=== PATIENT | female | born 1985 | race Caucasian/White ===

== ENCOUNTER 2017-11-10 15:40 | Emergency (ER) | payer OTHER ==
--- OUTSIDE RECORDS SUMMARY | 2017-11-10 15:42 | XMS REPORT | Clinical Summary ---
:1985 Author Organization [facility] Address [address] [place] [address] Care Team Providers Name Role Phone Kit Hayes PA-C Primary Care Provider Allergies Active Allergy Reactions Severity Noted Date Comments Levofloxacin 04/09/2017 Bupropion Hcl 04/09/2017 Current Medications Prescription Sig. Disp. Refills Start Date End Date Status traMADol (ULTRAM) 50 Take 1 tablet 15 tablet 0 04/09/2017 04/24/2017 mg tablet (50 mg total) by mouth every 6 (six) hours as needed for moderate pain for up to 15 days. ibuprofen Take 1 tablet 15 tablet 0 04/09/2017 04/14/2017 (ADVIL,MOTRIN) 800 MG (800 mg total) tablet by mouth every 8 (eight) hours as needed for mild pain for up to 5 days. Active Problems Not on file Encounters Date Type Specialty Care Team Description 04/09/2017 Emergency Emergency Medicine Kishor Mckeon Abdominal pain, unspecified location (Primary Dx); MD Clay Vaginal bleeding after 11/09/2016 Social History Tobacco Use Types Packs/Day Years Used Date Never Smoker Alcohol Use Drinks/Week oz/Week Comments No Sex Assigned at Date Recorded Not on file Last Filed Vital Signs Vital Sign Reading Time Taken Blood Pressure 117/72 04/09/2017 6:15 AM CDT Pulse 76 04/09/2017 6:15 AM CDT Temperature 36.8 C (98.2 F) 04/09/2017 6:07 AM CDT Respiratory Rate 16 04/09/2017 1:41 AM CDT Oxygen Saturation 98% 04/09/2017 6:15 AM CDT Inhaled Oxygen Concentration - - Weight - - Height 172.7 cm (5' 8") 04/09/2017 1:42 AM CDT Body Mass Index - - Plan of Treatment Health Maintenance Due Date Last Done Comments PAP SMEAR 2006 INFLUENZA VACCINE 03/21/2017 Results US Pelvic Transabdominal (04/09/2017 5:28 AM) Specimen Performing Laboratory [facility] [address] [place] [address] Narrative Examination:US PELVIC TRANSABDOMINAL, US PELVIC TRANSVAGINAL Clinical History: Non-OB evaluation of vaginal Bleeding, Torsion of Ovary, left ovarian cystworsening pain Comparison: None. Findings: Transabdominal and transvaginal pelvic ultrasound was performed. The uterus measured 5.2 x 5.6 x 3.7 cm. It is heterogeneous but no discrete measurable fibroid is seen. Endometrial side measures 0.4 cm. Right ovary measured 2.1 x 1.9 x 1.5 cm. The left ovary measures 2.5 x 2.0 x 1.6 cm. No adnexal mass or free fluid is seen. There is normal vascular flow seen in both ovaries. IMPRESSION: 1. No evidence of torsion. 2. Heterogeneous uterus but no discrete measurable fibroid is seen. [facility]-[id number] Procedure Note Interface, Radiology Results [facility] - 04/09/2017 5:38 AM CDT Examination: US PELVIC TRANSABDOMINAL, US PELVIC TRANSVAGINAL Clinical History: Non-OB evaluation of vaginal Bleeding, Torsion of Ovary, left ovarian cyst worsening pain Comparison: None. Findings: Transabdominal and transvaginal pelvic ultrasound was performed. The uterus measured 5.2 x 5.6 x 3.7 cm. It is heterogeneous but no discrete measurable fibroid is seen. Endometrial side measures 0.4 cm. Right ovary measured 2.1 x 1.9 x 1.5 cm. The left ovary measures 2.5 x 2.0 x 1.6 cm. No adnexal mass or free fluid is seen. There is normal vascular flow seen in both ovaries. IMPRESSION: 1. No evidence of torsion. 2. Heterogeneous uterus but no discrete measurable fibroid is seen. [facility]-[id number] US Pelvic Transvaginal (04/09/2017 5:28 AM) Specimen [facility]forming [facility] [address] [place] [address] Narrative Examination:US PELVIC TRANSABDOMINAL, US PELVIC TRANSVAGINAL Clinical History: Non-OB evaluation of vaginal Bleeding, Torsion of Ovary, left ovarian cystworsening pain Comparison: None. Findings: Transabdominal and transvaginal pelvic ultrasound was performed. The uterus measured 5.2 x 5.6 x 3.7 cm. It is heterogeneous but no discrete measurable fibroid is seen. Endometrial side measures 0.4 cm. Right ovary measured 2.1 x 1.9 x 1.5 cm. The left ovary measures 2.5 x 2.0 x 1.6 cm. No adnexal mass or free fluid is seen. There is normal vascular flow seen in both ovaries. IMPRESSION: 1. No evidence of torsion. 2. Heterogeneous uterus but no discrete measurable fibroid is seen. [facility]-[id number] Procedure Note Interface, Radiology Results Incoming - 04/09/2017 5:38 AM CDT Examination: US PELVIC TRANSABDOMINAL, US PELVIC TRANSVAGINAL Clinical History: Non-OB evaluation of vaginal Bleeding, Torsion of Ovary, left ovarian cyst worsening pain Comparison: None. Findings: Transabdominal and transvaginal pelvic ultrasound was performed. The uterus measured 5.2 x 5.6 x 3.7 cm. It is heterogeneous but no discrete measurable fibroid is seen. Endometrial side measures 0.4 cm. Right ovary measured 2.1 x 1.9 x 1.5 cm. The left ovary measures 2.5 x 2.0 x 1.6 cm. No adnexal mass or free fluid is seen. There is normal vascular flow seen in both ovaries. IMPRESSION: 1. No evidence of torsion. 2. Heterogeneous uterus but no discrete measurable fibroid is seen. [facility]-[id number] Urinalysis screen and microscopy, with reflex to culture (04/09/2017 2:01 AM) Component Value Ref Range Specimen site Clean catch Color, UA Red Appearance, UA Cloudy Specific gravity, UA 1.017 1.001 - 1.035 pH, UA 6.0 5.0 - 8.5 Protein, UA 2+ (A) Negative Glucose, UA Negative Negative Ketones, UA Negative Negative Bilirubin, UA Negative Negative Blood, UA Large (A) Negative Nitrite, UA Negative Negative Urobilinogen, UA <2.0 <2.0 Leukocyte esterase, UA Negative Negative Epithelial cells, UA 16 /HPF WBC, UA 5 (H) 0 - 4 /HPF RBC, UA >180 (H) 0 - 2 /HPF Bacteria, UA Few None seen Yeast, UA None seen Yeast with pseudohyphae, UA None seen Specimen Performing Laboratory Urine [facility] DEPARTMENT OF PATHOLOGY AND [facility] [address] [place] [address] Estimated GFR (04/09/2017 2:01 AM) Component Value Ref Range GFR Non Af Amer 83 mL/min/1.73 m2 GFR Af Amer >90 mL/min/1.73 m2 Comment: Chronic kidney disease: <60 mL/min/1.73m2 Kidney failure: <15 mL/min/1.73m2 The estimated GFR is calculated from the IDMS-traceable Modification of Diet in Renal Disease Equation. The accuracy of the calculation is poor when the creatinine is normal. Calculated values >90 mL/min/1.73m2 are not reported. This equation has not been validated in children (<18 years), women, the elderly (>70 years), or ethnic groups other than Caucasians and Americans. Specimen Performing Laboratory Plasma specimen [facility] DEPARTMENT OF PATHOLOGY AND GENOMIC MEDICINE [address] [place] [address] hCG qualitative, urine screen (04/09/2017 2:01 AM) Component Value Ref Range hCG qualitative, urine NegativeComment: Sensitivity of HCG test: 25 mIU/mL Specimen Performing Laboratory Urine [facility] DEPARTMENT OF PATHOLOGY AND [facility] [address] [place] [address] CBC with platelet and differential (04/09/2017 2:01 AM) Component Value Ref Range WBC 9.22 4.50 - 11.00 k/uL RBC 3.82 (L) 4.20 - 5.50 m/uL HGB 11.6 (L) 12.0 - 16.0 g/dL HCT 35.3 (L) 37.0 - 47.0 % MCV 92.4 82.0 - 100.0 fL MCH 30.4 27.0 - 34.0 pg MCHC 32.9 31.0 - 37.0 g/dL RDW - SD 42.5 37.0 - 55.0 fL MPV 9.3 8.8 - 13.2 fL Platelet count 305 150 - 400 k/uL Nucleated RBC 0.00 /100 WBC Neutrophils 48.2 39.0 - 69.0 % Lymphocytes 43.4 25.0 - 45.0 % Monocytes 5.5 0.0 - 10.0 % Eosinophils 2.2 0.0 - 5.0 % Basophils 0.5 0.0 - 1.0 % Immature granulocytes 0.2Comment: "Immature granulocytes" 0.0 - 1.0 % (promyelocytes, myelocytes, metamyelocytes) Specimen Performing Laboratory Blood [facility] DEPARTMENT OF PATHOLOGY AND [facility] [address] [place] [address] Comprehensive metabolic panel (04/09/2017 2:01 AM) Component Value Ref Range Sodium 139 135 - 148 mEq/L Potassium 3.8 3.5 - 5.0 mEq/L Chloride 104 98 - 112 mEq/L CO2 21 (L) 24 - 31 mEq/L Anion gap 14 7 - 15 mEq/L Comment: Starting from November , anion gap calculation no longer incorporates potassium. Please note the change. BUN 13 6 - 20 mg/dL Creatinine 0.8 0.5 - 0.9 mg/dL Glucose 93 65 - 99 mg/dL Calcium 9.7 8.3 - 10.2 mg/dL Protein 7.5 6.3 - 8.3 g/dL Comment: [place] 4.6-7.0 g/dL 1 week 4.4-7.6 g/dL 7 months-1year5.1-7.3 g/dL 1-2 years5.6-7.5 g/dL >3 years6.0-8.0 g/dL 18-150 6.3-8.3 g/dL Albumin 4.0 3.5 - 5.0 g/dL A/G ratio 1.1 0.7 - 3.8 Alkaline phosphatase 71 35 - 104 U/L AST 18 10 - 35 U/L ALT 14 5 - 50 U/L Total bilirubin <0.2 0.0 - 1.2 mg/dL Specimen Performing Laboratory Plasma specimen [facility] DEPARTMENT OF PATHOLOGY AND [facility] [address] [place] [address] Gram stain (04/09/2017 2:00 AM) Component Value Ref Range Gram stain result No WBC's Many Gram positive rods Comment: Specimen Information Specimen Source: Urine Specimen Site: See UA Specimen Performing Laboratory Urine [facility] DEPARTMENT OF PATHOLOGY AND [facility] [address] [place] [address] Urine culture (04/09/2017 2:00 AM) Component Value Ref Range Urine culture isolate Mixed Gram positive cristina 10-1 cfu/ml (A) Comment: Specimen Information Specimen Source: Urine Specimen Site: See UA Urine culture isolate Mixed Gram negative rods <10-1 cfu/ml (A) Specimen Performing Laboratory Urine [facility] DEPARTMENT OF PATHOLOGY AND GENOMIC MEDICINE [address] [place] [address] after 11/09/2016 Insurance Payer Benefit Plan / Group Subscriber ID Type Phone Address FOR LIFE xxxxxxxxx Home: [address] [facility] [phone] [address]
--- OUTSIDE RECORDS SUMMARY | 2017-11-10 15:43 | XMS REPORT ---
:1985 [facility] Address [address] [place] [address] [place] [address] Care Team Providers Name Role Phone BINTA FOLEY Unavailable Unavailable Problems This patient has no known problems. Allergies, Adverse Reactions, Alerts This patient has no known allergies or adverse reactions. Medications This patient has no known medications. Encounters Start End Encounter Admission Attending Care Care Encounter Date/Time Date/Time Type Type Clinicians Facility Department ID 2017-04-09 2017-04-09 Emergency [facility] [id number] 00:00:00 00:00:00 2017-04-09 2017-04-09 Emergency [facility] [id number] 00:00:00 00:00:00 2017-04-08 2017-04-08 [facility] [id number] 22:35:00 22:35:00 2017-04-08 2017-04-08 [facility] [id number] 00:00:00 00:00:00 Results Test Description Test Time Test Comments Text Results Atomic Results Result Comments HEMOGLOBIN A1C 2017-07-16 13:26:00 Test Item Value Reference Range Comments HEMOGLOBIN A1C (BEAKER) (test njuq=445) 5.2 % 4.3-6.1 CBC W/PLT COUNT & AUTO [id number] 09:42:00 Test Item Value Reference Range Comments WHITE BLOOD CELL COUNT (BEAKER) (test guvk=377) 8.3 K/ L 3.5-10.5 RED BLOOD CELL COUNT (BEAKER) (test kzsq=749) 3.47 M/ L 3.93-5.22 HEMOGLOBIN (BEAKER) (test jcfz=693) 10.3 GM/DL 11.2-15.7 HEMATOCRIT (BEAKER) (test ggfj=369) 32.8 % 34.1-44.9 MEAN CORPUSCULAR VOLUME (BEAKER) (test qqyp=176) 94.5 fL 79.4-94.8 MEAN CORPUSCULAR HEMOGLOBIN (BEAKER) (test 29.7 pg 25.6-32.2 rsqm=678) MEAN CORPUSCULAR HEMOGLOBIN CONC (BEAKER) (test 31.4 GM/DL 32.2-35.5 ibnp=614) RED CELL DISTRIBUTION WIDTH (BEAKER) (test 13.1 % 11.7-14.4 xule=807) PLATELET COUNT (BEAKER) (test wbsw=329) 284 K/CU MM 150-450 MEAN PLATELET VOLUME (BEAKER) (test qgsn=351) 9.7 fL 9.4-12.3 NUCLEATED RED BLOOD CELLS (BEAKER) (test 0 /100 WBC 0-0 kwzy=881) IMMATURE GRANULOCYTES-RELATIVE PERCENT (BEAKER) 0 % 0-1 (test cvkl=9439) (MANUAL DIFFERENTIAL)2017-07-16 09:42:00 Test Item Value Reference Range Comments NEUTROPHILS - REL (DIFF) (BEAKER) (test rsuk=6548) 36 % LYMPHOCYTES - REL (DIFF) (BEAKER) (test skow=6501) 53 % MONOCYTES - REL (DIFF) (BEAKER) (test cfwo=6022) 4 % EOSINOPHILS - REL (DIFF) (BEAKER) (test htcm=1113) 2 % BASOPHILS - REL (DIFF) (BEAKER) (test prcw=6869) 2 % ATYPICAL LYMPHOCYTE - REL (DIFF) (BEAKER) (test 3 % 0-0 xnfa=189) NEUTROPHILS - ABS (DIFF) (BEAKER) (test cmqe=3003) 2.99 K/ L 1.80-8.00 LYMPHOCYTES - ABS (DIFF) (BEAKER) (test lnwi=0002) 4.40 K/ L 1.48-4.50 MONOCYTES - ABS (DIFF) (BEAKER) (test owvk=7188) 0.33 K/ L 0.00-1.30 EOSINOPHILS - ABS (DIFF) (BEAKER) (test fqtm=3151) 0.17 K/ L 0.00-0.50 BASOPHILS - ABS (DIFF) (BEAKER) (test azhu=1499) 0.17 K/ L 0.00-0.20 ATYPICAL LYMPHOCYTES - ABS (DIFF) (BEAKER) (test 0.25 K/ L 0.00-0.00 rvoc=094) TOTAL COUNTED (BEAKER) (test kxgt=2173) 100 WBC MORPHOLOGY (BEAKER) (test kksw=887) Normal PLT MORPHOLOGY (BEAKER) (test tvyd=023) Normal RBC MORPHOLOGY (BEAKER) (test lget=078) Normal [id number] 07:11:00 Test Item Value Reference Range Comments MAGNESIUM (BEAKER) (test kdhi=496) 1.5 mg/dL 1.6-2.6 BASIC METABOLIC [id number] 07:11:00 Test Item Value Reference Range Comments SODIUM (BEAKER) (test 140 meq/L 136-145 xcqc=466) POTASSIUM (BEAKER) (test 3.6 meq/L 3.5-5.1 sfic=557) CHLORIDE (BEAKER) (test 119 meq/L 98-107 djws=247) CO2 (BEAKER) (test 16 meq/L 22-29 clea=494) BLOOD UREA NITROGEN 7 mg/dL 7-21 (BEAKER) (test tkpp=726) CREATININE (BEAKER) (test 0.59 mg/dL 0.57-1.25 otpy=102) GLUCOSE RANDOM (BEAKER) 89 mg/dL 70-105 (test vkwb=388) CALCIUM (BEAKER) (test 8.3 mg/dL 8.4-10.2 nwpt=467) EGFR (BEAKER) (test 118 mL/min/1.73 sq m ESTIMATED GFR IS NOT kmvd=9949) ACCURATE CREATININE CLEARANCE IN PREDICTING GLOMERULAR FILTRATION RATE. ESTIMATED GFR IS NOT APPLICABLE FOR DIALYSIS PATIENTS. LIPID [id number] 07:11:00 Test Item Value Reference Range Comments TRIGLYCERIDES (BEAKER) (test mkmz=119) 75 mg/dL CHOLESTEROL (BEAKER) (test mpwu=353) 173 mg/dL HDL CHOLESTEROL (BEAKER) (test rluw=603) 33 mg/dL LDL CHOLESTEROL CALCULATED (BEAKER) (test 125 mg/dL dxfm=866) Triglyceride Reference Range: Low Risk <150 Borderline 150- 199 High Risk 200-499 Very High Risk >=500Cholesterol Reference Range: Low Risk <200 Borderline 200-239 High Risk > 240HDL Cholesterol Reference Range: Low Risk >=60 High Risk <40LDL Cholesterol Reference Range: Optimal <100 Near Optimal 100-129 Borderline 130-159 High 160-189 Very High >=190TROPONIN [id number] 06:34:00 Test Item Value Reference Range Comments TROPONIN I (KRISTI) (test zzsx=672) < ng/mL 0.00-0.03 Troponin I (TnI) levels must be interpreted in the context of the presenting symptoms and the clinical findings. Elevated TnI levels indicate myocardial damage, but are not specific for ischemic heart disease. Elevated TnI levels are seen in patients with other cardiac conditions (including myocarditis and congestive heart failure), and slight TnI elevations occur in patients with other conditions, including sepsis, renal failure, acidosis, acute neurological disease, and persistent tachyarrhythmia.TROPONIN [id number] 23:58:00 Test Item Value Reference Range Comments TROPONIN I (KRISTI) (test pwuc=219) < ng/mL 0.00-0.03 Troponin I (TnI) levels must be interpreted in the context of the presenting symptoms and the clinical findings. Elevated TnI levels indicate myocardial damage, but are not specific for ischemic heart disease. Elevated TnI levels are seen in patients with other cardiac conditions (including myocarditis and congestive heart failure), and slight TnI elevations occur in patients with other conditions, including sepsis, renal failure, acidosis, acute neurological disease, and persistent tachyarrhythmia.
--- NOTE | 2017-11-10 16:23 | EDPHYS ---
Physician Documentation [facility] Name: Natasha Spann Age: 32 yrs Sex: Female : 1985 Arrival Date: 11/10/2017 Time: 15:47 Bed 16 Private MD: ED Physician Gregor Santo HPI: 11/10 16:06 This 32 yrs old Female presents to ER via Ambulatory with complaints of Flu kb Symptoms. 16:06 The patient presents with sore throat. The patient describes throat pain as constant. kb Onset: The symptoms/episode began/occurred last week. Severity of symptoms: At their worst the symptoms were moderate, in the emergency department the symptoms are unchanged. Modifying factors: The symptoms are alleviated by nothing, the symptoms are aggravated by swallowing, Patient's oral intake status: good Denies contact with similarly ill indivduals. Associated signs and symptoms: Pertinent positives: cough, flu-like symptoms, myalgias, Sore throat. The patient has not experienced similar symptoms in the past. The patient has not recently seen a physician. Historical: - Allergies: 15:52 Wellbutrin; ss 15:52 Levofloxacin; ss 15:52 bupropion HCl; ss - PMHx: 15:52 Anxiety; Depression; Endometrosis; Gastric Reflux; MRSA; osteomylitis; Ovarian cyst; ss Bipolar disorder; - PSHx: 15:52 Left BKA; muscle flap from back; ss - Immunization history:: Adult Immunizations unknown. - Social history:: Smoking status: Patient uses tobacco products, smokes one-half pack cigarettes per day. ROS: 16:06 Neck: Negative for injury, pain, and swelling, Cardiovascular: Negative for chest pain, kb palpitations, and edema, Abdomen/GI: Negative for abdominal pain, nausea, vomiting, diarrhea, and constipation, Back: Negative for injury and pain, MS/Extremity: Negative for injury and deformity, Skin: Negative for injury, rash, and discoloration, Neuro: Negative for headache, weakness, numbness, tingling, and seizure. 16:06 Constitutional: Positive for body aches, chills, fatigue, malaise, Negative for fever, poor PO intake, weight loss. 16:06 ENT: Positive for rhinorrhea, sore throat. 16:06 Respiratory: Positive for cough, Negative for dyspnea on exertion, hemoptysis, orthopnea, pleurisy, shortness of breath, sputum production, wheezing. Exam: 16:07 Constitutional: This is a well developed, well nourished patient who is awake, alert, kb and in no acute distress. Head/Face: Normocephalic, atraumatic. ENT: Nares patent. No nasal discharge, no septal abnormalities noted. Tympanic membranes are normal and external auditory canals are clear. Oropharynx with no redness, swelling, or masses, exudates, or evidence of obstruction, uvula midline. Mucous membranes moist. Neck: Trachea midline, no thyromegaly or masses palpated, and no cervical lymphadenopathy. Supple, full range of motion without nuchal rigidity, or vertebral point tenderness. No Meningismus. Chest/axilla: Normal chest wall appearance and motion. Nontender with no deformity. No lesions are appreciated. Cardiovascular: Regular rate and rhythm with a normal S1 and S2. No gallops, murmurs, or rubs. Normal PMI, no JVD. No pulse deficits. Respiratory: Lungs have equal breath sounds bilaterally, clear to auscultation and percussion. No rales, rhonchi or wheezes noted. No increased work of breathing, no retractions or nasal flaring. Abdomen/GI: Soft, non-tender, with normal bowel sounds. No distension or tympany. No guarding or rebound. No evidence of tenderness throughout. Skin: Warm, dry with normal turgor. Normal color with no rashes, no lesions, and no evidence of cellulitis. MS/ Extremity: Pulses equal, no cyanosis. Neurovascular intact. Full, normal range of motion. Neuro: Awake and alert, GCS 15, oriented to person, place, time, and situation. Cranial nerves II-XII grossly intact. Motor strength 5/5 in all extremities. Sensory grossly intact. Cerebellar exam normal. Normal gait. Vital Signs: 15:52 BP 126 / 87; Pulse 94; Resp 16; Temp 98.2(TE); Pulse Ox 100% on R/A; Weight 81.65 kg; ss Height 5 ft. 8 in. (172.72 cm); Pain 8/10; 16:40 BP 118 / 78; Pulse 91; Resp 18; Temp 97.9; Pulse Ox 99% on R/A; ph 15:52 Body Mass Index 27.37 (81.65 kg, 172.72 cm) MDM: 15:53 Patient medically screened. kb 16:07 Data reviewed: vital signs, nurses notes. Data interpreted: Pulse oximetry: on room air kb is 100 %. Interpretation: normal. 16:21 Counseling: I had a detailed discussion with the patient and/or guardian regarding: the kb historical points, exam findings, and any diagnostic results supporting the discharge/admit diagnosis, lab results, the need for outpatient follow up, a family practitioner, to return to the emergency department if symptoms worsen or persist or if there are any questions or concerns that arise at home. 11/10 15:54 Order name: Flu kb 11/10 15:54 Order name: Strep kb 11/10 16:19 Order name: Influenza Screen (A ; Complete Time: 16:20 EDMS 11/10 16:19 Order name: Group A Streptococcus Rapid Sc; Complete Time: 16:20 EDMS Administered Medications: No medications were administered Disposition: 17:54 Co-signature as Attending Physician, Gregor Santo MD. rn Disposition: 11/10/17 16:22 Discharged to Home. Impression: Acute pharyngitis. - Condition is Stable. - Discharge Instructions: Pharyngitis, Eaxy-nf-Rwje, Viral Infections, Cotr-Uj-Guqy. - Medication Reconciliation Form, Thank You Letter, Antibiotic Education, Prescription Opioid Use form. - Follow up: Emergency Department; When: As needed; Reason: Worsening of condition. Follow up: Private Physician; When: 2 - 3 days; Reason: Recheck today's complaints, Continuance of care, Re-evaluation by your physician. Signatures: Dispatcher [employer] EDReva Cuenca, HAND STRIPPER-C HAND STRIPPER-Gregor Goode MD MD rn Smirch, Shelby, RN RN ss Hall, Patricia, RN RN ph
--- NOTE | 2017-11-10 16:23 | ER ---
Nurse's Notes [facility] Name: Natasha Spann Age: 32 yrs Sex: Female : 1985 Arrival Date: 11/10/2017 Time: 15:47 Bed 16 Private MD: Diagnosis: Acute pharyngitis Presentation: 11/10 15:50 Presenting complaint: Patient states: sore throat and body aches that began 3 days ago. ss Unknown fever. Transition of care: patient was not received from another setting of care. Onset of symptoms was November 07, 2017. Care prior to arrival: None. 15:50 Method Of Arrival: Ambulatory ss 15:50 Acuity: EMILY 4 ss Historical: - Allergies: 15:52 Wellbutrin; ss 15:52 Levofloxacin; ss 15:52 bupropion HCl; ss - PMHx: 15:52 Anxiety; Depression; Endometrosis; Gastric Reflux; MRSA; osteomylitis; Ovarian cyst; ss Bipolar disorder; - PSHx: 15:52 Left BKA; muscle flap from back; ss - Immunization history:: Adult Immunizations unknown. - Social history:: Smoking status: Patient uses tobacco products, smokes one-half pack cigarettes per day. Screenin:14 Abuse screen: Denies threats or abuse. Denies injuries from another. Nutritional ph screening: No deficits noted. Tuberculosis screening: No symptoms or risk factors identified. Fall Risk None identified. Assessment: 16:00 General: Appears in no apparent distress. comfortable, well groomed, Behavior is calm, ph cooperative, appropriate for age, Reports fever for 2-3 days. Pain: Complains of pain in throat. Neuro: Level of Consciousness is awake, alert, obeys commands, Oriented to person, place, time, situation. Cardiovascular: Capillary refill < 3 seconds Patient's skin is warm and dry. Respiratory: Airway is patent Respiratory effort is even, unlabored, Respiratory pattern is regular, symmetrical, Breath sounds are clear bilaterally. Denies cough, shortness of breath. GI: No signs and/or symptoms were reported involving the gastrointestinal system. Derm: Skin is intact, is healthy with good turgor, Skin is pink, warm \T\ dry. Musculoskeletal: Circulation, motion, and sensation intact. Range of motion: intact in all extremities. Vital Signs: 15:52 BP 126 / 87; Pulse 94; Resp 16; Temp 98.2(TE); Pulse Ox 100% on R/A; Weight 81.65 kg; Height 5 ft. 8 in. (172.72 cm); Pain 8/10; 16:40 BP 118 / 78; Pulse 91; Resp 18; Temp 97.9; Pulse Ox 99% on R/A; ph 15:52 Body Mass Index 27.37 (81.65 kg, 172.72 cm) ED Course: 15:47 Patient arrived in ED. sb2 15:51 Triage completed. ss 15:52 Arm band placed on right wrist. ss 15:53 [facility]ales FNP-C [facility]. kb 15:53 Gregor Santo MD is Attending Physician. kb 16:10 Sylvia Wall, RN is Primary Nurse. ph 16:40 Patient has correct armband on for positive identification. Bed in low position. Call ph light in reach. Side rails up X 1. 16:43 No provider procedures requiring assistance completed. Patient did not have IV access ph during this emergency room visit. Administered Medications: No medications were administered Outcome: 16:22 Discharge ordered by MD. kb 16:43 Patient left the ED. ph 16:43 Discharged to home ambulatory. ph 16:43 Condition: good 16:43 Discharge instructions given to patient, Instructed on discharge instructions, follow up and referral plans. Demonstrated understanding of instructions, follow-up care. Signatures: Reva Morales FNP-C FNP-Ckb Smirch, Shelby, RN RN Sylvia Wall RN RN Mone Sr sb2
[2017-11-10 17:03] VITALS: BP 126/87; TEMP 98.2; O2SAT 100
== END 2017-11-10 16:43 | disposition home or self-care (01) ==
LOC: ER 15:40
DX: J02.9 Acute pharyngitis, unspecified (principal); F17.210 Nicotine dependence, cigarettes, uncomplicated; Z88.3 Allergy status to other anti-infective agents; Z88.8 Allergy status to other drugs, medicaments and biological substances; Z91.048 Other nonmedicinal substance allergy status
CPT/HCPCS: 87070; 87081; 87804; 99281

== ENCOUNTER 2017-11-13 | Emergency (ER) | payer OTHER ==
--- OUTSIDE RECORDS SUMMARY | 2017-11-13 14:59 | XMS REPORT | Clinical Summary ---
:1985 Author Organization [facility] Address [address] [place] [address] Care Team Providers Name Role Phone Kit [...] (Primary Dx); MD Clay Vaginal bleeding after 11/12/2016 Social History Tobacco Use Types Packs/Day Years [...] Transabdominal (04/09/2017 5:28 AM) Specimen Performing Laboratory [facility] [address] [place] [address] Narrative Examination:US PELVIC TRANSABDOMINAL, US PELVIC TRANSVAGINAL [...] but no discrete measurable fibroid is seen. [facility]-[id number] Procedure Note Interface, Radiology Results [facility] - 04/09/2017 5:38 AM CDT Examination: US [...] but no discrete measurable fibroid is seen. [facility]-[id number] US Pelvic Transvaginal (04/09/2017 5:28 AM) Specimen Performing Laboratory [facility] [address] [place] [address] Narrative Examination:US PELVIC TRANSABDOMINAL, US PELVIC TRANSVAGINAL [...] but no discrete measurable fibroid is seen. [facility]-[id number] Procedure Note Interface, Radiology Results Incoming - [...] but no discrete measurable fibroid is seen. [facility]-[id number] Urinalysis screen and microscopy, with reflex to [...] UA None seen Specimen Performing Laboratory Urine [facility] DEPARTMENT OF PATHOLOGY AND [facility] [address] [place] [phone] Estimated GFR (04/09/2017 2:01 AM) Component Value [...] and Americans. Specimen Performing Laboratory Plasma specimen [facility] DEPARTMENT OF PATHOLOGY AND GENOMIC MEDICINE [address] [place] [address] hCG qualitative, urine screen (04/09/2017 2:01 AM) Component Value Ref Range hCG qualitative, urine NegativeComment: Sensitivity of HCG test: 25 mIU/mL Specimen Performing Laboratory Urine [facility] DEPARTMENT OF PATHOLOGY AND [facility] [address] [place] [address] CBC with platelet and differential (04/09/2017 2:01 [...] (promyelocytes, myelocytes, metamyelocytes) Specimen Performing Laboratory Blood [facility] DEPARTMENT OF PATHOLOGY AND [facility] [address] [place] [address] Comprehensive metabolic panel (04/09/2017 2:01 AM) Component [...] Protein 7.5 6.3 - 8.3 g/dL Comment: [place] 4.6-7.0 g/dL 1 week 4.4-7.6 g/dL 7 months-1year5.1-7.3 g/dL 1-2 years5.6-7.5 g/dL >3 years6.0-8.0 g/dL 18-150 6.3-8.3 g/dL Albumin 4.0 3.5 - 5.0 g/dL A/G ratio 1.1 0.7 - 3.8 Alkaline phosphatase 71 35 - 104 U/L AST 18 10 - 35 U/L ALT 14 5 - 50 U/L Total bilirubin <0.2 0.0 - 1.2 mg/dL Specimen Performing Laboratory Plasma specimen [facility] DEPARTMENT OF PATHOLOGY AND [facility] [address] [place] [address] Gram stain (04/09/2017 2:00 AM) Component Value Ref Range Gram stain result No WBC's Many Gram positive rods Comment: Specimen Information Specimen Source: Urine Specimen Site: See UA Specimen Performing Laboratory Urine [facility] DEPARTMENT OF PATHOLOGY AND [facility] [address] [place] [address] Urine culture (04/09/2017 2:00 AM) Component Value Ref Range Urine culture isolate Mixed Gram positive cristina 10-1 cfu/ml (A) Comment: Specimen Information Specimen Source: Urine Specimen Site: See UA Urine culture isolate Mixed Gram negative rods <10-1 cfu/ml (A) Specimen Performing Laboratory Urine [facility] DEPARTMENT OF PATHOLOGY AND GENOMIC MEDICINE [address] [place] [address] after 11/12/2016 Insurance Payer Benefit Plan / Group Subscriber ID Type Phone Address FOR LIFE xxxxxxxxx Home: [address] [facility] [phone] [address]
--- OUTSIDE RECORDS SUMMARY | 2017-11-13 15:00 | XMS REPORT ---
:1985 Author Organization [facility] Address [address] [place] [address] [place] [address] Care Team Providers Name Role Phone BINTA FOLEY Unavailable Unavailable Problems This patient has no known problems. Allergies, Adverse Reactions, Alerts This patient has no known allergies or adverse reactions. Medications This patient has no known medications. Encounters Start End Encounter Admission Attending Care Care Encounter Date/Time Date/Time Type Type Clinicians Facility Department ID 2017-04-09 2017-04-09 Emergency [facility] [id number] 00:00:00 00:00:00 2017-04-09 2017-04-09 Emergency [facility] [id number] 00:00:00 00:00:00 2017-04-08 2017-04-08 [facility] [id number] 22:35:00 22:35:00 2017-04-08 2017-04-08 [facility] [id number] 00:00:00 00:00:00 Results Test Description Test Time Test Comments Text Results Atomic Results Result Comments HEMOGLOBIN A1C 2017-07-16 13:26:00 Test Item Value Reference Range Comments HEMOGLOBIN A1C (BEAKER) (test atoy=229) 5.2 % 4.3-6.1 CBC W/PLT COUNT & AUTO [id number] 09:42:00 Test Item Value Reference Range Comments WHITE BLOOD CELL COUNT (BEAKER) (test kzvz=282) 8.3 K/ L 3.5-10.5 RED BLOOD CELL COUNT (BEAKER) (test rxjh=437) 3.47 M/ L 3.93-5.22 HEMOGLOBIN (BEAKER) (test hfoc=927) 10.3 GM/DL 11.2-15.7 HEMATOCRIT (BEAKER) (test jfzi=872) 32.8 % 34.1-44.9 MEAN CORPUSCULAR VOLUME (BEAKER) (test tcxi=613) 94.5 fL 79.4-94.8 MEAN CORPUSCULAR HEMOGLOBIN (BEAKER) (test 29.7 pg 25.6-32.2 nghm=620) MEAN CORPUSCULAR HEMOGLOBIN CONC (BEAKER) (test 31.4 GM/DL 32.2-35.5 eulr=854) RED CELL DISTRIBUTION WIDTH (BEAKER) (test 13.1 % 11.7-14.4 jiwq=980) PLATELET COUNT (BEAKER) (test wjqu=963) 284 K/CU MM 150-450 MEAN PLATELET VOLUME (BEAKER) (test oxvs=865) 9.7 fL 9.4-12.3 NUCLEATED RED BLOOD CELLS (BEAKER) (test 0 /100 WBC 0-0 lqgt=649) IMMATURE GRANULOCYTES-RELATIVE PERCENT (BEAKER) 0 % 0-1 (test kkwj=3446) (MANUAL DIFFERENTIAL)2017-07-16 09:42:00 Test Item Value Reference Range Comments NEUTROPHILS - REL (DIFF) (BEAKER) (test eojp=7171) 36 % LYMPHOCYTES - REL (DIFF) (BEAKER) (test tgro=9868) 53 % MONOCYTES - REL (DIFF) (BEAKER) (test pgrs=2394) 4 % EOSINOPHILS - REL (DIFF) (BEAKER) (test dqfk=5019) 2 % BASOPHILS - REL (DIFF) (BEAKER) (test qbio=4781) 2 % ATYPICAL LYMPHOCYTE - REL (DIFF) (BEAKER) (test 3 % 0-0 ejiv=816) NEUTROPHILS - ABS (DIFF) (BEAKER) (test ltxm=3803) 2.99 K/ L 1.80-8.00 LYMPHOCYTES - ABS (DIFF) (BEAKER) (test zmyz=8467) 4.40 K/ L 1.48-4.50 MONOCYTES - ABS (DIFF) (BEAKER) (test wnhn=9273) 0.33 K/ L 0.00-1.30 EOSINOPHILS - ABS (DIFF) (BEAKER) (test zzqk=2746) 0.17 K/ L 0.00-0.50 BASOPHILS - ABS (DIFF) (BEAKER) (test gpfg=3068) 0.17 K/ L 0.00-0.20 ATYPICAL LYMPHOCYTES - ABS (DIFF) (BEAKER) (test 0.25 K/ L 0.00-0.00 ilbx=453) TOTAL COUNTED (BEAKER) (test mrql=8386) 100 WBC MORPHOLOGY (BEAKER) (test biko=488) Normal PLT MORPHOLOGY (BEAKER) (test zcwy=849) Normal RBC MORPHOLOGY (BEAKER) (test jryc=678) Normal [id number] 07:11:00 Test Item Value Reference Range Comments MAGNESIUM (BEAKER) (test uwhq=318) 1.5 mg/dL 1.6-2.6 BASIC METABOLIC [id number] 07:11:00 Test Item Value Reference Range Comments SODIUM (BEAKER) (test 140 meq/L 136-145 bnkf=571) POTASSIUM (BEAKER) (test 3.6 meq/L 3.5-5.1 vqqu=487) CHLORIDE (BEAKER) (test 119 meq/L 98-107 pdyh=672) CO2 (BEAKER) (test 16 meq/L 22-29 dzsz=011) BLOOD UREA NITROGEN 7 mg/dL 7-21 (BEAKER) (test kcby=638) CREATININE (BEAKER) (test 0.59 mg/dL 0.57-1.25 bmlf=629) GLUCOSE RANDOM (BEAKER) 89 mg/dL 70-105 (test mtan=858) CALCIUM (BEAKER) (test 8.3 mg/dL 8.4-10.2 uttc=370) EGFR (BEAKER) (test 118 mL/min/1.73 sq m ESTIMATED GFR IS NOT fosy=6271) ACCURATE CREATININE CLEARANCE IN PREDICTING GLOMERULAR FILTRATION RATE. ESTIMATED GFR IS NOT APPLICABLE FOR DIALYSIS PATIENTS. LIPID [id number] 07:11:00 Test Item Value Reference Range Comments TRIGLYCERIDES (BEAKER) (test bluj=063) 75 mg/dL CHOLESTEROL (BEAKER) (test kozi=888) 173 mg/dL HDL CHOLESTEROL (BEAKER) (test voys=684) 33 mg/dL LDL CHOLESTEROL CALCULATED (BEAKER) (test 125 mg/dL mfgu=676) Triglyceride Reference Range: Low Risk <150 Borderline 150- 199 High Risk 200-499 Very High Risk >=500Cholesterol Reference Range: Low Risk <200 Borderline 200-239 High Risk > 240HDL Cholesterol Reference Range: Low Risk >=60 High Risk <40LDL Cholesterol Reference Range: Optimal <100 Near Optimal 100-129 Borderline 130-159 High 160-189 Very High >=190TROPONIN [id number] 06:34:00 Test Item Value Reference Range Comments TROPONIN I (KRISTI) (test hyem=915) < ng/mL 0.00-0.03 Troponin I (TnI) levels [...] acidosis, acute neurological disease, and persistent tachyarrhythmia.TROPONIN [id number] 23:58:00 Test Item Value Reference Range Comments TROPONIN I (KRISTI) (test tqlk=526) < ng/mL 0.00-0.03 Troponin I (TnI) levels [...]
--- NOTE | 2017-11-13 16:05 | ER ---
Nurse's Notes [facility] Name: Natasha Spann Age: 32 yrs Sex: Female : 1985 Arrival Date: 11/13/2017 Time: 15:00 Bed 11 Private MD: Diagnosis: Abrasion of lower leg Presentation: 11/13 15:11 Presenting complaint: Patient states: i noticed this morning, i have a wound on my L hj leg, it is bleeding and draining; denies fever and chills;. Transition of care: patient was not received from another setting of care. Onset of symptoms was November 13, 2017. Care prior to arrival: None. 15:11 Method Of Arrival: Ambulatory hj 15:11 Acuity: EMILY 4 hj Triage Assessment: 15:13 General: Appears in no apparent distress. uncomfortable, Behavior is calm, cooperative, hj appropriate for age. Pain: Complains of pain in left leg Pain currently is 8 out of 10 on a pain scale. CUT OFF [place] [employer]: 15:13 LMP 10/28/2017 Historical: - Allergies: 15:12 bupropion HCl; hj 15:12 Levofloxacin; hj 15:12 Wellbutrin; hj - Home Meds: 15:12 aripiprazole 15 mg Oral tab 1 tab nightly [Active]; duloxetine 30 mg Oral cpDR 1 cap hj once daily [Active]; hydroxyzine HCl 25 mg Oral tab 4 times per day [Active]; omeprazole 40 mg Oral cpDR 1 cap once daily [Active]; propranolol 20 mg Oral tab 1 tab 2 times per day [Active]; topiramate 100 mg Oral tab 1 tab 2 times per day [Active]; trazodone 150 mg Oral tab 1 tab night prn [Active]; - PMHx: 15:12 Anxiety; Bipolar disorder; Depression; Endometrosis; Gastric Reflux; MRSA; hj osteomylitis; Ovarian cyst; - PSHx: 15:12 Left BKA; muscle flap from back; hj - Immunization history:: Pneumococcal vaccine is not up to date, Flu vaccine is not up to date. - Social history:: Smoking status: Patient uses tobacco products, smokes one-half pack cigarettes per day. Screenin:01 Abuse screen: Denies threats or abuse. Nutritional screening: No deficits noted. kb1 Tuberculosis screening: No symptoms or risk factors identified. Fall Risk None identified. Assessment: 16:01 General: Appears in no apparent distress. Behavior is calm, cooperative. Pain: kb1 Complains of pain in left stump. Neuro: Level of Consciousness is awake, alert, obeys commands, Oriented to person, place, time, situation. Cardiovascular: Patient's skin is warm and dry. Respiratory: Airway is patent. GI: No signs and/or symptoms were reported involving the gastrointestinal system. : No signs and/or symptoms were reported regarding the genitourinary system. Derm: No S/S of infection noted. Reports "drainage" from left stump. Vital Signs: 15:13 BP 115 / 67; Pulse 83; Resp 18; Temp 98.8(TE); Pulse Ox 98% on R/A; Weight 81.65 kg; hj Height 5 ft. 8 in. (172.72 cm); Pain 8/10; 15:13 Body Mass Index 27.37 (81.65 kg, 172.72 cm) ED Course: 15:00 Patient arrived in ED. rg4 15:11 Triage completed. 15:13 Arm band placed on left wrist. 15:39 Jamal Rodas NP is PHCP. pm1 15:39 Ole Epstein MD is Attending Physician. pm1 16:00 Ursula Lawson RN is Primary Nurse. kb1 16:01 Patient has correct armband on for positive identification. Call light in reach. kb1 sitting in chair, wheels locked. 16:01 No provider procedures requiring assistance completed. Patient did not have IV access kb1 during this emergency room visit. 17:13 Crutch training done. kb1 Administered Medications: No medications were administered Outcome: 16:04 Discharge ordered by . pm1 17:13 Discharged to home ambulatory, with crutches. kb1 17:13 Condition: stable 17:13 Discharge instructions given to patient, Instructed on discharge instructions, follow up and referral plans. medication usage, crutch walking, Demonstrated understanding of instructions, follow-up care, crutch walking, Prescriptions given X 1. 17:14 Patient left the ED. kb1 Signatures: Shawn Beltran RN RN Jamal Rodas NP CLERK SPECIALIST pm1 Giuliana Wilcox rg4 Ursula Lawson RN RN kb1 Corrections: (The following items were deleted from the chart) 15:14 15:13 Pulse 83bpm; Resp 18bpm; Pulse Ox 98% RA; Temp 98.8F Temporal; 81.65 kg; Height 5 hj ft. 8 in.; BMI: 27.3; Pain 8/10; hj 17:14 17:13 Discharged to home ambulatory, with crutches, kb1 kb1
--- NOTE | 2017-11-13 16:05 | EDPHYS ---
Physician Documentation [facility] Name: Natasha Spann Age: 32 yrs Sex: Female : 1985 Arrival Date: 11/13/2017 Time: 15:00 Bed 11 Private MD: ED Physician Ole Epstein HPI: 11/13 17:00 This 32 yrs old Female presents to ER via Ambulatory with complaints of pm1 Abscess. 17:00 The patient presents with an abscess of the left BKA. Description: draining, bleeding. pm1 Onset: The symptoms/episode began/occurred this morning. Possible cause(s): unknown. Associated signs and symptoms: Pertinent positives: discharge, Pertinent negatives: erythema, fever, swelling. Modifying factors: the symptoms are alleviated by nothing, the symptoms are aggravated by touching. Severity of symptoms: in the emergency department the symptoms are unchanged. The patient has not experienced similar symptoms in the past. The patient has not recently seen a physician. Patient reports bleeding and discharge from below knee amputation stump. Patient denies any injury. 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 Historical: - Allergies: 15:12 bupropion HCl; hj 15:12 Levofloxacin; hj 15:12 Wellbutrin; hj - Home Meds: 15:12 aripiprazole 15 mg Oral tab 1 tab nightly [Active]; duloxetine 30 mg Oral cpDR 1 cap hj once daily [Active]; hydroxyzine HCl 25 mg Oral tab 4 times per day [Active]; omeprazole 40 mg Oral cpDR 1 cap once daily [Active]; propranolol 20 mg Oral tab 1 tab 2 times per day [Active]; topiramate 100 mg Oral tab 1 tab 2 times per day [Active]; trazodone 150 mg Oral tab 1 tab night prn [Active]; - PMHx: 15:12 Anxiety; Bipolar disorder; Depression; Endometrosis; Gastric Reflux; MRSA; hj osteomylitis; Ovarian cyst; - PSHx: 15:12 Left BKA; muscle flap from back; hj - Immunization history:: Pneumococcal vaccine is not up to date, Flu vaccine is not up to date. - Social history:: Smoking status: Patient uses tobacco products, smokes one-half pack cigarettes per day. ROS: 17:00 Constitutional: Negative for fever, chills, and weight loss, Eyes: Negative for injury, pm1 pain, redness, and discharge, ENT: Negative for injury, pain, and discharge, Neck: Negative for injury, pain, and swelling, Cardiovascular: Negative for chest pain, palpitations, and edema, Respiratory: Negative for shortness of breath, cough, wheezing, and pleuritic chest pain, Abdomen/GI: Negative for abdominal pain, nausea, vomiting, diarrhea, and constipation, Back: Negative for injury and pain, : Negative for injury, bleeding, discharge, and swelling, MS/Extremity: Negative for injury and deformity. 17:00 Neuro: Negative for headache, weakness, numbness, tingling, and seizure. 17:00 Skin: Positive for abscess, of the left BKA stump. Exam: 17:00 Constitutional: This is a well developed, well nourished patient who is awake, alert, pm1 and in no acute distress. Head/Face: Normocephalic, atraumatic. Neck: Trachea midline, no thyromegaly or masses palpated, and no cervical lymphadenopathy. Supple, full range of motion without nuchal rigidity, or vertebral point tenderness. No Meningismus. Chest/axilla: Normal chest wall appearance and motion. Nontender with no deformity. No lesions are appreciated. Cardiovascular: Regular rate and rhythm with a normal S1 and S2. No gallops, murmurs, or rubs. Normal PMI, no JVD. No pulse deficits. Respiratory: Lungs have equal breath sounds bilaterally, clear to auscultation and percussion. No rales, rhonchi or wheezes noted. No increased work of breathing, no retractions or nasal flaring. Abdomen/GI: Soft, non-tender, with normal bowel sounds. No distension or tympany. No guarding or rebound. No evidence of tenderness throughout. Back: No spinal tenderness. No costovertebral tenderness. Full range of motion. 17:00 Skin: abscess, not appreciated, cellulitis, is not appreciated, injury, abrasion(s), very small abrasion noted, of the left below knee amputation stump, no redness or warmth. 17:00 Neuro: Orientation: is normal, Motor: is normal, Sensation: is normal, no obvious gross deficits. Vital Signs: 15:13 BP 115 / 67; Pulse 83; Resp 18; Temp 98.8(TE); Pulse Ox 98% on R/A; Weight 81.65 kg; hj Height 5 ft. 8 in. (172.72 cm); Pain 8/10; 15:13 Body Mass Index 27.37 (81.65 kg, 172.72 cm) MDM: 15:40 Patient medically screened. pm1 16:03 Data reviewed: vital signs. Data interpreted: Pulse oximetry: on room air is 98 %. pm1 Interpretation: normal. Counseling: I had a detailed discussion with the patient and/or guardian regarding: the historical points, exam findings, and any diagnostic results supporting the discharge/admit diagnosis, the need for outpatient follow up, a general surgeon, PCP, to return to the emergency department if symptoms worsen or persist or if there are any questions or concerns that arise at home. 16:10 ED course: Will discharge patient home on crutches to promote healing of abrasion from pm1 knee prosthesis. 11/13 16:06 Order name: Crutches; Complete Time: 17:13 pm1 Administered Medications: No medications were administered Disposition: 11/14 06:51 Co-signature as Attending Physician, Ole Epstein MD I agree with the assessment and imelda plan of care. Disposition: 11/13/17 16:04 Discharged to Home. Impression: Abrasion of lower leg. - Condition is Stable. - Discharge Instructions: Abrasion. - Prescriptions for Bactrim DS 800- 160 mg Oral Tablet - take 1 tablet by ORAL route every 12 hours for 10 days; 20 tablet. - Work release form, Medication Reconciliation Form, Thank You Letter, Antibiotic Education form. - Follow up: Emergency Department; When: As needed; Reason: Worsening of condition. Follow up: Private Physician; When: 2 - 3 days; Reason: Recheck today's complaints, Continuance of care, Re-evaluation by your physician. - Problem is new. - Symptoms have improved. Signatures: Ole Epstein MD MD cha Joaquin, Henry, RN RN Jamal Rodas, REMIGIO DRY CLIPPER TENDER pm1 Ursula Lawson RN RN kb1
== END 2017-11-13 17:14 | disposition home or self-care (01) ==
CPT/HCPCS: 99283

== ENCOUNTER 2017-12-06 08:24 | Emergency (ER) | payer SELFPAY ==
--- OUTSIDE RECORDS SUMMARY | 2017-12-06 08:26 | XMS REPORT ---
:1985 Author Organization [facility] Address [address] [place] [address] Care Team Providers Name Role Phone BINTA FOLEY Unavailable Unavailable Problems This patient has no known problems. Allergies, Adverse Reactions, Alerts This patient has no known allergies or adverse reactions. Medications This patient has no known medications. Encounters Start End Encounter Admission Attending Care Care Encounter Date/Time Date/Time Type Type Clinicians Facility Department ID 2017-04-09 2017-04-09 Emergency [facility] [id number] 00:00:00 00:00:00 2017-04-09 2017-04-09 [facility] [id number] 00:00:00 00:00:00 2017-04-08 2017-04-08 [facility] [id number] 22:35:00 22:35:00 2017-04-08 2017-04-08 [facility] [id number] 00:00:00 00:00:00 Results Test Description Test Time Test Comments Text Results Atomic Results Result Comments HEMOGLOBIN A1C 2017-07-16 13:26:00 Test Item Value Reference Range Comments HEMOGLOBIN A1C (BEAKER) (test aopm=943) 5.2 % 4.3-6.1 CBC W/PLT COUNT & AUTO [id number] 09:42:00 Test Item Value Reference Range Comments WHITE BLOOD CELL COUNT (BEAKER) (test irbd=798) 8.3 K/ L 3.5-10.5 RED BLOOD CELL COUNT (BEAKER) (test pidv=492) 3.47 M/ L 3.93-5.22 HEMOGLOBIN (BEAKER) (test yrmj=606) 10.3 GM/DL 11.2-15.7 HEMATOCRIT (BEAKER) (test icpu=068) 32.8 % 34.1-44.9 MEAN CORPUSCULAR VOLUME (BEAKER) (test jwsb=881) 94.5 fL 79.4-94.8 MEAN CORPUSCULAR HEMOGLOBIN (BEAKER) (test 29.7 pg 25.6-32.2 lxxc=383) MEAN CORPUSCULAR HEMOGLOBIN CONC (BEAKER) (test 31.4 GM/DL 32.2-35.5 bcbq=471) RED CELL DISTRIBUTION WIDTH (BEAKER) (test 13.1 % 11.7-14.4 xacf=296) PLATELET COUNT (BEAKER) (test gjxp=541) 284 K/CU MM 150-450 MEAN PLATELET VOLUME (BEAKER) (test eolg=829) 9.7 fL 9.4-12.3 NUCLEATED RED BLOOD CELLS (BEAKER) (test 0 /100 WBC 0-0 essb=999) IMMATURE GRANULOCYTES-RELATIVE PERCENT (BEAKER) 0 % 0-1 (test cyfr=9411) (MANUAL DIFFERENTIAL)2017-07-16 09:42:00 Test Item Value Reference Range Comments NEUTROPHILS - REL (DIFF) (BEAKER) (test zcod=7912) 36 % LYMPHOCYTES - REL (DIFF) (BEAKER) (test lnmx=5699) 53 % MONOCYTES - REL (DIFF) (BEAKER) (test wjfk=7580) 4 % EOSINOPHILS - REL (DIFF) (BEAKER) (test bbej=1175) 2 % BASOPHILS - REL (DIFF) (BEAKER) (test ooxn=3598) 2 % ATYPICAL LYMPHOCYTE - REL (DIFF) (BEAKER) (test 3 % 0-0 fkwt=274) NEUTROPHILS - ABS (DIFF) (BEAKER) (test rgis=4657) 2.99 K/ L 1.80-8.00 LYMPHOCYTES - ABS (DIFF) (BEAKER) (test iqoo=2593) 4.40 K/ L 1.48-4.50 MONOCYTES - ABS (DIFF) (BEAKER) (test yewm=5605) 0.33 K/ L 0.00-1.30 EOSINOPHILS - ABS (DIFF) (BEAKER) (test oyfu=7338) 0.17 K/ L 0.00-0.50 BASOPHILS - ABS (DIFF) (BEAKER) (test jyxc=9447) 0.17 K/ L 0.00-0.20 ATYPICAL LYMPHOCYTES - ABS (DIFF) (BEAKER) (test 0.25 K/ L 0.00-0.00 wycm=042) TOTAL COUNTED (BEAKER) (test newr=3078) 100 WBC MORPHOLOGY (BEAKER) (test ytsu=803) Normal PLT MORPHOLOGY (BEAKER) (test jlvx=722) Normal RBC MORPHOLOGY (BEAKER) (test tozq=663) Normal [id number] 07:11:00 Test Item Value Reference Range Comments MAGNESIUM (BEAKER) (test rsuq=696) 1.5 mg/dL 1.6-2.6 BASIC METABOLIC [id number] 07:11:00 Test Item Value Reference Range Comments SODIUM (BEAKER) (test 140 meq/L 136-145 lpbu=264) POTASSIUM (BEAKER) (test 3.6 meq/L 3.5-5.1 vanq=168) CHLORIDE (BEAKER) (test 119 meq/L 98-107 pkeg=665) CO2 (BEAKER) (test 16 meq/L 22-29 butf=941) BLOOD UREA NITROGEN 7 mg/dL 7-21 (BEAKER) (test uenc=541) CREATININE (BEAKER) (test 0.59 mg/dL 0.57-1.25 utml=922) GLUCOSE RANDOM (BEAKER) 89 mg/dL 70-105 (test cqnd=585) CALCIUM (BEAKER) (test 8.3 mg/dL 8.4-10.2 zhbw=082) EGFR (BEAKER) (test 118 mL/min/1.73 sq m ESTIMATED GFR IS NOT oysj=1603) ACCURATE CREATININE CLEARANCE IN PREDICTING GLOMERULAR FILTRATION RATE. ESTIMATED GFR IS NOT APPLICABLE FOR DIALYSIS PATIENTS. LIPID [id number] 07:11:00 Test Item Value Reference Range Comments TRIGLYCERIDES (BEAKER) (test asrs=942) 75 mg/dL CHOLESTEROL (BEAKER) (test fbyh=507) 173 mg/dL HDL CHOLESTEROL (BEAKER) (test pdkr=772) 33 mg/dL LDL CHOLESTEROL CALCULATED (BEAKER) (test 125 mg/dL pcqw=476) Triglyceride Reference Range: Low Risk <150 Borderline 150- 199 High Risk 200-499 Very High Risk >=500Cholesterol Reference Range: Low Risk <200 Borderline 200-239 High Risk > 240HDL Cholesterol Reference Range: Low Risk >=60 High Risk <40LDL Cholesterol Reference Range: Optimal <100 Near Optimal 100-129 Borderline 130-159 High 160-189 Very High >=190TROPONIN [id number] 06:34:00 Test Item Value Reference Range Comments TROPONIN I (KRISTI) (test kyes=351) < ng/mL 0.00-0.03 Troponin I (TnI) levels [...] acidosis, acute neurological disease, and persistent tachyarrhythmia.TROPONIN [id number] 23:58:00 Test Item Value Reference Range Comments TROPONIN I (BEPETER) (test ivve=534) < ng/mL 0.00-0.03 Troponin I (TnI) levels [...]
--- OUTSIDE RECORDS SUMMARY | 2017-12-06 08:26 | XMS REPORT | Clinical Summary ---
:1985 Author Organization [facility] Address [address] [place] [address] Care Team Providers Name Role Phone Kit [...] (Primary Dx); MD Clay Vaginal bleeding after 12/05/2016 Social History Tobacco Use Types Packs/Day Years [...] Done Comments PAP SMEAR 2006 INFLUENZA VACCINE 03/21/2018 Results US Pelvic Transabdominal (04/09/2017 5:28 AM) Specimen Performing Laboratory [facility] [address] [place] [address] Narrative Examination:US PELVIC TRANSABDOMINAL, US PELVIC TRANSVAGINAL [...] but no discrete measurable fibroid is seen. [id number] Procedure Note Interface, Radiology Results [facility] - 04/09/2017 5:38 AM CDT Examination: [...] but no discrete measurable fibroid is seen. [id number] US Pelvic Transvaginal (04/09/2017 5:28 AM) Specimen Performing [facility] [address] [place] [address] Narrative Examination:US PELVIC TRANSABDOMINAL, US PELVIC TRANSVAGINAL [...] but no discrete measurable fibroid is seen. [id number] Procedure Note Interface, Radiology Results Incoming - [...] but no discrete measurable fibroid is seen. [id number] Urinalysis screen and microscopy, with reflex to [...] UA None seen Specimen Performing Laboratory Urine [facility] DEPARTMENT OF PATHOLOGY AND [facility] [address] [place] [address] Estimated GFR (04/09/2017 2:01 AM) Component Value [...] and Americans. Specimen Performing Laboratory Plasma specimen [facility] DEPARTMENT OF PATHOLOGY AND GENOMIC MEDICINE [address] [place] [address] hCG qualitative, urine screen (04/09/2017 2:01 AM) Component Value Ref Range hCG qualitative, urine NegativeComment: Sensitivity of HCG test: 25 mIU/mL Specimen Performing Laboratory Urine [facility] DEPARTMENT OF PATHOLOGY AND [facility] [address] [place] [address] CBC with platelet and differential (04/09/2017 2:01 [...] (promyelocytes, myelocytes, metamyelocytes) Specimen Performing Laboratory Blood [facility] DEPARTMENT OF PATHOLOGY AND [facility] [address] [place] [address] Comprehensive metabolic panel (04/09/2017 2:01 AM) Component [...] Protein 7.5 6.3 - 8.3 g/dL Comment: [place] 4.6-7.0 g/dL 1 week 4.4-7.6 g/dL 7 months-1year5.1-7.3 g/dL 1-2 years5.6-7.5 g/dL >3 years6.0-8.0 g/dL 18-150 6.3-8.3 g/dL Albumin 4.0 3.5 - 5.0 g/dL A/G ratio 1.1 0.7 - 3.8 Alkaline phosphatase 71 35 - 104 U/L AST 18 10 - 35 U/L ALT 14 5 - 50 U/L Total bilirubin <0.2 0.0 - 1.2 mg/dL Specimen Performing Laboratory Plasma specimen [facility] DEPARTMENT OF PATHOLOGY AND [facility] [address] [place] [address] Gram stain (04/09/2017 2:00 AM) Component Value Ref Range Gram stain result No WBC's Many Gram positive rods Comment: Specimen Information Specimen Source: Urine Specimen Site: See UA Specimen Performing Laboratory Urine [facility] DEPARTMENT OF PATHOLOGY AND [facility] [address] [place] [address] Urine culture (04/09/2017 2:00 AM) Component Value Ref Range Urine culture isolate Mixed Gram positive cristina 10-1 cfu/ml (A) Comment: Specimen Information Specimen Source: Urine Specimen Site: See UA Urine culture isolate Mixed Gram negative rods <10-1 cfu/ml (A) Specimen Performing Laboratory Urine [facility] DEPARTMENT OF PATHOLOGY AND GENOMIC MEDICINE [address] [place] [address] after 12/05/2016 Insurance Payer Benefit Plan / Group Subscriber ID Type Phone Address FOR LIFE xxxxxxxxx Home: [address] [facility] [phone] [address]
--- OUTSIDE RECORDS SUMMARY | 2017-12-06 08:26 | XMS REPORT | Clinical Summary ---
:1985 Author Organization [facility] Address [address] [place] [address] Phone Care Team Providers Name Role Phone Unavailable Primary Care Provider Unavailable Allergies Active Allergy Reactions Severity Noted Date Comments Levofloxacin In D5w Other (See Comments) High 07/15/2017 Severe joint pain Bupropion Hcl Other (See Comments) High 07/15/2017 hallucinations Current Medications Prescription Sig. Disp. Refills Start Date End Date Status DULoxetine (CYMBALTA) 30 MG Take 30 mg by Active capsuleIndications: Anxiety mouth daily. with Depression topiramate (TOPAMAX) 100 MG Take 100 mg by Active tablet mouth 2 (two) times daily. omeprazole (PRILOSEC) 40 MG Take 40 mg by Active capsuleIndications: mouth daily. gastroesophageal reflux disease hydrOXYzine (ATARAX) 25 MG Take 25 mg by Active tabletIndications: anxiety mouth 4 (four) times daily. propranolol (INDERAL) 20 MG Take 20 mg by Active tabletIndications: RESTLESS mouth 2 (two) LEG SYNDROME times daily. traZODone (DESYREL) 150 MG Take 150 mg by Active tablet mouth nightly. ARIPiprazole (ABILIFY) 15 MG Take 15 mg by Active tablet mouth nightly. Active Problems Problem Noted Date Chest pain 07/15/2017 Encounters Date Type Specialty Care Team Description 07/16/2017 Orders Only General Internal Medicine 07/15/2017 - Hospital Encounter Cardiology Vania Moncada Chest pain, 07/16/2017 MD Dayanara unspecified Leonel Vivar type;Anxiety;MD jennifer Lazo, unspecified depression type;Abnormal EKG after 12/05/2016 Family History Medical History Relation Name Comments Coronary artery disease Maternal Aunt Coronary artery disease Maternal Grandmother Coronary artery disease Mother Relation Name Status Comments Maternal Aunt Alive Maternal Grandmother Mother Alive Social History Tobacco Use Types Packs/Day Years Used Date Current Every Day Smoker 1 Smokeless Tobacco: Never Used Tobacco Cessation: Ready to Quit: No; Counseling Given: No Alcohol Use Drinks/Week oz/Week Comments No Sex Assigned at Date Recorded Not on file Last Filed Vital Signs Vital Sign Reading Time Taken Blood Pressure 113/57 07/16/2017 11:41 AM CERTIFIED DRIVER EXAMINER Pulse 60 07/16/2017 11:41 AM CERTIFIED DRIVER EXAMINER Temperature 36.7 C (98 F) 07/16/2017 11:41 AM CERTIFIED DRIVER EXAMINER Respiratory Rate 18 07/16/2017 11:41 AM CERTIFIED DRIVER EXAMINER Oxygen Saturation 97% 07/16/2017 11:41 AM CERTIFIED DRIVER EXAMINER Inhaled Oxygen Concentration - - Weight 72.3 kg (159 lb 8 oz) 07/16/2017 4:00 AM CERTIFIED DRIVER EXAMINER Height - - Body Mass Index - - Plan of Treatment Not on file Results RHYTHM STRIP - SCAN (07/24/2017 11:30 AM)Only the most recent of2 resultswithin the time period is included.EKG-SCANNED (07/18/2017 12:01 PM)Manual Differential (07/16/2017 4:31 AM) Component Value Ref Range % Neutros (manual) 36 % % Lymphs (manual) 53 % % Monos (manual) 4 % % Eos (manual) 2 % % Baso (manual) 2 % % Atypical Lymphs 3 (H) 0 - 0 % # Neutros (manual) 2.99 1.80 - 8.00 K/L # Lymphs (manual) 4.40 1.48 - 4.50 K/L # Monos (manual) 0.33 0.00 - 1.30 K/L # Eos (manual) 0.17 0.00 - 0.50 K/L # Baso (manual) 0.17 0.00 - 0.20 K/L # Atypical Lymphs 0.25 (H) 0.00 - 0.00 K/L Total Counted 100 WBC Morphology Normal Platelet Morphology Normal RBC Morphology Normal Specimen Performing Laboratory Blood - Arm, Left [address] [place] [address] CBC with platelet count + automated diff (07/16/2017 4:31 AM) Component Value Ref Range WBC 8.3 3.5 - 10.5 K/L RBC 3.47 (L) 3.93 - 5.22 M/L Hemoglobin 10.3 (L) 11.2 - 15.7 GM/DL Hematocrit 32.8 (L) 34.1 - 44.9 % MCV 94.5 79.4 - 94.8 fL MCH 29.7 25.6 - 32.2 pg MCHC 31.4 (L) 32.2 - 35.5 GM/DL RDW 13.1 11.7 - 14.4 % Platelets 284 150 - 450 K/CU MM MPV 9.7 9.4 - 12.3 fL nRBC 0 0 - 0 /100 WBC Immature Granulocytes-Relative 0 0 - 1 % Specimen Performing Laboratory Blood - Arm, [address] [address] Troponin I (07/16/2017 4:31 AM)Only the most recent of2 resultswithin the time period is included. Component Value Ref Range Troponin I <0.01 0.00 - 0.03 ng/mL Specimen Performing Laboratory Blood - Arm, [address] [address] Narrative Troponin I (TnI) levels must be interpreted [...] acidosis, acute neurological disease, and persistent tachyarrhythmia. CBC with platelet count + automated diff (07/16/2017 4:31 AM) Specimen Performing Laboratory Blood Narrative The following orders were created for panel order CBC with platelet count + automated diff. Procedure Abnormality Status --------- ------ CBC with platelet count ...[[id number]]AbnormalFinal result Manual Differential[[id number]]Abnormal Final result Please view results for these tests on the individual orders. Magnesium (07/16/2017 4:31 AM) Component Value Ref Range Magnesium 1.5 (L) 1.6 - 2.6 mg/dL Specimen Performing Laboratory Blood - Arm, [address] [address] Hemoglobin A1c (07/16/2017 4:31 AM) Component Value Ref Range Hemoglobin A1C 5.2 4.3 - 6.1 % Specimen Performing Laboratory Blood - Arm, [address] [address] Lipid panel (07/16/2017 4:31 AM) Component Value Ref Range Triglycerides 75 mg/dL Cholesterol 173 mg/dL HDL 33 mg/dL LDL Calculated 125 mg/dL Specimen Performing Laboratory Blood - Arm, [address] [address] Narrative Triglyceride Reference Range: Low Risk <150 [id number] High Risk 200-499 Very High Risk>=500 Cholesterol Reference Range: Low Risk <200 Zdnadftvcr915-124 High Risk>240 HDL Cholesterol Reference Range: Low Risk >=60 High Risk <40 LDL Cholesterol Reference Range: Optimal<100 Near Rilcsvk229-730 Rzxcjigeis604-575 Ujhc854-122 Very High >=190 Basic metabolic panel (07/16/2017 4:31 AM) Component Value Ref Range Sodium 140 136 - 145 meq/L Potassium 3.6 3.5 - 5.1 meq/L Chloride 119 (H) 98 - 107 meq/L CO2 16 (L) 22 - 29 meq/L BUN 7 7 - 21 mg/dL Creatinine 0.59 0.57 - 1.25 mg/dL Glucose 89 70 - 105 mg/dL Calcium 8.3 (L) 8.4 - 10.2 mg/dL EGFR 118Comment: ESTIMATED GFR IS NOT ACCURATE mL/min/1.73 sq m CREATININE CLEARANCE IN PREDICTING GLOMERULAR FILTRATION RATE. ESTIMATED GFR IS NOT APPLICABLE FOR DIALYSIS PATIENTS. Specimen Performing Laboratory Blood - Arm, [address] [address] ECG 12 lead (07/16/2017 4:17 AM) Specimen Performing Laboratory [facility] Narrative Ventricular Rate 62 BPM Atrial Rate 62 BPM P-R Interval 168 ms QRS Duration 88 ms Q-T Interval 410 ms QTC Calculation(Bazett) 416 ms P [place] 41 degrees R [place] 59 degrees T [place] 42 degrees Normal sinus rhythm with sinus arrhythmia Low voltage QRS Most probably limb lead misplacement ST depressin and T wave inversion anterior leads, cannot exclude acute inferolateral STEMI equivalent Abnormal ECG No previous ECGs available Please repeat with correct lead placement Confirmed by MD JUDY, RICARDA ([id number]) on 07/17/2017 7:26:39 AM Procedure Note Interface, External Ris In - 07/17/2017 7:26 AM CERTIFIED DRIVER EXAMINER Ventricular Rate 62 BPM Atrial Rate 62 BPM P-R Interval 168 ms QRS Duration 88 ms Q-T Interval 410 ms QTC Calculation(Bazett) 416 ms P [place] 41 degrees R [place] 59 degrees T [place] 42 degrees Normal sinus rhythm with sinus arrhythmia Low voltage QRS Most probably limb lead misplacement ST depressin and T wave inversion anterior leads, cannot exclude acute inferolateral STEMI equivalent Abnormal ECG No previous ECGs available Please repeat with correct lead placement Confirmed by MD JUDY, RICARDA ([id number]) on 07/17/2017 7:26:39 AM after 12/05/2016
--- NOTE | 2017-12-06 09:51 | ER ---
Nurse's Notes [facility] Name: Natasha Spann Age: 32 yrs Sex: Female : 1985 Arrival Date: 12/06/2017 Time: 08:26 Bed 11 Private MD: None, None Diagnosis: Presentation: 12/06 08:57 Presenting complaint: Patient states: think she threw her back out at work on Monday, iw has left back pain, spasms. Transition of care: patient was not received from another setting of care. Onset of symptoms was November 2017. Initial Sepsis Screen: Does the patient meet any 2 criteria? No. Patient's initial sepsis screen is negative. Does the patient have a suspected source of infection? No. Patient's initial sepsis screen is negative. Care prior to arrival: None. 08:57 Method Of Arrival: Ambulatory iw 08:57 Acuity: EMILY 5 iw INFUSION NURSE: 08:59 LMP 11/23/2017 iw Historical: - Allergies: 08:59 bupropion HCl; iw 08:59 Levofloxacin; iw 08:59 Wellbutrin; iw - PMHx: 08:59 Anxiety; Bipolar disorder; Endometrosis; Gastric Reflux; MRSA; osteomylitis; Ovarian iw cyst; Depression; - PSHx: 08:59 Left BKA; muscle flap from back; iw - Immunization history:: Adult Immunizations not up to date. - Social history:: Smoking status: Patient uses tobacco products, smokes one pack cigarettes per day. Vital Signs: 08:59 BP 110 / 70; Pulse 71; Resp 16; Temp 97.4; Pulse Ox 100% on R/A; Weight 78.47 kg; iw Height 5 ft. 8 in. (172.72 cm); Pain 8/10; 08:59 Body Mass Index 26.30 (78.47 kg, 172.72 cm) iw ED Course: 08:26 Patient arrived in ED. mr 08:26 None, None is Private Physician. mr 08:58 Triage completed. iw 08:59 Arm band placed on. iw 09:22 Anastasia Patle, RN is Primary Nurse. iw 09:25 Kian Escobedo PA is PHCP. jr8 09:25 Basil Dove MD is Attending Physician. jr8 Administered Medications: No medications were administered Outcome: 09:50 Eloped from patient exam room, before seeing physician Time discovered patient gone: iw December 06, 2017 at 09:50 09:51 Patient left the ED. iw Signatures: Guillermina Justice Irene, RN RN iw Kian Escobedo PA PA jr8
--- NOTE | 2017-12-06 09:51 | EDPHYS ---
Physician Documentation [facility] Name: Natasha Spann Age: 32 yrs Sex: Female : 1985 Arrival Date: 12/06/2017 Time: 08:26 Bed 11 Private MD: None, None ED Physician Basil Dove CONSTRUCTION OPERATIONS MANAGER: 12/06 08:59 LMP 11/23/2017 iw Historical: - Allergies: 08:59 bupropion HCl; iw 08:59 Levofloxacin; iw 08:59 Wellbutrin; iw - PMHx: 08:59 Anxiety; Bipolar disorder; Endometrosis; Gastric Reflux; MRSA; osteomylitis; Ovarian iw cyst; Depression; - PSHx: 08:59 Left BKA; muscle flap from back; iw - Immunization history:: Adult Immunizations not up to date. - Social history:: Smoking status: Patient uses tobacco products, smokes one pack cigarettes per day. Vital Signs: 08:59 BP 110 / 70; Pulse 71; Resp 16; Temp 97.4; Pulse Ox 100% on R/A; Weight 78.47 kg; iw Height 5 ft. 8 in. (172.72 cm); Pain 8/10; 08:59 Body Mass Index 26.30 (78.47 kg, 172.72 cm) iw MDM: 09:25 Patient medically screened. jr8 09:35 ED course: Patient not in the room to be examined. jr8 Administered Medications: No medications were administered Disposition: 12/06/17 09:50 Patient left the facility before being seen by provider. - Patient left due to unknown. Addendum: 12/09/2017 06:08 Co-signature as Attending Physician, Basil Dove MD Available for consultation at p s1 all times. . Signatures: Anastasia Patel, RN RN iw Kian Escobedo PA PA jr8 Basil Dove MD MD ps1
[2017-12-06 09:58] VITALS: BP 110/70; TEMP 97.4; O2SAT 100
== END 2017-12-06 09:51 | disposition left against medical advice (07) ==
LOC: ER 08:24
DX: Z53.21 Procedure and treatment not carried out due to patient leaving prior to being seen by health care provider (principal)
CPT/HCPCS: 99281

== ENCOUNTER 2018-01-09 18:51 | Emergency (ER) | payer OTHER ==
--- OUTSIDE RECORDS SUMMARY | 2018-01-09 18:53 | XMS REPORT | Clinical Summary ---
:1985 Author Organization [facility] Address [address] [place] [address] Phone Care Team Providers Name Role Phone [...] Cardiology Vania Moncada Chest pain, 07/16/2017 MD Daaynara unspecified Leonel Vivar type;Anxiety;MD jennifer Lazo, unspecified depression type;Abnormal EKG after 01/08/2017 Family History Medical History Relation Name Comments [...] Taken Blood Pressure 113/57 07/16/2017 11:41 AM SOFTWARE QUALITY TEST ENGINEER Pulse 60 07/16/2017 11:41 AM SOFTWARE QUALITY TEST ENGINEER Temperature 36.7 C (98 F) 07/16/2017 11:41 AM SOFTWARE QUALITY TEST ENGINEER Respiratory Rate 18 07/16/2017 11:41 AM SOFTWARE QUALITY TEST ENGINEER Oxygen Saturation 97% 07/16/2017 11:41 AM SOFTWARE QUALITY TEST ENGINEER Inhaled Oxygen Concentration - - Weight 72.3 kg (159 lb 8 oz) 07/16/2017 4:00 AM SOFTWARE QUALITY TEST ENGINEER Height - - Body Mass Index - [...] Specimen Performing Laboratory Blood - Arm, Left [address] [place] [address] CBC with platelet count + automated diff [...] % Specimen Performing Laboratory Blood - Arm, [address] [address] Troponin I (07/16/2017 4:31 AM)Only the most recent of2 resultswithin the time period is included. Component Value Ref Range Troponin I <0.01 0.00 - 0.03 ng/mL Specimen Performing Laboratory Blood - Arm, [address] [address] Narrative Troponin I (TnI) levels must be [...] Status --------- ------ CBC with platelet count ...[[id number]]AbnormalFinal result Manual Differential[[id number]]Abnormal Final result Please view results for these tests on the individual orders. Magnesium (07/16/2017 4:31 AM) Component Value Ref Range Magnesium 1.5 (L) 1.6 - 2.6 mg/dL Specimen Performing Laboratory Blood - Arm, [address] [address] Hemoglobin A1c (07/16/2017 4:31 AM) Component Value Ref Range Hemoglobin A1C 5.2 4.3 - 6.1 % Specimen Performing Laboratory Blood - Arm, [address] [address] Lipid panel (07/16/2017 4:31 AM) Component Value Ref Range Triglycerides 75 mg/dL Cholesterol 173 mg/dL HDL 33 mg/dL LDL Calculated 125 mg/dL Specimen Performing Laboratory Blood - Arm, [address] [address] Narrative Triglyceride Reference Range: Low Risk <150 [id number] High Risk 200-499 Very High Risk>=500 Cholesterol Reference Range: Low Risk <200 Pmuzylsbpi248-357 High Risk>240 HDL Cholesterol Reference Range: Low Risk >=60 High Risk <40 LDL Cholesterol Reference Range: Optimal<100 Near Ygygjhl436-654 Qgfdwwvtzd966-398 Asut286-639 Very High >=190 Basic metabolic panel (07/16/2017 [...] PATIENTS. Specimen Performing Laboratory Blood - Arm, [address] [address] ECG 12 lead (07/16/2017 4:17 AM) Specimen Performing Laboratory [facility] Narrative Ventricular Rate 62 BPM Atrial Rate 62 BPM P-R Interval 168 ms QRS Duration 88 ms Q-T Interval 410 ms QTC Calculation(Bazett) 416 ms P [place] 41 degrees R [place] 59 degrees T [place] 42 degrees Normal sinus rhythm with sinus arrhythmia Low voltage QRS Most probably limb lead misplacement ST depressin and T wave inversion anterior leads, cannot exclude acute inferolateral STEMI equivalent Abnormal ECG No previous ECGs available Please repeat with correct lead placement Confirmed by MD JUDY, RICARDA ([id number]) on 07/17/2017 7:26:39 AM Procedure Note Interface, External Ris In - 07/17/2017 7:26 AM SOFTWARE QUALITY TEST ENGINEER Ventricular Rate 62 BPM Atrial Rate 62 BPM P-R Interval 168 ms QRS Duration 88 ms Q-T Interval 410 ms QTC Calculation(Bazett) 416 ms P [place] 41 degrees R [place] 59 degrees T [place] 42 degrees Normal sinus rhythm with sinus arrhythmia Low voltage QRS Most probably limb lead misplacement ST depressin and T wave inversion anterior leads, cannot exclude acute inferolateral STEMI equivalent Abnormal ECG No previous ECGs available Please repeat with correct lead placement Confirmed by MD JUDY, RICARDA ([id number]) on 07/17/2017 7:26:39 AM after 01/08/2017
--- OUTSIDE RECORDS SUMMARY | 2018-01-09 18:53 | XMS REPORT | Clinical Summary ---
:1985 Author Organization [facility] Address [address] [place] [address] Care Team Providers Name Role Phone Kit [...] (Primary Dx); MD Clay Vaginal bleeding after 01/08/2017 Social History Tobacco Use Types Packs/Day Years [...] Health Maintenance Due Date Last Done Comments CERVICAL CANCER SCREENING 2006 INFLUENZA VACCINE 03/21/2018 Results US Pelvic Transabdominal (04/09/2017 5:28 AM) Specimen Performing Laboratory [facility] [address] [place] [address] Narrative Examination:US PELVIC TRANSABDOMINAL, US PELVIC TRANSVAGINAL [...] but no discrete measurable fibroid is seen. [facility]-[id number] Procedure Note Interface, Radiology Results [facility] - 04/09/2017 5:38 AM CDT Examination: [...] but no discrete measurable fibroid is seen. [facility]-[id number] US Pelvic Transvaginal (04/09/2017 5:28 AM) Specimen Performing Laboratory [facility] [address] [place] [address] Narrative Examination:US PELVIC TRANSABDOMINAL, US PELVIC TRANSVAGINAL [...] but no discrete measurable fibroid is seen. [facility]-[id number] Procedure Note Interface, Radiology Results Incoming - [...] but no discrete measurable fibroid is seen. [facility]-[id number] Urinalysis screen and microscopy, with reflex to [...] UA None seen Specimen Performing Laboratory Urine [facility] [address] [place] [address] Estimated GFR (04/09/2017 2:01 AM) Component Value [...] and Americans. Specimen Performing Laboratory Plasma specimen [facility] [address] [place] [address] hCG qualitative, urine screen (04/09/2017 2:01 AM) Component Value Ref Range hCG qualitative, urine NegativeComment: Sensitivity of HCG test: 25 mIU/mL Specimen Performing Laboratory Urine [facility] [address] [place] [address] CBC with platelet and differential (04/09/2017 2:01 [...] (promyelocytes, myelocytes, metamyelocytes) Specimen Performing Laboratory Blood [facility] [address] [place] [address] Comprehensive metabolic panel (04/09/2017 2:01 AM) Component [...] Protein 7.5 6.3 - 8.3 g/dL Comment: [place] 4.6-7.0 g/dL 1 week 4.4-7.6 g/dL 7 months-1year5.1-7.3 g/dL 1-2 years5.6-7.5 g/dL >3 years6.0-8.0 g/dL 18-150 6.3-8.3 g/dL Albumin 4.0 3.5 - 5.0 g/dL A/G ratio 1.1 0.7 - 3.8 Alkaline phosphatase 71 35 - 104 U/L AST 18 10 - 35 U/L ALT 14 5 - 50 U/L Total bilirubin <0.2 0.0 - 1.2 mg/dL Specimen Performing Laboratory Plasma specimen [facility] [address] [place] [address] Gram stain (04/09/2017 2:00 AM) Component Value Ref Range Gram stain result No WBC's Many Gram positive rods Comment: Specimen Information Specimen Source: Urine Specimen Site: See UA Specimen Performing Laboratory Urine [facility] [address] [place] [address] Urine culture (04/09/2017 2:00 AM) Component Value Ref Range Urine culture isolate Mixed Gram positive cristina 10-1 cfu/ml (A) Comment: Specimen Information Specimen Source: Urine Specimen Site: See UA Urine culture isolate Mixed Gram negative rods <10-1 cfu/ml (A) Specimen Performing Laboratory Urine [facility] [address] [place] [phone] after 01/08/2017 Insurance Payer Benefit Plan / Group Subscriber ID Type Phone Address CECILY QUINTANA xxxxxxxxx [phone] [phone] [id number]
--- OUTSIDE RECORDS SUMMARY | 2018-01-09 18:54 | XMS REPORT ---
:1985 Author Organization [facility] Address [address] [place] [address] Care Team Providers Name Role Phone JOYCE FOLEY Unavailable Unavailable Problems This patient has no known problems. Allergies, Adverse Reactions, Alerts This patient has no known allergies or adverse reactions. Medications This patient has no known medications. Encounters Start End Encounter Admission Attending Care Care Encounter Date/Time Date/Time Type Type Clinicians Facility Department ID 2017-04-09 2017-04-09 Emergency [facility] [id number] 00:00:00 00:00:00 2017-04-09 2017-04-09 [facility] [id number] 00:00:00 00:00:00 2017-04-08 2017-04-08 [facility] [id number] 22:35:00 22:35:00 2017-04-08 2017-04-08 [facility] [id number] 00:00:00 00:00:00 Results Test Description Test Time Test Comments Text Results Atomic Results Result Comments HEMOGLOBIN A1C 2017-07-16 13:26:00 Test Item Value Reference Range Comments HEMOGLOBIN A1C (BEAKER) (test ktsb=844) 5.2 % 4.3-6.1 CBC W/PLT COUNT & AUTO [id number] 09:42:00 Test Item Value Reference Range Comments WHITE BLOOD CELL COUNT (BEAKER) (test lers=133) 8.3 K/ L 3.5-10.5 RED BLOOD CELL COUNT (BEAKER) (test zpqf=326) 3.47 M/ L 3.93-5.22 HEMOGLOBIN (BEAKER) (test jgde=797) 10.3 GM/DL 11.2-15.7 HEMATOCRIT (BEAKER) (test xdfj=871) 32.8 % 34.1-44.9 MEAN CORPUSCULAR VOLUME (BEAKER) (test jlge=788) 94.5 fL 79.4-94.8 MEAN CORPUSCULAR HEMOGLOBIN (BEAKER) (test 29.7 pg 25.6-32.2 pzsl=788) MEAN CORPUSCULAR HEMOGLOBIN CONC (BEAKER) (test 31.4 GM/DL 32.2-35.5 tgjs=674) RED CELL DISTRIBUTION WIDTH (BEAKER) (test 13.1 % 11.7-14.4 kjzf=455) PLATELET COUNT (BEAKER) (test auqn=591) 284 K/CU MM 150-450 MEAN PLATELET VOLUME (BEAKER) (test gncq=152) 9.7 fL 9.4-12.3 NUCLEATED RED BLOOD CELLS (BEAKER) (test 0 /100 WBC 0-0 dzox=993) IMMATURE GRANULOCYTES-RELATIVE PERCENT (BEAKER) 0 % 0-1 (test ycue=0282) (MANUAL DIFFERENTIAL)2017-07-16 09:42:00 Test Item Value Reference Range Comments NEUTROPHILS - REL (DIFF) (BEAKER) (test ugfa=5431) 36 % LYMPHOCYTES - REL (DIFF) (BEAKER) (test qpdd=7154) 53 % MONOCYTES - REL (DIFF) (BEAKER) (test uvgy=8204) 4 % EOSINOPHILS - REL (DIFF) (BEAKER) (test hgzl=6184) 2 % BASOPHILS - REL (DIFF) (BEAKER) (test xzxu=2663) 2 % ATYPICAL LYMPHOCYTE - REL (DIFF) (BEAKER) (test 3 % 0-0 mdja=667) NEUTROPHILS - ABS (DIFF) (BEAKER) (test whir=7190) 2.99 K/ L 1.80-8.00 LYMPHOCYTES - ABS (DIFF) (BEAKER) (test srgq=9222) 4.40 K/ L 1.48-4.50 MONOCYTES - ABS (DIFF) (BEAKER) (test mjwq=4237) 0.33 K/ L 0.00-1.30 EOSINOPHILS - ABS (DIFF) (BEAKER) (test pnng=5092) 0.17 K/ L 0.00-0.50 BASOPHILS - ABS (DIFF) (BEAKER) (test nokh=1445) 0.17 K/ L 0.00-0.20 ATYPICAL LYMPHOCYTES - ABS (DIFF) (BEAKER) (test 0.25 K/ L 0.00-0.00 wmfi=189) TOTAL COUNTED (BEAKER) (test cdvq=5170) 100 WBC MORPHOLOGY (BEAKER) (test xalt=599) Normal PLT MORPHOLOGY (BEAKER) (test apln=775) Normal RBC MORPHOLOGY (BEAKER) (test txop=679) Normal [id number] 07:11:00 Test Item Value Reference Range Comments MAGNESIUM (BEAKER) (test sojp=603) 1.5 mg/dL 1.6-2.6 BASIC METABOLIC [id number] 07:11:00 Test Item Value Reference Range Comments SODIUM (BEAKER) (test 140 meq/L 136-145 sctt=815) POTASSIUM (BEAKER) (test 3.6 meq/L 3.5-5.1 qami=999) CHLORIDE (BEAKER) (test 119 meq/L 98-107 pwkf=375) CO2 (BEAKER) (test 16 meq/L 22-29 okwq=908) BLOOD UREA NITROGEN 7 mg/dL 7-21 (BEAKER) (test nusf=294) CREATININE (BEAKER) (test 0.59 mg/dL 0.57-1.25 gsmu=947) GLUCOSE RANDOM (BEAKER) 89 mg/dL 70-105 (test ektl=715) CALCIUM (BEAKER) (test 8.3 mg/dL 8.4-10.2 obbl=133) EGFR (BEAKER) (test 118 mL/min/1.73 sq m ESTIMATED GFR IS NOT ssse=0526) ACCURATE CREATININE CLEARANCE IN PREDICTING GLOMERULAR FILTRATION RATE. ESTIMATED GFR IS NOT APPLICABLE FOR DIALYSIS PATIENTS. LIPID [id number] 07:11:00 Test Item Value Reference Range Comments TRIGLYCERIDES (BEAKER) (test ojca=213) 75 mg/dL CHOLESTEROL (BEAKER) (test vqqs=191) 173 mg/dL HDL CHOLESTEROL (BEAKER) (test rqsi=462) 33 mg/dL LDL CHOLESTEROL CALCULATED (BEAKER) (test 125 mg/dL jsfi=595) Triglyceride Reference Range: Low Risk <150 Borderline 150- 199 High Risk 200-499 Very High Risk >=500Cholesterol Reference Range: Low Risk <200 Borderline 200-239 High Risk > 240HDL Cholesterol Reference Range: Low Risk >=60 High Risk <40LDL Cholesterol Reference Range: Optimal <100 Near Optimal 100-129 Borderline 130-159 High 160-189 Very High >=190TROPONIN [id number] 06:34:00 Test Item Value Reference Range Comments TROPONIN I (KRISTI) (test smwu=969) < ng/mL 0.00-0.03 Troponin I (TnI) levels [...] acidosis, acute neurological disease, and persistent tachyarrhythmia.TROPONIN [id number] 23:58:00 Test Item Value Reference Range Comments TROPONIN I (BEPETER) (test uzrc=710) < ng/mL 0.00-0.03 Troponin I (TnI) levels [...]
--- NOTE | 2018-01-09 19:57 | ER ---
Nurse's Notes [facility] Name: Natasha Spann Age: 32 yrs Sex: Female : 1985 Arrival Date: 01/09/2018 Time: 18:54 Bed 24 Private MD: Diagnosis: Phantom limb syndrome with pain Presentation: 01/09 18:57 Presenting complaint: Patient states: i am having bone pain in my amputated leg tw2 radiating up (LEFT), it has been going on for 3 days now. Transition of care: patient was not received from another setting of care. Onset of symptoms was January 09, 2018. Risk Assessment: Do you want to hurt yourself or someone else? Patient reports no desire to harm self or others. Initial Sepsis Screen: Does the patient meet any 2 criteria? No. Patient's initial sepsis screen is negative. Does the patient have a suspected source of infection? No. Patient's initial sepsis screen is negative. Care prior to arrival: None. 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 tw2 Historical: - Allergies: 18:58 bupropion HCl; tw2 18:58 Levofloxacin; tw2 18:58 Wellbutrin; tw2 - Home Meds: 19:23 aripiprazole 15 mg Oral tab 1 tab nightly [Active]; duloxetine 30 mg Oral cpDR 1 cap tl3 once daily [Active]; hydroxyzine HCl 25 mg Oral tab 4 times per day [Active]; omeprazole 40 mg Oral cpDR 1 cap once daily [Active]; propranolol 20 mg Oral tab 1 tab 2 times per day [Active]; topiramate 100 mg Oral tab 1 tab 2 times per day [Active]; 19:23 trazodone 150 mg Oral tab 1 tab night prn [Active]; tl3 - PMHx: 18:58 Anxiety; Bipolar disorder; Depression; Endometrosis; Gastric Reflux; MRSA; tw2 osteomylitis; Ovarian cyst; - PSHx: 19:23 Left BKA; tl3 19:25 muscle flap from back; tl3 - Immunization history:: Adult Immunizations up to date. - Social history:: Smoking status: Patient uses tobacco products, smokes one pack cigarettes per day. - Ebola Screening: : Patient denies travel to an Ebola-affected area in the 21 days before illness onset. Screenin:17 Abuse screen: Denies threats or abuse. Nutritional screening: No deficits noted. tl3 Tuberculosis screening: No symptoms or risk factors identified. Fall Risk None identified. Assessment: 19:14 General: Appears uncomfortable, slender, well groomed, well developed, well nourished, tl3 Behavior is calm, cooperative, appropriate for age. Pain: Complains of pain in left leg. Neuro: No deficits noted. Level of Consciousness is awake, alert, obeys commands, Oriented to person, place, time, situation, Appropriate for age. 19:17 Cardiovascular: No deficits noted. Patient's skin is warm and dry. Respiratory: No tl3 deficits noted. Airway is patent Trachea midline Respiratory effort is even, unlabored, Respiratory pattern is regular, symmetrical, Breath sounds are clear bilaterally. GI: No signs and/or symptoms were reported involving the gastrointestinal system. : No signs and/or symptoms were reported regarding the genitourinary system. EENT: No signs and/or symptoms were reported regarding the EENT system. Derm: No signs and/or symptoms reported regarding the dermatologic system. Musculoskeletal: Reports pain in left leg feels like pain is in the bone, radiates up the leg, pt has had this issue in the past no definitive diagnosis. 20:17 Reassessment: Patient is alert, oriented x 3, equal unlabored respirations, skin bb warm/dry/pink. pt verbalized understanding of and agrees to plan of care discharge instructions given. Vital Signs: 18:57 BP 140 / 82; Pulse 80; Resp 17; Temp 97.7(O); Pulse Ox 98% on R/A; Weight 81.65 kg (R); tw2 Height 5 ft. 8 in. (172.72 cm); Pain 7/10; 19:17 BP 122 / 76; Pulse 105; Resp 18; Pulse Ox 97% on R/A; tl3 20:18 BP 115 / 80; Pulse 69; Resp 16 S; Temp 98.4(O); Pulse Ox 99% on R/A; bb 18:57 Body Mass Index 27.37 (81.65 kg, 172.72 cm) tw2 ED Course: 18:54 Patient arrived in ED. mr 18:57 Triage completed. tw2 18:57 Arm band placed on. tw2 18:59 Maria Elena Márquez, JONY is Primary Nurse. tl3 19:05 Jean Paul Solo MD is Attending Physician. 19:17 No apparent distress. No apparent distress. Resting quietly. Awaiting ED provider tl3 evaluation. 19:17 Patient has correct armband on for positive identification. Bed in low position. Call tl3 light in reach. Side rails up X 1. 19:17 No provider procedures requiring assistance completed. tl3 19:55 Nathaniel Strickland MD is Referral Physician. gs 20:19 Patient did not have IV access during this emergency room visit. bb Administered Medications: No medications were administered Outcome: 19:56 Discharge ordered by . 20:19 Discharged to home ambulatory. bb 20:19 Condition: stable 20:19 Discharge instructions given to patient, Instructed on discharge instructions, follow up and referral plans. Demonstrated understanding of instructions, follow-up care. 20:19 Patient left the ED. bb Signatures: Guillermina Justice Brenda RN RN bb Maggi Collier RN RN tw2 Jean Paul Solo MD MD Maria Elena Márquez, RN RN tl3 Corrections: (The following items were deleted from the chart) 19:19 19:00 General: Appears tl3 tl3
--- NOTE | 2018-01-09 19:57 | EDPHYS ---
Physician Documentation [facility] Name: Natasha Spann Age: 32 yrs Sex: Female : 1985 Arrival Date: 01/09/2018 Time: 18:54 Bed 24 Private MD: ED Physician Jean Paul Solo HPI: 01/09 19:45 This 32 yrs old Female presents to ER via Ambulatory with complaints of Leg gs Pain. 19:45 The patient presents with pain, that is chronic. The complaints affect the left BK gs STUMP. Onset: The symptoms/episode began/occurred 1 week(s) ago. Modifying factors: The symptoms are alleviated by nothing. the symptoms are aggravated by movement. Associated signs and symptoms: Pertinent negatives fever, nausea, numbness, rash, swelling, tingling, warmth, weakness. Severity of symptoms: At their worst the symptoms were moderate, in the emergency department the symptoms have improved, moderately. The patient has experienced similar episodes in the past, a few times. 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 tw2 Historical: - Allergies: 18:58 bupropion HCl; tw2 18:58 Levofloxacin; tw2 18:58 Wellbutrin; tw2 - Home Meds: 19:23 aripiprazole 15 mg Oral tab 1 tab nightly [Active]; duloxetine 30 mg Oral cpDR 1 cap tl3 once daily [Active]; hydroxyzine HCl 25 mg Oral tab 4 times per day [Active]; omeprazole 40 mg Oral cpDR 1 cap once daily [Active]; propranolol 20 mg Oral tab 1 tab 2 times per day [Active]; topiramate 100 mg Oral tab 1 tab 2 times per day [Active]; 19:23 trazodone 150 mg Oral tab 1 tab night prn [Active]; tl3 - PMHx: 18:58 Anxiety; Bipolar disorder; Depression; Endometrosis; Gastric Reflux; MRSA; tw2 osteomylitis; Ovarian cyst; - PSHx: 19:23 Left BKA; tl3 19:25 muscle flap from back; tl3 - Immunization history:: Adult Immunizations up to date. - Social history:: Smoking status: Patient uses tobacco products, smokes one pack cigarettes per day. - Ebola Screening: : Patient denies travel to an Ebola-affected area in the 21 days before illness onset. ROS: 19:45 All other systems are negative. gs Exam: 19:45 ENT: Nares patent. No nasal discharge, no septal abnormalities noted. Tympanic gs membranes are normal and external auditory canals are clear. Oropharynx with no redness, swelling, or masses, exudates, or evidence of obstruction, uvula midline. Mucous membranes moist. Neck: Trachea midline, no thyromegaly or masses palpated, and no cervical lymphadenopathy. Supple, full range of motion without nuchal rigidity, or vertebral point tenderness. No Meningismus. 19:45 Constitutional: The patient appears alert, awake. 19:52 Cardiovascular: Regular rate and rhythm with a normal S1 and S2. No gallops, murmurs, gs or rubs. Normal PMI, no JVD. No pulse deficits. Respiratory: Lungs have equal breath sounds bilaterally, clear to auscultation and percussion. No rales, rhonchi or wheezes noted. No increased work of breathing, no retractions or nasal flaring. Abdomen/GI: Soft, non-tender, with normal bowel sounds. No distension or tympany. No guarding or rebound. No evidence of tenderness throughout. Back: No spinal tenderness. No costovertebral tenderness. Full range of motion. 19:52 Musculoskeletal/extremity: Circulation is intact in all extremities. Pulses: are normal with no appreciated deficits, STUMP SKIN NORMAL NO BREAKDOWN NONTENDER. Vital Signs: 18:57 BP 140 / 82; Pulse 80; Resp 17; Temp 97.7(O); Pulse Ox 98% on R/A; Weight 81.65 kg (R); tw2 Height 5 ft. 8 in. (172.72 cm); Pain 7/10; 19:17 BP 122 / 76; Pulse 105; Resp 18; Pulse Ox 97% on R/A; tl3 20:18 BP 115 / 80; Pulse 69; Resp 16 S; Temp 98.4(O); Pulse Ox 99% on R/A; bb 18:57 Body Mass Index 27.37 (81.65 kg, 172.72 cm) tw2 MDM: 19:41 Patient medically screened. gs 19:52 Data reviewed: vital signs, nurses notes. gs Administered Medications: No medications were administered Disposition: 01/09/18 19:56 Discharged to Home. Impression: Phantom limb syndrome with pain. - Condition is Stable. - Discharge Instructions: Neuropathic Pain. - Medication Reconciliation Form, Thank You Letter, Antibiotic Education, Prescription Opioid Use form. - Follow up: Nathaniel Strickland MD; When: 2 - 3 days; Reason: Re-evaluation by your physician. Signatures: Humera Siddiqui RN RN bb Maggi Collier RN RN tw2 Jean Paul Solo MD MD Maria Elena Márquez RN RN tl3 Corrections: (The following items were deleted from the chart) 20:19 19:56 01/09/2018 19:56 Discharged to Home. Impression: Phantom limb syndrome with pain. bb Condition is Stable. Forms are Medication Reconciliation Form, Thank You Letter, Antibiotic Education, Prescription Opioid Use. Follow up: Dr. Nathaniel Strickland; When: 2 - 3 days; Reason: Re-evaluation by your physician. gs
[2018-01-09 20:32] VITALS: BP 115/80; TEMP 98.4; O2SAT 99
== END 2018-01-09 20:19 | disposition home or self-care (01) ==
LOC: ER 18:51
DX: G54.6 Phantom limb syndrome with pain (principal); F31.9 Bipolar disorder, unspecified; F17.210 Nicotine dependence, cigarettes, uncomplicated; Z89.512 Acquired absence of left leg below knee; Z88.3 Allergy status to other anti-infective agents; Z88.8 Allergy status to other drugs, medicaments and biological substances
CPT/HCPCS: 99281

== ENCOUNTER 2018-01-16 20:12 | Emergency (ER) | payer SELFPAY ==
--- OUTSIDE RECORDS SUMMARY | 2018-01-16 20:14 | XMS REPORT | Clinical Summary ---
:1985 Author Organization [facility] Address [address] [place] [address] Phone Care Team Providers Name Role Phone [...] jennifer Lazo, unspecified depression type;Abnormal EKG after 01/15/2017 Family History Medical History Relation Name Comments [...] Taken Blood Pressure 113/57 07/16/2017 11:41 AM SUPERINTENDENT SYSTEM OPERATION Pulse 60 07/16/2017 11:41 AM SUPERINTENDENT SYSTEM OPERATION Temperature 36.7 C (98 F) 07/16/2017 11:41 AM SUPERINTENDENT SYSTEM OPERATION Respiratory Rate 18 07/16/2017 11:41 AM SUPERINTENDENT SYSTEM OPERATION Oxygen Saturation 97% 07/16/2017 11:41 AM SUPERINTENDENT SYSTEM OPERATION Inhaled Oxygen Concentration - - Weight 72.3 kg (159 lb 8 oz) 07/16/2017 4:00 AM SUPERINTENDENT SYSTEM OPERATION Height - - Body Mass Index - [...] Specimen Performing Laboratory Blood - Arm, Left [address] [place] [address] CBC with platelet count + automated diff [...] % Specimen Performing Laboratory Blood - Arm, [address] [address] Troponin I (07/16/2017 4:31 AM)Only the most recent of2 resultswithin the time period is included. Component Value Ref Range Troponin I <0.01 0.00 - 0.03 ng/mL Specimen Performing Laboratory Blood - Arm, [address] [address] Narrative Troponin I (TnI) levels must be [...] Status --------- ------ CBC with platelet count ...[[id number]]AbnormalFinal result Manual Differential[[id number]]Abnormal Final result Please view results for these tests on the individual orders. Magnesium (07/16/2017 4:31 AM) Component Value Ref Range Magnesium 1.5 (L) 1.6 - 2.6 mg/dL Specimen Performing Laboratory Blood - Arm, [address] [address] Hemoglobin A1c (07/16/2017 4:31 AM) Component Value Ref Range Hemoglobin A1C 5.2 4.3 - 6.1 % Specimen Performing Laboratory Blood - Arm, [address] [address] Lipid panel (07/16/2017 4:31 AM) Component Value Ref Range Triglycerides 75 mg/dL Cholesterol 173 mg/dL HDL 33 mg/dL LDL Calculated 125 mg/dL Specimen Performing Laboratory Blood - Arm, [address] [address] Narrative Triglyceride Reference Range: Low Risk <150 [id number] High Risk 200-499 Very High Risk>=500 Cholesterol Reference Range: Low Risk <200 [id number] High Risk>240 HDL Cholesterol Reference Range: Low Risk >=60 High Risk <40 LDL Cholesterol Reference Range: Optimal<100 Near [id number] Isdgtvcudg011-131 Oums705-459 Very High >=190 Basic metabolic panel (07/16/2017 [...] PATIENTS. Specimen Performing Laboratory Blood - Arm, [address] [address] ECG 12 lead (07/16/2017 4:17 AM) Specimen Performing Laboratory GE MUSE Narrative Ventricular Rate 62 BPM Atrial Rate 62 BPM P-R Interval 168 ms QRS Duration 88 ms Q-T Interval 410 ms QTC Calculation(Bazett) 416 ms P [place] 41 degrees R [place] 59 degrees T [place] 42 degrees Normal sinus rhythm with sinus arrhythmia Low voltage QRS Most probably limb lead misplacement ST depressin and T wave inversion anterior leads, cannot exclude acute inferolateral STEMI equivalent Abnormal ECG No previous ECGs available Please repeat with correct lead placement Confirmed by MD JUDY, RICARDA ([id number]) on 07/17/2017 7:26:39 AM Procedure Note Interface, External Ris In - 07/17/2017 7:26 AM SUPERINTENDENT SYSTEM OPERATION Ventricular Rate 62 BPM Atrial Rate 62 BPM P-R Interval 168 ms QRS Duration 88 ms Q-T Interval 410 ms QTC Calculation(Bazett) 416 ms P [place] 41 degrees R [place] 59 degrees T [place] 42 degrees Normal sinus rhythm with sinus arrhythmia Low voltage QRS Most probably limb lead misplacement ST depressin and T wave inversion anterior leads, cannot exclude acute inferolateral STEMI equivalent Abnormal ECG No previous ECGs available Please repeat with correct lead placement Confirmed by MD JUDY, RICARDA ([id number]) on 07/17/2017 7:26:39 AM after 01/15/2017
--- OUTSIDE RECORDS SUMMARY | 2018-01-16 20:14 | XMS REPORT ---
:1985 [facility] Address [address] [place] [address] Care Team Providers Name Role Phone JOYCE FOLEY Unavailable Unavailable Problems This patient has no known problems. Allergies, Adverse Reactions, Alerts This patient has no known allergies or adverse reactions. Medications This patient has no known medications. Encounters Start End Encounter Admission Attending Care Care Encounter Date/Time Date/Time Type Type Clinicians Facility Department ID 2017-04-09 2017-04-09 [facility] [id number] 00:00:00 00:00:00 2017-04-09 2017-04-09 [facility] [id number] 00:00:00 00:00:00 2017-04-08 2017-04-08 [facility] [id number] 22:35:00 22:35:00 2017-04-08 2017-04-08 [facility] [id number] 00:00:00 00:00:00 Results Test Description Test Time Test Comments Text Results Atomic Results Result Comments HEMOGLOBIN A1C 2017-07-16 13:26:00 Test Item Value Reference Range Comments HEMOGLOBIN A1C (BEAKER) (test rarf=632) 5.2 % 4.3-6.1 CBC W/PLT COUNT & AUTO [id number] 09:42:00 Test Item Value Reference Range Comments WHITE BLOOD CELL COUNT (BEAKER) (test qnde=803) 8.3 K/ L 3.5-10.5 RED BLOOD CELL COUNT (BEAKER) (test juja=663) 3.47 M/ L 3.93-5.22 HEMOGLOBIN (BEAKER) (test seby=598) 10.3 GM/DL 11.2-15.7 HEMATOCRIT (BEAKER) (test yqge=589) 32.8 % 34.1-44.9 MEAN CORPUSCULAR VOLUME (BEAKER) (test zgdg=062) 94.5 fL 79.4-94.8 MEAN CORPUSCULAR HEMOGLOBIN (BEAKER) (test 29.7 pg 25.6-32.2 sbym=279) MEAN CORPUSCULAR HEMOGLOBIN CONC (BEAKER) (test 31.4 GM/DL 32.2-35.5 bacr=544) RED CELL DISTRIBUTION WIDTH (BEAKER) (test 13.1 % 11.7-14.4 rfnq=413) PLATELET COUNT (BEAKER) (test aeiz=109) 284 K/CU MM 150-450 MEAN PLATELET VOLUME (BEAKER) (test grme=005) 9.7 fL 9.4-12.3 NUCLEATED RED BLOOD CELLS (BEAKER) (test 0 /100 WBC 0-0 zlaa=885) IMMATURE GRANULOCYTES-RELATIVE PERCENT (BEAKER) 0 % 0-1 (test sipq=6248) (MANUAL DIFFERENTIAL)2017-07-16 09:42:00 Test Item Value Reference Range Comments NEUTROPHILS - REL (DIFF) (BEAKER) (test ycfu=0127) 36 % LYMPHOCYTES - REL (DIFF) (BEAKER) (test hrjn=8401) 53 % MONOCYTES - REL (DIFF) (BEAKER) (test azzw=5786) 4 % EOSINOPHILS - REL (DIFF) (BEAKER) (test tyrd=2076) 2 % BASOPHILS - REL (DIFF) (BEAKER) (test wbgk=3713) 2 % ATYPICAL LYMPHOCYTE - REL (DIFF) (BEAKER) (test 3 % 0-0 ahoa=819) NEUTROPHILS - ABS (DIFF) (BEAKER) (test lzzt=8590) 2.99 K/ L 1.80-8.00 LYMPHOCYTES - ABS (DIFF) (BEAKER) (test ndrt=2057) 4.40 K/ L 1.48-4.50 MONOCYTES - ABS (DIFF) (BEAKER) (test uchk=4315) 0.33 K/ L 0.00-1.30 EOSINOPHILS - ABS (DIFF) (BEAKER) (test zigk=3861) 0.17 K/ L 0.00-0.50 BASOPHILS - ABS (DIFF) (BEAKER) (test vzos=7344) 0.17 K/ L 0.00-0.20 ATYPICAL LYMPHOCYTES - ABS (DIFF) (BEAKER) (test 0.25 K/ L 0.00-0.00 afud=008) TOTAL COUNTED (BEAKER) (test tyma=9433) 100 WBC MORPHOLOGY (BEAKER) (test nbxi=212) Normal PLT MORPHOLOGY (BEAKER) (test kbqr=876) Normal RBC MORPHOLOGY (BEAKER) (test kkcq=734) Normal [id number] 07:11:00 Test Item Value Reference Range Comments MAGNESIUM (BEAKER) (test qxmq=449) 1.5 mg/dL 1.6-2.6 BASIC METABOLIC [id number] 07:11:00 Test Item Value Reference Range Comments SODIUM (BEAKER) (test 140 meq/L 136-145 xyjq=687) POTASSIUM (BEAKER) (test 3.6 meq/L 3.5-5.1 ziug=736) CHLORIDE (BEAKER) (test 119 meq/L 98-107 szla=712) CO2 (BEAKER) (test 16 meq/L 22-29 zkzp=417) BLOOD UREA NITROGEN 7 mg/dL 7-21 (BEAKER) (test pkwc=525) CREATININE (BEAKER) (test 0.59 mg/dL 0.57-1.25 wdlm=838) GLUCOSE RANDOM (BEAKER) 89 mg/dL 70-105 (test opfq=283) CALCIUM (BEAKER) (test 8.3 mg/dL 8.4-10.2 sevp=939) EGFR (BEAKER) (test 118 mL/min/1.73 sq m ESTIMATED GFR IS NOT qeao=6291) ACCURATE CREATININE CLEARANCE IN PREDICTING GLOMERULAR FILTRATION RATE. ESTIMATED GFR IS NOT APPLICABLE FOR DIALYSIS PATIENTS. LIPID [id number] 07:11:00 Test Item Value Reference Range Comments TRIGLYCERIDES (BEAKER) (test sada=149) 75 mg/dL CHOLESTEROL (BEAKER) (test hsxw=251) 173 mg/dL HDL CHOLESTEROL (BEAKER) (test qnbd=049) 33 mg/dL LDL CHOLESTEROL CALCULATED (BEAKER) (test 125 mg/dL whfm=578) Triglyceride Reference Range: Low Risk <150 Borderline 150- 199 High Risk 200-499 Very High Risk >=500Cholesterol Reference Range: Low Risk <200 Borderline 200-239 High Risk > 240HDL Cholesterol Reference Range: Low Risk >=60 High Risk <40LDL Cholesterol Reference Range: Optimal <100 Near Optimal 100-129 Borderline 130-159 High 160-189 Very High >=190TROPONIN [id number] 06:34:00 Test Item Value Reference Range Comments TROPONIN I (BEAKER) (test luxa=148) < ng/mL 0.00-0.03 Troponin I (TnI) levels [...] acidosis, acute neurological disease, and persistent tachyarrhythmia.TROPONIN [id number] 23:58:00 Test Item Value Reference Range Comments TROPONIN I (BEPETER) (test auit=088) < ng/mL 0.00-0.03 Troponin I (TnI) levels [...]
--- OUTSIDE RECORDS SUMMARY | 2018-01-16 20:14 | XMS REPORT | Clinical Summary ---
:1985 Author Organization [facility] Address [address] [place] [address] Care Team Providers Name Role Phone Kit [...] (Primary Dx); MD Clay Vaginal bleeding after 01/15/2017 Social History Tobacco Use Types Packs/Day Years [...] Transabdominal (04/09/2017 5:28 AM) Specimen Performing Laboratory [facility] [address] [place] [address] Narrative Examination:US PELVIC TRANSABDOMINAL, US PELVIC TRANSVAGINAL [...] but no discrete measurable fibroid is seen. [facility]-[id number] Procedure Note Interface, Radiology Results [facility] - 04/09/2017 5:38 AM CDT Examination: [...] but no discrete measurable fibroid is seen. [facility]-[id number] US Pelvic Transvaginal (04/09/2017 5:28 AM) Specimen Performing Laboratory [facility] [address] [place] [address] Narrative Examination:US PELVIC TRANSABDOMINAL, US PELVIC TRANSVAGINAL [...] but no discrete measurable fibroid is seen. [facility]-[id number] Procedure Note Interface, Radiology Results Incoming - [...] but no discrete measurable fibroid is seen. [facility]-[id number] Urinalysis screen and microscopy, with reflex to [...] UA None seen Specimen Performing Laboratory Urine [facility] DEPARTMENT OF PATHOLOGY AND GENOMIC MEDICINE [address] [place] [phone] Estimated GFR (04/09/2017 2:01 AM) Component Value [...] and Americans. Specimen Performing Laboratory Plasma specimen [facility] DEPARTMENT OF PATHOLOGY AND GENOMIC MEDICINE [address] [place] [address] hCG qualitative, urine screen (04/09/2017 2:01 AM) Component Value Ref Range hCG qualitative, urine NegativeComment: Sensitivity of HCG test: 25 mIU/mL Specimen Performing Laboratory Urine [facility] DEPARTMENT OF PATHOLOGY AND GENOMIC MEDICINE [address] [place] [address] CBC with platelet and differential (04/09/2017 2:01 [...] (promyelocytes, myelocytes, metamyelocytes) Specimen Performing Laboratory Blood [facility] DEPARTMENT OF PATHOLOGY AND [facility] [address] [place] [address] Comprehensive metabolic panel (04/09/2017 2:01 AM) Component [...] Protein 7.5 6.3 - 8.3 g/dL Comment: [place] 4.6-7.0 g/dL 1 week 4.4-7.6 g/dL 7 months-1year5.1-7.3 g/dL 1-2 years5.6-7.5 g/dL >3 years6.0-8.0 g/dL 18-150 6.3-8.3 g/dL Albumin 4.0 3.5 - 5.0 g/dL A/G ratio 1.1 0.7 - 3.8 Alkaline phosphatase 71 35 - 104 U/L AST 18 10 - 35 U/L ALT 14 5 - 50 U/L Total bilirubin <0.2 0.0 - 1.2 mg/dL Specimen Performing Laboratory Plasma specimen [facility] DEPARTMENT OF PATHOLOGY AND [facility] [address] [place] [id number] Gram stain (04/09/2017 2:00 AM) Component Value Ref Range Gram stain result No WBC's Many Gram positive rods Comment: Specimen Information Specimen Source: Urine Specimen Site: See UA Specimen Performing Laboratory Urine [facility] DEPARTMENT OF PATHOLOGY AND [facility] [address] [place] [address] Urine culture (04/09/2017 2:00 AM) Component Value Ref Range Urine culture isolate Mixed Gram positive cristina 10-1 cfu/ml (A) Comment: Specimen Information Specimen Source: Urine Specimen Site: See UA Urine culture isolate Mixed Gram negative rods <10-1 cfu/ml (A) Specimen Performing Laboratory Urine [facility] DEPARTMENT OF PATHOLOGY AND GENOMIC MEDICINE [address] [place] [address] after 01/15/2017 Insurance Payer Benefit Plan / Group Subscriber ID Type Phone Address CECILY QUINTANA xxxxxxxxx Home: [address] [phone] [address]
[2018-01-16 21:01] LABS: Absolute Lymphocytes (CBC) 5.6 K/uL (0.7-4.9); Absolute Monocytes 0.9 K/uL (0.1-1.3); Absolute Neutrophil 4.7 K/uL (1.8-8.0); Basophils % 0.8 % (0-1.3); Eosinophils % 3.1 % (0-4.4); Hematocrit 36.5 % (36.0-45.0); Lymphocytes % 48.1 % (15.3-44.8); MCH 30.9 pg (27.0-35.0); MCV 90.8 fL (80-100); MPV 7.3 fL (7.6-11.3); Monocytes % 7.7 % (3.3-12.3); RBC Red Blood Cell Count 4.02 M/uL (3.86-4.86)
[2018-01-16 21:11] LABS: Protime INR 0.94
[2018-01-16 21:14] LABS: Bicarbonate 22 mEq/L (21-31); Glucose Level 109 mg/dL (65-120); Potassium 3.6 mEq/L (3.6-5.0); Sodium Level 134 mEq/L (135-145)
[2018-01-16 21:20] LABS: ALT/SGPT 17 IU/L (10-60); AST/SGOT 17 IU/L (10-42); Albumin 4.2 g/dL (3.2-5.5); Alkaline Phosphatase 67 IU/L (42-121); BUN Blood Urea Nitrogen 7 mg/dL (6-20); Bilirubin Direct < 0.1 mg/dL (0-0.2); Bilirubin Total < 0.2 mg/dL (0.3-1.2); Protein, Total 7.3 g/dL (6.0-8.3)
[2018-01-16 21:22] LABS: Alcohol Serum/Plasma < 10 mg/dl
[2018-01-16] MEDS ORDERED: NA CHLORIDE 0.9% 1,000 ML ONE (21:29)
--- NOTE | 2018-01-16 21:38 | ER ---
Nurse's Notes [facility] Name: Natasha Spann Age: 32 yrs Sex: Female : 1985 Arrival Date: 01/16/2018 Time: 20:12 Bed 15 Private MD: out of town, doctor Diagnosis: Bipolar disorder;Suicidal ideations;Abuse of other non-psychoactive substances Presentation: 01/16 20:20 Presenting complaint: Patient states: "I smoked a lot of pot before I came in"; doesn't lp1 want to live anymore, states wants to ; Denies any hallucinations, delusions. Transition of care: patient was not received from another setting of care. Onset of symptoms was January 16, 2018. Risk Assessment: Do you want to hurt yourself or someone else? Patient reports desire/thoughts of hurting themselves or someone else. Provider notified. Initial Sepsis Screen: Does the patient meet any 2 criteria? No. Patient's initial sepsis screen is negative. Does the patient have a suspected source of infection? No. Patient's initial sepsis screen is negative. Care prior to arrival: None. 20:20 Method Of Arrival: Ambulatory lp1 20:20 Acuity: EMILY 2 lp1 Triage Assessment: 20:23 General: Appears in no apparent distress. Behavior is crying. Pain: Denies pain. Neuro: lp1 Level of Consciousness is awake, alert, obeys commands, Gait is steady. 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 lp1 Historical: - Allergies: 01/17 01:59 bupropion HCl; bb 01:59 Levofloxacin; bb 01:59 Wellbutrin; bb - Home Meds: 01:59 aripiprazole 15 mg Oral tab 1 tab nightly [Active]; duloxetine 30 mg Oral cpDR 1 cap bb once daily [Active]; hydroxyzine HCl 25 mg Oral tab 4 times per day [Active]; omeprazole 40 mg Oral cpDR 1 cap once daily [Active]; propranolol 20 mg Oral tab 1 tab 2 times per day [Active]; topiramate 100 mg Oral tab 1 tab 2 times per day [Active]; trazodone 150 mg Oral tab 1 tab night prn [Active]; - PMHx: 01:59 Anxiety; Bipolar disorder; Depression; Endometrosis; Gastric Reflux; MRSA; bb osteomylitis; Ovarian cyst; - PSHx: 01:59 BKA; bb - Immunization history:: Adult Immunizations up to date. - Social history:: Smoking status: Patient uses tobacco products, smokes one pack cigarettes per day. - Ebola Screening: : No symptoms or risks identified at this time. - Family history:: not pertinent. Screenin/29 20:23 Abuse screen: Denies threats or abuse. Denies injuries from another. Nutritional lp1 screening: No deficits noted. Tuberculosis screening: No symptoms or risk factors identified. Fall Risk None identified. Assessment: 20:40 General: Appears in no apparent distress. Behavior is crying, listless, Reports "I am bb high from smoking marijuana". Pain: Denies pain. Neuro: Level of Consciousness is awake, obeys commands, listless, Oriented to person, place, situation, Facial symmetry appears normal. Cardiovascular: Heart tones S1 S2 present Capillary refill < 3 seconds Patient's skin is warm and dry. Respiratory: Airway is patent Respiratory effort is even, unlabored, Respiratory pattern is regular. GI: No signs and/or symptoms were reported involving the gastrointestinal system. Derm: Skin is dry, Skin is pale, Skin temperature is warm. Musculoskeletal: Amputation of right leg. 20:40 Reassessment: pt states she does not want to live because she "can't get my life bb together" does not have a plan. 21:00 Reassessment: pt states she will kill herself if she is discharged home she need help bb she states she will take an overdose. 22:30 Reassessment: Patient and/or family updated on plan of care and expected duration. Pain bb level reassessed. Patient is alert, oriented x 3, equal unlabored respirations, skin warm/dry/pink. pt awaiting transfer to psychiatric facility for further evaluation and treatment. 01/17 00:08 Reassessment: pt resting quietly, additional warm blankets given. bb 00:34 Reassessment: nurse to nurse given to Ester BORGES at [facility] awaiting doc to bb doc report. 02:00 Reassessment: Patient is alert, oriented x 3, equal unlabored respirations, skin bb warm/dry/pink. [facility] at bedside for transfer of pt to [facility] for further evaluation and treatment. Pt belongings sent with pt and EMS. Psych: 05/29 20:45 Subjective: Patient's mood is sad, Delusions are denied, Hallucinations are denied bb Having thoughts of suicide. Denies suicidal plan. Objective: Patient is cooperative, Speech is soft, Affect is appropriate. Interventions: Removed personal items and placed in bag. Patient placed in hospital gown. Searched person for dangerous items. Suicide Risk Assessment: Sad Person Scale: Sex of patient: Female: Score 0 points. Age of patient: Score 1 point if patient 15-34. Depression: Score 1 point if signs of depression are present. Previous Attempt: Score 1 point if patient has previously attempted suicide. Substance Abuse: Score 1 point if patient abuses alcohol or drugs. Rational Thinking: Score 0 point if patient has rational thinking. Social Support: Score 1 point if social support is lacking and/or unavailable. Organized Plan: Score 0 if patient did not have an organized plan in place. Relationship: Score 1 point if patient is , , , or for a single male Chronic Sickness: Score 1 point if patient has illness, chronic, debilitating, or severe. TOTAL POINTS: If total points are 5-6, proposed clinical action is to strongly consider hospitalization, depending upon confidence in the follow-up arrangement. Implement suicide precautions. Safety Checks: Personal items have been removed. Door is open. No visitors are present at this time. Patient uses marijuana Last use was today. 21:00 Commitment: Patient will be a voluntary commitment. bb Overdose: 20:23 Patient took Patient states smoking a lot of pot today. lp1 Vital Signs: 20:22 BP 144 / 94; Pulse 102; Resp 18; Temp 98.1(TE); Pulse Ox 98% on R/A; Weight 81.65 kg; lp1 Height 5 ft. 8 in. (172.72 cm); Pain 0/10; 21:14 BP 121 / 57; Pulse 68; Resp 16 S; Pulse Ox 100% on R/A; bb 01/17 00:08 BP 114 / 62; Pulse 61; Resp 16 S; Pulse Ox 98% on R/A; bb 01:56 BP 115 / 79; Pulse 68; Resp 18; Pulse Ox 100% on R/A; bb 01/16 20:22 Body Mass Index 27.37 (81.65 kg, 172.72 cm) lp1 ED Course: 01/16 20:12 Patient arrived in ED. as 20:13 out of town, doctor is Private Physician. as 20:21 Triage completed. lp1 20:21 Arm band placed on right wrist. lp1 20:36 Ole Epstein MD is Attending Physician. [facility] 20:45 Safety Checks: Personal items have been removed. The door is open or patient has been bb placed in a hallway bed/chair. There are no family/friend visitors at this time. 20:45 Initial lab(s) drawn, by me, sent to lab. Inserted saline lock: 22 gauge in right bb wrist, using aseptic technique. Blood collected. Missed attempt(s): 20 gauge in right hand. Bleeding controlled, band aid applied, catheter tip intact. 21:00 Safety Checks: Personal items have been removed. The door is open or patient has been bb placed in a hallway bed/chair. There are no family/friend visitors at this time. 21:10 Humera Siddiqui, RN is Primary Nurse. bb 21:14 Patient has correct armband on for positive identification. Placed in gown. Side rails bb up X2. Pulse ox on. NIBP on. 21:15 Safety Checks: Personal items have been removed. The door is open or patient has been bb placed in a hallway bed/chair. There are no family/friend visitors at this time. 21:30 Safety Checks: Personal items have been removed. The door is open or patient has been bb placed in a hallway bed/chair. There are no family/friend visitors at this time. 21:45 Safety Checks: Personal items have been removed. The door is open or patient has been bb placed in a hallway bed/chair. There are no family/friend visitors at this time. 22:00 Safety Checks: Personal items have been removed. The door is open or patient has been bb placed in a hallway bed/chair. There are no family/friend visitors at this time. 22:15 Safety Checks: Personal items have been removed. The door is open or patient has been bb placed in a hallway bed/chair. There are no family/friend visitors at this time. 22:30 Safety Checks: Personal items have been removed. The door is open or patient has been bb placed in a hallway bed/chair. There are no family/friend visitors at this time. 22:45 Safety Checks: Personal items have been removed. The door is open or patient has been bb placed in a hallway bed/chair. There are no family/friend visitors at this time. 23:00 Safety Checks: Personal items have been removed. The door is open or patient has been bb placed in a hallway bed/chair. There are no family/friend visitors at this time. 23:15 Safety Checks: Personal items have been removed. The door is open or patient has been bb placed in a hallway bed/chair. There are no family/friend visitors at this time. 23:25 called [facility] crisis line at [phone] spoke with Merry, she will eb page the outside energy sales representatives on mary ann and they will call me back. 23:30 Safety Checks: Personal items have been removed. The door is open or patient has been bb placed in a hallway bed/chair. There are no family/friend visitors at this time. 23:33 faxed all demographics and patient record to the following facilities to attempt eb transfer placement : [facility], [facility]. [facility], [facility], [facility], [facility], [facility], [facility], [facility], [facility], [facility] [place] And [facility]. 23:45 Safety Checks: Personal items have been removed. The door is open or patient has been bb placed in a hallway bed/chair. There are no family/friend visitors at this time. 01/17 00:00 Safety Checks: Personal items have been removed. The door is open or patient has been bb placed in a hallway bed/chair. There are no family/friend visitors at this time. 00:15 [facility] rep Bush is on her way and will be here in 30 minutes. eb 00:25 Ester from [facility] called to speak to the nurse caring for the patient. eb 01:04 Dr. Montoya from [facility] called to speak to ED doctor for pt consultation and eb has accepted the patient to go to their facility. 01:56 No provider procedures requiring assistance completed. IV discontinued, intact, bb bleeding controlled, No redness/swelling at site. Pressure dressing applied. Administered Medications: 01/16 21:26 Drug: NS 0.9% 1000 ml Route: IV; Rate: 1 bolus; Site: right hand; 01/17 01:00 Follow up: IV Status: Completed infusion; IV Intake: 1000ml bb Intake: 01:00 IV: 1000ml; Total: 1000ml. bb Outcome: 01/16 21:37 ER care complete, transfer ordered by . imelda 01/17 02:02 Transferred by ground EMS Transfer form completed. bb Condition: stable Instructed on the need for transfer. 02:03 Patient left the ED. bb Signatures: Ole Epstein MD MD cha Martinez, Amelia as Ballard, Brenda RN RN Fiona Alexander, JONY RN [facility] Lina Waller Corrections: (The following items were deleted from the chart) 01/16 23:47 23:38 faxed all demographics and patient record to the following facilities to attempt eb transfer placement : [facility], [facility]. [facility], [facility], [facility], [facility], [facility], [facility], [facility], [facility], [facility], [place]), And [facility]. 01/17 00:20 00:18 Reassessment: pt ambulated with steady gait to the bathroom [facility] 01/16 20:23 Allergies: bupropion HCl; [facility] 01/17 20:23 Allergies: Levofloxacin; [facility] 01/17 20:23 Allergies: Wellbutrin; [facility] 01/17 20:23 PMHx: Anxiety; [facility] 01/17 20:23 PMHx: Bipolar disorder; [facility] 01/17 20:23 PMHx: Depression; [facility] 01/17 20:23 PMHx: Endometrosis; [facility] 01/17 20:23 PMHx: Gastric Reflux; [facility] 01/17 20:23 PMHx: MRSA; [facility] 01/17 20:23 PMHx: osteomylitis; [facility] 01/17 20:23 PMHx: Ovarian cyst; lp1 gabriella 01/17 01:01/16 20:23 PSHx: BKA; lp1 01/17 02:01 00:34 Reassessment: nurse to nurse given to Ester BORGES at [facility] awaiting doc to doc bb report. bb
--- NOTE | 2018-01-16 21:39 | EDPHYS ---
Physician Documentation [facility] Name: Natasha Spann Age: 32 yrs Sex: Female : 1985 Arrival Date: 01/16/2018 Time: 20:12 Bed 15 Private MD: out of town, doctor ED Physician Ole Epstein HPI: 01/16 21:19 This 32 yrs old Female presents to ER via Ambulatory with complaints of Drug imelda Abuse, Suicidal Ideation. 21:19 The patient presents to the emergency department with depression, a history of imelda substance abuse, Type: marijuana, the amount of abuse is unknown, for years. Onset: The symptoms/episode began/occurred yesterday. Past psychiatric history: Prior diagnosis: bipolar disorder, Psychiatric medications include: Abilify, Topamax, duloxetine . Associated signs and symptoms: The patient has no apparent associated signs or symptoms. The patient has experienced similar episodes in the past, multiple times. 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 Historical: - Allergies: 01/17 01:59 bupropion HCl; bb 01:59 Levofloxacin; bb 01:59 Wellbutrin; bb - Home Meds: 01:59 aripiprazole 15 mg Oral tab 1 tab nightly [Active]; duloxetine 30 mg Oral cpDR 1 cap bb once daily [Active]; hydroxyzine HCl 25 mg Oral tab 4 times per day [Active]; omeprazole 40 mg Oral cpDR 1 cap once daily [Active]; propranolol 20 mg Oral tab 1 tab 2 times per day [Active]; topiramate 100 mg Oral tab 1 tab 2 times per day [Active]; trazodone 150 mg Oral tab 1 tab night prn [Active]; - PMHx: 01:59 Anxiety; Bipolar disorder; Depression; Endometrosis; Gastric Reflux; MRSA; bb osteomylitis; Ovarian cyst; - PSHx: 01:59 BKA; bb - Immunization history:: Adult Immunizations up to date. - Social history:: Smoking status: Patient uses tobacco products, smokes one pack cigarettes per day. - Ebola Screening: : No symptoms or risks identified at this time. - Family history:: not pertinent. ROS: 01/16 21:19 Constitutional: Negative for fever, chills, and weight loss, Eyes: Negative for injury, imelda pain, redness, and discharge, ENT: Negative for injury, pain, and discharge, Neck: Negative for injury, pain, and swelling, Cardiovascular: Negative for chest pain, palpitations, and edema, Respiratory: Negative for shortness of breath, cough, wheezing, and pleuritic chest pain, Abdomen/GI: Negative for abdominal pain, nausea, vomiting, diarrhea, and constipation, Back: Negative for injury and pain, : Negative for injury, bleeding, discharge, and swelling, MS/Extremity: Negative for injury and deformity, Skin: Negative for injury, rash, and discoloration, Neuro: Negative for headache, weakness, numbness, tingling, and seizure, Allergy/Immunology: Negative for hives, rash, and allergies, Endocrine: Negative for neck swelling, polydipsia, polyuria, polyphagia, and marked weight changes, Hematologic/Lymphatic: Negative for swollen nodes, abnormal bleeding, and unusual bruising. Psych: Positive for anxiety, upset, not suicidal now, wants to stop using drugs. Exam: 21:19 Constitutional: This is a well developed, well nourished patient who is awake, alert, imelda and in no acute distress. Head/Face: Normocephalic, atraumatic. Eyes: Pupils equal round and reactive to light, extra-ocular motions intact. Lids and lashes normal. Conjunctiva and sclera are non-icteric and not injected. Cornea within normal limits. Periorbital areas with no swelling, redness, or edema. ENT: Nares patent. No nasal discharge, no septal abnormalities noted. Tympanic membranes are normal and external auditory canals are clear. Oropharynx with no redness, swelling, or masses, exudates, or evidence of obstruction, uvula midline. Mucous membranes moist. Neck: Trachea midline, no thyromegaly or masses palpated, and no cervical lymphadenopathy. Supple, full range of motion without nuchal rigidity, or vertebral point tenderness. No Meningismus. Chest/axilla: Normal chest wall appearance and motion. Nontender with no deformity. No lesions are appreciated. Cardiovascular: Regular rate and rhythm with a normal S1 and S2. No gallops, murmurs, or rubs. Normal PMI, no JVD. No pulse deficits. Respiratory: Lungs have equal breath sounds bilaterally, clear to auscultation and percussion. No rales, rhonchi or wheezes noted. No increased work of breathing, no retractions or nasal flaring. Abdomen/GI: Soft, non-tender, with normal bowel sounds. No distension or tympany. No guarding or rebound. No evidence of tenderness throughout. Back: No spinal tenderness. No costovertebral tenderness. Full range of motion. Skin: Warm, dry with normal turgor. Normal color with no rashes, no lesions, and no evidence of cellulitis. MS/ Extremity: Pulses equal, no cyanosis. Neurovascular intact. Full, normal range of motion. Neuro: Awake and alert, GCS 15, oriented to person, place, time, and situation. Cranial nerves II-XII grossly intact. Motor strength 5/5 in all extremities. Sensory grossly intact. Cerebellar exam normal. Normal gait. 21:19 Psych: Behavior/mood is pleasant, cooperative, Affect is flat, Oriented to person, place, time, Patient has no thoughts/intents to harm self or others. Judgement / Insight is normal. Memory is normal. Vital Signs: 20:22 BP 144 / 94; Pulse 102; Resp 18; Temp 98.1(TE); Pulse Ox 98% on R/A; Weight 81.65 kg; lp1 Height 5 ft. 8 in. (172.72 cm); Pain 0/10; 21:14 BP 121 / 57; Pulse 68; Resp 16 S; Pulse Ox 100% on R/A; bb 01/17 00:08 BP 114 / 62; Pulse 61; Resp 16 S; Pulse Ox 98% on R/A; bb 01:56 BP 115 / 79; Pulse 68; Resp 18; Pulse Ox 100% on R/A; bb 01/16 20:22 Body Mass Index 27.37 (81.65 kg, 172.72 cm) lp1 MDM: 01/16 20:36 Patient medically screened. [facility] 01/16 20:37 Order name: Acetaminophen; Complete Time: 00:59 [facility] 01/16 20:37 Order name: Basic Metabolic Panel; Complete Time: 00:59 [facility] 01/16 20:37 Order name: CBC with Diff; Complete Time: 21:29 [facility] 01/16 20:37 Order name: ETOH Level; Complete Time: 00:59 [facility] 01/16 20:37 Order name: Hepatic Function; Complete Time: 00:59 [facility] 01/16 20:37 Order name: PT-INR; Complete Time: : [facility] 01/16 20:37 Order name: Ptt, Activated; Complete Time: : [facility] 01/16 20:37 Order name: Salicylate; Complete Time: 00:59 [facility] 01/16 20:37 Order name: Urine Drug Screen; Complete Time: 00:59 [facility] 01/16 20:37 Order name: EKG; Complete Time: 20:38 [facility] 01/16 20:37 Order name: TSH; Complete Time: 00: [facility] 01/16 22:37 Order name: Urine Dipstick--Ancillary (enter results); Complete Time: 00:59 01/16 22:37 Order name: Urine --Ancillary (enter results); Complete Time: 00: 01/16 20:37 Order name: Urine Test (obtain specimen); Complete Time: 22:45 [facility] 01/16 20:37 Order name: EKG - Nurse/Tech; Complete Time: 21: [facility] 01/16 20:37 Order name: IV Saline Lock; Complete Time: : [facility] 01/16 20:37 Order name: Labs collected and sent; Complete Time: 21: [facility] 01/16 20:37 Order name: Urine Dipstick-Ancillary (obtain specimen); Complete Time: 22:45 [facility] Administered Medications: 21:26 Drug: NS 0.9% 1000 ml Route: IV; Rate: 1 bolus; Site: right hand; 01/17 01:00 Follow up: IV Status: Completed infusion; IV Intake: 1000ml bb Disposition: 01/16/18 21:37 Transfer ordered to Psych Facility. Diagnosis are Bipolar disorder, Suicidal ideations, Abuse of other non-psychoactive substances. - Reason for transfer: Higher level of care. - Accepting physician is to psych. - Condition is Stable. - Problem is new. - Symptoms have improved. Signatures: Dispatcher [employer] EDOle Lei MD MD cha Ballard, Brenda RN RN Gregor Rick MD MD rn Pena, Laura, RN RN lp1 Corrections: (The following items were deleted from the chart) 01/16 20:23 Allergies: bupropion HCl; lp1 01/17 01:01/16 20:23 Allergies: Levofloxacin; lp1 01/17 01:01/16 20:23 Allergies: Wellbutrin; lp1 bb 01/17 01:01/16 20:23 PMHx: Anxiety; [facility] 01/17 01:01/16 20:23 PMHx: Bipolar disorder; [facility] 01/17 01:01/16 20:23 PMHx: Depression; [facility] 01/17 01:01/16 20:23 PMHx: Endometrosis; [facility] 01/17 01:01/16 20:23 PMHx: Gastric Reflux; [facility] 01/17 01:01/16 20:23 PMHx: MRSA; [facility] 01/17 01:01/16 20:23 PMHx: osteomylitis; [facility] 01/17 01:01/16 20:23 PMHx: Ovarian cyst; [facility] 01/17 01:01/16 20:23 PSHx: BKA; [facility] 01/17 02:03 01/16 21:37 01/16/2018 21:37 Transfer ordered to Psych Facility. Diagnosis is Bipolar bb disorder; Suicidal ideations; Abuse of other non-psychoactive substances. Reason for transfer: Higher level of care. Accepting physician is to psych. Condition is Stable. Problem is new. Symptoms have improved. imelda
[2018-01-16 21:52] LABS: Thyroid Stimulating Hormone 0.41 uIU/mL (0.34-5.60)
[2018-01-16 22:43] LABS: Urine Blood 2+ (NEG); Urine Glucose NEGATIVE (NEG); Urine Protein NEGATIVE (NEG); Urine Specific Gravity 1.015 (1.005-1.030)
[2018-01-16 22:57] LABS: Barbiturates NEGATIVE; Benzodiazepines NEGATIVE; Cocaine NEGATIVE; METHAMPHETAM NEGATIVE (NEGATIVE); Opiates NEGATIVE; Phencyclidine NEGATIVE; THC Cannibis POSITIVE
[2018-01-17 02:12] VITALS: TEMP 98.1
[2018-01-17 02:16] VITALS: BP 115/79; O2SAT 100
--- NOTE | 2018-01-17 07:43 | EKG ---
Test Date: 2018-01-16 Test Time: 21:12:26 Plc Technician: MEASUREMENT RESULTS: Intervals: Rate: 65 AL: 160 QRSD: 86 QT: 404 QTc: 420 Otto: P: 38 AL: 160 QRS: 80 T: 42 INTERPRETIVE STATEMENTS: Normal sinus rhythm Nonspecific T wave abnormality Abnormal ECG Compared to ECG 11/02/2017 10:14:35 T-wave abnormality now present Sinus bradycardia no longer present Electronically Signed On 01-17-18 07:42:42 CDT by Ha Krishnamurthy
== END 2018-01-17 02:03 ==
LOC: ER 20:12
DX: F31.9 Bipolar disorder, unspecified (principal); R45.851 Suicidal ideations; F12.10 Cannabis abuse, uncomplicated; F41.9 Anxiety disorder, unspecified; K21.9 Gastro-esophageal reflux disease without esophagitis; F17.210 Nicotine dependence, cigarettes, uncomplicated; Z88.1 Allergy status to other antibiotic agents; Z88.3 Allergy status to other anti-infective agents
CPT/HCPCS: 36415; 80048; 80076; 80307; 80320; 80329; 81003; 81025; 84443; 85025; 85610; 85730; 93005; 96360; 96361; 99285; J7030

== ENCOUNTER 2018-08-12 16:58 | Emergency (ER) | payer OTHER ==
--- OUTSIDE RECORDS SUMMARY | 2018-08-12 17:00 | XMS REPORT | Clinical Summary ---
:1985 Author Organization [facility] Address [address] [place] [address] Care Team Providers Name Role Phone Kit Hayes PA-C Primary Care Provider Allergies Active Allergy Reactions Severity Noted Date Comments Levofloxacin 04/09/2017 Bupropion Hcl 04/09/2017 Medications Not on file Active Problems Not on file Social History Tobacco Use Types Packs/Day Years Used Date Never Smoker Alcohol Use Drinks/Week oz/Week Comments No Sex Assigned at Date Recorded Not on file Job Start Date Occupation Industry Not on file Not on file Not on file Travel History Travel Start Travel End No recent travel history available. Last Filed Vital Signs Not on file Plan of Treatment Health Maintenance Due Date Last Done Comments CERVICAL CANCER SCREENING 2006 INFLUENZA VACCINE 03/21/2018 Results Not on fileafter 08/11/2017 Insurance Payer Benefit Plan / Group Subscriber ID Type Phone Address FOR LIFE xxxxxxxxx Advance Directives Patient has advance care planning documents on file. For more information, please contact:[facility] [place] [address]
--- OUTSIDE RECORDS SUMMARY | 2018-08-12 17:01 | XMS REPORT ---
:1985 [facility] Address [address] [place] [id number] Care Team Providers Name Role Phone JOYCE FOLEY Unavailable Unavailable Problems This patient has no known problems. Allergies, Adverse Reactions, Alerts This patient has no known allergies or adverse reactions. Medications This patient has no known medications. Encounters Start End Encounter Admission Attending Care Care Encounter Date/Time Date/Time Type Type Clinicians Facility Department ID 2017-04-09 2017-04-09 [facility] [id number] 00:00:00 00:00:00 2017-04-09 2017-04-09 [facility] [id number] 00:00:00 00:00:00 2017-04-08 2017-04-08 [facility] [id number] 22:35:00 22:35:00 2017-04-08 2017-04-08 [facility] [id number] 00:00:00 00:00:00 Results Test Description Test Time Test Comments Text Results Atomic Results Result Comments HEMOGLOBIN A1C 2017-07-16 13:26:00 Test Item Value Reference Range Comments HEMOGLOBIN A1C (BEAKER) (test kmxt=456) 5.2 % 4.3-6.1 CBC W/PLT COUNT & AUTO [id number] 09:42:00 Test Item Value Reference Range Comments WHITE BLOOD CELL COUNT (BEAKER) (test mzsm=952) 8.3 K/ L 3.5-10.5 RED BLOOD CELL COUNT (BEAKER) (test cvok=285) 3.47 M/ L 3.93-5.22 HEMOGLOBIN (BEAKER) (test umsx=260) 10.3 GM/DL 11.2-15.7 HEMATOCRIT (BEAKER) (test earq=173) 32.8 % 34.1-44.9 MEAN CORPUSCULAR VOLUME (BEAKER) (test ahbn=985) 94.5 fL 79.4-94.8 MEAN CORPUSCULAR HEMOGLOBIN (BEAKER) (test 29.7 pg 25.6-32.2 pvwp=256) MEAN CORPUSCULAR HEMOGLOBIN CONC (BEAKER) (test 31.4 GM/DL 32.2-35.5 hetu=937) RED CELL DISTRIBUTION WIDTH (BEAKER) (test 13.1 % 11.7-14.4 cddy=543) PLATELET COUNT (BEAKER) (test kfqs=162) 284 K/CU MM 150-450 MEAN PLATELET VOLUME (BEAKER) (test ysmo=911) 9.7 fL 9.4-12.3 NUCLEATED RED BLOOD CELLS (BEAKER) (test 0 /100 WBC 0-0 fcbl=169) IMMATURE GRANULOCYTES-RELATIVE PERCENT (BEAKER) 0 % 0-1 (test neiq=6718) (MANUAL DIFFERENTIAL)2017-07-16 09:42:00 Test Item Value Reference Range Comments NEUTROPHILS - REL (DIFF) (BEAKER) (test cucm=2257) 36 % LYMPHOCYTES - REL (DIFF) (BEAKER) (test pgdw=5100) 53 % MONOCYTES - REL (DIFF) (BEAKER) (test sytl=4690) 4 % EOSINOPHILS - REL (DIFF) (BEAKER) (test rzrg=9422) 2 % BASOPHILS - REL (DIFF) (BEAKER) (test ouzj=1544) 2 % ATYPICAL LYMPHOCYTE - REL (DIFF) (BEAKER) (test 3 % 0-0 jtlm=456) NEUTROPHILS - ABS (DIFF) (BEAKER) (test yrje=1330) 2.99 K/ L 1.80-8.00 LYMPHOCYTES - ABS (DIFF) (BEAKER) (test vlqz=8786) 4.40 K/ L 1.48-4.50 MONOCYTES - ABS (DIFF) (BEAKER) (test umyx=0656) 0.33 K/ L 0.00-1.30 EOSINOPHILS - ABS (DIFF) (BEAKER) (test nvpa=4730) 0.17 K/ L 0.00-0.50 BASOPHILS - ABS (DIFF) (BEAKER) (test ujav=2297) 0.17 K/ L 0.00-0.20 ATYPICAL LYMPHOCYTES - ABS (DIFF) (BEAKER) (test 0.25 K/ L 0.00-0.00 rvum=946) TOTAL COUNTED (BEAKER) (test zlqw=5599) 100 WBC MORPHOLOGY (BEAKER) (test wsln=621) Normal PLT MORPHOLOGY (BEAKER) (test fljd=484) Normal RBC MORPHOLOGY (BEAKER) (test ngrz=854) Normal [id number] 07:11:00 Test Item Value Reference Range Comments MAGNESIUM (BEAKER) (test nnst=420) 1.5 mg/dL 1.6-2.6 BASIC METABOLIC [id number] 07:11:00 Test Item Value Reference Range Comments SODIUM (BEAKER) (test 140 meq/L 136-145 rvyh=691) POTASSIUM (BEAKER) (test 3.6 meq/L 3.5-5.1 gxhw=227) CHLORIDE (BEAKER) (test 119 meq/L 98-107 xbmb=627) CO2 (BEAKER) (test 16 meq/L 22-29 bhks=172) BLOOD UREA NITROGEN 7 mg/dL 7-21 (BEAKER) (test aghv=674) CREATININE (BEAKER) (test 0.59 mg/dL 0.57-1.25 lenx=594) GLUCOSE RANDOM (BEAKER) 89 mg/dL 70-105 (test gjib=397) CALCIUM (BEAKER) (test 8.3 mg/dL 8.4-10.2 lxgz=439) EGFR (BEAKER) (test 118 mL/min/1.73 sq m ESTIMATED GFR IS NOT wfzh=8327) ACCURATE CREATININE CLEARANCE IN PREDICTING GLOMERULAR FILTRATION RATE. ESTIMATED GFR IS NOT APPLICABLE FOR DIALYSIS PATIENTS. LIPID [id number] 07:11:00 Test Item Value Reference Range Comments TRIGLYCERIDES (BEAKER) (test mbra=220) 75 mg/dL CHOLESTEROL (BEAKER) (test iduo=652) 173 mg/dL HDL CHOLESTEROL (BEAKER) (test lrhj=326) 33 mg/dL LDL CHOLESTEROL CALCULATED (BEAKER) (test 125 mg/dL qxfe=947) Triglyceride Reference Range: Low Risk <150 Borderline 150- 199 High Risk 200-499 Very High Risk >=500Cholesterol Reference Range: Low Risk <200 Borderline 200-239 High Risk > 240HDL Cholesterol Reference Range: Low Risk >=60 High Risk <40LDL Cholesterol Reference Range: Optimal <100 Near Optimal 100-129 Borderline 130-159 High 160-189 Very High >=190TROPONIN [id number] 06:34:00 Test Item Value Reference Range Comments TROPONIN I (BEAKER) (test ptfv=530) < ng/mL 0.00-0.03 Troponin I (TnI) levels [...] acidosis, acute neurological disease, and persistent tachyarrhythmia.TROPONIN [id number] 23:58:00 Test Item Value Reference Range Comments TROPONIN I (BEPETER) (test zelq=094) < ng/mL 0.00-0.03 Troponin I (TnI) levels [...]
--- OUTSIDE RECORDS SUMMARY | 2018-08-12 17:01 | XMS REPORT | Clinical Summary ---
:1985 Author Organization [facility] Address [address] [place] [address] Care Team Providers Name Role Phone Cathy Primary Care Provider Allergies Active Allergy Reactions Severity Noted Date Comments Levofloxacin In D5w Other (See Comments) High 07/15/2017 Severe joint pain Bupropion Hcl Other (See Comments) High 07/15/2017 hallucinations Medications Medication Sig Dispensed Refills Start Date End Date Status DULoxetine (CYMBALTA) 30 Take 30 mg by 0 Active MG capsuleIndications: mouth daily. Anxiety with Depression topiramate (TOPAMAX) 100 Take 100 mg by 0 Active MG tablet mouth 2 (two) times daily. omeprazole (PRILOSEC) 40 Take 40 mg by 0 Active MG capsuleIndications: mouth daily. gastroesophageal reflux disease hydrOXYzine (ATARAX) 25 MG Take 25 mg by 0 Active tabletIndications: anxiety mouth 4 (four) times daily. propranolol (INDERAL) 20 Take 20 mg by 0 Active MG tabletIndications: mouth 2 (two) RESTLESS LEG SYNDROME times daily. traZODone (DESYREL) 150 MG Take 150 mg by 0 Active tablet mouth nightly. ARIPiprazole (ABILIFY) 15 Take 15 mg by 0 Active MG tablet mouth nightly. Active Problems Problem Noted Date Chest pain 07/15/2017 Family History Medical History Relation Name Comments [...] Signs Not on file Plan of Treatment Not on file Results Not on fileafter 08/11/2017 Insurance Payer Benefit Plan / Group Subscriber ID Type Phone Address xxxxxxxxx Other Govt (, [place], [facility], etc.) Advance Directives For more information, please contact:[address] [phone] Code Status Date Activated Date Inactivated Comments Full Code 07/15/2017 10:38 PM 07/16/2017 5:00 PM This code status was determined by: Patient
[2018-08-12] MEDS ORDERED: NA CHLORIDE 0.9% 1,000 ML ONE (18:14)
[2018-08-12] MEDS ORDERED: KETOROLAC 30 MG/ML INJ ONE (18:14)
--- NOTE | 2018-08-12 18:19 | RAD REPORT ---
EXAM DESCRIPTION: CTAbdomen Pelvis W Contrast - 08/12/2018 6:09 pm CLINICAL HISTORY: Abdominal pain. ABD PAIN COMPARISON: Abdomen Pelvis W Contrast dated 09/16/2017; Abdomen Pelvis W Contrast dated 6; Abdomen Pelvis W Contrast dated 02/12/2016 TECHNIQUE: Biphasic CT imaging of the abdomen and pelvis was performed with 100 ml non-ionic IV cont rast. All CT scans are performed using dose optimization technique as appropriate and may include automated exposure control or mA/KV adjustment according to patient size. FINDINGS: The lung bases are clear. The spleen, pancreas, adrenal glands and kidneys are within normal limits. A few tiny low-density he patic lesions are likely benign. No worrisome hepatic finding. . No bowel obstruction, free air, free fluid or abscess. The appendix is normal. No evidence of signi ficant lymphadenopathy. No suspicious bony findings. IMPRESSION: No acute intra-abdominal or pelvic finding.
[2018-08-12 18:23] LABS: BUN Blood Urea Nitrogen 11 mg/dL (7-18); Bicarbonate 25 mmol/L (21-32); Glucose Level 92 mg/dL (74-106); Potassium 3.6 mmol/L (3.5-5.1); Sodium Level 139 mmol/L (136-145)
[2018-08-12 18:24] LABS: ALT/SGPT 24 U/L (12-78); AST/SGOT 13 U/L (15-37); Albumin 3.8 g/dL (3.4-5.0); Alkaline Phosphatase 105 U/L (45-117); Bilirubin Direct < 0.1 mg/dL (0-0.2); Bilirubin Total 0.2 mg/dL (0.2-1.0); Lipase 160 U/L (73-393); Protein, Total 7.4 g/dL (6.4-8.2)
[2018-08-12] MEDS ORDERED: ONDANSETRON 4 MG/2 ML VIAL ONE (18:26)
[2018-08-12 18:37] LABS: Absolute Monocytes 0.8 K/uL (0.1-1.3); Absolute Neutrophil 8.5 K/uL (1.8-8.0); Basophils % 0.6 % (0-1.3); Eosinophils % 1.6 % (0-4.4); Lymphocytes % 23.8 % (15.3-44.8); MCH 29.8 pg (27.0-35.0); MCV 88.4 fL (80-100); MPV 8.3 fL (7.6-11.3); Monocytes % 6.3 % (3.3-12.3); RBC Red Blood Cell Count 4.42 M/uL (3.86-4.86)
--- NOTE | 2018-08-12 19:54 | EDPHYS ---
Physician Documentation [facility] Name: Natasha Spann Age: 33 yrs Sex: Female : 1985 Arrival Date: 08/12/2018 Time: 17:02 Bed 18 Private MD: ED Physician Basil Dove HPI: 08/12 18:00 This 33 yrs old Female presents to ER via Ambulatory with complaints of pm1 Abdominal pain. 18:00 The patient presents with abdominal pain suprapubic area. Onset: The symptoms/episode pm1 began/occurred 3 day(s) ago. The symptoms do not radiate. Associated signs and symptoms: Pertinent positives: nausea and vomiting, diarrhea, Pertinent negatives: chest pain, dysuria, fever, shortness of breath, vaginal discharge. The symptoms are described as crampy. Modifying factors: The symptoms are alleviated by nothing, the symptoms are aggravated by nothing. Severity of pain: in the emergency department the pain is unchanged. The patient has experienced similar episodes in the past, a few times, today's symptoms are similar, to previous endometriosis. The patient has not recently seen a physician. DIRECTOR ECONOMIC: 17:28 LMP 08/01/2018 aa5 Historical: - Allergies: 17:02 bupropion HCl; la1 17:02 Levofloxacin; la1 17:02 Wellbutrin; la1 - PMHx: 17:02 Anxiety; Bipolar disorder; Depression; Endometrosis; Gastric Reflux; MRSA; la1 osteomylitis; Ovarian cyst; - Immunization history:: Adult Immunizations up to date. - Social history:: Smoking status: Patient/guardian denies using tobacco. - Ebola Screening: : No symptoms or risks identified at this time. ROS: 18:00 Constitutional: Negative for fever, chills, and weight loss, Eyes: Negative for injury, pm1 pain, redness, and discharge, ENT: Negative for injury, pain, and discharge, Neck: Negative for injury, pain, and swelling, Cardiovascular: Negative for chest pain, palpitations, and edema, Respiratory: Negative for shortness of breath, cough, wheezing, and pleuritic chest pain. 18:00 Back: Negative for injury and pain, : Negative for injury, bleeding, discharge, and swelling, MS/Extremity: Negative for injury and deformity, Skin: Negative for injury, rash, and discoloration, Neuro: Negative for headache, weakness, numbness, tingling, and seizure. 18:00 Abdomen/GI: Positive for abdominal pain, nausea, vomiting, and diarrhea. Exam: 18:00 Constitutional: This is a well developed, well nourished patient who is awake, alert, pm1 and in no acute distress. Head/Face: Normocephalic, atraumatic. Eyes: Pupils equal round and reactive to light, extra-ocular motions intact. Lids and lashes normal. Conjunctiva and sclera are non-icteric and not injected. Cornea within normal limits. Periorbital areas with no swelling, redness, or edema. ENT: Nares patent. No nasal discharge, no septal abnormalities noted. Tympanic membranes are normal and external auditory canals are clear. Oropharynx with no redness, swelling, or masses, exudates, or evidence of obstruction, uvula midline. Mucous membranes moist. Neck: Trachea midline, no thyromegaly or masses palpated, and no cervical lymphadenopathy. Supple, full range of motion without nuchal rigidity, or vertebral point tenderness. No Meningismus. Chest/axilla: Normal chest wall appearance and motion. Nontender with no deformity. No lesions are appreciated. Cardiovascular: Regular rate and rhythm with a normal S1 and S2. No gallops, murmurs, or rubs. Normal PMI, no JVD. No pulse deficits. Respiratory: Lungs have equal breath sounds bilaterally, clear to auscultation and percussion. No rales, rhonchi or wheezes noted. No increased work of breathing, no retractions or nasal flaring. Abdomen/GI: Soft, non-tender, with normal bowel sounds. No distension or tympany. No guarding or rebound. No evidence of tenderness throughout. Back: No spinal tenderness. No costovertebral tenderness. Full range of motion. Skin: Warm, dry with normal turgor. Normal color with no rashes, no lesions, and no evidence of cellulitis. MS/ Extremity: Pulses equal, no cyanosis. Neurovascular intact. Full, normal range of motion. 18:00 Neuro: Orientation: is normal, Motor: is normal, moves all fours. Vital Signs: 17:04 Pulse 89; Resp 16; Temp 97.2(TE); Pulse Ox 98% on R/A; Weight 86.18 kg; Height 5 ft. 8 la1 in. (172.72 cm); 17:05 BP 129 / 93; la1 18:21 BP 136 / 72; Pulse 84; Resp 16 S; Pulse Ox 99% on R/A; Pain 8/10; aa5 19:10 BP 110 / 64; Pulse 61; Resp 17; Temp 98.4; Pulse Ox 98% ; Pain 0/10; rr5 20:00 BP 113 / 60; Pulse 62; Resp 16; Pulse Ox 99% ; rr5 17:04 Body Mass Index 28.89 (86.18 kg, 172.72 cm) la1 MDM: 17:36 Patient medically screened. pm1 19:52 Data reviewed: vital signs. Data interpreted: Pulse oximetry: on room air is 98 %. pm1 Interpretation: normal. Counseling: I had a detailed discussion with the patient and/or guardian regarding: the historical points, exam findings, and any diagnostic results supporting the discharge/admit diagnosis, lab results, radiology results, the need for outpatient follow up, to return to the emergency department if symptoms worsen or persist or if there are any questions or concerns that arise at home. 08/12 17:22 Order name: Urine Dipstick--Ancillary (enter results) 08/12 17:22 Order name: Urine --Ancillary (enter results) 08/12 17:39 Order name: Basic Metabolic Panel; Complete Time: 18:33 pm1 08/12 17:39 Order name: CBC with Diff; Complete Time: 18:53 pm1 08/12 17:39 Order name: Creatinine for Radiology; Complete Time: 18:33 pm1 08/12 17:39 Order name: Hepatic Function; Complete Time: 18:33 pm1 08/12 17:39 Order name: Lipase; Complete Time: 18:33 pm1 08/12 17:39 Order name: IV Saline Lock; Complete Time: 18:20 pm1 08/12 17:39 Order name: Labs collected and sent; Complete Time: 18:20 pm1 08/12 17:40 Order name: CT Abd/Pelvis - W/Contrast; Complete Time: 18:33 pm1 Administered Medications: 18:10 Drug: NS 0.9% 1000 ml Route: IV; Rate: 1000 ml; Site: right antecubital; aa5 19:55 Follow up: Response: No adverse reaction; IV Status: Order to discontinue infusion; IV rr5 Intake: 500ml 18:10 Drug: TORadol 30 mg Route: IVP; Site: right antecubital; aa5 18:25 Follow up: Response: No adverse reaction aa5 18:21 Drug: Zofran 4 mg Route: IVP; Site: right antecubital; aa5 18:26 Follow up: Response: No adverse reaction aa5 Disposition: 08/12/18 19:53 Discharged to Home. Impression: Unspecified abdominal pain. - Condition is Stable. - Discharge Instructions: Abdominal Pain, Adult, Nausea and Vomiting, Adult. - Prescriptions for Zofran 4 mg Oral Tablet - take 1 tablet by ORAL route every 12 hours As needed; 20 tablet. Bentyl 20 mg Oral Tablet - take 1 tablet by ORAL route every 6 hours As needed; 20 tablet. - Medication Reconciliation Form, Thank You Letter, Antibiotic Education, Prescription Opioid Use form. - Follow up: Emergency Department; When: As needed; Reason: Worsening of condition. Follow up: Private Physician; When: 2 - 3 days; Reason: Recheck today's complaints, Continuance of care, Re-evaluation by your physician. - Problem is new. - Symptoms have improved. Signatures: Dispatcher [employer] EDMS Meghan Quinteros RN RN aa5 Salvador Ramirez RN RN la1 Jamal Rodas NP BEHAVIORAL HEALTH WORKER pm1 Adan Ferreira RN RN rr5 Corrections: (The following items were deleted from the chart) 20:35 19:53 08/12/2018 19:53 Discharged to Home. Impression: Unspecified abdominal pain. rr5 Condition is Stable. Forms are Medication Reconciliation Form, Thank You Letter, Antibiotic Education, Prescription Opioid Use. Follow up: Emergency Department; When: As needed; Reason: Worsening of condition. Follow up: Private Physician; When: 2 - 3 days; Reason: Recheck today's complaints, Continuance of care, Re-evaluation by your physician. Problem is new. Symptoms have improved. pm1
--- NOTE | 2018-08-12 19:54 | ER ---
Nurse's Notes [facility] Name: Natasha Spann Age: 33 yrs Sex: Female : 1985 Arrival Date: 08/12/2018 Time: 17:02 Bed 18 Private MD: Diagnosis: Unspecified abdominal pain Presentation: 08/12 17:02 Presenting complaint: Patient states: I have had really bad pelvic pain, cramping and la1 clear discharge for the last few days. LMP one week ago. Transition of care: patient was not received from another setting of care. Onset of symptoms was August 12, 2018. Risk Assessment: Do you want to hurt yourself or someone else? Patient reports no desire to harm self or others. Initial Sepsis Screen: Does the patient meet any 2 criteria? No. Patient's initial sepsis screen is negative. Does the patient have a suspected source of infection? No. Patient's initial sepsis screen is negative. Care prior to arrival: None. 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 - Social history:: Smoking status: Patient/guardian denies using tobacco. - Ebola Screening: : No symptoms or risks identified at this time. Screenin:27 Abuse screen: Denies threats or abuse. Nutritional screening: No deficits noted. aa5 Tuberculosis screening: No symptoms or risk factors identified. Fall Risk None identified. Assessment: 17:20 General: Appears comfortable, Behavior is calm, cooperative. Pain: Complains of pain in aa5 pelvis Pain does not radiate. Pain currently is 8 out of 10 on a pain scale. Quality of pain is described as crampy, Pain began 2-3 days ago. Is continuous. Neuro: Level of Consciousness is awake, alert, obeys commands, Oriented to person, place, time, situation. Cardiovascular: Heart tones S1 S2 present Rhythm is regular. Respiratory: Airway is patent Respiratory effort is even, unlabored, Respiratory pattern is regular, symmetrical, Breath sounds are clear bilaterally. GI: Abdomen is round non-distended, Bowel sounds present X 4 quads. Abd is soft and non tender X 4 quads. in suprapubic area Reports diarrhea, nausea, vomiting, since 2 days ago. : Reports discharge, that is clear Denies burning with urination, inability to void. EENT: Reports nasal congestion. Derm: Skin is pink, warm \T\ dry. Musculoskeletal: Range of motion: intact in all extremities. 17:57 Reassessment: Pt to CT. aa5 18:20 Reassessment: Patient and/or family updated on plan of care and expected duration. Pain aa5 level reassessed. Patient is alert, oriented x 3, equal unlabored respirations, skin warm/dry/pink. 19:10 General: Appears in no apparent distress. comfortable, Behavior is calm, cooperative, rr5 appropriate for age. Pain: Denies pain. Neuro: Level of Consciousness is awake, alert, obeys commands, Oriented to person, place, time, situation. Cardiovascular: Capillary refill < 3 seconds Patient's skin is warm and dry. Respiratory: Airway is patent Respiratory effort is even, unlabored, Respiratory pattern is regular, symmetrical. GI: Abdomen is flat, non-distended. : Reports discharge, clear. EENT: Reports nasal congestion. Derm: Skin is pink, warm \T\ dry. Musculoskeletal: Capillary refill < 3 seconds, Range of motion: intact in all extremities. 20:00 Reassessment: Patient appears in no apparent distress at this time. Patient and/or rr5 family updated on plan of care and expected duration. Pain level reassessed. review done. reassess by anuel FLOOD. patient is discharge instruction explained. Patient states feeling better. Patient states symptoms have improved. 20:10 Reassessment: Patient appears in no apparent distress at this time. patient left rr5 refused to sign discharge instruction. ED provider and charge nurse informed. Vital Signs: 17:04 Pulse 89; Resp 16; Temp 97.2(TE); Pulse Ox 98% on R/A; Weight 86.18 kg; Height 5 ft. 8 la1 in. (172.72 cm); 17:05 BP 129 / 93; la1 18:21 BP 136 / 72; Pulse 84; Resp 16 S; Pulse Ox 99% on R/A; Pain 8/10; aa5 19:10 BP 110 / 64; Pulse 61; Resp 17; Temp 98.4; Pulse Ox 98% ; Pain 0/10; rr5 20:00 BP 113 / 60; Pulse 62; Resp 16; Pulse Ox 99% ; rr5 17:04 Body Mass Index 28.89 (86.18 kg, 172.72 cm) la1 ED Course: 17:02 Patient arrived in ED. mr 17:03 Triage completed. la1 17:03 Arm band placed on left wrist. la1 17:06 Meghan Quinteros, JONY is Primary Nurse. aa5 17:20 Patient has correct armband on for positive identification. Bed in low position. Call aa5 light in reach. Side rails up X2. 17:22 Anuel Rodas NP is PHCP. pm1 17:22 Basil Dove MD is Attending Physician. pm1 17:28 No provider procedures requiring assistance completed. aa5 17:55 Initial lab(s) drawn, by pr, sent to lab. Inserted saline lock: 20 gauge in right aa5 antecubital area, using aseptic technique. Blood collected. 18:10 CT Abd/Pelvis - W/Contrast In Process Unspecified. EDMS 18:59 Report given to JONY Arellano. aa5 19:55 IV discontinued, intact, bleeding controlled, No redness/swelling at site. Pressure gm dressing applied. 19:55 IV discontinued, intact, bleeding controlled, No redness/swelling at site. Pressure rr5 dressing applied, removed by sophie brownfield redevelopment site manager. Administered Medications: 18:10 Drug: NS 0.9% 1000 ml Route: IV; Rate: 1000 ml; Site: right antecubital; aa5 19:55 Follow up: Response: No adverse reaction; IV Status: Order to discontinue infusion; IV rr5 Intake: 500ml 18:10 Drug: TORadol 30 mg Route: IVP; Site: right antecubital; aa5 18:25 Follow up: Response: No adverse reaction aa5 18:21 Drug: Zofran 4 mg Route: IVP; Site: right antecubital; aa5 18:26 Follow up: Response: No adverse reaction aa5 Intake: 19:55 IV: 500ml; Total: 500ml. rr5 Outcome: 19:53 Discharge ordered by . pm1 20:15 Discharged to home ambulatory. rr5 20:15 Condition: stable 20:15 Discharge instructions given to patient, Instructed on discharge instructions, follow up and referral plans. Demonstrated understanding of instructions, follow-up care, medications, refused to sign and left 20:35 Patient left the ED. rr5 Signatures: Dispatcher [employer] EDCT JusticeBelinda AldairMeghan RN RN aa5 Salvador Ramirez RN RN la1 Anuel Rodas, OCEAN EXPORT COORDINATOR OCEAN EXPORT COORDINATOR pm1 Adan Ferreira RN RN rr5 Lorena Jeffery gm
[2018-08-12 20:38] LABS: Urine Blood NEGATIVE (NEG); Urine Glucose NEGATIVE (NEG); Urine Protein NEGATIVE (NEG)
[2018-08-12 20:56] VITALS: TEMP 98.4
[2018-08-12 20:58] VITALS: BP 113/60; O2SAT 99
== END 2018-08-12 20:35 | disposition home or self-care (01) ==
LOC: ER 16:58
DX: R10.9 Unspecified abdominal pain (principal); R11.2 Nausea with vomiting, unspecified; Z88.1 Allergy status to other antibiotic agents; Z88.5 Allergy status to narcotic agent; Z88.8 Allergy status to other drugs, medicaments and biological substances
CPT/HCPCS: 36415; 74177; 80048; 80076; 81003; 81025; 83690; 85025; 96361; 96374; 96375; 99284; J2405; J7030; Q9967

== ENCOUNTER 2018-09-24 20:16 | Emergency (ER) | payer OTHER ==
--- OUTSIDE RECORDS SUMMARY | 2018-09-24 20:18 | XMS REPORT | Clinical Summary ---
:1985 Author Organization [facility] Address [address] [place] [address] Care Team Providers Name Role Phone Kit Haeys PA-C Primary Care Provider Allergies Active Allergy [...] INFLUENZA VACCINE 03/21/2018 Results Not on fileafter 09/23/2017 Insurance Payer Benefit Plan / Group Subscriber ID Type Phone Address FOR LIFE xxxxxxxxx Advance Directives Patient has advance care planning documents on file. For more information, please contact:[facility] [place] [address]
--- OUTSIDE RECORDS SUMMARY | 2018-09-24 20:19 | XMS REPORT ---
:1985 [facility] [address] [place] [id number] Care Team Providers Name Role Phone JOYCE FOLEY Unavailable Unavailable Problems This patient has no known problems. Allergies, Adverse Reactions, Alerts This patient has no known allergies or adverse reactions. Medications This patient has no known medications. Encounters Start End Encounter Admission Attending Care Care Encounter Date/Time Date/Time Type Type Clinicians Facility Department ID 2017-04-09 2017-04-09 [facility] [id number] 00:00:00 00:00:00 2017-04-09 2017-04-09 [facility] [id number] 00:00:00 00:00:00 2017-04-08 2017-04-08 [facility] [id number] 22:35:00 22:35:00 2017-04-08 2017-04-08 [facility] [id number] 00:00:00 00:00:00 Results Test Description Test Time Test Comments Text Results Atomic Results Result Comments HEMOGLOBIN A1C 2017-07-16 13:26:00 Test Item Value Reference Range Comments HEMOGLOBIN A1C (BEAKER) (test mfnn=900) 5.2 % 4.3-6.1 CBC W/PLT COUNT & AUTO [id number] 09:42:00 Test Item Value Reference Range Comments WHITE BLOOD CELL COUNT (BEAKER) (test kmma=040) 8.3 K/ L 3.5-10.5 RED BLOOD CELL COUNT (BEAKER) (test kvtp=261) 3.47 M/ L 3.93-5.22 HEMOGLOBIN (BEAKER) (test cuhp=973) 10.3 GM/DL 11.2-15.7 HEMATOCRIT (BEAKER) (test vyhu=965) 32.8 % 34.1-44.9 MEAN CORPUSCULAR VOLUME (BEAKER) (test chte=850) 94.5 fL 79.4-94.8 MEAN CORPUSCULAR HEMOGLOBIN (BEAKER) (test 29.7 pg 25.6-32.2 hpwo=646) MEAN CORPUSCULAR HEMOGLOBIN CONC (BEAKER) (test 31.4 GM/DL 32.2-35.5 vepf=300) RED CELL DISTRIBUTION WIDTH (BEAKER) (test 13.1 % 11.7-14.4 ktyp=069) PLATELET COUNT (BEAKER) (test whwu=742) 284 K/CU MM 150-450 MEAN PLATELET VOLUME (BEAKER) (test rkcg=742) 9.7 fL 9.4-12.3 NUCLEATED RED BLOOD CELLS (BEAKER) (test 0 /100 WBC 0-0 nrka=168) IMMATURE GRANULOCYTES-RELATIVE PERCENT (BEAKER) 0 % 0-1 (test jvnr=3973) (MANUAL DIFFERENTIAL)2017-07-16 09:42:00 Test Item Value Reference Range Comments NEUTROPHILS - REL (DIFF) (BEAKER) (test rmai=6538) 36 % LYMPHOCYTES - REL (DIFF) (BEAKER) (test lkkn=9417) 53 % MONOCYTES - REL (DIFF) (BEAKER) (test aszt=6477) 4 % EOSINOPHILS - REL (DIFF) (BEAKER) (test jjxm=6451) 2 % BASOPHILS - REL (DIFF) (BEAKER) (test empn=3055) 2 % ATYPICAL LYMPHOCYTE - REL (DIFF) (BEAKER) (test 3 % 0-0 qhxk=704) NEUTROPHILS - ABS (DIFF) (BEAKER) (test gvpa=2903) 2.99 K/ L 1.80-8.00 LYMPHOCYTES - ABS (DIFF) (BEAKER) (test anlw=7694) 4.40 K/ L 1.48-4.50 MONOCYTES - ABS (DIFF) (BEAKER) (test whcp=2098) 0.33 K/ L 0.00-1.30 EOSINOPHILS - ABS (DIFF) (BEAKER) (test ishh=4149) 0.17 K/ L 0.00-0.50 BASOPHILS - ABS (DIFF) (BEAKER) (test habw=9263) 0.17 K/ L 0.00-0.20 ATYPICAL LYMPHOCYTES - ABS (DIFF) (BEAKER) (test 0.25 K/ L 0.00-0.00 dcfz=012) TOTAL COUNTED (BEAKER) (test wspw=1387) 100 WBC MORPHOLOGY (BEAKER) (test ndbm=602) Normal PLT MORPHOLOGY (BEAKER) (test nhhe=828) Normal RBC MORPHOLOGY (BEAKER) (test xksp=727) Normal [id number] 07:11:00 Test Item Value Reference Range Comments MAGNESIUM (BEAKER) (test etto=057) 1.5 mg/dL 1.6-2.6 BASIC METABOLIC [id number] 07:11:00 Test Item Value Reference Range Comments SODIUM (BEAKER) (test 140 meq/L 136-145 imjk=669) POTASSIUM (BEAKER) (test 3.6 meq/L 3.5-5.1 kjba=044) CHLORIDE (BEAKER) (test 119 meq/L 98-107 jyzf=823) CO2 (BEAKER) (test 16 meq/L 22-29 qdql=359) BLOOD UREA NITROGEN 7 mg/dL 7-21 (BEAKER) (test czlf=376) CREATININE (BEAKER) (test 0.59 mg/dL 0.57-1.25 wnhw=170) GLUCOSE RANDOM (BEAKER) 89 mg/dL 70-105 (test ceoi=110) CALCIUM (BEAKER) (test 8.3 mg/dL 8.4-10.2 cmom=644) EGFR (BEAKER) (test 118 mL/min/1.73 sq m ESTIMATED GFR IS NOT meab=3507) ACCURATE CREATININE CLEARANCE IN PREDICTING GLOMERULAR FILTRATION RATE. ESTIMATED GFR IS NOT APPLICABLE FOR DIALYSIS PATIENTS. LIPID [id number] 07:11:00 Test Item Value Reference Range Comments TRIGLYCERIDES (BEAKER) (test wkgf=502) 75 mg/dL CHOLESTEROL (BEAKER) (test fcnr=872) 173 mg/dL HDL CHOLESTEROL (BEAKER) (test eqqd=116) 33 mg/dL LDL CHOLESTEROL CALCULATED (BEAKER) (test 125 mg/dL swyg=406) Triglyceride Reference Range: Low Risk <150 Borderline 150- 199 High Risk 200-499 Very High Risk >=500Cholesterol Reference Range: Low Risk <200 Borderline 200-239 High Risk > 240HDL Cholesterol Reference Range: Low Risk >=60 High Risk <40LDL Cholesterol Reference Range: Optimal <100 Near Optimal 100-129 Borderline 130-159 High 160-189 Very High >=190TROPONIN [id number] 06:34:00 Test Item Value Reference Range Comments TROPONIN I (BEAKER) (test kzig=735) < ng/mL 0.00-0.03 Troponin I (TnI) levels [...] acidosis, acute neurological disease, and persistent tachyarrhythmia.TROPONIN [id number] 23:58:00 Test Item Value Reference Range Comments TROPONIN I (BEPETER) (test uypb=793) < ng/mL 0.00-0.03 Troponin I (TnI) levels [...]
--- OUTSIDE RECORDS SUMMARY | 2018-09-24 20:19 | XMS REPORT | Clinical Summary ---
:1985 Author Organization [facility] Address [address] [place] [address] Care Team Providers Name Role Phone Cathy [...] Not on file Results Not on fileafter 09/23/2017 Insurance Payer Benefit Plan / Group Subscriber ID Type Phone Address xxxxxxxxx Other Govt (, [place], [facility], etc.) Advance Directives For more information, please contact:[address] [phone] Code Status Date Activated Date Inactivated Comments Full Code 07/15/2017 10:38 PM 07/16/2017 5:00 PM This code status was determined by: Patient
[2018-09-25] MEDS ORDERED: HYDROCODONE/APAP 5/325 MG TAB ONE (00:28)
--- NOTE | 2018-09-25 01:26 | ER ---
Nurse's Notes [facility] Name: Natahsa Spann Age: 33 yrs Sex: Female : 1985 Arrival Date: 09/24/2018 Time: 20:18 Bed 20 Private MD: Diagnosis: Acquired absence of left leg below knee;Pain in left lower leg Presentation: 09/24 20:48 Presenting complaint: Patient states: that she is having pain, discoloration and there fc is now a knot on her left (BKA) stump. Started approx a few months ago. Transition of care: patient was not received from another setting of care. Onset of symptoms was June 2018. Risk Assessment: Do you want to hurt yourself or someone else? Patient reports no desire to harm self or others. Initial Sepsis Screen: Does the patient meet any 2 criteria? No. Patient's initial sepsis screen is negative. Does the patient have a suspected source of infection? No. Patient's initial sepsis screen is negative. Care prior to arrival: None. 20:48 Method Of Arrival: Ambulatory fc 20:48 Acuity: EMILY 4 fc Triage Assessment: 20:53 General: Appears uncomfortable, Behavior is calm, cooperative, appropriate for age. fc Pain: Complains of pain in left stump Pain currently is 6 out of 10 on a pain scale. Quality of pain is described as aching, throbbing, Pain began gradually, Is continuous, Aggravated by repositioning, weight bearing. EENT: No deficits noted. Neuro: Level of Consciousness is awake, alert, obeys commands, Oriented to person, place, time, situation, Appropriate for age. Cardiovascular: No deficits noted. Respiratory: No deficits noted. GI: No deficits noted. : No deficits noted. Derm: Skin is pink, warm \T\ dry. Reports knot to left leg stump. Musculoskeletal:. Musculoskeletal: Reports pain in left leg stump. 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 fc Historical: - Allergies: 20:51 Wellbutrin; fc 20:51 Levofloxacin; fc 20:51 bupropion HCl; fc - Home Meds: 20:51 aripiprazole 15 mg Oral tab 1 tab nightly [Active]; duloxetine 30 mg Oral cpDR 1 cap fc once daily [Active]; propranolol 20 mg Oral tab 1 tab 2 times per day [Active]; trazodone 150 mg Oral tab 1 tab night prn [Active]; hydroxyzine HCl 25 mg Oral tab 4 times per day [Active]; omeprazole 40 mg Oral cpDR 1 cap once daily [Active]; - PMHx: 20:51 Anxiety; Depression; Endometrosis; MRSA; Gastric Reflux; Ovarian cyst; osteomylitis; fc Bipolar disorder; - PSHx: 20:51 left BKA; fc - Immunization history:: Last tetanus immunization: up to date Flu vaccine is not up to date. - Social history:: Smoking status: Patient uses tobacco products, smokes one pack cigarettes per day. Patient uses street drugs, marijuana, Patient/guardian denies using alcohol. - Ebola Screening: : Patient negative for fever greater than or equal to 101.5 degrees Fahrenheit, and additional compatible Ebola Virus Disease symptoms Patient denies exposure to infectious person Patient denies travel to an Ebola-affected area in the 21 days before illness onset. Screenin:00 Abuse screen: Denies threats or abuse. Nutritional screening: No deficits noted. jb4 Tuberculosis screening: No symptoms or risk factors identified. Fall Risk None identified. Assessment: 23:00 General: Appears in no apparent distress. comfortable, Behavior is calm, cooperative, jb4 appropriate for age. Pain: Complains of pain in left knee Pain does not radiate. Pain currently is 8 out of 10 on a pain scale. Quality of pain is described as Pins and needles. Neuro: Level of Consciousness is awake, alert, obeys commands, Oriented to person, place, time, situation. Cardiovascular: Patient's skin is warm and dry. Respiratory: Airway is patent Respiratory effort is even, unlabored, Respiratory pattern is regular, symmetrical. GI: No signs and/or symptoms were reported involving the gastrointestinal system. : No signs and/or symptoms were reported regarding the genitourinary system. EENT: No signs and/or symptoms were reported regarding the EENT system. Derm: Skin is intact, Skin is pink, warm \T\ dry. Musculoskeletal: Amputation of left leg. Circulation, motion, and sensation intact. 09/25 00:00 Reassessment: Patient appears in no apparent distress at this time. Patient and/or jb4 family updated on plan of care and expected duration. Pain level reassessed. Patient is alert, oriented x 3, equal unlabored respirations, skin warm/dry/pink. 01:18 Reassessment: Patient appears in no apparent distress at this time. Patient and/or jb4 family updated on plan of care and expected duration. Pain level reassessed. Patient is alert, oriented x 3, equal unlabored respirations, skin warm/dry/pink. Pt reports wanting to leave and that she would follow up with her provider. Instructed to follow up with her provider as soon as possible if she decided to leave. Pt Left ED before ultrasound arrived to perform test. Vital Signs: 09/24 20:51 BP 150 / 80; Pulse 70; Resp 18; Temp 98.1(O); Pulse Ox 98% on R/A; Weight 90.72 kg (R); fc Height 5 ft. 8 in. (172.72 cm) (R); Pain 6/10; 23:00 BP 116 / 71; Pulse 66; Resp 16; Pulse Ox 96% on R/A; jb4 09/25 00:00 BP 106 / 61; Pulse 63; Resp 16; Pulse Ox 97% on R/A; jb4 01:00 BP 108 / 72; Pulse 64; Resp 16; Pulse Ox 97% on R/A; jb4 09/24 20:51 Body Mass Index 30.41 (90.72 kg, 172.72 cm) fc ED Course: 09/24 20:18 Patient arrived in ED. es 20:50 Triage completed. fc 20:51 Arm band placed on Patient placed in waiting room. fc 22:51 Jean Paul Solo MD is Attending Physician. gs 23:00 Patient has correct armband on for positive identification. Bed in low position. Call jb4 light in reach. Side rails up X 1. Pulse ox on. NIBP on. 23:06 Foster Rojas, RN is Primary Nurse. jb4 09/25 01:00 No provider procedures requiring assistance completed. Patient did not have IV access jb4 during this emergency room visit. 01:24 Nathaniel Strickland MD is Referral Physician. gs Administered Medications: 00:20 Drug: [place] 5 mg-325 mg 1 tabs Route: PO; jb4 :29 Follow up: Response: No adverse reaction jb4 Outcome: :25 Discharge ordered by . 01:28 Discharged to home ambulatory. jb4 :28 Condition: stable 01:28 Discharge instructions given to patient, Instructed on discharge instructions, follow up and referral plans. Demonstrated understanding of instructions, follow-up care. 01:29 Patient left the ED. jb4 Signatures: Kimberlyn Ervin Felicia RN RN Foster Rojas RN RN jb4 Jean Paul Solo MD MD
--- NOTE | 2018-09-25 01:26 | EDPHYS ---
Physician Documentation [facility] Name: Natasha Spann Age: 33 yrs Sex: Female : 1985 Arrival Date: 09/24/2018 Time: 20:18 Bed 20 Private MD: ED Physician Jean Paul Solo HPI: 09/25 01:21 This 33 yrs old Female presents to ER via Ambulatory with complaints of LEG gs PROBLEM. 01:21 The patient presents with pain, that is acute. The complaints affect the left knee. gs Context: pt has bka for 3-4 months stump has felt cool with some pain, has not seen medical personnel. comes tonite for eval. Associated signs and symptoms: Pertinent negatives numbness. Severity of symptoms: At their worst the symptoms were moderate, in the emergency department the symptoms are unchanged. 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/17/2018 fc Historical: - Allergies: 20:51 Wellbutrin; fc 20:51 Levofloxacin; fc 20:51 bupropion HCl; fc - Home Meds: 20:51 aripiprazole 15 mg Oral tab 1 tab nightly [Active]; duloxetine 30 mg Oral cpDR 1 cap fc once daily [Active]; propranolol 20 mg Oral tab 1 tab 2 times per day [Active]; trazodone 150 mg Oral tab 1 tab night prn [Active]; hydroxyzine HCl 25 mg Oral tab 4 times per day [Active]; omeprazole 40 mg Oral cpDR 1 cap once daily [Active]; - PMHx: 20:51 Anxiety; Depression; Endometrosis; MRSA; Gastric Reflux; Ovarian cyst; osteomylitis; fc Bipolar disorder; - PSHx: 20:51 left BKA; fc - Immunization history:: Last tetanus immunization: up to date Flu vaccine is not up to date. - Social history:: Smoking status: Patient uses tobacco products, smokes one pack cigarettes per day. Patient uses street drugs, marijuana, Patient/guardian denies using alcohol. - Ebola Screening: : Patient negative for fever greater than or equal to 101.5 degrees Fahrenheit, and additional compatible Ebola Virus Disease symptoms Patient denies exposure to infectious person Patient denies travel to an Ebola-affected area in the 21 days before illness onset. ROS: 09/25 01:21 All other systems are negative. gs Exam: 01:21 Head/Face: Normocephalic, atraumatic. ENT: Nares patent. No nasal discharge, no gs septal abnormalities noted. Tympanic membranes are normal and external auditory canals are clear. Oropharynx with no redness, swelling, or masses, exudates, or evidence of obstruction, uvula midline. Mucous membranes moist. Cardiovascular: Regular rate and rhythm with a normal S1 and S2. No gallops, murmurs, or rubs. Normal PMI, no JVD. No pulse deficits. Respiratory: Lungs have equal breath sounds bilaterally, clear to auscultation and percussion. No rales, rhonchi or wheezes noted. No increased work of breathing, no retractions or nasal flaring. Abdomen/GI: Soft, non-tender, with normal bowel sounds. No distension or tympany. No guarding or rebound. No evidence of tenderness throughout. Back: No spinal tenderness. No costovertebral tenderness. Full range of motion. Skin: Warm, dry with normal turgor. Normal color with no rashes, no lesions, and no evidence of cellulitis. Neuro: Awake and alert, GCS 15, oriented to person, place, time, and situation. Cranial nerves II-XII grossly intact. Motor strength 5/5 in all extremities. Sensory grossly intact. Cerebellar exam normal. Normal gait. 01:21 Constitutional: The patient appears alert, awake. 01:21 Musculoskeletal/extremity: ROM: intact in all extremities, Pulses: are normal with no appreciated deficits, Sensation intact. cap refill of stump around 2 seconds feels cool, not cold not threatened limb. Vital Signs: 09/24 20:51 BP 150 / 80; Pulse 70; Resp 18; Temp 98.1(O); Pulse Ox 98% on R/A; Weight 90.72 kg (R); fc Height 5 ft. 8 in. (172.72 cm) (R); Pain 6/10; 23:00 BP 116 / 71; Pulse 66; Resp 16; Pulse Ox 96% on R/A; jb4 09/25 00:00 BP 106 / 61; Pulse 63; Resp 16; Pulse Ox 97% on R/A; jb4 01:00 BP 108 / 72; Pulse 64; Resp 16; Pulse Ox 97% on R/A; jb4 09/24 20:51 Body Mass Index 30.41 (90.72 kg, 172.72 cm) MDM: 09/24 23:20 Patient medically screened. 09/25 01:21 Data reviewed: vital signs, nurses notes. ED course: want to get art doppler, pt gs decided she just wanted pain meds and will follow up. Administered Medications: 00:20 Drug: [place] 5 mg-325 mg 1 tabs Route: PO; jb4 01:29 Follow up: Response: No adverse reaction jb4 Disposition: 09/25/18 01:25 Discharged to Home. Impression: Acquired absence of left leg below knee, Pain in left lower leg. - Condition is Stable. - Discharge Instructions: Musculoskeletal Pain, Pain Without a Known Cause, Living With an Amputation, Adult. - Medication Reconciliation Form, Thank You Letter, Antibiotic Education, Prescription Opioid Use form. - Follow up: Nathaniel Strickland MD; When: 2 - 3 days; Reason: Re-evaluation by your physician. Signatures: Dispatcher [employer] EDMS Nneka Kauffman RN RN Foster Rojas RN RN jb4 Jean Paul Solo MD MD Corrections: (The following items were deleted from the chart) 01:25 01:25 09/25/2018 01:25 Discharged to Home. Impression: Acquired absence of left leg gs below knee. Condition is Stable. Forms are Medication Reconciliation Form, Thank You Letter, Antibiotic Education, Prescription Opioid Use. Follow up: Dr. Nathaniel Strickland; When: 2 - 3 days; Reason: Re-evaluation by your physician. 01:29 01:25 09/25/2018 01:25 Discharged to Home. Impression: Acquired absence of left leg jb4 below knee; Pain in left lower leg. Condition is Stable. Forms are Medication Reconciliation Form, Thank You Letter, Antibiotic Education, Prescription Opioid Use. Follow up: Dr. Nathaniel Strickland; When: 2 - 3 days; Reason: Re-evaluation by your physician.
[2018-09-25 02:30] VITALS: TEMP 98.1
[2018-09-25 02:33] VITALS: O2SAT 97
[2018-09-25 02:34] VITALS: BP 108/72
== END 2018-09-25 01:29 | disposition home or self-care (01) ==
LOC: ER 20:16
DX: M25.562 Pain in left knee (principal); Z89.512 Acquired absence of left leg below knee; F17.210 Nicotine dependence, cigarettes, uncomplicated; F41.9 Anxiety disorder, unspecified; F31.9 Bipolar disorder, unspecified; K21.9 Gastro-esophageal reflux disease without esophagitis; Z86.14 Personal history of Methicillin resistant Staphylococcus aureus infection; Z79.899 Other long term (current) drug therapy
CPT/HCPCS: 99283

== ENCOUNTER 2018-11-20 04:26 | Emergency (ER) | payer OTHER ==
--- OUTSIDE RECORDS SUMMARY | 2018-11-20 04:29 | XMS REPORT | Clinical Summary ---
:1985 Author Organization [facility] Address [address] [place] [address] Care Team Providers Name Role Phone Kit [...] INFLUENZA VACCINE 03/21/2018 Results Not on fileafter 11/19/2017 Insurance Payer Benefit Plan / Group Subscriber ID Type Phone Address FOR LIFE xxxxxxxxx Advance Directives Patient has advance care planning documents on file. For more information, please contact:[facility] [place] [address]
--- OUTSIDE RECORDS SUMMARY | 2018-11-20 04:29 | XMS REPORT ---
:1985 [facility] Address [address] [place] [address] Care Team Providers Name Role Phone JOYCE FOLEY Unavailable Unavailable Problems This patient has no known problems. Allergies, Adverse Reactions, Alerts This patient has no known allergies or adverse reactions. Medications This patient has no known medications. Encounters Start End Encounter Admission Attending Care Care Encounter Date/Time Date/Time Type Type Clinicians Facility Department ID 2017-04-09 2017-04-09 [facility] [id number] 00:00:00 00:00:00 2017-04-09 2017-04-09 [facility] [id number] 00:00:00 00:00:00 2017-04-08 2017-04-08 [facility] [id number] 22:35:00 22:35:00 2017-04-08 2017-04-08 [facility] [id number] 00:00:00 00:00:00 Results Test Description Test Time Test Comments Text Results Atomic Results Result Comments HEMOGLOBIN A1C 2017-07-16 13:26:00 Test Item Value Reference Range Comments HEMOGLOBIN A1C (BEAKER) (test lxoq=749) 5.2 % 4.3-6.1 CBC W/PLT COUNT & AUTO [id number] 09:42:00 Test Item Value Reference Range Comments WHITE BLOOD CELL COUNT (BEAKER) (test bkpf=279) 8.3 K/ L 3.5-10.5 RED BLOOD CELL COUNT (BEAKER) (test sbmo=230) 3.47 M/ L 3.93-5.22 HEMOGLOBIN (BEAKER) (test pcwy=676) 10.3 GM/DL 11.2-15.7 HEMATOCRIT (BEAKER) (test uglj=995) 32.8 % 34.1-44.9 MEAN CORPUSCULAR VOLUME (BEAKER) (test siio=156) 94.5 fL 79.4-94.8 MEAN CORPUSCULAR HEMOGLOBIN (BEAKER) (test 29.7 pg 25.6-32.2 apar=019) MEAN CORPUSCULAR HEMOGLOBIN CONC (BEAKER) (test 31.4 GM/DL 32.2-35.5 nojb=370) RED CELL DISTRIBUTION WIDTH (BEAKER) (test 13.1 % 11.7-14.4 hkkq=330) PLATELET COUNT (BEAKER) (test hjvc=676) 284 K/CU MM 150-450 MEAN PLATELET VOLUME (BEAKER) (test qlat=999) 9.7 fL 9.4-12.3 NUCLEATED RED BLOOD CELLS (BEAKER) (test 0 /100 WBC 0-0 kuin=447) IMMATURE GRANULOCYTES-RELATIVE PERCENT (BEAKER) 0 % 0-1 (test hvpe=5714) (MANUAL DIFFERENTIAL)2017-07-16 09:42:00 Test Item Value Reference Range Comments NEUTROPHILS - REL (DIFF) (BEAKER) (test plwr=7713) 36 % LYMPHOCYTES - REL (DIFF) (BEAKER) (test qqne=2815) 53 % MONOCYTES - REL (DIFF) (BEAKER) (test umyg=6625) 4 % EOSINOPHILS - REL (DIFF) (BEAKER) (test bsrc=9708) 2 % BASOPHILS - REL (DIFF) (BEAKER) (test wccn=3110) 2 % ATYPICAL LYMPHOCYTE - REL (DIFF) (BEAKER) (test 3 % 0-0 fsjs=635) NEUTROPHILS - ABS (DIFF) (BEAKER) (test qmvg=7076) 2.99 K/ L 1.80-8.00 LYMPHOCYTES - ABS (DIFF) (BEAKER) (test nxbx=4681) 4.40 K/ L 1.48-4.50 MONOCYTES - ABS (DIFF) (BEAKER) (test necu=0122) 0.33 K/ L 0.00-1.30 EOSINOPHILS - ABS (DIFF) (BEAKER) (test unex=2472) 0.17 K/ L 0.00-0.50 BASOPHILS - ABS (DIFF) (BEAKER) (test nves=2474) 0.17 K/ L 0.00-0.20 ATYPICAL LYMPHOCYTES - ABS (DIFF) (BEAKER) (test 0.25 K/ L 0.00-0.00 kpuv=566) TOTAL COUNTED (BEAKER) (test ulnz=6939) 100 WBC MORPHOLOGY (BEAKER) (test zoor=311) Normal PLT MORPHOLOGY (BEAKER) (test mcby=251) Normal RBC MORPHOLOGY (BEAKER) (test jabi=031) Normal [id number] 07:11:00 Test Item Value Reference Range Comments MAGNESIUM (BEAKER) (test bhkc=509) 1.5 mg/dL 1.6-2.6 BASIC METABOLIC [id number] 07:11:00 Test Item Value Reference Range Comments SODIUM (BEAKER) (test 140 meq/L 136-145 hwvj=137) POTASSIUM (BEAKER) (test 3.6 meq/L 3.5-5.1 emhv=984) CHLORIDE (BEAKER) (test 119 meq/L 98-107 xyfz=615) CO2 (BEAKER) (test 16 meq/L 22-29 anjk=238) BLOOD UREA NITROGEN 7 mg/dL 7-21 (BEAKER) (test vxnn=974) CREATININE (BEAKER) (test 0.59 mg/dL 0.57-1.25 xtsf=727) GLUCOSE RANDOM (BEAKER) 89 mg/dL 70-105 (test ansx=127) CALCIUM (BEAKER) (test 8.3 mg/dL 8.4-10.2 plqi=535) EGFR (BEAKER) (test 118 mL/min/1.73 sq m ESTIMATED GFR IS NOT dkyv=1088) ACCURATE CREATININE CLEARANCE IN PREDICTING GLOMERULAR FILTRATION RATE. ESTIMATED GFR IS NOT APPLICABLE FOR DIALYSIS PATIENTS. LIPID [id number] 07:11:00 Test Item Value Reference Range Comments TRIGLYCERIDES (BEAKER) (test irzn=771) 75 mg/dL CHOLESTEROL (BEAKER) (test ggss=892) 173 mg/dL HDL CHOLESTEROL (BEAKER) (test dwzt=288) 33 mg/dL LDL CHOLESTEROL CALCULATED (BEAKER) (test 125 mg/dL hean=034) Triglyceride Reference Range: Low Risk <150 Borderline 150- 199 High Risk 200-499 Very High Risk >=500Cholesterol Reference Range: Low Risk <200 Borderline 200-239 High Risk > 240HDL Cholesterol Reference Range: Low Risk >=60 High Risk <40LDL Cholesterol Reference Range: Optimal <100 Near Optimal 100-129 Borderline 130-159 High 160-189 Very High >=190TROPONIN [id number] 06:34:00 Test Item Value Reference Range Comments TROPONIN I (BEAKER) (test esyj=309) < ng/mL 0.00-0.03 Troponin I (TnI) levels [...] acidosis, acute neurological disease, and persistent tachyarrhythmia.TROPONIN [id number] 23:58:00 Test Item Value Reference Range Comments TROPONIN I (BEPETER) (test risy=111) < ng/mL 0.00-0.03 Troponin I (TnI) levels [...]
--- OUTSIDE RECORDS SUMMARY | 2018-11-20 04:29 | XMS REPORT | Clinical Summary ---
:1985 Author Organization [facility] Address [address] [place] [address] Care Team Providers Name Role Phone Cathy [...] Not on file Results Not on fileafter 11/19/2017 Insurance Payer Benefit Plan / Group Subscriber ID Type Phone Address xxxxxxxxx Other Govt (, [place], [facility], [place], etc.) Advance Directives For more information, please contact:[address] [phone] Code Status Date Activated Date Inactivated Comments Full Code 07/15/2017 10:38 PM 07/16/2017 5:00 PM This code status was determined by: Patient
--- NOTE | 2018-11-20 04:59 | ER ---
Nurse's Notes [facility] Name: Natasha Spann Age: 33 yrs Sex: Female : 1985 Arrival Date: 11/20/2018 Time: 04:29 Bed 20 Private MD: Diagnosis: Dental caries Presentation: 11/20 04:30 Presenting complaint: Patient states: My left upper back teeth have been hurting for jb4 the past 2 days. 04:30 Transition of care: patient was not received from another setting of care. Onset of jb4 symptoms was November 18, 2018. Risk Assessment: Do you want to hurt yourself or someone else? Patient reports no desire to harm self or others. Initial Sepsis Screen: Does the patient meet any 2 criteria? No. Patient's initial sepsis screen is negative. Does the patient have a suspected source of infection? No. Patient's initial sepsis screen is negative. Care prior to arrival: None. 04:30 Method Of Arrival: Ambulatory jb4 04:30 Acuity: EMILY 4 jb4 Triage Assessment: 04:30 General: Appears in no apparent distress. uncomfortable, Behavior is calm, cooperative, jb4 appropriate for age. Pain: Complains of pain in left upper jaw Pain radiates to left side of head Pain currently is 9 out of 10 on a pain scale. Quality of pain is described as shooting, throbbing, Pain began 2-3 days ago. EENT: Oral mucosa is moist. Poor dentition noted. Absence of teeth and dental caries noted.. Reports pain in mouth. Neuro: Level of Consciousness is awake, alert, obeys commands, Oriented to person, place, time, situation. Cardiovascular: Patient's skin is warm and dry. Respiratory: Airway is patent Respiratory effort is even, unlabored, Respiratory pattern is regular, symmetrical. GI: No signs and/or symptoms were reported involving the gastrointestinal system. : No signs and/or symptoms were reported regarding the genitourinary system. Derm: Skin is intact, Skin is pink, warm \T\ dry. 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 Circulation, motion, and sensation intact. 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/2018 jb4 Historical: - Allergies: 04:30 bupropion HCl; jb4 04:30 Levofloxacin; jb4 04:30 Wellbutrin; jb4 - Home Meds: 04:30 propranolol 20 mg Oral tab 1 tab 2 times per day [Active]; duloxetine 30 mg Oral cpDR 1 jb4 cap once daily [Active]; trazodone 150 mg Oral tab 1 tab night prn [Active]; aripiprazole 15 mg Oral tab 1 tab nightly [Active]; hydroxyzine HCl 25 mg Oral tab 4 times per day [Active]; - PMHx: 04:30 Anxiety; Bipolar disorder; Depression; Endometrosis; Gastric Reflux; MRSA; jb4 osteomylitis; Ovarian cyst; ADD/ADHD; - PSHx: 04:30 left leg BKA; jb4 - Immunization history:: Adult Immunizations up to date, Flu vaccine is not up to date. - Social history:: Smoking status: Patient uses tobacco products, smokes one pack cigarettes per day. Patient uses alcohol, but reports only rare drinking. - Ebola Screening: : No symptoms or risks identified at this time. Screenin:30 Abuse screen: Denies threats or abuse. Nutritional screening: No deficits noted. jb4 Tuberculosis screening: No symptoms or risk factors identified. Fall Risk None identified. Assessment: 04:30 General: see triage assessment. jb4 05:11 Reassessment: Patient appears in no apparent distress at this time. Patient and/or jb4 family updated on plan of care and expected duration. Pain level reassessed. Patient is alert, oriented x 3, equal unlabored respirations, skin warm/dry/pink. Vital Signs: 04:30 BP 134 / 90; Pulse 80; Resp 16; Temp 98.1(O); Pulse Ox 96% on R/A; Weight 90.72 kg (R); jb4 Height 5 ft. 8 in. (172.72 cm) (R); Pain 9/10; 04:30 Body Mass Index 30.41 (90.72 kg, 172.72 cm) jb4 ED Course: 04:29 Patient arrived in ED. es 04:30 Foster Rojas, RN is Primary Nurse. jb4 04:30 Arm band placed on right wrist. jb4 04:30 Patient has correct armband on for positive identification. Bed in low position. Call jb4 light in reach. Side rails up X 1. Pulse ox on. NIBP on. 04:42 Triage completed. jb4 04:47 Augustus, Wili, MD is Attending Physician. tw4 05:11 No provider procedures requiring assistance completed. Patient did not have IV access jb4 during this emergency room visit. Administered Medications: 05:04 Drug: TORadol 60 mg Route: IM; Site: right gluteus; jb4 05:10 Follow up: Response: No adverse reaction; Medication administered at discharge. jb4 Outcome: 04:59 Discharge ordered by . tw4 05:11 Discharged to home ambulatory. jb4 05:11 Condition: stable 05:11 Discharge instructions given to patient, Instructed on discharge instructions, follow up and referral plans. medication usage, Demonstrated understanding of instructions, follow-up care, medications, Prescriptions given X 2. 05:12 Patient left the ED. jb4 Signatures: Kimberlyn Ervin James RN RN jb4 Wili Coffman MD MD tw4 Corrections: (The following items were deleted from the chart) 05:11 04:30 Reassessment: Patient appears in no apparent distress at this time. Patient jb4 and/or family updated on plan of care and expected duration. Pain level reassessed. Patient is alert, oriented x 3, equal unlabored respirations, skin warm/dry/pink. jb4
--- NOTE | 2018-11-20 05:00 | EDPHYS ---
Physician Documentation [facility] Name: Natasha Spann Age: 33 yrs Sex: Female : 1985 Arrival Date: 11/20/2018 Time: 04:29 Bed 20 Private MD: ED Physician Wili Coffman HPI: 11/20 04:57 This 33 yrs old Female presents to ER via Ambulatory with complaints of tw4 Toothache. 04:57 The patient presents with broken tooth/teeth, lost tooth/teeth. The problem is located tw4 in the upper left second bicuspid and upper left first molar. Onset: The symptoms/episode began/occurred 2 day(s) ago. Duration: The symptoms are continuous, and are unchanged since they started. Modifying factors: The symptoms are alleviated by nothing. Associated signs and symptoms: The patient has no apparent associated signs or symptoms. Severity of symptoms: At their worst the symptoms were moderate, in the emergency department the symptoms are unchanged. The patient has not experienced similar symptoms in the past. 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/2018 jb4 Historical: - Allergies: 04:30 bupropion HCl; jb4 04:30 Levofloxacin; jb4 04:30 Wellbutrin; jb4 - Home Meds: 04:30 propranolol 20 mg Oral tab 1 tab 2 times per day [Active]; duloxetine 30 mg Oral cpDR 1 jb4 cap once daily [Active]; trazodone 150 mg Oral tab 1 tab night prn [Active]; aripiprazole 15 mg Oral tab 1 tab nightly [Active]; hydroxyzine HCl 25 mg Oral tab 4 times per day [Active]; - PMHx: 04:30 Anxiety; Bipolar disorder; Depression; Endometrosis; Gastric Reflux; MRSA; jb4 osteomylitis; Ovarian cyst; ADD/ADHD; - PSHx: 04:30 left leg BKA; jb4 - Immunization history:: Adult Immunizations up to date, Flu vaccine is not up to date. - Social history:: Smoking status: Patient uses tobacco products, smokes one pack cigarettes per day. Patient uses alcohol, but reports only rare drinking. - Ebola Screening: : No symptoms or risks identified at this time. ROS: 04:57 Constitutional: Negative for fever, chills, and weight loss, Eyes: Negative for injury, tw4 pain, redness, and discharge, Cardiovascular: Negative for chest pain, palpitations, and edema, Respiratory: Negative for shortness of breath, cough, wheezing, and pleuritic chest pain, Abdomen/GI: Negative for abdominal pain, nausea, vomiting, diarrhea, and constipation, Back: Negative for injury and pain, MS/Extremity: Negative for injury and deformity. Exam: 04:57 Constitutional: This is a well developed, well nourished patient who is awake, alert, tw4 and in no acute distress. Head/Face: Normocephalic, atraumatic. Chest/axilla: Normal chest wall appearance and motion. Nontender with no deformity. No lesions are appreciated. Cardiovascular: Regular rate and rhythm with a normal S1 and S2. No gallops, murmurs, or rubs. Normal PMI, no JVD. No pulse deficits. Respiratory: Lungs have equal breath sounds bilaterally, clear to auscultation and percussion. No rales, rhonchi or wheezes noted. No increased work of breathing, no retractions or nasal flaring. Abdomen/GI: Soft, non-tender, with normal bowel sounds. No distension or tympany. No guarding or rebound. No evidence of tenderness throughout. Back: No spinal tenderness. No costovertebral tenderness. Full range of motion. MS/ Extremity: Pulses equal, no cyanosis. Neurovascular intact. Full, normal range of motion. Neuro: Awake and alert, GCS 15, oriented to person, place, time, and situation. Cranial nerves II-XII grossly intact. Motor strength 5/5 in all extremities. Sensory grossly intact. Cerebellar exam normal. Normal gait. Vital Signs: 04:30 BP 134 / 90; Pulse 80; Resp 16; Temp 98.1(O); Pulse Ox 96% on R/A; Weight 90.72 kg (R); jb4 Height 5 ft. 8 in. (172.72 cm) (R); Pain 9/10; 04:30 Body Mass Index 30.41 (90.72 kg, 172.72 cm) jb4 MDM: 04:47 Patient medically screened. tw4 04:57 Data reviewed: vital signs, nurses notes. Counseling: I had a detailed discussion with [facility] the patient and/or guardian regarding: the historical points, exam findings, and any diagnostic results supporting the discharge/admit diagnosis. Medical screen evaluation completed. EMTALA emergency medical condition absent. Medication response: Toradol relieved patient's pain. The symptoms have resolved. Response to treatment: and as a result, I will discharge patient. Special discussion: I discussed with the patient/guardian in detail that at this point there is no indication for admission to the hospital. It is understood, however, that if the symptoms persist or worsen the patient needs to return immediately for re-evaluation. Administered Medications: 05:04 Drug: TORadol 60 mg Route: IM; Site: right gluteus; jb4 05:10 Follow up: Response: No adverse reaction; Medication administered at discharge. jb4 Disposition: 11/20/18 04:59 Discharged to Home. Impression: Dental caries. - Condition is Stable. - Prescriptions for Ibuprofen 800 mg Oral Tablet - take 1 tablet by ORAL route every 8 hours As needed take with food; 30 tablet. Tylenol- Codeine #3 300-30 mg Oral Tablet - take 2 tablet by ORAL route every 6 hours As needed; 6 tablet. - Medication Reconciliation Form, Thank You Letter, Antibiotic Education, Prescription Opioid Use form. - Follow up: Private Physician; When: Upon discharge from the Emergency Department; Reason: If symptoms return, Recheck today's complaints, Continuance of care. - Problem is new. - Symptoms have improved. Signatures: Foster Rojas RN RN jb4 Wili Coffman MD MD tw4 Corrections: (The following items were deleted from the chart) 05:12 04:59 11/20/2018 04:59 Discharged to Home. Impression: Dental caries. Condition is jb4 Stable. Forms are Medication Reconciliation Form, Thank You Letter, Antibiotic Education, Prescription Opioid Use. Follow up: Private Physician; When: Upon discharge from the Emergency Department; Reason: If symptoms return, Recheck today's complaints, Continuance of care. Problem is new. Symptoms have improved. tw4
[2018-11-20] MEDS ORDERED: KETOROLAC 30 MG/ML INJ ONE (05:08)
[2018-11-20 06:57] VITALS: BP 134/90; TEMP 98.1; O2SAT 96
== END 2018-11-20 05:12 | disposition home or self-care (01) ==
LOC: ER 04:26
DX: K02.9 Dental caries, unspecified (principal); F41.9 Anxiety disorder, unspecified; F31.9 Bipolar disorder, unspecified; F32.9 Major depressive disorder, single episode, unspecified; F90.9 Attention-deficit hyperactivity disorder, unspecified type; F17.210 Nicotine dependence, cigarettes, uncomplicated; Z88.3 Allergy status to other anti-infective agents; Z88.8 Allergy status to other drugs, medicaments and biological substances
CPT/HCPCS: 96372; 99283

== ENCOUNTER 2018-11-22 02:00 | Emergency (ER) | payer OTHER ==
--- OUTSIDE RECORDS SUMMARY | 2018-11-22 02:02 | XMS REPORT | Clinical Summary ---
:1985 Author Organization [facility] Address [address] [place] [address] Care Team Providers Name Role Phone Kit [...] Comments CERVICAL CANCER SCREENING 2006 INFLUENZA VACCINE 03/21/2019 Results Not on fileafter 11/21/2017 Insurance Payer Benefit Plan / Group Subscriber ID Type Phone Address FOR LIFE xxxxxxxxx Advance Directives Patient has advance care planning documents on file. For more information, please contact:[facility] [place] [address]
--- OUTSIDE RECORDS SUMMARY | 2018-11-22 02:03 | XMS REPORT ---
:1985 [facility] Address [address] [place] [id number] Care Team Providers Name Role Phone JOYCE FOLEY Unavailable Unavailable Problems This patient has no known problems. Allergies, Adverse Reactions, Alerts This patient has no known allergies or adverse reactions. Medications This patient has no known medications. Encounters Start End Encounter Admission Attending Care Care Encounter Date/Time Date/Time Type Type Clinicians Facility Department ID 2017-04-09 2017-04-09 [facility] [id number] 00:00:00 00:00:00 2017-04-09 2017-04-09 [facility] [id number] 00:00:00 00:00:00 2017-04-08 2017-04-08 [facility] [id number] 22:35:00 22:35:00 2017-04-08 2017-04-08 [facility] [id number] 00:00:00 00:00:00 Results Test Description Test Time Test Comments Text Results Atomic Results Result Comments HEMOGLOBIN A1C 2017-07-16 13:26:00 Test Item Value Reference Range Comments HEMOGLOBIN A1C (BEAKER) (test wxbt=437) 5.2 % 4.3-6.1 CBC W/PLT COUNT & AUTO [id number] 09:42:00 Test Item Value Reference Range Comments WHITE BLOOD CELL COUNT (BEAKER) (test nilu=433) 8.3 K/ L 3.5-10.5 RED BLOOD CELL COUNT (BEAKER) (test hpfs=480) 3.47 M/ L 3.93-5.22 HEMOGLOBIN (BEAKER) (test dpqy=266) 10.3 GM/DL 11.2-15.7 HEMATOCRIT (BEAKER) (test crgi=810) 32.8 % 34.1-44.9 MEAN CORPUSCULAR VOLUME (BEAKER) (test xeld=756) 94.5 fL 79.4-94.8 MEAN CORPUSCULAR HEMOGLOBIN (BEAKER) (test 29.7 pg 25.6-32.2 ewdq=720) MEAN CORPUSCULAR HEMOGLOBIN CONC (BEAKER) (test 31.4 GM/DL 32.2-35.5 hlzv=726) RED CELL DISTRIBUTION WIDTH (BEAKER) (test 13.1 % 11.7-14.4 qoyi=456) PLATELET COUNT (BEAKER) (test wpec=101) 284 K/CU MM 150-450 MEAN PLATELET VOLUME (BEAKER) (test ramo=584) 9.7 fL 9.4-12.3 NUCLEATED RED BLOOD CELLS (BEAKER) (test 0 /100 WBC 0-0 vngk=255) IMMATURE GRANULOCYTES-RELATIVE PERCENT (BEAKER) 0 % 0-1 (test zjdd=6813) (MANUAL DIFFERENTIAL)2017-07-16 09:42:00 Test Item Value Reference Range Comments NEUTROPHILS - REL (DIFF) (BEAKER) (test lpfv=9170) 36 % LYMPHOCYTES - REL (DIFF) (BEAKER) (test xbxj=8414) 53 % MONOCYTES - REL (DIFF) (BEAKER) (test tkjc=6226) 4 % EOSINOPHILS - REL (DIFF) (BEAKER) (test uvjw=4275) 2 % BASOPHILS - REL (DIFF) (BEAKER) (test mvun=7889) 2 % ATYPICAL LYMPHOCYTE - REL (DIFF) (BEAKER) (test 3 % 0-0 rjms=197) NEUTROPHILS - ABS (DIFF) (BEAKER) (test vxbb=2165) 2.99 K/ L 1.80-8.00 LYMPHOCYTES - ABS (DIFF) (BEAKER) (test jmwd=3122) 4.40 K/ L 1.48-4.50 MONOCYTES - ABS (DIFF) (BEAKER) (test bihi=9780) 0.33 K/ L 0.00-1.30 EOSINOPHILS - ABS (DIFF) (BEAKER) (test rdih=1662) 0.17 K/ L 0.00-0.50 BASOPHILS - ABS (DIFF) (BEAKER) (test xypn=7946) 0.17 K/ L 0.00-0.20 ATYPICAL LYMPHOCYTES - ABS (DIFF) (BEAKER) (test 0.25 K/ L 0.00-0.00 xzpd=391) TOTAL COUNTED (BEAKER) (test porq=3201) 100 WBC MORPHOLOGY (BEAKER) (test cqoh=126) Normal PLT MORPHOLOGY (BEAKER) (test tslk=599) Normal RBC MORPHOLOGY (BEAKER) (test sxqu=913) Normal [id number] 07:11:00 Test Item Value Reference Range Comments MAGNESIUM (BEAKER) (test otdo=765) 1.5 mg/dL 1.6-2.6 BASIC METABOLIC [id number] 07:11:00 Test Item Value Reference Range Comments SODIUM (BEAKER) (test 140 meq/L 136-145 jqac=142) POTASSIUM (BEAKER) (test 3.6 meq/L 3.5-5.1 qopb=408) CHLORIDE (BEAKER) (test 119 meq/L 98-107 mxbn=956) CO2 (BEAKER) (test 16 meq/L 22-29 hzxm=992) BLOOD UREA NITROGEN 7 mg/dL 7-21 (BEAKER) (test dntj=632) CREATININE (BEAKER) (test 0.59 mg/dL 0.57-1.25 nayq=847) GLUCOSE RANDOM (BEAKER) 89 mg/dL 70-105 (test laak=737) CALCIUM (BEAKER) (test 8.3 mg/dL 8.4-10.2 utuy=812) EGFR (BEAKER) (test 118 mL/min/1.73 sq m ESTIMATED GFR IS NOT gtwg=0031) ACCURATE CREATININE CLEARANCE IN PREDICTING GLOMERULAR FILTRATION RATE. ESTIMATED GFR IS NOT APPLICABLE FOR DIALYSIS PATIENTS. LIPID [id number] 07:11:00 Test Item Value Reference Range Comments TRIGLYCERIDES (BEAKER) (test dpap=242) 75 mg/dL CHOLESTEROL (BEAKER) (test zdor=158) 173 mg/dL HDL CHOLESTEROL (BEAKER) (test jlae=748) 33 mg/dL LDL CHOLESTEROL CALCULATED (BEAKER) (test 125 mg/dL dlsz=774) Triglyceride Reference Range: Low Risk <150 Borderline 150- 199 High Risk 200-499 Very High Risk >=500Cholesterol Reference Range: Low Risk <200 Borderline 200-239 High Risk > 240HDL Cholesterol Reference Range: Low Risk >=60 High Risk <40LDL Cholesterol Reference Range: Optimal <100 Near Optimal 100-129 Borderline 130-159 High 160-189 Very High >=190TROPONIN [id number] 06:34:00 Test Item Value Reference Range Comments TROPONIN I (BEAKER) (test rkqm=520) < ng/mL 0.00-0.03 Troponin I (TnI) levels [...] acidosis, acute neurological disease, and persistent tachyarrhythmia.TROPONIN [id number] 23:58:00 Test Item Value Reference Range Comments TROPONIN I (BEPETER) (test hzyr=293) < ng/mL 0.00-0.03 Troponin I (TnI) levels [...]
--- OUTSIDE RECORDS SUMMARY | 2018-11-22 02:03 | XMS REPORT | Clinical Summary ---
:1985 Author Organization [facility] Address [address] [place] [address] Care Team Providers Name Role Phone Cathy [...] Not on file Results Not on fileafter 11/21/2017 Insurance Payer Benefit Plan / Group Subscriber ID Type Phone Address xxxxxxxxx Other Govt (, [place], [facility], etc.) Advance Directives For more information, please contact:[address] [phone] Code Status Date Activated Date Inactivated Comments Full Code 07/15/2017 10:38 PM 07/16/2017 5:00 PM This code status was determined by: Patient
[2018-11-22 03:34] LABS: Absolute Lymphocytes (CBC) 3.3 K/uL (0.7-4.9); Absolute Monocytes 0.8 K/uL (0.1-1.3); Absolute Neutrophil 6.9 K/uL (1.8-8.0); Basophils % 0.6 % (0-1.3); Eosinophils % 1.7 % (0-4.4); Hematocrit 38.6 % (36.0-45.0); Lymphocytes % 29.1 % (15.3-44.8); MPV 7.7 fL (7.6-11.3); Monocytes % 7.2 % (3.3-12.3); RBC Red Blood Cell Count 4.32 M/uL (3.86-4.86)
[2018-11-22 03:37] LABS: Protime INR 0.92
[2018-11-22 03:53] LABS: ALT/SGPT 16 U/L (12-78); AST/SGOT 9 U/L (15-37); Albumin 3.4 g/dL (3.4-5.0); Alkaline Phosphatase 82 U/L (45-117); BUN Blood Urea Nitrogen 9 mg/dL (7-18); Bicarbonate 25 mmol/L (21-32); Bilirubin Direct < 0.1 mg/dL (0-0.2); Bilirubin Total 0.2 mg/dL (0.2-1.0); Glucose Level 95 mg/dL (74-106); Lipase 144 U/L (73-393); Magnesium 1.9 mg/dL (1.8-2.4); Protein, Total 7.4 g/dL (6.4-8.2); Sodium Level 138 mmol/L (136-145); Troponin (Emerg Dept Use Only) < 0.02 ng/mL (0.0-0.045)
[2018-11-22] MEDS ORDERED: NA CHLORIDE 0.9% 1,000 ML ONE (04:07)
--- NOTE | 2018-11-22 06:40 | ER ---
Nurse's Notes [facility] Name: Natasha Spann Age: 33 yrs Sex: Female : 1985 Arrival Date: 11/22/2018 Time: 02:01 Bed 5 Private MD: Diagnosis: Chest Pain Presentation: 11/22 02:04 Presenting complaint: Patient states: "I am having chest pain off and on for 2 hours.". jd3 Transition of care: patient was not received from another setting of care. Onset of symptoms was November 22, 2018. Risk Assessment: Do you want to hurt yourself or someone else? Patient reports no desire to harm self or others. Initial Sepsis Screen: Does the patient meet any 2 criteria? No. Patient's initial sepsis screen is negative. Does the patient have a suspected source of infection? No. Patient's initial sepsis screen is negative. Care prior to arrival: None. 02:04 Method Of Arrival: Ambulatory jd3 02:04 Acuity: EMILY 3 jd3 Triage Assessment: 03:20 General: Appears in no apparent distress. uncomfortable, Behavior is calm, cooperative, tl2 appropriate for age. Pain: Complains of pain in chest. Neuro: Level of Consciousness is. Cardiovascular: Rhythm is sinus rhythm Chest pain. Respiratory: Airway is patent Respiratory effort is even, unlabored, Respiratory pattern is regular, symmetrical. GI: No signs and/or symptoms were reported involving the gastrointestinal system. : No signs and/or symptoms were reported regarding the genitourinary system. Derm: Skin is pink, warm \\T\\ dry. 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 jd3 Historical: - Allergies: 02:06 bupropion HCl; jd3 02:06 Levofloxacin; jd3 02:06 Wellbutrin; jd3 - Home Meds: 02:06 trazodone 150 mg Oral tab 1 tab night prn [Active]; propranolol 20 mg Oral tab 1 tab 2 jd3 times per day [Active]; omeprazole 40 mg Oral cpDR 1 cap once daily [Active]; hydroxyzine HCl 25 mg Oral tab 4 times per day [Active]; duloxetine 30 mg Oral cpDR 1 cap once daily [Active]; aripiprazole 15 mg Oral tab 1 tab nightly [Active]; - PMHx: 02:06 Anxiety; Bipolar disorder; Depression; Endometrosis; Gastric Reflux; MRSA; jd3 osteomylitis; Ovarian cyst; - PSHx: 02:06 left leg BKA; jd3 - Immunization history:: Adult Immunizations up to date. - Social history:: Smoking status: Patient uses tobacco products, smokes one pack cigarettes per day. - Ebola Screening: : Patient negative for fever greater than or equal to 101.5 degrees Fahrenheit, and additional compatible Ebola Virus Disease symptoms. - Family history:: not pertinent. - Hospitalizations: : No recent hospitalization is reported. Screenin:52 Abuse screen: Denies threats or abuse. Nutritional screening: No deficits noted. tl2 Tuberculosis screening: No symptoms or risk factors identified. Fall Risk Secondary diagnosis (15 points) impaired mobility. Assessment: 03:20 General: see triage assessment. tl2 05:00 Reassessment: Patient appears in no apparent distress at this time. Patient and/or tl2 family updated on plan of care and expected duration. Pain level reassessed. Patient is alert, oriented x 3, equal unlabored respirations, skin warm/dry/pink. 06:20 Reassessment: Patient appears in no apparent distress at this time. Patient and/or tl2 family updated on plan of care and expected duration. Pain level reassessed. Patient is alert, oriented x 3, equal unlabored respirations, skin warm/dry/pink. Patient states feeling better. 06:54 Reassessment: Patient appears in no apparent distress at this time. Patient and/or tl2 family updated on plan of care and expected duration. Pain level reassessed. Patient is alert, oriented x 3, equal unlabored respirations, skin warm/dry/pink. pt verbalized understanding of discharge instructions, need for follow up and prescription usage. Vital Signs: 02:06 BP 128 / 89; Pulse 79; Resp 18 S; Temp 98.1(TE); Pulse Ox 98% on R/A; Weight 90.72 kg jd3 (R); Height 5 ft. 8 in. (172.72 cm) (R); Pain 6/10; 02:37 BP 123 / 76; Pulse 73; Resp 16; Pulse Ox 97% on R/A; mt 04:49 BP 120 / 71; Pulse 90; Resp 16; Pulse Ox 99% on R/A; mt 06:20 BP 121 / 87; Pulse 88; Resp 18; Pulse Ox 98% on R/A; tl2 02:06 Body Mass Index 30.41 (90.72 kg, 172.72 cm) jd3 ED Course: 02:01 Patient arrived in ED. am2 02:04 Triage completed. jd3 02:07 Arm band placed on. jd3 02:59 Reed Valentino MD is Attending Physician. wa 03:11 X-ray completed. Portable x-ray completed in exam room. Patient tolerated procedure kw well. 03:12 Chest Single View XRAY In Process Unspecified. EDMS 03:20 Leilani Roman, RN is Primary Nurse. tl2 03:28 Initial lab(s) drawn, by me, sent to lab. Missed attempt(s): 22 gauge in right mt antecubital area. 03:52 Patient has correct armband on for positive identification. Placed in gown. Bed in low tl2 position. Call light in reach. Side rails up X 1. Pulse ox on. NIBP on. 03:52 Inserted saline lock: 22 gauge in right upper arm, using aseptic technique. Blood tl2 collected. Patient maintains SpO2 saturation greater than 95% on room air. 04:58 CT completed. Patient tolerated procedure well. Patient moved to CT via wheelchair. Patient moved back from CT. 05:01 CT Chest For PE Angio In Process Unspecified. EDMS 06:39 Ha Krishnamurthy MD is Referral Physician. wa 06:54 No provider procedures requiring assistance completed. IV discontinued, intact, tl2 bleeding controlled, No redness/swelling at site. Pressure dressing applied. Administered Medications: 03:59 Drug: NS 0.9% 1000 ml Route: IV; Rate: 1 bolus; Site: right upper arm; tl2 06:58 Follow up: IV Status: Completed infusion; IV Intake: 600ml tl2 06:47 Drug: TORadol 30 mg Route: IVP; Site: right upper arm; tl2 06:58 Follow up: Response: No adverse reaction; Pain is decreased tl2 06:49 Drug: Tylenol 1000 mg Route: PO; tl2 06:59 Follow up: Response: No adverse reaction tl2 Intake: 06:58 IV: 600ml; Total: 600ml. tl2 Outcome: 06:40 Discharge ordered by . wa 06:54 Discharged to home ambulatory. tl2 06:54 Condition: stable 06:54 Discharge instructions given to patient, Instructed on discharge instructions, follow up and referral plans. medication usage, Demonstrated understanding of instructions, follow-up care, medications, Prescriptions given X 1. 06:59 Patient left the ED. tl2 Signatures: Dispatcher [employer] EDMS Elan Clark Kimberlee kw Knox, Taylor, JONY RN tl2 Angle Gonzáles Moriah mt Appiah, William, MD MD wa Davies, Jonathon, RN RN jd3
[2018-11-22] MEDS ORDERED: ACETAMINOPHEN 500 MG TAB ONE (06:41)
[2018-11-22] MEDS ORDERED: KETOROLAC 30 MG/ML INJ ONE (06:41)
--- NOTE | 2018-11-22 06:41 | EDPHYS ---
Physician Documentation [facility] Name: Natasha Spann Age: 33 yrs Sex: Female : 1985 Arrival Date: 11/22/2018 Time: 02:01 Bed 5 Private MD: ED Physician Reed Valentino HPI: 11/22 06:11 This 33 yrs old Female presents to ER via Ambulatory with complaints of Chest wa Pain. 06:11 The patient or guardian reports chest pain that is located primarily in the mid-sternal wa area. The pain does not radiate. 06:11 Associated signs and symptoms: Pertinent negatives: None. The chest pain is described wa as squeezing. Duration: The patient or guardian reports a single episode, that is still ongoing. Modifying factors: The symptoms are alleviated by nothing. the symptoms are aggravated by nothing. Severity of pain: At its worst the pain was moderate in the emergency department the pain is unchanged. The patient has not experienced similar symptoms in the past. The patient has not recently seen a physician. 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 jd3 Historical: - Allergies: 02:06 bupropion HCl; jd3 02:06 Levofloxacin; jd3 02:06 Wellbutrin; jd3 - Home Meds: 02:06 trazodone 150 mg Oral tab 1 tab night prn [Active]; propranolol 20 mg Oral tab 1 tab 2 jd3 times per day [Active]; omeprazole 40 mg Oral cpDR 1 cap once daily [Active]; hydroxyzine HCl 25 mg Oral tab 4 times per day [Active]; duloxetine 30 mg Oral cpDR 1 cap once daily [Active]; aripiprazole 15 mg Oral tab 1 tab nightly [Active]; - PMHx: 02:06 Anxiety; Bipolar disorder; Depression; Endometrosis; Gastric Reflux; MRSA; jd3 osteomylitis; Ovarian cyst; - PSHx: 02:06 left leg BKA; jd3 - Immunization history:: Adult Immunizations up to date. - Social history:: Smoking status: Patient uses tobacco products, smokes one pack cigarettes per day. - Ebola Screening: : Patient negative for fever greater than or equal to 101.5 degrees Fahrenheit, and additional compatible Ebola Virus Disease symptoms. - Family history:: not pertinent. - Hospitalizations: : No recent hospitalization is reported. ROS: 06:12 Constitutional: Negative for fever, chills, and weight loss, Eyes: Negative for injury, wa pain, redness, and discharge, ENT: Negative for injury, pain, and discharge, Neck: Negative for injury, pain, and swelling, Respiratory: Negative for shortness of breath, cough, wheezing, and pleuritic chest pain, Abdomen/GI: Negative for abdominal pain, nausea, vomiting, diarrhea, and constipation, Back: Negative for injury and pain, : Negative for injury, bleeding, discharge, and swelling, MS/Extremity: Negative for injury and deformity, Skin: Negative for injury, rash, and discoloration, Neuro: Negative for headache, weakness, numbness, tingling, and seizure, Psych: Negative for depression, anxiety, suicide ideation, homicidal ideation, and hallucinations. 06:12 Cardiovascular: Positive for chest pain, Negative for edema, orthopnea, palpitations, paroxysmal nocturnal dyspnea. 06:12 All other systems are negative. Exam: 06:13 Constitutional: This is a well developed, well nourished patient who is awake, alert, wa and in no acute distress. Head/Face: Normocephalic, atraumatic. Eyes: Pupils equal round and reactive to light, extra-ocular motions intact. Lids and lashes normal. Conjunctiva and sclera are non-icteric and not injected. Cornea within normal limits. Periorbital areas with no swelling, redness, or edema. ENT: Nares patent. No nasal discharge, no septal abnormalities noted. Tympanic membranes are normal and external auditory canals are clear. Oropharynx with no redness, swelling, or masses, exudates, or evidence of obstruction, uvula midline. Mucous membranes moist. Neck: Trachea midline, no thyromegaly or masses palpated, and no cervical lymphadenopathy. Supple, full range of motion without nuchal rigidity, or vertebral point tenderness. No Meningismus. Cardiovascular: Regular rate and rhythm with a normal S1 and S2. No gallops, murmurs, or rubs. Normal PMI, no JVD. No pulse deficits. Respiratory: Lungs have equal breath sounds bilaterally, clear to auscultation and percussion. No rales, rhonchi or wheezes noted. No increased work of breathing, no retractions or nasal flaring. Abdomen/GI: Soft, non-tender, with normal bowel sounds. No distension or tympany. No guarding or rebound. No evidence of tenderness throughout. Back: No spinal tenderness. No costovertebral tenderness. Full range of motion. Skin: Warm, dry with normal turgor. Normal color with no rashes, no lesions, and no evidence of cellulitis. MS/ Extremity: Pulses equal, no cyanosis. Neurovascular intact. Full, normal range of motion. Neuro: Awake and alert, GCS 15, oriented to person, place, time, and situation. Cranial nerves II-XII grossly intact. Motor strength 5/5 in all extremities. Sensory grossly intact. Cerebellar exam normal. Normal gait. Psych: Awake, alert, with orientation to person, place and time. Behavior, mood, and affect are within normal limits. 06:13 Chest/axilla: Inspection: normal, Palpation: tenderness, that is mild, of the mid-sternal area. Vital Signs: 02:06 BP 128 / 89; Pulse 79; Resp 18 S; Temp 98.1(TE); Pulse Ox 98% on R/A; Weight 90.72 kg jd3 (R); Height 5 ft. 8 in. (172.72 cm) (R); Pain 6/10; 02:37 BP 123 / 76; Pulse 73; Resp 16; Pulse Ox 97% on R/A; mt 04:49 BP 120 / 71; Pulse 90; Resp 16; Pulse Ox 99% on R/A; mt 06:20 BP 121 / 87; Pulse 88; Resp 18; Pulse Ox 98% on R/A; tl2 02:06 Body Mass Index 30.41 (90.72 kg, 172.72 cm) jd3 MDM: 02:59 Patient medically screened. de 06:13 Differential diagnosis: acute myocardial infarction, acute pericarditis, anxiety, wa coronary artery disease chest wall pain, pericarditis, pleurisy, pneumonia, pneumothorax, pulmonary embolus, unstable angina. 06:14 Data reviewed: vital signs, nurses notes, lab test result(s), EKG, radiologic studies. de Test interpretation: by ED physician or midlevel provider: EKG: interp by me: HR 67. nml axis. sinus. nml QRS. no obvious ischemic changes. 11/22 03:16 Order name: Basic Metabolic Panel; Complete Time: 04:36 de 11/22 03:16 Order name: CBC with Diff; Complete Time: 04:36 de 11/22 03:16 Order name: LFT's; Complete Time: 04:36 de 11/22 03:16 Order name: Magnesium; Complete Time: 04:36 de 11/22 03:16 Order name: PT-INR; Complete Time: 04:36 de 11/22 03:16 Order name: Troponin (emerg Dept Use Only); Complete Time: 04:36 de 11/22 03:08 Order name: Chest Single View XRAY 11/22 03:18 Order name: Lipase; Complete Time: 04:36 de 11/22 03:18 Order name: CT Chest For PE Angio de 11/22 06:35 Order name: Urine Dipstick--Ancillary (enter results) 11/22 06:35 Order name: Urine --Ancillary (enter results) 11/22 03:08 Order name: EKG; Complete Time: 03:08 11/22 03:08 Order name: EKG - Nurse/Tech; Complete Time: 03:08 11/22 03:16 Order name: Cardiac monitoring; Complete Time: 03:29 de 11/22 03:16 Order name: IV Saline Lock; Complete Time: 03:29 de 11/22 03:16 Order name: Labs collected and sent; Complete Time: 03:29 de 11/22 03:16 Order name: O2 Per Protocol; Complete Time: 03:20 de 11/22 03:16 Order name: O2 Sat Monitoring; Complete Time: 03:20 de 11/22 03:33 Order name: Urine Dipstick-Ancillary (obtain specimen); Complete Time: 06:47 de Administered Medications: 03:59 Drug: NS 0.9% 1000 ml Route: IV; Rate: 1 bolus; Site: right upper arm; tl2 06:58 Follow up: IV Status: Completed infusion; IV Intake: 600ml tl2 06:47 Drug: TORadol 30 mg Route: IVP; Site: right upper arm; tl2 06:58 Follow up: Response: No adverse reaction; Pain is decreased tl2 06:49 Drug: Tylenol 1000 mg Route: PO; tl2 06:59 Follow up: Response: No adverse reaction tl2 Disposition: 11/22/18 06:40 Discharged to Home. Impression: Chest Pain. - Condition is Stable. - Discharge Instructions: Nonspecific Chest Pain. - Prescriptions for Tramadol 50 mg Oral Tablet - take 1 tablet by ORAL route every 8 hours as needed; 12 tablet. - Medication Reconciliation Form, Thank You Letter, Antibiotic Education, Prescription Opioid Use form. - Follow up: Ha Krishnamurthy MD; When: 1 - 2 days; Reason: Recheck today's complaints, Re-evaluation by your physician. - Problem is new. - Symptoms have improved. - Notes: follow up with your doctor and or the heart doctor for further evaluation but return here immediately if symptoms worsen. Signatures: Dispatcher [employer] [facility] Nneka Kauffman, RN RN fc Leilani Roman RN RN tl2 Reed Valentino MD MD wa Davies, Jonathon RN RN jd3 Corrections: (The following items were deleted from the chart) 03:38 03:17 Chest Pa And Lat (2 Views)+RAD.RAD.BRZ ordered. [facility] 06:59 06:40 11/22/2018 06:40 Discharged to Home. Impression: Chest Pain. Condition is Stable. tl2 Forms are Medication Reconciliation Form, Thank You Letter, Antibiotic Education, Prescription Opioid Use. Follow up: Ha Krishnamurthy; When: 1 - 2 days; Reason: Recheck today's complaints, Re-evaluation by your physician. Problem is new. Symptoms have improved. clement
[2018-11-22 07:08] VITALS: TEMP 98.1
[2018-11-22 07:12] VITALS: BP 121/87; O2SAT 98
[2018-11-22 08:09] LABS: Urine Glucose NEGATIVE (NEG)
[2018-11-22 08:10] LABS: Urine Blood NEGATIVE (NEG); Urine Protein NEGATIVE (NEG); Urine pH 6.5 (5.0-7.0)
--- NOTE | 2018-11-22 08:33 | RAD REPORT ---
EXAM DESCRIPTION: RAD - Chest Single View - 11/22/2018 3:14 am CLINICAL HISTORY: Intermittent chest pain COMPARISON: October 2017 TECHNIQUE: AP portable chest image was obtained 0310 hours . FINDINGS: Lungs are clear. Heart and vasculature are normal. No measurable pleural effusion and no p neumothorax. No acute bony abnormality seen. No acute aortic findings suspected. IMPRESSION: No acute cardiopulmonary process. No suspicious interval change.
--- NOTE | 2018-11-22 11:12 | RAD REPORT ---
EXAM DESCRIPTION: CT - Chest For Pe Angio - 11/22/2018 5:35 am CLINICAL HISTORY: Chest pain COMPARISON: None TECHNIQUE: Axial 3mm CT imaging of the thorax utilizing intravenous contrast. Reformatted coronal an d sagittal and right and left oblique images obtained. This exam was performed according to our departmental dose-optimization program which includes automa marcello exposure control, adjustment of the mA and/or kV according to patient size and/or use of iterativ e reconstruction technique FINDINGS: PULMONARY ARTERIES: Normal caliber main pulmonary artery. No filling defect in the right atrium and right ventricle, central, or peripheral pulmonary vasculature. HEART/GREAT VESSELS: Heart is normal in size. No pericardial fluid. Normal caliber thoracic aorta wi th a normal branch pattern of the arch vessels. MEDIASTINUM/YASIR: No adenopathy. Normal appearance of the central airways. Normal esophagus. LUNGS/PLEURA: Lungs are clear. Pleural spaces are clear. Normal pulmonary vascularity. CHEST WALL/SOFT TISSUES: Unremarkable thyroid. No axillary adenopathy. Unremarkable bony structures. UPPER ABDOMEN: Normal included liver, spleen, pancreas, gallbladder, adrenal glands, kidneys, and behzad wel loops. IMPRESSION: 1. No pulmonary embolism. 2. No acute cardiopulmonary finding. Electronically signed by: Denise Velez DO 11/22/2018 5:10 AM CDT Due to temporary technical issues with the PACS/Fluency reporting system, reports are being signed by the in house radiologist as a courtesy to ensure prompt reporting. The interpreting radiologist is f ully responsible for the content of the report.
== END 2018-11-22 06:59 | disposition home or self-care (01) ==
LOC: ER 02:00
DX: R07.9 Chest pain, unspecified (principal); F32.9 Major depressive disorder, single episode, unspecified; F31.9 Bipolar disorder, unspecified; F41.9 Anxiety disorder, unspecified; F17.210 Nicotine dependence, cigarettes, uncomplicated; Z88.5 Allergy status to narcotic agent; Z88.8 Allergy status to other drugs, medicaments and biological substances
CPT/HCPCS: 36415; 71045; 71275; 80048; 80076; 81003; 81025; 83690; 83735; 84484; 85025; 85610; 93005; 96361; 96374; 99285; J7030; Q9967

== ENCOUNTER 2018-12-28 13:28 | Emergency (ER) | payer OTHER ==
--- OUTSIDE RECORDS SUMMARY | 2018-12-28 13:55 | XMS REPORT ---
:1985 [facility] Address [address] [place] [id number] Care Team Providers Name Role Phone JOYCE FOLEY BINTA Unavailable Unavailable Problems This patient has no known problems. Allergies, Adverse Reactions, Alerts This patient has no known allergies or adverse reactions. Medications This patient has no known medications. Encounters Start End Encounter Admission Attending Care Care Encounter Date/Time Date/Time Type Type Clinicians Facility Department ID 2017-04-09 2017-04-09 [facility] [id number] 00:00:00 00:00:00 2017-04-09 2017-04-09 [facility] [id number] 00:00:00 00:00:00 2017-04-08 2017-04-08 [facility] [id number] 22:35:00 22:35:00 2017-04-08 2017-04-08 [facility] [id number] 00:00:00 00:00:00 Results Test Description Test Time Test Comments Text Results Atomic Results Result Comments HEMOGLOBIN A1C 2017-07-16 13:26:00 Test Item Value Reference Range Comments HEMOGLOBIN A1C (BEAKER) (test ansj=353) 5.2 % 4.3-6.1 CBC W/PLT COUNT & AUTO [id number] 09:42:00 Test Item Value Reference Range Comments WHITE BLOOD CELL COUNT (BEAKER) (test kwtz=938) 8.3 K/ L 3.5-10.5 RED BLOOD CELL COUNT (BEAKER) (test rtqr=883) 3.47 M/ L 3.93-5.22 HEMOGLOBIN (BEAKER) (test mynt=177) 10.3 GM/DL 11.2-15.7 HEMATOCRIT (BEAKER) (test oned=632) 32.8 % 34.1-44.9 MEAN CORPUSCULAR VOLUME (BEAKER) (test qsrn=106) 94.5 fL 79.4-94.8 MEAN CORPUSCULAR HEMOGLOBIN (BEAKER) (test 29.7 pg 25.6-32.2 gmra=011) MEAN CORPUSCULAR HEMOGLOBIN CONC (BEAKER) (test 31.4 GM/DL 32.2-35.5 pfit=658) RED CELL DISTRIBUTION WIDTH (BEAKER) (test 13.1 % 11.7-14.4 aene=674) PLATELET COUNT (BEAKER) (test wnuh=875) 284 K/CU MM 150-450 MEAN PLATELET VOLUME (BEAKER) (test laof=368) 9.7 fL 9.4-12.3 NUCLEATED RED BLOOD CELLS (BEAKER) (test 0 /100 WBC 0-0 hbrl=446) IMMATURE GRANULOCYTES-RELATIVE PERCENT (BEAKER) 0 % 0-1 (test shkg=6558) (MANUAL DIFFERENTIAL)2017-07-16 09:42:00 Test Item Value Reference Range Comments NEUTROPHILS - REL (DIFF) (BEAKER) (test iuic=8675) 36 % LYMPHOCYTES - REL (DIFF) (BEAKER) (test ibnf=6355) 53 % MONOCYTES - REL (DIFF) (BEAKER) (test fwzn=7064) 4 % EOSINOPHILS - REL (DIFF) (BEAKER) (test cayy=9555) 2 % BASOPHILS - REL (DIFF) (BEAKER) (test ktro=5256) 2 % ATYPICAL LYMPHOCYTE - REL (DIFF) (BEAKER) (test 3 % 0-0 yfcn=394) NEUTROPHILS - ABS (DIFF) (BEAKER) (test konj=5868) 2.99 K/ L 1.80-8.00 LYMPHOCYTES - ABS (DIFF) (BEAKER) (test czno=5276) 4.40 K/ L 1.48-4.50 MONOCYTES - ABS (DIFF) (BEAKER) (test cwcb=4412) 0.33 K/ L 0.00-1.30 EOSINOPHILS - ABS (DIFF) (BEAKER) (test gyfj=9723) 0.17 K/ L 0.00-0.50 BASOPHILS - ABS (DIFF) (BEAKER) (test aapa=2268) 0.17 K/ L 0.00-0.20 ATYPICAL LYMPHOCYTES - ABS (DIFF) (BEAKER) (test 0.25 K/ L 0.00-0.00 fnqv=510) TOTAL COUNTED (BEAKER) (test qsjc=0909) 100 WBC MORPHOLOGY (BEAKER) (test gltv=749) Normal PLT MORPHOLOGY (BEAKER) (test eoya=631) Normal RBC MORPHOLOGY (BEAKER) (test svea=754) Normal [id number] 07:11:00 Test Item Value Reference Range Comments MAGNESIUM (BEAKER) (test aeiz=415) 1.5 mg/dL 1.6-2.6 BASIC METABOLIC [id number] 07:11:00 Test Item Value Reference Range Comments SODIUM (BEAKER) (test 140 meq/L 136-145 lhwp=291) POTASSIUM (BEAKER) (test 3.6 meq/L 3.5-5.1 wzjr=943) CHLORIDE (BEAKER) (test 119 meq/L 98-107 gwny=237) CO2 (BEAKER) (test 16 meq/L 22-29 puwf=213) BLOOD UREA NITROGEN 7 mg/dL 7-21 (BEAKER) (test bycx=904) CREATININE (BEAKER) (test 0.59 mg/dL 0.57-1.25 unky=954) GLUCOSE RANDOM (BEAKER) 89 mg/dL 70-105 (test qdyc=648) CALCIUM (BEAKER) (test 8.3 mg/dL 8.4-10.2 lcnr=651) EGFR (BEAKER) (test 118 mL/min/1.73 sq m ESTIMATED GFR IS NOT nizv=5634) ACCURATE CREATININE CLEARANCE IN PREDICTING GLOMERULAR FILTRATION RATE. ESTIMATED GFR IS NOT APPLICABLE FOR DIALYSIS PATIENTS. LIPID [id number] 07:11:00 Test Item Value Reference Range Comments TRIGLYCERIDES (BEAKER) (test atkr=390) 75 mg/dL CHOLESTEROL (BEAKER) (test gvib=244) 173 mg/dL HDL CHOLESTEROL (BEAKER) (test prhd=251) 33 mg/dL LDL CHOLESTEROL CALCULATED (BEAKER) (test 125 mg/dL hlyr=827) Triglyceride Reference Range: Low Risk <150 Borderline 150- 199 High Risk 200-499 Very High Risk >=500Cholesterol Reference Range: Low Risk <200 Borderline 200-239 High Risk > 240HDL Cholesterol Reference Range: Low Risk >=60 High Risk <40LDL Cholesterol Reference Range: Optimal <100 Near Optimal 100-129 Borderline 130-159 High 160-189 Very High >=190TROPONIN [id number] 06:34:00 Test Item Value Reference Range Comments TROPONIN I (BEAKER) (test erab=579) < ng/mL 0.00-0.03 Troponin I (TnI) levels [...] acidosis, acute neurological disease, and persistent tachyarrhythmia.TROPONIN [id number] 23:58:00 Test Item Value Reference Range Comments TROPONIN I (BEAKER) (test unna=055) < ng/mL 0.00-0.03 Troponin I (TnI) levels [...]
--- OUTSIDE RECORDS SUMMARY | 2018-12-28 13:55 | XMS REPORT | Clinical Summary ---
:1985 Author Organization [facility] Address [address] [place] [address] Care Team Providers Name Role Phone Cathy [...] Not on file Results Not on fileafter 12/27/2017 Insurance Payer Benefit Plan / Group Subscriber ID Type Phone Address xxxxxxxxx Other Govt (, [place], [facility], etc.) Advance Directives For more information, please contact:[address] [phone] Code Status Date Activated Date Inactivated Comments Full Code 07/15/2017 10:38 PM 07/16/2017 5:00 PM This code status was determined by: Patient
--- OUTSIDE RECORDS SUMMARY | 2018-12-28 13:55 | XMS REPORT | Clinical Summary ---
:1985 Author Organization [facility] Address [address] [place] [address] Care Team Providers Name Role Phone Kit [...] INFLUENZA VACCINE 03/21/2019 Results Not on fileafter 12/27/2017 Insurance Payer Benefit Plan / Group Subscriber ID Type Phone Address FOR LIFE xxxxxxxxx Advance Directives Patient has advance care planning documents on file. For more information, please contact:[facility] [place] [address]
--- NOTE | 2018-12-28 14:41 | EKG ---
Test Date: 2018-12-28 Test Time: 14:12:32 Pretzel Packer: NICA MEASUREMENT RESULTS: Intervals: Rate: 54 AL: 158 QRSD: 84 QT: 416 QTc: 394 [place]: P: 32 AL: 158 QRS: 77 T: 47 INTERPRETIVE STATEMENTS: Sinus bradycardia Otherwise normal ECG Compared to ECG 11/22/2018 02:16:46 Sinus rhythm no longer present T-wave abnormality no longer present Electronically Signed On 12-28-18 14:40:38 CDT by Rocky Sutton
[2018-12-28 14:58] LABS: Absolute Lymphocytes (CBC) 3.8 K/uL (0.7-4.9); Absolute Neutrophil 11.1 K/uL (1.8-8.0); Basophils % 0.6 % (0-1.3); Eosinophils % 1.2 % (0-4.4); Hematocrit 41.1 % (36.0-45.0); Lymphocytes % 23.6 % (15.3-44.8); MPV 8.1 fL (7.6-11.3); Monocytes % 6.2 % (3.3-12.3); RBC Red Blood Cell Count 4.53 M/uL (3.86-4.86)
[2018-12-28 15:00] LABS: Protime INR 1.06
[2018-12-28 15:12] LABS: Barbiturates NEGATIVE (NEGATIVE); Benzodiazepines NEGATIVE (NEGATIVE); Cocaine NEGATIVE (NEGATIVE); METHAMPHETAM POSITIVE (NEGATIVE); Methadone NEGATIVE (NEGATIVE); Opiates NEGATIVE (NEGATIVE); Phencyclidine NEGATIVE (NEGATIVE); THC Cannibis POSITIVE (NEGATIVE)
[2018-12-28 15:15] LABS: ALT/SGPT 19 U/L (12-78); AST/SGOT 13 U/L (15-37); Albumin 3.9 g/dL (3.4-5.0); Alkaline Phosphatase 95 U/L (45-117); BUN Blood Urea Nitrogen 9 mg/dL (7-18); Bicarbonate 24 mmol/L (21-32); Bilirubin Direct < 0.1 mg/dL (0-0.2); Bilirubin Total 0.3 mg/dL (0.2-1.0); Glucose Level 84 mg/dL (74-106); Potassium 4.1 mmol/L (3.5-5.1); Protein, Total 7.8 g/dL (6.4-8.2); Sodium Level 139 mmol/L (136-145)
[2018-12-28] MEDS ORDERED: NA CHLORIDE 0.9% 1,000 ML ONE ×2 (15:20→17:29)
[2018-12-28 15:24] LABS: Urine Blood NEGATIVE (NEG); Urine Glucose NEGATIVE (NEG); Urine Protein NEGATIVE (NEG); Urine Specific Gravity 1.015 (1.005-1.030)
[2018-12-28 19:04] LABS: Absolute Lymphocytes (CBC) 4.3 K/uL (0.7-4.9); Absolute Monocytes 0.8 K/uL (0.1-1.3); Basophils % 0.6 % (0-1.3); Eosinophils % 1.4 % (0-4.4); Hematocrit 38.8 % (36.0-45.0); Lymphocytes % 34.8 % (15.3-44.8); MPV 8.3 fL (7.6-11.3); Monocytes % 6.2 % (3.3-12.3); RBC Red Blood Cell Count 4.23 M/uL (3.86-4.86)
[2018-12-28] MEDS ORDERED: LORAZEPAM 1 MG TABLET ONE (22:40)
--- NOTE | 2018-12-29 01:31 | ER ---
Nurse's Notes [facility] Name: Natasha Spann Age: 33 yrs Sex: Female : 1985 Arrival Date: 12/28/2018 Time: 13:41 Bed 17 Private MD: Diagnosis: Suicidal ideations Presentation: 12/28 13:41 Presenting complaint: EMS states: called out for SI, pt reports wanting to take all her em medication or jump off bridge, reports she is homeless and family dropped her off under a bridge last night. Transition of care: patient was not received from another setting of care. Onset of symptoms was December 28, 2018. Risk Assessment: Do you want to hurt yourself or someone else? Patient reports desire/thoughts of hurting themselves or someone else. Provider notified. Initial Sepsis Screen: Does the patient meet any 2 criteria? No. Patient's initial sepsis screen is negative. Does the patient have a suspected source of infection? No. Patient's initial sepsis screen is negative. Care prior to arrival: None. 13:41 Method Of Arrival: EMS: [facility] em 13:42 Acuity: EMILY 2 iw Triage Assessment: 13:46 General: Appears in no apparent distress. comfortable, Behavior is calm, cooperative. em Pain: Denies pain. AUDITOR APPRAISER: 13:46 LMP 11/23/2018 em Historical: - Allergies: 13:46 bupropion HCl; em 13:46 Levofloxacin; em 13:46 Wellbutrin; em - Home Meds: 13:46 aripiprazole 15 mg Oral tab 1 tab nightly [Active]; duloxetine 30 mg Oral cpDR 1 cap em once daily [Active]; hydroxyzine HCl 25 mg Oral tab 4 times per day [Active]; omeprazole 40 mg Oral cpDR 1 cap once daily [Active]; propranolol 20 mg Oral tab 1 tab 2 times per day [Active]; trazodone 150 mg Oral tab 1 tab night prn [Active]; - PMHx: 13:46 ADD/ADHD; Anxiety; Bipolar disorder; Depression; Endometrosis; Gastric Reflux; MRSA; em osteomylitis; Ovarian cyst; - Immunization history:: Flu vaccine is not up to date. - Social history:: Smoking status: Patient uses tobacco products, smokes one pack cigarettes per day. - Ebola Screening: : Patient negative for fever greater than or equal to 101.5 degrees Fahrenheit, and additional compatible Ebola Virus Disease symptoms Patient denies exposure to infectious person Patient denies travel to an Ebola-affected area in the 21 days before illness onset No symptoms or risks identified at this time. Screenin:45 Abuse screen: Denies threats or abuse. Nutritional screening: No deficits noted. em Tuberculosis screening: No symptoms or risk factors identified. Fall Risk None identified. Assessment: 13:48 General: Appears in no apparent distress. comfortable, Behavior is calm, cooperative. em Pain: Denies pain. Neuro: Level of Consciousness is awake, alert, obeys commands, Oriented to person, place, time, situation. Cardiovascular: Capillary refill < 3 seconds Patient's skin is warm and dry. Respiratory: Airway is patent Respiratory effort is even, unlabored, Respiratory pattern is regular, symmetrical. Derm: Skin is intact, is healthy with good turgor, Skin is pink, warm \T\ dry. Musculoskeletal: Amputation of left leg. Capillary refill < 3 seconds, Range of motion: intact in all extremities. 18:10 Reassessment: Patient appears in no apparent distress at this time. Patient and/or em family updated on plan of care and expected duration. Pain level reassessed. Patient is alert, oriented x 3, equal unlabored respirations, skin warm/dry/pink. 19:15 Reassessment: Patient and/or family updated on plan of care and expected duration. Pain cr4 level reassessed. General: Appears in no apparent distress. comfortable, Behavior is calm, cooperative. Neuro: Level of Consciousness is awake, alert, obeys commands, Oriented to person, place, time, situation. Cardiovascular: Denies chest pain, lightheadedness, palpitations, shortness of breath, Capillary refill < 3 seconds Patient's skin is warm and dry. Respiratory: Airway is patent Respiratory effort is even, unlabored, Respiratory pattern is regular, Breath sounds are clear bilaterally. Denies cough, shortness of breath. GI: Bowel sounds present X 4 quads. Patient currently denies abdominal pain, nausea, pain. : Denies burning with urination, incontinence. EENT: No deficits noted. Derm: Skin is intact, is healthy with good turgor, Skin is pink, warm \T\ dry. Musculoskeletal: Amputation of left leg. Capillary refill < 3 seconds, Range of motion: intact in all extremities. 20:15 Reassessment: patient spoke on phone with parents and became upset and started crying. cr4 She stated that they would not pick her up after being asked what happened. Coreg Page in to see patient and asked if she wanted to go home, explained to patient that if her mother came for her she could be discharged.. 22:00 Reassessment: Page in to speak with patient about her options. He was notified the cr4 patient stated she was better off and she had no one. She stated that she did not one to be alive.. 22:13 Reassessment: Patient unable to have someone pick her up .She then stated that she cr4 doesn't have anyone and no one cares about her .She would be better off .. 22:49 Reassessment: Patient and/or family updated on plan of care and expected duration. Pain cr4 level reassessed. 23:27 Reassessment: Spoke to Herb with [facility] and gave our fax number. He is to send cr4 an exclusionary form and we are to send lab results. 23:40 Reassessment: Spoke To Rojelio with [facility]. Page to call Dr. yelitza Elizabeth at for a one to one. . 12/29 00:10 Reassessment: Patient and/or family updated on plan of care and expected duration. Pain cr4 level reassessed. Patient is alert, oriented x 3, equal unlabored respirations, skin warm/dry/pink. attempting to sleep and get rest.. 00:56 Reassessment: patient laying left lateral side,breathing regular and no signs of cr4 distress.. 02:00 Reassessment: Patient with eyes closed, breathing regular with no signs of distress. cr4 had patient sign MOT. Psych: 12/28 13:54 Safety Checks: Personal items have been removed. Door is open. No visitors are present em at this time. 14:00 Safety Checks: Personal items have been removed. Door is open. No visitors are present em at this time. 14:15 Safety Checks: Personal items have been removed. Door is open. No visitors are present em at this time. 14:30 Safety Checks: Personal items have been removed. em 14:30 Safety Checks: Door is open. No visitors are present at this time. em 14:45 Safety Checks: Personal items have been removed. Door is open. No visitors are present em at this time. 15:00 Safety Checks: Personal items have been removed. Door is open. No visitors are present mc3 at this time. 15:15 Safety Checks: Personal items have been removed. Door is open. No visitors are present mc3 at this time. 15:30 Safety Checks: Personal items have been removed. Door is open. No visitors are present mc3 at this time. 15:45 Safety Checks: Personal items have been removed. Door is open. No visitors are present mc3 at this time. pt resting comfortably in bed. 16:00 Safety Checks: Personal items have been removed. Door is open. No visitors are present mc3 at this time. 16:15 Safety Checks: Personal items have been removed. Door is open. No visitors are present mc3 at this time. pt resting in bed at this time. 16:30 Safety Checks: Personal items have been removed. Door is open. No visitors are present mc3 at this time. 16:45 Safety Checks: Personal items have been removed. Door is open. No visitors are present mc3 at this time. 17:00 Safety Checks: Personal items have been removed. Door is open. No visitors are present mc3 at this time. 17:15 Safety Checks: Personal items have been removed. Door is open. No visitors are present mc3 at this time. 17:30 Safety Checks: Personal items have been removed. Door is open. No visitors are present mc3 at this time. 17:45 Safety Checks: Personal items have been removed. Door is open. No visitors are present mc3 at this time. 18:00 Safety Checks: Personal items have been removed. Door is open. No visitors are present mc3 at this time. 18:15 Safety Checks: Personal items have been removed. Door is open. No visitors are present mc3 at this time. 18:30 Safety Checks: Personal items have been removed. Door is open. No visitors are present mc3 at this time. 18:45 Safety Checks: Personal items have been removed. Door is open. No visitors are present mc3 at this time. redrawn cbc. pt. resting in bed comfortabley. will continue to monitor. 20:00 Patient uses marijuana Patient uses methamphetamines. cr4 20:00 Interventions: Removed personal items and placed in bag. Patient placed in hospital cr4 gown. 21:15 Subjective: Patient's mood is hopeless, Delusions are denied, Hallucinations are denied cr4 Having thoughts of suicide. Denies suicidal plan. 23:00 Objective: Patient is cooperative, patient started crying after speaking to Fatherand cr4 Mother. Speech is normal, Affect is appropriate. Suicide Risk Assessment: Sad Person Scale: Sex of patient: Female: Score 0 points. Age of patient: Score 1 point if patient 15-34. Depression: Score 1 point if signs of depression are present. Previous Attempt: Score 1 point if patient has previously attempted suicide. Substance Abuse: Score 1 point if patient abuses alcohol or drugs. Rational Thinking: Score 0 point if patient has rational thinking. Social Support: Score 1 point if social support is lacking and/or unavailable. Organized Plan: Score 0 if patient did not have an organized plan in place. Relationship: Score 1 point if patient is , , , or for a single male Chronic Sickness: Score 1 point if patient has illness, chronic, debilitating, or severe. TOTAL POINTS: If total points are 7-10, the proposed clinical action is to hospitalize or commit. Implement suicide precautions. 12/29 01:50 Commitment: Patient will be a voluntary commitment. [facility] Vital Signs: 12/28 13:46 BP 130 / 89; Pulse 62; Resp 18; Temp 98.7(O); Pulse Ox 99% on R/A; Weight 90.72 kg; em Height 5 ft. 8 in. (172.72 cm); Pain 0/10; 15:07 BP 113 / 70; Pulse 61; Resp 16; Temp 97.; Pulse Ox 98% ; mc3 16:11 BP 112 / 70; Pulse 58; Resp 16; Temp 97.5; Pulse Ox 99% on R/A; mc3 16:48 BP 110 / 71; Pulse 59; Resp 16; Temp 97.5; Pulse Ox 99% on R/A; mc3 17:28 BP 119 / 70; Pulse 59; Resp 16; Temp 97.3; Pulse Ox 99% on R/A; mc3 19:22 BP 135 / 81; Pulse 64; Resp 16; Temp 98.4; Pulse Ox 99% ; Pain 2/10; cr4 23:48 BP 101 / 53; Pulse 55; Resp 16; Temp 98; Pulse Ox 97% ; Pain 0/10; cr4 12/29 00:00 BP 114 / 65; cr4 12/28 13:46 Body Mass Index 30.41 (90.72 kg, 172.72 cm) em ED Course: 12/28 13:41 Patient arrived in ED. em 13:50 Arm band placed on. em 13:51 Guanakito Jimenez LVN is Primary Nurse. em 14:06 Jamal Rodas NP is PHCP. pm1 14:06 Ad Alston MD is Attending Physician. pm1 14:16 EKG done, by cardiopulmonary technologist chief. reviewed by Jamal Rodas NP. at1 14:42 Triage completed. iw 14:43 Acetaminophen Sent. em 14:43 Basic Metabolic Panel Sent. em 14:43 CBC with Diff Sent. em 14:43 ETOH Level Sent. em 14:44 Hepatic Function Sent. em 14:44 PT-INR Sent. em 14:44 Urine Drug Screen Sent. em 14:44 Salicylate Sent. em 14:44 Ptt, Activated Sent. em 14:44 Basic Metabolic Panel Sent. em 14:44 Acetaminophen Level Sent. em 16:15 Diet: Patient given a regular meal tray. mc3 18:51 called the [facility] Crisis line to page out a screener to come evaluate the patient/ eb Rae says she will notify the screener of our request. 18:53 CBC with Diff Sent. mc3 18:57 PHCP role handed off by Jamal Rodas NP cp 18:57 Ole Lassiter PA is PHCP. cp 19:00 Safety checks: Items removed: yes. Door open/sign placed on door: yes. Family/friend ag4 present: no. Sitter present: Yes. 19:15 Safety Checks: Personal items have been removed. The door is open or patient has been cr4 placed in a hallway bed/chair. There are no family/friend visitors at this time Sitter present at this time. 19:15 Safety checks: Items removed: yes. Door open/sign placed on door: yes. Family/friend cr4 present: no. Sitter present: Yes. 19:20 Assisted to bathroom. cr4 19:30 Safety Checks: Personal items have been removed. The door is open or patient has been cr4 placed in a hallway bed/chair. There are no family/friend visitors at this time Sitter present at this time. 19:45 Safety Checks: Personal items have been removed. The door is open or patient has been cr4 placed in a hallway bed/chair. There are no family/friend visitors at this time Sitter present at this time. 20:00 Safety Checks: Personal items have been removed. The door is open or patient has been cr4 placed in a hallway bed/chair. There are no family/friend visitors at this time Sitter present at this time. 20:00 Patient has correct armband on for positive identification. Pulse ox on. NIBP on. cr4 Sitter at bedside. Lights dimmed. Pillow given. 20:15 Safety Checks: Personal items have been removed. The door is open or patient has been cr4 placed in a hallway bed/chair. There are no family/friend visitors at this time Sitter present at this time. 20:30 Safety Checks: Personal items have been removed. The door is open or patient has been cr4 placed in a hallway bed/chair. Other: [facility] in room speaking with the patient. 20:45 Safety Checks: Personal items have been removed. The door is open or patient has been cr4 placed in a hallway bed/chair. Other: [facility] in to visiting with the pt. 21:00 Safety Checks: Personal items have been removed. The door is open or patient has been cr4 placed in a hallway bed/chair. There are no family/friend visitors at this time Sitter present at this time. 21:15 Safety Checks: Personal items have been removed. The door is open or patient has been cr4 placed in a hallway bed/chair. There are no family/friend visitors at this time Sitter present at this time. 21:15 Appears agitated. Appears tearful. Appears upset. The patient spoke to her mother and cr4 father on phone at the nursing station,she became upset started yelling and slammed the phone. 21:25 Notified Nurse Practitioner and/or Physician Pulmonology Physician of [facility] to updated Johan torre on phone call with parents. 21:30 Safety Checks: Personal items have been removed. The door is open or patient has been cr4 placed in a hallway bed/chair. There are no family/friend visitors at this time Sitter present at this time. 21:45 Safety Checks: Personal items have been removed. The door is open or patient has been cr4 placed in a hallway bed/chair. There are no family/friend visitors at this time Sitter present at this time. 22:00 Safety Checks: Personal items have been removed. The door is open or patient has been cr4 placed in a hallway bed/chair. There are no family/friend visitors at this time Sitter present at this time. 22:15 Safety Checks: Personal items have been removed. The door is open or patient has been cr4 placed in a hallway bed/chair. There are no family/friend visitors at this time Sitter present at this time. 22:26 Notified Nurse Practitioner and/or Physician Pulmonology Physician of patient requested her cr4 medications or something for anxiety. 22:30 Safety Checks: Personal items have been removed. The door is open or patient has been cr4 placed in a hallway bed/chair. There are no family/friend visitors at this time Sitter present at this time. 22:44 Gave a one to one with Basilia with [facility]. cr4 22:45 Safety Checks: Personal items have been removed. The door is open or patient has been cr4 placed in a hallway bed/chair. There are no family/friend visitors at this time Sitter present at this time. Other: [facility] in with patient. 23:00 Safety Checks: Personal items have been removed. The door is open or patient has been cr4 placed in a hallway bed/chair. There are no family/friend visitors at this time Sitter present at this time. 23:15 Safety Checks: Personal items have been removed. The door is open or patient has been cr4 placed in a hallway bed/chair. There are no family/friend visitors at this time Sitter present at this time. 23:30 Safety Checks: Personal items have been removed. The door is open or patient has been cr4 placed in a hallway bed/chair. There are no family/friend visitors at this time Sitter present at this time. 23:45 Safety Checks: Personal items have been removed. The door is open or patient has been cr4 placed in a hallway bed/chair. There are no family/friend visitors at this time Sitter present at this time. 12/29 00:00 Safety Checks: Personal items have been removed. The door is open or patient has been cr4 placed in a hallway bed/chair. There are no family/friend visitors at this time Sitter present at this time. 00:15 Safety Checks: Personal items have been removed. The door is open or patient has been cr4 placed in a hallway bed/chair. There are no family/friend visitors at this time Sitter present at this time. 00:30 Safety Checks: Personal items have been removed. The door is open or patient has been cr4 placed in a hallway bed/chair. There are no family/friend visitors at this time Sitter present at this time. 00:45 Safety Checks: Personal items have been removed. The door is open or patient has been cr4 placed in a hallway bed/chair. There are no family/friend visitors at this time Sitter present at this time. 01:00 Safety Checks: Personal items have been removed. The door is open or patient has been cr4 placed in a hallway bed/chair. There are no family/friend visitors at this time Sitter present at this time. 01:15 Safety Checks: Personal items have been removed. The door is open or patient has been cr4 placed in a hallway bed/chair. There are no family/friend visitors at this time Sitter present at this time. 01:30 Safety Checks: Personal items have been removed. The door is open or patient has been cr4 placed in a hallway bed/chair. There are no family/friend visitors at this time Sitter present at this time. 01:45 Safety Checks: Personal items have been removed. The door is open or patient has been cr4 placed in a hallway bed/chair. There are no family/friend visitors at this time Sitter present at this time. 02:00 Safety Checks: Personal items have been removed. The door is open or patient has been cr4 placed in a hallway bed/chair. There are no family/friend visitors at this time Sitter present at this time. 02:15 Safety Checks: Personal items have been removed. The door is open or patient has been cr4 placed in a hallway bed/chair. There are no family/friend visitors at this time Sitter present at this time. 02:30 Safety Checks: Other: [facility] here to take pt to psychiatric facility. cr4 02:34 No provider procedures requiring assistance completed. IV discontinued, intact, cr4 bleeding controlled, No redness/swelling at site. 02:46 [facility] transferring pt.belonings sent with the patient. cr4 Administered Medications: 12/28 15:14 Drug: NS 0.9% 1000 ml Route: IV; Rate: 1000 ml; Site: right antecubital; mc3 16:15 Follow up: Response: No adverse reaction; IV Status: Completed infusion; IV Intake: mc3 1000ml 17:20 Drug: NS 0.9% 1000 ml Route: IV; Rate: 1000 ml; Site: right antecubital; mc3 18:46 Follow up: Rate change ml; IV Status: Completed infusion; IV Intake: 1000ml mc3 22:36 Drug: Ativan 1 mg Route: PO; cr4 23:20 Follow up: Response: No adverse reaction; Anxiety decreased cr4 Intake: 16:15 IV: 1000ml; Total: 1000ml. mc3 18:46 IV: 1000ml; Total: 2000ml. mc3 Outcome: 12/29 01:29 ER care complete, transfer ordered by . cp 02:30 Patient left the ED. cr4 02:34 [facility] 02:34 Condition: stable 02:34 Discharge instructions given to patient, Instructed on the need for transfer, Demonstrated understanding of Signatures: Guanakito Jimenez, SAW SUPERINTENDENT SAW SUPERINTENDENT em Anastasia Patel RN RN iw Ruiz, Claudia, RN RN cr4 Angle Griffith, supervisor aircraft maintenance EKG Tat1 Ole Lassiter PA PA cp Jamal Rodas, REMIGIO ANDROID SOFTWARE ENGINEER pm1 Lina Waller Charlene cc3 Dwight Coppola ag4 Linn Griffin, JONY RN mc3 Corrections: (The following items were deleted from the chart) 12/28 15:36 15:15 Safety Checks: Personal items have been removed. Door is open. Visitors are mc3 present. mc3 16:06 15:15 Safety Checks: Personal items have been removed. Door is open. Visitors are mc3 present. No visitors are present at this time. mc3 18:18 13:41 Presenting complaint: EMS states: called for for SI, pt reports wanting to take em all her medication or jump off bridge, reports she is homeless and family dropped her off under a bridge last night em 19:27 19:15 Safety checks: Items removed: yes. Door open/sign placed on door: yes. cr4 Family/friend present: no. Sitter present: Yes. ag4 12/29 00:08 0510 23:15 Safety Checks: Personal items have been removed. The door is open or cc3 patient has been placed in a hallway bed/chair. There are no family/friend visitors at this time Sitter present at this time. cc3 12/29 00:09 00:06 Reassessment: Patient and/or family updated on plan of care and expected cc3 duration. Pain level reassessed. Patient is alert, oriented x 3, equal unlabored respirations, skin warm/dry/pink. cc3
--- NOTE | 2018-12-29 01:31 | EDPHYS ---
Physician Documentation [facility] Name: Natasha Spann Age: 33 yrs Sex: Female : 1985 Arrival Date: 12/28/2018 Time: 13:41 Bed 17 Private MD: ED Physician Ad Alston HPI: 12/28 14:43 This 33 yrs old Female presents to ER via EMS with complaints of Suicidal pm1 Ideation. 14:43 The patient presents to the emergency department with suicide ideation, and the patient pm1 has a plan, to jump from a height to overdose with medications. Onset: The symptoms/episode began/occurred 2 day(s) ago. Past psychiatric history: Prior diagnosis: bipolar disorder, anxiety, Psychiatric medications include: Abilify, Cymbalta, hydroxyzine, propranolol, trazadone, the patient has a previous inpatient psychiatric history, suicidal ideation . Associated signs and symptoms: Pertinent positives; anxiety, depression, suicide ideation, Pertinent negatives: abdominal pain, chest pain, fever, hallucinations, homicidal ideation, shortness of breath, substance abuse. Severity of symptoms: in the emergency department the symptoms are unchanged. The patient has experienced similar episodes in the past, a few times. The patient has not recently seen a physician. Patient was kicked out her living situation 2 days ago. She was living with her uncle and aunt. Dropped her off under a bridge. Patient is thinking about overdosing on her medications or jumping off a bridge. She has lost her insurance recently so she has decided to start stretching out her medications from a fear of inability to afford her medications. She is taking them every other three days. 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 em Historical: - Allergies: 13:46 bupropion HCl; em 13:46 Levofloxacin; em 13:46 Wellbutrin; em - Home Meds: 13:46 aripiprazole 15 mg Oral tab 1 tab nightly [Active]; duloxetine 30 mg Oral cpDR 1 cap em once daily [Active]; hydroxyzine HCl 25 mg Oral tab 4 times per day [Active]; omeprazole 40 mg Oral cpDR 1 cap once daily [Active]; propranolol 20 mg Oral tab 1 tab 2 times per day [Active]; trazodone 150 mg Oral tab 1 tab night prn [Active]; - PMHx: 13:46 ADD/ADHD; Anxiety; Bipolar disorder; Depression; Endometrosis; Gastric Reflux; MRSA; em osteomylitis; Ovarian cyst; - Immunization history:: Flu vaccine is not up to date. - Social history:: Smoking status: Patient uses tobacco products, smokes one pack cigarettes per day. - Ebola Screening: : Patient negative for fever greater than or equal to 101.5 degrees Fahrenheit, and additional compatible Ebola Virus Disease symptoms Patient denies exposure to infectious person Patient denies travel to an Ebola-affected area in the 21 days before illness onset No symptoms or risks identified at this time. ROS: 14:43 Constitutional: Negative for fever, chills, and weight loss, Eyes: Negative for injury, pm1 pain, redness, and discharge, ENT: Negative for injury, pain, and discharge, Neck: Negative for injury, pain, and swelling, Cardiovascular: Negative for chest pain, palpitations, and edema, Respiratory: Negative for shortness of breath, cough, wheezing, and pleuritic chest pain, Abdomen/GI: Negative for abdominal pain, nausea, vomiting, diarrhea, and constipation, Back: Negative for injury and pain, : Negative for injury, bleeding, discharge, and swelling, MS/Extremity: Negative for injury and deformity, Skin: Negative for injury, rash, and discoloration, Neuro: Negative for headache, weakness, numbness, tingling, and seizure. 14:43 Psych: Positive for anxiety, depression, suicidal ideation, Negative for auditory hallucinations, visual hallucinations. Exam: 14:15 ECGSinus bradycardia 54 BPM pm1 14:43 Constitutional: This is a well developed, well nourished patient who is awake, alert, pm1 and in no acute distress. Head/Face: Normocephalic, atraumatic. Eyes: Pupils equal round and reactive to light, extra-ocular motions intact. Lids and lashes normal. Conjunctiva and sclera are non-icteric and not injected. Cornea within normal limits. Periorbital areas with no swelling, redness, or edema. ENT: Nares patent. No nasal discharge, no septal abnormalities noted. Tympanic membranes are normal and external auditory canals are clear. Oropharynx with no redness, swelling, or masses, exudates, or evidence of obstruction, uvula midline. Mucous membranes moist. Neck: Trachea midline, no thyromegaly or masses palpated, and no cervical lymphadenopathy. Supple, full range of motion without nuchal rigidity, or vertebral point tenderness. No Meningismus. Chest/axilla: Normal chest wall appearance and motion. Nontender with no deformity. No lesions are appreciated. Cardiovascular: Regular rate and rhythm with a normal S1 and S2. No gallops, murmurs, or rubs. Normal PMI, no JVD. No pulse deficits. Respiratory: Lungs have equal breath sounds bilaterally, clear to auscultation and percussion. No rales, rhonchi or wheezes noted. No increased work of breathing, no retractions or nasal flaring. Abdomen/GI: Soft, non-tender, with normal bowel sounds. No distension or tympany. No guarding or rebound. No evidence of tenderness throughout. Back: No spinal tenderness. No costovertebral tenderness. Full range of motion. Skin: Warm, dry with normal turgor. Normal color with no rashes, no lesions, and no evidence of cellulitis. 14:43 Musculoskeletal/extremity: Extremities: grossly normal except: noted in the left leg: left BKA. 14:43 Neuro: Orientation: is normal, Motor: is normal, moves all fours. Vital Signs: 13:46 BP 130 / 89; Pulse 62; Resp 18; Temp 98.7(O); Pulse Ox 99% on R/A; Weight 90.72 kg; em Height 5 ft. 8 in. (172.72 cm); Pain 0/10; 15:07 BP 113 / 70; Pulse 61; Resp 16; Temp 97.; Pulse Ox 98% ; mc3 16:11 BP 112 / 70; Pulse 58; Resp 16; Temp 97.5; Pulse Ox 99% on R/A; mc3 16:48 BP 110 / 71; Pulse 59; Resp 16; Temp 97.5; Pulse Ox 99% on R/A; mc3 17:28 BP 119 / 70; Pulse 59; Resp 16; Temp 97.3; Pulse Ox 99% on R/A; mc3 19:22 BP 135 / 81; Pulse 64; Resp 16; Temp 98.4; Pulse Ox 99% ; Pain 2/10; cr4 23:48 BP 101 / 53; Pulse 55; Resp 16; Temp 98; Pulse Ox 97% ; Pain 0/10; cr4 12/29 00:00 BP 114 / 65; cr4 12/28 13:46 Body Mass Index 30.41 (90.72 kg, 172.72 cm) em MDM: 12/28 14:06 Patient medically screened. pm1 14:56 Data reviewed: vital signs. Data interpreted: Pulse oximetry: on room air is 99 %. pm1 Interpretation: normal. 12/28 14:06 Order name: Acetaminophen pm1 12/28 14:06 Order name: Basic Metabolic Panel pm1 12/28 14:06 Order name: CBC with Diff; Complete Time: 15:04 pm1 12/28 14:06 Order name: ETOH Level; Complete Time: 16:56 pm1 12/28 14:06 Order name: Hepatic Function; Complete Time: 16:56 pm1 12/28 14:06 Order name: PT-INR; Complete Time: 15:06 pm1 12/28 14:06 Order name: Ptt, Activated; Complete Time: 15:06 pm1 12/28 14:06 Order name: Salicylate; Complete Time: 16:56 pm1 12/28 14:06 Order name: Urine Drug Screen; Complete Time: 16:56 pm1 12/28 14:07 Order name: Acetaminophen Level; Complete Time: 16:56 EDMS 12/28 14:07 Order name: Basic Metabolic Panel; Complete Time: 16:56 EDMS 12/28 14:47 Order name: Urine Dipstick--Ancillary (enter results); Complete Time: 16:56 eb 12/28 14:47 Order name: Urine --Ancillary (enter results); Complete Time: 16:56 eb 12/28 18:45 Order name: CBC with Diff; Complete Time: 23:45 em 12/28 14:06 Order name: Urine Test (obtain specimen); Complete Time: 14:44 pm1 12/28 14:06 Order name: EKG; Complete Time: 14:07 pm1 12/28 14:06 Order name: EKG - Nurse/Tech; Complete Time: 15:05 pm1 12/28 14:06 Order name: IV Saline Lock; Complete Time: 14:30 pm1 12/28 14:06 Order name: Labs collected and sent; Complete Time: 14:43 pm1 12/28 14:06 Order name: Urine Dipstick-Ancillary (obtain specimen); Complete Time: 14:43 pm1 12/28 14:42 Order name: Diet Regular; Complete Time: 14:43 em Administered Medications: 15:14 Drug: NS 0.9% 1000 ml Route: IV; Rate: 1000 ml; Site: right antecubital; mc3 16:15 Follow up: Response: No adverse reaction; IV Status: Completed infusion; IV Intake: mc3 1000ml 17:20 Drug: NS 0.9% 1000 ml Route: IV; Rate: 1000 ml; Site: right antecubital; mc3 18:46 Follow up: Rate change ml; IV Status: Completed infusion; IV Intake: 1000ml mc3 22:36 Drug: Ativan 1 mg Route: PO; cr4 23:20 Follow up: Response: No adverse reaction; Anxiety decreased cr4 Disposition: 12/29 19:15 Co-signature as Attending Physician, Ad Alston MD I agree with the assessment and kdr plan of care. Disposition: 12/29/18 01:29 Transfer ordered to Psych Facility. Diagnosis is Suicidal ideations. - Reason for transfer: Higher level of care. - Accepting physician is DR Byrne. - Condition is Stable. - Problem is an ongoing problem. - Symptoms have improved. Signatures: Dispatcher [employer] EDAd Vo MD MD kdr Guanakito Jimenez, DIRECTOR ORGANIZATIONAL DIRECTOR ORGANIZATIONAL em Gillian Pedraza, RN RN cr4 Ole Lassiter PA PA cp Jamal Rodas, TUBING SUPERVISOR TUBING SUPERVISOR pm1 Linn Griffin RN RN mc3 Corrections: (The following items were deleted from the chart) 02:30 01:29 12/29/2018 01:29 Transfer ordered to Psych Facility. Diagnosis is Suicidal cr4 ideations. Reason for transfer: Higher level of care. Accepting physician is DR Byrne. Condition is Stable. Problem is an ongoing problem. Symptoms have improved. cp
[2018-12-29 02:50] VITALS: TEMP 98; O2SAT 97
[2018-12-29 02:51] VITALS: BP 114/65
== END 2018-12-29 02:30 ==
LOC: ER 13:28
DX: R45.851 Suicidal ideations (principal); F41.9 Anxiety disorder, unspecified; F32.9 Major depressive disorder, single episode, unspecified; F31.9 Bipolar disorder, unspecified; F17.210 Nicotine dependence, cigarettes, uncomplicated; Z88.5 Allergy status to narcotic agent; Z88.6 Allergy status to analgesic agent; Z88.8 Allergy status to other drugs, medicaments and biological substances
CPT/HCPCS: 36415; 80048; 80076; 80307; 80320; 80329; 81003; 81025; 85025; 85610; 85730; 93005; 96360; 96361; 99285; J7030

== ENCOUNTER 2019-02-04 08:55 | Emergency (ER) | payer OTHER, SELFPAY ==
--- OUTSIDE RECORDS SUMMARY | 2019-02-04 08:57 | XMS REPORT | Clinical Summary ---
:1985 Author Organization [facility] Address [address] [place] [address] Care Team Providers Name Role Phone Cathy [...] Not on file Results Not on fileafter 02/03/2018 Insurance Payer Benefit Plan / Group Subscriber ID Type Phone Address xxxxxxxxx Other Govt (, [place], [facility], etc.) Advance Directives For more information, please contact:[address] [phone] Code Status Date Activated Date Inactivated Comments Full Code 07/15/2017 10:38 PM 07/16/2017 5:00 PM This code status was determined by: Patient
--- OUTSIDE RECORDS SUMMARY | 2019-02-04 08:58 | XMS REPORT ---
:1985 Author Organization [facility] Address [address] [place] [id number] Care Team Providers Name Role Phone JOYCE FOLEY Unavailable Unavailable Problems This patient has no known problems. Allergies, Adverse Reactions, Alerts This patient has no known allergies or adverse reactions. Medications This patient has no known medications. Encounters Start End Encounter Admission Attending Care Care Encounter Date/Time Date/Time Type Type Clinicians Facility Department ID 2017-04-09 2017-04-09 [facility] [id number] 00:00:00 00:00:00 2017-04-09 2017-04-09 [facility] [id number] 00:00:00 00:00:00 2017-04-08 2017-04-08 [facility] [id number] 22:35:00 22:35:00 2017-04-08 2017-04-08 [facility] [id number] 00:00:00 00:00:00 Results Test Description Test Time Test Comments Text Results Atomic Results Result Comments HEMOGLOBIN A1C 2017-07-16 13:26:00 Test Item Value Reference Range Comments HEMOGLOBIN A1C (BEAKER) (test ajko=646) 5.2 % 4.3-6.1 CBC W/PLT COUNT & AUTO [id number] 09:42:00 Test Item Value Reference Range Comments WHITE BLOOD CELL COUNT (BEAKER) (test hhuz=118) 8.3 K/ L 3.5-10.5 RED BLOOD CELL COUNT (BEAKER) (test gbvx=799) 3.47 M/ L 3.93-5.22 HEMOGLOBIN (BEAKER) (test elth=306) 10.3 GM/DL 11.2-15.7 HEMATOCRIT (BEAKER) (test stpq=827) 32.8 % 34.1-44.9 MEAN CORPUSCULAR VOLUME (BEAKER) (test kwrr=880) 94.5 fL 79.4-94.8 MEAN CORPUSCULAR HEMOGLOBIN (BEAKER) (test 29.7 pg 25.6-32.2 zjjk=765) MEAN CORPUSCULAR HEMOGLOBIN CONC (BEAKER) (test 31.4 GM/DL 32.2-35.5 hbor=885) RED CELL DISTRIBUTION WIDTH (BEAKER) (test 13.1 % 11.7-14.4 imhe=355) PLATELET COUNT (BEAKER) (test cuci=024) 284 K/CU MM 150-450 MEAN PLATELET VOLUME (BEAKER) (test hrpx=077) 9.7 fL 9.4-12.3 NUCLEATED RED BLOOD CELLS (BEAKER) (test 0 /100 WBC 0-0 yshb=755) IMMATURE GRANULOCYTES-RELATIVE PERCENT (BEAKER) 0 % 0-1 (test fvar=9427) (MANUAL DIFFERENTIAL)2017-07-16 09:42:00 Test Item Value Reference Range Comments NEUTROPHILS - REL (DIFF) (BEAKER) (test kuom=4189) 36 % LYMPHOCYTES - REL (DIFF) (BEAKER) (test xoae=1280) 53 % MONOCYTES - REL (DIFF) (BEAKER) (test oucq=3732) 4 % EOSINOPHILS - REL (DIFF) (BEAKER) (test avaz=9215) 2 % BASOPHILS - REL (DIFF) (BEAKER) (test qmxm=9299) 2 % ATYPICAL LYMPHOCYTE - REL (DIFF) (BEAKER) (test 3 % 0-0 jfjc=238) NEUTROPHILS - ABS (DIFF) (BEAKER) (test dpdh=4040) 2.99 K/ L 1.80-8.00 LYMPHOCYTES - ABS (DIFF) (BEAKER) (test opew=3673) 4.40 K/ L 1.48-4.50 MONOCYTES - ABS (DIFF) (BEAKER) (test mfok=6096) 0.33 K/ L 0.00-1.30 EOSINOPHILS - ABS (DIFF) (BEAKER) (test ejcf=0241) 0.17 K/ L 0.00-0.50 BASOPHILS - ABS (DIFF) (BEAKER) (test worr=4260) 0.17 K/ L 0.00-0.20 ATYPICAL LYMPHOCYTES - ABS (DIFF) (BEAKER) (test 0.25 K/ L 0.00-0.00 yanb=586) TOTAL COUNTED (BEAKER) (test amtk=0654) 100 WBC MORPHOLOGY (BEAKER) (test jubh=200) Normal PLT MORPHOLOGY (BEAKER) (test emxo=675) Normal RBC MORPHOLOGY (BEAKER) (test omce=453) Normal [id number] 07:11:00 Test Item Value Reference Range Comments MAGNESIUM (BEAKER) (test toue=690) 1.5 mg/dL 1.6-2.6 BASIC METABOLIC [id number] 07:11:00 Test Item Value Reference Range Comments SODIUM (BEAKER) (test 140 meq/L 136-145 fjqf=438) POTASSIUM (BEAKER) (test 3.6 meq/L 3.5-5.1 ctfp=207) CHLORIDE (BEAKER) (test 119 meq/L 98-107 afkt=734) CO2 (BEAKER) (test 16 meq/L 22-29 tnmn=705) BLOOD UREA NITROGEN 7 mg/dL 7-21 (BEAKER) (test lebf=935) CREATININE (BEAKER) (test 0.59 mg/dL 0.57-1.25 lvxg=326) GLUCOSE RANDOM (BEAKER) 89 mg/dL 70-105 (test ufrk=383) CALCIUM (BEAKER) (test 8.3 mg/dL 8.4-10.2 ivcj=917) EGFR (BEAKER) (test 118 mL/min/1.73 sq m ESTIMATED GFR IS NOT ipys=6373) ACCURATE CREATININE CLEARANCE IN PREDICTING GLOMERULAR FILTRATION RATE. ESTIMATED GFR IS NOT APPLICABLE FOR DIALYSIS PATIENTS. LIPID [id number] 07:11:00 Test Item Value Reference Range Comments TRIGLYCERIDES (BEAKER) (test imlk=049) 75 mg/dL CHOLESTEROL (BEAKER) (test bxck=492) 173 mg/dL HDL CHOLESTEROL (BEAKER) (test yiml=082) 33 mg/dL LDL CHOLESTEROL CALCULATED (BEAKER) (test 125 mg/dL fnea=447) Triglyceride Reference Range: Low Risk <150 Borderline 150- 199 High Risk 200-499 Very High Risk >=500Cholesterol Reference Range: Low Risk <200 Borderline 200-239 High Risk > 240HDL Cholesterol Reference Range: Low Risk >=60 High Risk <40LDL Cholesterol Reference Range: Optimal <100 Near Optimal 100-129 Borderline 130-159 High 160-189 Very High >=190TROPONIN [id number] 06:34:00 Test Item Value Reference Range Comments TROPONIN I (BEAKER) (test xsuu=236) < ng/mL 0.00-0.03 Troponin I (TnI) levels [...] acidosis, acute neurological disease, and persistent tachyarrhythmia.TROPONIN [id number] 23:58:00 Test Item Value Reference Range Comments TROPONIN I (BEPETER) (test oyls=931) < ng/mL 0.00-0.03 Troponin I (TnI) levels [...]
[2019-02-04] MEDS ORDERED: MEPERIDINE HCL 25 MG/0.5 ML ONE (10:04)
[2019-02-04 10:13] LABS: Absolute Lymphocytes (CBC) 3.6 K/uL (0.7-4.9); Basophils % 0.8 % (0-1.3); Eosinophils % 1.9 % (0-4.4); Hematocrit 41.1 % (36.0-45.0); Lymphocytes % 37.3 % (15.3-44.8); MPV 8.2 fL (7.6-11.3); Monocytes % 6.6 % (3.3-12.3); RBC Red Blood Cell Count 4.53 M/uL (3.86-4.86)
[2019-02-04 10:30] LABS: ALT/SGPT 21 U/L (12-78); AST/SGOT 12 U/L (15-37); Albumin 3.9 g/dL (3.4-5.0); Alkaline Phosphatase 75 U/L (45-117); BUN Blood Urea Nitrogen 9 mg/dL (7-18); Bicarbonate 27 mmol/L (21-32); Bilirubin Direct < 0.1 mg/dL (0-0.2); Bilirubin Total 0.2 mg/dL (0.2-1.0); Glucose Level 80 mg/dL (74-106); Lipase 164 U/L (73-393); Potassium 4.3 mmol/L (3.5-5.1); Protein, Total 7.4 g/dL (6.4-8.2); Sodium Level 141 mmol/L (136-145)
[2019-02-04 10:32] LABS: Urine Blood NEGATIVE (NEG); Urine Glucose NEGATIVE (NEG); Urine Protein NEGATIVE (NEG); Urine pH 6.5 (5.0-7.0)
--- NOTE | 2019-02-04 10:32 | RAD REPORT ---
EXAM DESCRIPTION: CT - Stone Protocol - 02/04/2019 9:52 am CLINICAL HISTORY: Flank pain. ABD PAIN COMPARISON: Abdomen Pelvis W Contrast dated 08/12/2018 TECHNIQUE: Axial images were obtained without oral or IV contrast. Lack of contrast limits solid org an and vascular assessment. The mjmqf-fe-yohb spans the entirety of the system partially obscuring uppermost abdomen and lung bases. Coronal reformatted images were obtained and reviewed. All CT scans are performed using dose optimization technique as appropriate and may include automated exposure control or mA/KV adjustment according to patient size. FINDINGS: The lower lung hogan are clear. Imaged portions of the liver and spleen show no suspicious findings on non-contrast imaging. The panc reas and adrenal glands are normal. No pathologic lymphadenopathy in the abdomen or pelvis. No urinary tract stones or obstructive uropathy. No bowel obstruction, free air, free fluid or abscess. Normal appendix noted. No significant bony abnormality. IMPRESSION: No urinary tract stones or obstructive uropathy.
--- NOTE | 2019-02-04 11:24 | EDPHYS ---
Physician Documentation [facility] Name: Natasha Spann Age: 33 yrs Sex: Female : 1985 Arrival Date: 02/04/2019 Time: 08:57 Bed 4 Private MD: ED Physician Gregor Santo HPI: 02/04 11:17 This 33 yrs old Female presents to ER via Ambulatory with complaints of rn Pelvic Pain, Leg Pain. 11:17 The patient presents with abdominal pain in the lower abdomen. Onset: The rn symptoms/episode began/occurred 1 week(s) ago. The symptoms radiate to back. The symptoms are described as crampy, intermittent. Modifying factors: The symptoms are alleviated by nothing, the symptoms are aggravated by nothing. Severity of pain: At its worst the pain was moderate in the emergency department the pain is unchanged. The patient has not experienced similar symptoms in the past. 11:17 Reports lower abd cramping and pressure, no urinary symptoms, no fever, no trauma, also rn has nerve pain shoot down right leg. . 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/2019 bp Historical: - Allergies: 09:21 bupropion HCl; ch 09:21 Levofloxacin; ch 09:21 Wellbutrin; ch - Home Meds: 09:21 aripiprazole 15 mg Oral tab 1 tab nightly [Active]; propranolol 20 mg Oral tab 1 tab 2 ch times per day [Active]; trazodone 150 mg Oral tab 1 tab night prn [Active]; hydroxyzine HCl 25 mg Oral tab 4 times per day [Active]; duloxetine 30 mg Oral cpDR 1 cap once daily [Active]; - PMHx: 09:21 ADD/ADHD; Anxiety; Bipolar disorder; Depression; Endometrosis; Gastric Reflux; MRSA; ch osteomylitis; Ovarian cyst; 09:23 UTI; ch - PSHx: 09:21 below the knee amputation L side; Tonsillectomy; ch - Immunization history:: Adult Immunizations up to date. - Social history:: Smoking status: Patient uses tobacco products, smokes one pack cigarettes per day. - Ebola Screening: : No symptoms or risks identified at this time. - Family history:: not pertinent. - Hospitalizations: : No recent hospitalization is reported. ROS: 11:17 Constitutional: Negative for fever, chills, and weight loss, Cardiovascular: Negative rn for chest pain, palpitations, and edema, Respiratory: Negative for shortness of breath, cough, wheezing, and pleuritic chest pain, Abdomen/GI: Negative for nausea, vomiting, diarrhea, and constipation, Back: Negative for injury MS/Extremity: Negative for injury and deformity, Skin: Negative for injury, rash, and discoloration, Neuro: Negative for headache, weakness, numbness, tingling, and seizure. Exam: 11:17 Constitutional: This is a well developed, well nourished patient who is awake, alert, rn walking to bathroom without difficulty Head/Face: Normocephalic, atraumatic. Respiratory: No increased work of breathing, no retractions or nasal flaring. Abdomen/GI: soft, + mild suprapubic tenderness, no rebound, no peritoneal signs Back: No spinal tenderness. No costovertebral tenderness. Full range of motion. Skin: Warm, dry with normal turgor. Normal color with no rashes, no lesions, and no evidence of cellulitis. MS/ Extremity: Pulses equal, no cyanosis. Neurovascular intact. Full, normal range of motion. Equal circumference. Neuro: Awake and alert, GCS 15, oriented to person, place, time, and situation. Cranial nerves II-XII grossly intact. Motor strength 5/5 in all extremities. Sensory grossly intact. Cerebellar exam normal. Normal gait. Vital Signs: 09:04 BP 128 / 81; Pulse 80; Resp 18; Temp 97.6; Pulse Ox 99% ; Weight 90.72 kg; Height 5 ft. bp 8 in. (172.72 cm); 10:09 BP 114 / 68; Pulse 71; Resp 19; Temp 98.3; Pulse Ox 99% on R/A; Pain 7/10; ch 11:14 BP 107 / 73; Pulse 62; Resp 17; Pulse Ox 98% on R/A; tw2 09:04 Body Mass Index 30.41 (90.72 kg, 172.72 cm) bp MDM: 09:28 Patient medically screened. rn 11:17 Differential diagnosis: appendicitis, diverticulitis, Ectopic , rn gastroesophageal reflux disease, non-specific abd pain, pancreatitis, Ureterolithiasis, urinary tract infection, endometriosis, gas pain, non-specific abd pain. Data reviewed: vital signs, nurses notes, lab test result(s), radiologic studies, CT scan, and as a result, I will discharge patient. Counseling: I had a detailed discussion with the patient and/or guardian regarding: the historical points, exam findings, and any diagnostic results supporting the discharge/admit diagnosis, lab results, radiology results, the need for outpatient follow up, to return to the emergency department if symptoms worsen or persist or if there are any questions or concerns that arise at home. Response to treatment: the patient's symptoms have mildly improved after treatment, and as a result, I will discharge patient. ED course: No acute findings on ct abdomen, labs unremarkable. . 02/04 09:31 Order name: Urine Dipstick--Ancillary (enter results); Complete Time: 10:37 bd 02/04 09:31 Order name: Urine --Ancillary (enter results); Complete Time: 10:37 bd 02/04 09:32 Order name: Basic Metabolic Panel; Complete Time: 10:37 rn 02/04 09:32 Order name: CBC with Diff; Complete Time: 10:37 rn 02/04 09:32 Order name: Hepatic Function; Complete Time: 10:37 rn 02/04 09:32 Order name: Lipase; Complete Time: 10:37 rn 02/04 09:32 Order name: IV Saline Lock; Complete Time: 10:12 rn 02/04 09:32 Order name: Labs collected and sent; Complete Time: 10:12 rn 02/04 09:32 Order name: CT Stone Protocol; Complete Time: 10:37 rn Administered Medications: 10:10 Drug: Demerol 25 mg Route: IVP; Site: right upper arm; 11:30 Follow up: Response: No adverse reaction; Pain is decreased tw2 11:25 Drug: TORadol - Ketorolac 15 mg Route: IVP; Site: right upper arm; ch 11:30 Follow up: Response: No adverse reaction; Pain is decreased tw2 Disposition: 02/04/19 11:22 Discharged to Home. Impression: Lower abdominal pain, unspecified. - Condition is Stable. - Discharge Instructions: Abdominal Pain, Adult, Pain Without a Known Cause. - Prescriptions for Tylenol- Codeine #3 300-30 mg Oral Tablet - take 1 tablet by ORAL route every 6 hours As needed; 15 tablet. Diclofenac Sodium 75 mg Oral Tablet, Delayed Release (E.C.) - take 1 tablet by ORAL route 2 times per day; 15 tablet. - Medication Reconciliation Form, Thank You Letter, Antibiotic Education, Prescription Opioid Use form. - Follow up: Private Physician; When: As needed; Reason: Recheck today's complaints, Re-evaluation by your physician. - Problem is new. - Symptoms have improved. Signatures: Dispatcher [employer] EDMS Lyly Contreras RN RN Gregor Santo MD MD rn Wise, Tara, RN RN tw2 Sabas Michael RN RN bp Corrections: (The following items were deleted from the chart) 11:31 11:22 02/04/2019 11:22 Discharged to Home. Impression: Lower abdominal pain, tw2 unspecified. Condition is Stable. Forms are Medication Reconciliation Form, Thank You Letter, Antibiotic Education, Prescription Opioid Use. Follow up: Private Physician; When: As needed; Reason: Recheck today's complaints, Re-evaluation by your physician. Problem is new. Symptoms have improved. rn
--- NOTE | 2019-02-04 11:24 | ER ---
Nurse's Notes [facility] Name: Natasha Spann Age: 33 yrs Sex: Female : 1985 Arrival Date: 02/04/2019 Time: 08:57 Bed 4 Private MD: Diagnosis: Lower abdominal pain, unspecified Presentation: 02/04 09:04 Presenting complaint: Patient states: R HIP PAIN x1.5 WK, SCIATICA PATTERN. Transition bp of care: patient was not received from another setting of care. Onset of symptoms is unknown. Risk Assessment: Do you want to hurt yourself or someone else? Patient reports no desire to harm self or others. Initial Sepsis Screen: Does the patient meet any 2 criteria? No. Patient's initial sepsis screen is negative. Does the patient have a suspected source of infection? No. Patient's initial sepsis screen is negative. Care prior to arrival: None. 09:04 Method Of Arrival: Ambulatory bp 09:04 Acuity: EMILY 3 bp Triage Assessment: 09:04 General: Appears in no apparent distress. uncomfortable, Behavior is cooperative, bp appropriate for age, anxious. Pain: Complains of pain in pelvis. 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 bp Historical: - Allergies: 09:21 bupropion HCl; ch 09:21 Levofloxacin; ch 09:21 Wellbutrin; ch - Home Meds: 09:21 aripiprazole 15 mg Oral tab 1 tab nightly [Active]; propranolol 20 mg Oral tab 1 tab 2 ch times per day [Active]; trazodone 150 mg Oral tab 1 tab night prn [Active]; hydroxyzine HCl 25 mg Oral tab 4 times per day [Active]; duloxetine 30 mg Oral cpDR 1 cap once daily [Active]; - PMHx: 09:21 ADD/ADHD; Anxiety; Bipolar disorder; Depression; Endometrosis; Gastric Reflux; MRSA; ch osteomylitis; Ovarian cyst; 09:23 UTI; ch - PSHx: 09:21 below the knee amputation L side; Tonsillectomy; ch - Immunization history:: Adult Immunizations up to date. - Social history:: Smoking status: Patient uses tobacco products, smokes one pack cigarettes per day. - Ebola Screening: : No symptoms or risks identified at this time. - Family history:: not pertinent. - Hospitalizations: : No recent hospitalization is reported. Screenin:21 Abuse screen: Denies threats or abuse. Denies injuries from another. Nutritional ch screening: No deficits noted. Tuberculosis screening: No symptoms or risk factors identified. Fall Risk None identified. Assessment: 09:18 General: Appears in no apparent distress. uncomfortable, Behavior is calm, cooperative, ch appropriate for age. Pain: Complains of pain in pelvis and right leg Pain currently is 7 out of 10 on a pain scale. Pain began gradually, one week ago, last night worses. Neuro: No deficits noted. Respiratory: Airway is patent Respiratory effort is even, unlabored, Breath sounds are clear bilaterally. GI: Abdomen is round non-distended, Bowel sounds present X 4 quads. Abd is soft X 4 quads Abdomen is tender to palpation in suprapubic area. Derm: Skin is pink, warm \T\ dry. 10:09 Reassessment: Patient appears in no apparent distress at this time. Patient and/or family updated on plan of care and expected duration. Pain level reassessed. Patient is alert, oriented x 3, equal unlabored respirations, skin warm/dry/pink. 11:14 Reassessment: Patient appears in no apparent distress at this time. Patient and/or tw2 family updated on plan of care and expected duration. Pain level reassessed. Patient is alert, oriented x 3, equal unlabored respirations, skin warm/dry/pink. 11:24 Reassessment: Patient appears in no apparent distress at this time. No changes from previously documented assessment. Patient and/or family updated on plan of care and expected duration. Pain level reassessed. Patient is alert, oriented x 3, equal unlabored respirations, skin warm/dry/pink. pt states she still hurts, pt medicated per orders. Vital Signs: 09:04 BP 128 / 81; Pulse 80; Resp 18; Temp 97.6; Pulse Ox 99% ; Weight 90.72 kg; Height 5 ft. bp 8 in. (172.72 cm); 10:09 BP 114 / 68; Pulse 71; Resp 19; Temp 98.3; Pulse Ox 99% on R/A; Pain 7/10; ch 11:14 BP 107 / 73; Pulse 62; Resp 17; Pulse Ox 98% on R/A; tw2 09:04 Body Mass Index 30.41 (90.72 kg, 172.72 cm) bp ED Course: 08:57 Patient arrived in ED. rg4 09:04 Triage completed. bp 09:04 Arm band placed on. bp 09:17 Lyly Contreras, RN is Primary Nurse. ch 09:21 No apparent distress. Resting quietly. ch 09:21 Patient has correct armband on for positive identification. Placed in gown. Bed in low ch position. Call light in reach. Side rails up X 1. Adult w/ patient. Pulse ox on. Warm blanket given. 09:21 No provider procedures requiring assistance completed. ch 09:28 Gregor Santo MD is Attending Physician. rn 09:48 CT completed. Patient tolerated procedure well. Patient moved to [place] via wheelchair. jg6 Patient moved back from [place]. 09:50 Initial lab(s) drawn, by id, sent to lab. Urine collected: clean catch specimen, clear. Inserted saline lock: 20 gauge in right upper arm, using aseptic technique. Blood collected. 09:52 CT Stone Protocol In Process Unspecified. EDMS 10:10 No apparent distress. Resting quietly. ch 11:31 IV discontinued, intact, bleeding controlled, No redness/swelling at site. Pressure tw2 dressing applied. Administered Medications: 10:10 Drug: Demerol 25 mg Route: IVP; Site: right upper arm; 11:30 Follow up: Response: No adverse reaction; Pain is decreased tw2 11:25 Drug: TORadol - Ketorolac 15 mg Route: IVP; Site: right upper arm; 11:30 Follow up: Response: No adverse reaction; Pain is decreased tw2 Outcome: 11:22 Discharge ordered by . rn 11:30 Discharged to home ambulatory. tw2 11:30 Condition: stable 11:30 Discharge instructions given to patient, Instructed on discharge instructions, follow up and referral plans. the need for transfer, no drinking with medication, no driving heavy equipment, Demonstrated understanding of instructions, follow-up care, medications, Prescriptions given X 2. 11:31 Patient left the ED. tw2 Signatures: Dispatcher [employer] EDMS Lyly Contreras, JONY BORGES Gregor Santo MD MD rn Wise, Tara, RN RN tw2 Giuliana Wilcox rg4 Fernanda, Sabas, RN RN bp Brenden, Cathy jg6
[2019-02-04] MEDS ORDERED: KETOROLAC 30 MG/ML INJ ONE (11:36)
[2019-02-04 11:46] VITALS: TEMP 98.3
[2019-02-04 11:47] VITALS: BP 107/73; O2SAT 98
== END 2019-02-04 11:31 | disposition home or self-care (01) ==
LOC: ER 08:55
DX: R10.30 Lower abdominal pain, unspecified (principal); F17.210 Nicotine dependence, cigarettes, uncomplicated; F41.9 Anxiety disorder, unspecified; F31.9 Bipolar disorder, unspecified; F32.9 Major depressive disorder, single episode, unspecified; F90.9 Attention-deficit hyperactivity disorder, unspecified type; Z88.5 Allergy status to narcotic agent; Z88.8 Allergy status to other drugs, medicaments and biological substances
CPT/HCPCS: 36415; 74176; 76377; 80048; 80076; 81003; 81025; 83690; 85025; 96374; 96375; 99284; J2175

== ENCOUNTER 2019-03-30 10:19 | Emergency (ER) | payer SELFPAY ==
--- OUTSIDE RECORDS SUMMARY | 2019-03-30 10:21 | XMS REPORT | Clinical Summary ---
:1985 Author Organization [facility] Address [address] [place] [address] Care Team Providers Name Role Phone Kit [...] Health Maintenance Due Date Last Done Comments INFLUENZA VACCINE 03/21/2019 Results Not on fileafter 03/29/2018 Advance Directives Patient has advance care planning documents on file. For more information, please contact:[facility] [place] [address]
--- OUTSIDE RECORDS SUMMARY | 2019-03-30 10:21 | XMS REPORT | Clinical Summary ---
:1985 Author Organization [facility] Address [address] [place] [address] Care Team Providers Name Role Phone Cathy [...] Not on file Results Not on fileafter 03/29/2018 Insurance Payer Benefit Plan / Group Subscriber ID Type Phone Address xxxxxxxxx Other Govt (, [place], [facility], etc.) Advance Directives For more information, please contact:[address] [phone] Code Status Date Activated Date Inactivated Comments Full Code 07/15/2017 10:38 PM 07/16/2017 5:00 PM This code status was determined by: Patient
--- OUTSIDE RECORDS SUMMARY | 2019-03-30 10:22 | XMS REPORT ---
:1985 Author Organization [facility] Address [address] [place] [address] Care Team Providers Name Role Phone JOYCE FOLEY Unavailable Unavailable Problems This patient has no known problems. Allergies, Adverse Reactions, Alerts This patient has no known allergies or adverse reactions. Medications This patient has no known medications. Encounters Start End Encounter Admission Attending Care Care Encounter Date/Time Date/Time Type Type Clinicians Facility Department ID 2017-04-09 2017-04-09 [facility] [id number] 00:00:00 00:00:00 2017-04-09 2017-04-09 [facility] [id number] 00:00:00 00:00:00 2017-04-08 2017-04-08 [facility] [id number] 22:35:00 22:35:00 2017-04-08 2017-04-08 [facility] [id number] 00:00:00 00:00:00 Results Test Description Test Time Test Comments Text Results Atomic Results Result Comments HEMOGLOBIN A1C 2017-07-16 13:26:00 Test Item Value Reference Range Comments HEMOGLOBIN A1C (BEAKER) (test ovbv=465) 5.2 % 4.3-6.1 CBC W/PLT COUNT & AUTO [id number] 09:42:00 Test Item Value Reference Range Comments WHITE BLOOD CELL COUNT (BEAKER) (test hgbd=958) 8.3 K/ L 3.5-10.5 RED BLOOD CELL COUNT (BEAKER) (test bhud=567) 3.47 M/ L 3.93-5.22 HEMOGLOBIN (BEAKER) (test zott=717) 10.3 GM/DL 11.2-15.7 HEMATOCRIT (BEAKER) (test nxsm=229) 32.8 % 34.1-44.9 MEAN CORPUSCULAR VOLUME (BEAKER) (test tjyp=163) 94.5 fL 79.4-94.8 MEAN CORPUSCULAR HEMOGLOBIN (BEAKER) (test 29.7 pg 25.6-32.2 tmyi=752) MEAN CORPUSCULAR HEMOGLOBIN CONC (BEAKER) (test 31.4 GM/DL 32.2-35.5 ylwq=979) RED CELL DISTRIBUTION WIDTH (BEAKER) (test 13.1 % 11.7-14.4 ygzg=542) PLATELET COUNT (BEAKER) (test gjpu=243) 284 K/CU MM 150-450 MEAN PLATELET VOLUME (BEAKER) (test hgnx=489) 9.7 fL 9.4-12.3 NUCLEATED RED BLOOD CELLS (BEAKER) (test 0 /100 WBC 0-0 pwie=174) IMMATURE GRANULOCYTES-RELATIVE PERCENT (BEAKER) 0 % 0-1 (test uoyq=2960) (MANUAL DIFFERENTIAL)2017-07-16 09:42:00 Test Item Value Reference Range Comments NEUTROPHILS - REL (DIFF) (BEAKER) (test aros=5942) 36 % LYMPHOCYTES - REL (DIFF) (BEAKER) (test ihha=1897) 53 % MONOCYTES - REL (DIFF) (BEAKER) (test tdwh=5413) 4 % EOSINOPHILS - REL (DIFF) (BEAKER) (test dvmw=8047) 2 % BASOPHILS - REL (DIFF) (BEAKER) (test ucps=4696) 2 % ATYPICAL LYMPHOCYTE - REL (DIFF) (BEAKER) (test 3 % 0-0 flkv=550) NEUTROPHILS - ABS (DIFF) (BEAKER) (test btmt=2022) 2.99 K/ L 1.80-8.00 LYMPHOCYTES - ABS (DIFF) (BEAKER) (test spia=0304) 4.40 K/ L 1.48-4.50 MONOCYTES - ABS (DIFF) (BEAKER) (test tdkx=4924) 0.33 K/ L 0.00-1.30 EOSINOPHILS - ABS (DIFF) (BEAKER) (test lemq=2704) 0.17 K/ L 0.00-0.50 BASOPHILS - ABS (DIFF) (BEAKER) (test zrvm=0347) 0.17 K/ L 0.00-0.20 ATYPICAL LYMPHOCYTES - ABS (DIFF) (BEAKER) (test 0.25 K/ L 0.00-0.00 xpws=885) TOTAL COUNTED (BEAKER) (test mrro=3410) 100 WBC MORPHOLOGY (BEAKER) (test ceti=560) Normal PLT MORPHOLOGY (BEAKER) (test xkei=813) Normal RBC MORPHOLOGY (BEAKER) (test ftcf=353) Normal [id number] 07:11:00 Test Item Value Reference Range Comments MAGNESIUM (BEAKER) (test nbqp=260) 1.5 mg/dL 1.6-2.6 BASIC METABOLIC [id number] 07:11:00 Test Item Value Reference Range Comments SODIUM (BEAKER) (test 140 meq/L 136-145 odyg=448) POTASSIUM (BEAKER) (test 3.6 meq/L 3.5-5.1 kaxn=341) CHLORIDE (BEAKER) (test 119 meq/L 98-107 wvgm=827) CO2 (BEAKER) (test 16 meq/L 22-29 ylux=631) BLOOD UREA NITROGEN 7 mg/dL 7-21 (BEAKER) (test thjv=868) CREATININE (BEAKER) (test 0.59 mg/dL 0.57-1.25 ftzg=535) GLUCOSE RANDOM (BEAKER) 89 mg/dL 70-105 (test byji=158) CALCIUM (BEAKER) (test 8.3 mg/dL 8.4-10.2 aeah=725) EGFR (BEAKER) (test 118 mL/min/1.73 sq m ESTIMATED GFR IS NOT zqlf=6573) ACCURATE CREATININE CLEARANCE IN PREDICTING GLOMERULAR FILTRATION RATE. ESTIMATED GFR IS NOT APPLICABLE FOR DIALYSIS PATIENTS. LIPID [id number] 07:11:00 Test Item Value Reference Range Comments TRIGLYCERIDES (BEAKER) (test feka=280) 75 mg/dL CHOLESTEROL (BEAKER) (test agka=160) 173 mg/dL HDL CHOLESTEROL (BEAKER) (test uysp=932) 33 mg/dL LDL CHOLESTEROL CALCULATED (BEAKER) (test 125 mg/dL byfv=812) Triglyceride Reference Range: Low Risk <150 Borderline 150- 199 High Risk 200-499 Very High Risk >=500Cholesterol Reference Range: Low Risk <200 Borderline 200-239 High Risk > 240HDL Cholesterol Reference Range: Low Risk >=60 High Risk <40LDL Cholesterol Reference Range: Optimal <100 Near Optimal 100-129 Borderline 130-159 High 160-189 Very High >=190TROPONIN [id number] 06:34:00 Test Item Value Reference Range Comments TROPONIN I (BEAKER) (test tifn=713) < ng/mL 0.00-0.03 Troponin I (TnI) levels [...] acidosis, acute neurological disease, and persistent tachyarrhythmia.TROPONIN [id number] 23:58:00 Test Item Value Reference Range Comments TROPONIN I (BEPETER) (test wqts=267) < ng/mL 0.00-0.03 Troponin I (TnI) levels [...]
--- OUTSIDE RECORDS SUMMARY | 2019-03-30 10:22 | XMS REPORT | Summary of Care ---
:1985 Author Organization [facility] Address [address] [place] [address] Care Team Providers Name Role Phone Lina Martínez MD Primary Care Provider Reason for Visit Reason Comments Hip Pain right Auth/Cert Status Reason Specialty Diagnoses / Referred By Referred To Procedures Contact Contact [facility] [address] [place] [address] Encounter Details Date Type Department Care Team Description 03/18/2019 Emergency [facility] Vonda Aguila, Sciatica of right side (Primary Dx); Department PAC Pain of right hip joint [address] [place] [address] [address] [place] [address] [facility] [address] [place] [address] Allergies Active Allergy Reactions Severity Noted Date Comments Levofloxacin Other - See comments 05/29/2016 Gets severe joint pains. Bupropion Other - See comments 05/29/2016 Makes patient feel "crazy" documented as of this encounter (statuses as of 03/18/2019) Medications Medication Sig Dispensed Refills Start End Date Status Date TRAZODONE HCL Take by mouth. 0 Active (TRAZODONE ORAL) TOPIRAMATE (TOPAMAX Take by mouth. 0 Active ORAL) PROPRANOLOL HCL Take by mouth. 0 Active (PROPRANOLOL ORAL) HYDROXYZINE HCL ORAL Take by mouth. 0 Active DULOXETINE HCL Take by mouth. 0 Active (CYMBALTA ORAL) ARIPIPRAZOLE Take by mouth. 0 Active (ABILIFY ORAL) Butalbital-Acetamino Take 1 capsule 20 capsule 0 Active phen-Caff (FIORICET) by mouth every 6 7 50-300-40 mg per (six) hours as capsule needed for Pain (scale 4-6). FLUOXETINE HCL Take by mouth. 0 Active (PROZAC ORAL) metroNIDAZOLE 500 mg Take 1 tablet by 14 tablet 0 Active tablet mouth 2 (two) 7 times daily. ondansetron (ZOFRAN Take 1 tablet by 10 tablet 0 Active ODT) 4 mg mouth every 8 8 disintegrating (eight) hours as tablet needed for Nausea and Vomiting (N/V). promethazine-codeine Take 5 mL by 120 mL 0 Active 6.25-10 mg/5 mL mouth 4 (four) 8 syrup times daily as needed for Cough. sod Use 1 Bottle in 1 Each 0 Active fxtey-xmjnnw-iuyafw each nostril 2 8 bottle (NEILMED (two) times SINUS RINSE daily. Use in COMPLETE) pkdv hot shower 1 hour before bedtime meclizine 25 mg Take 1 tablet by 90 tablet 1 Active tabletIndications: mouth 3 (three) 8 Vertigo times daily as needed for Dizziness. acetaminophen-codein Take 1-2 tablets 30 tablet 0 Active e 300-30 mg by mouth every 6 8 tabletIndications: (six) hours as Menorrhagia with needed for Pain irregular cycle, (scale 4-6) or Lower abdominal Pain (scale pain, Unprotected 7-10) (for sexual intercourse breakthrough pain). phenazopyridine 200 Take 1 tablet by 9 tablet 0 Active mg tablet mouth 3 (three) 8 times daily. ondansetron (ZOFRAN Take 1 tablet by 20 tablet 0 Active ODT) 4 mg mouth every 8 8 disintegrating (eight) hours as tablet needed for Nausea and Vomiting (N/V). metoclopramide HCl 1 tab every 4hr 60 tablet 1 Active 10 mg as needed for 8 tabletIndications: nausea Migraine without status migrainosus, not intractable, unspecified migraine type naproxen sodium Take 1 tablet by 30 tablet 0 Active (ANAPROX DS) 550 mg mouth 2 (two) 8 tablet times daily with meals. pantoprazole Take 1 tablet by 180 tablet 3 Active (PROTONIX) 40 mg EC mouth 2 (two) 8 tabletIndications: times daily. Chronic abdominal pain, Abdominal bloating fluticasone 50 Use 2 Sprays in 16 g 2 Active mcg/actuation nasal each nostril 8 sprayIndications: daily. Ear fullness, left sulfamethoxazole-tri Take 1 tablet by 14 tablet 0 Active methoprim 800-160 mg mouth every 12 9 per (twelve) hours. tabletIndications: Hidradenitis suppurativa of left axilla acetaminophen-codein Take 1 tablet by 20 tablet 0 Active e (TYLENOL-CODEINE mouth every 4 9 #3) 300-30 mg (four) hours as tabletIndications: needed for Pain Stump pain (scale 7-10). cephALEXin (KEFLEX) Take 1 capsule 28 capsule 0 Active 250 mg by mouth every 6 9 capsuleIndications: (six) hours. Stump pain Miscellaneous LOWR EXTREMITY 1 Each 3 Active [employer] PROSTHES NOS, 9 MiscIndications: Hx Left bka, needs of BKA, left new prosthesis and supplies ibuprofen 600 mg Take 1 tablet by 30 tablet 0 Active tabletIndications: mouth every 6 9 Sciatica of right (six) hours as side needed for Pain (scale 4-6). ibuprofen 600 mg Take 1 tablet by 30 tablet 0 03/18/20 Discontinued tabletIndications: mouth every 6 9 19 Strain of right (six) hours as knee, initial needed for Pain encounter (scale 4-6). documented as of this encounter (statuses as of 03/18/2019) Active Problems Problem Noted Date Migraine without status migrainosus, not intractable, unspecified migraine type Gastroesophageal reflux disease, esophagitis presence not specified 01/12/2018 documented as of this encounter (statuses as of 03/18/2019) Social History Tobacco Use Types Packs/Day Years Used Date Current Every Day Smoker Cigarettes 1.5 Started: 02/15/1992 Smokeless Tobacco: Never Used Alcohol Use Drinks/Week oz/Week Comments No 0 Standard drinks or equivalent 0.0 Sex Assigned at Date Recorded Not on file Job Start Date Occupation Industry Not on file Not on file Not on file Travel History Travel Start Travel End No recent travel history available. documented as of this encounter Last Filed Vital Signs Vital Sign Reading Time Taken Comments Blood Pressure 122/78 03/18/2019 11:00 PM CDT Pulse 68 03/18/2019 11:00 PM CDT Temperature 36.7 C (98 F) 03/18/2019 10:28 PM CDT Respiratory Rate 18 03/18/2019 11:00 PM CDT Oxygen Saturation 97% 03/18/2019 11:00 PM CDT Inhaled Oxygen Concentration - - Weight 90.7 kg (200 lb) 03/18/2019 10:28 PM CDT Height - - Body Mass Index 30.41 12/14/2018 1:28 PM CDT documented in this encounter Discharge Instructions AttachmentsThe following attachments cannot be sent through Care Everywhere.Sciatica (Tajik)documented in this encounter Plan of Treatment Health Maintenance Due Date Last Done Comments PNEUMOCOCCAL 0-64 YEARS COMBINED SERIES (1 of 1 - 1991 PPSV23) VARICELLA VACCINES (1 of 2 - 13+ 2-dose series) 1998 DTaP,Tdap,and Td Vaccines (1 - Tdap) 2004 PAP SMEAR 2006 INFLUENZA VACCINE 04/21/2019 documented as of this encounter Procedures Procedure Name Priority Date/Time Associated Diagnosis Comments POCT TEST PUSHPA 03/18/2019 11:24 PM Pain of right hip Results for this CDT joint procedure are in the results section. NOTICE OF PRIVACY Routine 03/18/2019 10:19 PM PRACTICES CDT CONSENT/REFUSAL FOR Routine 03/18/2019 10:19 PM DIAGNOSIS AND CDT TREATMENT documented in this encounter Results POCT TEST (03/18/2019 11:24 PM CDT) POCT PREG negative On board controls acceptable yes with C Line POCT PREG LOT # [id number] POCT PREG TEST DATE 08/20/2020 Specimen Urine - URINE, CLEAN CATCH documented in this encounter Visit Diagnoses Diagnosis Sciatica of right side - Primary Sciatica Pain of right hip joint documented in this encounter Administered Medications Medication Order MAR Action Action Date Dose Rate Site ketorolac (TORADOL) Given 03/18/2019 11:35 PM 60 mg Right injection 60 mg CDT Dorsogluteal-IM 60 mg, Intramuscular, ONCE, 1 dose, Tu03/19/19 at 0045, PUSHPA, air crew member approving Restricted medication: Vonda AGUILA documented in this encounter Advance Directives Name Relationship Healthcare Agent Communication Relationship Katharina Abraham Mother Primary healthcare agent
[2019-03-30 11:32] LABS: Urine Blood 2+ (NEG); Urine Glucose NEGATIVE (NEG); Urine Protein NEGATIVE (NEG); Urine Specific Gravity 1.015 (1.005-1.030)
--- NOTE | 2019-03-30 12:06 | RAD REPORT ---
EXAM DESCRIPTION: CT - Head Brain Wo Cont - 03/30/2019 12:00 pm CLINICAL HISTORY: DIZZINESS Headache, drowsiness COMPARISON: Head Brain Wo Cont dated 11/02/2017 TECHNIQUE: All CT scans are performed using dose optimization technique as appropriate and may inclu de automated exposure control or mA/KV adjustment according to patient size. FINDINGS: No intracranial hemorrhage, hydrocephalus or extra-axial fluid collection.No areas of brai n edema or evidence of midline shift. The paranasal sinuses and mastoids are clear. The calvarium is intact. IMPRESSION: No acute intracranial abnormality.
[2019-03-30] MEDS ORDERED: MECLIZINE HCL 12.5 MG TAB ONE (12:39)
[2019-03-30 13:10] LABS: Absolute Lymphocytes (CBC) 3.5 K/uL (0.7-4.9); Basophils % 0.7 % (0-1.3); Lymphocytes % 34.7 % (15.3-44.8); MPV 7.9 fL (7.6-11.3); RBC Red Blood Cell Count 4.15 M/uL (3.86-4.86)
[2019-03-30 13:27] LABS: ALT/SGPT 22 U/L (12-78); AST/SGOT 17 U/L (15-37); Albumin 3.6 g/dL (3.4-5.0); Alkaline Phosphatase 83 U/L (45-117); BUN Blood Urea Nitrogen 6 mg/dL (7-18); Bicarbonate 25 mmol/L (21-32); Bilirubin Direct < 0.1 mg/dL (0-0.2); Bilirubin Total 0.3 mg/dL (0.2-1.0); Glucose Level 81 mg/dL (74-106); Lipase 99 U/L (73-393); Protein, Total 7.1 g/dL (6.4-8.2); Sodium Level 139 mmol/L (136-145)
[2019-03-30 13:34] LABS: Barbiturates NEGATIVE (NEGATIVE); Benzodiazepines NEGATIVE (NEGATIVE); Cocaine NEGATIVE (NEGATIVE); METHAMPHETAM POSITIVE (NEGATIVE); Methadone NEGATIVE (NEGATIVE); Opiates NEGATIVE (NEGATIVE); Phencyclidine NEGATIVE (NEGATIVE); THC Cannibis POSITIVE (NEGATIVE)
--- NOTE | 2019-03-30 14:33 | ER ---
Nurse's Notes [facility] Name: Natasha Spann Age: 33 yrs Sex: Female : 1985 Arrival Date: 03/30/2019 Time: 10:21 Bed 15 Private MD: Diagnosis: Benign paroxysmal vertigo;Urinary tract infection, site not specified Presentation: 03/30 10:41 Presenting complaint: Patient states: got dizzy, light headed, felt her heart racing iw while she was at work, denies n/v, also thinks she may be . Transition of care: patient was not received from another setting of care. Onset of symptoms was March 30, 2019. Risk Assessment: Do you want to hurt yourself or someone else? Patient reports no desire to harm self or others. Initial Sepsis Screen: Does the patient meet any 2 criteria? No. Patient's initial sepsis screen is negative. Does the patient have a suspected source of infection? No. Patient's initial sepsis screen is negative. Care prior to arrival: None. 10:41 Method Of Arrival: Ambulatory iw 10:41 Acuity: EMILY 3 iw LIBRARIAN SPECIAL LIBRARY: 10:43 LMP 03/19/2019 iw Historical: - Allergies: 10:44 bupropion HCl; iw 10:44 Levofloxacin; iw 10:44 Wellbutrin; iw - Home Meds: 10:44 aripiprazole 15 mg Oral tab 1 tab nightly [Active]; duloxetine 30 mg Oral cpDR 1 cap iw once daily [Active]; hydroxyzine HCl 25 mg Oral tab 4 times per day [Active]; propranolol 20 mg Oral tab 1 tab 2 times per day [Active]; trazodone 150 mg Oral tab 1 tab night prn [Active]; - PMHx: 10:44 ADD/ADHD; Anxiety; Bipolar disorder; Depression; Endometrosis; Gastric Reflux; MRSA; iw osteomylitis; Ovarian cyst; UTI; - PSHx: 10:44 below the knee amputation L side; Tonsillectomy; iw - Immunization history:: Adult Immunizations not up to date. - Ebola Screening: : Patient negative for fever greater than or equal to 101.5 degrees Fahrenheit, and additional compatible Ebola Virus Disease symptoms Patient denies exposure to infectious person Patient denies travel to an Ebola-affected area in the 21 days before illness onset No symptoms or risks identified at this time. - Social history:: Smoking status: Patient uses tobacco products, smokes one pack cigarettes per day. Screenin:40 Abuse screen: Denies threats or abuse. Nutritional screening: No deficits noted. rb1 Tuberculosis screening: No symptoms or risk factors identified. Fall Risk None identified. Assessment: 10:40 General: Appears in no apparent distress. comfortable, Behavior is calm, cooperative. rb1 Pain: Denies pain. Neuro: Reports dizziness. Neuro: Level of Consciousness is awake, alert, obeys commands, Oriented to person, place, time, situation. Cardiovascular: Capillary refill < 3 seconds is brisk in bilateral fingers. Respiratory: Airway is patent Respiratory effort is even, unlabored, Respiratory pattern is regular, symmetrical. GI: No signs and/or symptoms were reported involving the gastrointestinal system. : No signs and/or symptoms were reported regarding the genitourinary system. Derm: Skin is pink, warm \T\ dry. Musculoskeletal: Range of motion: intact in all extremities. 11:05 Reassessment: Called the inside lab to see if they could draw labs, but there was no rb1 answer and it went to the outside lab. 11:11 Reassessment: Called lab to have them come to collect the labs but was unable to reach rb1 them. 11:15 Reassessment: Asked Cyril automobile contract clerk to page lab so they could come and draw the labs. rb1 11:25 Reassessment: Called lab but there was no answer. rb1 11:40 Reassessment: Patient appears in no apparent distress at this time. No changes from rb1 previously documented assessment. 12:33 Reassessment: Informed the provider that we were unable to collect the labs at this rb1 time. Provider requested that the US machine be brought to the bedside. 12:40 Reassessment: Patient appears in no apparent distress at this time. Patient and/or rb1 family updated on plan of care and expected duration. Pain level reassessed. Patient is alert, oriented x 3, equal unlabored respirations, skin warm/dry/pink. 12:50 Reassessment: Cyril Data Designer reports that the lab is coming to draw the labs. rb1 12:59 Reassessment: Lab at bedside. rb1 13:40 Reassessment: Patient appears in no apparent distress at this time. Patient and/or rb1 family updated on plan of care and expected duration. Pain level reassessed. Patient is alert, oriented x 3, equal unlabored respirations, skin warm/dry/pink. Pt. was resting with eyes closed when I walked into the room. Patient denies pain at this time. 14:40 Reassessment: Patient appears in no apparent distress at this time. Patient and/or rb1 family updated on plan of care and expected duration. Pain level reassessed. Patient is alert, oriented x 3, equal unlabored respirations, skin warm/dry/pink. pt. sitting in the chair at bedside. Patient denies pain at this time. Vital Signs: 10:43 BP 131 / 79; Pulse 72; Resp 16; Temp 97.8; Pulse Ox 99% on R/A; Weight 90.72 kg; Height iw 5 ft. 8 in. (172.72 cm); Pain 0/10; 12:40 BP 113 / 63; Pulse 51; Resp 17; Pulse Ox 100% ; Pain 0/10; rb1 13:40 BP 100 / 61; Pulse 52; Resp 17; Temp 98.0(TE); Pulse Ox 100% on R/A; Pain 0/10; rb1 14:40 BP 103 / 60; Pulse 52; Resp 16; Temp 98.3(O); Pulse Ox 100% on R/A; Pain 0/10; rb1 10:43 Body Mass Index 30.41 (90.72 kg, 172.72 cm) iw ED Course: 10:21 Patient arrived in ED. as 10:34 Jorge iCsse PA is PHCP. jmm 10:34 Ole Epstein MD is Attending Physician. jmm 10:40 Patient has correct armband on for positive identification. Bed in low position. Call rb1 light in reach. Side rails up X 1. Pulse ox on. NIBP on. Warm blanket given. 10:43 Triage completed. iw 10:43 Arm band placed on. iw 10:50 Missed attempt(s): 22 gauge in right antecubital area. rb1 10:57 Alba Tucker, RN is Primary Nurse. rb1 11:00 Missed attempt(s): 22 gauge in right upper arm. rb1 11:59 CT completed. Patient tolerated procedure well. Patient moved back from CT. mw3 12:00 CT Head Brain wo Cont In Process Unspecified. EDMS 12:26 Inserted saline lock: 22 gauge in left forearm, using aseptic technique. aj1 14:32 Austin Pinzon MD is Referral Physician. [facility] 15:00 No provider procedures requiring assistance completed. IV discontinued, intact, rb1 bleeding controlled, No redness/swelling at site. Pressure dressing applied. Administered Medications: 12:39 Drug: Meclizine 50 mg Route: PO; rb1 13:40 Follow up: Response: No adverse reaction; Marked relief of symptoms rb1 Outcome: 14:33 Discharge ordered by . [facility] 15:00 Discharged to home ambulatory. rb1 15:00 Condition: stable 15:00 Discharge instructions given to patient, Instructed on discharge instructions, follow up and referral plans. medication usage, Demonstrated understanding of instructions, follow-up care, medications, Prescriptions given X 2. 15:00 Patient left the ED. rb1 Signatures: Dispatcher [employer] EDMS Kimberly Ni RN RN aj1 Jorge Cisse PA PA jmm Martinez, Amelia as Williams, Irene, RN RN Alba Tucker RN RN rb1 Edna Rankin mw3 Corrections: (The following items were deleted from the chart) 15:10 15:08 Patient left the ED. rb1 rb1
--- NOTE | 2019-03-30 14:34 | EDPHYS ---
Physician Documentation [facility] Name: Natasha Spann Age: 33 yrs Sex: Female : 1985 Arrival Date: 03/30/2019 Time: 10:21 Bed 15 Private MD: ED Physician Ole Epstein HPI: 03/30 10:38 This 33 yrs old Female presents to ER via Ambulatory with complaints of jmm Dizziness. 10:38 The patient presents with dizziness. Onset: The symptoms/episode began/occurred jmm acutely, this morning, at 08:00. Modifying factors: The symptoms are alleviated by holding head still, lying down. Associated signs and symptoms: Pertinent negatives: vomiting. This is a 33 year old female with a history of anxiety, bipolar, depression that presents to the ED with complaints of dizziness beginning this morning. Patient states symptoms are similar to previous episodes of vertigo. Symptoms are worsened with movement. Denies vomiting. Denies fever. Is concerned she may be . . IMPLEMENTATION LEAD: 10:43 LMP 03/19/2019 iw Historical: - Allergies: 10:44 bupropion HCl; iw 10:44 Levofloxacin; iw 10:44 Wellbutrin; iw - Home Meds: 10:44 aripiprazole 15 mg Oral tab 1 tab nightly [Active]; duloxetine 30 mg Oral cpDR 1 cap iw once daily [Active]; hydroxyzine HCl 25 mg Oral tab 4 times per day [Active]; propranolol 20 mg Oral tab 1 tab 2 times per day [Active]; trazodone 150 mg Oral tab 1 tab night prn [Active]; - PMHx: 10:44 ADD/ADHD; Anxiety; Bipolar disorder; Depression; Endometrosis; Gastric Reflux; MRSA; iw osteomylitis; Ovarian cyst; UTI; - PSHx: 10:44 below the knee amputation L side; Tonsillectomy; iw - Immunization history:: Adult Immunizations not up to date. - Ebola Screening: : Patient negative for fever greater than or equal to 101.5 degrees Fahrenheit, and additional compatible Ebola Virus Disease symptoms Patient denies exposure to infectious person Patient denies travel to an Ebola-affected area in the 21 days before illness onset No symptoms or risks identified at this time. - Social history:: Smoking status: Patient uses tobacco products, smokes one pack cigarettes per day. ROS: 10:38 Constitutional: Negative for fever, chills, and weight loss, Cardiovascular: Negative [facility] for chest pain, palpitations, and edema, Respiratory: Negative for shortness of breath, cough, wheezing, and pleuritic chest pain. 10:38 Neuro: Positive for dizziness. 10:38 All other systems are negative. Exam: 10:38 Head/Face: atraumatic. Chest/axilla: Normal chest wall appearance and motion. [facility] Cardiovascular: Regular rate and rhythm. No edema appreciated 10:38 Abdomen/GI: Non distended, soft Back: Normal ROM Skin: General appearance color normal MS/ Extremity: Moves all extremities, no obvious deformities appreciated, no edema noted to the lower extremities Neuro: Awake and alert, normal gait 10:38 Constitutional: The patient appears alert, awake, anxious, uncomfortable. 10:38 Eyes: fatiguable nystagmus noted. 10:38 Neuro: Orientation: is normal, Mentation: is normal, Memory: is normal, Cerebellar function: normal finger to nose testing, heel to martinez testing is normal. 10:38 Psych: Behavior/mood is pleasant, cooperative. 14:48 ECG was reviewed by the Attending Physician. [facility] Vital Signs: 10:43 BP 131 / 79; Pulse 72; Resp 16; Temp 97.8; Pulse Ox 99% on R/A; Weight 90.72 kg; Height iw 5 ft. 8 in. (172.72 cm); Pain 0/10; 12:40 BP 113 / 63; Pulse 51; Resp 17; Pulse Ox 100% ; Pain 0/10; rb1 13:40 BP 100 / 61; Pulse 52; Resp 17; Temp 98.0(TE); Pulse Ox 100% on R/A; Pain 0/10; rb1 14:40 BP 103 / 60; Pulse 52; Resp 16; Temp 98.3(O); Pulse Ox 100% on R/A; Pain 0/10; rb1 10:43 Body Mass Index 30.41 (90.72 kg, 172.72 cm) iw MDM: 10:38 Patient medically screened. [facility] 13:49 Data reviewed: vital signs, nurses notes. Counseling: I had a detailed discussion with [facility] the patient and/or guardian regarding: the historical points, exam findings, and any diagnostic results supporting the discharge/admit diagnosis, the need for outpatient follow up, to return to the emergency department if symptoms worsen or persist or if there are any questions or concerns that arise at home. 14:31 ED course: Patient is able to ambulate without difficulty. Symptoms resolved in the ED. jmm PE appear consistent with peripheral vertigo. Patient is advised to follow up with neuro and advised to follow up with pcp and otherwise given strict return precautions. Patient understood and agrees with the plan of care. . 03/30 10:52 Order name: Basic Metabolic Panel [facility] 03/30 10:52 Order name: CBC with Diff [facility] 03/30 10:52 Order name: Creatinine for Radiology [facility] 03/30 10:52 Order name: Hepatic Function; Complete Time: 13:53 [facility] 03/30 10:52 Order name: Lipase; Complete Time: 13:53 [facility] 03/30 10:55 Order name: Basic Metabolic Panel; Complete Time: 13:53 [facility] 03/30 10:52 Order name: IV Saline Lock; Complete Time: 12:39 [facility] 03/30 10:55 Order name: CBC with Automated Diff; Complete Time: 13:53 [facility] 03/30 10:55 Order name: Creatinine (Radiology Only); Complete Time: 13:53 [facility] 03/30 11:18 Order name: Urine Dipstick--Ancillary (enter results); Complete Time: 11:39 [facility] 03/30 11:18 Order name: Urine --Ancillary (enter results); Complete Time: 11:39 [facility] 03/30 11:32 Order name: Urine Drug Screen; Complete Time: 13:53 [facility] 03/30 11:32 Order name: CT Head Brain wo Cont; Complete Time: 12:10 [facility] 03/30 10:52 Order name: Labs collected and sent; Complete Time: 13:44 [facility] 03/30 10:54 Order name: Urine Dipstick-Ancillary (obtain specimen); Complete Time: 11:15 [facility] 03/30 10:54 Order name: Urine Test (obtain specimen); Complete Time: 11:15 [facility] 03/30 11:32 Order name: EKG - Nurse/Tech; Complete Time: 13:41 jmm EC:48 Rate is 53 beats/min. Rhythm is regular. QRS [place] is Normal. PA interval is normal. QRS jmm interval is normal. QT interval is normal. No Q waves. T waves are Normal. No ST changes noted. Reviewed by me. Administered Medications: 12:39 Drug: Meclizine 50 mg Route: PO; rb1 13:40 Follow up: Response: No adverse reaction; Marked relief of symptoms rb1 Disposition: 03/30/19 14:33 Discharged to Home. Impression: Benign paroxysmal vertigo, Urinary tract infection, site not specified. - Condition is Stable. - Discharge Instructions: Benign Positional Vertigo, Urinary Tract Infection, Adult. - Prescriptions for Cephalexin 500 mg Oral Capsule - take 1 capsule by ORAL route every 12 hours for 10 days; 20 capsule. Meclizine 25 mg Oral Tablet - take 1 tablet by ORAL route every 8 hours As needed; 30 tablet. - Medication Reconciliation Form, Thank You Letter, Antibiotic Education, Prescription Opioid Use form. - Follow up: Austin Pinzon MD; When: 2 - 3 days; Reason: Recheck today's complaints, Continuance of care, Re-evaluation by your physician. Addendum: 04/01/2019 09:32 Co-signature as Attending Physician, Ole Epstein MD I agree with the assessment and c borjas plan of care. Signatures: Dispatcher [employer] EDMS Ole Epstein MD MD cha Mickail, Joel, PA PA Anastasia Santizo, RN RN iw Alba Tucker RN RN rb1 Corrections: (The following items were deleted from the chart) 03/30 15:08 14:33 03/30/2019 14:33 Discharged to Home. Impression: Benign paroxysmal vertigo; rb1 Urinary tract infection, site not specified. Condition is Stable. Forms are Medication Reconciliation Form, Thank You Letter, Antibiotic Education, Prescription Opioid Use. Follow up: Austin Pinzon; When: 2 - 3 days; Reason: Recheck today's complaints, Continuance of care, Re-evaluation by your physician. fausto
[2019-03-30 15:21] VITALS: O2SAT 100
[2019-03-30 15:24] VITALS: BP 103/60; TEMP 98.3
--- NOTE | 2019-03-31 10:24 | EKG ---
Test Date: 2019-03-30 Test Time: 13:02:10 Cfo Controller: MELANY MEASUREMENT RESULTS: Intervals: Rate: 53 MT: 156 QRSD: 78 QT: 436 QTc: 409 Mcconnell: P: 42 MT: 156 QRS: 82 T: 51 INTERPRETIVE STATEMENTS: Sinus bradycardia with sinus arrhythmia Otherwise normal ECG Compared to ECG 12/28/2018 14:12:32 No significant changes Electronically Signed On 03-31-19 10:23:20 CDT by Ha Krishnamurthy
== END 2019-03-30 15:08 | disposition home or self-care (01) ==
LOC: ER 10:19
DX: H81.10 Benign paroxysmal vertigo, unspecified ear (principal); N39.0 Urinary tract infection, site not specified; F41.9 Anxiety disorder, unspecified; F31.9 Bipolar disorder, unspecified; F32.9 Major depressive disorder, single episode, unspecified; F90.9 Attention-deficit hyperactivity disorder, unspecified type; Z88.1 Allergy status to other antibiotic agents; Z88.8 Allergy status to other drugs, medicaments and biological substances
CPT/HCPCS: 36415; 70450; 80048; 80076; 80307; 81003; 81025; 83690; 85025; 93005; 99284

== ENCOUNTER 2019-05-02 14:08 | Emergency (ER) | payer SELFPAY ==
--- OUTSIDE RECORDS SUMMARY | 2019-05-02 14:10 | XMS REPORT | Summary of Care ---
:1985 Author Organization [facility] Address [address] [place] [id number] Care Team Providers Name Role Phone Lina Martínez MD Primary Care Provider Reason for Visit Reason Comments Wound left leg Auth/Cert Status Reason Specialty Diagnoses / Referred By Referred To Procedures Contact Contact [facility] [address] [place] [address] [place] [address] Encounter Details Date Type Department Care Team Description 04/14/2019 Emergency [facility]-Emergency Ad Javier FNP Abrasion of left lower Department 301 [facility] extremity, initial [address] [place] [address] [place] encounter (Primary Dx) [place] [id number] Allergies Active Allergy Reactions Severity Noted Date Comments Levofloxacin Other - See comments 05/29/2016 Gets severe joint pains. Bupropion Other - See comments 05/29/2016 Makes patient feel "crazy" documented as of this encounter (statuses as of 04/14/2019) Medications Medication Sig Dispensed Refills Start Date End Date Status TRAZODONE HCL Take by mouth. 0 Active (TRAZODONE ORAL) TOPIRAMATE (TOPAMAX Take by mouth. 0 Active ORAL) PROPRANOLOL HCL Take by mouth. 0 Active (PROPRANOLOL ORAL) HYDROXYZINE HCL ORAL Take by mouth. 0 Active DULOXETINE HCL Take by mouth. 0 Active (CYMBALTA ORAL) ARIPIPRAZOLE (ABILIFY Take by mouth. 0 Active ORAL) Butalbital-Acetaminop Take 1 capsule by 20 capsule 0 05/20/2017 Active hen-Caff (FIORICET) mouth every 6 50-300-40 mg per (six) hours as capsule needed for Pain (scale 4-6). FLUOXETINE HCL Take by mouth. 0 Active (PROZAC ORAL) metroNIDAZOLE 500 mg Take 1 tablet by 14 tablet 0 06/05/2017 Active tablet mouth 2 (two) times daily. ondansetron (ZOFRAN Take 1 tablet by 10 tablet 0 09/13/2017 Active ODT) 4 mg mouth every 8 disintegrating tablet (eight) hours as needed for Nausea and Vomiting (N/V). promethazine-codeine Take 5 mL by mouth 120 mL 0 09/30/2017 Active 6.25-10 mg/5 mL syrup 4 (four) times daily as needed for Cough. sod Use 1 Bottle in 1 Each 0 09/30/2017 Active [id number] each nostril 2 bottle (NEILMED SINUS (two) times daily. RINSE COMPLETE) pkdv Use in hot shower 1 hour before bedtime meclizine 25 mg Take 1 tablet by 90 tablet 1 11/17/2017 Active tabletIndications: mouth 3 (three) Vertigo times daily as needed for Dizziness. acetaminophen-codeine Take 1-2 tablets 30 tablet 0 12/19/2017 Active 300-30 mg by mouth every 6 tabletIndications: (six) hours as Menorrhagia with needed for Pain irregular cycle, (scale 4-6) or Lower abdominal pain, Pain (scale 7-10) Unprotected sexual (for breakthrough intercourse pain). phenazopyridine 200 Take 1 tablet by 9 tablet 0 12/28/2017 Active mg tablet mouth 3 (three) times daily. ondansetron (ZOFRAN Take 1 tablet by 20 tablet 0 12/28/2017 Active ODT) 4 mg mouth every 8 disintegrating tablet (eight) hours as needed for Nausea and Vomiting (N/V). metoclopramide HCl 10 1 tab every 4hr as 60 tablet 1 01/12/2018 Active mg tabletIndications: needed for nausea Migraine without status migrainosus, not intractable, unspecified migraine type naproxen sodium Take 1 tablet by 30 tablet 0 01/28/2018 Active (ANAPROX DS) 550 mg mouth 2 (two) tablet times daily with meals. pantoprazole Take 1 tablet by 180 tablet 3 02/14/2018 Active (PROTONIX) 40 mg EC mouth 2 (two) tabletIndications: times daily. Chronic abdominal pain, Abdominal bloating fluticasone 50 Use 2 Sprays in 16 g 2 02/14/2018 Active mcg/actuation nasal each nostril sprayIndications: Ear daily. fullness, left sulfamethoxazole-trim Take 1 tablet by 14 tablet 0 10/02/2018 Active ethoprim 800-160 mg mouth every 12 per (twelve) hours. tabletIndications: Hidradenitis suppurativa of left axilla acetaminophen-codeine Take 1 tablet by 20 tablet 0 12/06/2018 Active (TYLENOL-CODEINE #3) mouth every 4 300-30 mg (four) hours as tabletIndications: needed for Pain Stump pain (scale 7-10). cephALEXin (KEFLEX) Take 1 capsule by 28 capsule 0 12/06/2018 Active 250 mg mouth every 6 capsuleIndications: (six) hours. Stump pain Miscellaneous Medical LOWR EXTREMITY 1 Each 3 12/14/2018 Active Supply PROSTHES NOS, Left MiscIndications: Hx bka, needs new of BKA, left prosthesis and supplies ibuprofen 600 mg Take 1 tablet by 30 tablet 0 03/18/2019 Active tabletIndications: mouth every 6 Sciatica of right (six) hours as side needed for Pain (scale 4-6). documented as of this encounter (statuses as of 04/14/2019) Active Problems Problem Noted Date Migraine without status migrainosus, not intractable, unspecified migraine type Gastroesophageal reflux disease, esophagitis presence not specified 01/12/2018 documented as of this encounter (statuses as of 04/14/2019) Social History Tobacco Use Types Packs/Day Years [...] Sign Reading Time Taken Comments Blood Pressure 146/82 04/14/2019 5:23 PM CDT Pulse 82 04/14/2019 5:23 PM CDT Temperature 36.7 C (98.1 F) 04/14/2019 5:23 PM CDT Respiratory Rate 18 04/14/2019 5:23 PM CDT Oxygen Saturation 98% 04/14/2019 5:23 PM CDT Inhaled Oxygen Concentration - - Weight 90.7 kg (200 lb) 04/14/2019 5:23 PM CDT Height - - Body Mass Index 30.41 12/14/2018 1:28 PM CDT documented in this encounter Discharge Instructions Ad Engle FNP - 04/14/2019DIAGNOSIS 1. Abrasion or wound to left leg NO LIFE-THREATENING FINDINGS ON TODAY'S EXAM. SPECIAL CARE INSTRUCTIONS: Stay well hydrated keep leg out of prosthetic as much as possible. Use extra padding to area of wound when using prosthetic Return to ER for signs of infection Follow up with PCP- plan to have prosthetic evaluated for fit. FOLLOW-UP RECOMMENDATIONS: RECOMMEND FOLLOW-UP WITH A PRIMARY CARE PROVIDER OR SPECIALIST IN 2-5 DAYS, ESPECIALLY IF NO IMPROVEMENT IN SYMPTOMS. TO FOLLOW-UP WITHIN THE [facility], TRY THESE OPTIONS (CLINIC APPOINTMENTS AVAILABLE ON [id number] BASIS): 1. SCHEDULE AN APPOINTMENT ONLINE AT [email or web address] 2. OR CALL THE [facility] AT OR 3. OR CALL YOUR [facility] PHYSICIAN'S OFFICE DIRECTLY IF YOU ARE ALREADY AN ESTABLISHED [facility] PATIENT. OR, YOU MAY FOLLOW-UP WITH A PROVIDER OF YOUR CHOICE, SUCH : 1. A PHYSICIAN OF YOUR CHOICE 2. [facility], . LOCATIONS IN [facility] 3. [facility], [address] [place] [address]; RETURN TO ER FOR WORSENING OF SYMPTOMS. AttachmentsThe following attachments cannot be sent through Care Everywhere.Abrasions (Serbian)documented in this encounter Plan of Treatment Health Maintenance Due Date Last Done Comments PNEUMOCOCCAL 0-64 YEARS COMBINED SERIES (1 of 1 - 1991 PPSV23) VARICELLA VACCINES (1 of 2 - 13+ 2-dose series) 1998 DTaP,Tdap,and Td Vaccines (1 - Tdap) 2004 PAP SMEAR 2006 INFLUENZA VACCINE (Retired version) 04/21/2019 documented as of this encounter Results Not on filedocumented in this encounter Visit Diagnoses Diagnosis Abrasion of left lower extremity, initial encounter - Primary documented in this encounter Advance Directives Name Relationship Healthcare Agent Communication Relationship Katharina Abraham Mother Primary healthcare agent
--- OUTSIDE RECORDS SUMMARY | 2019-05-02 14:10 | XMS REPORT | Clinical Summary ---
:1985 Author Organization [facility] Address [address] [place] [address] Care Team Providers Name Role Phone Cathy [...] Not on file Results Not on fileafter 05/01/2018 Insurance Payer Benefit Plan / Group Subscriber ID Type Phone Address xxxxxxxxx Other Govt (, [place], [facility], etc.) Advance Directives For more information, please contact:[address] [phone] Code Status Date Activated Date Inactivated Comments Full Code 07/15/2017 10:38 PM 07/16/2017 5:00 PM This code status was determined by: Patient
--- OUTSIDE RECORDS SUMMARY | 2019-05-02 14:10 | XMS REPORT ---
:1985 [facility] Address [address] [place] [address] Care Team Providers Name Role Phone JOYCE FOLEY Unavailable Unavailable Problems This patient has no known problems. Allergies, Adverse Reactions, Alerts This patient has no known allergies or adverse reactions. Medications This patient has no known medications. Encounters Start End Encounter Admission Attending Care Care Encounter Date/Time Date/Time Type Type Clinicians Facility Department ID 2017-04-09 2017-04-09 Emergency [facility] [id number] 00:00:00 00:00:00 2017-04-09 2017-04-09 Emergency [facility] [id number] 00:00:00 00:00:00 2017-04-08 2017-04-08 [facility] [id number] 22:35:00 22:35:00 2017-04-08 2017-04-08 [facility] [id number] 00:00:00 00:00:00 Results Test Description Test Time Test Comments Text Results Atomic Results Result Comments HEMOGLOBIN A1C 2017-07-16 13:26:00 Test Item Value Reference Range Comments HEMOGLOBIN A1C (BEAKER) (test uleb=135) 5.2 % 4.3-6.1 CBC W/PLT COUNT & AUTO [id number] 09:42:00 Test Item Value Reference Range Comments WHITE BLOOD CELL COUNT (BEAKER) (test bysu=671) 8.3 K/ L 3.5-10.5 RED BLOOD CELL COUNT (BEAKER) (test qtzz=955) 3.47 M/ L 3.93-5.22 HEMOGLOBIN (BEAKER) (test joil=523) 10.3 GM/DL 11.2-15.7 HEMATOCRIT (BEAKER) (test hyzd=958) 32.8 % 34.1-44.9 MEAN CORPUSCULAR VOLUME (BEAKER) (test ajcm=165) 94.5 fL 79.4-94.8 MEAN CORPUSCULAR HEMOGLOBIN (BEAKER) (test 29.7 pg 25.6-32.2 sipo=774) MEAN CORPUSCULAR HEMOGLOBIN CONC (BEAKER) (test 31.4 GM/DL 32.2-35.5 bunm=572) RED CELL DISTRIBUTION WIDTH (BEAKER) (test 13.1 % 11.7-14.4 okpx=686) PLATELET COUNT (BEAKER) (test tcmg=281) 284 K/CU MM 150-450 MEAN PLATELET VOLUME (BEAKER) (test gnyz=771) 9.7 fL 9.4-12.3 NUCLEATED RED BLOOD CELLS (BEAKER) (test 0 /100 WBC 0-0 ojkh=453) IMMATURE GRANULOCYTES-RELATIVE PERCENT (BEAKER) 0 % 0-1 (test xzzh=7477) (MANUAL DIFFERENTIAL)2017-07-16 09:42:00 Test Item Value Reference Range Comments NEUTROPHILS - REL (DIFF) (BEAKER) (test yyto=9534) 36 % LYMPHOCYTES - REL (DIFF) (BEAKER) (test bzma=0608) 53 % MONOCYTES - REL (DIFF) (BEAKER) (test mate=9239) 4 % EOSINOPHILS - REL (DIFF) (BEAKER) (test xfmi=5571) 2 % BASOPHILS - REL (DIFF) (BEAKER) (test gvxs=7506) 2 % ATYPICAL LYMPHOCYTE - REL (DIFF) (BEAKER) (test 3 % 0-0 jels=978) NEUTROPHILS - ABS (DIFF) (BEAKER) (test yqzu=6112) 2.99 K/ L 1.80-8.00 LYMPHOCYTES - ABS (DIFF) (BEAKER) (test tuuq=3107) 4.40 K/ L 1.48-4.50 MONOCYTES - ABS (DIFF) (BEAKER) (test tfva=7055) 0.33 K/ L 0.00-1.30 EOSINOPHILS - ABS (DIFF) (BEAKER) (test lvos=2273) 0.17 K/ L 0.00-0.50 BASOPHILS - ABS (DIFF) (BEAKER) (test ntem=2147) 0.17 K/ L 0.00-0.20 ATYPICAL LYMPHOCYTES - ABS (DIFF) (BEAKER) (test 0.25 K/ L 0.00-0.00 jizp=625) TOTAL COUNTED (BEAKER) (test nsqr=2657) 100 WBC MORPHOLOGY (BEAKER) (test rlzv=485) Normal PLT MORPHOLOGY (BEAKER) (test qxda=753) Normal RBC MORPHOLOGY (BEAKER) (test knso=673) Normal [id number] 07:11:00 Test Item Value Reference Range Comments MAGNESIUM (BEAKER) (test aqml=752) 1.5 mg/dL 1.6-2.6 BASIC METABOLIC [id number] 07:11:00 Test Item Value Reference Range Comments SODIUM (BEAKER) (test 140 meq/L 136-145 mbck=426) POTASSIUM (BEAKER) (test 3.6 meq/L 3.5-5.1 qcut=878) CHLORIDE (BEAKER) (test 119 meq/L 98-107 gmaw=777) CO2 (BEAKER) (test 16 meq/L 22-29 fenx=127) BLOOD UREA NITROGEN 7 mg/dL 7-21 (BEAKER) (test erat=663) CREATININE (BEAKER) (test 0.59 mg/dL 0.57-1.25 fmnx=591) GLUCOSE RANDOM (BEAKER) 89 mg/dL 70-105 (test dzen=405) CALCIUM (BEAKER) (test 8.3 mg/dL 8.4-10.2 ynhv=527) EGFR (BEAKER) (test 118 mL/min/1.73 sq m ESTIMATED GFR IS NOT btkg=1725) ACCURATE CREATININE CLEARANCE IN PREDICTING GLOMERULAR FILTRATION RATE. ESTIMATED GFR IS NOT APPLICABLE FOR DIALYSIS PATIENTS. LIPID [id number] 07:11:00 Test Item Value Reference Range Comments TRIGLYCERIDES (BEAKER) (test gubk=639) 75 mg/dL CHOLESTEROL (BEAKER) (test ecno=302) 173 mg/dL HDL CHOLESTEROL (BEAKER) (test itph=872) 33 mg/dL LDL CHOLESTEROL CALCULATED (BEAKER) (test 125 mg/dL ykoy=377) Triglyceride Reference Range: Low Risk <150 Borderline 150- 199 High Risk 200-499 Very High Risk >=500Cholesterol Reference Range: Low Risk <200 Borderline 200-239 High Risk > 240HDL Cholesterol Reference Range: Low Risk >=60 High Risk <40LDL Cholesterol Reference Range: Optimal <100 Near Optimal 100-129 Borderline 130-159 High 160-189 Very High >=190TROPONIN [id number] 06:34:00 Test Item Value Reference Range Comments TROPONIN I (KRISTI) (test srwk=290) < ng/mL 0.00-0.03 Troponin I (TnI) levels [...] acidosis, acute neurological disease, and persistent tachyarrhythmia.TROPONIN [id number] 23:58:00 Test Item Value Reference Range Comments TROPONIN I (BEPETER) (test qahb=656) < ng/mL 0.00-0.03 Troponin I (TnI) levels [...]
--- OUTSIDE RECORDS SUMMARY | 2019-05-02 14:10 | XMS REPORT | Clinical Summary ---
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
[2019-05-02 15:34] LABS: Absolute Lymphocytes (CBC) 3.1 K/uL (0.7-4.9); Basophils % 0.4 % (0-1.3); Hematocrit 38.2 % (36.0-45.0); Lymphocytes % 25.8 % (15.3-44.8); RBC Red Blood Cell Count 4.22 M/uL (3.86-4.86)
[2019-05-02 15:53] LABS: ALT/SGPT 20 U/L (12-78); AST/SGOT 12 U/L (15-37); Alkaline Phosphatase 85 U/L (45-117); BUN Blood Urea Nitrogen 7 mg/dL (7-18); Bicarbonate 25 mmol/L (21-32); Bilirubin Direct < 0.1 mg/dL (0-0.2); Bilirubin Total 0.3 mg/dL (0.2-1.0); Glucose Level 87 mg/dL (74-106); Potassium 3.9 mmol/L (3.5-5.1); Protein, Total 7.3 g/dL (6.4-8.2); Sodium Level 139 mmol/L (136-145)
[2019-05-02 16:29] LABS: Urine Blood NEGATIVE (NEG); Urine Glucose NEGATIVE (NEG); Urine Protein NEGATIVE (NEG)
[2019-05-02 16:37] LABS: Barbiturates NEGATIVE (NEGATIVE); Benzodiazepines NEGATIVE (NEGATIVE); Cocaine NEGATIVE (NEGATIVE); METHAMPHETAM NEGATIVE (NEGATIVE); Methadone NEGATIVE (NEGATIVE); Opiates NEGATIVE (NEGATIVE); Phencyclidine NEGATIVE (NEGATIVE); THC Cannibis NEGATIVE (NEGATIVE)
--- NOTE | 2019-05-02 16:51 | ER ---
Nurse's Notes [facility] Name: Natasha Spann Age: 34 yrs Sex: Female : 1985 Arrival Date: 05/02/2019 Time: 14:09 Bed 15 Private MD: Diagnosis: Anxiety disorder due to known physiological condition;Major depressive disorder, recurrent Presentation: 05/02 14:22 Presenting complaint: Patient states: "my anxiety is really bad today and it's making iw me suicidal, I have no place to stay and I was dropped off at someone's house that does drugs, I tried to get in rehab but they have no beds, I have no other place to go, I'm gonna be on the streets" is currently out of depression meds, has no ride to get to [facility], pt does not have a plan at this time states she hasn't thought that far ahead, pt states she is anxious and suicidal due to her living situation, was living with her sister but can no longer stay with her. Transition of care: patient was not received from another setting of care. Onset of symptoms was May 02, 2019. Risk Assessment: Do you want to hurt yourself or someone else? Patient reports no desire to harm self or others. Initial Sepsis Screen: Does the patient meet any 2 criteria? No. Patient's initial sepsis screen is negative. Does the patient have a suspected source of infection? No. Patient's initial sepsis screen is negative. Care prior to arrival: None. 14:22 Method Of Arrival: Ambulatory 14:22 Acuity: EMILY 2 iw [employer]: 14:28 LMP 04/09/2019 iw Historical: - Allergies: 14:28 bupropion HCl; iw 14:28 Levofloxacin; iw 14:28 Wellbutrin; iw - PMHx: 14:28 ADD/ADHD; Anxiety; Bipolar disorder; Depression; Endometrosis; Gastric Reflux; MRSA; iw osteomylitis; UTI; Ovarian cyst; - PSHx: 14:28 below the knee amputation L side; Tonsillectomy; iw - Immunization history:: Adult Immunizations not up to date. - Social history:: Smoking status: Patient uses tobacco products, smokes one pack cigarettes per day. - Ebola Screening: : Patient negative for fever greater than or equal to 101.5 degrees Fahrenheit, and additional compatible Ebola Virus Disease symptoms Patient denies exposure to infectious person Patient denies travel to an Ebola-affected area in the 21 days before illness onset No symptoms or risks identified at this time. Screenin:45 Abuse screen: Denies threats or abuse. Nutritional screening: No deficits noted. rb1 Tuberculosis screening: No symptoms or risk factors identified. Fall Risk No fall in past 12 months (0 pts). Secondary diagnosis (15 points) impaired mobility, No IV (0 pts). Ambulatory Aid- None/Bed Rest/Nurse Assist (0 pts). Gait- Impaired (20 pts.). Mental Status- Oriented to own ability (0 pts). Total Steve Fall Scale indicates Low Risk Score (25-44 pts). Fall prevention measures have been instituted. Side Rails Up X 2 Placed close to Nursing Station 1:1 attendant Assigned to Pt. Frequent Obs/Assesments occuring As available Patient and Family Educated on Fall Prevention Program and strategies. Assessment: 14:45 General: Appears in no apparent distress. comfortable, Behavior is calm, cooperative, rb1 Denies fever, feeling ill. General: Pt. reports feeling overwhelmed and depressed, denies having a plan.. Pain: Denies pain. Neuro: Level of Consciousness is awake, alert, obeys commands, Oriented to person, place, time, situation. Cardiovascular: Capillary refill < 3 seconds is brisk in bilateral fingers. Respiratory: Airway is patent Respiratory effort is even, unlabored, Respiratory pattern is regular, symmetrical. GI: Reports nausea. : No signs and/or symptoms were reported regarding the genitourinary system. Derm: Skin is pink, warm \\T\\ dry. Musculoskeletal: Amputation of left leg. 14:55 Reassessment: Provider stated, "Don't remove personal items or removed items out of the rb1 room, the pt. will be discharged. 15:40 Reassessment: Patient appears in no apparent distress at this time. No changes from rb1 previously documented assessment. 16:40 Reassessment: Patient appears in no apparent distress at this time. Patient and/or rb1 family updated on plan of care and expected duration. Pain level reassessed. Patient is alert/active/playful, equal unlabored respirations, skin warm/dry/pink. Patient denies pain at this time. 17:35 Reassessment: Patient appears in no apparent distress at this time. No changes from rb1 previously documented assessment. Psych: 14:45 Subjective: Patient's mood is sad. Objective: Patient is cooperative, Speech is normal, rb1 Affect is flat. Interventions:. Suicide Risk Assessment: Sad Person Scale: Sex of patient: Female: Score 0 points. Age of patient: Score 1 point if patient 15-34. Depression: Score 1 point if signs of depression are present. Substance Abuse: Score 0 point if patient does not abuse alcohol or drugs. Rational Thinking: Score 0 point if patient has rational thinking. Social Support: Score 1 point if social support is lacking and/or unavailable. Organized Plan: Score 0 if patient did not have an organized plan in place. Relationship: Chronic Sickness: Score 1 point if patient has illness, chronic, debilitating, or severe. TOTAL POINTS: If total points are 3-4, proposed clinical action is close follow-up/consider hospitalization. Pt denies substance abuse. Commitment: Patient will be a voluntary commitment. Vital Signs: 14:28 BP 114 / 57; Pulse 70; Resp 16; Temp 97.8; Pulse Ox 97% on R/A; Weight 92.53 kg; Height iw 5 ft. 8 in. (172.72 cm); Pain 0/10; 15:28 BP 119 / 64; Pulse 68; Resp 17; Temp 98.3(O); Pulse Ox 99% on R/A; Pain 0/10; rb1 16:22 BP 122 / 78; Pulse 65; Resp 16; Temp 98.0(O); Pulse Ox 100% ; Pain 0/10; rb1 17:35 BP 126 / 87; Pulse 62; Resp 17; Temp 98.5(O); Pulse Ox 99% on R/A; Pain 0/10; rb1 14:28 Body Mass Index 31.02 (92.53 kg, 172.72 cm) iw ED Course: 14:09 Patient arrived in ED. rg4 14:27 Triage completed. iw 14:29 Arm band placed on. iw 14:44 Kian Escobedo PA is PHCP. jr8 14:44 Guera Mccarty MD is Attending Physician. jr8 14:45 Patient has correct armband on for positive identification. Bed in low position. Call rb1 light in reach. Side rails up X 1. Pulse ox on. NIBP on. 15:23 Missed attempt(s): 22 gauge in right antecubital area. Labs were drawn and sent to lab..rb1 15:34 Alba Tucker, RN is Primary Nurse. rb1 17:36 No provider procedures requiring assistance completed. Patient did not have IV access rb1 during this emergency room visit. Administered Medications: No medications were administered Outcome: 16:50 Discharge ordered by . andie 17:36 Discharged to home ambulatory, with friend. rb1 17:36 Condition: stable 17:36 Discharge instructions given to patient, Instructed on discharge instructions, follow up and referral plans. Demonstrated understanding of instructions, follow-up care, Prescriptions given X none 17:37 Patient left the ED. rb1 Signatures: Anastasia Patel RN RN iw Kian Escobedo PA PA jr8 Alba Tucker, RN RN rb1 Giuliana Wilcox rg4
--- NOTE | 2019-05-02 16:52 | EDPHYS ---
Physician Documentation [facility] Name: Natasha Spann Age: 34 yrs Sex: Female : 1985 Arrival Date: 05/02/2019 Time: 14:09 Bed 15 Private MD: ED Physician Guera Mccarty HPI: 05/02 16:02 This 34 yrs old Female presents to ER via Ambulatory with complaints of jr8 Suicidal Ideation. 16:02 The patient presents to the emergency department with anxiety, depression. Onset: The jr8 symptoms/episode began/occurred acutely, today. Past psychiatric history: Prior diagnosis: bipolar disorder, depression. Associated signs and symptoms: The patient has no apparent associated signs or symptoms. Severity of symptoms: At their worst the symptoms were mild in the emergency department the symptoms are unchanged. The patient has experienced similar episodes in the past, a few times. The patient has been recently seen by a physician:. Patient stated that she recently saw her psychiatrist and are trying to get her into a drug addiction rehabilitation facility. Stated that she has been off of her depressive medications for a couple of days but have them refilled and just waiting for them to process. Stated that she currently had been living at some friends house but does not think she can take living there any longer. Stated that it is making her anxiety and depression worse. Does not feel like she wants to kill herself but feels that it could get that way if something does not change . FINISH GRINDER: 14:28 LMP 04/09/2019 iw Historical: - Allergies: 14:28 bupropion HCl; iw 14:28 Levofloxacin; iw 14:28 Wellbutrin; iw - PMHx: 14:28 ADD/ADHD; Anxiety; Bipolar disorder; Depression; Endometrosis; Gastric Reflux; MRSA; iw osteomylitis; UTI; Ovarian cyst; - PSHx: 14:28 below the knee amputation L side; Tonsillectomy; iw - Immunization history:: Adult Immunizations not up to date. - Social history:: Smoking status: Patient uses tobacco products, smokes one pack cigarettes per day. - Ebola Screening: : Patient negative for fever greater than or equal to 101.5 degrees Fahrenheit, and additional compatible Ebola Virus Disease symptoms Patient denies exposure to infectious person Patient denies travel to an Ebola-affected area in the 21 days before illness onset No symptoms or risks identified at this time. ROS: 16:02 Eyes: Negative for injury, pain, redness, and discharge, ENT: Negative for injury, jr8 pain, and discharge, Neck: Negative for injury, pain, and swelling, Cardiovascular: Negative for chest pain, palpitations, and edema, Respiratory: Negative for shortness of breath, cough, wheezing, and pleuritic chest pain, Abdomen/GI: Negative for abdominal pain, nausea, vomiting, diarrhea, and constipation, Back: Negative for injury and pain, MS/Extremity: Negative for injury and deformity, Skin: Negative for injury, rash, and discoloration, Neuro: Negative for headache, weakness, numbness, tingling, and seizure. 16:02 Psych: Positive for anxiety, depression. Exam: 16:02 Eyes: Pupils equal round and reactive to light, extra-ocular motions intact. Lids and jr8 lashes normal. Conjunctiva and sclera are non-icteric and not injected. Cornea within normal limits. Periorbital areas with no swelling, redness, or edema. ENT: Nares patent. No nasal discharge, no septal abnormalities noted. Tympanic membranes are normal and external auditory canals are clear. Oropharynx with no redness, swelling, or masses, exudates, or evidence of obstruction, uvula midline. Mucous membranes moist. Neck: Trachea midline, no thyromegaly or masses palpated, and no cervical lymphadenopathy. Supple, full range of motion without nuchal rigidity, or vertebral point tenderness. No Meningismus. Cardiovascular: Regular rate and rhythm with a normal S1 and S2. No gallops, murmurs, or rubs. Normal PMI, no JVD. No pulse deficits. Respiratory: Lungs have equal breath sounds bilaterally, clear to auscultation and percussion. No rales, rhonchi or wheezes noted. No increased work of breathing, no retractions or nasal flaring. Abdomen/GI: Soft, non-tender, with normal bowel sounds. No distension or tympany. No guarding or rebound. No evidence of tenderness throughout. Back: No spinal tenderness. No costovertebral tenderness. Full range of motion. Skin: Warm, dry with normal turgor. Normal color with no rashes, no lesions, and no evidence of cellulitis. MS/ Extremity: Pulses equal, no cyanosis. Neurovascular intact. Full, normal range of motion. Neuro: Awake and alert, GCS 15, oriented to person, place, time, and situation. Cranial nerves II-XII grossly intact. Motor strength 5/5 in all extremities. Sensory grossly intact. Cerebellar exam normal. Normal gait. 16:02 Psych: Behavior/mood is pleasant, cooperative, anxious, Affect is calm, Oriented to person, place, time, Patient has no thoughts/intents to harm self or others. Judgement / Insight is normal. Memory is normal. Delusions/hallucinations are not present. Vital Signs: 14:28 BP 114 / 57; Pulse 70; Resp 16; Temp 97.8; Pulse Ox 97% on R/A; Weight 92.53 kg; Height iw 5 ft. 8 in. (172.72 cm); Pain 0/10; 15:28 BP 119 / 64; Pulse 68; Resp 17; Temp 98.3(O); Pulse Ox 99% on R/A; Pain 0/10; rb1 16:22 BP 122 / 78; Pulse 65; Resp 16; Temp 98.0(O); Pulse Ox 100% ; Pain 0/10; rb1 17:35 BP 126 / 87; Pulse 62; Resp 17; Temp 98.5(O); Pulse Ox 99% on R/A; Pain 0/10; rb1 14:28 Body Mass Index 31.02 (92.53 kg, 172.72 cm) iw MDM: 14:55 Patient medically screened. [facility] 16:02 Data reviewed: vital signs, nurses notes, lab test result(s), EKG. Data interpreted: [facility] Pulse oximetry: on room air is 97 %. Interpretation: normal. Counseling: I had a detailed discussion with the patient and/or guardian regarding: the historical points, exam findings, and any diagnostic results supporting the discharge/admit diagnosis, lab results, the need for outpatient follow up, a psychiatrist, to return to the emergency department if symptoms worsen or persist or if there are any questions or concerns that arise at home. ED course: After long discussion with patient. Patient does not want to hurt herself. Just felt very overwhelmed today. Will go back to where she is currently staying and will continue to try and get into rehab facility. Knows to come back if worse. Offered to try and get her into intermediate as well but stated that she would rather go back to other place for now. 05/02 14:56 Order name: Basic Metabolic Panel; Complete Time: 16:15 05/02 14:56 Order name: CBC with Diff; Complete Time: 16:15 05/02 14:56 Order name: ETOH Level; Complete Time: 16:15 05/02 14:56 Order name: Hepatic Function; Complete Time: 16:15 05/02 14:56 Order name: Urine Drug Screen; Complete Time: 16:49 05/02 16:18 Order name: Urine Dipstick--Ancillary (enter results); Complete Time: 16:49 bd 05/02 14:56 Order name: Urine Test (obtain specimen); Complete Time: 16:53 05/02 14:56 Order name: EKG; Complete Time: 14:57 05/02 14:56 Order name: EKG - Nurse/Tech; Complete Time: 16:54 05/02 14:56 Order name: Labs collected and sent; Complete Time: 15:35 05/02 14:56 Order name: Urine Dipstick-Ancillary (obtain specimen); Complete Time: 16:53 05/02 16:18 Order name: Urine --Ancillary (enter results); Complete Time: 16:49 bd Administered Medications: No medications were administered Disposition: 18:45 Co-signature as Attending Physician, Guera Mccarty MD. ma2 Disposition: 05/02/19 16:50 Discharged to Home. Impression: Anxiety disorder due to known physiological condition, Major depressive disorder, recurrent. - Condition is Stable. - Discharge Instructions: Panic Attacks, Helping Someone Who is Suicidal, Major Depressive Disorder. - Medication Reconciliation Form, Thank You Letter, Antibiotic Education, Prescription Opioid Use form. - Follow up: Private Physician; When: As needed; Reason: Recheck today's complaints, Continuance of care, Re-evaluation by your physician. - Problem is new. - Symptoms have improved. Signatures: Dispatcher [employer] Anastasia Pablo RN RN iw Roszak, Josh, PA PA jr8 Alba Tucker RN RN [facility] Guera Mccarty MD MD ma2 Corrections: (The following items were deleted from the chart) 17:37 16:50 05/02/2019 16:50 Discharged to Home. Impression: Anxiety disorder due to known rb1 physiological condition; Major depressive disorder, recurrent. Condition is Stable. Forms are Medication Reconciliation Form, Thank You Letter, Antibiotic Education, Prescription Opioid Use. Follow up: Private Physician; When: As needed; Reason: Recheck today's complaints, Continuance of care, Re-evaluation by your physician. Problem is new. Symptoms have improved. jr8
[2019-05-02 17:58] VITALS: BP 126/87; TEMP 98.5; O2SAT 99
--- NOTE | 2019-05-03 07:40 | EKG ---
Test Date: 2019-05-02 Test Time: 15:07:42 Agile Project Manager: SAGE MEASUREMENT RESULTS: Intervals: Rate: 58 CO: 150 QRSD: 82 QT: 402 QTc: 394 [place]: P: 32 CO: 150 QRS: 65 T: 43 INTERPRETIVE STATEMENTS: Sinus bradycardia Otherwise normal ECG Compared to ECG 03/30/2019 13:02:10 Sinus arrhythmia no longer present Electronically Signed On 05-03-19 07:38:09 CDT by Rocky Sutton
== END 2019-05-02 17:37 | disposition home or self-care (01) ==
LOC: ER 14:08
DX: F06.4 Anxiety disorder due to known physiological condition (principal); F33.9 Major depressive disorder, recurrent, unspecified; F17.210 Nicotine dependence, cigarettes, uncomplicated
CPT/HCPCS: 36415; 80048; 80076; 80307; 80320; 81003; 81025; 85025; 93005; 99284

== ENCOUNTER 2019-05-22 19:53 | Emergency (ER) | payer SELFPAY ==
[2019-05-22] MEDS ORDERED: PEN G BENZ LA 2.4 MU/4 ML SYRINGE IM ONE (21:24)
[2019-05-22] MEDS ORDERED: KETOROLAC 30 MG/ML INJ ONE (21:24)
--- NOTE | 2019-05-22 21:47 | EDPHYS ---
Physician Documentation [facility] Name: Natasha Spann Age: 34 yrs Sex: Female : 1985 Arrival Date: 05/22/2019 Time: 19:57 Bed 30 Private MD: ED Physician Basil Dove HPI: 05/23 01:41 This 34 yrs old Female presents to ER via Ambulatory with complaints of snw Toothache. 01:41 The patient presents with pain. The problem is located in the lower left cuspid. Onset: snw The symptoms/episode began/occurred suddenly, yesterday. Duration: The symptoms are continuous. Associated signs and symptoms: The patient has no apparent associated signs or symptoms. Severity of symptoms: At their worst the symptoms were moderate. The patient has experienced similar episodes in the past. goes to the [facility] "when i have the money". 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:36 LMP 05/10/2019 hb Historical: - Allergies: 20:36 Levofloxacin; hb 20:36 Wellbutrin; hb 20:36 bupropion HCl; hb - Home Meds: 20:36 trazodone 150 mg Oral tab 1 tab night prn [Active]; aripiprazole 15 mg Oral tab 1 tab hb nightly [Active]; duloxetine 30 mg Oral cpDR 1 cap once daily [Active]; hydroxyzine HCl 25 mg Oral tab 4 times per day [Active]; propranolol 20 mg Oral tab 1 tab 2 times per day [Active]; - PMHx: 20:36 ADD/ADHD; Anxiety; Bipolar disorder; Endometrosis; Depression; Gastric Reflux; MRSA; hb Ovarian cyst; osteomylitis; UTI; - PSHx: 20:36 BKA; hb - Immunization history:: Adult Immunizations up to date. - Social history:: Smoking status: Patient uses tobacco products, smokes one-half pack cigarettes per day, Patient/guardian denies using alcohol, street drugs. - Ebola Screening: : Patient negative for fever greater than or equal to 101.5 degrees Fahrenheit, and additional compatible Ebola Virus Disease symptoms Patient denies exposure to infectious person Patient denies travel to an Ebola-affected area in the 21 days before illness onset. ROS: 05/23 01:41 Constitutional: Negative for fever, chills, and weight loss, Eyes: Negative for injury, snw pain, redness, and discharge, Neck: Negative for injury, pain, and swelling, Cardiovascular: Negative for chest pain, palpitations, and edema, Respiratory: Negative for shortness of breath, cough, wheezing, and pleuritic chest pain, Abdomen/GI: Negative for abdominal pain, nausea, vomiting, diarrhea, and constipation, Back: Negative for injury and pain, : Negative for injury, bleeding, discharge, and swelling, MS/Extremity: Negative for injury and deformity, Skin: Negative for injury, rash, and discoloration, Neuro: Negative for headache, weakness, numbness, tingling, and seizure. ENT: Positive for dental pain. Exam: 01:39 Constitutional: This is a well developed, well nourished patient who is awake, alert, snw and in no acute distress. Head/Face: Normocephalic, atraumatic. Eyes: Pupils equal round and reactive to light, extra-ocular motions intact. Lids and lashes normal. Conjunctiva and sclera are non-icteric and not injected. Cornea within normal limits. Periorbital areas with no swelling, redness, or edema. Neck: Trachea midline, no thyromegaly or masses palpated, and no cervical lymphadenopathy. Supple, full range of motion without nuchal rigidity, or vertebral point tenderness. No Meningismus. Chest/axilla: Normal chest wall appearance and motion. Nontender with no deformity. No lesions are appreciated. Cardiovascular: Regular rate and rhythm with a normal S1 and S2. No gallops, murmurs, or rubs. Normal PMI, no JVD. No pulse deficits. Respiratory: Lungs have equal breath sounds bilaterally, clear to auscultation and percussion. No rales, rhonchi or wheezes noted. No increased work of breathing, no retractions or nasal flaring. Abdomen/GI: Soft, non-tender, with normal bowel sounds. No distension or tympany. No guarding or rebound. No evidence of tenderness throughout. Back: No spinal tenderness. No costovertebral tenderness. Full range of motion. Skin: Warm, dry with normal turgor. Normal color with no rashes, no lesions, and no evidence of cellulitis. Neuro: Awake and alert, GCS 15, oriented to person, place, time, and situation. Cranial nerves II-XII grossly intact. Motor strength 5/5 in all extremities. Sensory grossly intact. Cerebellar exam normal. Normal gait. Psych: Awake, alert, with orientation to person, place and time. Behavior, mood, and affect are within normal limits. 01:39 Musculoskeletal/extremity: hx of amputation. 01:41 ENT: Mouth: is normal, Dental exam: widespread dental decay. snw Vital Signs: 05/22 20:36 BP 134 / 80; Pulse 64; Resp 18; Temp 98.3; Pulse Ox 97% ; Weight 90.72 kg; Height 5 ft. hb 8 in. (172.72 cm); Pain 9/10; 20:36 Body Mass Index 30.41 (90.72 kg, 172.72 cm) hb MDM: 21:02 Patient medically screened. snw 05/23 01:40 Data reviewed: vital signs, nurses notes. Data interpreted: Pulse oximetry: on room air snw is 97 %. Interpretation: normal. Counseling: I had a detailed discussion with the patient and/or guardian regarding: the historical points, exam findings, and any diagnostic results supporting the discharge/admit diagnosis, the presence of at least one elevated blood pressure reading (>120/80) during this emergency department visit, the need for outpatient follow up, to return to the emergency department if symptoms worsen or persist or if there are any questions or concerns that arise at home. Response to treatment: There is no appreciated change of the patient's symptoms at this time. Special discussion: Based on the history and exam findings, there is no indication for further emergent testing or inpatient evaluation. I discussed with the patient/guardian the need to see a dentist for further evaluation of the symptoms. Administered Medications: 05/22 21:29 Drug: Bicillin L-A 2.4 million units Route: IM; Site: right ventrogluteal; tr5 21:29 Drug: TORadol 30 mg Route: IM; Site: right ventrogluteal; tr5 Disposition: 05/23 05:12 Co-signature as Attending Physician, Basil Dove MD Available for consultation at ps1 all times . Disposition: 05/22/19 21:16 Discharged to Home. Impression: Dental caries, Dental pain. - Condition is Stable. - Discharge Instructions: Dental Caries, Adult, Dental Pain, Diet and Dental Disease, Preventive Dental Care, Adult. - Prescriptions for Mobic 7.5 mg Oral Tablet - take 1 tablet by ORAL route once daily take with food; 20 tablet. - Medication Reconciliation Form, Thank You Letter, Antibiotic Education, Prescription Opioid Use form. - Follow up: Emergency Department; When: As needed; Reason: Worsening of condition. Follow up: Private Physician; When: 1 - 2 days; Reason: Recheck today's complaints, Continuance of care. Signatures: Marley Lei, OPERATIONS AGENT-C OPERATIONS AGENT-Csnw Vania Kilgore, RN RN Basil Dove MD MD ps1 Balaji Roberts RN RN tr5 Corrections: (The following items were deleted from the chart) 05/22 21:40 21:16 05/22/2019 21:16 Discharged to Home. Impression: Dental caries; Dental pain. tr5 Condition is Stable. Forms are Medication Reconciliation Form, Thank You Letter, Antibiotic Education, Prescription Opioid Use. Follow up: Emergency Department; When: As needed; Reason: Worsening of condition. Follow up: Private Physician; When: 1 - 2 days; Reason: Recheck today's complaints, Continuance of care. snw
--- NOTE | 2019-05-22 21:47 | ER ---
Nurse's Notes [facility] Name: Natasha Spann Age: 34 yrs Sex: Female : 1985 Arrival Date: 05/22/2019 Time: 19:57 Bed 30 Private MD: Diagnosis: Dental caries;Dental pain Presentation: 05/22 20:32 Presenting complaint: Patient states: Tooth pain started few days ago, but got worst hb yesterday. Pt has unable to follow up with a dentist. Patient describes pain in the left side. Transition of care: patient was not received from another setting of care. Onset of symptoms is unknown. Risk Assessment: Do you want to hurt yourself or someone else? Patient reports no desire to harm self or others. Initial Sepsis Screen: Does the patient meet any 2 criteria? No. Patient's initial sepsis screen is negative. Does the patient have a suspected source of infection? No. Patient's initial sepsis screen is negative. Care prior to arrival: None. 20:32 Method Of Arrival: Ambulatory hb 20:32 Acuity: EMILY 4 hb Triage Assessment: 21:00 General: Appears uncomfortable. tr5 21:40 EENT: Reports. 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 hb Historical: - Allergies: 20:36 Levofloxacin; hb 20:36 Wellbutrin; hb 20:36 bupropion HCl; hb - Home Meds: 20:36 trazodone 150 mg Oral tab 1 tab night prn [Active]; aripiprazole 15 mg Oral tab 1 tab hb nightly [Active]; duloxetine 30 mg Oral cpDR 1 cap once daily [Active]; hydroxyzine HCl 25 mg Oral tab 4 times per day [Active]; propranolol 20 mg Oral tab 1 tab 2 times per day [Active]; - PMHx: 20:36 ADD/ADHD; Anxiety; Bipolar disorder; Endometrosis; Depression; Gastric Reflux; MRSA; hb Ovarian cyst; osteomylitis; UTI; - PSHx: 20:36 BKA; hb - Immunization history:: Adult Immunizations up to date. - Social history:: Smoking status: Patient uses tobacco products, smokes one-half pack cigarettes per day, Patient/guardian denies using alcohol, street drugs. - Ebola Screening: : Patient negative for fever greater than or equal to 101.5 degrees Fahrenheit, and additional compatible Ebola Virus Disease symptoms Patient denies exposure to infectious person Patient denies travel to an Ebola-affected area in the 21 days before illness onset. Screenin:00 Abuse screen: Denies threats or abuse. Nutritional screening: No deficits noted. tr5 Tuberculosis screening: No symptoms or risk factors identified. Fall Risk None identified. Assessment: 21:00 General: Appears uncomfortable, Behavior is calm, cooperative, appropriate for age. tr5 Pain: Complains of pain in left jaw Pain does not radiate. Pain currently is 10 out of 10 on a pain scale. Quality of pain is described as aching. Neuro: Level of Consciousness is awake, alert, obeys commands, Oriented to person, place, time. Cardiovascular: Heart tones present Capillary refill < 3 seconds Pulses are all present. Edema is absent. Respiratory: Airway is patent Respiratory effort is even, unlabored, Respiratory pattern is regular, symmetrical. GI: No signs and/or symptoms were reported involving the gastrointestinal system. : No signs and/or symptoms were reported regarding the genitourinary system. EENT: Poor dentition noted. Derm: No signs and/or symptoms reported regarding the dermatologic system. Musculoskeletal: No signs and/or symptoms reported regarding the musculoskeletal system. Vital Signs: 20:36 BP 134 / 80; Pulse 64; Resp 18; Temp 98.3; Pulse Ox 97% ; Weight 90.72 kg; Height 5 ft. hb 8 in. (172.72 cm); Pain 9/10; 20:36 Body Mass Index 30.41 (90.72 kg, 172.72 cm) hb ED Course: 19:57 Patient arrived in ED. cf2 20:34 Triage completed. hb 20:38 Arm band placed on right wrist. Patient placed in waiting room, on pulse oximetry, hb Patient notified of wait time. 20:49 Marley Lei FNP-C is [facility]. snw 20:49 Basil Dove MD is Attending Physician. snw 20:52 Balaji Roberts RN is Primary Nurse. tr5 21:00 Bed in low position. Call light in reach. tr5 21:39 No provider procedures requiring assistance completed. Patient did not have IV access tr5 during this emergency room visit. Administered Medications: 21:29 Drug: Bicillin L-A 2.4 million units Route: IM; Site: right ventrogluteal; tr5 21:29 Drug: TORadol 30 mg Route: IM; Site: right ventrogluteal; tr5 Outcome: 21:16 Discharge ordered by . edward 21:39 Discharged to home ambulatory. tr5 21:39 Condition: stable 21:39 Discharge instructions given to patient, Instructed on discharge instructions, follow up and referral plans. medication usage, Demonstrated understanding of instructions, follow-up care, medications, Prescriptions given X 1. 21:40 Patient left the ED. tr5 Signatures: Marley Lei, U.S. SENATOR-C U.S. SENATOR-Csnw Vania Kilgore RN RN Balaji Roberts RN RN tr5 Yamilka Macario2
[2019-05-22 22:12] VITALS: BP 134/80; TEMP 98.3; O2SAT 97
== END 2019-05-22 21:40 | disposition home or self-care (01) ==
LOC: ER 19:53
DX: K02.9 Dental caries, unspecified (principal); F90.9 Attention-deficit hyperactivity disorder, unspecified type; F32.9 Major depressive disorder, single episode, unspecified; Z88.3 Allergy status to other anti-infective agents; Z88.8 Allergy status to other drugs, medicaments and biological substances
CPT/HCPCS: 96372; 99283; J0561

== ENCOUNTER 2019-06-11 16:38 | Emergency (ER) | payer SELFPAY ==
--- NOTE | 2019-06-11 17:37 | ER ---
Nurse's Notes [facility] Name: Natasha Spann Age: 34 yrs Sex: Female : 1985 Arrival Date: 06/11/2019 Time: 16:39 Bed 17 Private MD: Diagnosis: Radiculopathy, lumbosacral region Presentation: 06/11 16:55 Presenting complaint: Patient states: Pain in right buttocks radiating down leg, la1 tingling in toes for the last few months but worse the last few days, pt states she is helping her aunt move and lifting heavy objects. Transition of care: patient was not received from another setting of care. Onset of symptoms was June 11, 2019. Risk Assessment: Do you want to hurt yourself or someone else? Patient reports no desire to harm self or others. Initial Sepsis Screen: Does the patient meet any 2 criteria? No. Patient's initial sepsis screen is negative. Does the patient have a suspected source of infection? No. Patient's initial sepsis screen is negative. Care prior to arrival: None. 16:55 Method Of Arrival: Ambulatory la1 16:55 Acuity: EMILY 4 la1 Triage Assessment: 17:00 General: Appears in no apparent distress. comfortable, obese, Behavior is cooperative, bp appropriate for age, anxious. Pain: Complains of pain in RIGHT leg. 17:00 EENT: No deficits noted. Neuro: No deficits noted. Cardiovascular: No deficits noted. bp Respiratory: No deficits noted. GI: No signs and/or symptoms were reported involving the gastrointestinal system. : No signs and/or symptoms were reported regarding the genitourinary system. Derm: No deficits noted. Musculoskeletal: No deficits noted. Historical: - Allergies: 16:57 Levofloxacin; la1 16:57 bupropion HCl; la1 16:57 Wellbutrin; la1 - PMHx: 16:57 ADD/ADHD; Anxiety; Bipolar disorder; Depression; Endometrosis; Gastric Reflux; MRSA; la1 osteomylitis; Ovarian cyst; UTI; - Immunization history:: Adult Immunizations up to date. - Social history:: Smoking status: Patient uses tobacco products, smokes one pack cigarettes per day. - Ebola Screening: : No symptoms or risks identified at this time. - Family history:: not pertinent. - Hospitalizations: : No recent hospitalization is reported. Screenin:06 Abuse screen: Denies threats or abuse. Denies injuries from another. Nutritional bp screening: No deficits noted. Tuberculosis screening: No symptoms or risk factors identified. Fall Risk None identified. Assessment: 17:00 General: SEE TRIAGE NOTE. bp 17:52 Reassessment: PT D/C HOME AMBULATORY WITH FAMILY, DX WITH RADICULOPATHY. bp Vital Signs: 16:57 BP 135 / 89; Pulse 82; Resp 16; Temp 97.2; Pulse Ox 100% on R/A; Weight 90.72 kg; la1 Height 5 ft. 8 in. (172.72 cm); 17:52 BP 133 / 78; Pulse 81; Resp 16; Temp 97.5; Pulse Ox 99% ; bp 16:57 Body Mass Index 30.41 (90.72 kg, 172.72 cm) la1 ED Course: 16:39 Patient arrived in ED. as 16:56 Triage completed. la1 16:57 Arm band placed on right wrist. la1 17:05 Sabas Michael, RN is Primary Nurse. bp 17:06 Patient has correct armband on for positive identification. Bed in low position. Call bp light in reach. Side rails up X2. Adult w/ patient. 17:21 Gregor Santo MD is Attending Physician. rn 17:52 No provider procedures requiring assistance completed. Patient did not have IV access bp during this emergency room visit. Administered Medications: No medications were administered Outcome: 17:36 Discharge ordered by . rn 17:53 Discharged to home ambulatory, with family. bp 17:53 Condition: stable 17:53 Discharge instructions given to patient, Instructed on discharge instructions, follow up and referral plans. medication usage, Demonstrated understanding of instructions, follow-up care, medications, Prescriptions given X 2. 17:53 Patient left the ED. bp Signatures: Hailey Yadav Roman, MD MD rn Attema, Lee, RN RN la Sabas Michael, JONY RN bp Corrections: (The following items were deleted from the chart) 17:06 17:00 Pain: Complains of pain in left leg bp bp
--- NOTE | 2019-06-11 17:37 | EDPHYS ---
Physician Documentation [facility] Name: Natasha Spann Age: 34 yrs Sex: Female : 1985 Arrival Date: 06/11/2019 Time: 16:39 Bed 17 Private MD: ED Physician Gregor Santo HPI: 06/11 17:30 This 34 yrs old Female presents to ER via Ambulatory with complaints of Hip rn Pain, Leg Pain. 17:30 The patient or guardian reports pain. 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 The patient is able to bear their full body weight. The patient's discomfort radiates to the right leg. The complaints affect the right leg. Onset: The symptoms/episode began/occurred 2 month(s) ago. Modifying factors: The symptoms are alleviated by nothing, the symptoms are aggravated by movement, lifting. Severity of symptoms: At their worst the symptoms were moderate, in the emergency department the symptoms are unchanged. The patient has experienced similar episodes in the past. REports 2 months of right lower back and buttocks pain, radiates down right leg, electrical and tingling, worse lately because lifting of in middle of a move. No new trauma. + chronic back issues. NO bowel/bladder changes or weakness. . Historical: - Allergies: 16:57 Levofloxacin; la1 16:57 bupropion HCl; la1 16:57 Wellbutrin; la1 - PMHx: 16:57 ADD/ADHD; Anxiety; Bipolar disorder; Depression; Endometrosis; Gastric Reflux; MRSA; la1 osteomylitis; Ovarian cyst; UTI; - Immunization history:: Adult Immunizations up to date. - Social history:: Smoking status: Patient uses tobacco products, smokes one pack cigarettes per day. - Ebola Screening: : No symptoms or risks identified at this time. - Family history:: not pertinent. - Hospitalizations: : No recent hospitalization is reported. ROS: 17:30 Constitutional: Negative for fever, chills, and weight loss, Neck: Negative for injury, rn pain, and swelling, Cardiovascular: Negative for chest pain, palpitations, and edema, Respiratory: Negative for shortness of breath, cough, wheezing, and pleuritic chest pain, Abdomen/GI: Negative for abdominal pain, nausea, vomiting, diarrhea, and constipation, Back: + low back pain MS/Extremity: Negative for injury and deformity, Neuro: Negative for headache, weakness, and seizure. Exam: 17:30 Constitutional: This is a well developed, well nourished patient who is awake, alert, rn sitting upright in bed Back: No spinal tenderness. No costovertebral tenderness. Full range of motion. Skin: Warm, dry with normal turgor. Normal color with no rashes, no lesions, and no evidence of cellulitis. MS/ Extremity: No cyanosis. Strong right distal pulses. + left prosthetic lower leg. Neurovascular intact. Full, normal range of motion. + straight leg raise of right leg. Vital Signs: 16:57 BP 135 / 89; Pulse 82; Resp 16; Temp 97.2; Pulse Ox 100% on R/A; Weight 90.72 kg; la1 Height 5 ft. 8 in. (172.72 cm); 17:52 BP 133 / 78; Pulse 81; Resp 16; Temp 97.5; Pulse Ox 99% ; bp 16:57 Body Mass Index 30.41 (90.72 kg, 172.72 cm) la1 MDM: 17:21 Patient medically screened. rn 17:30 Differential diagnosis: strain, sciatica, radiculopathy. Data reviewed: vital signs, rn nurses notes, and as a result, I will discharge patient. Counseling: I had a detailed discussion with the patient and/or guardian regarding: the historical points, exam findings, and any diagnostic results supporting the discharge/admit diagnosis, the need for outpatient follow up, to return to the emergency department if symptoms worsen or persist or if there are any questions or concerns that arise at home. Special discussion: I discussed with the patient/guardian in detail that at this point there is no indication for admission to the hospital. It is understood, however, that if the symptoms persist or worsen the patient needs to return immediately for re-evaluation. Based on the history and exam findings, there is no indication for further emergent testing or inpatient evaluation. I discussed with the patient/guardian the need to see the back specialist for further evaluation of the symptoms. 17:30 ED course: No signs of cord compression, chronic back pain with 2 months of symptoms, rn will treat as radiculopathy and dc with muscle relaxer and steroids. . Administered Medications: No medications were administered Disposition: 06/11/19 17:36 Discharged to Home. Impression: Radiculopathy, lumbosacral region. - Condition is Stable. - Discharge Instructions: Lumbosacral Radiculopathy, Back Exercises, [id number]. - Prescriptions for Cyclobenzaprine 10 mg Oral Tablet - take 1 tablet by ORAL route every 8 hours As needed; 20 tablet. Medrol (Mc) 4 mg Oral Tablets, Dose Pack - take 1 tablet by ORAL route as directed - follow package instructions; 1 packet. - Medication Reconciliation Form, Thank You Letter, Antibiotic Education, Prescription Opioid Use form. - Follow up: Private Physician; When: As needed; Reason: Recheck today's complaints, Re-evaluation by your physician. - Problem is an ongoing problem. - Symptoms have improved. Signatures: Gregor Santo MD MD rn Salvador Ramirez RN RN la1 Sabas Michael RN RN bp Corrections: (The following items were deleted from the chart) 17:53 17:36 06/11/2019 17:36 Discharged to Home. Impression: Radiculopathy, lumbosacral bp region. Condition is Stable. Forms are Medication Reconciliation Form, Thank You Letter, Antibiotic Education, Prescription Opioid Use. Follow up: Private Physician; When: As needed; Reason: Recheck today's complaints, Re-evaluation by your physician. Problem is an ongoing problem. Symptoms have improved. rn
[2019-06-11 18:20] VITALS: BP 133/78; TEMP 97.5; O2SAT 99
== END 2019-06-11 17:53 | disposition home or self-care (01) ==
LOC: ER 16:38
DX: M54.17 Radiculopathy, lumbosacral region (principal); F17.210 Nicotine dependence, cigarettes, uncomplicated; Z88.1 Allergy status to other antibiotic agents; Z88.8 Allergy status to other drugs, medicaments and biological substances
CPT/HCPCS: 99282

== ENCOUNTER 2019-06-26 23:05 | Emergency (ER) | payer SELFPAY ==
[2019-06-26 23:53] LABS: Urine Specific Gravity 1.015 (1.005-1.030)
[2019-06-26 23:53] LABS: Urine Blood NEGATIVE (NEG); Urine Glucose NEGATIVE (NEG); Urine Protein NEGATIVE (NEG); Urine Specific Gravity 1.015 (1.005-1.030)
[2019-06-27 00:12] LABS: Urine Bacteria <20 /HPF (<20); Urine Culture Reflex Order NOT NEEDED; Urine RBC NONE SEEN /HPF (NONE SEEN)
[2019-06-27 00:56] LABS: Absolute Lymphocytes (CBC) 4.1 K/uL (0.7-4.9); Basophils % 0.8 % (0-1.3); Hematocrit 39.8 % (36.0-45.0); Lymphocytes % 34.4 % (15.3-44.8); MPV 8.3 fL (7.6-11.3); RBC Red Blood Cell Count 4.38 M/uL (3.86-4.86)
[2019-06-27 01:04] LABS: BUN Blood Urea Nitrogen 6 mg/dL (7-18); Bicarbonate 26 mmol/L (21-32); Glucose Level 98 mg/dL (74-106); Potassium 3.9 mmol/L (3.5-5.1); Sodium Level 139 mmol/L (136-145)
--- NOTE | 2019-06-27 02:46 | EDPHYS ---
Physician Documentation [facility] Name: Natasha Spann Age: 34 yrs Sex: Female : 1985 Arrival Date: 06/26/2019 Time: 23:08 Bed 17 Private MD: ED Physician Gregor Santo HPI: 06/26 23:52 This 34 yrs old Female presents to ER via Ambulatory with complaints of rn Abdominal Pain. 23:52 The patient presents with abdominal pain in the lower abdomen. Onset: The rn symptoms/episode began/occurred today. The symptoms do not radiate. Associated signs and symptoms: Pertinent positives: dysuria, Pertinent negatives: blood in stools, chest pain, constipation, diarrhea, fever, hematuria, shortness of breath, vaginal discharge. The symptoms are described as crampy, dull. Modifying factors: The symptoms are alleviated by nothing, the symptoms are aggravated by touching the area. Severity of pain: At its worst the pain was moderate in the emergency department the pain has improved. The patient has not experienced similar symptoms in the past. Reports lower abd pain, began today, no fever/diarrhea, reports increased urinary frequency, also not sure if she is . Reports pressure in pelvis similar to when had miscarriage. . 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:32 LMP 05/22/2019 mg2 Historical: - Allergies: 23:31 bupropion HCl; mg2 23:31 Levofloxacin; mg2 23:31 Wellbutrin; mg2 - Home Meds: 23:31 aripiprazole 15 mg Oral tab 1 tab nightly [Active]; duloxetine 30 mg Oral cpDR 1 cap mg2 once daily [Active]; hydroxyzine HCl 25 mg Oral tab 4 times per day [Active]; propranolol 20 mg Oral tab 1 tab 2 times per day [Active]; trazodone 150 mg Oral tab 1 tab night prn [Active]; - PMHx: 23:31 ADD/ADHD; Anxiety; Depression; Bipolar disorder; Endometrosis; Gastric Reflux; MRSA; mg2 osteomylitis; Ovarian cyst; UTI; - Immunization history:: Flu vaccine is not up to date. - Social history:: Smoking status: Patient uses tobacco products, smokes one pack cigarettes per day. Patient uses alcohol, only on a social basis. street drugs, marijuana. - Ebola Screening: : No symptoms or risks identified at this time. - Family history:: not pertinent. - Hospitalizations: : No recent hospitalization is reported. ROS: 23:52 Constitutional: Negative for fever, chills, and weight loss, Eyes: Negative for injury, rn pain, redness, and discharge, Neck: Negative for injury, pain, and swelling, Cardiovascular: Negative for chest pain, palpitations, and edema, Respiratory: Negative for shortness of breath, cough, wheezing, and pleuritic chest pain, Abdomen/GI: Negative for abdominal pain, diarrhea, and constipation, Back: Negative for injury and pain, : Negative for injury, bleeding, discharge, and swelling, MS/Extremity: Negative for injury and deformity, Neuro: Negative for headache, weakness, numbness, tingling, and seizure. Exam: 23:52 Constitutional: This is a well developed, well nourished patient who is awake, alert, rn and in no acute distress. Sitting upright in bed. Head/Face: Normocephalic, atraumatic. Eyes: Pupils equal round and reactive to light, extra-ocular motions intact. Lids and lashes normal. Conjunctiva and sclera are non-icteric and not injected. Cornea within normal limits. Periorbital areas with no swelling, redness, or edema. ENT: MMM Cardiovascular: Regular rate and rhythm. No pulse deficits. Respiratory: No increased work of breathing, no retractions or nasal flaring. Speaking full sentences Abdomen/GI: soft, mild suprapubic tenderness Skin: Warm, dry with normal turgor. Normal color with no rashes, no lesions, and no evidence of cellulitis. Vital Signs: 23:30 Pulse 78; Resp 18; Temp 97.5; Pulse Ox 100% on R/A; Weight 94.35 kg; Height 5 ft. 8 in. mg2 (172.72 cm); Pain 3/10; 23:32 BP 127 / 89; mg2 06/27 00:30 BP 114 / 68; Pulse 74; Resp 18; Pulse Ox 99% on R/A; wh 01:55 BP 103 / 56; Pulse 73; Resp 18; Pulse Ox 98% on R/A; wh 02:53 BP 103 / 47; Pulse 60; Resp 18; Pulse Ox 96% on R/A; wh 06/26 23:30 Body Mass Index 31.63 (94.35 kg, 172.72 cm) mg2 MDM: 06/26 23:35 Patient medically screened. rn 06/27 02:44 Differential diagnosis: diverticulitis, Ectopic , non-specific abd pain, rn Pyelonephritis, Ureterolithiasis, urinary tract infection. Data reviewed: vital signs, nurses notes, lab test result(s), radiologic studies, CT scan, and as a result, I will discharge patient. Counseling: I had a detailed discussion with the patient and/or guardian regarding: the historical points, exam findings, and any diagnostic results supporting the discharge/admit diagnosis, lab results, radiology results, the need for outpatient follow up, to return to the emergency department if symptoms worsen or persist or if there are any questions or concerns that arise at home. Response to treatment: the patient's symptoms have markedly improved after treatment, and as a result, I will discharge patient. Special discussion: Based on the patient's Hx, exam, and Dx evaluation, there is no indication for emergent surgery or inpatient Tx. It is understood by the patient/guardian that if the Sx's persist or worsen they need to return immediately for re-evaluation. I discussed with the patient/guardian in detail that at this point there is no indication for admission to the hospital. It is understood, however, that if the symptoms persist or worsen the patient needs to return immediately for re-evaluation. 06/26 23:40 Order name: Basic Metabolic Panel; Complete Time: 01:43 rn 06/26 23:40 Order name: CBC with Diff; Complete Time: 01:02 rn 06/26 23:40 Order name: Creatinine for Radiology; Complete Time: 01:43 rn 06/26 23:40 Order name: Urine Microscopic Only; Complete Time: 00:19 rn 06/26 23:47 Order name: Urine Dipstick--Ancillary (enter results); Complete Time: 00:19 ds4 06/26 23:49 Order name: Urine --Ancillary (enter results); Complete Time: 00:19 ds4 06/26 23:40 Order name: Labs collected and sent; Complete Time: 00:29 rn 06/26 23:40 Order name: Urine Test (obtain specimen); Complete Time: 23:43 rn 06/26 23:40 Order name: Urine Dipstick-Ancillary (obtain specimen); Complete Time: 23:43 rn 06/27 01:02 Order name: CT Stone Protocol rn Administered Medications: No medications were administered Disposition: 06/27/19 02:45 Discharged to Home. Impression: Lower abdominal pain, unspecified. - Condition is Stable. - Discharge Instructions: Abdominal Pain, Adult. - Medication Reconciliation Form, Thank You Letter, Antibiotic Education, Prescription Opioid Use form. - Follow up: Private Physician; When: As needed; Reason: Recheck today's complaints, Re-evaluation by your physician. - Problem is new. - Symptoms have improved. Signatures: Dispatcher [employer] EDMS Gregor Santo MD MD rn Mireya Gonzales Ayaz Cast RN RN mg2 Corrections: (The following items were deleted from the chart) 02:54 02:45 06/27/2019 02:45 Discharged to Home. Impression: Lower abdominal pain, wh unspecified. Condition is Stable. Forms are Medication Reconciliation Form, Thank You Letter, Antibiotic Education, Prescription Opioid Use. Follow up: Private Physician; When: As needed; Reason: Recheck today's complaints, Re-evaluation by your physician. Problem is new. Symptoms have improved. rn
--- NOTE | 2019-06-27 02:46 | ER ---
Nurse's Notes [facility] Name: Natasha Spann Age: 34 yrs Sex: Female : 1985 Arrival Date: 06/26/2019 Time: 23:08 Bed 17 Private MD: Diagnosis: Lower abdominal pain, unspecified Presentation: 06/26 23:28 Presenting complaint: Patient states: i am late on my period for a week now and my mg2 stomach hurts today. i am concern that i could be /ectopic like what happened to me last year. Transition of care: patient was not received from another setting of care. Onset of symptoms was June 2019. Risk Assessment: Do you want to hurt yourself or someone else? Patient reports no desire to harm self or others. Initial Sepsis Screen: Does the patient meet any 2 criteria? No. Patient's initial sepsis screen is negative. Does the patient have a suspected source of infection? No. Patient's initial sepsis screen is negative. Care prior to arrival: None. 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 LMP 05/22/2019 mg2 Historical: - Allergies: 23:31 bupropion HCl; mg2 23:31 Levofloxacin; mg2 23:31 Wellbutrin; mg2 - Home Meds: 23:31 aripiprazole 15 mg Oral tab 1 tab nightly [Active]; duloxetine 30 mg Oral cpDR 1 cap mg2 once daily [Active]; hydroxyzine HCl 25 mg Oral tab 4 times per day [Active]; propranolol 20 mg Oral tab 1 tab 2 times per day [Active]; trazodone 150 mg Oral tab 1 tab night prn [Active]; - PMHx: 23:31 ADD/ADHD; Anxiety; Depression; Bipolar disorder; Endometrosis; Gastric Reflux; MRSA; mg2 osteomylitis; Ovarian cyst; UTI; - Immunization history:: Flu vaccine is not up to date. - Social history:: Smoking status: Patient uses tobacco products, smokes one pack cigarettes per day. Patient uses alcohol, only on a social basis. street drugs, marijuana. - Ebola Screening: : No symptoms or risks identified at this time. - Family history:: not pertinent. - Hospitalizations: : No recent hospitalization is reported. Screenin/07 00:05 Abuse screen: Denies threats or abuse. Denies injuries from another. Nutritional wh screening: No deficits noted. Tuberculosis screening: No symptoms or risk factors identified. Fall Risk None identified. Assessment: 00:01 General: Appears in no apparent distress. Behavior is calm, cooperative, appropriate wh for age. Pain: Complains of pain in abdomen Pain does not radiate. Pain currently is 4 out of 10 on a pain scale. Quality of pain is described as aching, Pain began 1 day ago. Neuro: Level of Consciousness is awake, alert, obeys commands, Oriented to person, place, time, situation, Appropriate for age. Cardiovascular: Heart tones S1 S2. Respiratory: Airway is patent Respiratory effort is even, unlabored, Respiratory pattern is regular, symmetrical. GI: Abdomen is flat, non-distended, Bowel sounds present X 4 quads. Abd is soft and non tender X 4 quads. Reports abd pain. : No signs and/or symptoms were reported regarding the genitourinary system. EENT: No signs and/or symptoms were reported regarding the EENT system. Derm: Skin is intact, is healthy with good turgor, Skin is pink, warm \T\ dry. normal. Musculoskeletal: Amputation of left leg. 01:52 Reassessment: Patient appears in no apparent distress at this time. No changes from previously documented assessment. Patient and/or family updated on plan of care and expected duration. Pain level reassessed. Patient is alert, oriented x 3, equal unlabored respirations, skin warm/dry/pink. 02:52 Reassessment: Patient appears in no apparent distress at this time. No changes from previously documented assessment. Patient and/or family updated on plan of care and expected duration. Pain level reassessed. Patient is alert, oriented x 3, equal unlabored respirations, skin warm/dry/pink. Patient denies pain at this time. Vital Signs: 06/26 23:30 Pulse 78; Resp 18; Temp 97.5; Pulse Ox 100% on R/A; Weight 94.35 kg; Height 5 ft. 8 in. mg2 (172.72 cm); Pain 3/10; 23:32 BP 127 / 89; mg2 06/27 00:30 BP 114 / 68; Pulse 74; Resp 18; Pulse Ox 99% on R/A; wh 01:55 BP 103 / 56; Pulse 73; Resp 18; Pulse Ox 98% on R/A; 02:53 BP 103 / 47; Pulse 60; Resp 18; Pulse Ox 96% on R/A; 06/26 23:30 Body Mass Index 31.63 (94.35 kg, 172.72 cm) mg2 ED Course: 06/26 23:08 Patient arrived in ED. cl3 23:30 Triage completed. mg2 23:32 Arm band placed on. mg2 23:35 Gregor Santo MD is Attending Physician. rn 23:42 Mireya Gonzales is Primary Nurse. 06/27 00:05 Patient has correct armband on for positive identification. Bed in low position. Call light in reach. Side rails up X 1. Pulse ox on. NIBP on. 00:30 Missed attempt(s): 22 gauge in right antecubital area. Bleeding controlled, band aid wh applied, catheter tip intact. 01:56 CT Stone Protocol In Process Unspecified. EDMS 02:28 CT completed. Patient tolerated procedure well. Patient moved to CT via wheelchair. Patient moved back from CT. 02:53 No provider procedures requiring assistance completed. Patient did not have IV access during this emergency room visit. Administered Medications: No medications were administered Outcome: 02:45 Discharge ordered by . rn 02:53 Discharged to home ambulatory. 02:53 Condition: stable 02:53 Discharge instructions given to patient, Instructed on discharge instructions, follow up and referral plans. POC Abd Pain Demonstrated understanding of instructions, follow-up care, POC 02:54 Patient left the ED. Signatures: Dispatcher [employer] EDMS Elan Clark Gregor Santo MD MD rn Habalo, Winsy Ayaz Cast RN RN mg2 Lewis, Charde cl3
[2019-06-27 03:15] VITALS: TEMP 97.5
[2019-06-27 03:19] VITALS: BP 103/47; O2SAT 96
--- NOTE | 2019-06-27 11:58 | RAD REPORT ---
EXAM DESCRIPTION: CT Abdomen and Pelvis Without Intravenous Contrast CLINICAL HISTORY: The patient is 34 years old and is Female; ABD PAIN TECHNIQUE: Axial computed tomography images of the abdomen and pelvis without intravenous contrast. Sagittal and coronal reformatted images were created and reviewed. This CT exam was performed usi ng one or more of the following dose reduction techniques: automated exposure control, adjustment o f the mA and/or kV according to patient size, and/or use of iterative reconstruction technique. COMPARISON: CT of the abdomen and pelvis February 04, 2019. FINDINGS: LUNG BASES: Unremarkable. No mass. No consolidation. ABDOMEN: LIVER: Homogeneous without focal mass. GALLBLADDER AND BILE DUCTS: The gallbladder is not well distended. PANCREAS: Unremarkable. No ductal dilation. SPLEEN: Unremarkable. ADRENALS: Unremarkable. No mass. KIDNEYS AND URETERS: No obstructing stones. No hydronephrosis. No perinephric fluid. STOMACH AND BOWEL: The stomach is minimally distended. The small bowel is relatively normal in c aliber. A moderate amount stool is present throughout the colon. There is no mucosal thickening or ev idence of bowel obstruction. PELVIS: APPENDIX: The appendix is normal in caliber without surrounding inflammation. BLADDER: The bladder is well distended. No stones. REPRODUCTIVE: Unremarkable as visualized. ABDOMEN and PELVIS: INTRAPERITONEAL SPACE: Unremarkable. No free air. No significant fluid collection. BONES/JOINTS: No acute fracture. SOFT TISSUES: The soft tissues are normal. VASCULATURE: Unremarkable. No abdominal aortic aneurysm. LYMPH NODES: Unremarkable. No enlarged lymph nodes. IMPRESSION: No acute findings on this noncontrasted CT of the abdomen and pelvis to explain the juan antonio ent's symptoms. Electronically signed by: Dayanara Philip MD 06/27/2019 2:01 AM [employer]GE[employer] Due to temporary technical issues with the PACS/Fluency reporting system, reports are being signed by the in house radiologist as a courtesy to ensure prompt reporting. The interpreting radiologist is f ully responsible for the content of the report.
--- OUTSIDE RECORDS SUMMARY | 2019-07-01 02:27 | XMS REPORT ---
:1985 Author Organization [facility] Address [address] [place] [address] Care Team Providers Name Role Phone JOYCE FOLEY Unavailable Unavailable Problems This patient has no known problems. Allergies, Adverse Reactions, Alerts This patient has no known allergies or adverse reactions. Medications This patient has no known medications. Encounters Start End Encounter Admission Attending Care Care Encounter Date/Time Date/Time Type Type Clinicians Facility Department ID 2017-04-09 2017-04-09 Emergency [facility] [id number] 00:00:00 00:00:00 2017-04-09 2017-04-09 Emergency [facility] [id number] 00:00:00 00:00:00 2017-04-08 2017-04-08 Emergency [facility] [id number] 22:35:00 22:35:00 2017-04-08 2017-04-08 [facility] [id number] 00:00:00 00:00:00 Results Test Description Test Time Test Comments Text Results Atomic Results Result Comments HEMOGLOBIN A1C 2017-07-16 13:26:00 Test Item Value Reference Range Comments HEMOGLOBIN A1C (BEAKER) (test aaez=439) 5.2 % 4.3-6.1 CBC W/PLT COUNT & AUTO [id number] 09:42:00 Test Item Value Reference Range Comments WHITE BLOOD CELL COUNT (BEAKER) (test aftx=163) 8.3 K/ L 3.5-10.5 RED BLOOD CELL COUNT (BEAKER) (test tfwm=511) 3.47 M/ L 3.93-5.22 HEMOGLOBIN (BEAKER) (test ozwz=207) 10.3 GM/DL 11.2-15.7 HEMATOCRIT (BEAKER) (test xrwk=371) 32.8 % 34.1-44.9 MEAN CORPUSCULAR VOLUME (BEAKER) (test qapt=667) 94.5 fL 79.4-94.8 MEAN CORPUSCULAR HEMOGLOBIN (BEAKER) (test 29.7 pg 25.6-32.2 dqza=986) MEAN CORPUSCULAR HEMOGLOBIN CONC (BEAKER) (test 31.4 GM/DL 32.2-35.5 yzko=994) RED CELL DISTRIBUTION WIDTH (BEAKER) (test 13.1 % 11.7-14.4 musv=978) PLATELET COUNT (BEAKER) (test qmcc=012) 284 K/CU MM 150-450 MEAN PLATELET VOLUME (BEAKER) (test geks=189) 9.7 fL 9.4-12.3 NUCLEATED RED BLOOD CELLS (BEAKER) (test 0 /100 WBC 0-0 agyt=264) IMMATURE GRANULOCYTES-RELATIVE PERCENT (BEAKER) 0 % 0-1 (test vait=4609) (MANUAL DIFFERENTIAL)2017-07-16 09:42:00 Test Item Value Reference Range Comments NEUTROPHILS - REL (DIFF) (BEAKER) (test omfo=3377) 36 % LYMPHOCYTES - REL (DIFF) (BEAKER) (test jnwh=8079) 53 % MONOCYTES - REL (DIFF) (BEAKER) (test bkjx=6669) 4 % EOSINOPHILS - REL (DIFF) (BEAKER) (test ying=2021) 2 % BASOPHILS - REL (DIFF) (BEAKER) (test rkzf=4256) 2 % ATYPICAL LYMPHOCYTE - REL (DIFF) (BEAKER) (test 3 % 0-0 yqbm=255) NEUTROPHILS - ABS (DIFF) (BEAKER) (test vhwa=9954) 2.99 K/ L 1.80-8.00 LYMPHOCYTES - ABS (DIFF) (BEAKER) (test nxoe=5174) 4.40 K/ L 1.48-4.50 MONOCYTES - ABS (DIFF) (BEAKER) (test epmo=9687) 0.33 K/ L 0.00-1.30 EOSINOPHILS - ABS (DIFF) (BEAKER) (test akyn=7920) 0.17 K/ L 0.00-0.50 BASOPHILS - ABS (DIFF) (BEAKER) (test ajhh=8980) 0.17 K/ L 0.00-0.20 ATYPICAL LYMPHOCYTES - ABS (DIFF) (BEAKER) (test 0.25 K/ L 0.00-0.00 vhas=821) TOTAL COUNTED (BEAKER) (test dzcc=6936) 100 WBC MORPHOLOGY (BEAKER) (test uodx=107) Normal PLT MORPHOLOGY (BEAKER) (test aryx=034) Normal RBC MORPHOLOGY (BEAKER) (test mnnq=336) Normal [id number] 07:11:00 Test Item Value Reference Range Comments MAGNESIUM (BEAKER) (test rmar=052) 1.5 mg/dL 1.6-2.6 BASIC METABOLIC [id number] 07:11:00 Test Item Value Reference Range Comments SODIUM (BEAKER) (test 140 meq/L 136-145 szgi=929) POTASSIUM (BEAKER) (test 3.6 meq/L 3.5-5.1 yveg=895) CHLORIDE (BEAKER) (test 119 meq/L 98-107 stpu=601) CO2 (BEAKER) (test 16 meq/L 22-29 qbcu=556) BLOOD UREA NITROGEN 7 mg/dL 7-21 (BEAKER) (test rcbn=623) CREATININE (BEAKER) (test 0.59 mg/dL 0.57-1.25 woem=573) GLUCOSE RANDOM (BEAKER) 89 mg/dL 70-105 (test abal=715) CALCIUM (BEAKER) (test 8.3 mg/dL 8.4-10.2 avan=515) EGFR (BEAKER) (test 118 mL/min/1.73 sq m ESTIMATED GFR IS NOT bfvu=1124) ACCURATE CREATININE CLEARANCE IN PREDICTING GLOMERULAR FILTRATION RATE. ESTIMATED GFR IS NOT APPLICABLE FOR DIALYSIS PATIENTS. LIPID [id number] 07:11:00 Test Item Value Reference Range Comments TRIGLYCERIDES (BEAKER) (test rbpf=969) 75 mg/dL CHOLESTEROL (BEAKER) (test ynut=401) 173 mg/dL HDL CHOLESTEROL (BEAKER) (test wpiw=052) 33 mg/dL LDL CHOLESTEROL CALCULATED (BEAKER) (test 125 mg/dL gkzy=932) Triglyceride Reference Range: Low Risk <150 Borderline 150- 199 High Risk 200-499 Very High Risk >=500Cholesterol Reference Range: Low Risk <200 Borderline 200-239 High Risk > 240HDL Cholesterol Reference Range: Low Risk >=60 High Risk <40LDL Cholesterol Reference Range: Optimal <100 Near Optimal 100-129 Borderline 130-159 High 160-189 Very High >=190TROPONIN [id number] 06:34:00 Test Item Value Reference Range Comments TROPONIN I (KRISTI) (test ovyy=848) < ng/mL 0.00-0.03 Troponin I (TnI) levels [...] acidosis, acute neurological disease, and persistent tachyarrhythmia.TROPONIN [id number] 23:58:00 Test Item Value Reference Range Comments TROPONIN I (BEPETER) (test bwhf=543) < ng/mL 0.00-0.03 Troponin I (TnI) levels [...]
== END 2019-06-27 02:54 | disposition home or self-care (01) ==
LOC: ER 23:05
DX: R10.30 Lower abdominal pain, unspecified (principal); F41.9 Anxiety disorder, unspecified; F32.9 Major depressive disorder, single episode, unspecified; F90.9 Attention-deficit hyperactivity disorder, unspecified type; F17.210 Nicotine dependence, cigarettes, uncomplicated; Z88.1 Allergy status to other antibiotic agents; Z88.6 Allergy status to analgesic agent; Z88.8 Allergy status to other drugs, medicaments and biological substances
CPT/HCPCS: 36415; 74176; 76377; 80048; 81003; 81015; 81025; 85025; 99284

== ENCOUNTER 2019-08-04 10:53 | Emergency (ER) | payer SELFPAY ==
--- OUTSIDE RECORDS SUMMARY | 2019-08-04 10:55 | XMS REPORT ---
:1985 [facility] Address [address] [place] [address] Care Team Providers Name Role Phone JOYCE FOLEY Unavailable Unavailable Problems This patient has no known problems. Allergies, Adverse Reactions, Alerts This patient has no known allergies or adverse reactions. Medications This patient has no known medications. Encounters Start End Encounter Admission Attending Care Care Encounter Date/Time Date/Time Type Type Clinicians Facility Department ID 2017-04-09 2017-04-[address] [facility] [id number] 00:00:00 00:00:00 2017-04-09 2017-04-[address] [facility] [id number] 00:00:00 00:00:00 2017-04-08 2017-04-08 [facility] [id number] 22:35:00 22:35:00 2017-04-08 2017-04-08 [facility] [id number] 00:00:00 00:00:00 Results Test Description Test Time Test Comments Text Results Atomic Results Result Comments HEMOGLOBIN A1C 2017-07-16 13:26:00 Test Item Value Reference Range Comments HEMOGLOBIN A1C (BEAKER) (test yglp=883) 5.2 % 4.3-6.1 CBC W/PLT COUNT & AUTO [id number] 09:42:00 Test Item Value Reference Range Comments WHITE BLOOD CELL COUNT (BEAKER) (test ykqd=160) 8.3 K/ L 3.5-10.5 RED BLOOD CELL COUNT (BEAKER) (test ndqq=009) 3.47 M/ L 3.93-5.22 HEMOGLOBIN (BEAKER) (test nxrz=636) 10.3 GM/DL 11.2-15.7 HEMATOCRIT (BEAKER) (test wulo=183) 32.8 % 34.1-44.9 MEAN CORPUSCULAR VOLUME (BEAKER) (test rsnu=008) 94.5 fL 79.4-94.8 MEAN CORPUSCULAR HEMOGLOBIN (BEAKER) (test 29.7 pg 25.6-32.2 lcun=619) MEAN CORPUSCULAR HEMOGLOBIN CONC (BEAKER) (test 31.4 GM/DL 32.2-35.5 lkes=365) RED CELL DISTRIBUTION WIDTH (BEAKER) (test 13.1 % 11.7-14.4 mrlv=446) PLATELET COUNT (BEAKER) (test utqq=876) 284 K/CU MM 150-450 MEAN PLATELET VOLUME (BEAKER) (test kaxl=169) 9.7 fL 9.4-12.3 NUCLEATED RED BLOOD CELLS (BEAKER) (test 0 /100 WBC 0-0 qszt=737) IMMATURE GRANULOCYTES-RELATIVE PERCENT (BEAKER) 0 % 0-1 (test qxze=0972) (MANUAL DIFFERENTIAL)2017-07-16 09:42:00 Test Item Value Reference Range Comments NEUTROPHILS - REL (DIFF) (BEAKER) (test mppw=4699) 36 % LYMPHOCYTES - REL (DIFF) (BEAKER) (test akov=3331) 53 % MONOCYTES - REL (DIFF) (BEAKER) (test gqsj=5828) 4 % EOSINOPHILS - REL (DIFF) (BEAKER) (test isko=0531) 2 % BASOPHILS - REL (DIFF) (BEAKER) (test jqws=9931) 2 % ATYPICAL LYMPHOCYTE - REL (DIFF) (BEAKER) (test 3 % 0-0 aodu=582) NEUTROPHILS - ABS (DIFF) (BEAKER) (test whco=5750) 2.99 K/ L 1.80-8.00 LYMPHOCYTES - ABS (DIFF) (BEAKER) (test hntv=2698) 4.40 K/ L 1.48-4.50 MONOCYTES - ABS (DIFF) (BEAKER) (test cdhs=4426) 0.33 K/ L 0.00-1.30 EOSINOPHILS - ABS (DIFF) (BEAKER) (test nylr=5179) 0.17 K/ L 0.00-0.50 BASOPHILS - ABS (DIFF) (BEAKER) (test yigt=5735) 0.17 K/ L 0.00-0.20 ATYPICAL LYMPHOCYTES - ABS (DIFF) (BEAKER) (test 0.25 K/ L 0.00-0.00 buvt=517) TOTAL COUNTED (BEAKER) (test auka=8715) 100 WBC MORPHOLOGY (BEAKER) (test sjzo=616) Normal PLT MORPHOLOGY (BEAKER) (test qelg=984) Normal RBC MORPHOLOGY (BEAKER) (test pdji=868) Normal [id number] 07:11:00 Test Item Value Reference Range Comments MAGNESIUM (BEAKER) (test aocj=028) 1.5 mg/dL 1.6-2.6 BASIC METABOLIC [id number] 07:11:00 Test Item Value Reference Range Comments SODIUM (BEAKER) (test 140 meq/L 136-145 cpwq=629) POTASSIUM (BEAKER) (test 3.6 meq/L 3.5-5.1 ugrk=440) CHLORIDE (BEAKER) (test 119 meq/L 98-107 yjlz=606) CO2 (BEAKER) (test 16 meq/L 22-29 gjqv=028) BLOOD UREA NITROGEN 7 mg/dL 7-21 (BEAKER) (test vspd=424) CREATININE (BEAKER) (test 0.59 mg/dL 0.57-1.25 epvy=697) GLUCOSE RANDOM (BEAKER) 89 mg/dL 70-105 (test tzzt=328) CALCIUM (BEAKER) (test 8.3 mg/dL 8.4-10.2 kokh=117) EGFR (BEAKER) (test 118 mL/min/1.73 sq m ESTIMATED GFR IS NOT lzcg=8007) ACCURATE CREATININE CLEARANCE IN PREDICTING GLOMERULAR FILTRATION RATE. ESTIMATED GFR IS NOT APPLICABLE FOR DIALYSIS PATIENTS. LIPID [id number] 07:11:00 Test Item Value Reference Range Comments TRIGLYCERIDES (BEAKER) (test lzpm=447) 75 mg/dL CHOLESTEROL (BEAKER) (test kwgm=985) 173 mg/dL HDL CHOLESTEROL (BEAKER) (test yisz=235) 33 mg/dL LDL CHOLESTEROL CALCULATED (BEAKER) (test 125 mg/dL anyb=783) Triglyceride Reference Range: Low Risk <150 Borderline 150- 199 High Risk 200-499 Very High Risk >=500Cholesterol Reference Range: Low Risk <200 Borderline 200-239 High Risk > 240HDL Cholesterol Reference Range: Low Risk >=60 High Risk <40LDL Cholesterol Reference Range: Optimal <100 Near Optimal 100-129 Borderline 130-159 High 160-189 Very High >=190TROPONIN [id number] 06:34:00 Test Item Value Reference Range Comments TROPONIN I (KRISTI) (test obcf=284) < ng/mL 0.00-0.03 Troponin I (TnI) levels [...] acidosis, acute neurological disease, and persistent tachyarrhythmia.TROPONIN [id number] 23:58:00 Test Item Value Reference Range Comments TROPONIN I (BEPETER) (test wgng=096) < ng/mL 0.00-0.03 Troponin I (TnI) levels [...]
--- NOTE | 2019-08-04 12:35 | RAD REPORT ---
EXAM DESCRIPTION: RAD - Chest Pa And Lat (2 Views) - 08/04/2019 12:03 pm CLINICAL HISTORY: positive mantoux skin test COMPARISON: Portable chest November 2018 TECHNIQUE: PA and lateral views of the chest were obtained. FINDINGS: The lungs are clear of infiltrate, mass or focal scarring change. No mediastinal or hilar lymphadenopathy identifiable. Heart size is normal and central vasculature is within normal limits. No pleural effusion or pneumothorax seen. No acute bony finding noted. No aortic abnormality. IMPRESSION: No acute cardiopulmonary process. No change from prior imaging. No evidence for current or prior TB infection.
--- NOTE | 2019-08-04 12:42 | ER ---
Nurse's Notes [facility] Name: Natasha Spann Age: 34 yrs Sex: Female : 1985 Arrival Date: 08/04/2019 Time: 10:54 Bed 20 Private MD: Diagnosis: Encounter for screening for respiratory tuberculosis Presentation: 08/04 11:04 Presenting complaint: Patient states: "I had a TB test done on Monday and then went to [facility] today and the said it's positive.". Transition of care: patient was not received from another setting of care. Onset of symptoms was August 04, 2019. Risk Assessment: Do you want to hurt yourself or someone else? Patient reports no desire to harm self or others. Initial Sepsis Screen: Does the patient meet any 2 criteria? No. Patient's initial sepsis screen is negative. Does the patient have a suspected source of infection? No. Patient's initial sepsis screen is negative. Care prior to arrival: None. 11:04 Method Of Arrival: Ambulatory [facility] 11:04 Acuity: EMILY 4 jl7 Triage Assessment: 11:09 General: Appears in no apparent distress. uncomfortable, Behavior is calm, cooperative, jl7 appropriate for age. Pain: Denies pain. 11:23 General: Appears in no apparent distress. comfortable, Behavior is calm, cooperative, bp appropriate for age. Pain: Denies pain. EENT: No deficits noted. Neuro: No deficits noted. Cardiovascular: No deficits noted. Respiratory: No deficits noted. GI: No signs and/or symptoms were reported involving the gastrointestinal system. : No signs and/or symptoms were reported regarding the genitourinary system. Derm: No deficits noted. Musculoskeletal: No deficits noted. 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 Historical: - Allergies: 11:09 Wellbutrin; jl7 11:09 Levofloxacin; jl7 11:09 bupropion HCl; jl7 - Home Meds: 11:09 aripiprazole 15 mg Oral tab 1 tab nightly [Active]; duloxetine 30 mg Oral cpDR 1 cap jl7 once daily [Active]; hydroxyzine HCl 25 mg Oral tab 4 times per day [Active]; propranolol 20 mg Oral tab 1 tab 2 times per day [Active]; trazodone 150 mg Oral tab 1 tab night prn [Active]; Cogentin Oral [Active]; - PMHx: 11:09 ADD/ADHD; Bipolar disorder; Depression; Endometrosis; Gastric Reflux; MRSA; jl7 osteomylitis; Ovarian cyst; UTI; Anxiety; - PSHx: 11:09 Left BKA; jl7 - Immunization history:: Adult Immunizations not up to date. - Social history:: Smoking status: Patient uses tobacco products, smokes one pack cigarettes per day. - Ebola Screening: : No symptoms or risks identified at this time. Screenin:24 Abuse screen: Denies threats or abuse. Denies injuries from another. Nutritional bp screening: No deficits noted. Tuberculosis screening: No symptoms or risk factors identified. Fall Risk None identified. Assessment: 11:24 General: SEE TRIAGE NOTE. bp 12:07 Reassessment: PT RETURNED FROM RADIOLOGY. bp 13:08 Reassessment: PT D/C HOME AMBULATORY, DX WITH RESPIRATORY TB SCREENING. bp Vital Signs: 11:09 BP 137 / 81; Pulse 62; Resp 17 S; Temp 98.3(O); Pulse Ox 97% on R/A; Weight 92.99 kg jl7 (R); Height 5 ft. 8 in. (172.72 cm) (R); Pain 0/10; 12:08 BP 123 / 83; Pulse 64; Resp 14; Temp 97.8(TE); Pulse Ox 99% on R/A; mh5 13:08 BP 127 / 85; Pulse 67; Resp 16; Temp 98; Pulse Ox 99% ; bp 11:09 Body Mass Index 31.17 (92.99 kg, 172.72 cm) jl7 ED Course: 10:54 Patient arrived in ED. as 11:07 Triage completed. jl7 11:09 Arm band placed on right wrist. jl7 11:13 Sabas Michael, JNOY is Primary Nurse. bp 11:13 Jamal Rodas NP is PHCP. pm1 11:13 Ole Epstein MD is Attending Physician. pm1 11:24 Patient has correct armband on for positive identification. Bed in low position. Call bp light in reach. Side rails up X2. Adult w/ patient. 12:02 Chest Pa And Lat (2 Views) XRAY In Process Unspecified. EDMS 12:10 Pulse ox on. NIBP on. mh5 13:08 No provider procedures requiring assistance completed. Patient did not have IV access bp during this emergency room visit. Administered Medications: No medications were administered Outcome: 12:41 Discharge ordered by . pm1 13:08 Discharged to home ambulatory. bp 13:08 Condition: stable 13:08 Discharge instructions given to patient, Instructed on discharge instructions, follow up and referral plans. Demonstrated understanding of instructions, follow-up care. 13:09 Patient left the ED. bp Signatures: Dispatcher [employer] EDHailey Mahoney Patrick, NP TOP SPOTTER pm1 Guilelrmina Yadav [facility] Steffany Colvin, RN RN jl7 Sabas Michael RN RN bp
--- NOTE | 2019-08-04 12:42 | EDPHYS ---
Physician Documentation [facility] Name: Natasha Spann Age: 34 yrs Sex: Female : 1985 Arrival Date: 08/04/2019 Time: 10:54 Bed 20 Private MD: ED Physician Ole Epstein HPI: 08/04 11:28 This 34 yrs old Female presents to ER via Ambulatory with complaints of pm1 Positive mantoux test. 11:28 Patient went to [facility] and told that she has a positive Mantoux test. pm1 [facility] wanted to perform a chest X-ray but patient was not able to pay for it. Patient without fever, fatigue, weight loss, cough, night sweats, decreased appetite. The patient has been recently seen at an urgent care, today, for similar complaints. 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 jl7 Historical: - Allergies: 11:09 Wellbutrin; jl7 11:09 Levofloxacin; jl7 11:09 bupropion HCl; jl7 - Home Meds: 11:09 aripiprazole 15 mg Oral tab 1 tab nightly [Active]; duloxetine 30 mg Oral cpDR 1 cap jl7 once daily [Active]; hydroxyzine HCl 25 mg Oral tab 4 times per day [Active]; propranolol 20 mg Oral tab 1 tab 2 times per day [Active]; trazodone 150 mg Oral tab 1 tab night prn [Active]; Cogentin Oral [Active]; - PMHx: 11:09 ADD/ADHD; Bipolar disorder; Depression; Endometrosis; Gastric Reflux; MRSA; jl7 osteomylitis; Ovarian cyst; UTI; Anxiety; - PSHx: 11:09 Left BKA; jl7 - Immunization history:: Adult Immunizations not up to date. - Social history:: Smoking status: Patient uses tobacco products, smokes one pack cigarettes per day. - Ebola Screening: : No symptoms or risks identified at this time. ROS: 11:28 Constitutional: Negative for fever, chills, and weight loss, Eyes: Negative for injury, pm1 pain, redness, and discharge, ENT: Negative for injury, pain, and discharge, Neck: Negative for injury, pain, and swelling, Cardiovascular: Negative for chest pain, palpitations, and edema, Respiratory: Negative for shortness of breath, cough, wheezing, and pleuritic chest pain, Abdomen/GI: Negative for abdominal pain, nausea, vomiting, diarrhea, and constipation, Back: Negative for injury and pain, MS/Extremity: Negative for injury and deformity, Skin: Negative for injury, rash, and discoloration, Neuro: Negative for headache, weakness, numbness, tingling, and seizure. Exam: 11:28 Constitutional: This is a well developed, well nourished patient who is awake, alert, pm1 and in no acute distress. Head/Face: Normocephalic, atraumatic. Eyes: Pupils equal round and reactive to light, extra-ocular motions intact. Lids and lashes normal. Conjunctiva and sclera are non-icteric and not injected. Cornea within normal limits. Periorbital areas with no swelling, redness, or edema. ENT: Nares patent. No nasal discharge, no septal abnormalities noted. Tympanic membranes are normal and external auditory canals are clear. Oropharynx with no redness, swelling, or masses, exudates, or evidence of obstruction, uvula midline. Mucous membranes moist. Neck: Trachea midline, no thyromegaly or masses palpated, and no cervical lymphadenopathy. Supple, full range of motion without nuchal rigidity, or vertebral point tenderness. No Meningismus. Chest/axilla: Normal chest wall appearance and motion. Nontender with no deformity. No lesions are appreciated. Cardiovascular: Regular rate and rhythm with a normal S1 and S2. No gallops, murmurs, or rubs. Normal PMI, no JVD. No pulse deficits. Respiratory: Lungs have equal breath sounds bilaterally, clear to auscultation and percussion. No rales, rhonchi or wheezes noted. No increased work of breathing, no retractions or nasal flaring. Abdomen/GI: Soft, non-tender, with normal bowel sounds. No distension or tympany. No guarding or rebound. No evidence of tenderness throughout. Back: No spinal tenderness. No costovertebral tenderness. Full range of motion. Skin: Warm, dry with normal turgor. Normal color with no rashes, no lesions, and no evidence of cellulitis. 11:28 Musculoskeletal/extremity: Extremities: grossly normal except: left below knee amputation. 11:28 Neuro: Orientation: is normal, Motor: is normal, moves all fours, Sensation: is normal, no obvious gross deficits. Vital Signs: 11:09 BP 137 / 81; Pulse 62; Resp 17 S; Temp 98.3(O); Pulse Ox 97% on R/A; Weight 92.99 kg jl7 (R); Height 5 ft. 8 in. (172.72 cm) (R); Pain 0/10; 12:08 BP 123 / 83; Pulse 64; Resp 14; Temp 97.8(TE); Pulse Ox 99% on R/A; mh5 13:08 BP 127 / 85; Pulse 67; Resp 16; Temp 98; Pulse Ox 99% ; bp 11:09 Body Mass Index 31.17 (92.99 kg, 172.72 cm) jl7 MDM: 11:15 Patient medically screened. [facility] 12:38 Data reviewed: vital signs. Data interpreted: Pulse oximetry: on room air is 99 %. pm1 Interpretation: normal. Counseling: I had a detailed discussion with the patient and/or guardian regarding: the historical points, exam findings, and any diagnostic results supporting the discharge/admit diagnosis, radiology results, the need for outpatient follow up, to return to the emergency department if symptoms worsen or persist or if there are any questions or concerns that arise at home. 08/04 11:20 Order name: Chest Pa And Lat (2 Views) XRAY; Complete Time: 12:42 pm1 Administered Medications: No medications were administered Disposition: 08/05 10:27 Co-signature as Attending Physician, Ole Epstein MD I agree with the assessment and [facility] plan of care. Disposition: 08/04/19 12:41 Discharged to Home. Impression: Encounter for screening for respiratory tuberculosis. - Condition is Stable. - Medication Reconciliation Form, Thank You Letter, Antibiotic Education, Prescription Opioid Use form. - Follow up: Emergency Department; When: As needed; Reason: Worsening of condition. Follow up: Private Physician; When: 2 - 3 days; Reason: Recheck today's complaints, Continuance of care, Re-evaluation by your physician. - Problem is new. - Symptoms have improved. Signatures: Dispatcher [employer] Ole Alejandre MD MD cha Marinas, Patrick, ARBORIST REPRESENTATIVE ARBORIST REPRESENTATIVE pm1 Steffany Colvin RN RN jl7 Sabas Michael RN RN bp Corrections: (The following items were deleted from the chart) 08/04 13:09 12:41 08/04/2019 12:41 Discharged to Home. Impression: Encounter for screening for bp respiratory tuberculosis. Condition is Stable. Forms are Medication Reconciliation Form, Thank You Letter, Antibiotic Education, Prescription Opioid Use. Follow up: Emergency Department; When: As needed; Reason: Worsening of condition. Follow up: Private Physician; When: 2 - 3 days; Reason: Recheck today's complaints, Continuance of care, Re-evaluation by your physician. Problem is new. Symptoms have improved. pm1
[2019-08-04 13:45] VITALS: O2SAT 99
[2019-08-04 13:47] VITALS: BP 127/85; TEMP 98
== END 2019-08-04 13:09 | disposition home or self-care (01) ==
LOC: ER 10:53
DX: Z11.1 Encounter for screening for respiratory tuberculosis (principal); F31.9 Bipolar disorder, unspecified; F17.210 Nicotine dependence, cigarettes, uncomplicated; Z88.3 Allergy status to other anti-infective agents; Z88.8 Allergy status to other drugs, medicaments and biological substances
CPT/HCPCS: 71046; 99283

== ENCOUNTER 2019-09-02 17:25 | Emergency (ER) | payer SELFPAY ==
--- OUTSIDE RECORDS SUMMARY | 2019-09-02 17:28 | XMS REPORT ---
:1985 [facility] Address [address] [place] [address] Care Team Providers Name Role Phone JOYCE FOLEY Unavailable Unavailable Problems This patient has no known problems. Allergies, Adverse Reactions, Alerts This patient has no known allergies or adverse reactions. Medications This patient has no known medications. Encounters Start End Encounter Admission Attending Care Care Encounter Date/Time Date/Time Type Type Clinicians Facility Department ID 2017-04-09 2017-04-09 Emergency [facility] [id number] 00:00:00 00:00:00 2017-04-09 2017-04-09 Emergency [facility] [id number] 00:00:00 00:00:00 2017-04-08 2017-04-08 Emergency [facility] [id number] 22:35:00 22:35:00 2017-04-08 2017-04-08 [facility] [id number] 00:00:00 00:00:00 Results Test Description Test Time Test Comments Text Results Atomic Results Result Comments HEMOGLOBIN A1C 2017-07-16 13:26:00 Test Item Value Reference Range Comments HEMOGLOBIN A1C (BEAKER) (test vjjw=158) 5.2 % 4.3-6.1 CBC W/PLT COUNT & AUTO [id number] 09:42:00 Test Item Value Reference Range Comments WHITE BLOOD CELL COUNT (BEAKER) (test mtce=062) 8.3 K/ L 3.5-10.5 RED BLOOD CELL COUNT (BEAKER) (test skoe=243) 3.47 M/ L 3.93-5.22 HEMOGLOBIN (BEAKER) (test bkxd=187) 10.3 GM/DL 11.2-15.7 HEMATOCRIT (BEAKER) (test ijxk=970) 32.8 % 34.1-44.9 MEAN CORPUSCULAR VOLUME (BEAKER) (test rvmb=737) 94.5 fL 79.4-94.8 MEAN CORPUSCULAR HEMOGLOBIN (BEAKER) (test 29.7 pg 25.6-32.2 phpl=466) MEAN CORPUSCULAR HEMOGLOBIN CONC (BEAKER) (test 31.4 GM/DL 32.2-35.5 yhpk=570) RED CELL DISTRIBUTION WIDTH (BEAKER) (test 13.1 % 11.7-14.4 xrzi=414) PLATELET COUNT (BEAKER) (test dqrm=359) 284 K/CU MM 150-450 MEAN PLATELET VOLUME (BEAKER) (test unjc=241) 9.7 fL 9.4-12.3 NUCLEATED RED BLOOD CELLS (BEAKER) (test 0 /100 WBC 0-0 wxjc=108) IMMATURE GRANULOCYTES-RELATIVE PERCENT (BEAKER) 0 % 0-1 (test jsms=3025) (MANUAL DIFFERENTIAL)2017-07-16 09:42:00 Test Item Value Reference Range Comments NEUTROPHILS - REL (DIFF) (BEAKER) (test regn=2541) 36 % LYMPHOCYTES - REL (DIFF) (BEAKER) (test xkjb=5212) 53 % MONOCYTES - REL (DIFF) (BEAKER) (test iefw=7898) 4 % EOSINOPHILS - REL (DIFF) (BEAKER) (test uohk=7237) 2 % BASOPHILS - REL (DIFF) (BEAKER) (test qwpq=8257) 2 % ATYPICAL LYMPHOCYTE - REL (DIFF) (BEAKER) (test 3 % 0-0 thsn=940) NEUTROPHILS - ABS (DIFF) (BEAKER) (test rqhh=8703) 2.99 K/ L 1.80-8.00 LYMPHOCYTES - ABS (DIFF) (BEAKER) (test nxup=9603) 4.40 K/ L 1.48-4.50 MONOCYTES - ABS (DIFF) (BEAKER) (test cdzo=6267) 0.33 K/ L 0.00-1.30 EOSINOPHILS - ABS (DIFF) (BEAKER) (test ghpp=8322) 0.17 K/ L 0.00-0.50 BASOPHILS - ABS (DIFF) (BEAKER) (test jmzp=1610) 0.17 K/ L 0.00-0.20 ATYPICAL LYMPHOCYTES - ABS (DIFF) (BEAKER) (test 0.25 K/ L 0.00-0.00 fshb=192) TOTAL COUNTED (BEAKER) (test uric=4620) 100 WBC MORPHOLOGY (BEAKER) (test outf=356) Normal PLT MORPHOLOGY (BEAKER) (test yrca=137) Normal RBC MORPHOLOGY (BEAKER) (test ztfj=137) Normal [id number] 07:11:00 Test Item Value Reference Range Comments MAGNESIUM (BEAKER) (test sfnz=922) 1.5 mg/dL 1.6-2.6 BASIC METABOLIC [id number] 07:11:00 Test Item Value Reference Range Comments SODIUM (BEAKER) (test 140 meq/L 136-145 dckl=982) POTASSIUM (BEAKER) (test 3.6 meq/L 3.5-5.1 dguv=284) CHLORIDE (BEAKER) (test 119 meq/L 98-107 gcco=072) CO2 (BEAKER) (test 16 meq/L 22-29 iqle=403) BLOOD UREA NITROGEN 7 mg/dL 7-21 (BEAKER) (test elyn=792) CREATININE (BEAKER) (test 0.59 mg/dL 0.57-1.25 uzrd=991) GLUCOSE RANDOM (BEAKER) 89 mg/dL 70-105 (test maah=468) CALCIUM (BEAKER) (test 8.3 mg/dL 8.4-10.2 vkrb=715) EGFR (BEAKER) (test 118 mL/min/1.73 sq m ESTIMATED GFR IS NOT yhll=0753) ACCURATE CREATININE CLEARANCE IN PREDICTING GLOMERULAR FILTRATION RATE. ESTIMATED GFR IS NOT APPLICABLE FOR DIALYSIS PATIENTS. LIPID [id number] 07:11:00 Test Item Value Reference Range Comments TRIGLYCERIDES (BEAKER) (test nepz=677) 75 mg/dL CHOLESTEROL (BEAKER) (test wkpq=008) 173 mg/dL HDL CHOLESTEROL (BEAKER) (test qstk=962) 33 mg/dL LDL CHOLESTEROL CALCULATED (BEAKER) (test 125 mg/dL xgcq=396) Triglyceride Reference Range: Low Risk <150 Borderline 150- 199 High Risk 200-499 Very High Risk >=500Cholesterol Reference Range: Low Risk <200 Borderline 200-239 High Risk > 240HDL Cholesterol Reference Range: Low Risk >=60 High Risk <40LDL Cholesterol Reference Range: Optimal <100 Near Optimal 100-129 Borderline 130-159 High 160-189 Very High >=190TROPONIN [id number] 06:34:00 Test Item Value Reference Range Comments TROPONIN I (KRISTI) (test jndr=613) < ng/mL 0.00-0.03 Troponin I (TnI) levels [...] acidosis, acute neurological disease, and persistent tachyarrhythmia.TROPONIN [id number] 23:58:00 Test Item Value Reference Range Comments TROPONIN I (BEPETER) (test cktk=726) < ng/mL 0.00-0.03 Troponin I (TnI) levels [...]
[2019-09-02] MEDS ORDERED: ASPIRIN 81 MG CHEWABLE TABLET ONE (18:23)
[2019-09-02 18:35] LABS: Absolute Lymphocytes (CBC) 4.6 K/uL (0.7-4.9); Basophils % 0.8 % (0-1.3); Hematocrit 39.2 % (36.0-45.0); Lymphocytes % 42.6 % (15.3-44.8); Protime INR 0.95; RBC Red Blood Cell Count 4.24 M/uL (3.86-4.86)
[2019-09-02 19:08] LABS: ALT/SGPT 24 U/L (12-78); AST/SGOT 12 U/L (15-37); Albumin 3.6 g/dL (3.4-5.0); Alkaline Phosphatase 67 U/L (45-117); BUN Blood Urea Nitrogen 8 mg/dL (7-18); Bicarbonate 25 mmol/L (21-32); Bilirubin Direct < 0.1 mg/dL (0-0.2); Bilirubin Total 0.1 mg/dL (0.2-1.0); Glucose Level 96 mg/dL (74-106); Magnesium 1.9 mg/dL (1.8-2.4); NT PRO-BNP 57 pg/mL (<125); Potassium 3.9 mmol/L (3.5-5.1); Protein, Total 6.9 g/dL (6.4-8.2); Sodium Level 140 mmol/L (136-145); Troponin (Emerg Dept Use Only) < 0.02 ng/mL (0.0-0.045)
--- NOTE | 2019-09-02 19:18 | RAD REPORT ---
EXAM DESCRIPTION: RAD - Chest Single View - 09/02/2019 6:33 pm CLINICAL HISTORY: Back pain, chest pain COMPARISON: July 2019 TECHNIQUE: AP portable chest image was obtained 1829 hours . FINDINGS: Lungs are clear. Heart and vasculature are normal. No measurable pleural effusion and no p neumothorax. No acute bony abnormality seen. No acute aortic findings suspected. IMPRESSION: No acute cardiopulmonary process. No identifiable changes from July 2019.
--- NOTE | 2019-09-02 19:23 | EDPHYS ---
Physician Documentation [facility] Name: Natasha Spann Age: 34 yrs Sex: Female : 1985 Arrival Date: 09/02/2019 Time: 17:29 Bed 8 Private MD: Reed Hung E ED Physician Fran Gee HPI: 09/02 18:27 This 34 yrs old Female presents to ER via Ambulatory with complaints of Back jr8 Pain, Chest Pain. 18:27 The patient or guardian reports chest pain that is located primarily in the substernal jr8 area. The pain radiates to back. Associated signs and symptoms: The patient has no apparent associated signs or symptoms. The chest pain is described as a pressure, sharp. Duration: The patient or guardian reports multiple episodes, that are intermittent. Modifying factors: The symptoms are alleviated by nothing. the symptoms are aggravated by nothing. Severity of pain: At its worst the pain was moderate in the emergency department the pain is unchanged. The patient has not experienced similar symptoms in the past. The patient has not recently seen a physician. Stated that it started about 1 weeks ago. 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 Historical: - Allergies: 17:35 bupropion HCl; mg2 17:35 Levofloxacin; mg2 17:35 Wellbutrin; mg2 - Home Meds: 19:17 aripiprazole 15 mg Oral tab 1 tab nightly [Active]; Cogentin Oral [Active]; duloxetine lp1 30 mg Oral cpDR 1 cap once daily [Active]; hydroxyzine HCl 25 mg Oral tab 4 times per day [Active]; propranolol 20 mg Oral tab 1 tab 2 times per day [Active]; trazodone 150 mg Oral tab 1 tab night prn [Active]; - PMHx: 17:35 ADD/ADHD; Anxiety; Bipolar disorder; Depression; Endometrosis; Gastric Reflux; MRSA; mg2 osteomylitis; Ovarian cyst; UTI; - PSHx: 17:35 left leg amputation; mg2 - Immunization history:: Flu vaccine is not up to date. - Social history:: Smoking status: Patient uses tobacco products, smokes one pack cigarettes per day. Patient uses alcohol, occasionally. Patient/guardian denies using street drugs, IV drugs. - Ebola Screening: : No symptoms or risks identified at this time. ROS: 18:27 Eyes: Negative for injury, pain, redness, and discharge, ENT: Negative for injury, jr8 pain, and discharge, Neck: Negative for injury, pain, and swelling, Respiratory: Negative for shortness of breath, cough, wheezing, and pleuritic chest pain, Abdomen/GI: Negative for abdominal pain, nausea, vomiting, diarrhea, and constipation, Back: Negative for injury and pain, MS/Extremity: Negative for injury and deformity, Skin: Negative for injury, rash, and discoloration, Neuro: Negative for headache, weakness, numbness, tingling, and seizure. 18:27 Cardiovascular: Positive for chest pain, Negative for edema, orthopnea, palpitations. Exam: 18:27 Eyes: Pupils equal round and reactive to light, extra-ocular motions intact. Lids and jr8 lashes normal. Conjunctiva and sclera are non-icteric and not injected. Cornea within normal limits. Periorbital areas with no swelling, redness, or edema. ENT: Nares patent. No nasal discharge, no septal abnormalities noted. Tympanic membranes are normal and external auditory canals are clear. Oropharynx with no redness, swelling, or masses, exudates, or evidence of obstruction, uvula midline. Mucous membranes moist. Neck: Trachea midline, no thyromegaly or masses palpated, and no cervical lymphadenopathy. Supple, full range of motion without nuchal rigidity, or vertebral point tenderness. No Meningismus. Cardiovascular: Regular rate and rhythm with a normal S1 and S2. No gallops, murmurs, or rubs. Normal PMI, no JVD. No pulse deficits. Respiratory: Lungs have equal breath sounds bilaterally, clear to auscultation and percussion. No rales, rhonchi or wheezes noted. No increased work of breathing, no retractions or nasal flaring. Abdomen/GI: Soft, non-tender, with normal bowel sounds. No distension or tympany. No guarding or rebound. No evidence of tenderness throughout. Back: No spinal tenderness. No costovertebral tenderness. Full range of motion. Skin: Warm, dry with normal turgor. Normal color with no rashes, no lesions, and no evidence of cellulitis. MS/ Extremity: Pulses equal, no cyanosis. Neurovascular intact. Full, normal range of motion. Neuro: Awake and alert, GCS 15, oriented to person, place, time, and situation. Cranial nerves II-XII grossly intact. Motor strength 5/5 in all extremities. Sensory grossly intact. Cerebellar exam normal. Normal gait. Vital Signs: 17:34 BP 118 / 87; Pulse 66; Resp 18; Temp 97.4; Pulse Ox 100% on R/A; Weight 90.72 kg; mg2 Height 5 ft. 8 in. (172.72 cm); Pain 8/10; 18:28 BP 128 / 88; Pulse 68; Resp 15; Pulse Ox 99% on R/A; Pain 6/10; hb 19:16 BP 115 / 78; Pulse 54; Resp 16; Pulse Ox 99% on R/A; lp1 17:34 Body Mass Index 30.41 (90.72 kg, 172.72 cm) mg2 MDM: 18:14 Patient medically screened. jr8 19:21 Differential diagnosis: abnormal EKG, acute myocardial infarction, acute pericarditis, jr8 anxiety, chest wall pain, cholecystitis, Cholelithiasis costochondritis, esophagitis, gastritis, gastroesophageal reflux disease (GERD), pneumonia, pneumothorax, pulmonary embolus, stable angina, thoracic aortic disection, unstable angina. Data reviewed: vital signs, nurses notes, lab test result(s), EKG, radiologic studies, plain films. Data interpreted: Pulse oximetry: on room air is 99 %. Interpretation: normal. Counseling: I had a detailed discussion with the patient and/or guardian regarding: the historical points, exam findings, and any diagnostic results supporting the discharge/admit diagnosis, lab results, radiology results, the need for outpatient follow up, a family practitioner, to return to the emergency department if symptoms worsen or persist or if there are any questions or concerns that arise at home. 09/02 18:14 Order name: Basic Metabolic Panel; Complete Time: 19:21 09/02 18:14 Order name: CBC with Diff; Complete Time: 18:51 09/02 18:14 Order name: LFT's; Complete Time: 19:21 09/02 18:14 Order name: Magnesium; Complete Time: 19:21 09/02 18:14 Order name: NT PRO-BNP; Complete Time: 19:21 09/02 18:14 Order name: PT-INR; Complete Time: 18:51 jr8 01/13 18:14 Order name: Troponin (emerg Dept Use Only); Complete Time: 19:21 09/02 18:14 Order name: XRAY Chest (1 view); Complete Time: 19:23 09/02 18:14 Order name: EKG; Complete Time: 18:15 09/02 18:14 Order name: Cardiac monitoring; Complete Time: 18:20 09/02 18:14 Order name: EKG - Nurse/Tech; Complete Time: 18:28 09/02 18:14 Order name: IV Saline Lock; Complete Time: 18:28 09/02 18:14 Order name: Labs collected and sent; Complete Time: 18:28 09/02 18:14 Order name: O2 Per Protocol; Complete Time: 18:20 09/02 18:14 Order name: O2 Sat Monitoring; Complete Time: 18:19 Administered Medications: 18:28 Drug: Aspirin Chewable Tablet 324 mg Route: PO; hb 19:07 Follow up: Response: No adverse reaction sv Disposition: 19:40 Co-signature as Attending Physician, Fran Gee MD. [email or web address] Disposition: 09/02/19 19:22 Discharged to Home. Impression: Chest pain, unspecified. - Condition is Stable. - Discharge Instructions: Nonspecific Chest Pain, Chest Wall Pain. - Medication Reconciliation Form, Thank You Letter, Antibiotic Education, Prescription Opioid Use form. - Follow up: Reed Hung MD; When: 2 - 3 days; Reason: Recheck today's complaints, Continuance of care, Re-evaluation by your physician. - Problem is new. - Symptoms have improved. Signatures: Dispatcher [employer] EDMS Fran Gee MD MD pkl Fiona Alexander RN RN lp1 Kian Escobedo PA PA jr8 Vania Kilgore RN RN Shey Fuentes RN RN ea Gardose, Michele, Merry Franco RN, RN sv Corrections: (The following items were deleted from the chart) 19:38 19:22 09/02/2019 19:22 Discharged to Home. Impression: Chest pain, unspecified. ea Condition is Stable. Forms are Medication Reconciliation Form, Thank You Letter, Antibiotic Education, Prescription Opioid Use. Follow up: Reed Hung; When: 2 - 3 days; Reason: Recheck today's complaints, Continuance of care, Re-evaluation by your physician. Problem is new. Symptoms have improved. jr8
--- NOTE | 2019-09-02 19:23 | ER ---
Nurse's Notes [facility] Name: Natasha Spann Age: 34 yrs Sex: Female : 1985 Arrival Date: 09/02/2019 Time: 17:29 Bed 8 Private MD: Reed Hung E Diagnosis: Chest pain, unspecified Presentation: 09/02 17:32 Presenting complaint: Patient states: i have back pain radiating to my chest and neck. mg2 i also have dizziness for a week now. Transition of care: patient was not received from another setting of care. Onset of symptoms was August 2019. Risk Assessment: Do you want to hurt yourself or someone else? Patient reports no desire to harm self or others. Initial Sepsis Screen: Does the patient meet any 2 criteria? No. Patient's initial sepsis screen is negative. Does the patient have a suspected source of infection? No. Patient's initial sepsis screen is negative. Care prior to arrival: None. 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 Historical: - Allergies: 17:35 bupropion HCl; mg2 17:35 Levofloxacin; mg2 17:35 Wellbutrin; mg2 - Home Meds: 19:17 aripiprazole 15 mg Oral tab 1 tab nightly [Active]; Cogentin Oral [Active]; duloxetine lp1 30 mg Oral cpDR 1 cap once daily [Active]; hydroxyzine HCl 25 mg Oral tab 4 times per day [Active]; propranolol 20 mg Oral tab 1 tab 2 times per day [Active]; trazodone 150 mg Oral tab 1 tab night prn [Active]; - PMHx: 17:35 ADD/ADHD; Anxiety; Bipolar disorder; Depression; Endometrosis; Gastric Reflux; MRSA; mg2 osteomylitis; Ovarian cyst; UTI; - PSHx: 17:35 left leg amputation; mg2 - Immunization history:: Flu vaccine is not up to date. - Social history:: Smoking status: Patient uses tobacco products, smokes one pack cigarettes per day. Patient uses alcohol, occasionally. Patient/guardian denies using street drugs, IV drugs. - Ebola Screening: : No symptoms or risks identified at this time. Screenin:28 Abuse screen: Denies threats or abuse. Denies injuries from another. Nutritional hb screening: No deficits noted. Tuberculosis screening: No symptoms or risk factors identified. Fall Risk None identified. Assessment: 18:28 General: Appears in no apparent distress. Behavior is calm, cooperative. Pain: Pain hb currently is 8 out of 10 on a pain scale. Neuro: Level of Consciousness is awake, alert, obeys commands, Oriented to person, place, time, situation. Cardiovascular: Heart tones S1 S2 present Capillary refill < 3 seconds Patient's skin is warm and dry. Respiratory: Airway is patent Respiratory effort is even, unlabored, Respiratory pattern is regular, symmetrical, Breath sounds are clear bilaterally. GI: No signs and/or symptoms were reported involving the gastrointestinal system. : No signs and/or symptoms were reported regarding the genitourinary system. EENT: No signs and/or symptoms were reported regarding the EENT system. Derm: Skin is pink, warm \T\ dry. Musculoskeletal: No signs and/or symptoms reported regarding the musculoskeletal system. 19:15 General: Appears in no apparent distress. Behavior is appropriate for age. Pain: lp1 Complains of pain in thoracic area. Neuro: Level of Consciousness is awake, alert, obeys commands. Cardiovascular: Patient's skin is warm and dry. 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 Derm: Skin is pink, warm \T\ dry. Musculoskeletal: Amputation of left leg. 19:37 Reassessment: Patient and/or family updated on plan of care and expected duration. Pain ea level reassessed. Patient is alert, oriented x 3, equal unlabored respirations, skin warm/dry/pink. Discharge instruction given to patient, verbalized the understanding of instruction. Pt left ED ambulatory tolerating well. Vital Signs: 17:34 BP 118 / 87; Pulse 66; Resp 18; Temp 97.4; Pulse Ox 100% on R/A; Weight 90.72 kg; mg2 Height 5 ft. 8 in. (172.72 cm); Pain 8/10; 18:28 BP 128 / 88; Pulse 68; Resp 15; Pulse Ox 99% on R/A; Pain 6/10; hb 19:16 BP 115 / 78; Pulse 54; Resp 16; Pulse Ox 99% on R/A; lp1 17:34 Body Mass Index 30.41 (90.72 kg, 172.72 cm) mg2 ED Course: 17:29 Patient arrived in ED. mr 17:29 Reed Hung MD is Private Physician. mr 17:33 Triage completed. mg2 17:34 Arm band placed on. mg2 18:14 Kian Escobedo PA is PHCP. jr8 18:14 Fran Gee MD is Attending Physician. jr8 18:28 Vania Kilgore, RN is Primary Nurse. hb 18:28 Patient has correct armband on for positive identification. Placed in gown. Bed in low hb position. Call light in reach. Side rails up X 1. quality assurance monitor final on. Pulse ox on. NIBP on. 18:28 Inserted saline lock: 22 gauge in right upper arm, using aseptic technique. Blood hb collected. 18:29 EKG done, by ED staff, reviewed by Kian HADDAD. sv 18:29 X-ray(s) taken. sv 18:33 XRAY Chest (1 view) In Process Unspecified. EDMS 19:16 No provider procedures requiring assistance completed. lp1 19:22 Reed Hung MD is Referral Physician. jr8 19:30 IV discontinued, intact, bleeding controlled, No redness/swelling at site. Pressure ea dressing applied. Administered Medications: 18:28 Drug: Aspirin Chewable Tablet 324 mg Route: PO; hb 19:07 Follow up: Response: No adverse reaction sv Outcome: 19:22 Discharge ordered by . jr8 19:38 Discharged to home ambulatory. ea 19:38 Condition: stable 19:38 Discharge instructions given to patient, Instructed on discharge instructions, follow up and referral plans. Demonstrated understanding of instructions, follow-up care. 19:38 Patient left the ED. ea Signatures: Dispatcher [employer] EDLA Merry Licea RN JONY JusticeBelinda mr AlexanderFiona RN RN lp1 Kian Escobedo PA PA jr8 Vania Kilgore, Shey Vizcaino RN, RN RN ea Gardose, Michele, RN RN mg2 Corrections: (The following items were deleted from the chart) 17:34 17:32 Presenting complaint: Patient states: i have back pain radiating to my chest and mg2 neck. i also have dizziness. mg2
--- NOTE | 2019-09-03 20:57 | EKG ---
Test Date: 2019-09-02 Test Time: 18:24:03 Affirmative Action Officer: FREDDY MEASUREMENT RESULTS: Intervals: Rate: 60 CT: 160 QRSD: 86 QT: 406 QTc: 406 [place]: P: 26 CT: 160 QRS: 65 T: 35 INTERPRETIVE STATEMENTS: Normal sinus rhythm Nonspecific T wave abnormality Abnormal ECG Compared to ECG 05/02/2019 15:07:42 T-wave abnormality now present Sinus bradycardia no longer present Electronically Signed On 09-03-19 20:55:13 POST HOLE DIGGER by Rocky Sutton
== END 2019-09-02 19:38 | disposition home or self-care (01) ==
LOC: ER 17:25
DX: R07.9 Chest pain, unspecified (principal); F41.8 Other specified anxiety disorders; F31.9 Bipolar disorder, unspecified
CPT/HCPCS: 36415; 71045; 80048; 80076; 83735; 83880; 84484; 85025; 85610; 93005; 99284

== ENCOUNTER 2019-11-02 13:34 | Emergency (ER) | payer SELFPAY ==
--- OUTSIDE RECORDS SUMMARY | 2019-11-02 13:36 | XMS REPORT ---
:1985 Author Organization [facility] Address [address] [place] [address] Care Team Providers Name Role Phone JOYCE FOLEY Unavailable Unavailable Problems This patient has no known problems. Allergies, Adverse Reactions, Alerts This patient has no known allergies or adverse reactions. Medications This patient has no known medications. Encounters Start End Encounter Admission Attending Care Care Encounter Date/Time Date/Time Type Type Clinicians Facility Department ID 2017-04-09 2017-04-09 Emergency [facility] [id number] 00:00:00 00:00:00 2017-04-09 2017-04-09 Emergency [facility] [id number] 00:00:00 00:00:00 2017-04-08 2017-04-08 [facility] [id number] 22:35:00 22:35:00 2017-04-08 2017-04-08 [facility] [id number] 00:00:00 00:00:00 Results Test Description Test Time Test Comments Text Results Atomic Results Result Comments HEMOGLOBIN A1C 2017-07-16 13:26:00 Test Item Value Reference Range Comments HEMOGLOBIN A1C (BEAKER) (test yeev=160) 5.2 % 4.3-6.1 CBC W/PLT COUNT & AUTO [id number] 09:42:00 Test Item Value Reference Range Comments WHITE BLOOD CELL COUNT (BEAKER) (test vogp=080) 8.3 K/ L 3.5-10.5 RED BLOOD CELL COUNT (BEAKER) (test dadk=956) 3.47 M/ L 3.93-5.22 HEMOGLOBIN (BEAKER) (test rylw=648) 10.3 GM/DL 11.2-15.7 HEMATOCRIT (BEAKER) (test jxaj=208) 32.8 % 34.1-44.9 MEAN CORPUSCULAR VOLUME (BEAKER) (test zfyw=946) 94.5 fL 79.4-94.8 MEAN CORPUSCULAR HEMOGLOBIN (BEAKER) (test 29.7 pg 25.6-32.2 jiyg=813) MEAN CORPUSCULAR HEMOGLOBIN CONC (BEAKER) (test 31.4 GM/DL 32.2-35.5 glzb=562) RED CELL DISTRIBUTION WIDTH (BEAKER) (test 13.1 % 11.7-14.4 lrgm=850) PLATELET COUNT (BEAKER) (test jjjh=271) 284 K/CU MM 150-450 MEAN PLATELET VOLUME (BEAKER) (test wazn=203) 9.7 fL 9.4-12.3 NUCLEATED RED BLOOD CELLS (BEAKER) (test 0 /100 WBC 0-0 dgel=269) IMMATURE GRANULOCYTES-RELATIVE PERCENT (BEAKER) 0 % 0-1 (test fnmm=0744) (MANUAL DIFFERENTIAL)2017-07-16 09:42:00 Test Item Value Reference Range Comments NEUTROPHILS - REL (DIFF) (BEAKER) (test clbg=8293) 36 % LYMPHOCYTES - REL (DIFF) (BEAKER) (test znnd=0589) 53 % MONOCYTES - REL (DIFF) (BEAKER) (test ucna=8737) 4 % EOSINOPHILS - REL (DIFF) (BEAKER) (test txad=7942) 2 % BASOPHILS - REL (DIFF) (BEAKER) (test nzyz=9717) 2 % ATYPICAL LYMPHOCYTE - REL (DIFF) (BEAKER) (test 3 % 0-0 iawi=716) NEUTROPHILS - ABS (DIFF) (BEAKER) (test qupn=9663) 2.99 K/ L 1.80-8.00 LYMPHOCYTES - ABS (DIFF) (BEAKER) (test mwnt=2964) 4.40 K/ L 1.48-4.50 MONOCYTES - ABS (DIFF) (BEAKER) (test hhjv=7582) 0.33 K/ L 0.00-1.30 EOSINOPHILS - ABS (DIFF) (BEAKER) (test xwvl=4359) 0.17 K/ L 0.00-0.50 BASOPHILS - ABS (DIFF) (BEAKER) (test cnfl=2879) 0.17 K/ L 0.00-0.20 ATYPICAL LYMPHOCYTES - ABS (DIFF) (BEAKER) (test 0.25 K/ L 0.00-0.00 hftg=842) TOTAL COUNTED (BEAKER) (test rlgf=5508) 100 WBC MORPHOLOGY (BEAKER) (test cxij=031) Normal PLT MORPHOLOGY (BEAKER) (test vhfz=983) Normal RBC MORPHOLOGY (BEAKER) (test ytkj=862) Normal [id number] 07:11:00 Test Item Value Reference Range Comments MAGNESIUM (BEAKER) (test ykbr=494) 1.5 mg/dL 1.6-2.6 BASIC METABOLIC [id number] 07:11:00 Test Item Value Reference Range Comments SODIUM (BEAKER) (test 140 meq/L 136-145 esiz=340) POTASSIUM (BEAKER) (test 3.6 meq/L 3.5-5.1 zddo=629) CHLORIDE (BEAKER) (test 119 meq/L 98-107 zafu=069) CO2 (BEAKER) (test 16 meq/L 22-29 ddkd=198) BLOOD UREA NITROGEN 7 mg/dL 7-21 (BEAKER) (test kyzv=269) CREATININE (BEAKER) (test 0.59 mg/dL 0.57-1.25 jvvw=535) GLUCOSE RANDOM (BEAKER) 89 mg/dL 70-105 (test mupe=607) CALCIUM (BEAKER) (test 8.3 mg/dL 8.4-10.2 oflo=571) EGFR (BEAKER) (test 118 mL/min/1.73 sq m ESTIMATED GFR IS NOT hqze=8272) ACCURATE CREATININE CLEARANCE IN PREDICTING GLOMERULAR FILTRATION RATE. ESTIMATED GFR IS NOT APPLICABLE FOR DIALYSIS PATIENTS. LIPID [id number] 07:11:00 Test Item Value Reference Range Comments TRIGLYCERIDES (BEAKER) (test caus=183) 75 mg/dL CHOLESTEROL (BEAKER) (test hurx=362) 173 mg/dL HDL CHOLESTEROL (BEAKER) (test wmzx=924) 33 mg/dL LDL CHOLESTEROL CALCULATED (BEAKER) (test 125 mg/dL xnaa=620) Triglyceride Reference Range: Low Risk <150 Borderline 150- 199 High Risk 200-499 Very High Risk >=500Cholesterol Reference Range: Low Risk <200 Borderline 200-239 High Risk > 240HDL Cholesterol Reference Range: Low Risk >=60 High Risk <40LDL Cholesterol Reference Range: Optimal <100 Near Optimal 100-129 Borderline 130-159 High 160-189 Very High >=190TROPONIN [id number] 06:34:00 Test Item Value Reference Range Comments TROPONIN I (KRISTI) (test imhd=355) < ng/mL 0.00-0.03 Troponin I (TnI) levels [...] acidosis, acute neurological disease, and persistent tachyarrhythmia.TROPONIN [id number] 23:58:00 Test Item Value Reference Range Comments TROPONIN I (BEPETER) (test wocl=908) < ng/mL 0.00-0.03 Troponin I (TnI) levels [...]
--- NOTE | 2019-11-02 15:00 | ER ---
Nurse's Notes [facility] Name: Natasha Spann Age: 34 yrs Sex: Female : 1985 Arrival Date: 11/02/2019 Time: 13:39 Bed 9 Private MD: Diagnosis: Pain in left leg-contusion Presentation: 11/01 14:03 Chief complaint: Patient states: I am having bone pain when I walk that is getting dm5 worse for the last 3 days in left leg. I am not sure how to explain it. denies any new trauma or injuries. pt has below the knee amputation. Coronavirus screen: The patient has NOT traveled to a country currently being monitored by the [facility] within the last 14 days. Proceed with normal triage procedures. The patient has NOT had contact with any known and/or suspected case of coronavirus. Proceed with normal triage procedures. Ebola Screen: Patient negative for fever greater than or equal to 101.5 degrees Fahrenheit, and additional compatible Ebola Virus Disease symptoms Patient denies exposure to infectious person. Patient denies travel to an Ebola-affected area in the 21 days before illness onset. No symptoms or risks identified at this time. Initial Sepsis Screen: Does the patient meet any 2 criteria? No. Patient's initial sepsis screen is negative. Does the patient have a suspected source of infection? No. Patient's initial sepsis screen is negative. Risk Assessment: Do you want to hurt yourself or someone else? Patient reports no desire to harm self or others. 14:03 Method Of Arrival: Ambulatory dm5 14:03 Acuity: EMILY 4 dm5 Historical: - Allergies: 14:07 Levofloxacin; dm5 14:07 Wellbutrin; dm5 14:07 bupropion HCl; dm5 - Immunization history:: Adult Immunizations up to date. - Family history:: not pertinent. - Social history:: Smoking status: unknown. Screenin:11 Abuse screen: Denies threats or abuse. Denies injuries from another. Nutritional ss screening: No deficits noted. Tuberculosis screening: Never had TB. Fall Risk None identified. Assessment: 14:30 General: Appears in no apparent distress. comfortable. Pain: Complains of pain in left ss martinez Pain currently is 6 out of 10 on a pain scale. Quality of pain is described as aching, tender. Neuro: Level of Consciousness is awake, alert, obeys commands, Oriented to person, place, time, situation. Cardiovascular: Capillary refill < 3 seconds is brisk in bilateral fingers. Respiratory: Airway is patent Respiratory effort is even, unlabored, Respiratory pattern is regular, symmetrical. Derm: Skin is intact, is healthy with good turgor, Skin is pink, warm \T\ dry. normal. Musculoskeletal: Amputation of left martinez. Circulation, motion, and sensation intact. Range of motion: intact in all extremities, Swelling absent. 15:11 Reassessment: Patient appears in no apparent distress at this time. Patient and/or ss family updated on plan of care and expected duration. Pain level reassessed. Pt up for discharge. Awaiting for XRAY to be obtained. Vital Signs: 14:03 BP 117 / 73; Pulse 71; Resp 16; Temp 98; Pulse Ox 98% ; Weight 90.72 kg; Height 5 ft. 8 dm5 in. (172.72 cm); Pain 6/10; 14:03 Body Mass Index 30.41 (90.72 kg, 172.72 cm) dm5 ED Course: 13:39 Patient arrived in ED. mr 14:06 Triage completed. dm5 14:25 Ole Epstein MD is Attending Physician. imelda 14:47 Fabiola Maxwell, JONY is Primary Nurse. 14:58 Herb Durant MD is Referral Physician. imelda 15:11 Patient has correct armband on for positive identification. Bed in low position. Call ss light in reach. 15:23 Tib Fib Left XRAY In Process Unspecified. EDMS 15:56 Patient did not have IV access during this emergency room visit. dm5 15:56 No provider procedures requiring assistance completed. ss Administered Medications: 15:10 Drug: Motrin 600 mg Route: PO; ss 15:56 Follow up: Response: No adverse reaction; Pain is decreased ss 15:10 Drug: [place] (7.5 mg-325 mg) 1 tabs Route: PO; ss 15:50 Follow up: Response: No adverse reaction; Pain is decreased ss Outcome: 14:59 Discharge ordered by MD. imelda 15:56 Discharged to home ambulatory. dm5 15:56 Condition: good 15:56 Discharge instructions given to patient, Instructed on discharge instructions, follow up and referral plans. medication usage, Demonstrated understanding of instructions, follow-up care, medications, Prescriptions given X 2. 15:57 Patient left the ED. dm5 Signatures: Dispatcher [employer] Marcelle Voss RN RN dm5 Ole Epstein MD MD [facility] Fabiola Díaz, JONY RN ss
--- NOTE | 2019-11-02 15:00 | EDPHYS ---
Physician Documentation [facility] Name: Natasha Spann Age: 34 yrs Sex: Female : 1985 Arrival Date: 11/02/2019 Time: 13:39 Bed 9 Private MD: ALLY Physician Ole Epstein HPI: 11/01 14:55 This 34 yrs old Female presents to ER via Ambulatory with complaints of Leg imelda Pain. 14:55 The patient presents with pain. The complaints affect the left knee and left martinez. imelda Context: The problem was sustained at an unknown site, resulted from an unknown cause. Onset: The symptoms/episode began/occurred 1 week(s) ago. Modifying factors: The symptoms are alleviated by elevating leg, remaining still, the symptoms are aggravated by movement, weight bearing, bending knee. Associated signs and symptoms: The patient has no apparent associated signs or symptoms. Severity of symptoms: At their worst the symptoms were mild, in the emergency department the symptoms are unchanged. Historical: - Allergies: 14:07 Levofloxacin; dm5 14:07 Wellbutrin; dm5 14:07 bupropion HCl; dm5 - Immunization history:: Adult Immunizations up to date. - Family history:: not pertinent. - Social history:: Smoking status: unknown. ROS: 14:55 Constitutional: Negative for fever, chills, and weight loss, Eyes: Negative for injury, imelda pain, redness, and discharge, ENT: Negative for injury, pain, and discharge, Neck: Negative for injury, pain, and swelling, Cardiovascular: Negative for chest pain, palpitations, and edema, Respiratory: Negative for shortness of breath, cough, wheezing, and pleuritic chest pain, Abdomen/GI: Negative for abdominal pain, nausea, vomiting, diarrhea, and constipation, Back: Negative for injury and pain, : Negative for injury, bleeding, discharge, and swelling, Skin: Negative for injury, rash, and discoloration, Neuro: Negative for headache, weakness, numbness, tingling, and seizure, Psych: Negative for depression, anxiety, suicide ideation, homicidal ideation, and hallucinations, Allergy/Immunology: Negative for hives, rash, and allergies, Endocrine: Negative for neck swelling, polydipsia, polyuria, polyphagia, and marked weight changes, Hematologic/Lymphatic: Negative for swollen nodes, abnormal bleeding, and unusual bruising. 14:55 MS/extremity: Positive for pain, of the left knee and left martinez. Exam: 14:55 Constitutional: This is a well developed, well nourished patient who is awake, alert, imelda and in no acute distress. Head/Face: Normocephalic, atraumatic. Eyes: Pupils equal round and reactive to light, extra-ocular motions intact. Lids and lashes normal. Conjunctiva and sclera are non-icteric and not injected. Cornea within normal limits. Periorbital areas with no swelling, redness, or edema. ENT: Nares patent. No nasal discharge, no septal abnormalities noted. Tympanic membranes are normal and external auditory canals are clear. Oropharynx with no redness, swelling, or masses, exudates, or evidence of obstruction, uvula midline. Mucous membranes moist. Neck: Trachea midline, no thyromegaly or masses palpated, and no cervical lymphadenopathy. Supple, full range of motion without nuchal rigidity, or vertebral point tenderness. No Meningismus. Chest/axilla: Normal chest wall appearance and motion. Nontender with no deformity. No lesions are appreciated. Cardiovascular: Regular rate and rhythm with a normal S1 and S2. No gallops, murmurs, or rubs. Normal PMI, no JVD. No pulse deficits. Respiratory: Lungs have equal breath sounds bilaterally, clear to auscultation and percussion. No rales, rhonchi or wheezes noted. No increased work of breathing, no retractions or nasal flaring. Abdomen/GI: Soft, non-tender, with normal bowel sounds. No distension or tympany. No guarding or rebound. No evidence of tenderness throughout. Back: No spinal tenderness. No costovertebral tenderness. Full range of motion. Skin: Warm, dry with normal turgor. Normal color with no rashes, no lesions, and no evidence of cellulitis. Neuro: Awake and alert, GCS 15, oriented to person, place, time, and situation. Cranial nerves II-XII grossly intact. Motor strength 5/5 in all extremities. Sensory grossly intact. Cerebellar exam normal. Normal gait. Psych: Awake, alert, with orientation to person, place and time. Behavior, mood, and affect are within normal limits. 14:55 Musculoskeletal/extremity: ROM: full active range of motion, full passive range of motion, Circulation is intact in all extremities. Sensation intact. Tendon exam: specific tendon testing normal through active and passive range of motion DVT Exam: no pain, no swelling, negative Homans' sign noted on exam, no appreciated bluish discoloration, no erythema, no increased warmth, tenderness. Vital Signs: 14:03 BP 117 / 73; Pulse 71; Resp 16; Temp 98; Pulse Ox 98% ; Weight 90.72 kg; Height 5 ft. 8 dm5 in. (172.72 cm); Pain 6/10; 14:03 Body Mass Index 30.41 (90.72 kg, 172.72 cm) dm5 MDM: 14:25 Patient medically screened. [facility] 14:57 Data reviewed: vital signs, nurses notes, radiologic studies. [facility] 11/01 14:55 Order name: Tib Fib Left XRAY [facility] Administered Medications: 15:10 Drug: Motrin 600 mg Route: PO; ss 15:56 Follow up: Response: No adverse reaction; Pain is decreased ss 15:10 Drug: [place] (7.5 mg-325 mg) 1 tabs Route: PO; ss 15:50 Follow up: Response: No adverse reaction; Pain is decreased ss Disposition: 11/02/19 14:59 Discharged to Home. Impression: Pain in left leg - contusion. - Condition is Stable. - Discharge Instructions: Musculoskeletal Pain, Cryotherapy, [id number], Cryotherapy. - Prescriptions for Ibuprofen 600 mg Oral Tablet - take 1 tablet by ORAL route every 8 hours As needed take with food; 21 tablet. Tylenol- Codeine #3 300-30 mg Oral Tablet - take 2 tablets by ORAL route every 6 hours As needed; 26 tablet. - Medication Reconciliation Form, Thank You Letter, Antibiotic Education, Prescription Opioid Use form. - Follow up: Private Physician; When: 2 - 3 days; Reason: Recheck today's complaints, Continuance of care, Re-evaluation by your physician. Follow up: Herb Durant MD; When: 2 - 3 days; Reason: Recheck today's complaints, Re-evaluation by your physician. - Problem is new. - Symptoms are unchanged. Signatures: Dispatcher MedHo Marcelle Voss RN RN dmOle Thapa MD MD cha Smirch, Shelby, RN RN ss Corrections: (The following items were deleted from the chart) 15:57 14:59 11/02/2019 14:59 Discharged to Home. Impression: Pain in left leg - contusion. dm5 Condition is Stable. Forms are Medication Reconciliation Form, Thank You Letter, Antibiotic Education, Prescription Opioid Use. Follow up: Private Physician; When: 2 - 3 days; Reason: Recheck today's complaints, Continuance of care, Re-evaluation by your physician. Follow up: Herb Durant; When: 2 - 3 days; Reason: Recheck today's complaints, Re-evaluation by your physician. Problem is new. Symptoms are unchanged. imelda
[2019-11-02] MEDS ORDERED: HYDROCODONE/APAP 7.5/325 MG TAB ONE (15:12)
[2019-11-02] MEDS ORDERED: IBUPROFEN 200 MG TAB PO ONE (15:12)
[2019-11-02 16:03] VITALS: BP 117/73; TEMP 98; O2SAT 98
--- NOTE | 2019-11-02 16:10 | RAD REPORT ---
EXAM DESCRIPTION: RAD - Tib Fib Left - 11/02/2019 3:22 pm CLINICAL HISTORY: Trauma, left leg pain, below knee amputee COMPARISON: July 2016 FINDINGS: No fracture is identified. There is no dislocation or periosteal reaction noted. No acute or suspicious bony finding. No erosive or destructive changes at the distal aspects of the tibia and fibula. Clips are seen in the soft tissues. Sclerotic focus in the lateral left tibial metaphysis has not changed. No foreign body or other soft tissue abnormality. IMPRESSION: Negative left tibia & fibula examination. Patient is below knee amputee. Bones and soft tissues are similar in appearance to 2016.
== END 2019-11-02 15:57 | disposition home or self-care (01) ==
LOC: ER 13:34
DX: S80.12XA Contusion of left lower leg, initial encounter (principal); X58.XXXA Exposure to other specified factors, initial encounter; Y93.9 Activity, unspecified; Y92.9 Unspecified place or not applicable; Z88.1 Allergy status to other antibiotic agents
CPT/HCPCS: 99283

== ENCOUNTER 2019-12-23 13:46 | Emergency (ER) | payer SELFPAY ==
--- OUTSIDE RECORDS SUMMARY | 2019-12-23 13:50 | XMS REPORT ---
:1985 Author Organization [facility] t Address [address] [place] [address] Care Team Providers Name Role Phone BINTA FOLEY Unavailable Unavailable Problems This patient has no known problems. Allergies, Adverse Reactions, Alerts This patient has no known allergies or adverse reactions. Medications This patient has no known medications. Encounters Start End Encounter Admission Attending Care Care Encounter Date/Time Date/Time Type Type Clinicians Facility Department ID 2017-04-09 2017-04-09 Emergency [facility] [id number] 00:00:00 00:00:00 2017-04-09 2017-04-09 [facility] [id number] 00:00:00 00:00:00 2017-04-08 2017-04-08 [facility] [id number] 22:35:00 22:35:00 2017-04-08 2017-04-08 [facility] [id number] 00:00:00 00:00:00 Results Test Description Test Time Test Comments Text Results Atomic Results Result Comments HEMOGLOBIN A1C 2017-07-16 13:26:00 Test Item Value Reference Range Comments HEMOGLOBIN A1C (BEAKER) (test code = 368) 5.2 % 4.3-6. 1 CBC W/PLT COUNT & AUTO [id number] 09:42:00 Test Item Value Reference Range Comments WHITE BLOOD CELL COUNT (BEAKER) (test code = 8.3 K/ L 3.5 -10.5 775) RED BLOOD CELL COUNT (BEAKER) (test code = 761) 3.47 M/ L 3.93-5.22 HEMOGLOBIN (BEAKER) (test code = 410) 10.3 GM/DL 11.2-15.7 HEMATOCRIT (BEAKER) (test code = 411) 32.8 % 34.1-44.9 MEAN CORPUSCULAR VOLUME (BEAKER) (test code = 94.5 fL 79 .4-94.8 753) MEAN CORPUSCULAR HEMOGLOBIN (BEAKER) (test code 29.7 pg 25.6-32.2 = 751) MEAN CORPUSCULAR HEMOGLOBIN CONC (BEAKER) (test 31.4 GM/DL 32.2-35.5 code = 752) RED CELL DISTRIBUTION WIDTH (BEAKER) (test code 13.1 % 11.7-14.4 = 412) PLATELET COUNT (BEAKER) (test code = 756) 284 K/CU MM 150-45 0 MEAN PLATELET VOLUME (BEAKER) (test code = 754) 9.7 fL 9.4-12.3 NUCLEATED RED BLOOD CELLS (BEAKER) (test code = 0 /100 WBC 0-0 413) IMMATURE GRANULOCYTES-RELATIVE PERCENT (BEAKER) 0 % 0-1 (test code = 2801) (MANUAL DIFFERENTIAL)2017-07-16 09:42:00 Test Item Value Reference Range Comments NEUTROPHILS - REL (DIFF) (BEAKER) (test code = 36 % 1359) LYMPHOCYTES - REL (DIFF) (BEAKER) (test code = 53 % 1360) MONOCYTES - REL (DIFF) (BEAKER) (test code = 1361) 4 % EOSINOPHILS - REL (DIFF) (BEAKER) (test code = 2 % 1362) BASOPHILS - REL (DIFF) (BEAKER) (test code = 1363) 2 % ATYPICAL LYMPHOCYTE - REL (DIFF) (BEAKER) (test 3 % 0-0 code = 260) NEUTROPHILS - ABS (DIFF) (BEAKER) (test code = 2.99 K/ L 1 .80-8.00 1365) LYMPHOCYTES - ABS (DIFF) (BEAKER) (test code = 4.40 K/ L 1 .48-4.50 1366) MONOCYTES - ABS (DIFF) (BEAKER) (test code = 1367) 0.33 K/ L 0.00-1.30 EOSINOPHILS - ABS (DIFF) (BEAKER) (test code = 0.17 K/ L 0 .00-0.50 1368) BASOPHILS - ABS (DIFF) (BEAKER) (test code = 1369) 0.17 K/ L 0.00-0.20 ATYPICAL LYMPHOCYTES - ABS (DIFF) (BEAKER) (test 0.25 K/ L 0.00-0.00 code = 263) TOTAL COUNTED (BEAKER) (test code = 1351) 100 WBC MORPHOLOGY (BEAKER) (test code = 487) Normal PLT MORPHOLOGY (BEAKER) (test code = 486) Normal RBC MORPHOLOGY (BEAKER) (test code = 762) Normal [id number] 07:11:00 Test Item Value Reference Range Comments MAGNESIUM (BEAKER) (test code = 627) 1.5 mg/dL 1.6-2.6 BASIC METABOLIC [id number] 07:11:00 Test Item Value Reference Range Comments SODIUM (BEAKER) (test 140 meq/L 136-145 code = 381) POTASSIUM (BEAKER) (test 3.6 meq/L 3.5-5.1 code = 379) CHLORIDE (BEAKER) (test 119 meq/L 98-107 code = 382) CO2 (BEAKER) (test code = 16 meq/L 22-29 355) BLOOD UREA NITROGEN 7 mg/dL 7-21 (BEAKER) (test code = 354) CREATININE (BEAKER) (test 0.59 mg/dL 0.57-1.25 code = 358) GLUCOSE RANDOM (BEAKER) 89 mg/dL 70-105 (test code = 652) CALCIUM (BEAKER) (test 8.3 mg/dL 8.4-10.2 code = 697) EGFR (BEAKER) (test code 118 mL/min/1.73 sq m ES TIMATED GFR IS NOT = 1092) ACCURATE CREA TININE CLEARANCE IN PRE DICTING GLOMERULAR FILTR ATION RATE. ESTIMATED GFR IS NOT APPLICABLE F OR DIALYSIS PATIENT S. LIPID [id number] 07:11:00 Test Item Value Reference Range Comments TRIGLYCERIDES (BEAKER) (test code = 540) 75 mg/dL CHOLESTEROL (BEAKER) (test code = 631) 173 mg/dL HDL CHOLESTEROL (BEAKER) (test code = 976) 33 mg/dL LDL CHOLESTEROL CALCULATED (BEAKER) (test code = 125 mg/dL 633) Triglyceride Reference Range: Low Risk <150 Borderline 150-199 High Risk 200-499 Very High Risk >=500Cholesterol Reference Range: Low Risk <200 Borderline 200-239 High Risk >240HDL Cholesterol Reference Range: Low Risk >=60 High Risk <40LDL Cholesterol Reference Range: Optimal <100 Near Optimal 100-129 Borderline 130-159 High 160-189 Very High >=190TROPONIN [id number] 06:34:00 Test Item Value Reference Range Comments TROPONIN I (BEAKER) (test code = 397) < ng/mL 0.00-0.03 Troponin I (TnI) levels [...] acidosis, acute neurological disease, and persistent tachyarrhythmia.TROPONIN [id number] 23:58:00 Test Item Value Reference Range Comments TROPONIN I (BEPETER) (test code = 397) < ng/mL 0.00-0.03 Troponin I (TnI) levels [...]
--- NOTE | 2019-12-23 14:15 | EDPHYS ---
Physician Documentation [facility] Name: Natasha Spann Age: 34 yrs Sex: Female : 1985 Arrival Date: 12/23/2019 Time: 13:49 Bed 24 Private MD: ED Physician Gregor Santo HPI: 12/22 14:11 This 34 yrs old Female presents to ER via Ambulatory with complaints of Back rn Pain. 14:11 The patient presents with pain that is acute. The symptoms are located in the low back. rn 14:11 Onset: The symptoms/episode began/occurred 4 day(s) ago. The pain radiates to the right rn leg. Associated signs and symptoms: Pertinent negatives: abdominal pain, fever, incontinence, urinary retention, weakness. Modifying factors: The patient symptoms are alleviated by OTC meds, remaining still, the patient symptoms are aggravated by any movement, bending. Severity of symptoms: At their worst the symptoms were moderate, in the emergency department the symptoms are unchanged. The patient has experienced similar episodes in the past. Reports similar symptoms in past, lifted something heavy recently at work, + right lower back pain that radiates down right leg. No fever. No direct trauma. No bowel/bladder issues. NO weakness/paralysis. . 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 - Social history:: Smoking status: Patient reports the use of cigarette tobacco products, smokes one-half pack cigarettes per day, Patient/guardian denies using alcohol, street drugs. - Family history:: not pertinent. - Hospitalizations: : No recent hospitalization is reported. ROS: 14:11 Constitutional: Negative for fever, chills, and weight loss, Eyes: Negative for injury, rn pain, redness, and discharge, Cardiovascular: Negative for chest pain, palpitations, and edema, Respiratory: Negative for shortness of breath, cough, wheezing, and pleuritic chest pain, Abdomen/GI: Negative for abdominal pain, nausea, vomiting, diarrhea, and constipation, Back: + right lower back pain MS/Extremity: Negative for injury and deformity, Skin: Negative for injury, rash, and discoloration, Neuro: Negative for headache, weakness, numbness, tingling, and seizure. Exam: 14:11 Constitutional: This is a well developed, well nourished patient who is awake, alert, rn and in no acute distress. Ambulatory to bed. Back: No spinal tenderness, + right lower back tenderness, no masses Skin: Warm, dry MS/ Extremity: Pulses equal, no cyanosis. Neurovascular intact. Full, normal range of motion. Equal circumference. Neuro: Awake and alert, GCS 15. Motor strength 5/5 in all extremities. Sensory grossly intact. Vital Signs: 13:55 BP 131 / 78; Pulse 74; Resp 17; Temp 98.5; Pulse Ox 97% ; ll1 MDM: 14:02 Patient medically screened. rn 14:11 Differential diagnosis: arthritis, chronic back pain, sprain, radiculopathy, muscle rn spasm, muscle strain. Data reviewed: vital signs, nurses notes, and as a result, I will discharge patient. Counseling: I had a detailed discussion with the patient and/or guardian regarding: the historical points, exam findings, and any diagnostic results supporting the discharge/admit diagnosis, the need for outpatient follow up, to return to the emergency department if symptoms worsen or persist or if there are any questions or concerns that arise at home. Special discussion: I discussed with the patient/guardian in detail that at this point there is no indication for admission to the hospital. It is understood, however, that if the symptoms persist or worsen the patient needs to return immediately for re-evaluation. Further emergent ED testing is not indicated at this point in time. I discussed with the patient/guardian in detail the need to arrange with the PCP or specialist further outpatient testing, MRI. 14:18 ED course: PMPaware scores 200/130/000/540. . rn Administered Medications: 14:21 Drug: Decadron 10 mg Route: IM; Site: right gluteus; ll1 14:21 Drug: TORadol 30 mg Route: IM; Site: right gluteus; ll1 Disposition: 12/23/19 14:15 Discharged to Home. Impression: Radiculopathy, lumbosacral region, Strain of muscle, fascia and tendon of lower back. - Condition is Stable. - Discharge Instructions: Back Pain, Adult, Lumbosacral Radiculopathy. - Prescriptions for Cyclobenzaprine 10 mg Oral Tablet - take 1 tablet by ORAL route every 8 hours As needed; 20 tablet. Diclofenac Sodium 75 mg Oral Tablet, Delayed Release (E.C.) - take 1 tablet by ORAL route 2 times per day; 20 tablet. Medrol (Mc) 4 mg Oral Tablets, Dose Pack - take 1 tablet by ORAL route as directed - follow package instructions; 1 packet. - Medication Reconciliation Form, Thank You Letter, Antibiotic Education, Prescription Opioid Use, Work release form form. - Follow up: Private Physician; When: As needed; Reason: Recheck today's complaints, Re-evaluation by your physician. - Problem is an acute exacerbation. - Symptoms have improved. Signatures: Gregor Santo MD MD rn Calcote, Vanessa, RN RN vc Lewis, Lynsay, RN RN ll1 Corrections: (The following items were deleted from the chart) 14:40 14:15 12/23/2019 14:15 Discharged to Home. Impression: Radiculopathy, lumbosacral vc region; Strain of muscle, fascia and tendon of lower back. Condition is Stable. Forms are Medication Reconciliation Form, Thank You Letter, Antibiotic Education, Prescription Opioid Use. Follow up: Private Physician; When: As needed; Reason: Recheck today's complaints, Re-evaluation by your physician. Problem is an acute exacerbation. Symptoms have improved. rn
--- NOTE | 2019-12-23 14:15 | ER ---
Nurse's Notes [facility] Name: Natasha Spann Age: 34 yrs Sex: Female : 1985 Arrival Date: 12/23/2019 Time: 13:49 Bed 24 Private MD: Diagnosis: Radiculopathy, lumbosacral region;Strain of muscle, fascia and tendon of lower back Presentation: 12/22 13:55 Chief complaint: Patient states: Right lower back pain for 4 days that radiates down ll1 right leg. Was doing heavy lifting at work. + diarrhea. No fever. Coronavirus screen: Proceed with normal triage. Patient denies a cough. Patient denies shortness of breath or difficulty breathing. Patient denies measured and/or subjective temperature greater than 100.4F prior to today's visit. Patient denies travel on a cruise ship or to a country the [facility] currently lists as an affected area. Patient denies contact with known and/or suspected case of COVID-19. Ebola Screen: Patient denies travel to an Ebola-affected area in the 21 days before illness onset. Initial Sepsis Screen: Does the patient meet any 2 criteria? No. Patient's initial sepsis screen is negative. Does the patient have a suspected source of infection? No. Patient's initial sepsis screen is negative. Risk Assessment: Do you want to hurt yourself or someone else? Patient reports no desire to harm self or others. Onset of symptoms was December 20, 2019. 13:55 Method Of Arrival: Ambulatory ll1 13:55 Acuity: EMILY 3 ll1 Triage Assessment: 14:25 General: Appears in no apparent distress. Behavior is calm. Pain: Complains of pain in vc middle and right side of lower back Pain radiates to right leg Pain at worst was 8 out of 10 on a pain scale. level that patient reports is acceptable is 5 out of 10 on a pain scale. Also complains of inability to work. Musculoskeletal: Circulation, motion, and sensation intact. Range of motion: intact in all extremities. 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 - Social history:: Smoking status: Patient reports the use of cigarette tobacco products, smokes one-half pack cigarettes per day, Patient/guardian denies using alcohol, street drugs. - Family history:: not pertinent. - Hospitalizations: : No recent hospitalization is reported. Screenin:24 Abuse screen: Denies threats or abuse. Nutritional screening: No deficits noted. vc Tuberculosis screening: No symptoms or risk factors identified. Fall Risk None identified. Assessment: 14:25 Reassessment:. vc 14:25 General: Appears in no apparent distress. uncomfortable, Behavior is calm, cooperative, vc appropriate for age. Pain: Complains of pain in middle and right back Pain radiates to right leg Pain currently is 8 out of 10 on a pain scale. at worst was 8 out of 10 on a pain scale. level that patient reports is acceptable is 5 out of 10 on a pain scale. Neuro: Level of Consciousness is awake, alert, obeys commands, Oriented to person, place, time, situation, Appropriate for age. Cardiovascular: Patient's skin is warm and dry. Respiratory: Airway is patent Respiratory effort is even, unlabored, Respiratory pattern is regular, symmetrical. GI: No signs and/or symptoms were reported involving the gastrointestinal system. : No signs and/or symptoms were reported regarding the genitourinary system. Derm: Skin is intact, is healthy with good turgor, Skin temperature is warm. Musculoskeletal: Amputation of left leg. Range of motion: intact in right leg. Vital Signs: 13:55 BP 131 / 78; Pulse 74; Resp 17; Temp 98.5; Pulse Ox 97% ; ll1 ED Course: 13:49 Patient arrived in ED. mr 13:56 Triage completed. ll1 13:57 Arm band placed on Patient placed in an exam room, on a stretcher. ll1 14:02 Gregor Santo MD is Attending Physician. rn 14:21 Marta Worthington RN is Primary Nurse. vc 14:26 No provider procedures requiring assistance completed. Patient did not have IV access vc during this emergency room visit. 14:27 Bed in low position. Call light in reach. vc Administered Medications: 14:21 Drug: Decadron 10 mg Route: IM; Site: right gluteus; ll1 14:21 Drug: TORadol 30 mg Route: IM; Site: right gluteus; ll1 Outcome: 14:15 Discharge ordered by . rn 14:40 Patient left the ED. vc 14:40 Discharged to home ambulatory. vc 14:40 Condition: good 14:40 Discharge instructions given to patient, Instructed on discharge instructions, follow up and referral plans. no drinking with medication, no driving heavy equipment, medication usage, Demonstrated understanding of instructions, follow-up care, medications, Prescriptions given X 3. Signatures: Belinda Justice mr Gregor Santo MD MD rn Calcote, Vanessa, RN RN vc Lewis, Lynsay, RN RN ll1 Corrections: (The following items were deleted from the chart) 13:58 13:55 Chief complaint: Patient states: Right lower back pain for 4 days that radiates ll1 down right leg. Was doing heavy lifting at work. ll1 :58 13:55 Acuity: EMILY 4 ll1 ll1
[2019-12-23] MEDS ORDERED: dexAMETHasone 10 MG/ML VIAL ONE (14:22)
[2019-12-23] MEDS ORDERED: KETOROLAC 30 MG/ML INJ ONE (14:23)
[2019-12-23 14:55] VITALS: BP 131/78; TEMP 98.5; O2SAT 97
== END 2019-12-23 14:40 | disposition home or self-care (01) ==
LOC: ER 13:46
DX: S39.012A Strain of muscle, fascia and tendon of lower back, initial encounter (principal); M54.17 Radiculopathy, lumbosacral region; F17.210 Nicotine dependence, cigarettes, uncomplicated; Z88.1 Allergy status to other antibiotic agents; Z88.8 Allergy status to other drugs, medicaments and biological substances
CPT/HCPCS: 96372; 99283; J1100

== ENCOUNTER 2020-01-18 11:33 | Emergency (ER) | payer SELFPAY ==
--- OUTSIDE RECORDS SUMMARY | 2020-01-18 11:35 | XMS REPORT | Clinical Summary ---
:1985 Author Organization [facility] Address [address] [place] [address] Care Team Providers Name Role Phone Cathy Primary Care Provider Allergies Active Allergy Reactions Severity Noted Date Comments Levofloxacin In D5w Other (See Comments) High 07/15/2017 Severe joint pain Bupropion Hcl Other (See Comments) High 07/15/2017 halluc inations Medications Medication Sig Dispensed Refills Start Date End Date Status DULoxetine (CYMBALTA) 30 Take 30 mg by 0 Active MG capsuleIndications: mouth daily. anxiety with depression topiramate (TOPAMAX) 100 Take 100 mg by [...] Used Tobacco Cessation: Ready to Quit: No; Co unseling Given: No Alcohol Use Drinks/Week oz/Week Comments No Sex Assigned at Date Recorded Not on file Job Start Date Occupation Industry Not on file Not on file Not on file Travel History Travel Start Travel End No recent travel history available. Last Filed Vital Signs Not on file Plan of Treatment Not on file Results Not on fileafter 01/17/2019 Insurance Payer Benefit Plan / Group Subscriber ID Type Phone A ddress xxxxxxxxx Other Govt (, [place], [facility], etc.) Advance Directives For more information, please contact:[place] [id number] [place], [place] [phone] Code Status Date Activated Date Inactivated Comments Full Code 07/15/2017 10:38 PM 07/16/2017 5:00 PM This code status was determined by: Patient
--- OUTSIDE RECORDS SUMMARY | 2020-01-18 11:35 | XMS REPORT | Clinical Summary ---
:1985 Author Organization [facility] Address [facility] [place] [address] Care Team Providers Name Role Phone Unavailable Primary Care Provider Unavailable Allergies Active Allergy Reactions Severity Noted Date Comments Benztropine Swelling 04/16/2015 Levofloxacin Other 04/16/2015 Joint Pain Bupropion Hcl Other 04/16/2015 Gets homicidal Medications Medication Sig Dispensed Refills Start Date End Date Status ARIPIPRAZOLE (ABILIFY Take by mouth. 0 Active OR) DULOXETINE HCL Take by mouth. 0 Active (CYMBALTA OR) TOPIRAMATE (TOPAMAX OR) Take by mouth. 0 Active TRAZODONE HCL Take by mouth. 0 A ctive (TRAZODONE OR) PROPRANOLOL HCL Take by mouth. 0 Active (PROPRANOLOL OR) HYDROXYZINE HCL OR Take by mouth. 0 Active budesonide-formoterol Inhale 2 Puffs by 6.9 g 0 04/16/2015 Active (SYMBICORT) 80-4.5 mouth 2 times mcg/actuation daily Rinse mouth inhalerIndications: after each use.. Unspecified chronic bronchitis ibuprofen (MOTRIN) 200 Take 4 tablets by 30 tablet 0 5 Active mg tabletIndications: mouth every 6 Tooth infection hours as needed for Pain. Active Problems Problem Noted Date Pelvic pain in female 04/08/2017 Homeless 04/16/2015 Unspecified chronic bronchitis 04/16/2015 Chronic low back pain 04/16/2015 Tobacco abuse counseling 04/16/2015 Overview: Discuss health risks associated with tob acco smoking; strongly advise smoking cessation. Tobacco use disorder 04/16/2015 Anxiety and depression 04/16/2015 Family History Medical History Relation Name Comments Diabetes Brother Relation Name Status Comments Brother Alive Mother Alive Sister Alive Social History Tobacco Use Types Packs/Day Years Used Date Current Every Day Smoker Cigarettes 1 16 Smokeless Tobacco: Never Used Tobacco Cessation: Ready to Quit: No Alcohol Use Drinks/Week oz/Week Comments Yes last drink 5 Sex Assigned at Date Recorded Not on file Job Start Date Occupation Industry Not on file Not on file Not on file Travel History Travel Start Travel End No recent travel history available. Last Filed Vital Signs Not on file Plan of Treatment Health Maintenance Due Date Last Done Comments Cervical Cancer Scrn (3 Yrs) 2006 IMM Influenza Seasonal May to October (>/= 19 yrs) 05/21/2020 Results Not on fileafter 01/17/2019 Insurance Payer Benefit Plan / Subscriber ID Effective Phone Address T ype Group Dates HOMELESS TERESA HOMELESS TERESA 2015-Pres [phone] [place] [address] [facility] SELF-PAY SELF-PAY xxxxxxxxx 2017-Pres [phone] [place] [address]
--- OUTSIDE RECORDS SUMMARY | 2020-01-18 11:35 | XMS REPORT | Clinical Summary ---
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
--- NOTE | 2020-01-18 12:46 | RAD REPORT ---
EXAM DESCRIPTION: RAD - Tib Fib Left - 01/18/2020 12:38 pm CLINICAL HISTORY: r/o osteo;Pain Pain and swelling COMPARISON: Tib Fib Left dated 11/02/2019 FINDINGS: Slcil-myi-ymhd amputation is noted without significant change since comparative study. Sof t tissue wound is present laterally along the stump. No underlying radiographic evidence of osteomyel itis seen.
[2020-01-18 13:07] LABS: Absolute Lymphocytes (CBC) 4.5 K/uL (0.7-4.9); Basophils % 0.6 % (0-1.3); Hematocrit 39.4 % (36.0-45.0); Lymphocytes % 36.8 % (15.3-44.8); MPV 7.8 fL (7.6-11.3); RBC Red Blood Cell Count 4.32 M/uL (3.86-4.86)
[2020-01-18 13:25] LABS: BUN Blood Urea Nitrogen 8 mg/dL (7-18); Bicarbonate 24 mmol/L (21-32); C-Reactive Protein 5.56 mg/L (<3.00); Glucose Level 94 mg/dL (74-106); Sodium Level 136 mmol/L (136-145)
[2020-01-18 15:08] VITALS: TEMP 98.6
[2020-01-18 15:09] VITALS: O2SAT 98
[2020-01-18 15:13] VITALS: BP 120/71
--- NOTE | 2020-01-20 17:58 | ER ---
Nurse's Notes [facility] Name: Natasha Spann Age: 34 yrs Sex: Female : 1985 Arrival Date: 01/18/2020 Time: 11:34 Bed 19 Private MD: Diagnosis: Open wound of lower leg Presentation: 01/17 12:03 Chief complaint: Patient states: abscess on stump x 2 months. BKA done on 2009. ca1 Prescribed amox yesterday by PCP. Reports pain and foul smelling drainage from abscess. Denies fever. Coronavirus screen: Proceed with normal triage. Patient denies a cough. Patient denies shortness of breath or difficulty breathing. Patient denies measured and/or subjective temperature greater than 100.4F prior to today's visit. Patient denies travel on a cruise ship or to a country the [facility] currently lists as an affected area. Patient denies contact with known and/or suspected case of COVID-19. Ebola Screen: Patient negative for fever greater than or equal to 101.5 degrees Fahrenheit, and additional compatible Ebola Virus Disease symptoms Patient denies exposure to infectious person. Patient denies travel to an Ebola-affected area in the 21 days before illness onset. No symptoms or risks identified at this time. Initial Sepsis Screen: Does the patient meet any 2 criteria? No. Patient's initial sepsis screen is negative. Does the patient have a suspected source of infection? No. Patient's initial sepsis screen is negative. Risk Assessment: Do you want to hurt yourself or someone else? Patient reports no desire to harm self or others. Onset of symptoms was January 18, 2020. 12:03 Method Of Arrival: Ambulatory ca1 12:03 Acuity: EMILY 3 ca1 Triage Assessment: 12:12 General: Appears in no apparent distress. comfortable, Behavior is calm, cooperative, ca1 appropriate for age. Pain: Complains of pain in lateral aspect of left knee Pain does not radiate. Pain currently is 6 out of 10 on a pain scale. EENT: No signs and/or symptoms were reported regarding the EENT system. Neuro: Level of Consciousness is awake, alert, obeys commands, Oriented to person, place, time, situation, Appropriate for age. Cardiovascular: Heart tones S1 S2 present Capillary refill < 3 seconds Patient's skin is warm and dry. Respiratory: Airway is patent Respiratory effort is even, unlabored, Respiratory pattern is regular, symmetrical, Breath sounds are clear bilaterally. GI: Abdomen is round non-distended, Bowel sounds present X 4 quads. Abd is soft and non tender X 4 quads. : No signs and/or symptoms were reported regarding the genitourinary system. Derm: Skin is healthy with good turgor, Skin is pink, warm \T\ dry. Abscess located on lateral aspect of left knee is dime sized, has purulent drainage, has foul odor. Musculoskeletal: Amputation of Circulation, motion, and sensation intact. Capillary refill < 3 seconds. 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 - Social history:: Smoking status: Patient reports the use of cigarette tobacco products, smokes one pack cigarettes per day. Screenin:14 Abuse screen: Denies threats or abuse. Denies injuries from another. Nutritional ca1 screening: No deficits noted. Tuberculosis screening: No symptoms or risk factors identified. Fall Risk Secondary diagnosis (15 points) impaired mobility, IV access (20 points). Gait- Impaired (20 pts.). Total Steve Fall Scale indicates High Risk Score (45 or more points). Fall prevention measures have been instituted. Side Rails Up X 2 As available patient and family educated on Fall Prevention Program and Strategies. Assessment: 12:14 Reassessment: SEE TRIAGE NOTES. ca1 13:22 Reassessment: Patient appears in no apparent distress at this time. Patient and/or ca1 family updated on plan of care and expected duration. Pain level reassessed. Patient is alert, oriented x 3, equal unlabored respirations, skin warm/dry/pink. 14:40 Reassessment: Patient appears in no apparent distress at this time. Patient is alert, ca1 oriented x 3, equal unlabored respirations, skin warm/dry/pink. Vital Signs: 12:03 BP 133 / 92; Pulse 86; Resp 17 S; Temp 98.6(O); Pulse Ox 99% on R/A; Weight 87.09 kg ca1 (R); Height 5 ft. 8 in. (172.72 cm) (R); Pain 6/10; 13:22 BP 96 / 59; Pulse 76; Resp 15 S; Pulse Ox 98% ; ca1 14:00 BP 97 / 56; Pulse 81; Resp 16 S; Pulse Ox 98% on R/A; ca1 14:04 BP 113 / 75; ca1 14:40 BP 120 / 71; Pulse 81; Resp 16 S; Pulse Ox 98% on R/A; ca1 12:03 Body Mass Index 29.19 (87.09 kg, 172.72 cm) ca1 ED Course: 11:34 Patient arrived in ED. ag5 12:03 Herminia Marie, JONY is Primary Nurse. ca1 12:07 Triage completed. ca1 12:11 Kian Escobedo PA is PHCP. jr8 12:11 Ad Alston MD is Attending Physician. jr8 12:12 Arm band placed on right wrist. ca1 12:14 Patient has correct armband on for positive identification. Bed in low position. Call ca1 light in reach. Side rails up X 1. Pulse ox on. NIBP on. 12:14 No provider procedures requiring assistance completed. ca1 12:38 XRAY Tib Fib LEFT In Process Unspecified. EDMS 12:44 Inserted saline lock: 22 gauge in right hand, using aseptic technique. Blood collected. ss 14:57 IV discontinued, intact, bleeding controlled, No redness/swelling at site. Pressure ss dressing applied. Administered Medications: No medications were administered Outcome: 14:50 Discharge ordered by . jr8 14:57 Discharged to home ambulatory. ss 14:57 Condition: good 14:57 Discharge instructions given to patient, Instructed on discharge instructions, follow up and referral plans. medication usage, Demonstrated understanding of instructions, follow-up care, medications, Prescriptions given X 1. 14:58 Patient left the ED. ss Signatures: Dispatcher [employer] EDMS Fabiola Maxwell RN RN Kian Escobedo PA PA jr8 Herminia Marie RN RN [facility] Yancy Lomax ag5
--- NOTE | 2020-01-20 17:58 | EDPHYS ---
Physician Documentation [facility] Name: Natasha Spann Age: 34 yrs Sex: Female : 1985 Arrival Date: 01/18/2020 Time: 11:34 Bed 19 Private MD: ED Physician Ad Alston HPI: 01/17 12:28 This 34 yrs old Female presents to ER via Ambulatory with complaints of Wound jr8 Check, Leg Pain. 12:28 The affected area is on the left leg. The patient has experienced a previous episode. jr8 The patient has been recently seen by a physician:. 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 Stated that she noticed small spot to lower lateral stump region where it has become increasingly painful and now draining. Stated that this started about 2 months ago. Saw PCP the other day and was started on Amoxil and was given orders to have imaging completed but has not had her imaging appointment yet. Came to ED today for worsening of pain and foul smelling discharge . 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 - Social history:: Smoking status: Patient reports the use of cigarette tobacco products, smokes one pack cigarettes per day. ROS: 12:28 Eyes: Negative for injury, pain, redness, and discharge, ENT: Negative for injury, jr8 pain, and discharge, Neck: Negative for injury, pain, and swelling, Cardiovascular: Negative for chest pain, palpitations, and edema, Respiratory: Negative for shortness of breath, cough, wheezing, and pleuritic chest pain, Abdomen/GI: Negative for abdominal pain, nausea, vomiting, diarrhea, and constipation, Back: Negative for injury and pain, MS/Extremity: Negative for injury and deformity, Neuro: Negative for headache, weakness, numbness, tingling, and seizure. 12:28 Skin: Positive for erythema, swelling, of the lateral aspect of left proximal tibia. Exam: 12:28 Constitutional: This is a well developed, well nourished patient who is awake, alert, jr8 and in no acute distress. Cardiovascular: Regular rate and rhythm with a normal S1 and S2. No gallops, murmurs, or rubs. Normal PMI, no JVD. No pulse deficits. Respiratory: Lungs have equal breath sounds bilaterally, clear to auscultation and percussion. No rales, rhonchi or wheezes noted. No increased work of breathing, no retractions or nasal flaring. Abdomen/GI: Soft, non-tender, with normal bowel sounds. No distension or tympany. No guarding or rebound. No evidence of tenderness throughout. Back: No spinal tenderness. No costovertebral tenderness. Full range of motion. MS/ Extremity: Pulses equal, no cyanosis. Neurovascular intact. Full, normal range of motion. Neuro: Awake and alert, GCS 15, oriented to person, place, time, and situation. Cranial nerves II-XII grossly intact. Motor strength 5/5 in all extremities. Sensory grossly intact. Cerebellar exam normal. Normal gait. 12:28 Skin: small approximately 2.5 cm mildly red lesion that is swollen and very tender to touch. No active draining at this time. No surrounding cellulitis noted. No lymphangitis noted. Vital Signs: 12:03 BP 133 / 92; Pulse 86; Resp 17 S; Temp 98.6(O); Pulse Ox 99% on R/A; Weight 87.09 kg ca1 (R); Height 5 ft. 8 in. (172.72 cm) (R); Pain 6/10; 13:22 BP 96 / 59; Pulse 76; Resp 15 S; Pulse Ox 98% ; ca1 14:00 BP 97 / 56; Pulse 81; Resp 16 S; Pulse Ox 98% on R/A; ca1 14:04 BP 113 / 75; ca1 14:40 BP 120 / 71; Pulse 81; Resp 16 S; Pulse Ox 98% on R/A; ca1 12:03 Body Mass Index 29.19 (87.09 kg, 172.72 cm) ca1 MDM: 12:11 Patient medically screened. jr8 13:57 Data reviewed: vital signs, nurses notes, lab test result(s), radiologic studies, plain jr8 films. Data interpreted: Pulse oximetry: on room air is 98 %. Interpretation: normal. Counseling: I had a detailed discussion with the patient and/or guardian regarding: the historical points, exam findings, and any diagnostic results supporting the discharge/admit diagnosis, lab results, radiology results, the need for outpatient follow up, a family practitioner, a general surgeon, to return to the emergency department if symptoms worsen or persist or if there are any questions or concerns that arise at home. ED course: At this time no identifiable systemic blood stream infection or osteomyelitis identified. Recommend that we start her on bactrim as well. To f/u with GS for wound management. If worse to come back. Patient good with this plan . 01/17 12:26 Order name: CBC with Diff; Complete Time: 13:36 jr8 01/17 12:26 Order name: Basic Metabolic Panel; Complete Time: 13:36 jr8 01/17 12:22 Order name: XRAY Tib Fib LEFT; Complete Time: 12:48 jr8 01/17 12:26 Order name: Westergren Sedrate; Complete Time: 13:36 jr8 01/17 12:26 Order name: C-Reactive Protein; Complete Time: 13:36 jr8 01/17 12:26 Order name: Procalcitonin; Complete Time: 13:56 jr8 01/17 12:26 Order name: IV; Complete Time: 12:43 jr8 Administered Medications: No medications were administered Disposition: 15:36 Co-signature as Attending Physician, Ad Alston MD I agree with the assessment and kdr plan of care. Disposition: 01/18/20 14:50 Discharged to Home. Impression: Open wound of lower leg. - Condition is Stable. - Discharge Instructions: Wound Care. - Prescriptions for Bactrim DS 800- 160 mg Oral Tablet - take 1 tablet by ORAL route every 12 hours for 10 days; 20 tablet. - Medication Reconciliation Form, Thank You Letter, Antibiotic Education, Prescription Opioid Use form. - Follow up: Private Physician; When: 2 - 3 days; Reason: Recheck today's complaints, Continuance of care, Re-evaluation by your physician. - Problem is new. - Symptoms have improved. Signatures: Dispatcher [employer] EDMS Ad Alston MD MD [facility] Fabiola Maxwell RN RN Kian Escobedo PA PA 8 Herminia Marie RN RN ca1 Corrections: (The following items were deleted from the chart) 14:58 14:50 01/18/2020 14:50 Discharged to Home. Impression: Open wound of lower leg. ss Condition is Stable. Forms are Medication Reconciliation Form, Thank You Letter, Antibiotic Education, Prescription Opioid Use. Follow up: Private Physician; When: 2 - 3 days; Reason: Recheck today's complaints, Continuance of care, Re-evaluation by your physician. Problem is new. Symptoms have improved. jr8
== END 2020-01-18 14:58 | disposition home or self-care (01) ==
LOC: ER 11:33
DX: S81.802A Unspecified open wound, left lower leg, initial encounter (principal); Z89.512 Acquired absence of left leg below knee; F17.210 Nicotine dependence, cigarettes, uncomplicated; Z88.1 Allergy status to other antibiotic agents; Z88.8 Allergy status to other drugs, medicaments and biological substances
CPT/HCPCS: 36415; 80048; 84145; 85025; 85652; 86140; 99284

== ENCOUNTER 2020-02-19 13:30 | Emergency (ER) | payer SELFPAY ==
[2020-02-19] MEDS ORDERED: VANCOMYCIN/NS 1 gm 1 GM/250 ML BAG IV ONE (14:30)
--- NOTE | 2020-02-19 15:06 | RAD REPORT ---
EXAM DESCRIPTION: RAD - Tib Fib Left - 02/19/2020 2:59 pm CLINICAL HISTORY: Lateral left leg wound, below-knee amputation COMPARISON: Left tib-fib January 18, 2020, November 02, 2019 FINDINGS: Sclerotic focus in the lateral aspect of the tibia has not change from prior imaging. Ther e are no bone destructive changes identifiable. No acute bone or joint finding seen. Soft tissue edema changes are present. No air or foreign body in the soft tissues. IMPRESSION: No acute bone or joint finding. No bone or joint changes back to October 2019. No air or foreign body in the soft tissues.
--- NOTE | 2020-02-19 15:13 | RAD REPORT ---
EXAM DESCRIPTION: US - Extremity Nonvascular Limited - 02/19/2020 2:49 pm CLINICAL HISTORY: swelling and drainage from the site;Pain COMPARISON: Extremity Nonvascular Limited dated 07/02/2016 FINDINGS: In the soft tissues of the left lower leg, immediately inferior to the lateral left leg wo und there are 2 hypoechoic foci identifiable 7 mm and 13 mm in size. Skin thickening and edema are pr esent in this region. The 2 small hypoechoic foci nonspecific. These do not have clearly lymph node characteristics. Small infected or noninfected fluid collections are possible.
[2020-02-19] MEDS ORDERED: HYDROCODONE/APAP 10/325 TAB ONE (15:18)
[2020-02-19 15:30] LABS: Absolute Lymphocytes (CBC) 4.4 K/uL (0.7-4.9); Basophils % 0.5 % (0-1.3); Hematocrit 39.5 % (36.0-45.0); Lymphocytes % 39.9 % (15.3-44.8)
[2020-02-19 15:33] LABS: BUN Blood Urea Nitrogen 8 mg/dL (7-18); Bicarbonate 24 mmol/L (21-32); Glucose Level 89 mg/dL (74-106); Potassium 3.9 mmol/L (3.5-5.1); Sodium Level 138 mmol/L (136-145)
--- NOTE | 2020-02-19 16:24 | ER ---
Nurse's Notes [facility] Name: Natasha Spann Age: 34 yrs Sex: Female : 1985 Arrival Date: 02/19/2020 Time: 13:32 Bed 15 Private MD: Diagnosis: Cellulitis of left lower limb Presentation: 02/18 13:48 Chief complaint: Patient states: wound on amputated left, has finished taking em antibiotics, has not been able to get into wound healing, denies fever. Coronavirus screen: Proceed with normal triage. Patient denies a cough. Patient denies shortness of breath or difficulty breathing. Patient denies measured and/or subjective temperature greater than 100.4F prior to today's visit. Patient denies travel on a cruise ship or to a country the [facility] currently lists as an affected area. Patient denies contact with known and/or suspected case of COVID-19. Ebola Screen: Patient negative for fever greater than or equal to 101.5 degrees Fahrenheit, and additional compatible Ebola Virus Disease symptoms Patient denies exposure to infectious person. Patient denies travel to an Ebola-affected area in the 21 days before illness onset. No symptoms or risks identified at this time. Initial Sepsis Screen: Does the patient meet any 2 criteria? No. Patient's initial sepsis screen is negative. Does the patient have a suspected source of infection? Yes: Skin breakdown/wound. Risk Assessment: Do you want to hurt yourself or someone else? Patient reports no desire to harm self or others. Onset of symptoms was February 19, 2020. 13:48 Method Of Arrival: Ambulatory em 13:48 Acuity: EMILY 3 em Triage Assessment: 15:44 General: Appears. ph Historical: - Allergies: 13:51 bupropion HCl; em 13:51 Levofloxacin; em 13:51 Wellbutrin; em - PMHx: 13:51 ADD/ADHD; Anxiety; Bipolar disorder; Depression; Endometrosis; Gastric Reflux; MRSA; em osteomylitis; Ovarian cyst; UTI; - PSHx: 13:51 L BKA; em - Immunization history:: Adult Immunizations up to date. - Social history:: Smoking status: Patient reports the use of cigarette tobacco products, smokes one pack cigarettes per day. Screenin:52 Abuse screen: Denies threats or abuse. Denies injuries from another. Nutritional ph screening: No deficits noted. Tuberculosis screening: No symptoms or risk factors identified. Fall Risk No fall in past 12 months (0 pts). Secondary diagnosis (15 points) impaired mobility, IV access (20 points). Ambulatory Aid- None/Bed Rest/Nurse Assist (0 pts). Gait- Impaired (20 pts.). Mental Status- Oriented to own ability (0 pts). Total Steve Fall Scale indicates No Risk (0-24 pts). Assessment: 16:25 Reassessment: Patient appears in no apparent distress at this time. Patient and/or ph family updated on plan of care and expected duration. Pain level reassessed. Patient is alert, oriented x 3, equal unlabored respirations, skin warm/dry/pink. Pt sitting up in bed eating sandwich and chips, tolerating well, d/c pending completion of IV Vancomycin. Vital Signs: 13:48 BP 133 / 88; Pulse 74; Resp 18; Temp 98.5(O); Pulse Ox 98% on R/A; Weight 86.18 kg; em Height 5 ft. 8 in. (172.72 cm); Pain 6/10; 15:44 BP 109 / 66; Pulse 59; Resp 16; Pulse Ox 95% on R/A; ph 17:00 BP 112 / 76; Pulse 62; Resp 18; Temp 97.9; Pulse Ox 99% on R/A; ph 13:48 Body Mass Index 28.89 (86.18 kg, 172.72 cm) em ED Course: 13:32 Patient arrived in ED. ag5 13:51 Triage completed. em 13:51 Ad Alston MD is Attending Physician. kdr 13:51 Arm band placed on. em 13:52 Sylvia Wall, JONY is Primary Nurse. ph 13:53 Patient has correct armband on for positive identification. Placed in gown. Bed in low ph position. Call light in reach. Side rails up X 1. Pulse ox on. NIBP on. Door closed. Noise minimized. Warm blanket given. 14:45 US Extrmty Nonvasular Limited In Process Unspecified. EDMS 15:00 Tib Fib Left XRAY In Process Unspecified. EDMS 15:15 Missed attempt(s): 22 gauge in right antecubital area. Bleeding controlled, band aid ph applied, catheter tip intact. 15:40 Inserted saline lock: 22 gauge in right antecubital area, using aseptic technique. ph 17:15 No provider procedures requiring assistance completed. ph 18:15 IV discontinued, intact, bleeding controlled, No redness/swelling at site. Pressure ph dressing applied. Administered Medications: 15:35 Drug: Cefepime 1 grams Route: IVPB; Rate: 200 ml/hr; Infused Over: 30 mins; Site: right ph antecubital; 16:05 Follow up: Response: No adverse reaction; IV Status: Completed infusion ph 15:35 Drug: [facility] 10 mg-325 mg 1 tabs Route: PO; ph 16:00 Follow up: Response: No adverse reaction ph 16:15 Drug: vancoMYCIN 1 grams Route: IVPB; Infused Over: 2 hrs; Site: right antecubital; ph 17:56 Follow up: Response: No adverse reaction; IV Status: Completed infusion ph Outcome: 16:24 Discharge ordered by . kdr 18:18 Patient left the ED. ph 18:18 Discharged to home ambulatory. ph 18:18 Condition: good 18:18 Discharge instructions given to patient, Instructed on discharge instructions, follow up and referral plans. medication usage, Demonstrated understanding of instructions, follow-up care, medications, Prescriptions given X 2. Signatures: Dispatcher [employer] Ad Davis MD MD kdr Guanakito Jimenez RN RN Sylvia Wall RN RN Yancy Lomax ag5 Corrections: (The following items were deleted from the chart) 16:48 06:15 vancoMYCIN 1 grams IVPB in right antecubital over 2 hrs ph ph 19:22 17:15 IV discontinued, intact, bleeding controlled, No redness/swelling at site. ph Pressure dressing applied, ph
--- NOTE | 2020-02-19 16:24 | EDPHYS ---
Physician Documentation [facility] Name: Natasha Spann Age: 34 yrs Sex: Female : 1985 Arrival Date: 02/19/2020 Time: 13:32 Bed 15 Private MD: ED Physician Ad Alston HPI: 02/19 08:07 This 34 yrs old Female presents to ER via Ambulatory with complaints of Wound kdr Check. 08:07 Patient presents to ED for recheck of: abscess, cellulitis, Draining wound to left BKA kdr site. The affected area is on the left martinez. Previous treatment: The patient was on Amoxicillin and Bactrim for about 10 days. She has been off abx for about a month. The patient has experienced similar episodes in the past, chronically. The patient has not recently seen a physician. Historical: - Allergies: 02/18 13:51 bupropion HCl; em 13:51 Levofloxacin; em 13:51 Wellbutrin; em - PMHx: 13:51 ADD/ADHD; Anxiety; Bipolar disorder; Depression; Endometrosis; Gastric Reflux; MRSA; em osteomylitis; Ovarian cyst; UTI; - PSHx: 13:51 L BKA; em - Immunization history:: Adult Immunizations up to date. - Social history:: Smoking status: Patient reports the use of cigarette tobacco products, smokes one pack cigarettes per day. ROS: 02/19 08:07 Constitutional: Negative for fever, chills, and weight loss, Eyes: Negative for injury, kdr pain, redness, and discharge, ENT: Negative for injury, pain, and discharge, Neck: Negative for injury, pain, and swelling, Cardiovascular: Negative for chest pain, palpitations, and edema, Respiratory: Negative for shortness of breath, cough, wheezing, and pleuritic chest pain, Abdomen/GI: Negative for abdominal pain, nausea, vomiting, diarrhea, and constipation, Back: Negative for injury and pain, : Negative for injury, bleeding, discharge, and swelling, Neuro: Negative for headache, weakness, numbness, tingling, and seizure activity. Psych: Negative for depression, anxiety, suicide ideation, homicidal ideation, and hallucinations, Allergy/Immunology: Negative for hives, rash, and allergies, Endocrine: Negative for neck swelling, polydipsia, polyuria, polyphagia, and marked weight changes, Hematologic/Lymphatic: Negative for swollen nodes, abnormal bleeding, and unusual bruising. MS/extremity: Positive for Left BKA, Negative for Skin: Positive for abscess, Draining on lateral aspect of BKA stump. Exam: 08:07 Constitutional: This is a well developed, well nourished patient who is awake, alert, kdr and in no acute distress. Head/Face: Normocephalic, atraumatic. 08:07 Skin: abscess, that is small, with induration, Draining and with mild induration , cellulitis, that is minimal, induration, that is mild is noted. Vital Signs: 02/18 13:48 BP 133 / 88; Pulse 74; Resp 18; Temp 98.5(O); Pulse Ox 98% on R/A; Weight 86.18 kg; em Height 5 ft. 8 in. (172.72 cm); Pain 6/10; 15:44 BP 109 / 66; Pulse 59; Resp 16; Pulse Ox 95% on R/A; ph 17:00 BP 112 / 76; Pulse 62; Resp 18; Temp 97.9; Pulse Ox 99% on R/A; ph 13:48 Body Mass Index 28.89 (86.18 kg, 172.72 cm) em MDM: 16:24 Patient medically screened. kdr 02/19 08:07 Data reviewed: vital signs, nurses notes, lab test result(s), radiologic studies. kdr Counseling: I had a detailed discussion with the patient and/or guardian regarding: the historical points, exam findings, and any diagnostic results supporting the discharge/admit diagnosis, lab results, radiology results, the need for outpatient follow up. 02/18 14:09 Order name: CBC with Diff; Complete Time: 15:58 kdr 02/18 14:09 Order name: Chem 7; Complete Time: 15:58 kdr 02/18 14:09 Order name: US Extrmty Nonvasular Limited; Complete Time: 15:16 kdr 02/18 14:09 Order name: Tib Fib Left XRAY; Complete Time: 15:16 kdr 02/18 16:38 Order name: ESR; Complete Time: 18:04 kdr 02/18 16:38 Order name: Procalcitonin; Complete Time: 18:04 kdr Administered Medications: 02/18 15:35 Drug: Cefepime 1 grams Route: IVPB; Rate: 200 ml/hr; Infused Over: 30 mins; Site: right ph antecubital; 16:05 Follow up: Response: No adverse reaction; IV Status: Completed infusion ph 15:35 Drug: [place] 10 mg-325 mg 1 tabs Route: PO; ph 16:00 Follow up: Response: No adverse reaction ph 16:15 Drug: vancoMYCIN 1 grams Route: IVPB; Infused Over: 2 hrs; Site: right antecubital; ph 17:56 Follow up: Response: No adverse reaction; IV Status: Completed infusion ph Disposition: 02/19/20 16:24 Discharged to Home. Impression: Cellulitis of left lower limb. - Condition is Stable. - Discharge Instructions: Cellulitis, Adult, [id number]. - Prescriptions for Tylenol- Codeine #3 300-30 mg Oral Tablet - take 2 tablets by ORAL route every 6 hours As needed; 16 tablet. cefdinir 300 mg Oral capsule - take 1 capsule by ORAL route every 12 hours for 14 days; 28 capsule. - Medication Reconciliation Form, Thank You Letter, Antibiotic Education, Prescription Opioid Use, Work release form form. - Follow up: Private Physician; When: 2 - 3 days; Reason: If symptoms return, Further diagnostic work-up, Recheck today's complaints, Continuance of care, Re-evaluation by your physician. - Problem is an ongoing problem. - Symptoms have improved. Signatures: Dispatcher [employer] EDWI Ad Alston MD MD [facility] Guanakito Jimenez RN RN Sylvia Wall RN RN ph Corrections: (The following items were deleted from the chart) 18:18 16:24 02/19/2020 16:24 Discharged to Home. Impression: Cellulitis of left lower limb. ph Condition is Stable. Forms are Medication Reconciliation Form, Thank You Letter, Antibiotic Education, Prescription Opioid Use. Follow up: Private Physician; When: 2 - 3 days; Reason: If symptoms return, Further diagnostic work-up, Recheck today's complaints, Continuance of care, Re-evaluation by your physician. Problem is an ongoing problem. Symptoms have improved. kdr
[2020-02-19 18:28] VITALS: TEMP 98.5
[2020-02-19 18:30] VITALS: BP 109/66; O2SAT 95
--- OUTSIDE RECORDS SUMMARY | 2020-02-19 18:41 | XMS REPORT | Clinical Summary ---
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
--- OUTSIDE RECORDS SUMMARY | 2020-02-19 18:41 | XMS REPORT | Clinical Summary ---
:1985 Author Organization [facility] Address [facility] [place] [address] Care Team Providers Name Role Phone Unavailable [...] 19 yrs) 05/21/2020 Results Not on fileafter 02/18/2019 Insurance Payer Benefit Plan / Subscriber ID Effective Phone Address T ype Group Dates HOMELESS TERESA HOMELESS TERESA 2015-Pres [phone] [place] [address] [facility] SELF-PAY SELF-PAY xxxxxxxxx 2017-Pres [phone] [place] [address]
--- OUTSIDE RECORDS SUMMARY | 2020-02-19 18:42 | XMS REPORT | Clinical Summary ---
:1985 Author Organization [facility] Address [address] [place] [address] Care Team Providers Name Role Phone Cathy Primary Care Provider Allergies Active Allergy Reactions Severity Noted Date Comments Levofloxacin In D5w Other (See Comments) High 07/15/2017 Severe joint pain Bupropion Hcl Other (See Comments) High 07/15/2017 halluc inations Medications Medication Sig Dispensed Refills Start Date End Date Status DULoxetine (CYMBALTA) 30 Take 30 mg by 0 Active MG capsuleIndications: mouth daily. anxiousness associated with depression topiramate (TOPAMAX) 100 Take 100 mg by 0 Active MG tablet mouth 2 (two) times daily. omeprazole (PRILOSEC) 40 Take 40 mg by 0 Active MG capsuleIndications: mouth daily. gastroesophageal reflux disease hydrOXYzine (ATARAX) 25 MG Take 25 mg by 0 Active tabletIndications: anxious mouth 4 (four) times daily. propranolol (INDERAL) [...] Not on file Results Not on fileafter 02/18/2019 Insurance Payer Benefit Plan / Group Subscriber ID Type Phone A ddress xxxxxxxxx Other Govt (, [place], [employer], etc.) Advance Directives For more information, please contact:[address] [phone] Code Status Date Activated Date Inactivated Comments Full Code 07/15/2017 10:38 PM 07/16/2017 5:00 PM This code status was determined by: Patient
--- OUTSIDE RECORDS SUMMARY | 2020-02-19 18:42 | XMS REPORT | Continuity of Care Document ---
:1985 Author Organization [facility] t Address [address] [place] [address] Care Team Providers Name Role Phone Freddy ARANGO Primary Care Physician Concepcion DE LEON Attending Clinician Maribel Plasencia Attending Clinician BINTA FOLEY Attending Clinician Unavailable BINTA FOLEY Admitting Clinician Unavailable Problems Condition Condition Condition Status Onset Resolution Last Treating Co mments Source Name Details Category Date Date Treatment Clinician Date Chest pain Chest pain Disease Active 2016-[address] [facility]14 [facility] [address] Pelvic Pelvic Disease Active Raghu pain in pain in 04-08 Health female female 00:00: 00 Homeless Homeless Disease Active Harri s 04-16 Health 00:00: 00 Unspecifie Unspecifie Disease Active H arris d chronic d chronic 04-16 Heal th bronchitis bronchitis 00:00: 00 Chronic Chronic Disease Active Raghu low back low back 04-16 Health pain pain 00:00: 00 Tobacco Tobacco Disease Active Overview: Anette is abuse abuse 04-16 Discuss Health counseling counseling 00:00: health 00 risks associate d with tobacco smoking; strongly advise smoking cessation . Tobacco Tobacco Disease Active Raghu use use 04-16 Health disorder disorder 00:00: 00 Anxiety Anxiety Disease Active Krishnamurthy and and 04-16 Health depression depression 00:00: 00 Allergies, Adverse Reactions, Alerts Allergy Allergy Status Severity Reaction(s) Onset Inactive Treating Comm ents Source Name Type Date Date Clinician Levoflox Propensi Active Other (See 2016-[address] [facility] In ty to Comments) 09-14 joint [facility] - D[facility] adverse 00:00: pain Medical reaction 00 Center s Bupropio Propensi Active Other (See 2016-[address] [facility] ty to Comments) 09-14 tions [facility] - adverse 00:00: Medical reaction 00 Center s Levoflox Propensi Active [place] ty [...] Diagnosis Comments Start Date Stop Date Source Maternal aunt Coronary artery [facility] Maternal grandmother Coronary artery [facility] Natural mother Coronary artery [facility] Natural brother Diabetes [facility] maxim Social History Social Habit Start Date Stop Date Quantity Comments Source History of tobacco Cigarette Smoker [facility] use Sex Assigned At [facility] alth Cigarettes smoked 2015-04-20 2015-04-20 [facility] current (pack per 00:00:00 00:00:00 day) - Reported Cigarette 2015-04-20 2015-04-20 [facility] pack-years 00:00:00 00:00:00 Alcohol intake 2015-04-20 2015-04-20 [facility] lt 00:00:00 00:00:00 Alcohol Comment 2015-04-16 2015-04-16 last drink 02/2015 [facility] 00:00:00 00:00:00 Smoking Status Start Date Stop Date Source Never smoker Karlos colon Current every day smoker 2015-04-20 00:00:[address] [facility] Medications Ordered Filled Start Stop Current Ordering Indication Dosage Frequency Signature Comments Components Source Medication Medication Date Date Medication? Clinician (SIG) Name Name DULoxetine 2016-08 Yes anxiousness 30mg QD Take [address] [facility] (CYMBALTA) 1-25 associated by mouth [facility] - 30 MG 22:01: with daily. Medical capsule 26 depression Center topiramate 2016-08 Yes 100mg Q.5D Take [address] (TOPAMAX) 1-25 mg by [facility] - 100 MG 22:01: mouth 2 Medical tablet 26 (two) Center times daily. omeprazole 2016-08 Yes gastroesoph 40mg QD Take [address] [address] (PRILOSEC) 1-25 ageal by mouth Luke [facility] - 40 MG 22:01: reflux daily. Medical capsule 26 disease Center hydrOXYzine 2016-08 Yes anxious 25mg Q.25D Take [address] [address] (ATARAX) 25 1-25 by mouth 4 Rosangela kes - MG tablet 22:01: (four) Medica l 26 times Center daily. propranolol 2016-08 Yes 20mg Q.5D Take [address] [address] (INDERAL) 1-25 by mouth 2 Luke [facility] - 20 MG 22:01: (two) Medical tablet 26 times Center daily. traZODone 2016-08 Yes 150mg QD Take [address] (DESYREL) 1-25 mg by [facility] - 150 MG 22:01: mouth Medical tablet 26 nightly. [place] ARIPiprazol 2016-08 Yes 15mg QD Take [address] e (ABILIFY) 1-25 by mouth Luke s - 15 MG 22:01: nightly. Medical tablet 26 Center ibuprofen Yes Tooth 800mg Take 4 Anette is (MOTRIN) 8-31 infection tablets by [facility] 200 mg 00:00: mouth tablet 00 every 6 hours as needed for Pain. ARIPIPRAZOL Yes Take by Benjamín ris E (ABILIFY 8-27 mouth. Health OR) 13:48: 28 DULOXETINE Yes Take by Anette is HCL 8- mouth. Health (CYMBALTA 13:48: OR) 28 TOPIRAMATE Yes Take by Anette is (TOPAMAX 8- mouth. Health OR) 13:48: 28 TRAZODONE Yes Take by Harri s HCL 8-27 mouth. Health (TRAZODONE 13:48: OR) 28 PROPRANOLOL Yes Take by Benjamín ris HCL 8-27 mouth. Health (PROPRANOLO 13:48: L OR) 28 HYDROXYZINE Yes Take by Benjamín ris HCL OR 8-27 mouth. Health 13:48: 28 budesonide- Yes Unspecified 2{puff} Q.5D Inhale 2 Krishnamurthy formoterol 8-27 chronic Puffs by He alth (SYMBICORT) 00:00: bronchitis mouth 2 80-4.5 00 [...] Future Scheduled 2020-03-21 INFLUENZA VACCINE [place] [facility] 00:00:00 [code = INFLUENZA VACCINE] Future Scheduled 2006 Screening for [facility] thodist Test 00:00:00 malignant neoplasm of cervix (procedure) [code = 457713863] Future Scheduled 2006 Cervical Cancer Scrn [facility] Health Test 00:00:00 (3 Yrs) [code = Cervical Cancer Scrn (3 Yrs)] Encounters Start End Encounter Admission Attending Care Care Encounter Source Date/Time Date/Time Type Type Clinicians Facility Department ID 2019-04-14 2019-04-14 [id number] 17:25:25 17:58:00 Ad Smith [id number] [place] [id number] [place] [id number] 2019-03-18 2019-03-18 Emergency Vonda Allen [facility] [id number] 22:34:35 23:51:00 Maribel Smith [id number] [place] [id number] [place] [id number] 2017-04-09 2017-04-09 Emergency [facility] [id number] Krishnamurthy 00:00:00 00:00:00 Health 2017-04-09 2017-04-09 Emergency [facility] [id number] [place] 00:00:00 00:00:00 Health 2017-04-08 2017-04-08 Emergency [facility] [id number] [place] 22:35:00 22:35:00 Health 2017-04-08 2017-04-08 Emergency [facility] [id number] [place] 00:00:00 00:00:00 Health Results Test Description Test Time Test Comments Results Result Comments Source HEMOGLOBIN A1C 2017-07-16 13:26:00 Test Item Value Reference Range Interpretation Comme nts HEMOGLOBIN A1C (BEAKER) (test code = 368) 5.2 % 4.3-6.1 CBC W/PLT COUNT & AUTO [id number] 09:42:00 Test Item Value Reference Range Interpretation [...] MORPHOLOGY (BEAKER) (test code Normal = 762) [id number] 07:11:00 Test Item Value Reference Range Interpretation Comments MAGNESIUM (BEAKER) (test code = 1.5 mg/dL 1.6-2.6 L 627) BASIC METABOLIC [id number] 07:11:00 Test Item Value Reference Range Interpretation [...] GFR I S NOT APPLICABLE FOR DIALYSIS PATIABDULLAHI TS. LIPID [id number] 07:11:00 Test Item Value Reference Range Interpretation [...] Borderline 130-159 High 160-189 Very High >=190TROPONIN [id number] 06:34:00 Test Item Value Reference Range Interpretation [...] acidosis, acute neurological disease, and persistent tachyarrhythmia.TROPONIN [id number] 23:58:00 Test Item Value Reference Range Interpretation [...]
== END 2020-02-19 18:18 | disposition home or self-care (01) ==
LOC: ER 13:30
DX: L03.116 Cellulitis of left lower limb (principal); F17.210 Nicotine dependence, cigarettes, uncomplicated; Z88.1 Allergy status to other antibiotic agents; Z88.8 Allergy status to other drugs, medicaments and biological substances
CPT/HCPCS: 36415; 76882; 80048; 84145; 85025; 85652; 96365; 96367; 99284; J3370

== ENCOUNTER 2020-03-10 11:13 | Emergency (ER) | payer SELFPAY ==
--- OUTSIDE RECORDS SUMMARY | 2020-03-10 13:01 | XMS REPORT | Clinical Summary ---
:1985 Author Organization [facility] Address [address] [place] [id number] Care Team Providers Name Role Phone Kit [...] INFLUENZA VACCINE 03/21/2020 Results Not on fileafter 03/10/2019 Advance Directives For more information, please contact: [phone] Type Date Recorded Patient Process Controller Explanati on Advance Directives, Living Will and Medical Power of Thermometer Tester
--- OUTSIDE RECORDS SUMMARY | 2020-03-10 13:01 | XMS REPORT | Clinical Summary ---
:1985 Author Organization [facility] Address [facility] [place] [address] Care Team Providers Name Role Phone Unavailable [...] 19 yrs) 05/21/2020 Results Not on fileafter 03/10/2019 Insurance Payer Benefit Plan / Subscriber ID Effective Phone Address T ype Group Dates HOMELESS TERESA HOMELESS TERESA 2015-Pres [phone] [id number] [place] [address] [facility] SELF-PAY SELF-PAY xxxxxxxxx 2017-Pres [phone] [place] [address]
--- OUTSIDE RECORDS SUMMARY | 2020-03-10 13:02 | XMS REPORT | Clinical Summary ---
:1985 Author Organization [facility] Address [address] [place] [address] Care Team Providers Name Role Phone Cathy [...] Not on file Results Not on fileafter 03/10/2019 Insurance Payer Benefit Plan / Group Subscriber ID Type Phone A ddress xxxxxxxxx Other Govt (, [place], [place]P, etc.) Advance Directives For more information, please contact:[address] [phone] Code Status Date Activated Date Inactivated Comments Full Code 07/15/2017 10:38 PM 07/16/2017 5:00 PM This code status was determined by: Patient
--- OUTSIDE RECORDS SUMMARY | 2020-03-10 13:02 | XMS REPORT | Continuity of Care Document ---
:1985 Author Organization [facility] t Address [address] [place] [address] Care Team Providers Name Role Phone Freddy [...] [facility] 09[facility]14 [facility] 00:[facility]: [address] Pelvic Pelvic Disease Active Raghu pain [...] disorder 00:00: 00 Anxiety Anxiety Disease Active [place] and and 04-16 Health depression depression 00:00: [...] Date Source Maternal aunt Coronary artery [facility] Maternal grandmother Coronary artery [facility] Natural mother Coronary artery [facility] Natural brother Diabetes [facility] alth Social History Social Habit Start Date Stop Date Quantity Comments Source History of tobacco Cigarette Smoker [facility] use Sex Assigned At [facility] alth Cigarettes smoked 2015-04-20 2015-04-20 [facility] current (pack per 00:00:00 00:00:00 day) - Reported Cigarette 2015-04-20 2015-04-20 [facility] pack-years 00:00:00 00:00:00 Alcohol intake 2015-04-20 2015-04-20 Current drinker Catherine garcia [facility] 00:00:00 00:00:00 of alcohol (finding) Alcohol Comment 2015-04-16 2015-04-16 last drink 02/2015 [facility] Health 00:00:00 00:00:00 Smoking Status Start Date Stop Date Source Never smoker Karlos colon Current every day smoker 2015-04-20 00:00:00 [facility] Gro Medications Ordered Filled Start Stop Current Ordering [...] MG 22:01: mouth Medical tablet 26 nightly. [place] ARIPiprazol 2016-08 Yes 15mg QD Take [address] [facility] (ABILIFY) 1-25 by mouth Luke s - 15 MG 22:01: nightly. Medical tablet 26 Center ibuprofen Yes Tooth 800mg Take 4 Anette is (MOTRIN) 8-31 infection tablets by [facility] 200 mg 00:00: mouth tablet 00 every 6 hours as needed for Pain. ARIPIPRAZOL Yes Take by Benjamín ris E (ABILIFY 8- mouth. Health OR) 13:48: 28 DULOXETINE Yes Take by Anette is HCL 8- mouth. Health (CYMBALTA 13:48: OR) 28 TOPIRAMATE Yes Take by Anette is (TOPAMAX 8-27 mouth. Health OR) 13:48: 28 TRAZODONE Yes Take by Harri s HCL 8-27 mouth. Health (TRAZODONE 13:48: OR) 28 PROPRANOLOL Yes Take by Benjamín ris HCL 8-27 mouth. Health (PROPRANOLO 13:48: L OR) 28 HYDROXYZINE Yes Take by Benjamín ris HCL OR 8-27 mouth. Health 13:48: 28 budesonide- Yes Unspecified 2{puff} Q.5D Inhale 2 Raghu formoterol 8-27 chronic Puffs by Jay pan (SYMBICORT) 00:00: bronchitis mouth 2 80-4.5 00 times mcg/actuati daily on inhaler Rinse mouth after each use.. Procedures This patient has no known procedures. Plan of Care Planned Activity Planned Date Details Comments Source Future Scheduled 2020-05-21 IMM Influenza [place] [facility] Test 00:00:00 Seasonal May to October (>/= 19 yrs) [code = IMM Influenza Seasonal May to October (>/= 19 yrs)] Future Scheduled 2020-03-21 INFLUENZA VACCINE [place] [facility] 00:00:00 [code = INFLUENZA VACCINE] Future Scheduled 2006 Screening for [facility] thodist Test 00:00:00 malignant neoplasm of cervix (procedure) [code = 635144713] Future Scheduled 2006 Screening for [place] [place] [facility] Test 00:00:00 malignant neoplasm of cervix (procedure) [code = 228451013] Encounters Start End Encounter Admission Attending Care Care Encounter Source Date/Time Date/Time Type Type Clinicians Facility Department ID 2019-04-14 2019-04-14 Emergency Concepcion [facility] [id number] 17:25:25 17:58:00 Ad Smith [id number] [place] [id number] [place] [id number] 2019-03-18 2019-03-18 Emergency Vonda Allen [facility] [id number] 22:34:35 23:51:00 Maribel Smith [id number] [place] [id number] [place] [id number] 2017-04-09 2017-04-09 Emergency [facility] [id number] Krishnamurthy 00:00:00 00:00:00 Health 2017-04-09 2017-04-09 Emergency [facility] [id number] Krishnamurthy 00:00:00 00:00:00 Health 2017-04-08 2017-04-08 Emergency [facility] [id number] [place] 22:35:00 22:35:00 Health 2017-04-08 2017-04-08 Emergency [facility] [id number] [place] 00:00:00 00:00:00 Health Results Test Description Test Time Test Comments Results Result Comments Source HEMOGLOBIN A1C 2017-07-16 13:26:00 Test Item Value Reference Range Interpretation Comme nts HEMOGLOBIN A1C (BEAKER) (test code = 368) 5.2 % 4.3-6.1 CBC W/PLT COUNT & AUTO [id number] 09:42:00 Test Item Value Reference Range Interpretation [...] MORPHOLOGY (BEAKER) (test code Normal = 762) [id number] 07:11:00 Test Item Value Reference Range Interpretation Comments MAGNESIUM (BEAKER) (test code = 1.5 mg/dL 1.6-2.6 L 627) BASIC METABOLIC [id number] 07:11:00 Test Item Value Reference Range Interpretation [...] NOT APPLICABLE FOR DIALYSIS PATIABDULLAHI TS. LIPID [id number] 07:11:00 Test Item Value Reference Range Interpretation [...] Borderline 130-159 High 160-189 Very High >=190TROPONIN [id number] 06:34:00 Test Item Value Reference Range Interpretation [...] acidosis, acute neurological disease, and persistent tachyarrhythmia.TROPONIN [id number] 23:58:00 Test Item Value Reference Range Interpretation [...]
--- NOTE | 2020-03-10 14:05 | ER ---
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 Wound started 6 mos ca1 ago, completed oral abx, had IV abx here 2 weeks ago. Still getting worse, my PCP wants me to get an US. Denies fever. Reports wound drainage and foul smell, swelling. Coronavirus screen: Patient denies a cough. Patient denies shortness of breath or difficulty breathing. Patient denies measured and/or subjective temperature greater than 100.4F prior to today's visit. Patient denies travel on a cruise ship or to a country the [facility] currently lists as an affected area. Patient denies contact with known and/or suspected case of COVID-19. Proceed with normal triage. Ebola Screen: Patient negative for fever greater than or equal to 101.5 degrees Fahrenheit, and additional compatible Ebola Virus Disease symptoms Patient denies exposure to infectious person. Patient denies travel to an Ebola-affected area in the 21 days before illness onset. No symptoms or risks identified at this time. Initial Sepsis Screen: Does the patient meet any 2 criteria? No. Patient's initial sepsis screen is negative. Does the patient have a suspected source of infection? No. Patient's initial sepsis screen is negative. Risk Assessment: Do you want to hurt yourself or someone else? Patient reports no desire to harm self or others. Onset of symptoms was March 10, 2020. 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 - Social history:: Smoking status: Patient reports the use of cigarette tobacco products, smokes one pack cigarettes per day. Screenin:08 Abuse screen: Denies threats or abuse. Nutritional screening: No deficits noted. em Tuberculosis screening: No symptoms or risk factors identified. Fall Risk None identified. Assessment: 13:11 General: Appears in no apparent distress. comfortable, Behavior is calm, cooperative, em appropriate for age, Denies fever. Pain: Pain: Complains of pain in left stump on the lateral side. Neuro: Level of Consciousness is awake, alert, obeys commands, Oriented to person, place, time, situation, Appropriate for age. Cardiovascular: Capillary refill < 3 seconds Patient's skin is warm and dry. Respiratory: Airway is patent Respiratory effort is even, unlabored, Respiratory pattern is regular, symmetrical. GI: Abdomen is flat. Derm: Skin is intact, is healthy with good turgor, Skin is pink, warm \T\ dry. Wound noted left side of stump. 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 Capillary refill < 3 seconds. 13:42 Reassessment: US at bedside. em Vital Signs: 11:41 BP 125 / 75; Pulse 78; Resp 15 S; Temp 97.1(TE); Pulse Ox 100% on R/A; Weight 87.09 kg ca1 (R); Height 5 ft. 8 in. (172.72 cm) (R); 13:15 BP 124 / 76; Pulse 67; Resp 18; Pulse Ox 99% on R/A; em 11:41 Body Mass Index 29.19 (87.09 kg, 172.72 cm) ca1 ED Course: 11:21 Patient arrived in ED. fj1 11:44 Triage completed. ca1 11:45 Arm band placed on right wrist. ca1 13:03 Guanakito Jimenez, JONY is Primary Nurse. em 13:05 Reva Morales FNP-C is PHCP. kb 13:05 Gregor Santo MD is Attending Physician. kb 13:08 Patient has correct armband on for positive identification. Bed in low position. Call em light in reach. Pulse ox on. NIBP on. 14:02 US Extrmty Nonvasular Limited In Process Unspecified. EDMS 14:09 No provider procedures requiring assistance completed. Patient did not have IV access em during this emergency room visit. Administered Medications: No medications were administered Outcome: 14:05 Discharge ordered by MD. jackson 14:09 Discharged to home ambulatory. em 14:09 Condition: good 14:09 Discharge instructions given to patient, Instructed on discharge instructions, follow up and referral plans. Demonstrated understanding of instructions, follow-up care. 14:10 Patient left the ED. em Signatures: Dispatcher [employer] EDReva Cuenca, MOISES-C OMISES-Guanakito Keene, RN RN em Herminia Marie, RN RN [facility] Davey Hutchison [facility]
--- NOTE | 2020-03-10 14:05 | EDPHYS ---
Physician Documentation [facility] Name: Natasha Spann Age: 34 yrs Sex: Female : 1985 Arrival Date: 03/10/2020 Time: 11:21 Bed 24 Private MD: ED Physician Gregor Santo HPI: 03/10 14:03 This 34 yrs old Female presents to ER via Ambulatory with complaints of Wound kb Check. 14:03 Patient presents to ED for recheck of: open wound. The affected area is on the left kb leg. The patient has not experienced similar symptoms in the past. The patient has not recently seen a physician. Pt reports nonhealing wound to left stump. Has been seeing Dr Gupta for wound care. States he sent her here to get an ultrasound on area to compare it to one she had a month ago. States it looks good, but they don't know why it won't heal. 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 - Social history:: Smoking status: Patient reports the use of cigarette tobacco products, smokes one pack cigarettes per day. ROS: 14:01 Constitutional: Negative for fever, chills, and weight loss, Cardiovascular: Negative kb for chest pain, palpitations, and edema, Respiratory: Negative for shortness of breath, cough, wheezing, and pleuritic chest pain, Abdomen/GI: Negative for abdominal pain, nausea, vomiting, diarrhea, and constipation, Back: Negative for injury and pain, Neuro: Negative for headache, weakness, numbness, tingling, and seizure. 14:01 Skin: Positive for of the left leg. Exam: 14:01 Constitutional: This is a well developed, well nourished patient who is awake, alert, kb and in no acute distress. Head/Face: Normocephalic, atraumatic. Chest/axilla: Normal chest wall appearance and motion. Nontender with no deformity. No lesions are appreciated. Cardiovascular: Regular rate and rhythm with a normal S1 and S2. No gallops, murmurs, or rubs. Normal PMI, no JVD. No pulse deficits. Respiratory: Lungs have equal breath sounds bilaterally, clear to auscultation and percussion. No rales, rhonchi or wheezes noted. No increased work of breathing, no retractions or nasal flaring. Abdomen/GI: Soft, non-tender, with normal bowel sounds. No distension or tympany. No guarding or rebound. No evidence of tenderness throughout. Neuro: Awake and alert, GCS 15, oriented to person, place, time, and situation. Cranial nerves II-XII grossly intact. Motor strength 5/5 in all extremities. Sensory grossly intact. Cerebellar exam normal. Normal gait. 14:01 Skin: open wound to left stump. No redness, swelling, warmth or other signs of infection noted. . Vital Signs: 11:41 BP 125 / 75; Pulse 78; Resp 15 S; Temp 97.1(TE); Pulse Ox 100% on R/A; Weight 87.09 kg ca1 (R); Height 5 ft. 8 in. (172.72 cm) (R); 13:15 BP 124 / 76; Pulse 67; Resp 18; Pulse Ox 99% on R/A; em 11:41 Body Mass Index 29.19 (87.09 kg, 172.72 cm) ca1 MDM: 13:05 Patient medically screened. kb 14:01 Data reviewed: vital signs, nurses notes. Data interpreted: Pulse oximetry: on room air kb is 99 %. Interpretation: normal. Counseling: I had a detailed discussion with the patient and/or guardian regarding: the historical points, exam findings, and any diagnostic results supporting the discharge/admit diagnosis, radiology results, the need for outpatient follow up, a family practitioner, to return to the emergency department if symptoms worsen or persist or if there are any questions or concerns that arise at home. 03/10 13:06 Order name: US Raúl Gaytan Nilda jackson Administered Medications: No medications were administered Disposition: 17:50 Co-signature as Attending Physician, Gregor Santo MD. rn Disposition: 03/10/20 14:05 Discharged to Home. Impression: Open wound of lower leg. - Condition is Stable. - Discharge Instructions: Wound Care. - Medication Reconciliation Form, Thank You Letter, Antibiotic Education, Prescription Opioid Use form. - Follow up: Emergency Department; When: As needed; Reason: Worsening of condition. Follow up: Private Physician; When: 2 - 3 days; Reason: Recheck today's complaints, Continuance of care, Re-evaluation by your physician. Signatures: Dispatcher [employer] EDReva Cuenca, MOISES-C TISSUE TECHNOLOGIST-Guanakito Keene, RN RN em Gregor Santo MD MD rn Acob, JONY Hope RN ca1 Corrections: (The following items were deleted from the chart) 14:10 14:05 03/10/2020 14:05 Discharged to Home. Impression: Open wound of lower leg. em Condition is Stable. Forms are Medication Reconciliation Form, Thank You Letter, Antibiotic Education, Prescription Opioid Use. Follow up: Emergency Department; When: As needed; Reason: Worsening of condition. Follow up: Private Physician; When: 2 - 3 days; Reason: Recheck today's complaints, Continuance of care, Re-evaluation by your physician. kb
--- NOTE | 2020-03-10 14:34 | RAD REPORT ---
EXAM DESCRIPTION: US - Extremity Nonvascular Limited - 03/10/2020 2:02 pm CLINICAL HISTORY: evaluate wound;Pain Soft tissue wound COMPARISON: Extremity Nonvascular Limited dated 02/19/2020 TECHNIQUE: Real-time sonographic evaluation of the area of interest was performed. FINDINGS: Again noted in the region of the left stump are localized inflammatory changes. Small hypoechoic 6 mm and 8 mm subcutaneous lesions again seen, essentially stable since comparative study. IMPRESSION: Stable findings since 02/19/2020 study.
[2020-03-11 03:36] VITALS: TEMP 97.1
[2020-03-11 03:37] VITALS: BP 124/76; O2SAT 99
== END 2020-03-10 14:10 | disposition home or self-care (01) ==
LOC: ER 11:13
DX: S81.802A Unspecified open wound, left lower leg, initial encounter (principal); Z89.512 Acquired absence of left leg below knee; Z88.3 Allergy status to other anti-infective agents; Z88.8 Allergy status to other drugs, medicaments and biological substances; F17.210 Nicotine dependence, cigarettes, uncomplicated
CPT/HCPCS: 76882; 99283

== ENCOUNTER 2020-03-19 13:22 | Emergency (ER) | payer SELFPAY ==
--- OUTSIDE RECORDS SUMMARY | 2020-03-19 13:23 | XMS REPORT | Clinical Summary ---
:1985 Author Organization [facility] Address [address] [place] [address] Care Team Providers Name Role Phone Cathy [...] Not on file Results Not on fileafter 03/19/2019 Insurance Payer Benefit Plan / Group Subscriber ID Type Phone A ddress xxxxxxxxx Other Govt (, [place], [place]P, etc.) Advance Directives For more information, please contact:[address] [phone] Code Status Date Activated Date Inactivated Comments Full Code 07/15/2017 10:38 PM 07/16/2017 5:00 PM This code status was determined by: Patient
--- OUTSIDE RECORDS SUMMARY | 2020-03-19 13:23 | XMS REPORT | Clinical Summary ---
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
--- OUTSIDE RECORDS SUMMARY | 2020-03-19 13:23 | XMS REPORT | Clinical Summary ---
:1985 Author Organization [facility] Address [facility] [place] [address] Care Team Providers Name Role Phone Unavailable [...] 19 yrs) 05/21/2020 Results Not on fileafter 03/19/2019 Insurance Payer Benefit Plan / Subscriber ID Effective Phone Address T ype Group Dates HOMELESS TERESA HOMELESS TERESA 2015-Pres [phone] [id number] [place] [address] [facility] SELF-PAY SELF-PAY xxxxxxxxx 2017-Pres [phone] [place] [address]
--- OUTSIDE RECORDS SUMMARY | 2020-03-19 13:24 | XMS REPORT | Continuity of Care Document ---
:1985 Author Organization [facility] t Address [address] [place] [address] Care Team Providers Name Role Phone Freddy ARANGO Primary Care Physician Concepcion DE LEON Attending Clinician Maribel Plasencia Attending Clinician BINTA FOLEY Attending Clinician Unavailable BINTA OFLEY Admitting Clinician Unavailable Problems Condition Condition Condition Status Onset Resolution Last Treating Co mments Source Name Details Category Date Date Treatment Clinician Date Chest pain Chest pain Disease Active 2016-[address] 09[facility]14 [facility] Medical [address] [place] [address] Pelvic Pelvic Disease Active Raghu pain in pain in 8 Health female female 00:00: 00 Homeless Homeless [...] disorder 00:00: 00 Anxiety Anxiety Disease Active Raghu and and 04-16 Health depression depression 00:00: [...] Date Source Maternal aunt Coronary artery [facility] Maternal grandmother Coronary artery [facility] Natural mother Coronary artery [facility] Natural brother Diabetes [facility] Social History Social Habit Start Date Stop Date Quantity Comments Source History of tobacco Cigarette Smoker [facility] use Sex Assigned At [facility] alth Cigarettes smoked 2015-04-20 2015-04-[address] [facility] current (pack per 00:00:00 00:00:00 day) - Reported Cigarette 2015-04-20 2015-04-[address] [facility] pack-years 00:00:00 00:00:00 Alcohol intake 2015-04-20 2015-04-20 [facility] 00:00:00 00:00:00 of alcohol (finding) Alcohol Comment 2015-04-16 2015-04-16 last drink 02/2015 [facility] 00:00:00 00:00:00 Smoking Status Start Date Stop Date Source Never smoker Karlos colon Current every day smoker 2015-04-20 00:00:00 [facility] Medications Ordered Filled Start Stop Current Ordering [...] MG 22:01: mouth Medical tablet 26 nightly. [place] ARIPiprazol 2016-08 Yes 15mg QD Take [address] [facility] (ABILIFY) 1-25 by mouth Luke s - 15 MG 22:01: nightly. Medical tablet 26 Center ibuprofen Yes Tooth 800mg Take 4 Anette is (MOTRIN) 8-31 infection tablets by [facility] 200 mg 00:00: mouth tablet 00 every 6 hours as needed for Pain. ARIPIPRAZOL Yes Take by Benjamín ris E (ABILIFY 8-27 mouth. Health OR) 13:48: 28 DULOXETINE Yes Take by Anette is HCL 8- mouth. Health (CYMBALTA 13:48: OR) 28 TOPIRAMATE Yes Take by Anette is (TOPAMAX 8-27 mouth. Health OR) 13:48: 28 TRAZODONE Yes Take by Anettei s HCL 8-27 mouth. Health (TRAZODONE 13:48: [...] Future Scheduled 2020-03-21 INFLUENZA VACCINE [place] 00:00:00 [code = INFLUENZA VACCINE] Future Scheduled 2006 Screening for [facility] Test 00:00:00 malignant neoplasm of cervix (procedure) [code = 863610546] Future Scheduled 2006 Screening for [facility] [place] [facility] Test 00:00:00 malignant neoplasm of cervix (procedure) [code = 253578186] Encounters Start End Encounter Admission Attending Care Care Encounter Source Date/Time Date/Time Type Type Clinicians Facility Department ID 2019-04-14 2019-04-14 Emergency Concepcion [facility] [id number] 17:25:25 17:58:00 Ad Smith [id number] Britt [id number] [place] [address] [id number] 2019-03-18 2019-03-18 Emergency Vonda Allen [facility] [id number] 22:34:35 23:51:00 Mariebl Smith [id number] Britt [id number] [place] [address] [id number] 082017-04-09 2017-04-09 Emergency [facility] [id number] Krishnamurthy 00:00:00 00:00:00 Health 2017-04-09 2017-04-09 Emergency [facility] [id number] Krishnamurthy 00:00:00 00:00:00 Health 2017-04-08 2017-04-08 Emergency [facility] [id number] Krishnamurthy 22:35:00 22:35:00 Health 2017-04-08 2017-04-08 Emergency [facility] [id number] [place] 00:00:00 00:00:00 Health Results Test Description Test Time Test Comments Results Result Comments Source HEMOGLOBIN A1C 2017-07-16 13:26:00 Test Item Value Reference Range Interpretation Comme nts HEMOGLOBIN A1C (BEAKER) (test code = 368) 5.2 % 4.3-6.1 CBC W/PLT COUNT & AUTO [id number] 09:42:00 Test Item Value Reference Range Interpretation [...] MORPHOLOGY (BEAKER) (test code Normal = 762) [id number] 07:11:00 Test Item Value Reference Range Interpretation Comments MAGNESIUM (BEAKER) (test code = 1.5 mg/dL 1.6-2.6 L 627) BASIC METABOLIC [id number] 07:11:00 Test Item Value Reference Range Interpretation [...] NOT APPLICABLE FOR DIALYSIS PATIEN TS. LIPID [id number] 07:11:00 Test Item Value Reference Range Interpretation [...] Borderline 130-159 High 160-189 Very High >=190TROPONIN [id number] 06:34:00 Test Item Value Reference Range Interpretation [...] acidosis, acute neurological disease, and persistent tachyarrhythmia.TROPONIN [id number] 23:58:00 Test Item Value Reference Range Interpretation [...]
[2020-03-19] MEDS ORDERED: KETOROLAC 30 MG/ML INJ ONE (15:06)
--- NOTE | 2020-03-19 15:14 | RAD REPORT ---
EXAM DESCRIPTION: RAD - Knee Left 3 View - 03/19/2020 2:54 pm CLINICAL HISTORY: PAIN COMPARISON: Knee Left 2 View dated 02/20/2017; Tib Fib Left dated 02/19/2020 FINDINGS: [id number] amputation is noted. Area of sclerosis seen lateral tibial plateau demonstr ates long-term stability. No acute abnormality discerned.
--- NOTE | 2020-03-19 15:37 | ER ---
Nurse's Notes [facility] Name: Natasha Spann Age: 34 yrs Sex: Female : 1985 Arrival Date: 03/19/2020 Time: 13:24 Bed 8 Private MD: Diagnosis: Left BKA wound: chronic Presentation: 03/19 13:43 Chief complaint: Patient states: has been dealing with a wound on her amputated leg and iw is having a lot of pain, has been on abx in the past but is not on any at this time, wound has been open and draining for 7 months, see Dr. Gupta for wound care. Chief complaint: Patient states: also has been having headache, fatigue, diarrhea for past two weeks, no fever but has chills off and on. Coronavirus screen: Coronavirus screen: Patient denies a cough. Patient denies shortness of breath or difficulty breathing. Patient denies measured and/or subjective temperature greater than 100.4F prior to today's visit. Patient denies travel on a cruise ship or to a country the [facility] currently lists as an affected area. Patient denies contact with known and/or suspected case of COVID-19. Ebola Screen: Patient negative for fever greater than or equal to 101.5 degrees Fahrenheit, and additional compatible Ebola Virus Disease symptoms Patient denies exposure to infectious person. Patient denies travel to an Ebola-affected area in the 21 days before illness onset. No symptoms or risks identified at this time. Initial Sepsis Screen: Does the patient meet any 2 criteria? No. Patient's initial sepsis screen is negative. Does the patient have a suspected source of infection? No. Patient's initial sepsis screen is negative. Risk Assessment: Do you want to hurt yourself or someone else? Patient reports no desire to harm self or others. Onset of symptoms was March 17, 2020. 13:43 Method Of Arrival: Ambulatory iw 13:43 Acuity: EMILY 3 iw Triage Assessment: 13:45 General: Appears in no apparent distress. comfortable, Behavior is cooperative, bp appropriate for age, anxious. Pain: Complains of pain in left leg. EENT: No deficits noted. Neuro: No deficits noted. Cardiovascular: No deficits noted. Respiratory: No deficits noted. GI: No signs and/or symptoms were reported involving the gastrointestinal system. : No signs and/or symptoms were reported regarding the genitourinary system. Derm: No deficits noted. Musculoskeletal: No deficits noted. Injury Description: NON-HEALING WOUND LEFT BKA STUMP. Historical: - Allergies: 13:48 Levofloxacin; iw 13:48 Wellbutrin; iw 13:48 bupropion HCl; iw - PMHx: 13:48 ADD/ADHD; Anxiety; Bipolar disorder; Depression; Endometrosis; Gastric Reflux; MRSA; iw osteomylitis; Ovarian cyst; UTI; - PSHx: 13:48 L BKA; iw - Immunization history:: Adult Immunizations unknown. - Social history:: Smoking status: . Screenin:45 Abuse screen: Denies threats or abuse. Denies injuries from another. Nutritional bp screening: No deficits noted. Tuberculosis screening: No symptoms or risk factors identified. Fall Risk None identified. Assessment: 13:45 General: SEE TRIAGE NOTE. bp 15:00 Reassessment: ALL CURRENT ORDERS COMPLETED, VS STABLE. bp 15:08 General: Appears uncomfortable, Behavior is calm, cooperative. Pain: Complains of pain ks7 in left leg. Derm: Skin decub ulcer Decubitus located on left lateral leg below the knee approximately 2.6 cm to 7.5 cm has denuded edges bed has granulation present is draining small amount. 15:57 Reassessment: PT D/C HOME AMBULATORY, DX WITH CHRONIC LEFT BKA WOUND. bp Vital Signs: 13:43 BP 121 / 77; Pulse 76; Resp 16; Temp 98.9; Pulse Ox 97% ; Weight 87.09 kg; Height 5 ft. iw 8 in. (172.72 cm); Pain 8/10; 15:06 BP 117 / 66; Pulse 78; Resp 18; Pulse Ox 100% on R/A; ks7 15:56 BP 105 / 67; Pulse 67; Resp 17; Temp 98; Pulse Ox 98% ; bp 13:43 Body Mass Index 29.19 (87.09 kg, 172.72 cm) iw ED Course: 13:24 Patient arrived in ED. as 13:41 Ad Alston MD is Attending Physician. kdr 13:45 Arm band placed on. bp 13:45 Patient has correct armband on for positive identification. Bed in low position. Call bp light in reach. Side rails up X2. 13:48 Triage completed. iw 14:38 Sabas Michael, RN is Primary Nurse. bp 14:54 Knee Left 3 View XRAY In Process Unspecified. EDMS 15:00 Wound Culture Sent. bp 15:57 No provider procedures requiring assistance completed. Patient did not have IV access bp during this emergency room visit. Administered Medications: 15:00 Drug: TORadol - Ketorolac 15 mg Route: IM; Site: right vastus lateralis; ks7 Outcome: 15:36 Discharge ordered by . kdr 15:57 Discharged to home ambulatory. bp 15:57 Condition: stable 15:57 Discharge instructions given to patient, Instructed on discharge instructions, follow up and referral plans. medication usage, Demonstrated understanding of instructions, follow-up care, medications, Prescriptions given X 2. 15:58 Patient left the ED. bp Signatures: Dispatcher [employer] EDMS Ad Alston MD MD kdr Martinez, Amelia as Williams, Irene, RN RN iw Sabas Michael, RN RN bp Miroslava Oscar, JONY RN ks7
--- NOTE | 2020-03-19 15:37 | EDPHYS ---
Physician Documentation [facility] Name: Natasha Spann Age: 34 yrs Sex: Female : 1985 Arrival Date: 03/19/2020 Time: 13:24 Bed 8 Private MD: ED Physician Ad Alston HPI: 03/19 15:41 This 34 yrs old Female presents to ER via Ambulatory with complaints of Wound kdr Check. 15:41 Patient presents to ED for recheck of: Chronic wound/pain to left lateral BKA stump - kdr no current drainage noted. The affected area is on the lateral aspect of left calf. Previous treatment: The patient has had multiple visits for pain/abscess and cellulitis. Progress: The patient reports The is a chronic wound with failure to fully close. The patient has experienced similar episodes in the past, chronically. The patient has experienced a previous episode, last week, and the symptoms today are exactly the same. The patient has been recently [facility] at [facility], last week. Historical: - Allergies: 13:48 Levofloxacin; iw 13:48 Wellbutrin; iw 13:48 bupropion HCl; iw - PMHx: 13:48 ADD/ADHD; Anxiety; Bipolar disorder; Depression; Endometrosis; Gastric Reflux; MRSA; iw osteomylitis; Ovarian cyst; UTI; - PSHx: 13:48 L BKA; iw - Immunization history:: Adult Immunizations unknown. - Social history:: Smoking status: . ROS: 15:41 Constitutional: Negative for fever, chills, and weight loss, Eyes: Negative for injury, kdr pain, redness, and discharge, Neck: Negative for injury, pain, and swelling, Cardiovascular: Negative for chest pain, palpitations, and edema, Respiratory: Negative for shortness of breath, cough, wheezing, and pleuritic chest pain, Abdomen/GI: Negative for abdominal pain, nausea, vomiting, diarrhea, and constipation, Back: Negative for injury and pain, : Negative for injury, bleeding, discharge, and swelling, Skin: Negative for injury, rash, and discoloration, Neuro: Negative for headache, weakness, numbness, tingling, and seizure activity. Psych: Negative for depression, anxiety, suicide ideation, homicidal ideation, and hallucinations, Allergy/Immunology: Negative for hives, rash, and allergies, Endocrine: Negative for neck swelling, polydipsia, polyuria, polyphagia, and marked weight changes, Hematologic/Lymphatic: Negative for swollen nodes, abnormal bleeding, and unusual bruising. 15:41 MS/extremity: Positive for erythema, pain, Minor erythema surrounding opening in skin that is about 1.5 cm shanta . Exam: 15:41 Constitutional: This is a well developed, well nourished patient who is awake, alert, kdr and in no acute distress. Head/Face: Normocephalic, atraumatic. Eyes: Pupils equal round and reactive to light, extra-ocular motions intact. Lids and lashes normal. Conjunctiva and sclera are non-icteric and not injected. Cornea within normal limits. Periorbital areas with no swelling, redness, or edema. Neck: Trachea midline, no thyromegaly or masses palpated, and no cervical lymphadenopathy. Supple, full range of motion without nuchal rigidity, or vertebral point tenderness. No Meningismus. Chest/axilla: Normal chest wall appearance and motion. Nontender with no deformity. No lesions are appreciated. Cardiovascular: Regular rate and rhythm with a normal S1 and S2. No gallops, murmurs, or rubs. Normal PMI, no JVD. No pulse deficits. Respiratory: Lungs have equal breath sounds bilaterally, clear to auscultation and percussion. No rales, rhonchi or wheezes noted. No increased work of breathing, no retractions or nasal flaring. Abdomen/GI: Soft, non-tender, with normal bowel sounds. No distension or tympany. No guarding or rebound. No evidence of tenderness throughout. Back: No spinal tenderness. No costovertebral tenderness. Full range of motion. Skin: Warm, dry with normal turgor. Normal color with no rashes, no lesions, and no evidence of cellulitis. Neuro: Awake and alert, GCS 15, oriented to person, place, time, and situation. Cranial nerves II-XII grossly intact. Motor strength 5/5 in all extremities. Sensory grossly intact. Cerebellar exam normal. Normal gait. Psych: Awake, alert, with orientation to person, place and time. Behavior, mood, and affect are within normal limits. 15:41 Musculoskeletal/extremity: Extremities: grossly normal except: erythema, pain, tenderness. Vital Signs: 13:43 BP 121 / 77; Pulse 76; Resp 16; Temp 98.9; Pulse Ox 97% ; Weight 87.09 kg; Height 5 ft. iw 8 in. (172.72 cm); Pain 8/10; 15:06 BP 117 / 66; Pulse 78; Resp 18; Pulse Ox 100% on R/A; ks7 15:56 BP 105 / 67; Pulse 67; Resp 17; Temp 98; Pulse Ox 98% ; bp 13:43 Body Mass Index 29.19 (87.09 kg, 172.72 cm) iw MDM: 15:06 ED course: TEST ARCHITECT 200/120/000 - OD Risk 560. kdr 15:36 Patient medically screened. kdr 15:41 Data reviewed: vital signs, nurses notes. Counseling: I had a detailed discussion with kdr the patient and/or guardian regarding: the historical points, exam findings, and any diagnostic results supporting the discharge/admit diagnosis, the need for outpatient follow up. ED course: The wound overall looked stable and without need for IV abx or admission. There was minimal surrounding erythema and the x-ray did not support osteo at this time. 03/19 14:39 Order name: Wound Culture [facility] 03/19 14:37 Order name: Knee Left 3 View XRAY; Complete Time: 15:32 kdr Administered Medications: 15:00 Drug: TORadol - Ketorolac 15 mg Route: IM; Site: right vastus lateralis; ks7 Disposition: 03/19/20 15:36 Discharged to Home. Impression: Left BKA wound: chronic. - Condition is Stable. - Discharge Instructions: Chronic Pain. - Prescriptions for ketorolac 10 mg Oral tablet - take 1 tablet by ORAL route every 4-6 hours As needed not to exceed 40 mg in 24hrs; 16 tablet. Bactrim DS 800- 160 mg Oral Tablet - take 1 tablet by ORAL route every 12 hours for 10 days; 20 tablet. - Medication Reconciliation Form, Thank You Letter, Antibiotic Education form. - Follow up: Private Physician; When: 2 - 3 days; Reason: If symptoms return, Further diagnostic work-up, Recheck today's complaints, Continuance of care, Re-evaluation by your physician. - Problem is an ongoing problem. - Symptoms are unchanged. Signatures: Dispatcher [employer] EDMS Ad Alston MD MD kdr Anastasia Patel RN RN iw Sabas Michael RN RN Miroslava Morin RN RN ks7 Corrections: (The following items were deleted from the chart) 15:58 15:36 03/19/2020 15:36 Discharged to Home. Impression: Left BKA wound: chronic. bp Condition is Stable. Forms are Medication Reconciliation Form, Thank You Letter, Antibiotic Education, Prescription Opioid Use. Follow up: Private Physician; When: 2 - 3 days; Reason: If symptoms return, Further diagnostic work-up, Recheck today's complaints, Continuance of care, Re-evaluation by your physician. Problem is an ongoing problem. Symptoms are unchanged. kdr
[2020-03-19 16:06] VITALS: BP 105/67; TEMP 98; O2SAT 98
== END 2020-03-19 15:58 | disposition home or self-care (01) ==
LOC: ER 13:22
DX: S81.802A Unspecified open wound, left lower leg, initial encounter (principal); Z89.9 Acquired absence of limb, unspecified; Z88.8 Allergy status to other drugs, medicaments and biological substances
CPT/HCPCS: 87070; 87077; 87186; 87205; 96372; 99284

== ENCOUNTER 2020-04-14 20:24 | Emergency (ER) | payer SELFPAY ==
--- OUTSIDE RECORDS SUMMARY | 2020-04-14 20:25 | XMS REPORT | Clinical Summary ---
:1985 Author Organization [facility] Address [facility] [place] [address] Care Team Providers Name Role Phone Unavailable [...] 19 yrs) 05/21/2020 Results Not on fileafter 04/14/2019 Insurance Payer Benefit Plan / Subscriber ID Effective Phone Address T ype Group Dates HOMELESS TERESA HOMELESS TERESA 2015-Pres [phone] [id number] [place] [address] [facility] SELF-PAY SELF-PAY xxxxxxxxx 2017-Pres [phone] [place] [address]
--- OUTSIDE RECORDS SUMMARY | 2020-04-14 20:25 | XMS REPORT | Clinical Summary ---
:1985 Author Organization [facility] Address [address] [place] [address] Care Team Providers Name Role Phone Cathy [...] Not on file Results Not on fileafter 04/14/2019 Insurance Payer Benefit Plan / Group Subscriber ID Type Phone A ddress xxxxxxxxx Other Govt (, [place], [employer]P, etc.) Advance Directives For more information, please contact:[address] [phone] Code Status Date Activated Date Inactivated Comments Full Code 07/15/2017 10:38 PM 07/16/2017 5:00 PM This code status was determined by: Patient
--- OUTSIDE RECORDS SUMMARY | 2020-04-14 20:25 | XMS REPORT | Continuity of Care Document ---
:1985 Author Organization [facility] t Address [address] [place] [address] Care Team Providers Name Role Phone Freddy [...] [facility] 00:[facility]: [address] Pelvic Pelvic Disease Active Raghu pain [...] disorder 00:00: 00 Anxiety Anxiety Disease Active [place] and and 04-16 Health depression depression 00:00: [...] Maternal aunt Coronary artery [facility] Maternal grandmother Coronary artery [facility] Natural mother Coronary artery [facility] Natural brother Diabetes [facility] Social History Social Habit Start Date Stop Date Quantity Comments Source History of tobacco Cigarette Smoker [facility] use Sex Assigned At [facility] Cigarettes smoked 2015-04-20 2015-04-20 [facility] current (pack per 00:00:00 00:00:00 day) - Reported Cigarette 2015-04-20 2015-04-20 [facility] pack-years 00:00:00 00:00:00 Alcohol intake 2015-04-20 2015-04-20 Current drinker Catherine garcia [facility] 00:00:00 00:00:00 of alcohol (finding) Alcohol Comment 2015-04-16 2015-04-16 last drink 02/2015 [facility] Health 00:00:00 00:00:00 Smoking Status Start Date Stop Date Source Never smoker Karlos colon Current every day smoker 2015-04-20 00:00:00 [facility] Scrip Products Medications Ordered Filled Start Stop Current Ordering [...] MG 22:01: mouth Medical tablet 26 nightly. [place] ARIPiprazol 2016-08 Yes 15mg QD Take [address] [facility] (ABILIFY) 1-25 by mouth Luke s - 15 MG 22:01: nightly. Medical tablet 26 Center ibuprofen Yes Tooth 800mg Take 4 Anette is (MOTRIN) 8-31 infection tablets by [facility] 200 mg 00:00: mouth tablet 00 [...] 2 Raghu formoterol 8-27 chronic Puffs by [facility] (SYMBICORT) 00:00: bronchitis mouth 2 80-4.5 00 times mcg/actuati daily on inhaler Rinse mouth after each use.. Procedures This patient has no known procedures. Plan of Care Planned Activity Planned Date Details Comments Source Future Scheduled 2020-05-21 INFLUENZA VACCINE Evangelista sanchez [facility] 00:00:00 [code = INFLUENZA VACCINE] Future Scheduled 2020-05-21 IMM Influenza [place] Test 00:00:00 Seasonal May to October (>/= 19 yrs) [code = IMM Influenza Seasonal May to October (>/= 19 yrs)] Future Scheduled 2006 Screening for [facility]os [facility] 00:00:00 malignant neoplasm of cervix (procedure) [code = 926551591] Future Scheduled 2006 Screening for [place] [place] [facility] Test 00:00:00 malignant neoplasm of cervix (procedure) [code = 029414648] Encounters Start End Encounter Admission Attending Care Care Encounter Source Date/Time Date/Time Type Type Clinicians Facility Department ID 2019-04-14 2019-04-14 Emergency Concepcion [facility] [id number] 17:25:25 17:58:00 Ad Smith [id number] [place] [id number] [place] [id number] 2019-03-18 2019-03-18 Emergency Vonda Allen [facility] [id number] 22:34:35 23:51:00 Maribel Smith [id number] [place] [id number] [place] [id number] 2017-04-09 2017-04-09 Emergency [facility] [id number] [place] 00:00:00 00:00:00 Health 2017-04-09 2017-04-09 Emergency [facility] [id number] Krish[place]thy 00:00:00 00:00:00 Health 2017-04-08 2017-04-08 Emergency [facility] [id number] [place] 22:35:00 22:35:00 Health 2017-04-08 2017-04-08 Emergency [facility] [id number] [place] 00:00:00 00:00:00 Health Results Test Description Test Time Test Comments Results Result Comments Source HEMOGLOBIN A1C 2017-07-16 13:26:00 Test Item Value Reference Range Interpretation Comme nts HEMOGLOBIN A1C (BEAKER) (test code = 368) 5.2 % 4.3-6.1 CBC W/PLT COUNT & AUTO [id number] 09:42:00 Test Item Value Reference Range Interpretation [...] MORPHOLOGY (BEAKER) (test code Normal = 762) [id number] 07:11:00 Test Item Value Reference Range Interpretation Comments MAGNESIUM (BEAKER) (test code = 1.5 mg/dL 1.6-2.6 L 627) BASIC METABOLIC [id number] 07:11:00 Test Item Value Reference Range Interpretation [...] NOT APPLICABLE FOR DIALYSIS PATIABDULLAHI TS. LIPID [id number] 07:11:00 Test Item Value Reference Range Interpretation [...] Borderline 130-159 High 160-189 Very High >=190TROPONIN [id number] 06:34:00 Test Item Value Reference Range Interpretation [...] acidosis, acute neurological disease, and persistent tachyarrhythmia.TROPONIN [id number] 23:58:00 Test Item Value Reference Range Interpretation [...]
--- OUTSIDE RECORDS SUMMARY | 2020-04-14 20:25 | XMS REPORT | Clinical Summary ---
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
[2020-04-14] MEDS ORDERED: ACETAMINOPHEN 500 MG TAB ONE (21:20)
--- NOTE | 2020-04-14 22:58 | ER ---
Nurse's Notes [facility] Name: Natasha Spann Age: 35 yrs Sex: Female : 1985 Arrival Date: 04/14/2020 Time: 20:26 Bed 8 Private MD: Diagnosis: Left Lower Extremity Wound-Chronic Presentation: 04/14 20:33 Chief complaint: Patient states: Left leg amputation site has been infected off/on for ll1 8 months, has been seen here for this. Today she had pain while working to [employer]. When she removed her leg this evening the wound split wide open, she states its draining clear-brown drainage. No known fever. Coronavirus screen: Client denies travel out of the [place] in the last 14 days. cough unrelated to allergies, Client presents with at least one sign or symptom that may indicate coronavirus-19. Standard/surgical mask placed on the client. Ebola Screen: Patient denies travel to an Ebola-affected area in the 21 days before illness onset. Initial Sepsis Screen: Does the patient meet any 2 criteria? No. Patient's initial sepsis screen is negative. Risk Assessment: Do you want to hurt yourself or someone else? Patient reports no desire to harm self or others. Onset of symptoms was April 14, 2020. 20:33 Method Of Arrival: Ambulatory ll1 20:33 Acuity: EMILY 3 ll1 20:47 Initial Sepsis Screen: Does the patient have a suspected source of infection? Yes: Skin rv breakdown/wound. Historical: - Allergies: 20:36 bupropion HCl; ll1 20:36 Wellbutrin; ll1 20:36 Levofloxacin; ll1 - PMHx: 20:36 ADD/ADHD; Anxiety; Bipolar disorder; Depression; Endometrosis; Gastric Reflux; MRSA; ll1 osteomylitis; Ovarian cyst; UTI; - PSHx: 20:36 L BKA; ll1 - Immunization history:: Flu vaccine is not up to date. - Social history:: Smoking status: Patient reports the use of cigarette tobacco products, smokes one-half pack cigarettes per day, Patient/guardian denies using alcohol, street drugs. Screenin:47 Abuse screen: Denies threats or abuse. Denies injuries from another. Nutritional rv screening: No deficits noted. Tuberculosis screening: No symptoms or risk factors identified. Fall Risk None identified. Assessment: 20:45 General: Appears uncomfortable, Behavior is calm, cooperative. Pain: Complains of pain rv in left leg amputation site Pain currently is 9 out of 10 on a pain scale. Neuro: Level of Consciousness is awake, alert, obeys commands, Oriented to person, place, time, situation. Cardiovascular: Patient's skin is warm and dry. Respiratory: Airway is patent Respiratory effort is even, unlabored. Derm: Wound noted left leg, amputation site Reports pain that is 9 out of 10 on a pain scale. Musculoskeletal:. 22:42 Reassessment: PATIENT UPDATED ON THE LENGTH OF WAIT. AWAITING RESULT OF X-RAY. rv 23:05 Reassessment: DR MCCULLOUGH EXPLAINED THE RESULT OF THE X-RAY. PATIENT UNDERSTOOD. Neuro: rv Level of Consciousness is awake, alert, obeys commands, Oriented to person, place, time, situation. Vital Signs: 20:33 BP 145 / 83; Pulse 84; Resp 17; Temp 98.5; Pulse Ox 99% ; Weight 86.18 kg; Height 5 ft. ll1 8 in. (172.72 cm); Pain 8/10; 21:45 BP 128 / 75; Pulse 74; Resp 16; Pulse Ox 99% on R/A; rv 22:41 BP 122 / 79; Pulse 57; Resp 16; Pulse Ox 99% on R/A; rv 23:04 BP 133 / 90; Pulse 73; Resp 17; Pulse Ox 100% on R/A; rv 20:33 Body Mass Index 28.89 (86.18 kg, 172.72 cm) ll1 ED Course: 20:26 Patient arrived in ED. es 20:34 Chris Chilel, JONY is Primary Nurse. rv 20:35 Triage completed. ll1 20:36 Arm band placed on Patient placed in an exam room, on a stretcher. ll1 20:47 Patient has correct armband on for positive identification. Bed in low position. Call rv light in reach. Side rails up X 1. Pulse ox on. NIBP on. 20:49 Tim Mccullough MD is Attending Physician. mh7 21:18 Tib Fib Left XRAY In Process Unspecified. EDMS 21:46 Patient did not have IV access during this emergency room visit. Wound care: to rv infected wound located on left leg was dressed with Neosporin, 4X4s, Patient tolerated well. 23:05 No provider procedures requiring assistance completed. rv Administered Medications: 21:10 Drug: Tylenol 1000 mg Route: PO; rv 21:46 Follow up: Response: No adverse reaction rv 22:13 Follow up: Response: No adverse reaction; Pain is decreased mt2 Outcome: 22:57 Discharge ordered by . gary 23:05 Discharged to home via wheelchair. rv 23:05 Condition: good 23:05 Discharge instructions given to patient, Instructed on discharge instructions, follow up and referral plans. Demonstrated understanding of instructions, follow-up care. 23:06 Patient left the ED. rv Signatures: Dispatcher [employer] Kimberlyn Muller Ronaldo RN Shen Bennett RN RN ll1 Tim Mccullough MD MD 7 Jazmine Suarez RN RN mt2
--- NOTE | 2020-04-14 22:58 | EDPHYS ---
Physician Documentation [facility] Name: Natasha Spann Age: 35 yrs Sex: Female : 1985 Arrival Date: 04/14/2020 Time: 20:26 Bed 8 Private MD: ED Physician Tim Mccullough HPI: 04/14 21:01 This 35 yrs old Female presents to ER via Ambulatory with complaints of open mh7 wound. 21:01 The patient presents with pain, that is chronic, open wound, chronic. The complaints mh7 affect the left lateral aspect of BKA site. Context: The problem was sustained at an unknown site, resulted from an unknown cause, the patient can fully bear weight, with prosthesis. Onset: The symptoms/episode began/occurred today. Modifying factors: The symptoms are alleviated by nothing. the symptoms are aggravated by nothing. Associated signs and symptoms: Pertinent negatives calf tenderness, fever, nausea, numbness, rash, swelling, tingling, vomiting, warmth, weakness. Treatment prior to arrival includes: no previous treatment. Severity of symptoms: At their worst the symptoms were moderate, earlier today, in the emergency department the symptoms have improved, moderately. The patient has experienced similar episodes in the past, chronically. Patient with history of left lower extremity BKA complains of increased pain to area of BKA with chronically open wound. States that she felt pain to area while at work then saw wound appeared to be more open when she removed her prosthesis tonight. Denies any recent trauma, fever, nausea, vomiting, discharge, bleeding, numbness/tingling, or weakness.. Historical: - Allergies: 20:36 bupropion HCl; ll1 20:36 Wellbutrin; ll1 20:36 Levofloxacin; ll1 - PMHx: 20:36 ADD/ADHD; Anxiety; Bipolar disorder; Depression; Endometrosis; Gastric Reflux; MRSA; ll1 osteomylitis; Ovarian cyst; UTI; - PSHx: 20:36 L BKA; ll1 - Immunization history:: Flu vaccine is not up to date. - Social history:: Smoking status: Patient reports the use of cigarette tobacco products, smokes one-half pack cigarettes per day, Patient/guardian denies using alcohol, street drugs. ROS: 21:01 Constitutional: Negative for fever, chills, and weight loss, Eyes: Negative for injury, mh7 pain, redness, and discharge, ENT: Negative for injury, pain, and discharge, Neck: Negative for injury, pain, and swelling, Cardiovascular: Negative for chest pain, palpitations, and edema, Respiratory: Negative for shortness of breath, cough, wheezing, and pleuritic chest pain, Abdomen/GI: Negative for abdominal pain, nausea, vomiting, diarrhea, and constipation, Back: Negative for injury and pain, : Negative for injury, bleeding, discharge, and swelling, Neuro: Negative for headache, weakness, numbness, tingling, and seizure, Psych: Negative for depression, anxiety, suicide ideation, homicidal ideation, and hallucinations, Allergy/Immunology: Negative for hives, rash, and allergies, Endocrine: Negative for neck swelling, polydipsia, polyuria, polyphagia, and marked weight changes, Hematologic/Lymphatic: Negative for swollen nodes, abnormal bleeding, and unusual bruising. Exam: 21:01 Constitutional: This is a well developed, well nourished patient who is awake, alert, mh7 and in no acute distress. Head/Face: Normocephalic, atraumatic. Neck: Trachea midline, no thyromegaly or masses palpated, and no cervical lymphadenopathy. Supple, full range of motion without nuchal rigidity, or vertebral point tenderness. No Meningismus. Chest/axilla: Normal chest wall appearance and motion. Nontender with no deformity. No lesions are appreciated. Cardiovascular: Regular rate and rhythm with a normal S1 and S2. No gallops, murmurs, or rubs. Normal PMI, no JVD. No pulse deficits. Respiratory: Lungs have equal breath sounds bilaterally, clear to auscultation and percussion. No rales, rhonchi or wheezes noted. No increased work of breathing, no retractions or nasal flaring. Abdomen/GI: Soft, non-tender, with normal bowel sounds. No distension or tympany. No guarding or rebound. No evidence of tenderness throughout. Back: No spinal tenderness. No costovertebral tenderness. Full range of motion. 21:01 Neuro: Awake and alert, GCS 15, oriented to person, place, time, and situation. Cranial nerves II-XII grossly intact. Motor strength 5/5 in all extremities. Sensory grossly intact. Cerebellar exam normal. Normal gait. Psych: Awake, alert, with orientation to person, place and time. Behavior, mood, and affect are within normal limits. 21:01 Musculoskeletal/extremity: Extremities: noted in the left lateral aspect of left BKA: small wound approximately 1.5 cm without drainage,discharge, erythema, or induration, ROM: intact in all extremities, Circulation is intact in all extremities. Sensation intact. Compartment Syndrome exam of affected extremity: is normal. no numbness, no tingling, no sensation deficit, no palor, no weak pulses, Joints: All joints appear normal with full range of motion. Weight bearing: able to fully bear weight, with prosthesis, Tendon exam: specific tendon testing normal through active and passive range of motion DVT Exam: 21:01 Skin: small wound at left lateral aspect of left BKA without erythema, discharge, induration. Vital Signs: 20:33 BP 145 / 83; Pulse 84; Resp 17; Temp 98.5; Pulse Ox 99% ; Weight 86.18 kg; Height 5 ft. ll1 8 in. (172.72 cm); Pain 8/10; 21:45 BP 128 / 75; Pulse 74; Resp 16; Pulse Ox 99% on R/A; rv 22:41 BP 122 / 79; Pulse 57; Resp 16; Pulse Ox 99% on R/A; rv 23:04 BP 133 / 90; Pulse 73; Resp 17; Pulse Ox 100% on R/A; rv 20:33 Body Mass Index 28.89 (86.18 kg, 172.72 cm) ll1 MDM: 20:56 Patient medically screened. [facility] 22:54 Differential diagnosis: open fracture, contusion, abrasion, wound dehiscense. Data [facility] reviewed: vital signs, nurses notes, old medical records, radiologic studies, plain films. Data interpreted: Pulse oximetry: on room air is 99 %. Interpretation: normal. Counseling: I had a detailed discussion with the patient and/or guardian regarding: the historical points, exam findings, and any diagnostic results supporting the discharge/admit diagnosis, lab results, radiology results, the need for outpatient follow up, to return to the emergency department if symptoms worsen or persist or if there are any questions or concerns that arise at home. Response to treatment: the patient's symptoms have markedly improved after treatment. 04/14 20:57 Order name: Tib Fib Left XRAY [facility] Administered Medications: 21:10 Drug: Tylenol 1000 mg Route: PO; rv 21:46 Follow up: Response: No adverse reaction rv 22:13 Follow up: Response: No adverse reaction; Pain is decreased mt2 Disposition: 04/15 01:51 Co-signature as Attending Physician, Tim Mccullough MD. 7 Disposition: 04/14/20 22:57 Discharged to Home. Impression: Left Lower Extremity Wound-Chronic. - Condition is Stable. - Discharge Instructions: Wound Dehiscence, [id number], Wound Care. - Medication Reconciliation Form, Thank You Letter, Antibiotic Education, Prescription Opioid Use form. - Follow up: Private Physician; When: 1 - 2 days; Reason: Worsening of condition, Recheck today's complaints, Continuance of care, Re-evaluation by your physician. - Problem is chronic. - Symptoms have improved. Signatures: Dispatcher [employer] EDMS Chris Chilel RN RN Shen Paez RN RN 1 Tim Mccullough MD MD [facility] Jazmine Suarez RN mt2 Corrections: (The following items were deleted from the chart) 04/14 23:06 22:57 04/14/2020 22:57 Discharged to Home. Impression: Left Lower Extremity rv Wound-Chronic. Condition is Stable. Forms are Medication Reconciliation Form, Thank You Letter, Antibiotic Education, Prescription Opioid Use. Follow up: Private Physician; When: 1 - 2 days; Reason: Worsening of condition, Recheck today's complaints, Continuance of care, Re-evaluation by your physician. Problem is chronic. Symptoms have improved. [facility]
--- NOTE | 2020-04-15 10:15 | RAD REPORT ---
EXAM DESCRIPTION: RAD - Tib Fib Left - 04/14/2020 9:18 pm CLINICAL HISTORY: 35 years Female PAIN COMPARISON: None TECHNIQUE: Two images of the left knee were obtained. FINDINGS: Findings consistent with below the knee amputation to level of proximal tibial and fibular shafts. Surgical john adjacent lateral soft tissues distally. Sclerotic changes versus methylmeth acrylate lateral proximal tibia. No cortical disruption. No abnormal periosteal reaction. Defects distal tibia consistent with prior instrumentation. Patchy demineralization tibial remnant. IMPRESSION: No acute fracture or dislocation seen. Findings consistent with prior surgery and instru mentation. Patchy demineralization tibial remnant. Correlation with magnetic resonance study would be suggested to further exclude osteomyelitis. Electronically signed by: Tiffanie Stone MD 04/14/2020 10:42 PM CDT Due to temporary technical issues with the PACS/Fluency reporting system, reports are being signed by the in house radiologist without review as a courtesy to ensure prompt reporting. The interpreting r adiologist is fully responsible for the content of the report.
[2020-04-18 19:37] VITALS: TEMP 98.5
[2020-04-18 19:41] VITALS: BP 133/90; O2SAT 100
== END 2020-04-14 23:06 | disposition home or self-care (01) ==
LOC: ER 20:24
DX: T87.81 Dehiscence of amputation stump (principal); X58.XXXA Exposure to other specified factors, initial encounter; Z89.512 Acquired absence of left leg below knee; Z97.14 Presence of artificial left leg (complete) (partial); Z88.3 Allergy status to other anti-infective agents; F17.210 Nicotine dependence, cigarettes, uncomplicated
CPT/HCPCS: 99284

== ENCOUNTER 2020-04-18 00:18 | Emergency (ER) | payer SELFPAY ==
--- OUTSIDE RECORDS SUMMARY | 2020-04-18 00:20 | XMS REPORT | Clinical Summary ---
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
--- OUTSIDE RECORDS SUMMARY | 2020-04-18 00:20 | XMS REPORT | Clinical Summary ---
:[address] [facility] Address [address] [place] [address] Care Team Providers Name Role Phone Cathy [...] Not on file Results Not on fileafter 04/18/2019 Insurance Payer Benefit Plan / Group Subscriber ID Type Phone A ddress xxxxxxxxx Other Govt (, [place], [employer], etc.) Advance Directives For more information, please contact:[address] [phone] Code Status Date Activated Date Inactivated Comments Full Code 07/15/2017 10:38 PM 07/16/2017 5:00 PM This code status was determined by: Patient
--- OUTSIDE RECORDS SUMMARY | 2020-04-18 00:20 | XMS REPORT | Clinical Summary ---
:1985 Author Organization [facility] Address [facility] [place] [address] Care Team Providers Name Role Phone Unavailable [...] 19 yrs) 05/21/2020 Results Not on fileafter 04/18/2019 Insurance Payer Benefit Plan / Subscriber ID Effective Phone Address T ype Group Dates HOMELESS TERESA HOMELESS TERESA 2015-Pres [phone] [id number] [place] [address] [facility] SELF-PAY SELF-PAY xxxxxxxxx 2017-Pres [phone] [place] [address]
--- OUTSIDE RECORDS SUMMARY | 2020-04-18 00:21 | XMS REPORT | Continuity of Care Document ---
:1985 Author Organization [facility] t Address [address] [place] [address] Care Team Providers Name Role Phone Freddy [...] [place] [facility] 09[facility]14 [facility] - 00:00: Medical [address] [place] [address] Pelvic Pelvic Disease Active Raghu pain in [...] s to drug Benztrop Propensi Active Swelling Naette is ine ty to 04-16 Health adverse [...] Source Maternal aunt Coronary artery [facility] Maternal grandmother Coronary artery [facility] Natural mother Coronary artery [facility] Natural brother Diabetes Located within [facility] Social History Social Habit Start Date Stop Date Quantity Comments Source History of tobacco Cigarette Smoker [facility] use Sex Assigned At [facility] Cigarettes smoked 2015-04-20 2015-04-20 [facility] current (pack per 00:00:00 00:00:00 day) - Reported Cigarette 2015-04-20 2015-04-20 [facility] pack-years 00:00:00 00:00:00 Alcohol intake 2015-04-20 2015-04-20 [facility] 00:00:00 00:00:00 of alcohol (finding) Alcohol Comment 2015-04-16 2015-04-16 last drink 02/2015 [facility] 00:00:00 00:00:00 Smoking Status Start Date Stop Date Source Never smoker Karlos colon Current every day smoker 2015-04-20 00:00:00 [facility] Medications Ordered Filled Start Stop Current Ordering [...] MG 22:01: mouth Medical tablet 26 nightly. [place] ARIPiprazol 2016-08 Yes 15mg QD Take [address] [facility] (ABILIFY) 1-25 by mouth Luke s - 15 MG 22:01: nightly. Medical tablet 26 Center ibuprofen Yes Tooth 800mg Take 4 Anette is (MOTRIN) 8-31 infection tablets by [employer] 200 mg 00:00: mouth tablet 00 every [...] Future Scheduled 2020-05-21 INFLUENZA VACCINE [facility] Test 00:00:00 [code = INFLUENZA VACCINE] Future Scheduled 2020-05-21 IMM Influenza [place] [facility] Test 00:00:00 Seasonal May to October (>/= 19 yrs) [code = IMM Influenza Seasonal May to October (>/= 19 yrs)] Future Scheduled 2006 Screening for [facility]odist Test 00:00:00 malignant neoplasm of cervix (procedure) [code = 822773836] Future Scheduled 2006 Screening for [place] [facility] Test 00:00:00 malignant neoplasm of cervix (procedure) [code = 840259276] Encounters Start End Encounter Admission Attending Care Care Encounter Source Date/Time Date/Time Type Type Clinicians Facility Department ID 2019-04-14 2019-04-14 Emergency Concepcion [facility] [id number] 17:25:25 17:58:00 Ad Smith [id number] [place] [id number] [place] [address] [id number] 2019-03-18 2019-03-18 Emergency Vonda Allen [facility] [id number] 22:34:35 23:51:00 Maribel Smith [id number] [place] [id number] [place] [address] [id number] 082017-04-09 2017-04-09 Emergency [facility] [id number] Krishnamurthy 00:00:00 00:00:00 Health 2017-04-09 2017-04-09 Emergency [facility] [id number] Krishnamurthy 00:00:00 00:00:00 Health 2017-04-08 2017-04-08 Emergency [facility] [id number] Krishnamurthy 22:35:00 22:35:00 Health 2017-04-08 2017-04-08 Emergency [facility] [id number] [place] 00:00:00 00:00:00 Health Results Test Description Test Time Test Comments Results Result Comments Source HEMOGLOBIN A1C 2017-07-16 13:26:00 Test Item Value Reference Range Interpretation Comme nts HEMOGLOBIN A1C (BEAKER) (test code = 368) 5.2 % 4.3-6.1 CBC W/PLT COUNT & AUTO [id number] 09:42:00 Test Item Value Reference Range Interpretation [...] MORPHOLOGY (BEAKER) (test code Normal = 762) [id number] 07:11:00 Test Item Value Reference Range Interpretation Comments MAGNESIUM (BEAKER) (test code = 1.5 mg/dL 1.6-2.6 L 627) BASIC METABOLIC [id number] 07:11:00 Test Item Value Reference Range Interpretation [...] NOT APPLICABLE FOR DIALYSIS PATIEN TS. LIPID [id number] 07:11:00 Test Item Value Reference Range Interpretation [...] Borderline 130-159 High 160-189 Very High >=190TROPONIN [id number] 06:34:00 Test Item Value Reference Range Interpretation [...] acidosis, acute neurological disease, and persistent tachyarrhythmia.TROPONIN [id number] 23:58:00 Test Item Value Reference Range Interpretation [...]
[2020-04-18 01:34] LABS: Absolute Lymphocytes (CBC) 5.9 K/uL (0.7-4.9); Basophils % 0.8 % (0-1.3); Hematocrit 40.7 % (36.0-45.0); Lymphocytes % 43.4 % (15.3-44.8); MPV 7.6 fL (7.6-11.3); RBC Red Blood Cell Count 4.43 M/uL (3.86-4.86)
[2020-04-18] MEDS ORDERED: ONDANSETRON 4 MG/2 ML VIAL ONE ×2 (01:47→03:35)
[2020-04-18] MEDS ORDERED: NA CHLORIDE 0.9% 1,000 ML ONE ×2 (01:47→02:13)
[2020-04-18 01:54] LABS: ALT/SGPT 35 U/L (12-78); AST/SGOT 18 U/L (15-37); Albumin 3.8 g/dL (3.4-5.0); Alkaline Phosphatase 90 U/L (45-117); BUN Blood Urea Nitrogen 7 mg/dL (7-18); Bicarbonate 27 mmol/L (21-32); Bilirubin Direct < 0.1 mg/dL (0-0.2); Bilirubin Total 0.2 mg/dL (0.2-1.0); Glucose Level 85 mg/dL (74-106); Lipase 163 U/L (73-393); Potassium 3.8 mmol/L (3.5-5.1); Protein, Total 7.9 g/dL (6.4-8.2); Sodium Level 139 mmol/L (136-145)
[2020-04-18] MEDS ORDERED: MORPHINE 2 MG/ML SYR ONE ×2 (02:12→03:35)
[2020-04-18] MEDS ORDERED: FAMOTIDINE 20 MG/2 ML VIAL IV ONE (02:13)
[2020-04-18 03:06] LABS: Urine Blood TRACE (NEG); Urine Glucose NEGATIVE (NEG); Urine Protein NEGATIVE (NEG); Urine Specific Gravity 1.015 (1.005-1.030); Urine pH 6.5 (5.0-7.0)
--- NOTE | 2020-04-18 04:45 | ER ---
Nurse's Notes [facility] Name: Natasha Spann Age: 35 yrs Sex: Female : 1985 Arrival Date: 04/18/2020 Time: 00:21 Bed 14 Private MD: Diagnosis: Vomiting;Abdominal tenderness-enteritis;Elevated white blood cell count Presentation: 04/18 00:40 Chief complaint: Patient states: I have been feeling really weird lately, I have been jb4 having cold sweats, I have been getting light headed and nauseous and now I am vomiting and have abdominal pain. 00:40 Coronavirus screen: Client denies travel out of the [place] in the last 14 days. At this jb4 time, the client does not indicate any symptoms associated with coronavirus-19. Ebola Screen: No symptoms or risks identified at this time. Initial Sepsis Screen: Does the patient meet any 2 criteria? No. Patient's initial sepsis screen is negative. Does the patient have a suspected source of infection? Yes: Acute abdominal pain. Risk Assessment: Do you want to hurt yourself or someone else? Patient reports no desire to harm self or others. Onset of symptoms was April 03, 2020. Transition of care: patient was not received from another setting of care. 00:40 Method Of Arrival: Ambulatory jb4 00:40 Acuity: EMILY 3 jb4 Historical: - Allergies: 00:40 bupropion HCl; jb4 00:40 Levofloxacin; jb4 00:40 Wellbutrin; jb4 - Home Meds: 00:40 aripiprazole 15 mg Oral tab 1 tab nightly [Active]; trazodone 150 mg Oral tab 1 tab jb4 night prn [Active]; propranolol 20 mg Oral tab 1 tab 2 times per day [Active]; hydroxyzine HCl 25 mg Oral tab 4 times per day [Active]; duloxetine 30 mg Oral cpDR 1 cap once daily [Active]; Cogentin Oral [Active]; - PMHx: 00:40 ADD/ADHD; Bipolar disorder; Anxiety; Depression; Endometrosis; Gastric Reflux; MRSA; jb4 osteomylitis; Ovarian cyst; UTI; - PSHx: 00:40 Below the knee amputation left leg; jb4 - Immunization history:: Adult Immunizations up to date. - Social history:: Smoking status: Patient reports the use of cigarette tobacco products, smokes one-half pack cigarettes per day, Patient/guardian denies using alcohol, street drugs. Screenin:40 Abuse screen: Denies threats or abuse. Nutritional screening: No deficits noted. jb4 Tuberculosis screening: No symptoms or risk factors identified. Fall Risk None identified. Assessment: 00:40 General: Appears in no apparent distress. uncomfortable, Behavior is calm, cooperative, jb4 appropriate for age. Pain: Complains of pain in abdomen Pain does not radiate. Pain currently is 8 out of 10 on a pain scale. Quality of pain is described as burning, crampy. Neuro: Level of Consciousness is awake, alert, obeys commands, Oriented to person, place, time, situation. Cardiovascular: Patient's skin is warm and dry. Respiratory: Airway is patent Respiratory effort is even, unlabored, Respiratory pattern is regular, symmetrical. GI: Abdomen is flat, non-distended, Reports nausea, vomiting. : Reports urinary frequency. EENT: No signs and/or symptoms were reported regarding the EENT system. Derm: Skin is intact, Skin is pink, warm \T\ dry. Musculoskeletal: Circulation, motion, and sensation intact. Range of motion: intact in all extremities. 02:00 Reassessment: Patient appears in no apparent distress at this time. Patient and/or jb4 family updated on plan of care and expected duration. Pain level reassessed. Patient is alert, oriented x 3, equal unlabored respirations, skin warm/dry/pink. 03:00 Reassessment: Patient appears in no apparent distress at this time. Patient and/or jb4 family updated on plan of care and expected duration. Pain level reassessed. Patient is alert, oriented x 3, equal unlabored respirations, skin warm/dry/pink. Patient states feeling better. 04:00 Reassessment: Patient appears in no apparent distress at this time. Patient and/or jb4 family updated on plan of care and expected duration. Pain level reassessed. Patient is alert, oriented x 3, equal unlabored respirations, skin warm/dry/pink. Patient states feeling better. 04:52 Reassessment: Patient to be discharged pending 15 minute shot time. vc 05:16 Reassessment: Patient and/or family updated on plan of care and expected duration. Pain jb4 level reassessed. Patient is alert, oriented x 3, equal unlabored respirations, skin warm/dry/pink. PT verbalized understanding of d/c and follow up instructions. Denies questions or concerns. Ambulated out of ED with steady gait. Vital Signs: 00:40 BP 122 / 80; Pulse 84; Resp 16; Temp 98.3(O); Pulse Ox 100% on R/A; Weight 86.18 kg jb4 (R); Height 5 ft. 8 in. (172.72 cm) (R); Pain 6/10; 02:15 BP 108 / 70; Pulse 58; Resp 16; Pulse Ox 99% on R/A; jb4 03:15 BP 103 / 67; Pulse 62; Resp 16; Pulse Ox 100% on R/A; jb4 05:00 BP 111 / 74; Pulse 64; Resp 16; Pulse Ox 100% on R/A; jb4 00:40 Body Mass Index 28.89 (86.18 kg, 172.72 cm) jb4 ED Course: 00:21 Patient arrived in ED. cl3 00:38 Foster Rojas, RN is Primary Nurse. jb4 00:40 Arm band placed on right wrist. jb4 00:40 Patient has correct armband on for positive identification. Bed in low position. Call jb4 light in reach. Side rails up X 1. Pulse ox on. NIBP on. 00:56 Triage completed. jb4 01:24 Basic Metabolic Panel Sent. jb4 01:24 CBC with Diff Sent. jb4 01:24 Hepatic Function Sent. jb4 01:24 Lipase Sent. jb4 01:25 Ole Epstein MD is Attending Physician. imelda 02:05 Radiology exam delayed due to test not completed at this time. kw1 02:24 Radiology exam delayed due to test not completed at this time. kw1 02:53 Radiology exam delayed due to. kw1 03:19 CT Abd/Pelvis - IV Contrast Only In Process Unspecified. EDMS 04:42 Michoacano Felipe MD is Referral Physician. imelda 05:18 No provider procedures requiring assistance completed. IV discontinued, intact, jb4 bleeding controlled, No redness/swelling at site. Administered Medications: 01:46 Drug: NS 0.9% 1000 ml Route: IV; Rate: 1 bolus; Site: right antecubital; jb4 04:53 Follow up: IV Status: Completed infusion; IV Intake: 1000ml vc 01:46 Drug: Zofran (Ondansetron) 4 mg Route: IVP; Site: right antecubital; jb4 02:15 Follow up: Response: No adverse reaction; Nausea is decreased jb4 02:10 Drug: morphine 2 mg {Note: Rass score 0.} Route: IVP; Site: right antecubital; jb4 02:40 Follow up: Response: No adverse reaction; Pain is decreased; RASS: Alert and Calm (0) jb4 02:10 Drug: Pepcid 20 mg Route: IVP; Site: right antecubital; jb4 02:40 Follow up: Response: No adverse reaction jb4 03:56 Drug: NS 0.9% 1000 ml Route: IV; Rate: 1 bolus; Site: right upper arm; jb4 04:53 Follow up: IV Status: Completed infusion; IV Intake: 1000ml vc 03:56 Drug: morphine 2 mg Route: IVP; Site: right upper arm; jb4 04:53 Follow up: Response: No adverse reaction vc 03:56 Drug: Zofran (Ondansetron) 4 mg Route: IVP; Site: right upper arm; jb4 04:53 Follow up: Response: No adverse reaction vc 04:51 Drug: Rocephin 1 grams Route: IV; Rate: per protocol; Site: right antecubital; vc 05:15 Follow up: Response: No adverse reaction; IV Status: Completed infusion jb4 Intake: 04:53 IV: 1000ml; Total: 1000ml. vc 04:53 IV: 1000ml; Total: 2000ml. vc Outcome: 04:44 Discharge ordered by MD. segura 05:18 Discharged to home ambulatory. jb4 05:18 Condition: stable 05:18 Discharge instructions given to patient, Instructed on discharge instructions, follow up and referral plans. medication usage, Demonstrated understanding of instructions, follow-up care, medications, Prescriptions given X 4. 05:19 Patient left the ED. jb4 Signatures: Dispatcher [employer] Ole Aleajndre MD MD cha Bryson, James, RN RN jb4 Radha Sims kw1 Ralf Paez cl3 Marta Worthington RN RN vc
--- NOTE | 2020-04-18 04:45 | EDPHYS ---
Physician Documentation [facility] Name: Natasha Spann Age: 35 yrs Sex: Female : 1985 Arrival Date: 04/18/2020 Time: 00:21 Bed 14 Private MD: ALLY Physician Ole Epstein HPI: 04/18 01:52 This 35 yrs old Female presents to ER via Ambulatory with complaints of imelda Nausea/Vomiting. 01:52 The patient presents to the emergency department with nausea, vomiting, abdominal pain, imelda of the right upper quadrant, left upper quadrant, right lower quadrant and left lower quadrant. Onset: The symptoms/episode began/occurred 1 day(s) ago. Possible causes: unknown. The symptoms are aggravated by pressure, food , The symptoms are alleviated by nothing. remaining still. Associated signs and symptoms: Pertinent positives: abdominal pain. Severity of symptoms: At their worst the symptoms were mild moderate in the emergency department the symptoms are unchanged. The patient has experienced similar episodes in the past, a few times. Historical: - Allergies: 00:40 bupropion HCl; jb4 00:40 Levofloxacin; jb4 00:40 Wellbutrin; jb4 - Home Meds: 00:40 aripiprazole 15 mg Oral tab 1 tab nightly [Active]; trazodone 150 mg Oral tab 1 tab jb4 night prn [Active]; propranolol 20 mg Oral tab 1 tab 2 times per day [Active]; hydroxyzine HCl 25 mg Oral tab 4 times per day [Active]; duloxetine 30 mg Oral cpDR 1 cap once daily [Active]; Cogentin Oral [Active]; - PMHx: 00:40 ADD/ADHD; Bipolar disorder; Anxiety; Depression; Endometrosis; Gastric Reflux; MRSA; jb4 osteomylitis; Ovarian cyst; UTI; - PSHx: 00:40 Below the knee amputation left leg; jb4 - Immunization history:: Adult Immunizations up to date. - Social history:: Smoking status: Patient reports the use of cigarette tobacco products, smokes one-half pack cigarettes per day, Patient/guardian denies using alcohol, street drugs. ROS: 01:53 Constitutional: Negative for fever, chills, and weight loss, Eyes: Negative for injury, imelda pain, redness, and discharge, ENT: Negative for injury, pain, and discharge, Neck: Negative for injury, pain, and swelling, Cardiovascular: Negative for chest pain, palpitations, and edema, Respiratory: Negative for shortness of breath, cough, wheezing, and pleuritic chest pain, Back: Negative for injury and pain, : Negative for injury, bleeding, discharge, and swelling, MS/Extremity: Negative for injury and deformity, Skin: Negative for injury, rash, and discoloration, Neuro: Negative for headache, weakness, numbness, tingling, and seizure, Psych: Negative for depression, anxiety, suicide ideation, homicidal ideation, and hallucinations, Allergy/Immunology: Negative for hives, rash, and allergies, Endocrine: Negative for neck swelling, polydipsia, polyuria, polyphagia, and marked weight changes, Hematologic/Lymphatic: Negative for swollen nodes, abnormal bleeding, and unusual bruising. 01:53 Abdomen/GI: Positive for abdominal pain, nausea and vomiting, abdominal cramps, of the right upper quadrant, left upper quadrant, right lower quadrant and left lower quadrant. Exam: 01:53 Constitutional: This is a well developed, well nourished patient who is awake, alert, imelda and in no acute distress. Head/Face: Normocephalic, atraumatic. Eyes: Pupils equal round and reactive to light, extra-ocular motions intact. Lids and lashes normal. Conjunctiva and sclera are non-icteric and not injected. Cornea within normal limits. Periorbital areas with no swelling, redness, or edema. ENT: Nares patent. No nasal discharge, no septal abnormalities noted. Tympanic membranes are normal and external auditory canals are clear. Oropharynx with no redness, swelling, or masses, exudates, or evidence of obstruction, uvula midline. Mucous membranes moist. Neck: Trachea midline, no thyromegaly or masses palpated, and no cervical lymphadenopathy. Supple, full range of motion without nuchal rigidity, or vertebral point tenderness. No Meningismus. Chest/axilla: Normal chest wall appearance and motion. Nontender with no deformity. No lesions are appreciated. Cardiovascular: Regular rate and rhythm with a normal S1 and S2. No gallops, murmurs, or rubs. Normal PMI, no JVD. No pulse deficits. Respiratory: Lungs have equal breath sounds bilaterally, clear to auscultation and percussion. No rales, rhonchi or wheezes noted. No increased work of breathing, no retractions or nasal flaring. Back: No spinal tenderness. No costovertebral tenderness. Full range of motion. Skin: Warm, dry with normal turgor. Normal color with no rashes, no lesions, and no evidence of cellulitis. MS/ Extremity: Pulses equal, no cyanosis. Neurovascular intact. Full, normal range of motion. Neuro: Awake and alert, GCS 15, oriented to person, place, time, and situation. Cranial nerves II-XII grossly intact. Motor strength 5/5 in all extremities. Sensory grossly intact. Cerebellar exam normal. Normal gait. Psych: Awake, alert, with orientation to person, place and time. Behavior, mood, and affect are within normal limits. 01:53 Abdomen/GI: Inspection: distension, Bowel sounds: normal, Liver: no appreciated palpable abnormalities, Hernia: not appreciated. Vital Signs: 00:40 BP 122 / 80; Pulse 84; Resp 16; Temp 98.3(O); Pulse Ox 100% on R/A; Weight 86.18 kg jb4 (R); Height 5 ft. 8 in. (172.72 cm) (R); Pain 6/10; 02:15 BP 108 / 70; Pulse 58; Resp 16; Pulse Ox 99% on R/A; jb4 03:15 BP 103 / 67; Pulse 62; Resp 16; Pulse Ox 100% on R/A; jb4 05:00 BP 111 / 74; Pulse 64; Resp 16; Pulse Ox 100% on R/A; jb4 00:40 Body Mass Index 28.89 (86.18 kg, 172.72 cm) jb4 MDM: 01:26 Patient medically screened. imelda 01:54 Differential diagnosis: Nonspecific abd pain, gastritis, viral gastroenteritis, imelda gastroenteritis, bowel obstruction, cholecystitis, Cholelithiasis, diverticulitis, gastritis, gastroesophageal reflux disease, Hepatitis, non-specific abd pain, pancreatitis, Pyelonephritis, urinary tract infection. Data reviewed: vital signs, nurses notes, lab test result(s), radiologic studies, CT scan. Data interpreted: monitoring analyst: rate is 84 beats/min, rhythm is regular, Pulse oximetry: on room air is 100 %. Test interpretation: by ED physician or midlevel provider:. Counseling: I had a detailed discussion with the patient and/or guardian regarding: the historical points, exam findings, and any diagnostic results supporting the discharge/admit diagnosis, lab results, radiology results, the need for outpatient follow up. 04:46 ED course: improved, follow up , all labs discussed with the patient. [facility] 04/18 01:09 Order name: Basic Metabolic Panel; Complete Time: 02:39 [facility] 04/18 01:09 Order name: CBC with Diff; Complete Time: 02:39 [facility] 04/18 01:09 Order name: Hepatic Function; Complete Time: 02:39 [facility] 04/18 01:09 Order name: Lipase; Complete Time: 02:39 [facility] 04/18 03:00 Order name: Urine --Ancillary (enter results); Complete Time: 03:53 [facility] 04/18 03:00 Order name: Urine Dipstick--Ancillary (enter results); Complete Time: 03:53 [facility] 04/18 01:52 Order name: CT Abd/Pelvis - IV Contrast Only [facility] 04/18 01:09 Order name: IV Saline Lock; Complete Time: 01:24 [facility] 04/18 01:09 Order name: Labs collected and sent; Complete Time: 01:24 [facility] 04/18 01:25 Order name: Urine Dipstick-Ancillary (obtain specimen); Complete Time: 02:57 [facility] 04/18 01:52 Order name: Urine Test (obtain specimen); Complete Time: 02:57 [facility] Administered Medications: 01:46 Drug: NS 0.9% 1000 ml Route: IV; Rate: 1 bolus; Site: right antecubital; jb4 04:53 Follow up: IV Status: Completed infusion; IV Intake: 1000ml vc 01:46 Drug: Zofran (Ondansetron) 4 mg Route: IVP; Site: right antecubital; jb4 02:15 Follow up: Response: No adverse reaction; Nausea is decreased jb4 02:10 Drug: morphine 2 mg {Note: Rass score 0.} Route: IVP; Site: right antecubital; jb4 02:40 Follow up: Response: No adverse reaction; Pain is decreased; RASS: Alert and Calm (0) jb4 02:10 Drug: Pepcid 20 mg Route: IVP; Site: right antecubital; jb4 02:40 Follow up: Response: No adverse reaction 4 03:56 Drug: NS 0.9% 1000 ml Route: IV; Rate: 1 bolus; Site: right upper arm; jb4 04:53 Follow up: IV Status: Completed infusion; IV Intake: 1000ml vc 03:56 Drug: morphine 2 mg Route: IVP; Site: right upper arm; jb4 04:53 Follow up: Response: No adverse reaction vc 03:56 Drug: Zofran (Ondansetron) 4 mg Route: IVP; Site: right upper arm; jb4 04:53 Follow up: Response: No adverse reaction vc 04:51 Drug: Rocephin 1 grams Route: IV; Rate: per protocol; Site: right antecubital; vc 05:15 Follow up: Response: No adverse reaction; IV Status: Completed infusion jb4 Disposition: 04/18/20 04:44 Discharged to Home. Impression: Vomiting, Abdominal tenderness - enteritis, Elevated white blood cell count. - Condition is Stable. - Discharge Instructions: Abdominal Pain, Adult, Nausea and Vomiting, Adult, [id number], Abdominal Pain, Adult, [id number]. - Prescriptions for Bentyl 20 mg Oral Tablet - take 1 tablet by ORAL route every 6 hours As needed; 20 tablet. Pepcid 20 mg Oral Tablet - take 1 tablet by ORAL route every 12 hours for 10 days; 20 tablet. Zofran 4 mg Oral Tablet - take 1 tablet by ORAL route every 12 hours As needed; 20 tablet. Bactrim DS 800- 160 mg Oral Tablet - take 1 tablet by ORAL route every 12 hours for 5 days; 10 tablet. - Medication Reconciliation Form, Thank You Letter, Antibiotic Education, Prescription Opioid Use form. - Follow up: Private Physician; When: 2 - 3 days; Reason: Recheck today's complaints, Continuance of care, Re-evaluation by your physician. Follow up: Michoacano Felipe MD; When: 2 - 3 days; Reason: Recheck today's complaints, Re-evaluation by your physician. - Problem is new. - Symptoms have improved. Signatures: Dispatcher [employer] EDOle Lei MD MD cha Bryson, James, RN RN jb4 Marta Worthington RN RN vc Corrections: (The following items were deleted from the chart) 05:19 04:44 04/18/2020 04:44 Discharged to Home. Impression: Vomiting; Abdominal tenderness - jb4 enteritis; Elevated white blood cell count. Condition is Stable. Forms are Medication Reconciliation Form, Thank You Letter, Antibiotic Education, Prescription Opioid Use. Follow up: Private Physician; When: 2 - 3 days; Reason: Recheck today's complaints, Continuance of care, Re-evaluation by your physician. Follow up: Michoacano Felipe; When: 2 - 3 days; Reason: Recheck today's complaints, Re-evaluation by your physician. Problem is new. Symptoms have improved. imelda
[2020-04-18] MEDS ORDERED: CEFTRIAXONE/SWI 1gm 1 GM/10 ML SYR ONE (04:58)
--- NOTE | 2020-04-18 15:36 | RAD REPORT ---
EXAM DESCRIPTION: CT - Abdomen Pelvis W Contrast - 04/18/2020 5:06 am CLINICAL HISTORY: The patient is 35 years old and is Female; ABD PAIN TECHNIQUE: Axial computed tomography images of the abdomen and pelvis with intravenous contrast. S agittal and coronal reformatted images were created and reviewed. This CT exam was performed using one or more of the following dose reduction techniques: automated exposure control, adjustment of t he mA and/or kV according to patient size, and/or use of iterative reconstruction technique. COMPARISON: No relevant prior studies available. FINDINGS: LUNG BASES: Minimal dependent densities in the lung bases are present. ABDOMEN: LIVER: Unremarkable. No mass. GALLBLADDER AND BILE DUCTS: The gallbladder is not well distended. PANCREAS: No ductal dilation. No mass. SPLEEN: Unremarkable. ADRENALS: Unremarkable. No mass. KIDNEYS AND URETERS: Unremarkable. The kidneys enhance symmetrically. No obstructing renal or ur eteral calculus is seen. No hydronephrosis or hydroureter. No perinephric fluid or stranding. STOMACH AND BOWEL: The stomach is decompressed. A duodenal diverticulum is noted without surroun ding inflammation. Evidence of a focal area of thickening of the loop of small bowel in the left uppe r quadrant best appreciated on axial images 2932. The remainder the small bowel is normal in appearan ce. Stool is present throughout colon. There is no bowel obstruction. PELVIS: APPENDIX: The appendix is normal in caliber without surrounding inflammation. BLADDER: Unremarkable. No mass. REPRODUCTIVE: Unremarkable as visualized. ABDOMEN and PELVIS: INTRAPERITONEAL SPACE: Unremarkable. No free air. No significant fluid collection. BONES/JOINTS: No acute fracture. SOFT TISSUES: The soft tissues are normal. VASCULATURE: Unremarkable. No abdominal aortic aneurysm. LYMPH NODES: Unremarkable. No enlarged lymph nodes. IMPRESSION: 1. Nonspecific focal area of apparent small bowel thickening within the left upper anastasiia drant. Motion is at this level which may exaggerate this appearance. There is no associated obstructi on. If there is continued concern, follow-up examination on nonemergent basis with oral contrast to d istend the area could be performed. 2. Normal appendix. No bowel obstruction. No renal or ureteral calculi. Electronically signed by: Dayanara Philip MD 04/18/2020 3:53 AM CDT Due to temporary technical issues with the PACS/Fluency reporting system, reports are being signed by the in house radiologist without review as a courtesy to ensure prompt reporting. The interpreting r adiologist is fully responsible for the content of the report.
[2020-04-21 20:44] VITALS: TEMP 98.3
[2020-04-21 20:46] VITALS: O2SAT 100
[2020-04-21 20:48] VITALS: BP 111/74
== END 2020-04-18 05:19 | disposition home or self-care (01) ==
LOC: ER 00:18
DX: K52.9 Noninfective gastroenteritis and colitis, unspecified (principal); D72.829 Elevated white blood cell count, unspecified; R10.819 Abdominal tenderness, unspecified site; F31.9 Bipolar disorder, unspecified; F17.210 Nicotine dependence, cigarettes, uncomplicated; Z89.512 Acquired absence of left leg below knee; Z88.1 Allergy status to other antibiotic agents; Z88.8 Allergy status to other drugs, medicaments and biological substances
CPT/HCPCS: 36415; 74177; 80048; 80076; 81003; 81025; 83690; 85025; 99284; J0696; J2270; J2405; J7030; Q9967

== ENCOUNTER 2020-05-08 17:27 | Emergency (ER) | payer OTHER, SELFPAY ==
--- OUTSIDE RECORDS SUMMARY | 2020-05-08 17:28 | XMS REPORT | Clinical Summary ---
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
--- OUTSIDE RECORDS SUMMARY | 2020-05-08 17:28 | XMS REPORT | Clinical Summary ---
:1985 Author Organization [facility] Address [facility] [place] [address] Care Team Providers Name Role Phone Unavailable [...] 19 yrs) 05/21/2020 Results Not on fileafter 05/08/2019 Insurance Payer Benefit Plan / Subscriber ID Effective Phone Address T ype Group Dates HOMELESS TERESA HOMELESS TERESA 2015-Pres [phone] [id number] [place] [address] [facility] SELF-PAY SELF-PAY xxxxxxxxx 2017-Pres [phone] [place] [address]
--- OUTSIDE RECORDS SUMMARY | 2020-05-08 17:28 | XMS REPORT | Clinical Summary ---
:1985 Author Organization [facility] Address [address] [place] [address] Care Team Providers Name Role Phone Cathy [...] Not on file Results Not on fileafter 05/08/2019 Insurance Payer Benefit Plan / Group Subscriber ID Type Phone A ddress xxxxxxxxx Other Govt (, [place], [employer], etc.) Advance Directives For more information, please contact:[address] [phone] Code Status Date Activated Date Inactivated Comments Full Code 07/15/2017 10:38 PM 07/16/2017 5:00 PM This code status was determined by: Patient
--- OUTSIDE RECORDS SUMMARY | 2020-05-08 17:29 | XMS REPORT | Continuity of Care Document ---
:1985 Author Organization [facility] t Address [address] [place] [address] Care Team Providers Name Role Phone Freddy ARANGO Primary Care Physician Juliet Martinez Attending Clinician Doctor Unassigned, Name Attending Clinician Unavailable Concepcion DE LEON Attending Clinician Maribel Plasencia Attending Clinician BINTA FOLEY Attending Clinician Unavailable BINTA FOLEY Admitting Clinician Unavailable Problems Condition Condition Condition Status Onset Resolution Last Treating Co mments Source Name Details Category Date Date Treatment Clinician Date Chest pain Chest pain Disease Active 2016-[address] 09[facility]14 [facility]: [facility] 00 [place] Pelvic Pelvic Disease Active Krishnamurthy pain in pain in 04-08 Health female [...] Natural mother Coronary artery [facility] Natural brother Diabetes [place] [facility] Social History Social Habit Start Date Stop Date Quantity Comments Source History of tobacco Cigarette Smoker [facility] use Sex Assigned At [facility] alth Cigarettes smoked 2015-04-20 2015-04-20 [facility] current (pack per 00:00:00 00:00:00 day) - Reported Cigarette 2015-04-20 2015-04-20 [facility] pack-years 00:00:00 00:00:00 Alcohol intake 2015-04-20 2015-04-20 [facility] 00:00:00 00:00:00 of alcohol (finding) Alcohol Comment 2015-04-16 2015-04-16 last drink 02/2015 [facility] 00:00:00 00:00:00 Smoking Status Start Date Stop Date Source Never smoker Karlos colon Current every day smoker 2015-04-20 00:00:00 [facility] Iterable Medications Ordered Filled Start Stop Current Ordering [...] MG 22:01: mouth Medical tablet 26 nightly. Center ARIPiprazol 2016-08 Yes 15mg QD Take [address] [facility] (ABILIFY) 1-25 by mouth Luke s - 15 MG 22:01: nightly. Medical tablet 26 Center ibuprofen Yes Tooth 800mg Take 4 Anette is (MOTRIN) 8-31 infection tablets by Health 200 mg 00:00: mouth tablet 00 every [...] budesonide- Yes Unspecified 2{puff} Q.5D Inhale 2 Krsihnamurthy formoterol 8-27 chronic Puffs by He maxim (SYMBICORT) 00:00: bronchitis mouth 2 80-4.5 00 times mcg/actuati daily on inhaler Rinse mouth after each use.. Procedures This patient has no known procedures. Plan of Care Planned Activity Planned Date Details Comments Source Future Scheduled 2020-05-21 IMM Influenza [place] [facility] Test 00:00:00 Seasonal May to October (>/= 19 yrs) [code = IMM Influenza Seasonal May to October (>/= 19 yrs)] Future Scheduled 2020-04-21 INFLUENZA VACCINE [place] [facility] Test 00:00:00 [code = INFLUENZA VACCINE] Future Scheduled 2006 Screening for [facility] Test 00:00:00 malignant neoplasm of cervix (procedure) [code = 345484436] Future Scheduled 2006 Screening for [place] [facility] Test 00:00:00 malignant neoplasm of cervix (procedure) [code = 336355946] Encounters Start End Encounter Admission Attending Care Care Encounter Source Date/Time Date/Time Type Type Clinicians Facility Department ID 2020-04-29 2020-04-29 Emergency [facility] [id number] 10:44:00 14:30:00 Linn Smith [id number] [place] [id number] [place] [id number] 2020-04-29 2020-04-29 Orders Doctor CRUZ [id number] 00:00:00 00:00:00 Only Unassigned, LINDA [id number] [place] [id number] 2019-04-14 2019-04-14 Emergency Concepcion [facility] [id number] 17:25:25 17:58:00 Ad [place] [id number] [place] [id number] [place] [id number] 2019-03-18 2019-03-18 Emergency Vonda Allen [facility] [id number] 22:34:35 23:51:00 Maribel [place] [id number] [place] [id number] [place] [id number] 2017-04-09 2017-04-09 [facility] [id number] Krishnamurthy 00:00:00 00:00:00 Health 2017-04-09 2017-04-09 [facility] [id number] Krishnamurthy 00:00:00 00:00:00 [facility] 2017-04-08 2017-04-08 [facility] [id number] [place] 22:35:00 22:35:00 [facility] 2017-04-08 2017-04-08 [facility] [id number] Krishnamurthy 00:00:00 00:00:00 Health Results Test Description Test Time Test Comments Results Result Comments Source HEMOGLOBIN A1C 2017-07-16 13:26:00 Test Item Value Reference Range Interpretation Comme nts HEMOGLOBIN A1C (BEAKER) (test code = 368) 5.2 % 4.3-6.1 CBC W/PLT COUNT & AUTO [id number] 09:42:00 Test Item Value Reference Range Interpretation [...] MORPHOLOGY (BEAKER) (test code Normal = 762) [id number] 07:11:00 Test Item Value Reference Range Interpretation Comments MAGNESIUM (BEAKER) (test code = 1.5 mg/dL 1.6-2.6 L 627) BASIC METABOLIC [id number] 07:11:00 Test Item Value Reference Range Interpretation [...] NOT APPLICABLE FOR DIALYSIS PATIEN TS. LIPID [id number] 07:11:00 Test Item Value Reference Range Interpretation [...] Borderline 130-159 High 160-189 Very High >=190TROPONIN [id number] 06:34:00 Test Item Value Reference Range Interpretation Comments TROPONIN I (KRISTI) (test code = 397) < ng/mL 0.00-0.03 [...] acidosis, acute neurological disease, and persistent tachyarrhythmia.TROPONIN [id number] 23:58:00 Test Item Value Reference Range Interpretation Comments TROPONIN I (KRISTI) (test code = 397) < ng/mL 0.00-0.03 [...]
--- OUTSIDE RECORDS SUMMARY | 2020-05-08 17:29 | XMS REPORT | Summary of Care ---
:1985 Author Organization [facility] Address [address] [place] [address] Care Team Providers Name Role Phone Yo Martínez MD Primary Care Provider Encounter Details Date Type Department Care Team Description 04/29/2020 Orders Only [facility] Doctor Unassigned, No [address] [facility] [place] [address] [address] [place] [address] Allergies Active Allergy Reactions Severity Noted Date Comments Levofloxacin Other - See comments 05/29/2016 Gets se raoul joint pains. Bupropion Other - See comments 05/29/2016 Makes p atient feel "crazy" documented as of this encounter (statuses as of 04/29/2020) Medications Medication Sig Dispensed Refills Start Date [...] Take 1 capsule by 20 capsule 0 7 Active hen-Caff (FIORICET) mouth every 6 50-300-40 [...] 1 Bottle in 1 Each 0 09/30/2017 Act fady [id number]-[id number] each nostril 2 bottle (NEILMED SINUS (two) [...] tab every 4hr as 60 tablet 1 8 Active mg tabletIndications: needed for nausea Migraine [...] as of this encounter (statuses as of 04/29/2020) Active Problems Problem Noted Date Migraine without status migrainosus, not intractable, unspecified migraine 01/12/2018 type Gastroesophageal reflux disease, esophagitis presence not specified 01/12/2018 documented as of this encounter (statuses as of 04/29/2020) Social History Tobacco Use Types Packs/Day Years Used Date Current Every Day Smoker Cigarettes 1.5 Sta rted: 02/15/1992 Smokeless Tobacco: Never Used Alcohol Use Drinks/Week oz/Week Comments No 0 Standard drinks or equivalent 0.0 Sex Assigned at Date Recorded Not on file documented as of this encounter Last Filed Vital Signs Not on filedocumented in this encounter Plan of Treatment Health Maintenance Due Date Last Done Comments VARICELLA VACCINES (1 of 2 - 2-dose childhood series) 1986 PNEUMOCOCCAL 0-64 YEARS COMBINED SERIES (1 of 1 - 1991 PPSV23) Depression Screening 1997 DTaP,Tdap,and Td Vaccines (1 - Tdap) 2004 PAP SMEAR 2006 INFLUENZA VACCINE (#1) 2020 documented as of this encounter Procedures Procedure Name Priority Date/Time Associated Diagnosis Comme nts CONSENT/REFUSAL FOR Routine 04/29/2020 10:31 AM CDT DIAGNOSIS AND TREATMENT documented in this encounter Results Not on filedocumented in this encounter Insurance Payer Benefit Plan Subscriber ID Effective Phone Address Typ e / Group Dates [place] [id number] 2019-Pres [phone] P O DILEEP X Medicaid WOMEN WOMEN [address] [place] [address] documented as of this encounter Advance Directives Name Relationship Healthcare Agent Communication Relationship Katharina Abraham Mother Health Care Agent
--- OUTSIDE RECORDS SUMMARY | 2020-05-08 17:29 | XMS REPORT | Summary of Care ---
:1985 Author Organization [facility] Address [address] [place] [id number] Care Team Providers Name Role Phone Yo Martínez MD Primary Care Provider Reason for Referral Radiology Services (STAT) Status Reason Specialty Diagnoses / Referred By Referred To Procedures Contact Contact New Request Diagnostic Diagnoses Open leg wound, left, initial encounter Linn Stallings Radiology Procedures XR KNEE 3 VW LEFT R, EMNP [address] [id number] Reason for Visit Reason Comments Sore Throat Leg Pain Auth/Cert Status Reason Specialty Diagnoses / Referred By Referred To Procedures Contact Contact Emergency Medicine Diagnoses SORE THROAT;LEG PAIN [facility] [address] [place] [address] Fax: Encounter Details Date Type Department Care Team Description 04/29/2020 Emergency [facility]-Emergency Linn Stallings R, Open leg w ound, left, initial encounter (Primary Dx); Department EMNP Sore throat [address] [facility] [address] shrestha [address] [place] [address] [id number] [place] [address] [phone] Allergies Active Allergy Reactions Severity Noted Date [...] in 1 Each 0 09/30/2017 Act fady [id number] each nostril 2 bottle (NEILMED SINUS (two) [...] as side needed for Pain (scale 4-6). clindamycin 150 mg Take 3 capsules by 90 capsule 0 04/29/2020 Active capsuleIndications: mouth 3 (three) 0 Open leg wound, left, times daily for 10 initial encounter days. traMADoL 50 mg Take 1 tablet by 15 tablet 0 04/29/2020 Active tabletIndications: mouth every 6 acute pain (six) hours as needed for Pain (scale 7-10). Indications: acute pain documented as of this encounter (statuses as [...] Assigned at Date Recorded Not on file COVID-19 Exposure Response Date Recorded In the last month, have you been in contact with No / Unsure 04/29/2020 10:31 AM CDT someone who was confirmed or suspected to have Coronavirus / COVID-19? documented as of this encounter Last Filed Vital Signs Vital Sign Reading Time Taken Comments Blood Pressure 124/86 04/29/2020 2:15 PM CDT Pulse 59 04/29/2020 2:15 PM CDT Temperature 37.1 C (98.8 F) 04/29/2020 10:43 AM CDT Respiratory Rate 17 04/29/2020 2:15 PM CDT Oxygen Saturation 99% 04/29/2020 2:15 PM CDT Inhaled Oxygen Concentration - - Weight 86.2 kg (190 lb) 04/29/2020 10:43 AM CDT Height 172.7 cm (5' 8") 04/29/2020 10:43 AM CDT Body Mass Index 28.89 04/29/2020 10:43 AM CDT documented in this encounter Discharge Instructions Linn Kellogg EMNP - 04/29/2020NO LIFE-THREATENING FINDINGS ON TODAY'S EXAM. SPECIAL INSTRUCTIONS: 1. Keep clean and dry, clean with mild soap and water, no peroxide or betadine 2. Take all antibiotics 3. Follow up at [facility] for wound care FOLLOW-UP RECOMMENDATIONS: RECOMMEND FOLLOW-UP WITH A PRIMARY CARE PROVIDER OR SPECIALIST IN 2-5 DAYS, ESPECIALLY IF NO IMPROVEMENT IN SYMPTOMS. TO FOLLOW-UP WITHIN THE [facility], TRY THESE OPTIONS (CLINIC APPOINTMENTS AVAILABLE ON DXWH-KA-CHUP BASIS): 1. SCHEDULE AN APPOINTMENT ONLINE AT [facility] 2. OR CALL THE [facility] AT OR 3. OR CALL YOUR [facility] PHYSICIAN'S OFFICE DIRECTLY IF YOU ARE ALREADY AN ESTABLISHED [facility] PATIENT. OR, YOU MAY FOLLOW-UP WITH A PROVIDER OF YOUR CHOICE, SUCH : 1. A PHYSICIAN OF YOUR CHOICE 2. [facility], . LOCATIONS IN [facility] 3. [facility], [address], [place]; [phone] RETURN TO ER FOR WORSENING OF SYMPTOMS. AttachmentsThe following attachments cannot be sent through Care Everywhere.Sore Throat, When You Have a (Indian)Sore Throats, Self-Care for (Indian)Wound Infection, Recognizing and Treating (Indian)Wound Care, Discharge Instructions (Indian)Clindamycin capsules (Indian)documented in this encounter ED Notes Juliana Mobley RN - 04/29/2020 10:41 AM CDTSore throat, cough, body aches x2 days. No fever. Patient also wants an "open sore" to her "stump" evaluated. She was here for evaluation of sore a month ago but states it is getting worse. She thinks sore is from artificial leg. documented in this encounter Miscellaneous Notes ED Nurse Note - Juliana Mobley RN - 04/29/2020 2:28 PM CDTPT D/C home. GCS15, VS stable, no ataxia noted. Given two prescriptions and D/C paperwork. S/S decreased at this time. Pt ambulatory at time of discharge. Pt educated on wound care, med usage, follow up care, s/s worsening condition. Pt verbalized understanding. Work/school note was not given. documented in this encounter Plan of Treatment Name Type Priority Associated Diagnoses Date/Ti nd C-REACTIVE PROTEIN LAB STAT Open leg wound, left, 04/29/2020 11:30 AM CDT initial encounter SEDIMENTATION RATE LAB STAT Open leg wound, left, 04/29/2020 2:13 PM CDT initial encounter THROAT CULTURE LAB STAT Sore throat 04/29/2020 11 :11 AM CDT Name Type Priority Associated Diagnoses Order S chedule C-REACTIVE PROTEIN LAB STAT Open leg wound, left, STAT for 1 Occurrences initial encounter starting 0 04/29/2020 until 04/29/2020 SEDIMENTATION RATE LAB STAT Open leg wound, left, STAT for 1 Occurrences initial encounter starting 0 04/29/2020 until 04/29/2020 THROAT CULTURE LAB Routine Sore throat ONCE for 1 Oc currences starting 2019 until 04/29/2020 Health Maintenance Due Date Last Done Comments VARICELLA VACCINES (1 of 2 - 2-dose childhood series) 1986 PNEUMOCOCCAL 0-64 YEARS COMBINED SERIES (1 of 1 - 1991 PPSV23) Depression Screening 1997 DTaP,Tdap,and Td Vaccines (1 - Tdap) 2004 PAP SMEAR 2006 INFLUENZA VACCINE (#1) 2020 documented as of this encounter Procedures Procedure Name Priority Date/Time Associated Diagnosis Comme nts XR KNEE 3 VW LEFT STAT 04/29/2020 11:37 AM Open leg wound, Results for this CDT left, initial procedure are in encounter the results section. CBC WITH DIFF STAT 04/29/2020 11:30 AM Open leg wound, Resu lts for this CDT left, initial procedure are in encounter the results section. COMP. METABOLIC STAT 04/29/2020 11:30 AM Open leg wound, Re sults for this PANEL ([id number]) CDT left, initial procedure are in encounter the results section. POCT TEST PUSHPA 04/29/2020 11:24 AM Open leg wound , Results for this CDT left, initial procedure are in encounter the results section. RAPID STREP SCREEN STAT 04/29/2020 11:11 AM Sore throat Re sults for this FOR GROUP A CDT procedure are i n the results section. NOTICE OF PRIVACY Routine 04/29/2020 10:31 AM PRACTICES CDT documented in this encounter Results XR KNEE 3 VW LEFT (04/29/2020 11:37 AM CDT) Specimen Impressions Performed At PACS/VR/DOSE No radiographic evidence of osteomyeliti s. Preliminary Report Dictated by Resident: Hasan A Vivar I, Rajendrakumar Landa, MD., have reviewed this stud y and agree with the above report. Narrative Performed At XR KNEE 3 VW LEFT PACS/VR/DOSE HISTORY: 35 years-old Female; left BKA, wound on stump, rule out osteomyelitis COMPARISON: None FINDINGS: Radiographs of the left knee below knee amputation. There is an irregularly-shaped radiopacity in the left proximal ti bial metaphysis which also seen in prior CT left leg from 10/17 suggesting for radiopaque antibiotic/cement spacer. There is soft tissue swellin g near fibular neck without any evidence of adjacent bony er osion. Surgical clips at the amputation site visualized. Procedure Note [facility], Radiant Results Inft User - 2019 12:10 PM CDT XR KNEE 3 VW LEFT HISTORY: 35 years-old Female; left BKA, wound on stump, rule out osteomyelitis COMPARISON: None FINDINGS: Radiographs of the left knee below knee amputation. There is an irregularly-shaped radiopacity in the le ft proximal tibial metaphysis which also seen in prior CT left leg from 10/17 suggesting for radiopaque antibiotic/cement spacer. There is soft tissue swelling near fibular neck without any evidence of adjacent bony er osion. Surgical clips at the amputation site visualized. IMPRESSION No radiographic evidence of osteomyeliti s. Preliminary Report Dictated by Resident: Vik Vivar I, Yousuf Landa MD., have revie wed this study and agree with the above report. Performing Organization Address City/State/Zipcode Phone Number PACS/VR/DOSE COMP. METABOLIC PANEL ([id number]) (04/29/2020 11:30 AM CDT) Pathologist Sig nature NA 137 135 - 145 mmol/L [facility] K 4.7 3.5 - 5.0 mmol/L [facility] CL 103 98 - 108 mmol/L [facility] CO2 TOTAL 23 23 - 31 mmol/L [facility] AGAP 11 2 - 16 [facility] BUN 5 (L) 7 - 23 mg/dL [facility] GLUCOSE 93 70 - 110 mg/dL [facility] CREATININE 0.61 0.50 - 1.04 [facility] mg/dL H[facility]PITAL [facility] TOTAL BILI 0.3 0.1 - 1.1 mg/dL [facility] CALCIUM 9.9 8.6 - 10.6 mg/dL [facility] T PROTEIN 7.5 6.3 - 8.2 g/dL [facility] ALBUMIN 4.3 3.5 - 5.0 g/dL [facility] ALK PHOS 82 34 - 122 U/L [facility] ALTv 23 5 - 35 U/L [facility] AST(SGOT) 36 13 - 40 U/L [facility] eGFR Calculation 111.6 mL/min/1.73m2 [facility] (Non-) [facility] eGFR Calculation 135.3 mL/min/1.73m2 [facility] () [facility] Specimen Blood - VENOUS Narrative Performed At Association of Glomerular Filtration Rate (GFR) [facility] and Staging of Kidney Disease* + + +- + | GFR (mL/min/1.73 m2) | With Kidney Damage | Without Kidney Damage + + +- + | >90 | Stage one | Normal + + +- + | 60-89 | Stage two | Decreased GFR + + +- + | 30-59 | Stage three | Stage three + + +- + | 15-29 | Stage four | Stage four + + +- + | <15 (or dialysis) | Stage five | Stage five + + +- + *Each stage assumes the associated GFR level has been in effect for at least three months. Stages 1 to 5, with or without kidney disease, indicate chronic kidney disease. Notes: Determination of stages one and two (with eGFR >59mL/min/1.73 m2) requires estimation of kidney damage for at least three months as defined by structural or functional abnormalities of the kidney, manifested by either: Pathological abnormalities or Markers of kidney damage (including abnormalities in the composition of the blood or urine or abnormalities in imaging tests). Performing Organization Address City/State/Zipcode Phone Number [facility] CLIA: [id number] [place] [address] CBC WITH DIFF (04/29/2020 11:30 AM CDT) [facility] WBC 12.70 (H) 4.30 - 11.10 [facility] 10*3/L [facility] RBC 4.41 3.93 - 5.25 [facility] 10*6/L [facility] HGB 13.5 11.6 - 15.0 [facility] g/dL HOSPITAL [facility] HCT 40.8 35.7 - 45.2 % [facility] MCV 92.5 80.6 - 95.5 fL [facility] MCH 30.6 25.9 - 32.8 pg [facility] MCHC 33.1 31.6 - 35.1 [facility] g/dL [facility] RDW-SD 44.5 39.0 - 49.9 fL [facility] RDW-CV 13.1 12.0 - 15.5 % [facility] PLT 384 (H) 166 - 358 [facility] 10*3/L [facility]PITAL [facility] MPV 9.6 9.5 - 12.9 fL [facility] NRBC/100 WBC 0.0 0.0 - 10.0 /100 [facility] WBCs [facility] NRBC x10^3 <0.01 10*3/L [facility] GRAN MAT (NEUT) % 59.4 % [facility] IMM GRAN % 0.70 % [facility] LYMPH % 31.3 % [facility] MONO % 5.8 % [facility] EOS % 2.0 % [facility] BASO % 0.8 % [facility] GRAN MAT x10^3(ANC) 7.54 (H) 1.88 - 7.09 [facility] 10*3/uL [facility]ITAL [facility] IMM GRAN x10^3 0.09 (H) 0.00 - 0.06 [facility] 10*3/uL [facility] LYMPH x10^3 3.98 (H) 1.32 - 3.29 [facility] 10*3/uL [facility] MONO x10^3 0.74 0.33 - 0.92 [facility] 10*3/uL [facility]ITAL [facility] EOS x10^3 0.25 0.03 - 0.39 [facility] 10*3/uL [facility]ITAL [facility] BASO x10^3 0.10 (H) 0.01 - 0.07 [facility] 10*3/uL [facility]ITAL [facility] Specimen Blood - VENOUS Performing Organization Address City/State/Zipcode Phone Number [facility] CLIA: [id number] [place] [address] POCT TEST (04/29/2020 11:24 AM CDT) Pathologist Sig nature POCT PREG negative POCT PREG LOT # [id number] POCT PREG TEST DATE 03/20/2021 Specimen Urine - URINE, CLEAN CATCH RAPID STREP SCREEN FOR GROUP A (04/29/2020 11:11 AM CDT) Pathologist Sig nature Streptococcus pyogenes Negative Negative [facility] (group A) antigen [facility] Specimen Swab - THROAT Performing Organization Address City/State/Zipcode Phone Number [facility] CLIA: [id number] [place] [address] documented in this encounter Visit Diagnoses Diagnosis Open leg wound, left, initial encounter - Primary Sore throat Acute pharyngitis documented in this encounter Administered Medications Medication Order MAR Action Action Date Dose Rate Site ketorolac (TORADOL) injection 15 Given 04/29/2020 11:31 AM CDT 1 5 mg mg 15 mg, Slow IV Push, ONCE, 1 dose, Mon04/29/20 at 1215, [facility], service member approving Restricted medication: LINN STALLINGS traMADoL (ULTRAM) tablet 50 mg Given 04/29/2020 1:35 PM CDT 50 mg 50 mg, Oral, ONCE NOW, 1 dose, Mon04/29/20 at 1430, Routine documented in this encounter Advance Directives Name Relationship Healthcare Agent Communication Relationship Katharina Abraham Mother Health Care Agent
--- NOTE | 2020-05-08 19:13 | ER ---
Nurse's Notes [facility] Name: Natasha Spann Age: 35 yrs Sex: Female : 1985 Arrival Date: 05/08/2020 Time: 17:30 Bed 27 [facility] MD: Diagnosis: Tinea pedis Presentation: 05/08 17:32 Chief complaint: Patient states: right foot pain with redness underneath x 1 day. sv Coronavirus screen: Client denies travel out of the [place] in the last 14 days. At this time, the client does not indicate any symptoms associated with coronavirus-19. Ebola Screen: No symptoms or risks identified at this time. Risk Assessment: Do you want to hurt yourself or someone else? Patient reports no desire to harm self or others. Onset of symptoms was May 07, 2020. 17:32 Method Of Arrival: Ambulatory sv 17:32 Acuity: EMILY 3 sv 17:33 Initial Sepsis Screen: Does the patient meet any 2 criteria? No. Patient's initial sv sepsis screen is negative. Does the patient have a suspected source of infection? No. Patient's initial sepsis screen is negative. 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 - Social history:: Smoking status: unknown. Screenin:03 Abuse screen: Denies threats or abuse. Nutritional screening: No deficits noted. jd3 Tuberculosis screening: No symptoms or risk factors identified. Fall Risk Ambulatory Aid- None/Bed Rest/Nurse Assist (0 pts). Gait- Normal/Bed Rest/Wheelchair (0 pts) Mental Status- Oriented to own ability (0 pts). Total Steve Fall Scale indicates No Risk (0-24 pts). Assessment: 18:01 General: Appears in no apparent distress. uncomfortable, Behavior is calm, cooperative, jd3 appropriate for age. Pain: Complains of pain in ball of right foot Quality of pain is described as sharp, tender. Neuro: Level of Consciousness is awake, alert, obeys commands, Oriented to person, place, time, situation. Cardiovascular: Denies chest pain, Capillary refill < 3 seconds Patient's skin is warm and dry. Respiratory: Airway is patent Respiratory effort is even, unlabored, Respiratory pattern is regular, symmetrical, Denies cough, shortness of breath. GI: No signs and/or symptoms were reported involving the gastrointestinal system. : No signs and/or symptoms were reported regarding the genitourinary system. EENT: No signs and/or symptoms were reported regarding the EENT system. Derm: Skin is intact, Skin is dry, Skin is normal, Skin temperature is warm Wound noted ball of right foot Wound is whitened discoloration noted to the skin in color at the injury site, tender to the touch. Musculoskeletal: Circulation, motion, and sensation intact. Range of motion: intact in all extremities. 19:39 Reassessment: Patient appears in no apparent distress at this time. Patient and/or jd3 family updated on plan of care and expected duration. Pain level reassessed. Patient is alert, oriented x 3, equal unlabored respirations, skin warm/dry/pink. reported understanding of discharge instructions, even and steady gait upon discharge. Vital Signs: 17:33 BP 131 / 86; Pulse 84; Resp 20; Temp 98.3(TE); Pulse Ox 100% ; Weight 86.18 kg; Height sv 5 ft. 8 in. (172.72 cm); Pain 3/10; 17:33 Body Mass Index 28.89 (86.18 kg, 172.72 cm) sv ED Course: 17:30 Patient arrived in ED. as 17:32 Triage completed. sv 17:32 Arm band placed on. sv 17:35 Marley Mary FNP-C is PHCP. snw 17:35 Ad Alston MD is Attending Physician. snw 17:59 Blair Berkowitz RN is Primary Nurse. jd3 18:03 Patient has correct armband on for positive identification. Bed in low position. Call jd3 light in reach. Side rails up X 1. Pulse ox on. NIBP on. 19:39 No provider procedures requiring assistance completed. Patient did not have IV access jd3 during this emergency room visit. Administered Medications: No medications were administered Outcome: 19:12 Discharge ordered by . edward 19:39 Discharged to home ambulatory. jd3 19:39 Condition: stable 19:39 Discharge instructions given to patient, Instructed on discharge instructions, follow up and referral plans. medication usage, Demonstrated understanding of instructions, follow-up care, medications, Prescriptions given X 1. 19:40 Patient left the ED. jd3 Signatures: Merry Licea RN RN Marley Simmons, LUMBER LOADER-C LUMBER LOADER-Hailey Walters Jonathon, RN RN jd3 Corrections: (The following items were deleted from the chart) 17:35 17:33 Pulse 84bpm; Resp 20bpm; Pulse Ox 100%; Temp 98.3F Temporal; 86.18 kg; Height 5 sv ft. 8 in.; BMI: 28.8; Pain 3/10; sv 18:16 18:01 Derm: Skin is intact, Skin is dry, Skin is normal, Skin temperature is warm Wound jd3 noted ball of right foot Wound is whitened coloration of the skin in color, tender to the touch jd3
--- NOTE | 2020-05-08 19:13 | EDPHYS ---
Physician Documentation [facility] Name: Natasha Spann Age: 35 yrs Sex: Female : 1985 Arrival Date: 05/08/2020 Time: 17:30 Bed 27 Private MD: ED Physician Ad Alston HPI: 05/08 19:19 This 35 yrs old Female presents to ER via Ambulatory with complaints of Foot snw Pain. 19:19 The patient presents with a rash, erythematous. The complaints affect the. Onset: The snw symptoms/episode began/occurred acutely. Associated signs and symptoms: Pertinent positives: burning. Treatment prior to arrival includes: no previous treatment. The patient has not experienced similar symptoms in the past. It is unknown whether or not the patient has recently seen a physician. 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 - Social history:: Smoking status: unknown. ROS: 19:17 Constitutional: Negative for fever, chills, and weight loss, Eyes: Negative for injury, snw pain, redness, and discharge, ENT: Negative for injury, pain, and discharge, Neck: Negative for injury, pain, and swelling, Cardiovascular: Negative for chest pain, palpitations, and edema, Respiratory: Negative for shortness of breath, cough, wheezing, and pleuritic chest pain, Abdomen/GI: Negative for abdominal pain, nausea, vomiting, diarrhea, and constipation, Back: Negative for injury and pain, : Negative for injury, bleeding, discharge, and swelling, MS/Extremity: Negative for injury and deformity, Neuro: Negative for headache, weakness, numbness, tingling, and seizure, Psych: Negative for depression, anxiety, suicide ideation, homicidal ideation, and hallucinations. 19:17 Skin: Positive for rash, of the ball of right foot and in between 1st and 2nd toes. Exam: 19:14 Constitutional: This is a well developed, well nourished patient who is awake, alert, snw and in no acute distress. Head/Face: Normocephalic, atraumatic. Eyes: Pupils equal round and reactive to light, extra-ocular motions intact. Lids and lashes normal. Conjunctiva and sclera are non-icteric and not injected. Cornea within normal limits. Periorbital areas with no swelling, redness, or edema. ENT: Nares patent. No nasal discharge, no septal abnormalities noted. Tympanic membranes are normal and external auditory canals are clear. Oropharynx with no redness, swelling, or masses, exudates, or evidence of obstruction, uvula midline. Mucous membranes moist. Neck: Trachea midline, no thyromegaly or masses palpated, and no cervical lymphadenopathy. Supple, full range of motion without nuchal rigidity, or vertebral point tenderness. No Meningismus. Chest/axilla: Normal chest wall appearance and motion. Nontender with no deformity. No lesions are appreciated. Cardiovascular: Regular rate and rhythm with a normal S1 and S2. No gallops, murmurs, or rubs. Normal PMI, no JVD. No pulse deficits. Respiratory: Lungs have equal breath sounds bilaterally, clear to auscultation and percussion. No rales, rhonchi or wheezes noted. No increased work of breathing, no retractions or nasal flaring. Abdomen/GI: Soft, non-tender, with normal bowel sounds. No distension or tympany. No guarding or rebound. No evidence of tenderness throughout. Back: No spinal tenderness. No costovertebral tenderness. Full range of motion. MS/ Extremity: Pulses equal, no cyanosis. Neurovascular intact. Full, normal range of motion. Neuro: Awake and alert, GCS 15, oriented to person, place, time, and situation. Cranial nerves II-XII grossly intact. Motor strength 5/5 in all extremities. Sensory grossly intact. Cerebellar exam normal. Normal gait. Psych: Awake, alert, with orientation to person, place and time. Behavior, mood, and affect are within normal limits. 19:14 Skin: Appearance: normal except for affected area, Tinea pedis, on the ball of right foot and in between 1st and 2nd toes. Vital Signs: 17:33 BP 131 / 86; Pulse 84; Resp 20; Temp 98.3(TE); Pulse Ox 100% ; Weight 86.18 kg; Height sv 5 ft. 8 in. (172.72 cm); Pain 3/10; 17:33 Body Mass Index 28.89 (86.18 kg, 172.72 cm) sv MDM: 17:36 Patient medically screened. snw 19:17 Data reviewed: vital signs, nurses notes. Data interpreted: Pulse oximetry: on room air snw is 100 %. Interpretation: normal. Counseling: I had a detailed discussion with the patient and/or guardian regarding: the historical points, exam findings, and any diagnostic results supporting the discharge/admit diagnosis, the need for outpatient follow up, to return to the emergency department if symptoms worsen or persist or if there are any questions or concerns that arise at home. Special discussion: Based on the history and exam findings, there is no indication for further emergent testing or inpatient evaluation. I discussed with the patient/guardian the need to see the cottrell operator for further evaluation of the symptoms. I discussed with the patient/guardian the need to see the primary care provider for further evaluation of the symptoms. Administered Medications: No medications were administered Disposition: 05/09 07:06 Co-signature as Attending Physician, Ad Alston MD I agree with the assessment and kdr plan of care. Disposition: 05/08/20 19:12 Discharged to Home. Impression: Tinea pedis. - Condition is Stable. - Discharge Instructions: Athlete's Foot. - Prescriptions for Lotrisone 1- 0.05 % Topical cream - apply 1 application by TOPICAL route once daily; 15 gram. - Medication Reconciliation Form, Thank You Letter, Antibiotic Education, Prescription Opioid Use form. - Follow up: Emergency Department; When: As needed; Reason: Worsening of condition. Follow up: Private Physician; When: 2 - 3 days; Reason: Recheck today's complaints, Continuance of care, Re-evaluation by your physician. Signatures: Merry Licea RN RN sv Rittger, Kevin, MD MD kdr Waters, Shelly, SHEEP RANCHER-C SHEEP RANCHER-Csnw Blair Berkowitz RN RN jd3 Corrections: (The following items were deleted from the chart) 05/08 19:40 19:12 05/08/2020 19:12 Discharged to Home. Impression: Tinea pedis. Condition is jd3 Stable. Forms are Medication Reconciliation Form, Thank You Letter, Antibiotic Education, Prescription Opioid Use. Follow up: Emergency Department; When: As needed; Reason: Worsening of condition. Follow up: Private Physician; When: 2 - 3 days; Reason: Recheck today's complaints, Continuance of care, Re-evaluation by your physician. edward
[2020-05-08 21:31] VITALS: BP 131/86; TEMP 98.3; O2SAT 100
== END 2020-05-08 19:40 | disposition home or self-care (01) ==
LOC: ER 17:27
DX: B35.3 Tinea pedis (principal); Z89.512 Acquired absence of left leg below knee; Z88.8 Allergy status to other drugs, medicaments and biological substances; Z91.018 Allergy to other foods
CPT/HCPCS: 99283

== ENCOUNTER 2020-05-11 23:05 | Emergency (ER) | payer OTHER, SELFPAY ==
--- OUTSIDE RECORDS SUMMARY | 2020-05-11 23:07 | XMS REPORT | Clinical Summary ---
:1985 Author Organization [facility] Address [address] [place] [id number] Care Team Providers Name Role Phone Kit Hayes PA-C Primary Care Provider Allergies Active Allergy Reactions Severity Noted Date Comments Levofloxacin 04/09/2017 Bupropion Hcl 04/09/2017 Medications Not on file Active Problems Not on file Social History Tobacco Use Types Packs/Day Years Used Date Never Smoker Alcohol Use Drinks/Week oz/Week Comments No Sex Assigned at Date Recorded Not on file Last Filed Vital Signs Not on file Plan of Treatment Health Maintenance Due Date Last Done Comments CERVICAL CANCER SCREENING 2006 INFLUENZA VACCINE 04/21/2020 Results Not on fileafter 05/11/2019 Advance Directives For more information, please contact: [phone] Type Date Recorded 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
--- OUTSIDE RECORDS SUMMARY | 2020-05-11 23:07 | XMS REPORT | Clinical Summary ---
:1985 Author Organization [facility] Address [facility] [place] [address] Care Team Providers Name Role Phone Unavailable [...] 19 yrs) 05/21/2020 Results Not on fileafter 05/11/2019 Insurance Payer Benefit Plan / Subscriber ID Effective Phone Address T ype Group Dates HOMELESS TERESA HOMELESS TERESA 2015-Pres [phone] [place] [address] [facility] SELF-PAY SELF-PAY xxxxxxxxx 2017-Pres [phone] [place] [address]
--- OUTSIDE RECORDS SUMMARY | 2020-05-11 23:07 | XMS REPORT | Clinical Summary ---
:1985 Author Organization [facility] Address [address] [place] [address] Care Team Providers Name Role Phone Cathy [...] Not on file Results Not on fileafter 05/11/2019 Insurance Payer Benefit Plan / Group Subscriber ID Type Phone A ddress xxxxxxxxx Other Govt (, [place], [place]P, etc.) Advance Directives For more information, please contact:[address] [phone] Code Status Date Activated Date Inactivated Comments Full Code 07/15/2017 10:38 PM 07/16/2017 5:00 PM This code status was determined by: Patient
--- OUTSIDE RECORDS SUMMARY | 2020-05-11 23:08 | XMS REPORT | Continuity of Care Document ---
:1985 Author Organization [facility] t Address [address] [place] [address] Care Team Providers Name Role Phone Freddy [...] [facility]: Medical 00 [place] Pelvic Pelvic Disease Active Krishnamurthy pain in [...] Date Stop Date Source Natural brother Diabetes Raghu He alth Maternal aunt Coronary artery [facility] Maternal grandmother Coronary artery [facility] Natural mother Coronary artery [facility] Social History Social Habit Start Date Stop Date Quantity Comments Source History of tobacco Cigarette Smoker [facility] use Sex Assigned At [facility] Cigarettes smoked 2017-07-16 2017-07-16 [facility] - current (pack per 00:00:00 00:00:00 Medical Center day) - Reported Cigarette 2015-04-20 2015-04-[address] [facility] pack-years 00:00:00 00:00:00 Alcohol intake 2015-04-20 2015-04-20 Current drinker Catherine garcia Spare to Share 00:00:00 00:00:00 of alcohol (finding) Alcohol Comment 2015-04-16 2015-04-16 last drink 02/2015 [facility] 00:00:00 00:00:00 Smoking Status Start Date Stop Date Source Current every day smoker 2017-07-16 00:00:[address] [facility] Never smoker Karlos colon Medications Ordered Filled Start Stop Current Ordering [...] MG 22:01: mouth Medical tablet 26 nightly. [place] ARIPiprazol 2016-08 Yes 15mg QD Take [address] [facility] (ABILIFY) 1-25 by mouth Luke s - 15 MG 22:01: nightly. Medical tablet 26 Center ibuprofen Yes Tooth 800mg Take 4 Anette is (MOTRIN) - infection tablets by Health 200 mg 00:00: mouth tablet 00 every 6 hours as needed for Pain. ARIPIPRAZOL Yes Take by Benjamín ris E (ABILIFY 04-16 mouth. Health OR) 13:48: 28 DULOXETINE Yes Take by Anette is HCL 8-27 mouth. Health (CYMBALTA 13:48: OR) 28 TOPIRAMATE Yes Take by Anette davis (TOPAMAX 8-27 mouth. Health OR) 13:48: 28 TRAZODONE 2014-0 Yes Take by Catherine garcia HCL 8-27 mouth. Health (TRAZODONE 13:48: OR) 28 PROPRANOLOL Yes Take by Benjamín ris HCL 8-27 mouth. Health (PROPRANOLO 13:48: L OR) 28 HYDROXYZINE Yes Take by Benjamín ris HCL OR 8-27 mouth. Health 13:48: 28 budesonide- Yes Unspecified 2{puff} Q.5D Inhale 2 Krishnamurthy formoterol 8- chronic Puffs by Jay pan (SYMBICORT) 00:00: bronchitis mouth 2 80-4.5 00 times mcg/actuati daily on inhaler Rinse mouth after each use.. Procedures This patient has no known procedures. Plan of Care Planned Activity Planned Date Details Comments Source Future Scheduled 2020-05-21 IMM Influenza [facility] Test 00:00:00 Seasonal May to October (>/= 19 yrs) [code = IMM Influenza Seasonal May to October (>/= 19 yrs)] Future Scheduled 2020-04-21 INFLUENZA VACCINE [place] [facility] 00:00:00 [code = INFLUENZA VACCINE] Future Scheduled 2006 Screening for [facility] Test 00:00:00 malignant neoplasm of cervix (procedure) [code = 790390732] Future Scheduled 2006 Screening for [place] [facility] Test 00:00:00 malignant neoplasm of cervix (procedure) [code = 278483227] Encounters Start End Encounter Admission Attending Care Care Encounter Source Date/Time Date/Time Type Type Clinicians Facility Department ID 2020-04-29 2020-04-29 Emergency [facility] [id number] 10:44:00 14:30:00 Linn Smith [id number] [place] [id number] [place] [id number] 2020-04-29 2020-04-29 Orders Doctor CRUZ [id number] 00:00:00 00:00:00 Only Unassigned, LINDA [id number] [place] [facility] [id number] 2019-04-14 2019-04-14 Emergency Concepcion [facility] [id number] 17:25:25 17:58:00 Ad Smith [id number] [place] [id number] [place] [id number] 2019-03-18 2019-03-18 Emergency Vonda Allen [facility] [id number] 22:34:35 23:51:00 Maribel Smith [id number] [place] [id number] [place] [id number] 2017-04-09 2017-04-09 Emergency [facility] [id number] Krishnamurthy 00:00:00 00:00:00 Health 2017-04-09 2017-04-09 Emergency [facility] [id number] [place] 00:00:00 00:00:00 [facility] 2017-04-08 2017-04-08 Emergency [facility] [id number] [place] 22:35:00 22:35:00 Health 2017-04-08 2017-04-08 Emergency [facility] [id number] [place] 00:00:00 00:00:00 Health Results Test Description Test Time Test Comments Results Result Comments Source HEMOGLOBIN A1C 2017-07-16 13:26:00 Test Item Value Reference Range Interpretation Comme nts HEMOGLOBIN A1C (BEAKER) (test code = 368) 5.2 % 4.3-6.1 CBC W/PLT COUNT & AUTO [id number] 09:42:00 Test Item Value Reference Range Interpretation [...] MORPHOLOGY (BEAKER) (test code Normal = 762) [id number] 07:11:00 Test Item Value Reference Range Interpretation Comments MAGNESIUM (BEAKER) (test code = 1.5 mg/dL 1.6-2.6 L 627) BASIC METABOLIC [id number] 07:11:00 Test Item Value Reference Range Interpretation [...] NOT APPLICABLE FOR DIALYSIS PATIEN TS. LIPID [id number] 07:11:00 Test Item Value Reference Range Interpretation [...] Borderline 130-159 High 160-189 Very High >=190TROPONIN [id number] 06:34:00 Test Item Value Reference Range Interpretation [...] acidosis, acute neurological disease, and persistent tachyarrhythmia.TROPONIN [id number] 23:58:00 Test Item Value Reference Range Interpretation [...]
--- NOTE | 2020-05-11 23:45 | ER ---
Nurse's Notes [facility] Name: Natasha Spann Age: 35 yrs Sex: Female : 1985 Arrival Date: 05/11/2020 Time: 23:06 Bed 6 Private MD: Diagnosis: Cellulitis of left lower limb Presentation: 05/11 23:13 Chief complaint: Patient states: she noticed rash on her left stump tonight which bb bansal. Coronavirus screen: At this time, the client does not indicate any symptoms associated with coronavirus-19. Ebola Screen: No symptoms or risks identified at this time. Initial Sepsis Screen: Does the patient meet any 2 criteria? No. Patient's initial sepsis screen is negative. Does the patient have a suspected source of infection? No. Patient's initial sepsis screen is negative. Risk Assessment: Do you want to hurt yourself or someone else? Patient reports no desire to harm self or others. Onset of symptoms was May 11, 2020. 23:13 Method Of Arrival: Ambulatory bb 23:13 Acuity: EMILY 4 bb Triage Assessment: 23:16 General: Appears in no apparent distress. Behavior is calm, cooperative. Pain: bb Complains of pain in left leg Pain currently is 6 out of 10 on a pain scale. Neuro: Level of Consciousness is awake, alert, obeys commands, Oriented to person, place, time, situation. Cardiovascular: No deficits noted. Respiratory: Respiratory effort is even, unlabored, Respiratory pattern is regular. GI: No signs and/or symptoms were reported involving the gastrointestinal system. Derm: Reports burning, and rash to left leg. Musculoskeletal: Amputation of left leg. 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 - Social history:: Smoking status: Patient reports the use of cigarette tobacco products, smokes one pack cigarettes per day. Patient/guardian denies using alcohol, street drugs. Screenin:45 Abuse screen: Denies threats or abuse. Denies injuries from another. Nutritional mg2 screening: No deficits noted. Tuberculosis screening: No symptoms or risk factors identified. Fall Risk Gait- Impaired (20 pts.). Assessment: 23:44 General: Appears in no apparent distress. comfortable, Behavior is calm, cooperative. mg2 Pain: Denies pain. Neuro: Level of Consciousness is awake, alert, obeys commands, Oriented to person, place, time, situation. Cardiovascular: Capillary refill < 3 seconds Patient's skin is warm and dry. Respiratory: Airway is patent Respiratory effort is even, unlabored, Respiratory pattern is regular, symmetrical. GI: No signs and/or symptoms were reported involving the gastrointestinal system. : No signs and/or symptoms were reported regarding the genitourinary system. EENT: No signs and/or symptoms were reported regarding the EENT system. Derm: Rash noted that is itchy, urticaria, on left leg. Musculoskeletal: Amputation of left leg. Circulation, motion, and sensation intact. Capillary refill < 3 seconds. Vital Signs: 23:13 BP 136 / 98; Pulse 83; Resp 16 S; Temp 98.5(O); Pulse Ox 100% on R/A; Weight 90.72 kg bb (R); Height 5 ft. 8 in. (172.72 cm) (R); Pain 6/10; 23:13 Body Mass Index 30.41 (90.72 kg, 172.72 cm) bb ED Course: 23:06 Patient arrived in ED. cl3 23:15 Triage completed. bb 23:16 Arm band placed on Patient placed in an exam room, on a stretcher, on pulse oximetry. bb 23:37 Wili Coffman MD is Attending Physician. tw4 23:43 Ayaz Cast, JONY is Primary Nurse. mg2 23:45 No provider procedures requiring assistance completed. Patient did not have IV access mg2 during this emergency room visit. 23:54 Patient has correct armband on for positive identification. mg2 Administered Medications: No medications were administered Outcome: 23:44 Discharge ordered by . victorina 23:54 Discharged to home via wheelchair. mg2 23:54 Condition: good 23:54 Discharge instructions given to patient, Instructed on discharge instructions, follow up and referral plans. medication usage, Demonstrated understanding of instructions, follow-up care, medications, Prescriptions given X 2. 23:54 Patient left the ED. mg2 Signatures: Humera Siddiqui RN RN bb Wili Coffman MD MD tw4 Ayaz Cast RN RN mg2 Ralf Paez 3
[2020-05-12 00:04] VITALS: BP 136/98; TEMP 98.5; O2SAT 100
--- NOTE | 2020-05-12 23:56 | EDPHYS ---
Physician Documentation [facility] Name: Natasha Spann Age: 35 yrs Sex: Female : 1985 Arrival Date: 05/11/2020 Time: 23:06 Bed 6 Private MD: ED Physician Wili Coffman HPI: 05/12 06:26 This 35 yrs old Female presents to ER via Ambulatory with complaints of Rash tw4 On Leg. 06:26 The patient's rash thought to be caused by an unknown cause. The rash is located on the tw4 left knee. The rash can be described as papular, raised. Onset: The symptoms/episode began/occurred yesterday. Associated signs and symptoms: Pertinent positives: None. Pertinent negatives: None. The patient has not experienced similar symptoms in the past. 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 - Social history:: Smoking status: Patient reports the use of cigarette tobacco products, smokes one pack cigarettes per day. Patient/guardian denies using alcohol, street drugs. ROS: 05/12 06:26 Constitutional: Negative for fever, chills, and weight loss, Eyes: Negative for injury, tw4 pain, redness, and discharge, Cardiovascular: Negative for chest pain, palpitations, and edema, Respiratory: Negative for shortness of breath, cough, wheezing, and pleuritic chest pain, Abdomen/GI: Negative for abdominal pain, nausea, vomiting, diarrhea, and constipation, Back: Negative for injury and pain. Skin: Positive for erythema, rash. Exam: 06:26 Constitutional: This is a well developed, well nourished patient who is awake, alert, tw4 and in no acute distress. Head/Face: Normocephalic, atraumatic. Chest/axilla: Normal chest wall appearance and motion. Nontender with no deformity. No lesions are appreciated. Cardiovascular: Regular rate and rhythm with a normal S1 and S2. No gallops, murmurs, or rubs. Normal PMI, no JVD. No pulse deficits. Respiratory: Lungs have equal breath sounds bilaterally, clear to auscultation and percussion. No rales, rhonchi or wheezes noted. No increased work of breathing, no retractions or nasal flaring. Abdomen/GI: Soft, non-tender, with normal bowel sounds. No distension or tympany. No guarding or rebound. No evidence of tenderness throughout. Back: No spinal tenderness. No costovertebral tenderness. Full range of motion. 06:26 Skin: cellulitis, that is mild, on the left knee. Vital Signs: 05/11 23:13 BP 136 / 98; Pulse 83; Resp 16 S; Temp 98.5(O); Pulse Ox 100% on R/A; Weight 90.72 kg bb (R); Height 5 ft. 8 in. (172.72 cm) (R); Pain 6/10; 23:13 Body Mass Index 30.41 (90.72 kg, 172.72 cm) bb MDM: 23:37 Patient medically screened. tw4 05/12 06:29 Differential diagnosis: impetigo, varicella. Data reviewed: vital signs, nurses notes. tw4 Data interpreted: Pulse oximetry: Interpretation: normal. Counseling: I had a detailed discussion with the patient and/or guardian regarding: the historical points, exam findings, and any diagnostic results supporting the discharge/admit diagnosis. Special discussion: I discussed with the patient/guardian in detail that at this point there is no indication for admission to the hospital. It is understood, however, that if the symptoms persist or worsen the patient needs to return immediately for re-evaluation. Administered Medications: No medications were administered Disposition: 05/11/20 23:44 Discharged to Home. Impression: Cellulitis of left lower limb. - Condition is Stable. - Discharge Instructions: Cellulitis, Adult. - Prescriptions for Bactroban 2 % Topical Ointment - Apply to affected area 1 application by TOPICAL route every 12 hours; 15 gram. Cleocin 300 mg Oral Capsule - take 1 capsule by ORAL route every 6 hours for 10 days; 40 capsule. - Medication Reconciliation Form, Thank You Letter, Antibiotic Education, Prescription Opioid Use form. - Follow up: Private Physician; When: Upon discharge from the Emergency Department; Reason: Recheck today's complaints, Continuance of care, Re-evaluation by your physician. - Problem is new. - Symptoms have improved. Signatures: Humera Siddiqui RN RN bb Wili Coffman MD MD tw4 Ayaz Cast RN RN mg2 Corrections: (The following items were deleted from the chart) 05/11 23:54 23:44 05/11/2020 23:44 Discharged to Home. Impression: Cellulitis of left lower limb. mg2 Condition is Stable. Forms are Medication Reconciliation Form, Thank You Letter, Antibiotic Education, Prescription Opioid Use. Follow up: Private Physician; When: Upon discharge from the Emergency Department; Reason: Recheck today's complaints, Continuance of care, Re-evaluation by your physician. Problem is new. Symptoms have improved. tw4
== END 2020-05-11 23:54 | disposition home or self-care (01) ==
LOC: ER 23:05
DX: L03.116 Cellulitis of left lower limb (principal); Z88.8 Allergy status to other drugs, medicaments and biological substances; F41.8 Other specified anxiety disorders
CPT/HCPCS: 99283

== ENCOUNTER 2020-10-07 14:16 | Emergency (ER) | payer OTHER, SELFPAY ==
--- NOTE | 2020-10-07 17:56 | RAD REPORT ---
EXAM DESCRIPTION: RAD - Femur Left - 10/07/2020 5:42 pm CLINICAL HISTORY: PAIN, slip and fall, bruising to the soft tissues near the amputation site COMPARISON: Left leg March 2020 FINDINGS: No fracture is identified. Focal lucent areas in the proximal femur lesser trochanter lev el and proximal shaft appear to be areas from prior hardware placement and fracture repair. The lesser trochanter level finding is definitively man made. The one in the proximal shaft is probab ly man made or post trauma remodeling as well. There are some endosteal changes at this proximal shaf t level. No periosteal reaction. More distally the shaft and femoral condyle show no acute finding. N o acute patella finding. No erosive or destructive changes at the below-knee amputation sites. Surgical hardware bony defects are present. The findings are not clearly different from the March 2020 study. Soft tissues overlyin g the amputation show no air or foreign body. Soft tissues do appear slightly edematous compared to t he prior examination. IMPRESSION: Soft tissue swelling at the amputation site is identified with no air or foreign body. No erosive or destructive changes at the amputation site. Proximal femur findings, although lacking comparison, are believed to be the affects of surgical hard campos and remodeling from prior bony injury.
--- NOTE | 2020-10-07 18:19 | RAD REPORT ---
EXAM DESCRIPTION: US - Extremity Venous Uni Ltd - 10/07/2020 6:04 pm CLINICAL HISTORY: Pain;Swelling COMPARISON: None. TECHNIQUE: Real-time sonographic evaluation of the left lower extremity deep venous system was perfo rmed. FINDINGS: Normal compressibility, flow augmentation, phasic flow and spontaneous flow are identified in the left lower extremity common femoral, superficial femoral, and popliteal veins. No intralumina l filling defects seen. IMPRESSION: No DVT in the left lower extremity.
--- NOTE | 2020-10-07 18:57 | EDPHYS ---
Physician Documentation [facility] Name: Natasha Spann Age: 35 yrs Sex: Female : 1985 Arrival Date: 10/07/2020 Time: 14:19 Bed 18 Private MD: ED Physician Guera Mccarty HPI: 10/07 17:20 This 35 yrs old Female presents to ER via Ambulatory with complaints of Leg cp Pain, Leg Swelling. 17:20 The patient presents with pain, that is acute, swelling, tenderness. The complaints cp affect the left lower extremity at amputation site. Context: resulted from the patient falling, onto left knee, the patient is able to ambulate, with mild difficulty, with use of prosthetic, Patient has left lower extremity below the knee amputation. 17:20 Onset: The symptoms/episode began/occurred 2 day(s) ago. cp Historical: - Allergies: 14:25 Wellbutrin; ll1 14:25 Levofloxacin; ll1 14:25 bupropion HCl; ll1 - PMHx: 14:25 ADD/ADHD; Anxiety; Bipolar disorder; Depression; Endometrosis; Gastric Reflux; MRSA; ll1 osteomylitis; Ovarian cyst; UTI; - PSHx: 14:25 Below the knee amputation left leg; ll1 - Immunization history:: Flu vaccine is not up to date. - Social history:: Smoking status: Patient reports the use of cigarette tobacco products, smokes one-half pack cigarettes per day, Patient uses. ROS: 17:30 MS/extremity: Positive for pain, swelling, tenderness, of the left lower extremity, cp left below the knee amputation, Negative for paresthesias. 17:30 Constitutional: Negative for fever, poor PO intake. cp 17:30 Respiratory: Negative for cough, shortness of breath, wheezing. 17:30 Abdomen/GI: Negative for abdominal pain, nausea, vomiting, and diarrhea. 17:30 All other systems are negative. Exam: 17:35 Constitutional: The patient appears in no acute distress, alert, awake, non-toxic, well cp developed, well nourished. 17:35 Head/Face: Normocephalic, atraumatic. cp 17:35 Neck: ROM/movement: is normal, is supple, without pain, no range of motions limitations. 17:35 Chest/axilla: Inspection: normal. 17:35 Cardiovascular: Rate: normal. 17:35 Respiratory: the patient does not display signs of respiratory distress, Respirations: normal, no use of accessory muscles, no retractions. 17:35 Musculoskeletal/extremity: Extremities: grossly normal except: noted in the amputation site of left lower extremity: pain, swelling, tenderness, Perfusion: the extremity is normally perfused throughout. 17:35 Skin: skin appears intact with no open wounds noted at amputation site of left lower extremity. Vital Signs: 14:25 BP 128 / 86; Pulse 80; Resp 17; Temp 97.9; Pulse Ox 98% ; Weight 89.36 kg; Height 5 ft. ll1 8 in. (172.72 cm); Pain 8/10; 18:54 BP 122 / 78; Pulse 75; Resp 18; Temp 97.5; Pulse Ox 99% on R/A; ph 14:25 Body Mass Index 29.95 (89.36 kg, 172.72 cm) ll1 MDM: 17:16 Patient medically screened. cp 18:00 Differential diagnosis: open fracture, closed fracture, contusion, DVT, laceration. cp 18:55 Data reviewed: vital signs, nurses notes, radiologic studies, plain films, ultrasound. cp 18:55 Counseling: I had a detailed discussion with the patient and/or guardian regarding: the cp historical points, exam findings, and any diagnostic results supporting the discharge/admit diagnosis, radiology results, to return to the emergency department if symptoms worsen or persist or if there are any questions or concerns that arise at home. Response to treatment: the patient's symptoms have markedly improved after treatment, and as a result, I will discharge patient. ED course: VSS. Xrays negative for acute fracture and US negative for DVT. Pain improved with meds. Will discharge to home for continued monitoring. 10/07 17:17 Order name: XRAY Femur LEFT cp 10/07 17:17 Order name: US Extremity Venous Unilateral Ltd cp 10/07 17:17 Order name: XRAY Knee LEFT 3 view cp Administered Medications: 18:54 Drug: Elberta (7.5 mg-325 mg) 1 tabs Route: PO; ph 19:23 Follow up: Response: No adverse reaction; Marked relief of symptoms; RASS: Alert and jl7 Calm (0) Disposition: 19:25 Chart complete. cp Disposition: 10/07/20 18:57 Discharged to Home. Impression: Pain in left leg. - Condition is Stable. - Discharge Instructions: Musculoskeletal Pain. - Prescriptions for Tylenol- Codeine #3 300-30 mg Oral Tablet - take 2 tablets by ORAL route every 8 hours As needed; 12 tablet. Diclofenac Sodium 75 mg Oral Tablet Sustained Release - take 1 tablet by ORAL route 2 times per day; 30 tablet. - Medication Reconciliation Form, Thank You Letter, Antibiotic Education, Prescription Opioid Use form. - Follow up: Private Physician; When: 2 - 3 days; Reason: Recheck today's complaints. - Problem is new. - Symptoms have improved. Addendum: 10/30/2020 02:09 Co-signature as Attending Physician, Guera Mccarty MD I agree with the assessment m a2 and plan of care. Signatures: Dispatcher [employer] Sylvia Dewey RN RN ph Sravani, CATIE Handy PA cp Steffany Colvin RN RN jl7 Guera Mccarty MD MD ma2 Shen Paez RN RN ll1 Corrections: (The following items were deleted from the chart) 10/07 19:23 18:57 10/07/2020 18:57 Discharged to Home. Impression: Pain in left leg. Condition is jl7 Stable. Forms are Medication Reconciliation Form, Thank You Letter, Antibiotic Education, Prescription Opioid Use. Follow up: Private Physician; When: 2 - 3 days; Reason: Recheck today's complaints. Problem is new. Symptoms have improved. cp 10/08 18:35 10/07 17:20 Context: resulted from an unknown cause, the patient is able to ambulate, cp with mild difficulty, with use of prosthetic, Patient has left lower extremity below the knee amputation, cp
--- NOTE | 2020-10-07 18:57 | ER ---
Nurse's Notes [facility] Name: Natasha Spann Age: 35 yrs Sex: Female : 1985 Arrival Date: 10/07/2020 Time: 14:19 Bed 18 Private MD: Diagnosis: Pain in left leg Presentation: 10/07 14:25 Chief complaint: Patient states: Pain, bruising to L BKA since Monday. Did have a fall ll1 on the ice onto her L knee Monday. Coronavirus screen: Client denies travel out of the [place] in the last 14 days. At this time, the client does not indicate any symptoms associated with coronavirus-19. Ebola Screen: Patient denies travel to an Ebola-affected area in the 21 days before illness onset. Initial Sepsis Screen: Does the patient meet any 2 criteria? No. Patient's initial sepsis screen is negative. Does the patient have a suspected source of infection? Yes: Skin breakdown/wound. Risk Assessment: Do you want to hurt yourself or someone else? Patient reports no desire to harm self or others. Onset of symptoms was October 05, 2020. 14:25 Method Of Arrival: Ambulatory ll1 14:25 Acuity: EMILY 3 ll1 Historical: - Allergies: 14:25 Wellbutrin; ll1 14:25 Levofloxacin; ll1 14:25 bupropion HCl; ll1 - PMHx: 14:25 ADD/ADHD; Anxiety; Bipolar disorder; Depression; Endometrosis; Gastric Reflux; MRSA; ll1 osteomylitis; Ovarian cyst; UTI; - PSHx: 14:25 Below the knee amputation left leg; ll1 - Immunization history:: Flu vaccine is not up to date. - Social history:: Smoking status: Patient reports the use of cigarette tobacco products, smokes one-half pack cigarettes per day, Patient uses. Screenin:12 Abuse screen: Denies threats or abuse. Denies injuries from another. Nutritional ph screening: No deficits noted. Tuberculosis screening: No symptoms or risk factors identified. Fall Risk None identified. Assessment: 18:13 General: Appears in no apparent distress. comfortable, well groomed, Behavior is calm, ph cooperative, appropriate for age, Denies fever. Pain: Complains of pain in left knee. Neuro: Level of Consciousness is awake, alert, obeys commands, Oriented to person, place, time, situation. Cardiovascular: Capillary refill < 3 seconds in bilateral fingers Patient's skin is warm and dry. Respiratory: Airway is patent Respiratory effort is even, unlabored. GI: No signs and/or symptoms were reported involving the gastrointestinal system. Derm: Skin is healthy with good turgor, Skin is pink, warm \T\ dry. Bruising that is brown, green, on left BKA. Musculoskeletal: Amputation of left BKA. Circulation, motion, and sensation intact. Range of motion: intact in all extremities. Vital Signs: 14:25 BP 128 / 86; Pulse 80; Resp 17; Temp 97.9; Pulse Ox 98% ; Weight 89.36 kg; Height 5 ft. ll1 8 in. (172.72 cm); Pain 8/10; 18:54 BP 122 / 78; Pulse 75; Resp 18; Temp 97.5; Pulse Ox 99% on R/A; ph 14:25 Body Mass Index 29.95 (89.36 kg, 172.72 cm) ll1 ED Course: 14:19 Patient arrived in ED. rg4 14:24 Arm band placed on. ll1 14:27 Triage completed. ll1 17:08 Ole Lassiter PA is PHCP. cp 17:08 Guera Mccarty MD is Attending Physician. cp 17:12 Sylvia Wall, RN is Primary Nurse. ph 17:46 XRAY Femur LEFT In Process Unspecified. EDMS 18:04 US Extremity Venous Unilateral Ltd In Process Unspecified. EDMS 18:16 Patient has correct armband on for positive identification. Bed in low position. Call ph light in reach. Side rails up X 1. Pulse ox on. NIBP on. Door closed. Noise minimized. Warm blanket given. 19:22 No provider procedures requiring assistance completed. Patient did not have IV access jl7 during this emergency room visit. Administered Medications: 18:54 Drug: Hooper (7.5 mg-325 mg) 1 tabs Route: PO; ph 19:23 Follow up: Response: No adverse reaction; Marked relief of symptoms; RASS: Alert and jl7 Calm (0) Outcome: 18:57 Discharge ordered by . cp 19:22 Discharged to home ambulatory. jl7 19:22 Condition: good 19:22 Discharge instructions given to patient, Instructed on discharge instructions, follow up and referral plans. medication usage, Demonstrated understanding of instructions, follow-up care, medications, Prescriptions given X 2. 19:23 Patient left the ED. jl7 Signatures: Dispatcher [employer] EDSylvia Dash, RN RN Ole Johnson PA PA cp Garcia, Rubi rg4 Steffany Colvin RN RN jl7 Shen Paez RN RN ll1
[2020-10-07] MEDS ORDERED: HYDROCODONE/APAP 7.5/325 MG TAB ONE (19:08)
[2020-10-07 19:46] VITALS: BP 122/78; TEMP 97.5; O2SAT 99
== END 2020-10-07 19:23 | disposition home or self-care (01) ==
LOC: ER 14:16
DX: M79.605 Pain in left leg (principal); Z89.512 Acquired absence of left leg below knee; Z88.1 Allergy status to other antibiotic agents; Z88.8 Allergy status to other drugs, medicaments and biological substances; F17.210 Nicotine dependence, cigarettes, uncomplicated
CPT/HCPCS: 93971; 99284

== ENCOUNTER 2020-10-20 14:15 | Emergency (ER) | payer SELFPAY ==
--- OUTSIDE RECORDS SUMMARY | 2020-10-20 14:19 | XMS REPORT | Continuity of Care Document ---
:1985 Author Organization [facility] t Address [address] [place] [address] Care Team Providers Name Role Phone Freddy [...] [facility] Pelvic Pelvic Disease Active Krishnamurthy pain in [...] Active Overview: [facility] counseling 00:00: g of this 00 note might be different from the original. Discuss health risks associate d with tobacco smoking; strongly [...] Stop Date Source Maternal aunt Coronary artery [facility] Maternal grandmother Coronary artery [facility] Natural mother Coronary artery [facility] Natural brother Diabetes Krishnamurthy He alth Social History Social Habit Start Date Stop Date Quantity Comments Source Sex Assigned At [facility] History of tobacco Cigarette Smoker [facility] use Tobacco use and 2017-07-16 2017-07-[address] [facility] - exposure 00:00:00 00:00:00 [facility] Alcohol intake 2017-07-16 2017-07-16 Current [facility] es - 00:00:00 00:00:00 non-drinker of Medical Ce nter alcohol (finding) Cigarettes smoked 2017-07-16 2017-07-[address] [facility] - current (pack per 00:00:00 00:00:00 [facility] Center day) - Reported Cigarette 2015-04-20 2015-04-20 [facility] pack-years 00:00:00 00:00:00 Alcohol Comment 2015-04-16 2015-04-16 last drink 02/2015 [facility] [employer] 00:00:00 00:00:00 Smoking Status Start Date Stop Date Source Current every day smoker 2017-07-16 00:00:[address] [facility] Center Never smoker [place] [facility] Medications Ordered Filled Start Stop Current Ordering Indication Dosage Frequency Signature Comments Components Source Medication Medication Date Date Medication? Clinician (SIG) Name Name DULoxetine 2016-08 Yes anxiety 30mg QD Take [address] (CYMBALTA) - with by mouth [facility] - 30 MG 15:00: depression daily. Medi mary ann capsule 29 Center topiramate 2016-08 Yes 100mg Q.5D Take [address] (TOPAMAX) 1-26 mg by [facility] - 100 MG 15:00: mouth 2 Medical tablet 29 (two) Center times daily. omeprazole 2016-08 Yes gastroesoph 40mg QD Take [address] (PRILOSEC) 1- ageal by mouth [facility] - 40 MG 15:00: reflux daily. Medical capsule 29 disease Center hydrOXYzine 2016-08 Yes anxiety 25mg Q.25D Take [address] (ATARAX) 25 1-26 by mouth 4 Rosangela kes - MG tablet 15:00: (four) Medica l 29 times Center daily. propranolol 2016-08 Yes 20mg Q.5D Take [address] (INDERAL) 1-26 by mouth 2 [facility] - 20 MG 15:00: (two) Medical tablet 29 times Center daily. traZODone 2016-08 Yes 150mg QD Take [address] (DESYREL) 1-26 mg by [facility] - 150 MG 15:00: mouth Medical tablet 29 nightly. Garibaldi ARIPiprazol 2016-08 Yes 15mg QD Take [address] [facility] (ABILIFY) 1-26 by mouth [facility] - 15 MG 15:00: nightly. Medical tablet 29 Center ibuprofen Yes Tooth 800mg Take 4 [...] Unspecified 2{puff} Q.5D Inhale 2 Krishnamurthy formoterol 04-16 chronic Puffs by Jay alth (SYMBICORT) 00:00: bronchitis mouth 2 80-4.5 00 times mcg/actuati daily on inhaler Rinse mouth after each use.. Procedures This patient has no known procedures. Plan of Care Planned Activity Planned Date Details Comments Source Future Scheduled 2020-05-21 IMM Influenza [facility] 00:00:00 Seasonal May to October (>/= 19 yrs) [code = IMM Influenza Seasonal May to October (>/= 19 yrs)] Future Scheduled 2020-04-20 Screening for [facility] Test 00:00:00 malignant neoplasm of cervix (procedure) [code = 385129870] Future Scheduled 2020-03-21 INFLUENZA VACCINE [place] [facility] 00:00:00 [code = INFLUENZA VACCINE] Future Scheduled 2015 Screening for [facility] 00:00:00 malignant neoplasm of cervix (procedure) [code = 875967209] Future Scheduled 2006 Screening for [facility]ist Test 00:00:00 malignant neoplasm of cervix (procedure) [code = 169716111] Future Scheduled 2001 COVID-19 VACCINE (1 [place] [facility] Test 00:00:00 of 2) [code = COVID-19 VACCINE (1 of 2)] Encounters Start End Encounter Admission Attending Care Care Encounter Source Date/Time Date/Time Type Type Clinicians Facility Department ID 2020-04-29 2020-04-29 [id number] 10:44:00 14:30:00 [place] Juliet Sarah [id number] [place] [id number] [place] [id number] 2020-04-29 2020-04-29 Orders Doctor ANTHONY [id number] 00:00:00 00:00:00 Only Unassigned, LINDA [id number] [facility] [id number] 2019-04-14 2019-04-14 [facility] [id number] 17:25:25 17:58:00 Ad Sarah [id number] [place] [id number] [place] [id number] 2019-03-18 2019-03-18 Emergency Vonda Allen [facility] [id number] 22:34:35 23:51:00 Maribel Sarah [id number] [place] [id number] [place] [id number] 2017-04-09 2017-04-09 Emergency [facility] [id number] [place] 00:00:00 00:00:00 Health 2017-04-09 2017-04-09 Emergency [facility] [id number] [place] 00:00:00 00:00:00 Health 2017-04-08 2017-04-08 Emergency [facility] [id number] [place] 22:35:00 22:35:00 Health 2017-04-08 2017-04-08 Emergency [facility] [id number] [place] 00:00:00 00:00:00 Health Results Test Description Test Time Test Comments Results Result Comments Source HEMOGLOBIN A1C 2017-07-16 13:26:00 Test Item Value Reference Range Interpretation Comme nts HEMOGLOBIN A1C (BEAKER) (test code = 368) 5.2 % 4.3-6.1 CBC W/PLT COUNT & AUTO [id number] 09:42:00 Test Item Value Reference Range Interpretation [...] MORPHOLOGY (BEAKER) (test code Normal = 762) BASIC METABOLIC [id number] 07:11:00 Test Item Value Reference Range Interpretation [...] NOT APPLICABLE FOR DIALYSIS PATIEN TS. LIPID [id number] 07:11:00 Test Item Value Reference Range Interpretation [...] 100-129 Borderline 130-159 High 160-189 Very High [id number] 07:11:00 Test Item Value Reference Range Interpretation Comments MAGNESIUM (KRISTI) (test code = 1.5 mg/dL 1.6-2.6 L 627) TROPONIN [id number] 06:34:00 Test Item Value Reference Range Interpretation [...] acidosis, acute neurological disease, and persistent tachyarrhythmia.TROPONIN [id number] 23:58:00 Test Item Value Reference Range Interpretation [...]
--- NOTE | 2020-10-20 15:21 | ER ---
Nurse's Notes [facility] Name: Natasha Spann Age: 35 yrs Sex: Female : 1985 Arrival Date: 10/20/2020 Time: 14:17 Bed 20 Private MD: Diagnosis: Right mid back pain Presentation: 10/20 14:21 Chief complaint: Patient states: "I am having a lot of back pain. I was lifting a lot jd3 recently and I think I hurt it.". Coronavirus screen: At this time, the client does not indicate any symptoms associated with coronavirus-19. Ebola Screen: Patient negative for fever greater than or equal to 101.5 degrees Fahrenheit, and additional compatible Ebola Virus Disease symptoms. Initial Sepsis Screen: Does the patient meet any 2 criteria? No. Patient's initial sepsis screen is negative. Does the patient have a suspected source of infection? No. Patient's initial sepsis screen is negative. Risk Assessment: Do you want to hurt yourself or someone else? Patient reports no desire to harm self or others. Onset of symptoms was October 20, 2020. 14:21 Method Of Arrival: Ambulatory jd3 14:21 Acuity: EMILY 4 jd3 REFLEXOLOGIST: 14:23 LMP 09/25/2020 jd3 Historical: - Allergies: 14:23 bupropion HCl; jd3 14:23 Levofloxacin; jd3 14:23 Wellbutrin; jd3 - Home Meds: 14:23 Abilify Oral [Active]; Cymbalta Oral [Active]; propranolol 20 mg Oral tab 1 tab 2 times jd3 per day [Active]; trazodone 150 mg Oral tab 1 tab night prn [Active]; - PMHx: 14:23 ADD/ADHD; Anxiety; Bipolar disorder; Depression; Endometrosis; Gastric Reflux; MRSA; jd3 osteomylitis; Ovarian cyst; UTI; - PSHx: 14:23 Below the knee amputation left leg; jd3 - Immunization history:: Adult Immunizations up to date. - Social history:: Smoking status: Patient reports the use of cigarette tobacco products, smokes one-half pack cigarettes per day. Screenin:40 Abuse screen: Denies threats or abuse. Denies injuries from another. Nutritional ca1 screening: No deficits noted. 14:40 Tuberculosis screening: No symptoms or risk factors identified. Fall Risk None ca1 identified. Assessment: 14:40 General: Appears in no apparent distress. comfortable, Behavior is calm, cooperative, ca1 appropriate for age. 15:13 Pain: Complains of pain in right scapular area and right subscapular area Pain ca1 currently is 7 out of 10 on a pain scale. Pain began 3 hours ago. Aggravated by repositioning. Neuro: Level of Consciousness is awake, alert, obeys commands, Oriented to person, place, time, situation. Cardiovascular: Heart tones S1 S2 present Capillary refill < 3 seconds Patient's skin is warm and dry. Respiratory: Airway is patent Respiratory effort is even, unlabored, Respiratory pattern is regular, symmetrical, Breath sounds are clear bilaterally. GI: Abdomen is round non-distended, Bowel sounds present X 4 quads. Abd is soft and non tender X 4 quads. : No signs and/or symptoms were reported regarding the genitourinary system. EENT: No signs and/or symptoms were reported regarding the EENT system. Derm: Skin is intact, is healthy with good turgor, Skin is pink, warm \\T\\ dry. Musculoskeletal: Circulation, motion, and sensation intact. Capillary refill < 3 seconds. 15:46 Reassessment: Patient appears in no apparent distress at this time. Patient is alert, ca1 oriented x 3, equal unlabored respirations, skin warm/dry/pink. Vital Signs: 14:23 BP 118 / 79; Pulse 75; Resp 18 S; Temp 97.6(TE); Pulse Ox 99% on R/A; Weight 86.18 kg jd3 (R); Height 5 ft. 8 in. (172.72 cm) (R); Pain 8/10; 15:46 BP 121 / 81; Pulse 82; Resp 16 S; Pulse Ox 100% on R/A; ca1 14:23 Body Mass Index 28.89 (86.18 kg, 172.72 cm) jd3 ED Course: 14:17 Patient arrived in ED. mr 14:22 Triage completed. jd3 14:24 Arm band placed on. jd3 14:31 Reva Morales FNP-C [facility]. kb 14:31 Gregor Santo MD is Attending Physician. kb 14:40 Patient has correct armband on for positive identification. Bed in low position. Call ca1 light in reach. Side rails up X 1. Pulse ox on. NIBP on. Warm blanket given. 14:48 Herminia Marie, RN is Primary Nurse. ca1 15:46 No provider procedures requiring assistance completed. Patient did not have IV access ca1 during this emergency room visit. Administered Medications: 15:11 Drug: TORadol 60 mg Route: IM; Site: right gluteus; ca1 Outcome: 15:20 Discharge ordered by MD. jackson 15:46 Discharged to home ambulatory. ca1 15:46 Condition: stable 15:46 Discharge instructions given to patient, Instructed on discharge instructions, follow up and referral plans. no driving heavy equipment, medication usage, Demonstrated understanding of instructions, follow-up care, medications, Prescriptions given X 2. 15:47 Patient left the ED. ca1 Signatures: Reva Morales, EBD SPECIAL EDUCATION TEACHER-C EBD SPECIAL EDUCATION TEACHER-Belinda Stokes mr BerkowitzBlair, RN RN jd3 Herminia Marie, RN RN ca1 Corrections: (The following items were deleted from the chart) 15:15 14:40 General: Appears in no apparent distress. ca1 ca1
--- NOTE | 2020-10-20 15:21 | EDPHYS ---
Physician Documentation [facility] Name: Natasha Spann Age: 35 yrs Sex: Female : 1985 Arrival Date: 10/20/2020 Time: 14:17 Bed 20 Private MD: ED Physician Gregor Santo HPI: 10/20 15:18 This 35 yrs old Female presents to ER via Ambulatory with complaints of Back kb Pain. 15:18 The patient presents with pain that is acute. The symptoms are located in the right mid kb back. Onset: The symptoms/episode began/occurred today. The pain does not radiate. Associated signs and symptoms: The patient has no apparent associated signs or symptoms. The problem was sustained when lifting patient. Modifying factors: The patient symptoms are alleviated by rest, the patient symptoms are aggravated by any movement, lifting right arm above head. Severity of symptoms: At their worst the symptoms were moderate, in the emergency department the symptoms are unchanged. The patient has not experienced similar symptoms in the past. The patient has not recently seen a physician. Pt states she was pulling on pt a lot yesterday and lifting. Today woke up with pain to right mid back. No vertebral tenderness. Pain on palpation and passive ROM of right arm. BUSINESS DEPARTMENT CHAIR: 14:23 LMP 09/25/2020 jd3 Historical: - Allergies: 14:23 bupropion HCl; jd3 14:23 Levofloxacin; jd3 14:23 Wellbutrin; jd3 - Home Meds: 14:23 Abilify Oral [Active]; Cymbalta Oral [Active]; propranolol 20 mg Oral tab 1 tab 2 times jd3 per day [Active]; trazodone 150 mg Oral tab 1 tab night prn [Active]; - PMHx: 14:23 ADD/ADHD; Anxiety; Bipolar disorder; Depression; Endometrosis; Gastric Reflux; MRSA; jd3 osteomylitis; Ovarian cyst; UTI; - PSHx: 14:23 Below the knee amputation left leg; jd3 - Immunization history:: Adult Immunizations up to date. - Social history:: Smoking status: Patient reports the use of cigarette tobacco products, smokes one-half pack cigarettes per day. ROS: 14:57 Constitutional: Negative for fever, chills, and weight loss, Cardiovascular: Negative kb for chest pain, palpitations, and edema, Respiratory: Negative for shortness of breath, cough, wheezing, and pleuritic chest pain, Abdomen/GI: Negative for abdominal pain, nausea, vomiting, diarrhea, and constipation, : Negative for injury, bleeding, discharge, and swelling, MS/Extremity: Negative for injury and deformity, Skin: Negative for injury, rash, and discoloration, Neuro: Negative for headache, weakness, numbness, tingling, and seizure. 14:57 Back: Positive for pain at rest, pain with movement, of the right mid back. Exam: 14:57 Constitutional: This is a well developed, well nourished patient who is awake, alert, kb and in no acute distress. Head/Face: Normocephalic, atraumatic. Respiratory: Lungs have equal breath sounds bilaterally, clear to auscultation and percussion. No rales, rhonchi or wheezes noted. No increased work of breathing, no retractions or nasal flaring. Skin: Warm, dry with normal turgor. Normal color with no rashes, no lesions, and no evidence of cellulitis. MS/ Extremity: Pulses equal, no cyanosis. Neurovascular intact. Full, normal range of motion. Neuro: Awake and alert, GCS 15, oriented to person, place, time, and situation. Cranial nerves II-XII grossly intact. Motor strength 5/5 in all extremities. Sensory grossly intact. Cerebellar exam normal. Normal gait. 14:57 Back: pain, that is moderate, of the right mid back, ROM is normal, normal spinal alignment noted, CVA tenderness, is absent. Vital Signs: 14:23 BP 118 / 79; Pulse 75; Resp 18 S; Temp 97.6(TE); Pulse Ox 99% on R/A; Weight 86.18 kg jd3 (R); Height 5 ft. 8 in. (172.72 cm) (R); Pain 8/10; 15:46 BP 121 / 81; Pulse 82; Resp 16 S; Pulse Ox 100% on R/A; ca1 14:23 Body Mass Index 28.89 (86.18 kg, 172.72 cm) jd3 MDM: 14:36 Patient medically screened. kb 14:57 Data reviewed: vital signs, nurses notes. Data interpreted: Pulse oximetry: on room air kb is 99 %. Interpretation: normal. Counseling: I had a detailed discussion with the patient and/or guardian regarding: the historical points, exam findings, and any diagnostic results supporting the discharge/admit diagnosis, the need for outpatient follow up, a family practitioner, to return to the emergency department if symptoms worsen or persist or if there are any questions or concerns that arise at home. Administered Medications: 15:11 Drug: TORadol 60 mg Route: IM; Site: right gluteus; ca1 Disposition: 10/20/20 15:20 Discharged to Home. Impression: Right mid back pain. - Condition is Stable. - Discharge Instructions: Back Pain, Adult, [id number], Muscle Cramps and Spasms, [id number]. - Prescriptions for Ibuprofen 800 mg Oral Tablet - take 1 tablet by ORAL route every 8 hours As needed take with food; 30 tablet. Cyclobenzaprine 10 mg Oral Tablet - take 1 tablet by ORAL route every 8 hours As needed; 21 tablet. - Medication Reconciliation Form, Thank You Letter, Antibiotic Education, Prescription Opioid Use, Work release form form. - Follow up: Emergency Department; When: As needed; Reason: Worsening of condition. Follow up: Private Physician; When: 2 - 3 days; Reason: Recheck today's complaints, Continuance of care, Re-evaluation by your physician. Signatures: Reva Morales, TOOL SETTER-C TOOL SETTER-CkBlair Colmenares, RN RN jd3 Herminia Marie RN RN ca1 Corrections: (The following items were deleted from the chart) 15:18 14:57 Back: Positive for pain at rest, pain with movement, of the left mid back and kb right mid back, kb 15:47 15:20 10/20/2020 15:20 Discharged to Home. Impression: Right mid back pain. Condition ca1 is Stable. Forms are Medication Reconciliation Form, Thank You Letter, Antibiotic Education, Prescription Opioid Use. Follow up: Emergency Department; When: As needed; Reason: Worsening of condition. Follow up: Private Physician; When: 2 - 3 days; Reason: Recheck today's complaints, Continuance of care, Re-evaluation by your physician. kb
[2020-10-20] MEDS ORDERED: KETOROLAC 30 MG/ML INJ ONE (15:26)
[2020-10-20 16:07] VITALS: TEMP 97.6
[2020-10-20 16:09] VITALS: BP 121/81; O2SAT 100
== END 2020-10-20 15:47 | disposition home or self-care (01) ==
LOC: ER 14:15
DX: M54.9 Dorsalgia, unspecified (principal); F17.210 Nicotine dependence, cigarettes, uncomplicated; Z88.1 Allergy status to other antibiotic agents; Z88.5 Allergy status to narcotic agent; Z88.8 Allergy status to other drugs, medicaments and biological substances
CPT/HCPCS: 96372; 99283

== ENCOUNTER 2020-11-14 01:16 | Emergency (ER) | payer SELFPAY ==
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
[2020-11-14 02:21] LABS: Urine Blood 2+ (Negative); Urine Glucose NEGATIVE (Negative); Urine Protein 2+ (NEG); Urine Specific Gravity 1.025 (1.005-1.030); Urine Specific Gravity/Preg 1.025 (1.005-1.030); Urine pH 6.5 (5.0-7.0)
[2020-11-14 02:29] LABS: ALT/SGPT 19 U/L (12-78); AST/SGOT 10 U/L (15-37); Absolute Lymphocytes (CBC) 4.9 K/uL (0.7-4.9); Albumin 3.5 g/dL (3.4-5.0); Alkaline Phosphatase 87 U/L (45-117); BUN Blood Urea Nitrogen 9 mg/dL (7-18); Basophils % 0.8 % (0-1.3); Bicarbonate 26 mmol/L (21-32); Bilirubin Direct < 0.1 mg/dL (0-0.2); Bilirubin Total 0.2 mg/dL (0.2-1.0); Glucose Level 107 mg/dL (74-106); Hematocrit 39.8 % (36.0-45.0); Lipase 177 U/L (73-393); Lymphocytes % 31.8 % (15.3-44.8); MPV 8.3 fL (7.6-11.3); Potassium 3.8 mmol/L (3.5-5.1); Protein, Total 7.1 g/dL (6.4-8.2); RBC Red Blood Cell Count 4.27 M/uL (3.86-4.86); Sodium Level 141 mmol/L (136-145)
[2020-11-14] MEDS ORDERED: NA CHLORIDE 0.9% 1,000 ML ONE ×2 (02:34→03:39)
[2020-11-14] MEDS ORDERED: ONDANSETRON 4 MG/2 ML VIAL ONE (02:34)
[2020-11-14] MEDS ORDERED: MORPHINE 4 MG/ML SYR ONE (02:34)
[2020-11-14] MEDS ORDERED: CEFTRIAXONE/SWI 1gm 1 GM/10 ML SYR ONE (02:53)
[2020-11-14] MEDS ORDERED: SMZ./TMP. 800/160 MG TABLET ONE (02:53)
[2020-11-14] MEDS ORDERED: HYDROMORPHONE HCL 1 MG/ML INJ ONE (03:34)
--- NOTE | 2020-11-14 03:50 | EDPHYS ---
Physician Documentation [facility] Name: Natasha Spann Age: 35 yrs Sex: Female : 1985 Arrival Date: 11/14/2020 Time: 01:18 Bed 18 Private MD: ED Physician Guera Mccarty HPI: 11/14 01:57 This 35 yrs old Female presents to ER via Ambulatory with complaints of ma2 abdominal pian lower . 01:57 Onset: The symptoms/episode began/occurred gradually, 1 day(s) ago. Associated signs ma2 and symptoms: Pertinent negatives: anorexia, chest pain, diarrhea, fever. Associated signs and symptoms: Pertinent positives: dysuria. Severity of pain: At its worst the pain was moderate in the emergency department the pain is unchanged. The patient has not experienced similar symptoms in the past, The patient has experienced similar episodes in the past. 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 - Social history:: Smoking status: Patient reports the use of cigarette tobacco products, smokes one pack cigarettes per day. Patient uses alcohol, only on a social basis. Patient/guardian denies using street drugs, IV drugs. - Family history:: not pertinent. ROS: 01:57 Constitutional: Negative for fever, chills, and weight loss. ma2 01:57 All other systems are negative. Exam: 01:57 Constitutional: This is a well developed, well nourished patient who is awake, alert, ma2 and in no acute distress. Eyes: Pupils equal round and reactive to light, extra-ocular motions intact. Lids and lashes normal. Conjunctiva and sclera are non-icteric and not injected. Cornea within normal limits. Periorbital areas with no swelling, redness, or edema. ENT: Nares patent. No nasal discharge, no septal abnormalities noted. Tympanic membranes are normal and external auditory canals are clear. Oropharynx with no redness, swelling, or masses, exudates, or evidence of obstruction, uvula midline. Mucous membranes moist. Neck: Trachea midline, no thyromegaly or masses palpated, and no cervical lymphadenopathy. Supple, full range of motion without nuchal rigidity, or vertebral point tenderness. No Meningismus. Chest/axilla: Normal chest wall appearance and motion. Nontender with no deformity. No lesions are appreciated. Cardiovascular: Regular rate and rhythm with a normal S1 and S2. No gallops, murmurs, or rubs. Normal PMI, no JVD. No pulse deficits. Respiratory: Lungs have equal breath sounds bilaterally, clear to auscultation and percussion. No rales, rhonchi or wheezes noted. No increased work of breathing, no retractions or nasal flaring. Abdomen/GI: Soft, non-tender, with normal bowel sounds. No distension or tympany. No guarding or rebound. No evidence of tenderness throughout. Skin: Warm, dry with normal turgor. Normal color with no rashes, no lesions, and no evidence of cellulitis. MS/ Extremity: Pulses equal, no cyanosis. Neurovascular intact. Full, normal range of motion. Neuro: Awake and alert, GCS 15, oriented to person, place, time, and situation. Cranial nerves II-XII grossly intact. Motor strength 5/5 in all extremities. Sensory grossly intact. Cerebellar exam normal. Normal gait. Vital Signs: 01:21 BP 152 / 87; Pulse 88; Resp 18; Temp 97.9; Pulse Ox 100% on R/A; Weight 81.65 kg; sg Height 5 ft. 8 in. (172.72 cm); Pain 10/10; 02:06 BP 115 / 44; Pulse 67; Resp 18; Pulse Ox 97% ; sf 02:30 BP 108 / 53; Pulse 60; Resp 18; Pulse Ox 97% ; sf 02:40 Pain 8/10; sf 03:10 BP 130 / 65; Pulse 65; Resp 18; Pulse Ox 95% ; sf 03:30 BP 99 / 52; Pulse 70; Resp 16; Pulse Ox 98% ; sf 04:00 BP 119 / 86; Pulse 65; Resp 16; Pulse Ox 96% ; Pain 4/10; sf 01:21 Body Mass Index 27.37 (81.65 kg, 172.72 cm) MDM: 01:44 Patient medically screened. [facility] 01:57 Differential diagnosis: Ectopic , Endometriosis, gastritis, gastroesophageal ma2 reflux disease, Menorrhagia. 03:48 Data reviewed: vital signs, nurses notes. Counseling: I had a detailed discussion with [facility] the patient and/or guardian regarding: the historical points, exam findings, and any diagnostic results supporting the discharge/admit diagnosis, the presence of at least one elevated blood pressure reading (>120/80) during this emergency department visit, the need for outpatient follow up. Response to treatment: the patient's symptoms have markedly improved after treatment. ED course: ct abd is non critical,. Although showing possible enteritis, patient does not have diarrhea or vomiting, she does have suprapubic abd burning and dysuria and frequency and urgency and flank painm ua is consistent with uti and pyelonephritis . 11/14 01:45 Order name: Basic Metabolic Panel [facility] 11/14 01:45 Order name: CBC with Diff; Complete Time: 03:06 [facility] 11/14 01:45 Order name: Hepatic Function [facility] 11/14 01:45 Order name: Lipase; Complete Time: 03:06 [facility] 11/14 01:46 Order name: Basic Metabolic Panel; Complete Time: 03:06 [facility] 11/14 01:46 Order name: Liver (Hepatic) Function; Complete Time: 03:06 [facility] 11/14 01:46 Order name: Test, Serum; Complete Time: 03:06 [facility] 11/14 01:57 Order name: CT Abd/Pelvis - IV Contrast Only [facility] 11/14 02:16 Order name: Urine Dipstick--Ancillary (enter results) 11/14 02:16 Order name: Urine --Ancillary (enter results) 11/14 02:17 Order name: Urine Dipstick-Ancillary; Complete Time: 03:06 [facility] 11/14 02:17 Order name: Urine --Ancillary; Complete Time: 03:06 [facility] 11/14 02:30 Order name: CREATININE WHOLE BLOOD; Complete Time: 03:06 [facility] 11/14 01:45 Order name: IV Saline Lock; Complete Time: 02:06 [facility] 11/14 01:45 Order name: Labs collected and sent; Complete Time: 02:06 [facility] 11/14 01:45 Order name: Urine Dipstick-Ancillary (obtain specimen); Complete Time: 02:07 [facility] Administered Medications: 02:15 Drug: NS 0.9% 1000 ml Route: IV; Rate: 1 bolus; Site: right antecubital; sf 03:24 Follow up: IV Status: Completed infusion; IV Intake: 1000ml sf 03:24 Follow up: Response: No adverse reaction sf 02:16 Drug: Zofran (Ondansetron) 4 mg Route: IVP; Site: right antecubital; sf 02:40 Follow up: Response: No adverse reaction; Nausea is decreased sf 02:17 Drug: morphine 4 mg Route: IVP; Site: right antecubital; sf 02:40 Follow up: Response: No adverse reaction; Pain is decreased sf 02:40 Drug: Bactrim (160 mg-800 mg (DS) 1 tablet Route: PO; sf 03:14 Follow up: Response: No adverse reaction sf 02:40 Drug: Rocephin (cefTRIAXone) 1 grams Route: IV; Rate: calculated rate; Site: right sf antecubital; 02:45 Follow up: IV Status: Completed infusion; IV Intake: 10ml sf 03:14 Follow up: Response: No adverse reaction sf 03:19 Drug: Dilaudid (HYDROmorphone) 1 mg Route: IVP; Site: right antecubital; sf 04:04 Follow up: Response: No adverse reaction; Pain is decreased sf 03:24 Drug: NS 0.9% 1000 ml Route: IV; Rate: 1 bolus; Site: right antecubital; sf 04:04 Follow up: IV Status: IV converted to saline lock; IV Intake: 800ml sf Disposition: 11/14/20 03:50 Discharged to Home. Impression: Acute cystitis without hematuria - with bilateral pyelonephritis . - Condition is Stable. - Discharge Instructions: Urinary Tract Infection, Adult, [id number]-[id number]-[id number]. - Prescriptions for Diclofenac Sodium 75 mg Oral Tablet Sustained Release - take 1 tablet by ORAL route 2 times per day; 30 tablet. Bactrim DS 800- 160 mg Oral Tablet - take 1 tablet by ORAL route every 12 hours for 7 days; 14 tablet. - Medication Reconciliation Form, Thank You Letter, Antibiotic Education, Prescription Opioid Use form. - Follow up: Private Physician; When: Tomorrow; Reason: If symptoms return. Signatures: Dispatcher [employer] Herb Salmon, JONY RN sg Guera Mccarty MD MD ga2 Herb Arshad RN RN sf Corrections: (The following items were deleted from the chart) 01:48 01:20 Social history: Smoking status: Patient denies any tobacco usage or history of. sgsf 02:03 01:46 Abdomen Pelvis Wo Con+CT.RAD.BRZ ordered. [facility] 04:11 03:50 11/14/2020 03:50 Discharged to Home. Impression: Acute cystitis without hematuria sf - with bilateral pyelonephritis . Condition is Stable. Discharge Instructions: Urinary Tract Infection, Adult, Luri-ul-Kxrm. Prescriptions for Diclofenac Sodium 75 mg Oral Tablet Sustained Release - take 1 tablet by ORAL route 2 times per day; 30 tablet, Bactrim DS 800-160 mg Oral Tablet - take 1 tablet by ORAL route every 12 hours for 7 days; 14 tablet. and Forms are Medication Reconciliation Form, Thank You Letter, Antibiotic Education, Prescription Opioid Use. Follow up: Private Physician; When: Tomorrow; Reason: If symptoms return. ma2
--- NOTE | 2020-11-14 03:50 | ER ---
Nurse's Notes [facility] Name: Natasha Spann Age: 35 yrs Sex: Female : 1985 Arrival Date: 11/14/2020 Time: 01:18 Bed 18 Private MD: Diagnosis: Acute cystitis without hematuria-with bilateral pyelonephritis Presentation: 11/14 01:21 Acuity: EMILY 3 sg 01:21 Chief complaint: Patient states: Right flank pain that radiates to the abdomen, states sg feels sharp and stabbing, states pain 10/10. Coronavirus screen: Client denies travel out of the [place] in the last 14 days. At this time, the client does not indicate any symptoms associated with coronavirus-19. Initial Sepsis Screen: Does the patient meet any 2 criteria? No. Patient's initial sepsis screen is negative. Does the patient have a suspected source of infection? Yes: Acute abdominal pain. Risk Assessment: Do you want to hurt yourself or someone else? Patient reports no desire to harm self or others. Onset of symptoms was November 14, 2020. Care prior to arrival: None. Transition of care: patient was not received from another setting of care. 01:21 Method Of Arrival: Ambulatory sg 01:48 Ebola Screen: Patient denies exposure to infectious person. Patient denies travel to an Ebola-affected area in the 21 days before illness onset. Patient positive for the following Ebola Virus Disease associated symptoms: abdominal pain. 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 - Social history:: Smoking status: Patient reports the use of cigarette tobacco products, smokes one pack cigarettes per day. Patient uses alcohol, only on a social basis. Patient/guardian denies using street drugs, IV drugs. - Family history:: not pertinent. Screenin:51 Abuse screen: Denies threats or abuse. Denies injuries from another. Nutritional sf screening: No deficits noted. Tuberculosis screening: No symptoms or risk factors identified. Never had TB. Possible symptoms: None Risk factors: None. Fall Risk None identified. No fall in past 12 months (0 pts). No secondary diagnosis (0 pts). IV access (20 points). Ambulatory Aid- None/Bed Rest/Nurse Assist (0 pts). Gait- Normal/Bed Rest/Wheelchair (0 pts) Mental Status- Oriented to own ability (0 pts). Total Steve Fall Scale indicates No Risk (0-24 pts). Assessment: 01:49 General: Appears uncomfortable, Behavior is calm, cooperative. Pain: Complains of pain sf in right lower quadrant and left lower quadrant Pain radiates to low back area and mid back area Pain currently is 10 out of 10 on a pain scale. Quality of pain is described as shooting. Neuro: No deficits noted. Level of Consciousness is awake, alert, Oriented to person, place, time, situation. Cardiovascular: No deficits noted. Patient's skin is warm and dry. Respiratory: No deficits noted. Airway is patent Respiratory effort is even, unlabored, Respiratory pattern is regular, symmetrical. GI: Abdomen is non-distended, obese, Bowel sounds present X 4 quads. Abd is soft and non tender X 4 quads. Reports lower abdominal pain, Patient currently denies nausea, vomiting. : Reports burning with urination, incontinence, urinary frequency. EENT: No signs and/or symptoms were reported regarding the EENT system. Derm: No signs and/or symptoms reported regarding the dermatologic system. Musculoskeletal: No signs and/or symptoms reported regarding the musculoskeletal system. 04:05 Reassessment: Patient appears in no apparent distress at this time. Patient and/or sf family updated on plan of care and expected duration. Pain level reassessed. Patient is alert, oriented x 3, equal unlabored respirations, skin warm/dry/pink. Ready for discharge, does not want to finish last 200ml of NS infusion Patient states feeling better. Patient states symptoms have improved. Vital Signs: 01:21 BP 152 / 87; Pulse 88; Resp 18; Temp 97.9; Pulse Ox 100% on R/A; Weight 81.65 kg; Height 5 ft. 8 in. (172.72 cm); Pain 10/10; 02:06 BP 115 / 44; Pulse 67; Resp 18; Pulse Ox 97% ; sf 02:30 BP 108 / 53; Pulse 60; Resp 18; Pulse Ox 97% ; sf 02:40 Pain 8/10; sf 03:10 BP 130 / 65; Pulse 65; Resp 18; Pulse Ox 95% ; sf 03:30 BP 99 / 52; Pulse 70; Resp 16; Pulse Ox 98% ; sf 04:00 BP 119 / 86; Pulse 65; Resp 16; Pulse Ox 96% ; Pain 4/10; sf 01:21 Body Mass Index 27.37 (81.65 kg, 172.72 cm) ED Course: 01:18 Patient arrived in ED. cl3 01:20 Arm band placed on. sg 01:21 Triage completed. sg 01:39 Herb Arshad, JONY is Primary Nurse. sf 01:44 Guera Mccarty MD is Attending Physician. ma2 01:52 Patient has correct armband on for positive identification. Bed in low position. Call sf light in reach. Side rails up X 1. Pulse ox on. NIBP on. Door closed. Noise minimized. Visitors limited. Lights dimmed. Verbal reassurance given. 02:00 Initial lab(s) drawn, by me, sent to lab. Inserted saline lock: 20 gauge in right sf antecubital area, using aseptic technique. Blood collected. 02:05 Urine collected: clean catch specimen, clear. sf 02:06 Hepatic Function Sent. sf 02:06 Basic Metabolic Panel Sent. sf 02:20 Warm blanket given. sf 02:23 Urine Dipstick--Ancillary (enter results) Sent. sf 02:23 Urine --Ancillary (enter results) Sent. sf 03:06 CT Abd/Pelvis - IV Contrast Only Sent. sf 03:17 CT Abd/Pelvis - IV Contrast Only In Process Unspecified. EDMS 04:09 No provider procedures requiring assistance completed. IV discontinued, intact, sf bleeding controlled, No redness/swelling at site. Pressure dressing applied. Administered Medications: 02:15 Drug: NS 0.9% 1000 ml Route: IV; Rate: 1 bolus; Site: right antecubital; sf 03:24 Follow up: IV Status: Completed infusion; IV Intake: 1000ml sf 03:24 Follow up: Response: No adverse reaction sf 02:16 Drug: Zofran (Ondansetron) 4 mg Route: IVP; Site: right antecubital; sf 02:40 Follow up: Response: No adverse reaction; Nausea is decreased sf 02:17 Drug: morphine 4 mg Route: IVP; Site: right antecubital; sf 02:40 Follow up: Response: No adverse reaction; Pain is decreased sf 02:40 Drug: Bactrim (160 mg-800 mg (DS) 1 tablet Route: PO; sf 03:14 Follow up: Response: No adverse reaction sf 02:40 Drug: Rocephin (cefTRIAXone) 1 grams Route: IV; Rate: calculated rate; Site: right sf antecubital; 02:45 Follow up: IV Status: Completed infusion; IV Intake: 10ml sf 03:14 Follow up: Response: No adverse reaction sf 03:19 Drug: Dilaudid (HYDROmorphone) 1 mg Route: IVP; Site: right antecubital; sf 04:04 Follow up: Response: No adverse reaction; Pain is decreased sf 03:24 Drug: NS 0.9% 1000 ml Route: IV; Rate: 1 bolus; Site: right antecubital; sf 04:04 Follow up: IV Status: IV converted to saline lock; IV Intake: 800ml sf Intake: 02:45 IV: 10ml; Total: 10ml. sf 03:24 IV: 1000ml; Total: 1010ml. sf 04:04 IV: 800ml; Total: 1810ml. sf Outcome: 03:50 Discharge ordered by MD. mosley 04:09 Discharged to home ambulatory. sf 04:09 Condition: stable 04:09 Discharge instructions given to patient, Instructed on discharge instructions, follow up and referral plans. no drinking with medication, medication usage, Demonstrated understanding of instructions, follow-up care, medications, Prescriptions given X 2. 04:11 Patient left the ED. sf Signatures: Dispatcher [employer] EDMS Herb Latham RN RN sg Guera Mccarty MD MD ma2 Lewis, Charde cl3 Herb Arshad, RN RN sf Corrections: (The following items were deleted from the chart) 01:43 01:21 Pulse 88bpm; Resp 18bpm; Pulse Ox 100% RA; Temp 97.9F; 81.65 kg; Height 5 ft. 8 sg in.; BMI: 27.3; Pain 10/10; sg 01:48 01:20 Social history: Smoking status: Patient denies any tobacco usage or history of. sgs 02:06 01:49 : No signs and/or symptoms were reported regarding the genitourinary system. sf sf
--- NOTE | 2020-11-14 20:28 | RAD REPORT ---
EXAM DESCRIPTION: CT - Abdomen Pelvis W Contrast - 11/14/2020 6:31 am CLINICAL HISTORY: The patient is 35 years old and is Female; ABD PAIN TECHNIQUE: Axial computed tomography images of the abdomen and pelvis with intravenous contrast. S agittal and coronal reformatted images were created and reviewed. This CT exam was performed using one or more of the following dose reduction techniques: automated exposure control, adjustment of t he mA and/or kV according to patient size, and/or use of iterative reconstruction technique. COMPARISON: CT abdomen and pelvis 04/17/2020. FINDINGS: Lung bases: Unremarkable. No mass. No consolidation. ABDOMEN: Liver: Tiny 6 mm low-density lesion in the right posterior liver. Gallbladder and bile ducts: Unremarkable. No calcified stones. No ductal dilation. Pancreas: Unremarkable. No mass. No ductal dilation. Spleen: Unremarkable. No splenomegaly. Adrenals: Unremarkable. No mass. Kidneys and ureters: Unremarkable. No solid mass. No hydronephrosis. Stomach and bowel: Mildly prominent proximal small bowel measuring up to 2.8 cm in diameter with the suggestion of mild bowel wall thickening. No evidence of obstruction. PELVIS: Appendix: No findings to suggest acute appendicitis. Bladder: Unremarkable. No mass. Reproductive: Unremarkable as visualized. ABDOMEN and PELVIS: Intraperitoneal space: Unremarkable. No free air. No significant fluid collection. Bones/joints: No acute fracture. No dislocation. Soft tissues: Unremarkable. Vasculature: Unremarkable. No abdominal aortic aneurysm. Lymph nodes: Unremarkable. No enlarged lymph nodes. Tubes, lines and devices: Thin-walled homogenous 3 x 2.5 cm right ovarian/adnexal cyst. SRU Conse nsus Conference guidelines (Pleitez, et. al. Radiology 2019;293:359-371) suggest no follow-up is neces edwige. IMPRESSION: Mildly prominent proximal small bowel measuring up to 2.8 cm in diameter with the sugges tion of mild bowel wall thickening. No evidence of obstruction. Finding is nonspecific but can be s een with enteritis. Electronically signed by: Antoine Calderon MD 11/14/2020 3:38 AM CDT Due to temporary technical issues with the PACS/Fluency reporting system, reports are being signed by the in house radiologists without review as a courtesy to insure prompt reporting. The interpreting radiologist is fully responsible for the content of the report.
[2020-11-14 21:03] VITALS: TEMP 97.9
[2020-11-14 21:10] VITALS: BP 119/86; O2SAT 96
== END 2020-11-14 04:11 | disposition home or self-care (01) ==
LOC: ER 01:16
DX: N30.00 Acute cystitis without hematuria (principal); N12 Tubulo-interstitial nephritis, not specified as acute or chronic; F17.210 Nicotine dependence, cigarettes, uncomplicated; F31.9 Bipolar disorder, unspecified; Z88.1 Allergy status to other antibiotic agents; Z88.8 Allergy status to other drugs, medicaments and biological substances
CPT/HCPCS: 36415; 74177; 80048; 80076; 81003; 81025; 82565; 83690; 84703; 85025; 96361; 96374; 96375; 99284; J0696; J1170; J2405; J7030; Q9967

== ENCOUNTER 2020-12-21 09:21 | Emergency (ER) | payer SELFPAY ==
--- OUTSIDE RECORDS SUMMARY | 2020-12-21 09:23 | XMS REPORT | Continuity of Care Document ---
:1985 Author Organization Formerly [facility] t Address [address] [place] [address] Care Team Providers Name Role Phone Sharpless [...] Stop Date Source Maternal aunt Coronary artery [facility] Maternal grandmother Coronary artery [facility] Natural mother Coronary artery [facility] S t [facility] Natural brother Diabetes Krishnamurthy He alth Social History Social Habit Start Date Stop Date Quantity Comments Source Sex Assigned At [facility] History of tobacco Cigarette Smoker [facility] use Tobacco use and 2017-07-16 2017-07-16 Never used [facility] - exposure 00:00:00 00:00:00 [facility] Alcohol intake 2017-07-16 2017-07-16 Current [facility] es - 00:00:00 00:00:00 non-drinker of Medical Ce nter alcohol (finding) Cigarettes smoked 2017-07-16 2017-07-[address] [facility] - current (pack per 00:00:00 00:00:00 Medical Center day) - Reported Cigarette 2015-04-20 2015-04-20 [facility] pack-years 00:00:00 00:00:00 Alcohol Comment 2015-04-16 2015-04-16 last drink 02/2015 [facility] 00:00:00 00:00:00 Smoking Status Start Date Stop Date Source Current every day smoker 2017-07-16 00:00:[address] [facility] - [facility] smoker [facility] Medications Ordered Filled Start Stop Current Ordering [...] QD Take [address] (PRILOSEC) - ageal by mouth Luke [facility] - 40 MG 15:00: reflux daily. Medical capsule 29 disease Center hydrOXYzine 2016-08 Yes anxiety 25mg Q.25D Take [address] (ATARAX) 25 1-26 by mouth 4 Rosangela kes - MG tablet 15:00: (four) Medica l 29 times Center daily. propranolol 2016-08 Yes 20mg Q.5D Take [address] (INDERAL) 1- by mouth 2 [facility] - 20 MG 15:00: (two) Medical tablet 29 times Center daily. traZODone 2016-08 Yes 150mg QD Take [address] (DESYREL) 1-26 mg by [facility] - 150 MG 15:00: mouth Medical tablet 29 nightly. [place] ARIPiprazol 2016-08 Yes 15mg QD Take [address] [facility] (ABILIFY) 1-26 by mouth Luke [facility] - 15 MG 15:00: nightly. Medical tablet 29 Center ibuprofen Yes Tooth 800mg Take 4 Anette is (MOTRIN) 8-31 infection tablets by [facility] 200 mg 00:00: mouth tablet 00 [...] Planned Date Details Comments Source Future Scheduled 2021-05-21 IMM Influenza [facility] 00:00:00 Seasonal May to October (>/= 19 yrs) [code = IMM Influenza Seasonal May to October (>/= 19 yrs)] Future Scheduled 2021-03-21 INFLUENZA VACCINE [facility] 00:00:00 [code = INFLUENZA VACCINE] Future Scheduled 2020-04-20 Screening for [facility] Test 00:00:00 malignant neoplasm of cervix (procedure) [code = 068799008] Future Scheduled 2015 Screening for [facility] Test 00:00:00 malignant neoplasm of cervix (procedure) [code = 466925950] Future Scheduled [address] [facility] Test 00:00:00 malignant neoplasm of cervix (procedure) [code = 745283716] Future Scheduled 2001 COVID-19 Vaccine (1) Benjamín [facility] Test 00:00:00 [code = COVID-19 Vaccine (1)] Future Scheduled 2001 COVID-19 VACCINE (1) Carie may [facility] 00:00:00 [code = COVID-19 VACCINE (1)] Encounters Start End Encounter Admission Attending Care Care Encounter Source Date/Time Date/Time Type Type Clinicians Facility Department ID 2020-04-29 2020-04-29 Emergency Lotus [facility] [id number] 10:44:00 14:30:00 Linn Smith [id number] [place] [id number] [place] [id number] 2020-04-29 2020-04-29 Orders Doctor ANTHONY [id number] 00:00:00 00:00:00 Only Unassigned, LINDA [id number] [place] [facility] [id number] 2019-04-14 2019-04-14 Emergency Concepcion [facility] [id number] 17:25:25 17:58:00 Ad Smith [id number] [place] [id number] [place] [id number] 2019-03-18 2019-03-18 Emergency Vonda Allen [facility] [id number] 22:34:35 23:51:00 Maribel Smith [id number] [place] [id number] [place] [id number] 2017-04-09 2017-04-09 Emergency [facility] [id number] [place] 00:00:00 00:00:00 Health 2017-04-09 2017-04-09 Emergency [facility] [id number] [place] 00:00:00 00:00:00 Health 2017-04-08 2017-04-08 Emergency [facility] [id number] [place] 22:35:00 22:35:00 Health 2017-04-08 2017-04-08 Emergency [facility] [id number] [place] 00:00:00 00:00:00 Health Results Test Description Test Time Test Comments Results Result Comments Source HEMOGLOBIN A1C 2017-07-16 13:26:00 Test Item Value Reference Range Interpretation Comme nts HEMOGLOBIN A1C (RIKAKER) (test code = 368) 5.2 % 4.3-6.1 CBC W/PLT COUNT & AUTO [id number] 09:42:00 Test Item Value Reference Range Interpretation [...] (test code Normal = 762) BASIC METABOLIC [id number] 07:11:00 Test Item Value Reference Range Interpretation [...] NOT APPLICABLE FOR DIALYSIS PATIEN TS. LIPID [id number] 07:11:00 Test Item Value Reference Range Interpretation [...] 100-129 Borderline 130-159 High 160-189 Very High [id number] 07:11:00 Test Item Value Reference Range Interpretation Comments MAGNESIUM (KRISTI) (test code = 1.5 mg/dL 1.6-2.6 L 627) TROPONIN [id number] 06:34:00 Test Item Value Reference Range Interpretation [...] acidosis, acute neurological disease, and persistent tachyarrhythmia.TROPONIN [id number] 23:58:00 Test Item Value Reference Range Interpretation [...]
[2020-12-21 09:58] LABS: Absolute Lymphocytes (CBC) 2.8 K/uL (0.7-4.9); Basophils % 0.6 % (0-1.3); Hematocrit 38.2 % (36.0-45.0); Lymphocytes % 24.6 % (15.3-44.8); MPV 8.1 fL (7.6-11.3); RBC Red Blood Cell Count 4.08 M/uL (3.86-4.86)
[2020-12-21] MEDS ORDERED: ACETAMINOPHEN 500 MG TAB ONE (09:59)
[2020-12-21 10:02] LABS: Protime INR 0.97
[2020-12-21 10:15] LABS: ALT/SGPT 22 U/L (12-78); AST/SGOT 11 U/L (15-37); Albumin 3.6 g/dL (3.4-5.0); Alkaline Phosphatase 83 U/L (45-117); BUN Blood Urea Nitrogen 7 mg/dL (7-18); Bicarbonate 27 mmol/L (21-32); Bilirubin Direct < 0.1 mg/dL (0-0.2); Bilirubin Total 0.2 mg/dL (0.2-1.0); Glucose Level 102 mg/dL (74-106); Magnesium 1.9 mg/dL (1.8-2.4); NT PRO-BNP 164 pg/mL (<125); Potassium 3.8 mmol/L (3.5-5.1); Protein, Total 6.9 g/dL (6.4-8.2); Sodium Level 140 mmol/L (136-145); Troponin (Emerg Dept Use Only) < 0.02 ng/mL (0.0-0.045)
--- NOTE | 2020-12-21 10:38 | RAD REPORT ---
EXAM DESCRIPTION: RAD - Chest Single View - 12/21/2020 10:15 am CLINICAL HISTORY: CHEST PAIN Chest pain. COMPARISON: Chest Single View dated 09/02/2019; Chest Pa And Lat (2 Views) dated 08/04/2019; Chest Si ngle View dated 11/22/2018; Chest Single View dated 11/02/2017 FINDINGS: Portable technique limits examination quality. The lungs are grossly clear. The heart is normal in size. No displaced fractures. IMPRESSION: No acute intrathoracic process suspected.
[2020-12-21 10:40] LABS: Urine Blood Negative (Negative); Urine Glucose Negative (Negative); Urine Protein Negative (Negative); Urine Specific Gravity 1.015 (1.005-1.030)
[2020-12-21 10:41] LABS: Urine Specific Gravity/Preg 1.015 (1.005-1.030)
--- NOTE | 2020-12-21 13:00 | EDPHYS ---
Physician Documentation [facility] Name: Natasha Spann Age: 35 yrs Sex: Female : 1985 Arrival Date: 12/21/2020 Time: 09:24 Bed 13 Private MD: ED Physician Guera Mccarty HPI: 12/21 10:21 This 35 yrs old Female presents to ER via Ambulatory with complaints of Chest kb Pain, Headache. 10:21 The patient or guardian reports chest pain that is located primarily in the anterior kb chest wall, right. The pain does not radiate. Associated signs and symptoms: Pertinent positives: diaphoresis, dizziness, headache. The chest pain is described as a heaviness. Duration: The patient or guardian reports a single episode, that is still ongoing, but improving. Modifying factors: The symptoms are alleviated by nothing. the symptoms are aggravated by nothing. Severity of pain: At its worst the pain was mild moderate in the emergency department the pain has improved. The patient has not experienced similar symptoms in the past. The patient has not recently seen a physician. 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 States she feels mild heaviness to chest now and headache. Dizziness has subsided. States they took her BP at work and it was 180 systolic so she came in to get checked out.. 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 - Social history:: Smoking status: Patient reports the use of cigarette tobacco products, smokes one pack cigarettes per day. ROS: 10:20 Constitutional: Negative for fever, chills, and weight loss, Respiratory: Negative for kb shortness of breath, cough, wheezing, and pleuritic chest pain, Abdomen/GI: Negative for abdominal pain, nausea, vomiting, diarrhea, and constipation, MS/Extremity: Negative for injury and deformity, Skin: Negative for injury, rash, and discoloration. 10:20 Cardiovascular: Positive for chest pain, Negative for edema, orthopnea, palpitations, paroxysmal nocturnal dyspnea. 10:20 Neuro: Positive for dizziness, headache. Exam: 10:19 Constitutional: This is a well developed, well nourished patient who is awake, alert, kb and in no acute distress. Head/Face: Normocephalic, atraumatic. Cardiovascular: Regular rate and rhythm with a normal S1 and S2. No gallops, murmurs, or rubs. No pulse deficits. Respiratory: Respirations even and unlabored. No increased work of breathing, no retractions or nasal flaring. Abdomen/GI: Soft, non-tender. No distention Skin: Warm, dry with normal turgor. Normal color. MS/ Extremity: Pulses equal, no cyanosis. Neurovascular intact. Full, normal range of motion. Neuro: Awake and alert, GCS 15, oriented to person, place, time, and situation. Moves all extremities. Normal gait. 10:19 ECG was reviewed by the Attending Physician. Vital Signs: 09:27 BP 135 / 78; Pulse 74; Resp 16; Temp 97.6(TE); Pulse Ox 99% on R/A; Weight 83.91 kg; ss Height 5 ft. 8 in. (172.72 cm); Pain 4/10; 10:31 BP 110 / 60 Supine; Pulse 73; tw2 10:31 BP 118 / 73 Standing; Pulse 72; Resp 17; Pulse Ox 99% on R/A; tw2 10:31 BP 111 / 77 Sitting; Pulse 62; tw2 11:36 BP 107 / 62; Pulse 47; Resp 17; Pulse Ox 99% on R/A; tw2 12:31 BP 131 / 61; Pulse 41; Resp 16; Pulse Ox 97% on R/A; tw2 09:27 Body Mass Index 28.13 (83.91 kg, 172.72 cm) 10:31 pt reports "lightheaded when i stood up" tw2 MDM: 09:32 Patient medically screened. kb 10:20 Data reviewed: vital signs, nurses notes. Data interpreted: Pulse oximetry: on room air kb is 99 %. Interpretation: normal. 12:59 Counseling: I had a detailed discussion with the patient and/or guardian regarding: the kb historical points, exam findings, and any diagnostic results supporting the discharge/admit diagnosis, lab results, radiology results, the need for outpatient follow up, a centrifugal spinner, a family practitioner, to return to the emergency department if symptoms worsen or persist or if there are any questions or concerns that arise at home. 12/21 09:32 Order name: Basic Metabolic Panel; Complete Time: 10:19 kb 12/21 09:32 Order name: CBC with Diff; Complete Time: 10:03 kb 12/21 09:32 Order name: LFT's; Complete Time: 10:19 kb 12/21 09:32 Order name: Magnesium; Complete Time: 10:19 kb 12/21 09:32 Order name: NT PRO-BNP; Complete Time: 10:19 kb 12/21 09:32 Order name: PT-INR; Complete Time: 10:03 kb 12/21 09:32 Order name: Troponin (emerg Dept Use Only); Complete Time: 10:19 kb 12/21 09:32 Order name: XRAY Chest (1 view); Complete Time: 11:03 kb 12/21 09:32 Order name: EKG; Complete Time: 09:34 kb 12/21 10:39 Order name: Urine Dipstick-Ancillary; Complete Time: 11:03 EDMS 12/21 10:39 Order name: Urine --Ancillary (enter results); Complete Time: 11:03 bd 12/21 12:04 Order name: EKG; Complete Time: 12:05 kb 12/21 12:04 Order name: Troponin (emerg Dept Use Only); Complete Time: 12:59 kb 12/21 09:32 Order name: Cardiac monitoring; Complete Time: 09:50 kb 12/21 09:32 Order name: EKG - Nurse/Tech; Complete Time: 09:50 kb 12/21 09:32 Order name: IV Saline Lock; Complete Time: 09:50 kb 12/21 09:32 Order name: Labs collected and sent; Complete Time: 09:50 kb 12/21 09:32 Order name: O2 Per Protocol; Complete Time: 09:38 kb 12/21 09:32 Order name: O2 Sat Monitoring; Complete Time: 09:38 kb 12/21 10:19 Order name: Urine Dipstick-Ancillary (obtain specimen); Complete Time: 10:41 kb 12/21 10:19 Order name: Orthostatics; Complete Time: 10:30 kb 12/21 12:04 Order name: EKG - Nurse/Tech; Complete Time: 12:31 kb EC:19 Rate is 52 beats/min. Rhythm is regular. QRS [place] is Normal. GA interval is normal at kb 150 msec. QRS interval is normal at 84 msec. QT interval is normal at 412 msec. Administered Medications: 09:50 Drug: Tylenol 1000 mg Route: PO; tw2 10:41 Follow up: Response: No adverse reaction tw2 Disposition: 12/21/20 13:00 Discharged to Home. Impression: Chest pain, unspecified. - Condition is Stable. - Discharge Instructions: Nonspecific Chest Pain, [id number]. - Medication Reconciliation Form, Thank You Letter, Antibiotic Education, Prescription Opioid Use, Work release form form. - Follow up: Emergency Department; When: As needed; Reason: Worsening of condition. Follow up: Private Physician; When: 2 - 3 days; Reason: Recheck today's complaints, Continuance of care, Re-evaluation by your physician. Addendum: 12/24/2020 06:14 Co-signature as Attending Physician, Guera Mccarty MD. m a2 Signatures: Dispatcher [employer] Reva Greer, MOISES-C MOISES-Fabiola Kemp RN RN Maggi Collier RN RN tw2 Guera Mccarty MD MD ma2 Corrections: (The following items were deleted from the chart) 12/21 10:21 10:20 Neuro: Positive for headache, kb kb 13:08 13:00 12/21/2020 13:00 Discharged to Home. Impression: Chest pain, unspecified. tw2 Condition is Stable. Forms are Work release form, Medication Reconciliation Form, Thank You Letter, Antibiotic Education, Prescription Opioid Use. Follow up: Emergency Department; When: As needed; Reason: Worsening of condition. Follow up: Private Physician; When: 2 - 3 days; Reason: Recheck today's complaints, Continuance of care, Re-evaluation by your physician. kb
--- NOTE | 2020-12-21 13:00 | ER ---
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 My chest ss started hurting all of a sudden. I got a headache, sweaty and dizzy and they said my blood pressure was high." PT reports she is feeling a little better now, but still has some chest discomfort and a headache. Coronavirus screen: Client denies travel out of the [place] in the last 14 days. Ebola Screen: Patient denies exposure to infectious person. Patient denies travel to an Ebola-affected area in the 21 days before illness onset. Initial Sepsis Screen: Does the patient meet any 2 criteria? No. Patient's initial sepsis screen is negative. Does the patient have a suspected source of infection? No. Patient's initial sepsis screen is negative. Risk Assessment: Do you want to hurt yourself or someone else? Patient reports no desire to harm self or others. Onset of symptoms was December 21, 2020. 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 - Social history:: Smoking status: Patient reports the use of cigarette tobacco products, smokes one pack cigarettes per day. Screenin:52 Abuse screen: Denies threats or abuse. Nutritional screening: No deficits noted. tw2 Tuberculosis screening: No symptoms or risk factors identified. Fall Risk None identified. Assessment: 09:54 General: Appears in no apparent distress. Behavior is calm, cooperative, appropriate tw2 for age. Pain: Complains of pain in chest Pain does not radiate. Pain began suddenly. Neuro: Level of Consciousness is awake, alert, obeys commands, Oriented to person, place, time, situation. Cardiovascular: Capillary refill < 3 seconds Patient's skin is warm and dry. Respiratory: Airway is patent Respiratory effort is even, unlabored, Respiratory pattern is regular, symmetrical. GI: No signs and/or symptoms were reported involving the gastrointestinal system. : No signs and/or symptoms were reported regarding the genitourinary system. Musculoskeletal: Range of motion: intact in all extremities. 10:41 Reassessment: Patient appears in no apparent distress at this time. No changes from tw2 previously documented assessment. Patient and/or family updated on plan of care and expected duration. Pain level reassessed. Patient is alert, oriented x 3, equal unlabored respirations, skin warm/dry/pink. 11:37 Reassessment: Patient appears in no apparent distress at this time. No changes from tw2 previously documented assessment. Patient and/or family updated on plan of care and expected duration. Pain level reassessed. Patient is alert, oriented x 3, equal unlabored respirations, skin warm/dry/pink. 12:32 Reassessment: Patient appears in no apparent distress at this time. No changes from tw2 previously documented assessment. Patient and/or family updated on plan of care and expected duration. Pain level reassessed. Patient is alert, oriented x 3, equal unlabored respirations, skin warm/dry/pink. pt appeared to be sleeping upon entry into room. 13:08 Reassessment: Patient appears in no apparent distress at this time. No changes from tw2 previously documented assessment. Patient and/or family updated on plan of care and expected duration. Pain level reassessed. Patient is alert, oriented x 3, equal unlabored respirations, skin warm/dry/pink. Vital Signs: 09:27 BP 135 / 78; Pulse 74; Resp 16; Temp 97.6(TE); Pulse Ox 99% on R/A; Weight 83.91 kg; ss Height 5 ft. 8 in. (172.72 cm); Pain 4/10; 10:31 BP 110 / 60 Supine; Pulse 73; tw2 10:31 BP 118 / 73 Standing; Pulse 72; Resp 17; Pulse Ox 99% on R/A; tw2 10:31 BP 111 / 77 Sitting; Pulse 62; tw2 11:36 BP 107 / 62; Pulse 47; Resp 17; Pulse Ox 99% on R/A; tw2 12:31 BP 131 / 61; Pulse 41; Resp 16; Pulse Ox 97% on R/A; tw2 09:27 Body Mass Index 28.13 (83.91 kg, 172.72 cm) ss 10:31 pt reports "lightheaded when i stood up" tw2 ED Course: 09:24 Patient arrived in ED. mr 09:29 Triage completed. ss 09:29 Arm band placed on right wrist. ss 09:30 Bed in low position. Call light in reach. credit card associate on. Pulse ox on. NIBP on. tw2 Warm blanket given. 09:32 Reva Morales FNP-C is PHCP. kb 09:32 Guera Mccarty MD is Attending Physician. kb 09:38 Maggi Collier, JONY is Primary Nurse. tw2 09:43 Radiology exam delayed due to RN IN ROOM AT THIS TIME, CHECK BACK IN 10 MINUTES. mh1 09:47 Inserted saline lock: 20 gauge in right antecubital area, using aseptic technique. tw2 Blood collected. 09:52 Patient maintains SpO2 saturation greater than 95% on room air. tw2 10:15 XRAY Chest (1 view) In Process Unspecified. EDMS 12:31 Troponin (emerg Dept Use Only) Sent. tw2 13:07 No provider procedures requiring assistance completed. IV discontinued, intact, tw2 bleeding controlled, No redness/swelling at site. Pressure dressing applied. Administered Medications: 09:50 Drug: Tylenol 1000 mg Route: PO; tw2 10:41 Follow up: Response: No adverse reaction tw2 Outcome: 13:00 Discharge ordered by . kb 13:07 Discharged to home ambulatory. tw2 13:07 Condition: stable 13:07 Discharge instructions given to patient, Instructed on discharge instructions, follow up and referral plans. Demonstrated understanding of instructions, follow-up care. 13:08 Patient left the ED. tw2 Signatures: Dispatcher [employer] EDMS Reva Morales, DIEGOC MOISES-Belinda Stokes mr SandeepCindi 1 Fabiola Maxwell, JONY RN ss Maggi Collier RN RN tw2
[2020-12-21 13:20] VITALS: TEMP 97.6
[2020-12-21 13:41] VITALS: BP 131/61; O2SAT 97
--- NOTE | 2020-12-22 11:20 | EKG ---
Test Date: 2020-12-21 Test Time: 12:24:12 Acid Mixer: ZAIN MEASUREMENT RESULTS: Intervals: Rate: 47 MS: 168 QRSD: 88 QT: 450 QTc: 398 [place]: P: 51 MS: 168 QRS: 72 T: 47 INTERPRETIVE STATEMENTS: Sinus bradycardia Otherwise normal ECG Compared to ECG 12/21/2020 09:42:35 No significant changes Electronically Signed On 12-22-20 11:17:19 CDT by Rocky Sutton
--- NOTE | 2020-12-22 11:21 | EKG ---
Test Date: 2020-12-21 Test Time: 09:42:35 Under Ground Miner: VINEET MEASUREMENT RESULTS: Intervals: Rate: 52 RI: 150 QRSD: 84 QT: 412 QTc: 383 [place]: P: 29 RI: 150 QRS: 78 T: 36 INTERPRETIVE STATEMENTS: Sinus bradycardia Otherwise normal ECG Compared to ECG 09/02/2019 18:24:03 Sinus rhythm no longer present T-wave abnormality no longer present Electronically Signed On 12-22-20 11:17:24 CDT by Rocky Sutton
== END 2020-12-21 13:08 | disposition home or self-care (01) ==
LOC: ER 09:21
DX: R07.9 Chest pain, unspecified (principal); F31.9 Bipolar disorder, unspecified; F90.9 Attention-deficit hyperactivity disorder, unspecified type; F17.210 Nicotine dependence, cigarettes, uncomplicated; Z88.1 Allergy status to other antibiotic agents; Z88.8 Allergy status to other drugs, medicaments and biological substances; Z89.512 Acquired absence of left leg below knee
CPT/HCPCS: 36415; 71045; 80048; 80076; 81003; 81025; 83735; 83880; 84484; 85025; 85610; 93005; 99285

== ENCOUNTER 2021-01-20 17:13 | Emergency (ER) | payer SELFPAY ==
--- OUTSIDE RECORDS SUMMARY | 2021-01-20 17:17 | XMS REPORT | Continuity of Care Document ---
:1985 Author Organization [facility] t Address [address] [place] [address] Care Team Providers Name Role Phone Freddy [...] Date Source Maternal aunt Coronary artery [facility] Maternal grandmother Coronary artery [facility] Natural mother Coronary artery [facility] Natural brother Diabetes [facility] alth Social History Social Habit Start Date Stop Date Quantity Comments Source History of tobacco Cigarette Smoker [facility] use Tobacco use and 2017-07-16 2017-07-[address] [facility] Cigarettes smoked 2017-07-16 2017-07-[address] [facility] - current (pack per 00:00:00 00:00:00 [facility] day) - Reported Alcohol intake 2017-04-09 2017-04-09 Current [place] 00:00:00 00:00:00 non-drinker of [facility] alcohol (finding) Cigarette 2015-04-20 2015-04-20 [facility] pack-years 00:00:00 00:00:00 Alcohol Comment 2015-04-16 2015-04-16 last drink 02/2015 [facility] [facility] 00:00:00 00:00:00 Sex Ass[birth year] [place] 00:00:00 00:00:00 [place] Smoking Status Start Date Stop Date Source Current every day smoker 2017-07-16 00:00:[address] [facility] Never smoker [place] [facility] Medications Ordered Filled Start Stop Current Ordering Indication Dosage Frequency Signature Comments Components Source Medication Medication Date Date Medication? Clinician (SIG) Name Name DULoxetine 2016-08 Yes anxiety 30mg QD Take [address] [facility] (CYMBALTA) 1-26 with by [facility] - 30 MG [...] MG 15:00: mouth Medical tablet 29 nightly. [place] ARIPiprazol 2016-08 Yes 15mg QD Take [address] [facility] (ABILIFY) 1-26 by mouth Luke s - 15 MG 15:00: nightly. Medical tablet 29 Center ibuprofen Yes Tooth 800mg Take 4 Anette is (MOTRIN) 8-31 infection tablets by [employer] 200 mg 00:00: mouth tablet 00 every 6 hours as needed for Pain. ARIPIPRAZOL Yes Take by Benjamín ris E (ABILIFY 04-16 mouth. Health OR) 13:48: 28 DULOXETINE Yes Take by Anette is HCL 04-16 mouth. Health (CYMBALTA 13:48: OR) 28 TOPIRAMATE Yes Take by Anette is (TOPAMAX 8- mouth. Health OR) 13:48: 28 TRAZODONE Yes Take by Anettei s HCL - mouth. Health (TRAZODONE 13:48: OR) 28 PROPRANOLOL Yes Take by Benjamín ris HCL 8- mouth. Health (PROPRANOLO 13:48: L OR) 28 HYDROXYZINE Yes Take by Benjamín ris HCL OR - mouth. Health 13:48: 28 budesonide- Yes Unspecified 2{puff} Q.5D Inhale 2 Krishnamurthy formoterol 04-16 chronic Puffs by maxim (SYMBICORT) 00:00: bronchitis mouth 2 80-4.5 00 times mcg/actuati daily on inhaler Rinse mouth after each use.. Procedures This patient has no known procedures. Plan of Care Planned Activity Planned Date Details Comments Source Future Scheduled 2021-05-21 IMM Influenza Raghu Thompsona lt Test 00:00:00 Seasonal May to October (>/= 19 yrs) [code = IMM Influenza Seasonal May to October (>/= 19 yrs)] Future Scheduled 2021-03-21 INFLUENZA VACCINE Evangelista sanchez [facility] Test 00:00:00 [code = INFLUENZA VACCINE] Future Scheduled 2020-04-20 Screening for Raghu Hea lth Test 00:00:00 malignant neoplasm of cervix (procedure) [code = 100688869] Future Scheduled 2015 Screening for Krishnamurthy [facility] lth Test 00:00:00 malignant neoplasm of cervix (procedure) [code = 855311982] Future Scheduled 2006 Screening for [facility]odist Test 00:00:00 malignant neoplasm of cervix (procedure) [code = 264086136] Future Scheduled 2001 COVID-19 Vaccine (1) [facility] Test 00:00:00 [code = COVID-19 Vaccine (1)] Future Scheduled 1997 COVID-19 VACCINE (1) Carie Willett Test 00:00:00 [code = COVID-19 VACCINE (1)] Encounters Start End Encounter Admission Attending Care Care Encounter Source Date/Time Date/Time Type Type Clinicians Facility Department ID 2020-04-29 2020-04-29 [id number] 10:44:00 14:30:00 Linn Smith [id number] [place] [id number] [place] [id number] 2020-04-29 2020-04-29 Orders Doctor ANTHONY [id number] 00:00:00 00:00:00 Only Unassigned, LINDA [id number] [place] [facility] [id number] 2019-04-14 2019-04-14 [facility] [id number] 17:25:25 17:58:00 Ad Smith [id number] [place] [id number] [place] [id number] 2019-03-18 2019-03-18 Emergency Vonda Allen [facility] [id number] 22:34:35 23:51:00 Maribel Smith [id number] [place] [id number] [place] [id number] 2017-04-09 2017-04-09 Emergency [facility] [id number] Krishnamurthy 00:00:00 00:00:00 Health 2017-04-09 2017-04-09 Emergency [facility] [id number] Krishnamurthy 00:00:00 00:00:00 Health 2017-04-08 2017-04-08 Emergency [facility] [id number] Krishnamurthy 22:35:00 22:35:00 Health 2017-04-08 2017-04-08 Emergency [facility] [id number] Krishnamurthy 00:00:00 00:00:00 Health Results Test Description Test Time Test Comments Results Result Comments Source HEMOGLOBIN A1C 2017-07-16 13:26:00 Test Item Value Reference Range Interpretation Comme nts HEMOGLOBIN A1C (BEAKER) (test code = 368) 5.2 % 4.3-6.1 CBC W/PLT COUNT & AUTO [id number] 09:42:00 Test Item Value Reference Range Interpretation [...] (test code Normal = 762) BASIC METABOLIC [id number] 07:11:00 Test Item Value Reference Range Interpretation [...] NOT APPLICABLE FOR DIALYSIS PATIEN TS. LIPID [id number] 07:11:00 Test Item Value Reference Range Interpretation [...] 100-129 Borderline 130-159 High 160-189 Very High [id number] 07:11:00 Test Item Value Reference Range Interpretation Comments MAGNESIUM (KRISTI) (test code = 1.5 mg/dL 1.6-2.6 L 627) TROPONIN [id number] 06:34:00 Test Item Value Reference Range Interpretation [...] acidosis, acute neurological disease, and persistent tachyarrhythmia.TROPONIN [id number] 23:58:00 Test Item Value Reference Range Interpretation [...]
--- NOTE | 2021-01-20 19:53 | EDPHYS ---
Physician Documentation [facility] Name: Natasha Spann Age: 35 yrs Sex: Female : 1985 Arrival Date: 01/20/2021 Time: 17:16 Bed 13 Private MD: ED Physician Historical: - Allergies: 01/20 17:58 bupropion HCl; ph 17:58 Levofloxacin; ph 17:58 Wellbutrin; ph Vital Signs: 17:56 BP 121 / 86; Pulse 60; Resp 18; Temp 97.9; Pulse Ox 98% on R/A; Weight 90.72 kg; Height ph 5 ft. 8 in. (172.72 cm); 17:56 Body Mass Index 30.41 (90.72 kg, 172.72 cm) ph Administered Medications: No medications were administered Disposition: 01/20/21 19:52 Patient left the facility before being seen by provider. - Patient left due to unknown. Signatures: Anastasia Patel RN RN Gregor Recio MD MD rn Hall, Patricia, RN RN ph Corrections: (The following items were deleted from the chart) 19:52 19:51 Patient medically screened. rn rn 19:52 19:52 01/20/2021 19:52 Patient left the facility before being seen by provider. Reason iw stated they are leaving due to unknown. iw
--- NOTE | 2021-01-20 19:53 | ER ---
Nurse's Notes [facility] Name: Natasha Spann Age: 35 yrs Sex: Female : 1985 Arrival Date: 01/20/2021 Time: 17:16 Bed 13 Private MD: Diagnosis: Presentation: 01/20 17:53 Chief complaint:. ph 17:56 Chief complaint: Patient states: Pt w/ L BKA, reports wound to stump x 1 month that she ph thinks is infected, denies fever, N/V. Coronavirus screen: Client denies travel out of the [place] in the last 14 days. Ebola Screen: No symptoms or risks identified at this time. Initial Sepsis Screen: Does the patient meet any 2 criteria? No. Patient's initial sepsis screen is negative. Does the patient have a suspected source of infection? Yes: Skin breakdown/wound. Risk Assessment: Do you want to hurt yourself or someone else? Patient reports no desire to harm self or others. Onset of symptoms was January 20, 2021. 17:56 Method Of Arrival: Ambulatory ph 17:56 Acuity: EMILY 3 ph Historical: - Allergies: 17:58 bupropion HCl; ph 17:58 Levofloxacin; ph 17:58 Wellbutrin; ph Vital Signs: 17:56 BP 121 / 86; Pulse 60; Resp 18; Temp 97.9; Pulse Ox 98% on R/A; Weight 90.72 kg; Height ph 5 ft. 8 in. (172.72 cm); 17:56 Body Mass Index 30.41 (90.72 kg, 172.72 cm) ph ED Course: 17:16 Patient arrived in ED. as 17:58 Triage completed. ph 17:58 Arm band placed on Patient placed in waiting room, Patient notified of wait time. ph 19:51 Gregor Santo MD is Attending Physician. rn Administered Medications: No medications were administered Outcome: 19:52 Patient left the ED. iw Signatures: Hailey Yadav Irene, RN RN Gregor Santo MD MD rn Hall, Patricia, RN RN ph
[2021-01-20 20:03] VITALS: BP 121/86; TEMP 97.9; O2SAT 98
== END 2021-01-20 19:52 | disposition left against medical advice (07) ==
LOC: ER 17:13
DX: Z02.9 Encounter for administrative examinations, unspecified (principal)
CPT/HCPCS: 99281

== ENCOUNTER 2021-02-06 10:55 | Emergency (ER) | payer SELFPAY ==
--- OUTSIDE RECORDS SUMMARY | 2021-02-06 10:58 | XMS REPORT | Continuity of Care Document ---
:1985 Author Organization [facility] t Address [address] [place] [address] Care Team Providers Name Role Phone Freddy [...] Source Maternal aunt Coronary artery [facility] Maternal grandmother Coronary artery [facility] Natural mother Coronary artery [facility] Natural brother Diabetes Krishnamurthy He [...] 2017-04-09 Current [place] 00:00:00 00:00:00 non-drinker of Gnosticism alcohol (finding) Cigarette 2015-04-20 2015-04-20 [facility] pack-years 00:00:00 00:00:00 Alcohol Comment 2015-04-16 2015-04-16 last drink 02/2015 [facility] 00:00:00 00:00:00 Sex [birth year] [place] 00:00:00 00:00:00 Gnosticism Smoking Status Start Date Stop Date Source Current every day smoker 2017-07-16 00:00:[address] [facility] Never smoker [place] Methodis t Medications Ordered Filled Start Stop [...] MG 15:00: mouth Medical tablet 29 nightly. [place] ARIPiprazol 2016-08 Yes 15mg QD Take [address] [address] [facility] (ABILIFY) 1-26 by mouth Luke s - 15 MG 15:00: nightly. Medical tablet 29 Center ibuprofen Yes Tooth 800mg Take 4 Anette is (MOTRIN) 8-31 infection tablets by [facility] 200 mg 00:00: mouth tablet 00 every 6 hours as needed for Pain. ARIPIPRAZOL Yes Take by Benjamín ris E (ABILIFY 04-16 mouth. Health OR) 13:48: 28 DULOXETINE Yes Take by Anette is HCL 04-16 mouth. Health (CYMBALTA 13:48: OR) 28 TOPIRAMATE Yes Take by Anette is (TOPAMAX 8- mouth. Health OR) 13:48: 28 TRAZODONE Yes Take by Anettei s HCL 8- mouth. Health (TRAZODONE 13:48: OR) 28 PROPRANOLOL [...] Future Scheduled 2021-03-21 INFLUENZA VACCINE Evangelista sanchez Gnosticism Test 00:00:00 [code = INFLUENZA VACCINE] Future Scheduled 2020-04-20 Screening for Raghu [facility] Test 00:00:00 malignant neoplasm of cervix (procedure) [code = 333498216] Future Scheduled 2015 Screening for Raghu Thompsona lth Test 00:00:00 malignant neoplasm of cervix (procedure) [code = 916205118] Future Scheduled 2006 Screening for [place] [facility] Test 00:00:00 malignant neoplasm of cervix (procedure) [code = 798261614] Future Scheduled 1997 COVID-19 VACCINE (1) Carie may [facility] Test 00:00:00 [code = COVID-19 VACCINE (1)] Future Scheduled 1997 COVID-19 Vaccine (1) [facility] Test 00:00:00 [code = COVID-19 Vaccine (1)] Encounters Start End Encounter Admission Attending Care Care Encounter Source Date/Time Date/Time Type Type Clinicians Facility Department ID 2020-04-29 2020-04-29 [facility] [id number] 10:44:00 14:30:00 Linn Smith [id number] [place] [id number] [place] [id number] 2020-04-29 2020-04-29 Orders Doctor ANTHONY [id number] 00:00:00 00:00:00 Only Unassigned, LINDA [id number] [place] [facility] [id number] 2019-04-14 2019-04-14 [facility] [id number] 17:25:25 17:58:00 Ad Smith [id number] [place] [id number] [place] [id number] 2019-03-18 2019-03-18 Emergency Vonda Allen [facility] [id number] 22:34:35 23:51:00 Maribel Smith [id number] [place] [id number] [place] [id number] 2017-04-09 2017-04-09 Emergency [facility] [id number] Krishnamurthy 00:00:00 00:00:00 Health 2017-04-09 2017-04-09 Emergency [facility] [id number] Krishnamurthy 00:00:00 00:00:00 Health 2017-04-08 2017-04-08 Emergency [facility] [id number] Krishnamurthy 22:35:00 22:35:00 Health 2017-04-08 2017-04-08 Emergency [facility] [id number] Krishnamurthy 00:00:00 00:00:00 Health Results Test Description Test Time Test Comments Results Result Comments Source HEMOGLOBIN A1C 2017-07-16 13:26:00 Test Item Value Reference Range Interpretation Comme nts HEMOGLOBIN A1C (BEAKER) (test code = 368) 5.2 % 4.3-6.1 CBC W/PLT COUNT & AUTO [id number] 09:42:00 Test Item Value Reference Range Interpretation [...] (test code Normal = 762) BASIC METABOLIC [id number] 07:11:00 Test Item Value Reference Range Interpretation [...] NOT APPLICABLE FOR DIALYSIS PATIEN TS. LIPID [id number] 07:11:00 Test Item Value Reference Range Interpretation [...] 100-129 Borderline 130-159 High 160-189 Very High [id number] 07:11:00 Test Item Value Reference Range Interpretation Comments MAGNESIUM (KRISTI) (test code = 1.5 mg/dL 1.6-2.6 L 627) TROPONIN [id number] 06:34:00 Test Item Value Reference Range Interpretation [...] acidosis, acute neurological disease, and persistent tachyarrhythmia.TROPONIN [id number] 23:58:00 Test Item Value Reference Range Interpretation [...]
[2021-02-06 11:29] LABS: Urine Blood Negative (Negative); Urine Glucose Negative (Negative); Urine Protein Negative (Negative)
[2021-02-06 11:59] LABS: Absolute Lymphocytes (CBC) 4.3 K/uL (0.7-4.9); Basophils % 0.8 % (0-1.3); Hematocrit 37.5 % (36.0-45.0); Lymphocytes % 32.1 % (15.3-44.8); MPV 7.9 fL (7.6-11.3); RBC Red Blood Cell Count 4.04 M/uL (3.86-4.86)
[2021-02-06] MEDS ORDERED: ONDANSETRON 4 MG/2 ML VIAL ONE (12:05)
[2021-02-06] MEDS ORDERED: MORPHINE 4 MG/ML SYR ONE (12:05)
[2021-02-06] MEDS ORDERED: NA CHLORIDE 0.9% 1,000 ML ONE (12:05)
--- NOTE | 2021-02-06 12:14 | RAD REPORT ---
EXAM DESCRIPTION: CT - Abdomen Pelvis W Contrast - 02/06/2021 11:58 am CLINICAL HISTORY: Abdominal pain COMPARISON: October 2020 TECHNIQUE: Computed axial tomography of the abdomen pelvis was obtained. 100 cc Isovue-300 was admin istered intravenously. Oral contrast was not requested which limits evaluation of bowel. All CT scans are performed using dose optimization technique as appropriate and may include automated exposure control or mA/KV adjustment according to patient size. FINDINGS: The liver, spleen, pancreas, adrenal and kidneys appear unremarkable. Bladder wall appears mildly thickened There is no evidence of diverticulitis. Normal appendix. Small duodenal diverticulum Tampon is present within vagina. Retroverted uterus. Small umbilical hernia IMPRESSION: Mild bladder wall thickening may indicate cystitis
[2021-02-06 12:41] LABS: ALT/SGPT 21 U/L (12-78); AST/SGOT 13 U/L (15-37); Albumin 3.4 g/dL (3.4-5.0); Alkaline Phosphatase 82 U/L (45-117); BUN Blood Urea Nitrogen 5 mg/dL (7-18); Bicarbonate 25 mmol/L (21-32); Bilirubin Direct < 0.1 mg/dL (0-0.2); Bilirubin Total 0.2 mg/dL (0.2-1.0); Glucose Level 83 mg/dL (74-106); Lipase 88 U/L (73-393); Protein, Total 6.6 g/dL (6.4-8.2); Sodium Level 139 mmol/L (136-145)
[2021-02-06] MEDS ORDERED: KETOROLAC 30 MG/ML INJ ONE (13:08)
[2021-02-06 13:58] LABS: Urine Bacteria <20 /HPF (<20); Urine RBC <5 /HPF (NONE SEEN)
[2021-02-06] MEDS ORDERED: CEFTRIAXONE/SWI 1gm 1 GM/10 ML SYR ONE (14:04)
[2021-02-06] MEDS ORDERED: NA CHLORIDE 0.9% 50 ML ONE (14:05)
--- NOTE | 2021-02-06 14:19 | ER ---
Nurse's Notes [facility] Name: Natasha Spann Age: 35 yrs Sex: Female : 1985 Arrival Date: 02/06/2021 Time: 10:57 Bed 5 Private MD: Diagnosis: Cystitis, unspecified Presentation: 02/06 11:10 Chief complaint: Mid back pain that wraps around to abdomen, urinary urgency and hb frequency, and urinary incontinence x 1 month, worse over last week. Coronavirus screen: At this time, the client does not indicate any symptoms associated with coronavirus-19. Ebola Screen: No symptoms or risks identified at this time. Initial Sepsis Screen: Does the patient meet any 2 criteria? No. Patient's initial sepsis screen is negative. Does the patient have a suspected source of infection? No. Patient's initial sepsis screen is negative. Risk Assessment: Do you want to hurt yourself or someone else? Patient reports no desire to harm self or others. Onset of symptoms is unknown. 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 - Social history:: Smoking status: Patient reports the use of cigarette tobacco products, smokes one pack cigarettes per day. Screenin:22 Abuse screen: Denies threats or abuse. Nutritional screening: No deficits noted. jd3 Tuberculosis screening: No symptoms or risk factors identified. Fall Risk Ambulatory Aid- None/Bed Rest/Nurse Assist (0 pts). Gait- Normal/Bed Rest/Wheelchair (0 pts) Mental Status- Oriented to own ability (0 pts). Total Steve Fall Scale indicates No Risk (0-24 pts). Assessment: 11:20 General: Appears in no apparent distress. comfortable, Behavior is calm, cooperative, jd3 appropriate for age. Pain: Complains of pain in abdomen Quality of pain is described as crampy. Neuro: Level of Consciousness is awake, alert, obeys commands, Oriented to person, place, time, situation. Cardiovascular: Denies chest pain, Capillary refill < 3 seconds Patient's skin is warm and dry. Respiratory: Airway is patent Respiratory effort is even, unlabored, Respiratory pattern is regular, symmetrical, Denies cough, shortness of breath. GI: Reports lower abdominal pain. : Reports urinary frequency. EENT: No signs and/or symptoms were reported regarding the EENT system. Derm: Skin is intact, Skin is dry, Skin is normal, Skin temperature is warm. Musculoskeletal: Circulation, motion, and sensation intact. Range of motion: intact in all extremities. 12:16 Reassessment: Patient appears in no apparent distress at this time. No changes from jd3 previously documented assessment. Patient and/or family updated on plan of care and expected duration. Pain level reassessed. Patient is alert, oriented x 3, equal unlabored respirations, skin warm/dry/pink. 13:16 Reassessment: Patient appears in no apparent distress at this time. No changes from jd3 previously documented assessment. Patient and/or family updated on plan of care and expected duration. Pain level reassessed. Patient is alert, oriented x 3, equal unlabored respirations, skin warm/dry/pink. Vital Signs: 11:10 BP 122 / 75; Pulse 87; Resp 16; Temp 98.1; Pulse Ox 100% on R/A; Weight 87.09 kg; hb Height 5 ft. 8 in. (172.72 cm); Pain 7/10; 11:10 Body Mass Index 29.19 (87.09 kg, 172.72 cm) hb ED Course: 10:57 Patient arrived in ED. ds1 11:12 Triage completed. hb 11:13 Arm band placed on. hb 11:14 Jamal Rodas NP is PHCP. pm1 11:14 Guera Mccarty MD is Attending Physician. pm1 11:15 Berkowitz, Blair, RN is Primary Nurse. jd3 11:22 Patient has correct armband on for positive identification. Bed in low position. Call jd3 light in reach. Side rails up X 1. Adult w/ patient. Pulse ox on. NIBP on. 11:50 Inserted saline lock: 22 gauge in right upper arm, using aseptic technique. Blood jd3 collected. 11:58 CT Abd/Pelvis - IV Contrast Only In Process Unspecified. EDMS 14:30 Jean Segovia MD is Referral Physician. pm1 14:50 No provider procedures requiring assistance completed. IV discontinued, intact, jd3 bleeding controlled, No redness/swelling at site. Pressure dressing applied. Administered Medications: 11:49 Drug: NS 0.9% 1000 ml Route: IV; Rate: 1000 ml; Site: right upper arm; jd3 12:40 Follow up: Response: No adverse reaction; IV Status: Completed infusion; IV Intake: jd3 1000ml 11:49 Drug: morphine 4 mg Route: IVP; Site: right upper arm; jd3 12:40 Follow up: Response: No adverse reaction; RASS: Alert and Calm (0) jd3 11:50 Drug: Zofran (Ondansetron) 4 mg Route: IVP; Site: right upper arm; jd3 12:50 Follow up: Response: No adverse reaction jd3 12:52 Drug: TORadol (ketorolac) 30 mg Route: IVP; Site: right upper arm; jd3 13:50 Follow up: Response: No adverse reaction jd3 13:48 Drug: Rocephin (cefTRIAXone) 1 grams Route: IV; Rate: calculated rate; Site: right [facility] upper arm; 14:40 Follow up: Response: No adverse reaction; IV Status: Completed infusion jd3 14:45 Drug: AZITHromycin 1 grams Route: PO; ph 14:50 Follow up: Response: Medication administered at discharge. jd3 Intake: 12:40 IV: 1000ml; Total: 1000ml. jd3 Outcome: 14:19 Discharge ordered by . pm1 14:50 Discharged to home ambulatory, with family. jd3 14:50 Condition: stable 14:50 Discharge instructions given to patient, Instructed on discharge instructions, follow up and referral plans. medication usage, Demonstrated understanding of instructions, follow-up care, medications, Prescriptions given X 1. 14:55 Patient left the ED. ss Signatures: Dispatcher Training Intelligence [facility], Kaci ds1 Fabiola Maxwell RN RN ss Sylvia Wall RN RN ph Jamal Rodas, REMIGIO BROOMMAKER pm1 Vania Kilgore RN RN Blair Yo RN RN jd3 Corrections: (The following items were deleted from the chart) 15:23 14:50 Discharge instructions given to patient, Instructed on discharge instructions, jd3 follow up and referral plans. medication usage, Demonstrated understanding of instructions, follow-up care, medications, Prescriptions given X jd3
--- NOTE | 2021-02-06 14:20 | EDPHYS ---
Physician Documentation [facility] Name: Natasha Spann Age: 35 yrs Sex: Female : 1985 Arrival Date: 02/06/2021 Time: 10:57 Bed 5 Private MD: ED Physician Guera Mccarty HPI: 02/06 12:06 This 35 yrs old Female presents to ER via Ambulatory with complaints of pm1 Urinary Frequency, Back Pain. 12:06 The patient presents with flank pain, bilaterally, urinary symptoms, frequency. Onset: pm1 The symptoms/episode began/occurred 1 month(s) ago. Modifying factors: The symptoms are alleviated by nothing, the symptoms are aggravated by nothing. Associated signs and symptoms: Pertinent positives: vaginal discharge, Has had discharge longer than 1 month, Pertinent negatives: diarrhea, fever, nausea, vomiting. Severity of symptoms: in the emergency department the symptoms are actually worse, past 1 week. The patient is sexually active, reports multiple partners. The patient's method of control includes nothing. The patient has not experienced similar symptoms in the past. The patient has not recently seen a physician. 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 - Social history:: Smoking status: Patient reports the use of cigarette tobacco products, smokes one pack cigarettes per day. ROS: 12:06 Positive for flank pain, urinary frequency, vaginal discharge. pm1 12:06 Constitutional: Negative for fever, chills, and weight loss, Eyes: Negative for injury, pain, redness, and discharge, ENT: Negative for injury, pain, and discharge, Neck: Negative for injury, pain, and swelling, Cardiovascular: Negative for chest pain, palpitations, and edema, Respiratory: Negative for shortness of breath, cough, wheezing, and pleuritic chest pain, Abdomen/GI: Negative for abdominal pain, nausea, vomiting, diarrhea, and constipation, MS/Extremity: Negative for injury and deformity, Skin: Negative for injury, rash, and discoloration. 12:06 Neuro: Negative for headache, weakness, numbness, tingling, and seizure. 12:06 Back: Positive for flank pain, bilaterally. Exam: 12:06 Constitutional: This is a well developed, well nourished patient who is awake, alert, pm1 and in no acute distress. Head/Face: Normocephalic, atraumatic. 12:06 Back: No spinal tenderness. No costovertebral tenderness. Full range of motion. 12:06 Skin: Warm, dry with normal turgor. Normal color with no rashes, no lesions, and no evidence of cellulitis. MS/ Extremity: Pulses equal, no cyanosis. Neurovascular intact. Full, normal range of motion. 12:06 Eyes: Exam is negative for acute changes, Extraocular movements: no acute changes, Conjunctiva: normal. 12:06 ENT: Exam is negative for acute changes, Mouth: Lips: normal, Oral mucosa: normal, pink and intact, moist. 12:06 Cardiovascular: Rate: normal, Rhythm: regular, Pulses: no pulse deficits are appreciated, Edema: is not appreciated. 12:06 Respiratory: Exam negative for acute changes, respiratory distress, shortness of breath, Breath sounds: are clear throughout. 12:06 Abdomen/GI: Exam negative for acute changes, Inspection: abdomen appears normal, Palpation: abdomen is soft and non-tender, in all quadrants. 12:06 Neuro: Exam negative for acute changes, Orientation: is normal, Mentation: is normal, Motor: is normal, Sensation: is normal, no obvious gross deficits. Vital Signs: 11:10 BP 122 / 75; Pulse 87; Resp 16; Temp 98.1; Pulse Ox 100% on R/A; Weight 87.09 kg; hb Height 5 ft. 8 in. (172.72 cm); Pain 7/10; 11:10 Body Mass Index 29.19 (87.09 kg, 172.72 cm) hb MDM: 11:15 Patient medically screened. pm1 14:18 Data reviewed: vital signs. Data interpreted: Pulse oximetry: on room air is 100 %. pm1 Interpretation: normal. Counseling: I had a detailed discussion with the patient and/or guardian regarding: the historical points, exam findings, and any diagnostic results supporting the discharge/admit diagnosis, lab results, radiology results, the need for outpatient follow up, a urologist, to return to the emergency department if symptoms worsen or persist or if there are any questions or concerns that arise at home. 14:18 Differential diagnosis: UTI, interstitial cystitis, pyelonephritis, STI. 02/06 11:24 Order name: Basic Metabolic Panel [facility] 02/06 11:24 Order name: CBC with Diff 02/06 11:24 Order name: Hepatic Function [facility] 02/06 11:24 Order name: Lipase [facility] 02/06 11:24 Order name: Urine Microscopic Only; Complete Time: 14:16 pm02/06 11:25 Order name: Basic Metabolic Panel; Complete Time: 12:46 [facility] 02/06 11:24 Order name: CT Abd/Pelvis - IV Contrast Only; Complete Time: 12:25 pm02/06 11:25 Order name: CBC with Automated Diff; Complete Time: 12:25 [facility] 02/06 11:25 Order name: Liver (Hepatic) Function; Complete Time: 12:46 [facility] 02/06 11:25 Order name: Lipase; Complete Time: 12:46 [facility] 02/06 11:29 Order name: Urine Dipstick-Ancillary; Complete Time: 11:43 [facility] 02/06 11:30 Order name: Urine --Ancillary (enter results) bd 02/06 11:30 Order name: Urine --Ancillary; Complete Time: 11:43 [facility] 02/06 14:01 Order name: Urine Culture [facility] 02/06 11:24 Order name: IV Saline Lock; Complete Time: 11:50 pm02/06 11:24 Order name: Labs collected and sent; Complete Time: 11:50 pm 02/06 11:24 Order name: Urine Dipstick-Ancillary (obtain specimen); Complete Time: 11:31 pm02/06 11:24 Order name: Urine Test (obtain specimen); Complete Time: 11:31 pm1 Administered Medications: 11:49 Drug: NS 0.9% 1000 ml Route: IV; Rate: 1000 ml; Site: right upper arm; jd3 12:40 Follow up: Response: No adverse reaction; IV Status: Completed infusion; IV Intake: jd3 1000ml 11:49 Drug: morphine 4 mg Route: IVP; Site: right upper arm; jd3 12:40 Follow up: Response: No adverse reaction; RASS: Alert and Calm (0) jd3 11:50 Drug: Zofran (Ondansetron) 4 mg Route: IVP; Site: right upper arm; jd3 12:50 Follow up: Response: No adverse reaction jd3 12:52 Drug: TORadol (ketorolac) 30 mg Route: IVP; Site: right upper arm; jd3 13:50 Follow up: Response: No adverse reaction jd3 13:48 Drug: Rocephin (cefTRIAXone) 1 grams Route: IV; Rate: calculated rate; Site: right [facility] upper arm; 14:40 Follow up: Response: No adverse reaction; IV Status: Completed infusion jd3 14:45 Drug: AZITHromycin 1 grams Route: PO; ph 14:50 Follow up: Response: Medication administered at discharge. jd3 Disposition: 02/06/21 14:19 Discharged to Home. Impression: Cystitis, unspecified. - Condition is Stable. - Discharge Instructions: Urinary Tract Infection, Adult, Interstitial Cystitis. - Prescriptions for Keflex 500 mg Oral Capsule - take 1 capsule by ORAL route every 12 hours for 10 days; 20 capsule. - Medication Reconciliation Form, Thank You Letter, Antibiotic Education, Prescription Opioid Use form. - Follow up: Emergency Department; When: As needed; Reason: Worsening of condition. Follow up: Private Physician; When: 2 - 3 days; Reason: Recheck today's complaints, Continuance of care, Re-evaluation by your physician. Follow up: Jean Segovia MD; When: 2 - 3 days; Reason: Recheck today's complaints, Continuance of care, Re-evaluation by your physician. - Problem is new. - Symptoms have improved. Signatures: Dispatcher [employer] EDMS Fabiola Maxwell RN RN ss Sylvia Wall RN RN ph Jamal Rodas, ELECTRICAL CONSTRUCTION PROJECT MANAGER ELECTRICAL CONSTRUCTION PROJECT MANAGER pm1 Vania Kilgore RN RN Blair Berkowitz RN RN jd3 Corrections: (The following items were deleted from the chart) 14:30 14:19 02/06/2021 14:19 Discharged to Home. Impression: Cystitis, unspecified. Condition pm1 is Stable. Forms are Medication Reconciliation Form, Thank You Letter, Antibiotic Education, Prescription Opioid Use. Follow up: Emergency Department; When: As needed; Reason: Worsening of condition. Follow up: Private Physician; When: 2 - 3 days; Reason: Recheck today's complaints, Continuance of care, Re-evaluation by your physician. Problem is new. Symptoms have improved. pm1 14:55 14:30 02/06/2021 14:19 Discharged to Home. Impression: Cystitis, unspecified. Condition ss is Stable. Discharge Instructions: Urinary Tract Infection, Adult, Interstitial Cystitis. Forms are Medication Reconciliation Form, Thank You Letter, Antibiotic Education, Prescription Opioid Use. Follow up: Emergency Department; When: As needed; Reason: Worsening of condition. Follow up: Private Physician; When: 2 - 3 days; Reason: Recheck today's complaints, Continuance of care, Re-evaluation by your physician. Follow up: Jean Segovia; When: 2 - 3 days; Reason: Recheck today's complaints, Continuance of care, Re-evaluation by your physician. Problem is new. Symptoms have improved. pm1
[2021-02-06] MEDS ORDERED: AZITHROMYCIN 1 GM PACKET ONE (14:49)
[2021-02-06 15:03] VITALS: BP 122/75; TEMP 98.1; O2SAT 100
== END 2021-02-06 14:55 | disposition home or self-care (01) ==
LOC: ER 10:55
DX: N30.90 Cystitis, unspecified without hematuria (principal); F17.210 Nicotine dependence, cigarettes, uncomplicated; Z88.1 Allergy status to other antibiotic agents; Z88.5 Allergy status to narcotic agent; Z88.8 Allergy status to other drugs, medicaments and biological substances
CPT/HCPCS: 36415; 74177; 80048; 80076; 81003; 81015; 81025; 82565; 83690; 85025; 87077; 87086; 87088; 87186; 96361; 96365; 96375; 99284; J0696; J2405; J7030; Q9967

== ENCOUNTER 2021-02-24 18:23 | Emergency (ER) | payer SELFPAY ==
--- OUTSIDE RECORDS SUMMARY | 2021-02-24 18:26 | XMS REPORT | Continuity of Care Document ---
:1985 Author Organization [facility] t Address [address] [place] [address] Care Team Providers Name Role Phone Freddy [...] Source Maternal aunt Coronary artery [facility] Maternal grandmother Coronary artery [facility] Natural mother Coronary artery [facility] Natural brother Diabetes Krishnamurthy He alth [...] 2017-04-09 Current [place] 00:00:00 00:00:00 non-drinker of Synagogue alcohol (finding) Cigarette 2015-04-20 2015-04-20 [facility] pack-years 00:00:00 00:00:00 Alcohol Comment 2015-04-16 2015-04-16 last drink 02/[address] [facility] 00:00:00 00:00:00 Sex Ass[birth year] At [birth year] [place] 00:00:00 00:00:00 [facility] Smoking Status Start Date Stop Date Source Current every day smoker 2017-07-16 00:00:[address] [facility] Never smoker [place] [facility] t Medications Ordered Filled Start Stop [...] MG 15:00: mouth Medical tablet 29 nightly. [place] ARIPiprazol 2016-08 Yes 15mg QD Take [address] [facility] (ABILIFY) 1-26 by mouth Luke s - 15 MG 15:00: nightly. Medical tablet 29 Center ibuprofen Yes Tooth 800mg Take 4 Anette is (MOTRIN) 8-31 infection tablets by [facility] 200 mg 00:00: mouth tablet 00 [...] Future Scheduled 2021-03-21 INFLUENZA VACCINE Evangelista sanchez [facility] Test 00:00:00 [code = INFLUENZA VACCINE] Future Scheduled 2020-04-20 Screening for [facility] 00:00:00 malignant neoplasm of cervix (procedure) [code = 760098369] Future Scheduled 2015 Screening for [facility] Test 00:00:00 malignant neoplasm of cervix (procedure) [code = 439122878] Future Scheduled 2006 Screening for [place] [facility] Test 00:00:00 malignant neoplasm of cervix (procedure) [code = 645016306] Future Scheduled 1997 COVID-19 VACCINE (1) Carie may [facility] Test 00:00:00 [code = COVID-19 VACCINE (1)] Future Scheduled 1997 COVID-19 Vaccine (1) [facility]jam[email or web address] Health Test 00:00:00 [code = COVID-19 Vaccine (1)] Encounters Start End Encounter Admission Attending Care Care Encounter Source Date/Time Date/Time Type Type Clinicians Facility Department ID 2020-04-29 2020-04-29 [facility] [id number] 10:44:00 14:30:00 Linn Smith [id number] [place] [id number] [place] [id number] 2020-04-29 2020-04-29 Orders Doctor ANTHONY [id number] 00:00:00 00:00:00 Only Unassigned, LINDA [id number] [place] [facility] [id number] [id number] 2019-04-14 2019-04-14 [facility] [id number] 17:25:25 17:58:00 Ad Smith [id number] [place] [id number] [place] [id number] 2019-03-18 2019-03-18 Emergency Vonda Allen [facility] [id number] 22:34:35 23:51:00 Maribel Smith [id number] [place] [id number] [place] [id number] 2017-04-09 2017-04-09 Emergency [facility] [id number] Krishnamurthy 00:00:00 00:00:00 Health 2017-04-09 2017-04-09 Emergency [facility] [id number] Krishnamurthy 00:00:00 00:00:00 Health 2017-04-08 2017-04-08 Emergency [facility] [id number] Krishnamurthy 22:35:00 22:35:00 Health 2017-04-08 2017-04-08 Emergency [facility] [id number] Krishnamurthy 00:00:00 00:00:00 Health Results Test Description Test Time Test Comments Results Result Comments Source HEMOGLOBIN A1C 2017-07-16 13:26:00 Test Item Value Reference Range Interpretation Comme nts HEMOGLOBIN A1C (BEAKER) (test code = 368) 5.2 % 4.3-6.1 CBC W/PLT COUNT & AUTO [id number] 09:42:00 Test Item Value Reference Range Interpretation [...] (test code Normal = 762) BASIC METABOLIC [id number] 07:11:00 Test Item Value Reference Range Interpretation [...] NOT APPLICABLE FOR DIALYSIS PATIEN TS. LIPID [id number] 07:11:00 Test Item Value Reference Range Interpretation [...] 100-129 Borderline 130-159 High 160-189 Very High [id number] 07:11:00 Test Item Value Reference Range Interpretation Comments MAGNESIUM (KRISTI) (test code = 1.5 mg/dL 1.6-2.6 L 627) TROPONIN [id number] 06:34:00 Test Item Value Reference Range Interpretation [...] acidosis, acute neurological disease, and persistent tachyarrhythmia.TROPONIN [id number] 23:58:00 Test Item Value Reference Range Interpretation [...]
[2021-02-24] MEDS ORDERED: ONDANSETRON 4 MG/2 ML VIAL ONE (20:36)
[2021-02-24] MEDS ORDERED: NA CHLORIDE 0.9% 1,000 ML ONE (20:36)
[2021-02-24 20:39] LABS: Absolute Lymphocytes (CBC) 5.2 K/uL (0.7-4.9); Basophils % 0.8 % (0-1.3); Hematocrit 37.6 % (36.0-45.0); Lymphocytes % 42.9 % (15.3-44.8); MPV 7.7 fL (7.6-11.3); RBC Red Blood Cell Count 4.11 M/uL (3.86-4.86)
[2021-02-24 21:03] LABS: ALT/SGPT 21 U/L (12-78); AST/SGOT 13 U/L (15-37); Albumin 3.6 g/dL (3.4-5.0); Alkaline Phosphatase 70 U/L (45-117); BUN Blood Urea Nitrogen 7 mg/dL (7-18); Bicarbonate 23 mmol/L (21-32); Bilirubin Direct < 0.1 mg/dL (0-0.2); Bilirubin Total 0.2 mg/dL (0.2-1.0); Glucose Level 77 mg/dL (74-106); Lipase 114 U/L (73-393); Protein, Total 6.8 g/dL (6.4-8.2); Sodium Level 136 mmol/L (136-145)
--- NOTE | 2021-02-24 21:38 | EDPHYS ---
Physician Documentation [facility] Name: Natasha Spann Age: 35 yrs Sex: Female : 1985 Arrival Date: 02/24/2021 Time: 18:25 Bed 4 Private MD: ED Physician Wili Coffman HPI: 02/24 20:43 This 35 yrs old Female presents to ER via Ambulatory with complaints of tw4 Abdominal Pain. 20:43 The patient presents with abdominal pain in the epigastric area. Onset: The tw4 symptoms/episode began/occurred today. The symptoms do not radiate. Associated signs and symptoms: none. The symptoms are described as crampy. Modifying factors: The symptoms are alleviated by nothing, the symptoms are aggravated by nothing. The patient has not experienced similar symptoms in the past. Historical: - Allergies: 18:31 Levofloxacin; ll1 18:31 bupropion HCl; ll1 18:31 Wellbutrin; ll1 - PMHx: 18:31 ADD/ADHD; Anxiety; Bipolar disorder; Depression; Endometrosis; Gastric Reflux; MRSA; ll1 osteomylitis; Ovarian cyst; UTI; - PSHx: 18:31 L BKA; ll1 - Immunization history:: Flu vaccine is not up to date. - Social history:: Smoking status: Patient reports the use of cigarette tobacco products, smokes one pack cigarettes per day. ROS: 20:43 Constitutional: Negative for fever, chills, and weight loss, Eyes: Negative for injury, tw4 pain, redness, and discharge, Cardiovascular: Negative for chest pain, palpitations, and edema, Respiratory: Negative for shortness of breath, cough, wheezing, and pleuritic chest pain, Abdomen/GI: Negative for abdominal pain, nausea, vomiting, diarrhea, and constipation, Back: Negative for injury and pain, MS/Extremity: Negative for injury and deformity, Skin: Negative for injury, rash, and discoloration, Neuro: Negative for headache, weakness, numbness, tingling, and seizure. Exam: 20:43 Constitutional: This is a well developed, well nourished patient who is awake, alert, tw4 and in no acute distress. Head/Face: Normocephalic, atraumatic. Chest/axilla: Normal chest wall appearance and motion. Nontender with no deformity. No lesions are appreciated. Cardiovascular: Regular rate and rhythm with a normal S1 and S2. No gallops, murmurs, or rubs. Normal PMI, no JVD. No pulse deficits. Respiratory: Lungs have equal breath sounds bilaterally, clear to auscultation and percussion. No rales, rhonchi or wheezes noted. No increased work of breathing, no retractions or nasal flaring. Abdomen/GI: Soft, non-tender, with normal bowel sounds. No distension or tympany. No guarding or rebound. No evidence of tenderness throughout. Back: No spinal tenderness. No costovertebral tenderness. Full range of motion. Skin: Warm, dry with normal turgor. Normal color with no rashes, no lesions, and no evidence of cellulitis. MS/ Extremity: Pulses equal, no cyanosis. Neurovascular intact. Full, normal range of motion. Neuro: Awake and alert, GCS 15, oriented to person, place, time, and situation. Cranial nerves II-XII grossly intact. Motor strength 5/5 in all extremities. Sensory grossly intact. Cerebellar exam normal. Normal gait. Vital Signs: 18:30 BP 141 / 81; Pulse 100; Resp 17; Temp 97.6; Pulse Ox 99% ; Weight 90.72 kg; Height 5 ll1 ft. 8 in. (172.72 cm); Pain 7/10; 20:35 BP 105 / 67; Pulse 52; Resp 16 S; Pulse Ox 100% on R/A; ad5 21:45 BP 122 / 73; Pulse 58; Resp 18; Pulse Ox 98% ; ea 18:30 Body Mass Index 30.41 (90.72 kg, 172.72 cm) ll1 MDM: 20:01 Patient medically screened. tw4 21:35 Differential diagnosis: acute coronary syndrome, bowel obstruction, cholecystitis, tw4 Cholelithiasis, Herpes Zoster. Data reviewed: vital signs, nurses notes. Data interpreted: Pulse oximetry: Interpretation: normal. Counseling: I had a detailed discussion with the patient and/or guardian regarding: the historical points, exam findings, and any diagnostic results supporting the discharge/admit diagnosis. Special discussion: I discussed with the patient/guardian in detail that at this point there is no indication for admission to the hospital. It is understood, however, that if the symptoms persist or worsen the patient needs to return immediately for re-evaluation. 02/24 20:13 Order name: Basic Metabolic Panel; Complete Time: 21:24 ea 02/24 21:24 Interpretation: Normal except: CL 109. [facility] 02/24 20:13 Order name: CBC with Diff; Complete Time: 21:24 ea 02/24 21:24 Interpretation: Normal except: WBC 12.10. [facility] 02/24 20:13 Order name: Hepatic Function; Complete Time: 21:24 ea 02/24 21:24 Interpretation: Normal except: AST 13. [facility] 02/24 20:13 Order name: Lipase; Complete Time: 21:24 ea 02/24 21:24 Interpretation: Within normal limits: LIP 114. [facility] 02/24 20:13 Order name: IV Saline Lock; Complete Time: 20:31 ea 02/24 20:13 Order name: Labs collected and sent; Complete Time: 20:32 ea Administered Medications: 20:30 Drug: NS 0.9% 1000 ml Route: IV; Rate: 1 bolus; Site: right upper arm; ad5 21:45 Follow up: Response: No adverse reaction; IV Status: Completed infusion; IV Intake: ea 1000ml 20:31 Drug: Zofran (Ondansetron) 4 mg Route: IVP; Site: right upper arm; ad5 21:45 Follow up: Response: No adverse reaction ea Disposition Summary: 02/24/21 21:37 Discharge Ordered Location: Home tw4 Problem: new tw4 Symptoms: have improved tw4 Condition: Stable tw4 Diagnosis - Other viral enteritis tw4 Followup: tw4 - With: Private Physician - When: Upon discharge from the Emergency Department - Reason: Recheck today's complaints, Continuance of care, Re-evaluation by your physician Discharge Instructions: - Discharge Summary Sheet tw4 - Diarrhea, Adult tw4 - Nausea and Vomiting, Adult tw4 Forms: - Medication Reconciliation Form tw4 - Thank You Letter tw4 - Antibiotic Education tw4 - Prescription Opioid Use tw4 Prescriptions: - Zofran 4 mg Oral Tablet - take 1 tablet by ORAL route every 12 hours As needed; 20 tablet; Refills: 0, tw4 Product Selection Permitted - Lomotil 2.5-0.025 mg Oral Tablet - take 2 tablets by ORAL route once daily As needed; 20 tablet; Refills: 0, tw4 Product Selection Permitted Signatures: Dispatcher [employer] Shey Mishra, RN RN Wili Mahoney MD MD tw4 Shen Paez RN RN ll1 Jose Dutton ad5
--- NOTE | 2021-02-24 21:38 | ER ---
Nurse's Notes [facility] Name: Natasha Spann Age: 35 yrs Sex: Female : 1985 Arrival Date: 02/24/2021 Time: 18:25 Bed 4 Private MD: Diagnosis: Other viral enteritis Presentation: 02/24 18:30 Chief complaint: Patient states: RUQ abd pain for 4 days. Nausea, bad diarrhea. + ll1 chills but no fever. Coronavirus screen: Client denies travel out of the [place] in the last 14 days. At this time, the client does not indicate any symptoms associated with coronavirus-19. Ebola Screen: Patient denies travel to an Ebola-affected area in the 21 days before illness onset. Initial Sepsis Screen: Does the patient meet any 2 criteria? HR > 90 bpm. No. Patient's initial sepsis screen is negative. Does the patient have a suspected source of infection? Yes: Acute abdominal pain. Risk Assessment: Do you want to hurt yourself or someone else? Patient reports no desire to harm self or others. Onset of symptoms was February 21, 2021. 18:30 Method Of Arrival: Ambulatory ll1 18:30 Acuity: EMILY 3 ll1 Historical: - Allergies: 18:31 Levofloxacin; ll1 18:31 bupropion HCl; ll1 18:31 Wellbutrin; ll1 - PMHx: 18:31 ADD/ADHD; Anxiety; Bipolar disorder; Depression; Endometrosis; Gastric Reflux; MRSA; ll1 osteomylitis; Ovarian cyst; UTI; - PSHx: 18:31 L BKA; ll1 - Immunization history:: Flu vaccine is not up to date. - Social history:: Smoking status: Patient reports the use of cigarette tobacco products, smokes one pack cigarettes per day. Screenin:34 Abuse screen: Denies threats or abuse. Denies injuries from another. Nutritional ad5 screening: No deficits noted. Tuberculosis screening: No symptoms or risk factors identified. Fall Risk None identified. Assessment: 20:33 General: Appears in no apparent distress. Behavior is calm, cooperative, appropriate ad5 for age. Pain: Complains of pain in abdomen. Neuro: No deficits noted. Level of Consciousness is awake, alert, obeys commands, Oriented to person, place, time, situation, Appropriate for age. Cardiovascular: No deficits noted. Heart tones present Capillary refill < 3 seconds Patient's skin is warm and dry. Respiratory: No deficits noted. Airway is patent Respiratory effort is even, unlabored, Respiratory pattern is regular, symmetrical. GI: Bowel sounds present X 4 quads. Abd is soft and non tender X 4 quads. Reports lower abdominal pain, diarrhea, x 4 days. : No deficits noted. No signs and/or symptoms were reported regarding the genitourinary system. Derm: Skin is pink, warm \T\ dry. 21:48 Reassessment: Patient and/or family updated on plan of care and expected duration. Pain ea level reassessed. Patient is alert, oriented x 3, equal unlabored respirations, skin warm/dry/pink. Discharge instruction given to patient verbal the understanding of instruction. Pt left ED ambulatory tolerating well. Vital Signs: 18:30 BP 141 / 81; Pulse 100; Resp 17; Temp 97.6; Pulse Ox 99% ; Weight 90.72 kg; Height 5 ll1 ft. 8 in. (172.72 cm); Pain 7/10; 20:35 BP 105 / 67; Pulse 52; Resp 16 S; Pulse Ox 100% on R/A; ad5 21:45 BP 122 / 73; Pulse 58; Resp 18; Pulse Ox 98% ; ea 18:30 Body Mass Index 30.41 (90.72 kg, 172.72 cm) ll1 ED Course: 18:25 Patient arrived in ED. ds1 18:31 Triage completed. ll1 18:32 Arm band placed on. ll1 19:19 Wili Coffman MD is Attending Physician. tw4 19:49 Jose Dutton is Primary Nurse. ad5 20:34 Patient has correct armband on for positive identification. Bed in low position. Call ad5 light in reach. Side rails up X 1. Pulse ox on. NIBP on. Door closed. Noise minimized. Warm blanket given. Head of bed lowered. 20:34 No provider procedures requiring assistance completed. Initial lab(s) drawn, by me, ad5 sent to lab. Inserted saline lock: 22 gauge in right upper arm, using aseptic technique. Blood collected. 21:48 IV discontinued, intact, bleeding controlled, No redness/swelling at site. Pressure ea dressing applied. Administered Medications: 20:30 Drug: NS 0.9% 1000 ml Route: IV; Rate: 1 bolus; Site: right upper arm; ad5 21:45 Follow up: Response: No adverse reaction; IV Status: Completed infusion; IV Intake: ea 1000ml 20:31 Drug: Zofran (Ondansetron) 4 mg Route: IVP; Site: right upper arm; ad5 21:45 Follow up: Response: No adverse reaction ea Intake: 21:45 IV: 1000ml; Total: 1000ml. ea Outcome: 21:37 Discharge ordered by MD. prajapati 21:48 Discharged to home ambulatory, with family. ea 21:48 Condition: stable 21:48 Discharge instructions given to patient, Instructed on discharge instructions, follow up and referral plans. medication usage, Demonstrated understanding of instructions, follow-up care, medications. 21:48 Prescriptions given X 2. 21:50 Patient left the ED. ea Signatures: Kaci Ngo ds1 Shey Fuentes RN RN Wili Mahoney MD MD tw4 Shen Paez RN RN 1 Jose Dutton ad5
[2021-02-24 21:59] VITALS: TEMP 97.6
[2021-02-24 22:02] VITALS: BP 105/67; O2SAT 100
== END 2021-02-24 21:50 | disposition home or self-care (01) ==
LOC: ER 18:23
DX: A08.39 Other viral enteritis (principal); F17.210 Nicotine dependence, cigarettes, uncomplicated; Z88.1 Allergy status to other antibiotic agents; Z88.8 Allergy status to other drugs, medicaments and biological substances
CPT/HCPCS: 36415; 80048; 80076; 83690; 85025; 96361; 96374; 99284; J2405; J7030

== ENCOUNTER 2021-04-09 12:52 | Emergency (ER) | payer SELFPAY ==
--- OUTSIDE RECORDS SUMMARY | 2021-04-09 12:56 | XMS REPORT | Continuity of Care Document ---
:1985 Author Organization [facility] t Address [address] [place] [address] Care Team Providers Name Role Phone Freddy [...] smoking cessation . Tobacco Tobacco Disease Active [place] use use 04-16 Health disorder disorder 00:00: 00 Anxiety Anxiety Disease Active [place] [employer] and and 04-16 Health depression depression 00:00: [...] reaction 00 Center s Levoflox Propensi Active Method i acin ty to 8-20 st adverse 00:00: Hospita reaction 00 l s to drug Bupropio Propensi Active Method i n Hcl ty to [address] [facility] adverse 00:00: Hospita reaction 00 l s to drug Benztrop Propensi Active Swelling [...] Date Source Maternal aunt Coronary artery [facility] Maternal grandmother Coronary artery [facility] Natural mother Coronary artery [facility] Natural brother Diabetes [place] He alth Social History Social Habit Start Date Stop Date Quantity Comments Source Sex Assigned At [place] He alth History of tobacco Cigarette Smoker [facility] use Alcohol intake 2015-04-20 2015-04-20 [facility] 00:00:00 00:00:00 of alcohol (finding) Cigarettes smoked 2015-04-20 2015-04-20 [facility] current (pack per 00:00:00 00:00:00 day) - Reported Cigarette 2015-04-20 2015-04-20 [facility] pack-years 00:00:00 00:00:00 Tobacco use and 2015-04-20 2015-04-20 Never used Krishnamurthy He alth exposure 00:00:00 00:00:00 Alcohol Comment 2015-04-16 2015-04-16 last drink 02/2015 [facility] 00:[facility]:00:00 Smoking Status Start Date Stop Date Source Never smoker Brennon Leroy al Current every day smoker 2015-04-20 00:00:00 [facility] Health Medications Ordered Filled Start Stop Current Ordering [...] QD Take [address] (PRILOSEC) 1-26 ageal by mouth Luke s - 40 [...] MG 15:00: mouth Medical tablet 29 nightly. Center ARIPiprazol 2016-08 Yes 15mg QD Take [address] [facility] (ABILIFY) 1-26 by mouth Luke s - 15 MG 15:00: nightly. Medical tablet 29 Center ibuprofen Yes Tooth 800mg Take 4 Anette is (MOTRIN) 8-31 infection tablets by [facility] 200 mg 00:00: mouth tablet 00 every 6 hours as needed for Pain. ARIPIPRAZOL 2015-0 Yes Take by Benjamín ris E (ABILIFY 8-27 mouth. Health OR) 13:48: 28 DULOXETINE Yes Take by Anette is HCL 8-27 mouth. Health (CYMBALTA 13:48: OR) 28 TOPIRAMATE Yes Take by Anette is (TOPAMAX 8-27 mouth. Health OR) 13:48: 28 TRAZODONE 2014- Yes Take by Catherine s HCL 8-27 mouth. Health (TRAZODONE 13:48: OR) 28 PROPRANOLOL Yes Take by Benjamín ris HCL 8-27 mouth. Health (PROPRANOLO 13:48: L OR) 28 HYDROXYZINE Yes Take by Benjamín ris HCL OR 8-27 mouth. Health 13:48: 28 budesonide- Yes Unspecified 2{puff} Q.5D Inhale 2 Krishnamurthy formoterol 04-16 chronic Puffs by Jay pan (SYMBICORT) 00:00: bronchitis mouth 2 80-4.5 00 times mcg/actuati daily on inhaler Rinse mouth after each use.. Procedures This patient has no known procedures. Plan of Care Planned Activity Planned Date Details Comments Source Future Scheduled 2021-05-21 IMM Influenza [facility] lt Test 00:00:00 Seasonal May to October (>/= 19 yrs) [code = IMM Influenza Seasonal May to October (>/= 19 yrs)] Future Scheduled 2020-04-20 [facility] malignant neoplasm of cervix (procedure) [code = 929706083] Future Scheduled 2015 Screening for [facility] lt Test 00:00:00 malignant neoplasm of cervix (procedure) [code = 931665989] Future Scheduled 1997 COVID-19 Vaccine [facility] Test 00:00:00 (1) [code = COVID-19 Vaccine (1)] Future Scheduled [facility] ([facility]) [code = COVID-19 VACCINE (1)] Future Scheduled Screening for [facility] Test malignant neoplasm of cervix (procedure) [code = 210045436] Future Scheduled [facility]UENZA [facility]ACCINE [facility] [code = INFLUENZA VACCINE] Encounters Start End Encounter Admission Attending Care Care Encounter Source Date/Time Date/Time Type Type Clinicians Facility Department ID 2020-04-29 2020-04-29 Emergency [facility] [id number] 10:44:00 14:30:00 Linn Chung Sarah [id number] [place] 4.2.7.2.686 [place] [id number] 2020-04-29 2020-04-29 Orders Doctor ANTHONY [id number] 00:00:00 00:00:00 Only Unassigned, LINDA 350.1.13.10 [place] [facility] 4.2.7.2.686 [id number] 2019-04-14 2019-04-14 [facility] [id number] 17:25:25 17:58:00 Ad Sarah [id number] [place] 4.2.7.2.686 [place] [id number] 2019-03-18 2019-03-18 Emergency Vonda Allen [facility] [id number] 22:34:35 23:51:00 Maribel Smith [id number] [place] 4.2.7.2.686 [place] [id number] 2017-04-09 2017-04-09 Emergency [facility] [id number] [place] 00:00:00 00:00:00 Health 2017-04-09 2017-04-09 [facility] [id number] [place] 00:00:00 00:00:00 [facility] 2017-04-08 2017-04-08 Emergency [facility] [id number] [place] 22:35:00 22:35:00 Health 2017-04-08 2017-04-08 [facility] [id number] [place] 00:00:00 00:00:00 Health Results Test Description Test Time Test Comments Results Result Comments Source HEMOGLOBIN A1C 2017-07-16 13:26:00 Test Item Value Reference Range Interpretation Comme nts HEMOGLOBIN A1C (BEAKER) (test code = 368) 5.2 % 4.3-6.1 CBC W/PLT COUNT & AUTO [id number] 09:42:00 Test Item Value Reference Range Interpretation [...] (test code Normal = 762) BASIC METABOLIC [id number] 07:11:00 Test Item Value Reference Range Interpretation [...] NOT APPLICABLE FOR DIALYSIS PATIEN TS. LIPID [id number] 07:11:00 Test Item Value Reference Range Interpretation [...] 100-129 Borderline 130-159 High 160-189 Very High [id number] 07:11:00 Test Item Value Reference Range Interpretation Comments MAGNESIUM (BEAKER) (test code = 1.5 mg/dL 1.6-2.6 L 627) TROPONIN [id number] 06:34:00 Test Item Value Reference Range Interpretation [...] acidosis, acute neurological disease, and persistent tachyarrhythmia.TROPONIN [id number] 23:58:00 Test Item Value Reference Range Interpretation [...]
--- NOTE | 2021-04-09 16:10 | EDPHYS ---
Physician Documentation [facility] Name: Natasha Spann Age: 36 yrs Sex: Female : 1985 Arrival Date: 04/09/2021 Time: 12:53 Bed Waiting Private MD: ED Physician Ad Alston HPI: 04/09 16:07 This 36 yrs old Female presents to ER via Ambulatory with complaints of Flu kb Symptoms. 16:07 The patient or guardian reports flu symptoms, myalgias. Onset: The symptoms/episode kb began/occurred 2 day(s) ago. Severity of symptoms: At their worst the symptoms were mild, in the emergency department the symptoms are unchanged. Modifying factors: The symptoms are alleviated by nothing, the symptoms are aggravated by nothing. Associated signs and symptoms: The patient has no apparent associated signs or symptoms. The patient has not experienced similar symptoms in the past. The patient has not recently seen a physician. Patient reports headache, chills and body aches that started 2 days ago. States she feels like she has the flu. 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 - Social history:: Smoking status: Patient reports the use of cigarette tobacco products, smokes one pack cigarettes per day. ROS: 16:08 Respiratory: Negative for shortness of breath, cough, wheezing, and pleuritic chest kb pain. 16:08 Constitutional: Positive for body aches, chills, fatigue, malaise. 16:08 Neuro: Positive for headache. 16:08 All other systems are negative. Exam: 16:08 Constitutional: This is a well developed, well nourished patient who is awake, alert, kb and in no acute distress. Head/Face: Normocephalic, atraumatic. ENT: Moist Mucous membranes Cardiovascular: Regular rate and rhythm with a normal S1 and S2. No gallops, murmurs, or rubs. No pulse deficits. Respiratory: Respirations even and unlabored. No increased work of breathing, no retractions or nasal flaring. Skin: Warm, dry with normal turgor. Normal color. MS/ Extremity: Pulses equal, no cyanosis. Neurovascular intact. Full, normal range of motion. Neuro: Awake and alert, GCS 15, oriented to person, place, time, and situation. Moves all extremities. Normal gait. Psych: Awake, alert, with orientation to person, place and time. Behavior, mood, and affect are within normal limits. Vital Signs: 14:21 BP 124 / 85; Pulse 75; Resp 17; Temp 97.9; Pulse Ox 98% ; Weight 90.72 kg; Height 5 ft. jl7 8 in. (172.72 cm); 14:21 Body Mass Index 30.41 (90.72 kg, 172.72 cm) jl7 MDM: 14:18 Patient medically screened. kb 16:07 Data reviewed: vital signs, nurses notes. Data interpreted: Pulse oximetry: on room air kb is 98 %. Interpretation: normal. Counseling: I had a detailed discussion with the patient and/or guardian regarding: the historical points, exam findings, and any diagnostic results supporting the discharge/admit diagnosis, lab results, the need for outpatient follow up, a family practitioner, to return to the emergency department if symptoms worsen or persist or if there are any questions or concerns that arise at home. 04/09 14:23 Order name: Flu; Complete Time: 15:28 kb 04/09 16:06 Order name: SARS-COV-2 RT PCR; Complete Time: 16:06 EDMS Administered Medications: No medications were administered Disposition: 19:23 Co-signature as Attending Physician, Ad Alston MD I agree with the assessment and kdr plan of care. Disposition Summary: 04/09/21 16:09 Discharge Ordered Location: Home kb Condition: Stable kb Diagnosis - Headache kb Followup: kb - With: Emergency Department - When: As needed - Reason: Worsening of condition Followup: kb - With: Private Physician - When: 2 - 3 days - Reason: Recheck today's complaints, Continuance of care, Re-evaluation by your physician Discharge Instructions: - Discharge Summary Sheet kb - Viral Respiratory Infection, [id number] kb - General Headache Without Cause, [id number] kb Forms: - Medication Reconciliation Form kb - Thank You Letter kb - Antibiotic Education kb - Prescription Opioid Use kb Signatures: Dispatcher [employer] EDMS Reva Morales, EDGE STITCHER-C EDGE STITCHER-Kirkb Ad Alston MD MD kdr Leal, Jahala, RN RN jl7 Corrections: (The following items were deleted from the chart) 15:01 14:23 CORONAVIRUS+Z ordered. [facility]
--- NOTE | 2021-04-09 16:10 | ER ---
Nurse's Notes [facility] Name: Natasha Spann Age: 36 yrs Sex: Female : 1985 Arrival Date: 04/09/2021 Time: 12:53 Bed Waiting Private MD: Diagnosis: Headache Presentation: 04/09 14:21 Chief complaint: Patient states: Headache x 2-3 days; body aches and sore throat x 1 jl7 day. Coronavirus screen: Client denies travel out of the [place] in the last 14 days. headache, muscle pain, Client presents with at least one sign or symptom that may indicate coronavirus-19. Standard/surgical mask placed on the client. Provider contacted for isolation considerations. Ebola Screen: No symptoms or risks identified at this time. Initial Sepsis Screen: Does the patient meet any 2 criteria? No. Patient's initial sepsis screen is negative. Does the patient have a suspected source of infection? No. Patient's initial sepsis screen is negative. Risk Assessment: Do you want to hurt yourself or someone else? Patient reports no desire to harm self or others. Onset of symptoms was April 07, 2021. 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 - Social history:: Smoking status: Patient reports the use of cigarette tobacco products, smokes one pack cigarettes per day. Vital Signs: 14:21 BP 124 / 85; Pulse 75; Resp 17; Temp 97.9; Pulse Ox 98% ; Weight 90.72 kg; Height 5 ft. jl7 8 in. (172.72 cm); 14:21 Body Mass Index 30.41 (90.72 kg, 172.72 cm) jl7 ED Course: 12:53 Patient arrived in ED. as 14:18 [facility]C [facility] kb 14:18 Ad Alston MD is Attending Physician. kb 14:22 Triage completed. jl7 14:22 Arm band placed on right wrist. Patient placed in waiting room, Patient notified of jl7 wait time. Administered Medications: No medications were administered Outcome: 16:09 Discharge ordered by . kb 17:27 Patient left the ED. kg Signatures: Reva Morales FNP-C FNP-Ckb Martinez, Amelia as Leal, Jahala RN RN jl7 Richa Edwards RN RN kg
[2021-04-09 18:12] VITALS: BP 124/85; TEMP 97.9; O2SAT 98
== END 2021-04-09 17:27 | disposition home or self-care (01) ==
LOC: ER 12:52
DX: R51.9 Headache, unspecified (principal); F31.9 Bipolar disorder, unspecified; F17.210 Nicotine dependence, cigarettes, uncomplicated; Z88.1 Allergy status to other antibiotic agents; Z88.8 Allergy status to other drugs, medicaments and biological substances; Z20.822 Contact with and (suspected) exposure to COVID-19
CPT/HCPCS: 87804; 99281; U0003

== ENCOUNTER 2021-06-29 07:02 | Emergency (ER) | payer SELFPAY ==
[2021-06-29] MEDS ORDERED: ONDANSETRON 4 MG/2 ML VIAL ONE (07:42)
[2021-06-29] MEDS ORDERED: NA CHLORIDE 0.9% 1,000 ML ONE (07:42)
[2021-06-29] MEDS ORDERED: MORPHINE 4 MG/ML SYR ONE (07:42)
[2021-06-29 07:58] LABS: Absolute Lymphocytes (CBC) 3.2 K/uL (0.7-4.9); Basophils % 0.6 % (0-1.3); Hematocrit 39.2 % (36.0-45.0); Lymphocytes % 34.4 % (15.3-44.8); MPV 7.6 fL (7.6-11.3); RBC Red Blood Cell Count 4.28 M/uL (3.86-4.86)
[2021-06-29 08:18] LABS: BUN Blood Urea Nitrogen 8 mg/dL (7-18); Bicarbonate 25 mmol/L (21-32); Glucose Level 98 mg/dL (74-106); Sodium Level 139 mmol/L (136-145); Troponin (Emerg Dept Use Only) < 0.02 ng/mL (0.0-0.045)
--- NOTE | 2021-06-29 08:58 | RAD REPORT ---
EXAM DESCRIPTION: CT - Thorax W/ Con CLINICAL HISTORY: Chest pain upper back pain COMPARISON: Chest For Pe Angio dated 11/22/2018 FINDINGS: The lungs are clear. No pleural thickening or pleural effusion. No pneumothorax. No axillary, mediastinal or hilar adenopathy. No concerning bony finding. Tiny liver cyst suspected. All CT scans are performed using dose optimization technique as appropriate and may include automated exposure control or mA/KV adjustment according to patient size. IMPRESSION: No acute intrathoracic abnormality.
--- NOTE | 2021-06-29 09:06 | EDPHYS ---
Physician Documentation [facility] Name: Natasha Spann Age: 36 yrs Sex: Female : 1985 Arrival Date: 06/29/2021 Time: 07:02 Bed 20 Private MD: ED Physician Fran Gee HPI: 06/29 08:00 This 36 yrs old Female presents to ER via Ambulatory with complaints of Back pkl Pain - upper. 08:00 The patient presents with pain that is acute. The symptoms are located in the upper pkl back. Onset: The symptoms/episode began/occurred just prior to arrival, 1 hour(s) ago. The pain does not radiate. Associated signs and symptoms: The patient has no apparent associated signs or symptoms. 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 - Social history:: Smoking status: Patient reports the use of cigarette tobacco products, smokes one pack cigarettes per day. ROS: 08:00 Eyes: Negative for injury, pain, redness, and discharge, ENT: Negative for injury, pkl pain, and discharge, Neck: Negative for injury, pain, and swelling, Cardiovascular: Negative for chest pain, palpitations, and edema, Respiratory: Negative for shortness of breath, cough, wheezing, and pleuritic chest pain, Abdomen/GI: Negative for abdominal pain, nausea, vomiting, diarrhea, and constipation. 08:00 Back: Positive for pain with movement, of the upper back. 08:00 : Negative for urinary symptoms. 08:00 MS/extremity: Negative for acute changes. 08:00 Skin: Negative for rash. 08:00 Neuro: Negative for altered mental status, loss of consciousness. Exam: 08:00 Head/Face: Normocephalic, atraumatic. Eyes: Pupils equal round and reactive to light, pkl extra-ocular motions intact. Lids and lashes normal. Conjunctiva and sclera are non-icteric and not injected. Cornea within normal limits. Periorbital areas with no swelling, redness, or edema. ENT: Nares patent. No nasal discharge, no septal abnormalities noted. Tympanic membranes are normal and external auditory canals are clear. Oropharynx with no redness, swelling, or masses, exudates, or evidence of obstruction, uvula midline. Mucous membranes moist. Neck: Trachea midline, no thyromegaly or masses palpated, and no cervical lymphadenopathy. Supple, full range of motion without nuchal rigidity, or vertebral point tenderness. No Meningismus. Chest/axilla: Normal chest wall appearance and motion. Nontender with no deformity. No lesions are appreciated. Cardiovascular: Regular rate and rhythm with a normal S1 and S2. No gallops, murmurs, or rubs. Normal PMI, no JVD. No pulse deficits. Respiratory: Lungs have equal breath sounds bilaterally, clear to auscultation and percussion. No rales, rhonchi or wheezes noted. No increased work of breathing, no retractions or nasal flaring. Abdomen/GI: Soft, non-tender, with normal bowel sounds. No distension or tympany. No guarding or rebound. No evidence of tenderness throughout. 08:00 Back: pain, that is moderate, of the upper back. 08:00 : Exam negative for acute changes. 08:00 Musculoskeletal/extremity: Exam is negative for acute changes. 08:00 Skin: Exam negative for rash. 08:00 Neuro: Orientation: is normal, Mentation: is normal, Cranial nerves: grossly normal, Motor: is normal. Vital Signs: 07:11 BP 148 / 91; Pulse 95; Resp 20; Temp 97.9; Pulse Ox 98% ; Weight 90.72 kg; Height 5 ft. ll3 8 in. (172.72 cm); Pain 7/10; 08:00 BP 125 / 82; Pulse 68; Resp 18; Temp 97.9; Pulse Ox 100% ; sl2 08:30 BP 122 / 83; Pulse 61; Resp 18; Pulse Ox 100% on R/A; sl2 09:00 BP 115 / 77; Pulse 71; Resp 18; Temp 98.1; Pulse Ox 100% ; sl2 07:11 Body Mass Index 30.41 (90.72 kg, 172.72 cm) ll3 MDM: 07:23 Patient medically screened. pkl 09:01 Data reviewed: vital signs, nurses notes, lab test result(s), EKG, radiologic studies, pkl CT scan. ED course: Patient feeling better. Discussed lab, EKG and CT Scan results with patient. Advised to follow up with PCP in 2 to 3 days. Patient understood instructions. 06/29 07:32 Order name: CBC with Diff; Complete Time: 08:19 pkl 06/29 07:32 Order name: Chem 7; Complete Time: 08:19 pkl 06/29 07:32 Order name: D-Dimer; Complete Time: 08:19 pkl 06/29 07:32 Order name: Troponin (emerg Dept Use Only); Complete Time: 08:19 pkl 06/29 08:24 Order name: CT Chest W/ Con; Complete Time: 08:59 pkl 06/29 07:32 Order name: EKG; Complete Time: 07:33 pkl Administered Medications: 07:34 Drug: NS 0.9% 1000 ml Route: IV; Rate: 125 ml/hr; Site: left wrist; sl2 09:18 Follow up: IV Status: Completed infusion; IV Intake: 1000ml sl2 07:36 Drug: Zofran (Ondansetron) 4 mg Route: IVP; Site: left wrist; sl2 09:16 Follow up: Response: No adverse reaction sl2 07:40 Drug: morphine 4 mg Route: IVP; Site: left wrist; sl2 09:16 Follow up: Response: No adverse reaction; Pain is decreased sl2 09:16 Drug: Ketorolac 30 mg Route: IVP; Site: left wrist; sl2 09:25 Follow up: Response: No adverse reaction; Pain is decreased sl2 Disposition Summary: 06/29/21 09:05 Discharge Ordered Location: Home pkl Problem: new pkl Symptoms: have improved pkl Condition: Fair pkl Diagnosis - Upper back pain pkl Followup: pkl - With: Private Physician - When: 2 - 3 days - Reason: Re-evaluation by your physician Discharge Instructions: - Discharge Summary Sheet pkl Forms: - Medication Reconciliation Form pkl - Thank You Letter pkl - Antibiotic Education pkl - Prescription Opioid Use pkl Prescriptions: - Cyclobenzaprine 10 mg Oral Tablet - take 1 tablet by ORAL route 2 times per day As needed; 20 tablet; Refills: 0, pkl Product Selection Permitted - Diclofenac Sodium 75 mg Oral tablet,delayed release (DR/EC) - take 1 tablet by ORAL route 2 times per day; 20 tablet; Refills: 0, Product pkl Selection Permitted Signatures: Dispatcher [employer] EDFran Westfall MD MD pkl Simin Murguia RN RN sl2 Derek Bowen RN RN ll3
--- NOTE | 2021-06-29 09:06 | ER ---
Nurse's Notes [facility] Name: Natasha Spann Age: 36 yrs Sex: Female : 1985 Arrival Date: 06/29/2021 Time: 07:02 Bed 20 Private MD: Diagnosis: Upper back pain Presentation: 06/29 07:11 Chief complaint: Patient states: PT states she woke up at 0530 and all of a sudden her ll3 back started hurting. Ebola Screen: Patient denies exposure to infectious person. No symptoms or risks identified at this time. Initial Sepsis Screen: Does the patient meet any 2 criteria? No. Patient's initial sepsis screen is negative. Does the patient have a suspected source of infection? No. Patient's initial sepsis screen is negative. Risk Assessment: Do you want to hurt yourself or someone else? Patient reports no desire to harm self or others. Onset of symptoms was June 29, 2021. Onset of symptoms was June 29, 2021 at 05:30. 07:11 Method Of Arrival: Ambulatory ll3 07:11 Acuity: EMILY 3 ll3 07:16 Coronavirus screen: At this time, the client does not indicate any symptoms associated ll3 with coronavirus-19. SOCK DRIER: 07:20 LMP 06/25/2021 ll3 Historical: - Allergies: 07:16 Levofloxacin; ll3 07:16 Wellbutrin; ll3 07:16 bupropion HCl; ll3 - Home Meds: 07:16 Vistaril 25 mg oral cap [Active]; Latuda 20 mg oral tab 1 tab once daily [Active]; ll3 melatonin 20 MG Oral tab nightly [Active]; Zoloft 100 mg Oral tab 1 tab once daily [Active]; - PMHx: 07:16 Anxiety; Bipolar disorder; Depression; Endometrosis; Gastric Reflux; MRSA; ll3 osteomylitis; Ovarian cyst; UTI; - PSHx: 07:16 L BKA; ll3 - Immunization history:: Client reports having NOT received the Covid vaccine. - Social history:: Smoking status: Patient reports the use of cigarette tobacco products, smokes one pack cigarettes per day. Screenin:27 Abuse screen: Denies threats or abuse. Nutritional screening: No deficits noted. sl2 Tuberculosis screening: No symptoms or risk factors identified. Never had TB. Possible symptoms: None Risk factors: None. Fall Risk None identified. No fall in past 12 months (0 pts). No secondary diagnosis (0 pts). No IV (0 pts). Ambulatory Aid- None/Bed Rest/Nurse Assist (0 pts). Gait- Normal/Bed Rest/Wheelchair (0 pts) Mental Status- Oriented to own ability (0 pts). Assessment: 07:27 Reassessment: Patient AUSTINO x 3, presents to ED with c/o sudden onset upper back pain. sl2 Patient states h/o chronic lower back pain - this pain is unusual. Denies recent fall or injury. No redness, swelling, bruising or deformity noted to affected area. Pain rated 7 of 10 at rest and 10 of 10 with movement. 07:27 General: Appears uncomfortable, well groomed, well developed, Behavior is calm, sl2 cooperative, Reports sever upper back pain. Pain: Complains of pain in back Pain does not radiate. Pain currently is 7 out of 10 on a pain scale. at worst was 10 out of 10 on a pain scale. level that patient reports is acceptable is 3 out of 10 on a pain scale. Quality of pain is described as aching, sharp, shooting, Pain began suddenly, Is continuous, Alleviated by rest, Aggravated by increased activity, repositioning, weight bearing, Noted to be grimacing, resistant to movement. Neuro: Level of Consciousness is awake, alert, obeys commands, Oriented to person, place, time, situation, Appropriate for age Insulation Foreman are equal bilaterally Moves all extremities. Gait is steady, Speech is normal, Facial symmetry appears normal. Cardiovascular: No deficits noted. Reports. Respiratory: No deficits noted. Breath sounds are clear bilaterally. GI: No deficits noted. No signs and/or symptoms were reported involving the gastrointestinal system. : No deficits noted. No signs and/or symptoms were reported regarding the genitourinary system. EENT: No deficits noted. No signs and/or symptoms were reported regarding the EENT system. Derm: No deficits noted. No signs and/or symptoms reported regarding the dermatologic system. Musculoskeletal: Reports pain in back. Vital Signs: 07:11 BP 148 / 91; Pulse 95; Resp 20; Temp 97.9; Pulse Ox 98% ; Weight 90.72 kg; Height 5 ft. ll3 8 in. (172.72 cm); Pain 7/10; 08:00 BP 125 / 82; Pulse 68; Resp 18; Temp 97.9; Pulse Ox 100% ; sl2 08:30 BP 122 / 83; Pulse 61; Resp 18; Pulse Ox 100% on R/A; sl2 09:00 BP 115 / 77; Pulse 71; Resp 18; Temp 98.1; Pulse Ox 100% ; sl2 07:11 Body Mass Index 30.41 (90.72 kg, 172.72 cm) ll3 ED Course: 07:02 Patient arrived in ED. as 07:16 Triage completed. ll3 07:20 Arm band placed on. ll3 07:23 Fran Gee MD is Attending Physician. pkl 07:27 Patient has correct armband on for positive identification. Bed in low position. Call sl2 light in reach. 07:27 No provider procedures requiring assistance completed. sl2 07:32 Simin Murguia, RN is Primary Nurse. sl2 07:45 Initial lab(s) drawn, by il, sent to lab. Inserted saline lock: 20 gauge in left wrist, kj1 using aseptic technique. Blood collected. 07:56 EKG done, by ED staff, reviewed by Fran Gee MD. gd 08:[address] via stretcher. sl2 08:49 CT Chest W/ Con In Process Unspecified. EDMS 08:[address]. sl2 09:39 IV discontinued, intact, bleeding controlled, No redness/swelling at site. Pressure sl2 dressing applied. Administered Medications: 07:34 Drug: NS 0.9% 1000 ml Route: IV; Rate: 125 ml/hr; Site: left wrist; sl2 09:18 Follow up: IV Status: Completed infusion; IV Intake: 1000ml sl2 07:36 Drug: Zofran (Ondansetron) 4 mg Route: IVP; Site: left wrist; sl2 09:16 Follow up: Response: No adverse reaction sl2 07:40 Drug: morphine 4 mg Route: IVP; Site: left wrist; sl2 09:16 Follow up: Response: No adverse reaction; Pain is decreased sl2 09:16 Drug: Ketorolac 30 mg Route: IVP; Site: left wrist; sl2 09:25 Follow up: Response: No adverse reaction; Pain is decreased sl2 Intake: 09:18 IV: 1000ml; Total: 1000ml. sl2 Outcome: 09:05 Discharge ordered by . pkashley 09:38 Discharged to home ambulatory. sl2 09:38 Condition: stable 09:38 Discharge instructions given to patient, Instructed on discharge instructions, follow up and referral plans. medication usage, Demonstrated understanding of instructions, follow-up care, medications, Prescriptions given X 2. 09:39 Patient left the ED. sl2 Signatures: Dispatcher [employer] EDWI Fran Gee MD MD pkl Hailey Yadav Kandis kj1 Osvaldo Grewal Sophia, RN RN sl2 Derek Bowen RN RN ll3 Corrections: (The following items were deleted from the chart) 07:20 07:11 Coronavirus screen: Vaccine status: Patient reports being unvaccinated. ll3 ll3
[2021-06-29] MEDS ORDERED: KETOROLAC 30 MG/ML INJ ONE (09:11)
[2021-06-29 10:01] VITALS: O2SAT 100
[2021-06-29 10:04] VITALS: BP 115/77; TEMP 98.1
--- NOTE | 2021-06-30 11:23 | EKG ---
Test Date: 2021-06-29 Test Time: 07:52:11 Incident Manager: LUMA MEASUREMENT RESULTS: Intervals: Rate: 60 RI: 162 QRSD: 84 QT: 402 QTc: 402 [place]: P: 47 RI: 162 QRS: 82 T: 56 INTERPRETIVE STATEMENTS: Normal sinus rhythm Normal ECG Compared to ECG 12/21/2020 12:24:12 Sinus bradycardia no longer present Electronically Signed On 06-30-21 11:20:35 WOOL PULLER by Rocky Sutton
--- OUTSIDE RECORDS SUMMARY | 2021-07-03 17:55 | XMS REPORT | Continuity of Care Document ---
:1985 Author Organization [facility] t Address [address] [place] [address] Care Team Providers Name Role Phone Freddy ARANGO Primary Care Physician Yovanny ARRIETA Attending Clinician Doctor Unassigned, Name Attending Clinician Unavailable Singer ANGEL Attending Clinician Steffany Florentino Attending Clinician Juliet Martinez Attending Clinician Concepcion DE LEON Attending Clinician Maribel Plasencia Attending Clinician BINTA FOLEY Attending Clinician Unavailable BINTA FOLEY Admitting Clinician Unavailable Payers Payer Name Policy Type Policy Number Effective Date Expiration Date S mary lou [employer] [place] [id number] 2019 00:00:00 WOMEN Advance Directives Directive Decision Effective Termination Comments Source Date Date Healthcare Agents on N/A [facility] ersity FileNameRelationshipHealthcare [facility] Agent Medical RelationshipCommunicationCanSt. [facility] Malinda AbrahamMetherOhio [facility] [phone] (Mobile) Problems Condition Condition Condition Status Onset Resolution Last Treating Co mments Source Name Details Category Date Date Treatment Clinician Date Migraine Migraine Disease Active Unive rs without without 5- ity of status status 00:00: [place] migrainosu migrainosu 00 Me dical s, not s, not Branch intractabl intractabl e, e, unspecifie unspecifie d migraine d migraine type type Gastroesop Gastroesop Disease Active U nivers hageal hageal 5-25 ity of reflux reflux 00:00: [place] disease, disease, 00 Medica l esophagiti esophagiti Br anch s presence s presence not not specified specified Chest pain Chest pain Disease Active 2016-08 [...] Active Method i n Hcl ty to 8-20 st adverse 00:00: [facility] reaction 00 l s to drug Levoflox Propensi Active Other - See 2015-08 Gets U nivers acin ty to comments 0-09 severe ity of adverse 00:00: joint [place] reaction 00 pains. Medical s Branch Bupropio Propensi Active Other - See 2015-08 Makes U nivers n ty to comments 0-09 patient ity of adverse 00:00: feel [place] reaction 00 "crazy" Medical s Branch LEVOFLOX DRUG Active Other-Cmnt 2015-08 Univ ers ACIN INGREDI 0-09 ity of 00:00: [place] 00 Medical Branch BUPROPIO DRUG Active Other-Cmnt 2015-08 Univ ers N INGREDI 0-09 ity of 00:00: [place] 00 Medical Branch Benztrop Propensi Active Swelling Anette is ine [...] Date Stop Date Source Natural brother Diabetes Krishnamurthy He alth Maternal grandmother Coronary artery [facility] Natural mother Coronary artery [facility] Maternal aunt Coronary artery [facility] Social History Social Habit Start Date Stop Date Quantity Comments Source History of tobacco 1992-02-15 Cigarette Smoker University of use 00:00:00 [facility] Exposure to Yes University of SARS-CoV-2 (event) [facility] Cigarettes smoked 2021-04-11 2021-04-11 Univers ity of current (pack per 00:00:00 00:00:00 ) - Reported Branch Tobacco use and 2021-04-11 2021-04-11 Never used Universit y of exposure 00:00:00 00:00:00 [facility] Alcohol intake 2021-04-11 2021-04-11 Current University of 00:00:00 00:00:00 non-drinker of [facility] alcohol Branch (finding) Cigarette 2015-04-20 2015-04-20 [facility] pack-years 00:00:00 00:00:00 Alcohol Comment 2015-04-16 2015-04-16 last drink Raghu Thompson alth 00:00:00 00:00:00 02/2015 [birth year] Universit y of 00:00:00 00:00:00 [facility] Smoking Status Start Date Stop Date Source Current every day smoker 2021-04-11 00:00:00 Uni versity of [facility] Never smoker [facility] Medications Ordered Filled Start Stop Current Ordering Indication Dosage Frequency Signature Comments Components Source Medication Medication Date Date Medication? Clinician (SIG) Name Name ketorolac 2020- No 30mg 30 mg, Unive rs (TORADOL) 04-26 Slow IV ity of injection 22:00: 20:57 Push, [place] 30 mg 00 :00 ONCE, 1 Medical dose, [facility] 04/26/21 at 1700, Routine
membership correspondent approving Restricted medication : BLAYNE HAIRSTON ketorolac 2020- No 30mg 30 mg, Unive rs (TORADOL) 04-26 Slow IV ity of injection 22:00: 20:57 Push, [place] 30 mg 00 :00 ONCE, 1 Medical dose, [facility] 04/26/21 at 1700, Routine
membership correspondent approving Restricted medication : BLAYNE HAIRSTON morpHINE 2020- No 4mg 4 mg, Slow Un tracee injection 4 04-26 IV Push, ity of mg 20:30: 19:28 ONCE, 1 [place] 00 :00 dose, [facility] 04/26/21 at Branch 1530, STAT morpHINE 2020- No 4mg 4 mg, Slow Un tracee injection 4 04-26 IV Push, ity of mg 20:30: 19:28 ONCE, 1 [place] 00 :00 dose, [facility] 04/26/21 at Branch 1530, STAT ondansetron 2020- No 4mg 4 mg, Slow Univers (ZOFRAN 04-26 IV Push, ity of (PF)) 20:15: 19:08 ONCE, 1 [place] injection 4 00 :00 dose, Mon Med ical mg 04/26/21 at Branch 1515, PUSHPA ondansetron 2020- No 4mg 4 mg, Slow Univers (ZOFRAN 04-26 IV Push, ity of (PF)) 20:15: 19:08 ONCE, 1 [place] injection 4 00 :00 dose, Mon Med ical mg 04/26/21 at Branch 1515, PUSHPA NaCl 0.9% 2020- No 1000mL at 999 Uni vers (NS) bolus 04-26 mL/hr, ity of infusion 18:30: 20:00 1,000 mL, [place] 1,000 mL 00 :00 IV Medical Infusion, Branch ONCE, 1 dose, 04/26/21 at 1330, STAT NaCl 0.9% 2020- No 1000mL at 999 Uni vers (NS) bolus 04-26 mL/hr, ity of infusion 18:30: 20:00 1,000 mL, [place] 1,000 mL 00 :00 IV Medical Infusion, Branch ONCE, 1 dose, 04/26/21 at 1330, STAT clonazePAM 2020- Yes [id number] 1mg Take 1 Univers (KLONOPIN) 04-17 tablet by ity of 1 mg tablet 00:00: 04:59 mouth 3 [place] 00 :00 (three) Medical times [place] daily for 5 days. clonazePAM 2020- Yes [id number] 1mg Take 1 Univers (KLONOPIN) 04-17 tablet by ity of 1 mg tablet 00:00: 04:59 mouth 3 [place] 00 :00 (three) Medical times [place] daily for 5 days. TOPIRAMATE 2020- No Take by Un tracee (TOPAMAX 04-12 mouth. ity of ORAL) 01:13: 00:00 [place] 52 :00 [facility] Branch ARIPIPRAZOL 2020- No Take by U chetan E (ABILIFY 04-12 mouth. ity of ORAL) 01:13: 00:00 [place] 52 :00 Medical Branch FLUOXETINE 2020- No Take by Un tracee HCL (PROZAC 04-12 mouth. ity o f ORAL) 01:13: 00:00 [place] 52 :00 Medical Branch traMADoL 0 2020- No 50mg 50 mg, Univer s (ULTRAM) 04-29 Oral, ONCE ity of tablet 50 19:30: 18:35 NOW, 1 [place] mg 00 :00 dose, [facility] Medical 04/29/20 at Branch 1430, Routine ketorolac 2019- No 15mg 15 mg, Unive rs (TORADOL) 04-29 Slow IV ity of injection 17:15: 16:31 Push, [place] 15 mg 00 :00 ONCE, 1 Medical dose, [facility] Branch 04/29/20 at 1215, PUSHPA
Fa culty member approving Restricted medication : AMARIS STALLINGS traMADoL 50 Yes [id number] 50mg Take 1 Univ ers mg tablet 04-29 tablet by ity o f 00:00: mouth [place] 00 every 6 Medical (six) Branch hours as needed for Pain (scale 7-10). Indication s: acute pain traMADoL 50 2020- No [id number] 50mg Take 1 Uni vers mg tablet 04-29 tablet by ity of 00:00: 00:00 mouth [place] 00 :00 every 6 Medical (six) Branch hours as needed for Pain (scale 7-10). Indication s: acute pain clindamycin 2020- No [id number] 450mg Take 3 Univers 150 mg 04-29 capsules ity of capsule 00:00: 04:59 by mouth 3 [place] 00 :00 (three) Medical times Branch daily for 10 days. ketorolac 2018- No 60mg 60 mg, Unive rs (TORADOL) 03-19 0730 Intramuscu ity of injection 05:45: 04:35 lar, ONCE, [place] 60 mg 00 :00 1 dose, Medical Counts Include [facility] Branch 03/19/19 at 0045, PUSHPA
Fa culty member approving Restricted medication : Vonda AGUILA ibuprofen Yes [id number] 600mg Take 1 U nivers 600 mg 7-29 tablet by ity of tablet 00:00: mouth [place] 00 every 6 Medical (six) Branch hours as needed for Pain (scale 4-6). ibuprofen Yes [id number] 600mg Take 1 U nivers 600 mg 7-29 tablet by ity of tablet 00:00: mouth [place] 00 every 6 Medical (six) Branch hours as needed for Pain (scale 4-6). ibuprofen Yes [id number] 600mg Take 1 U nivers 600 mg 7-29 tablet by ity of tablet 00:00: mouth [place] 00 every 6 Medical (six) Branch hours as needed for Pain (scale 4-6). ibuprofen Yes [id number] 600mg Take 1 U nivers 600 mg 7-29 tablet by ity of tablet 00:00: mouth [place] 00 every 6 Medical (six) Branch hours as needed for Pain (scale 4-6). ibuprofen 2020- No [id number] 600mg Take 1 Univers 600 mg 7-29 08-22 tablet by ity of tablet 00:00: 00:00 mouth [place] 00 :00 every 6 Medical (six) Branch hours as needed for Pain (scale 4-6). TRAZODONE Yes Take by Univ ers HCL 4-26 mouth. ity of (TRAZODONE 18:29: [place] ORAL) Medical Branch PROPRANOLOL Yes Take by Un tracee HCL 4-26 mouth. ity of (PROPRANOLO 18:29: [place] L ORAL) Medical Branch HYDROXYZINE Yes Take by Un tracee HCL ORAL 4-26 mouth. ity of 18:29: [place] [address] Medical Branch DULOXETINE Yes Take by Uni vers HCL 4-26 mouth. ity of (CYMBALTA 18:29: [place] ORAL) Medical Branch ARIPIPRAZOL Yes Take by Un tracee E (ABILIFY 4-26 mouth. ity of ORAL) 18:29: [place] [address] Medical Branch TRAZODONE Yes Take by Univ ers HCL 4-26 mouth. ity of (TRAZODONE 18:29: [place] ORAL) Medical Branch PROPRANOLOL Yes Take by Un tracee HCL 4-26 mouth. ity of (PROPRANOLO 18:29: [place] L ORAL) 35 Medical Branch HYDROXYZINE 0 Yes Take by Un tracee HCL ORAL 4-26 mouth. ity of 18:29: [place] [address] Medical Branch DULOXETINE 0 Yes Take by Uni vers HCL 4-26 mouth. ity of (CYMBALTA 18:29: [place] ORAL) 35 Medical Branch ARIPIPRAZOL Yes Take by Un tracee E (ABILIFY 4-26 mouth. ity of ORAL) 18:29: [place] [address] Medical Branch TRAZODONE 2019-0 Yes Take by Univ ers HCL 4-26 mouth. ity of (TRAZODONE 18:29: [place] ORAL) Medical Branch PROPRANOLOL 2018-0 Yes Take by Un tracee HCL 4-26 mouth. ity of (PROPRANOLO 18:29: [place] L ORAL) Medical Branch HYDROXYZINE 0 Yes Take by Un tracee HCL ORAL 4-26 mouth. ity of 18:29: [place] [address] Medical Branch DULOXETINE 2018-0 Yes Take by Uni vers HCL 4-26 mouth. ity of (CYMBALTA 18:29: [place] ORAL) Medical Branch ARIPIPRAZOL Yes Take by Un tracee E (ABILIFY 4-26 mouth. ity of ORAL) 18:29: [place] [address] Medical Branch TRAZODONE Yes Take by Univ ers HCL 4-26 mouth. ity of (TRAZODONE 18:29: [place] ORAL) Medical Branch PROPRANOLOL 2018- Yes Take by Un tracee HCL 4-26 mouth. ity of (PROPRANOLO 18:29: [place] L ORAL) Medical Branch HYDROXYZINE Yes Take by Un tracee HCL ORAL 4-26 mouth. ity of 18:29: [place] [address] Medical Branch DULOXETINE Yes Take by Uni vers HCL 4-26 mouth. ity of (CYMBALTA 18:29: [place] ORAL) Medical Branch ARIPIPRAZOL Yes Take by Un tracee E (ABILIFY 4-26 mouth. ity of ORAL) 18:29: [place] [address] Medical Branch TRAZODONE 2018-0 Yes Take by Univ ers HCL 4-26 mouth. ity of (TRAZODONE 18:29: [place] ORAL) Medical Branch PROPRANOLOL 2018-0 Yes Take by Un tracee HCL 4-26 mouth. ity of (PROPRANOLO 18:29: [place] L ORAL) Medical Branch HYDROXYZINE 2018-0 Yes Take by Un tracee HCL ORAL 4-26 mouth. ity of 18:29: [place] [address] Medical Branch DULOXETINE 2018-0 Yes Take by Uni vers HCL 4-26 mouth. ity of (CYMBALTA 18:29: [place] ORAL) Medical Branch TRAZODONE 2018-0 Yes Take by Univ ers HCL 4-26 mouth. ity of (TRAZODONE 18:29: [place] ORAL) 35 Medical Branch PROPRANOLOL 0 Yes Take by Un tracee HCL 4-26 mouth. ity of (PROPRANOLO 18:29: [place] L ORAL) 35 Medical Branch HYDROXYZINE 0 Yes Take by Un tracee HCL ORAL 4-26 mouth. ity of 18:29: [place] 35 Medical Branch DULOXETINE 0 Yes Take by Uni vers HCL 4-26 mouth. ity of (CYMBALTA 18:29: [place] ORAL) 35 Medical Branch TRAZODONE Yes Take by Univ ers HCL 4-26 mouth. ity of (TRAZODONE 18:29: [place] ORAL) 35 Medical Branch PROPRANOLOL Yes Take by Un tracee HCL 4-26 mouth. ity of (PROPRANOLO 18:29: [place] L ORAL) 35 Medical Branch HYDROXYZINE Yes Take by Un tracee HCL ORAL 4-26 mouth. ity of 18:29: [place] [address] Medical Branch DULOXETINE Yes Take by Uni vers HCL 4-26 mouth. ity of (CYMBALTA 18:29: [place] ORAL) 35 Medical Branch TRAZODONE Yes Take by Univ ers HCL 4-26 mouth. ity of (TRAZODONE 18:29: [place] ORAL) 35 Medical Branch PROPRANOLOL 0 Yes Take by Un tracee HCL 4-26 mouth. ity of (PROPRANOLO 18:29: [place] L ORAL) 35 Medical Branch HYDROXYZINE Yes Take by Un tracee HCL ORAL 4-26 mouth. ity of 18:29: [place] 35 Medical Branch DULOXETINE Yes Take by Uni vers HCL 4-26 mouth. ity of (CYMBALTA 18:29: [place] ORAL) 35 Medical Branch TRAZODONE Yes Take by Univ ers HCL 4-26 mouth. ity of (TRAZODONE 18:29: [place] ORAL) 35 Medical Branch PROPRANOLOL 0 Yes Take by Un tracee HCL 4-26 mouth. ity of (PROPRANOLO 18:29: [place] L ORAL) 35 Medical Branch HYDROXYZINE Yes Take by Un tracee HCL ORAL 4-26 mouth. ity of 18:29: [place] 35 Medical Branch DULOXETINE 0 Yes Take by Uni vers HCL 4-26 mouth. ity of (CYMBALTA 18:29: [place] ORAL) 35 Medical Branch TRAZODONE Yes Take by Univ ers HCL 4-26 mouth. ity of (TRAZODONE 18:29: [place] ORAL) 35 Medical Branch PROPRANOLOL 0 Yes Take by Un tracee HCL 4-26 mouth. ity of (PROPRANOLO 18:29: [place] L ORAL) 35 Medical Branch HYDROXYZINE Yes Take by Un tracee HCL ORAL 4-26 mouth. ity of 18:29: [place] 35 Medical Branch DULOXETINE Yes Take by Uni vers HCL 4-26 mouth. ity of (CYMBALTA 18:29: [place] ORAL) 35 Medical Branch TRAZODONE Yes Take by Univ ers HCL 4-26 mouth. ity of (TRAZODONE 18:29: [place] ORAL) 35 Medical Branch PROPRANOLOL Yes Take by Un tracee HCL 4-26 mouth. ity of (PROPRANOLO 18:29: [place] L ORAL) 35 Medical Branch HYDROXYZINE Yes Take by Un tracee HCL ORAL 4-26 mouth. ity of 18:29: [place] 35 Medical Branch DULOXETINE Yes Take by Uni vers HCL 4-26 mouth. ity of (CYMBALTA 18:29: [place] ORAL) 35 Medical Branch Miscellaneo 0 Yes [id number] [facility] 12-1404 EXTREMITY ity of Supply Misc 00:00: PROSTHES [place] 00 NOS, Left Medical bka, needs Branch new prosthesis and supplies Miscellaneo 2019-0 Yes [id number] [facility] 12-14 91 EXTREMITY ity of Supply Misc 00:00: PROSTHES [place] 00 NOS, Left Medical bka, needs Branch new prosthesis and supplies Miscellaneo 2019-0 Yes [id number] [facility] 12-14 EXTREMITY ity of Supply Misc 00:00: PROSTHES [place] 00 NOS, Left Medical bka, needs Branch new prosthesis and supplies Miscellaneo 2019-0 Yes [id number] [facility] 12-14 EXTREMITY ity of Supply Misc 00:00: PROSTHES [place] 00 NOS, Left Medical bka, needs Branch new prosthesis and supplies Miscellaneo 2020- No [id number] LOWR [facility] 12-14 9104 EXTREMITY ity of Supply Misc 00:00: 00:00 PROSTHES [place] 00 :00 NOS, Left Medical bka, needs Branch new prosthesis and supplies TOPIRAMATE Yes Take by Uni vers (TOPAMAX 4-19 mouth. ity of ORAL) 01:22: [address] TOPIRAMATE Yes Take by Uni vers (TOPAMAX 4-19 mouth. ity of ORAL) 01:22: [address] TOPIRAMATE Yes Take by Uni vers (TOPAMAX 4-19 mouth. ity of ORAL) 01:22: [address] TOPIRAMATE Yes Take by Uni vers (TOPAMAX 4-19 mouth. ity of ORAL) 01:22: [address] acetaminoph Yes [id number] 1{tbl} Take 1 Univers en-codeine 4-18 tablet by ity of (TYLENOL-CO 00:00: mouth [place] DEINE #3) 00 every 4 Medical 300-30 mg (four) Branch tablet hours as needed for Pain (scale 7-10). cephALEXin Yes [id number] 250mg Take 1 Univers (KEFLEX) 4-18 capsule by ity o f 250 mg 00:00: mouth [place] capsule 00 every 6 Medical (six) Branch hours. acetaminoph Yes [id number] 1{tbl} Take 1 Univers en-codeine 4-18 tablet by ity of (TYLENOL-CO 00:00: mouth [place] DEINE #3) 00 every 4 Medical 300-30 mg (four) Branch tablet hours as needed for Pain (scale 7-10). cephALEXin Yes [id number] 250mg Take 1 Univers (KEFLEX) 4-18 capsule by ity o f 250 mg 00:00: mouth [place] capsule 00 every 6 Medical (six) Branch hours. acetaminoph Yes [id number] 1{tbl} Take 1 Univers en-codeine 4-18 tablet by ity of (TYLENOL-CO 00:00: mouth [place] DEINE #3) 00 every 4 Medical 300-30 mg (four) Branch tablet hours as needed for Pain (scale 7-10). cephALEXin Yes [id number] 250mg Take 1 Univers (KEFLEX) 4-18 capsule by ity o f 250 mg 00:00: mouth [place] capsule 00 every 6 Medical (six) Branch hours. acetaminoph Yes [id number] 1{tbl} Take 1 Univers en-codeine 4-18 tablet by ity of (TYLENOL-CO 00:00: mouth [place] DEINE #3) 00 every 4 Medical 300-30 mg (four) Branch tablet hours as needed for Pain (scale 7-10). cephALEXin Yes [id number] 250mg Take 1 Univers (KEFLEX) 4-18 capsule by ity o f 250 mg 00:00: mouth [place] capsule 00 every 6 Medical (six) Branch hours. acetaminoph 2020- No [id number] 1{tbl} Take 1 Univers en-codeine 4-18 08-22 tablet by ity of (TYLENOL-CO 00:00: 00:00 mouth [place] DEINE #3) 00 :00 every 4 Medical 300-30 mg (four) Branch tablet hours as needed for Pain (scale 7-10). cephALEXin 2020- No [id number] 250mg Take 1 Univers (KEFLEX) 4-18 08-22 capsule by ity of 250 mg 00:00: 00:00 mouth [place] capsule 00 :00 every 6 Medical (six) Branch hours. ibuprofen 2019- No [id number] 600mg Take 1 Univers 600 mg 3-06 27-29 3 tablet by ity of tablet 00:00: 00:00 mouth [place] 00 :00 every 6 Medical (six) Branch hours as needed for Pain (scale 4-6). sulfamethox Yes [id number] 1{tbl} Take 1 Univers azole-trime 2-12 tablet by ity of thoprim 00:00: mouth [place] 800-160 mg 00 every 12 Medic al per tablet (twelve) Branc h hours. sulfamethox Yes [id number] 1{tbl} Take 1 Univers azole-trime 2-12 tablet by ity of thoprim 00:00: mouth [place] 800-160 mg 00 every 12 Medic al per tablet (twelve) Branc h hours. sulfamethox 2018- Yes [id number] 1{tbl} Take 1 Univers azole-trime 2-12 tablet by ity of thoprim 00:00: mouth [place] 800-160 mg 00 every 12 Medic al per tablet (twelve) Branc h hours. sulfamethox 2018-0 Yes [id number] 1{tbl} Take 1 Univers azole-trime 2-12 tablet by ity of thoprim 00:00: mouth [place] 800-160 mg 00 every 12 Medic al per tablet (twelve) Branc h hours. sulfamethox 2018- 2021- No [id number] 1{tbl} Take 1 Univers azole-trime 2-12 08-22 tablet by it y of thoprim 00:00: 00:00 mouth [place] 800-160 mg 00 :00 every 12 Medic al per tablet (twelve) Branc h hours. FLUOXETINE Yes Take by Uni vers HCL (PROZAC 6-27 mouth. ity of ORAL) 17:12: [address] FLUOXETINE 2017- Yes Take by Uni vers HCL (PROZAC 6-27 mouth. ity of ORAL) 17:12: [address] FLUOXETINE Yes Take by Uni vers HCL (PROZAC 6-27 mouth. ity of ORAL) 17:12: [address] FLUOXETINE 2017-0 Yes Take by Uni vers HCL (PROZAC 6-27 mouth. ity of ORAL) 17:12: [address] pantoprazol 2017- Yes [id number] 40mg Take 1 Univers e 6-27 tablet by ity of (PROTONIX) 00:00: mouth 2 [place] 40 mg EC 00 (two) Medical tablet times Branch daily. fluticasone 2017- Yes [id number] 2{spray Use 2 Univers 50 6-27 } Sprays in ity of mcg/actuati 00:00: each [place] on nasal 00 nostril Medical spray daily. Branch pantoprazol 2017-0 Yes [id number] 40mg Take 1 Univers e 6-27 tablet by ity of (PROTONIX) 00:00: mouth 2 [place] 40 mg EC 00 (two) Medical tablet times Branch daily. fluticasone 2018- Yes [id number] 2{spray Use 2 Univers 50 6-27 } Sprays in ity of mcg/actuati 00:00: each [place] on nasal 00 nostril Medical spray daily. Branch pantoprazol 2017- Yes [id number] 40mg Take 1 Univers e 6-27 tablet by ity of (PROTONIX) 00:00: mouth 2 [place] 40 mg EC 00 (two) Medical tablet times Branch daily. fluticasone 2018- Yes [id number] 2{spray Use 2 Univers 50 6-27 } Sprays in ity of mcg/actuati 00:00: each [place] on nasal 00 nostril Medical spray daily. Branch pantoprazol 2017- Yes [id number] 40mg Take 1 Univers e 6-27 tablet by ity of (PROTONIX) 00:00: mouth 2 [place] 40 mg EC 00 (two) Medical tablet times Branch daily. fluticasone 2017- Yes [id number] 2{spray Use 2 Univers 50 6-27 } Sprays in ity of mcg/actuati 00:00: each [place] on nasal 00 nostril Medical spray daily. Branch pantoprazol 2017-2020- No [id number] 40mg Take 1 Univers e 6-27 08-22 tablet by ity of (PROTONIX) 00:00: 00:00 mouth 2 [place] 40 mg EC 00 :00 (two) Medical tablet times Branch daily. fluticasone 2017-2020- No [id number] 2{spray Use 2 Univers 50 6-27 08-22 } Sprays in ity of mcg/actuati 00:00: 00:00 each [place] on nasal 00 :00 nostril Medical spray daily. Branch naproxen 2018-0 Yes 550mg Take 1 Univer s sodium 6-10 tablet by ity of (ANAPROX 00:00: mouth 2 [place] DS) 550 mg 00 (two) Medical tablet times Branch daily with meals. naproxen 2018-0 Yes 550mg Take 1 Univer s sodium 6-10 tablet by ity of (ANAPROX 00:00: mouth 2 [place] DS) 550 mg 00 (two) Medical tablet times Branch daily with meals. naproxen 2018-0 Yes 550mg Take 1 Univer s sodium 6-10 tablet by ity of (ANAPROX 00:00: mouth 2 [place] DS) 550 mg 00 (two) Medical tablet times Branch daily with meals. naproxen 2018-0 Yes 550mg Take 1 Univer s sodium 6-10 tablet by ity of (ANAPROX 00:00: mouth 2 [place] DS) 550 mg 00 (two) Medical tablet times Branch daily with meals. naproxen 2017-2020- No 550mg Take 1 Unive rs sodium 6-10 08-22 tablet by ity of (ANAPROX 00:00: 00:00 mouth 2 [place] DS) 550 mg 00 :00 (two) Medical tablet times Branch daily with meals. metoclopram 2018-0 Yes [id number] 1 tab U nivers arianne HCl 10 5-25 every 4hr ity of mg tablet 00:00: as needed [place] 00 for nausea Medical Branch metoclopram 2017- Yes [id number] 1 tab U nivers arianne HCl 10 5-25 every 4hr ity of mg tablet 00:00: as needed [place] 00 for nausea Medical Branch metoclopram 2017- Yes [id number] 1 tab U nivers arianne HCl 10 5-25 every 4hr ity of mg tablet 00:00: as needed [place] 00 for nausea Medical Branch metoclopram 2017- Yes [id number] 1 tab U nivers arianne HCl 10 5-25 every 4hr ity of mg tablet 00:00: as needed [place] 00 for nausea Medical Branch metoclopram 2017-0 2020- No [id number] 1 tab Univers arianne HCl 10 5-25 08-22 every 4hr ity of mg tablet 00:00: 00:00 [place] 00 :00 for nausea Medical Branch phenazopyri 2018-0 Yes 200mg Take 1 Uni vers dine 200 mg 5-10 tablet by ity of tablet 00:00: mouth 3 (three) Medical times Branch daily. ondansetron 2018-0 Yes 4mg Take 1 Univ ers (ZOFRAN 5-10 tablet by ity of ODT) 4 mg 00:00: mouth [place] disintegrat 00 every 8 Medic al ing tablet (eight) Branch hours as needed for Nausea and Vomiting (N/V). phenazopyri 2018-0 Yes 200mg Take 1 Uni vers dine 200 mg 5-10 tablet by ity of tablet 00:00: mouth 3 [place] 00 (three) Medical times Branch daily. ondansetron 2018-0 Yes 4mg Take 1 Univ ers (ZOFRAN 5-10 tablet by ity of ODT) 4 mg 00:00: mouth [place] disintegrat 00 every 8 Medic al ing tablet (eight) Branch hours as needed for Nausea and Vomiting (N/V). phenazopyri 2018-0 Yes 200mg Take 1 Uni vers dine 200 mg 5-10 tablet by ity of tablet 00:00: mouth 3 [place] 00 (three) Medical times Branch daily. ondansetron 2018-0 Yes 4mg Take 1 Univ ers (ZOFRAN 5-10 tablet by ity of ODT) 4 mg 00:00: mouth [place] disintegrat 00 every 8 Medic al ing tablet (eight) Branch hours as needed for Nausea and Vomiting (N/V). phenazopyri 2018-0 Yes 200mg Take 1 Uni vers dine 200 mg 5-10 tablet by ity of tablet 00:00: mouth 3 [place] 00 (three) Medical times Branch daily. ondansetron 2018-0 Yes 4mg Take 1 Univ ers (ZOFRAN 5-10 tablet by ity of ODT) 4 mg 00:00: mouth [place] disintegrat 00 every 8 Medic al ing tablet (eight) Branch hours as needed for Nausea and Vomiting (N/V). phenazopyri 2018-0 2020- No 200mg Take 1 Un tracee dine 200 mg 5-10 08-22 tablet by it y of tablet 00:00: 00:00 mouth 3 [place] 00 :00 (three) Medical times Branch daily. ondansetron 2018-0 2021- No 4mg Take 1 Uni vers (ZOFRAN 5-10 08-22 tablet by ity of ODT) 4 mg 00:00: 00:00 mouth [place] disintegrat 00 :00 every 8 Medic al ing tablet (eight) Branch hours as needed for Nausea and Vomiting (N/V). acetaminoph 2018-0 Yes [id number] 1{tbl} Take 1-2 Univers en-codeine 5-01 tablets by ity of 300-30 mg 00:00: mouth [place] tablet 00 every 6 Medical (six) Branch hours as needed for Pain (scale 4-6) or Pain (scale 7-10) (for breakthrou gh pain). acetaminoph 2018-0 Yes [id number] 1{tbl} Take 1-2 Univers en-codeine 5-01 tablets by ity of 300-30 mg 00:00: mouth [place] tablet 00 every 6 Medical (six) Branch hours as needed for Pain (scale 4-6) or Pain (scale 7-10) (for breakthrou gh pain). acetaminoph Yes [id number] 1{tbl} Take 1-2 Univers en-codeine 5-01 tablets by ity of 300-30 mg 00:00: mouth [place] tablet 00 every 6 Medical (six) Branch hours as needed for Pain (scale 4-6) or Pain (scale 7-10) (for breakthrou gh pain). acetaminoph Yes [id number] 1{tbl} Take 1-2 Univers en-codeine 5-01 tablets by ity of 300-30 mg 00:00: mouth [place] tablet 00 every 6 Medical (six) Branch hours as needed for Pain (scale 4-6) or Pain (scale 7-10) (for breakthrou gh pain). acetaminoph 2020- No [id number] 1{tbl} Take 1-2 Univers en-codeine 5-01 08-22 tablets by it y of 300-30 mg 00:00: 00:00 mouth [place] tablet 00 :00 every 6 Medical (six) Branch hours as needed for Pain (scale 4-6) or Pain (scale 7-10) (for breakthrou gh pain). meclizine Yes [id number] 25mg Take 1 U nivers 25 mg 3-30 tablet by ity of tablet 00:00: mouth 3 [place] 00 (three) Medical times Branch daily as needed for Dizziness. meclizine Yes [id number] 25mg Take 1 U nivers 25 mg 3-30 tablet by ity of tablet 00:00: mouth 3 [place] 00 (three) Medical times Branch daily as needed for Dizziness. meclizine Yes [id number] 25mg Take 1 U nivers 25 mg 3-30 tablet by ity of tablet 00:00: mouth 3 [place] 00 (three) Medical times Branch daily as needed for Dizziness. meclizine Yes [id number] 25mg Take 1 U nivers 25 mg 3-30 tablet by ity of tablet 00:00: mouth 3 [place] 00 (three) Medical times Branch daily as needed for Dizziness. meclizine 2020- No [id number] 25mg Take 1 Univers 25 mg 3-30 08-22 tablet by ity of tablet 00:00: 00:00 mouth 3 [place] 00 :00 (three) Medical times Branch daily as needed for Dizziness. promethazin Yes 5mL Take 5 mL U nivers e-codeine 2-10 by mouth 4 ity of 6.25-10 00:00: (four) [place] mg/5 mL 00 times Medical syrup daily as Branch needed for Cough. sod Yes 1{bottl Use 1 Univers chlor-bicar 2-10 e} Bottle in ity of b-squeez 00:00: each [place] bottle 00 nostril 2 Medical (NEILMED (two) Branch SINUS RINSE times COMPLETE) daily. Use pkdv in hot shower 1 hour before bedtime promethazin Yes 5mL Take 5 mL U nivers e-codeine 2-10 by mouth 4 ity of 6.25-10 00:00: (four) [place] mg/5 mL 00 times Medical syrup daily as Branch needed for Cough. sod Yes 1{bottl Use 1 Univers chlor-bicar 2-10 e} Bottle in ity of b-squeez 00:00: each [place] bottle 00 nostril 2 Medical (NEILMED (two) Branch SINUS RINSE times COMPLETE) daily. Use pkdv in hot shower 1 hour before bedtime promethazin 2017- Yes 5mL Take 5 mL U nivers e-codeine 2-10 by mouth 4 ity of 6.25-10 00:00: (four) [place] mg/5 mL 00 times Medical syrup daily as Branch needed for Cough. sod Yes 1{bottl Use 1 Univers chlor-bicar 2-10 e} Bottle in ity of b-squeez 00:00: each [place] bottle 00 nostril 2 Medical (NEILMED (two) Branch SINUS RINSE times COMPLETE) daily. Use pkdv in hot shower 1 hour before bedtime promethazin Yes 5mL Take 5 mL U nivers e-codeine 2-10 by mouth 4 ity of 6.25-10 00:00: (four) [place] mg/5 mL 00 times Medical syrup daily as Branch needed for Cough. sod Yes 1{bottl Use 1 Univers chlor-bicar 2-10 e} Bottle in ity of b-squeez 00:00: each [place] bottle 00 nostril 2 Medical (NEILMED (two) Branch SINUS RINSE times COMPLETE) daily. Use pkdv in hot shower 1 hour before bedtime promethazin 2017-2020- No 5mL Take 5 mL Univers e-codeine 09-30 by mouth 4 ity of 6.25-10 00:00: 00:00 (four) [place] mg/5 mL 00 :00 times Medical syrup daily as Branch needed for Cough. sod 2017-2020- No 1{bottl Use 1 Univers chlor-bicar 09-30 e} Bottle in it y of b-squeez 00:00: 00:00 each [place] bottle 00 :00 nostril 2 Medical (NEILMED (two) Branch SINUS RINSE times COMPLETE) daily. Use pkdv in hot shower 1 hour before bedtime ondansetron 2018- Yes 4mg Take 1 Univ ers (ZOFRAN 1-24 tablet by ity of ODT) 4 mg 00:00: mouth [place] disintegrat 00 every 8 Medic al ing tablet (eight) Branch hours as needed for Nausea and Vomiting (N/V). ondansetron 2018-0 Yes 4mg Take 1 Univ ers (ZOFRAN 1-24 tablet by ity of ODT) 4 mg 00:00: mouth [place] disintegrat 00 every 8 Medic al ing tablet (eight) Branch hours as needed for Nausea and Vomiting (N/V). ondansetron 2018-0 Yes 4mg Take 1 Univ ers (ZOFRAN 1-24 tablet by ity of ODT) 4 mg 00:00: mouth [place] disintegrat 00 every 8 Medic al ing tablet (eight) Branch hours as needed for Nausea and Vomiting (N/V). ondansetron 2018-0 Yes 4mg Take 1 Univ ers (ZOFRAN 1-24 tablet by ity of ODT) 4 mg 00:00: mouth [place] disintegrat 00 every 8 Medic al ing tablet (eight) Branch hours as needed for Nausea and Vomiting (N/V). ondansetron 2017-0 2020- No 4mg Take 1 Uni vers (ZOFRAN 1-24 - tablet by ity of ODT) 4 mg 00:00: 00:00 mouth [place] disintegrat 00 :00 every 8 Medic al ing tablet (eight) Branch hours as needed for Nausea and Vomiting (N/V). DULoxetine 2016-08 Yes anxiety 30mg QD Take [...] Take [address] [facility] (ATARAX) 25 09-15 by mouth 4 Rosangela kes - MG tablet 15:00: (four) Medica l 29 times Center daily. propranolol 2016-08 Yes 20mg Q.5D Take [address] [facility] (INDERAL) - by mouth 2 [facility] - 20 MG 15:00: (two) Medical tablet 29 times Center daily. traZODone 2016-08 Yes 150mg QD Take [address] [facility] (DESYREL) 1-26 mg by [facility] - 150 MG 15:00: mouth Medical tablet 29 nightly. Center ARIPiprazol 2016-08 Yes 15mg QD Take [address] [facility] (ABILIFY) 09-15 by mouth [facility] - 15 MG 15:00: nightly. Medical tablet 29 Center metroNIDAZO 2016-08 Yes 500mg Take 1 Uni vers LE 500 mg 0-16 tablet by ity o f tablet 00:00: mouth 2 (two) Medical times Branch daily. metroNIDAZO 2016-08 Yes 500mg Take 1 Uni vers LE 500 mg 0-16 tablet by ity o f tablet 00:00: mouth 2 (two) Medical times Branch daily. metroNIDAZO 2016-08 Yes 500mg Take 1 Uni vers LE 500 mg 0-16 tablet by ity o f tablet 00:00: mouth 2 [place] 00 (two) Medical times Branch daily. metroNIDAZO 2016-08 Yes 500mg Take 1 Uni vers LE 500 mg 0-16 tablet by ity o f tablet 00:00: mouth 2 [place] 00 (two) Medical times Branch daily. metroNIDAZO 2016-08- No 500mg Take 1 Un tracee LE 500 mg 0-16 08-22 tablet by ity of tablet 00:00: 00:00 mouth 2 [place] 00 :00 (two) Medical times Branch daily. Butalbital- Yes 1{capsu Take 1 U nivers Acetaminoph 9-30 le} capsule by it y of en-Caff 00:00: mouth [place] (FIORICET) 00 every 6 Medica l 50-300-40 (six) Branch mg per hours as capsule needed for Pain (scale 4-6). Butalbital- Yes 1{capsu Take 1 U nivers Acetaminoph 9-30 le} capsule by it y of en-Caff 00:00: mouth [place] (FIORICET) 00 every 6 Medica l 50-300-40 (six) Branch mg per hours as capsule needed for Pain (scale 4-6). Butalbital- Yes 1{capsu Take 1 U nivers Acetaminoph 9-30 le} capsule by it y of en-Caff 00:00: mouth [place] (FIORICET) 00 every 6 Medica l 50-300-40 (six) Branch mg per hours as capsule needed for Pain (scale 4-6). Butalbital Yes 1{capsu Take 1 U nivers Acetaminoph 9-30 le} capsule by it y of en-Caff 00:00: mouth [place] (FIORICET) 00 every 6 Medica l 50-300-40 (six) Branch mg per hours as capsule needed for Pain (scale 4-6). Butalbital- 2020- No 1{capsu Take 1 Univers Acetaminoph 9-30 08-22 le} capsule by i ty of en-Caff 00:00: 00:00 mouth [place] (FIORICET) 00 :00 every 6 Medica l 50-300-40 (six) Branch mg per hours as capsule needed for Pain (scale 4-6). ibuprofen Yes Tooth 800mg Take 4 Anette [...] OR) 13:48: 28 TRAZODONE Yes Take by Catherine s HCL 8-27 mouth. Health (TRAZODONE 13:48: OR) 28 PROPRANOLOL Yes Take by Benjamín ris HCL 8-27 mouth. Health (PROPRANOLO 13:48: L OR) 28 HYDROXYZINE Yes Take by Benjamín ris HCL OR 8-27 mouth. Health 13:48: 28 budesonide- Yes Unspecified 2{puff} Q.5D Inhale 2 Krishnamurthy formoterol 8 chronic Puffs by Jay pan (SYMBICORT) 00:00: bronchitis mouth 2 80-4.5 00 times mcg/actuati daily on inhaler Rinse mouth after each use.. Vital Signs Vital Name Observation Time Observation Value Comments Source Systolic blood 2021-04-26 22:15:00 113 mm[Hg] [facility] [place] Diastolic blood 2021-04-26 22:15:00 79 mm[Hg] [facility] Heart rate 2021-04-26 22:15:00 59 /min [facility] Respiratory rate 2021-04-26 22:15:00 13 /min [facility] Oxygen saturation in 2021-04-26 22:15:00 99 /min [facility] Arterial blood by [facility] Pulse oximetry Branch Body temperature 2021-04-26 17:03:00 36.72 [facility] Body weight 2021-04-26 17:03:00 90.719 kg [facility] BMI 2021-04-26 17:03:00 30.41 kg/m2 [facility] Systolic blood 2021-04-17 23:53:00 130 mm[Hg] Un[facility] [place] Diastolic blood 2021-04-17 23:53:00 75 mm[Hg] Unive [facility] Heart rate 2021-04-17 23:53:00 78 /min [facility] [place] [facility] Body temperature 2021-04-17 23:53:00 36.94 [facility] [place] [facility] Respiratory rate 2021-04-17 23:53:00 20 /min [facility] [place] [facility] Body weight 2021-04-17 23:53:00 90.719 kg [facility] [place] [facility] BMI 2021-04-17 23:53:00 30.41 kg/m2 [facility] [place] [facility] Oxygen saturation in 2021-04-17 23:53:00 100 /min University of Arterial blood by [place] [employer] mary ann Pulse oximetry Branch Systolic blood 2021-04-12 00:15:00 167 mm[Hg] Univer sity of [facility] [place] [facility] Diastolic blood 2021-04-12 00:15:00 106 mm[Hg] Unive rsity of [facility] [place] [facility] Heart rate 2021-04-12 00:15:00 89 /min [facility] [place] [facility] Body temperature 2021-04-12 00:15:00 37.22 [facility] [place] [facility] Respiratory rate 2021-04-12 00:15:00 18 /min [facility] [place] [facility] Body weight 2021-04-12 00:15:00 86.183 kg [facility] [place] [facility] BMI 2021-04-12 00:15:00 28.89 kg/m2 [facility] [place] [facility] Oxygen saturation in 2021-04-12 00:15:00 98 /min University of Arterial blood by [place] [employer] mary ann Pulse oximetry Branch Systolic blood 2020-04-29 19:15:00 124 mm[Hg] Univer [facility]ity [facility] [place] [facility] Diastolic blood 2020-04-29 19:15:00 86 mm[Hg] Unive rsity of [facility] [place] [facility] Heart rate 2020-04-29 19:15:00 59 /min [facility] [place] [facility] Respiratory rate 2020-04-29 19:15:00 17 /min [facility] [place] [facility] Oxygen saturation in 2020-04-29 19:15:00 99 /min University of Arterial blood by [place] [employer] mary ann Pulse oximetry Branch Body temperature 2020-04-29 15:43:00 37.11 [facility] [place] [facility] Body height 2020-04-29 15:43:00 172.7 cm [facility] [place] [facility] Body weight 2020-04-29 15:43:00 86.183 kg [facility] [place] [facility] BMI 2020-04-29 15:43:00 28.89 kg/m2 [facility] [place] [facility] Systolic blood 2020-04-29 19:15:00 124 mm[Hg] Univer [facility]ity [facility] [place] [facility] Diastolic blood 2020-04-29 19:15:00 86 mm[Hg] Unive rsity [facility] [place] [facility] Heart rate 2020-04-29 19:15:00 59 /min [facility] [place] [facility] Respiratory rate 2020-04-29 19:15:00 17 /min [facility] [place] [facility] Oxygen saturation in 2020-04-29 19:15:00 99 /min University of Arterial blood by [employer] Pulse oximetry Branch Body temperature 2020-04-29 15:43:00 37.11 [facility] [place] [facility] Body height 2020-04-29 15:43:00 172.7 cm [facility] [place] [facility] Body weight 2020-04-29 15:43:00 86.183 kg [facility] [place] [facility] BMI 2020-04-29 15:43:00 28.89 kg/m2 [facility] [place] [facility] Systolic blood 2019-04-14 22:23:00 146 mm[Hg] Univer [facility]ity [facility] [place] [facility] Diastolic blood 2019-04-14 22:23:00 82 mm[Hg] Unive rsity of [facility] [place] [facility] Heart rate 2019-04-14 22:23:00 82 /min [facility] [place] [facility] Body temperature 2019-04-14 22:23:00 36.72 [facility] [place] [facility] Respiratory rate 2019-04-14 22:23:00 18 /min [facility] [place] [facility] Body weight 2019-04-14 22:23:00 90.719 kg [facility] [place] [facility] BMI 2019-04-14 22:23:00 30.41 kg/m2 [facility] [place] [facility] Oxygen saturation in 2019-04-14 22:23:00 98 /min University of Arterial blood by [employer] mary ann Pulse oximetry Branch Systolic blood 2019-04-14 22:23:00 146 mm[Hg] [facility]iver [facility]ity [facility] [place] [facility] Diastolic blood 2019-04-14 22:23:00 82 mm[Hg] Unive rsity of [facility] [place] [facility] Heart rate 2019-04-14 22:23:00 82 /min [facility] [place] [facility] Body temperature 2019-04-14 22:23:00 36.72 [facility] [place] [facility] Respiratory rate 2019-04-14 22:23:00 18 /min [facility] [place] [facility] Body weight 2019-04-14 22:23:00 90.719 kg [facility] [place] [facility] BMI 2019-04-14 22:23:00 30.41 kg/m2 [facility] [place] [facility] Oxygen saturation in 2019-04-14 22:23:00 98 /min University of Arterial blood by [place] [employer] Pulse oximetry Branch Systolic blood 2019-03-19 04:00:00 122 mm[Hg] [facility]iver [facility] [place] [facility] Diastolic blood 2019-03-19 04:00:00 78 mm[Hg] Unive rsity of [facility] [place] [facility] Heart rate 2019-03-19 04:00:00 68 /min [facility] [place] [facility] Respiratory rate 2019-03-19 04:00:00 18 /min [facility] [place] [facility] Oxygen saturation in 2019-03-19 04:00:00 97 /min University of Arterial blood by [place] [employer] Pulse oximetry Branch Body temperature 2019-03-19 03:28:00 36.67 [facility] [place] [facility] Body weight 2019-03-19 03:28:00 90.719 kg [facility] [place] [facility] BMI 2019-03-19 03:28:00 30.41 kg/m2 [facility] [place] [facility] Systolic blood 2019-03-19 04:00:00 122 mm[Hg] [facility]iver [facility] [place] [facility] Diastolic blood 2019-03-19 04:00:00 78 mm[Hg] Unive rsity of [facility] [place] [facility] Heart rate 2019-03-19 04:00:00 68 /min [facility] [place] [facility] Respiratory rate 2019-03-19 04:00:00 18 /min [facility] [place] [facility] Oxygen saturation in 2019-03-19 04:00:00 97 /min University of Arterial blood by [employer] Pulse oximetry Branch Body temperature 2019-03-19 03:28:00 36.67 [facility] Body weight 2019-03-19 03:28:00 90.719 kg [facility] BMI 2019-03-19 03:28:00 30.41 kg/m2 [facility] Procedures Procedure Date / Time Performing Clinician Source Performed FREE T4 2021-04-26 20:43:00 [facility] CREATINE KINASE 2021-04-26 20:41:00 Blayne [facility] MAGNESIUM 2021-04-26 20:41:00 [facility] TROPONIN I 2021-04-26 20:41:00 [facility] COMP. METABOLIC PANEL 2021-04-26 20:41:00 Blayne Hairston [facility] ([id number]) [facility] SEDIMENTATION RATE 2021-04-26 19:33:00 Blayne Hairston [facility] CT CERVICAL SPINE WO 2021-04-26 19:00:47 Blayne Hairston [facility] CONTRAST [facility] CT HEAD WO CONTRAST 2021-04-26 19:00:47 Blayne Hairston [facility] COVID-19 (ID NOW RAPID 2021-04-26 18:30:00 Blayne Hairston [facility] TESTING) [facility] THYROID STIMULATING 2021-04-26 18:25:00 Blayne Hairston [facility] HORMONE [facility] CBC WITH DIFF 2021-04-26 18:25:00 Blay[facility] N-TERMINAL PRO-BNP 2021-04-26 18:25:00 Blayne Hairston [facility] POCT TEST 2021-04-26 18:24:00 Blayne Hairston [facility] URINALYSIS 2021-04-26 18:23:00 Blayne Hairst[facility] URINE DRUG (IMMUNOASSAY) 2021-04-26 18:23:00 Blayne Hairston [facility] Medical [facility] SCREEN W/O REFLEX CONSENT/REFUSAL FOR 2021-04-26 16:29:45 Doctor Unassigned, No [facility] T[facility]ATMENT Name Medical Branch ASSIGNMENT OF BENEFITS 2021-04-18 01:01:09 Doctor Unassigned, No [facility] Branch CONSENT/REFUSAL FOR 2021-04-17 23:47:56 Doctor Unassigned, No [facility] [place] DIAGNOSIS AND TREATMENT Name Medical Branch POCT TEST 2021-04-12 00:20:00 John Hinkle [facility] URINALYSIS 2021-04-12 00:18:00 John Hinkle [facility] CONSENT/REFUSAL FOR 2021-04-12 00:10:24 Doctor Unassigned, No Un [facility] [place] DIAGNOSIS AND TREATMENT [facility] XR KNEE 3 VW LEFT 2020-04-29 16:37:20 Amaris Stallings [facility] COMP. METABOLIC PANEL 2020-04-29 16:30:00 Amaris Stallings [facility] ([id number]) [facility] CBC WITH DIFF 2020-04-29 16:30:00 Amaris Stallings [facility] POCT TEST 2020-04-29 16:24:00 Amaris Stallings [facility] RAPID STREP SCREEN FOR 2020-04-29 16:11:00 Amaris Stallings [facility] GROUP A [facility] NOTICE OF PRIVACY 2020-04-29 15:31:17 Doctor Unassigned, No [facility] CONSENT/REFUSAL FOR 2020-04-29 15:31:01 Doctor Unassigned, No [facility] [place] DIAGNOSIS AND TREATMENT [facility] POCT TEST 2019-03-19 04:24:00 Vonda Aguila [facility] NOTICE OF PRIVACY 2019-03-19 03:19:57 [facility]igned, No [facility] CONSENT/REFUSAL FOR 2019-03-19 03:19:41 Doctor Unassigned, No [facility] [place] DIAGNOSIS AND TREATMENT Name Medical Branch Plan of Care Planned Activity Planned Date Details Comments Source Future Scheduled 2021-05-21 IMM Influenza [facility] Test 00:00:00 Seasonal May to October (>/= 19 yrs) [code = IMM Influenza Seasonal May to October (>/= 19 yrs)] Future Scheduled 2020-04-20 Screening for [facility] Test 00:00:00 malignant neoplasm of cervix (procedure) [code = 161390576] Future Scheduled 2015 Screening for [facility] Test 00:00:00 malignant neoplasm of cervix (procedure) [code = 446086742] Future Scheduled 1997 COVID-19 Vaccine [facility] Test 00:00:00 (1) [code = COVID-19 Vaccine (1)] Future Scheduled COVID-[address] [facility] (1) [code = COVID-19 VACCINE (1)] Future Scheduled Screening for [facility] Test malignant neoplasm of cervix (procedure) [code = 940761133] Future Scheduled [facility] [code = INFLUENZA VACCINE] Encounters Start End Encounter Admission Attending Care Care Encounter Source Date/Time Date/Time Type Type Clinicians Facility Department ID 2021-06-21 Emergency [facility] [id number] Univers 20:38:37 [facility] 2021-06-21 Emergency [facility] [id number] Univers 18:47:54 [facility] 2021-06-21 [facility] [id number] Univers 17:14:45 [facility] 2021-06-18 [facility] [id number] Univers 16:34:49 [facility] 2021-04-26 2021-04-26 [facility] [id number] Univers 12:05:00 17:42:00 Blayne Smith [id number] i ty of [place] 4.2.7.2.686 [facility] [id number] [place] 084 Branch 2021-04-26 2021-04-26 Orders Doctor ANTHONY [id number] Univers 00:00:00 00:00:00 Only Unassigned, LINDA [id number] [facility]y [facility] [place] [facility] 4.2.7.2.686 [facility] [id number] [place] 009 Branch 2021-04-17 2021-04-17 Emergency Singer [facility] [id number] Univers 18:55:00 20:04:00 Absil Sarah [id number] i ty of [place] 4.2.7.2.686 [facility] [id number] [address] 2021-04-11 2021-04-11 Emergency [facility] [id number] [facility] 19:20:00 20:53:00 Gisselle Jeter Sarah [id number] i ty of [place] 4.2.7.2.686 [facility] [id number] [place] [address] Branch 2020-04-29 2020-04-29 [facility] [id number] Univers 10:44:00 14:30:00 Amaris Smith [id number] i ty of [place] 4.2.7.2.686 [facility] [id number] [address] 2020-04-29 2020-04-29 [facility] [id number] 10:44:00 14:30:00 Amaris Smith [id number] [place] 4.2.7.2.686 [place] [id number] [facility] 2020-04-29 2020-04-29 Orders Doctor CRUZ [id number] Univers 00:00:00 00:00:00 Only Unassigned, LINDA [id number] [facility] [place] [facility] 4.2.7.2.686 Luis [id number] [place] [address] Branch 2020-04-29 2020-04-29 Orders Doctor CRUZ [id number] 00:00:00 00:00:00 Only Unassigned, LINDA [id number] [place] [facility] 4.2.7.2.686 [id number] 2019-04-14 2019-04-14 Emergency [facility] [id number] Univers 17:25:25 17:58:00 Ad Smith [id number] i ty of [place] 4.2.7.2.686 [facility] [id number] [address] 2019-04-14 2019-04-14 Emergency Concepcion [facility] [id number] 17:25:25 17:58:00 Ad Smith [id number] [place] 4.2.7.2.686 [place] [id number] [facility] 2019-03-18 2019-03-18 Emergency Vonda Aguila [facility] [id number] [facility] 22:34:35 23:51:00 Maribel Smith [id number] i ty of [place] 4.2.7.2.686 [facility] [id number] [place] [address] Branch 2019-03-18 2019-03-18 Emergency Vonda Aguila [facility] [id number] 22:34:35 23:51:00 Maribel Smith [id number] [place] 4.2.7.2.686 [place] [id number] [facility] 2017-04-09 2017-04-09 Emergency [facility] [id number] [place] 00:00:00 00:00:00 Health 2017-04-09 2017-04-09 Emergency [facility] [id number] [place] 00:00:00 00:00:00 [facility] 2017-04-08 2017-04-08 Emergency [facility] [id number] 22:35:00 22:35:00 Health 2017-04-08 2017-04-08 Emergency [facility] [id number] [place] 00:00:00 00:00:00 Health Results Test Description Test Time Test Comments Results Result Comments Source FREE T4 2021-04-26 22:21:43 Test Item Value Reference Range Interpretation Comme nts FREE T4 (test code = See_Comment [Autom ated message] The system [id number]) which generated this result transmitted ref erence range: 0.78 - 2.20 ng/dL:. The reference range was not u sed to interpret this result as normal/abnormal. Lab Interpretation (test code = Normal 29434-9) [facility] [id number] 22:21:43 Test Item Value Reference Range Interpretation Comments FREE T4 (test code = See_Comment [Autom ated message] [id number]) The system whic h generated this result transmitted ref erence range: 0.78 - 2 .20 ng/dL:. The ref erence range was not u sed to interpret this result as normal/abnor mal. Lab Interpretation (test Normal code = 15664-1) [facility] [id number] 21:24:56 Test Item Value Reference Interpretation Comments Range TROPONIN I (test <0.012 See_Comment [Automated code = [id number]) message] The system which generated this result transmitted reference range : <=0.034 ng/mL. The reference range was not used to interpret this result as normal/abnormal . DIEGO (test code = Reference (Normal) DIEGO) Range (defined by the 99th percentile reference limit): <= 0.034 ng/mL Note: Cardiac troponin begins to rise 3-4 hours after the onset of ischemia. Repeat in 4-6 hours if the sample was drawn within 3-4 hours of the onset of the symptom and found normal. Diagnosis of myocardial injury is made with acute changes in cTn concentrations with at least one serial sample above the 99th percentile upper reference limit (URL), taken together with the patient's clinical presentation. Biotin has been reported to cause a negative bias, interpret results relative to patient's use of biotin. Lab Interpretation Normal (test code = 94337-0) [facility] [id number] 21:24:56 Test Item Value Reference Interpretation Comments Range TROPONIN I (test <0.012 See_Comment [Automated code = [id number]) message] The system which generated this result transmitted reference range : <=0.034 ng/mL. The reference range was not used to interpret this result as normal/abnormal . DIEGO (test code = Reference (Normal) DIEGO) Range (defined by the 99th percentile reference limit): <= 0.034 ng/mL Note: Cardiac troponin begins to rise 3-4 hours after the onset of ischemia. Repeat in 4-6 hours if the sample was drawn within 3-4 hours of the onset of the symptom and found normal. Diagnosis of myocardial injury is made with acute changes in cTn concentrations with at least one serial sample above the 99th percentile upper reference limit (URL), taken together with the patient's clinical presentation. Biotin has been reported to cause a negative bias, interpret results relative to patient's use of biotin. Lab Interpretation Normal (test code = 55506-3) [facility] Test Item Value Reference Range Interpretation Comments MAGNESIUM (test code = 9955327253) 1.7 mg/dL 1.7-2.4 Lab Interpretation (test code = Normal 40422-6) [facility] Test Item Value Reference Range Interpretation Comments MAGNESIUM (test code = 2331679673) 1.7 mg/dL 1.7-2.4 Lab Interpretation (test code = Normal 79944-7) [facility]OLIC PAN[facility] ([id number])2021-04-26 21:14:18 Test Item Value Reference Range Interpretation Comments NA (test code = 139 mmol/L 135-145 1058351948) K (test code = 4.1 mmol/L 3.5-5.0 7822226777) CL (test code = 110 mmol/L 98-108 H 5118422485) CO2 TOTAL (test code = 25 mmol/L 23-31 4322166518) AGAP (test code = 2-16 0988176800) BUN (test code = 6 mg/dL 7-23 L 7483173062) GLUCOSE (test code = 96 mg/dL 70-110 5281527157) CREATININE (test code = 0.50 mg/dL 0.50-1.04 5482015153) TOTAL BILI (test code = 0.2 mg/dL 0.1-1.8 9754659079) CALCIUM (test code = 8.8 mg/dL 8.6-10.6 6555377474) T PROTEIN (test code = 6.9 g/dL 6.3-8.2 0019701414) ALBUMIN (test code = 4.0 g/dL 3.5-5.0 5019954151) ALK PHOS (test code = 73 U/L 34-122 3900701395) ALTv (test code = 15 U/L 5-35 1742-6) AST(SGOT) (test code = 20 U/L 13-40 1347134236) eGFR (test code = mL/min/1.73m2 3913322515) DIEGO (test code = DIEGO) Association of Glomerular Filtration Rate (GFR) and Staging of Kidney Disease* + --+ --+ ------+| GFR (mL/min/1.73 m2) ?| With Kidney Damage ?| ?Without Kidney Damage+ --------+ --------+ +| ?>90 ?| ?Stage one ?| ? Normal ?+ ---+ ---+ -------+| ?60-89 ?| ?Stage two ?| ? Decreased GFR ? + --+ --+ ------+| ?30-59 ?| ?Stage three ?| ? Stage three ? + --+ --+ ------+| ?15 ?| ?Stage four ? | ? Stage four ?+ ---+ ---+ -------+| ?<15 (or dialysis) ? ?| ?Stage five ? | ? Stage five ?+ ---+ ---+ -------+ *Each stage assumes the associated GFR level has been in effect for at least three months. ?Stages 1 to 5, with or without kidney disease, indicate chronic kidney disease. Notes: Determination of stages one and two (with eGFR >59mL/min/1.73 m2) requires estimation of kidney damage for at least three months as defined by structural or functional abnormalities of the kidney, manifested by either:Pathological abnormalities or Markers of kidney damage (including abnormalities in the composition of the blood or urine or abnormalities in imaging tests). Lab Interpretation Abnormal (test code = 41637-8) [facility]. METABOLIC PANEL ([id number])2021-04-26 21:14:18 Test Item Value Reference Range Interpretation Comments NA (test code = 139 mmol/L 135-145 8788085452) K (test code = 4.1 mmol/L 3.5-5.0 7576615264) CL (test code = 110 mmol/L 98-108 H 5986478262) CO2 TOTAL (test code = 25 mmol/L 23-31 1493114092) AGAP (test code = 2-16 4114298976) BUN (test code = 6 mg/dL 7-23 L 2324718500) GLUCOSE (test code = 96 mg/dL 70-110 7651366422) CREATININE (test code = 0.50 mg/dL 0.50-1.04 0613803549) TOTAL BILI (test code = 0.2 mg/dL 0.1-1.6 4660708633) CALCIUM (test code = 8.8 mg/dL 8.6-10.6 7569806956) T PROTEIN (test code = 6.9 g/dL 6.3-8.2 2871358187) ALBUMIN (test code = 4.0 g/dL 3.5-5.0 4002356080) ALK PHOS (test code = 73 U/L 34-122 4299455798) ALTv (test code = 15 U/L 5-35 1742-6) AST(SGOT) (test code = 20 U/L 13-40 8951855112) eGFR (test code = mL/min/1.73m2 6906398686) DIEGO (test code = DIEGO) Association of Glomerular Filtration Rate (GFR) and Staging of Kidney Disease* + --+ --+ ------+| GFR (mL/min/1.73 m2) ?| With Kidney Damage ?| ?Without Kidney Damage+ --------+ --------+ +| ?>90 ?| ?Stage one ?| ? Normal ?+ ---+ ---+ -------+| ?60-89 ?| ?Stage two ?| ? Decreased GFR ? + --+ --+ ------+| ?30-59 ?| ?Stage three ?| ? Stage three ? + --+ --+ ------+| ?15-29 ?| ?Stage four ? | ? Stage four ?+ ---+ ---+ -------+| ?<15 (or dialysis) ? ?| ?Stage five ? | ? Stage five ?+ ---+ ---+ -------+ *Each stage assumes the associated GFR level has been in effect for at least three months. ?Stages 1 to 5, with or without kidney disease, indicate chronic kidney disease. Notes: Determination of stages one and two (with eGFR >59mL/min/1.73 m2) requires estimation of kidney damage for at least three months as defined by structural or functional abnormalities of the kidney, manifested by either:Pathological abnormalities or Markers of kidney damage (including abnormalities in the composition of the blood or urine or abnormalities in imaging tests). Lab Interpretation Abnormal (test code = 88371-1) [facility] [id number] 21:14:17 Test Item Value Reference Range Interpretation Comments CK (test code = 1777023544) 35 U/L 33-194 Lab Interpretation (test code = Normal 20541-1) [facility] [id number] 21:14:17 Test Item Value Reference Range Interpretation Comments CK (test code = 3872060527) 35 U/L 33-194 Lab Interpretation (test code = Normal 81137-6) [facility] DRUG (IMMUNOASSAY) - COMPREHENSIVE DRUG SCREEN W/O [id number] 20:20:42 Test Item Value Reference Range Interpretation Comments AMPHET (test code = Negative Negative 5899930262) NASEEM U (test code = Negative Negative 3081098747) BENZO U (test code = Negative Negative 8205810028) Cocaine Metabolite (test Negative Negative code = 0866401833) METHADONE (test code = Negative Negative 3876619794) OPIATES (test code = Negative Negative 8710269601) PCP (test code = Negative Negative 8127072232) THC (test code = Presumptive Positive Negative A 1467173554) DIEGO (test code = DIEGO) Urine Drug Cutoff Ranges Cocaine: ? 150 ng/mLBenzodiazepines: ? ? 200 ng/mLMethadone: ? 300 ng/mLAmphetamine: ? 1,000 ng/mLOpiates: ? 300 ng/mLCannabinoids: ?50 ng/mLPhencyclidine: ? ? ? 25 ng/mLBarbiturates: ?200 ng/mL The results are to be used only for medical (i.e., treatment) purposes. Unconfirmed screening results must not be used for non-medical purposes (e.g., employment testing, legal testing). Lab Interpretation (test Abnormal code = 50631-5) [facility] DRUG (IMMUNOASSAY) - COMPREHENSIVE DRUG SCREEN W/O [id number] 20:20:42 Test Item Value Reference Range Interpretation Comments AMPHET (test code = Negative Negative 1275126078) NASEEM U (test code = Negative Negative 9030874654) BENZO U (test code = Negative Negative 2211422452) Cocaine Metabolite (test Negative Negative code = 8441583291) METHADONE (test code = Negative Negative 1056114116) OPIATES (test code = Negative Negative 2875763426) PCP (test code = Negative Negative 1429548347) THC (test code = Presumptive Positive Negative A 9860466693) DIEGO (test code = DIEGO) Urine Drug Cutoff Ranges Cocaine: ? 150 ng/mLBenzodiazepines: ? ? 200 ng/mLMethadone: ? 300 ng/mLAmphetamine: ? 1,000 ng/mLOpiates: ? 300 ng/mLCannabinoids: ?50 ng/mLPhencyclidine: ? ? ? 25 ng/mLBarbiturates: ?200 ng/mL The results are to be used only for medical (i.e., treatment) purposes. Unconfirmed screening results must not be used for non-medical purposes (e.g., employment testing, legal testing). Lab Interpretation (test Abnormal code = 82423-6) [facility] [id number] 20:17:29 Test Item Value Reference Range Interpretation Comments ESR (test code = See_Comment [Automated message] 5973873747) The system [employer] generated this result transmitted ref erence range: 0 - 20 m m/HR. The reference r dinora was not used to interpret this result as normal/abnor mal. Lab Interpretation (test Normal code = 08465-1) [facility] [id number] 20:17:29 Test Item Value Reference Range Interpretation Comments ESR (test code = See_Comment [Automated message] 7839510449) The system [employer] generated this result transmitted ref erence range: 0 - 20 m m/HR. The reference r dinora was not used to interpret this result as normal/abnor mal. Lab Interpretation (test Normal code = 98540-9) [facility] [id number] 20:14:11 Test Item Value Reference Range Interpretation Comments TSH (test code = See_Comment [Automated message] 5926215253) The system [employer] generated this result transmitted ref erence range: 0.45 - 4 .70 mIU/L. The refe rence range was not u sed to interpret this result as normal/abnor mal. Lab Interpretation (test Normal code = 51957-4) [facility] [id number] 20:14:11 Test Item Value Reference Range Interpretation Comments TSH (test code = See_Comment [Automated message] 0550570080) The system [employer] generated this result transmitted ref erence range: 0.45 - 4 .70 mIU/L. The refe rence range was not u sed to interpret this result as normal/abnor mal. Lab Interpretation (test Normal code = 49095-1) [facility] [id number] 20:03:34 Test Item Value Reference Range Interpretation Comments NT-proBNP (test code 42 pg/mL See_Comment [Autom ated = 1084167432) message] The system which generated this result transmitted reference range : <=125. The reference range was not used to interpret this result as normal/abnormal . DIEGO (test code = DIEGO) Biotin has been reported to cause a negative bias, interpret results relative to patient's use of biotin. Lab Interpretation Normal (test code = 87632-1) [facility] [id number] 20:03:34 Test Item Value Reference Range Interpretation Comments NT-proBNP (test code 42 pg/mL See_Comment [Autom ated = 5935604905) message] The system which generated this result transmitted reference range : <=125. The reference range was not used to interpret this result as normal/abnormal . DIEGO (test code = DIEGO) Biotin has been reported to cause a negative bias, interpret results relative to patient's use of biotin. Lab Interpretation Normal (test code = 07226-1) [facility] WITH [id number] 19:45:17 Test Item Value Reference Range Interpretation Comments WBC (test code = See_Comment H [Automated 6590-2) message] The sy stem which generated this result transmitted reference range : 4.30 - 11.10 10*3/?L. The reference range was not used to interpret this result as normal/abnormal . RBC (test code = See_Comment [Automated 379-8) message] The sy stem which generated this result transmitted reference range : 3.93 - 5.25 10*6/?L. The reference range was not used to interpret this result as normal/abnormal . HGB (test code = 13.8 g/dL 11.6-15.0 718-7) HCT (test code = 41.4 % 35.7-45.2 4544-3) MCV (test code = 93.7 fL 80.6-95.5 787-2) MCH (test code = 31.2 pg 25.9-32.8 785-6) MCHC (test code = 33.3 g/dL 31.6-35.1 786-4) RDW-SD (test code = 43.4 fL 39.0-49.9 19316-1) RDW-CV (test code = 12.5 % 12.0-15.5 788-0) PLT (test code = See_Comment H [Automated 777-3) message] The sy stem which generated this result transmitted reference range : 166 - 358 10*3/ ?L. The reference r dinora was not used to interpret this result as normal/abnormal . MPV (test code = 10.1 fL 9.5-12.9 39013-3) NRBC/100 WBC (test See_Comment [Automat ed code = 6023421256) message] The system which generated this result transmitted reference range : 0.0 - 10.0 /100 WBCs. The refer ence range was not u sed to interpret th is result as normal/abnormal . NRBC x10^3 (test code <0.01 See_Comment [Auto mated = 5633565937) message] The s ystem which generated this result transmitted reference range : 10*3/?L. The reference range was not used to interpret this result as normal/abnormal . GRAN MAT (NEUT) % 60.0 % (test code = 770-8) IMM GRAN % (test code 0.80 % = 0882544072) LYMPH % (test code = 31.1 % 736-9) MONO % (test code = 5.5 % 5905-5) EOS % (test code = 2.0 % 713-8) BASO % (test code = 0.6 % 706-2) GRAN MAT x10^3(ANC) 7.94 10*3/uL 1.88-7.09 H (test code = 2508048455) IMM GRAN x10^3 (test 0.11 10*3/uL 0.00-0.06 H code = 2586003715) LYMPH x10^3 (test code 4.13 10*3/uL 1.32-3.29 H = 731-0) MONO x10^3 (test code 0.73 10*3/uL 0.33-0.92 = 742-7) EOS x10^3 (test code = 0.27 10*3/uL 0.03-0.39 711-2) BASO x10^3 (test code 0.08 10*3/uL 0.01-0.07 H = 704-7) Lab Interpretation Abnormal (test code = 94143-7) [facility] WITH [id number] 19:45:17 Test Item Value Reference Range Interpretation Comments WBC (test code = See_Comment H [Automated 5790-2) message] The sy stem which generated this result transmitted reference range : 4.30 - 11.10 10*3/?L. The reference range was not used to interpret this result as normal/abnormal . RBC (test code = See_Comment [Automated 649-8) message] The sy stem which generated this result transmitted reference range : 3.93 - 5.25 10*6/?L. The reference range was not used to interpret this result as normal/abnormal . HGB (test code = 13.8 g/dL 11.6-15.0 718-7) HCT (test code = 41.4 % 35.7-45.2 4544-3) MCV (test code = 93.7 fL 80.6-95.5 787-2) MCH (test code = 31.2 pg 25.9-32.8 785-6) MCHC (test code = 33.3 g/dL 31.6-35.1 786-4) RDW-SD (test code = 43.4 fL 39.0-49.9 40870-2) RDW-CV (test code = 12.5 % 12.0-15.5 788-0) PLT (test code = See_Comment H [Automated 777-3) message] The sy stem which generated this result transmitted reference range : 166 - 358 10*3/ ?L. The reference r dinora was not used to interpret this result as normal/abnormal . MPV (test code = 10.1 fL 9.5-12.9 33172-0) NRBC/100 WBC (test See_Comment [Automat ed code = 3060137772) message] The system which generated this result transmitted reference range : 0.0 - 10.0 /100 WBCs. The refer ence range was not u sed to interpret th is result as normal/abnormal . NRBC x10^3 (test code <0.01 See_Comment [Auto mated = 0545546823) message] The s ystem which generated this result transmitted reference range : 10*3/?L. The reference range was not used to interpret this result as normal/abnormal . GRAN MAT (NEUT) % 60.0 % (test code = 770-8) IMM GRAN % (test code 0.80 % = 2930120492) LYMPH % (test code = 31.1 % 736-9) MONO % (test code = 5.5 % 5905-5) EOS % (test code = 2.0 % 713-8) BASO % (test code = 0.6 % 706-2) GRAN MAT x10^3(ANC) 7.94 10*3/uL 1.88-7.09 H (test code = 7598892209) IMM GRAN x10^3 (test 0.11 10*3/uL 0.00-0.06 H code = 2416004834) LYMPH x10^3 (test code 4.13 10*3/uL 1.32-3.29 H = 731-0) MONO x10^3 (test code 0.73 10*3/uL 0.33-0.92 = 742-7) EOS x10^3 (test code = 0.27 10*3/uL 0.03-0.39 711-2) BASO x10^3 (test code 0.08 10*3/uL 0.01-0.07 H = 704-7) Lab Interpretation Abnormal (test code = 96729-1) [facility] NOW RAPID TESTING[facility]2021-04-26 19:33:11 Test Item Value Reference Range Interpretation Comments SARS-CoV-2 Rapid ID NOW Not Detected Not Detected (test code = 72421-3) DIEGO (test code = DIEGO) ID NOW COVID-19 Assay is an isothermal nucleic acid amplification test intended for the qualitative detection of nucleic acid from SARS-CoV-2 viral RNA in nasopharyngeal (VIDEO SURVEILLANCE TECHNICIAN) specimens. It is used under Emergency Use Authorization (EUA) by FDA. The limit of detection (LOD) of the assay is 125 Genome Equivalents/mL. A positive result is indicative of the presence of SARS-CoV-2 RNA. ?Clinical correlation with patient history and other diagnostic information is necessary to determine patient infection status. A negative (Not Detected) result does not preclude SARS-CoV-2 infection. In patients with clinical symptoms and other tests that are consistent with SARS-CoV-2 infection, negative results should be treated as presumptive negative and a new specimen should be tested with alternative PCR molecular test. Invalid: Please collect a new specimen for repeat patient testing if clinically indicated. Lab Interpretation Normal (test code = 96842-9) [facility]APID [facility])2021-04-26 19:33:11 Test Item Value Reference Range Interpretation Comments SARS-CoV-2 Rapid ID NOW Not Detected Not Detected (test code = 82024-7) DIEGO (test code = DIEGO) ID NOW COVID-19 Assay is an isothermal nucleic acid amplification test intended for the qualitative detection of nucleic acid from SARS-CoV-2 viral RNA in nasopharyngeal (VIDEO SURVEILLANCE TECHNICIAN) specimens. It is used under Emergency Use Authorization (EUA) by FDA. The limit of detection (LOD) of the assay is 125 Genome Equivalents/mL. A positive result is indicative of the presence of SARS-CoV-2 RNA. ?Clinical correlation with patient history and other diagnostic information is necessary to determine patient infection status. A negative (Not Detected) result does not preclude SARS-CoV-2 infection. In patients with clinical symptoms and other tests that are consistent with SARS-CoV-2 infection, negative results should be treated as presumptive negative and a new specimen should be tested with alternative PCR molecular test. Invalid: Please collect a new specimen for repeat patient testing if clinically indicated. Lab Interpretation Normal (test code = 63872-2) [facility] [id number] 19:30:19 1. ?No acute intracranial abnormality. ? 2. ?No acute osseous abnormality of the cervical spine. ? Preliminary Report Dictated by Resident: Jesus Manuel Sheikh I, Makenna Ervin MD., have reviewed this study and agree with the abovereport.EXAM: CT HEAD WO CONTRAST,EXAM: CT CERVICAL SPINE WO CONTRAST HISTORY: 36 years-old Female; Head trauma, mod-severe . ".I got up to makea peanut butter and jelly sandwich and I woke up on the floor. ?I thenthrew up all over the floor and had diarrhea" TECHNIQUE: Axial CT of the head and cervical spine was performed andreconstructed at 5 mm intervals. Coronal and sagittal reformatted imageswere generated. COMPARISON: CT head dated 05/20/2017. FINDINGS: Head: The ventricles and cerebral sulci are normal in caliber and configuration.No hydrocephalus, midline shift or pathological extra-axial fluidcollection is present. The basal cisterns are unremarkable. No acute intracranial hemorrhage or significant mass effect is visualized.No parenchymal attenuation abnormality isseen. The wrihgt- white matterdifferentiation is preserved. The mastoid air cells and paranasal air sinuses are clear. The calvariumand central skull base are unremarkable. An occipital spur is seen. Cervical Spine: No acute fracture or traumatic dislocation is visualized. Straightening ofnormal cervical lordosis is seen. The vertebral bodies are normal in heightand in normal alignment. The intervertebral disc spaces are preserved. [facility], Radiant Results Inft User - 04/26/2021 2:31 PM CDTFormatting ofthis note might be different from the original.EXAM: CT HEAD WO CONTRAST,EXAM: CT CERVICAL SPINE WO CONTRASTHISTORY: 36 years-old Female; Head trauma, mod-severe . ".I got up to makea peanut butter andjelly sandwich and I woke up on the floor. ?I thenthrew up all over the floor and had diarrhea"TECHNI QUE: Axial CT of the head and cervical spine was performed andreconstructed at 5 mm intervals. Coronal and sagittal reformatted imageswere generated.COMPARISON: CT head dated 05/20/2017.FINDINGS:Head:The ventricles and cerebral sulci are normal in caliber and configuration.No hydrocephalus, midline shift or pathological extra-axial fluidcollection is present. The basal cisterns are unremarkable.No acute intracranial hemorrhage or significant mass effect is visualized.No parenchymal attenuation abnormality is seen. The wright-white matterdifferentiation is preserved. The mastoid air cells and paranasalair sinuses are clear. The calvariumand central skull base are unremarkable. An occipital spur is seen.Cervical Spine:No acute fracture or traumatic dislocation is visualized. Straightening ofnormal cervical lordosis is seen. The vertebral bodies are normal in heightand in normal alignment. The intervertebral disc spaces are preserved.IMPRESSION1. No acute intracranial abnormality. 2. No acute osseous abnormality of the cervical spine. Preliminary Report Dictated by Resident: Makenna Chambers MD., have reviewed this study and agree with the abovereport.[facility] [id number] 19:30:19 1. ?No acute intracranial abnormality. ? 2. ?No acute osseous abnormality of the cervical spine. ? Preliminary Report Dictated by Resident: Makenna Moran MD., have reviewed this study and agree with the abovereport.EXAM: CT HEAD WO CONTRAST,EXAM: CT CERVICAL SPINE WO CONTRAST HISTORY: 36 years-old Female; Head trauma, mod-severe . ".I got up to makea peanut butter and jelly sandwich and I woke up on the floor. ?I thenthrew up all over the floor and had diarrhea" TECHNIQUE: Axial CT of the head and cervical spine was performed andreconstructed at 5 mm intervals. Coronal and sagittal reformatted imageswere generated. COMPARISON: CT head dated 05/20/2017. FINDINGS: Head: The ventricles and cerebral sulci are normal in caliber and configuration.No hydrocephalus, midline shift or pathological extra-axial fluidcollection is present. The basal cisterns are unremarkable. No acute intrac ranial hemorrhage or significant mass effect is visualized.No parenchymal attenuation abnormality isseen. The wright-white matterdifferentiation is preserved. The mastoid air cells and paranasal air sinuses are clear. The calvariumand central skull base are unremarkable. An occipital spur is seen. Cervical Spine: No acute fracture or traumatic dislocation is visualized. Straightening ofnormal cervical lordosis is seen. The vertebral bodies are normal in heightand in normal alignment. The intervertebral disc spaces are preserved. [facility], Radiant Results Inft User - 04/26/2021 2:31 PM CDTFormatting ofthis note might be different from the original.EXAM: CT HEAD WO CONTRAST,EXAM: CT CERVICAL SPINE WO CONTRASTHISTORY: 36 years-old Female; Head trauma, mod- severe . ".I got up to makea peanut butter andjelly sandwich and I woke up on the floor. ?I thenthrew up all over the floor and had diarrhea"TECHNIQUE: Axial CT of the head and cervical spine was performed andreconstructed at 5 mm intervals. Coronal and sagittal reformatted imageswere generated.COMPARISON: CT head dated 05/20/2017.FINDINGS:Head:The ventricles and cerebral sulci are normal in caliber and configuration.No hydrocephalus, midline shift or pathological extra-axial fluidcollection is present. The basal cisterns are unremarkable.No acute intracranial hemorrhage or significant mass effect is visualized.No parenchymal attenuation abnormality is seen. The wright-white matterdifferentiation is preserved. The mastoid air cells and paranasalair sinuses are clear. The calvariumand central skull base are unremarkable. An occipital spur is seen.Cervical Spine:No acute fracture or traumatic dislocation is visualized. Straightening ofnormal cervical lordosis is seen. The vertebral bodies are normal in heightand in normal alignment. The intervertebral disc spaces are preserved.IMPRESSION1. No acute intracranial abnormality. 2. No acute osseous abnormality of the cervical spine. Preliminary Report Dictated by Resident: Makenna Chambers MD., have reviewed this study and agree with the abovereport.[facility] 2021-04-26 19:30:19 1. ?No acute intracranial abnormality. ? 2. ?No acute osseous abnormality of the cervical spine. ? Preliminary Report Dictated by Resident: Makenna Moran MD., have reviewed this study and agree with the abovereport.EXAM: CT HEAD WO CONTRAST,EXAM: CT CERVICAL SPINE WO CONTRAST HISTORY: 36 years-old Female; Head trauma, mod-severe . ".I got up to makea peanut butter and jelly sandwich and I woke up on the floor. ?I thenthrew up all over the floor and had diarrhea" TECHNIQUE: Axial CT of the head and cervical spine was performed andreconstructed at 5 mm intervals. Coronal and sagittal reformatted imageswere generated. COMPARISON: CT head dated 05/20/2017. FINDINGS: Head: The ventricles and cerebral sulci are normal in caliber and configuration.No hydrocephalus, midline shift or pathological extra-axial fluidcollection is present. The basal cisterns are unremarkable. No acute intrac ranial hemorrhage or significant mass effect is visualized.No parenchymal attenuation abnormality isseen. The wright-white matterdifferentiation is preserved. The mastoid air cells and paranasal air sinuses are clear. The calvariumand central skull base are unremarkable. An occipital spur is seen. Cervical Spine: No acute fracture or traumatic dislocation is visualized. Straightening ofnormal cervical lordosis is seen. The vertebral bodies are normal in heightand in normal alignment. The intervertebral disc spaces are preserved. [facility], Radiant Results Inft User - 04/26/2021 2:31 PM CDTFormatting ofthis note might be different from the original.EXAM: CT HEAD WO CONTRAST,EXAM: CT CERVICAL SPINE WO CONTRASTHISTORY: 36 years-old Female; Head trauma, mod- severe . ".I got up to makea peanut butter andjelly sandwich and I woke up on the floor. ?I thenthrew up all over the floor and had diarrhea"TECHNIQUE: Axial CT of the head and cervical spine was performed andreconstructed at 5 mm intervals. Coronal and sagittal reformatted imageswere generated.COMPARISON: CT head dated 05/20/2017.FINDINGS:Head:The ventricles and cerebral sulci are normal in caliber and configuration.No hydrocephalus, midline shift or pathological extra-axial fluidcollection is present. The basal cisterns are unremarkable.No acute intracranial hemorrhage or significant mass effect is visualized.No parenchymal attenuation abnormality is seen. The wright-white matterdifferentiation is preserved. The mastoid air cells and paranasalair sinuses are clear. The calvariumand central skull base are unremarkable. An occipital spur is seen.Cervical Spine:No acute fracture or traumatic dislocation is visualized. Straightening ofnormal cervical lordosis is seen. The vertebral bodies are normal in heightand in normal alignment. The intervertebral disc spaces are preserved.IMPRESSION1. No acute intracranial abnormality. 2. No acute osseous abnormality of the cervical spine. Preliminary Report Dictated by Resident: Makenna Chambers MD., have reviewed this study and agree with the abovereport.[facility] [id number] 19:30:19 1. ?No acute intracranial abnormality. ? 2. ?No acute osseous abnormality of the cervical spine. ? Preliminary Report Dictated by Resident: Jesus Manuel Sheikh I, Makenna Ervin MD., have reviewed this study and agree with the abovereport.EXAM: CT HEAD WO CONTRAST,EXAM: CT CERVICAL SPINE WO CONTRAST HISTORY: 36 years-old Female; Head trauma, mod-severe . ".I got up to makea peanut butter and jelly sandwich and I woke up on the floor. ?I thenthrew up all over the floor and had diarrhea" TECHNIQUE: Axial CT of the head and cervical spine was performed andreconstructed at 5 mm intervals. Coronal and sagittal reformatted imageswere generated. COMPARISON: CT head dated 05/20/2017. FINDINGS: Head: The ventricles and cerebral sulci are normal in caliber and configuration.No hydrocephalus, midline shift or pathological extra-axial fluidcollection is present. The basal cisterns are unremarkable. No acute intrac ranial hemorrhage or significant mass effect is visualized.No parenchymal attenuation abnormality isseen. The wright-white matterdifferentiation is preserved. The mastoid air cells and paranasal air sinuses are clear. The calvariumand central skull base are unremarkable. An occipital spur is seen. Cervical Spine: No acute fracture or traumatic dislocation is visualized. Straightening ofnormal cervical lordosis is seen. The vertebral bodies are normal in heightand in normal alignment. The intervertebral disc spaces are preserved. [facility], Radiant Results Inft User - 04/26/2021 2:31 PM CDTFormatting ofthis note might be different from the original.EXAM: CT HEAD WO CONTRAST,EXAM: CT CERVICAL SPINE WO CONTRASTHISTORY: 36 years-old Female; Head trauma, mod- severe . ".I got up to makea peanut butter andjelly sandwich and I woke up on the floor. ?I thenthrew up all over the floor and had diarrhea"TECHNIQUE: Axial CT of the head and cervical spine was performed andreconstructed at 5 mm intervals. Coronal and sagittal reformatted imageswere generated.COMPARISON: CT head dated 05/20/2017.FINDINGS:Head:The ventricles and cerebral sulci are normal in caliber and configuration.No hydrocephalus, midline shift or pathological extra-axial fluidcollection is present. The basal cisterns are unremarkable.No acute intracranial hemorrhage or significant mass effect is visualized.No parenchymal attenuation abnormality is seen. The wright-white matterdifferentiation is preserved. The mastoid air cells and paranasalair sinuses are clear. The calvariumand central skull base are unremarkable. An occipital spur is seen.Cervical Spine:No acute fracture or traumatic dislocation is visualized. Straightening ofnormal cervical lordosis is seen. The vertebral bodies are normal in heightand in normal alignment. The intervertebral disc spaces are preserved.IMPRESSION1. No acute intracranial abnormality. 2. No acute osseous abnormality of the cervical spine. Preliminary Report Dictated by Resident: Makenna Chambers MD., have reviewed this study and agree with the abovereport.[facility]14 Test Item Value Reference Range Interpretation Comments APPEARANCE (test code = Clear Clear 9961718862) COLOR (test code = Yellow Yellow 4746233262) PH (test code = 4.8-8.0 9443402572) SP GRAVITY (test code = 1.003-1.030 6919332838) GLU U QUAL (test code = Normal Normal 5374773548) BLOOD (test code = Negative Negative 7122760475) KETONES (test code = Negative Negative 4469707327) PROTEIN (test code = Negative Negative 2887-8) UROBILIN (test code = Normal Normal 8800450575) BILIRUBIN (test code = Negative Negative 9286064957) NITRITE (test code = Negative Negative 6647108526) LEUK DAKSHA (test code = Negative Negative 9204272914) RBC/HPF (test code = See_Comment [Autom ated message] 0597862711) The system [employer] generated this result transmitted ref erence range: 0 - 3 HP F. The reference range was not used to int erpret this result as normal/abnormal . WBC/HPF (test code = See_Comment [Autom ated message] 7864640201) The system [employer] generated this result transmitted ref erence range: 0 - 5 HP F. The reference range was not used to int erpret this result as normal/abnormal . BACTERIA (test code = Few Negative A 4704844766) SQ EPITH (test code = HPF 8337597255) Lab Interpretation (test Abnormal code = 63900-3) [facility]29:14 Test Item Value Reference Range Interpretation Comments APPEARANCE (test code = Clear Clear 3085466563) COLOR (test code = Yellow Yellow 1862090303) PH (test code = 4.8-8.0 4435091543) SP GRAVITY (test code = 1.003-1.030 0767031990) GLU U QUAL (test code = Normal Normal 9936538401) BLOOD (test code = Negative Negative 7027153741) KETONES (test code = Negative Negative 7834939739) PROTEIN (test code = Negative Negative 2887-8) UROBILIN (test code = Normal Normal 5604043834) BILIRUBIN (test code = Negative Negative 1367156863) NITRITE (test code = Negative Negative 6060846104) LEUK DAKSHA (test code = Negative Negative 7540742868) RBC/HPF (test code = See_Comment [Autom ated message] 3874310069) The system [employer] generated this result transmitted ref erence range: 0 - 3 HP F. The reference range was not used to int erpret this result as normal/abnormal . WBC/HPF (test code = See_Comment [Autom ated message] 4855598153) The system [employer] generated this result transmitted ref erence range: 0 - 5 HP F. The reference range was not used to int erpret this result as normal/abnormal . BACTERIA (test code = Few Negative A 5847597074) SQ EPITH (test code = HPF 8384084128) Lab Interpretation (test Abnormal code = 37471-2) [facility] [id number] 18:24:00 Test Item Value Reference Range Interpretation Comments POCT PREG (test code = 1605) negative On board controls acceptable with present C Line (test code = 3574) POCT PREG LOT # (test code = 3575) [id number] POCT PREG TEST DATE (test 08/20/2022 code = 3576) Lab Interpretation (test code = Normal 20285-3) [facility] [id number] 18:24:00 Test Item Value Reference Range Interpretation Comments POCT PREG (test code = 1605) negative On board controls acceptable with present C Line (test code = 3574) POCT PREG LOT # (test code = 3575) [id number] POCT PREG TEST DATE (test 08/20/2022 code = 3576) Lab Interpretation (test code = Normal 40788-1) [facility] 00:35:10 Test Item Value Reference Range Interpretation Comments APPEARANCE (test code = Clear Clear 5751250403) COLOR (test code = Yellow Yellow 9913147464) PH (test code = 4.8-8.0 7077439011) SP GRAVITY (test code = 1.003-1.030 1547147808) GLU U QUAL (test code = Normal Normal 7440598541) BLOOD (test code = 1+ Negative A 5920275466) KETONES (test code = Negative Negative 7637424104) PROTEIN (test code = Negative Negative 2887-8) UROBILIN (test code = Normal Normal 8992796478) BILIRUBIN (test code = Negative Negative 5095565335) NITRITE (test code = Negative Negative 3063686631) LEUK DAKSHA (test code = 75/uL Negative A 4227074912) RBC/HPF (test code = See_Comment H [Autom ated message] 3694869997) The system [employer] generated this result transmitted ref erence range: 0 - 3 HP F. The reference range was not used to int erpret this result as normal/abnormal . WBC/HPF (test code = See_Comment H [Autom ated message] 8626606850) The system [employer] generated this result transmitted ref erence range: 0 - 5 HP F. The reference range was not used to int erpret this result as normal/abnormal . BACTERIA (test code = Few Negative A 7303863442) SQ EPITH (test code = HPF 5202821741) Lab Interpretation (test Abnormal code = 46214-3) [facility] [id number] 00:20:00 Test Item Value Reference Range Interpretation Comments POCT PREG (test code = 1605) negative On board controls acceptable with present C Line (test code = 3574) POCT PREG LOT # (test code = 3575) [id number] POCT PREG TEST DATE (test code = 3576) Lab Interpretation (test code = Normal 74227-2) [facility] STREP SCREEN FOR GROUP [id number] 17:29:00 Test Item Value Reference Range Interpretation Comments Streptococcus pyogenes (group A) Negative Negative antigen (test code = 45874-6) Lab Interpretation (test code = Normal 84412-1) [facility]. METABOLIC PANEL (14408)2020-04-29 17:27:00 Test Item Value Reference Range Interpretation Comments NA (test code = 137 mmol/L 135-145 3813375994) K (test code = 4.7 mmol/L 3.5-5 4706729733) CL (test code = 103 mmol/L 98-108 9701773534) CO2 TOTAL (test code = 23 mmol/L 23-31 5448297501) AGAP (test code = 2-16 1760656085) BUN (test code = 5 mg/dL 7-23 L 7895439838) GLUCOSE (test code = 93 mg/dL 70-110 2853526469) CREATININE (test code = 0.61 mg/dL 0.5-1.04 4617145358) TOTAL BILI (test code = 0.3 mg/dL 0.1-1.6 9864699491) CALCIUM (test code = 9.9 mg/dL 8.6-10.6 4375007322) T PROTEIN (test code = 7.5 g/dL 6.3-8.2 9120898333) ALBUMIN (test code = 4.3 g/dL 3.5-5 7922404906) ALK PHOS (test code = 82 U/L 34-122 6847686350) ALTv (test code = 23 U/L 5-35 1742-6) AST(SGOT) (test code = 36 U/L 13-40 4114913133) eGFR Calculation mL/min/1.73m2 (Non-) (test code = 2701161000) eGFR Calculation mL/min/1.73m2 () (test code = 3021983885) DIEGO (test code = DIEGO) Association of Glomerular Filtration Rate (GFR) and Staging of Kidney Disease* + --+ --+ ------+| GFR (mL/min/1.73 m2) ?| With Kidney Damage ?| ?Without Kidney Damage+ --------+ --------+ +| ?>90 ?| ?Stage one ?| ? Normal ?+ ---+ ---+ -------+| ?60-89 ?| ?Stage two ?| ? Decreased GFR ? + --+ --+ ------+| ?30-59 ?| ?Stage three ?| ? Stage three ? + --+ --+ ------+| ?15-29 ?| ?Stage four ? | ? Stage four ?+ ---+ ---+ -------+| ?<15 (or dialysis) ? ?| ?Stage five ? | ? Stage five ?+ ---+ ---+ -------+ *Each stage assumes the associated GFR level has been in effect for at least three months. ?Stages 1 to 5, with or without kidney disease, indicate chronic kidney disease. Notes: Determination of stages one and two (with eGFR >59mL/min/1.73 m2) requires estimation of kidney damage for at least three months as defined by structural or functional abnormalities of the kidney, manifested by either:Pathological abnormalities or Markers of kidney damage (including abnormalities in the composition of the blood or urine or abnormalities in imaging tests). Lab Interpretation Abnormal (test code = 04656-1) [facility] VW [id number] 17:09:41 No radiographic evidence of osteomyelitis. 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 There is anirregularly- shaped radiopacity in the left proximal tibial metaphysis whichalso seen in prior CT left leg from 10/17/2018 suggesting for radiopaqueantibiotic/cement spacer. There is soft tissue swelling near fibular neckwithout any evidence of adjacent bony erosion. Surgical clips at theamputation site visualized. [facility], Radiant Results Inft User - 04/29/2020 12:10 PM CDTXR KNEE 3 VW LEFTHISTORY: 35 years-old Female; left BKA, wound on stump, rule outosteomyelitisCOMPARISON: NoneFINDINGS:Radiographs of the left knee below knee amputation. There is anirregularly-shaped radiopacity in the left proximal tibial metaphysis whichalso seen in prior CT left leg from 10/17/2018 suggesting for radiopaqueantibiotic/cement spacer. There is soft tissue swelling near fibular neckwithout any evidence of adjacent bony erosion. Surgical clips at theamputation site visualized.IMPRESSIONNo radiographic evidence of osteomyelitis. Preliminary Report Dictated by Resident: Yousuf Pratt MD., have reviewed this study and agree with theabove report.[facility] WITH [id number] 17:07:00 Test Item Value Reference Range Interpretation Comments WBC (test code = See_Comment H [Automated 7090-2) message] The sy stem which generated this result transmitted reference range : 4.30 - 11.10 10*3/?L. The reference range was not used to interpret this result as normal/abnormal . RBC (test code = See_Comment [Automated 429-8) message] The sy stem which generated this result transmitted reference range : 3.93 - 5.25 10*6/?L. The reference range was not used to interpret this result as normal/abnormal . HGB (test code = 13.5 g/dL 11.6-15 718-7) HCT (test code = 40.8 % 35.7-45.2 4544-3) MCV (test code = 92.5 fL 80.6-95.5 787-2) MCH (test code = 30.6 pg 25.9-32.8 785-6) MCHC (test code = 33.1 g/dL 31.6-35.1 786-4) RDW-SD (test code = 44.5 fL 39-49.9 64445-4) RDW-CV (test code = 13.1 % 12-15.5 788-0) PLT (test code = See_Comment H [Automated 777-3) message] The sy stem which generated this result transmitted reference range : 166 - 358 10*3/ ?L. The reference r dinora was not used to interpret this result as normal/abnormal . MPV (test code = 9.6 fL 9.5-12.9 76248-9) NRBC/100 WBC (test See_Comment [Automat ed code = 4495933878) message] The system which generated this result transmitted reference range : 0.0 - 10.0 /100 WBCs. The refer ence range was not u sed to interpret th is result as normal/abnormal . NRBC x10^3 (test code <0.01 See_Comment [Auto mated = 8007158923) message] The s ystem which generated this result transmitted reference range : 10*3/?L. The reference range was not used to interpret this result as normal/abnormal . GRAN MAT (NEUT) % 59.4 % (test code = 770-8) IMM GRAN % (test code 0.70 % = 8551735120) LYMPH % (test code = 31.3 % 736-9) MONO % (test code = 5.8 % 5905-5) EOS % (test code = 2.0 % 713-8) BASO % (test code = 0.8 % 706-2) GRAN MAT x10^3(ANC) 7.54 10*3/uL 1.88-7.09 H (test code = 0865198395) IMM GRAN x10^3 (test 0.09 10*3/uL 0-0.06 H code = 3207661568) LYMPH x10^3 (test code 3.98 10*3/uL 1.32-3.29 H = 731-0) MONO x10^3 (test code 0.74 10*3/uL 0.33-0.92 = 742-7) EOS x10^3 (test code = 0.25 10*3/uL 0.03-0.39 711-2) BASO x10^3 (test code 0.10 10*3/uL 0.01-0.07 H = 704-7) Lab Interpretation Abnormal (test code = 05913-5) [facility] [id number] 16:24:00 Test Item Value Reference Range Interpretation Comments POCT PREG (test code = 1605) negative POCT PREG LOT # (test code = 3575) [id number] POCT PREG TEST DATE (test 03/20/2021 code = 3576) Lab Interpretation (test code = Normal 71991-4) [facility] [id number] 04:24:00 Test Item Value Reference Range Interpretation Comments POCT PREG (test code = 1605) negative On board controls acceptable with yes C Line (test code = 3574) POCT PREG LOT # (test code = 3575) [id number] POCT PREG TEST DATE (test 08/20/2020 code = 3576) Lab Interpretation (test code = Normal 00421-5) [facility]HEMO[facility] [id number] 13:26:00 Test Item Value Reference Range Interpretation Comments HEMOGLOBIN A1C (BEAKER) (test code = 5.2 % 4.3-6.1 368) CBC W/PLT COUNT & AUTO [id number] 09:42:00 Test Item Value Reference Range Interpretation [...] MORPHOLOGY (BEAKER) (test code Normal = 762) [id number] 07:11:00 Test Item Value Reference Range Interpretation Comments MAGNESIUM (BEAKER) (test code = 1.5 mg/dL 1.6-2.6 L 627) BASIC METABOLIC [id number] 07:11:00 Test Item Value Reference Range Interpretation [...] NOT APPLICABLE FOR DIALYSIS PATIEN TS. LIPID [id number] 07:11:00 Test Item Value Reference Range Interpretation [...] Borderline 130-159 High 160-189 Very High >=190TROPONIN [id number] 06:34:00 Test Item Value Reference Range Interpretation [...] acidosis, acute neurological disease, and persistent tachyarrhythmia.TROPONIN [id number] 23:58:00 Test Item Value Reference Range Interpretation [...]
== END 2021-06-29 09:39 | disposition home or self-care (01) ==
LOC: ER 07:02
DX: M54.6 Pain in thoracic spine (principal); Z88.6 Allergy status to analgesic agent; Z88.8 Allergy status to other drugs, medicaments and biological substances; F32.A Depression, unspecified; F17.210 Nicotine dependence, cigarettes, uncomplicated
CPT/HCPCS: 36415; 71260; 80048; 84484; 85025; 85379; 93005; 96361; 96374; 96375; 99284; J2405; J7030; Q9967

== ENCOUNTER 2021-07-31 16:12 | Emergency (ER) | payer SELFPAY ==
--- OUTSIDE RECORDS SUMMARY | 2021-07-31 16:18 | XMS REPORT | Continuity of Care Document ---
:1985 Author Organization [facility] t Address [address] [place] [address] Care Team Providers Name Role Phone Freddy [...] Date Expiration Date S mary lou [facility] [place] [id number] 2019 00:00:00 WOMEN Advance Directives Directive Decision Effective Termination Comments Source Date Date Healthcare Agents on N/A [facility] ersity FileNameRelationshipHealthcare [facility] Agent Medical RelationshipCommunicationCanCamer[facility] Malinda AbrahamIdther[facility] Care [phone] (Mobile) Problems Condition Condition Condition Status Onset Resolution Last Treating Co mments Source Name Details Category Date Date Treatment Clinician Date Migraine Migraine Disease Active Unive rs without without 5- ity of status status 00:00: [place] migrainosu migrainosu 00 Me dical s, not s, not Branch intractabl intractabl e, e, unspecifie unspecifie d migraine d migraine type type Gastroesop Gastroesop Disease Active U nivers hageal hageal 5-25 ity of reflux reflux 00:00: [place] disease, disease, 00 Medica l esophagiti esophagiti [...] alth Maternal grandmother Coronary artery [facility] Natural mother Coronary artery [facility] Maternal aunt Coronary artery [facility] Social History Social Habit Start Date Stop Date Quantity Comments Source History of tobacco 1992-02-15 Cigarette Smoker University of use 00:00:00 [facility] Exposure to Yes University of SARS-CoV-2 (event) [facility] Cigarettes smoked 2021-04-11 2021-04-11 Univers ity of current (pack per 00:00:00 00:00:00 ) - Reported Branch Tobacco use and 2021-04-11 2021-04-11 Never used Universit y of exposure 00:00:00 00:00:00 [facility] Alcohol intake 2021-04-11 2021-04-11 Current University of 00:00:00 00:00:00 non-drinker of [facility] alcohol Branch (finding) Cigarette 2015-04-20 2015-04-20 [facility] pack-years 00:00:00 00:00:00 Alcohol Comment 2015-04-16 2015-04-16 last drink Raghu Thompson alth 00:00:00 00:00:00 02/2015 [birth year] Universit y of 00:00:00 00:00:00 [facility] Smoking Status Start Date Stop Date Source Current every day smoker 2021-04-11 00:00:00 Uni versity of [facility] sm[facility] Medications Ordered Filled Start Stop Current Ordering Indication Dosage Frequency Signature Comments Components Source Medication Medication Date Date Medication? Clinician (SIG) Name Name ketorolac 2020- No 30mg 30 mg, Unive rs (TORADOL) 04-26 Slow IV ity of injection 22:00: 20:57 Push, [place] 30 mg 00 :00 ONCE, 1 Medical dose, [facility] 04/26/21 at 1700, Routine
membership counselor approving Restricted medication : BLAYNE HAIRSTON ketorolac 2020- No 30mg 30 mg, Unive rs (TORADOL) 04-26 Slow IV ity of injection 22:00: 20:57 Push, [place] 30 mg 00 :00 ONCE, 1 Medical dose, [facility] 04/26/21 at 1700, Routine
membership counselor approving Restricted medication : BLAYNE HAIRSTON morpHINE 2020- No 4mg 4 mg, Slow Un tracee injection 4 04-26 IV Push, ity of mg 20:30: 19:28 ONCE, 1 [place] 00 :00 dose, [facility] 04/26/21 at Branch 1530, STAT morpHINE 2020- No 4mg 4 mg, Slow Un tracee injection 4 04-26 IV Push, ity of mg 20:30: 19:28 ONCE, 1 [place] 00 :00 dose, [facility] 04/26/21 at Branch 1530, STAT [...] dose, 04/26/21 at 1330, STAT clonazePAM 2020- No [id number] 1mg Take 1 Univers (KLONOPIN) 04-17 tablet by ity of 1 mg tablet 00:00: 04:59 mouth 3 [place] :[place] (three) Medical times [place] daily for 5 days. clonazePAM 2020- No [id number] 1mg Take 1 Univers (KLONOPIN) 04-17 tablet by ity of 1 mg tablet 00:00: 04:59 [place] 3 [place] :[place] (three) Medical times [place] daily for 5 days. TOPIRAMATE 2020- No Take by Un tracee (TOPAMAX 04-12 mouth. ity of ORAL) 01:13: 00:00 [place] 52 :00 [facility] Branch ARIPIPRAZOL 2020- No Take by U chetan E (ABILIFY 04-12 mouth. ity of ORAL) 01:13: 00:00 [place] 52 :00 Medical Branch FLUOXETINE 2020- No Take by Un tracee HCL (PROZAC 04-12 mouth. ity o f ORAL) 01:13: 00:00 [place] 52 :00 Medical Branch traMADoL 2020- No 50mg 50 mg, Univer s (ULTRAM) 04-29 Oral, ONCE ity of tablet 50 19:30: 18:35 NOW, 1 [place] mg 00 :00 dose, [facility] Medical 04/29/20 at Branch 1430, Routine ketorolac 2019- No 15mg 15 mg, Unive rs (TORADOL) 04-29 Slow IV ity of injection 17:15: 16:31 Push, [place] 15 mg 00 :00 ONCE, 1 Medical dose, [facility] Branch 04/29/20 at 1215, PUSHPA
Fa [...] Indication s: acute pain clindamycin 2020- No [id number] 450mg Take 3 Univers 150 mg 04-29 capsules ity of capsule 00:00: 04:59 by mouth 3 [place] 00 :00 (three) Medical times Branch daily for 10 days. ketorolac 2018- No 60mg 60 mg, Unive rs (TORADOL) 03-19 0730 Intramuscu ity of injection 05:45: 04:35 lar, ONCE, [place] 60 mg 00 :00 1 dose, Medical [facility] Branch 03/19/19 at 0045, PUSHPA
Fa culty member approving Restricted medication : Vonda AGUILA ibuprofen Yes [id number] 600mg Take 1 U nivers 600 mg 7-29 tablet by ity of tablet 00:00: mouth [place] 00 every 6 Medical (six) Branch hours as needed for Pain (scale 4-6). ibuprofen Yes [id number] 600mg Take 1 U nivers 600 mg 7-29 tablet by ity of tablet 00:00: mouth [place] 00 every 6 Medical (six) Branch hours as needed for Pain (scale 4-6). ibuprofen Yes [id number] 600mg Take 1 U nivers 600 mg 7-29 tablet by ity of tablet 00:00: mouth [place] 00 every 6 Medical (six) Branch hours as needed for Pain (scale 4-6). ibuprofen Yes [id number] 600mg Take 1 U nivers 600 mg 7-29 tablet by ity of tablet 00:00: mouth [place] 00 every 6 Medical (six) Branch hours as needed for Pain (scale 4-6). ibuprofen 2020- No [id number] 600mg Take 1 Univers 600 mg 7-29 [...] HCL ORAL 4-26 mouth. ity of 18:29: [place] [address] Medical Branch DULOXETINE Yes Take by Uni vers HCL 4-26 mouth. ity of (CYMBALTA 18:29: [place] ORAL) Medical Branch ARIPIPRAZOL Yes Take by Un tracee E (ABILIFY 4-26 mouth. ity of ORAL) 18:29: [place] [address] Medical Branch TRAZODONE Yes Take by Univ ers HCL 4-26 mouth. ity of (TRAZODONE 18:29: [place] ORAL) Medical Branch PROPRANOLOL Yes Take by Un tracee HCL 4-26 mouth. ity of (PROPRANOLO 18:29: [place] L ORAL) 35 Medical Branch HYDROXYZINE 0 Yes Take by Un tracee HCL ORAL 4-26 mouth. ity of 18:29: [place] [address] Medical Branch DULOXETINE 0 Yes Take by Uni vers HCL 4-26 mouth. ity of (CYMBALTA 18:29: [place] ORAL) 35 Medical Branch ARIPIPRAZOL Yes Take by Un tracee E (ABILIFY 4-26 mouth. ity of ORAL) 18:29: [place] [address] Medical Branch TRAZODONE 2019-0 Yes Take by Univ ers HCL 4-26 mouth. ity of (TRAZODONE 18:29: [place] ORAL) Medical Branch PROPRANOLOL 2018-0 Yes Take by Un tracee HCL 4-26 mouth. ity of (PROPRANOLO 18:29: [place] L ORAL) Medical Branch HYDROXYZINE 0 Yes Take by Un tracee HCL ORAL 4-26 mouth. ity of 18:29: [place] [address] Medical Branch DULOXETINE 2018-0 Yes Take by Uni vers HCL 4-26 mouth. ity of (CYMBALTA 18:29: [place] ORAL) Medical Branch ARIPIPRAZOL Yes Take by Un tracee E (ABILIFY 4-26 mouth. ity of ORAL) 18:29: [place] [address] Medical Branch TRAZODONE Yes Take by Univ ers HCL 4-26 mouth. ity of (TRAZODONE 18:29: [place] ORAL) Medical Branch PROPRANOLOL 2018- Yes Take by Un tracee HCL 4-26 mouth. ity of (PROPRANOLO 18:29: [place] L ORAL) Medical Branch HYDROXYZINE Yes Take by Un tracee HCL ORAL 4-26 mouth. ity of 18:29: [place] [address] Medical Branch DULOXETINE Yes Take by Uni vers HCL 4-26 mouth. ity of (CYMBALTA 18:29: [place] ORAL) Medical Branch ARIPIPRAZOL Yes Take by Un tracee E (ABILIFY 4-26 mouth. ity of ORAL) 18:29: [place] [address] Medical Branch TRAZODONE 2018-0 Yes Take by Univ ers HCL 4-26 mouth. ity of (TRAZODONE 18:29: [place] ORAL) Medical Branch PROPRANOLOL 2018-0 Yes Take by Un tracee HCL 4-26 mouth. ity of (PROPRANOLO 18:29: [place] L ORAL) Medical Branch HYDROXYZINE 2018-0 Yes Take by Un tracee HCL ORAL 4-26 mouth. ity of 18:29: [place] [address] Medical Branch DULOXETINE 2018-0 Yes Take by [...] HCL ORAL 4-26 mouth. ity of 18:29: [place] 35 Medical Branch DULOXETINE 0 Yes Take [...] HCL ORAL 4-26 mouth. ity of 18:29: [place] [address] Medical Branch DULOXETINE Yes Take by Uni [...] HCL ORAL 4-26 mouth. ity of 18:29: [place] 35 Medical Branch DULOXETINE Yes Take by [...] HCL ORAL 4-26 mouth. ity of 18:29: [place] 35 Medical Branch DULOXETINE 0 Yes Take [...] HCL ORAL 4-26 mouth. ity of 18:29: [place] 35 Medical Branch DULOXETINE Yes Take by Uni vers HCL 4-26 mouth. ity of (CYMBALTA 18:29: [place] ORAL) 35 Medical Branch Miscellaneo 0 Yes [id number] [facility] 12-1404 EXTREMITY ity of Supply Misc 00:00: PROSTHES [place] 00 NOS, Left Medical bka, needs Branch new prosthesis and supplies Miscellaneo 2019-0 Yes [id number] [facility] 12-14 91 EXTREMITY ity of Supply Misc 00:00: PROSTHES [place] NOS, Left Medical bka, needs Branch new prosthesis and supplies Miscellaneo 2019-0 Yes [id number] [facility] 12-14 EXTREMITY ity of Supply Misc 00:00: PROSTHES [place] 00 NOS, Left Medical bka, needs Branch new prosthesis and supplies Miscellaneo 2019-0 Yes [id number] [facility] 12-14 EXTREMITY ity of Supply Misc 00:00: [place]OST[place]ES [place] 00 NOS, Left Medical bka, needs Branch new prosthesis and supplies Miscellaneo 2020- No [id number] [facility] 12-14 9104 EXTREMITY ity of Supply Misc 00:00: 00:00 PROST[place]ES [place] 00 :00 NOS, Left Medical bka, needs Branch new prosthesis and supplies TOPIRAMATE Yes Take by Uni vers (TOPAMAX 4-19 mouth. ity of ORAL) 01:22: [address] TOPIRAMATE Yes Take by Uni vers (TOPAMAX 4-19 mouth. ity of ORAL) 01:22: [address] TOPIRAMATE Yes Take by Uni vers (TOPAMAX 4-19 mouth. ity of ORAL) 01:22: [address] TOPIRAMATE Yes Take by Uni vers (TOPAMAX 4-19 mouth. ity of ORAL) 01:22: [address] acetaminoph Yes [id number] 1{tbl} Take 1 Univers en-codeine 4-18 tablet by ity of (TYLENOL-CO 00:00: mouth [place] DEINE #3) 00 every 4 Medical 300-30 mg (four) Branch tablet hours as needed for Pain (scale 7-10). cephALEXin Yes [id number] 250mg Take 1 Univers (KEFLEX) 4-18 capsule by ity o f 250 mg 00:00: mouth [place] capsule 00 every 6 Medical (six) Branch hours. acetaminoph Yes [id number] 1{tbl} Take 1 Univers en-codeine 4-18 tablet by ity of (TYLENOL-CO 00:00: mouth [place] DEINE #3) 00 every 4 Medical 300-30 mg (four) Branch tablet hours as needed for Pain (scale 7-10). cephALEXin Yes [id number] 250mg Take 1 Univers (KEFLEX) 4-18 capsule by ity o f 250 mg 00:00: mouth [place] capsule 00 every 6 Medical (six) Branch hours. acetaminoph Yes [id number] 1{tbl} Take 1 Univers en-codeine 4-18 tablet by ity of (TYLENOL-CO 00:00: mouth [place] DEINE #3) 00 every 4 Medical 300-30 mg (four) Branch tablet hours as needed for Pain (scale 7-10). cephALEXin Yes [id number] 250mg Take 1 Univers (KEFLEX) 4-18 capsule by ity o f 250 mg 00:00: mouth [place] capsule 00 every 6 Medical (six) Branch hours. acetaminoph Yes [id number] 1{tbl} Take 1 Univers en-codeine 4-18 tablet by ity of (TYLENOL-CO 00:00: mouth [place] DEINE #3) 00 every 4 Medical 300-30 mg (four) Branch tablet hours as needed for Pain (scale 7-10). cephALEXin Yes [id number] 250mg Take 1 Univers (KEFLEX) 4-18 capsule by ity o f 250 mg 00:00: mouth [place] capsule 00 every 6 Medical (six) Branch hours. acetaminoph 2020- No [id number] 1{tbl} Take 1 Univers en-codeine 4-18 08-22 tablet by ity of (TYLENOL-CO 00:00: 00:00 [place] DEINE #3) 00 :00 every 4 Medical 300-30 mg (four) Branch tablet hours as needed for Pain (scale 7-10). cephALEXin 2020- No [id number] 250mg Take 1 Univers (KEFLEX) 4-18 08-22 capsule by ity of 250 mg 00:00: 00:00 mouth [place] capsule 00 :00 every 6 Medical (six) Branch hours. ibuprofen 2019- No [id number] 600mg Take 1 Univers 600 mg 3-06 27-29 3 tablet by ity of tablet 00:00: 00:00 mouth [place] 00 :00 every 6 Medical (six) Branch hours as needed for Pain (scale 4-6). sulfamethox Yes [id number] 1{tbl} Take 1 Univers azole-trime 2-12 tablet by ity of thoprim 00:00: mouth [place] 800-160 mg 00 every 12 Medic al per tablet (twelve) Branc h hours. sulfamethox Yes [id number] 1{tbl} Take 1 Univers azole-trime 2-12 tablet by ity of thoprim 00:00: mouth [place] 800-160 mg 00 every 12 Medic al per tablet (twelve) Branc h hours. sulfamethox 2018- Yes [id number] 1{tbl} Take 1 Univers azole-trime 2-12 tablet by ity of thoprim 00:00: mouth [place] 800-160 mg 00 every 12 Medic al per tablet (twelve) Branc h hours. sulfamethox 2018-0 Yes [id number] 1{tbl} Take 1 Univers azole-trime 2-12 tablet by ity of thoprim 00:00: mouth [place] 800-160 mg 00 every 12 Medic al per tablet (twelve) Branc h hours. sulfamethox 2018- 2021- No [id number] 1{tbl} Take 1 Univers azole-trime 2-12 08-22 tablet by it y of thoprim 00:00: 00:00 mouth [place] 800-160 mg 00 :00 every 12 Medic al per tablet (twelve) Branc h hours. FLUOXETINE Yes Take by Uni vers HCL (PROZAC 6-27 mouth. ity of ORAL) 17:12: [address] FLUOXETINE 2017- Yes Take by Uni vers HCL (PROZAC 6-27 mouth. ity of ORAL) 17:12: [address] FLUOXETINE Yes Take by Uni vers HCL (PROZAC 6-27 mouth. ity of ORAL) 17:12: [address] FLUOXETINE 2017-0 Yes Take by Uni vers HCL (PROZAC 6-27 mouth. ity of ORAL) 17:12: [address] pantoprazol 2017- Yes [id number] 40mg Take 1 Univers e 6-27 tablet by ity of (PROTONIX) 00:00: mouth 2 [place] 40 mg EC 00 (two) Medical tablet times Branch daily. fluticasone 2017- Yes [id number] 2{spray Use 2 Univers 50 6-27 } Sprays in ity of mcg/actuati 00:00: each [place] on nasal 00 nostril Medical spray daily. Branch pantoprazol 2017-0 Yes [id number] 40mg Take 1 Univers e 6-27 tablet by ity of (PROTONIX) 00:00: mouth 2 [place] 40 mg EC 00 (two) Medical tablet times Branch daily. fluticasone 2018- Yes [id number] 2{spray Use 2 Univers 50 6-27 } Sprays in ity of mcg/actuati 00:00: each [place] on nasal 00 nostril Medical spray daily. Branch pantoprazol 2017- Yes [id number] 40mg Take 1 Univers e 6-27 tablet by ity of (PROTONIX) 00:00: mouth 2 [place] 40 mg EC 00 (two) Medical tablet times Branch daily. fluticasone 2018- Yes [id number] 2{spray Use 2 Univers 50 6-27 } Sprays in ity of mcg/actuati 00:00: each [place] on nasal 00 nostril Medical spray daily. Branch pantoprazol 2017- Yes [id number] 40mg Take 1 Univers e 6-27 tablet by ity of (PROTONIX) 00:00: mouth 2 [place] 40 mg EC 00 (two) Medical tablet times Branch daily. fluticasone 2017- Yes [id number] 2{spray Use 2 Univers 50 6-27 } Sprays in ity of mcg/actuati 00:00: each [place] on nasal 00 nostril Medical spray daily. Branch pantoprazol 2017-2020- No [id number] 40mg Take 1 Univers e 6-27 08-22 tablet by ity of (PROTONIX) 00:00: 00:00 mouth 2 [place] 40 mg EC 00 :00 (two) Medical tablet times Branch daily. fluticasone 2017-2020- No [id number] 2{spray Use 2 Univers 50 6-27 08-22 [...] Branch daily with meals. metoclopram 2018-0 Yes [id number] 1 tab U nivers arianne HCl 10 5-25 every 4hr ity of mg tablet 00:00: as needed [place] 00 for nausea Medical Branch metoclopram 2017- Yes [id number] 1 tab U nivers arianne HCl 10 5-25 every 4hr ity of mg tablet 00:00: as needed [place] 00 for nausea Medical Branch metoclopram 2017- Yes [id number] 1 tab U nivers arianne HCl 10 5-25 every 4hr ity of mg tablet 00:00: as needed [place] 00 for nausea Medical Branch metoclopram 2017- Yes [id number] 1 tab U nivers arianne HCl 10 5-25 every 4hr ity of mg tablet 00:00: as needed [place] 00 for nausea Medical Branch metoclopram 2017-0 2020- No [id number] 1 tab Univers arianne HCl 10 5-25 [...] Nausea and Vomiting (N/V). acetaminoph 2018-0 Yes [id number] 1{tbl} Take 1-2 Univers en-codeine 5-01 tablets by ity of 300-30 mg 00:00: mouth [place] tablet 00 every 6 Medical (six) Branch hours as needed for Pain (scale 4-6) or Pain (scale 7-10) (for breakthrou gh pain). acetaminoph 2018-0 Yes [id number] 1{tbl} Take 1-2 Univers en-codeine 5-01 tablets by ity of 300-30 mg 00:00: mouth [place] tablet 00 every 6 Medical (six) Branch hours as needed for Pain (scale 4-6) or Pain (scale 7-10) (for breakthrou gh pain). acetaminoph Yes [id number] 1{tbl} Take 1-2 Univers en-codeine 5-01 tablets by ity of 300-30 mg 00:00: mouth [place] tablet 00 every 6 Medical (six) Branch hours as needed for Pain (scale 4-6) or Pain (scale 7-10) (for breakthrou gh pain). acetaminoph Yes [id number] 1{tbl} Take 1-2 Univers en-codeine 5-01 tablets by ity of 300-30 mg 00:00: mouth [place] tablet 00 every 6 Medical (six) Branch hours as needed for Pain (scale 4-6) or Pain (scale 7-10) (for breakthrou gh pain). acetaminoph 2020- No [id number] 1{tbl} Take 1-2 Univers en-codeine 5-01 08-22 tablets by it y of 300-30 mg 00:00: 00:00 mouth [place] tablet 00 :00 every 6 Medical (six) Branch hours as needed for Pain (scale 4-6) or Pain (scale 7-10) (for breakthrou gh pain). meclizine Yes [id number] 25mg Take 1 U nivers 25 mg 3-30 tablet by ity of tablet 00:00: mouth 3 [place] 00 (three) Medical times Branch daily as needed for Dizziness. meclizine Yes [id number] 25mg Take 1 U nivers 25 mg 3-30 tablet by ity of tablet 00:00: mouth 3 [place] 00 (three) Medical times Branch daily as needed for Dizziness. meclizine Yes [id number] 25mg Take 1 U nivers 25 mg 3-30 tablet by ity of tablet 00:00: mouth 3 [place] 00 (three) Medical times Branch daily as needed for Dizziness. meclizine Yes [id number] 25mg Take 1 U nivers 25 mg 3-30 tablet by ity of tablet 00:00: mouth 3 [place] 00 (three) Medical times Branch daily as needed for Dizziness. meclizine 2020- No [id number] 25mg Take 1 Univers 25 mg 3-30 [...] Source Systolic blood 2021-04-26 22:15:00 113 mm[Hg] [facility] Diastolic blood 2021-04-26 22:15:00 79 mm[Hg] [facility] Heart rate 2021-04-26 22:15:00 59 /min [facility] Respiratory rate 2021-04-26 22:15:00 13 /min [facility] Oxygen saturation in 2021-04-26 22:15:00 99 /min [facility] Arterial blood by [facility] Pulse oximetry Branch Body temperature 2021-04-26 17:03:00 36.72 [place] [facility] Body weight 2021-04-26 17:03:00 90.719 kg [facility] BMI 2021-04-26 17:03:00 30.41 kg/m2 [facility] Systolic blood 2021-04-17 23:53:00 130 mm[Hg] Univer [facility] Diastolic blood 2021-04-17 23:53:00 75 mm[Hg] Unive [facility] Heart rate 2021-04-17 23:53:00 78 /min Universi ty of [place] [facility] Body temperature 2021-04-17 23:53:00 36.94 [place] Univ ersity of [place] [facility] Respiratory rate 2021-04-17 23:53:00 20 /min Univ ersity of [place] [facility] Body weight 2021-04-17 23:53:00 90.719 kg Universi ty of [place] [facility] BMI 2021-04-17 23:53:00 30.41 kg/m2 Universi ty [facility] [place] [facility] Oxygen saturation in 2021-04-17 23:53:00 100 /min University of Arterial blood by [place] [employer] mary ann Pulse oximetry Branch Systolic blood 2021-04-12 00:15:00 167 mm[Hg] Univer sity of pressure [place] [facility] Diastolic blood 2021-04-12 00:15:00 106 mm[Hg] Unive rsity of pressure [place] [facility] Heart rate 2021-04-12 00:15:00 89 /min Universi ty of [place] [facility] Body temperature 2021-04-12 00:15:00 37.22 [place] Univ ers[facility] [place] [facility] Respiratory rate 2021-04-12 00:15:00 18 /min Univ ersity of [place] [facility] Body weight 2021-04-12 00:15:00 86.183 kg Universi ty of [place] [facility] BMI 2021-04-12 00:15:00 28.89 kg/m2 Universi ty [facility] [place] [facility] Oxygen saturation in 2021-04-12 00:15:00 98 /min University of Arterial blood by [place] [employer] mary ann Pulse oximetry Branch Systolic blood 2020-04-29 19:15:00 124 mm[Hg] Univer sity of pressure [place] [facility] Diastolic blood 2020-04-29 19:15:00 86 mm[Hg] Unive rsity of pressure [place] [facility] Heart rate 2020-04-29 19:15:00 59 /min Universi ty of [place] [facility] Respiratory rate 2020-04-29 19:15:00 17 /min Univ ersity of [place] [facility] Oxygen saturation in 2020-04-29 19:15:00 99 /min University of Arterial blood by [place] [employer] mary ann Pulse oximetry Branch Body temperature 2020-04-29 15:43:00 37.11 [place] Univ ers[facility] [place] [facility] Body height 2020-04-29 15:43:00 172.7 cm Universi ty [facility] [place] [facility] Body weight 2020-04-29 15:43:00 86.183 kg [facility]i [facility] [place] [facility] BMI 2020-04-29 15:43:00 28.89 kg/m2 Universi ty [facility] [place] [facility] Systolic blood 2020-04-29 19:15:00 124 mm[Hg] Univer sity of pressure [place] [facility] Diastolic blood 2020-04-29 19:15:00 86 mm[Hg] Unive rsity of pressure [place] [facility] Heart rate 2020-04-29 19:15:00 59 /min Universi ty of [place] [facility] Respiratory rate 2020-04-29 19:15:00 17 /min Univ ersity of [place] [facility] Oxygen saturation in 2020-04-29 19:15:00 99 /min University of Arterial blood by [employer] Pulse oximetry Branch Body temperature 2020-04-29 15:43:00 37.11 [place] Univ ers[facility] [place] [facility] Body height 2020-04-29 15:43:00 172.7 cm [facility] [place] [facility] Body weight 2020-04-29 15:43:00 86.183 kg [facility]i [facility] [place] [facility] BMI 2020-04-29 15:43:00 28.89 kg/m2 [facility]i ty [facility] [place] [facility] Systolic blood 2019-04-14 22:23:00 146 mm[Hg] Univer sity of pressure [place] [facility] Diastolic blood 2019-04-14 22:23:00 82 mm[Hg] Unive rsity of pressure [place] [facility] Heart rate 2019-04-14 22:23:00 82 /min Universi ty [facility] [place] [facility] Body temperature 2019-04-14 22:23:00 36.72 [place] Univ [facility] [place] [facility] Respiratory rate 2019-04-14 22:23:00 18 /min Univ ersity of [place] [facility] Body weight 2019-04-14 22:23:00 90.719 kg Universi ty [facility] [place] [facility] BMI 2019-04-14 22:23:00 30.41 kg/m2 [facility]i [facility] [place] [facility] Oxygen saturation in 2019-04-14 22:23:00 98 /min University of Arterial blood by [employer] mary ann Pulse oximetry Branch Systolic blood 2019-04-14 22:23:00 146 mm[Hg] Univer sity of pressure [place] [facility] Diastolic blood 2019-04-14 22:23:00 82 [...] 2019-04-14 22:23:00 30.41 kg/m2 [facility]i ty [facility] [place] [facility] Oxygen saturation in 2019-04-14 22:23:00 98 /min University of Arterial blood by [place] [employer] Pulse oximetry Branch Systolic blood 2019-03-19 04:00:00 122 mm[Hg] Univer sity of pressure [place] [facility] Diastolic blood 2019-03-19 04:00:00 78 mm[Hg] Unive rsity of pressure [place] [facility] Heart rate 2019-03-19 04:00:00 68 /min [facility]i [facility] [place] [facility] Respiratory rate 2019-03-19 04:00:00 18 /min Univ ers[facility] [place] [facility] Oxygen saturation in 2019-03-19 04:00:00 97 /min University of Arterial blood by [place] [employer] Pulse oximetry Branch Body temperature 2019-03-19 03:28:00 36.67 [place] [facility] [place] [facility] Body weight 2019-03-19 03:28:00 90.719 kg [facility] [place] [facility] BMI 2019-03-19 03:28:00 30.41 kg/m2 [facility] [place] [facility] Systolic blood 2019-03-19 04:00:00 122 mm[Hg] Univer sity of pressure [place] [facility] Diastolic blood 2019-03-19 04:00:00 78 mm[Hg] Unive rsity of pressure [place] [facility] Heart rate 2019-03-19 04:00:00 68 /min [facility] [place] [facility] Respiratory rate 2019-03-19 04:00:00 18 /min Univ ersity [facility] [place] [facility] Oxygen saturation in 2019-03-19 04:00:00 97 /min University of Arterial blood by [employer] Pulse oximetry Branch Body temperature 2019-03-19 03:28:00 36.67 Michell [facility] Body weight 2019-03-19 03:28:00 90.719 kg [facility] BMI 2019-03-19 03:28:00 30.41 kg/m2 [facility] [facility] Procedures Procedure Date / Time Performing Clinician Source Performed FREE T4 2021-04-26 20:43:00 Blayne Hairston [facility] CREATINE KINASE 2021-04-26 20:41:00 Blayne Hairston [facility] MAGNESIUM 2021-04-26 20:41:00 Blayne Hairston [facility] TROPONIN I 2021-04-26 20:41:00 Blayne Hairston [facility] COMP. METABOLIC PANEL 2021-04-26 20:41:00 Blayne Hairston [facility] ([id number]) [facility] SEDIMENTATION RATE 2021-04-26 19:33:00 Blayne Hairston [facility] CT CERVICAL SPINE WO 2021-04-26 19:00:47 Blayne Hairston [facility] CONTRAST [facility] CT HEAD WO CONTRAST 2021-04-26 19:00:47 Blayne Hairston [facility] COVID-19 (ID NOW RAPID 2021-04-26 18:30:00 Blayne Hairston [facility] TESTING) [facility] THYROID STIMULATING 2021-04-26 18:25:00 Blayne Hairston [facility] HORMONE [facility] CBC WITH DIFF 2021-04-26 18:25:00 Blayne Hairston [facility] N-TERMINAL PRO-BNP 2021-04-26 18:25:00 Blayne Hairston [facility] POCT TEST 2021-04-26 18:24:00 Blayne Hairston [facility] URINALYSIS 2021-04-26 18:23:00 Blayne Hairston [facility] URINE DRUG (IMMUNOASSAY) 2021-04-26 18:23:00 Blayne Hairston [facility] SCREEN W/O REFLEX CONSENT/REFUSAL FOR 2021-04-26 16:29:45 Doctor Unassigned, No Un [facility] DIAGNOSIS AND TREATMENT Name Medical Branch ASSIGNMENT OF BENEFITS 2021-04-18 01:01:09 Doctor Unassigned, No [facility] Branch CONSENT/REFUSAL FOR 2021-04-17 23:47:56 Doctor Unassigned, No [facility] [place] [facility] Name Medical Branch POCT TEST 2021-04-12 00:20:00 John Hinkle [facility] URINALYSIS 2021-04-12 00:18:00 John Hinkle [facility] CONSENT/REFUSAL FOR 2021-04-12 00:10:24 Doctor Unassigned, No [facility] [place] DIAGNOSIS AND TREATMENT [facility] XR KNEE 3 VW LEFT 2020-04-29 16:37:20 Amaris Stallings [facility] COMP. METABOLIC PANEL 2020-04-29 16:30:00 Amaris Stallings [facility] ([id number]) [facility] CBC WITH DIFF 2020-04-29 16:30:00 Amaris Stallings [facility] POCT TEST 2020-04-29 16:24:00 Amaris Stallings [facility] RAPID STREP SCREEN FOR 2020-04-29 16:11:00 Amaris Stallings [facility] GROUP A [facility] NOTICE OF PRIVACY 2020-04-29 15:31:17 Doctor Unassigned, No [facility] CONSENT/REFUSAL FOR 2020-04-29 15:31:01 Doctor Unassigned, No [facility] [place] [facility] POCT TEST 2019-03-19 04:24:00 Vonda Aguila [facility] NOTICE OF PRIVACY 2019-03-19 03:19:57 [facility]SENT/REFUSAL FOR 2019-03-19 03:19:41 Doctor Unassigned, No [facility] [place] DIAGNOSIS AND TREATMENT Name Medical Branch Plan of Care Planned Activity Planned Date Details Comments Source Future Scheduled 2021-05-21 IMM Influenza [facility] Test 00:00:00 Seasonal May to October (>/= 19 yrs) [code = IMM Influenza Seasonal May to October (>/= 19 yrs)] Future Scheduled 2020-04-20 Screening for [facility] Test 00:00:00 malignant neoplasm of cervix (procedure) [code = 051650866] Future Scheduled 2015 [facility] Test 00:00:00 malignant neoplasm of cervix (procedure) [code = 365934866] Future Scheduled 1997 COVID-19 Vaccine [facility] Test 00:00:00 (1) [code = COVID-19 Vaccine (1)] Future Scheduled COVID-[address] [facility] (1) [code = COVID-19 VACCINE (1)] Future Scheduled [facility] Test malignant neoplasm of cervix (procedure) [code = 402513240] Future Scheduled [facility] [code = INFLUENZA VACCINE] Encounters Start End Encounter Admission Attending Care Care Encounter Source Date/Time Date/Time Type Type Clinicians Facility Department ID 2021-06-21 Emergency [facility] [id number] Univers 20:38:37 [facility] 2021-06-21 Emergency [facility] [id number] Univers 18:47:54 ity of [facility] 2021-06-21 [facility] [id number] Univers 17:14:45 ity of [facility] 2021-06-18 [facility] [id number] Univers 16:34:49 ity of [facility] 2021-04-26 2021-04-26 [facility] [id number] Univers 12:05:00 17:42:00 Blayne Smith [id number] i [facility] of [place] 4.2.7.2.686 [facility] [phone] [facility] 084 Branch 2021-04-26 2021-04-26 Orders Doctor ANTHONY [id number] Univers 00:00:00 00:00:00 Only Unassigned, LINDA [id number] ity of [place] 4.2.7.2.686 [facility] [id number] [facility] 009 Branch 2021-04-17 2021-04-17 Emergency Singer [facility] [id number] Univers 18:55:00 20:04:00 Basil Sarah [id number] i ty of [place] 4.2.7.2.686 [facility] [id number] [address] 2021-04-11 2021-04-11 Emergency [facility] [id number] [facility] 19:20:00 20:53:00 Gisselle Jeter Sarah [id number] i ty of [place] 4.2.7.2.686 [facility] [id number] [place] [address] Branch 2020-04-29 2020-04-29 [facility] [id number] Univers 10:44:00 14:30:00 Amaris Smith [id number] i ty of [place] 4.2.7.2.686 [facility] [id number] [address] 2020-04-29 2020-04-29 [facility] [id number] 10:44:00 14:30:00 Amaris Smith [id number] [place] 4.2.7.2.686 [place] [id number] [facility] 2020-04-29 2020-04-29 Orders Doctor CRUZ [id number] Univers 00:00:00 00:00:00 Only Unassigned, LINDA [id number] ity of [facility] 4.2.7.2.686 Luis [id number] [place] [address] Branch 2020-04-29 2020-04-29 Orders Doctor CRUZ 1.2.840.114 [id number] 00:00:00 00:00:00 Only Unassigned, LINDA [id number] [facility] 4.2.7.2.686 [id number] 009 2019-04-14 2019-04-14 Emergency [facility] [id number] Univers 17:25:25 17:58:00 Ad Smith 350.1.13.10 i ty of [place] 4.2.7.2.686 [facility] [id number] [address] 2019-04-14 2019-04-14 Emergency Concepcion [facility] [id number] 17:25:25 17:58:00 Ad Smith [id number] [place] 4.2.7.2.686 [place] [id number] [facility] 2019-03-18 2019-03-18 Emergency Vonda Aguila [facility] [id number] [facility] 22:34:35 23:51:00 Maribel Smith 350.1.13.10 i ty of [place] 4.2.7.2.686 [facility] [id number] [place] [address] Branch 2019-03-18 2019-03-18 Emergency oVnda Aguila [facility] [id number] 22:34:35 23:51:00 Maribel Smith 350.1.13.10 [place] 4.2.7.2.686 [place] [id number] [facility] 2017-04-09 2017-04-09 Emergency [facility] [id number] [place] 00:00:00 00:00:00 Health 2017-04-09 2017-04-09 Emergency [facility] [id number] [place] 00:00:00 00:00:00 [facility] 2017-04-08 2017-04-08 Emergency [facility] [id number] [place] 22:35:00 22:35:00 Health 2017-04-08 2017-04-08 Emergency [facility] [id number] [place] 00:00:00 00:00:00 Health Results Test Description Test Time Test Comments Results Result Comments Source FREE T4 2021-04-26 22:21:43 Test Item Value Reference Range Interpretation Comme nts FREE T4 (test code = See_Comment [Autom ated message] The system [id number]) which generated this result transmitted ref erence range: 0.78 - 2.20 ng/dL:. The reference range was not u sed to interpret this result as normal/abnormal. Lab Interpretation (test code = Normal 73261-4) [facility] [id number] 22:21:43 Test Item Value Reference Range Interpretation Comments FREE T4 (test code = See_Comment [Autom ated message] 4733569786) The system whic h generated this result transmitted ref erence range: 0.78 - 2 .20 ng/dL:. The ref erence range was not u sed to interpret this result as normal/abnor mal. Lab Interpretation (test Normal code = 56164-1) [facility] [id number] 21:24:56 Test Item Value Reference Interpretation Comments Range TROPONIN I (test <0.012 See_Comment [Automated code = 9435855602) message] The system which generated this result [...] biotin. Lab Interpretation Normal (test code = 15469-4) [facility] [id number] 21:24:56 Test Item Value Reference Interpretation Comments Range TROPONIN I (test <0.012 See_Comment [Automated code = 0844381925) message] The system which generated this result [...] biotin. Lab Interpretation Normal (test code = 31921-0) [facility]38 Test Item Value Reference Range Interpretation Comments MAGNESIUM (test code = 8679806200) 1.7 mg/dL 1.7-2.4 Lab Interpretation (test code = Normal 36133-9) [facility]:14[facility]38 Test Item Value Reference Range Interpretation Comments MAGNESIUM (test code = 6372623862) 1.7 mg/dL 1.7-2.4 Lab Interpretation (test code = Normal 83468-4) [facility] (42872)2021-04-26 21:14:18 Test Item Value Reference Range Interpretation Comments NA (test code = 139 mmol/L 135-145 8763421942) K (test code = 4.1 mmol/L 3.5-5.0 5952096703) CL (test code = 110 mmol/L 98-108 H 5298590279) CO2 TOTAL (test code = 25 mmol/L 23-31 3657155534) AGAP (test code = 2-16 7968277394) BUN (test code = 6 mg/dL 7-23 L 5740050722) GLUCOSE (test code = 96 mg/dL 70-110 4892822971) CREATININE (test code = 0.50 mg/dL 0.50-1.04 2534519893) TOTAL BILI (test code = 0.2 mg/dL 0.1-1.2 8323455843) CALCIUM (test code = 8.8 mg/dL 8.6-10.6 7258077683) T PROTEIN (test code = 6.9 g/dL 6.3-8.2 4146196198) ALBUMIN (test code = 4.0 g/dL 3.5-5.0 1113583230) ALK PHOS (test code = 73 U/L 34-122 5215221225) ALTv (test code = 15 U/L 5-35 1742-6) AST(SGOT) (test code = 20 U/L 13-40 9127499771) eGFR (test code = mL/min/1.73m2 7877335138) DIEGO (test code = DIEGO) Association of [...] tests). Lab Interpretation Abnormal (test code = 48469-8) [facility]. METABOLIC PANEL (79600)2021-04-26 21:14:18 Test Item Value Reference Range Interpretation Comments NA (test code = 139 mmol/L 135-145 0894855862) K (test code = 4.1 mmol/L 3.5-5.0 5107409010) CL (test code = 110 mmol/L 98-108 H 1253368222) CO2 TOTAL (test code = 25 mmol/L 23-31 6258956925) AGAP (test code = 2-16 5446719835) BUN (test code = 6 mg/dL 7-23 L 8601495345) GLUCOSE (test code = 96 mg/dL 70-110 1297917960) CREATININE (test code = 0.50 mg/dL 0.50-1.04 9750627705) TOTAL BILI (test code = 0.2 mg/dL 0.1-1.7 3225022560) CALCIUM (test code = 8.8 mg/dL 8.6-10.6 7014851155) T PROTEIN (test code = 6.9 g/dL 6.3-8.2 2582204776) ALBUMIN (test code = 4.0 g/dL 3.5-5.0 7150468096) ALK PHOS (test code = 73 U/L 34-122 7927210618) ALTv (test code = 15 U/L 5-35 1742-6) AST(SGOT) (test code = 20 U/L 13-40 0007269352) eGFR (test code = mL/min/1.73m2 7738919266) DIEGO (test code = DIEGO) Association of [...] tests). Lab Interpretation Abnormal (test code = 82312-9) [facility] [id number] 21:14:17 Test Item Value Reference Range Interpretation Comments CK (test code = 5736069048) 35 U/L 33-194 Lab Interpretation (test code = Normal 98193-1) [facility] [id number] 21:14:17 Test Item Value Reference Range Interpretation Comments CK (test code = 4061866617) 35 U/L 33-194 Lab Interpretation (test code = Normal 38632-8) [facility] DRUG (IMMUNOASSAY) - COMPREHENSIVE DRUG SCREEN W/O [id number] 20:20:42 Test Item Value Reference Range Interpretation Comments AMPHET (test code = Negative Negative 6462188594) NASEEM U (test code = Negative Negative 6703206484) BENZO U (test code = Negative Negative 5825077950) Cocaine Metabolite (test Negative Negative code = 6875519267) METHADONE (test code = Negative Negative 9006979696) OPIATES (test code = Negative Negative 3256515827) PCP (test code = Negative Negative 6627865972) THC (test code = Presumptive Positive Negative A 4181240241) DIEGO (test code = DIEGO) Urine Drug [...] testing). Lab Interpretation (test Abnormal code = 55600-9) [facility] DRUG (IMMUNOASSAY) - COMPREHENSIVE DRUG SCREEN W/O [id number] 20:20:42 Test Item Value Reference Range Interpretation Comments AMPHET (test code = Negative Negative 8964055477) NASEEM U (test code = Negative Negative 5701790069) BENZO U (test code = Negative Negative 6491794363) Cocaine Metabolite (test Negative Negative code = 4312077232) METHADONE (test code = Negative Negative 8014921278) OPIATES (test code = Negative Negative 9102776079) PCP (test code = Negative Negative 4493116085) THC (test code = Presumptive Positive Negative A 5543687834) DIEGO (test code = DIEGO) Urine Drug [...] testing). Lab Interpretation (test Abnormal code = 63727-1) [facility] [id number] 20:17:29 Test Item Value Reference Range Interpretation Comments ESR (test code = See_Comment [Automated message] 4264455619) The system [employer] generated this result transmitted ref erence range: 0 - 20 m m/HR. The reference r dinora was not used to interpret this result as normal/abnor mal. Lab Interpretation (test Normal code = 40266-6) [facility] [id number] 20:17:29 Test Item Value Reference Range Interpretation Comments ESR (test code = See_Comment [Automated message] 6221203259) The system [employer] generated this result transmitted ref erence range: 0 - 20 m m/HR. The reference r dinora was not used to interpret this result as normal/abnor mal. Lab Interpretation (test Normal code = 66885-2) [facility] [id number] 20:14:11 Test Item Value Reference Range Interpretation Comments TSH (test code = See_Comment [Automated message] 4780909360) The system [employer] generated this result transmitted ref erence range: 0.45 - 4 .70 mIU/L. The refe rence range was not u sed to interpret this result as normal/abnor mal. Lab Interpretation (test Normal code = 36962-6) [facility] [id number] 20:14:11 Test Item Value Reference Range Interpretation Comments TSH (test code = See_Comment [Automated message] 0986524872) The system [employer] generated this result transmitted ref erence range: 0.45 - 4 .70 mIU/L. The refe rence range was not u sed to interpret this result as normal/abnor mal. Lab Interpretation (test Normal code = 96314-3) [facility] [id number] 20:03:34 Test Item Value Reference Range Interpretation Comments NT-proBNP (test code 42 pg/mL See_Comment [Autom ated = 9044129713) message] The system which generated this result transmitted reference range : <=125. The reference range was not used to interpret this result as normal/abnormal . DIEGO (test code = DIEGO) Biotin has been reported to cause a negative bias, interpret results relative to patient's use of biotin. Lab Interpretation Normal (test code = 26207-5) [facility] [id number] 20:03:34 Test Item Value Reference Range Interpretation Comments NT-proBNP (test code 42 pg/mL See_Comment [Autom ated = 9884337305) message] The system which generated this result transmitted reference range : <=125. The reference range was not used to interpret this result as normal/abnormal . DIEGO (test code = DIEGO) Biotin has been reported to cause a negative bias, interpret results relative to patient's use of biotin. Lab Interpretation Normal (test code = 83086-7) [facility] WITH [id number] 19:45:17 Test Item Value Reference Range Interpretation Comments WBC (test code = See_Comment H [Automated 1290-2) message] The sy stem which generated this [...] RDW-SD (test code = 43.4 fL 39.0-49.9 92634-6) RDW-CV (test code = 12.5 % 12.0-15.5 788-0) PLT (test code = See_Comment H [Automated 777-3) message] The sy stem which generated this result transmitted reference range : 166 - 358 10*3/ ?L. The reference r dinora was not used to interpret this result as normal/abnormal . MPV (test code = 10.1 fL 9.5-12.9 31458-7) NRBC/100 WBC (test See_Comment [Automat ed code = 4144222280) message] The system which generated this result transmitted reference range : 0.0 - 10.0 /100 WBCs. The refer ence range was not u sed to interpret th is result as normal/abnormal . NRBC x10^3 (test code <0.01 See_Comment [Auto mated = 1834842730) message] The s ystem which generated this result transmitted reference range : 10*3/?L. The reference range was not used to interpret this result as normal/abnormal . GRAN MAT (NEUT) % 60.0 % (test code = 770-8) IMM GRAN % (test code 0.80 % = 5335932494) LYMPH % (test code = 31.1 % 736-9) MONO % (test code = 5.5 % 5905-5) EOS % (test code = 2.0 % 713-8) BASO % (test code = 0.6 % 706-2) GRAN MAT x10^3(ANC) 7.94 10*3/uL 1.88-7.09 H (test code = 6087325154) IMM GRAN x10^3 (test 0.11 10*3/uL 0.00-0.06 H code = 1673387958) LYMPH x10^3 (test code 4.13 10*3/uL 1.32-3.29 H = 731-0) MONO x10^3 (test code 0.73 10*3/uL 0.33-0.92 = 742-7) EOS x10^3 (test code = 0.27 10*3/uL 0.03-0.39 711-2) BASO x10^3 (test code 0.08 10*3/uL 0.01-0.07 H = 704-7) Lab Interpretation Abnormal (test code = 20034-9) [facility] WITH [id number] 19:45:17 Test Item Value Reference Range Interpretation Comments WBC (test code = See_Comment H [Automated 4090-2) message] The sy stem which generated this result transmitted reference range : 4.30 - 11.10 10*3/?L. The reference range was not used to interpret this result as normal/abnormal . RBC (test code = See_Comment [Automated 259-8) message] The sy stem which generated this [...] RDW-SD (test code = 43.4 fL 39.0-49.9 63369-8) RDW-CV (test code = 12.5 % 12.0-15.5 788-0) PLT (test code = See_Comment H [Automated 777-3) message] The sy stem which generated this result transmitted reference range : 166 - 358 10*3/ ?L. The reference r dinora was not used to interpret this result as normal/abnormal . MPV (test code = 10.1 fL 9.5-12.9 50940-0) NRBC/100 WBC (test See_Comment [Automat ed code = 4323893219) message] The system which generated this result transmitted reference range : 0.0 - 10.0 /100 WBCs. The refer ence range was not u sed to interpret th is result as normal/abnormal . NRBC x10^3 (test code <0.01 See_Comment [Auto mated = 4605800811) message] The s ystem which generated this result transmitted reference range : 10*3/?L. The reference range was not used to interpret this result as normal/abnormal . GRAN MAT (NEUT) % 60.0 % (test code = 770-8) IMM GRAN % (test code 0.80 % = 8542241132) LYMPH % (test code = 31.1 % 736-9) MONO % (test code = 5.5 % 5905-5) EOS % (test code = 2.0 % 713-8) BASO % (test code = 0.6 % 706-2) GRAN MAT x10^3(ANC) 7.94 10*3/uL 1.88-7.09 H (test code = 4107048882) IMM GRAN x10^3 (test 0.11 10*3/uL 0.00-0.06 H code = 9476780891) LYMPH x10^3 (test code 4.13 10*3/uL 1.32-3.29 H = 731-0) MONO x10^3 (test code 0.73 10*3/uL 0.33-0.92 = 742-7) EOS x10^3 (test code = 0.27 10*3/uL 0.03-0.39 711-2) BASO x10^3 (test code 0.08 10*3/uL 0.01-0.07 H = 704-7) Lab Interpretation Abnormal (test code = 28658-0) [facility] NOW RAPID TESTING)2021-04-26 19:33:11 Test Item Value Reference Range Interpretation Comments SARS-CoV-2 Rapid ID NOW Not Detected Not Detected (test code = 42378-6) IDEGO (test code = DIEGO) ID NOW COVID-19 Assay is an isothermal nucleic acid amplification test intended for the qualitative detection of nucleic acid from SARS-CoV-2 viral RNA in nasopharyngeal (IT COMPLIANCE MANAGER) specimens. It is used under Emergency Use [...] indicated. Lab Interpretation Normal (test code = 94026-8) [facility] (ID NOW RAPID TESTING)2021-04-26 19:33:11 Test Item Value Reference Range Interpretation Comments SARS-CoV-2 Rapid ID NOW Not Detected Not Detected (test code = 01757-1) DIEGO (test code = DIEGO) ID NOW COVID-19 Assay is an isothermal nucleic acid amplification test intended for the qualitative detection of nucleic acid from SARS-CoV-2 viral RNA in nasopharyngeal (IT COMPLIANCE MANAGER) specimens. It is used under Emergency Use [...] indicated. Lab Interpretation Normal (test code = 68150-1) [facility] WO [id number] 19:30:19 1. ?No acute intracranial abnormality. ? [...] is visualized.No parenchymal attenuation abnormality isseen. The wright- white matterdifferentiation is preserved. The mastoid air cells and paranasal air sinuses are clear. The calvariumand central skull base are unremarkable. An occipital spur is seen. Cervical Spine: No acute fracture or traumatic dislocation is visualized. Straightening ofnormal cervical lordosis is seen. The vertebral bodies are normal in heightand in normal alignment. The intervertebral disc spaces are preserved. [facility], Radiant Results Inft User - 04/26/2021 [...] reviewed this study and agree with the abovereport.[facility] CERVICAL SPINE WO [id number] 19:30:19 1. ?No acute intracranial abnormality. ? [...] reviewed this study and agree with the abovereport.[facility] CONTRAST 2021-04-26 19:30:19 1. ?No [...] alignment. The intervertebral disc spaces are preserved. [facility], Radiant Results Inft User - 04/26/2021 [...] reviewed this study and agree with the abovereport.[facility] CERV[facility] SP[facility] WO [id number] 19:30:19 1. ?No acute intracranial abnormality. ? [...] reviewed this study and agree with the abovereport.[facility]IS2021-09-06 19:29:14 Test Item Value Reference Range Interpretation Comments APPEARANCE (test code = Clear Clear 1466861923) COLOR (test code = Yellow Yellow 1607884723) PH (test code = 4.8-8.0 7920084243) SP GRAVITY (test code = 1.003-1.030 2897297759) GLU U QUAL (test code = Normal Normal 1692538432) BLOOD (test code = Negative Negative 6617751687) KETONES (test code = Negative Negative 2940517797) PROTEIN (test code = Negative Negative 2887-8) UROBILIN (test code = Normal Normal 5897441369) BILIRUBIN (test code = Negative Negative 9184316157) NITRITE (test code = Negative Negative 5484105902) LEUK DAKSHA (test code = Negative Negative 8723622713) RBC/HPF (test code = See_Comment [Autom ated message] 1802894101) The system [employer] generated this result transmitted ref erence range: 0 - 3 HP F. The reference range was not used to int erpret this result as normal/abnormal . WBC/HPF (test code = See_Comment [Autom ated message] 7942505463) The system [employer] generated this result transmitted ref erence range: 0 - 5 HP F. The reference range was not used to int erpret this result as normal/abnormal . BACTERIA (test code = Few Negative A 9379359930) SQ EPITH (test code = HPF 0201669343) Lab Interpretation (test Abnormal code = 53132-5) [facility]-06 19:29:14 Test Item Value Reference Range Interpretation Comments APPEARANCE (test code = Clear Clear 8959174777) COLOR (test code = Yellow Yellow [id number]) PH (test code = 4.8-8.0 6247434932) SP GRAVITY (test code = 1.003-1.030 7355482485) GLU U QUAL (test code = Normal Normal 0049467891) BLOOD (test code = Negative Negative 0100324820) KETONES (test code = Negative Negative 2312620609) PROTEIN (test code = Negative Negative 2887-8) UROBILIN (test code = Normal Normal 1339406613) BILIRUBIN (test code = Negative Negative 0932506340) NITRITE (test code = Negative Negative 0895036984) LEUK DAKSHA (test code = Negative Negative 6531998538) RBC/HPF (test code = See_Comment [Autom ated message] 3309883913) The system [employer] generated this result transmitted ref erence range: 0 - 3 HP F. The reference range was not used to int erpret this result as normal/abnormal . WBC/HPF (test code = See_Comment [Autom ated message] 0687312607) The system [employer] generated this result transmitted ref erence range: 0 - 5 HP F. The reference range was not used to int erpret this result as normal/abnormal . BACTERIA (test code = Few Negative A 6988550672) SQ EPITH (test code = HPF 7125088437) Lab Interpretation (test Abnormal code = 56839-7) [facility] [id number] 18:24:00 Test Item Value Reference Range Interpretation Comments POCT PREG (test code = 1605) negative On board controls acceptable with present C Line (test code = 3574) POCT PREG LOT # (test code = 3575) [id number] POCT PREG TEST DATE (test 08/20/2022 code = 3576) Lab Interpretation (test code = Normal 97183-6) [facility] [id number] 18:24:00 Test Item Value Reference Range Interpretation Comments POCT PREG (test code = 1605) negative On board controls acceptable with present C Line (test code = 3574) POCT PREG LOT # (test code = 3575) [id number] POCT PREG TEST DATE (test 08/20/2022 code = 3576) Lab Interpretation (test code = Normal 88198-6) [facility] Test Item Value Reference Range Interpretation Comments APPEARANCE (test code = Clear Clear 4538467084) COLOR (test code = Yellow Yellow 8776148515) PH (test code = 4.8-8.0 0729297638) SP GRAVITY (test code = 1.003-1.030 7153194977) GLU U QUAL (test code = Normal Normal 2197664814) BLOOD (test code = 1+ Negative A 0409515773) KETONES (test code = Negative Negative 5754182405) PROTEIN (test code = Negative Negative 2887-8) UROBILIN (test code = Normal Normal 8566904889) BILIRUBIN (test code = Negative Negative 1991602032) NITRITE (test code = Negative Negative 7134446351) LEUK DAKSHA (test code = 75/uL Negative A 5924417298) RBC/HPF (test code = See_Comment H [Autom ated message] 2638950591) The system [employer] generated this result transmitted ref erence range: 0 - 3 HP F. The reference range was not used to int erpret this result as normal/abnormal . WBC/HPF (test code = See_Comment H [Autom ated message] 3131354854) The system [employer] generated this result transmitted ref erence range: 0 - 5 HP F. The reference range was not used to int erpret this result as normal/abnormal . BACTERIA (test code = Few Negative A 3641033342) SQ EPITH (test code = HPF 4906717853) Lab Interpretation (test Abnormal code = 59792-2) [facility] [id number] 00:20:00 Test Item Value Reference Range Interpretation Comments POCT PREG (test code = 1605) negative On board controls acceptable with present C Line (test code = 3574) POCT PREG LOT # (test code = 3575) [id number] POCT PREG TEST DATE (test code = 3576) Lab Interpretation (test code = Normal 12116-6) [facility] STREP SCREEN FOR GROUP [id number] 17:29:00 Test Item Value Reference Range Interpretation Comments Streptococcus pyogenes (group A) Negative Negative antigen (test code = 02719-8) Lab Interpretation (test code = Normal 09754-1) [facility]. METABOLIC PANEL (71989)2020-04-29 17:27:00 Test Item Value Reference Range Interpretation Comments NA (test code = 137 mmol/L 135-145 5150029118) K (test code = 4.7 mmol/L 3.5-5 2603235519) CL (test code = 103 mmol/L 98-108 5348664265) CO2 TOTAL (test code = 23 mmol/L 23-31 0640975642) AGAP (test code = 2-16 4030952919) BUN (test code = 5 mg/dL 7-23 L 3645031846) GLUCOSE (test code = 93 mg/dL 70-110 0864924289) CREATININE (test code = 0.61 mg/dL 0.5-1.04 3104353273) TOTAL BILI (test code = 0.3 mg/dL 0.1-1.8 3114701817) CALCIUM (test code = 9.9 mg/dL 8.6-10.6 4039552813) T PROTEIN (test code = 7.5 g/dL 6.3-8.2 4604962620) ALBUMIN (test code = 4.3 g/dL 3.5-5 6371468035) ALK PHOS (test code = 82 U/L 34-122 2731046297) ALTv (test code = 23 U/L 5-35 1742-6) AST(SGOT) (test code = 36 U/L 13-40 3873864856) eGFR Calculation mL/min/1.73m2 (Non-) (test code = 6448233079) eGFR Calculation mL/min/1.73m2 () (test code = 4576330617) DIEGO (test code = DIEGO) Association of [...] tests). Lab Interpretation Abnormal (test code = 47780-2) [facility] VW [id number] 17:09:41 No radiographic evidence of osteomyelitis. Preliminary [...] erosion. Surgical clips at theamputation site visualized. [facility], Radiant Results Inft User - 04/29/2020 [...] reviewed this study and agree with theabove report.[facility] WITH [id number] 17:07:00 Test Item Value Reference Range Interpretation Comments WBC (test code = See_Comment H [Automated 4890-2) message] The sy stem which generated this result transmitted reference range : 4.30 - 11.10 10*3/?L. The reference range was not used to interpret this result as normal/abnormal . RBC (test code = See_Comment [Automated 739-8) message] The sy stem which generated this [...] RDW-SD (test code = 44.5 fL 39-49.9 95886-4) RDW-CV (test code = 13.1 % 12-15.5 788-0) PLT (test code = See_Comment H [Automated 777-3) message] The sy stem which generated this result transmitted reference range : 166 - 358 10*3/ ?L. The reference r dinora was not used to interpret this result as normal/abnormal . MPV (test code = 9.6 fL 9.5-12.9 61675-1) NRBC/100 WBC (test See_Comment [Automat ed code = 6068470201) message] The system which generated this result transmitted reference range : 0.0 - 10.0 /100 WBCs. The refer ence range was not u sed to interpret th is result as normal/abnormal . NRBC x10^3 (test code <0.01 See_Comment [Auto mated = 3765119523) message] The s ystem which generated this result transmitted reference range : 10*3/?L. The reference range was not used to interpret this result as normal/abnormal . GRAN MAT (NEUT) % 59.4 % (test code = 770-8) IMM GRAN % (test code 0.70 % = 8308963865) LYMPH % (test code = 31.3 % 736-9) MONO % (test code = 5.8 % 5905-5) EOS % (test code = 2.0 % 713-8) BASO % (test code = 0.8 % 706-2) GRAN MAT x10^3(ANC) 7.54 10*3/uL 1.88-7.09 H (test code = 3656210643) IMM GRAN x10^3 (test 0.09 10*3/uL 0-0.06 H code = 3993717878) LYMPH x10^3 (test code 3.98 10*3/uL 1.32-3.29 H = 731-0) MONO x10^3 (test code 0.74 10*3/uL 0.33-0.92 = 742-7) EOS x10^3 (test code = 0.25 10*3/uL 0.03-0.39 711-2) BASO x10^3 (test code 0.10 10*3/uL 0.01-0.07 H = 704-7) Lab Interpretation Abnormal (test code = 34216-7) [facility] [id number] 16:24:00 Test Item Value Reference Range Interpretation Comments POCT PREG (test code = 1605) negative POCT PREG LOT # (test code = 3575) [id number] POCT PREG TEST DATE (test 03/20/2021 code = 3576) Lab Interpretation (test code = Normal 29362-0) [facility] [id number] 04:24:00 Test Item Value Reference Range Interpretation Comments POCT PREG (test code = 1605) negative On board controls acceptable with yes C Line (test code = 3574) POCT PREG LOT # (test code = 3575) [id number] POCT PREG TEST DATE (test 08/20/2020 code = 3576) Lab Interpretation (test code = Normal 77943-9) [facility] [id number] 13:26:00 Test Item Value Reference Range Interpretation Comments HEMOGLOBIN A1C (BEAKER) (test code = 5.2 % 4.3-6.1 368) CBC W/PLT COUNT & AUTO [id number] 09:42:00 Test Item Value Reference Range Interpretation [...] MORPHOLOGY (BEAKER) (test code Normal = 762) [id number] 07:11:00 Test Item Value Reference Range Interpretation Comments MAGNESIUM (BEAKER) (test code = 1.5 mg/dL 1.6-2.6 L 627) BASIC METABOLIC [id number] 07:11:00 Test Item Value Reference Range Interpretation [...] NOT APPLICABLE FOR DIALYSIS PATIEN TS. LIPID [id number] 07:11:00 Test Item Value Reference Range Interpretation [...] Borderline 130-159 High 160-189 Very High >=190TROPONIN [id number] 06:34:00 Test Item Value Reference Range Interpretation [...] acidosis, acute neurological disease, and persistent tachyarrhythmia.TROPONIN [id number] 23:58:00 Test Item Value Reference Range Interpretation [...]
[2021-07-31] MEDS ORDERED: MORPHINE 2 MG/ML SYR ONE (16:30)
[2021-07-31] MEDS ORDERED: FAMOTIDINE 20 MG/2 ML VIAL IV ONE (16:30)
[2021-07-31 17:13] LABS: Urine Blood Negative (Negative); Urine Glucose Negative (Negative); Urine Protein Negative (Negative); Urine pH 7.5 (5.0-7.0)
--- NOTE | 2021-07-31 17:39 | RAD REPORT ---
EXAM DESCRIPTION: CTAngio Aorta For Dissection - 07/31/2021 5:22 pm CLINICAL HISTORY: CHEST PAIN COMPARISON: No comparisons TECHNIQUE: CT of the chest, abdomen, and pelvis was performed. All CT scans are performed using dose optimization technique as appropriate and may include automated exposure control or mA/KV adjustment according to patient size. FINDINGS: Thorax: Chest Wall: No abnormal mass Lungs: No acute abnormality. Pleura: No effusions or pneumothorax. Batsheva/Mediastinum: No lymphadenopathy. Aorta/Pulmonary Arteries: Unremarkable Heart: Normal size. Abdomen/Pelvis: Liver: Too small to characterize liver lesions which are likely benign. Biliary: No biliary ductal dilatation. Stomach: No significant focal abnormality. Duodenum: No significant focal abnormality. Pancreas: No significant abnormality. Spleen: No significant abnormality. Adrenal: No suspicious lesions. Kidney/ureter: No hydronephrosis. No renal calculi. Retroperitoneum: No retroperitoneal adenopathy. Vascular: No aneurysm. Minimal atherosclerosis involving the iliac vessels. Bowel: No significant focal abnormality. Normal appendix. Peritoneum: No ascites or free air. Bladder: Nonspecific circumferential bladder wall thickening. Reproductive: No adnexal masses. Retroverted uterus. Bones: No acute fracture. Other: n/a IMPRESSION: No acute findings within the chest, abdomen, or pelvis. Specifically, no evidence of aor tic aneurysm, aortic dissection, or pulmonary embolus. Circumferential bladder wall thickening which could represent cystitis. Correlate with urinalysis.
[2021-07-31 17:41] LABS: Barbiturates NEGATIVE (NEGATIVE); Benzodiazepines NEGATIVE (NEGATIVE); Cocaine NEGATIVE (NEGATIVE); METHAMPHETAM NEGATIVE (NEGATIVE); Methadone NEGATIVE (NEGATIVE); Opiates NEGATIVE (NEGATIVE); Phencyclidine NEGATIVE (NEGATIVE); THC Cannibis POSITIVE (NEGATIVE)
[2021-07-31 18:06] LABS: Urine Bacteria 20-50 /HPF (<20); Urine RBC <5 /HPF (NONE SEEN)
[2021-07-31] MEDS ORDERED: CEFTRIAXONE 1000 MG/VIAL ONE (18:24)
[2021-07-31] MEDS ORDERED: NA CHLORIDE 0.9% 50 ML ONE (18:24)
[2021-07-31 18:28] LABS: Absolute Lymphocytes (CBC) 3.8 K/uL (0.7-4.9); Basophils % 0.5 % (0-1.3); Hematocrit 42.4 % (36.0-45.0); Lymphocytes % 26.8 % (15.3-44.8); MPV 7.9 fL (7.6-11.3); RBC Red Blood Cell Count 4.69 M/uL (3.86-4.86)
[2021-07-31 18:34] LABS: ALT/SGPT 24 U/L (12-78); AST/SGOT 16 U/L (15-37); Albumin 3.9 g/dL (3.4-5.0); Alkaline Phosphatase 102 U/L (45-117); BUN Blood Urea Nitrogen 3 mg/dL (7-18); Bicarbonate 24 mmol/L (21-32); Bilirubin Direct < 0.1 mg/dL (0-0.2); Bilirubin Total 0.2 mg/dL (0.2-1.0); Glucose Level 87 mg/dL (74-106); NT PRO-BNP 49 pg/mL (<125); Potassium 3.8 mmol/L (3.5-5.1); Sodium Level 137 mmol/L (136-145); Troponin (Emerg Dept Use Only) < 0.02 ng/mL (0.0-0.045)
[2021-07-31 18:45] LABS: Protime INR 0.97
--- NOTE | 2021-07-31 19:01 | RAD REPORT ---
EXAM DESCRIPTION: RAD - Chest Single View - 07/31/2021 6:45 pm CLINICAL HISTORY: CHEST PAIN COMPARISON: Chest Single View dated 12/21/2020; Chest Single View dated 09/02/2019; Chest Pa And Lat (2 Views) dated 08/04/2019; Chest Single View dated 11/22/2018 FINDINGS: Lines: None. Lungs: No evidence of edema or pneumonia. Pleural: No significant pleural effusions or pneumothorax. Cardiac: The heart size is within normal limits. Bones: No acute fractures. Other: IMPRESSION: No acute cardiopulmonary disease.
--- NOTE | 2021-07-31 19:01 | EDPHYS ---
Physician Documentation [facility] Name: Natasha Spann Age: 36 yrs Sex: Female : 1985 Arrival Date: 07/31/2021 Time: 16:15 Bed 2 Private MD: ED Physician Guera Mccarty HPI: 07/31 16:30 This 36 yrs old Female presents to ER via EMS with complaints of Chest Pain. cp 16:30 The patient or guardian reports chest pain that is located primarily in the substernal cp area. The pain radiates to the left arm, left neck. Associated signs and symptoms: Pertinent positives: numbness of left arm. 16:30 The chest pain is described as aching. cp 16:30 Duration: The patient or guardian reports a single episode, that is still ongoing, but cp improving. Patient reports chest pain started bout 1400 today while sitting down, suddenly, and pain radiates to back. Patient reports she believes pain is due to anxiety. Historical: - Allergies: 16:26 Levofloxacin; jd3 16:26 Wellbutrin; jd3 16:26 bupropion HCl; jd3 - PMHx: 16:26 Ovarian cyst; MRSA; Gastric Reflux; Endometrosis; Bipolar disorder; Anxiety; ADD/ADHD; jd3 Depression; osteomylitis; UTI; - PSHx: 16:26 L BKA; jd3 - Immunization history:: Adult Immunizations up to date, Client reports having NOT received the Covid vaccine. - Social history:: Smoking status: Patient reports the use of cigarette tobacco products, smokes two packs cigarettes per day. ROS: 16:33 Cardiovascular: Positive for chest pain, Negative for edema, palpitations. cp 16:33 Eyes: Negative for injury, pain, redness, and discharge. cp 16:33 Constitutional: Negative for body aches, chills, fever. 16:33 Respiratory: Negative for cough, shortness of breath, wheezing. 16:33 Abdomen/GI: Negative for abdominal pain, vomiting, diarrhea, constipation. cp 16:33 Back: Positive for radiated pain. cp 16:33 Skin: Negative for rash. 16:33 Neuro: Negative for altered mental status, dizziness, headache, syncope, weakness. 16:33 All other systems are negative. Exam: 16:34 ECG was reviewed by the Attending Physician. cp 16:40 Constitutional: The patient appears in no acute distress, alert, awake, cp non-diaphoretic, non-toxic, well developed, well nourished, uncomfortable. 16:40 Head/Face: Normocephalic, atraumatic. cp 16:40 Eyes: Periorbital structures: appear normal, Conjunctiva: normal, no exudate, no injection, Sclera: no appreciated abnormality, Lids and lashes: appear normal, bilaterally. 16:40 ENT: External ear(s): are unremarkable, Nose: is normal, Mouth: Lips: moist, Oral mucosa: moist, Posterior pharynx: Airway: no evidence of obstruction, patent. 16:40 Neck: ROM/movement: is normal, is supple, no meningismus, no nuchal rigidity. 16:40 Chest/axilla: Inspection: normal. 16:40 Cardiovascular: Rate: normal, Rhythm: regular, Edema: is not appreciated, JVD: is not appreciated. 16:40 Respiratory: the patient does not display signs of respiratory distress, Respirations: normal, no use of accessory muscles, no retractions, labored breathing, is not present, Breath sounds: are clear throughout, no decreased breath sounds, no stridor, no wheezing. 16:40 Abdomen/GI: Inspection: abdomen appears normal, Palpation: abdomen is soft and non-tender, in all quadrants. 16:40 Back: CVA tenderness, is absent. 16:40 Neuro: Orientation: to person, place \T\ time. Mentation: is normal, Motor: moves all fours, strength is normal, Sensation: is normal. Vital Signs: 16:26 BP 155 / 98; Pulse 74; Resp 15 S; Temp 98.2(O); Pulse Ox 100% on R/A; Weight 90.72 kg jd3 (R); Height 5 ft. 8 in. (172.72 cm) (R); Pain 6/10; 17:46 BP 157 / 109; Pulse 77; Resp 17 S; Pulse Ox 100% on R/A; jd3 18:31 BP 131 / 87; Pulse 77; Resp 16 S; Pulse Ox 100% on R/A; jd3 16:26 Body Mass Index 30.41 (90.72 kg, 172.72 cm) jd3 MDM: 16:32 Patient medically screened. cp 17:00 Differential diagnosis: abnormal EKG, acute myocardial infarction, acute pericarditis, cp anxiety, chest wall pain, cholecystitis, Cholelithiasis costochondritis, pancreatitis, pericarditis, pneumonia, pneumothorax, pulmonary embolus, thoracic aortic disection. 19:00 Data reviewed: vital signs, nurses notes, lab test result(s), EKG, radiologic studies, cp plain films. 19:00 Data interpreted: secured entrance monitor: rate is 77 beats/min, rhythm is normal sinus rhythm, cp with no ectopy, Interpretation: normal rate, normal rhythm, Pulse oximetry: on room air is 100 %. Interpretation: normal. Test interpretation: by ED physician or midlevel provider: ECG, plain radiologic studies. Counseling: I had a detailed discussion with the patient and/or guardian regarding: the historical points, exam findings, and any diagnostic results supporting the discharge/admit diagnosis, lab results, radiology results, to return to the emergency department if symptoms worsen or persist or if there are any questions or concerns that arise at home. Response to treatment: the patient's symptoms have markedly improved after treatment. ED course: VSS. Pain resolved and patient requesting discharge to home. Labs, EKG negative for STEMI. Low suspicion for cardiac cause of pain. 07/31 16:19 Order name: Basic Metabolic Panel 07/31 16:19 Order name: CBC with Diff; Complete Time: 18:58 07/31 16:19 Order name: LFT's; Complete Time: 18:34 07/31 18:35 Interpretation: Normal except: GLOB 4.1; A/G 1.0. 07/31 16:19 Order name: Magnesium; Complete Time: 18:34 07/31 16:19 Order name: NT PRO-BNP; Complete Time: 18:34 07/31 16:19 Order name: PT-INR; Complete Time: 18:58 07/31 16:19 Order name: Troponin (emerg Dept Use Only); Complete Time: 18:34 07/31 16:19 Order name: XRAY Chest (1 view); Complete Time: 19:08 12 19:08 Interpretation: Report review. 07/31 16:19 Order name: UDS; Complete Time: 18:13 07/31 18:13 Interpretation: Normal except: THC POSITIVE. 07/31 16:20 Order name: Basic Metabolic Panel; Complete Time: 18:34 EDMS 07/31 18:35 Interpretation: Normal except: BUN 3. cp 07/31 17:12 Order name: Urine Dipstick-Ancillary; Complete Time: 17:38 EDMS 07/31 17:38 Interpretation: Normal except: UPH 7.5; U NIT Positive; UESTR 1+. 07/31 17:39 Order name: Urine Microscopic Only; Complete Time: 18:13 cp 07/31 18:15 Interpretation: Normal except: UBACT 20-50. cp 07/31 18:07 Order name: Urine Culture EDMS 07/31 16:19 Order name: EKG; Complete Time: 16:20 07/31 16:19 Order name: Cardiac monitoring; Complete Time: 16:22 07/31 16:19 Order name: EKG - Nurse/Tech; Complete Time: 16:27 07/31 16:19 Order name: IV Saline Lock; Complete Time: 17:14 07/31 16:19 Order name: Labs collected and sent; Complete Time: 16:42 07/31 16:19 Order name: O2 Per Protocol; Complete Time: 16:22 07/31 16:19 Order name: O2 Sat Monitoring; Complete Time: 16:22 07/31 16:19 Order name: Urine Dipstick-Ancillary (obtain specimen); Complete Time: 17:14 07/31 16:19 Order name: Urine Test (obtain specimen); Complete Time: 17:14 07/31 16:19 Order name: CT Aorta for Dissection; Complete Time: 18:13 07/31 17:21 Order name: Labs - recollect needed; Complete Time: 18:32 iw EC:34 Rate is 67 beats/min. Rhythm is regular. IA interval is normal. QRS interval is normal. cp QT interval is normal. T waves are Inverted in leads aVR, V4. Interpreted by me. Reviewed by me. Administered Medications: 17:13 Drug: morphine 2 mg Route: IVP; Site: right forearm; jd3 18:13 Follow up: Response: No adverse reaction; RASS: Alert and Calm (0) jd3 17:13 Drug: Pepcid (famotidine) 20 mg Route: IVP; Site: right forearm; jd3 18:13 Follow up: Response: No adverse reaction jd3 18:28 Drug: Rocephin (cefTRIAXone) 1 grams Route: IV; Rate: calculated rate; Site: left upper jd3 arm; 19:09 Follow up: Response: No adverse reaction; IV Status: Completed infusion jd3 Disposition: 08/01 07:08 I agree with the assessment and plan of care. ma2 07:08 Co-signature as Attending Physician, Guera Mccarty MD. ma2 Disposition Summary: 07/31/21 19:00 Discharge Ordered Location: Home cp Problem: new cp Symptoms: have improved cp Condition: Stable cp Diagnosis - Chest pain, unspecified cp - UTI/ Urinary tract infection, site not specified cp Followup: cp - With: Private Physician - When: 2 - 3 days - Reason: Recheck today's complaints Discharge Instructions: - Discharge Summary Sheet cp - Nonspecific Chest Pain, Adult cp - Urinary Tract Infection, Adult cp Forms: - Medication Reconciliation Form cp - Thank You Letter cp - Antibiotic Education cp - Prescription Opioid Use cp Prescriptions: - Ibuprofen 800 mg Oral Tablet - take 1 tablet by ORAL route every 8 hours As needed take with food; 30 tablet; cp Refills: 0, Product Selection Permitted - Augmentin 875-125 mg Oral Tablet - take 1 tablet by ORAL route every 12 hours for 7 days; 14 tablet; Refills: 0, cp Product Selection Permitted Signatures: Dispatcher [employer] Anastasia Pablo, RN Ole Hernandez PA PA cp Davies, Jonathon, RN RN jd3 Alzahri, Mohammad, MD MD ma2
--- NOTE | 2021-07-31 19:01 | ER ---
Nurse's Notes [facility] Name: Natasha Spann Age: 36 yrs Sex: Female : 1985 Arrival Date: 07/31/2021 Time: 16:15 Bed 2 Private MD: Diagnosis: Chest pain, unspecified;UTI/ Urinary tract infection, site not specified Presentation: 07/31 16:22 Chief complaint: EMS states: "pt reports having chest pain that started at about 1400 jd3 today with nausea. pulses where irregular at first, but became more regular as we got here. we gave 4 baby aspirin and she said it started to get better, but started hurting again as we were walking in.". Coronavirus screen: At this time, the client does not indicate any symptoms associated with coronavirus-19. Ebola Screen: Patient negative for fever greater than or equal to 101.5 degrees Fahrenheit, and additional compatible Ebola Virus Disease symptoms. Initial Sepsis Screen: Does the patient meet any 2 criteria? No. Patient's initial sepsis screen is negative. Does the patient have a suspected source of infection? No. Patient's initial sepsis screen is negative. Risk Assessment: Do you want to hurt yourself or someone else? Patient reports no desire to harm self or others. Onset of symptoms was July 31, 2021. 16:22 Method Of Arrival: EMS: [facility] jd3 16:22 Acuity: EMILY 3 jd3 Historical: - Allergies: 16:26 Levofloxacin; jd3 16:26 Wellbutrin; jd3 16:26 bupropion HCl; jd3 - PMHx: 16:26 Ovarian cyst; MRSA; Gastric Reflux; Endometrosis; Bipolar disorder; Anxiety; ADD/ADHD; jd3 Depression; osteomylitis; UTI; - PSHx: 16:26 L BKA; jd3 - Immunization history:: Adult Immunizations up to date, Client reports having NOT received the Covid vaccine. - Social history:: Smoking status: Patient reports the use of cigarette tobacco products, smokes two packs cigarettes per day. Screenin:31 Abuse screen: Denies threats or abuse. Nutritional screening: No deficits noted. jd3 Tuberculosis screening: No symptoms or risk factors identified. Fall Risk Ambulatory Aid- None/Bed Rest/Nurse Assist (0 pts). Gait- Normal/Bed Rest/Wheelchair (0 pts) Mental Status- Oriented to own ability (0 pts). Total Steve Fall Scale indicates No Risk (0-24 pts). Assessment: 16:30 General: Appears in no apparent distress. comfortable, Behavior is calm, cooperative, jd3 appropriate for age. Pain: Complains of pain in chest Quality of pain is described as aching. Neuro: Level of Consciousness is awake, alert, obeys commands, Oriented to person, place, time, situation. Cardiovascular: Capillary refill < 3 seconds Patient's skin is warm and dry. Rhythm is irregular. Respiratory: Airway is patent Respiratory effort is even, unlabored, Respiratory pattern is regular, symmetrical, Denies cough, shortness of breath. GI: No signs and/or symptoms were reported involving the gastrointestinal system. : No signs and/or symptoms were reported regarding the genitourinary system. EENT: No signs and/or symptoms were reported regarding the EENT system. Derm: Skin is intact, Skin is dry, Skin is normal, Skin temperature is warm. Musculoskeletal: Circulation, motion, and sensation intact. Range of motion: intact in all extremities. 17:46 Reassessment: Patient appears in no apparent distress at this time. No changes from jd3 previously documented assessment. Patient and/or family updated on plan of care and expected duration. Pain level reassessed. Patient is alert, oriented x 3, equal unlabored respirations, skin warm/dry/pink. 18:31 Reassessment: Patient appears in no apparent distress at this time. No changes from jd3 previously documented assessment. Patient and/or family updated on plan of care and expected duration. Pain level reassessed. Patient is alert, oriented x 3, equal unlabored respirations, skin warm/dry/pink. 19:09 Reassessment: Patient appears in no apparent distress at this time. Patient and/or [facility] family updated on plan of care and expected duration. Pain level reassessed. Patient is alert, oriented x 3, equal unlabored respirations, skin warm/dry/pink. Patient states feeling better. Vital Signs: 16:26 BP 155 / 98; Pulse 74; Resp 15 S; Temp 98.2(O); Pulse Ox 100% on R/A; Weight 90.72 kg jd3 (R); Height 5 ft. 8 in. (172.72 cm) (R); Pain 6/10; 17:46 BP 157 / 109; Pulse 77; Resp 17 S; Pulse Ox 100% on R/A; jd3 18:31 BP 131 / 87; Pulse 77; Resp 16 S; Pulse Ox 100% on R/A; jd3 16:26 Body Mass Index 30.41 (90.72 kg, 172.72 cm) jd3 ED Course: 16:15 Patient arrived in ED. eb 16:17 Guera Mccarty MD is Attending Physician. ma2 16:17 Ole Lassiter PA is PHCP. cp 16:21 Blair Berkowitz, JONY is Primary Nurse. jd3 16:25 Triage completed. jd3 16:27 Arm band placed on. jd3 16:27 EKG completed in triage. Results shown to MD. jd3 17:04 Inserted saline lock: 20 gauge in left antecubital area, using aseptic technique. Blood kv1 collected. 17:05 Inserted saline lock: 22 gauge in right forearm, using aseptic technique. Blood kv1 collected. 17:06 Initial lab(s) drawn, by me, sent to lab. kv1 17:22 CT Aorta for Dissection In Process Unspecified. EDMS 18:02 Inserted saline lock: 22 gauge upper arm, using aseptic technique. Blood collected. kv1 18:07 Lab(s) recollected, by me, sent to lab. kv1 18:32 Patient has correct armband on for positive identification. Bed in low position. Call j light in reach. Side rails up X2. Adult w/ patient. cafeteria monitor on. Pulse ox on. NIBP on. 18:45 XRAY Chest (1 view) In Process Unspecified. EDMS 19:08 No provider procedures requiring assistance completed. IV discontinued, intact, jd3 bleeding controlled, No redness/swelling at site. Pressure dressing applied. Administered Medications: 17:13 Drug: morphine 2 mg Route: IVP; Site: right forearm; jd3 18:13 Follow up: Response: No adverse reaction; RASS: Alert and Calm (0) jd3 17:13 Drug: Pepcid (famotidine) 20 mg Route: IVP; Site: right forearm; jd3 18:13 Follow up: Response: No adverse reaction jd3 18:28 Drug: Rocephin (cefTRIAXone) 1 grams Route: IV; Rate: calculated rate; Site: left upper jd3 arm; 19:09 Follow up: Response: No adverse reaction; IV Status: Completed infusion jd3 Outcome: 19:00 Discharge ordered by . cp 19:09 Discharged to home ambulatory, with family. jd3 19:09 Condition: stable 19:09 Discharge instructions given to patient, Instructed on discharge instructions, follow up and referral plans. medication usage, Demonstrated understanding of instructions, follow-up care, medications, Prescriptions given X 2. 19:09 Patient left the ED. jd3 Addendum: 08/04/2021 12:36 Addendum: Culture Results: Positive urine culture. Phone call Attempt #1 Spoke with s s patient to follow up to see if initial antibiotic was working for her (Augmentin). Pt states that she chose not to fill her medication because she does not have insurance. Pt verbalizes understanding importance of following up and states that she is working with [facility] for assistance and follow up. Signatures: Dispatcher [employer] EDFabiola Miller RN RN ss Page, Corey, PA PA cp Davies, Jonathon, RN RN jd3 Alzahri, Mohammad, MD MD ma2 Lina Waller [facility]
[2021-07-31 19:28] VITALS: TEMP 98.2; O2SAT 100
[2021-07-31 19:31] VITALS: BP 131/87
== END 2021-07-31 19:09 | disposition home or self-care (01) ==
LOC: ER 16:12
DX: N39.0 Urinary tract infection, site not specified (principal); F17.210 Nicotine dependence, cigarettes, uncomplicated; Z88.3 Allergy status to other anti-infective agents; Z88.8 Allergy status to other drugs, medicaments and biological substances
CPT/HCPCS: 36415; 71045; 71275; 74175; 80048; 80076; 80307; 81003; 81015; 82565; 83735; 83880; 84484; 85025; 85610; 87077; 87086; 87088; 87186; 93005; 96365; 96375; 99284; J2270; Q9967

== ENCOUNTER 2021-08-21 14:14 | Emergency (ER) | payer SELFPAY ==
--- OUTSIDE RECORDS SUMMARY | 2021-08-21 14:20 | XMS REPORT | Continuity of Care Document ---
:1985 Author Organization [facility] t Address [address] [place] [address] Care Team Providers Name Role Phone Freddy [...] Date Expiration Date S mary lou [facility] [id number] 2019 00:00:00 WOMEN Advance Directives Directive Decision Effective Termination Comments Source Date Date Healthcare Agents on N/A [facility] ersity FileNameRelationshipHealthcare [facility] Agent Medical RelationshipCommunicationCanSt. Louis [facility] Mal[facility] Care [phone] (Mobile) Problems Condition Condition Condition Status Onset Resolution Last Treating Co mments Source Name Details Category Date Date Treatment Clinician Date Migraine Migraine Disease Active Unive rs without without 5-25 ity of status status 00:00: [place] migrainosu migrainosu 00 Me dical s, not s, not Branch intractabl intractabl e, e, unspecifie unspecifie d migraine d migraine type type Gastroesop Gastroesop Disease Active U nivers hageal hageal 525 ity of reflux reflux 00:00: [place] disease, disease, 00 Medica l esophagiti esophagiti [...] He alth Maternal grandmother Coronary artery [facility] Natural mother Coronary artery [facility] Maternal aunt Coronary artery [facility] Social History Social Habit Start Date Stop Date Quantity Comments Source History of tobacco 1992-02-15 Cigarette Smoker University of use 00:00:00 [facility] [place] Exposure to Yes University of SARS-CoV-2 (event) [facility] [place] Cigarettes smoked 2021-04-11 2021-04-11 Univers ity of current (pack per 00:00:00 00:00:00 ) - Reported Branch Tobacco use and 2021-04-11 2021-04-11 Never used Universit y of exposure 00:00:00 00:00:00 [facility] [place] Alcohol intake 2021-04-11 2021-04-11 Current University of 00:00:00 00:00:00 non-drinker of [facility] alcohol Branch (finding) Cigarette 2015-04-20 2015-04-20 [facility] pack-years 00:00:00 00:00:00 Alcohol Comment 2015-04-16 2015-04-16 last drink Raghu Thompson alth 00:00:00 00:00:00 02/2015 [birth year] Universit y of 00:00:00 00:00:00 [facility] [place] Smoking Status Start Date Stop Date Source Current every day smoker 2021-04-11 00:00:00 Uni versity of [facility] [place] Never smoker [facility] Medications Ordered Filled Start Stop Current Ordering Indication Dosage Frequency Signature Comments Components Source Medication Medication Date Date Medication? Clinician (SIG) Name Name ketorolac 2020- No 30mg 30 mg, Unive rs (TORADOL) 04-26 Slow IV ity of injection 22:00: 20:57 Push, [place] 30 mg 00 :00 ONCE, 1 Medical dose, [facility] 04/26/21 at 1700, Routine
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 Restricted medication : BLAYNE HAIRSTON morpHINE 2020- No 4mg 4 mg, Slow Un tracee injection 4 04-26 IV Push, ity of mg 20:30: 19:28 ONCE, 1 [place] 00 :00 dose, [facility] 04/26/21 at Branch 1530, STAT morpHINE 2020- No 4mg 4 mg, Slow Un tracee injection 4 04-26 IV Push, ity of mg 20:30: 19:28 ONCE, 1 [place] 00 :00 dose, [facility] 04/26/21 at Branch 1530, STAT ondansetron 2020- [...] 04/26/21 at 1330, STAT clonazePAM 2020- No [id number] 1mg Take 1 Univers (KLONOPIN) 04-17 tablet by ity of 1 mg tablet 00:00: 04:59 mouth 3 [place] :[place] (three) Medical times [place] daily for 5 days. clonazePAM 2020- No [id number] 1mg Take 1 Univers (KLONOPIN) 04-17 tablet by ity of 1 mg tablet 00:00: 04:59 mouth 3 [place] 00 :00 (three) Medical times [place] daily for 5 days. TOPIRAMATE 2020- No Take by Un tracee (TOPAMAX 04-12 mouth. ity of ORAL) 01:13: 00:00 [place] 52 :00 Medical Branch ARIPIPRAZOL 2020- No Take by U chetan E (ABILIFY 04-12 mouth. ity of ORAL) 01:13: 00:00 [place] 52 :00 Medical Branch FLUOXETINE 2020- No Take by Un tracee HCL (PROZAC 04-12 mouth. ity o f ORAL) 01:13: 00:00 [place] 52 :00 Medical Branch traMADoL 2020- No 50mg 50 mg, Univer s (ULTRAM) 04-29 Oral, ONCE ity of tablet 50 19:30: 18:35 NOW, 1 [place] mg 00 :00 dose, [facility] Medical 04/29/20 at Branch 1430, Routine ketorolac 2019- No 15mg 15 mg, Unive rs (TORADOL) 04-29 Slow IV ity of injection 17:15: 16:31 Push, [place] 15 mg 00 :00 ONCE, 1 Medical dose, [facility] Branch 04/29/20 at 1215, PUSHPA
Fa culty [...] Indication s: acute pain clindamycin 2020- No [id number] 450mg Take 3 Univers 150 mg 04-29 capsules ity of capsule 00:00: 04:59 by mouth 3 [place] 00 :00 (three) Medical times Branch daily for 10 days. ketorolac 2018- No 60mg 60 mg, Unive rs (TORADOL) 03-19 0730 Intramuscu ity of injection 05:45: 04:35 lar, ONCE, [place] 60 mg 00 :00 1 dose, Medical e Branch 03/19/19 at 0045, PUSHPA
Fa culty member approving Restricted medication : Vonda AGUILA ibuprofen Yes [id number] 600mg Take 1 U nivers 600 mg 7-29 tablet by ity of tablet 00:00: mouth [place] 00 every 6 Medical (six) Branch hours as needed for Pain (scale 4-6). ibuprofen Yes [id number] 600mg Take 1 U nivers 600 mg 7-29 tablet by ity of tablet 00:00: mouth [place] 00 every 6 Medical (six) Branch hours as needed for Pain (scale 4-6). ibuprofen Yes [id number] 600mg Take 1 U nivers 600 mg 7-29 tablet by ity of tablet 00:00: mouth [place] 00 every 6 Medical (six) Branch hours as needed for Pain (scale 4-6). ibuprofen 0 Yes [id number] 600mg Take 1 U nivers 600 mg 7-29 tablet by ity of tablet 00:00: mouth [place] 00 every 6 Medical (six) Branch hours as needed for Pain (scale 4-6). ibuprofen 2020- No [id number] 600mg Take 1 Univers 600 mg 7-29 08-22 tablet by ity of tablet 00:00: 00:00 mouth [place] 00 :00 every 6 Medical (six) Branch hours as needed for Pain (scale 4-6). TRAZODONE 0 Yes Take by Univ ers HCL 4-26 mouth. ity of (TRAZODONE 18:29: [place] ORAL) Medical Branch PROPRANOLOL Yes Take by Un tracee HCL 4-26 mouth. ity of (PROPRANOLO 18:29: [place] L ORAL) Medical Branch HYDROXYZINE Yes Take by Un tracee HCL ORAL 4-26 mouth. ity of 18:29: [place] [address] Medical Branch DULOXETINE Yes Take by Uni vers HCL 4-26 mouth. ity of (CYMBALTA 18:29: [place] ORAL) Medical Branch ARIPIPRAZOL Yes Take by Un tracee E (ABILIFY 4-26 mouth. ity of ORAL) 18:29: [place] [address] Medical Branch TRAZODONE 0 Yes Take by Univ ers HCL 4-26 mouth. ity of (TRAZODONE 18:29: [place] ORAL) Medical Branch PROPRANOLOL 0 Yes Take by Un tracee HCL 4-26 mouth. ity of (PROPRANOLO 18:29: [place] L ORAL) 35 Medical Branch HYDROXYZINE 0 Yes Take by Un tracee HCL ORAL 4-26 mouth. ity of 18:29: [place] [address] Medical Branch DULOXETINE 0 Yes Take by Uni vers HCL 4-26 mouth. ity of (CYMBALTA 18:29: [place] ORAL) 35 Medical Branch ARIPIPRAZOL 0 Yes Take by Un tracee E (ABILIFY 4-26 mouth. ity of ORAL) 18:29: [place] [address] Medical Branch TRAZODONE Yes Take by Univ ers HCL 4-26 mouth. ity of (TRAZODONE 18:29: [place] ORAL) 35 Medical Branch PROPRANOLOL 0 Yes Take by Un tracee HCL 4-26 mouth. ity of (PROPRANOLO 18:29: [place] L ORAL) 35 Medical Branch HYDROXYZINE Yes Take by Un tracee HCL ORAL 4-26 mouth. ity of 18:29: [place] [address] Medical Branch DULOXETINE Yes Take by Uni vers HCL 4-26 mouth. ity of (CYMBALTA 18:29: [place] ORAL) 35 Medical Branch ARIPIPRAZOL Yes Take by Un tracee E (ABILIFY 4-26 mouth. ity of ORAL) 18:29: [place] [address] Medical Branch TRAZODONE Yes Take by Univ ers HCL 4-26 mouth. ity of (TRAZODONE 18:29: [place] ORAL) Medical Branch PROPRANOLOL Yes Take by Un tracee HCL 4-26 mouth. ity of (PROPRANOLO 18:29: [place] L ORAL) Medical Branch HYDROXYZINE Yes Take by Un tracee HCL ORAL 4-26 mouth. ity of 18:29: [place] [address] Medical Branch DULOXETINE Yes Take by Uni vers HCL 4-26 mouth. ity of (CYMBALTA 18:29: [place] ORAL) Medical Branch ARIPIPRAZOL Yes Take by Un tracee E (ABILIFY 4-26 mouth. ity of ORAL) 18:29: [place] [address] Medical Branch TRAZODONE Yes Take by Univ ers HCL 4-26 mouth. ity of (TRAZODONE 18:29: [place] ORAL) Medical Branch PROPRANOLOL 0 Yes Take by Un tracee HCL 4-26 mouth. ity of (PROPRANOLO 18:29: [place] L ORAL) 35 Medical Branch HYDROXYZINE 0 Yes Take by Un tracee HCL ORAL 4-26 mouth. ity of 18:29: [place] [address] Medical Branch DULOXETINE Yes Take by Uni vers HCL 4-26 mouth. ity of (CYMBALTA 18:29: [place] ORAL) 35 Medical Branch TRAZODONE 2019-0 Yes Take by [...] HCL ORAL 4-26 mouth. ity of 18:29: [place] 35 Medical Branch DULOXETINE Yes Take by [...] HCL ORAL 4-26 mouth. ity of 18:29: [place] 35 Medical Branch DULOXETINE Yes Take by [...] HCL ORAL 4-26 mouth. ity of 18:29: [place] [address] Medical Branch DULOXETINE Yes Take by Uni vers HCL 4-26 mouth. ity of (CYMBALTA 18:29: [place] ORAL) 35 Medical Branch Miscellaneo 0 Yes [id number] [facility] 12-1404 EXTREMITY ity of Supply Misc 00:00: PROSTHES [place] 00 NOS, Left Medical bka, needs Branch new prosthesis and supplies Miscellaneo Yes [id number] [facility] 12-14 9104 EXTREMITY ity of Supply Misc 00:00: PROSTHES [place] 00 NOS, Left Medical bka, needs Branch new prosthesis and supplies Miscellaneo 2018- Yes [id number] [facility] 12-14 EXTREMITY ity of Supply Misc 00:00: PROSTHES [place] 00 NOS, Left Medical bka, needs Branch new prosthesis and supplies Miscellaneo 2019-0 Yes [id number] [facility] 12-1404 EXTREMITY ity of Supply Misc 00:00: PROSTHES [place] 00 NOS, Left Medical bka, needs Branch new prosthesis and supplies Miscellaneo 2020- No [id number] [facility] 12-14 9104 EXTREMITY ity of Supply Misc 00:00: 00:00 PROSTHES [place] 00 :00 NOS, Left Medical bka, needs Branch new prosthesis and supplies TOPIRAMATE Yes Take by Uni vers (TOPAMAX 4-19 mouth. ity of ORAL) 01:22: [address] Branch TOPIRAMATE 2018-0 Yes Take by Uni vers (TOPAMAX 4-19 mouth. ity of ORAL) 01:22: [address] TOPIRAMATE 2018-0 Yes Take by Uni vers (TOPAMAX 4-19 mouth. ity of ORAL) 01:22: [address] Branch TOPIRAMATE 2018-0 Yes Take by Uni vers (TOPAMAX 4-19 mouth. ity of ORAL) 01:22: [address] acetaminoph Yes [id number] 1{tbl} Take 1 Univers en-codeine 4-18 tablet by ity of (TYLENOL-CO 00:00: mouth [place] DEINE #3) 00 every 4 Medical 300-30 mg (four) Branch tablet hours as needed for Pain (scale 7-10). cephALEXin Yes [id number] 250mg Take 1 Univers (KEFLEX) 4-18 capsule by ity o f 250 mg 00:00: mouth [place] capsule 00 every 6 Medical (six) Branch hours. acetaminoph Yes [id number] 1{tbl} Take 1 Univers en-codeine 4-18 tablet by ity of (TYLENOL-CO 00:00: mouth [place] DEINE #3) 00 every 4 Medical 300-30 mg (four) Branch tablet hours as needed for Pain (scale 7-10). cephALEXin Yes [id number] 250mg Take 1 Univers (KEFLEX) 4-18 capsule by ity o f 250 mg 00:00: mouth [place] capsule 00 every 6 Medical (six) Branch hours. acetaminoph 0 Yes [id number] 1{tbl} Take 1 Univers en-codeine 4-18 tablet by ity of (TYLENOL-CO 00:00: mouth [place] DEINE #3) 00 every 4 Medical 300-30 mg (four) Branch tablet hours as needed for Pain (scale 7-10). cephALEXin Yes [id number] 250mg Take 1 Univers (KEFLEX) 4-18 capsule by ity o f 250 mg 00:00: mouth [place] capsule 00 every 6 Medical (six) Branch hours. acetaminoph Yes [id number] 1{tbl} Take 1 Univers en-codeine 4-18 tablet by ity of (TYLENOL-CO 00:00: mouth [place] DEINE #3) 00 every 4 Medical 300-30 mg (four) Branch tablet hours as needed for Pain (scale 7-10). cephALEXin Yes [id number] 250mg Take 1 Univers (KEFLEX) 4-18 capsule by ity o f 250 mg 00:00: mouth [place] capsule 00 every 6 Medical (six) Branch hours. acetaminoph 2020- No [id number] 1{tbl} Take 1 Univers en-codeine 4-18 08-22 tablet by ity of (TYLENOL-CO 00:00: 00:00 [place] DEINE #3) 00 :00 every 4 Medical 300-30 mg (four) Branch tablet hours as needed for Pain (scale 7-10). cephALEXin 2020- No [id number] 250mg Take 1 Univers (KEFLEX) 4-18 08-22 capsule by ity of 250 mg 00:00: 00:00 mouth [place] capsule 00 :00 every 6 Medical (six) Branch hours. ibuprofen 2019- No [id number] 600mg Take 1 Univers 600 mg 3-06 27- 3 tablet by ity of tablet 00:00: 00:00 mouth [place] 00 :00 every 6 Medical (six) Branch hours as needed for Pain (scale 4-6). sulfamethox Yes [id number] 1{tbl} Take 1 Univers azole-trime 2-12 tablet by ity of thoprim 00:00: mouth [place] 800-160 mg 00 every 12 Medic al per tablet (twelve) Branc h hours. sulfamethox 2018- Yes [id number] 1{tbl} Take 1 Univers azole-trime 2-12 tablet by ity of thoprim 00:00: mouth [place] 800-160 mg 00 every 12 Medic al per tablet (twelve) Branc h hours. sulfamethox 2018- Yes [id number] 1{tbl} Take 1 Univers azole-trime 2-12 tablet by ity of thoprim 00:00: mouth [place] 800-160 mg 00 every 12 Medic al per tablet (twelve) Branc h hours. sulfamethox 2018- Yes [id number] 1{tbl} Take 1 Univers azole-trime 2-12 tablet by ity of thoprim 00:00: mouth [place] 800-160 mg 00 every 12 Medic al per tablet (twelve) Branc h hours. sulfamethox 2018- 2021- No [id number] 1{tbl} Take 1 Univers azole-trime 2-12 08-22 tablet by it y of thoprim 00:00: 00:00 mouth [place] 800-160 mg 00 :00 every 12 Medic al per tablet (twelve) Branc h hours. FLUOXETINE Yes Take by Uni vers HCL (PROZAC 6-27 mouth. ity of ORAL) 17:12: [address] FLUOXETINE Yes Take by Uni vers HCL (PROZAC 6-27 mouth. ity of ORAL) 17:12: [address] FLUOXETINE Yes Take by Uni vers HCL (PROZAC 6-27 mouth. ity of ORAL) 17:12: [address] FLUOXETINE Yes Take by Uni vers HCL (PROZAC 6-27 mouth. ity of ORAL) 17:12: [address] pantoprazol Yes [id number] 40mg Take 1 Univers e 6-27 tablet by ity of (PROTONIX) 00:00: mouth 2 [place] 40 mg EC 00 (two) Medical tablet times Branch daily. fluticasone 2017- Yes [id number] 2{spray Use 2 Univers 50 6-27 } Sprays in ity of mcg/actuati 00:00: each [place] on nasal 00 nostril Medical spray daily. Branch pantoprazol Yes [id number] 40mg Take 1 Univers e 6-27 tablet by ity of (PROTONIX) 00:00: mouth 2 [place] 40 mg EC 00 (two) Medical tablet times Branch daily. fluticasone 2017- Yes [id number] 2{spray Use 2 Univers 50 6-27 } Sprays in ity of mcg/actuati 00:00: each [place] on nasal 00 nostril Medical spray daily. Branch pantoprazol 2017- Yes [id number] 40mg Take 1 Univers e 6-27 tablet by ity of (PROTONIX) 00:00: mouth 2 [place] 40 mg EC 00 (two) Medical tablet times Branch daily. fluticasone 2017- Yes [id number] 2{spray Use 2 Univers 50 6-27 } Sprays in ity of mcg/actuati 00:00: each [place] on nasal 00 nostril Medical spray daily. Branch pantoprazol Yes [id number] 40mg Take 1 Univers e 6-27 tablet by ity of (PROTONIX) 00:00: mouth 2 [place] 40 mg EC 00 (two) Medical tablet times Branch daily. fluticasone 2017- Yes [id number] 2{spray Use 2 Univers 50 6-27 } Sprays in ity of mcg/actuati 00:00: each [place] on nasal 00 nostril Medical spray daily. Branch pantoprazol 2020- No [id number] 40mg Take 1 Univers e 6-27 08-22 tablet by ity of (PROTONIX) 00:00: 00:00 mouth 2 [place] 40 mg EC 00 :00 (two) Medical tablet times Branch daily. fluticasone 2017-2020- No [id number] 2{spray Use 2 Univers 50 6-27 08-22 [...] tablet times Branch daily with meals. metoclopram 2017- Yes [id number] 1 tab U nivers arianne HCl 10 5-25 every 4hr ity of mg tablet 00:00: as needed [place] 00 for nausea Medical Branch metoclopram Yes [id number] 1 tab U nivers arianne HCl 10 5-25 every 4hr ity of mg tablet 00:00: as needed [place] 00 for nausea Medical Branch metoclopram Yes [id number] 1 tab U nivers arianne HCl 10 5-25 every 4hr ity of mg tablet 00:00: as needed [place] 00 for nausea Medical Branch metoclopram Yes [id number] 1 tab U nivers arianne HCl 10 5-25 every 4hr ity of mg tablet 00:00: as needed [place] 00 for nausea Medical Branch metoclopram 2017-0 2020- No [id number] 1 tab Univers arianne HCl 10 5-25 08-22 every 4hr ity of mg tablet 00:00: 00:00 [place] needed [place] 00 :00 for nausea Medical Branch phenazopyri 2018-0 Yes 200mg Take 1 Uni vers dine 200 mg 5-10 tablet by ity of tablet 00:00: mouth 3 00 (three) Medical times Branch daily. ondansetron [...] (three) Medical times Branch daily. ondansetron 2018-0 2020- No 4mg Take 1 Uni vers (ZOFRAN 5-10 08-22 tablet by ity of ODT) 4 mg 00:00: 00:00 mouth [place] disintegrat 00 :00 every 8 Medic al ing tablet (eight) Branch hours as needed for Nausea and Vomiting (N/V). acetaminoph 2018-0 Yes [id number] 1{tbl} Take 1-2 Univers en-codeine 5-01 tablets by ity of 300-30 mg 00:00: mouth [place] tablet 00 every 6 Medical (six) Branch hours as needed for Pain (scale 4-6) or Pain (scale 7-10) (for breakthrou gh pain). acetaminoph 2018-0 Yes [id number] 1{tbl} Take 1-2 Univers en-codeine 5-01 tablets by ity of 300-30 mg 00:00: mouth [place] tablet 00 every 6 Medical (six) Branch hours as needed for Pain (scale 4-6) or Pain (scale 7-10) (for breakthrou gh pain). acetaminoph Yes [id number] 1{tbl} Take 1-2 Univers en-codeine 5-01 tablets by ity of 300-30 mg 00:00: mouth [place] tablet 00 every 6 Medical (six) Branch hours as needed for Pain (scale 4-6) or Pain (scale 7-10) (for breakthrou gh pain). acetaminoph Yes [id number] 1{tbl} Take 1-2 Univers en-codeine 5-01 tablets by ity of 300-30 mg 00:00: mouth [place] tablet 00 every 6 Medical (six) Branch hours as needed for Pain (scale 4-6) or Pain (scale 7-10) (for breakthrou gh pain). acetaminoph 2020- No [id number] 1{tbl} Take 1-2 Univers en-codeine 5-01 08-22 tablets by it y of 300-30 mg 00:00: 00:00 mouth [place] tablet 00 :00 every 6 Medical (six) Branch hours as needed for Pain (scale 4-6) or Pain (scale 7-10) (for breakthrou gh pain). meclizine Yes [id number] 25mg Take 1 U nivers 25 mg 3-30 tablet by ity of tablet 00:00: mouth 3 [place] 00 (three) Medical times Branch daily as needed for Dizziness. meclizine Yes [id number] 25mg Take 1 U nivers 25 mg 3-30 tablet by ity of tablet 00:00: mouth 3 [place] 00 (three) Medical times Branch daily as needed for Dizziness. meclizine Yes [id number] 25mg Take 1 U nivers 25 mg 3-30 tablet by ity of tablet 00:00: mouth 3 [place] 00 (three) Medical times Branch daily as needed for Dizziness. meclizine Yes [id number] 25mg Take 1 U nivers 25 mg 3-30 tablet by ity of tablet 00:00: mouth 3 [place] 00 (three) Medical times Branch daily as needed for Dizziness. meclizine 2020- No [id number] 25mg Take 1 Univers 25 mg 3-30 [...] MG 15:00: mouth Medical tablet 29 nightly. [place] ARIPiprazol 2016-08 Yes 15mg QD Take 15 [...] 2 Krishnamurthy formoterol 8-27 chronic Puffs by Jay pan (SYMBICORT) 00:00: bronchitis mouth 2 80-4.5 00 times mcg/actuati daily on inhaler Rinse mouth after each use.. Vital Signs Vital Name Observation Time Observation Value Comments Source Systolic blood 2021-04-26 22:15:00 113 mm[Hg] [facility] blood 2021-04-26 22:15:00 79 mm[Hg] Unive [facility] Heart rate 2021-04-26 22:15:00 59 /min [facility] Respiratory rate 2021-04-26 22:15:00 13 /min [facility] Oxygen saturation in 2021-04-26 22:15:00 99 /min [facility] Arterial blood by [facility] Pulse oximetry Branch Body temperature 2021-04-26 17:03:00 36.72 [place] [facility] Body weight 2021-04-26 17:03:00 90.719 kg [facility] BMI 2021-04-26 17:03:00 30.41 kg/m2 [facility] Systolic blood 2021-04-17 23:53:00 130 mm[Hg] Univer [facility] Diastolic blood 2021-04-17 23:53:00 75 mm[Hg] Unive rsity of pressure [place] [facility] Heart rate 2021-04-17 23:53:00 78 /min [facility] [place] [facility] Body temperature 2021-04-17 23:53:00 36.94 [place] Univ ersity of [place] [facility] Respiratory rate 2021-04-17 23:53:00 20 /min Univ ersity of [place] [facility] Body weight 2021-04-17 23:53:00 90.719 kg [facility]i ty [facility] [place] [facility] BMI 2021-04-17 23:53:00 30.41 kg/m2 [facility] [place] [facility] Oxygen saturation in 2021-04-17 23:53:00 100 /min University of Arterial blood by [place] [facility] mary ann Pulse oximetry Branch Systolic blood 2021-04-12 00:15:00 167 mm[Hg] Univer sity of pressure [place] [facility] Diastolic blood 2021-04-12 00:15:00 106 mm[Hg] Unive rsity of pressure [place] [facility] Heart rate 2021-04-12 00:15:00 89 /min Universi ty [facility] [place] [facility] Body temperature 2021-04-12 00:15:00 37.22 [place] Univ ersity of [place] [facility] Respiratory rate 2021-04-12 00:15:00 18 /min Univ ersity of [place] [facility] Body weight 2021-04-12 00:15:00 86.183 kg [facility]i [facility] [place] [facility] BMI 2021-04-12 00:15:00 28.89 kg/m2 Univers[facility] [place] [facility] Oxygen saturation in 2021-04-12 00:15:00 98 /min University of Arterial blood by [place] [facility] mary ann Pulse oximetry Branch Systolic blood 2020-04-29 19:15:00 124 mm[Hg] Univer sity of pressure [place] [facility] Diastolic blood 2020-04-29 19:15:00 86 mm[Hg] Unive rsity of pressure [place] [facility] Heart rate 2020-04-29 19:15:00 59 /min Universi ty [facility] [place] [facility] Respiratory rate 2020-04-29 19:15:00 17 /min Univ ersity of [place] [facility] Oxygen saturation in 2020-04-29 19:15:00 99 /min University of Arterial blood by [place] [facility] mary ann Pulse oximetry Branch Body temperature 2020-04-29 15:43:00 37.11 [place] Univ ersity of [place] [facility] Body height 2020-04-29 15:43:00 172.7 cm [facility] [place] [facility] Body weight 2020-04-29 15:43:00 86.183 kg [facility] [place] [facility] BMI 2020-04-29 15:43:00 28.89 kg/m2 [facility] [place] [facility] Systolic blood 2020-04-29 19:15:00 124 mm[Hg] Univer sity of pressure [place] [facility] Diastolic blood 2020-04-29 19:15:00 86 mm[Hg] Unive rsity of pressure [place] [facility] Heart rate 2020-04-29 19:15:00 59 /min [facility]i [facility] [place] [facility] Respiratory rate 2020-04-29 19:15:00 17 /min Univ ersity of [place] [facility] Oxygen saturation in 2020-04-29 19:15:00 99 /min University of Arterial blood by [place] [facility] mary ann Pulse oximetry Branch Body temperature 2020-04-29 15:43:00 37.11 [place] Univ ersity of [place] [facility] Body height 2020-04-29 15:43:00 172.7 cm [facility] [place] [facility] Body weight 2020-04-29 15:43:00 86.183 kg [facility] [place] [facility] BMI 2020-04-29 15:43:00 28.89 kg/m2 [facility] [place] [facility] Systolic blood 2019-04-14 22:23:00 146 mm[Hg] Univer sity of pressure [place] [facility] Diastolic blood 2019-04-14 22:23:00 82 mm[Hg] Unive rsity of pressure [place] [facility] Heart rate 2019-04-14 22:23:00 82 /min [facility]i [facility] [place] [facility] Body temperature 2019-04-14 22:23:00 36.72 [place] Univ ersity [facility] [place] [facility] Respiratory rate 2019-04-14 22:23:00 18 /min Univ ersity of [place] [facility] Body weight 2019-04-14 22:23:00 90.719 kg [facility] [place] [facility] BMI 2019-04-14 22:23:00 30.41 kg/m2 [facility] [place] [facility] Oxygen saturation in 2019-04-14 22:23:00 98 /min University of Arterial blood by [place] [facility] mary ann Pulse oximetry Branch Systolic blood 2019-04-14 22:23:00 146 mm[Hg] Univer sity of pressure [place] [facility] Diastolic blood 2019-04-14 22:23:00 82 [...] 2019-04-14 22:23:00 30.41 kg/m2 [facility] [place] [facility] Oxygen saturation in 2019-04-14 22:23:00 98 /min University of Arterial blood by [facility] Pulse oximetry Branch Systolic blood 2019-03-19 04:00:00 122 mm[Hg] Univer sity of pressure [place] [facility] Diastolic blood 2019-03-19 04:00:00 78 mm[Hg] Unive rsity of pressure [place] [facility] Heart rate 2019-03-19 04:00:00 68 /min [facility] [place] [facility] Respiratory rate 2019-03-19 04:00:00 18 /min Univ ersity of [place] [facility] Branch Oxygen saturation in 2019-03-19 04:00:00 97 /min [facility] blood by [place] [employer] Pulse oximetry Branch Body temperature 2019-03-19 03:28:00 36.67 [facility] [place] [facility] Body weight 2019-03-19 03:28:00 90.719 kg [facility] BMI 2019-03-19 03:28:00 30.41 kg/m2 [facility] Systolic blood 2019-03-19 04:00:00 122 mm[Hg] [facility] [place] [facility] Diastolic blood 2019-03-19 04:00:00 78 mm[Hg] [facility] [place] [facility] Heart rate 2019-03-19 04:00:00 68 /min [facility] Respiratory rate 2019-03-19 04:00:00 18 /min [facility] [place] [facility] Oxygen saturation in 2019-03-19 04:00:00 97 /min [facility] Arterial blood by [facility] Pulse oximetry Branch Body temperature 2019-03-19 03:28:00 36.67 Michell Univ [facility] Body weight 2019-03-19 03:28:00 90.719 kg [facility] BMI 2019-03-19 03:28:00 30.41 kg/m2 [facility] Procedures Procedure Date / Time Performing Clinician Source Performed FREE T4 2021-04-26 20:43:00 Blayne Hairston [facility] CREATINE KINASE 2021-04-26 20:41:00 Blayne Hairston [facility] MAGNESIUM 2021-04-26 20:41:00 Blayne Hairston [facility] TROPONIN I 2021-04-26 20:41:00 Blayne Hairston [facility] COMP. METABOLIC PANEL 2021-04-26 20:41:00 Blayne Hairston [facility] ([id number]) Medical [place] SEDIMENTATION RATE 2021-04-26 19:33:00 Blayne Hairston [facility] CT CERVICAL SPINE WO 2021-04-26 19:00:47 Blayne Hairston [facility] CONTRAST [facility] CT HEAD WO CONTRAST 2021-04-26 19:00:47 Blayne Hairston [facility] COVID-19 (ID NOW RAPID 2021-04-26 18:30:00 Blayne Hairston [facility] TESTING) [facility] THYROID STIMULATING 2021-04-26 18:25:00 Blayne Hairston [facility] HORMONE [facility] CBC WITH DIFF 2021-04-26 18:25:00 Blayne Hairston [facility] N-TERMINAL PRO-BNP 2021-04-26 18:25:00 Blayne Hairston [facility] POCT TEST 2021-04-26 18:24:00 Blayne Hairston [facility] URINALYSIS 2021-04-26 18:23:00 Blayne Hairston [facility] URINE DRUG (IMMUNOASSAY) 2021-04-26 18:23:00 Blayne Hairston [facility] Medical [facility] nch SCREEN W/O REFLEX CONSENT/REFUSAL FOR 2021-04-26 16:29:45 Doctor Unassigned, No Un [facility] DIAGNOSIS AND TREATMENT Name Medical Branch ASSIGNMENT OF BENEFITS 2021-04-18 01:01:09 Doctor Unassigned, No [facility] Branch CONSENT/REFUSAL FOR 2021-04-17 23:47:56 Doctor Unassigned, No [facility] [place] [facility] Name Medical Branch POCT TEST 2021-04-12 00:20:00 John Hinkle [facility] URINALYSIS 2021-04-12 00:18:00 John Hinkle [facility] CONSENT/REFUSAL FOR 2021-04-12 00:10:24 Doctor Unassigned, No [facility] [place] [facility] TREATMENT Name [facility] XR KNEE 3 VW LEFT 2020-04-29 16:37:20 Amaris Stallings [facility] COMP. METABOLIC PANEL 2020-04-29 16:30:00 Amaris Stallings [facility] ([id number]) [facility] CBC WITH DIFF 2020-04-29 16:30:00 Amaris Stallings [facility] POCT TEST 2020-04-29 16:24:00 Amaris Stallings [facility] RAPID STREP SCREEN FOR 2020-04-29 16:11:00 Amaris Stallings [facility] GROUP A Medical Branch NOTICE OF PRIVACY 2020-04-29 15:31:17 Doctor Unassigned, No [facility] CONSENT/REFUSAL FOR 2020-04-29 15:31:01 Doctor Unassigned, No [facility] [place] [facility] POCT TEST 2019-03-19 04:24:00 Vonda Aguila [facility] NOTICE OF PRIVACY 2019-03-19 03:19:57 Doctor Unassigned, No [facility] Medical Branch CONSENT/REFUSAL FOR 2019-03-19 03:19:41 Doctor Unassigned, No [facility] [place] DIAGNOS[facility] AND TREATMENT Name Medical Branch Plan of Care Planned Activity Planned Date Details Comments Source Future Scheduled 2021-05-21 IMM Influenza Krishnamurthy [facility] Test 00:00:00 Seasonal May to October (>/= 19 yrs) [code = IMM Influenza Seasonal May to October (>/= 19 yrs)] Future Scheduled 2020-04-20 Screening for [facility] Test 00:00:00 malignant neoplasm of cervix (procedure) [code = 187713172] Future Scheduled 2015 Screening for [facility] Test 00:00:00 malignant neoplasm of cervix (procedure) [code = 381960340] Future Scheduled 1997 COVID-19 Vaccine [facility] Test 00:00:00 (1) [code = COVID-19 Vaccine (1)] Future Scheduled COVID-[address] [facility] (1) [code = COVID-19 VACCINE (1)] Future Scheduled [facility] Test malignant neoplasm of cervix (procedure) [code = 781009587] Future Scheduled [facility]ENZA [facility]ACCINE [facility] [code = INFLUENZA VACCINE] Encounters Start End Encounter Admission Attending Care Care Encounter Source Date/Time Date/Time Type Type Clinicians Facility Department ID 2021-06-21 Emergency [facility] [id number] Univers 20:38:37 [facility] [place] 2021-06-21 Emergency [facility] [id number] Univers 18:47:54 [facility] [place] 2021-06-21 [facility] [id number] Univers 17:14:45 [facility] [place] 2021-06-18 [facility] [id number] Univers 16:34:49 [facility] [place] 2021-04-26 2021-04-26 [facility] [id number] Univers 12:05:00 17:42:00 Blayne Smith [id number] [facility] ty [facility] [place] 4.2.7.2.686 [facility] [id number] [facility] 084 Branch 2021-04-26 2021-04-26 Orders Doctor ANTHONY 1.2.840.114 [id number] Univers 00:00:00 00:00:00 Only Unassigned, LINDA [id number] ity of [place] [facility] 4.2.7.2.686 [facility] [id number] [facility] 009 Branch 2021-04-17 2021-04-17 Emergency Singer [facility] [id number] Univers 18:55:00 20:04:00 Basil Sarah [id number] [facility] [place] 4.2.7.2.686 [facility] [id number] [address] 2021-04-11 2021-04-11 [facility] [id number] [facility] 19:20:00 20:53:00 Gisselle Jeter Sarah 350.1.13.10 i ty [facility] [place] 4.2.7.2.686 [facility] [id number] [place] [address] Branch 2020-04-29 2020-04-29 [facility] [id number] Univers 10:44:00 14:30:00 Amaris Smith 350.1.13.10 i ty [facility] [place] 4.2.7.2.686 [facility] [id number] [address] 2020-04-29 2020-04-29 [facility] [id number] 10:44:00 14:30:00 Amaris Smith [id number] [place] [address] [place] [address] [id number] [facility] 2020-04-29 2020-04-29 Orders Doctor CRUZ [id number] Univers 00:00:00 00:00:00 Only Unassigned, LINDA [id number] ity of [place] [facility] 4.2.7.2.686 [facility] [id number] [place] [address] Branch 2020-04-29 2020-04-29 Orders Doctor ANTHONY 1.2.840.114 [id number] 00:00:00 00:00:00 Only Unassigned, LINDA 350.1.13.10 [place] [facility] 4.2.7.2.686 [id number] [id number] 2019-04-14 2019-04-14 [facility] [id number] Univers 17:25:25 17:58:00 Ad Smith 350.1.13.10 i ty [facility] [place] 4.2.7.2.686 [facility] [id number] [place] [address] Branch 2019-04-14 2019-04-14 Emergency Concepcion [facility] [id number] 17:25:25 17:58:00 Ad Smith 350.1.13.10 [place] 4.2.7.2.686 [place] [id number] [facility] 2019-03-18 2019-03-18 Emergency Vonda Aguila [facility] [id number] [facility] 22:34:35 23:51:00 Maribel Ellsworth 350.1.13.10 i ty [facility] [place] 4.2.7.2.686 [facility] [id number] [place] [address] Branch 2019-03-18 2019-03-18 Emergency Vonda Aguila [facility] [id number] 22:34:35 23:51:00 Maribel Smith 350.1.13.10 [place] 4.2.7.2.686 [place] [address] [id number] [facility] 2017-04-09 2017-04-09 Emergency [facility] [id number] [place] 00:00:00 00:00:00 Health 2017-04-09 2017-04-09 Emergency [facility] [id number] [place] 00:00:00 00:00:00 [facility] 2017-04-08 2017-04-08 Emergency [facility] [id number] [place] 22:35:00 22:35:00 [facility] 2017-04-08 2017-04-08 Emergency [facility] [id number] [place] 00:00:00 00:00:00 Health Results Test Description Test Time Test Comments Results Result Comments Source FREE T4 2021-04-26 22:21:43 Test Item Value Reference Range Interpretation Comme nts FREE T4 (test code = See_Comment [Autom ated message] The system [id number]) which generated this result transmitted ref erence range: 0.78 - 2.20 ng/dL:. The reference range was not u sed to interpret this result as normal/abnormal. Lab Interpretation (test code = Normal 39826-2) [facility] [id number] 22:21:43 Test Item Value Reference Range Interpretation Comments FREE T4 (test code = See_Comment [Autom ated message] 6058816306) The system whic h generated this result transmitted ref erence range: 0.78 - 2 .20 ng/dL:. The ref erence range was not u sed to interpret this result as normal/abnor mal. Lab Interpretation (test Normal code = 49130-3) [facility] [place], [place] [id number] 21:24:56 Test Item Value Reference Interpretation Comments Range TROPONIN I (test <0.012 See_Comment [Automated code = 7743931124) message] The system which generated this result [...] biotin. Lab Interpretation Normal (test code = 34252-7) [facility] [place] [id number] 21:24:56 Test Item Value Reference Interpretation Comments Range TROPONIN I (test <0.012 See_Comment [Automated code = 0936830638) message] The system which generated this result [...] biotin. Lab Interpretation Normal (test code = 74548-4) [facility]14:38 Test Item Value Reference Range Interpretation Comments MAGNESIUM (test code = 2427330237) 1.7 mg/dL 1.7-2.4 Lab Interpretation (test code = Normal 00346-4) [facility] 21:14:38 Test Item Value Reference Range Interpretation Comments MAGNESIUM (test code = 0840086915) 1.7 mg/dL 1.7-2.4 Lab Interpretation (test code = Normal 39056-0) [facility] ([id number])2021-04-26 21:14:18 Test Item Value Reference Range Interpretation Comments NA (test code = 139 mmol/L 135-145 6865999228) K (test code = 4.1 mmol/L 3.5-5.0 1794159103) CL (test code = 110 mmol/L 98-108 H 3479441955) CO2 TOTAL (test code = 25 mmol/L 23-31 1138241730) AGAP (test code = 2-16 6769585737) BUN (test code = 6 mg/dL 7-23 L 1924043000) GLUCOSE (test code = 96 mg/dL 70-110 1792747300) CREATININE (test code = 0.50 mg/dL 0.50-1.04 9742747942) TOTAL BILI (test code = 0.2 mg/dL 0.1-1.0 6038884056) CALCIUM (test code = 8.8 mg/dL 8.6-10.6 1979069739) T PROTEIN (test code = 6.9 g/dL 6.3-8.2 2388700128) ALBUMIN (test code = 4.0 g/dL 3.5-5.0 0433622598) ALK PHOS (test code = 73 U/L 34-122 4926373491) ALTv (test code = 15 U/L 5-35 1742-6) AST(SGOT) (test code = 20 U/L 13-40 8670090501) eGFR (test code = mL/min/1.73m2 1299561173) DIEGO (test code = DIEGO) Association of [...] tests). Lab Interpretation Abnormal (test code = 17866-9) [facility]. METABOLIC PANEL (91545)2021-04-26 21:14:18 Test Item Value Reference Range Interpretation Comments NA (test code = 139 mmol/L 135-145 9871431280) K (test code = 4.1 mmol/L 3.5-5.0 7118780867) CL (test code = 110 mmol/L 98-108 H 1858801084) CO2 TOTAL (test code = 25 mmol/L 23-31 1564803389) AGAP (test code = 2-16 2564062223) BUN (test code = 6 mg/dL 7-23 L 3093907399) GLUCOSE (test code = 96 mg/dL 70-110 6513641135) CREATININE (test code = 0.50 mg/dL 0.50-1.04 1868738916) TOTAL BILI (test code = 0.2 mg/dL 0.1-1.0 6143547512) CALCIUM (test code = 8.8 mg/dL 8.6-10.6 3069303648) T PROTEIN (test code = 6.9 g/dL 6.3-8.2 0830759389) ALBUMIN (test code = 4.0 g/dL 3.5-5.0 9206173667) ALK PHOS (test code = 73 U/L 34-122 2968908942) ALTv (test code = 15 U/L 5-35 1742-6) AST(SGOT) (test code = 20 U/L 13-40 4656883037) eGFR (test code = mL/min/1.73m2 1087089267) DIEGO (test code = DIEGO) Association of [...] tests). Lab Interpretation Abnormal (test code = 69021-2) [facility] [id number] 21:14:17 Test Item Value Reference Range Interpretation Comments CK (test code = 6004541694) 35 U/L 33-194 Lab Interpretation (test code = Normal 79456-9) [facility] [id number] 21:14:17 Test Item Value Reference Range Interpretation Comments CK (test code = 9750617350) 35 U/L 33-194 Lab Interpretation (test code = Normal 68349-7) [facility] DRUG (IMMUNOASSAY) - COMPREHENSIVE DRUG SCREEN W/O [id number] 20:20:42 Test Item Value Reference Range Interpretation Comments AMPHET (test code = Negative Negative 7327234071) NASEEM U (test code = Negative Negative 8818160142) BENZO U (test code = Negative Negative 7706008582) Cocaine Metabolite (test Negative Negative code = 7212998721) METHADONE (test code = Negative Negative 6740208784) OPIATES (test code = Negative Negative 4290732776) PCP (test code = Negative Negative 3838103844) THC (test code = Presumptive Positive Negative A 2997128850) DIEGO (test code = DIEGO) Urine Drug [...] testing). Lab Interpretation (test Abnormal code = 90396-4) [facility] DRUG (IMMUNOASSAY) - COMPREHENSIVE DRUG SCREEN W/O [id number] 20:20:42 Test Item Value Reference Range Interpretation Comments AMPHET (test code = Negative Negative 8391963044) NASEEM U (test code = Negative Negative 9252375892) BENZO U (test code = Negative Negative 3674391942) Cocaine Metabolite (test Negative Negative code = 2865162280) METHADONE (test code = Negative Negative 5843161856) OPIATES (test code = Negative Negative 9125202764) PCP (test code = Negative Negative 2070856207) THC (test code = Presumptive Positive Negative A 6216568215) DIEGO (test code = DIEGO) Urine Drug [...] testing). Lab Interpretation (test Abnormal code = 48222-7) [facility] [id number] 20:17:29 Test Item Value Reference Range Interpretation Comments ESR (test code = See_Comment [Automated message] 7175743613) The system Sticky generated this result transmitted ref erence range: 0 - 20 m m/HR. The reference r dinora was not used to interpret this result as normal/abnor mal. Lab Interpretation (test Normal code = 52739-7) [facility] [id number] 20:17:29 Test Item Value Reference Range Interpretation Comments ESR (test code = See_Comment [Automated message] 3450906352) The system Sticky generated this result transmitted ref erence range: 0 - 20 m m/HR. The reference r dinora was not used to interpret this result as normal/abnor mal. Lab Interpretation (test Normal code = 56853-0) [facility] [id number] 20:14:11 Test Item Value Reference Range Interpretation Comments TSH (test code = See_Comment [Automated message] 8505970269) The system Sticky generated this result transmitted ref erence range: 0.45 - 4 .70 mIU/L. The refe rence range was not u sed to interpret this result as normal/abnor mal. Lab Interpretation (test Normal code = 36986-8) [facility] [id number] 20:14:11 Test Item Value Reference Range Interpretation Comments TSH (test code = See_Comment [Automated message] 6946048807) The system Sticky generated this result transmitted ref erence range: 0.45 - 4 .70 mIU/L. The refe rence range was not u sed to interpret this result as normal/abnor mal. Lab Interpretation (test Normal code = 65878-5) [facility] [id number] 20:03:34 Test Item Value Reference Range Interpretation Comments NT-proBNP (test code 42 pg/mL See_Comment [Autom ated = 0040861531) message] The system which generated this result transmitted reference range : <=125. The reference range was not used to interpret this result as normal/abnormal . DIEGO (test code = DIEGO) Biotin has been reported to cause a negative bias, interpret results relative to patient's use of biotin. Lab Interpretation Normal (test code = 75875-6) [facility] [id number] 20:03:34 Test Item Value Reference Range Interpretation Comments NT-proBNP (test code 42 pg/mL See_Comment [Autom ated = 5967311436) message] The system which generated this result transmitted reference range : <=125. The reference range was not used to interpret this result as normal/abnormal . DIEGO (test code = IDEGO) Biotin has been reported to cause a negative bias, interpret results relative to patient's use of biotin. Lab Interpretation Normal (test code = 58577-0) [facility] WITH [id number] 19:45:17 Test Item Value Reference Range Interpretation Comments WBC (test code = See_Comment H [Automated 5990-2) message] The sy stem which generated this result transmitted reference range : 4.30 - 11.10 10*3/?L. The reference range was not used to interpret this result as normal/abnormal . RBC (test code = See_Comment [Automated 519-8) message] The sy stem which generated this [...] RDW-SD (test code = 43.4 fL 39.0-49.9 69234-3) RDW-CV (test code = 12.5 % 12.0-15.5 788-0) PLT (test code = See_Comment H [Automated 777-3) message] The sy stem which generated this result transmitted reference range : 166 - 358 10*3/ ?L. The reference r dinora was not used to interpret this result as normal/abnormal . MPV (test code = 10.1 fL 9.5-12.9 62299-4) NRBC/100 WBC (test See_Comment [Automat ed code = 0542069874) message] The system which generated this result transmitted reference range : 0.0 - 10.0 /100 WBCs. The refer ence range was not u sed to interpret th is result as normal/abnormal . NRBC x10^3 (test code <0.01 See_Comment [Auto mated = 8009048458) message] The s ystem which generated this result transmitted reference range : 10*3/?L. The reference range was not used to interpret this result as normal/abnormal . GRAN MAT (NEUT) % 60.0 % (test code = 770-8) IMM GRAN % (test code 0.80 % = 5847229533) LYMPH % (test code = 31.1 % 736-9) MONO % (test code = 5.5 % 5905-5) EOS % (test code = 2.0 % 713-8) BASO % (test code = 0.6 % 706-2) GRAN MAT x10^3(ANC) 7.94 10*3/uL 1.88-7.09 H (test code = 0793039589) IMM GRAN x10^3 (test 0.11 10*3/uL 0.00-0.06 H code = 6733916092) LYMPH x10^3 (test code 4.13 10*3/uL 1.32-3.29 H = 731-0) MONO x10^3 (test code 0.73 10*3/uL 0.33-0.92 = 742-7) EOS x10^3 (test code = 0.27 10*3/uL 0.03-0.39 711-2) BASO x10^3 (test code 0.08 10*3/uL 0.01-0.07 H = 704-7) Lab Interpretation Abnormal (test code = 74114-2) [facility] WITH [id number] 19:45:17 Test Item Value Reference Range Interpretation Comments WBC (test code = See_Comment H [Automated 4290-2) message] The sy stem which generated this result transmitted reference range : 4.30 - 11.10 10*3/?L. The reference range was not used to interpret this result as normal/abnormal . RBC (test code = See_Comment [Automated 539-8) message] The sy stem which generated this [...] RDW-SD (test code = 43.4 fL 39.0-49.9 14286-3) RDW-CV (test code = 12.5 % 12.0-15.5 788-0) PLT (test code = See_Comment H [Automated 777-3) message] The sy stem which generated this result transmitted reference range : 166 - 358 10*3/ ?L. The reference r dinora was not used to interpret this result as normal/abnormal . MPV (test code = 10.1 fL 9.5-12.9 90586-7) NRBC/100 WBC (test See_Comment [Automat ed code = 0353964512) message] The system which generated this result transmitted reference range : 0.0 - 10.0 /100 WBCs. The refer ence range was not u sed to interpret th is result as normal/abnormal . NRBC x10^3 (test code <0.01 See_Comment [Auto mated = 6350993775) message] The s ystem which generated this result transmitted reference range : 10*3/?L. The reference range was not used to interpret this result as normal/abnormal . GRAN MAT (NEUT) % 60.0 % (test code = 770-8) IMM GRAN % (test code 0.80 % = 7081231030) LYMPH % (test code = 31.1 % 736-9) MONO % (test code = 5.5 % 5905-5) EOS % (test code = 2.0 % 713-8) BASO % (test code = 0.6 % 706-2) GRAN MAT x10^3(ANC) 7.94 10*3/uL 1.88-7.09 H (test code = 1686189257) IMM GRAN x10^3 (test 0.11 10*3/uL 0.00-0.06 H code = 9365339745) LYMPH x10^3 (test code 4.13 10*3/uL 1.32-3.29 H = 731-0) MONO x10^3 (test code 0.73 10*3/uL 0.33-0.92 = 742-7) EOS x10^3 (test code = 0.27 10*3/uL 0.03-0.39 711-2) BASO x10^3 (test code 0.08 10*3/uL 0.01-0.07 H = 704-7) Lab Interpretation Abnormal (test code = 79636-5) [facility] NOW RAPID TESTING)2021-04-26 19:33:11 Test Item Value Reference Range Interpretation Comments SARS-CoV-2 Rapid ID NOW Not Detected Not Detected (test code = 57990-7) DIEGO (test code = DIEGO) ID NOW COVID-19 Assay is an isothermal nucleic acid amplification test intended for the qualitative detection of nucleic acid from SARS-CoV-2 viral RNA in nasopharyngeal (DEGREASING SOLUTION RECLAIMER) specimens. It is used under Emergency Use [...] indicated. Lab Interpretation Normal (test code = 85666-5) [facility] NOW RAPID TEST[facility])2021-04-26 19:33:11 Test Item Value Reference Range Interpretation Comments SARS-CoV-2 Rapid ID NOW Not Detected Not Detected (test code = 10108-0) DIEGO (test code = DIEGO) ID NOW COVID-19 Assay is an isothermal nucleic acid amplification test intended for the qualitative detection of nucleic acid from SARS-CoV-2 viral RNA in nasopharyngeal (DEGREASING SOLUTION RECLAIMER) specimens. It is used under Emergency Use [...] indicated. Lab Interpretation Normal (test code = 88229-7) [facility] [id number] 19:30:19 1. ?No acute intracranial abnormality. ? [...] reviewed this study and agree with the abovereport.[facility] WO [id number] 19:30:19 1. ?No acute intracranial abnormality. ? [...] reviewed this study and agree with the abovereport.[facility] CONTRAST 2021-04-26 19:30:19 1. ?No [...] reviewed this study and agree with the abovereport.[facility] WO [id number] 19:30:19 1. ?No acute intracranial abnormality. ? [...] reviewed this study and agree with the abovereport.[facility] 19:29:14 Test Item Value Reference Range Interpretation Comments APPEARANCE (test code = Clear Clear 1334767214) COLOR (test code = Yellow Yellow 1499460117) PH (test code = 4.8-8.0 4216308271) SP GRAVITY (test code = 1.003-1.030 4035558981) GLU U QUAL (test code = Normal Normal 5715638487) BLOOD (test code = Negative Negative 5900752394) KETONES (test code = Negative Negative 3831367568) PROTEIN (test code = Negative Negative 2887-8) UROBILIN (test code = Normal Normal 4927088957) BILIRUBIN (test code = Negative Negative 6321839898) NITRITE (test code = Negative Negative 9609541420) LEUK DAKSHA (test code = Negative Negative 1126406022) RBC/HPF (test code = See_Comment [Autom ated message] 2154853000) The system Sticky generated this result transmitted ref erence range: 0 - 3 HP F. The reference range was not used to int erpret this result as normal/abnormal . WBC/HPF (test code = See_Comment [Autom ated message] 1827936338) The system Sticky generated this result transmitted ref erence range: 0 - 5 HP F. The reference range was not used to int erpret this result as normal/abnormal . BACTERIA (test code = Few Negative A 9312201096) SQ EPITH (test code = HPF 8540117633) Lab Interpretation (test Abnormal code = 15352-4) [facility] Test Item Value Reference Range Interpretation Comments APPEARANCE (test code = Clear Clear 1911759113) COLOR (test code = Yellow Yellow 4896429606) PH (test code = 4.8-8.0 7586367918) SP GRAVITY (test code = 1.003-1.030 1704510456) GLU U QUAL (test code = Normal Normal 6746688981) BLOOD (test code = Negative Negative 3945445102) KETONES (test code = Negative Negative 2582586538) PROTEIN (test code = Negative Negative 2887-8) UROBILIN (test code = Normal Normal 2443798472) BILIRUBIN (test code = Negative Negative 8457944451) NITRITE (test code = Negative Negative 3752968379) LEUK DAKSHA (test code = Negative Negative 3302549796) RBC/HPF (test code = See_Comment [Autom ated message] 3385388896) The system Sticky generated this result transmitted ref erence range: 0 - 3 HP F. The reference range was not used to int erpret this result as normal/abnormal . WBC/HPF (test code = See_Comment [Autom ated message] 4145880394) The system Sticky generated this result transmitted ref erence range: 0 - 5 HP F. The reference range was not used to int erpret this result as normal/abnormal . BACTERIA (test code = Few Negative A 6320475282) SQ EPITH (test code = HPF 0944442852) Lab Interpretation (test Abnormal code = 69861-4) [facility] [id number] 18:24:00 Test Item Value Reference Range Interpretation Comments POCT PREG (test code = 1605) negative On board controls acceptable with present C Line (test code = 3574) POCT PREG LOT # (test code = 3575) [id number] POCT PREG TEST DATE (test 08/20/2022 code = 3576) Lab Interpretation (test code = Normal 51873-2) [facility] [id number] 18:24:00 Test Item Value Reference Range Interpretation Comments POCT PREG (test code = 1605) negative On board controls acceptable with present C Line (test code = 3574) POCT PREG LOT # (test code = 3575) [id number] POCT PREG TEST DATE (test 08/20/2022 code = 3576) Lab Interpretation (test code = Normal 02489-3) [facility]10 Test Item Value Reference Range Interpretation Comments APPEARANCE (test code = Clear Clear 6914108359) COLOR (test code = Yellow Yellow 5396157940) PH (test code = 4.8-8.0 3780271797) SP GRAVITY (test code = 1.003-1.030 3381364082) GLU U QUAL (test code = Normal Normal 7168732298) BLOOD (test code = 1+ Negative A 2867589171) KETONES (test code = Negative Negative 8377672384) PROTEIN (test code = Negative Negative 2887-8) UROBILIN (test code = Normal Normal 5637276369) BILIRUBIN (test code = Negative Negative 5707243081) NITRITE (test code = Negative Negative 8637486842) LEUK DAKSHA (test code = 75/uL Negative A 7119400819) RBC/HPF (test code = See_Comment H [Autom ated message] 5241016147) The system Sticky generated this result transmitted ref erence range: 0 - 3 HP F. The reference range was not used to int erpret this result as normal/abnormal . WBC/HPF (test code = See_Comment H [Autom ated message] 2189017795) The system Sticky generated this result transmitted ref erence range: 0 - 5 HP F. The reference range was not used to int erpret this result as normal/abnormal . BACTERIA (test code = Few Negative A 0849109092) SQ EPITH (test code = HPF 2184086454) Lab Interpretation (test Abnormal code = 55572-2) [id number] 00:20:00 Test Item Value Reference Range Interpretation Comments POCT PREG (test code = 1605) negative On board controls acceptable with present C Line (test code = 3574) POCT PREG LOT # (test code = 3575) [id number] POCT PREG TEST DATE (test code = 3576) Lab Interpretation (test code = Normal 17026-7) [facility] STREP SCREEN FOR GROUP [id number] 17:29:00 Test Item Value Reference Range Interpretation Comments Streptococcus pyogenes (group A) Negative Negative antigen (test code = 77747-9) Lab Interpretation (test code = Normal 66011-1) [facility]. METABOLIC PANEL (59314)2020-04-29 17:27:00 Test Item Value Reference Range Interpretation Comments NA (test code = 137 mmol/L 135-145 4259640407) K (test code = 4.7 mmol/L 3.5-5 9774007268) CL (test code = 103 mmol/L 98-108 2265846926) CO2 TOTAL (test code = 23 mmol/L 23-31 6616998018) AGAP (test code = 2-16 5553020799) BUN (test code = 5 mg/dL 7-23 L 9735866091) GLUCOSE (test code = 93 mg/dL 70-110 9813268939) CREATININE (test code = 0.61 mg/dL 0.5-1.04 9272799763) TOTAL BILI (test code = 0.3 mg/dL 0.1-1.6 2786437728) CALCIUM (test code = 9.9 mg/dL 8.6-10.6 7784050154) T PROTEIN (test code = 7.5 g/dL 6.3-8.2 3704111131) ALBUMIN (test code = 4.3 g/dL 3.5-5 7562675279) ALK PHOS (test code = 82 U/L 34-122 0979494348) ALTv (test code = 23 U/L 5-35 1742-6) AST(SGOT) (test code = 36 U/L 13-40 8351346023) eGFR Calculation mL/min/1.73m2 (Non-) (test code = 8643383039) eGFR Calculation mL/min/1.73m2 () (test code = 3734434932) DIEGO (test code = DIEGO) Association of [...] tests). Lab Interpretation Abnormal (test code = 37380-7) [facility] [id number] 17:09:41 No radiographic evidence of osteomyelitis. Preliminary [...] reviewed this study and agree with theabove report.[facility] WITH [id number] 17:07:00 Test Item Value Reference Range Interpretation Comments WBC (test code = See_Comment H [Automated 5690-2) message] The sy stem which generated this result transmitted reference range : 4.30 - 11.10 10*3/?L. The reference range was not used to interpret this result as normal/abnormal . RBC (test code = See_Comment [Automated 789-8) message] The sy stem which generated this [...] RDW-SD (test code = 44.5 fL 39-49.9 58593-2) RDW-CV (test code = 13.1 % 12-15.5 788-0) PLT (test code = See_Comment H [Automated 777-3) message] The sy stem which generated this result transmitted reference range : 166 - 358 10*3/ ?L. The reference r dinora was not used to interpret this result as normal/abnormal . MPV (test code = 9.6 fL 9.5-12.9 81773-2) NRBC/100 WBC (test See_Comment [Automat ed code = 0468610999) message] The system which generated this result transmitted reference range : 0.0 - 10.0 /100 WBCs. The refer ence range was not u sed to interpret th is result as normal/abnormal . NRBC x10^3 (test code <0.01 See_Comment [Auto mated = 8251893575) message] The s ystem which generated this result transmitted reference range : 10*3/?L. The reference range was not used to interpret this result as normal/abnormal . GRAN MAT (NEUT) % 59.4 % (test code = 770-8) IMM GRAN % (test code 0.70 % = 6758981240) LYMPH % (test code = 31.3 % 736-9) MONO % (test code = 5.8 % 5905-5) EOS % (test code = 2.0 % 713-8) BASO % (test code = 0.8 % 706-2) GRAN MAT x10^3(ANC) 7.54 10*3/uL 1.88-7.09 H (test code = 1966495955) IMM GRAN x10^3 (test 0.09 10*3/uL 0-0.06 H code = 6420226159) LYMPH x10^3 (test code 3.98 10*3/uL 1.32-3.29 H = 731-0) MONO x10^3 (test code 0.74 10*3/uL 0.33-0.92 = 742-7) EOS x10^3 (test code = 0.25 10*3/uL 0.03-0.39 711-2) BASO x10^3 (test code 0.10 10*3/uL 0.01-0.07 H = 704-7) Lab Interpretation Abnormal (test code = 26551-5) [facility] [id number] 16:24:00 Test Item Value Reference Range Interpretation Comments POCT PREG (test code = 1605) negative POCT PREG LOT # (test code = 3575) [id number] POCT PREG TEST DATE (test 03/20/2021 code = 3576) Lab Interpretation (test code = Normal 81959-9) [facility] [id number] 04:24:00 Test Item Value Reference Range Interpretation Comments POCT PREG (test code = 1605) negative On board controls acceptable with yes C Line (test code = 3574) POCT PREG LOT # (test code = 3575) [id number] POCT PREG TEST DATE (test 08/20/2020 code = 3576) Lab Interpretation (test code = Normal 95430-5) [facility] [id number] 13:26:00 Test Item Value Reference Range Interpretation Comments HEMOGLOBIN A1C (BEAKER) (test code = 5.2 % 4.3-6.1 368) CBC W/PLT COUNT & AUTO [id number] 09:42:00 Test Item Value Reference Range Interpretation [...] MORPHOLOGY (BEAKER) (test code Normal = 762) [id number] 07:11:00 Test Item Value Reference Range Interpretation Comments MAGNESIUM (BEAKER) (test code = 1.5 mg/dL 1.6-2.6 L 627) BASIC METABOLIC [id number] 07:11:00 Test Item Value Reference Range Interpretation [...] NOT APPLICABLE FOR DIALYSIS PATIEN TS. LIPID [id number] 07:11:00 Test Item Value Reference Range Interpretation [...] Borderline 130-159 High 160-189 Very High >=190TROPONIN [id number] 06:34:00 Test Item Value Reference Range Interpretation [...] acidosis, acute neurological disease, and persistent tachyarrhythmia.TROPONIN [id number] 23:58:00 Test Item Value Reference Range Interpretation [...]
--- NOTE | 2021-08-21 15:38 | ER ---
Nurse's Notes [facility] Name: Natasha Spann Age: 36 yrs Sex: Female : 1985 Arrival Date: 08/21/2021 Time: 14:15 Bed Waiting Private MD: Diagnosis: Assessment: 08/21 15:36 Reassessment: pt not in lobby. iw ED Course: 14:15 Patient arrived in ED. ds1 Administered Medications: No medications were administered Outcome: 15:38 Patient left the ED. iw Signatures: Kaci Ngo ds1 Anastasia Patel, RN RN iw
== END 2021-08-21 15:38 | disposition left against medical advice (07) ==
LOC: ER 14:14
DX: Z02.89 Encounter for other administrative examinations (principal)

== ENCOUNTER 2021-10-08 07:17 | Emergency (ER) | payer SELFPAY ==
--- OUTSIDE RECORDS SUMMARY | 2021-10-08 07:24 | XMS REPORT | Continuity of Care Document ---
:1985 Author Organization [facility] t Address [address] [place] [address] Care Team Providers Name Role Phone Freddy ARANGO Primary Care Physician Reid BAKER Attending Clinician Unavailable Reid Baker NP Attending Clinician Doctor Unassigned, Name Attending Clinician Unavailable MAURER, S Attending Clinician Unavailable Maurer PAC, S Attending Clinician Geeta ALDANA Attending Clinician Unavailable Geeta Murphy Attending Clinician Yovanny ARRIETA Attending Clinician Singer ANGEL Attending Clinician Lotus MCGUIRE R Attending Clinician Concepcion DE LEON Attending Clinician Maribel Plasencia Attending Clinician BINTA FOLEY Attending Clinician Unavailable MAURER, S Admitting Clinician Unavailable Geeta ALDANA Admitting Clinician Unavailable BINTA FOLEY Admitting Clinician Unavailable Payers Payer Name Policy Type Policy Number Effective Date Expiration Date [id number] WOMEN 00:00:00 MEDICAID SSI PENDING 2021 PENDING 00:00:00 Advance Directives Directive Decision Effective Termination Comments Source Date Date Healthcare Agents on N/A Univ ersity FileNameRelationshipHealthcare [facility] Agent Medical RelationshipCommunicationCandy Branch [facility] Care [phone] (Mobile) Problems Condition Condition Condition Status Onset Resolution Last Treating Co mments Source Name Details Category Date Date Treatment Clinician Date Migraine Migraine Disease Active Unive rs without without 5-25 ity of status status 00:00: [place] migrainosu [...] pain Disease Active 2016-[address] [facility] Pelvic Pelvic Disease Active Raghu pain in pain in 8-19 Health female [...] Active Swelling Anette is ine ty to 827 Health adverse 00:00: reaction 00 s to drug Levoflox Propensi Active Other Joint Krishnamurthy acin ty to 8 Pain Health adverse 00:00: reaction 00 s to drug Bupropio Propensi Active Other Gets Krishnamurthy n Hcl ty to 8 homicidal Health adverse 00:00: reaction 00 s to drug Family History Family Member Diagnosis Comments Start Date Stop Date Source Maternal grandmother Coronary artery [facility] Natural mother Coronary [facility] Maternal aunt Coronary artery [facility] Natural brother Diabetes Raghu He alth Social History Social Habit Start Date Stop Date Quantity Comments Source History of tobacco 1992-02-15 Cigarette Smoker University of use 00:00:00 [facility] Exposure to Not sure University of SARS-CoV-2 (event) [facility] Alcohol intake 2021-09-16 2021-09-16 0 /d University of 00:00:00 00:00:00 [facility] Cigarettes smoked 2018-02-14 2018-02-14 Univers ity of current (pack per 00:00:00 00:00:00 ) - Reported Branch Tobacco use and 2018-02-14 2018-02-14 Never used Universit y of exposure 00:00:00 00:00:00 [facility] Cigarette 2015-04-20 2015-04-20 [facility] pack-years 00:00:00 00:00:00 Alcohol Comment 2015-04-16 2015-04-16 last drink Raghu Thompson alth 00:00:00 00:00:00 02/2015 [birth year] Universit y of 00:00:00 00:00:00 [facility] Smoking Status Start Date Stop Date Source Current every day smoker 2018-02-14 00:00:[address] [facility] Medications Ordered Filled Start Stop Current Ordering Indication Dosage Frequency Signature Comments Components Source Medication Medication Date Date Medication? Clinician (SIG) Name Name HYDROcodone 2021- No 1{tbl} 1 tablet, Univers -acetaminop 1-28 09-17 Oral, ity of hen (NORCO) 05:15: 04:19 [place] 10-325 mg 00 :00 dose, On Medica l tablet 1 Cathy Branch tablet 09/16/21 at 2315, Routine acetaminoph 2021-0 Yes [id number] 1{tbl} Take 1 Un tracee en-codeine 1-28 tablet by ity of 300-30 mg 00:00: mouth [place] tablet 00 every 4 Medical (four) Branch hours as needed for Pain (scale 4-6). Indication s: acute pain acetaminoph 0 Yes [id number] 1{tbl} Take 1 Un tracee en-codeine 1-28 tablet by ity of 300-30 mg 00:00: mouth [place] tablet 00 every 4 Medical (four) Branch hours as needed for Pain (scale 4-6). Indication s: acute pain acetaminoph 2021-0 Yes [id number] 1{tbl} Take 1 Un tracee en-codeine 1-28 tablet by ity of 300-30 mg 00:00: mouth [place] tablet 00 every 4 Medical (four) Branch hours as needed for Pain (scale 4-6). Indication s: acute pain cefTRIAXone 2021- No 500mg 500 mg, U nivers (ROCEPHIN) 09-15 Intramuscu it y of injection 21:30: 20:35 lar, ONCE, [place] 500 mg 00 :00 1 dose, On Medical Wed Branch 09/15/21 at 1530, PUSHPA
Re ason for Anti-Infec tive: Empiric Therapy for Suspected Infection< br>Empiric Therapy Site: Pelvic
Duration of therapy: 72 hours ketorolac 2021- No 15mg 15 mg, Unive rs (TORADOL) 09-15 Slow IV ity of injection 21:15: 20:26 Push, [place] 15 mg 00 :00 ONCE, 1 Medical dose, On Branch 09/15/21 at 1515, PUSHPA iopamidol 2021- No [id number] 100mL 100 mL, Univers (ISOVUE 09-15 Intravenou ity o f 370-500 mL) 21:00: 19:48 s, ONCE, 1 [place] injection 00 :00 dose, On Medica l 100 mL Wed Branch 09/15/21 at 1500, Routine ondansetron 2021- No 4mg 4 mg, Slow Univers (ZOFRAN 09-15 IV Push, ity of (PF)) 20:15: 19:21 ONCE, 1 [place] injection 4 00 :00 dose, On Medi mary ann mg Wed Branch 09/15/21 at 1415, PUSHPA morpHINE 2021- No 4mg 4 mg, Slow Un tracee injection 4 09-15 IV Push, ity of mg 20:15: 19:21 ONCE, 1 [place] 00 :00 dose, On Medical Wed Branch 09/15/21 at 1415, STAT NaCl 0.9% 2021- No 1000mL at 999 Uni vers (NS) bolus 09-15 mL/hr, ity of infusion 19:45: 19:59 1,000 mL, [place] 1,000 mL 00 :00 IV Medical Infusion, Branch ONCE, 1 dose, On 09/15/21 at 1345, PUSHPA doxycycline 2021- Yes [id number] 100mg Take 1 Univers monohydrate 09-1510 capsule by i ty of 100 mg 00:00: 05:59 mouth 2 [place] capsule 00 :00 (two) Medical times Branch daily for 14 days. metroNIDAZO 2021- Yes [id number] 500mg Take 1 Univers LE 500 mg 09-1510 tablet by ity of tablet 00:00: 05:59 mouth 2 [place] 00 :00 (two) Medical times Branch daily for 14 days. doxycycline 2021- Yes [id number] 100mg Take 1 Univers monohydrate 09-1510 capsule by i ty of 100 mg 00:00: 05:59 mouth 2 [place] capsule 00 :00 (two) Medical times Branch daily for 14 days. metroNIDAZO 2021- Yes [id number] 500mg Take 1 Univers LE 500 mg 09-1510 tablet by ity of tablet 00:00: 05:59 mouth 2 [place] 00 :00 (two) Medical times Branch daily for 14 days. ketorolac 2021- No 30mg 30 mg, Unive rs (TORADOL) 08-22 Slow IV ity of injection 00:15: 23:13 Push, [place] 30 mg 00 :00 ONCE, 1 Medical dose, On Branch 08/21/21 at 1815, PUSHPA
Fa culty member approving Restricted medication : KATHERIN MAURER diazePAM 2021- No 2mg 2 mg, Slow Un tracee (VALIUM) 08-21 IV Push, ity of injection 2 23:30: 22:52 ONCE, 1 [place] mg 00 :00 dose, On Medical 08/21/21 Branch at 1730, STAT diphenhydrA 2021- No 25mg 25 mg, Uni vers MINE 08-21 Slow IV ity of (BENADRYL) 23:30: 22:45 Push, [place] injection 00 :00 ONCE, 1 Medical 25 mg dose, On Branch 08/21/21 at 1730, STAT metoclopram 2021- No 10mg 10 mg, Uni vers arianne HCl 08-21 Slow IV ity of (REGLAN) 23:30: 22:49 Push, [place] injection 00 :00 ONCE, 1 Medical 10 mg dose, On Branch 08/21/21 at 1730, PUSHPA NaCl 0.9% 2021-0 2021- No 1000mL at 999 Uni vers (NS) bolus 08-21 01-01 mL/hr, ity of infusion 23:30: 23:45 1,000 mL, [place] 1,000 mL 00 :00 IV Medical Infusion, Branch ONCE, 1 dose, On 08/21/21 at 1730, STAT ondansetron 2021-0 Yes [id number] 4mg Take 1 Univers (ZOFRAN 1-01 tablet by ity of ODT) 4 mg 00:00: mouth [place] disintegrat 00 every 8 Medic al ing tablet (eight) Branch hours as needed for Nausea and Vomiting (N/V). ketorolac 2021-0 Yes [id number] 10mg Take 1 U nivers 10 mg 1-01 tablet by ity of tablet 00:00: mouth [place] 00 every 6 Medical (six) Branch hours as needed for Pain (scale 4-6). methocarbam 2021-0 Yes [id number] 500mg Take 1 Univers oL 500 mg 1-01 tablet by ity o f tablet 00:00: mouth 4 [place] 00 (four) Medical times Branch daily as needed for Pain (scale 4-6). ondansetron 2021-0 Yes [id number] 4mg Take 1 Univers (ZOFRAN 1-01 tablet by ity of ODT) 4 mg 00:00: mouth [place] disintegrat 00 every 8 Medic al ing tablet (eight) Branch hours as needed for Nausea and Vomiting (N/V). ketorolac 2-0 Yes [id number] 10mg Take 1 U nivers 10 mg 1-01 tablet by ity of tablet 00:00: mouth [place] 00 every 6 Medical (six) Branch hours as needed for Pain (scale 4-6). methocarbam 2022-0 Yes [id number] 500mg Take 1 Univers oL 500 mg 1-01 tablet by ity o f tablet 00:00: mouth 4 [place] 00 (four) Medical times Branch daily as needed for Pain (scale 4-6). ondansetron 2-0 Yes [id number] 4mg Take 1 Univers (ZOFRAN 1-01 tablet by ity of ODT) 4 mg 00:00: mouth [place] disintegrat 00 every 8 Medic al ing tablet (eight) Branch hours as needed for Nausea and Vomiting (N/V). ketorolac 2022-0 Yes [id number] 10mg Take 1 U nivers 10 mg 1-01 tablet by ity of tablet 00:00: mouth [place] 00 every 6 Medical (six) Branch hours as needed for Pain (scale 4-6). methocarbam 2022-0 Yes [id number] 500mg Take 1 Univers oL 500 mg 1-01 tablet by ity o f tablet 00:00: mouth 4 [place] 00 (four) Medical times Branch daily as needed for Pain (scale 4-6). ondansetron 2022-0 Yes [id number] 4mg Take 1 Univers (ZOFRAN 1-01 tablet by ity of ODT) 4 mg 00:00: mouth [place] disintegrat 00 every 8 Medic al ing tablet (eight) Branch hours as needed for Nausea and Vomiting (N/V). ketorolac 2022-0 Yes [id number] 10mg Take 1 U nivers 10 mg 1-01 tablet by ity of tablet 00:00: mouth [place] 00 every 6 Medical (six) Branch hours as needed for Pain (scale 4-6). methocarbam 2022-0 Yes [id number] 500mg Take 1 Univers oL 500 mg 1-01 tablet by ity o f tablet 00:00: mouth 4 [place] 00 (four) Medical times Branch daily as needed for Pain (scale 4-6). ondansetron 2022-0 Yes [id number] 4mg Take 1 Univers (ZOFRAN 1-01 tablet by ity of ODT) 4 mg 00:00: mouth [place] disintegrat 00 every 8 Medic al ing tablet (eight) Branch hours as needed for Nausea and Vomiting (N/V). ketorolac 2022-0 Yes [id number] 10mg Take 1 U nivers 10 mg 1-01 tablet by ity of tablet 00:00: mouth [place] 00 every 6 Medical (six) Branch hours as needed for Pain (scale 4-6). methocarbam 2022-0 Yes [id number] 500mg Take 1 Univers oL 500 mg 1-01 tablet by ity o f tablet 00:00: mouth 4 [place] 00 (four) Medical times Branch daily as needed for Pain (scale 4-6). ketorolac 2021-0 2021- No 30mg 30 mg, Unive rs (TORADOL) 04-26 Slow IV ity of injection 22:00: 20:57 Push, [place] 30 mg 00 :00 ONCE, 1 Medical dose, [facility] 04/26/21 at 1700, Routine
outreach team member approving Restricted medication : BLAYNE HAIRSTON ketorolac 2020- No 30mg 30 mg, Unive rs (TORADOL) 04-26 Slow IV ity of injection 22:00: 20:57 Push, [place] 30 mg 00 :00 ONCE, 1 Medical dose, [facility] 04/26/21 at 1700, Routine
outreach team member approving Restricted medication : HAIRSTON BLAYNE morpHINE 2020- No 4mg 4 mg, Slow Un tracee injection 4 04-26 IV Push, ity of mg 20:30: 19:28 ONCE, 1 [place] 00 :00 dose, [facility] 04/26/21 at Branch 1530, STAT morpHINE No 4mg 4 mg, Slow Un tracee injection 4 04-26 IV Push, ity of mg 20:30: 19:28 ONCE, 1 [place] 00 :00 dose, [facility] Medical 04/26/21 at Branch 1530, STAT ondansetron 2020- [...] IV Medical Infusion, Branch ONCE, 1 dose, [facility] 04/26/21 at 1330, STAT NaCl 0.9% No 1000mL at 999 Uni vers (NS) bolus 04-26 mL/hr, ity of infusion 18:30: 20:00 1,000 mL, [place] 1,000 mL 00 :00 IV Medical Infusion, Branch ONCE, 1 dose, [facility] 04/26/21 at 1330, STAT clonazePAM 2020- No [id number] 1mg Take 1 Univers (KLONOPIN) 04-17 tablet by ity of 1 mg tablet 00:00: 04:59 mouth 3 [place] 00 :00 (three) Medical times Branch daily for 5 days. clonazePAM 2020- No [id number] 1mg Take 1 Univers (KLONOPIN) 04-17 tablet by ity of 1 mg tablet 00:00: 04:59 mouth 3 [place] 00 :00 (three) Medical times Aladdin daily for 5 days. TOPIRAMATE 2020- No Take by Un tracee (TOPAMAX 04-12 mouth. ity of ORAL) 01:13: 00:00 [place] 52 :00 Medical Branch ARIPIPRAZOL 2020- No Take by U chetan E (ABILIFY 04-12 mouth. ity of ORAL) 01:13: 00:00 [place] 52 :00 Medical Branch FLUOXETINE 2020- No Take by Un tracee HCL (PROZAC 04-12 mouth. ity o f ORAL) 01:13: 00:00 [place] 52 :00 Medical Branch traMADoL 2019- No 50mg 50 mg, Univer s (ULTRAM) 04-29 Oral, ONCE ity of tablet 50 19:30: 18:35 NOW, 1 [place] mg 00 :00 dose, [facility] 04/29/20 at Branch 1430, Routine ketorolac 2019- No 15mg 15 mg, Unive rs (TORADOL) 04-29 Slow IV ity of injection 17:15: 16:31 Push, [place] 15 mg 00 :00 ONCE, 1 Medical dose, [facility] 04/29/20 at 1215, PUSHPA
Fa culty member [...] (scale 7-10). Indication s: acute pain clindamycin 2019- No [id number] 450mg Take 3 Univers 150 mg 04-29 capsules ity of capsule 00:00: 04:59 by mouth 3 [place] 00 :00 (three) Medical times Branch daily for 10 days. ketorolac 2018- No 60mg 60 mg, Unive rs (TORADOL) 03-19 Intramuscu ity of injection 05:45: 04:35 lar, ONCE, [place] 60 mg 00 :00 1 dose, Medical Tue Branch 03/19/19 at 0045, PUSHPA
Fa culty member approving Restricted medication : Vonda AGUILA ibuprofen Yes [id number] 600mg Take 1 U nivers 600 mg 7-29 tablet by ity of tablet 00:00: mouth [place] 00 every 6 Medical (six) Branch hours as needed for Pain (scale 4-6). ibuprofen Yes [id number] 600mg Take 1 U nivers 600 mg 7-29 tablet by ity of tablet 00:00: mouth [place] 00 every 6 Medical (six) Branch hours as needed for Pain (scale 4-6). ibuprofen Yes [id number] 600mg Take 1 U nivers 600 mg 7-29 tablet by ity of tablet 00:00: mouth [place] 00 every 6 Medical (six) Branch hours as needed for Pain (scale 4-6). ibuprofen Yes [id number] 600mg Take 1 U nivers 600 mg 7-29 tablet by ity of tablet 00:00: mouth [place] 00 every 6 Medical (six) Branch hours as needed for Pain (scale 4-6). ibuprofen 2020- No [id number] 600mg Take 1 Univers 600 mg 7-29 [...] HCL ORAL 4-26 mouth. ity of 18:29: [place] [address] Medical Branch DULOXETINE Yes Take by Uni vers HCL 4-26 mouth. ity of (CYMBALTA 18:29: [place] ORAL) Medical Branch ARIPIPRAZOL Yes Take by Un tracee E (ABILIFY 4-26 mouth. ity of ORAL) 18:29: [place] [address] Medical Branch TRAZODONE Yes Take by Univ ers HCL 4-26 mouth. ity of (TRAZODONE 18:29: [place] ORAL) Medical Branch PROPRANOLOL Yes Take by Un tracee HCL 4-26 mouth. ity of (PROPRANOLO 18:29: [place] L ORAL) Medical Branch HYDROXYZINE Yes Take by Un tracee HCL ORAL 4-26 mouth. ity of 18:29: [place] [address] Medical Branch DULOXETINE Yes Take by Uni vers HCL 4-26 mouth. ity of (CYMBALTA 18:29: [place] ORAL) Medical Branch ARIPIPRAZOL Yes Take by Un tracee E (ABILIFY 4-26 mouth. ity of ORAL) 18:29: [place] [address] Medical Branch TRAZODONE Yes Take by Univ ers HCL 4-26 mouth. ity of (TRAZODONE 18:29: [place] ORAL) Medical Branch PROPRANOLOL Yes Take by Un tracee HCL 4-26 mouth. ity of (PROPRANOLO 18:29: [place] L ORAL) Medical Branch HYDROXYZINE Yes Take by Un tracee HCL ORAL 4-26 mouth. ity of 18:29: [place] [address] Medical Branch DULOXETINE Yes Take by Uni vers HCL 4-26 mouth. ity of (CYMBALTA 18:29: [place] ORAL) 35 Medical Branch ARIPIPRAZOL Yes Take by Un tracee E (ABILIFY 4-26 mouth. ity of ORAL) 18:29: [place] [address] Medical Branch TRAZODONE Yes Take by Univ ers HCL 4-26 mouth. ity of (TRAZODONE 18:29: [place] ORAL) 35 Medical Branch PROPRANOLOL Yes Take by Un tracee HCL 4-26 mouth. ity of (PROPRANOLO 18:29: [place] L ORAL) 35 Medical Branch HYDROXYZINE Yes Take by Un tracee HCL ORAL 4-26 mouth. ity of 18:29: [place] [address] Medical Branch DULOXETINE Yes Take by Uni vers HCL 4-26 mouth. ity of (CYMBALTA 18:29: [place] ORAL) 35 Medical Branch ARIPIPRAZOL Yes Take by Un tracee E (ABILIFY 4-26 mouth. ity of ORAL) 18:29: [place] [address] Medical Branch TRAZODONE Yes Take by Univ ers HCL 4-26 mouth. ity of (TRAZODONE 18:29: [place] ORAL) 35 Medical Branch PROPRANOLOL Yes Take by Un tracee HCL 4-26 mouth. ity of (PROPRANOLO 18:29: [place] L ORAL) 35 Medical Branch HYDROXYZINE Yes Take by Un tracee HCL ORAL 4-26 mouth. ity of 18:29: [place] [address] Medical Branch DULOXETINE Yes Take by Uni [...] HCL ORAL 4-26 mouth. ity of 18:29: [place] [address] Medical Branch DULOXETINE Yes Take by Uni [...] of 18:29: [place] 35 Medical Branch DULOXETINE 0 Yes Take [...] 18:29: [place] ORAL) 35 Medical Branch TRAZODONE 0 Yes Take by [...] HCL ORAL 4-26 mouth. ity of 18:29: [place] [address] Medical Branch DULOXETINE Yes Take by Uni vers HCL 4-26 mouth. ity of (CYMBALTA 18:29: [place] ORAL) 35 Medical Branch TRAZODONE Yes Take by Univ ers HCL 4-26 mouth. ity of (TRAZODONE 13:29: [place] ORAL) 35 Medical Branch PROPRANOLOL Yes Take by Un tracee HCL 4-26 mouth. ity of (PROPRANOLO 13:29: [place] L ORAL) 35 Medical Branch HYDROXYZINE Yes Take by Un tracee HCL ORAL 4-26 mouth. ity of 13:29: [place] [address] Medical Branch DULOXETINE Yes Take by Uni vers HCL 4-26 mouth. ity of (CYMBALTA 13:29: [place] ORAL) 35 Medical Branch TRAZODONE Yes Take by Univ ers HCL 4-26 mouth. ity of (TRAZODONE 13:29: [place] ORAL) 35 Medical Branch PROPRANOLOL Yes Take by Un tracee HCL 4-26 mouth. ity of (PROPRANOLO 13:29: [place] L ORAL) 35 Medical Branch HYDROXYZINE Yes Take by Un tracee HCL ORAL 4-26 mouth. ity of 13:29: [place] [address] Medical Branch DULOXETINE Yes Take by Uni vers HCL 4-26 mouth. ity of (CYMBALTA 13:29: [place] ORAL) 35 Medical Branch TRAZODONE Yes Take by Univ ers HCL 4-26 mouth. ity of (TRAZODONE 13:29: [place] ORAL) 35 Medical Branch PROPRANOLOL Yes Take by Un tracee HCL 4-26 mouth. ity of (PROPRANOLO 13:29: [place] L ORAL) 35 Medical Branch HYDROXYZINE Yes Take by Un tracee HCL ORAL 4-26 mouth. ity of 13:29: [place] [address] Medical Branch DULOXETINE Yes Take by Uni vers HCL 4-26 mouth. ity of (CYMBALTA 13:29: [place] ORAL) 35 Medical Branch TRAZODONE Yes Take by Univ ers HCL 4-26 mouth. ity of (TRAZODONE 13:29: [place] ORAL) 35 Medical Branch PROPRANOLOL Yes Take by Un tracee HCL 4-26 mouth. ity of (PROPRANOLO 13:29: [place] L ORAL) 35 Medical Branch HYDROXYZINE Yes Take by Un tracee HCL ORAL - mouth. ity of 13:29: [place] [address] Medical Branch DULOXETINE Yes Take by Uni vers HCL - mouth. ity of (CYMBALTA 13:29: [place] ORAL) 35 Medical Branch TRAZODONE Yes Take by Univ ers HCL 4-26 mouth. ity of (TRAZODONE 13:29: [place] ORAL) 35 Medical Branch PROPRANOLOL Yes Take by Un tracee HCL 4-26 mouth. ity of (PROPRANOLO 13:29: [place] L ORAL) 35 Medical Branch HYDROXYZINE Yes Take by Un tracee HCL ORAL 4-26 mouth. ity of 13:29: [place] [address] Medical Branch DULOXETINE Yes Take by Uni vers HCL - mouth. ity of (CYMBALTA 13:29: [place] ORAL) 35 Medical Branch TRAZODONE Yes Take by Univ ers HCL 4-26 mouth. ity of (TRAZODONE 13:29: [place] ORAL) 35 Medical Branch PROPRANOLOL Yes Take by Un tracee HCL 4-26 mouth. ity of (PROPRANOLO 13:29: [place] L ORAL) 35 Medical Branch HYDROXYZINE Yes Take by Un tracee HCL ORAL 4-26 mouth. ity of 13:29: [place] [address] Medical Branch DULOXETINE Yes Take by Uni vers HCL 4-26 mouth. ity of (CYMBALTA 13:29: [place] ORAL) 35 Medical Branch Miscellaneo Yes [id number] [facility] 12-14 9104 EXTREMITY ity of Supply Misc 00:00: PROSTHES [place] 00 NOS, Left Medical bka, needs Branch new prosthesis and supplies Miscellaneo 2019-0 Yes [id number] [facility] 12-14 9104 EXTREMITY ity of Supply Misc 00:00: PROST[place]ES [place] 00 NOS, Left Medical bka, needs Branch new prosthesis and supplies Miscellaneo 2019-0 Yes [id number] [facility] 12-14 9104 EXTREMITY ity of Supply Misc 00:00: PROST[place]ES [place] 00 NOS, Left Medical bka, needs Branch new prosthesis and supplies Miscellaneo 2019-0 Yes [id number] [facility] 12-14 9104 EXTREMITY ity of Supply Misc 00:00: PROST[place]ES [place] 00 NOS, Left Medical bka, needs Branch new prosthesis and supplies Miscellaneo 2019-0 2021- No [id number] [facility] 12-14 9104 EXTREMITY ity of Supply Misc 00:00: 00:00 PROST[place]ES [place] 00 :00 NOS, Left Medical bka, needs Branch new prosthesis and supplies TOPIRAMATE 2019 Yes Take by Uni vers (TOPAMAX 4-19 mouth. ity of ORAL) 01:22: [address] TOPIRAMATE 2019- Yes Take by Uni vers (TOPAMAX 4-19 mouth. ity of ORAL) 01:22: [address] TOPIRAMATE Yes Take by Uni vers (TOPAMAX 4-19 mouth. ity of ORAL) 01:22: [address] TOPIRAMATE 2018- Yes Take by Uni vers (TOPAMAX 4-19 mouth. ity of ORAL) 01:22: [address] acetaminoph Yes [id number] 1{tbl} Take 1 Univers en-codeine 4-18 tablet by ity of (TYLENOL-CO 00:00: mouth [place] DEINE #3) 00 every 4 Medical 300-30 mg (four) Branch tablet hours as needed for Pain (scale 7-10). cephALEXin Yes [id number] 250mg Take 1 Univers (KEFLEX) 4-18 capsule by ity o f 250 mg 00:00: mouth [place] capsule 00 every 6 Medical (six) Branch hours. acetaminoph Yes [id number] 1{tbl} Take 1 Univers en-codeine 4-18 tablet by ity of (TYLENOL-CO 00:00: mouth [place] DEINE #3) 00 every 4 Medical 300-30 mg (four) Branch tablet hours as needed for Pain (scale 7-10). cephALEXin Yes [id number] 250mg Take 1 Univers (KEFLEX) 4-18 capsule by ity o f 250 mg 00:00: mouth [place] capsule 00 every 6 Medical (six) Branch hours. acetaminoph Yes [id number] 1{tbl} Take 1 Univers en-codeine 4-18 tablet by ity of (TYLENOL-CO 00:00: mouth [place] DEINE #3) 00 every 4 Medical 300-30 mg (four) Branch tablet hours as needed for Pain (scale 7-10). cephALEXin Yes [id number] 250mg Take 1 Univers (KEFLEX) 4-18 capsule by ity o f 250 mg 00:00: mouth [place] capsule 00 every 6 Medical (six) Branch hours. acetaminoph Yes [id number] 1{tbl} Take 1 Univers en-codeine 4-18 tablet by ity of (TYLENOL-CO 00:00: mouth [place] DEINE #3) 00 every 4 Medical 300-30 mg (four) Branch tablet hours as needed for Pain (scale 7-10). cephALEXin Yes [id number] 250mg Take 1 Univers (KEFLEX) 4-18 capsule by ity o f 250 mg 00:00: mouth [place] capsule 00 every 6 Medical (six) Branch hours. acetaminoph 2020- No [id number] 1{tbl} Take 1 Univers en-codeine 4-18 08-22 tablet by ity of (TYLENOL-CO 00:00: 00:00 [place] DEINE #3) 00 :00 every 4 Medical 300-30 mg (four) Branch tablet hours as needed for Pain (scale 7-10). cephALEXin 2020- No [id number] 250mg Take 1 Univers (KEFLEX) 4-18 08-22 capsule by ity of 250 mg 00:00: 00:00 mouth [place] capsule 00 :00 every 6 Medical (six) Branch hours. ibuprofen 2019- No [id number] 600mg Take 1 Univers 600 mg 3-11 - 3 tablet by ity of tablet 00:00: 00:00 mouth [place] 00 :00 every 6 Medical (six) Branch hours as needed for Pain (scale 4-6). sulfamethox 2019- Yes [id number] 1{tbl} Take 1 Univers azole-trime 2-12 tablet by ity of thoprim 00:00: mouth [place] 800-160 mg 00 every 12 Medic al per tablet (twelve) Branc h hours. sulfamethox 2018- Yes [id number] 1{tbl} Take 1 Univers azole-trime 2-12 tablet by ity of thoprim 00:00: mouth [place] 800-160 mg 00 every 12 Medic al per tablet (twelve) Branc h hours. sulfamethox 2018- Yes [id number] 1{tbl} Take 1 Univers azole-trime 2-12 tablet by ity of thoprim 00:00: mouth [place] 800-160 mg 00 every 12 Medic al per tablet (twelve) Branc h hours. sulfamethox 2018- Yes [id number] 1{tbl} Take 1 Univers azole-trime 2-12 tablet by ity of thoprim 00:00: mouth [place] 800-160 mg 00 every 12 Medic al per tablet (twelve) Branc h hours. sulfamethox 2018-1- No [id number] 1{tbl} Take 1 Univers azole-trime 2-12 - tablet by it y of thoprim 00:00: 00:00 mouth [place] 800-160 mg 00 :00 every 12 Medic al per tablet (twelve) Branc h hours. FLUOXETINE Yes Take by Uni vers HCL (PROZAC 6-27 mouth. ity of ORAL) 17:12: [address] FLUOXETINE 2017- Yes Take by Uni vers HCL (PROZAC 6-27 mouth. ity of ORAL) 17:12: [address] FLUOXETINE 2017- Yes Take by Uni vers HCL (PROZAC 6-27 mouth. ity of ORAL) 17:12: [address] FLUOXETINE 2017- Yes Take by Uni vers HCL (PROZAC 6-27 mouth. ity of ORAL) 17:12: [address] pantoprazol Yes [id number] 40mg Take 1 Univers e 6-27 tablet by ity of (PROTONIX) 00:00[place] mouth 2 [place] 40 [place] EC 00 (two) Medical tablet times Branch daily. fluticasone Yes [id number] 2{spray Use 2 Univers 50 6-27 } Sprays in ity of mcg/actuati 00:00: each [place] on nasal 00 nostril Medical spray daily. Branch pantoprazol Yes [id number] 40mg Take 1 Univers e 6-27 tablet by ity of (PROTONIX) 00:00: mouth 2 [place] 40 mg EC 00 (two) Medical tablet times Branch daily. fluticasone Yes [id number] 2{spray Use 2 Univers 50 6-27 } Sprays in ity of mcg/actuati 00:00: each [place] on nasal 00 nostril Medical spray daily. Branch pantoprazol Yes [id number] 40mg Take 1 Univers e 6-27 tablet by ity of (PROTONIX) 00:00: mouth 2 [place] 40 mg EC 00 (two) Medical tablet times Branch daily. fluticasone Yes [id number] 2{spray Use 2 Univers 50 6-27 } Sprays in ity of mcg/actuati 00:00: each [place] on nasal 00 nostril Medical spray daily. Branch pantoprazol Yes [id number] 40mg Take 1 Univers e 6-27 tablet by ity of (PROTONIX) 00:00: mouth 2 [place] 40 mg EC 00 (two) Medical tablet times Branch daily. fluticasone Yes [id number] 2{spray Use 2 Univers 50 6-27 } Sprays in ity of mcg/actuati 00:00: each [place] on nasal 00 nostril Medical spray daily. Branch pantoprazol 2020- No [id number] 40mg Take 1 Univers e 6-27 08-22 tablet by ity of (PROTONIX) 00:00: 00:00 mouth 2 [place] 40 mg EC 00 :00 (two) Medical tablet times Branch daily. fluticasone 2017-2020- No [id number] 2{spray Use 2 Univers 50 6-27 08-22 } Sprays in ity of mcg/actuati 00:00: 00:00 each [place] on nasal 00 :00 nostril Medical spray daily. Branch naproxen 2017-0 Yes 550mg Take 1 Univer s sodium 6-10 tablet by ity of (ANAPROX 00:00: mouth 2 [place] DS) 550 mg 00 (two) Medical tablet times Branch daily with meals. naproxen 2018-0 Yes 550mg Take 1 Univer s sodium 6-10 tablet by ity of (ANAPROX 00:00: mouth 2 [place] DS) 550 mg 00 (two) Medical tablet times Branch daily with meals. naproxen 2017-0 Yes 550mg Take 1 Univer s sodium 6-10 tablet by ity of (ANAPROX 00:00: mouth 2 [place] DS) 550 mg 00 (two) Medical tablet times Branch daily with meals. naproxen 2018-0 Yes 550mg Take 1 Univer s sodium 6-10 tablet by ity of (ANAPROX 00:00: mouth 2 [place] DS) 550 mg 00 (two) Medical tablet times Branch daily with meals. naproxen 2017-0 2020- No 550mg Take 1 Unive rs sodium 6-10 08-22 tablet by ity of (ANAPROX 00:00: 00:00 mouth 2 [place] DS) 550 mg 00 :00 (two) Medical tablet times Branch daily with meals. metoclopram 2017- Yes [id number] 1 tab U nivers arianne HCl 10 5-25 every 4hr ity of mg tablet 00:00: as needed [place] as 00 for nausea Medical Branch metoclopram 2018-0 Yes [id number] 1 tab U nivers arianne HCl 10 5-25 every 4hr ity of mg tablet 00:00: as needed [place] as 00 for nausea Medical Branch metoclopram 2018-0 Yes [id number] 1 tab U nivers arianne HCl 10 5-25 every 4hr ity of mg tablet 00:00: as needed [place] as 00 for nausea Medical Branch metoclopram 2018-0 Yes [id number] 1 tab U nivers arianne HCl 10 5-25 every 4hr ity of mg tablet 00:00: as needed [place] as 00 for nausea Medical Branch metoclopram 2018-0 202- No [id number] 1 tab Univers arianne HCl 10 5-25 [...] 1 Un tracee dine 200 mg 5-10 - tablet by it y of tablet 00:00: 00:00 mouth 3 [place] 00 :00 (three) Medical times Branch daily. ondansetron 2018-0 2020- No 4mg Take 1 Uni vers (ZOFRAN 5-10 -22 tablet by ity of ODT) 4 mg 00:00: 00:00 mouth [place] disintegrat 00 :00 every 8 Medic al ing tablet (eight) Branch hours as needed for Nausea and Vomiting (N/V). acetaminoph Yes [id number] 1{tbl} Take 1-2 Univers en-codeine 5-01 tablets by ity of 300-30 mg 00:00: mouth [place] tablet 00 every 6 Medical (six) Branch hours as needed for Pain (scale 4-6) or Pain (scale 7-10) (for breakthrou gh pain). acetaminoph Yes [id number] 1{tbl} Take 1-2 Univers en-codeine 5-01 tablets by ity of 300-30 mg 00:00: mouth [place] tablet 00 every 6 Medical (six) Branch hours as needed for Pain (scale 4-6) or Pain (scale 7-10) (for breakthrou gh pain). acetaminoph Yes [id number] 1{tbl} Take 1-2 Univers en-codeine 5-01 tablets by ity of 300-30 mg 00:00: mouth [place] tablet 00 every 6 Medical (six) Branch hours as needed for Pain (scale 4-6) or Pain (scale 7-10) (for breakthrou gh pain). acetaminoph Yes [id number] 1{tbl} Take 1-2 Univers en-codeine 5-01 tablets by ity of 300-30 mg 00:00: mouth [place] tablet 00 every 6 Medical (six) Branch hours as needed for Pain (scale 4-6) or Pain (scale 7-10) (for breakthrou gh pain). acetaminoph 2020- No [id number] 1{tbl} Take 1-2 Univers en-codeine 5-01 08-22 tablets by it y of 300-30 mg 00:00: 00:00 mouth [place] tablet 00 :00 every 6 Medical (six) Branch hours as needed for Pain (scale 4-6) or Pain (scale 7-10) (for breakthrou gh pain). meclizine Yes [id number] 25mg Take 1 U nivers 25 mg 3-30 tablet by ity of tablet 00:00: mouth 3 [place] 00 (three) Medical times Branch daily as needed for Dizziness. meclizine 2017- Yes [id number] 25mg Take 1 U nivers 25 mg 3-30 tablet by ity of tablet 00:00: mouth 3 [place] 00 (three) Medical times Branch daily as needed for Dizziness. meclizine 2017- Yes [id number] 25mg Take 1 U nivers 25 mg 3-30 tablet by ity of tablet 00:00: mouth 3 [place] 00 (three) Medical times Branch daily as needed for Dizziness. meclizine 2017- Yes [id number] 25mg Take 1 U nivers 25 mg 3-30 tablet by ity of tablet 00:00: mouth 3 [place] 00 (three) Medical times Branch daily as needed for Dizziness. meclizine 2020- No [id number] 25mg Take 1 Univers 25 mg 3-30 [...] hot shower 1 hour before bedtime promethazin 2018- Yes 5mL Take 5 mL U nivers [...] hot shower 1 hour before bedtime promethazin 2020- No 5mL Take 5 mL Univers e-codeine 2-10 08-22 by mouth 4 ity of 6.25-10 00:00: 00:00 (four) [place] mg/5 mL 00 :00 times Medical syrup daily as Branch needed for Cough. sod 2020- No 1{bottl Use 1 Univers chlor-bicar 2-10 08-22 e} Bottle in it y of b-squeez 00:00: 00:00 each [place] bottle 00 :00 nostril 2 Medical (NEILMED (two) Branch SINUS RINSE times COMPLETE) daily. Use pkdv in hot shower 1 hour before bedtime ondansetron 2018-0 Yes 4mg Take 1 Univ [...] needed for Nausea and Vomiting (N/V). ondansetron Yes 4mg Take 1 Univ ers (ZOFRAN 1-24 tablet by ity of ODT) 4 mg 00:00: mouth [place] disintegrat 00 every 8 Medic al ing tablet (eight) Branch hours as needed for Nausea and Vomiting (N/V). ondansetron Yes 4mg Take 1 Univ ers (ZOFRAN 1-24 tablet by ity of ODT) 4 mg 00:00: mouth [place] disintegrat 00 every 8 Medic al ing tablet (eight) Branch hours as needed for Nausea and Vomiting (N/V). ondansetron 2020- No 4mg Take 1 Uni vers (ZOFRAN 1-24 08-22 tablet by ity of ODT) 4 [...] Medica l 29 times Center daily. propranolol 2017 Yes 20mg Q.5D Take [address] [facility] (INDERAL) 1-26 by mouth 2 [facility] - 20 MG 15:00: (two) Medical tablet 29 times Center daily. traZODone 2016-08 Yes 150mg QD Take [address] [facility] (DESYREL) 1-26 mg by [facility] - 150 MG 15:00: mouth Medical tablet 29 nightly. [place] ARIPiprazol 2016-08 Yes 15mg QD Take 15 [...] (two) Medical times Branch daily. metroNIDAZO 2016-08 No 500mg Take 1 Un tracee LE [...] Anette is (MOTRIN) 8-31 infection tablets by [facility] 200 mg 00:00: mouth tablet 00 every 6 hours as needed for Pain. ARIPIPRAZOL Yes Take by Benjamín parr E (ABILIFY 8-27 mouth. Health OR) 13:48: [...] Krishnamurthy formoterol 8-27 chronic Puffs by Jay alth (SYMBICORT) 00:00: bronchitis mouth 2 80-4.5 00 times mcg/actuati daily on inhaler Rinse mouth after each use.. Vital Signs Vital Name Observation Time Observation Value Comments Source Systolic blood 2021-10-01 03:09:00 144 mm[Hg] [facility] Diastolic blood 2021-10-01 03:09:00 87 mm[Hg] [facility] Heart rate 2021-10-01 03:09:00 87 /min [facility] [place] [facility] Body temperature 2021-10-01 03:09:00 36.72 Michell [facility] [place] [facility] Respiratory rate 2021-10-01 03:09:00 20 /min [facility] [place] [facility] Body height 2021-10-01 03:09:00 172.7 cm [facility] [place] [facility] Body weight 2021-10-01 03:09:00 81.647 kg [facility] [place] [facility] BMI 2021-10-01 03:09:00 27.37 kg/m2 [facility] [place] [facility] Oxygen saturation in 2021-10-01 03:09:00 98 /min University of Arterial blood by [place] [employer] mary ann Pulse oximetry Branch Systolic blood 2021-09-17 06:40:00 103 mm[Hg] Univer sity of pressure [place] [facility] Diastolic blood 2021-09-17 06:40:00 60 mm[Hg] Unive rsity of pressure [place] [facility] Heart rate 2021-09-17 06:40:00 64 /min [facility] [place] [facility] Oxygen saturation in 2021-09-17 06:40:00 97 /min University of Arterial blood by [place] [employer] mary ann Pulse oximetry Branch Body temperature 2021-09-17 03:46:00 36.94 Michell [facility] [place] [facility] Respiratory rate 2021-09-17 03:46:00 18 /min [facility] [place] [facility] Body height 2021-09-17 03:46:00 172.7 cm [facility] [place] [facility] Body weight 2021-09-17 03:46:00 84.823 kg [facility] [place] [facility] BMI 2021-09-17 03:46:00 28.43 kg/m2 [facility] [place] [facility] Systolic blood 2021-09-15 19:50:00 129 mm[Hg] Univer sity of pressure [place] [facility] Diastolic blood 2021-09-15 19:50:00 75 mm[Hg] Unive rsity of pressure [place] [facility] Heart rate 2021-09-15 19:50:00 80 /min [facility] [place] [facility] Oxygen saturation in 2021-09-15 19:50:00 99 /min University of Arterial blood by [place] [employer] mary ann Pulse oximetry Branch Body temperature 2021-09-15 18:37:00 37.06 Michell [facility] [place] [facility] Respiratory rate 2021-09-15 18:37:00 18 /min [facility] [place] [facility] Body height 2021-09-15 18:37:00 172.7 cm [facility] [place] [facility] Body weight 2021-09-15 18:37:00 84.823 kg [facility] [place] [facility] BMI 2021-09-15 18:37:00 28.43 kg/m2 [facility] [place] [facility] Systolic blood 2021-08-21 22:49:00 142 mm[Hg] Univer sity of pressure [place] [facility] Diastolic blood 2021-08-21 22:49:00 89 mm[Hg] Unive rsity of pressure [place] [facility] Heart rate 2021-08-21 22:49:00 71 /min [facility] [place] [facility] Oxygen saturation in 2021-08-21 22:49:00 99 /min University of Arterial blood by [facility] Pulse oximetry Branch Body temperature 2021-08-21 21:55:00 36.61 Michell [facility] [place] [facility] Respiratory rate 2021-08-21 21:55:00 18 /min [facility] [place] [facility] Body weight 2021-08-21 21:55:00 81.647 kg [facility] [place] [facility] BMI 2021-08-21 21:55:00 27.37 kg/m2 [facility] [place] [facility] Systolic blood 2021-04-26 22:15:00 113 mm[Hg] Univer sity of pressure [place] [facility] Diastolic blood 2021-04-26 22:15:00 79 mm[Hg] Unive rsity of pressure [place] [facility] Heart rate 2021-04-26 22:15:00 59 /min [facility] [place] [facility] Respiratory rate 2021-04-26 22:15:00 13 /min [facility] [place] [facility] Oxygen saturation in 2021-04-26 22:15:00 99 /min University of Arterial blood by [facility] mary ann Pulse oximetry Branch Body temperature 2021-04-26 17:03:00 36.72 Michell [facility] [place] [facility] Body weight 2021-04-26 17:03:00 90.719 kg [facility] [place] [facility] BMI 2021-04-26 17:03:00 30.41 kg/m2 [facility] [place] [facility] Systolic blood 2021-04-17 23:53:00 130 mm[Hg] Univer sity of pressure [place] [facility] Diastolic blood 2021-04-17 23:53:00 75 mm[Hg] Unive [...] 2021-04-17 23:53:00 30.41 kg/m2 [facility] [place] [facility] Oxygen saturation in 2021-04-17 23:53:00 100 /min University of Arterial blood by [place] [employer] mary ann Pulse oximetry Branch Systolic blood [...] /min University of Arterial blood by [place] [employer] mary ann Pulse oximetry Branch Systolic blood 2020-04-29 19:15:00 124 mm[Hg] Univer sity of pressure [place] [facility] Diastolic blood 2020-04-29 19:15:00 86 mm[Hg] Unive rsity of pressure [place] [facility] Heart rate 2020-04-29 19:15:00 59 /min [facility] [place] [facility] Respiratory rate 2020-04-29 19:15:00 17 /min [facility] [place] [facility] Oxygen saturation in 2020-04-29 19:15:00 99 /min University of Arterial blood by [facility] Pulse oximetry Branch Body temperature 2020-04-29 15:43:00 37.11 Michell [facility] [place] [facility] Body height 2020-04-29 15:43:00 172.7 cm [facility] [place] [facility] Body weight 2020-04-29 15:43:00 86.183 kg [facility] [place] [facility] BMI 2020-04-29 15:43:00 28.89 kg/m2 [...] 99 /min University of Arterial blood by [facility] Pulse oximetry Branch Body temperature 2020-04-29 15:43:00 37.11 Michell [facility] [place] [facility] Body height 2020-04-29 15:43:00 172.7 cm [facility] [place] [facility] Body weight 2020-04-29 15:43:00 86.183 kg [facility] [place] [facility] BMI 2020-04-29 15:43:00 28.89 kg/m2 [...] 98 /min University of Arterial blood by [facility] Pulse oximetry Branch Systolic blood 2019-04-14 22:23:00 [...] 98 /min University of Arterial blood by [facility] Pulse oximetry Branch Systolic blood 2019-03-19 04:00:00 122 mm[Hg] Univer sity of [facility] [place] [facility] Diastolic blood 2019-03-19 04:00:00 78 mm[Hg] Unive rsity of [facility] [place] [facility] Heart rate 2019-03-19 04:00:00 68 /min [facility] [place] [facility] Respiratory rate 2019-03-19 04:00:00 18 /min [facility] [place] [facility] Oxygen saturation in 2019-03-19 04:00:00 97 /min University of Arterial blood by [facility] Pulse oximetry Branch Body temperature 2019-03-19 03:28:00 36.67 Michell [facility] [place] [facility] Body weight 2019-03-19 03:28:00 90.719 kg [facility] [place] [facility] BMI 2019-03-19 03:28:00 30.41 kg/m2 [facility] [place] [facility] Systolic blood 2019-03-19 04:00:00 122 mm[Hg] Univer sity of [facility] [place] [facility] Diastolic blood 2019-03-19 04:00:00 78 mm[Hg] Unive rsity of pressure [place] [facility] Heart rate 2019-03-19 04:00:00 68 /min [facility] Respiratory rate 2019-03-19 04:00:00 18 /min [facility] Oxygen saturation in 2019-03-19 04:00:00 97 /min [facility] Arterial blood by [facility] Pulse oximetry [place] Body temperature 2019-03-19 03:28:00 36.67 Michell [facility] Body weight 2019-03-19 03:28:00 90.719 kg [facility] BMI 2019-03-19 03:28:00 30.41 kg/m2 [facility] Procedures Procedure Date / Time Performing Clinician Source Performed POCT TEST 2021-10-01 03:23:00 Katelyn Baker [facility] URINALYSIS 2021-10-01 03:17:00 Katelyn Baker [facility] NOTICE OF PRIVACY 2021-10-01 03:03:14 Doctor Unassigned, No [facility] CONSENT/REFUSAL FOR 2021-10-01 03:00:51 [facility] US OVARY TORSION 2021-09-17 05:52:50 Katherin Maurer [facility] NOTICE OF PRIVACY 2021-09-17 03:47:38 Doctor Unassigned, No [facility] CONSENT/REFUSAL FOR 2021-09-17 03:41:04 [facility]igned, [facility] Name [facility] CT ABDOMEN PELVIS W 2021-09-15 19:51:50 Pino Aldana [facility] CONTRAST [facility] POCT TEST 2021-09-15 19:00:00 Pino Aldana [facility] LIPASE 2021-09-15 18:56:00 Pino Aldana [facility] COMP. METABOLIC PANEL 2021-09-15 18:56:00 Pino Aldana [facility] ([id number]) [facility] CBC WITH DIFF 2021-09-15 18:56:00 Pino Aldana [facility] URINALYSIS 2021-09-15 18:56:00 Pino Aldana [facility] COVID-19 (ID NOW RAPID 2021-09-15 18:56:00 Pino Aldana [facility] TESTING) Medical Branch CONSENT/REFUSAL FOR 2021-09-15 18:28:32 Doctor Unassigned, No Un iversity [facility] DIAGNOSIS AND TREATMENT Name Medical Branch CT HEAD WO CONTRAST 2021-08-21 22:46:54 Katherin Maurer [facility] POCT TEST 2021-08-21 22:39:00 Katherin Maurer [facility] COMP. METABOLIC PANEL 2021-08-21 22:32:00 Katherin Maurer [facility] ([id number]) [facility] CBC WITH DIFF 2021-08-21 22:32:00 Libertad [facility] RAPID INFLUENZA A/B 2021-08-21 22:32:00 Katherin Maurer [facility] COVID-19 (ID NOW RAPID 2021-08-21 22:32:00 Katherin Maurer [facility] TESTING) Medical Branch CONSENT/REFUSAL FOR 2021-08-21 21:45:27 Doctor Unassigned, [facility] Name Medical Branch FREE T4 2021-04-26 20:43:00 Blayne [facility]irston [facility] CREATINE KINASE 2021-04-26 20:41:00 Yovanny Blayne [facility] MAGNESIUM 2021-04-26 20:41:00 Yovanny Blayne [facility] TROPONIN I 2021-04-26 20:41:00 Blayne Hairston [facility] COMP. METABOLIC PANEL 2021-04-26 20:41:00 Blayne Hairston [facility] ([id number]) Medical Branch SEDIMENTATION RATE 2021-04-26 19:33:00 Blayne Hairston [facility] CT CERVICAL SPINE WO 2021-04-26 19:00:47 Blayne Hairston [facility] CONTRAST [facility] Branch CT HEAD WO CONTRAST 2021-04-26 19:00:47 Blayne Hairston [facility] COVID-19 (ID NOW RAPID 2021-04-26 18:30:00 Blayne Hairston [facility] TESTING) Medical Branch THYROID STIMULATING 2021-04-26 18:25:00 Blayne Hairston [facility] HORMONE [facility] CBC WITH DIFF 2021-04-26 18:25:00 Blayne Hairston [facility] N-TERMINAL PRO-BNP 2021-04-26 18:25:00 Blayne Hairston [facility] POCT TEST 2021-04-26 18:24:00 Blayne Hairston [facility] URINALYSIS 2021-04-26 18:23:00 Blayne Hairston [facility] URINE DRUG (IMMUNOASSAY) 2021-04-26 18:23:00 Blayne Hairston [facility] DRUG [facility] n[facility] SCREEN W/O REFLEX CONSENT/REFUSAL FOR 2021-04-26 16:29:45 Doctor [facility]assigned, No [facility] ASSIGNMENT OF BENEFITS 2021-04-18 01:01:09 Doctor Unassigned, No [facility] CONSENT/REFUSAL FOR 2021-04-17 23:47:56 Doctor Unassigned, No [facility] [place] DIAGNOSIS AND TREATMENT [facility] POCT TEST 2021-04-12 00:20:00 John Hinkle [facility] URINALYSIS 2021-04-12 00:18:00 John Hinkle [facility] CONSENT/REFUSAL FOR 2021-04-12 00:10:24 Doctor [facility]igned, [facility] XR KNEE 3 VW LEFT 2020-04-29 16:37:20 Amaris Stallings [facility] COMP. METABOLIC PANEL 2020-04-29 16:30:00 Amaris Stallings [facility] ([id number]) Medical [place] CBC WITH DIFF 2020-04-29 16:30:00 Amaris Stallings [facility] POCT TEST 2020-04-29 16:24:00 Amaris Stallings [facility] RAPID STREP SCREEN FOR 2020-04-29 16:11:00 [facility] Medical Branch NOTICE OF PRIVACY 2020-04-29 15:31:17 Doctor Unassigned, No [facility] Branch CONSENT/REFUSAL FOR 2020-04-29 15:31:01 Doctor Unassigned, No [facility] [place] DIAGNOSIS AND TREATMENT Name Medical Branch POCT TEST 2019-03-19 04:24:00 [facility] NOTICE OF PRIVACY 2019-03-19 03:19:57 Doctor Unassigned, No Univ ersity [facility] Name Medical Branch CONSENT/REFUSAL FOR 2019-03-19 03:19:41 Doctor Unassigned, No [facility] [place] DIAGNOSIS AND TREATMENT Name Medical Branch Plan of Care Planned Activity Planned Date Details Comments Source Future Scheduled 2021-05-21 IMM Influenza [facility] 00:00:00 Seasonal May to October (>/= 19 yrs) [code = IMM Influenza Seasonal May to October (>/= 19 yrs)] Future Scheduled 2020-04-20 Screening for [facility] 00:00:00 malignant neoplasm of cervix (procedure) [code = 461864348] Future Scheduled 2015 [facility] 00:00:00 malignant neoplasm of cervix (procedure) [code = 066226757] Future Scheduled 1997 COVID-19 Vaccine Krishnamurthy [facility] Test 00:00:00 (1) [code = COVID-19 Vaccine (1)] Future Scheduled COVID-[address] [facility] (1) [code = COVID-19 VACCINE (1)] Future Scheduled Scre[facility] Test malignant neoplasm of cervix (procedure) [code = 146120606] Future Scheduled [facility] [code = INFLUENZA VACCINE] Encounters Start End Encounter Admission Attending Care Care Encounter Source Date/Time Date/Time Type Type Clinicians Facility Department ID 2021-06-21 Emergency [facility] [id number] Univers 20:38:37 ity [facility] 2021-06-21 Emergency [facility] [id number] Univers 18:47:54 ity [facility] 2021-06-21 Emergency [facility] [id number] Univers 17:14:45 ity [facility] 2021-06-18 Emergency [facility] [id number] Univers 16:34:[address] [facility] 2021-09-30 2021-09-30 Emergency [facility] [id number] Univers 21:14:00 22:04:00 KATELYN ity [facility] 2021-09-30 2021-09-30 Emergency [facility] [id number] Univers 21:14:00 22:04:00 Katelyn CARRANZA [id number] ity of [place] [id number] [id number] [address] 2021-09-30 2021-09-30 Orders Doctor ANTHONY [id number] Univers 00:00:00 00:00:00 Only Unassigned, LINDA [id number] [facility] [id number] Luis [id number] [address] 2021-09-16 2021-09-17 Emergency [facility] ERT [id number] Univers 21:51:00 00:42:00 KATHERIN ity [facility] 2021-09-16 2021-09-17 Emergency [facility] [id number] Univers 21:51:00 00:42:00 Katherin CARRANZA [id number] i ty of [place] [id number] [facility] [id number] [address] 2021-09-15 2021-09-15 Emergency [facility] ERT [id number] Univers 12:41:00 15:07:00 PINO ity [facility] 2021-09-15 2021-09-15 Emergency [facility] [id number] Univers 12:41:00 15:07:00 Pino CARRANZA [id number] i ty of [place] [id number] [place] [id number] [address] 2021-08-21 2021-08-21 Emergency [facility] ERT [id number] Univers 15:57:00 17:52:[address] [facility] 2021-08-21 2021-08-21 Emergency [place], [facility] [id number] Univers 15:57:00 17:52:00 Katherin CARRANZA [id number] i ty [facility] [id number] [facility] [id number] [address] 2021-08-21 2021-08-21 Orders Doctor ANTHONY [id number] Univers 00:00:00 00:00:00 Only Unassigned, LINDA [id number] ity of [facility] [id number] Luis as [id number] [address] 2021-04-26 2021-04-26 Emergency [facility] [id number] Univers 12:05:00 17:42:00 Blayne Carranza [id number] i ty of Model 4.2.7.2.686 [facility] [phone] [address] 2021-04-26 2021-04-26 Orders Doctor ANTHONY 1.2.840.114 [id number] Univers 00:00:00 00:00:00 Only Unassigned, LINDA 350.1.13.10 ity of [place] [facility] 4.2.7.2.686 Luis as [id number] [address] 2021-04-17 2021-04-17 Emergency [facility] 1.2.524.514 [id number] Univers 18:55:00 20:04:00 Basil Carranza 350.1.13.10 i ty of Model 4.2.7.2.686 [facility] [phone] [address] 2021-04-11 2021-04-11 [facility] 1.2.777.538 [id number] Univers 19:20:00 20:53:00 Katherin S Orchard 350.1.13.10 i ty of Model 4.2.7.2.686 [facility] [id number] [address] 2020-04-29 2020-04-29 Emergency [facility] 1.2.086.505 [id number] [facility] 10:44:00 14:30:00 Amaris Carranza 350.1.13.10 i ty of Model 4.2.7.2.686 [facility] [phone] [address] 2020-04-29 2020-04-29 Emergency [facility] 1.2.564.956 [id number] 5918 10:44:00 14:30:00 Amaris Carranza 350.1.13.[address] Model [address] [place] [address] [phone] [facility] 2020-04-29 2020-04-29 Orders Doctor CRUZ 1.2.840.114 [id number] Univers 00:00:00 00:00:00 Only Unassigned, LINDA 350.1.13.10 ity of [place] [facility] 4.2.7.2.686 [facility] [phone] [address] 2020-04-29 2020-04-29 Orders Doctor CRUZ 1.2.840.114 [id number] 07 00:00:00 00:00:00 Only Unassigned, LINDA 350.1.13.10 [place] [facility] 4.2.7.2.68 [phone] [facility] 2019-04-14 2019-04-14 Emergency [facility] 1.2.840.114 [id number] [facility] 17:25:25 17:58:00 Ad Carranza 350.1.13.10 i ty of Model 4.2.7.2.686 [facility] [phone] [address] 2019-04-14 2019-04-14 Emergency [facility] 1.2.840.114 [id number] 17:25:25 17:58:00 Ad Carranza 350.1.13.[address] [place] [address] [phone] [facility] 2019-03-18 2019-03-18 Emergency Vonda Aguila [facility] 1.2.840.114 [id number] [facility] 22:34:35 23:51:00 Maribel Carranza 350.1.13.10 i ty of Model 4.2.7.2.686 [facility] [phone] [facility] [address] 2019-03-18 2019-03-18 Emergency Vonda Aguila [facility] 1.2.840.114 [id number] 22:34:35 23:51:00 Maribel Carranza 350.1.13.10 Model 4.2.7.2.686 [place] [id number] 084 2017-04-09 2017-04-09 Emergency [facility] [id number] Krishnamurthy 00:00:00 00:00:00 Health 2017-04-09 2017-04-09 Emergency [facility] [id number] Krishnamurthy 00:00:00 00:00:00 Health 2017-04-08 2017-04-08 Emergency [facility] [id number] Krishnamurthy 22:35:00 22:35:00 Health 2017-04-08 2017-04-08 Emergency [facility] [id number] 8 Krishnamurthy 00:00:00 00:00:00 Health Results Test Description Test Time Test Comments Results Result Comments Source POCT TEST 2021-10-01 03:23:00 Test Item Value Reference Range Interpretation Comme nts POCT PREG (test code = 1605) negative On board controls acceptable with C Line (test code = 3574) present POCT PREG LOT # (test code = 3575) [id number] POCT PREG TEST DATE (test code = 3576) 2022-10-18 Lab Interpretation (test code = 07369-6) Normal [facility] WITH [id number] 20:17:20 Test Item Value Reference Range Interpretation Comments WBC (test code = See_Comment H [Automated 6016-2) message] The sy stem which generated this result transmitted reference range : 4.30 - 11.10 10*3/?L. The reference range was not used to interpret this result as normal/abnormal . RBC (test code = See_Comment [Automated 943-8) message] The sy stem which generated this result transmitted reference range : 3.93 - 5.25 10*6/?L. The reference range was not used to interpret this result as normal/abnormal . HGB (test code = 14.1 g/dL 11.6-15.0 718-7) HCT (test code = 41.7 % 35.7-45.2 4544-3) MCV (test code = 91.4 fL 80.6-95.5 787-2) MCH (test code = 30.9 pg 25.9-32.8 785-6) MCHC (test code = 33.8 g/dL 31.6-35.1 786-4) RDW-SD (test code = 43.7 fL 39.0-49.9 99283-6) RDW-CV (test code = 13.0 % 12.0-15.5 788-0) PLT (test code = See_Comment H [Automated 777-3) message] The sy stem which generated this result transmitted reference range : 166 - 358 10*3/ ?L. The reference r dinora was not used to interpret this result as normal/abnormal . MPV (test code = 9.6 fL 9.5-12.9 49821-9) NRBC/100 WBC (test See_Comment [Automat ed code = 9131307949) message] The system which generated this result transmitted reference range : 0.0 - 10.0 /100 WBCs. The refer ence range was not u sed to interpret th is result as normal/abnormal . NRBC x10^3 (test code <0.01 See_Comment [Auto mated = 7392727729) message] The s ystem which generated this result transmitted reference range : 10*3/?L. The reference range was not used to interpret this result as normal/abnormal . GRAN MAT (NEUT) % 53.3 % (test code = 770-8) IMM GRAN % (test code 0.50 % = 2162185062) LYMPH % (test code = 39.2 % 736-9) MONO % (test code = 5.3 % 5905-5) EOS % (test code = 1.1 % 713-8) BASO % (test code = 0.6 % 706-2) GRAN MAT x10^3(ANC) 6.66 10*3/uL 1.88-7.09 (test code = 5580055751) IMM GRAN x10^3 (test 0.06 10*3/uL 0.00-0.06 code = 9383344902) LYMPH x10^3 (test code 4.91 10*3/uL 1.32-3.29 H = 731-0) MONO x10^3 (test code 0.66 10*3/uL 0.33-0.92 = 742-7) EOS x10^3 (test code = 0.14 10*3/uL 0.03-0.39 711-2) BASO x10^3 (test code 0.08 10*3/uL 0.01-0.07 H = 704-7) REACT LYMPHS (test Rare code = 7359789155) Lab Interpretation Abnormal (test code = 65992-0) [facility]. METABOLIC PANEL (41739)2021-09-15 19:38:55 Test Item Value Reference Range Interpretation Comments NA (test code = 137 mmol/L 135-145 2352051036) K (test code = 4.2 mmol/L 3.5-5.0 3489175887) CL (test code = 108 mmol/L 98-108 4163222112) CO2 TOTAL (test code = 22 mmol/L 23-31 L 7920177016) AGAP (test code = 2-16 9354876346) BUN (test code = 8 mg/dL 7-23 9689683357) GLUCOSE (test code = 91 mg/dL 70-110 0444384975) CREATININE (test code = 0.54 mg/dL 0.50-1.04 4467719026) TOTAL BILI (test code = 0.5 mg/dL 0.1-1.6 2963163661) CALCIUM (test code = 9.3 mg/dL 8.6-10.6 7984181185) T PROTEIN (test code = 8.1 g/dL 6.3-8.2 0770751688) ALBUMIN (test code = 4.8 g/dL 3.5-5.0 4834152916) ALK PHOS (test code = 93 U/L 34-122 7538935897) ALTv (test code = 18 U/L 5-35 1742-6) AST(SGOT) (test code = 26 U/L 13-40 9174634981) eGFR (test code = mL/min/1.73m2 6650114050) DIEGO (test code = DIEGO) Association of [...] tests). Lab Interpretation Abnormal (test code = 94767-0) [facility] 19:25:19 Test Item Value Reference Range Interpretation Comments LIPASE (test code = 6398958674) 108 U/L 0-220 Lab Interpretation (test code = Normal 91321-6) [facility] [id number] 19:00:00 Test Item Value Reference Range Interpretation Comments POCT PREG (test code = 1605) negative On board controls acceptable with present C Line (test code = 3574) POCT PREG LOT # (test code = 3572) [id number] POCT PREG TEST DATE (test code = 3576) Lab Interpretation (test code = Normal 40961-9) [facility] MET[facility]OLIC PAN[facility] ([id number])2021-08-21 23:29:45 Test Item Value Reference Range Interpretation Comments NA (test code = 135 mmol/L 135-145 3741837092) K (test code = 4.2 mmol/L 3.5-5.0 9489756406) CL (test code = 103 mmol/L 98-108 5433537346) CO2 TOTAL (test code 24 mmol/L 23-31 = 8817948697) AGAP (test code = 2-16 6090016510) BUN (test code = 7 mg/dL 7-23 5895698981) GLUCOSE (test code = 102 mg/dL 70-110 3781804845) CREATININE (test code 0.52 mg/dL 0.50-1.04 = 7375782346) TOTAL BILI (test code 0.4 mg/dL 0.1-1.1 = 2416300077) CALCIUM (test code = 9.3 mg/dL 8.6-10.6 3090809911) T PROTEIN (test code 7.8 g/dL 6.3-8.2 = 7106420403) ALBUMIN (test code = 4.6 g/dL 3.5-5.0 5477615100) ALK PHOS (test code = 95 U/L 34-122 4987274553) ALTv (test code = 18 U/L 5-35 1742-6) AST(SGOT) (test code 27 U/L 13-40 = 1177294121) eGFR (test code = mL/min/1.73m2 8019614542) DIEGO (test code = DIEGO) Association of Glomerular Filtration Rate (GFR) and Staging of Kidney Disease* + + +- +| GFR (mL/min/1.73 m2) ?| With Kidney Damage ?| ?Without Kidney Damage+ ------+ ----+ ------+| ?>90 ?| ?Stage one ?| ? Normal ?+ -+ + -+| ?60-89 ?| ?Stage two ?| ? Decreased GFR ? + + +- +| ?30-59 ?| ?Stage three ?| ? Stage three ? + + +- +| ?15-29 ?| ?Stage four ? | ? Stage four ?+ -+ + -+| ?<15 (or dialysis) ? ?| ?Stage five ? | ? Stage five ?+ -+ + -+ *Each stage assumes the associated GFR level [...] or urine or abnormalities in imaging tests). [facility] WITH [id number] 23:07:05 Test Item Value Reference Range Interpretation Comments WBC (test code = See_Comment H [Automated 6690-2) message] The sy stem which generated this [...] . HGB (test code = 13.5 g/dL 11.6-15.0 718-7) HCT (test code = 41.4 % 35.7-45.2 4544-3) MCV (test code = 93.2 fL 80.6-95.5 787-2) MCH (test code = 30.4 pg 25.9-32.8 785-6) MCHC (test code = 32.6 g/dL 31.6-35.1 786-4) RDW-SD (test code = 44.0 fL 39.0-49.9 55933-3) RDW-CV (test code = 12.8 % 12.0-15.5 788-0) PLT (test code = See_Comment H [Automated 777-3) message] The sy stem which generated this result transmitted reference range : 166 - 358 10*3/ ?L. The reference r dinora was not used to interpret this result as normal/abnormal . MPV (test code = 9.8 fL 9.5-12.9 17645-8) NRBC/100 WBC (test See_Comment [Automat ed code = 8954610467) message] The system which generated this result transmitted reference range : 0.0 - 10.0 /100 WBCs. The refer ence range was not u sed to interpret th is result as normal/abnormal . NRBC x10^3 (test code <0.01 See_Comment [Auto mated = 8365543268) message] The s ystem which generated this result transmitted reference range : 10*3/?L. The reference range was not used to interpret this result as normal/abnormal . GRAN MAT (NEUT) % 58.5 % (test code = 770-8) IMM GRAN % (test code 0.50 % = 0483896470) LYMPH % (test code = 33.9 % 736-9) MONO % (test code = 5.1 % 5905-5) EOS % (test code = 1.2 % 713-8) BASO % (test code = 0.8 % 706-2) GRAN MAT x10^3(ANC) 6.69 10*3/uL 1.88-7.09 (test code = 6802706476) IMM GRAN x10^3 (test 0.06 10*3/uL 0.00-0.06 code = 3413978502) LYMPH x10^3 (test code 3.88 10*3/uL 1.32-3.29 H = 731-0) MONO x10^3 (test code 0.58 10*3/uL 0.33-0.92 = 742-7) EOS x10^3 (test code = 0.14 10*3/uL 0.03-0.39 711-2) BASO x10^3 (test code 0.09 10*3/uL 0.01-0.07 H = 704-7) Lab Interpretation Abnormal (test code = 94078-4) [facility] [id number] 22:39:00 Test Item Value Reference Range Interpretation Comments POCT PREG (test code = 1605) negative On board controls acceptable with present C Line (test code = 3574) POCT PREG LOT # (test code = 3575) [id number] POCT PREG TEST DATE (test 10/18/2022 code = 3576) Lab Interpretation (test code = Normal 18605-0) [facility] [id number] 22:21:43 Test Item Value Reference Range Interpretation Comments FREE T4 (test code = See_Comment [Autom ated message] 1555779486) The system Kenguru generated this result transmitted ref erence range: 0.78 - 2 .20 ng/dL:. The ref erence range was not u sed to interpret this result as normal/abnor mal. Lab Interpretation (test Normal code = 56757-6) [facility] [id number] 22:21:43 Test Item Value Reference Range Interpretation Comments FREE T4 (test code = See_Comment [Autom ated message] 1593603060) The system Kenguru generated this result transmitted ref erence range: 0.78 - 2 .20 ng/dL:. The ref erence range was not u sed to interpret this result as normal/abnor mal. Lab Interpretation (test Normal code = 48007-0) [facility] [id number] 21:24:56 Test Item Value Reference Interpretation Comments Range TROPONIN I (test <0.012 See_Comment [Automated code = 2113722541) message] The system which generated this result [...] biotin. Lab Interpretation Normal (test code = 88947-8) [facility] [id number] 21:24:56 Test Item Value Reference Interpretation Comments Range TROPONIN I (test <0.012 See_Comment [Automated code = 6210296121) message] The system which generated this result [...] biotin. Lab Interpretation Normal (test code = 05469-5) [facility]2021-09-06 21:14:38 Test Item Value Reference Range Interpretation Comments MAGNESIUM (test code = 9884465752) 1.7 mg/dL 1.7-2.4 Lab Interpretation (test code = Normal 71301-8) [facility]2021-09-06 21:14:38 Test Item Value Reference Range Interpretation Comments MAGNESIUM (test code = 8944125166) 1.7 mg/dL 1.7-2.4 Lab Interpretation (test code = Normal 06434-5) [facility] METABOLIC PANEL (99866)2021-04-26 21:14:18 Test Item Value Reference Range Interpretation Comments NA (test code = 139 mmol/L 135-145 2602203902) K (test code = 4.1 mmol/L 3.5-5.0 2532570079) CL (test code = 110 mmol/L 98-108 H 2364280889) CO2 TOTAL (test code = 25 mmol/L 23-31 7778402848) AGAP (test code = 2-16 4504113026) BUN (test code = 6 mg/dL 7-23 L 4306048056) GLUCOSE (test code = 96 mg/dL 70-110 1411506597) CREATININE (test code = 0.50 mg/dL 0.50-1.04 3330889061) TOTAL BILI (test code = 0.2 mg/dL 0.1-1.7 5568706595) CALCIUM (test code = 8.8 mg/dL 8.6-10.6 0649207939) T PROTEIN (test code = 6.9 g/dL 6.3-8.2 6202828897) ALBUMIN (test code = 4.0 g/dL 3.5-5.0 9908953182) ALK PHOS (test code = 73 U/L 34-122 8768524573) ALTv (test code = 15 U/L 5-35 1742-6) AST(SGOT) (test code = 20 U/L 13-40 4007498664) eGFR (test code = mL/min/1.73m2 5781026021) DIEGO (test code = DIEGO) Association of [...] tests). Lab Interpretation Abnormal (test code = 08965-7) [facility] METABOLIC PANEL (63683)2021-04-26 21:14:18 Test Item Value Reference Range Interpretation Comments NA (test code = 139 mmol/L 135-145 4008618434) K (test code = 4.1 mmol/L 3.5-5.0 4711812298) CL (test code = 110 mmol/L 98-108 H 5366984884) CO2 TOTAL (test code = 25 mmol/L 23-31 4982823613) AGAP (test code = 2-16 9800411450) BUN (test code = 6 mg/dL 7-23 L 3321748954) GLUCOSE (test code = 96 mg/dL 70-110 2424816236) CREATININE (test code = 0.50 mg/dL 0.50-1.04 8288020359) TOTAL BILI (test code = 0.2 mg/dL 0.1-1.4 7713795916) CALCIUM (test code = 8.8 mg/dL 8.6-10.6 5022254343) T PROTEIN (test code = 6.9 g/dL 6.3-8.2 2127310301) ALBUMIN (test code = 4.0 g/dL 3.5-5.0 6132331315) ALK PHOS (test code = 73 U/L 34-122 5280574570) ALTv (test code = 15 U/L 5-35 1742-6) AST(SGOT) (test code = 20 U/L 13-40 5125942444) eGFR (test code = mL/min/1.73m2 2301009803) DIEGO (test code = DIEGO) Association of [...] tests). Lab Interpretation Abnormal (test code = 31550-9) [facility] [id number] 21:14:17 Test Item Value Reference Range Interpretation Comments CK (test code = 4114085457) 35 U/L 33-194 Lab Interpretation (test code = Normal 89736-7) [facility] [id number] 21:14:17 Test Item Value Reference Range Interpretation Comments CK (test code = 1198237404) 35 U/L 33-194 Lab Interpretation (test code = Normal 46592-4) [facility] (IMMUNOASSAY) - COMPREHENSIVE DRUG SCREEN W/O [id number] 20:20:42 Test Item Value Reference Range Interpretation Comments AMPHET (test code = Negative Negative 6330324441) NASEEM U (test code = Negative Negative 5323504307) BENZO U (test code = Negative Negative 8628123828) Cocaine Metabolite (test Negative Negative code = 1716605443) METHADONE (test code = Negative Negative 0030001536) OPIATES (test code = Negative Negative 4792089900) PCP (test code = Negative Negative 2642372662) THC (test code = Presumptive Positive Negative A 3937778172) DIEGO (test code = DIEGO) Urine Drug [...] testing). Lab Interpretation (test Abnormal code = 65601-5) [facility] (IMMUNOASSAY) - COMPREHENSIVE DRUG SCREEN W/O [id number] 20:20:42 Test Item Value Reference Range Interpretation Comments AMPHET (test code = Negative Negative 8157895599) NASEEM U (test code = Negative Negative 1279552991) BENZO U (test code = Negative Negative 3530741287) Cocaine Metabolite (test Negative Negative code = 9975839884) METHADONE (test code = Negative Negative 0648915800) OPIATES (test code = Negative Negative 4256894542) PCP (test code = Negative Negative 0391449853) THC (test code = Presumptive Positive Negative A 8966484497) DIEGO (test code = DIEGO) Urine Drug [...] testing). Lab Interpretation (test Abnormal code = 02106-4) [facility]SEDIM[facility] [id number] 20:17:29 Test Item Value Reference Range Interpretation Comments ESR (test code = See_Comment [Automated message] 3730317963) The system Kenguru generated this result transmitted ref erence range: 0 - 20 m m/HR. The reference r dinora was not used to interpret this result as normal/abnor mal. Lab Interpretation (test Normal code = 50166-4) [facility] DallasSEDIM[facility] [id number] 20:17:29 Test Item Value Reference Range Interpretation Comments ESR (test code = See_Comment [Automated message] 7472738126) The system Kenguru generated this result transmitted ref erence range: 0 - 20 m m/HR. The reference r dinora was not used to interpret this result as normal/abnor mal. Lab Interpretation (test Normal code = 41918-3) [facility] STIMULATING [id number] 20:14:11 Test Item Value Reference Range Interpretation Comments TSH (test code = See_Comment [Automated message] 2146134032) The system Kenguru generated this result transmitted ref erence range: 0.45 - 4 .70 mIU/L. The refe rence range was not u sed to interpret this result as normal/abnor mal. Lab Interpretation (test Normal code = 98653-6) [facility] [id number] 20:14:11 Test Item Value Reference Range Interpretation Comments TSH (test code = See_Comment [Automated message] 1931906330) The system Kenguru generated this result transmitted ref erence range: 0.45 - 4 .70 mIU/L. The refe rence range was not u sed to interpret this result as normal/abnor mal. Lab Interpretation (test Normal code = 29150-4) [facility] DallasN-TERMINAL [id number] 20:03:34 Test Item Value Reference Range Interpretation Comments NT-proBNP (test code 42 pg/mL See_Comment [Autom ated = 9474536275) message] The system which generated this result transmitted reference range : <=125. The reference range was not used to interpret this result as normal/abnormal . DIEGO (test code = DIEGO) Biotin has been reported to cause a negative bias, interpret results relative to patient's use of biotin. Lab Interpretation Normal (test code = 54304-4) [facility]MIN[facility] [id number] 20:03:34 Test Item Value Reference Range Interpretation Comments NT-proBNP (test code 42 pg/mL See_Comment [Autom ated = 7174205382) message] The system which generated this result transmitted reference range : <=125. The reference range was not used to interpret this result as normal/abnormal . DIEGO (test code = DIEGO) Biotin has been reported to cause a negative bias, interpret results relative to patient's use of biotin. Lab Interpretation Normal (test code = 90945-3) [facility] WITH [id number] 19:45:17 Test Item Value Reference Range Interpretation Comments WBC (test code = See_Comment H [Automated 6690-2) message] The sy stem which generated this [...] RDW-SD (test code = 43.4 fL 39.0-49.9 43430-2) RDW-CV (test code = 12.5 % 12.0-15.5 788-0) PLT (test code = See_Comment H [Automated 777-3) message] The sy stem which generated this result transmitted reference range : 166 - 358 10*3/ ?L. The reference r dinora was not used to interpret this result as normal/abnormal . MPV (test code = 10.1 fL 9.5-12.9 03081-5) NRBC/100 WBC (test See_Comment [Automat ed code = 5624542303) message] The system which generated this result transmitted reference range : 0.0 - 10.0 /100 WBCs. The refer ence range was not u sed to interpret th is result as normal/abnormal . NRBC x10^3 (test code <0.01 See_Comment [Auto mated = 3744054231) message] The s ystem which generated this result transmitted reference range : 10*3/?L. The reference range was not used to interpret this result as normal/abnormal . GRAN MAT (NEUT) % 60.0 % (test code = 770-8) IMM GRAN % (test code 0.80 % = 6392015856) LYMPH % (test code = 31.1 % 736-9) MONO % (test code = 5.5 % 5905-5) EOS % (test code = 2.0 % 713-8) BASO % (test code = 0.6 % 706-2) GRAN MAT x10^3(ANC) 7.94 10*3/uL 1.88-7.09 H (test code = 3719534592) IMM GRAN x10^3 (test 0.11 10*3/uL 0.00-0.06 H code = 2588473853) LYMPH x10^3 (test code 4.13 10*3/uL 1.32-3.29 H = 731-0) MONO x10^3 (test code 0.73 10*3/uL 0.33-0.92 = 742-7) EOS x10^3 (test code = 0.27 10*3/uL 0.03-0.39 711-2) BASO x10^3 (test code 0.08 10*3/uL 0.01-0.07 H = 704-7) Lab Interpretation Abnormal (test code = 41040-3) [facility] WITH [id number] 19:45:17 Test Item Value Reference Range Interpretation Comments WBC (test code = See_Comment H [Automated 1290-2) message] The sy stem which generated this result transmitted reference range : 4.30 - 11.10 10*3/?L. The reference range was not used to interpret this result as normal/abnormal . RBC (test code = See_Comment [Automated 569-8) message] The sy stem which generated this [...] RDW-SD (test code = 43.4 fL 39.0-49.9 01125-4) RDW-CV (test code = 12.5 % 12.0-15.5 788-0) PLT (test code = See_Comment H [Automated 777-3) message] The sy stem which generated this result transmitted reference range : 166 - 358 10*3/ ?L. The reference r dinora was not used to interpret this result as normal/abnormal . MPV (test code = 10.1 fL 9.5-12.9 94965-2) NRBC/100 WBC (test See_Comment [Automat ed code = 8846972183) message] The system which generated this result transmitted reference range : 0.0 - 10.0 /100 WBCs. The refer ence range was not u sed to interpret th is result as normal/abnormal . NRBC x10^3 (test code <0.01 See_Comment [Auto mated = 3137620587) message] The s ystem which generated this result transmitted reference range : 10*3/?L. The reference range was not used to interpret this result as normal/abnormal . GRAN MAT (NEUT) % 60.0 % (test code = 770-8) IMM GRAN % (test code 0.80 % = 6471492801) LYMPH % (test code = 31.1 % 736-9) MONO % (test code = 5.5 % 5905-5) EOS % (test code = 2.0 % 713-8) BASO % (test code = 0.6 % 706-2) GRAN MAT x10^3(ANC) 7.94 10*3/uL 1.88-7.09 H (test code = 1338181503) IMM GRAN x10^3 (test 0.11 10*3/uL 0.00-0.06 H code = 0844758413) LYMPH x10^3 (test code 4.13 10*3/uL 1.32-3.29 H = 731-0) MONO x10^3 (test code 0.73 10*3/uL 0.33-0.92 = 742-7) EOS x10^3 (test code = 0.27 10*3/uL 0.03-0.39 711-2) BASO x10^3 (test code 0.08 10*3/uL 0.01-0.07 H = 704-7) Lab Interpretation Abnormal (test code = 21727-8) [facility] RAPID TESTING[facility]2021-04-26 19:33:11 Test Item Value Reference Range Interpretation Comments SARS-CoV-2 Rapid ID NOW Not Detected Not Detected (test code = 72424-0) DIEGO (test code = DIEGO) ID NOW COVID-19 Assay is an isothermal nucleic acid amplification test intended for the qualitative detection of nucleic acid from SARS-CoV-2 viral RNA in nasopharyngeal (DOG CONTROL OFFICER) specimens. It is used under Emergency Use [...] indicated. Lab Interpretation Normal (test code = 91722-8) [facility] [place] RAPID TESTING)2021-04-26 19:33:11 Test Item Value Reference Range Interpretation Comments SARS-CoV-2 Rapid ID NOW Not Detected Not Detected (test code = 24645-0) DIEGO (test code = DIEGO) ID NOW COVID-19 Assay is an isothermal nucleic acid amplification test intended for the qualitative detection of nucleic acid from SARS-CoV-2 viral RNA in nasopharyngeal (DOG CONTROL OFFICER) specimens. It is used under Emergency Use [...] indicated. Lab Interpretation Normal (test code = 99364-1) [facility] [id number] 19:30:19 1. ?No acute intracranial abnormality. ? [...] reviewed this study and agree with the abovereport.[facility] C[facility] SPINE WO [id number] 19:30:19 1. ?No acute intracranial abnormality. ? [...] reviewed this study and agree with the abovereport.[facility] CONTRAST 2021-04-26 19:30:19 1. ?No acute intracranial abnormality. ? 2. ?No acute osseous abnormality of the cervical spine. ? Preliminary Report Dictated by Resident: Peter Young I, Makenna Ervin MD., have reviewed this [...] reviewed this study and agree with the abovereport.[facility] WO [id number] 19:30:19 1. ?No acute intracranial abnormality. ? [...] reviewed this study and agree with the abovereport.[facility]2021-[facility]-06 19:29:14 Test Item Value Reference Range Interpretation Comments APPEARANCE (test code = Clear Clear 3306461038) COLOR (test code = Yellow Yellow 1459723687) PH (test code = 4.8-8.0 8740544555) SP GRAVITY (test code = 1.003-1.030 2202953653) GLU U QUAL (test code = Normal Normal 9700880636) BLOOD (test code = Negative Negative 8656801736) KETONES (test code = Negative Negative 1000892411) PROTEIN (test code = Negative Negative 2887-8) UROBILIN (test code = Normal Normal 3817784039) BILIRUBIN (test code = Negative Negative 2088986412) NITRITE (test code = Negative Negative 1158267217) LEUK DAKSHA (test code = Negative Negative 0987554452) RBC/HPF (test code = See_Comment [Autom ated message] 0400484263) The system [employer] generated this result transmitted ref erence range: 0 - 3 HP F. The reference range was not used to int erpret this result as normal/abnormal . WBC/HPF (test code = See_Comment [Autom ated message] 2708351917) The system [employer] generated this result transmitted ref erence range: 0 - 5 HP F. The reference range was not used to int erpret this result as normal/abnormal . BACTERIA (test code = Few Negative A 5869430952) SQ EPITH (test code = HPF 9264231543) Lab Interpretation (test Abnormal code = 63720-8) [facility]21-[facility]-06 19:29:14 Test Item Value Reference Range Interpretation Comments APPEARANCE (test code = Clear Clear 2137966340) COLOR (test code = Yellow Yellow 5471131288) PH (test code = 4.8-8.0 1621886388) SP GRAVITY (test code = 1.003-1.030 6671427262) GLU U QUAL (test code = Normal Normal 1747748853) BLOOD (test code = Negative Negative 8797373939) KETONES (test code = Negative Negative 1592669142) PROTEIN (test code = Negative Negative 2887-8) UROBILIN (test code = Normal Normal 1985876986) BILIRUBIN (test code = Negative Negative 4689388362) NITRITE (test code = Negative Negative 3424542198) LEUK DAKSHA (test code = Negative Negative 3152925598) RBC/HPF (test code = See_Comment [Autom ated message] 7768100076) The system [employer] generated this result transmitted ref erence range: 0 - 3 HP F. The reference range was not used to int erpret this result as normal/abnormal . WBC/HPF (test code = See_Comment [Autom ated message] 0229692011) The system [employer] generated this result transmitted ref erence range: 0 - 5 HP F. The reference range was not used to int erpret this result as normal/abnormal . BACTERIA (test code = Few Negative A 5359054312) SQ EPITH (test code = HPF 1886532104) Lab Interpretation (test Abnormal code = 94004-6) [facility] [id number] 18:24:00 Test Item Value Reference Range Interpretation Comments POCT PREG (test code = 1605) negative On board controls acceptable with present C Line (test code = 3574) POCT PREG LOT # (test code = 3575) [id number] POCT PREG TEST DATE (test 08/20/2022 code = 3576) Lab Interpretation (test code = Normal 31719-8) [facility] [id number] 18:24:00 Test Item Value Reference Range Interpretation Comments POCT PREG (test code = 1605) negative On board controls acceptable with present C Line (test code = 3574) POCT PREG LOT # (test code = 3575) [id number] POCT PREG TEST DATE (test 08/20/2022 code = 3576) Lab Interpretation (test code = Normal 34652-5) [facility]2021-[facility]-23 00:35:10 Test Item Value Reference Range Interpretation Comments APPEARANCE (test code = Clear Clear 9038261392) COLOR (test code = Yellow Yellow 7236512040) PH (test code = 4.8-8.0 6257387883) SP GRAVITY (test code = 1.003-1.030 2124557583) GLU U QUAL (test code = Normal Normal 9847893600) BLOOD (test code = 1+ Negative A 2182486283) KETONES (test code = Negative Negative 7733352725) PROTEIN (test code = Negative Negative 2887-8) UROBILIN (test code = Normal Normal 5082748441) BILIRUBIN (test code = Negative Negative 1217713196) NITRITE (test code = Negative Negative 9149395021) LEUK DAKSHA (test code = 75/uL Negative A 3882712661) RBC/HPF (test code = See_Comment H [Autom ated message] 4023193288) The system [employer] generated this result transmitted ref erence range: 0 - 3 HP F. The reference range was not used to int erpret this result as normal/abnormal . WBC/HPF (test code = See_Comment H [Autom ated message] 5486067948) The system [employer] generated this result transmitted ref erence range: 0 - 5 HP F. The reference range was not used to int erpret this result as normal/abnormal . BACTERIA (test code = Few Negative A 6649508963) SQ EPITH (test code = HPF 9363057380) Lab Interpretation (test Abnormal code = 34462-1) [facility] [id number] 00:20:00 Test Item Value Reference Range Interpretation Comments POCT PREG (test code = 1605) negative On board controls acceptable with present C Line (test code = 3574) POCT PREG LOT # (test code = 3575) [id number] POCT PREG TEST DATE (test code = 3576) Lab Interpretation (test code = Normal 12156-8) [facility] STREP SCREEN FOR GROUP [id number] 17:29:00 Test Item Value Reference Range Interpretation Comments Streptococcus pyogenes (group A) Negative Negative antigen (test code = 68435-1) Lab Interpretation (test code = Normal 98208-4) [facility]. METABOLIC PANEL (57571)2020-04-29 17:27:00 Test Item Value Reference Range Interpretation Comments NA (test code = 137 mmol/L 135-145 4297547367) K (test code = 4.7 mmol/L 3.5-5 1274326945) CL (test code = 103 mmol/L 98-108 1436435801) CO2 TOTAL (test code = 23 mmol/L 23-31 9689350231) AGAP (test code = 2-16 7351084610) BUN (test code = 5 mg/dL 7-23 L 7449207645) GLUCOSE (test code = 93 mg/dL 70-110 4729105793) CREATININE (test code = 0.61 mg/dL 0.5-1.04 4763363664) TOTAL BILI (test code = 0.3 mg/dL 0.1-1.3 7434732505) CALCIUM (test code = 9.9 mg/dL 8.6-10.6 7273486398) T PROTEIN (test code = 7.5 g/dL 6.3-8.2 1563748889) ALBUMIN (test code = 4.3 g/dL 3.5-5 1777813828) ALK PHOS (test code = 82 U/L 34-122 5158373670) ALTv (test code = 23 U/L 5-35 1742-6) AST(SGOT) (test code = 36 U/L 13-40 7522086703) eGFR Calculation mL/min/1.73m2 (Non-) (test code = 4326984550) eGFR Calculation mL/min/1.73m2 () (test code = 1852689516) DIEGO (test code = DIEGO) Association of [...] tests). Lab Interpretation Abnormal (test code = 40595-8) [facility] KNEE 3 VW [id number] 17:09:41 No radiographic evidence of osteomyelitis. Preliminary [...] erosion. Surgical clips at theamputation site visualized. [facility], Radiant Results Inft User - 04/29/2020 12:10 [...] agree with theabove report.[facility] WITH [id number] 17:07:00 Test Item Value Reference Range Interpretation Comments WBC (test code = See_Comment H [Automated 0646-2) message] The sy stem which generated this result transmitted reference range : 4.30 - 11.10 10*3/?L. The reference range was not used to interpret this result as normal/abnormal . RBC (test code = See_Comment [Automated 966-8) message] The sy stem which generated this [...] RDW-SD (test code = 44.5 fL 39-49.9 41089-8) RDW-CV (test code = 13.1 % 12-15.5 788-0) PLT (test code = See_Comment H [Automated 777-3) message] The sy stem which generated this result transmitted reference range : 166 - 358 10*3/ ?L. The reference r dinora was not used to interpret this result as normal/abnormal . MPV (test code = 9.6 fL 9.5-12.9 20726-1) NRBC/100 WBC (test See_Comment [Automat ed code = 0271669065) message] The system which generated this result transmitted reference range : 0.0 - 10.0 /100 WBCs. The refer ence range was not u sed to interpret th is result as normal/abnormal . NRBC x10^3 (test code <0.01 See_Comment [Auto mated = 7280432145) message] The s ystem which generated this result transmitted reference range : 10*3/?L. The reference range was not used to interpret this result as normal/abnormal . GRAN MAT (NEUT) % 59.4 % (test code = 770-8) IMM GRAN % (test code 0.70 % = 7834896700) LYMPH % (test code = 31.3 % 736-9) MONO % (test code = 5.8 % 5905-5) EOS % (test code = 2.0 % 713-8) BASO % (test code = 0.8 % 706-2) GRAN MAT x10^3(ANC) 7.54 10*3/uL 1.88-7.09 H (test code = 9237869890) IMM GRAN x10^3 (test 0.09 10*3/uL 0-0.06 H code = 7043313129) LYMPH x10^3 (test code 3.98 10*3/uL 1.32-3.29 H = 731-0) MONO x10^3 (test code 0.74 10*3/uL 0.33-0.92 = 742-7) EOS x10^3 (test code = 0.25 10*3/uL 0.03-0.39 711-2) BASO x10^3 (test code 0.10 10*3/uL 0.01-0.07 H = 704-7) Lab Interpretation Abnormal (test code = 26258-6) [facility] [id number] 16:24:00 Test Item Value Reference Range Interpretation Comments POCT PREG (test code = 1605) negative POCT PREG LOT # (test code = 3575) [id number] POCT PREG TEST DATE (test 03/20/2021 code = 3576) Lab Interpretation (test code = Normal 99555-2) [facility] [id number] 04:24:00 Test Item Value Reference Range Interpretation Comments POCT PREG (test code = 1605) negative On board controls acceptable with yes C Line (test code = 3574) POCT PREG LOT # (test code = 3575) [id number] POCT PREG TEST DATE (test 08/20/2020 code = 3576) Lab Interpretation (test code = Normal 05870-2) [facility] [id number] 13:26:00 Test Item Value Reference Range Interpretation Comments HEMOGLOBIN A1C (BEAKER) (test code = 5.2 % 4.3-6.1 368) CBC W/PLT COUNT & AUTO [id number] 09:42:00 Test Item Value Reference Range Interpretation [...] MORPHOLOGY (BEAKER) (test code Normal = 762) [id number] 07:11:00 Test Item Value Reference Range Interpretation Comments MAGNESIUM (BEAKER) (test code = 1.5 mg/dL 1.6-2.6 L 627) BASIC METABOLIC [id number] 07:11:00 Test Item Value Reference Range Interpretation [...] NOT APPLICABLE FOR DIALYSIS PATIEN TS. LIPID [id number] 07:11:00 Test Item Value Reference Range Interpretation [...] Borderline 130-159 High 160-189 Very High >=190TROPONIN [id number] 06:34:00 Test Item Value Reference Range Interpretation [...] acidosis, acute neurological disease, and persistent tachyarrhythmia.TROPONIN [id number] 23:58:00 Test Item Value Reference Range Interpretation [...]
--- NOTE | 2021-10-08 08:03 | RAD REPORT ---
EXAM DESCRIPTION: US - Pelvis Complete - 10/08/2021 7:55 am CLINICAL HISTORY: pelvic pain, eval for TOA COMPARISON: Transvaginal Study Probe dated 04/07/2017 FINDINGS: The uterus is normal in size, shape and echotexture. The uterus measures 7.1 cm The endometrial stripe measures 6 mm, within normal limits Both ovaries are normal in size, shape and echotexture. The right ovary measures 2.4 x 1.7 x 1.8 cm with volume of 4 mL. The left ovary measures 3.1 x 1.8 x 2.1 cm with volume of 6 mL. Simple appearin g left ovarian cyst measuring 1.8 cm Normal Doppler blood flow was demonstrated to both ovaries. No significant pelvic ascites. IMPRESSION: Bilateral ovarian blood flow is present. Exam is within normal limits for age.
[2021-10-08 08:34] LABS: Hematocrit 38.5 % (36.0-45.0); Lymphocytes % 15.8 % (15.3-44.8); MPV 7.8 fL (7.6-11.3)
[2021-10-08 08:35] LABS: Urine Blood 3+ (Negative); Urine Glucose Trace (Negative); Urine Protein 3+ (Negative); Urine Specific Gravity >=1.030 (1.005-1.030); Urine pH 5.5 (5.0-7.0)
[2021-10-08 08:51] LABS: Urine Amorphous Sediment 3+ /HPF (NONE SEEN); Urine Bacteria 20-50 /HPF (<20)
[2021-10-08 08:56] LABS: BUN Blood Urea Nitrogen 5 mg/dL (7-18); Bicarbonate 21 mmol/L (21-32); Glucose Level 93 mg/dL (74-106); Potassium 3.6 mmol/L (3.5-5.1); Sodium Level 140 mmol/L (136-145)
[2021-10-08] MEDS ORDERED: MORPHINE 4 MG/ML SYR ONE (09:03)
--- NOTE | 2021-10-08 09:36 | RAD REPORT ---
EXAM DESCRIPTION: CTAbdomen Pelvis W Contrast - 10/08/2021 9:18 am CLINICAL HISTORY: lower abd/pelvic pain;Nausea / vomiting COMPARISON: Abdomen Pelvis W Contrast dated 02/06/2021; Abdomen Pelvis W Contrast dated 11/14/2020 ; Abdomen Pelvis W Contrast dated 04/18/2020; Abdomen Pelvis W Contrast dated 08/12/2018 TECHNIQUE: CT of the abdomen and pelvis was performed. All CT scans are performed using dose optimization technique as appropriate and may include automated exposure control or mA/KV adjustment according to patient size. FINDINGS: Lower chest: Mild circumferential thickening of the distal esophagus. Liver: Too small to characterize liver lesions which are unchanged and likely benign. Biliary: No biliary ductal dilatation. Stomach: No significant focal abnormality. Duodenum: Duodenum diverticulum. Pancreas: No significant abnormality. Spleen: No significant abnormality. Adrenal: No suspicious lesions. Kidney/ureter: No hydronephrosis. No renal calculi. Retroperitoneum: No retroperitoneal adenopathy. Vascular: No aneurysm. Bowel: Wall thickening of the ascending and transverse colon.. Normal appendix. No bowel obstruction. Peritoneum: No ascites or free air. Bladder: Grossly unremarkable. Reproductive: No adnexal masses. Bones: No acute fracture. Other: n/a IMPRESSION: Wall thickening of the ascending and transverse colon may reflect a colitis.
[2021-10-08] MEDS ORDERED: CEFTRIAXONE 1000 MG/VIAL ONE (09:59)
[2021-10-08] MEDS ORDERED: NA CHLORIDE 0.9% 100 ML IV ONE (10:00)
[2021-10-08] MEDS ORDERED: METRONIDAZOLE 500mg IVPB 500 MG/100 ML BAG IV ONE (10:00)
--- NOTE | 2021-10-08 10:00 | ER ---
Nurse's Notes [facility] Name: Natasha Spann Age: 36 yrs Sex: Female : 1985 Arrival Date: 10/08/2021 Time: 07:19 Bed 19 Private MD: Diagnosis: Infectious gastroenteritis and colitis, unspecified Presentation: 10/08 07:28 Chief complaint: Patient states: she woke up this morning around 0500 with severe ap3 pelvic pain. PT reports recent diagnosis of pelvic inflammatory disease. Patient states that she has been nauseous with the pain. Coronavirus screen: chills, congestion, diarrhea, nausea. Ebola Screen: No symptoms or risks identified at this time. Initial Sepsis Screen: Does the patient meet any 2 criteria? No. Patient's initial sepsis screen is negative. Does the patient have a suspected source of infection? No. Patient's initial sepsis screen is negative. Risk Assessment: Do you want to hurt yourself or someone else? Patient reports no desire to harm self or others. Onset of symptoms was October 08, 2021. 07:28 Method Of Arrival: Ambulatory ap3 07:28 Acuity: EMILY 3 ap3 Triage Assessment: 07:32 General: Appears uncomfortable, Behavior is cooperative, anxious. Pain: Complains of ap3 pain in groin Pain currently is 6 out of 10 on a pain scale. at worst was 10 out of 10 on a pain scale. Is intermittent. Neuro: Level of Consciousness is awake, alert, obeys commands, Oriented to person, place, time, situation, Appropriate for age Gait is steady, Speech is normal. Cardiovascular: Patient's skin is warm and dry. Respiratory: Airway is patent Respiratory effort is even, unlabored, Respiratory pattern is regular, symmetrical. : Reports discharge, clear vaginal discharge reported by pt. 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 - Social history:: Smoking status: Patient reports the use of cigarette tobacco products, smokes one pack cigarettes per day. - Family history:: not pertinent. - Hospitalizations: : No recent hospitalization is reported. Screenin:35 Abuse screen: Denies threats or abuse. Nutritional screening: No deficits noted. ap3 Tuberculosis screening: No symptoms or risk factors identified. Fall Risk Fall in past 12 months (25 points). Secondary diagnosis (15 points) impaired mobility, IV access (20 points). Ambulatory Aid- None/Bed Rest/Nurse Assist (0 pts). Gait- Normal/Bed Rest/Wheelchair (0 pts) Mental Status- Oriented to own ability (0 pts). Total Steve Fall Scale indicates High Risk Score (45 or more points). Fall prevention measures have been instituted. Side Rails Up X 2 Placed Close to Nursing Station Frequent Obs/Assessments Occuring As available patient and family educated on Fall Prevention Program and Strategies. Assessment: 07:36 General: see triage assessment. ap3 07:37 General: pt provided with urine specimen cup and proper education on clean catch urine ap3 collection. Patient verbalized understanding.. 08:37 Reassessment: Patient and/or family updated on plan of care and expected duration. Pain ap3 level reassessed. Patient is alert, oriented x 3, equal unlabored respirations, skin warm/dry/pink. Patient states symptoms have not improved. 09:54 Reassessment: Patient and/or family updated on plan of care and expected duration. Pain ap3 level reassessed. Patient is alert, oriented x 3, equal unlabored respirations, skin warm/dry/pink. 10:40 Reassessment: awaiting completion of fluids prior to discharge. ap3 Vital Signs: 07:28 BP 121 / 72; Pulse 76; Resp 18; Temp 98.0; Pulse Ox 100% ; Weight 86.18 kg; Height 5 ap3 ft. 8 in. (172.72 cm); Pain 6/10; 08:38 BP 104 / 58; Pulse 57; Pulse Ox 100% on R/A; ap3 09:54 BP 119 / 64; Pulse 51; Resp 17; Pulse Ox 100% ; ap3 11:23 Pulse 58; Pulse Ox 100% ; ap3 07:28 Body Mass Index 28.89 (86.18 kg, 172.72 cm) ap3 ED Course: 07:19 Patient arrived in ED. as 07:21 Gregor Santo MD is Attending Physician. rn 07:31 Triage completed. ap3 07:36 Arm band placed on right wrist. ap3 07:36 Patient has correct armband on for positive identification. Placed in gown. Bed in low ap3 position. Call light in reach. Side rails up X 1. Pulse ox on. NIBP on. Door closed. Noise minimized. 07:55 US Pelvis Complete In Process Unspecified. EDMS 08:21 Inserted saline lock: 22 gauge in right wrist, using aseptic technique. Blood collected.ap3 08:46 Angle Beatty, RN is Primary Nurse. ap3 09:18 CT Abd/Pelvis - IV Contrast Only In Process Unspecified. EDMS 11:29 No provider procedures requiring assistance completed. IV discontinued, intact, ap3 bleeding controlled, No redness/swelling at site. Pressure dressing applied. Administered Medications: 09:04 Drug: morphine 4 mg Route: IVP; Site: right wrist; ww 10:37 Follow up: Response: No adverse reaction; Pain is decreased ap3 10:29 Drug: Rocephin (cefTRIAXone) 1 grams Route: IV; Rate: calculated rate; Site: right ap3 wrist; 10:36 Follow up: IV Status: Completed infusion ap3 10:36 Drug: Flagyl (metroNIDAZOLE) 500 mg Volume: 100 ml; Route: IVPB; Rate: 200 ml/hr; ap3 Infused Over: 30 mins; Site: right wrist; 11:30 Follow up: IV Status: Completed infusion ap3 Outcome: 10:00 Discharge ordered by . rn 11:29 Discharged to home ambulatory. ap3 11:29 Condition: good 11:29 Discharge instructions given to patient, Instructed on discharge instructions, follow up and referral plans. medication usage, Demonstrated understanding of instructions, follow-up care, medications, Prescriptions given X 3. 11:29 Patient left the ED. ap3 Signatures: Dispatcher [employer] EDMS Hailey Yadav as Gregor Santo MD MD rn Prokisch, Amanda, RN RN ap3 Maribell Brizuela RN RN ww
--- NOTE | 2021-10-08 10:00 | EDPHYS ---
Physician Documentation [facility] Name: Natasha Spann Age: 36 yrs Sex: Female : 1985 Arrival Date: 10/08/2021 Time: 07:19 Bed 19 Private MD: ED Physician Gregor Santo HPI: 10/08 07:30 This 36 yrs old Female presents to ER via Unassigned with complaints of Abdominal and rn pelvic Pain. 07:30 The patient presents with abdominal pain in the lower abdomen. Onset: The rn symptoms/episode began/occurred 1 month(s) ago. The symptoms radiate to back. Associated signs and symptoms: Pertinent positives: nausea and vomiting, diarrhea, nausea, vaginal discharge, vomiting, Pertinent negatives: fever. The symptoms are described as crampy. Modifying factors: The symptoms are alleviated by nothing, the symptoms are aggravated by movement, pressure, touching the area. Severity of pain: At its worst the pain was moderate in the emergency department the pain is unchanged. The patient has experienced similar episodes in the past. The patient has been recently seen by a physician:. Reports 1 month to 2 months of lower abd pain, diagnosed with PID, put on abx, felt like made her sick so stopped taking them. Reports subjective fever and chills. Reports clear vaginal discharge. . 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 - Social history:: Smoking status: Patient reports the use of cigarette tobacco products, smokes one pack cigarettes per day. - Family history:: not pertinent. - Hospitalizations: : No recent hospitalization is reported. ROS: 07:30 Constitutional: + fever and chills Eyes: Negative for injury, pain, redness, and physician internist, Neck: Negative for injury, pain, and swelling, Cardiovascular: Negative for chest pain, palpitations, and edema, Respiratory: Negative for shortness of breath, cough, wheezing, and pleuritic chest pain, Abdomen/GI: + lower abd pain/nausea/vomiting Back: Negative for injury and pain, : + clear vaginal discharge. MS/Extremity: Negative for injury and deformity, Skin: Negative for injury, rash, and discoloration, Neuro: Negative for headache, weakness, numbness, tingling, and seizure. Exam: 07:30 Constitutional: This is a well developed, well nourished patient who is awake, alert, rn appears uncomfortable Head/Face: Normocephalic, atraumatic. Eyes: Periorbital areas with no swelling, redness, or edema. Cardiovascular: Regular rate and rhythm. No pulse deficits. Respiratory: No increased work of breathing, no retractions or nasal flaring. Abdomen/GI: soft, + suprapubic tenderness without rebound or guarding. Skin: Warm, dry MS/ Extremity: Pulses equal, no cyanosis. Neuro: Awake and alert, GCS 15 Vital Signs: 07:28 BP 121 / 72; Pulse 76; Resp 18; Temp 98.0; Pulse Ox 100% ; Weight 86.18 kg; Height 5 ap3 ft. 8 in. (172.72 cm); Pain 6/10; 08:38 BP 104 / 58; Pulse 57; Pulse Ox 100% on R/A; ap3 09:54 BP 119 / 64; Pulse 51; Resp 17; Pulse Ox 100% ; ap3 11:23 Pulse 58; Pulse Ox 100% ; ap3 07:28 Body Mass Index 28.89 (86.18 kg, 172.72 cm) ap3 MDM: 07:21 Patient medically screened. rn 07:57 ED course: Per U/S tech, no acute findings on ultrasound, no signs of TOA. . rn 09:58 Differential diagnosis: appendicitis, diverticulitis, Endometriosis, non-specific abd rn pain, Ovarian Torsion, Pelvic Inflammatory Disease, Ureterolithiasis, urinary tract infection, colitis. Data reviewed: vital signs, nurses notes, lab test result(s), radiologic studies, CT scan, and as a result, I will discharge patient. Counseling: I had a detailed discussion with the patient and/or guardian regarding: the historical points, exam findings, and any diagnostic results supporting the discharge/admit diagnosis, lab results, radiology results, the need for outpatient follow up, to return to the emergency department if symptoms worsen or persist or if there are any questions or concerns that arise at home. 10/08 07:30 Order name: CBC with Diff; Complete Time: 08:52 rn 10/08 07:30 Order name: Basic Metabolic Panel; Complete Time: 09:50 rn 10/08 07:30 Order name: Urine Microscopic Only; Complete Time: 08:52 rn 10/08 08:35 Order name: Urine Dipstick-Ancillary; Complete Time: 08:52 EDMS 10/08 08:38 Order name: Urine --Ancillary (enter results); Complete Time: 08:52 10/08 08:53 Order name: Urine Culture [facility] 10/08 07:30 Order name: IV Start; Complete Time: 08:29 rn 10/08 07:30 Order name: Urine Dipstick-Ancillary (obtain specimen); Complete Time: 08:37 rn 10/08 07:30 Order name: Urine Test (obtain specimen); Complete Time: 08:37 rn 10/08 07:30 Order name: US Pelvis Complete; Complete Time: 08:23 rn 10/08 07:30 Order name: CT Abd/Pelvis - IV Contrast Only; Complete Time: 09:50 rn Administered Medications: 09:04 Drug: morphine 4 mg Route: IVP; Site: right wrist; ww 10:37 Follow up: Response: No adverse reaction; Pain is decreased ap3 10:29 Drug: Rocephin (cefTRIAXone) 1 grams Route: IV; Rate: calculated rate; Site: right ap3 wrist; 10:36 Follow up: IV Status: Completed infusion ap3 10:36 Drug: Flagyl (metroNIDAZOLE) 500 mg Volume: 100 ml; Route: IVPB; Rate: 200 ml/hr; ap3 Infused Over: 30 mins; Site: right wrist; 11:30 Follow up: IV Status: Completed infusion ap3 Disposition Summary: 10/08/21 10:00 Discharge Ordered Location: Home rn Problem: new rn Symptoms: have improved rn Condition: Stable rn Diagnosis - Infectious gastroenteritis and colitis, unspecified rn Followup: rn - With: Private Physician - When: As needed - Reason: Recheck today's complaints, Re-evaluation by your physician Discharge Instructions: - Discharge Summary Sheet rn - Colitis rn Forms: - Medication Reconciliation Form rn - Thank You Letter rn - Antibiotic rn endocrinology - Prescription Opioid Use rn Prescriptions: - ondansetron 4 mg Oral tablet,disintegrating - take 1 tablet by ORAL route every 8 hours As needed; 15 tablet; Refills: 0, rn Product Selection Permitted - Cephalexin 500 mg Oral Capsule - take 1 capsule by ORAL route every 12 hours for 10 days; 20 capsule; Refills: rn 0, Product Selection Permitted - Flagyl 500 mg Oral Tablet - take 1 tablet by ORAL route every 8 hours for 10 days; 30 tablet; Refills: 0, rn Product Selection Permitted Signatures: Dispatcher [employer] EDGregor Aden MD MD rn Prokisch, Amanda, RN RN ap3 Maribell Brizuela RN RN ww
[2021-10-08 11:37] VITALS: TEMP 98; O2SAT 100
[2021-10-08 11:39] VITALS: BP 119/64
== END 2021-10-08 11:29 | disposition home or self-care (01) ==
LOC: ER 07:17
DX: A09 Infectious gastroenteritis and colitis, unspecified (principal); F31.9 Bipolar disorder, unspecified; Z88.1 Allergy status to other antibiotic agents; Z88.8 Allergy status to other drugs, medicaments and biological substances
CPT/HCPCS: 36415; 74177; 76856; 80048; 81003; 81015; 81025; 85025; 87086; 87088; 96365; 96375; 99284; Q9967

== ENCOUNTER 2022-01-05 10:25 | Emergency (ER) | payer SELFPAY ==
--- OUTSIDE RECORDS SUMMARY | 2022-01-05 10:31 | XMS REPORT | Continuity of Care Document ---
:1985 Author Organization [facility] t Address [address] [place] [address] Care Team Providers Name Role Phone Freddy ARANGO Primary Care Physician Geeta ALDANA Attending Clinician Unavailable Ryder DE LEON B Attending Clinician Reid BAKER Attending Clinician Unavailable Tevin EQUAL OPPORTUNITY REPRESENTATIVE, G Attending Clinician Doctor Unassigned, Name Attending Clinician Unavailable Steffany MAURER Attending Clinician Unavailable Zeina QUIROZ S Attending Clinician Yovanny ARRIETA Attending Clinician Singer ANGEL Attending Clinician Lotus MCGUIRE R Attending Clinician Concepcion DE LEON Attending Clinician Maribel Plasencia Attending Clinician [place] Attending Clinician Unavailable Steffany MAURER Admitting Clinician Unavailable Geeta ALDANA Admitting Clinician Unavailable [place] Admitting Clinician Unavailable Payers Payer Name Policy Type Policy Number Effective Date Expiration Date [facility] [id number] 2019 WOMEN 00:00:00 MEDICAID SSI PENDING 2021 2021 PENDING 00:00:00 00:00:00 Problems Condition Condition Condition Status Onset Resolution Last Treating Co mments Source Name Details Category Date Date Treatment Clinician Date Migraine Migraine Disease Active Unive rs without without 5-25 ity of status status 00:00: [place] migrainosu migrainosu 00 Me dical s, not s, not Branch intractabl intractabl e, e, unspecifie unspecifie d migraine d migraine type type Gastroesop Gastroesop Disease Active U nivers hageal hageal 5-25 ity of reflux reflux 00:00: [place] disease, disease, 00 Medica l esophagiti esophagiti Br anch s presence s presence not not specified specified Chest pain Chest pain Disease Active 2016-[address] [facility] Pelvic Pelvic Disease [...] In ty to Comments) 09-14 joint [facility] adverse 00:00: pain Medical reaction 00 Center s Bupropio Propensi Active Other (See 2016-[address] [facility] ty to Comments) 09-14 tions [facility] adverse 00:00: [facility] reaction 00 Center s Levoflox Propensi Active Method i acin ty to 8 [facility] adverse 00:00: Hosp[facility] reaction 00 l s to drug Bupropio Propensi Active Method i n Hcl ty to 8 [facility] adverse 00:00: Hospita reaction 00 l [...] He alth Maternal grandmother Coronary artery [facility] Natural mother [facility]ary [facility] Maternal aunt Coronary artery [facility] Social History Social Habit Start Date Stop Date Quantity Comments Source History of tobacco 1992-02-15 Cigarette Smoker University of use 00:00:00 [facility] Exposure to Not sure University of SARS-CoV-2 (event) [facility] Alcohol intake 2021-10-10 2021-10-10 0 /d University of 00:00:00 00:00:00 [facility] Cigarettes smoked 2018-02-14 2018-02-14 Univers ity of current (pack per 00:00:00 00:00:00 ) - Reported Branch Tobacco use and 2018-02-14 2018-02-14 Never used Universit y of exposure 00:00:00 00:00:00 [facility] Cigarette 2015-04-20 2015-04-20 [facility] pack-years 00:00:00 00:00:00 Alcohol Comment 2015-04-16 2015-04-16 last drink Raghu Thompson alth 00:00:00 00:00:00 02/2015 [birth year] Universit y of 00:00:00 00:00:00 [facility] Smoking Status Start Date Stop Date Source Current every day smoker 2018-02-14 00:00:00 Uni versity of [facility] Never smoker [facility] Medications Ordered Filled Start Stop Current Ordering Indication Dosage Frequency Signature Comments Components Source Medication Medication Date Date Medication? Clinician (SIG) Name Name ibuprofen 2021- No 600mg 600 mg, Uni vers (IBU) 2-20 02-20 Oral, ity of tablet 600 18:30: 17:31 ONCE, 1 [place] mg 00 :00 dose, On Medical Sun Branch 10/10/21 at 1230, PUSHPA butalbital- 2021- No 1{tbl} 1 tablet, Univers acetaminoph 2-20 -20 Oral, ity of en-caff 18:30: 17:31 ONCE, 1 [place] (ESGIC) 00 :00 dose, On Medical 50-325-40 Sun Branch mg tablet 1 10/10/21 at tablet 1230, Routine diphenhydrA 2021- No 25mg 25 mg, Uni vers MINE 2-20 -20 Oral, ity of (BENADRYL) 18:30: 17:31 ONCE, 1 [place] tablet 25 00 :00 dose, On Medica l mg Sun Branch 10/10/21 at 1230, PUSHPA metoclopram 2021- No 10mg 10 mg, Uni vers arianne HCl -10 10-20 Oral, ity of (REGLAN) 18:30: 17:30 ONCE, 1 [place] tablet 10 00 :00 dose, On Medica l mg Sun Branch 10/10/21 at 1230, Routine butalbital- Yes [id number] 1{tbl} Take 1 Univers acetaminoph 2-20 tablet by ity of en-caff 00:00: mouth [place] 50-325-40 00 every 6 Medical mg tablet (six) Branch hours as needed for Pain (scale 7-10). HYDROcodone 2021- No 1{tbl} 1 tablet, Univers -acetaminop 09-17 Oral, ity of hen (NORCO) 05:15: 04:19 ONCE, 1 [place] 10-325 mg 00 :00 dose, On Medica l tablet u Branch tablet 09/16/21 at 2315, Routine acetaminoph 0 Yes [id number] 1{tbl} Take 1 Un tracee en-codeine 1-28 tablet by ity of 300-30 mg 00:00: mouth [place] tablet 00 every 4 Medical (four) Branch hours as needed for Pain (scale 4-6). Indication s: acute pain acetaminoph Yes [id number] 1{tbl} Take 1 Un tracee en-codeine 1-28 tablet by ity of 300-30 mg 00:00: mouth [place] tablet 00 every 4 Medical (four) Branch hours as needed for Pain (scale 4-6). Indication s: acute pain acetaminoph Yes [id number] 1{tbl} Take 1 Un tracee en-codeine 1-28 tablet by ity of 300-30 mg 00:00: mouth [place] tablet 00 every 4 Medical (four) Branch hours as needed for Pain (scale 4-6). Indication s: acute pain acetaminoph Yes [id number] 1{tbl} Take 1 Un tracee [...] 09/15/21 at 1515, PUSHPA iopamidol 2021- No [id number] 100mL 100 mL, Univers (ISOVUE 09-15 Intravenou [...] 2021- No 4mg 4 mg, Slow Un traece injection 4 09-15 IV Push, ity of mg 20:15: 19:21 ONCE, 1 [place] 00 :00 dose, On Medical Wed Branch 09/15/21 at 1415, STAT NaCl 0.9% No 1000mL at 999 Uni vers (NS) bolus 09-15 mL/hr, ity of infusion 19:45: 19:59 1,000 mL, [place] as 1,000 mL 00 :00 IV Medical Infusion, Branch ONCE, 1 dose, On 09/15/21 at 1345, PUSHPA doxycycline 2021- No [id number] 100mg Take 1 Univers monohydrate 09-15 capsule by i ty of 100 mg 00:00: 05:59 mouth 2 [place] capsule 00 :00 (two) Medical times Branch daily for 14 days. metroNIDAZO 2021- No [id number] 500mg Take 1 Univers LE 500 mg 09-15 tablet by ity of tablet 00:00: 05:59 mouth 2 [place] 00 :00 (two) Medical times Branch daily for 14 days. doxycycline 2021- No [id number] 100mg Take 1 Univers monohydrate 09-15 capsule by i ty of 100 mg 00:00: 05:59 mouth 2 [place] capsule 00 :00 (two) Medical times Branch daily for 14 days. metroNIDAZO No [id number] 500mg Take 1 Univers LE 500 mg 09-15 tablet by ity of tablet 00:00: 05:59 mouth 2 [place] 00 :00 (two) Medical times Branch daily for 14 days. ketorolac No 30mg 30 mg, Unive rs (TORADOL) 08-22 Slow IV ity of injection 00:15: 23:13 Push, [place] 30 mg 00 :00 ONCE, 1 Medical dose, On Branch 08/21/21 at 1815, PUSHPA
Fa culty member approving Restricted medication : KATHERIN MAURER diazePAM No 2mg 2 mg, Slow Un tracee (VALIUM) 08-21 IV Push, ity of injection 2 23:30: 22:52 ONCE, 1 [place] mg 00 :00 dose, On Medical 08/21/21 Branch at 1730, STAT diphenhydrA No 25mg 25 mg, Uni vers MINE 08-21 Slow IV ity of (BENADRYL) 23:30: 22:45 Push, [place] injection 00 :00 ONCE, 1 Medical 25 mg dose, On Branch 08/21/21 at 1730, STAT metoclopram No 10mg 10 mg, Uni vers arianne HCl 08-21 Slow IV ity of (REGLAN) 23:30: 22:49 Push, [place] injection 00 :00 ONCE, 1 Medical 10 mg dose, On Branch 08/21/21 at 1730, PUSHPA NaCl 0.9% No 1000mL at 999 Uni vers (NS) bolus 08-21 mL/hr, ity of infusion 23:30: 23:45 1,000 mL, [place] 1,000 mL 00 :00 IV Medical Infusion, Branch ONCE, 1 dose, On 08/21/21 at 1730, STAT ondansetron Yes [id number] 4mg Take 1 Univers (ZOFRAN 08-21 tablet by ity of ODT) 4 mg 00:00: mouth [place] disintegrat 00 every 8 Medic al ing tablet (eight) Branch hours as needed for Nausea and Vomiting (N/V). ketorolac 2022-0 Yes [id number] 10mg Take 1 U nivers 10 mg 1-01 tablet by ity of tablet 00:00: mouth [place] 00 every 6 Medical (six) Branch hours as needed for Pain (scale 4-6). methocarbam 2022-0 Yes [id number] 500mg Take 1 Univers oL 500 mg 1-01 tablet by ity o f tablet 00:00: mouth 4 [place] 00 (four) Medical times Branch daily as needed for Pain (scale 4-6). ondansetron 2022-0 Yes [id number] 4mg Take 1 Univers (ZOFRAN 1-01 tablet by ity of ODT) 4 mg 00:00: mouth [place] disintegrat 00 every 8 Medic al ing tablet (eight) Branch hours as needed for Nausea and Vomiting (N/V). ketorolac 2022-0 Yes [id number] 10mg Take 1 U nivers 10 mg 1-01 tablet by ity of tablet 00:00: mouth [place] 00 every 6 Medical (six) Branch hours as needed for Pain (scale 4-6). methocarbam 2022-0 Yes [id number] 500mg Take 1 Univers oL 500 mg 1-01 tablet by ity o f tablet 00:00: mouth 4 [place] 00 (four) Medical times Branch daily as needed for Pain (scale 4-6). ondansetron 2022-0 Yes [id number] 4mg Take 1 Univers (ZOFRAN 1-01 tablet by ity of ODT) 4 mg 00:00: mouth [place] disintegrat 00 every 8 Medic al ing tablet (eight) Branch hours as needed for Nausea and Vomiting (N/V). ketorolac 2022-0 Yes [id number] 10mg Take 1 U nivers 10 mg 1-01 tablet by ity of tablet 00:00: mouth [place] 00 every 6 Medical (six) Branch hours as needed for Pain (scale 4-6). methocarbam 2022-0 Yes [id number] 500mg Take 1 Univers oL 500 mg 1-01 tablet by ity o f tablet 00:00: mouth 4 [place] 00 (four) Medical times Branch daily as needed for Pain (scale 4-6). ondansetron 2022-0 Yes [id number] 4mg Take 1 Univers (ZOFRAN 1-01 tablet by ity of ODT) 4 mg 00:00: mouth [place] disintegrat 00 every 8 Medic al ing tablet (eight) Branch hours as needed for Nausea and Vomiting (N/V). ketorolac 2022-0 Yes [id number] 10mg Take 1 U nivers 10 mg 1-01 tablet by ity of tablet 00:00: mouth [place] 00 every 6 Medical (six) Branch hours as needed for Pain (scale 4-6). methocarbam 2022-0 Yes [id number] 500mg Take 1 Univers oL 500 mg 1-01 tablet by ity o f tablet 00:00: mouth 4 [place] 00 (four) Medical times Branch daily as needed for Pain (scale 4-6). ondansetron 2022-0 Yes [id number] 4mg Take 1 Univers (ZOFRAN 1-01 tablet by ity of ODT) 4 mg 00:00: mouth [place] disintegrat 00 every 8 Medic al ing tablet (eight) Branch hours as needed for Nausea and Vomiting (N/V). ketorolac 2022-0 Yes [id number] 10mg Take 1 U nivers 10 mg 1-01 tablet by ity of tablet 00:00: mouth [place] 00 every 6 Medical (six) Branch hours as needed for Pain (scale 4-6). methocarbam 2022-0 Yes [id number] 500mg Take 1 Univers oL 500 mg 1-01 tablet by ity o f tablet 00:00: mouth 4 [place] 00 (four) Medical times Branch daily as needed for Pain (scale 4-6). ondansetron 2022-0 Yes [id number] 4mg Take 1 Univers (ZOFRAN 1-01 tablet by ity of ODT) 4 mg 00:00: mouth [place] disintegrat 00 every 8 Medic al ing tablet (eight) Branch hours as needed for Nausea and Vomiting (N/V). ketorolac 2022-0 Yes [id number] 10mg Take 1 U nivers 10 mg 1-01 tablet by ity of tablet 00:00: mouth [place] 00 every 6 Medical (six) Branch hours as needed for Pain (scale 4-6). methocarbam 2022-0 Yes [id number] 500mg Take 1 Univers oL 500 mg 1-01 tablet by ity o f tablet 00:00: mouth 4 [place] 00 (four) Medical times Branch daily as needed for Pain (scale 4-6). ketorolac 2020- No 30mg 30 mg, Unive rs (TORADOL) 04-26 Slow IV ity of injection 22:00: 20:57 Push, [place] 30 mg 00 :00 ONCE, 1 Medical dose, [facility] 04/26/21 at 1700, Routine
modular set crew member approving Restricted medication : BLAYNE HAIRSTON ketorolac 2020- No 30mg 30 mg, Unive rs (TORADOL) 04-26 Slow IV ity of injection 22:00: 20:57 Push, [place] 30 mg 00 :00 ONCE, 1 Medical dose, [facility] 04/26/21 at 1700, Routine
modular set crew member approving Restricted medication : BLAYNE HAIRSTON morpHINE 2020- No 4mg 4 mg, Slow Un tracee injection 4 04-26 IV Push, ity of mg 20:30: 19:28 ONCE, 1 [place] 00 :00 dose, [facility] 04/26/21 at Branch 1530, STAT morpHINE No 4mg 4 mg, Slow Un tracee injection 4 04-26 IV Push, ity of mg 20:30: 19:28 ONCE, 1 [place] 00 :00 dose, [facility] Medical 04/26/21 at Branch 1530, STAT ondansetron [...] 04/26/21 at 1330, STAT clonazePAM 2020- No [id number] 1mg Take 1 Univers (KLONOPIN) 04-17 tablet by ity of 1 mg tablet 00:00: 04:59 mouth 3 [place] 00 :00 (three) Medical times [place] daily for 5 days. clonazePAM 2020- No [id number] 1mg Take 1 Univers (KLONOPIN) 04-17 tablet by ity of 1 mg tablet 00:00: 04:59 mouth 3 [place] 00 :00 (three) Medical times [place] daily for 5 days. TOPIRAMATE 2020- No Take by Un tracee (TOPAMAX 04-12 mouth. ity of ORAL) 01:13: 00:00 [place] 52 :00 Medical Branch ARIPIPRAZOL 2020- No Take by U nivers E (ABILIFY 04-12 mouth. ity of ORAL) 01:13: 00:00 [place] 52 :00 Medical Branch FLUOXETINE 2020- No Take by Un tracee HCL (PROZAC 04-12 mouth. ity o f ORAL) 01:13: 00:00 [place] 52 :00 Medical Branch traMADoL 2019- No 50mg 50 mg, Univer s (ULTRAM) 04-29 Oral, ONCE ity of tablet 50 19:30: 18:35 NOW, 1 [place] mg 00 :00 dose, Wed Medical 04/29/20 at Branch 1430, Routine ketorolac 2019- No 15mg 15 mg, Unive rs (TORADOL) 04-29 Slow IV ity of injection 17:15: 16:31 Push, [place] 15 mg 00 :00 ONCE, 1 Medical dose, [facility] Branch 04/29/20 at 1215, PUSHPA
Fa culty member approving Restricted medication : AMARIS STALLINGS traMADoL 50 2019- Yes [id number] 50mg Take 1 Univ ers [...] Indication s: acute pain clindamycin 2019- No [id number] 450mg Take 3 Univers 150 mg 04-29 capsules ity of capsule 00:00: 04:59 by mouth 3 [place] 00 :00 (three) Medical times Branch daily for 10 days. ketorolac 2018- No 60mg 60 mg, Unive rs (TORADOL) 03-19 07-30 Intramuscu ity of injection 05:45: 04:35 [place], ONCE, [place] 60 mg 00 :00 1 dose, [facility] Branch 03/19/19 at 0045, PUSHPA
Fa culty member approving Restricted medication : Vonda AGUILA ibuprofen Yes [id number] 600mg Take 1 U nivers 600 mg 7-29 tablet by ity of tablet 00:00: mouth [place] 00 every 6 Medical (six) Branch hours as needed for Pain (scale 4-6). ibuprofen Yes [id number] 600mg Take 1 U nivers 600 mg 7-29 tablet by ity of tablet 00:00: mouth [place] 00 every 6 Medical (six) Branch hours as needed for Pain (scale 4-6). ibuprofen Yes [id number] 600mg Take 1 U nivers 600 mg 7-29 tablet by ity of tablet 00:00: mouth [place] 00 every 6 Medical (six) Branch hours as needed for Pain (scale 4-6). ibuprofen 2018- Yes [id number] 600mg Take 1 U nivers 600 mg 7-29 tablet by ity of tablet 00:00: mouth [place] 00 every 6 Medical (six) Branch hours as needed for Pain (scale 4-6). ibuprofen 2020- No [id number] 600mg Take 1 Univers 600 mg 7-29 [...] HCL ORAL 4-26 mouth. ity of 18:29: [place] [address] Medical Branch DULOXETINE Yes Take by Uni vers HCL 4-26 mouth. ity of (CYMBALTA 18:29: [place] ORAL) Medical Branch ARIPIPRAZOL Yes Take by Un tracee E (ABILIFY 4-26 mouth. ity of ORAL) 18:29: [place] [address] Medical Branch TRAZODONE Yes Take by Univ ers HCL 4-26 mouth. ity of (TRAZODONE 18:29: [place] ORAL) Medical Branch PROPRANOLOL Yes Take by Un tracee HCL 4-26 mouth. ity of (PROPRANOLO 18:29: [place] L ORAL) Medical Branch HYDROXYZINE Yes Take by Un tracee HCL ORAL 4-26 mouth. ity of 18:29: [place] [address] Medical Branch DULOXETINE Yes Take by Uni vers HCL 4-26 mouth. ity of (CYMBALTA 18:29: [place] ORAL) 35 Medical Branch ARIPIPRAZOL Yes Take by Un tracee E (ABILIFY 4-26 mouth. ity of ORAL) 18:29: [place] [address] Medical Branch TRAZODONE 0 Yes Take by Univ ers HCL 4-26 mouth. ity of (TRAZODONE 18:29: [place] ORAL) Medical Branch PROPRANOLOL Yes Take by Un tracee HCL 4-26 mouth. ity of (PROPRANOLO 18:29: [place] L ORAL) 35 Medical Branch HYDROXYZINE Yes Take by Un tracee HCL ORAL 4-26 mouth. ity of 18:29: [place] [address] Medical Branch DULOXETINE Yes Take by Uni vers HCL 4-26 mouth. ity of (CYMBALTA 18:29: [place] ORAL) Medical Branch ARIPIPRAZOL Yes Take by Un tracee E (ABILIFY 4-26 mouth. ity of ORAL) 18:29: [place] [address] Medical Branch TRAZODONE Yes Take by Univ ers HCL 4-26 mouth. ity of (TRAZODONE 18:29: [place] ORAL) Medical Branch PROPRANOLOL Yes Take by Un tracee HCL 4-26 mouth. ity of (PROPRANOLO 18:29: [place] L ORAL) 35 Medical Branch HYDROXYZINE Yes Take by Un tracee HCL ORAL 4-26 mouth. ity of 18:29: [place] [address] Medical Branch DULOXETINE Yes Take by Uni vers HCL 4-26 mouth. ity of (CYMBALTA 18:29: [place] ORAL) Medical Branch ARIPIPRAZOL Yes Take by Un tracee E (ABILIFY 4-26 mouth. ity of ORAL) 18:29: [place] [address] Medical Branch TRAZODONE Yes Take by Univ ers HCL 4-26 mouth. ity of (TRAZODONE 18:29: [place] ORAL) Medical Branch PROPRANOLOL Yes Take by Un tracee HCL 4-26 mouth. ity of (PROPRANOLO 18:29: [place] L ORAL) 35 Medical Branch HYDROXYZINE Yes Take by Un tracee HCL ORAL 4-26 mouth. ity of 18:29: [place] [address] Medical Branch DULOXETINE Yes Take by Uni vers HCL 4-26 mouth. ity of (CYMBALTA 18:29: [place] ORAL) Medical Branch TRAZODONE 0 Yes Take by Univ ers HCL 4-26 mouth. ity of (TRAZODONE 18:29: [place] ORAL) Medical Branch PROPRANOLOL Yes Take by Un tracee HCL 4-26 mouth. ity of (PROPRANOLO 18:29: [place] L ORAL) 35 Medical Branch HYDROXYZINE Yes Take by Un tracee HCL ORAL 4-26 mouth. ity of 18:29: [place] 35 Medical Branch DULOXETINE Yes Take by [...] HCL ORAL 4-26 mouth. ity of 18:29: [place] [address] Medical Branch DULOXETINE Yes Take by Uni [...] HCL ORAL 4-26 mouth. ity of 18:29: [place] [address] Medical Branch DULOXETINE Yes Take by Uni [...] HCL ORAL 4-26 mouth. ity of 18:29: [place] [address] Medical Branch DULOXETINE Yes Take by Uni [...] HCL ORAL 4-26 mouth. ity of 18:29: [place] 35 Medical Branch DULOXETINE Yes Take by [...] HCL ORAL 4-26 mouth. ity of 18:29: [place] [address] Medical Branch DULOXETINE Yes Take by Uni [...] HCL ORAL 4-26 mouth. ity of 13:29: [place] [address] Medical Branch DULOXETINE Yes Take by Uni [...] HCL ORAL 4-26 mouth. ity of 13:29: [place] 35 Medical Branch DULOXETINE Yes Take by Uni vers HCL 4-26 mouth. ity of (CYMBALTA 13:29: [place] ORAL) 35 Medical Branch TRAZODONE Yes Take by Univ ers HCL 4-26 mouth. ity of (TRAZODONE 13:29: [place] ORAL) 35 Medical Branch PROPRANOLOL 0 Yes Take by Un tracee HCL 4-26 mouth. ity of (PROPRANOLO 13:29: [place] L ORAL) 35 Medical Branch HYDROXYZINE 0 Yes Take by Un tracee HCL ORAL 4-26 mouth. ity of 13:29: [place] [address] Medical Branch DULOXETINE Yes Take by Uni [...] HCL ORAL 4-26 mouth. ity of 13:29: [place] [address] Medical Branch DULOXETINE Yes Take by Uni [...] HCL ORAL 4-26 mouth. ity of 13:29: [place] [address] Medical Branch DULOXETINE Yes Take by Uni vers HCL 4-26 mouth. ity of (CYMBALTA 13:29: [place] ORAL) 35 Medical Branch TRAZODONE Yes Take by Univ ers HCL 4-26 mouth. ity of (TRAZODONE 13:29: [place] ORAL) 35 Medical Branch PROPRANOLOL 0 Yes Take by Un tracee HCL 4-26 mouth. ity of (PROPRANOLO 13:29: [place] L ORAL) 35 Medical Branch HYDROXYZINE Yes Take by Un tracee HCL ORAL 4-26 mouth. ity of 13:29: [place] [address] Medical Branch DULOXETINE Yes Take by Uni vers HCL 4-26 mouth. ity of (CYMBALTA 13:29: [place] ORAL) 35 Medical Branch TRAZODONE Yes Take by Univ ers HCL 12-14 mouth. ity of (TRAZODONE 13:29: [place] ORAL) 35 Medical Branch PROPRANOLOL Yes Take by Un tracee HCL 12-14 mouth. ity of (PROPRANOLO 13:29: [place] L ORAL) 35 Medical Branch HYDROXYZINE Yes Take by Un tracee HCL ORAL 12-14 mouth. ity of 13:29: [place] [address] Medical Branch DULOXETINE Yes Take by Uni vers HCL 12-14 mouth. ity of (CYMBALTA 13:29: [place] ORAL) 35 Medical Branch Miscellaneo Yes [id number] [facility] 12-14 9104 EXTREMITY ity of Supply Misc 00:00: PROSTHES [place] 00 NOS, Left Medical bka, needs Branch new prosthesis and supplies Miscellaneo 2019-0 Yes [id number] [facility] 12-14 9104 EXTREMITY ity of Supply Misc 00:00: PROSTHES [place] 00 NOS, Left Medical bka, needs Branch new prosthesis and supplies Miscellaneo 2019-0 Yes [id number] [facility] 12-14 9104 EXTREMITY ity of Supply Misc 00:00: PROSTHES [place] 00 NOS, Left Medical bka, needs Branch new prosthesis and supplies Miscellaneo 2019-0 Yes [id number] [facility] 12-14 9104 EXTREMITY ity of Supply Misc 00:00: PROSTHES [place] 00 NOS, Left Medical bka, needs Branch new prosthesis and supplies Miscellaneo 2019-0 1- No [id number] [address]04[address] 9104 EXTREMITY ity of Supply Misc 00:00: 00:00 PROSTHES [place] 00 :00 NOS, Left Medical bka, needs Branch new prosthesis and supplies TOPIRAMATE 0 Yes Take by Uni vers (TOPAMAX 4-19 mouth. ity of ORAL) 01:22: [place] [address] Medical Branch TOPIRAMATE 2018- Yes Take by Uni vers (TOPAMAX 4-19 mouth. ity of ORAL) 01:22: [place] [address] Medical Branch TOPIRAMATE 2019-0 Yes Take by Uni vers (TOPAMAX 4-19 mouth. ity of ORAL) 01:22: [place] 40 Medical Branch TOPIRAMATE 2019-0 Yes Take by Uni vers (TOPAMAX 4-19 mouth. ity of ORAL) 01:22: [place] 40 Medical Branch acetaminoph 2018-0 Yes [id number] 1{tbl} Take 1 Univers en-codeine 4-18 tablet by ity of (TYLENOL-CO 00:00: mouth [place] DEINE #3) 00 every 4 Medical 300-30 mg (four) Branch tablet hours as needed for Pain (scale 7-10). cephALEXin Yes [id number] 250mg Take 1 Univers (KEFLEX) 4-18 capsule by ity o f 250 mg 00:00: mouth [place] capsule 00 every 6 Medical (six) Branch hours. acetaminoph Yes [id number] 1{tbl} Take 1 Univers en-codeine 4-18 tablet by ity of (TYLENOL-CO 00:00: mouth [place] DEINE #3) 00 every 4 Medical 300-30 mg (four) Branch tablet hours as needed for Pain (scale 7-10). cephALEXin Yes [id number] 250mg Take 1 Univers (KEFLEX) 4-18 capsule by ity o f 250 mg 00:00: mouth [place] capsule 00 every 6 Medical (six) Branch hours. acetaminoph Yes [id number] 1{tbl} Take 1 Univers en-codeine 4-18 tablet by ity of (TYLENOL-CO 00:00: mouth [place] DEINE #3) 00 every 4 Medical 300-30 mg (four) Branch tablet hours as needed for Pain (scale 7-10). cephALEXin Yes [id number] 250mg Take 1 Univers (KEFLEX) 4-18 capsule by ity o f 250 mg 00:00: mouth [place] capsule 00 every 6 Medical (six) Branch hours. acetaminoph 20190 Yes [id number] 1{tbl} Take 1 Univers en-codeine 4-18 tablet by ity of (TYLENOL-CO 00:00: mouth [place] DEINE #3) 00 every 4 Medical 300-30 mg (four) Branch tablet hours as needed for Pain (scale 7-10). cephALEXin 2019-0 Yes [id number] 250mg Take 1 Univers (KEFLEX) 4-18 capsule by ity o f 250 mg 00:00: mouth [place] capsule 00 every 6 Medical (six) Branch hours. acetaminoph 2020- No [id number] 1{tbl} Take 1 Univers en-codeine 4-18 08-22 tablet by ity of (TYLENOL-CO 00:00: 00:00 [place] DEINE #3) 00 :00 every 4 Medical 300-30 mg (four) Branch tablet hours as needed for Pain (scale 7-10). cephALEXin 2020- No [id number] 250mg Take 1 Univers (KEFLEX) 4-18 -22 capsule by ity of 250 mg 00:00: 00:00 mouth [place] capsule 00 :00 every 6 Medical (six) Branch hours. ibuprofen 2018- No [id number] 600mg Take 1 Univers 600 mg 3-06 27-29 3 tablet by ity of tablet 00:00: 00:00 mouth [place] 00 :00 every 6 Medical (six) Branch hours as needed for Pain (scale 4-6). sulfamethox Yes [id number] 1{tbl} Take 1 Univers azole-trime 2-12 tablet by ity of thoprim 00:00: mouth [place] 800-160 mg 00 every 12 Medic al per tablet (twelve) Branc h hours. sulfamethox Yes [id number] 1{tbl} Take 1 Univers azole-trime 2-12 tablet by ity of thoprim 00:00: mouth [place] 800-160 mg 00 every 12 Medic al per tablet (twelve) Branc h hours. sulfamethox Yes [id number] 1{tbl} Take 1 Univers azole-trime 2-12 tablet by ity of thoprim 00:00: mouth [place] 800-160 mg 00 every 12 Medic al per tablet (twelve) Branc h hours. sulfamethox 2019 Yes [id number] 1{tbl} Take 1 Univers azole-trime 2-12 tablet by ity of thoprim 00:00: mouth [place] 800-160 mg 00 every 12 Medic al per tablet (twelve) Branc h hours. sulfamethox 2020- No [id number] 1{tbl} Take 1 Univers azole-trime 2-12 -22 tablet by it y of thoprim 00:00: 00:00 mouth [place] 800-160 mg 00 :00 every 12 Medic al per tablet (twelve) Branc h hours. FLUOXETINE Yes Take by Uni vers HCL (PROZAC 6-27 mouth. ity of ORAL) 17:12: [address] FLUOXETINE Yes Take by Uni vers HCL (PROZAC 6-27 mouth. ity of ORAL) 17:12: [address] FLUOXETINE Yes Take by Uni vers HCL (PROZAC 6-27 mouth. ity of ORAL) 17:12: [address] FLUOXETINE Yes Take by Uni vers HCL (PROZAC 6-27 mouth. ity of ORAL) 17:12: [address] pantoprazol Yes [id number] 40mg Take 1 Univers e 6-27 tablet by ity of (PROTONIX) 00:[place]: mouth 2 [place] 40 [place] 00 (two) Medical tablet times Branch daily. fluticasone Yes [id number] 2{spray Use 2 Univers 50 6-27 } Sprays in ity of mcg/actuati 00:00: each [place] on nasal 00 nostril Medical spray daily. Branch pantoprazol Yes [id number] 40mg Take 1 Univers e 6-27 tablet by ity of (PROTONIX) 00:00: mouth 2 [place] 40 mg EC 00 (two) Medical tablet times Branch daily. fluticasone Yes [id number] 2{spray Use 2 Univers 50 6-27 } Sprays in ity of mcg/actuati 00:00: each [place] on nasal 00 nostril Medical spray daily. Branch pantoprazol Yes [id number] 40mg Take 1 Univers e 6-27 tablet by ity of (PROTONIX) 00:00: mouth 2 [place] 40 mg EC 00 (two) Medical tablet times Branch daily. fluticasone Yes [id number] 2{spray Use 2 Univers 50 6-27 } Sprays in ity of mcg/actuati 00:00: each [place] on nasal 00 nostril Medical spray daily. Branch pantoprazol Yes [id number] 40mg Take 1 Univers e 6-27 tablet by ity of (PROTONIX) 00:00: mouth 2 [place] 40 mg EC 00 (two) Medical tablet times Branch daily. fluticasone Yes [id number] 2{spray Use 2 Univers 50 6-27 } Sprays in ity of mcg/actuati 00:00: each [place] on nasal 00 nostril Medical spray daily. Branch pantoprazol 2020- No [id number] 40mg Take 1 Univers e 6-27 08-22 tablet by ity of (PROTONIX) 00:00: 00:00 mouth 2 [place] 40 mg EC 00 :00 (two) Medical tablet times Branch daily. fluticasone 2020- No [id number] 2{spray Use 2 Univers 50 6-27 08-22 } Sprays in ity of mcg/actuati 00:00: 00:00 each [place] on nasal 00 :00 nostril Medical spray daily. Branch naproxen Yes 550mg Take 1 Univer s sodium 6-10 tablet by ity of (ANAPROX 00:00: mouth 2 [place] DS) 550 mg 00 (two) Medical tablet times Branch daily with meals. naproxen Yes 550mg Take 1 Univer s sodium 6-10 tablet by ity of (ANAPROX 00:00: mouth 2 [place] DS) 550 mg 00 (two) Medical tablet times Branch daily with meals. naproxen Yes 550mg Take 1 Univer s sodium 6-10 tablet by ity of (ANAPROX 00:00: mouth 2 [place] DS) 550 mg 00 (two) Medical tablet times Branch daily with meals. naproxen Yes 550mg Take 1 Univer s sodium 6-10 tablet by ity of (ANAPROX 00:00: mouth 2 [place] DS) 550 mg 00 (two) Medical tablet times Branch daily with meals. naproxen 2020- No 550mg Take 1 Unive rs sodium 6-10 08-22 tablet by ity of (ANAPROX 00:00: 00:00 mouth 2 [place] DS) 550 mg 00 :00 (two) Medical tablet times Branch daily with meals. metoclopram Yes [id number] 1 tab U nivers arianne HCl 10 5-25 every 4hr ity of mg tablet 00:00: as needed [place] as 00 for nausea Medical Branch metoclopram 2018-0 Yes [id number] 1 tab U nivers arianne HCl 10 5-25 every 4hr ity of mg tablet 00:00: as needed [place] 00 for nausea Medical Branch metoclopram 2018-0 Yes [id number] 1 tab U nivers arianne HCl 10 5-25 every 4hr ity of mg tablet 00:00: as needed [place] 00 for nausea Medical Branch metoclopram 2018-0 Yes [id number] 1 tab U nivers arianne HCl 10 5-25 every 4hr ity of mg tablet 00:00: as needed [place] 00 for nausea Medical Branch metoclopram 2018-0 2020- No [id number] 1 tab Univers arianne HCl 10 5-25 [...] needed for Nausea and Vomiting (N/V). phenazopyri 2018- Yes 200mg Take 1 Uni vers dine 200 mg 5-10 tablet by ity of tablet 00:00: mouth 3 [place] 00 (three) Medical times Branch daily. ondansetron Yes 4mg Take 1 Univ ers (ZOFRAN 5-10 tablet by ity of ODT) 4 mg 00:00: mouth [place] disintegrat 00 every 8 Medic al ing tablet (eight) Branch hours as needed for Nausea and Vomiting (N/V). phenazopyri 2017-2020- No 200mg Take 1 Un tracee dine 200 mg 5-10 08-22 tablet by it y of tablet 00:00: 00:00 mouth 3 [place] 00 :00 (three) Medical times Branch daily. ondansetron 2017-2020- No 4mg Take 1 Uni vers (ZOFRAN 5-10 -22 tablet by ity of ODT) 4 mg 00:00: 00:00 mouth [place] disintegrat 00 :00 every 8 Medic al ing tablet (eight) Branch hours as needed for Nausea and Vomiting (N/V). acetaminoph Yes [id number] 1{tbl} Take 1-2 Univers en-codeine 5-01 tablets by ity of 300-30 mg 00:00: mouth [place] tablet 00 every 6 Medical (six) Branch hours as needed for Pain (scale 4-6) or Pain (scale 7-10) (for breakthrou gh pain). acetaminoph 2017- Yes [id number] 1{tbl} Take 1-2 Univers en-codeine 5-01 tablets by ity of 300-30 mg 00:00: mouth [place] tablet 00 every 6 Medical (six) Branch hours as needed for Pain (scale 4-6) or Pain (scale 7-10) (for breakthrou gh pain). acetaminoph 2018-0 Yes [id number] 1{tbl} Take 1-2 Univers en-codeine 5-01 tablets by ity of 300-30 mg 00:00: mouth [place] tablet 00 every 6 Medical (six) Branch hours as needed for Pain (scale 4-6) or Pain (scale 7-10) (for breakthrou gh pain). acetaminoph 2018- Yes [id number] 1{tbl} Take 1-2 Univers en-codeine 5-01 tablets by ity of 300-30 mg 00:00: mouth [place] tablet 00 every 6 Medical (six) Branch hours as needed for Pain (scale 4-6) or Pain (scale 7-10) (for breakthrou gh pain). acetaminoph 2020- No [id number] 1{tbl} Take 1-2 Univers en-codeine 5-01 08-22 tablets by it y of 300-30 mg 00:00: 00:00 mouth [place] tablet 00 :00 every 6 Medical (six) Branch hours as needed for Pain (scale 4-6) or Pain (scale 7-10) (for breakthrou gh pain). meclizine Yes [id number] 25mg Take 1 U nivers 25 mg 3-30 tablet by ity of tablet 00:00: mouth 3 [place] 00 (three) Medical times Branch daily as needed for Dizziness. meclizine Yes [id number] 25mg Take 1 U nivers 25 mg 3-30 tablet by ity of tablet 00:00: mouth 3 [place] 00 (three) Medical times Branch daily as needed for Dizziness. meclizine Yes [id number] 25mg Take 1 U nivers 25 mg 3-30 tablet by ity of tablet 00:00: mouth 3 [place] 00 (three) Medical times Branch daily as needed for Dizziness. meclizine Yes [id number] 25mg Take 1 U nivers 25 mg 3-30 tablet by ity of tablet 00:00: mouth 3 [place] 00 (three) Medical times Branch daily as needed for Dizziness. meclizine 2020- No [id number] 25mg Take 1 Univers 25 mg 3-30 -22 tablet by ity of tablet 00:00: 00:00 [...] needed for Nausea and Vomiting (N/V). ondansetron 2017- Yes 4mg Take 1 Univ ers (ZOFRAN 1-24 tablet by ity of ODT) 4 mg 00:00: mouth [place] disintegrat 00 every 8 Medic al ing tablet (eight) Branch hours as needed for Nausea and Vomiting (N/V). ondansetron 2017- Yes 4mg Take 1 Univ ers (ZOFRAN 1-24 tablet by ity of ODT) 4 mg 00:00: mouth [place] disintegrat 00 every 8 Medic al ing tablet (eight) Branch hours as needed for Nausea and Vomiting (N/V). ondansetron 2017- Yes 4mg Take 1 Univ ers (ZOFRAN 1-24 tablet by ity of ODT) 4 mg 00:00: mouth [place] disintegrat 00 every 8 Medic al ing tablet (eight) Branch hours as needed for Nausea and Vomiting (N/V). ondansetron 2017-2020- No 4mg Take 1 Uni vers (ZOFRAN 1-24 - tablet by ity of ODT) 4 mg 00:00: 00:00 mouth [place] disintegrat 00 :00 every 8 Medic al ing tablet (eight) Branch hours as needed for Nausea and Vomiting (N/V). DULoxetine 2016-08 Yes anxiety 30mg QD Take [address] [facility] (CYMBALTA) 1-26 with by mouth [facility] 30 MG 15:00: depression daily. Medi mary ann capsule 29 Center topiramate 2016-08 Yes 100mg Q.5D Take [address] [facility] [address] [facility] (TOPAMAX) 1-26 mg by [facility] 100 MG 15:00: mouth 2 Medical tablet 29 (two) Center times daily. omeprazole 2016-08 Yes gastroesoph 40mg QD Take [address] [facility] (PRILOSEC) 1-26 ageal by mouth [facility] 40 MG 15:00: reflux daily. Medical capsule 29 disease Center hydrOXYzine 2016-08 Yes anxiety 25mg Q.25D Take [address] [facility] (ATARAX) 25 1-26 by mouth 4 Rosangela kes MG tablet 15:00: (four) Medica l 29 times Center daily. propranolol 2016-08 Yes 20mg Q.5D Take [address] [facility] (INDERAL) 1-26 by mouth 2 [place] [facility] 20 MG 15:00: (two) Medical tablet 29 times Center daily. traZODone 2016-08 Yes 150mg QD Take [address] [facility] (DESYREL) 1-26 mg by [facility] 150 MG 15:00: mouth Medical tablet 29 nightly. [place] ARIPiprazol 2016-08 Yes 15mg QD Take [address] [facility] e (ABILIFY) 1-26 by mouth [facility] 15 MG 15:00: nightly. Medical tablet 29 Center metroNIDAZO 2016-08 Yes 500mg Take 1 Uni vers LE 500 mg 0-16 tablet by ity o f tablet 00:00: mouth 2 [place] 00 (two) Medical times Branch daily. metroNIDAZO 2016-08 Yes 500mg Take 1 Uni vers LE 500 mg 0-16 tablet by ity o f tablet 00:00: mouth 2 [place] 00 (two) Medical times Branch daily. metroNIDAZO 2016-08 Yes 500mg Take 1 Uni vers LE 500 mg 0-16 tablet by ity o f tablet 00:00: mouth 2 [place] 00 (two) Medical times Branch daily. metroNIDAZO [...] Yes Take by Benjamín ris E (ABILIFY 8 mouth. Health OR) 13:48: 28 DULOXETINE Yes [...] OR 8-27 mouth. Health 13:48: 28 budesonide- 0 Yes Unspecified 2{puff} Q.5D Inhale 2 Krishnamurthy formoterol 8-27 chronic Puffs by [facility] (SYMBICORT) 00:00: bronchitis mouth 2 80-4.5 00 times mcg/actuati daily on inhaler Rinse mouth after each use.. Vital Signs Vital Name Observation Time Observation Value Comments Source Systolic blood 2021-10-10 17:08:00 136 mm[Hg] Univer sity of [facility] Diastolic blood 2021-10-10 17:08:00 86 [facility]Hg[facility] 2021-10-10 17:08:00 78 /min [facility] Body temperature 2021-10-10 17:08:00 36.5 Michell [facility] Respiratory rate 2021-10-10 17:08:00 16 /min [facility] Body height 2021-10-10 17:08:00 172.7 cm Universi [facility] Body weight 2021-10-10 17:08:00 83.915 kg [facility] BMI 2021-10-10 17:08:00 28.13 kg/m2 [facility] Oxygen saturation in 2021-10-10 17:08:00 99 /min [facility] Ar[facility]ial [facility] by [facility]xim[facility] Branch Systolic blood 2021-10-01 03:09:00 144 mm[Hg] Univer sity [facility] Diastolic blood 2021-10-01 03:09:00 87 mm[Hg] Unive rsity [facility] Heart rate 2021-10-01 03:09:00 87 /[facility] 2021-10-01 03:09:00 36.72 Michell [facility] Respiratory rate 2021-10-01 03:09:00 20 /min [facility] Body height 2021-10-01 03:09:00 172.7 cm Universi [facility] Body weight 2021-10-01 03:09:00 81.647 kg [facility] [place] [facility] BMI 2021-10-01 03:09:00 27.37 kg/m2 [facility] [place] [facility] Oxygen saturation in 2021-10-01 03:09:00 98 /min [facility] Systolic blood 2021-09-17 06:40:00 103 mm[Hg] Univer sity of [facility] [place] [facility] Diastolic blood 2021-09-17 06:40:00 60 mm[Hg] Unive rsity of [facility] [place] [facility] Heart rate 2021-09-17 06:40:00 64 /min [facility] [place] [facility] Oxygen saturation in 2021-09-17 06:40:00 97 /min [facility] P[facility] Body temperature 2021-09-17 03:46:00 36.94 Michell [facility] [place] [facility] Respiratory rate 2021-09-17 03:46:00 18 /min Univ [facility] [place] [facility] Body height 2021-09-17 03:46:00 172.7 cm [facility] [place] [facility] Body weight 2021-09-17 03:46:00 84.823 kg [facility] [place] [facility] BMI 2021-09-17 03:46:00 28.43 kg/m2 [facility] [place] [facility] Systolic blood 2021-09-15 19:50:00 129 mm[Hg] Univer sity of [facility] [place] [facility] Diastolic blood 2021-09-15 19:50:00 75 mm[Hg] Unive rsity of [facility] [place] [facility] Heart rate 2021-09-15 19:50:00 80 /min [facility] [place] [facility] Oxygen saturation in 2021-09-15 19:50:00 99 /min [facility] P[facility]xim[facility] Body temperature 2021-09-15 18:37:00 37.06 Michell [facility] [place] [facility] Respiratory rate 2021-09-15 18:37:00 18 /min [facility] [place] [facility] Body height 2021-09-15 18:37:00 172.7 cm [facility] [place] [facility] Body weight 2021-09-15 18:37:00 84.823 kg [facility] [place] [facility] BMI 2021-09-15 18:37:00 28.43 kg/m2 [facility] [place] [facility] Systolic blood 2021-08-21 22:49:00 142 mm[Hg] Univer sity of [facility] [place] [facility] Diastolic blood 2021-08-21 22:49:00 89 mm[Hg] Unive rsity of [facility] [place] [facility] Heart rate 2021-08-21 22:49:00 71 /min [facility] [place] [facility] Oxygen saturation in 2021-08-21 22:49:00 99 /min University of Arterial blood by [place] [email or web address] mary ann Pulse oximetry Branch Body temperature 2021-08-21 21:55:00 36.61 Michell [facility] [place] [facility] Respiratory rate 2021-08-21 21:55:00 18 /min [facility] [place] [facility] Body weight 2021-08-21 21:55:00 81.647 kg [facility] [place] [facility] BMI 2021-08-21 21:55:00 27.37 kg/m2 [facility] [place] [facility] Systolic blood 2021-04-26 22:15:00 113 mm[Hg] Univer sity of [facility] [place] [facility] Diastolic blood 2021-04-26 22:15:00 79 mm[Hg] Unive rsity of [facility] [place] [facility] Heart rate 2021-04-26 22:15:00 59 /min [facility] [place] [facility] Respiratory rate 2021-04-26 22:15:00 13 /min Univ ers[facility] [place] [facility] Oxygen saturation in 2021-04-26 22:15:00 99 /min University of Arterial blood by [place] [email or web address] mary ann Pulse oximetry Branch Body temperature 2021-04-26 17:03:00 36.72 Michell [facility] [place] [facility] Body weight 2021-04-26 17:03:00 90.719 kg [facility] [place] [facility] BMI 2021-04-26 17:03:00 30.41 kg/m2 [facility] [place] [facility] Systolic blood 2021-04-17 23:53:00 130 mm[Hg] Univer sity of [facility] [place] [facility] Diastolic blood 2021-04-17 23:53:00 75 mm[Hg] Unive rsity of [facility] [place] [facility] Heart rate 2021-04-17 23:53:00 78 /min [facility] [place] [facility] Body temperature 2021-04-17 23:53:00 36.94 Michell [facility] [place] [facility] Respiratory rate 2021-04-17 23:53:00 20 /min Univ [facility] [place] [facility] Body weight 2021-04-17 23:53:00 90.719 kg [facility] [place] [facility] BMI 2021-04-17 23:53:00 30.41 kg/m2 [facility] [place] [facility] Oxygen saturation in 2021-04-17 23:53:00 100 /min University of Arterial blood by [facility] mary ann Pulse oximetry Branch Systolic blood 2021-04-12 00:15:00 167 mm[Hg] Univer sity of [facility] [place] [facility] Diastolic blood 2021-04-12 00:15:00 106 mm[Hg] Unive rsity of [facility] [place] [facility] Heart rate 2021-04-12 00:15:00 89 /min [facility] [place] [facility] Body temperature 2021-04-12 00:15:00 37.22 Michell [facility] [place] [facility] Respiratory rate 2021-04-12 00:15:00 18 /min [facility] [place] [facility] Body weight 2021-04-12 00:15:00 86.183 kg [facility] [place] [facility] BMI 2021-04-12 00:15:00 28.89 kg/m2 [facility] [place] [facility] Oxygen saturation in 2021-04-12 00:15:00 98 /min [facility] P[facility]xim[facility] Systolic blood 2020-04-29 19:15:00 124 mm[Hg] Univer sity of [facility] [place] [facility] Diastolic blood 2020-04-29 19:15:00 86 mm[Hg] Unive rsity of [facility] [place] [facility] Heart rate 2020-04-29 19:15:00 59 /min [facility] [place] [facility] Respiratory rate 2020-04-29 19:15:00 17 /min Univ [facility] [place] [facility] Oxygen saturation in 2020-04-29 19:15:00 99 /min [facility] by [facility] Pulse oxim[facility] Body temperature 2020-04-29 15:43:00 37.11 Michell [facility] [place] [facility] Body height 2020-04-29 15:43:00 172.7 cm [facility] [place] [facility] Body weight 2020-04-29 15:43:00 86.183 kg [facility] [place] [facility] BMI 2020-04-29 15:43:00 28.89 kg/m2 [facility] [place] [facility] Systolic blood 2020-04-29 19:15:00 124 mm[Hg] Univer sity of [facility] [place] [facility] Diastolic blood 2020-04-29 19:15:00 86 mm[Hg] Unive rsity of [facility] [place] [facility] Heart rate 2020-04-29 19:15:00 59 /min [facility] [place] [facility] Respiratory rate 2020-04-29 19:15:00 17 /min Univ [facility] [place] [facility] Oxygen saturation in 2020-04-29 19:15:00 99 /min University of Arterial blood by [employer] Pulse oximetry Branch Body temperature 2020-04-29 15:43:00 37.11 Michell [facility] [place] [facility] Body height 2020-04-29 15:43:00 172.7 cm [facility] [place] [facility] Body weight 2020-04-29 15:43:00 86.183 kg [facility] [place] [facility] BMI 2020-04-29 15:43:00 28.89 kg/m2 [facility] [place] [facility] Systolic blood 2019-04-14 22:23:00 146 mm[Hg] Univer sity of [facility] [place] [facility] Diastolic blood 2019-04-14 22:23:00 82 mm[Hg] Unive rsity of [facility] [place] [facility] Heart rate 2019-04-14 22:23:00 82 /min [facility] [place] [facility] Body temperature 2019-04-14 22:23:00 36.72 Michell [facility] [place] [facility] Respiratory rate 2019-04-14 22:23:00 18 /min Univ [facility] [place] [facility] Body weight 2019-04-14 22:23:00 90.719 kg [facility] [place] [facility] BMI 2019-04-14 22:23:00 30.41 kg/m2 [facility] [place] [facility] Oxygen saturation in 2019-04-14 22:23:00 98 /min University of Arterial blood by [employer] Pulse oximetry Branch Systolic blood 2019-04-14 22:23:00 146 mm[Hg] Univer sity of [facility] [place] [facility] Diastolic blood 2019-04-14 22:23:00 82 [...] 98 /min University of Arterial blood by [place] [email or web address] mary ann Pulse oximetry Branch Systolic blood 2019-03-19 04:00:00 122 mm[Hg] Univer sity of [facility] [place] [facility] Diastolic blood 2019-03-19 04:00:00 78 mm[Hg] Unive rsity of [facility] [place] [facility] Heart rate 2019-03-19 04:00:00 68 /min [facility] [place] [facility] Respiratory rate 2019-03-19 04:00:00 18 /min Univ [facility] [place] [facility] Oxygen saturation in 2019-03-19 04:00:00 97 /min University of Arterial blood by [place] [email or web address] mary ann Pulse oximetry Branch Body temperature 2019-03-19 03:28:00 36.67 Michell [facility] [place] [facility] Body weight 2019-03-19 03:28:00 90.719 kg [facility] [place] [facility] BMI 2019-03-19 03:28:00 30.41 kg/m2 [facility] [place] [facility] Systolic blood 2019-03-19 04:00:00 122 mm[Hg] Univer sity of [facility] [place] [facility] Diastolic blood 2019-03-19 04:00:00 78 mm[Hg] Unive rsity of [facility] [place] [facility] Heart rate 2019-03-19 04:00:00 68 /min [facility] [place] [facility] Respiratory rate 2019-03-19 04:00:00 18 /min Univ ers[facility] [place] [facility] Oxygen saturation in 2019-03-19 04:00:00 97 /min University of Arterial blood by [employer] mary ann Pulse oximetry Branch Body temperature 2019-03-19 03:28:00 36.67 Michell [facility] [place] [facility] Body weight 2019-03-19 03:28:00 90.719 kg [facility] BMI 2019-03-19 03:28:00 30.41 kg/m2 [facility] Procedures Procedure Date / Time Performing Clinician Source Performed POCT TEST 2021-10-10 17:30:00 Pino Aldana [facility] CONSENT/REFUSAL FOR 2021-10-10 16:56:51 Doctor Unassigned, No Un [facility] [place] [facility] POCT TEST 2021-10-01 03:23:00 Katelyn Baker [facility] URINALYSIS 2021-10-01 03:17:00 Katelyn Baker [facility] NOTICE OF PRIVACY 2021-10-01 03:03:14 Doctor Unassigned, No [facility] CONSENT/REFUSAL FOR 2021-10-01 03:00:51 Doctor Unassigned, No Un [facility] [place] [facility] US OVARY TORSION 2021-09-17 05:52:50 Katherin Maurer [facility] NOTICE OF PRIVACY 2021-09-17 03:47:38 [facility] FOR 2021-09-17 03:41:04 Doctor Unassigned, No Un [facility] [place] [facility] CT ABDOMEN PELVIS W 2021-09-15 19:51:50 Pino Aldana [facility] CONTRAST [facility] POCT TEST 2021-09-15 19:00:00 Pino Aldana [facility] LIPASE 2021-09-15 18:56:00 Pino Aldana [facility] COMP. METABOLIC PANEL 2021-09-15 18:56:00 Pino Aldana [facility] ([id number]) [facility] CBC WITH DIFF 2021-09-15 18:56:00 Pino Aldana [facility] URINALYSIS 2021-09-15 18:56:00 Pino Aldana [facility] COVID-19 (ID NOW RAPID 2021-09-15 18:56:[address] [facility] TESTING) Medical Branch CONSENT/REFUSAL FOR 2021-09-15 18:28:32 Doctor Unassigned, No [facility] [place] [facility] Name Medical Branch CT HEAD WO CONTRAST 2021-08-21 22:46:54 Katherin Maurer [facility] POCT TEST 2021-08-21 22:39:00 Katherin Maurer [facility] COMP. METABOLIC PANEL 2021-08-21 22:32:00 Katherin Maurer [facility] ([id number]) Medical [place] CBC WITH DIFF 2021-08-21 22:32:00 Shaniko [facility] RAPID INFLUENZA A/B 2021-08-21 22:32:00 Katherin Maurer [facility] COVID-19 (ID NOW RAPID 2021-08-21 22:32:00 MaurerKatherin singh [facility] TESTING) Medical Branch CONSENT/REFUSAL FOR 2021-08-21 21:45:27 [facility] Name Medical Branch FREE T4 2021-04-26 20:43:00 Yovanny Blayne [facility] CREATINE KINASE 2021-04-26 20:41:00 Yovanny Blayne [facility] MAGNESIUM 2021-04-26 20:41:00 Yovanny Blayne [facility] TROPONIN I 2021-04-26 20:41:00 Blayne Hairston [facility] COMP. METABOLIC PANEL 2021-04-26 20:41:00 Blayne Hairston [facility] ([id number]) Medical Branch SEDIMENTATION RATE 2021-04-26 19:33:00 Blayne Hairston [facility] CT CERVICAL SPINE WO 2021-04-26 19:00:47 Blayne Hairston [facility] CONTRAST Medical Branch CT HEAD WO CONTRAST 2021-04-26 19:00:47 Blayne Hairston [facility] COVID-19 (ID NOW RAPID 2021-04-26 18:30:00 Blayne Hairston [facility] TESTING) Medical Branch THYROID STIMULATING 2021-04-26 18:25:00 Blayne Hairston [facility] HORMONE [facility] CBC WITH DIFF 2021-04-26 18:25:00 Blayne Hairston [facility] N-TERMINAL PRO-BNP 2021-04-26 18:25:00 Blayne Hairston [facility] POCT TEST 2021-04-26 18:24:00 Blayne Hairston [facility] URINALYSIS 2021-04-26 18:23:00 Blayne Hairston [place] [facility] URINE DRUG (IMMUNOASSAY) 2021-04-26 18:23:00 Blayne Hairston [facility] DRUG Medical [facility] SCREEN W/O REFLEX CONSENT/REFUSAL FOR 2021-04-26 16:29:45 [facility]igned[facility] ASSIGNMENT OF BENEFITS 2021-04-18 01:01:09 Doctor Unassigned, No [facility] CONSENT/REFUSAL FOR 2021-04-17 23:47:56 Doctor Unassigned, No [facility] [place] [facility]REAT[facility] Name [facility] POCT TEST 2021-04-12 00:20:00 John Hinkle [facility] URINALYSIS 2021-04-12 00:18:00 John Hinkle [facility] CONSENT/REFUSAL FOR 2021-04-12 00:10:24 Doctor Unassigned, No Un iversity [facility] DIAGNOSIS AND TREATMENT [facility] XR KNEE 3 VW LEFT 2020-04-29 16:37:20 Amaris Stallings [facility] COMP. METABOLIC PANEL 2020-04-29 16:30:00 Amaris Stallings [facility] ([id number]) Medical [place] CBC WITH DIFF 2020-04-29 16:30:00 Amaris Stallings [facility] POCT TEST 2020-04-29 16:24:00 Amaris Stallings [facility] RAPID STREP SCREEN FOR 2020-04-29 16:11:00 Amaris Stallings [facility] A Medical [place] NOTICE OF PRIVACY 2020-04-29 15:31:17 Doctor Unassigned, No Univ [facility] CONSENT/REFUSAL FOR 2020-04-29 15:31:01 Doctor Unassigned, No [facility] [place] DIAGNOSIS AND TREATMENT Name [facility] POCT TEST 2019-03-19 04:24:00 Vonda Aguila [facility] NOTICE OF PRIVACY 2019-03-19 03:19:57 [facility]USAL FOR 2019-03-19 03:19:41 Doctor Unassigned, No [facility] [place] DIAGNOSIS AND TREATMENT Name [facility] Plan of Care Planned Activity Planned Date Details Comments Source Future Scheduled 2021-05-21 IMM Influenza [facility] 00:00:00 Seasonal May to October (>/= 19 yrs) [code = IMM Influenza Seasonal May to October (>/= 19 yrs)] Future Scheduled 2020-04-20 [facility]ening [facility] 00:00:00 malignant neoplasm of cervix (procedure) [code = 159500338] Future Scheduled 2015 [facility] 00:00:00 malignant neoplasm of cervix (procedure) [code = 955521987] Future Scheduled 1997 COVID-19 Vaccine [facility] 00:00:00 (1) [code = COVID-19 Vaccine (1)] Future Scheduled COVID-[address] [facility] (1) [code = COVID-19 VACCINE (1)] Future Scheduled Scre[facility] Test malignant neoplasm of cervix (procedure) [code = 489469790] Future Scheduled [facility] [code = INFLUENZA VACCINE] Encounters Start End Encounter Admission Attending Care Care Encounter Source Date/Time Date/Time Type Type Clinicians Facility Department ID 2021-06-21 Emergency [facility] [id number] [facility] 20:38:37 [facility] 2021-06-21 Emergency [facility] [id number] Univers 18:47:54 [facility] 2021-06-21 Emergency [facility] [id number] Univers 17:14:45 [facility] 2021-06-18 Emergency [facility] [id number] Univers 16:34:49 ity [facility] 2021-10-10 2021-10-[address] [facility] ERT [id number] Univers 11:13:00 11:56:00 PINO ity [facility] 2021-10-10 2021-10-10 Emergency [facility] 1.2.840.114 [id number] Univers 11:13:00 11:56:00 Pino Geeta DAILYTON 350.1.13.10 i ty of [place] 4.2.7.2.686 [facility] [id number] [address] 2021-09-30 2021-09-30 Emergency X [facility] ERT [id number] Univers 21:14:00 22:04:00 KATELYN ity [facility] 2021-09-30 2021-09-30 Emergency [facility] 1.2.004.614 [id number] Univers 21:14:00 22:04:00 Katelyn Mathews TERE 350.1.13.10 ity of [place] 4.2.7.2.686 [facility] [id number] [address] 2021-09-30 2021-09-30 Orders Doctor ANTHONY 1.2.840.114 [id number] Univers 00:00:00 00:00:00 Only Unassigned, LINDA 350.1.13.10 ity of [facility] 4.2.7.2.686 Luis as [phone] [address] 2021-09-16 2021-09-17 Emergency X [facility] ERT [id number] Univers 21:51:00 00:42:00 KATHERIN ity [facility] 2021-09-16 2021-09-17 Emergency [facility] [id number] Univers 21:51:00 00:42:00 Katherin Jeter [place] 350.1.13.10 i ty of [place] 4.2.7.2.686 [facility] [id number] [address] 2021-09-15 2021-09-[address] [facility] ERT [id number] Univers 12:41:00 15:07:00 PINO ity [facility] 2021-09-15 2021-09-15 Emergency [place] 1.2.840.114 [id number] Univers 12:41:00 15:07:00 Pino CARRANZA 350.1.13.10 i ty of [place] 4.2.7.2.686 [facility] [id number] [address] 2021-08-21 2021-08-21 Emergency X [facility] ERT [id number] Univers 15:57:00 17:52:00 KATHERIN ity of [facility] 2021-08-21 2021-08-21 Emergency [facility] 1.2.723.211 [id number] Univers 15:57:00 17:52:00 Katherin S TERE 350.1.13.10 i ty of [place] 4.[address] [place] [id number] 2021-08-21 2021-08-21 Orders Doctor CRUZ 1.2.840.114 [id number] Univers 00:00:00 00:00:00 Only Unassigned, LINDA 350.1.13.10 ity of [place] [facility] 4.2.7.2.686 Luis as [phone] [place] [address] [address] 2021-04-26 2021-04-26 Emergency [facility] 1.2.873.576 [id number] Univers 12:05:00 17:42:00 Blayne Carranza 350.1.13.10 i ty of [place] 4.2.7.2.686 [facility] [id number] [address] 2021-04-26 2021-04-26 Orders Doctor CRUZ 1.2.840.114 [id number] Univers 00:00:00 00:00:00 Only Unassigned, LINDA 350.1.13.10 ity of [place] [facility] 4.2.7.2.686 Luis as [phone] [address] 2021-04-17 2021-04-17 Emergency [facility] 1.2.110.454 [id number] Univers 18:55:00 20:04:00 Basil Carranza 350.1.13.10 i ty of [place] 4.2.7.2.686 [facility] [id number] [address] 2021-04-11 2021-04-11 Emergency [facility] 1.2.998.775 [id number] [facility] 19:20:00 20:53:00 Katherin Jeter Tere 350.1.13.10 i ty of [place] 4.2.7.2.686 [facility] [id number] [address] 2020-04-29 2020-04-29 Emergency [facility] 1.2.593.995 [id number] Univers 10:44:00 14:30:00 Amaris Carranza 350.1.13.10 i ty of [place] 4.2[address]7.[address] [place] [id number] 2020-04-29 2020-04-29 Emergency [facility] 1.2.873.470 [id number] 10:44:00 14:30:00 Amaris Carranza 350.1.13.[address] [place] [address] [place] [address] [phone] [facility] 2020-04-29 2020-04-29 Orders Doctor ANTHONY 1.2.840.114 [id number] Univers 00:00:00 00:00:00 Only Unassigned, LINDA 350.1.13.10 ity of [place] [facility] 4.2.7.2.686 [facility] [id number] [address] 2020-04-29 2020-04-29 Orders Doctor ANTHONY 1.2.840.114 [id number] 00:00:00 00:00:00 Only Unassigned, LINDA 350.1.13.10 [place] [facility] 4.2.7.2.686 [id number] 009 2019-04-14 2019-04-14 Emergency [facility] 1.2.840.114 [id number] [facility] 17:25:25 17:58:00 Ad Carranza 350.1.13.10 i ty of [place] 4.[address] [place] [id number] 2019-04-14 2019-04-14 Emergency [facility] 1.2.840.114 [id number] 17:25:25 17:58:00 Ad Carranza 350.1.13.10 [place] 4.2.7.2.686 Susan [id number] [facility] 2019-03-18 2019-03-18 Emergency Vonda Aguila [facility] 1.2.840.114 [id number] [facility] 22:34:35 23:51:00 Maribel Carranza 350.1.13.10 i ty of [place] 4.2.7.2.686 [facility] [id number] [address] 2019-03-18 2019-03-18 Emergency Vonda Aguila [place] 1.2.840.114 [id number] 22:34:35 23:51:00 Maribel Carranza 350.1.13.10 [place] 4.2.7.2.686 Susan [id number] 084 2017-04-09 2017-04-09 Emergency [facility] [id number] [place] 00:00:00 00:00:00 Health 2017-04-09 2017-04-09 [facility] [id number] [place] 00:00:00 00:00:00 [facility] 2017-04-08 2017-04-08 [facility] [id number] [place] 22:35:00 22:35:00 Health 2017-04-08 2017-04-08 [facility] [id number] 8 [place] 00:00:00 00:00:00 Health Results Test Description Test Time Test Comments Results Result Comments Source VAGINAL PATHOGENS DNA PANEL 2021-12-22 21:19:07 Test Item Value Reference Range Interpretation Comme nts DEMIAN SPECIES (test code = 97892) NEGATIVE NEGATIVE G. VAGINALIS (test code = 37408) POSITIVE NEGATIVE A T. VAGINALIS (test code = 46805) NEGATIVE NEGATIVE [id number] 04:51:55 Test Item Value Reference Range Interpretation Comments RPR RESULT (test code = NON-REACTIVE NON-REACTIVE 3501) RPR TITER (test code = 3500) NOT INDIC. TITER NOT INDIC. HEPATITIS PANEL, [id number] 04:00:28 Test Item Value Reference Range Interpretation Comments HEPATITIS A IgM (test NON-REACTIVE NON-REACTIVE code = 82124) HEPATITIS B CORE IgM NON-REACTIVE NON-REACTIVE (test code = 4644) HEPATITIS B SURF AG NON-REACTIVE NON-REACTIVE (test code = 2739) HEPATITIS C ANTIBODY NON-REACTIVE NON-REACTIVE (test code = 4675) INTERPRETATION (NOTE) Hepatiti s A HEPATITIS A: (test serology shows no code = 2552) evidence of acu te hepatitis A. INTERPRETATION (NOTE) Hepatiti s B HEPATITIS B: (test serology shows no code = 62357) evidence of ac fabi hepatitis B and no indication of exposure to hepatitis B vir us in the previous si xto eight months. INTERPRETATION (NOTE) Hepatiti s C HEPATITIS C: (test serology shows no code = 80836) evidence of ex posure to hepatitisC v irus at this time. It can take up to 12 months after exposure tothe hepatitis C vir us for antibodies to become detectab le in the blood i n certain patient s. UNLESS OTHE RWISE INDICATED, ALL TESTING PERFORM ED ATCLINICAL PATH [facility]LOGY LABORATORIES, I AR. [address] [place] [address] 4 [employer] TRAINING INSTRUCTOR: MARYLIN LIZ M.D. CLIA NUMBER [id number] CAP ACCREDITATION N O. [id number] HIV 1/2 4TH GEN, RFLX [id number] 04:00:28 Test Item Value Reference Range Interpretation Comments HIV 1/2 4TH GEN, RFLX CONF (test NON-REACTIVE NON-REACTIVE code = 3514) POCT [id number] 17:30:00 Test Item Value Reference Range Interpretation Comments POCT PREG (test code = 1605) NEGATIVE On board controls acceptable with PRESENT C Line (test code = 3574) POCT PREG LOT # (test code = 3575) [id number] POCT PREG TEST DATE (test 10/18/2022 code = 3576) Lab Interpretation (test code = Normal 72628-7) [id number] 03:23:00 Test Item Value Reference Range Interpretation Comments POCT PREG (test code = 1605) negative On board controls acceptable with present C Line (test code = 3574) POCT PREG LOT # (test code = 3575) [id number] POCT PREG TEST DATE (test 2022-10-18 code = 3576) Lab Interpretation (test code = Normal 95917-9) [facility] [id number] 20:17:20 Test Item Value Reference Range Interpretation [...] RDW-SD (test code = 43.7 fL 39.0-49.9 14644-4) RDW-CV (test code = 13.0 % 12.0-15.5 788-0) PLT (test code = See_Comment H [Automated 777-3) message] The sy stem which generated this result transmitted reference range : 166 - 358 10*3/ ?L. The reference r dinora was not used to interpret this result as normal/abnormal . MPV (test code = 9.6 fL 9.5-12.9 62041-7) NRBC/100 WBC (test See_Comment [Automat ed code = 4024422521) message] The system which generated this result transmitted reference range : 0.0 - 10.0 /100 WBCs. The refer ence range was not u sed to interpret th is result as normal/abnormal . NRBC x10^3 (test code <0.01 See_Comment [Auto mated = 6363136347) message] The s ystem which generated this result transmitted reference range : 10*3/?L. The reference range was not used to interpret this result as normal/abnormal . GRAN MAT (NEUT) % 53.3 % (test code = 770-8) IMM GRAN % (test code 0.50 % = 8409463480) LYMPH % (test code = 39.2 % 736-9) MONO % (test code = 5.3 % 5905-5) EOS % (test code = 1.1 % 713-8) BASO % (test code = 0.6 % 706-2) GRAN MAT x10^3(ANC) 6.66 10*3/uL 1.88-7.09 (test code = 0744072637) IMM GRAN x10^3 (test 0.06 10*3/uL 0.00-0.06 code = 2531569649) LYMPH x10^3 (test code 4.91 10*3/uL 1.32-3.29 H = 731-0) MONO x10^3 (test code 0.66 10*3/uL 0.33-0.92 = 742-7) EOS x10^3 (test code = 0.14 10*3/uL 0.03-0.39 711-2) BASO x10^3 (test code 0.08 10*3/uL 0.01-0.07 H = 704-7) REACT LYMPHS (test Rare code = 6652835765) Lab Interpretation Abnormal (test code = 71370-1) [facility]. METABOLIC PANEL ([id number])2021-09-15 19:38:55 Test Item Value Reference Range Interpretation Comments NA (test code = 137 mmol/L 135-145 0627113757) K (test code = 4.2 mmol/L 3.5-5.0 8697720904) CL (test code = 108 mmol/L 98-108 6313736467) CO2 TOTAL (test code = 22 mmol/L 23-31 L 7318949736) AGAP (test code = 2-16 6290270479) BUN (test code = 8 mg/dL 7-23 6122369794) GLUCOSE (test code = 91 mg/dL 70-110 9979852296) CREATININE (test code = 0.54 mg/dL 0.50-1.04 8772911370) TOTAL BILI (test code = 0.5 mg/dL 0.1-1.0 3644285546) CALCIUM (test code = 9.3 mg/dL 8.6-10.6 2411801676) T PROTEIN (test code = 8.1 g/dL 6.3-8.2 6044558294) ALBUMIN (test code = 4.8 g/dL 3.5-5.0 9691712544) ALK PHOS (test code = 93 U/L 34-122 8181910634) ALTv (test code = 18 U/L 5-35 1742-6) AST(SGOT) (test code = 26 U/L 13-40 0678658666) eGFR (test code = mL/min/1.73m2 9069450581) DIEGO (test code = DIEGO) Association of [...] tests). Lab Interpretation Abnormal (test code = 75113-2) [facility] 19:25[facility]19 Test Item Value Reference Range Interpretation Comments LIPASE (test code = 3883924920) 108 U/L 0-220 Lab Interpretation (test code = Normal 24850-5) [facility] [id number] 19:00:00 Test Item Value Reference Range Interpretation Comments POCT PREG (test code = 1605) negative On board controls acceptable with present C Line (test code = 3574) POCT PREG LOT # (test code = 3575) [id number] POCT PREG TEST DATE (test code = 3576) Lab Interpretation (test code = Normal 04532-9) [facility]. METABOLIC PANEL ([id number])2021-08-21 23:29:45 Test Item Value Reference Range Interpretation Comments NA (test code = 135 mmol/L 135-145 9587709138) K (test code = 4.2 mmol/L 3.5-5.0 7630565853) CL (test code = 103 mmol/L 98-108 9643538871) CO2 TOTAL (test code 24 mmol/L 23-31 = 0236745958) AGAP (test code = 2-16 1541659232) BUN (test code = 7 mg/dL 7-23 5171265148) GLUCOSE (test code = 102 mg/dL 70-110 7784652086) CREATININE (test code 0.52 mg/dL 0.50-1.04 = 0597191795) TOTAL BILI (test code 0.4 mg/dL 0.1-1.1 = 1767362415) CALCIUM (test code = 9.3 mg/dL 8.6-10.6 6018155185) T PROTEIN (test code 7.8 g/dL 6.3-8.2 = 2280005675) ALBUMIN (test code = 4.6 g/dL 3.5-5.0 5064535072) ALK PHOS (test code = 95 U/L 34-122 3516535887) ALTv (test code = 18 U/L 5-35 1742-6) AST(SGOT) (test code 27 U/L 13-40 = 3527322785) eGFR (test code = mL/min/1.73m2 1793066191) DIEGO (test code = DIEGO) Association of [...] or urine or abnormalities in imaging tests). [facility] WITH [id number] 23:07:05 Test Item Value Reference Range Interpretation Comments WBC (test code = See_Comment H [Automated 3593-2) message] The sy stem which generated this result transmitted reference range : 4.30 - 11.10 10*3/?L. The reference range was not used to interpret this result as normal/abnormal . RBC (test code = See_Comment [Automated 373-8) message] The sy stem which generated this [...] RDW-SD (test code = 44.0 fL 39.0-49.9 52591-2) RDW-CV (test code = 12.8 % 12.0-15.5 788-0) PLT (test code = See_Comment H [Automated 777-3) message] The sy stem which generated this result transmitted reference range : 166 - 358 10*3/ ?L. The reference r dinora was not used to interpret this result as normal/abnormal . MPV (test code = 9.8 fL 9.5-12.9 84070-7) NRBC/100 WBC (test See_Comment [Automat ed code = 9256945607) message] The system which generated this result transmitted reference range : 0.0 - 10.0 /100 WBCs. The refer ence range was not u sed to interpret th is result as normal/abnormal . NRBC x10^3 (test code <0.01 See_Comment [Auto mated = 7990886812) message] The s ystem which generated this result transmitted reference range : 10*3/?L. The reference range was not used to interpret this result as normal/abnormal . GRAN MAT (NEUT) % 58.5 % (test code = 770-8) IMM GRAN % (test code 0.50 % = 2023983084) LYMPH % (test code = 33.9 % 736-9) MONO % (test code = 5.1 % 5905-5) EOS % (test code = 1.2 % 713-8) BASO % (test code = 0.8 % 706-2) GRAN MAT x10^3(ANC) 6.69 10*3/uL 1.88-7.09 (test code = 0949334686) IMM GRAN x10^3 (test 0.06 10*3/uL 0.00-0.06 code = 6295562652) LYMPH x10^3 (test code 3.88 10*3/uL 1.32-3.29 H = 731-0) MONO x10^3 (test code 0.58 10*3/uL 0.33-0.92 = 742-7) EOS x10^3 (test code = 0.14 10*3/uL 0.03-0.39 711-2) BASO x10^3 (test code 0.09 10*3/uL 0.01-0.07 H = 704-7) Lab Interpretation Abnormal (test code = 04039-6) [facility] [id number] 22:39:00 Test Item Value Reference Range Interpretation Comments POCT PREG (test code = 1605) negative On board controls acceptable with present C Line (test code = 3574) POCT PREG LOT # (test code = 3575) [id number] POCT PREG TEST DATE (test 10/18/2022 code = 3576) Lab Interpretation (test code = Normal 09453-7) [facility] 22:21:43 Test Item Value Reference Range Interpretation Comments FREE T4 (test code = See_Comment [Autom ated message] 9777705118) The system Viajala generated this result transmitted ref erence range: 0.78 - 2 .20 ng/dL:. The ref erence range was not u sed to interpret this result as normal/abnor mal. Lab Interpretation (test Normal code = 53237-3) [facility] [id number] 22:21:43 Test Item Value Reference Range Interpretation Comments FREE T4 (test code = See_Comment [Autom ated message] 1553543270) The system Viajala generated this result transmitted ref erence range: 0.78 - 2 .20 ng/dL:. The ref erence range was not u sed to interpret this result as normal/abnor mal. Lab Interpretation (test Normal code = 29672-9) [id number] 21:24:56 Test Item Value Reference Interpretation Comments Range TROPONIN I (test <0.012 See_Comment [Automated code = 0910387430) message] The system which generated this result [...] biotin. Lab Interpretation Normal (test code = 08299-3) [facility] [id number] 21:24:56 Test Item Value Reference Interpretation Comments Range TROPONIN I (test <0.012 See_Comment [Automated code = 8349918406) message] The system which generated this result [...] biotin. Lab Interpretation Normal (test code = 75628-4) [facility] 21:14:38 Test Item Value Reference Range Interpretation Comments MAGNESIUM (test code = 3812848613) 1.7 mg/dL 1.7-2.4 Lab Interpretation (test code = Normal 13305-4) [facility] 21:14[facility]38 Test Item Value Reference Range Interpretation Comments MAGNESIUM (test code = 5095258977) 1.7 mg/dL 1.7-2.4 Lab Interpretation (test code = Normal 39753-0) [facility]OL[facility] PAN[facility] (63140)2021-04-26 21:14:18 Test Item Value Reference Range Interpretation Comments NA (test code = 139 mmol/L 135-145 1789727911) K (test code = 4.1 mmol/L 3.5-5.0 3353630767) CL (test code = 110 mmol/L 98-108 H 8329792638) CO2 TOTAL (test code = 25 mmol/L 23-31 4633770264) AGAP (test code = 2-16 8632256057) BUN (test code = 6 mg/dL 7-23 L 5932028993) GLUCOSE (test code = 96 mg/dL 70-110 8196290353) CREATININE (test code = 0.50 mg/dL 0.50-1.04 5285967680) TOTAL BILI (test code = 0.2 mg/dL 0.1-1.3 4691817502) CALCIUM (test code = 8.8 mg/dL 8.6-10.6 1965858648) T PROTEIN (test code = 6.9 g/dL 6.3-8.2 0782682912) ALBUMIN (test code = 4.0 g/dL 3.5-5.0 7376970807) ALK PHOS (test code = 73 U/L 34-122 1634143570) ALTv (test code = 15 U/L 5-35 1742-6) AST(SGOT) (test code = 20 U/L 13-40 2073852703) eGFR (test code = mL/min/1.73m2 1834011421) DIEGO (test code = DIEGO) Association of [...] tests). Lab Interpretation Abnormal (test code = 88074-5) [facility]. METABOLIC PANEL (51091)2021-04-26 21:14:18 Test Item Value Reference Range Interpretation Comments NA (test code = 139 mmol/L 135-145 5207187218) K (test code = 4.1 mmol/L 3.5-5.0 0804629008) CL (test code = 110 mmol/L 98-108 H 9258799121) CO2 TOTAL (test code = 25 mmol/L 23-31 8290493561) AGAP (test code = 2-16 1661965813) BUN (test code = 6 mg/dL 7-23 L 8802167698) GLUCOSE (test code = 96 mg/dL 70-110 0509973657) CREATININE (test code = 0.50 mg/dL 0.50-1.04 4509773291) TOTAL BILI (test code = 0.2 mg/dL 0.1-1.9 4892072212) CALCIUM (test code = 8.8 mg/dL 8.6-10.6 7243393867) T PROTEIN (test code = 6.9 g/dL 6.3-8.2 9392844505) ALBUMIN (test code = 4.0 g/dL 3.5-5.0 0641003556) ALK PHOS (test code = 73 U/L 34-122 5619558039) ALTv (test code = 15 U/L 5-35 1742-6) AST(SGOT) (test code = 20 U/L 13-40 7168051237) eGFR (test code = mL/min/1.73m2 3784595227) DIEGO (test code = DIEGO) Association of [...] tests). Lab Interpretation Abnormal (test code = 29560-3) [facility] [id number] 21:14:17 Test Item Value Reference Range Interpretation Comments CK (test code = 5769464023) 35 U/L 33-194 Lab Interpretation (test code = Normal 56800-4) [facility] [id number] 21:14:17 Test Item Value Reference Range Interpretation Comments CK (test code = 0226906010) 35 U/L 33-194 Lab Interpretation (test code = Normal 95067-0) [facility]IM[facility]ASSAY[facility] - COMPREHENSIVE DRUG SCREEN W/O [id number] 20:20:42 Test Item Value Reference Range Interpretation Comments AMPHET (test code = Negative Negative 2191480032) NASEEM U (test code = Negative Negative 2665066289) BENZO U (test code = Negative Negative 1143917836) Cocaine Metabolite (test Negative Negative code = 0664717254) METHADONE (test code = Negative Negative 4916437551) OPIATES (test code = Negative Negative 9055534353) PCP (test code = Negative Negative 0245982810) THC (test code = Presumptive Positive Negative A 5372206556) DIEGO (test code = DIEGO) Urine Drug [...] testing). Lab Interpretation (test Abnormal code = 18875-3) [facility] (IMMUNO[facility]SAY[facility] - COMPREHENSIVE DRUG SCREEN W/O [id number] 20:20:42 Test Item Value Reference Range Interpretation Comments AMPHET (test code = Negative Negative 1751920451) NASEEM U (test code = Negative Negative 4640117962) BENZO U (test code = Negative Negative 1848582820) Cocaine Metabolite (test Negative Negative code = 3733307090) METHADONE (test code = Negative Negative 1442476590) OPIATES (test code = Negative Negative 9670610257) PCP (test code = Negative Negative 6951126013) THC (test code = Presumptive Positive Negative A 7377078835) DIEGO (test code = DIEGO) Urine Drug [...] testing). Lab Interpretation (test Abnormal code = 99803-1) [facility] [id number] 20:17:29 Test Item Value Reference Range Interpretation Comments ESR (test code = See_Comment [Automated message] 1286630030) The system Viajala generated this result transmitted ref erence range: 0 - 20 m m/HR. The reference r dinora was not used to interpret this result as normal/abnor mal. Lab Interpretation (test Normal code = 09903-0) [facility] [id number] 20:17:29 Test Item Value Reference Range Interpretation Comments ESR (test code = See_Comment [Automated message] 0341046054) The system Viajala generated this result transmitted ref erence range: 0 - 20 m m/HR. The reference r dinora was not used to interpret this result as normal/abnor mal. Lab Interpretation (test Normal code = 46407-7) [facility] [id number] 20:14:11 Test Item Value Reference Range Interpretation Comments TSH (test code = See_Comment [Automated message] 3625155255) The system Viajala generated this result transmitted ref erence range: 0.45 - 4 .70 mIU/L. The refe rence range was not u sed to interpret this result as normal/abnor mal. Lab Interpretation (test Normal code = 64234-3) [facility] [id number] 20:14:11 Test Item Value Reference Range Interpretation Comments TSH (test code = See_Comment [Automated message] 2079063624) The system Viajala generated this result transmitted ref erence range: 0.45 - 4 .70 mIU/L. The refe rence range was not u sed to interpret this result as normal/abnor mal. Lab Interpretation (test Normal code = 06025-7) [facility] [id number] 20:03:34 Test Item Value Reference Range Interpretation Comments NT-proBNP (test code 42 pg/mL See_Comment [Autom ated = 5753594737) message] The system which generated this result transmitted reference range : <=125. The reference range was not used to interpret this result as normal/abnormal . DIEGO (test code = DIEGO) Biotin has been reported to cause a negative bias, interpret results relative to patient's use of biotin. Lab Interpretation Normal (test code = 86926-0) [facility] [id number] 20:03:34 Test Item Value Reference Range Interpretation Comments NT-proBNP (test code 42 pg/mL See_Comment [Autom ated = 5992617375) message] The system which generated this result transmitted reference range : <=125. The reference range was not used to interpret this result as normal/abnormal . DIEGO (test code = DIEGO) Biotin has been reported to cause a negative bias, interpret results relative to patient's use of biotin. Lab Interpretation Normal (test code = 03455-7) [facility] WITH [id number] 19:45:17 Test Item Value Reference Range Interpretation Comments WBC (test code = See_Comment H [Automated 7390-2) message] The sy stem which generated this [...] RDW-SD (test code = 43.4 fL 39.0-49.9 64112-3) RDW-CV (test code = 12.5 % 12.0-15.5 788-0) PLT (test code = See_Comment H [Automated 777-3) message] The sy stem which generated this result transmitted reference range : 166 - 358 10*3/ ?L. The reference r dinora was not used to interpret this result as normal/abnormal . MPV (test code = 10.1 fL 9.5-12.9 16596-8) NRBC/100 WBC (test See_Comment [Automat ed code = 9613632593) message] The system which generated this result transmitted reference range : 0.0 - 10.0 /100 WBCs. The refer ence range was not u sed to interpret th is result as normal/abnormal . NRBC x10^3 (test code <0.01 See_Comment [Auto mated = 3710068152) message] The s ystem which generated this result transmitted reference range : 10*3/?L. The reference range was not used to interpret this result as normal/abnormal . GRAN MAT (NEUT) % 60.0 % (test code = 770-8) IMM GRAN % (test code 0.80 % = 4184271893) LYMPH % (test code = 31.1 % 736-9) MONO % (test code = 5.5 % 5905-5) EOS % (test code = 2.0 % 713-8) BASO % (test code = 0.6 % 706-2) GRAN MAT x10^3(ANC) 7.94 10*3/uL 1.88-7.09 H (test code = 6792249176) IMM GRAN x10^3 (test 0.11 10*3/uL 0.00-0.06 H code = 7041222972) LYMPH x10^3 (test code 4.13 10*3/uL 1.32-3.29 H = 731-0) MONO x10^3 (test code 0.73 10*3/uL 0.33-0.92 = 742-7) EOS x10^3 (test code = 0.27 10*3/uL 0.03-0.39 711-2) BASO x10^3 (test code 0.08 10*3/uL 0.01-0.07 H = 704-7) Lab Interpretation Abnormal (test code = 46557-6) [facility] WITH [id number] 19:45:17 Test Item Value Reference Range Interpretation [...] RDW-SD (test code = 43.4 fL 39.0-49.9 14456-4) RDW-CV (test code = 12.5 % 12.0-15.5 788-0) PLT (test code = See_Comment H [Automated 777-3) message] The sy stem which generated this result transmitted reference range : 166 - 358 10*3/ ?L. The reference r dinora was not used to interpret this result as normal/abnormal . MPV (test code = 10.1 fL 9.5-12.9 26725-4) NRBC/100 WBC (test See_Comment [Automat ed code = 9703539238) message] The system which generated this result transmitted reference range : 0.0 - 10.0 /100 WBCs. The refer ence range was not u sed to interpret th is result as normal/abnormal . NRBC x10^3 (test code <0.01 See_Comment [Auto mated = 5482458446) message] The s ystem which generated this result transmitted reference range : 10*3/?L. The reference range was not used to interpret this result as normal/abnormal . GRAN MAT (NEUT) % 60.0 % (test code = 770-8) IMM GRAN % (test code 0.80 % = 4865690549) LYMPH % (test code = 31.1 % 736-9) MONO % (test code = 5.5 % 5905-5) EOS % (test code = 2.0 % 713-8) BASO % (test code = 0.6 % 706-2) GRAN MAT x10^3(ANC) 7.94 10*3/uL 1.88-7.09 H (test code = 4676707588) IMM GRAN x10^3 (test 0.11 10*3/uL 0.00-0.06 H code = 8457735438) LYMPH x10^3 (test code 4.13 10*3/uL 1.32-3.29 H = 731-0) MONO x10^3 (test code 0.73 10*3/uL 0.33-0.92 = 742-7) EOS x10^3 (test code = 0.27 10*3/uL 0.03-0.39 711-2) BASO x10^3 (test code 0.08 10*3/uL 0.01-0.07 H = 704-7) Lab Interpretation Abnormal (test code = 39125-8) [facility]-19 (ID NOW RAPID TESTING)2021-04-26 19:33:11 Test Item Value Reference Range Interpretation Comments SARS-CoV-2 Rapid ID NOW Not Detected Not Detected (test code = 21842-0) DIEGO (test code = DIEGO) ID NOW COVID-19 Assay is an isothermal nucleic acid amplification test intended for the qualitative detection of nucleic acid from SARS-CoV-2 viral RNA in nasopharyngeal (EQUAL OPPORTUNITY REPRESENTATIVE) specimens. It is used under Emergency Use [...] indicated. Lab Interpretation Normal (test code = 96978-3) [facility]-19 (ID NOW RAPID TESTING)2021-04-26 19:33:11 Test Item Value Reference Range Interpretation Comments SARS-CoV-2 Rapid ID NOW Not Detected Not Detected (test code = 48257-9) DIEGO (test code = DIEGO) ID NOW COVID-19 Assay is an isothermal nucleic acid amplification test intended for the qualitative detection of nucleic acid from SARS-CoV-2 viral RNA in nasopharyngeal (EQUAL OPPORTUNITY REPRESENTATIVE) specimens. It is used under Emergency Use [...] indicated. Lab Interpretation Normal (test code = 87103-5) [id number]:30:19 1. ?No acute intracranial abnormality. ? [...] reviewed this study and agree with the abovereport.[facility] [id number] 19:30:19 1. ?No acute intracranial abnormality. ? [...] reviewed this study and agree with the abovereport[facility] 2021-04-26 19:30:19 1. [...] reviewed this study and agree with the abovereport.[facility] [id number] 19:30:19 1. ?No acute intracranial abnormality. ? [...] reviewed this study and agree with the abovereport.[facility]:29[facility]14 Test Item Value Reference Range Interpretation Comments APPEARANCE (test code = Clear Clear 8004987841) COLOR (test code = Yellow Yellow 4176488057) PH (test code = 4.8-8.0 3654361814) SP GRAVITY (test code = 1.003-1.030 6640634229) GLU U QUAL (test code = Normal Normal 5800427375) BLOOD (test code = Negative Negative 5343023948) KETONES (test code = Negative Negative 9167550974) PROTEIN (test code = Negative Negative 2887-8) UROBILIN (test code = Normal Normal 6387616473) BILIRUBIN (test code = Negative Negative 6603487711) NITRITE (test code = Negative Negative 9849217674) LEUK DAKSHA (test code = Negative Negative 6988744735) RBC/HPF (test code = See_Comment [Autom ated message] 0355572448) The system Viaj[employer] generated this result transmitted ref erence range: 0 - 3 HP F. The reference range was not used to int erpret this result as normal/abnormal . WBC/HPF (test code = See_Comment [Autom ated message] 1852764463) The system [employer] generated this result transmitted ref erence range: 0 - 5 HP F. The reference range was not used to int erpret this result as normal/abnormal . BACTERIA (test code = Few Negative A 0897672796) SQ EPITH (test code = HPF 7608172285) Lab Interpretation (test Abnormal code = 51270-0) [facility]14 Test Item Value Reference Range Interpretation Comments APPEARANCE (test code = Clear Clear 7390956283) COLOR (test code = Yellow Yellow 5190533528) PH (test code = 4.8-8.0 6599012269) SP GRAVITY (test code = 1.003-1.030 2621703457) GLU U QUAL (test code = Normal Normal 7612714941) BLOOD (test code = Negative Negative 6483493229) KETONES (test code = Negative Negative 8348860084) PROTEIN (test code = Negative Negative 2887-8) UROBILIN (test code = Normal Normal 8262748395) BILIRUBIN (test code = Negative Negative 6204080867) NITRITE (test code = Negative Negative 2562956806) LEUK DAKSHA (test code = Negative Negative 1344415954) RBC/HPF (test code = See_Comment [Autom ated message] 1498638339) The system [employer] generated this result transmitted ref erence range: 0 - 3 HP F. The reference range was not used to int erpret this result as normal/abnormal . WBC/HPF (test code = See_Comment [Autom ated message] 0423582743) The system [employer] generated this result transmitted ref erence range: 0 - 5 HP F. The reference range was not used to int erpret this result as normal/abnormal . BACTERIA (test code = Few Negative A 7713312642) SQ EPITH (test code = HPF 9532911000) Lab Interpretation (test Abnormal code = 87423-0) [facility] [id number] 18:24:00 Test Item Value Reference Range Interpretation Comments POCT PREG (test code = 1605) negative On board controls acceptable with present C Line (test code = 3574) POCT PREG LOT # (test code = 3575) [id number] POCT PREG TEST DATE (test 08/20/2022 code = 3576) Lab Interpretation (test code = Normal 96359-9) [facility] [id number] 18:24:00 Test Item Value Reference Range Interpretation Comments POCT PREG (test code = 1605) negative On board controls acceptable with present C Line (test code = 3574) POCT PREG LOT # (test code = 3575) [id number] POCT PREG TEST DATE (test 08/20/2022 code = 3576) Lab Interpretation (test code = Normal 68456-0) [facility] 00[facility]35:10 Test Item Value Reference Range Interpretation Comments APPEARANCE (test code = Clear Clear 0891073691) COLOR (test code = Yellow Yellow 6051200150) PH (test code = 4.8-8.0 1612985345) SP GRAVITY (test code = 1.003-1.030 1383389070) GLU U QUAL (test code = Normal Normal 0855104475) BLOOD (test code = 1+ Negative A 2517854279) KETONES (test code = Negative Negative 5700030160) PROTEIN (test code = Negative Negative 2887-8) UROBILIN (test code = Normal Normal 2226028927) BILIRUBIN (test code = Negative Negative 6880973342) NITRITE (test code = Negative Negative 1543234306) LEUK DAKSHA (test code = 75/uL Negative A 2169796629) RBC/HPF (test code = See_Comment H [Autom ated message] 1446658226) The system [employer] generated this result transmitted ref erence range: 0 - 3 HP F. The reference range was not used to int erpret this result as normal/abnormal . WBC/HPF (test code = See_Comment H [Autom ated message] 1674162781) The system [employer] generated this result transmitted ref erence range: 0 - 5 HP F. The reference range was not used to int erpret this result as normal/abnormal . BACTERIA (test code = Few Negative A 1900425406) SQ EPITH (test code = HPF 2870525769) Lab Interpretation (test Abnormal code = 61482-9) [facility] [id number] 00:20:00 Test Item Value Reference Range Interpretation Comments POCT PREG (test code = 1605) negative On board controls acceptable with present C Line (test code = 3574) POCT PREG LOT # (test code = 3575) [id number] POCT PREG TEST DATE (test code = 3576) Lab Interpretation (test code = Normal 63336-0) [facility] STREP SCREEN FOR GROUP [id number] 17:29:00 Test Item Value Reference Range Interpretation Comments Streptococcus pyogenes (group A) Negative Negative antigen (test code = 33374-6) Lab Interpretation (test code = Normal 20067-5) [facility]. METABOLIC PANEL (12472)2020-04-29 17:27:00 Test Item Value Reference Range Interpretation Comments NA (test code = 137 mmol/L 135-145 6718580760) K (test code = 4.7 mmol/L 3.5-5 9717894248) CL (test code = 103 mmol/L 98-108 2130908415) CO2 TOTAL (test code = 23 mmol/L 23-31 4422890361) AGAP (test code = 2-16 3677731578) BUN (test code = 5 mg/dL 7-23 L 1844825490) GLUCOSE (test code = 93 mg/dL 70-110 8816288774) CREATININE (test code = 0.61 mg/dL 0.5-1.04 3754455272) TOTAL BILI (test code = 0.3 mg/dL 0.1-1.4 7020265297) CALCIUM (test code = 9.9 mg/dL 8.6-10.6 8476016843) T PROTEIN (test code = 7.5 g/dL 6.3-8.2 9519875334) ALBUMIN (test code = 4.3 g/dL 3.5-5 8045901149) ALK PHOS (test code = 82 U/L 34-122 8693914862) ALTv (test code = 23 U/L 5-35 1742-6) AST(SGOT) (test code = 36 U/L 13-40 8694949498) eGFR Calculation mL/min/1.73m2 (Non-) (test code = 4617621121) eGFR Calculation mL/min/1.73m2 () (test code = 9233978445) DIEGO (test code = DIEGO) Association of [...] tests). Lab Interpretation Abnormal (test code = 28813-0) [facility] [id number] 17:09:41 No radiographic evidence of osteomyelitis. Preliminary [...] erosion. Surgical clips at theamputation site visualized. [facility], Radiant Results Inft User - 04/29/2020 12:10 [...] reviewed this study and agree with theabove report.[facility] WITH [id number] 17:07:00 Test Item Value Reference Range Interpretation [...] RDW-SD (test code = 44.5 fL 39-49.9 69068-4) RDW-CV (test code = 13.1 % 12-15.5 788-0) PLT (test code = See_Comment H [Automated 777-3) message] The sy stem which generated this result transmitted reference range : 166 - 358 10*3/ ?L. The reference r dinora was not used to interpret this result as normal/abnormal . MPV (test code = 9.6 fL 9.5-12.9 79361-6) NRBC/100 WBC (test See_Comment [Automat ed code = 1381908161) message] The system which generated this result transmitted reference range : 0.0 - 10.0 /100 WBCs. The refer ence range was not u sed to interpret th is result as normal/abnormal . NRBC x10^3 (test code <0.01 See_Comment [Auto mated = 5468056342) message] The s ystem which generated this result transmitted reference range : 10*3/?L. The reference range was not used to interpret this result as normal/abnormal . GRAN MAT (NEUT) % 59.4 % (test code = 770-8) IMM GRAN % (test code 0.70 % = 1516809332) LYMPH % (test code = 31.3 % 736-9) MONO % (test code = 5.8 % 5905-5) EOS % (test code = 2.0 % 713-8) BASO % (test code = 0.8 % 706-2) GRAN MAT x10^3(ANC) 7.54 10*3/uL 1.88-7.09 H (test code = 5055674163) IMM GRAN x10^3 (test 0.09 10*3/uL 0-0.06 H code = 0609023159) LYMPH x10^3 (test code 3.98 10*3/uL 1.32-3.29 H = 731-0) MONO x10^3 (test code 0.74 10*3/uL 0.33-0.92 = 742-7) EOS x10^3 (test code = 0.25 10*3/uL 0.03-0.39 711-2) BASO x10^3 (test code 0.10 10*3/uL 0.01-0.07 H = 704-7) Lab Interpretation Abnormal (test code = 48243-5) [facility] [id number] 16:24:00 Test Item Value Reference Range Interpretation Comments POCT PREG (test code = 1605) negative POCT PREG LOT # (test code = 3575) [id number] POCT PREG TEST DATE (test 03/20/2021 code = 3576) Lab Interpretation (test code = Normal 85853-2) [facility] [id number] 04:24:00 Test Item Value Reference Range Interpretation Comments POCT PREG (test code = 1605) negative On board controls acceptable with yes C Line (test code = 3574) POCT PREG LOT # (test code = 3575) [id number] POCT PREG TEST DATE (test 08/20/2020 code = 3576) Lab Interpretation (test code = Normal 22486-0) [facility] [id number] 13:26:00 Test Item Value Reference Range Interpretation Comments HEMOGLOBIN A1C (BEAKER) (test code = 5.2 % 4.3-6.1 368) CBC W/PLT COUNT & AUTO [id number] 09:42:00 Test Item Value Reference Range Interpretation [...] MORPHOLOGY (BEAKER) (test code Normal = 762) [id number] 07:11:00 Test Item Value Reference Range Interpretation Comments MAGNESIUM (BEAKER) (test code = 1.5 mg/dL 1.6-2.6 L 627) BASIC METABOLIC [id number] 07:11:00 Test Item Value Reference Range Interpretation [...] NOT APPLICABLE FOR DIALYSIS PATIEN TS. LIPID [id number] 07:11:00 Test Item Value Reference Range Interpretation [...] Borderline 130-159 High 160-189 Very High >=190TROPONIN [id number] 06:34:00 Test Item Value Reference Range Interpretation [...] acidosis, acute neurological disease, and persistent tachyarrhythmia.TROPONIN [id number] 23:58:00 Test Item Value Reference Range Interpretation [...]
[2022-01-05] MEDS ORDERED: IBUPROFEN 200 MG TAB PO ONE (13:25)
[2022-01-05] MEDS ORDERED: DIAZEPAM 5 MG TABLET ONE (13:25)
--- NOTE | 2022-01-05 14:00 | EDPHYS ---
Physician Documentation [facility] Name: Natasha Spann Age: 36 yrs Sex: Female : 1985 Arrival Date: 01/05/2022 Time: 10:25 Bed 2 Private MD: ED Physician Girish Hanks HPI: 01/05 10:55 This 36 yrs old Female presents to ER via Ambulatory with complaints of Headache, Neck ms3 and Upper Back Pain. 10:55 The patient complains of pain to the right frontal area, right side of the back of ms3 head, right occipital area and right base of the skull. The patient describes the headache as a pressure. Onset: The symptoms/episode began/occurred this morning. Associated signs and symptoms: Pertinent positives: nausea, Pertinent negatives: fever, Photophobia vomiting. Severity of symptoms: At its worst the pain was a " 8" out of "10", in the emergency department the pain is unchanged. The symptoms are alleviated by nothing. the symptoms are aggravated by movement. 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 Flu vaccine is not up to date. - Social history:: Smoking status: Patient reports the use of cigarette tobacco products, smokes one pack cigarettes per day. Patient uses alcohol, only on a social basis. ROS: 10:55 Constitutional: Negative for fever, and chills. ENT: Negative for injury, pain, and ms3 discharge, Neck: Negative for injury, pain, and swelling, Respiratory: Negative for shortness of breath, cough, wheezing, and pleuritic chest pain, Abdomen/GI: Negative for abdominal pain, nausea, vomiting, diarrhea, and constipation, MS/Extremity: Negative for injury and deformity, Skin: Negative for injury, rash, and discoloration. 10:55 Cardiovascular: 10:55 Neuro: Positive for headache. 10:55 All other systems are negative. Exam: 10:55 Constitutional: This is a well developed, well nourished patient who is awake, alert, ms3 and in no acute distress. Head/Face: Normocephalic, atraumatic. Neck: Trachea midline, no cervical lymphadenopathy. Supple, full range of motion without nuchal rigidity, or vertebral point tenderness. No Meningismus. Chest/axilla: Normal chest wall appearance and motion. Nontender with no deformity. Cardiovascular: Regular rate and rhythm with a normal S1 and S2. No gallops, murmurs, or rubs. Normal PMI, no JVD. No pulse deficits. Respiratory: Lungs have equal breath sounds bilaterally, clear to auscultation and percussion. No rales, rhonchi or wheezes noted. No increased work of breathing, no retractions or nasal flaring. Abdomen/GI: Soft, non-tender, with normal bowel sounds. No distension or tympany. No guarding or rebound. No evidence of tenderness throughout. Skin: Warm, dry with normal turgor. Normal color with no rashes, no lesions, and no evidence of cellulitis. MS/ Extremity: Pulses equal, no cyanosis. Neurovascular intact. Full, normal range of motion. Psych: Awake, alert, with orientation to person, place and time. Behavior, mood, and affect are within normal limits. Vital Signs: 10:29 BP 149 / 96; Pulse 98; Resp 17; Temp 98.1; Pulse Ox 100% ; Weight 77.11 kg; Height 5 ap3 ft. 8 in. (172.72 cm); Pain 10/10; 13:24 BP 121 / 90; Resp 18; ww 10:29 Body Mass Index 25.85 (77.11 kg, 172.72 cm) ap3 MDM: 10:55 Differential diagnosis: Muscle spasm vs Tension DESAI vs SAH. ms3 13:22 Patient medically screened. ms3 13:58 Data reviewed: vital signs, nurses notes. Data interpreted: Pulse oximetry: on room air ms3 is 100 %. Interpretation: normal. Counseling: I had a detailed discussion with the patient and/or guardian regarding: the historical points, exam findings, and any diagnostic results supporting the discharge/admit diagnosis, the need for outpatient follow up, to return to the emergency department if symptoms worsen or persist or if there are any questions or concerns that arise at home. ED course: Discussed exam findings with patient. Patient to follow-up with primary care physician in 2-3 days. Patient understands and agrees with plan. All questions were answered. Return precautions discussed include worsening symptoms, or any other concerns. On reevaluation patient is alert and oriented x4, in no apparent distress, nontoxic-appearing, speaking full sentences, ambulatory in emergency department. . Administered Medications: 13:24 Drug: Valium (diazepam) 5 mg Route: PO; ww 14:07 Follow up: Response: No adverse reaction; Pain is decreased tw2 13:24 Drug: Ibuprofen 600 mg Route: PO; ww 14:07 Follow up: Response: No adverse reaction; Pain is decreased tw2 Disposition Summary: 01/05/22 14:00 Discharge Ordered Location: Home ms3 Condition: Stable ms3 Diagnosis - muscle spasm ms3 - neck pain ms3 - Headache ms3 Followup: ms3 - With: Antoine Harvey MD - When: 2 - 3 days - Reason: Recheck today's complaints Discharge Instructions: - Discharge Summary Sheet ms3 - General Headache Without Cause ms3 - Muscle Cramps and Spasms ms3 Forms: - Medication Reconciliation Form ms3 - Thank You Letter ms3 - Antibiotic Education ms3 - Prescription Opioid Use ms3 Prescriptions: - Cyclobenzaprine 10 mg Oral Tablet - take 1 tablet by ORAL route every 8 hours As needed; 30 tablet; Refills: 0, ms3 Product Selection Permitted Signatures: Angle Beatty RN RN ap3 Girish Hanks DO DO ms3 Maribell Brizuela RN RN ww Mgagi Collier RN tw2 Corrections: (The following items were deleted from the chart) 10:32 10:31 Home Meds: Vistaril 25 mg Oral cap; ap3 ap3 10:32 10:31 Home Meds: Zoloft 100 mg Oral tab 1 tab once daily; ap3 ap3
--- NOTE | 2022-01-05 14:00 | ER ---
Nurse's Notes [facility] Name: Natasha Spann Age: 36 yrs Sex: Female : 1985 Arrival Date: 01/05/2022 Time: 10:25 Bed 2 Private MD: Diagnosis: muscle spasm;neck pain;Headache Presentation: 01/05 10:29 Chief complaint: Patient states: she was moving center blocks yesterday, and isn't sure ap3 if she over did it, because she woke up with morning with tension pain in her neck/upper back and a "terrible headache". Coronavirus screen: At this time, the client does not indicate any symptoms associated with coronavirus-19. Ebola Screen: No symptoms or risks identified at this time. Initial Sepsis Screen: Does the patient meet any 2 criteria? No. Patient's initial sepsis screen is negative. Does the patient have a suspected source of infection? No. Patient's initial sepsis screen is negative. Risk Assessment: Do you want to hurt yourself or someone else? Patient reports no desire to harm self or others. Onset of symptoms was January 05, 2022. 10:29 Method Of Arrival: Ambulatory ap3 10:29 Acuity: EMILY 3 ap3 Triage Assessment: 10:32 Headache History: Other patient states this is different because it's not a sensitivity ap3 to light at this time, but a sensitivity to movement. General: Appears uncomfortable, Behavior is cooperative. Pain: Complains of pain in head, neck and upper back Pain currently is 10 out of 10 on a pain scale. Pain began gradually, this morning Alleviated by rest, Aggravated by increased activity, repositioning, Also complains of no other associated symptoms. Neuro: Level of Consciousness is awake, alert, obeys commands, Oriented to person, place, time, situation, Appropriate for age Gait is steady, Speech is normal, Facial symmetry appears normal. Cardiovascular: Patient's skin is warm and dry. Respiratory: Airway is patent Respiratory effort is even, unlabored, Respiratory pattern is regular, symmetrical. 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 Flu vaccine is not up to date. - Social history:: Smoking status: Patient reports the use of cigarette tobacco products, smokes one pack cigarettes per day. Patient uses alcohol, only on a social basis. Screenin:34 Abuse screen: Denies threats or abuse. Nutritional screening: No deficits noted. ap3 Tuberculosis screening: No symptoms or risk factors identified. 10:34 Fall Risk Fall in past 12 months (25 points). Secondary diagnosis (15 points) impaired ap3 mobility, left BKA. No IV (0 pts). Ambulatory Aid- None/Bed Rest/Nurse Assist (0 pts). Gait- Impaired (20 pts.). Mental Status- Oriented to own ability (0 pts). Total Steve Fall Scale indicates High Risk Score (45 or more points). Assessment: 13:24 General: Appears in no apparent distress. Behavior is cooperative. Pain: Complains of ww pain in base of the skull. Neuro: Level of Consciousness is awake, alert, obeys commands, Oriented to person, place, time, situation, Speech is normal. Cardiovascular: Patient's skin is warm and dry. Respiratory: Airway is patent Respiratory effort is even, unlabored, Respiratory pattern is regular, symmetrical. 14:06 Reassessment: Patient appears in no apparent distress at this time. No changes from tw2 previously documented assessment. Patient and/or family updated on plan of care and expected duration. Pain level reassessed. Patient is alert, oriented x 3, equal unlabored respirations, skin warm/dry/pink. Patient states feeling better. Vital Signs: 10:29 BP 149 / 96; Pulse 98; Resp 17; Temp 98.1; Pulse Ox 100% ; Weight 77.11 kg; Height 5 ap3 ft. 8 in. (172.72 cm); Pain 10/10; 13:24 BP 121 / 90; Resp 18; ww 10:29 Body Mass Index 25.85 (77.11 kg, 172.72 cm) ap3 ED Course: 10:25 Patient arrived in ED. am2 10:31 Triage completed. ap3 10:34 Arm band placed on right wrist. ap3 10:35 Patient has correct armband on for positive identification. ap3 10:38 Girish Hanks DO is Attending Physician. ms3 13:58 Antoine Harvey MD is Referral Physician. ms3 14:05 Maggi Collier, RN is Primary Nurse. tw2 14:07 No provider procedures requiring assistance completed. Patient did not have IV access tw2 during this emergency room visit. Administered Medications: 13:24 Drug: Valium (diazepam) 5 mg Route: PO; ww 14:07 Follow up: Response: No adverse reaction; Pain is decreased tw2 13:24 Drug: Ibuprofen 600 mg Route: PO; ww 14:07 Follow up: Response: No adverse reaction; Pain is decreased tw2 Medication: 10:34 VIS not applicable for this client. ap3 Outcome: 14:00 Discharge ordered by . ms3 14:07 Discharged to home ambulatory. tw2 14:07 Condition: stable 14:07 Discharge instructions given to patient, Instructed on discharge instructions, follow up and referral plans. no drinking with medication, no driving heavy equipment, medication usage, Demonstrated understanding of instructions, follow-up care, medications, Prescriptions given X 1. 14:07 Patient left the ED. tw2 Signatures: Maggi Collier RN RN tw2 Angle Gonzáles am2 Angle Beatty RN RN ap3 Girish Hanks DO DO ms3 Maribell Brizuela, RN RN ww Corrections: (The following items were deleted from the chart) 10:32 10:31 Home Meds: Vistaril 25 mg Oral cap; ap3 ap3 10:32 10:31 Home Meds: Zoloft 100 mg Oral tab 1 tab once daily; ap3 ap3
[2022-01-05 14:57] VITALS: TEMP 98.1; O2SAT 100
[2022-01-05 14:58] VITALS: BP 121/90
== END 2022-01-05 14:07 | disposition home or self-care (01) ==
LOC: ER 10:25
DX: R51.9 Headache, unspecified (principal); M62.838 Other muscle spasm; M54.2 Cervicalgia; F31.9 Bipolar disorder, unspecified; F17.210 Nicotine dependence, cigarettes, uncomplicated; Z88.3 Allergy status to other anti-infective agents; Z88.8 Allergy status to other drugs, medicaments and biological substances
CPT/HCPCS: 99283

== ENCOUNTER 2022-02-23 07:13 | Emergency (ER) | payer SELFPAY ==
[2022-02-23 07:38] LABS: Urine Glucose Negative (Negative); Urine Specific Gravity 1.015 (1.005-1.030)
[2022-02-23 07:39] LABS: Urine Blood 3+ (Negative); Urine Protein Negative (Negative); Urine pH 7.5 (5.0-7.0)
[2022-02-23 07:43] LABS: Absolute Lymphocytes (CBC) 2.8 K/uL (0.7-4.9); Lymphocytes % 23.8 % (15.3-44.8); MCV 90.7 fL (80-100); MPV 7.4 fL (7.6-11.3); RBC Red Blood Cell Count 4.74 M/uL (3.86-4.86)
[2022-02-23] MEDS ORDERED: MORPHINE 4 MG/ML SYR ONE (07:49)
[2022-02-23] MEDS ORDERED: NA CHLORIDE 0.9% 1,000 ML ONE (07:49)
[2022-02-23] MEDS ORDERED: ONDANSETRON 4 MG/2 ML VIAL ONE (07:49)
[2022-02-23 08:09] LABS: BUN Blood Urea Nitrogen 10 mg/dL (7-18); Bicarbonate 23 mmol/L (21-32); Glomerular Filtration Rate 117 ml/min (=/>90); Glucose Level 106 mg/dL (74-106); Potassium 3.9 mmol/L (3.5-5.1); Sodium Level 135 mmol/L (136-145)
[2022-02-23 08:11] LABS: HCG, Quantitative < 1 mIU/mL (1-3)
[2022-02-23 08:29] LABS: Urine Bacteria 20-50 /HPF (<20); Urine Mucus S /HPF (NONE SEEN); Urine RBC <5 /HPF (NONE SEEN)
[2022-02-23 08:30] LABS: Urine Trichomonas PRESENT (NONE SEEN)
--- NOTE | 2022-02-23 09:08 | RAD REPORT ---
EXAM DESCRIPTION: CT - Abdomen Pelvis W Contrast - 02/23/2022 8:59 am CLINICAL HISTORY: Abdominal pain COMPARISON: September 2021 TECHNIQUE: Computed axial tomography of the abdomen pelvis was obtained. 100 cc Isovue-300 was admin istered intravenously. Oral contrast was not requested which limits evaluation of bowel and appendix All CT scans are performed using dose optimization technique as appropriate and may include automated exposure control or mA/KV adjustment according to patient size. FINDINGS: Small hepatic cyst Spleen, pancreas, adrenal and kidneys appear unremarkable. There is no evidence of diverticulitis. A small duodenal diverticulum 3 centimeter left ovarian cyst without significant free fluid. Tampon within the vagina IMPRESSION: 3 centimeter left ovarian cyst without significant free fluid
[2022-02-23] MEDS ORDERED: metroNIDAZOLE 500 MG TABLET ONE (09:27)
--- NOTE | 2022-02-23 11:36 | ER ---
Nurse's Notes [facility] Name: Natasha Spann Age: 36 yrs Sex: Female : 1985 Arrival Date: 02/23/2022 Time: 07:14 Bed 19 Private MD: Diagnosis: Abdominal pain, Generalized;Trichomoniasis, unspecified Presentation: 02/23 07:18 Ebola Screen: Patient denies travel to an Ebola-affected area in the 21 days before ll1 illness onset. Risk Assessment: Do you want to hurt yourself or someone else? Patient reports no desire to harm self or others. 07:18 Method Of Arrival: Ambulatory ll1 07:18 Acuity: EMILY 3 ll1 07:24 Chief complaint: Patient states: Spotting for 1 week with R sided pelvic pain. Feels ll1 dizzy and lightheaded at home. Coronavirus screen: Vaccine status: Patient reports being unvaccinated. Client denies travel out of the [place] in the last 14 days. At this time, the client does not indicate any symptoms associated with coronavirus-19. Initial Sepsis Screen: Does the patient meet any 2 criteria? No. Patient's initial sepsis screen is negative. Does the patient have a suspected source of infection? Yes: Acute abdominal pain. Onset of symptoms was February 17, 2022. Triage Assessment: 07:19 General: Appears in no apparent distress. Behavior is calm, cooperative, appropriate ll1 for age. Pain: Complains of pain in pelvic Quality of pain is described as aching, crampy. Neuro: No deficits noted. Cardiovascular: No deficits noted. Respiratory: No deficits noted. : Reports cramping, vaginal bleeding that is light flow, spotty. RENEWALS SPECIALIST: 11:57 LMP N/A - control method, UPT negative ll1 Historical: - Allergies: 07:18 bupropion HCl; ll1 07:18 Levofloxacin; ll1 07:18 Wellbutrin; ll1 - PMHx: 07:18 ADD/ADHD; Anxiety; Bipolar disorder; Depression; Endometrosis; Gastric Reflux; MRSA; ll1 osteomylitis; Ovarian cyst; UTI; - PSHx: 07:18 L BKA; ll1 - Immunization history:: Adult Immunizations up to date, Client reports having NOT received the Covid vaccine. - Social history:: Smoking status: Patient reports the use of cigarette tobacco products, smokes one pack cigarettes per day. Screenin:19 Abuse screen: Denies threats or abuse. Nutritional screening: No deficits noted. ll1 Tuberculosis screening: No symptoms or risk factors identified. Fall Risk IV access (20 points). Total Steve Fall Scale indicates No Risk (0-24 pts). Assessment: 08:40 Reassessment: No changes from previously documented assessment. Patient and/or family ll1 updated on plan of care and expected duration. Pain level reassessed. Patient is alert, oriented x 3, equal unlabored respirations, skin warm/dry/pink. 09:40 Reassessment: No changes from previously documented assessment. Patient and/or family ss updated on plan of care and expected duration. Pain level reassessed. Patient is alert, oriented x 3, equal unlabored respirations, skin warm/dry/pink. 10:40 Reassessment: No changes from previously documented assessment. gait steady to restroom.ss 11:40 Reassessment: No changes from previously documented assessment. Patient and/or family ll1 updated on plan of care and expected duration. Pain level reassessed. 11:57 : Urine is clear. ll1 Vital Signs: 07:24 BP 147 / 101; Pulse 102; Resp 17; Temp 99.1; Pulse Ox 100% ; Weight 81.65 kg; Height 5 ll1 ft. 8 in. (172.72 cm); 08:00 BP 114 / 79; Pulse 90; Resp 16; Pulse Ox 99% on R/A; ll1 08:40 BP 114 / 73; Pulse 69; Resp 15; Pulse Ox 100% on R/A; Pain 6/10; ll1 11:55 BP 139 / 96; Pulse 80; Resp 16; Pulse Ox 100% on R/A; ll1 07:24 Body Mass Index 27.37 (81.65 kg, 172.72 cm) ll1 ED Course: 07:14 Patient arrived in ED. as 07:16 Shen Paez RN is Primary Nurse. ll1 07:17 Ad Alston MD is Attending Physician. kdr 07:17 Arm band placed on Patient placed in an exam room, on a stretcher. ll1 07:19 Triage completed. ll1 07:20 Patient has correct armband on for positive identification. Bed in low position. Call ll1 light in reach. Side rails up X 1. Cardiac monitoring not applicable on this patient. 07:30 Inserted saline lock: 22 gauge in right antecubital area, using aseptic technique. ll1 Blood collected. 09:01 CT Abd/Pelvis - IV Contrast Only In Process Unspecified. EDMO 11:56 No provider procedures requiring assistance completed. IV discontinued, intact, ll1 bleeding controlled, No redness/swelling at site. Pressure dressing applied. Administered Medications: 07:45 Drug: NS 0.9% 1000 ml Route: IV; Rate: 1 bolus; Site: right antecubital; ll1 08:38 Follow up: Response: No adverse reaction; RASS: Alert and Calm (0); IV Status: ll1 Completed infusion; IV Intake: 1000ml 07:46 Drug: Zofran (Ondansetron) 4 mg Route: IVP; Site: right antecubital; ll1 08:38 Follow up: Response: No adverse reaction; Nausea is decreased ll1 07:48 Drug: morphine 4 mg {Note: rass 0, pain 8/10.} Route: IVP; Infused Over: 4 mins; Site: ll1 right antecubital; 08:39 Follow up: Response: No adverse reaction; Pain is decreased; RASS: Alert and Calm (0) 1 09:22 Drug: Flagyl (metroNIDAZOLE) 500 mg Route: PO; ll1 11:55 Follow up: Response: No adverse reaction ll1 Medication: 07:20 VIS not applicable for this client. ll1 Intake: 08:38 IV: 1000ml; Total: 1000ml. ll1 Outcome: 11:35 Discharge ordered by . kdr 11:57 Discharged to home ambulatory. ll1 11:57 Condition: stable 11:57 Discharge instructions given to patient, Instructed on discharge instructions, follow up and referral plans. medication usage, Demonstrated understanding of instructions, follow-up care, medications, Prescriptions given X 1. 11:57 Patient left the ED. ll1 Signatures: Dispatcher [employer] EDMS Ad Alston MD MD kdr Martinez, Amelia as Smirch, Shelby, RN RN Shen Chan RN RN ll1 Corrections: (The following items were deleted from the chart) 07:26 07:19 : Reports vaginal bleeding that is ll1 ll1
--- NOTE | 2022-02-23 11:36 | EDPHYS ---
Physician Documentation [facility] Name: Natasha Spann Age: 36 yrs Sex: Female : 1985 Arrival Date: 02/23/2022 Time: 07:14 Bed 19 Private MD: ED Physician Ad Alston CONTRACT RECRUITER: 02/23 11:57 LMP N/A - control method, UPT negative ll1 Historical: - Allergies: 07:18 bupropion HCl; ll1 07:18 Levofloxacin; ll1 07:18 Wellbutrin; ll1 - PMHx: 07:18 ADD/ADHD; Anxiety; Bipolar disorder; Depression; Endometrosis; Gastric Reflux; MRSA; ll1 osteomylitis; Ovarian cyst; UTI; - PSHx: 07:18 L BKA; ll1 - Immunization history:: Adult Immunizations up to date, Client reports having NOT received the Covid vaccine. - Social history:: Smoking status: Patient reports the use of cigarette tobacco products, smokes one pack cigarettes per day. Vital Signs: 07:24 BP 147 / 101; Pulse 102; Resp 17; Temp 99.1; Pulse Ox 100% ; Weight 81.65 kg; Height 5 ll1 ft. 8 in. (172.72 cm); 08:00 BP 114 / 79; Pulse 90; Resp 16; Pulse Ox 99% on R/A; ll1 08:40 BP 114 / 73; Pulse 69; Resp 15; Pulse Ox 100% on R/A; Pain 6/10; ll1 11:55 BP 139 / 96; Pulse 80; Resp 16; Pulse Ox 100% on R/A; ll1 07:24 Body Mass Index 27.37 (81.65 kg, 172.72 cm) ll1 MDM: 11:35 Patient medically screened. kdr 02/23 07:17 Order name: Abo/rh Typing; Complete Time: 11:34 kdr 02/23 07:17 Order name: Basic Metabolic Panel; Complete Time: 09:02 kdr 02/23 07:17 Order name: CBC with Diff; Complete Time: 08:10 kdr 02/23 07:17 Order name: Quantitative Hcg; Complete Time: 09:02 kdr 02/23 07:39 Order name: Urine Dipstick-Ancillary; Complete Time: 08:10 EDMS 02/23 07:41 Order name: Urine Microscopic Only; Complete Time: 09:02 em1 02/23 07:17 Order name: IV Saline Lock; Complete Time: 07:26 kdr 02/23 07:43 Order name: CT Abd/Pelvis - IV Contrast Only; Complete Time: 09:39 kdr 02/23 07:46 Order name: Urine --Ancillary (enter results) em1 02/23 08:33 Order name: Urine Culture EDMS 02/23 07:17 Order name: Labs collected and sent; Complete Time: 07:26 kdr 02/23 07:17 Order name: NPO; Complete Time: 07:26 kdr 02/23 07:17 Order name: Urine Dipstick-Ancillary (obtain specimen); Complete Time: 07:38 kdr 02/23 07:32 Order name: Urine Test (obtain specimen); Complete Time: 07:38 kdr Administered Medications: 07:45 Drug: NS 0.9% 1000 ml Route: IV; Rate: 1 bolus; Site: right antecubital; ll1 08:38 Follow up: Response: No adverse reaction; RASS: Alert and Calm (0); IV Status: ll1 Completed infusion; IV Intake: 1000ml 07:46 Drug: Zofran (Ondansetron) 4 mg Route: IVP; Site: right antecubital; ll1 08:38 Follow up: Response: No adverse reaction; Nausea is decreased ll1 07:48 Drug: morphine 4 mg {Note: rass 0, pain 8/10.} Route: IVP; Infused Over: 4 mins; Site: ll1 right antecubital; 08:39 Follow up: Response: No adverse reaction; Pain is decreased; RASS: Alert and Calm (0) 1 09:22 Drug: Flagyl (metroNIDAZOLE) 500 mg Route: PO; ll1 11:55 Follow up: Response: No adverse reaction ll1 Disposition Summary: 02/23/22 11:35 Discharge Ordered Location: Home kdr Problem: new kdr Symptoms: have improved kdr Condition: Stable kdr Diagnosis - Abdominal pain, Generalized kdr - Trichomoniasis, unspecified kdr Followup: kdr - With: Private Physician - When: 2 - 3 days - Reason: If symptoms return, Further diagnostic work-up, Recheck today's complaints, Continuance of care, Re-evaluation by your physician Discharge Instructions: - Trichomoniasis kdr - Abdominal Pain, Adult, [id number] kdr - Discharge Summary Sheet ll1 Forms: - Medication Reconciliation Form kdr - Thank You Letter kdr - Work release form ll1 - Antibiotic Education kdr Prescriptions: - Flagyl 500 mg Oral Tablet - take 1 tablet by ORAL route every 12 hours for 7 days; 14 tablet; Refills: 0, kdr Product Selection Permitted Signatures: Dispatcher [employer] Ad Davis MD MD kdr Lewis, Lynsay, RN RN 1 Mackenzie Marquez FNP FNP 7
[2022-02-23 12:02] VITALS: TEMP 99.1
[2022-02-23 12:05] VITALS: O2SAT 100
[2022-02-23 12:07] VITALS: BP 139/96
[2022-02-23 14:27] LABS: Urine Specific Gravity/Preg 1.015 (1.005-1.030)
== END 2022-02-23 11:57 | disposition home or self-care (01) ==
LOC: ER 07:13
DX: R10.84 Generalized abdominal pain (principal); A59.9 Trichomoniasis, unspecified; F17.210 Nicotine dependence, cigarettes, uncomplicated; Z88.8 Allergy status to other drugs, medicaments and biological substances
CPT/HCPCS: 36415; 74177; 80048; 81003; 81015; 81025; 84702; 85025; 86900; 86901; 87086; 87088; J2405; J7030; Q9967

== ENCOUNTER 2022-02-26 18:43 | Emergency (ER) | payer SELFPAY ==
[2022-02-26 19:03] LABS: Urine Blood 3+ (Negative); Urine Glucose Negative (Negative); Urine Protein Negative (Negative)
[2022-02-26 19:39] LABS: Absolute Lymphocytes (CBC) 2.4 K/uL (0.7-4.9); Hematocrit 38.4 % (36.0-45.0); Lymphocytes % 15.9 % (15.3-44.8); MCV 91.8 fL (80-100); MPV 7.7 fL (7.6-11.3); RBC Red Blood Cell Count 4.18 M/uL (3.86-4.86)
[2022-02-26 19:45] LABS: Potassium 3.4 mmol/L (3.5-5.1)
--- NOTE | 2022-02-26 20:53 | RAD REPORT ---
EXAM DESCRIPTION: US - Transvaginal Study Probe - 02/26/2022 8:18 pm CLINICAL HISTORY: Pelvic pain COMPARISON: 02/23/2022 CT FINDINGS: The uterus is retroverted and measures 8 x 5 x 6 cm. A fibroid is not seen. The endometria l stripe measures 1.1 cm The ovaries are normal in size and echotexture. The right ovary not visualized due to overlying bowel gas. Left ovary normal in size and echotexture.It contains a 1.4 cm follicle Right and left adnexa unremarkable No significant free fluid is seen. On the prior CAT scan there is a typographical error. The 2 centimeter cyst is present within the rig ht ovary not left ovary. IMPRESSION: No significant abnormality is displayed
[2022-02-26] MEDS ORDERED: KETOROLAC 30 MG/ML INJ ONE (21:36)
[2022-02-26] MEDS ORDERED: NA CHLORIDE 0.9% 1,000 ML ONE (21:48)
--- NOTE | 2022-02-26 22:20 | RAD REPORT ---
EXAM DESCRIPTION: CT - Abdomen Pelvis W Contrast - 02/26/2022 10:05 pm CLINICAL HISTORY: Abdominal pain COMPARISON: February 23, [address] TECHNIQUE: Computed axial tomography of the abdomen pelvis was obtained. 100 cc Isovue-300 was admin istered intravenously. Oral contrast was not requested which limits evaluation of bowel and appendix All CT scans are performed using dose optimization technique as appropriate and may include automated exposure control or mA/KV adjustment according to patient size. FINDINGS: 6 millimeter low to intermediate density lesion within the right lobe of liver unchanged f rom 2020 likely benign The Spleen, pancreas, adrenal and kidneys appear unremarkable. There is no evidence of diverticulitis. Normal appendix 2 centimeter right ovarian cyst. No significant free fluid Small umbilical hernia IMPRESSION: A 2 centimeter right ovarian cyst without significant change from prior exam. No signifi cant free fluid
--- NOTE | 2022-02-26 23:20 | ER ---
Nurse's Notes [facility] Name: Natasha Spann Age: 36 yrs Sex: Female : 1985 Arrival Date: 02/26/2022 Time: 18:44 Bed 17 Private MD: Diagnosis: Lower abdominal pain, unspecified Presentation: 02/26 18:47 Chief complaint: Patient states: PATIENT REPORTS PELVIC PAIN IN THE CENTER OF HER LOWER 1 ABD. Coronavirus screen: Vaccine status: Patient reports receiving the 2nd dose of the covid vaccine. At this time, the client does not indicate any symptoms associated with coronavirus-19. Ebola Screen: Patient negative for fever greater than or equal to 101.5 degrees Fahrenheit, and additional compatible Ebola Virus Disease symptoms. Initial Sepsis Screen: Does the patient meet any 2 criteria? No. Patient's initial sepsis screen is negative. Does the patient have a suspected source of infection? No. Patient's initial sepsis screen is negative. Risk Assessment: Do you want to hurt yourself or someone else? Patient reports no desire to harm self or others. 18:47 Method Of Arrival: Ambulatory [facility] 18:47 Acuity: EMILY 3 [facility] Triage Assessment: 18:50 General: Appears in no apparent distress. uncomfortable, Behavior is calm, cooperative, [facility] appropriate for age. Pain: Complains of pain in pelvis Pain does not radiate. Pain currently is 10 out of 10 on a pain scale. Historical: - Allergies: 18:50 bupropion HCl; [facility] 18:50 Levofloxacin; [facility] 18:50 Wellbutrin; [facility] - Home Meds: 18:50 Vistaril 25 mg Oral cap [Active]; Zoloft 100 mg Oral tab 1 tab once daily [Active]; [facility] - PMHx: 18:50 ADD/ADHD; Anxiety; Bipolar disorder; Depression; Endometrosis; Gastric Reflux; MRSA; [facility] osteomylitis; Ovarian cyst; UTI; - PSHx: 18:50 L BKA; [facility] - Immunization history:: Adult Immunizations up to date. - Social history:: Smoking status: Patient reports the use of cigarette tobacco products, smokes one-half pack cigarettes per day. Screenin:53 Abuse screen: Denies threats or abuse. Nutritional screening: No deficits noted. tw2 Tuberculosis screening: No symptoms or risk factors identified. Fall Risk None identified. Assessment: 18:53 Reassessment: pt ambulating to restroom at this time with urine specimen cup. tw2 19:12 General: Appears in no apparent distress. uncomfortable, Behavior is calm, cooperative. lg3 Pain: Complains of pain in pelvis. Neuro: No deficits noted. Level of Consciousness is awake, alert, obeys commands, Oriented to person, place, time, situation. Cardiovascular: No deficits noted. Denies chest pain, shortness of breath, Capillary refill < 3 seconds Clubbing of nail beds is absent JVD is absent Patient's skin is warm and dry. Respiratory: No deficits noted. Airway is patent Trachea midline Respiratory effort is even, unlabored, Respiratory pattern is regular, symmetrical, Breath sounds are clear bilaterally. GI: Abdomen is flat, non-distended, Bowel sounds present X 4 quads. Abd is soft X 4 quads Abdomen is tender to palpation in right lower quadrant and left lower quadrant Reports lower abdominal pain, cramping. : Reports vaginal bleeding that is. EENT: No deficits noted. No signs and/or symptoms were reported regarding the EENT system. Derm: No deficits noted. No signs and/or symptoms reported regarding the dermatologic system. Skin is intact, is healthy with good turgor, Skin is dry, Skin temperature is warm. Musculoskeletal: No deficits noted. No signs and/or symptoms reported regarding the musculoskeletal system. Circulation, motion, and sensation intact. Range of motion: intact in all extremities. 21:32 Reassessment: Patient appears in no apparent distress at this time. No changes from lg3 previously documented assessment. Patient and/or family updated on plan of care and expected duration. Pain level reassessed. Patient is alert, oriented x 3, equal unlabored respirations, skin warm/dry/pink. Vital Signs: 18:47 BP 135 / 99; Pulse 112; Resp 20; Temp 98.1(T); Pulse Ox 100% ; Weight 81.65 kg; Height bh1 5 ft. 8 in. (172.72 cm); Pain 10/10; 21:37 BP 114 / 69; Pulse 81; Resp 18 S; Pulse Ox 100% on R/A; lg3 18:47 Body Mass Index 27.37 (81.65 kg, 172.72 cm) 1 ED Course: 18:44 Patient arrived in ED. am2 18:47 [facility] kb 18:47 Gregor Santo MD is Attending Physician. kb 18:50 Triage completed. 1 18:51 Arm band placed on right wrist. 1 18:51 Bed in low position. Call light in reach. tw2 19:12 Marta Mar, RN is Primary Nurse. lg3 19:23 Urine --Ancillary (enter results) Sent. lg3 19:25 Inserted saline lock: 22 gauge in right forearm, using aseptic technique. Blood ds4 collected. 19:41 Basic Metabolic Panel Sent. lg3 19:41 CBC with Diff Sent. lg3 20:20 US Transvaginal Study (Probe) In Process Unspecified. EDMS 22:07 CT Abd/Pelvis - IV Contrast Only In Process Unspecified. EDMS 23:52 No provider procedures requiring assistance completed. IV discontinued, intact, lg3 bleeding controlled, No redness/swelling at site. Pressure dressing applied. Administered Medications: 21:32 Drug: Ketorolac 15 mg Route: IVP; Site: right forearm; lg3 21:39 Follow up: Response: No adverse reaction lg3 21:43 Drug: NS 0.9% 1000 ml Route: IV; Rate: 1000 ml; Site: right forearm; lg3 23:53 Follow up: IV Status: Completed infusion; IV Intake: 1000ml lg3 Medication: 23:52 VIS not applicable for this client. lg3 Intake: 23:53 IV: 1000ml; Total: 1000ml. lg3 Outcome: 23:20 Discharge ordered by . kb 23:52 Discharged to home ambulatory. lg3 23:52 Condition: stable 23:52 Discharge instructions given to patient, Instructed on discharge instructions, medication usage, Demonstrated understanding of instructions, medications, Prescriptions given X 1. 23:53 Patient left the ED. lg3 Signatures: Dispatcher [employer] EDMS Reva Morales FNP-C [employer] PROGRAMMER-CkAguila Reeder ds4 Maggi Collier, RN RN tw2 Angle Gonzáles am2 Marta Mar, RN RN lg3 Sharon Martínez RN RN [facility]
--- NOTE | 2022-02-26 23:21 | EDPHYS ---
Physician Documentation [facility] Name: Natasha Spann Age: 36 yrs Sex: Female : 1985 Arrival Date: 02/26/2022 Time: 18:44 Bed 17 Private MD: ED Physician Gregor Santo HPI: 02/27 00:17 This 36 yrs old Female presents to ER via Ambulatory with complaints of Pelvic Pain. kb 00:17 The patient presents with pelvic pain, that is located in/on the left lower quadrant kb and suprapubic area, the pain does not radiate, vaginal bleeding that is. Onset: The symptoms/episode began/occurred 10 day(s) ago. Modifying factors: The symptoms are alleviated by nothing, the symptoms are aggravated by nothing. Associated signs and symptoms: Pertinent positives: vaginal bleeding. Severity of symptoms: At their worst the symptoms were moderate, in the emergency department the symptoms are unchanged. The patient has experienced similar episodes in the past. The patient has been recently seen at the [facility] Emergency Department, this week, for similar complaints labs were performed, CT scan was performed. Pt states she has had pelvic pain for about 10 days. Was seen here a few days ago for this pain. Came back because pain has persisted and vaginal bleeding has gotten worse. Historical: - Allergies: 02/26 18:50 bupropion HCl; bh1 18:50 Levofloxacin; bh1 18:50 Wellbutrin; bh1 - Home Meds: 18:50 Vistaril 25 mg Oral cap [Active]; Zoloft 100 mg Oral tab 1 tab once daily [Active]; bh1 - PMHx: 18:50 ADD/ADHD; Anxiety; Bipolar disorder; Depression; Endometrosis; Gastric Reflux; MRSA; bh1 osteomylitis; Ovarian cyst; UTI; - PSHx: 18:50 L BKA; bh1 - Immunization history:: Adult Immunizations up to date. - Social history:: Smoking status: Patient reports the use of cigarette tobacco products, smokes one-half pack cigarettes per day. ROS: 02/27 00:16 Constitutional: Negative for fever, chills, and weight loss. kb Abdomen/GI: Positive for abdominal pain, Negative for nausea, vomiting, and diarrhea. : Positive for pelvic pain, vaginal bleeding. All other systems are negative. Exam: 00:16 Constitutional: This is a well developed, well nourished patient who is awake, alert, kb and in no acute distress. Head/Face: Normocephalic, atraumatic. ENT: Moist Mucous membranes Cardiovascular: Regular rate and rhythm with a normal S1 and S2. No gallops, murmurs, or rubs. No pulse deficits. Respiratory: Respirations even and unlabored. No increased work of breathing. Talking in full sentences Skin: Warm, dry with normal turgor. Normal color. MS/ Extremity: Pulses equal, no cyanosis. Neurovascular intact. Full, normal range of motion. Neuro: Awake and alert, GCS 15, oriented to person, place, time, and situation. Moves all extremities. Normal gait. Psych: Awake, alert, with orientation to person, place and time. Behavior, mood, and affect are within normal limits. 00:16 Abdomen/GI: Inspection: abdomen appears normal, Bowel sounds: normal, Palpation: soft, in all quadrants, mild abdominal tenderness, in the suprapubic area and left lower quadrant. Vital Signs: 02/26 18:47 BP 135 / 99; Pulse 112; Resp 20; Temp 98.1(T); Pulse Ox 100% ; Weight 81.65 kg; Height bh1 5 ft. 8 in. (172.72 cm); Pain 10/10; 21:37 BP 114 / 69; Pulse 81; Resp 18 S; Pulse Ox 100% on R/A; lg3 18:47 Body Mass Index 27.37 (81.65 kg, 172.72 cm) bh1 MDM: 18:47 Patient medically screened. kb 23:19 Data reviewed: vital signs, nurses notes. Data interpreted: Pulse oximetry: on room air kb is 100 %. Interpretation: normal. Counseling: I had a detailed discussion with the patient and/or guardian regarding: the historical points, exam findings, and any diagnostic results supporting the discharge/admit diagnosis, lab results, radiology results, the need for outpatient follow up, an OB/Gyne specialist, to return to the emergency department if symptoms worsen or persist or if there are any questions or concerns that arise at home. 02/26 18:50 Order name: Basic Metabolic Panel; Complete Time: 19:47 kb 02/26 18:50 Order name: CBC with Diff; Complete Time: 19:50 kb 02/26 18:50 Order name: US Transvaginal Study (Probe); Complete Time: 20:56 kb 02/26 19:04 Order name: Urine Dipstick-Ancillary; Complete Time: 19:09 EDMS 02/26 19:14 Order name: Urine --Ancillary (enter results); Complete Time: 21:28 mw2 02/26 18:50 Order name: IV Saline Lock; Complete Time: 19:25 kb 02/26 18:50 Order name: Labs collected and sent; Complete Time: 19:25 kb 02/26 18:50 Order name: NPO; Complete Time: 19:59 kb 02/26 18:50 Order name: Urine Dipstick-Ancillary (obtain specimen); Complete Time: 19:02 kb 02/26 18:50 Order name: Urine Test (obtain specimen); Complete Time: 19:02 kb 02/26 21:32 Order name: CT Abd/Pelvis - IV Contrast Only; Complete Time: 22:22 kb Administered Medications: 21:32 Drug: Ketorolac 15 mg Route: IVP; Site: right forearm; lg3 21:39 Follow up: Response: No adverse reaction lg3 21:43 Drug: NS 0.9% 1000 ml Route: IV; Rate: 1000 ml; Site: right forearm; lg3 23:53 Follow up: IV Status: Completed infusion; IV Intake: 1000ml lg3 Disposition: 02/27 08:26 Co-signature as Attending Physician, Gregor Santo MD. rn Disposition Summary: 02/26/22 23:20 Discharge Ordered Location: Home kb Condition: Stable kb Diagnosis - Lower abdominal pain, unspecified kb Followup: kb - With: Emergency Department - When: As needed - Reason: Worsening of condition Followup: kb - With: Private Physician - When: 2 - 3 days - Reason: Recheck today's complaints, Continuance of care, Re-evaluation by your physician Discharge Instructions: - Discharge Summary Sheet kb - Pelvic Pain, Female, [id number] kb - Abdominal Pain, Adult, [id number] kb Forms: - Medication Reconciliation Form kb - Thank You Letter kb - Antibiotic Education kb - Prescription Opioid Use kb Prescriptions: - Diclofenac Sodium 75 mg Oral tablet,delayed release (DR/EC) - take 1 tablet by ORAL route 2 times per day As needed; 30 tablet; Refills: 0, kb Product Selection Permitted Signatures: Dispatcher [employer] Reva Greer, CONTINUOUS IMPROVEMENT LEAD-C CONTINUOUS IMPROVEMENT LEAD-Ckb Gregor Santo MD MD rn Gibson, Lacie RN RN lg3 Sharon Martínez RN RN bh1
[2022-02-27 00:29] VITALS: TEMP 98.1; O2SAT 100
[2022-02-27 00:31] VITALS: BP 114/69
== END 2022-02-26 23:53 | disposition home or self-care (01) ==
LOC: ER 18:43
DX: R10.30 Lower abdominal pain, unspecified (principal); F31.9 Bipolar disorder, unspecified; F17.210 Nicotine dependence, cigarettes, uncomplicated; Z88.3 Allergy status to other anti-infective agents; Z88.8 Allergy status to other drugs, medicaments and biological substances
CPT/HCPCS: 36415; 74177; 76830; 80048; 81003; 81025; 85025; 96361; 96374; 99284; J7030; Q9967

== ENCOUNTER 2022-03-30 08:23 | Emergency (ER) | payer SELFPAY ==
--- OUTSIDE RECORDS SUMMARY | 2022-03-30 08:34 | XMS REPORT | Continuity of Care Document ---
:1985 Author Organization [facility] t Address [address] [place] [address] Care Team Providers Name Role Phone Kit Hayes PA-C Primary Care Physician PINO ALDANA Attending Clinician Unavailable Pino Murphy Attending Clinician KATELYN BAKER Attending Clinician Unavailable Katelyn Baker NP Attending Clinician Doctor Unassigned, [place] Attending Clinician Unavailable KATHERIN MAURER Attending Clinician Unavailable Katherin Florentino Attending Clinician Blayne Hairston MD Attending Clinician Basil Dove DO Attending Clinician Amaris Martinez Attending Clinician Ad Dodd Attending Clinician Vonda Plasencia Attending Clinician JOYCE FOLEY Attending Clinician Unavailable KATHREIN MAURER Admitting Clinician Unavailable PINO ALDANA Admitting Clinician Unavailable JOYCE FOLEY Admitting Clinician Unavailable Payers Payer Name Policy Type Policy Number Effective Date Expiration Date Steffany [place] [id number] 2019 WOMEN 00:00:00 MEDICAID SSI PENDING 2021 [...] Disease Active Raghu pain in pain in [facility] female female 00:00: 00 Homeless Homeless [...] ents Source Name Type Date Date Clinician Mesna - Propensi Active Intraven ty to 6-13 ous adverse 00:00: reaction 00 to drug Wellbutr Propensi Active in - ty to 5-03 Oral adverse 00:00: reaction 00 to drug Levaquin Propensi Active - Oral ty to 4-14 adverse 00:00: reaction 00 to drug Levaquin Propensi Active ty to 1 adverse 00:00: reaction 00 to drug Levoflox Propensi Active Other (See 2016-[address] [facility] ty to Comments) 09-14 [facility] pain Medical reaction 00 [facility] Bupropio Propensi Active Other (See 2016-[address] [facility] [facility] Comments) 09-14 [facility]: Medical reaction [facility] Center s Levoflox Propensi Active Method i acin ty to [address] [facility] adverse 00:00: Hospita [...] He alth Maternal grandmother Coronary artery [facility] Natural mother Coronary artery [facility] Maternal aunt Coronary artery [facility] Social History Social Habit Start Date Stop Date Quantity Comments Source History of tobacco 1992-02-15 Cigarette Smoker University of use 00:00:00 [facility] Exposure to Not sure University of SARS-CoV-2 (event) [facility] Alcohol intake 2021-10-10 2021-10-10 0 /d University of 00:00:00 00:00:00 [facility] Cigarettes smoked 2018-02-14 2018-02-14 Univers ity of current (pack per 00:00:00 00:00:00 ) - Reported Branch Tobacco use and 2018-02-14 2018-02-14 Never used Universit y of exposure 00:00:00 00:00:00 [facility] Cigarette 2015-04-20 2015-04-20 [facility] pack-years 00:00:00 00:00:00 Alcohol Comment 2015-04-16 2015-04-16 last drink Raghu Thompson alth 00:00:00 00:00:00 02/2015 [birth year] [facility]it [facility] 00:00:00 00:00:00 [facility] Smoking Status Start Date Stop Date Source Current every day smoker 2018-02-14 00:00:00 Uni versity of [facility] Never smoker [facility] Medications Ordered Filled Start Stop Current Ordering Indication Dosage Frequency Signature Comments Components Source Medication Medication Date Date Medication? Clinician (SIG) Name Name TAKE 1 2021-0 No TABLET BY 8- MOUTH EVERY 00:00: 4 HOURS 00 NEEDED FOR PAIN (SCALE 4-6) TAKE ONE 2021-0 No 75 (1) - TABLET(S) 00:00: BY MOUTH 00 TWICE A DAY NEEDED. TAKE 1 2021-0 No 500 CAPSULE BY 8-02 MOUTH EVERY 00:00: 12 HOURS 00 FOR 10 DAYS Dose 2-0 No 1 Unknown - 00:00: 00 TAKE 1 2021-0 No 20 TABLET BY 7- MOUTH THREE 00:00: TIMES DAILY 00 TAKE 1 2021-0 No 500 CAPSULE BY - MOUTH EVERY 00:00: 12 HOURS 00 FOR 10 DAYS FOR INFECTIOUS PROCESS TAKE 1 2021-0 No 1 TABLET BY 02-22 MOUTH 3 00:00: (THREE) 00 TIMES DAILY FOR 5 DAYS. TAKE 1 2021-0 No 10 TABLET BY 7-05 MOUTH TWICE 00:00: A DAY 00 NEEDED FOR MUSCLE SPASMS Dose 2-0 No Unknown 7-05 00:00: 00 methocarbam 2-0 No 1mg ol 750 mg 6-13 tablet 00:00: 00 TAKE 1 2021-0 No TABLET BY 6-13 MOUTH TWICE 00:00: A DAY 00 NEEDED FOR MUSCLE SPASMS TAKE 1 2021-0 No TABLET BY 6-13 MOUTH EVERY 00:00: 4 HOURS 00 NEEDED FOR PAIN (SCALE 4-6) chlorthalid 2021-0 No 1mg one 25 mg 5-10 tablet 00:00: 00 Dose 2-0 No Unknown 5-10 00:00: 00 Dose 2-0 No Unknown 5-10 00:00: 00 Dose 2-0 No Unknown 5-10 00:00: 00 Dose 2-0 No Unknown 5-10 00:00: 00 metronidazo 2-0 No 1mg le 500 mg 5-06 tablet 00:00: 00 Dose 2022-0 No Unknown 5-03 00:00: 00 Dose 2022-0 No Unknown 5-03 00:00: 00 Dose 2022-0 No Unknown 5-03 00:00: 00 Dose 2022-0 No Unknown 5-03 00:00: 00 Dose 2022-0 No Unknown 5-03 00:00: 00 Dose 2022-0 No Unknown 5-03 00:00: 00 Dose 2022-0 No Unknown 5-03 00:00: 00 Dose 2022-0 No Unknown 5-03 00:00: 00 Dose 2022-0 No Unknown 5-03 00:00: 00 Dose 2022-0 No Unknown 5-03 00:00: 00 Dose 2022-0 No Unknown 5-03 00:00: 00 Dose 2022-0 No Unknown 5-03 00:00: 00 Dose 2022-0 No Unknown 5-03 00:00: 00 Dose 2022-0 No Unknown 5-03 00:00: 00 Dose 2022-0 No Unknown 5-03 00:00: 00 Dose 2022-0 No Unknown 5-03 00:00: 00 Dose 2022-0 No Unknown 5-03 00:00: 00 Dose 2022-0 No Unknown 5-03 00:00: 00 Dose 2022-0 No Unknown 5-03 00:00: 00 Dose 2022-0 No Unknown 5-03 00:00: 00 Dose 2022-0 No Unknown 5-03 00:00: 00 Dose 2022-0 No Unknown 5-03 00:00: 00 Dose 2022-0 No Unknown 5-03 00:00: 00 Dose 2022-0 No Unknown 5-03 00:00: 00 Dose 2022-0 No Unknown 5-03 00:00: 00 Dose 2022-0 No Unknown 5-03 00:00: 00 Dose 2022-0 No Unknown 5-03 00:00: 00 Dose 2022-0 No Unknown 5-03 00:00: 00 Dose 2022-0 No Unknown 5-03 00:00: 00 Dose 2022-0 No Unknown 5-03 00:00: 00 Dose 2022-0 No Unknown 5-03 00:00: 00 Dose 2022-0 No Unknown 5-03 00:00: 00 Dose 2022-0 No Unknown 5-03 00:00: 00 Dose 2022-0 No Unknown 5-03 00:00: 00 Dose 2022-0 No Unknown 5-03 00:00: 00 Dose 2022-0 No Unknown 5-03 00:00: 00 Dose 2022-0 No Unknown 5-03 00:00: 00 Dose 2022-0 No Unknown 5-03 00:00: 00 Dose 2022-0 No Unknown 5-03 00:00: 00 Dose 2022-0 No Unknown 5-03 00:00: 00 Dose 2022-0 No Unknown 5-03 00:00: 00 Dose 2022-0 No Unknown 5-03 00:00: 00 Dose 2022-0 No Unknown 5-03 00:00: 00 Dose 2022-0 No Unknown 5-03 00:00: 00 Dose 2022-0 No Unknown 5-03 00:00: 00 Dose 2022-0 No Unknown 5-03 00:00: 00 Dose 2022-0 No Unknown 5-03 00:00: 00 Dose 2022-0 No Unknown 5-03 00:00: 00 Dose 2022-0 No Unknown 5-03 00:00: 00 Dose 2022-0 No Unknown 5-03 00:00: 00 Dose 2022-0 No Unknown 5-03 00:00: 00 Dose 2022-0 No Unknown 5-03 00:00: 00 Dose 2022-0 No Unknown 5-03 00:00: 00 Dose 2022-0 No Unknown 5-03 00:00: 00 Dose 2022-0 No Unknown 5-03 00:00: 00 Dose 2022-0 No Unknown 5-03 00:00: 00 Dose 2022-0 No Unknown 5-03 00:00: 00 Dose 2022-0 No Unknown 5-03 00:00: 00 Dose 2022-0 No Unknown 5-03 00:00: 00 Dose 2022-0 No Unknown 5-03 00:00: 00 Dose 2022-0 No Unknown 5-03 00:00: 00 Dose 2022-0 No Unknown 5-03 00:00: 00 Dose 2022-0 No Unknown 5-03 00:00: 00 Dose 2022-0 No Unknown 5-03 00:00: 00 Dose 2022-0 No Unknown 5-03 00:00: 00 Dose 2022-0 No Unknown 5-03 00:00: 00 Dose 2022-0 No Unknown 5-03 00:00: 00 Dose 2022-0 No Unknown 5-03 00:00: 00 Dose 2022-0 No Unknown 5-03 00:00: 00 Dose 2022-0 No Unknown 5-03 00:00: 00 Dose 2022-0 No Unknown 5-03 00:00: 00 Dose 2022-0 No Unknown 5-03 00:00: 00 Dose 2022-0 No Unknown 5-03 00:00: 00 Dose 2022-0 No Unknown 5-03 00:00: 00 Dose 2022-0 No Unknown 5-03 00:00: 00 Dose 2022-0 No Unknown 5-03 00:00: 00 Dose 2022-0 No Unknown 5-03 00:00: 00 Dose 2022-0 No Unknown 5-03 00:00: 00 Dose 2022-0 No Unknown 5-03 00:00: 00 Dose 2022-0 No Unknown 5-03 00:00: 00 Dose 2022-0 No Unknown 5-03 00:00: 00 Dose 2022-0 No Unknown 5-03 00:00: 00 Dose 2022-0 No Unknown 5-03 00:00: 00 Dose 2022-0 No Unknown 5-03 00:00: 00 Dose 2022-0 No Unknown 5-03 00:00: 00 Dose 2022-0 No Unknown 5-03 00:00: 00 Dose 2022-0 No Unknown 5-03 00:00: 00 Dose 2022-0 No Unknown 5-03 00:00: 00 Dose 2022-0 No Unknown 5-03 00:00: 00 Dose 2022-0 No Unknown 5-03 00:00: 00 Dose 2022-0 No Unknown 5-03 00:00: 00 Dose 2022-0 No Unknown 5-03 00:00: 00 Dose 2022-0 No Unknown 5-03 00:00: 00 Dose 2022-0 No Unknown 5-03 00:00: 00 Dose 2022-0 No Unknown 5-03 00:00: 00 Dose 2022-0 No Unknown 5-03 00:00: 00 Dose 2022-0 No Unknown 5-03 00:00: 00 Dose 2022-0 No Unknown 5-03 00:00: 00 Dose 2022-0 No Unknown 5-03 00:00: 00 Dose 2022-0 No Unknown 5-03 00:00: 00 Dose 2022-0 No Unknown 5-03 00:00: 00 Dose 2022-0 No Unknown 5-03 00:00: 00 Dose 2022-0 No Unknown 5-03 00:00: 00 Dose 2022-0 No Unknown 5-03 00:00: 00 Dose 2022-0 No Unknown 5-03 00:00: 00 Dose 2022-0 No Unknown 5-03 00:00: 00 Dose 2022-0 No Unknown 5-03 00:00: 00 Dose 2022-0 No Unknown 5-03 00:00: 00 Dose 2022-0 No Unknown 5-03 00:00: 00 Dose 2022-0 No Unknown 5-03 00:00: 00 Dose 2022-0 No Unknown 5-03 00:00: 00 Dose 2022-0 No Unknown 5-03 00:00: 00 Dose 2022-0 No Unknown 5-03 00:00: 00 Dose 2022-0 No Unknown 5-03 00:00: 00 Dose 2022-0 No Unknown 5-03 00:00: 00 Dose 2022-0 No Unknown 5-03 00:00: 00 Dose 2022-0 No Unknown 5-03 00:00: 00 Dose 2022-0 No Unknown 5-03 00:00: 00 Dose 2022-0 No Unknown 5-03 00:00: 00 Dose 2022-0 No Unknown 5-03 00:00: 00 Dose 2022-0 No Unknown 4-14 00:00: 00 Dose 2022-0 No Unknown 4-14 00:00: 00 Dose 2022-0 No Unknown 4-14 00:00: 00 Dose 2022-0 No Unknown 4-14 00:00: 00 Dose 2022-0 No Unknown 4-14 00:00: 00 Dose 2022-0 No Unknown 4-14 00:00: 00 Dose 2022-0 No Unknown 4-14 00:00: 00 Dose 2022-0 No Unknown 4-14 00:00: 00 Dose 2022-0 No Unknown 4-14 00:00: 00 Dose 2022-0 No Unknown 4-14 00:00: 00 Dose 2022-0 No Unknown 4-14 00:00: 00 Dose 2022-0 No Unknown 4-14 00:00: 00 Dose 2022-0 No Unknown 4-14 00:00: 00 Dose 2022-0 No Unknown 4-14 00:00: 00 Dose 2022-0 No Unknown 4-14 00:00: 00 Dose 2022-0 No Unknown 4-14 00:00: 00 Dose 2022-0 No Unknown 4-14 00:00: 00 Dose 2022-0 No Unknown 4-14 00:00: 00 Dose 2022-0 No Unknown 4-14 00:00: 00 Dose 2022-0 No Unknown 4-14 00:00: 00 Dose 2022-0 No Unknown 4-14 00:00: 00 Dose 2022-0 No Unknown 4-14 00:00: 00 Dose 2022-0 No Unknown 4-14 00:00: 00 Dose 2022-0 No Unknown 4-14 00:00: 00 Dose 2022-0 No Unknown 4-14 00:00: 00 Dose 2022-0 No Unknown 4-14 00:00: 00 Dose 2022-0 No Unknown 4-14 00:00: 00 Dose 2022-0 No Unknown 4-14 00:00: 00 Dose 2022-0 No Unknown 4-14 00:00: 00 Dose 2022-0 No Unknown 4-14 00:00: 00 Dose 2022-0 No Unknown 4-14 00:00: 00 Dose 2022-0 No Unknown 4-14 00:00: 00 Dose 2021-0 No Unknown 4-14 00:00: 00 Dose 2021-0 No Unknown 4-14 00:00: 00 Dose 2021-0 No Unknown 4-14 00:00: 00 ibuprofen 0 2021- No 600mg 600 mg, Uni vers (IBU) 2-20 -20 Oral, ity of tablet 600 18:30: 17:31 ONCE, 1 [place] mg 00 :00 dose, On Medical Sun Branch 10/10/21 at 1230, PUSHPA butalbital- 2021- No 1{tbl} 1 tablet, Univers acetaminoph -20 -20 Oral, ity of en-caff 18:30: 17:31 ONCE, 1 [place] (ESGIC) 00 :00 dose, On Medical 50-325-40 Sun Branch mg tablet 1 10/10/21 at tablet 1230, Routine diphenhydrA 2021- No 25mg 25 mg, Uni vers MINE -10 10- Oral, ity of (BENADRYL) 18:30: 17:31 ONCE, 1 [place] tablet 25 00 :00 dose, On Medica l mg Sun Branch 10/10/21 at 1230, PUSHPA metoclopram 2021- No 10mg 10 mg, Uni vers arianne HCl -20 -20 Oral, ity of (REGLAN) 18:30: 17:30 ONCE, 1 [place] tablet 10 00 :00 dose, On Medica l mg Sun Branch 10/10/21 at 1230, Routine butalbital- Yes [id number] 1{tbl} Take 1 Univers acetaminoph 2-20 tablet by ity of en-caff 00:00: mouth [place] 50-325-40 00 every 6 Medical mg tablet (six) Branch hours as needed for Pain (scale 7-10). amoxicillin No 1mg 875 2-17 mg-potassiu 00:00: m 00 clavulanate 125 mg tablet ibuprofen 0 No 1mg 600 mg 2-17 tablet 00:00: 00 azithromyci 0 No 2mg n 500 mg 1-31 tablet 00:00: 00 HYDROcodone 2021- No 1{tbl} 1 tablet, Univers [...] 09/15/21 at 1515, PUSHPA iopamidol 2021- No [id number] 100mL 100 mL, Univers (ISOVUE 09-15 Intravenou ity o f 370-500 mL) 21:00: 19:48 s, ONCE, 1 [place] injection 00 :00 dose, On Medica l 100 mL Wed Branch 09/15/21 at 1500, Routine ondansetron No 4mg 4 mg, Slow Univers (ZOFRAN 09-15 IV Push, ity of (PF)) 20:15: 19:21 ONCE, 1 [place] injection 4 00 :00 dose, On Medi mary ann mg Wed Branch 09/15/21 at 1415, PUSHPA morpHINE No 4mg 4 mg, Slow Un [...] 09/15/21 at 1345, PUSHPA doxycycline 2021- No [id number] 100mg Take 1 Univers monohydrate 09-15 capsule by i ty of 100 mg 00:00: 05:59 mouth 2 [place] capsule 00 :00 (two) Medical times Branch daily for 14 days. metroNIDAZO 2021-2021- No [id number] 500mg Take 1 Univers LE 500 mg 09-15 tablet by ity of tablet 00:00: 05:59 mouth 2 [place] 00 :00 (two) Medical times Branch daily for 14 days. doxycycline 2021-2021- No [id number] 100mg Take 1 Univers monohydrate 09-1510 capsule by i ty of 100 mg 00:00: 05:59 mouth 2 [place] capsule 00 :00 (two) Medical times Branch daily for 14 days. metroNIDAZO 2021- No [id number] 500mg Take 1 Univers LE 500 mg [...] On 08/21/21 at 1730, STAT ondansetron Yes [id number] 4mg Take 1 Univers (ZOFRAN 08-21 tablet by ity of ODT) 4 mg 00:00: mouth [place] disintegrat 00 every 8 Medic al ing tablet (eight) Branch hours as needed for Nausea and Vomiting (N/V). ketorolac 2-0 Yes [id number] 10mg Take 1 U nivers 10 mg 1-01 tablet by ity of tablet 00:00: mouth [place] 00 every 6 Medical (six) Branch hours as needed for Pain (scale 4-6). methocarbam 2022-0 Yes [id number] 500mg Take 1 Univers oL 500 mg 1-01 tablet by ity o f tablet 00:00: mouth 4 [place] 00 (four) Medical times Branch daily as needed for Pain (scale 4-6). ondansetron 2022-0 Yes [id number] 4mg Take 1 Univers (ZOFRAN 1-01 tablet by ity of ODT) 4 mg 00:00: mouth [place] disintegrat 00 every 8 Medic al ing tablet (eight) Branch hours as needed for Nausea and Vomiting (N/V). ketorolac 2022-0 Yes [id number] 10mg Take 1 U nivers 10 mg 1-01 tablet by ity of tablet 00:00: mouth [place] 00 every 6 Medical (six) Branch hours as needed for Pain (scale 4-6). methocarbam 2022-0 Yes [id number] 500mg Take 1 Univers oL 500 mg 1-01 tablet by ity o f tablet 00:00: mouth 4 [place] 00 (four) Medical times Branch daily as needed for Pain (scale 4-6). ondansetron 2022-0 Yes [id number] 4mg Take 1 Univers (ZOFRAN 1-01 tablet by ity of ODT) 4 mg 00:00: mouth [place] disintegrat 00 every 8 Medic al ing tablet (eight) Branch hours as needed for Nausea and Vomiting (N/V). ketorolac 2022-0 Yes [id number] 10mg Take 1 U nivers 10 mg 1-01 tablet by ity of tablet 00:00: mouth [place] 00 every 6 Medical (six) Branch hours as needed for Pain (scale 4-6). methocarbam 2022-0 Yes [id number] 500mg Take 1 Univers oL 500 mg 1-01 tablet by ity o f tablet 00:00: mouth 4 [place] 00 (four) Medical times Branch daily as needed for Pain (scale 4-6). ondansetron 2022-0 Yes [id number] 4mg Take 1 Univers (ZOFRAN 1-01 tablet by ity of ODT) 4 mg 00:00: mouth [place] disintegrat 00 every 8 Medic al ing tablet (eight) Branch hours as needed for Nausea and Vomiting (N/V). ketorolac 2022-0 Yes [id number] 10mg Take 1 U nivers 10 mg 1-01 tablet by ity of tablet 00:00: mouth [place] 00 every 6 Medical (six) Branch hours as needed for Pain (scale 4-6). methocarbam 2022-0 Yes [id number] 500mg Take 1 Univers oL 500 mg 1-01 tablet by ity o f tablet 00:00: mouth 4 [place] 00 (four) Medical times Branch daily as needed for Pain (scale 4-6). ondansetron 2022-0 Yes [id number] 4mg Take 1 Univers (ZOFRAN 1-01 tablet by ity of ODT) 4 mg 00:00: mouth [place] disintegrat 00 every 8 Medic al ing tablet (eight) Branch hours as needed for Nausea and Vomiting (N/V). ketorolac 2022-0 Yes [id number] 10mg Take 1 U nivers 10 mg 1-01 tablet by ity of tablet 00:00: mouth [place] 00 every 6 Medical (six) Branch hours as needed for Pain (scale 4-6). methocarbam 2022-0 Yes [id number] 500mg Take 1 Univers oL 500 mg 1-01 tablet by ity o f tablet 00:00: mouth 4 [place] 00 (four) Medical times Branch daily as needed for Pain (scale 4-6). ondansetron 2022-0 Yes [id number] 4mg Take 1 Univers (ZOFRAN 1-01 tablet by ity of ODT) 4 mg 00:00: mouth [place] disintegrat 00 every 8 Medic al ing tablet (eight) Branch hours as needed for Nausea and Vomiting (N/V). ketorolac 2022-0 Yes [id number] 10mg Take 1 U nivers 10 mg 1-01 tablet by ity of tablet 00:00: mouth [place] 00 every 6 Medical (six) Branch hours as needed for Pain (scale 4-6). methocarbam 2022-0 Yes [id number] 500mg Take 1 Univers oL 500 mg 1-01 tablet by ity o f tablet 00:00: mouth 4 [place] 00 (four) Medical times Branch daily as needed for Pain (scale 4-6). Latuda 40 2020-08 No 1mg mg tablet 2-14 00:00: 00 Zoloft 100 2020-08 No 51mg mg tablet 2-14 00:00: 00 Zoloft 100 1 No 1mg mg tablet 2-14 00:00: 00 Vistaril 25 2020-08 No 1mg mg capsule 2-14 00:00: 00 Bromfed DM 2020-08 No 10mg/5 2 mg-30 2-01 mL mg-10 mg/5 00:00: mL oral 00 syrup Latuda 40 2020-08 No 1mg mg tablet 1-15 00:00: 00 Zoloft 100 2020-08 No 51mg mg tablet 1-15 00:00: 00 Vistaril 25 2020-08 No 1mg mg capsule 1-15 00:00: 00 Zoloft 100 2020-08 No 1mg mg tablet 0-18 00:00: 00 Latuda 40 2020-08 No 1mg mg tablet 0-18 00:00: 00 Vistaril 25 2020-08 No 1mg mg capsule 0-18 00:00: 00 Latuda 20 2020-08 No 1mg mg tablet 0-05 00:00: 00 Zoloft 100 2020-08 No 1mg mg tablet 0-05 00:00: 00 Latuda 40 2020-08 No 1mg mg tablet 0-05 00:00: 00 Vistaril 25 2020-08 No 1mg mg capsule 0-05 00:00: 00 Vistaril 25 2020-08 No 1mg mg capsule 0-05 00:00: 00 Flagyl 500 0 No 1mg mg tablet 9-20 00:00: 00 ketorolac 2020-0 2020- No 30mg 30 mg, Unive rs (TORADOL) 04-26 Slow IV ity of injection 22:00: 20:57 Push, [place] 30 mg 00 :00 ONCE, 1 Medical dose, Mon Branch 04/26/21 at 1700, Routine
interior design faculty member approving Restricted medication : BLAYNE HAIRSTON ketorolac 2020- No 30mg 30 mg, Unive rs (TORADOL) 04-26 Slow IV ity of injection 22:00: 20:57 Push, [place] 30 mg 00 :00 ONCE, 1 Medical dose, [place] 04/26/21 at 1700, Routine
interior design faculty member approving Restricted medication : BLAYNE HAIRSTON morpHINE 2020-0 2020- No 4mg 4 mg, Slow Un tracee injection 4 04-26 IV Push, ity of mg 20:30: 19:28 ONCE, 1 [place] 00 :00 dose, [facility] 04/26/21 at Branch 1530, STAT morpHINE 2020-2020- No 4mg 4 mg, Slow Un tracee injection 4 04-26 IV Push, ity of mg 20:30: 19:28 ONCE, 1 [place] 00 :00 dose, [facility] 04/26/21 at Branch 1530, STAT ondansetron 2020-2020- No 4mg 4 mg, Slow Univers (ZOFRAN [...] IV Medical Infusion, Branch ONCE, 1 dose, [facility] 04/26/21 at 1330, STAT NaCl 0.9% 2020- No 1000mL at 999 Uni vers (NS) bolus 04-26 mL/hr, ity of infusion 18:30: 20:00 1,000 mL, [place] as 1,000 mL 00 :00 IV Medical Infusion, Branch ONCE, 1 dose, [facility] 04/26/21 at 1330, STAT clonazePAM 2020-2020- No [id number] 1mg Take 1 Univers (KLONOPIN) 04-17 tablet by ity of 1 mg tablet 00:00: 04:59 mouth 3 [place] 00 :00 (three) Medical times Branch daily for 5 days. clonazePAM No [id number] 1mg Take 1 Univers (KLONOPIN) 04-17 tablet by ity of 1 mg tablet 00:00: 04:59 mouth 3 [place] 00 :00 (three) Medical times Branch daily for 5 days. TOPIRAMATE 2020- No Take by Uni vers (TOPAMAX 04-12 mouth. ity of ORAL) 01:13: 00:00 [place] 52 :00 Medical Branch ARIPIPRAZOL 2020- No Take by Un tracee E (ABILIFY 04-12 mouth. ity of ORAL) 01:13: 00:00 [place] 52 :00 Medical Branch FLUOXETINE 2020- No Take by Uni vers HCL (PROZAC 04-12 mouth. ity o f ORAL) 01:13: 00:00 [place] 52 :00 Medical Branch Macrobid No 1mg 100 mg 1-29 capsule 00:00: 00 clindamycin 2019-08 No 1mg HCl 300 mg 0-29 capsule 00:00: 00 traMADoL No 50mg 50 mg, Univer s (ULTRAM) 04-29 Oral, ONCE ity of tablet 50 19:30: 18:35 NOW, 1 [place] mg 00 :00 dose, [facility] 04/29/20 at Branch 1430, Routine ketorolac 2019- No 15mg 15 mg, Unive rs (TORADOL) 04-29 Slow IV ity of injection 17:15: 16:31 Push, [place] 15 mg 00 :00 ONCE, 1 Medical dose, [facility] 04/29/20 at 1215, PUSHPA
Fa culty member approving Restricted medication : AMARIS STALLINGS traMADoL 50 2019-0 Yes [id number] 50mg Take 1 Univ ers mg tablet 04-29 tablet by ity o f 00:00: mouth [place] 00 every 6 Medical (six) Branch hours as needed for Pain (scale 7-10). Indication s: acute pain traMADoL 50 2020- No [id number] 50mg Take 1 Uni vers mg tablet 04-29- tablet by ity of 00:00: 00:00 mouth [place] 00 :00 every 6 Medical (six) Branch hours as needed for Pain (scale 7-10). Indication s: acute pain clindamycin 2019-0 2020- No [id number] 450mg Take 3 Univers 150 mg 04-29-20 capsules ity of capsule 00:00: 04:59 by mouth 3 [place] 00 :00 (three) Medical times Branch daily for 10 days. Bactrim DS 2019-0 No 1mg 800 mg-160 7-22 mg tablet 00:00: 00 clindamycin 2019-0 No 1mg HCl 300 mg 7-22 capsule 00:00: 00 clindamycin 2019-0 No 1mg HCl 300 mg 7-14 capsule 00:00: 00 mupirocin 2 2019-0 No 1% % topical 5-29 ointment 00:00: 00 ampicillin 2019-0 No 1mg 500 mg 5-29 capsule 00:00: 00 amoxicillin 2019-0 No 1mg 500 mg 4-03 tablet 00:00: 00 omeprazole 2019-0 No 1mg 40 mg 4-03 capsule,del 00:00: ayed 00 release metronidazo 2018-1 No 4mg le 500 mg 2-23 tablet 00:00: 00 azithromyci 2018-1 No 4mg n 250 mg 2-17 tablet 00:00: 00 metronidazo 2018-1 No 1mg le 500 mg 2-12 tablet 00:00: 00 ketorolac 2018-0 2019- No 60mg 60 mg, Unive rs (TORADOL) 03-19 07- Intramuscu ity of injection 05:45: 04:35 [place], ONCE, [place] 60 mg 00 :00 1 dose, Medical Tue Branch 03/19/19 at 0045, PUSHPA
Fa culty member approving Restricted medication : Vonda AGUILA ibuprofen Yes [id number] 600mg Take 1 U nivers 600 mg 7-29 tablet by ity of tablet 00:00: mouth [place] 00 every 6 Medical (six) Branch hours as needed for Pain (scale 4-6). ibuprofen Yes [id number] 600mg Take 1 U nivers 600 mg 7-29 tablet by ity of tablet 00:00: mouth [place] 00 every 6 Medical (six) Branch hours as needed for Pain (scale 4-6). ibuprofen Yes [id number] 600mg Take 1 U nivers 600 mg 7-29 tablet by ity of tablet 00:00: mouth [place] 00 every 6 Medical (six) Branch hours as needed for Pain (scale 4-6). ibuprofen Yes [id number] 600mg Take 1 U nivers 600 mg 7-29 tablet by ity of tablet 00:00: mouth [place] 00 every 6 Medical (six) Branch hours as needed for Pain (scale 4-6). ibuprofen 2020- No [id number] 600mg Take 1 Univers 600 mg 7-29 08-22 tablet by ity of tablet 00:00: 00:00 mouth [place] 00 :00 every 6 Medical (six) Branch hours as needed for Pain (scale 4-6). TRAZODONE Yes Take by Unive rs HCL 4-26 mouth. ity of (TRAZODONE 18:29: [place] ORAL) Medical Branch PROPRANOLOL 0 Yes Take by Uni vers HCL 4-26 mouth. ity of (PROPRANOLO 18:29: [place] L ORAL) Medical Branch HYDROXYZINE Yes Take by Uni vers HCL ORAL 4-26 mouth. ity of 18:29: [place] [address] Medical Branch DULOXETINE Yes Take by Univ ers HCL 4-26 mouth. ity of (CYMBALTA 18:29: [place] ORAL) Medical Branch ARIPIPRAZOL Yes Take by Uni vers E (ABILIFY 4-26 mouth. ity of ORAL) 18:29: [place] [address] Medical Branch TRAZODONE 0 Yes Take by Unive rs HCL 4-26 mouth. ity of (TRAZODONE 18:29: [place] ORAL) Medical Branch PROPRANOLOL 0 Yes Take by Uni vers HCL 4-26 mouth. ity of (PROPRANOLO 18:29: [place] L ORAL) Medical Branch HYDROXYZINE 0 Yes Take by Uni vers HCL ORAL 4-26 mouth. ity of 18:29: [place] [address] Medical Branch DULOXETINE 0 Yes Take by Univ ers HCL 4-26 mouth. ity of (CYMBALTA 18:29: [place] ORAL) Medical Branch ARIPIPRAZOL Yes Take by Uni vers E (ABILIFY 4-26 mouth. ity of ORAL) 18:29: [place] [address] Medical Branch TRAZODONE Yes Take by Unive rs HCL 4-26 mouth. ity of (TRAZODONE 18:29: [place] [facility] PROPRANOLOL Yes Take by [facility] vers HCL 4-26 mouth. ity of (PROPRANOLO 18:29: [place] [facility]) [facility] HYDROXYZINE Yes Take by Uni vers HCL ORAL 4-26 mouth. ity of 18:29: [place] [address] [facility] DULOXETINE Yes Take by Univ ers HCL 4-26 mouth. ity of (CYMBALTA 18:29: [place] [facility]) [facility] ARIPIPRAZOL Yes Take by Uni vers E (ABILIFY 4-26 mouth. ity of ORAL) 18:29: [place] [address] [facility] TRAZODONE Yes Take by Un[facility] rs HCL 4-26 mouth. ity of (TRAZODONE 18:29: [place] [facility]) [facility] PROPRANOLOL Yes Take by Uni vers HCL 4-26 mouth. ity of (PROPRANOLO 18:29: [place] [facility]) [facility] HYDROXYZINE Yes Take by Uni vers HCL ORAL 4-26 mouth. ity of 18:29: [place] [address] [facility] DULOXETINE Yes Take by Univ ers HCL 4-26 mouth. ity of (CYMBALTA 18:29: [place] [facility]) [facility] ARIPIPRAZOL Yes Take by Uni vers E (ABILIFY 4-26 mouth. ity of ORAL) 18:29: [place] [address] [facility] TRAZODONE Yes Take by Unive rs HCL 4-26 mouth. ity of (TRAZODONE 18:29: [place] ORAL) Medical Branch PROPRANOLOL Yes Take by Uni vers HCL 4-26 mouth. ity of (PROPRANOLO 18:29: [place] L ORAL) Medical Branch HYDROXYZINE Yes Take by Uni vers HCL ORAL 4-26 mouth. ity of 18:29: [place] [address] Medical Branch DULOXETINE Yes Take by Univ ers HCL 4-26 mouth. ity of (CYMBALTA 18:29: [place] ORAL) Medical Branch TRAZODONE Yes Take by Unive rs HCL 4-26 mouth. ity of (TRAZODONE 18:29: [place] ORAL) 35 Medical Branch PROPRANOLOL Yes Take by Uni vers HCL 4-26 mouth. ity of (PROPRANOLO 18:29: [place] L ORAL) 35 Medical Branch HYDROXYZINE Yes Take by Uni vers HCL ORAL 4-26 mouth. ity of 18:29: [place] 35 Medical Branch DULOXETINE Yes Take by Univ ers HCL 4-26 mouth. ity of (CYMBALTA 18:29: [place] ORAL) 35 Medical Branch TRAZODONE Yes Take by Unive rs HCL 4-26 mouth. ity of (TRAZODONE 18:29: [place] ORAL) 35 Medical Branch PROPRANOLOL Yes Take by Uni vers HCL 4-26 mouth. ity of (PROPRANOLO 18:29: [place] L ORAL) 35 Medical Branch HYDROXYZINE Yes Take by Uni vers HCL ORAL 4-26 mouth. ity of 18:29: [place] 35 Medical Branch DULOXETINE Yes Take by Univ ers HCL 4-26 mouth. ity of (CYMBALTA 18:29: [place] ORAL) 35 Medical Branch TRAZODONE Yes Take by Unive rs HCL 4-26 mouth. ity of (TRAZODONE 18:29: [place] ORAL) 35 Medical Branch PROPRANOLOL Yes Take by Uni vers HCL 4-26 mouth. ity of (PROPRANOLO 18:29: [place] L ORAL) 35 Medical Branch HYDROXYZINE Yes Take by Uni vers HCL ORAL 4-26 mouth. ity of 18:29: [place] 35 Medical Branch DULOXETINE Yes Take by Univ ers HCL 4-26 mouth. ity of (CYMBALTA 18:29: [place] ORAL) 35 Medical Branch TRAZODONE Yes Take by Unive rs HCL 4-26 mouth. ity of (TRAZODONE 18:29: [place] ORAL) 35 Medical Branch PROPRANOLOL Yes Take by Uni vers HCL 4-26 mouth. ity of (PROPRANOLO 18:29: [place] L ORAL) 35 Medical Branch HYDROXYZINE Yes Take by Uni vers HCL ORAL 4-26 mouth. ity of 18:29: [place] 35 Medical Branch DULOXETINE Yes Take by Univ ers HCL 4-26 mouth. ity of (CYMBALTA 18:29: [place] ORAL) 35 Medical Branch TRAZODONE Yes Take by Unive rs HCL 4-26 mouth. ity of (TRAZODONE 18:29: [place] ORAL) 35 Medical Branch PROPRANOLOL Yes Take by Uni vers HCL 4-26 mouth. ity of (PROPRANOLO 18:29: [place] L ORAL) 35 Medical Branch HYDROXYZINE Yes Take by Uni vers HCL ORAL 4-26 mouth. ity of 18:29: [place] 35 Medical Branch DULOXETINE Yes Take by Univ ers HCL 4-26 mouth. ity of (CYMBALTA 18:29: [place] ORAL) 35 Medical Branch TRAZODONE Yes Take by Unive rs HCL 4-26 mouth. ity of (TRAZODONE 18:29: [place] ORAL) 35 Medical Branch PROPRANOLOL Yes Take by Uni vers HCL 4-26 mouth. ity of (PROPRANOLO 18:29: [place] L ORAL) 35 Medical Branch HYDROXYZINE Yes Take by Uni vers HCL ORAL 4-26 mouth. ity of 18:29: [place] 35 Medical Branch DULOXETINE Yes Take by Univ ers HCL 4-26 mouth. ity of (CYMBALTA 18:29: [place] ORAL) 35 Medical Branch TRAZODONE Yes Take by Unive rs HCL 4-26 mouth. ity of (TRAZODONE 13:29: [place] ORAL) 35 Medical Branch PROPRANOLOL Yes Take by Uni vers HCL 4-26 mouth. ity of (PROPRANOLO 13:29: [place] L ORAL) 35 Medical Branch HYDROXYZINE Yes Take by Uni vers HCL ORAL 4-26 mouth. ity of 13:29: [place] 35 Medical Branch DULOXETINE Yes Take by Univ ers HCL 4-26 mouth. ity of (CYMBALTA 13:29: [place] ORAL) 35 Medical Branch TRAZODONE Yes Take by Unive rs HCL 4-26 mouth. ity of (TRAZODONE 13:29: [place] ORAL) 35 Medical Branch PROPRANOLOL Yes Take by Uni vers HCL 4-26 mouth. ity of (PROPRANOLO 13:29: [place] L ORAL) 35 Medical Branch HYDROXYZINE Yes Take by Uni vers HCL ORAL 4-26 mouth. ity of 13:29: [place] [address] Medical Branch DULOXETINE Yes Take by Univ ers HCL 4-26 mouth. ity of (CYMBALTA 13:29: [place] ORAL) 35 Medical Branch TRAZODONE Yes Take by Unive rs HCL 4-26 mouth. ity of (TRAZODONE 13:29: [place] ORAL) 35 Medical Branch PROPRANOLOL Yes Take by Uni vers HCL 4-26 mouth. ity of (PROPRANOLO 13:29: [place] L ORAL) 35 Medical Branch HYDROXYZINE Yes Take by Uni vers HCL ORAL 4-26 mouth. ity of 13:29: [place] [address] Medical Branch DULOXETINE Yes Take by Univ ers HCL 4-26 mouth. ity of (CYMBALTA 13:29: [place] ORAL) 35 Medical Branch TRAZODONE Yes Take by Unive rs HCL 4-26 mouth. ity of (TRAZODONE 13:29: [place] ORAL) Medical Branch PROPRANOLOL Yes Take by Uni vers HCL 4-26 mouth. ity of (PROPRANOLO 13:29: [place] L ORAL) Medical Branch HYDROXYZINE Yes Take by Uni vers HCL ORAL 4-26 mouth. ity of 13:29: [place] [address] Medical Branch DULOXETINE Yes Take by Univ ers HCL 4-26 mouth. ity of (CYMBALTA 13:29: [place] ORAL) 35 Medical Branch TRAZODONE Yes Take by Unive rs HCL 4-26 mouth. ity of (TRAZODONE 13:29: [place] ORAL) 35 Medical Branch PROPRANOLOL Yes Take by Uni vers HCL 4-26 mouth. ity of (PROPRANOLO 13:29: [place] L ORAL) 35 Medical Branch HYDROXYZINE Yes Take by Uni vers HCL ORAL 4-26 mouth. ity of 13:29: [place] [address] Medical Branch DULOXETINE Yes Take by Univ ers HCL 4-26 mouth. ity of (CYMBALTA 13:29: [place] ORAL) 35 Medical Branch TRAZODONE Yes Take by Unive rs HCL 4-26 mouth. ity of (TRAZODONE 13:29: [place] ORAL) 35 Medical Branch PROPRANOLOL Yes Take by Uni vers HCL 4-26 mouth. ity of (PROPRANOLO 13:29: [place] L ORAL) 35 Medical Branch HYDROXYZINE Yes Take by Uni vers HCL ORAL 4-26 mouth. ity of 13:29: [place] 35 Medical Branch DULOXETINE Yes Take by Univ ers HCL 4-26 mouth. ity of (CYMBALTA 13:29: [place] ORAL) 35 Medical Branch TRAZODONE Yes Take by Unive rs HCL 4-26 mouth. ity of (TRAZODONE 13:29: [place] ORAL) 35 Medical Branch PROPRANOLOL Yes Take by Uni vers HCL 4-26 mouth. ity of (PROPRANOLO 13:29: [place] L ORAL) 35 Medical Branch HYDROXYZINE Yes Take by Uni vers HCL ORAL 4-26 mouth. ity of 13:29: [place] 35 Medical Branch DULOXETINE Yes Take by Univ ers HCL 4-26 mouth. ity of (CYMBALTA 13:29: [place] ORAL) 35 Medical Branch Miscellaneo Yes [id number] [facility] 12-14 9104 EXTREMITY ity of Supply Misc 00:00: [place]OSTHES [place] NOS, Left Medical bka, needs Branch new prosthesis and supplies Miscellaneo 2019-0 Yes [id number] [facility] 12-14 9104 EXTREMITY ity of Supply Misc 00:00: [place]OSTHES [place] 00 NOS, Left Medical bka, needs Branch new prosthesis and supplies Miscellaneo 2019-0 Yes [id number] [facility] 12-14 9104 EXTREMITY ity of Supply Misc 00:00: PROSTHES [place] 00 NOS, Left Medical bka, needs Branch new prosthesis and supplies Miscellaneo 2019-0 Yes [id number] [facility] 12-14 9104 EXTREMITY ity of Supply Misc 00:00: [place]OST[place]ES [place] 00 NOS, Left Medical bka, needs Branch new prosthesis and supplies Miscellaneo 2019-0 2021- No [id number] [address]04-11 9104 EXTREMITY ity of Supply Misc 00:00: 00:00 PROSTHES [place] 00 :00 NOS, Left Medical bka, needs Branch new prosthesis and supplies TOPIRAMATE 2019-0 Yes Take by [facility] ers (TOPAMAX 4-19 mouth. ity of ORAL) 01:22: [address] Branch TOPIRAMATE 2018-0 Yes Take by [facility] ers (TOPAMAX 4-19 mouth. ity of ORAL) 01:: [address] Branch TOPIRAMATE 0 Yes Take by [facility] ers (TOPAMAX 4-19 mouth. ity of ORAL) 01:22: [address] Branch TOPIRAMATE Yes Take by [facility] ers (TOPAMAX 4-19 mouth. ity of ORAL) 01:22: [address] Branch acetaminoph Yes [id number] 1{tbl} Take 1 Univers en-codeine 4-18 tablet by ity of (TYLENOL-CO 00:00: mouth [place] DEINE #3) 00 every 4 Medical 300-30 mg (four) Branch tablet hours as needed for Pain (scale 7-10). cephALEXin Yes [id number] 250mg Take 1 Univers (KEFLEX) 4-18 capsule by ity o f 250 mg 00:00: mouth [place] capsule 00 every 6 Medical (six) Branch hours. acetaminoph Yes [id number] 1{tbl} Take 1 Univers en-codeine 4-18 tablet by ity of (TYLENOL-CO 00:00: mouth [place] DEINE #3) 00 every 4 Medical 300-30 mg (four) Branch tablet hours as needed for Pain (scale 7-10). cephALEXin Yes [id number] 250mg Take 1 Univers (KEFLEX) 4-18 capsule by ity o f 250 mg 00:00: mouth [place] capsule 00 every 6 Medical (six) Branch hours. acetaminoph Yes [id number] 1{tbl} Take 1 Univers en-codeine 4-18 tablet by ity of (TYLENOL-CO 00:00: mouth [place] DEINE #3) 00 every 4 Medical 300-30 mg (four) Branch tablet hours as needed for Pain (scale 7-10). cephALEXin Yes [id number] 250mg Take 1 Univers (KEFLEX) 4-18 capsule by ity o f 250 mg 00:00: mouth [place] capsule 00 every 6 Medical (six) Branch hours. acetaminoph Yes [id number] 1{tbl} Take 1 Univers en-codeine 4-18 tablet by ity of (TYLENOL-CO 00:00: mouth [place] DEINE #3) 00 every 4 Medical 300-30 mg (four) Branch tablet hours as needed for Pain (scale 7-10). cephALEXin Yes [id number] 250mg Take 1 Univers (KEFLEX) 4-18 capsule by ity o f 250 mg 00:00: mouth [place] capsule 00 every 6 Medical (six) Branch hours. acetaminoph 2020- No [id number] 1{tbl} Take 1 Univers en-codeine 4-18 08-22 tablet by ity of (TYLENOL-CO 00:00: 00:00 [place] DEINE #3[place] 00 :00 every 4 Medical 300-30 mg (four) Branch tablet hours as needed for Pain (scale 7-10). cephALEXin 2020- No [id number] 250mg Take 1 Univers (KEFLEX) 4-18 08-22 capsule by ity of 250 mg 00:00: 00:00 mouth [place] capsule 00 :00 every 6 Medical (six) Branch hours. ibuprofen 2019- No [id number] 600mg Take 1 Univers 600 mg 3- 07-29 3 tablet by ity of tablet 00:00: 00:00 mouth [place] 00 :00 every 6 Medical (six) Branch hours as needed for Pain (scale 4-6). sulfamethox Yes [id number] 1{tbl} Take 1 Univers azole-trime 2-12 tablet by ity of thoprim 00:00: mouth [place] 800-160 mg 00 every 12 Medic al per tablet (twelve) Branc h hours. sulfamethox 2019- Yes [id number] 1{tbl} Take 1 Univers azole-trime 2-12 tablet by ity of thoprim 00:00: mouth [place] 800-160 mg 00 every 12 Medic al per tablet (twelve) Branc h hours. sulfamethox 2019- Yes [id number] 1{tbl} Take 1 Univers azole-trime 2-12 tablet by ity of thoprim 00:00: mouth [place] 800-160 mg 00 every 12 Medic al per tablet (twelve) Branc h hours. sulfamethox 2019- Yes [id number] 1{tbl} Take 1 Univers azole-trime 2-12 tablet by ity of thoprim 00:00: mouth [place] 800-160 mg 00 every 12 Medic al per tablet (twelve) Branc h hours. sulfamethox 2020- No [id number] 1{tbl} Take 1 Univers azole-trime 2-12 08-22 tablet by it y of thoprim 00:00: 00:00 mouth [place] 800-160 mg 00 :00 every 12 Medic al per tablet (twelve) Branc h hours. FLUOXETINE Yes Take by Univ ers HCL (PROZAC 6-27 mouth. ity of ORAL) 17:12: [address] FLUOXETINE Yes Take by Univ ers HCL (PROZAC 6-27 mouth. ity of ORAL) 17:12: [address] FLUOXETINE Yes Take by Univ ers HCL (PROZAC 6-27 mouth. ity of ORAL) 17:12: [address] FLUOXETINE Yes Take by Univ ers HCL (PROZAC 6-27 mouth. ity of ORAL) 17:12: [address] pantoprazol Yes [id number] 40mg Take 1 Univers e 6-27 tablet by ity of (PROTONIX) 00:00: mouth [place] 40 [place] EC 00 (two) Medical tablet times Branch daily. fluticasone Yes [id number] 2{spray Use 2 Univers 50 6-27 } Sprays in ity of mcg/actuati 00:00: each [place] on nasal 00 nostril Medical spray daily. Branch pantoprazol Yes [id number] 40mg Take 1 Univers e 6-27 tablet by ity of (PROTONIX) 00:00: mouth [place] 40 mg EC 00 (two) Medical tablet times Branch daily. fluticasone 2017- Yes [id number] 2{spray Use 2 Univers 50 6-27 } Sprays in ity of mcg/actuati 00:00: each [place] on nasal 00 nostril Medical spray daily. Branch pantoprazol Yes [id number] 40mg Take 1 Univers e 6-27 tablet by ity of (PROTONIX) 00:00: mouth 2 [place] 40 mg EC 00 (two) Medical tablet times Branch daily. fluticasone Yes [id number] 2{spray Use 2 Univers 50 6-27 } Sprays in ity of mcg/actuati 00:00: each [place] on nasal 00 nostril Medical spray daily. Branch pantoprazol Yes [id number] 40mg Take 1 Univers e 6-27 tablet by ity of (PROTONIX) 00:00: mouth 2 [place] 40 mg EC 00 (two) Medical tablet times Branch daily. fluticasone 2017- Yes [id number] 2{spray Use 2 Univers 50 6-27 } Sprays in ity of mcg/actuati 00:00: each [place] on nasal 00 nostril Medical spray daily. Branch pantoprazol 2017-2020- No [id number] 40mg Take 1 Univers e 6-27 08-22 tablet by ity of (PROTONIX) 00:00: 00:00 mouth 2 [place] 40 mg EC 00 :00 (two) Medical tablet times Branch daily. fluticasone 2017-2020- No [id number] 2{spray Use 2 Univers 50 6-27 08-22 [...] tablet times Branch daily with meals. naproxen 0 Yes 550mg Take 1 Univer s sodium [...] Branch daily with meals. metoclopram 2018-0 Yes [id number] 1 tab U nivers arinane HCl 10 5-25 every 4hr ity of mg tablet 00:00: as needed [place] 00 for nausea Medical Branch metoclopram 2018-0 Yes [id number] 1 tab U nivers arianne HCl 10 5-25 every 4hr ity of mg tablet 00:00: as needed [place] 00 for nausea Medical Branch metoclopram 2018-0 Yes [id number] 1 tab U nivers arianne HCl 10 5-25 every 4hr ity of mg tablet 00:00: as needed [place] 00 for nausea Medical Branch metoclopram 2017-0 Yes [id number] 1 tab U nivers arianne HCl 10 5-25 every 4hr ity of mg tablet 00:00: as needed [place] 00 for nausea Medical Branch metoclopram 2018-0 2021- No [id number] 1 tab Univers arianne HCl 10 5-25 08-22 every 4hr ity of mg tablet 00:00: 00:00 [place] 00 :00 for nausea Medical Branch phenazopyri 2018-0 Yes 200mg Take 1 Uni vers dine 200 mg 5-10 tablet by ity of tablet 00:00: mouth (three) Medical times Branch daily. ondansetron 2018-0 Yes 4mg Take 1 Univ ers (ZOFRAN 5-10 tablet by ity of ODT) 4 mg 00:00: mouth [place] disintegrat 00 every 8 Medic al ing tablet (eight) Branch hours as needed for Nausea and Vomiting (N/V). phenazopyri 2018-0 Yes 200mg Take 1 Uni vers dine 200 mg 5-10 tablet by ity of tablet 00:00: mouth (three) Medical times Branch daily. ondansetron 2018-0 [...] needed for Nausea and Vomiting (N/V). acetaminoph 2018- Yes [id number] 1{tbl} Take 1-2 Univers en-codeine 5-01 tablets by ity of 300-30 mg 00:00: mouth [place] tablet 00 every 6 Medical (six) Branch hours as needed for Pain (scale 4-6) or Pain (scale 7-10) (for breakthrou gh pain). acetaminoph 2018-0 Yes [id number] 1{tbl} Take 1-2 Univers en-codeine 5-01 tablets by ity of 300-30 mg 00:00: mouth [place] tablet 00 every 6 Medical (six) Branch hours as needed for Pain (scale 4-6) or Pain (scale 7-10) (for breakthrou gh pain). acetaminoph 2018-0 Yes [id number] 1{tbl} Take 1-2 Univers en-codeine 5-01 tablets by ity of 300-30 mg 00:00: mouth [place] tablet 00 every 6 Medical (six) Branch hours as needed for Pain (scale 4-6) or Pain (scale 7-10) (for breakthrou gh pain). acetaminoph Yes [id number] 1{tbl} Take 1-2 Univers en-codeine 5-01 tablets by ity of 300-30 mg 00:00: mouth [place] tablet 00 every 6 Medical (six) Branch hours as needed for Pain (scale 4-6) or Pain (scale 7-10) (for breakthrou gh pain). acetaminoph 2020- No [id number] 1{tbl} Take 1-2 Univers en-codeine 5-01 08-22 tablets by it y of 300-30 mg 00:00: 00:00 mouth [place] tablet 00 :00 every 6 Medical (six) Branch hours as needed for Pain (scale 4-6) or Pain (scale 7-10) (for breakthrou gh pain). meclizine Yes [id number] 25mg Take 1 U nivers 25 mg 3-30 tablet by ity of tablet 00:00: mouth 3 [place] 00 (three) Medical times Branch daily as needed for Dizziness. meclizine Yes [id number] 25mg Take 1 U nivers 25 mg 3-30 tablet by ity of tablet 00:00: mouth 3 [place] 00 (three) Medical times Branch daily as needed for Dizziness. meclizine Yes [id number] 25mg Take 1 U nivers 25 mg 3-30 tablet by ity of tablet 00:00: mouth 3 [place] 00 (three) Medical times Branch daily as needed for Dizziness. meclizine Yes [id number] 25mg Take 1 U nivers 25 mg 3-30 tablet by ity of tablet 00:00: mouth 3 [place] 00 (three) Medical times Branch daily as needed for Dizziness. meclizine 2020- No [id number] 25mg Take 1 Univers 25 mg 3-30 08-22 tablet by ity of tablet 00:00: 00:00 mouth 3 [place] 00 :00 (three) Medical times Branch daily as needed for Dizziness. sod Yes 1{bottl Use 1 Univers chlor-bicar [...] syrup daily as Branch needed for Cough. promethazin 2020- No 5mL Take 5 mL Univers e-codeine 2-10 04-11 by mouth 4 ity of 6.25-10 00:00: 00:00 (four) [place] mg/5 mL 00 :00 times Medical syrup daily as Branch needed for Cough. sod 2020- No 1{bottl Use 1 Univers chlor-bicar 09-30 e} Bottle in it y of b-squeez 00:00: 00:00 each [place] bottle 00 :00 nostril 2 Medical (NEILMED (two) Branch SINUS RINSE times COMPLETE) daily. Use pkdv in hot shower 1 hour before bedtime ondansetron Yes 4mg Take 1 Univ ers [...] Take [address] [facility] (ATARAX) 25 -26 by mouth 4 Rosangela kes MG tablet 15:00: (four) Medica l 29 times Center daily. propranolol 2016-08 Yes 20mg Q.5D Take [address] [facility] (INDERAL) -26 by mouth 2 [place] [facility] 20 MG 15:00: (two) Medical tablet 29 times Center daily. traZODone 2016-08 Yes 150mg QD Take [address] [facility] (DESYREL) 1-26 mg by [facility] 150 MG 15:00: mouth Medical tablet 29 nightly. [place] ARIPiprazol 2016-08 Yes 15mg QD Take [address] [facility] e (ABILIFY) - by mouth [place] [facility] 15 MG 15:00: [...] Tooth 800mg Take 4 Anette is (MOTRIN) 8 infection tablets by Health 200 mg 00:00: mouth tablet 00 every 6 hours as needed for Pain. ARIPIPRAZOL Yes Take by Benjamín Rutledge (ABILIFY 04-16 mouth. Health OR) 13:48: 28 DULOXETINE Yes Take by Anette is HCL 04-16 mouth. Health (CYMBALTA 13:48: OR) 28 TOPIRAMATE Yes Take by Anette is (TOPAMAX 04-16 mouth. Health OR) 13:48: 28 TRAZODONE Yes Take by Harri s HCL 8- mouth. Health (TRAZODONE 13:48: OR) 28 PROPRANOLOL Yes Take by Benjamín ris HCL 8- mouth. Health (PROPRANOLO 13:48: L OR) 28 HYDROXYZINE Yes Take by Benjamín ris HCL OR 8- mouth. Health 13:48: 28 budesonide- Yes Unspecified 2{puff} Q.5D Inhale 2 Krishnamurthy formoterol 04-16 chronic Puffs by He maxim (SYMBICORT) 00:00: bronchitis mouth 2 80-4.5 00 times mcg/actuati daily on inhaler Rinse mouth after each use.. Vital Signs Vital Name Observation Time Observation Value Comments Source Systolic blood 2021-10-10 17:08:00 136 mm[Hg] Univer sity [facility] Diastolic blood 2021-10-10 17:08:00 86 mm[Hg] Unive [facility] [place] Heart rate 2021-10-10 17:08:00 78 /min [facility] Body temperature 2021-10-10 17:08:00 36.5 [facility] Respiratory rate 2021-10-10 17:08:00 16 /min [facility] Body height 2021-10-10 17:08:00 172.7 cm [facility] Body weight 2021-10-10 17:08:00 83.915 kg [facility] BMI 2021-10-10 17:08:00 28.13 kg/m2 [facility] Oxygen saturation in 2021-10-10 17:08:00 99 /min [facility] Arterial blood by [facility] Pulse oximetry Branch Systolic blood 2021-10-01 03:09:00 144 [facility]Hg[facility]10[facility]01 03:09:00 [facility] 03:09:00 87 /min [facility] Body temperature 2021-10-01 03:09:00 36.72 [facility] Respiratory rate 2021-10-01 03:09:00 20 /min [facility] [place] [facility] Body height 2021-10-01 03:09:00 172.7 cm [facility] [place] [facility] Body weight 2021-10-01 03:09:00 81.647 kg [facility] [place] [facility] BMI 2021-10-01 03:09:00 27.37 kg/m2 [facility] [place] [facility] Oxygen saturation in 2021-10-01 03:09:00 98 /min University of Arterial blood by [facility] mary ann Pulse oximetry Branch Systolic blood 2021-09-17 06:40:00 103 mm[Hg] Univer sity of pressure [place] [facility] Diastolic blood 2021-09-17 06:40:00 60 mm[Hg] Unive rsity of pressure [place] [facility] Heart rate 2021-09-17 06:40:00 64 /min [facility] [place] [facility] Oxygen saturation in 2021-09-17 06:40:00 97 /min University of Arterial blood by [facility] Pulse oximetry Branch Body temperature 2021-09-17 03:46:00 36.94 [facility] [place] [facility] Respiratory rate 2021-09-17 03:46:00 18 /min [facility] [place] [facility] Body height 2021-09-17 03:46:00 172.7 cm [facility] [place] [facility] Body weight 2021-09-17 03:46:00 84.823 kg [facility] [place] [facility] BMI 2021-09-17 03:46:00 28.43 kg/m2 [facility] [place] [facility] Systolic blood 2021-09-15 19:50:00 129 mm[Hg] Univer sity of pressure [place] [facility] Diastolic blood 2021-09-15 19:50:00 75 mm[Hg] Unive rsity of pressure [place] [facility] Heart rate 2021-09-15 19:50:00 80 /min [facility] [place] [facility] Oxygen saturation in 2021-09-15 19:50:00 99 /min University of Arterial blood by [facility] mary ann Pulse oximetry Branch Body temperature 2021-09-15 18:37:00 37.06 [facility] [place] [facility] Respiratory rate 2021-09-15 18:37:00 18 /min [facility] [place] [facility] Body height 2021-09-15 18:37:00 172.7 cm [facility] [place] [facility] Body weight 2021-09-15 18:37:00 84.823 kg [facility] [place] [facility] BMI 2021-09-15 18:37:00 28.43 kg/m2 [facility] [place] [facility] Systolic blood 2021-08-21 22:49:00 142 mm[Hg] Univer sity of pressure [place] [facility] Diastolic blood 2021-08-21 22:49:00 89 mm[Hg] Unive rsity of pressure [place] [facility] Heart rate 2021-08-21 22:49:00 71 /min [facility] [place] [facility] Oxygen saturation in 2021-08-21 22:49:00 99 /min University of Arterial blood by [facility] Pulse oximetry Branch Body temperature 2021-08-21 21:55:00 [...] 99 /min University of Arterial blood by [facility] mary ann Pulse oximetry Branch Body temperature [...] 100 /min University of Arterial blood by [facility] mary ann Pulse oximetry Branch [...] 98 /min University of Arterial blood by [facility] mary ann Pulse oximetry Branch [...] 99 /min University of Arterial blood by [facility] Pulse oximetry Branch Body temperature 2020-04-29 15:43:00 [...] 99 /min University of Arterial blood by [facility] Pulse oximetry Branch Body temperature 2020-04-29 15:43:00 [...] 98 /min [facility] of Arterial blood by [place] [facility] mary ann Pulse oximetry Branch Systolic blood [...] 98 /min University of Arterial blood by [facility] mary ann Pulse oximetry Branch [...] 97 /min University of Arterial blood by [facility] mary ann Pulse oximetry Branch Body temperature [...] saturation in 2019-03-19 04:00:00 97 /min University Arterial blood by [facility] Pulse oximetry [place] Body temperature 2019-03-19 03:28:00 36.67 [facility] Body weight 2019-03-19 03:28:00 90.719 kg [facility] BMI 2019-03-19 03:28:00 30.41 kg/m2 [facility] BP Systolic 2022-03-22 11:02:00 168 mm[Hg] BP Diastolic 2022-03-22 11:02:00 107 mm[Hg] Weight Measured 2022-03-22 11:02:00 163.60 pounds Height Measured 2022-03-22 11:02:00 68.00 inches Body Temperature 2022-03-22 11:02:00 98.10 degrees Heart Rate 2022-03-22 11:02:00 80.00 /min Respiratory Rate 2022-03-22 11:02:00 18.00 /min BP Systolic 2022-01-31 15:40:00 122 mm[Hg] BP Diastolic 2022-01-31 15:40:00 79 mm[Hg] Weight Measured 2022-01-31 15:40:00 170.60 pounds Height Measured 2022-01-31 15:40:00 68.00 inches Body Temperature 2022-01-31 15:40:00 98.00 degrees Heart Rate 2022-01-31 15:40:00 86.00 /min Respiratory Rate 2022-01-31 15:40:00 18.00 /min BP Systolic 2021-12-28 09:30:00 132 mm[Hg] BP Diastolic 2021-12-28 09:30:00 80 mm[Hg] Weight Measured 2021-12-28 09:30:00 178.20 pounds Height Measured 2021-12-28 09:30:00 68.00 inches Body Temperature 2021-12-28 09:30:00 98.30 degrees Heart Rate 2021-12-28 09:30:00 76.00 /min Respiratory Rate 2021-12-28 09:30:00 18.00 /min BP Systolic 2021-12-21 10:27:00 129 mm[Hg] BP Diastolic 2021-12-21 10:27:00 80 mm[Hg] Weight Measured 2021-12-21 10:27:00 178.00 pounds Height Measured 2021-12-21 10:27:00 68.00 inches Body Temperature 2021-12-21 10:27:00 98.00 degrees Heart Rate 2021-12-21 10:27:00 90.00 /min Respiratory Rate 2021-12-21 10:27:00 BP Systolic 2021-10-07 13:19:00 136 mm[Hg] BP Diastolic 2021-10-07 13:19:00 90 mm[Hg] Weight Measured 2021-10-07 13:19:00 188.60 pounds Height Measured 2021-10-07 13:19:00 68.00 inches Body Temperature 2021-10-07 13:19:00 98.00 degrees Heart Rate 2021-10-07 13:19:00 70.00 /min Respiratory Rate 2021-10-07 13:19:00 BP Systolic 2021-09-21 18:14:00 BP Diastolic 2021-09-21 18:14:00 Weight Measured 2021-09-21 18:14:00 189.40 pounds Height Measured 2021-09-21 18:14:00 68.00 inches Body Temperature 2021-09-21 18:14:00 Heart Rate 2021-09-21 18:14:00 Respiratory Rate 2021-09-21 18:14:00 BP Systolic 2021-09-20 14:58:00 112 mm[Hg] BP Diastolic 2021-09-20 14:58:00 80 mm[Hg] Weight Measured 2021-09-20 14:58:00 189.40 pounds Height Measured 2021-09-20 14:58:00 68.00 inches Body Temperature 2021-09-20 14:58:00 98.50 degrees Heart Rate 2021-09-20 14:58:00 82.00 /min Respiratory Rate 2021-09-20 14:58:00 17.00 /min BP Systolic 2021-09-15 11:52:00 142 mm[Hg] BP Diastolic 2021-09-15 11:52:00 95 mm[Hg] Weight Measured 2021-09-15 11:52:00 187.40 pounds Height Measured 2021-09-15 11:52:00 68.00 inches Body Temperature 2021-09-15 11:52:00 97.80 degrees Heart Rate 2021-09-15 11:52:00 77.00 /min Respiratory Rate 2021-09-15 11:52:00 BP Systolic 2021-08-26 08:51:00 124 mm[Hg] BP Diastolic 2021-08-26 08:51:00 78 mm[Hg] Weight Measured 2021-08-26 08:51:00 193.60 pounds Height Measured 2021-08-26 08:51:00 68.00 inches Body Temperature 2021-08-26 08:51:00 98.30 degrees Heart Rate 2021-08-26 08:51:00 97.00 /min Respiratory Rate 2021-08-26 08:51:00 21.00 /min BP Systolic 2021-07-21 13:43:00 BP Diastolic 2021-07-21 13:43:00 Weight Measured 2021-07-21 13:43:00 195.00 pounds Height Measured 2021-07-21 13:43:00 68.00 inches Body Temperature 2021-07-21 13:43:00 Heart Rate 2021-07-21 13:43:00 Respiratory Rate 2021-07-21 13:43:00 Procedures Procedure Date / Time Performing Clinician Source Performed POCT TEST 2021-10-10 17:30:00 Pino Aldana [facility] CONSENT/REFUSAL FOR 2021-10-10 16:56:51 Doctor Unassigned, No [facility] [place] [facility] POCT TEST 2021-10-01 03:23:00 Katelyn Baker [facility] URINALYSIS 2021-10-01 03:17:00 Katelyn Baker [facility] NOTICE OF PRIVACY 2021-10-01 03:03:14 Doctor Unassigned, No Univ ersity [facility] PRACTICES Name [facility] CONSENT/REFUSAL FOR 2021-10-01 03:00:51 Doctor Unassigned, No Un [facility] DIAGNOSIS AND TREATMENT Name [facility] US OVARY TORSION 2021-09-17 05:52:50 Katherin Maurer [facility] NOTICE OF PRIVACY 2021-09-17 03:47:38 Doctor Unassigned, No [facility] PRACTICES Name Medical Branch CONSENT/REFUSAL FOR 2021-09-17 03:41:04 [facility] Name [facility] CT ABDOMEN PELVIS W 2021-09-15 19:51:50 Pino Aldana [facility] CONTRAST [facility] Branch POCT TEST 2021-09-15 19:00:00 Pino Aldana [facility] LIPASE 2021-09-15 18:56:00 Pino Aldana [facility] COMP. METABOLIC PANEL 2021-09-15 18:56:00 Pino Aldana [facility] ([id number]) Medical [place] CBC WITH DIFF 2021-09-15 18:56:00 Pino Aldana [facility] URINALYSIS 2021-09-15 18:56:00 Katya Pino B [facility] COVID-19 (ID NOW RAPID 2021-09-15 18:56:00 Katya Pino B [facility] TESTING) Medical Branch CONSENT/REFUSAL FOR 2021-09-15 18:28:32 Doctor Unassigned, No Un [facility] DIAGNOSIS AND TREATMENT Name [facility] CT HEAD WO CONTRAST 2021-08-21 22:46:54 Katherin Maurer [facility] POCT TEST 2021-08-21 22:39:00 Katherin Maurer [facility] COMP. METABOLIC PANEL 2021-08-21 22:32:[address] [facility] ([id number]) Medical Branch CBC WITH DIFF 2021-08-21 22:32:00 Katherin Maurer [place] [facility] RAPID INFLUENZA A/B 2021-08-21 22:32:00 Katherin Maurer [facility] COVID-19 (ID NOW RAPID 2021-08-21 22:32:00 Katherin Maurer [facility] TESTING) Medical Branch CONSENT/REFUSAL FOR 2021-08-21 21:45:27 Doctor Unassigned, No Un [facility] DIAGNOSIS AND TREATMENT Name Medical Branch FREE T4 2021-04-26 20:43:00 Blayne Hairston [facility] CREATINE KINASE 2021-04-26 20:41:00 Blayne Hairston [facility] MAGNESIUM 2021-04-26 20:41:00 Blayne Hairston [facility] TROPONIN I 2021-04-26 20:41:00 Blayne Hairston [facility] COMP. METABOLIC PANEL 2021-04-26 20:41:[address] [facility] ([id number]) [facility] [place] SEDIMENTATION RATE 2021-04-26 19:33:00 Blayne Hairston [facility] CT CERVICAL SPINE WO 2021-04-26 19:00:47 Blayne Hairston [facility] CONTRAST [facility] CT HEAD WO CONTRAST 2021-04-26 19:00:47 Blayne Hairston [facility] COVID-19 (ID NOW RAPID 2021-04-26 18:30:00 Blayne Hairston [facility] TESTING) [facility] [place] THYROID STIMULATING 2021-04-26 18:25:00 Blayne Hairston [facility] HORMONE [facility] CBC WITH DIFF 2021-04-26 18:25:00 Blayne Hairston [facility] N-TERMINAL PRO-BNP 2021-04-26 18:25:00 Blayne Hairston [facility] POCT TEST 2021-04-26 18:24:00 Blayne Hiarston [facility] URINALYSIS 2021-04-26 18:23:00 Blayne Hairston [facility] URINE DRUG (IMMUNOASSAY) 2021-04-26 18:23:00 Blayne Hairston [facility] DRUG Medical [facility] nch SCREEN W/O REFLEX CONSENT/REFUSAL FOR 2021-04-26 16:29:45 Doctor Unassigned, No [facility] Name [facility] [place] ASSIGNMENT OF BENEFITS 2021-04-18 01:01:09 Doctor Unassigned, No [facility] Name Medical Branch CONSENT/REFUSAL FOR 2021-04-17 23:47:56 Doctor Unassigned, No [facility] Name [facility] POCT TEST 2021-04-12 00:20:00 [facility] URINALYSIS 2021-04-12 00:18:00 John Hinkle [facility] CONSENT/REFUSAL FOR 2021-04-12 00:10:24 Doctor Unassigned, No [facility] [place] [facility]REAT[facility] Name [facility] XR KNEE 3 VW LEFT 2020-04-29 16:37:20 Amaris Stallings [facility] COMP. METABOLIC PANEL 2020-04-29 16:30:[address] [facility] ([id number]) [facility] CBC WITH DIFF 2020-04-29 16:30:00 Amaris Stallings [facility] POCT TEST 2020-04-29 16:24:00 Amaris Stallings [facility] RAPID STREP SCREEN FOR 2020-04-29 16:11:00 Amaris Stallings [facility] GROUP A [facility] NOTICE OF PRIVACY 2020-04-29 15:31:17 Doctor Unassigned, No [facility] CONSENT[facility]REFUSAL FOR 2020-04-29 15:31:01 Doctor Unassigned, No [facility] [place] DI[facility] AND TREATMENT [facility] POCT TEST 2019-03-19 04:24:00 Vonda Aguila [facility] NOTICE OF PRIVACY 2019-03-19 03:19:57 Doctor [facility]igned, [facility] CONSENT[facility]REFUSAL FOR 2019-03-19 03:19:41 Doctor Unassigned, No [facility] [place] DI[facility] AND TREATMENT Name [facility] Plan of Care Planned Activity Planned Date Details Comments Source Future Scheduled 2021-05-21 IMM Influ[facility] 00:00:00 Seasonal May to October (>/= 19 yrs) [code = IMM Influenza Seasonal May to October (>/= 19 yrs)] Future Scheduled 2020-04-20 [facility]ening [facility] 00:00:00 malignant neoplasm of cervix (procedure) [code = 453847381] Future Scheduled 2015 [facility] 00:00:00 malignant neoplasm of cervix (procedure) [code = 445395056] Future Scheduled 1997 COVID-19 Vaccine [facility] 00:00:00 (1) [code = COVID-19 Vaccine (1)] Future [facility]uled [facility] [code = [facility] VACCINE] Future Scheduled COVID-[address] [facility] (1) [code = COVID-19 VACCINE (1)] Future Scheduled Screening [facility] malignant neoplasm of cervix (procedure) [code = 106169109] Goal Plan of Care Note [code = 54820-0] Goal Plan of Care Note [code = 26008-4] Goal Plan of Care Note [code = 58901-4] Goal Plan of Care Note [code = 34564-7] Goal Plan of Care Note [code = 54785-9] Goal Plan of Care Note [code = 74422-7] Goal Plan of Care Note [code = 72855-1] Goal Plan of Care Note [code = 43522-0] Goal Plan of Care Note [code = 56953-8] Goal Plan of Care Note [code = 82695-4] Goal Plan of Care Note [code = 81912-1] Goal Plan of Care Note [code = 38186-9] Goal Plan of Care Note [code = 23872-2] Goal Plan of Care Note [code = 18521-4] Goal Plan of Care Note [code = 18125-8] Goal Plan of Care Note [code = 69699-1] Goal Plan of Care Note [code = 98027-4] Goal Plan of Care Note [code = 01573-3] Goal Plan of Care Note [code = 21789-0] Goal Plan of Care Note [code = 47003-4] Goal Plan of Care Note [code = 86294-5] Goal Plan of Care Note [code = 94778-8] Goal Plan of Care Note [code = 84577-3] Goal Plan of Care Note [code = 64909-3] Goal Plan of Care Note [code = 66600-3] Goal Plan of Care Note [code = 76918-5] Goal Plan of Care Note [code = 12340-3] Goal Plan of Care Note [code = 88467-2] Goal Plan of Care Note [code = 71512-4] Goal Plan of Care Note [code = 24489-6] Goal Plan of Care Note [code = 64548-5] Goal Plan of Care Note [code = 42149-9] Goal Plan of Care Note [code = 80417-0] Goal Plan of Care Note [code = 79406-6] Goal Plan of Care Note [code = 58704-4] Goal Plan of Care Note [code = 48097-8] Goal Plan of Care Note [code = 68016-6] Goal Plan of Care Note [code = 59252-9] Goal Plan of Care Note [code = 06887-2] Goal Plan of Care Note [code = 27684-3] Goal Plan of Care Note [code = 77672-3] Goal Plan of Care Note [code = 53473-8] Goal Plan of Care Note [code = 87847-8] Goal Plan of Care Note [code = 06800-7] Goal Plan of Care Note [code = 52193-8] Goal Plan of Care Note [code = 52879-1] Encounters Start End Encounter Admission Attending Care Care Encounter Source Date/Time Date/Time Type Type Clinicians Facility Department ID 2021-06-21 Emergency [facility] [id number] [facility]21 Emergency [facility] [id number] Univers 18:[facility]-06-21 [facility] [id number] Univers [facility]:14[facility]-06-18 [facility] [id number] Univers 16:34:49 [facility] 2022-03-22 2022-03-22 Outpatient [id number] 00:00:00 00:00:00 Visit [id number] 2021-10-10 2021-10-10 Emergency X KATYA [facility] ERT [id number] Univers 11:13:00 11:56:00 [facility] 2021-10-10 2021-10-10 [facility] Katya [facility] [id number] Univers 11:13:00 11:56:00 Pino BOWLE[place]ON [id number] i ty of [place] [id number] [facility] [id number] [address] 2021-09-30 2021-09-30 Emergency X [facility] ERT [id number] Univers 21:14:00 22:04:00 KATELYN ity [facility] 2021-09-30 2021-09-30 Emergency [facility] [id number] Univers 21:14:00 22:04:00 Katelyn CARRANZA [id number] ity of [place] 4.2.7.2.686 [facility] [id number] [address] 2021-09-30 2021-09-30 Orders Doctor ANTHONY 1.2.840.114 [id number] Univers 00:00:00 00:00:00 Only Unassigned, LINDA [id number] [facility] [id number] Luis [id number] [address] 2021-09-16 2021-09-17 Emergency [facility] [id number] Univers 21:51:00 00:42:00 KATHERIN ity [facility] 2021-09-16 2021-09-17 Emergency [facility] [id number] Univers 21:51:00 00:42:00 Katherin BOWLE[place] [id number] i ty of [place] 4.2.7.2.6 [facility] [id number] [address] 2021-09-15 2021-09-15 Emergency X [facility] ERT [id number] Univers 12:41:00 15:07:00 PINO ity [facility] 2021-09-15 2021-09-15 Emergency [facility] 1.2.840.114 [id number] Univers 12:41:00 15:07:00 Pino B [place] [id number] i ty of [place] 4.2.7.2.686 [facility] [id number] [address] 2021-08-21 2021-08-21 Emergency [facility] [id number] Univers 15:57:00 17:52:00 KATHERIN ity of [facility] 2021-08-21 2021-08-21 [facility] [id number] Univers 15:57:00 17:52:00 Katherin Jeter [place] [id number] i ty [facility] 4.2.7.2.686 [facility] [id number] [address] 2021-08-21 2021-08-21 Orders Doctor ANTHONY 1.2.840.114 [id number] Univers 00:00:00 00:00:00 Only Unassigned, LINDA [id number] ity of [place] [facility] 4.2.7.2.686 Luis as [id number] [address] 2021-04-26 2021-04-26 [facility] [id number] Univers 12:05:00 17:42:00 Blayne Carranza [id number] i ty of [place] 4.2.7.2.686 [facility] [id number] [address] 2021-04-26 2021-04-26 Orders Doctor CRUZ 1.2.840.114 [id number] Univers 00:00:00 00:00:00 Only Unassigned, LINDA [id number] ity of [place] [facility] 4.2.7.2.686 Luis as [id number] [address] 2021-04-17 2021-04-17 Emergency [facility] [id number] Univers 18:55:00 20:04:00 Basil Carranza [id number] i ty of [place] 4.2.7.2.686 [facility] [id number] [address] 2021-04-11 2021-04-11 Emergency [facility] [id number] Univers 19:20:00 20:53:00 Katherin Carranza [id number] i ty of [place] 4.2.7.2.686 [facility] [id number] [address] 2020-04-29 2020-04-29 Emergency [facility] [id number] 10:44:00 14:30:00 Amaris [place] [id number] [place] 4.2.7.2.686 [place] [id number] [facility] 2020-04-29 2020-04-29 Emergency [facility] [id number] [facility] 10:44:00 14:30:00 Amaris R [place] [id number] i ty of [place] 4.2.7.2.686 [facility] [id number] [address] 2020-04-29 2020-04-29 Orders Doctor CRUZ 1.2.840.114 [id number] 00:00:00 00:00:00 Only Unassigned, LINDA [id number] [place] [facility] 4.2.7.2.686 [id number] [facility] 2020-04-29 2020-04-29 Orders Doctor CRUZ 1.2.840.114 [id number] Univers 00:00:00 00:00:00 Only Unassigned, LINDA [id number] ity of [place] [facility] 4.2.7.2.686 [facility] [id number] [address] 2019-04-14 2019-04-14 Emergency [facility] 1.2.840.114 [id number] 17:25:25 17:58:00 Ad Carranza [id number] [place] 4.2.7.2.686 [place] [id number] [facility] 2019-04-14 2019-04-14 Emergency [facility] 1.2.840.114 [id number] [facility] 17:25:25 17:58:00 Ad Carranza 350.1.13.10 i ty of [place] 4.2.7.2.686 [facility] [id number] [address] 2019-03-18 2019-03-18 Emergency Vonda Aguila [facility] 1.2.840.114 [id number] 22:34:35 23:51:00 Maribel Carranza [id number] [place] 4.2.7.2.686 [place] [id number] 2019-03-18 2019-03-18 Emergency Vonda Aguila [facility] 1.2.840.114 [id number] [facility] 22:34:35 23:51:00 Maribel Carranza [id number] i ty of [place] 4.2.7.2.686 [facility] [id number] [facility] 084 [place] 2017-04-09 2017-04-09 Emergency [facility] [id number] Krishnamurthy 00:00:00 00:00:00 Health 2017-04-09 2017-04-09 Emergency [facility] [id number] Krishnamurthy 00:00:00 00:00:00 [facility] 2017-04-08 2017-04-08 Emergency [facility] [id number] Krishnamurthy 22:35:00 22:35:00 Health 2017-04-08 2017-04-08 Emergency [facility] [id number] Krishnamurthy 00:00:00 00:00:00 Health Results Test Description Test Time Test Comments Results Result Comments Source CBC W/AUTO DIFF WITH PLATELETS 2022-03-23 08:28:04 Test Item Value Reference Range Interpretation Comme nts WBC (test code = 1001) 11.4 K/UL 3.5-11.0 H RBC (test code = 1002) 4.01 M/UL 3.80-5.40 HEMOGLOBIN (test code = 1003) 12.3 G/DL 11.5-15.5 HEMATOCRIT (test code = 1004) 36.2 % 34.0-45.0 MCV (test code = 1005) 90.3 fL 80.0-99.0 MCH (test code = 1006) 30.7 PG 25.0-33.0 MCHC (test code = 1007) 34.0 G/DL 31.0-36.0 RDW (test code = 1038) 12.3 % 11.5-15.0 NEUTROPHILS (test code = 67.7 % 1008) LYMPHOCYTES (test code = 25.7 % 1010) MONOCYTES (test code = 1011) 4.6 % EOSINOPHILS (test code = 1.1 % 1012) BASOPHILS (test code = 1013) 0.5 % IMMATURE GRANULOCYTES (test 0.4 % code = 1036) NUCLEATED RBCS (test code = 0.0 /100 WBC'S See_Comment [Automated message] The 1065) system which ge nerated this result transmit marcello reference range : 0.0. The reference range was not used to interpr et this result as cricket l/abnormal. PLATELET COUNT (test code = 443 K/UL 130-400 H 1015) ABSOLUTE NEUTROPHILS (test 7.72 K/UL 1.50-7.50 H code = 1066) ABSOLUTE LYMPHOCYTES (test 2.93 K/UL 1.00-4.00 code = 1067) ABSOLUTE MONOCYTES (test code 0.53 K/UL 0.20-1.00 = 1068) ABSOLUTE EOSINOPHILS (test 0.12 K/UL 0.00-0.50 code = 1040) ABSOLUTE BASOPHILS (test code 0.06 K/UL 0.00-0.20 = 1069) ABS IMMATURE GRANULOCYTES 0.04 K/UL 0.00-0.10 (test code = 1020) ABS NUCLEATED RBCS (test code 0.00 K/UL 0.00-0.11 = 33212) TSH, THIRD [id number] 06:43:39 Test Item Value Reference Range Interpretation Comments TSH, THIRD GENERATION (test code 0.359 UIU/ML 0.400-4.100 L = 2821) [id number] 06:43:39 Test Item Value Reference Range Interpretation Comments ESTRADIOL (test 34.5 PG/ML SEE BELOW EXPE CTED VALUES FOR code = 2505) ESTRADIOL FOR F EMALES >=18 YEARS FO LLICULAR . . . . . . . . . . . . . PG/ML 12.4-233.0 OVUL ATION. . . . . . . . . . . . . . PG/ML 41.0-398.0 LUTE AL PHASE . . . . . . . . . . . . PG/ML 22.3-341.0 POST MENOPAUSAL SUPPLEMENTED/NO N-SUPP . PG/ML <138.0/<20.0 NO TE: TO DETERMINE CRICKET L VS. SUBNORMAL ESTRA DIOL IN POSTMENOPAUSAL FEMALES, CONSIDER ULTRAS ENSITIVE ESTRADIOL (CPL ORDER CODE 5678). METHODOL OGY IS LUZ DIANA ELECTROCH EMILUMINESCENT IMMUNOASSAY WIT H A LIMIT OF DETECTION OF 17 PG/ML. FSH + LH [id number] 06:43:39 Test Item Value Reference Range Interpretation Comments FOLLICLE STIM HORMONE 12.1 IU/L SEE BELOW EXPECTED (test code = 2700) VALUES FO R FSH FOR FEMALES >17 YEA RS MALES F EMALES >=18 YEARS 1.5 -12.4 IU/L FOLLICULAR 3.5-12.5 IU/L M ID-CYCLE PEAK 4.7-21.5 I U/L LUTEAL PHASE 1 .7-7.7 IU/L POSTMENOPA USAL 25.8-134.8 IU/L LUTEINIZING HORMONE 5.2 IU/L SEE BELOW EXPECTED (test code = 2776) VALUES FO R LH FOR FEMALES >17 YEA RS MALES F EMALES >=18 YEARS 1.8- 8.6 IU/L FOLLICULAR 2.4- 12.6 IU/L MID-CYCLE PEAK 14.0-95.6 IU/L LUTEAL PHASE 1.0-11.4 IU/L POSTMENOPAUSAL 7.7-58.5 IU/L [id number] 06:43:39 Test Item Value Reference Range Interpretation Comments PROLACTIN (test 5.6 NG/ML 5.0-37.0 NOTE: Metho dology is Luz code = 2800) Diana Electroch emiluminescence Immunoassay (EC VERNON). Values obtained with d ifferent assays/manufact urers cannot be used interchang eably. Results should not be u sed as sole basis to establ ben the presence or abs ence of malignancy. UNL ESS OTHERWISE INDICATED, ALL TESTING PERFORMED [facility], [facility]. [address] [place] [address] 2631 FORM SETTER STEEL PAN FORMS: Karen MONTERROSO [id number] CAP [facility] [place] [place]. [id number] VAGINAL PATHOGENS DNA [id number] 21:19:07 Test Item Value Reference Range Interpretation Comments DEMIAN SPECIES (test code = 69755) NEGATIVE NEGATIVE G. VAGINALIS (test code = ) POSITIVE NEGATIVE A T. VAGINALIS (test code = ) NEGATIVE NEGATIVE [id number] 04:51:55 Test Item Value Reference Range Interpretation Comments RPR RESULT (test code = NON-REACTIVE NON-REACTIVE 3501) RPR TITER (test code = 3500) NOT INDIC. TITER NOT INDIC. HIV 1/2 4TH GEN, RFLX [id number] 04:00:28 Test Item Value Reference Range Interpretation Comments HIV 1/2 4TH GEN, RFLX CONF (test NON-REACTIVE NON-REACTIVE code = 3514) HEPATITIS PANEL, [id number] 04:00:28 Test Item Value Reference Range Interpretation Comments HEPATITIS A IgM (test NON-REACTIVE NON-REACTIVE code = 96985) HEPATITIS B CORE IgM NON-REACTIVE NON-REACTIVE (test code = 4644) HEPATITIS B SURF AG NON-REACTIVE NON-REACTIVE (test code = 2739) HEPATITIS C ANTIBODY NON-REACTIVE NON-REACTIVE (test code = 4675) INTERPRETATION (NOTE) Hepatitis A HEPATITIS A: (test serology shows no code = 2552) evidence of acu te hepatitis A. INTERPRETATION (NOTE) Hepatitis B HEPATITIS B: (test serology shows no code = 70239) evidence of ac napaimute hepatitis B and no indication of exposure to hepatitis B vir us in the previous si xto eight months. INTERPRETATION (NOTE) Hepatitis C HEPATITIS C: (test serology shows no code = 79608) evidence of ex posure to hepatitisC v irus at this time. I t can take up to 12 m onths after exposure tothe hepatitis C vir us for antibodies to become detectab le in the blood in ce rtain patients. UNLES S OTHERWISE INDIC ATED, ALL TESTING PERFORMED [facility], [facility]. [address] [place] [address] DIRECTOR: Karen MONTERROSOIA NUMBER [id number] [place]. [id number] VAGINAL PATHOGENS DNA PANEL [ADDED]2021-12-22 00:00:00 Test Item Value Reference Range Interpretation Comments DEMIAN SPECIES (test code = ) NEGATIVE G. VAGINALIS (test code = ) POSITIVE T. VAGINALIS (test code = ) NEGATIVE HIV 1/2 4TH GEN, RFLX CONF [ADDED]2021-12-22 00:00:00 Test Item Value Reference Range Interpretation Comments HIV 1/2 4TH GEN, RFLX CONF (test NON-REACTIVE code = 3514) RPR [ADDED]2021-12-22 00:00:00 Test Item Value Reference Range Interpretation Comments RPR RESULT (test code = NON-REACTIVE 3501) RPR TITER (test code = 3500) NOT INDIC. TITER RPR [ADDED]2021-12-22 00:00:00 Test Item Value Reference Range Interpretation Comments RPR RESULT (test code = NON-REACTIVE 3501) RPR TITER (test code = 3500) NOT INDIC. TITER HEPATITIS PANEL, ACUTE [ADDED]2021-12-22 00:00:00 Test Item Value Reference Range Interpretation Comments HEPATITIS A IgM (test code = NON-REACTIVE 61159) HEPATITIS B CORE IgM (test code NON-REACTIVE = 4644) HEPATITIS B SURF AG (test code = NON-REACTIVE 2739) HEPATITIS C ANTIBODY (test code NON-REACTIVE = 4675) INTERPRETATION HEPATITIS A: (NOTE) (test code = 2552) INTERPRETATION HEPATITIS B: (NOTE) (test code = 22406) INTERPRETATION HEPATITIS C: (NOTE) (test code = 58483) POCT [id number] 17:30:00 Test Item Value Reference Range Interpretation Comments POCT PREG (test code = 1605) NEGATIVE On board controls acceptable with PRESENT C Line (test code = 3574) POCT PREG LOT # (test code = 3575) [id number] POCT PREG TEST DATE (test 10/18/2022 code = 3576) Lab Interpretation (test code = Normal 57569-9) [id number] 03:23:00 Test Item Value Reference Range Interpretation Comments POCT PREG (test code = 1605) negative On board controls acceptable with present C Line (test code = 3574) POCT PREG LOT # (test code = 3575) [id number] POCT PREG TEST DATE (test 2022-10-18 code = 3576) Lab Interpretation (test code = Normal 25113-5) [facility] [place] WITH [id number] 20:17:20 Test Item Value Reference Range Interpretation [...] RDW-SD (test code = 43.7 fL 39.0-49.9 95303-3) RDW-CV (test code = 13.0 % 12.0-15.5 788-0) PLT (test code = See_Comment H [Automated 777-3) message] The sy stem which generated this result transmitted reference range : 166 - 358 10*3/ ?L. The reference r dinora was not used to interpret this result as normal/abnormal . MPV (test code = 9.6 fL 9.5-12.9 14540-6) NRBC/100 WBC (test See_Comment [Automat ed code = 3111552968) message] The system which generated this result transmitted reference range : 0.0 - 10.0 /100 WBCs. The refer ence range was not u sed to interpret th is result as normal/abnormal . NRBC x10^3 (test code <0.01 See_Comment [Auto mated = 9406318069) message] The s ystem which generated this result transmitted reference range : 10*3/?L. The reference range was not used to interpret this result as normal/abnormal . GRAN MAT (NEUT) % 53.3 % (test code = 770-8) IMM GRAN % (test code 0.50 % = 5015934733) LYMPH % (test code = 39.2 % 736-9) MONO % (test code = 5.3 % 5905-5) EOS % (test code = 1.1 % 713-8) BASO % (test code = 0.6 % 706-2) GRAN MAT x10^3(ANC) 6.66 10*3/uL 1.88-7.09 (test code = 3628870891) IMM GRAN x10^3 (test 0.06 10*3/uL 0.00-0.06 code = 5614804759) LYMPH x10^3 (test code 4.91 10*3/uL 1.32-3.29 H = 731-0) MONO x10^3 (test code 0.66 10*3/uL 0.33-0.92 = 742-7) EOS x10^3 (test code = 0.14 10*3/uL 0.03-0.39 711-2) BASO x10^3 (test code 0.08 10*3/uL 0.01-0.07 H = 704-7) REACT LYMPHS (test Rare code = 6305326395) Lab Interpretation Abnormal (test code = 26652-2) [facility]. METABOLIC PANEL ([id number])2021-09-15 19:38:55 Test Item Value Reference Range Interpretation Comments NA (test code = 137 mmol/L 135-145 6029620070) K (test code = 4.2 mmol/L 3.5-5.0 4979106135) CL (test code = 108 mmol/L 98-108 3131988214) CO2 TOTAL (test code = 22 mmol/L 23-31 L 5243967592) AGAP (test code = 2-16 1659153571) BUN (test code = 8 mg/dL 7-23 8635136458) GLUCOSE (test code = 91 mg/dL 70-110 0296271791) CREATININE (test code = 0.54 mg/dL 0.50-1.04 7122699792) TOTAL BILI (test code = 0.5 mg/dL 0.1-1.0 1701232728) CALCIUM (test code = 9.3 mg/dL 8.6-10.6 4539597880) T PROTEIN (test code = 8.1 g/dL 6.3-8.2 2531804926) ALBUMIN (test code = 4.8 g/dL 3.5-5.0 7937263260) ALK PHOS (test code = 93 U/L 34-122 2179662200) ALTv (test code = 18 U/L 5-35 1742-6) AST(SGOT) (test code = 26 U/L 13-40 5724005217) eGFR (test code = mL/min/1.73m2 3863789233) DIEGO (test code = DIEGO) Association of [...] tests). Lab Interpretation Abnormal (test code = 53545-5) [facility]19 Test Item Value Reference Range Interpretation Comments LIPASE (test code = 0298504545) 108 U/L 0-220 Lab Interpretation (test code = Normal 86774-7) [facility] [id number] 19:00:00 Test Item Value Reference Range Interpretation Comments POCT PREG (test code = 1605) negative On board controls acceptable with present C Line (test code = 3574) POCT PREG LOT # (test code = 3575) [id number] POCT PREG TEST DATE (test code = 357) Lab Interpretation (test code = Normal 45635-5) [facility]. METABOLIC PANEL (71783)2021-08-21 23:29:45 Test Item Value Reference Range Interpretation Comments NA (test code = 135 mmol/L 135-145 2122005904) K (test code = 4.2 mmol/L 3.5-5.0 9676249776) CL (test code = 103 mmol/L 98-108 4913575826) CO2 TOTAL (test code 24 mmol/L 23-31 = 8473568422) AGAP (test code = 2-16 4429288794) BUN (test code = 7 mg/dL 7-23 7763071574) GLUCOSE (test code = 102 mg/dL 70-110 5015776609) CREATININE (test code 0.52 mg/dL 0.50-1.04 = 1007103860) TOTAL BILI (test code 0.4 mg/dL 0.1-1.1 = 9282702905) CALCIUM (test code = 9.3 mg/dL 8.6-10.6 0785315240) T PROTEIN (test code 7.8 g/dL 6.3-8.2 = 2895376170) ALBUMIN (test code = 4.6 g/dL 3.5-5.0 2556745176) ALK PHOS (test code = 95 U/L 34-122 6806859231) ALTv (test code = 18 U/L 5-35 2-6) AST(SGOT) (test code 27 U/L 13-40 = 6003741770) eGFR (test code = mL/min/1.73m2 9279452680) DIEGO (test code = DIEGO) Association of [...] or urine or abnormalities in imaging tests). [facility] WITH [id number] 23:07:05 Test Item Value Reference Range Interpretation Comments WBC (test code = See_Comment H [Automated 1790-2) message] The sy stem which generated this result transmitted reference range : 4.30 - 11.10 10*3/?L. The reference range was not used to interpret this result as normal/abnormal . RBC (test code = See_Comment [Automated 622-8) message] The sy stem which generated this [...] RDW-SD (test code = 44.0 fL 39.0-49.9 11514-7) RDW-CV (test code = 12.8 % 12.0-15.5 788-0) PLT (test code = See_Comment H [Automated 777-3) message] The sy stem which generated this result transmitted reference range : 166 - 358 10*3/ ?L. The reference r dinora was not used to interpret this result as normal/abnormal . MPV (test code = 9.8 fL 9.5-12.9 76749-5) NRBC/100 WBC (test See_Comment [Automat ed code = 5428578995) message] The system which generated this result transmitted reference range : 0.0 - 10.0 /100 WBCs. The refer ence range was not u sed to interpret th is result as normal/abnormal . NRBC x10^3 (test code <0.01 See_Comment [Auto mated = 0052291065) message] The s ystem which generated this result transmitted reference range : 10*3/?L. The reference range was not used to interpret this result as normal/abnormal . GRAN MAT (NEUT) % 58.5 % (test code = 770-8) IMM GRAN % (test code 0.50 % = 3164172936) LYMPH % (test code = 33.9 % 736-9) MONO % (test code = 5.1 % 5905-5) EOS % (test code = 1.2 % 713-8) BASO % (test code = 0.8 % 706-2) GRAN MAT x10^3(ANC) 6.69 10*3/uL 1.88-7.09 (test code = 2267832729) IMM GRAN x10^3 (test 0.06 10*3/uL 0.00-0.06 code = 4822608666) LYMPH x10^3 (test code 3.88 10*3/uL 1.32-3.29 H = 731-0) MONO x10^3 (test code 0.58 10*3/uL 0.33-0.92 = 742-7) EOS x10^3 (test code = 0.14 10*3/uL 0.03-0.39 711-2) BASO x10^3 (test code 0.09 10*3/uL 0.01-0.07 H = 704-7) Lab Interpretation Abnormal (test code = 89653-9) [facility] [id number] 22:39:00 Test Item Value Reference Range Interpretation Comments POCT PREG (test code = 1605) negative On board controls acceptable with present C Line (test code = 3574) POCT PREG LOT # (test code = 3575) [id number] POCT PREG TEST DATE (test 10/18/2022 code = 3576) Lab Interpretation (test code = Normal 75184-1) [facility] 00:00:00 Test Item Value Reference Range Interpretation Comments TSH, THIRD GENERATION (test code 0.964 UIU/ML = 2821) [id number] 00:00:00 Test Item Value Reference Range Interpretation Comments TSH, THIRD GENERATION (test code 0.964 UIU/ML = 2821) [id number] 00:00:00 Test Item Value Reference Range Interpretation Comments PROLACTIN (test code = 2800) 13.5 NG/ML GC AND CHLAMYDIA, AMPLIFIED, [id number] 00:00:00 Test Item Value Reference Range Interpretation Comments GONORRHEA, NAAT (test code = 11767) NEGATIVE CHLAMYDIA, NAAT (test code = 95225) NEGATIVE HIV AB/AG COMBO RFLX [id number] 00:00:00 Test Item Value Reference Range Interpretation Comments HIV 1/2 4TH GEN, RFLX CONF (test NON-REACTIVE code = 3514) [id number] 00:00:00 Test Item Value Reference Range Interpretation Comments RPR RESULT (test code = NON-REACTIVE 3501) RPR TITER (test code = 3500) NOT INDIC. TITER [id number] 00:00:00 Test Item Value Reference Range Interpretation Comments RPR RESULT (test code = NON-REACTIVE 3501) RPR TITER (test code = 3500) NOT INDIC. TITER GC AND CHLAMYDIA AMPLIFIED, [id number] 00:00:00 Test Item Value Reference Range Interpretation Comments GONORRHEA, TMA (test code = 43406) NEGATIVE CHLAMYDIA, TMA (test code = 13483) NEGATIVE PAP TEST, THINPREP, [id number] 00:00:00 Test Item Value Reference Range Interpretation Comments SOURCE: (test code = Endocervical 8001) SLIDES: (test code = 1 8011) LMP: (test code = 04/21/2021 8021) SPECIMEN ADEQUACY: (NOTE) (test code = 52328) INTERPRETATION: (test NILM/NO EPITH. code = 92371) ABNORMALITY;SEE BELOW OTHER COMMENTS: (test (NOTE) code = 8081) NEONATAL SURGEON: BETTY (test code = 8101) COBY CRAIG(ASCP)IAC LOCATION: (test code (NOTE) = 10696) CPT: (test code = (NOTE) 8140) HPV HIGH RISK WITH GENOTYPE, [id number] 00:00:00 Test Item Value Reference Range Interpretation Comments HPV HIGH RISK INTERP (test code = NEGATIVE 72334) HPV 16 (test code = 50715) NEGATIVE HPV 18 (test code = 20641) NEGATIVE HPV, HR, OTHER GENOTYPES (test code NEGATIVE = 24574) VAGINAL PATHOGENS DNA [id number] 00:00:00 Test Item Value Reference Range Interpretation Comments DEMIAN SPECIES (test code = 11886) NEGATIVE G. VAGINALIS (test code = ) POSITIVE T. VAGINALIS (test code = 48261) NEGATIVE FREE [id number] 22:21:43 Test Item Value Reference Range Interpretation Comments FREE T4 (test code = See_Comment [Autom ated message] 6918989146) The system [email or web address] generated this result transmitted ref erence range: 0.78 - 2 .20 ng/dL:. The ref erence range was not u sed to interpret this result as normal/abnor mal. Lab Interpretation (test Normal code = 94572-8) [facility] [id number] 22:21:43 Test Item Value Reference Range Interpretation Comments FREE T4 (test code = See_Comment [Autom ated message] 5105129731) The system [email or web address] generated this result transmitted ref erence range: 0.78 - 2 .20 ng/dL:. The ref erence range was not u sed to interpret this result as normal/abnor mal. Lab Interpretation (test Normal code = 93665-1) [id number] 21:24[facility]56 Test Item Value Reference Interpretation Comments Range TROPONIN I (test <0.012 See_Comment [Automated code = 0387954500) message] The system which generated this result [...] biotin. Lab Interpretation Normal (test code = 35858-9) [facility] [id number] 21:24:56 Test Item Value Reference Interpretation Comments Range TROPONIN I (test <0.012 See_Comment [Automated code = 6578178732) message] The system which generated this result [...] biotin. Lab Interpretation Normal (test code = 89048-0) [facility] Test Item Value Reference Range Interpretation Comments MAGNESIUM (test code = 4904653156) 1.7 mg/dL 1.7-2.4 Lab Interpretation (test code = Normal 13037-0) [facility]2021-09-06 21:14:38 Test Item Value Reference Range Interpretation Comments MAGNESIUM (test code = 6625009250) 1.7 mg/dL 1.7-2.4 Lab Interpretation (test code = Normal 51602-3) [facility]. METABOLIC PANEL (87388)2021-04-26 21:14:18 Test Item Value Reference Range Interpretation Comments NA (test code = 139 mmol/L 135-145 7069032702) K (test code = 4.1 mmol/L 3.5-5.0 7359218254) CL (test code = 110 mmol/L 98-108 H 8843372758) CO2 TOTAL (test code = 25 mmol/L 23-31 6938279675) AGAP (test code = 2-16 9487325148) BUN (test code = 6 mg/dL 7-23 L 6388370521) GLUCOSE (test code = 96 mg/dL 70-110 7599004770) CREATININE (test code = 0.50 mg/dL 0.50-1.04 9426754639) TOTAL BILI (test code = 0.2 mg/dL 0.1-1.0 7691216023) CALCIUM (test code = 8.8 mg/dL 8.6-10.6 1667612137) T PROTEIN (test code = 6.9 g/dL 6.3-8.2 5233695310) ALBUMIN (test code = 4.0 g/dL 3.5-5.0 7365265798) ALK PHOS (test code = 73 U/L 34-122 5572861854) ALTv (test code = 15 U/L 5-35 1742-6) AST(SGOT) (test code = 20 U/L 13-40 6833597009) eGFR (test code = mL/min/1.73m2 0314571180) DIEGO (test code = DIEGO) Association of [...] tests). Lab Interpretation Abnormal (test code = 19008-9) [facility]. METABOLIC PANEL (99819)2021-04-26 21:14:18 Test Item Value Reference Range Interpretation Comments NA (test code = 139 mmol/L 135-145 7115968126) K (test code = 4.1 mmol/L 3.5-5.0 7425830420) CL (test code = 110 mmol/L 98-108 H 0486264112) CO2 TOTAL (test code = 25 mmol/L 23-31 1225351946) AGAP (test code = 2-16 6412723333) BUN (test code = 6 mg/dL 7-23 L 7466014359) GLUCOSE (test code = 96 mg/dL 70-110 1236842721) CREATININE (test code = 0.50 mg/dL 0.50-1.04 0751314302) TOTAL BILI (test code = 0.2 mg/dL 0.1-1.8 5624057561) CALCIUM (test code = 8.8 mg/dL 8.6-10.6 7023648354) T PROTEIN (test code = 6.9 g/dL 6.3-8.2 8489819777) ALBUMIN (test code = 4.0 g/dL 3.5-5.0 7410925724) ALK PHOS (test code = 73 U/L 34-122 6942357801) ALTv (test code = 15 U/L 5-35 1742-6) AST(SGOT) (test code = 20 U/L 13-40 2660729338) eGFR (test code = mL/min/1.73m2 6002252360) DIEGO (test code = DIEGO) Association of [...] tests). Lab Interpretation Abnormal (test code = 71408-7) [facility] [id number] 21:14:17 Test Item Value Reference Range Interpretation Comments CK (test code = 9054422672) 35 U/L 33-194 Lab Interpretation (test code = Normal 36523-5) [facility] [id number] 21:14:17 Test Item Value Reference Range Interpretation Comments CK (test code = 9744688905) 35 U/L 33-194 Lab Interpretation (test code = Normal 95903-8) [facility] (IMMUNOASSAY) - COMPREHENSIVE DRUG SCREEN W/O [id number] 20:20:42 Test Item Value Reference Range Interpretation Comments AMPHET (test code = Negative Negative 5771550423) NASEEM U (test code = Negative Negative 8186291762) BENZO U (test code = Negative Negative 7995691667) Cocaine Metabolite (test Negative Negative code = 9978371599) METHADONE (test code = Negative Negative 3264922599) OPIATES (test code = Negative Negative 1804769181) PCP (test code = Negative Negative 5233571356) THC (test code = Presumptive Positive Negative A 2651581513) DIEGO (test code = DIEGO) Urine Drug [...] testing). Lab Interpretation (test Abnormal code = 53243-0) [facility]UG (IMMUNOASSAY) - COMPREHENSIVE DRUG SCREEN W/O [id number] 20:20:42 Test Item Value Reference Range Interpretation Comments AMPHET (test code = Negative Negative 6315298390) NASEEM U (test code = Negative Negative 1710103972) BENZO U (test code = Negative Negative 1190810138) Cocaine Metabolite (test Negative Negative code = 3449160959) METHADONE (test code = Negative Negative 5793067152) OPIATES (test code = Negative Negative 5231087636) PCP (test code = Negative Negative 6417846266) THC (test code = Presumptive Positive Negative A 2418443393) DIEGO (test code = DIEGO) Urine Drug [...] testing). Lab Interpretation (test Abnormal code = 67337-2) [facility]2021-09-06 20:17:29 Test Item Value Reference Range Interpretation Comments ESR (test code = See_Comment [Automated message] 8273829874) The system [email or web address] generated this result transmitted ref erence range: 0 - 20 m m/HR. The reference r dinora was not used to interpret this result as normal/abnor mal. Lab Interpretation (test Normal code = 57693-3) [facility]2021-09-06 20:17:29 Test Item Value Reference Range Interpretation Comments ESR (test code = See_Comment [Automated message] 0126277586) The system [email or web address] generated this result transmitted ref erence range: 0 - 20 m m/HR. The reference r dinora was not used to interpret this result as normal/abnor mal. Lab Interpretation (test Normal code = 38995-5) [facility] STIMULATING [id number] 20:14:11 Test Item Value Reference Range Interpretation Comments TSH (test code = See_Comment [Automated message] 5495653058) The system [email or web address] generated this result transmitted ref erence range: 0.45 - 4 .70 mIU/L. The refe rence range was not u sed to interpret this result as normal/abnor mal. Lab Interpretation (test Normal code = 03797-5) [facility] STIMULATING [id number] 20:14:11 Test Item Value Reference Range Interpretation Comments TSH (test code = See_Comment [Automated message] 1580489706) The system [email or web address] generated this result transmitted ref erence range: 0.45 - 4 .70 mIU/L. The refe rence range was not u sed to interpret this result as normal/abnor mal. Lab Interpretation (test Normal code = 05568-3) [id number] 20:03:34 Test Item Value Reference Range Interpretation Comments NT-proBNP (test code 42 pg/mL See_Comment [Autom ated = 8828504190) message] The system which generated this result transmitted reference range : <=125. The reference range was not used to interpret this result as normal/abnormal . DIEGO (test code = DIEGO) Biotin has been reported to cause a negative bias, interpret results relative to patient's use of biotin. Lab Interpretation Normal (test code = 69208-1) [facility] [id number] 20:03:34 Test Item Value Reference Range Interpretation Comments NT-proBNP (test code 42 pg/mL See_Comment [Autom ated = 3576519161) message] The system which generated this result transmitted reference range : <=125. The reference range was not used to interpret this result as normal/abnormal . DIEGO (test code = DIEGO) Biotin has been reported to cause a negative bias, interpret results relative to patient's use of biotin. Lab Interpretation Normal (test code = 77226-7) [facility] WITH [id number] 19:45:17 Test Item Value Reference Range Interpretation Comments WBC (test code = See_Comment H [Automated 1190-2) message] The sy stem which generated this result transmitted reference range : 4.30 - 11.10 10*3/?L. The reference range was not used to interpret this result as normal/abnormal . RBC (test code = See_Comment [Automated 809-8) message] The sy stem which generated this [...] RDW-SD (test code = 43.4 fL 39.0-49.9 29973-6) RDW-CV (test code = 12.5 % 12.0-15.5 788-0) PLT (test code = See_Comment H [Automated 777-3) message] The sy stem which generated this result transmitted reference range : 166 - 358 10*3/ ?L. The reference r dinora was not used to interpret this result as normal/abnormal . MPV (test code = 10.1 fL 9.5-12.9 66945-7) NRBC/100 WBC (test See_Comment [Automat ed code = 1811041039) message] The system which generated this result transmitted reference range : 0.0 - 10.0 /100 WBCs. The refer ence range was not u sed to interpret th is result as normal/abnormal . NRBC x10^3 (test code <0.01 See_Comment [Auto mated = 5102240150) message] The s ystem which generated this result transmitted reference range : 10*3/?L. The reference range was not used to interpret this result as normal/abnormal . GRAN MAT (NEUT) % 60.0 % (test code = 770-8) IMM GRAN % (test code 0.80 % = 8131553781) LYMPH % (test code = 31.1 % 736-9) MONO % (test code = 5.5 % 5905-5) EOS % (test code = 2.0 % 713-8) BASO % (test code = 0.6 % 706-2) GRAN MAT x10^3(ANC) 7.94 10*3/uL 1.88-7.09 H (test code = 9016682528) IMM GRAN x10^3 (test 0.11 10*3/uL 0.00-0.06 H code = 0272103767) LYMPH x10^3 (test code 4.13 10*3/uL 1.32-3.29 H = 731-0) MONO x10^3 (test code 0.73 10*3/uL 0.33-0.92 = 742-7) EOS x10^3 (test code = 0.27 10*3/uL 0.03-0.39 711-2) BASO x10^3 (test code 0.08 10*3/uL 0.01-0.07 H = 704-7) Lab Interpretation Abnormal (test code = 40730-8) [facility] WITH [id number] 19:45:17 Test Item Value Reference Range Interpretation [...] RDW-SD (test code = 43.4 fL 39.0-49.9 38882-5) RDW-CV (test code = 12.5 % 12.0-15.5 788-0) PLT (test code = See_Comment H [Automated 777-3) message] The sy stem which generated this result transmitted reference range : 166 - 358 10*3/ ?L. The reference r dinora was not used to interpret this result as normal/abnormal . MPV (test code = 10.1 fL 9.5-12.9 80097-6) NRBC/100 WBC (test See_Comment [Automat ed code = 3107313177) message] The system which generated this result transmitted reference range : 0.0 - 10.0 /100 WBCs. The refer ence range was not u sed to interpret th is result as normal/abnormal . NRBC x10^3 (test code <0.01 See_Comment [Auto mated = 2645811137) message] The s [employer] which generated this result transmitted reference range : 10*3/?L. The reference range was not used to interpret this result as normal/abnormal . GRAN MAT (NEUT) % 60.0 % (test code = 770-8) IMM GRAN % (test code 0.80 % = 8430572452) LYMPH % (test code = 31.1 % 736-9) MONO % (test code = 5.5 % 5905-5) EOS % (test code = 2.0 % 713-8) BASO % (test code = 0.6 % 706-2) GRAN MAT x10^3(ANC) 7.94 10*3/uL 1.88-7.09 H (test code = 2096949377) IMM GRAN x10^3 (test 0.11 10*3/uL 0.00-0.06 H code = 1979207571) LYMPH x10^3 (test code 4.13 10*3/uL 1.32-3.29 H = 731-0) MONO x10^3 (test code 0.73 10*3/uL 0.33-0.92 = 742-7) EOS x10^3 (test code = 0.27 10*3/uL 0.03-0.39 711-2) BASO x10^3 (test code 0.08 10*3/uL 0.01-0.07 H = 704-7) Lab Interpretation Abnormal (test code = 14809-0) [facility] (ID NOW RAPID TESTING)2021-04-26 19:33:11 Test Item Value Reference Range Interpretation Comments SARS-CoV-2 Rapid ID NOW Not Detected Not Detected (test code = 52620-2) DIEGO (test code = DIEGO) ID NOW COVID-19 Assay is an isothermal nucleic acid amplification test intended for the qualitative detection of nucleic acid from SARS-CoV-2 viral RNA in nasopharyngeal (DEVELOPER EVANGELIST) specimens. It is used under Emergency Use [...] indicated. Lab Interpretation Normal (test code = 03745-6) [facility] (ID NOW RAPID TESTING)2021-04-26 19:33:11 Test Item Value Reference Range Interpretation Comments SARS-CoV-2 Rapid ID NOW Not Detected Not Detected (test code = 07559-4) DIEGO (test code = DIEGO) ID NOW COVID-19 Assay is an isothermal nucleic acid amplification test intended for the qualitative detection of nucleic acid from SARS-CoV-2 viral RNA in nasopharyngeal (DEVELOPER EVANGELIST) specimens. It is used under Emergency Use [...] indicated. Lab Interpretation Normal (test code = 14855-8) [facility] WO [id number] 19:30:19 1. ?No acute intracranial abnormality. ? [...] or traumatic dislocation is visualized. Straightening ofnormal cervicallordosis is seen. The vertebral bodies are normal in heightand in normal alignment. The intervertebral disc spaces are preserved. [facility], Radiant Results Inft User - 04/26/2021 2:31 PM CDT EXAM: CT HEAD WO CONTRAST,EXAM: CT CERVICAL SPINE WO CONTRASTHISTORY: 36 years-old Female; Head trauma, mod-severe . ".I got up to makea peanut butter and jelly sandwich and I woke up on the floor. ?I thenthrew up all over the floor and had diarrhea"TECHNIQUE: Axial CT of the head and cervical spine was performed andreconstructed at 5 mm intervals. Coronaland sagittal reformatted imageswere generated.COMPARISON: CT head dated 05/20/2017.FINDINGS:Head:The ventricles and cerebral sulci are normal in caliber and configuration.No hydrocephalus, midline shiftor pathological extra-axial fluidcollection is present. The basal cisterns are unremarkable.No acuteintracranial hemorrhage or significant mass effect is visualized.No [...] agree with the abovereport.[facility] CERVICAL SPINE WO [id number] 19:30:19 1. ?No acute intracranial abnormality. ? [...] or traumatic dislocation is visualized. Straightening ofnormal cervicallordosis is seen. The vertebral bodies are normal in heightand in normal alignment. The intervertebral disc spaces are preserved. [facility], Radiant Results Inft User - 04/26/2021 2:31 PM CDT EXAM: CT HEAD WO CONTRAST,EXAM: CT CERVICAL SPINE WO CONTRASTHISTORY: 36 years-old Female; Head trauma, mod-severe . ".I got up to makea peanut butter and jelly sandwich and I woke up on the floor. ?I thenthrew up all over the floor and had diarrhea"TECHNIQUE: Axial CT of the head and cervical spine was performed andreconstructed at 5 mm intervals. Coronaland sagittal reformatted imageswere generated.COMPARISON: CT head dated 05/20/2017.FINDINGS:Head:The ventricles and cerebral sulci are normal in caliber and configuration.No hydrocephalus, midline shiftor pathological extra-axial fluidcollection is present. The basal cisterns are unremarkable.No acute intracranial hemorrhage or significant mass effect is visualized.No parenchymal attenuation abnormality is seen. The wright-white matterdifferentiation is preserved. The mastoid air cells and paranasal air sinuses are clear. The calvariumand central skull base are unremarkable. An occipital spur is seen. Cervical Spine:No acute fracture or traumatic dislocation is visualized. Straightening ofnormal cervical lordosis is seen. The vertebral bodies are normal in heightand in normal alignment. The intervertebral disc spaces are preserved.IMPRESSION1. No acute intracranial abnormality. 2. No acute osseous a bnormality of the cervical spine. Preliminary Report Dictated by Resident: Makenna Chambers MD., have reviewed this study and agree with the abovereport.[facility] [id number] 19:30:19 1. ?No acute intracranial abnormality. ? [...] or traumatic dislocation is visualized. Straightening ofnormal cervicallordosis is seen. The vertebral bodies are normal in heightand in normal alignment. The intervertebral disc spaces are preserved. [facility], Radiant Results Inft User - 04/26/2021 2:31 PM CDT EXAM: CT HEAD WO CONTRAST,EXAM: CT CERVICAL SPINE WO CONTRASTHISTORY: 36 years-old Female; Head trauma, mod-severe . ".I got up to makea peanut butter and jelly sandwich and I woke up on the floor. ?I thenthrew up all over the floor and had diarrhea"TECHNIQUE: Axial CT of the head and cervical spine was performed andreconstructed at 5 mm intervals. Coronaland sagittal reformatted imageswere generated.COMPARISON: CT head dated 05/20/2017.FINDINGS:Head:The ventricles and cerebral sulci are normal in caliber and configuration.No hydrocephalus, midline shiftor pathological extra-axial fluidcollection is present. The basal cisterns are unremarkable.No acute intracranial hemorrhage or significant mass effect is visualized.No parenchymal attenuation abnormality is seen. The wright-white matterdifferentiation is preserved. The mastoid air cells and paranasal air sinuses are clear. The calvariumand central skull base are unremarkable. An occipital spur is seen. Cervical Spine:No acute fracture or traumatic dislocation is visualized. Straightening ofnormal cervical lordosis is seen. The vertebral bodies are normal in heightand in normal alignment. The intervertebral disc spaces are preserved.IMPRESSION1. No acute intracranial abnormality. 2. No acute osseous a bnormality of the cervical spine. Preliminary Report Dictated by Resident: Makenna Chambers MD., have reviewed this study and agree with the abovereport.[facility]AST 2021-04-26 19:30:19 1. ?No acute [...] or traumatic dislocation is visualized. Straightening ofnormal cervicallordosis is seen. The vertebral bodies are normal in heightand in normal alignment. The intervertebral disc spaces are preserved. [facility], Radiant Results Inft User - 04/26/2021 2:31 PM CDT EXAM: CT HEAD WO CONTRAST,EXAM: CT CERVICAL SPINE WO CONTRASTHISTORY: 36 years-old Female; Head trauma, mod-severe . ".I got up to makea peanut butter and jelly sandwich and I woke up on the floor. ?I thenthrew up all over the floor and had diarrhea"TECHNIQUE: Axial CT of the head and cervical spine was performed andreconstructed at 5 mm intervals. Coronaland sagittal reformatted imageswere generated.COMPARISON: CT head dated 05/20/2017.FINDINGS:Head:The ventricles and cerebral sulci are normal in caliber and configuration.No hydrocephalus, midline shiftor pathological extra-axial fluidcollection is present. The basal cisterns are unremarkable.No acute intracranial hemorrhage or significant mass effect is visualized.No parenchymal attenuation abnormality is seen. The wright-white matterdifferentiation is preserved. The mastoid air cells and paranasal air sinuses are clear. The calvariumand central skull base are unremarkable. An occipital spur is seen. Cervical Spine:No acute fracture or traumatic dislocation is visualized. Straightening ofnormal cervical lordosis is seen. The vertebral bodies are normal in heightand in normal alignment. The intervertebral disc spaces are preserved.IMPRESSION1. No acute intracranial abnormality. 2. No acute osseous a bnormality of the cervical spine. Preliminary Report Dictated by Resident: Makenna Chambers MD., have reviewed this study and agree with the abovereport.[facility] Test Item Value Reference Range Interpretation Comments APPEARANCE (test code = Clear Clear 5249585950) COLOR (test code = Yellow Yellow 7161566852) PH (test code = 4.8-8.0 6139832123) SP GRAVITY (test code = 1.003-1.030 4475694102) GLU U QUAL (test code = Normal Normal 8054348957) BLOOD (test code = Negative Negative 7453395082) KETONES (test code = Negative Negative 4125414717) PROTEIN (test code = Negative Negative 2887-8) UROBILIN (test code = Normal Normal 3184639178) BILIRUBIN (test code = Negative Negative 5068938909) NITRITE (test code = Negative Negative 6786118020) LEUK DAKSHA (test code = Negative Negative 4017884309) RBC/HPF (test code = See_Comment [Autom ated message] 8864405875) The system [email or web address] generated this result transmitted ref erence range: 0 - 3 HP F. The reference range was not used to int erpret this result as normal/abnormal . WBC/HPF (test code = See_Comment [Autom ated message] 8320273657) The system [email or web address] generated this result transmitted ref erence range: 0 - 5 HP F. The reference range was not used to int erpret this result as normal/abnormal . BACTERIA (test code = Few Negative A 5980977901) SQ EPITH (test code = HPF 1333946200) Lab Interpretation (test Abnormal code = 67284-7) [facility] 19:29:14 Test Item Value Reference Range Interpretation Comments APPEARANCE (test code = Clear Clear 7181594112) COLOR (test code = Yellow Yellow 1812354059) PH (test code = 4.8-8.0 0036682350) SP GRAVITY (test code = 1.003-1.030 4978893205) GLU U QUAL (test code = Normal Normal 1995172712) BLOOD (test code = Negative Negative 1357680950) KETONES (test code = Negative Negative 5617862300) PROTEIN (test code = Negative Negative 2887-8) UROBILIN (test code = Normal Normal 6156285467) BILIRUBIN (test code = Negative Negative 6378674246) NITRITE (test code = Negative Negative 8829440280) LEUK DAKSHA (test code = Negative Negative 9045914366) RBC/HPF (test code = See_Comment [Autom ated message] 4087250403) The system [email or web address] generated this result transmitted ref erence range: 0 - 3 HP F. The reference range was not used to int erpret this result as normal/abnormal . WBC/HPF (test code = See_Comment [Autom ated message] 2931069072) The system [email or web address] generated this result transmitted ref erence range: 0 - 5 HP F. The reference range was not used to int erpret this result as normal/abnormal . BACTERIA (test code = Few Negative A 6552455122) SQ EPITH (test code = HPF 6950048007) Lab Interpretation (test Abnormal code = 18201-7) [facility] [id number] 18:24:00 Test Item Value Reference Range Interpretation Comments POCT PREG (test code = 1605) negative On board controls acceptable with present C Line (test code = 3574) POCT PREG LOT # (test code = 3575) [id number] POCT PREG TEST DATE (test 08/20/2022 code = 3576) Lab Interpretation (test code = Normal 45115-5) [facility] [id number] 18:24:00 Test Item Value Reference Range Interpretation Comments POCT PREG (test code = 1605) negative On board controls acceptable with present C Line (test code = 3574) POCT PREG LOT # (test code = 3575) [id number] POCT PREG TEST DATE (test 08/20/2022 code = 3576) Lab Interpretation (test code = Normal 18754-0) [facility]21-[facility]-23 00:35:10 Test Item Value Reference Range Interpretation Comments APPEARANCE (test code = Clear Clear 7317360671) COLOR (test code = Yellow Yellow 8390540025) PH (test code = 4.8-8.0 6779727684) SP GRAVITY (test code = 1.003-1.030 3083127321) GLU U QUAL (test code = Normal Normal 4116446938) BLOOD (test code = 1+ Negative A 6398269354) KETONES (test code = Negative Negative 0267626330) PROTEIN (test code = Negative Negative 2887-8) UROBILIN (test code = Normal Normal 6241528990) BILIRUBIN (test code = Negative Negative 5390901813) NITRITE (test code = Negative Negative 2563082624) LEUK DAKSHA (test code = 75/uL Negative A 3344937309) RBC/HPF (test code = See_Comment H [Autom ated message] 1913608183) The system [email or web address] generated this result transmitted ref erence range: 0 - 3 HP F. The reference range was not used to int erpret this result as normal/abnormal . WBC/HPF (test code = See_Comment H [Autom ated message] 0992875065) The system [email or web address] generated this result transmitted ref erence range: 0 - 5 HP F. The reference range was not used to int erpret this result as normal/abnormal . BACTERIA (test code = Few Negative A 0697466372) SQ EPITH (test code = HPF 3229423466) Lab Interpretation (test Abnormal code = 65760-2) [facility] [id number] 00:20:00 Test Item Value Reference Range Interpretation Comments POCT PREG (test code = 1605) negative On board controls acceptable with present C Line (test code = 3574) POCT PREG LOT # (test code = 3575) [id number] POCT PREG TEST DATE (test code = 3576) Lab Interpretation (test code = Normal 48779-9) [facility] [id number] 00:00:00 Test Item Value Reference Range Interpretation Comments HEMOGLOBIN A1c (test code = 91202) 5.3 % HEMOGLOBIN [id number] 00:00:00 Test Item Value Reference Range Interpretation Comments HEMOGLOBIN A1c (test code = 61828) 5.3 % LIPID [id number] 00:00:00 Test Item Value Reference Range Interpretation Comments CHOLESTEROL (test code = 2210) 205 MG/DL TRIGLYCERIDES (test code = 2232) 66 MG/DL HDL CHOLESTEROL (test code = 2220) 46 MG/DL CALC LDL CHOL (test code = 2237) 143 MG/DL RISK RATIO LDL/HDL (test code = 3.11 RATIO 2238) COMPREHENSIVE METABOLIC [id number] 00:00:00 Test Item Value Reference Range Interpretation Comments GLUCOSE (test code = 2217) 83 MG/DL BUN (test code = 2208) 6 MG/DL CREATININE (test code = 2214) 0.69 MG/DL eGFR AMER. (test code 131 ML/MIN/1.73 = 41475) eGFR NON- AMER. (test 113 ML/MIN/1.73 code = 26269) CALC BUN/CREAT (test code = 9 RATIO 2235) SODIUM (test code = 2231) 137 MEQ/L POTASSIUM (test code = 2228) 4.5 MEQ/L CHLORIDE (test code = 2215) 104 MEQ/L CARBON DIOXIDE (test code = 24 MEQ/L 2205) CALCIUM (test code = 2209) 9.9 MG/DL PROTEIN, TOTAL (test code = 7.2 G/DL 2228) ALBUMIN (test code = 2201) 4.8 G/DL CALC GLOBULIN (test code = 2.4 G/DL 2240) CALC A/G RATIO (test code = 2.0 RATIO 4) BILIRUBIN, TOTAL (test code = 0.2 MG/DL 2206) ALKALINE PHOSPHATASE (test 75 U/L code = 2204) AST (test code = 2218) 19 U/L ALT (test code = 2219) 18 U/L CULTURE, [id number] 00:00:00 Test Item Value Reference Range Interpretation Comments CULTURE, ROUTINE (test SPECIMEN NUMBER: code = 44627) [id number] CULTURE, [id number] 00:00:00 Test Item Value Reference Range Interpretation Comments CULTURE, ROUTINE (test SPECIMEN NUMBER: code = 81423) [id number] RAPID STREP SCREEN FOR GROUP [id number] 17:29:00 Test Item Value Reference Range Interpretation Comments Streptococcus pyogenes (group A) Negative Negative antigen (test code = 65765-6) Lab Interpretation (test code = Normal 87029-9) [facility] METABOLIC PANEL (19900)2020-04-29 17:27:00 Test Item Value Reference Range Interpretation Comments NA (test code = 137 mmol/L 135-145 9880739989) K (test code = 4.7 mmol/L 3.5-5 9450803993) CL (test code = 103 mmol/L 98-108 2863044960) CO2 TOTAL (test code = 23 mmol/L 23-31 0627244824) AGAP (test code = 2-16 4088381996) BUN (test code = 5 mg/dL 7-23 L 8154567071) GLUCOSE (test code = 93 mg/dL 70-110 5890443314) CREATININE (test code = 0.61 mg/dL 0.5-1.04 9078078632) TOTAL BILI (test code = 0.3 mg/dL 0.1-1.1 2299114976) CALCIUM (test code = 9.9 mg/dL 8.6-10.6 4698343319) T PROTEIN (test code = 7.5 g/dL 6.3-8.2 4594447731) ALBUMIN (test code = 4.3 g/dL 3.5-5 8665724564) ALK PHOS (test code = 82 U/L 34-122 8735399293) ALTv (test code = 23 U/L 5-35 1742-6) AST(SGOT) (test code = 36 U/L 13-40 4204951381) eGFR Calculation mL/min/1.73m2 (Non-) (test code = 0424934952) eGFR Calculation mL/min/1.73m2 () (test code = 0548413313) DIEGO (test code = DIEGO) Association of [...] tests). Lab Interpretation Abnormal (test code = 99764-7) [facility] 3 VW [id number] 17:09:41 No radiographic evidence of osteomyelitis. 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 There is anirregularly-shaped radiopacity inthe left proximal tibial metaphysis whichalso seen in prior CT left leg from 10/17/2018 suggesting for radiopaqueantibiotic/cement spacer. There is soft tissue swelling near fibular neckwithout any evidence of adjacent bony erosion. Surgical clips at theamputation site visualized. [facility], Radiant ResultsInft User - 04/29/2020 12:10 PM CDTXR KNEE 3 VW LEFTHISTORY: 35 years-old Female; left BKA, wound onstump, rule outosteomyelitisCOMPARISON: NoneFINDINGS:Radiographs of the left knee below knee amputation. There is anirregularly-shaped radiopacity in the left proximal tibial metaphysis whichalso seen in prior CT left leg from 10/17/2018 suggesting for radiopaqueantibiotic/cement spacer. There is soft t issue swelling near fibular neckwithout any evidence of adjacent bony erosion. Surgical clips at theamputation site visualized.IMPRESSIONNo radiographic evidence of osteomyelitis. Preliminary Report Dictated by Resident: Yousuf Pratt MD., have reviewed this study and agree with darlene lopez report.[facility] WITH [id number] 17:07:00 Test Item Value Reference Range Interpretation [...] RDW-SD (test code = 44.5 fL 39-49.9 07020-8) RDW-CV (test code = 13.1 % 12-15.5 788-0) PLT (test code = See_Comment H [Automated 777-3) message] The sy stem which generated this result transmitted reference range : 166 - 358 10*3/ ?L. The reference r dinora was not used to interpret this result as normal/abnormal . MPV (test code = 9.6 fL 9.5-12.9 48511-5) NRBC/100 WBC (test See_Comment [Automat ed code = 4384742754) message] The system which generated this result transmitted reference range : 0.0 - 10.0 /100 WBCs. The refer ence range was not u sed to interpret th is result as normal/abnormal . NRBC x10^3 (test code <0.01 See_Comment [Auto mated = 6589592364) message] The s ystem which generated this result transmitted reference range : 10*3/?L. The reference range was not used to interpret this result as normal/abnormal . GRAN MAT (NEUT) % 59.4 % (test code = 770-8) IMM GRAN % (test code 0.70 % = 0397010274) LYMPH % (test code = 31.3 % 736-9) MONO % (test code = 5.8 % 5905-5) EOS % (test code = 2.0 % 713-8) BASO % (test code = 0.8 % 706-2) GRAN MAT x10^3(ANC) 7.54 10*3/uL 1.88-7.09 H (test code = 0712631033) IMM GRAN x10^3 (test 0.09 10*3/uL 0-0.06 H code = 1294759723) LYMPH x10^3 (test code 3.98 10*3/uL 1.32-3.29 H = 731-0) MONO x10^3 (test code 0.74 10*3/uL 0.33-0.92 = 742-7) EOS x10^3 (test code = 0.25 10*3/uL 0.03-0.39 711-2) BASO x10^3 (test code 0.10 10*3/uL 0.01-0.07 H = 704-7) Lab Interpretation Abnormal (test code = 59968-8) [facility] [id number] 16:24:00 Test Item Value Reference Range Interpretation Comments POCT PREG (test code = 1605) negative POCT PREG LOT # (test code = 3575) [id number] POCT PREG TEST DATE (test 03/20/2021 code = 3576) Lab Interpretation (test code = Normal 56640-2) [facility], [id number] 00:00:00 Test Item Value Reference Range Interpretation Comments CULTURE, ROUTINE (test SPECIMEN NUMBER: code = 77644) [id number] CULTURE, [id number] 00:00:00 Test Item Value Reference Range Interpretation Comments CULTURE, ROUTINE (test SPECIMEN NUMBER: code = 77020) [id number] TRICHOMONAS, URINE, [id number] 00:00:00 Test Item Value Reference Range Interpretation Comments TRICHOMONAS, URINE, AMP (test code = NEGATIVE 06525) HIV AB/AG COMBO RFLX [id number] 00:00:00 Test Item Value Reference Range Interpretation Comments HIV 1/2 4TH GEN, RFLX CONF (test NON-REACTIVE code = 3514) TRICHOMONAS, URINE, [id number] 00:00:00 Test Item Value Reference Range Interpretation Comments TRICHOMONAS, URINE, AMP (test code = POSITIVE 81116) ACUTE HEPATITIS [id number] 00:00:00 Test Item Value Reference Range Interpretation Comments HEPATITIS A IgM (test code = NON-REACTIVE 69298) HEPATITIS B CORE IgM (test code NON-REACTIVE = 4644) HEPATITIS B SURF AG (test code = NON-REACTIVE 2739) HEPATITIS C ANTIBODY (test code NON-REACTIVE = 4675) INTERPRETATION HEPATITIS A: (NOTE) (test code = 2552) INTERPRETATION HEPATITIS B: (NOTE) (test code = 11171) INTERPRETATION HEPATITIS C: (NOTE) (test code = 95583) [id number] 00:00:00 Test Item Value Reference Range Interpretation Comments RPR RESULT (test code = NON-REACTIVE 3501) RPR TITER (test code = 3500) NOT INDIC. TITER [id number] 00:00:00 Test Item Value Reference Range Interpretation Comments RPR RESULT (test code = NON-REACTIVE 3501) RPR TITER (test code = 3500) NOT INDIC. TITER GC AND CHLAMYDIA AMPLIFIED, [id number] 00:00:00 Test Item Value Reference Range Interpretation Comments GONORRHEA, TMA (test code = 45356) POSITIVE CHLAMYDIA, TMA (test code = 22550) NEGATIVE PAP TEST, THINPREP, [id number] 00:00:00 Test Item Value Reference Range Interpretation Comments SOURCE: (test code = Cervical/Endocervical 8001) SLIDES: (test code = 1 8011) LMP: (test code = 8021) 07/23/2019 SPECIMEN ADEQUACY: (test (NOTE) code = 25495) INTERPRETATION: (test NILM/NO EPITH. code = 75049) ABNORMALITY;SEE BELOW OTHER COMMENTS: (test (NOTE) code = 8081) NEONATAL SURGEON: (test Eli code = 8101) COBY Reese(ASCP)IAC QC TECHNOLOGIST: (test PARK Virgen ANTIONECT(ASCP) code = 8111) LOCATION: (test code = (NOTE) 68302) CPT: (test code = 8140) (NOTE) VAGINAL PATHOGENS DNA [id number] 00:00:00 Test Item Value Reference Range Interpretation Comments DEMIAN SPECIES (test code = ) NEGATIVE G. VAGINALIS (test code = ) POSITIVE T. VAGINALIS (test code = ) POSITIVE HPV HIGH RISK WITH GENOTYPE, [id number] 00:00:00 Test Item Value Reference Range Interpretation Comments HPV HIGH RISK INTERP (test code = POSITIVE 88121) HPV 16 (test code = 87187) NEGATIVE HPV 18 (test code = 15027) NEGATIVE HPV, HR, OTHER GENOTYPES (test code POSITIVE = 73861) POCT [id number] 04:24:00 Test Item Value Reference Range Interpretation Comments POCT PREG (test code = 1605) negative On board controls acceptable with yes C Line (test code = 3574) POCT PREG LOT # (test code = 3575) [id number] POCT PREG TEST DATE (test 08/20/2020 code = 3576) Lab Interpretation (test code = Normal 60217-7) [facility] [id number] 13:26:00 Test Item Value Reference Range Interpretation Comments HEMOGLOBIN A1C (BEAKER) (test code = 5.2 % 4.3-6.1 368) CBC W/PLT COUNT & AUTO [id number] 09:42:00 Test Item Value Reference Range Interpretation [...] MORPHOLOGY (BEAKER) (test code Normal = 762) [id number] 07:11:00 Test Item Value Reference Range Interpretation Comments MAGNESIUM (BEAKER) (test code = 1.5 mg/dL 1.6-2.6 L 627) BASIC METABOLIC [id number] 07:11:00 Test Item Value Reference Range Interpretation [...] NOT APPLICABLE FOR DIALYSIS PATIEN TS. LIPID [id number] 07:11:00 Test Item Value Reference Range Interpretation Comments TRIGLYCERIDES (BEAKER) (test code = 75 mg/dL 540) CHOLESTEROL (BEAKER) (test code = 173 mg/dL 631) HDL CHOLESTEROL (BEAKER) (test code 33 mg/dL = 976) LDL CHOLESTEROL CALCULATED (BEAKER) 125 mg/dL (test code = 633) Triglyceride Reference Range: Low Risk <150 Borderline 150-199 High Risk 200- 499 Very High Risk >=500Cholesterol Reference Range: Low Risk <200 Borderline 200-239 High Risk >240HDL Cholesterol Reference Range: Low Risk >=60 High Risk <40LDL Cholesterol Reference Range: Optimal <100 Near Optimal 100-129 Borderline 130-159 High 160-189 Very High >=190TROPONIN I 2017-07-16 06:34:00 Test Item Value Reference Range Interpretation [...] acidosis, acute neurological disease, and persistent tachyarrhythmia.TROPONIN [id number] 23:58:00 Test Item Value Reference Range Interpretation [...]
[2022-03-30 09:09] LABS: Urine Blood Trace-intact (Negative); Urine Glucose Negative (Negative); Urine Protein Negative (Negative); Urine pH 6.5 (5.0-7.0)
[2022-03-30] MEDS ORDERED: KETOROLAC 30 MG/ML INJ ONE (09:33)
[2022-03-30] MEDS ORDERED: NA CHLORIDE 0.9% 1,000 ML ONE (09:33)
[2022-03-30 09:36] LABS: Absolute Lymphocytes (CBC) 2.5 K/uL (0.7-4.9); Hematocrit 35.8 % (36.0-45.0); MCV 89.1 fL (80-100); MPV 7.4 fL (7.6-11.3); RBC Red Blood Cell Count 4.02 M/uL (3.86-4.86)
[2022-03-30 09:43] LABS: Urine Bacteria <20 /HPF (<20); Urine RBC <5 /HPF (None Seen)
[2022-03-30 09:52] LABS: ALT/SGPT 19 U/L (12-78); Albumin 3.4 g/dL (3.4-5.0); Alkaline Phosphatase 74 U/L (45-117); BUN Blood Urea Nitrogen 8 mg/dL (7-18); Bicarbonate 25 mmol/L (21-32); Bilirubin Total 0.3 mg/dL (0.2-1.0); Glomerular Filtration Rate 124 ml/min (=/>90); Glucose Level 86 mg/dL (74-106); Lipase 129 U/L (73-393); NT PRO-BNP 20 pg/mL (<125); Protein, Total 8.1 g/dL (6.4-8.2); Sodium Level 135 mmol/L (136-145)
[2022-03-30 09:53] LABS: AST/SGOT 20 U/L (15-37); Bilirubin Direct < 0.1 mg/dL (0-0.2); Potassium 4.4 mmol/L (3.5-5.1); Troponin High Sensitivity < 3.0 pg/mL (<58.9)
[2022-03-30 09:55] LABS: Protime INR 1.04
--- NOTE | 2022-03-30 09:57 | RAD REPORT ---
EXAM DESCRIPTION: RAD - Chest Single View - 03/30/2022 9:40 am CLINICAL HISTORY: PAIN COMPARISON: Chest Single View dated 07/31/2021; Chest Single View dated 12/21/2020; Chest Single View dated 09/02/2019; Chest Pa And Lat (2 Views) dated 08/04/2019 FINDINGS: Lines: None. Lungs: No evidence of edema or pneumonia. Pleural: No significant pleural effusions or pneumothorax. Cardiac: The heart size is within normal limits. Bones: No acute fractures. Other: IMPRESSION: No acute cardiopulmonary disease.
--- NOTE | 2022-03-30 10:51 | RAD REPORT ---
EXAM DESCRIPTION: US - Abdomen Exam Limited - 03/30/2022 10:38 am CLINICAL HISTORY: ABD PAIN COMPARISON: Abdomen Pelvis W Contrast dated 02/26/2022 FINDINGS: The gallbladder demonstrates no gallstones. No pericholecystic fluid or gallbladder wall t hickening. The common bile duct is upper limits of normal measuring 6 mm. The liver demonstrates no findings of intrahepatic biliary dilatation. IMPRESSION: Negative for cholelithiasis or acute cholecystitis. Common bile duct at upper limits of normal for age.
[2022-03-30] MEDS ORDERED: DIPHENHYDRAMINE 50 MG/ML VIAL ONE (11:21)
[2022-03-30] MEDS ORDERED: METHYLPREDNISOLONE 125 MG INJ ONE (11:21)
--- NOTE | 2022-03-30 11:21 | RAD REPORT ---
EXAM DESCRIPTION: CTAbdomen Pelvis W Contrast - 03/30/2022 11:06 am CLINICAL HISTORY: right upper abdomen pain COMPARISON: Abdomen Pelvis W Contrast dated 02/26/2022; Abdomen Pelvis W Contrast dated 02/23/2022; Abdomen Pelvis W Contrast dated 10/08/2021; Abdomen Pelvis W Contrast dated 02/06/2021; Chest For P e Angio dated 03/30/2022 TECHNIQUE: CT of the abdomen and pelvis was performed. All CT scans are performed using dose optimization technique as appropriate and may include automated exposure control or mA/KV adjustment according to patient size. FINDINGS: Lower chest: Mild circumferential thickened distal esophagus. Liver: Too small to characterize liver lesions which are likely benign. Biliary: No biliary ductal dilatation. Stomach: No significant focal abnormality. Duodenum: No significant focal abnormality. Pancreas: No significant abnormality. Spleen: No significant abnormality. Adrenal: No suspicious lesions. Kidney/ureter: No hydronephrosis. No renal calculi. Retroperitoneum: No retroperitoneal adenopathy. Vascular: No aneurysm. Bowel: No significant focal abnormality. Appendix is normal. Peritoneum: Small volume of pelvic free fluid which is likely physiologic. Bladder: Grossly unremarkable. Reproductive: No adnexal masses. Bones: No acute fracture. Other: n/a IMPRESSION: No acute intra-abdominal or pelvic finding. Normal appendix.
--- NOTE | 2022-03-30 11:23 | RAD REPORT ---
EXAM DESCRIPTION: CT - Chest For Pe Angio - 03/30/2022 11:04 am CLINICAL HISTORY: right lower chest pain COMPARISON: Thorax W/ Con dated 06/29/2021; Chest For Pe Angio dated 11/22/2018; Abdomen Pelvis W Con trast dated 03/30/2022 TECHNIQUE: Dynamically enhanced axial 3 mm thick images of the chest were obtained during administra tion of <100> mL Isovue 370 IV contrast. Coronal and oblique reconstruction images were generated and reviewed. Exam utilizes a protocol for optimal evaluation of pulmonary arterial tree. Maximum intensity projections 3D imaging was utilized All CT scans are performed using dose optimization technique as appropriate and may include automated exposure control or mA/KV adjustment according to patient size. FINDINGS: Chest Wall: No suspicious thyroid nodules or pathologic lymphadenopathy. Lungs: No acute abnormality. Pleura: No significant effusions or pneumothorax. Mediastinum/jennifer: No pathologic lymphadenopathy. Pulmonary arteries/Aorta: No filling defect identified. No aortic aneurysm. Heart: No significant pericardial effusion. Normal heart size. Upper abdomen: See seen day CT of the abdomen and pelvis. Bones: No acute abnormality. IMPRESSION: Negative for pulmonary embolism. No acute findings in the chest.
--- NOTE | 2022-03-30 12:38 | EDPHYS ---
Physician Documentation [facility] Name: Natasha Spann Age: 36 yrs Sex: Female : 1985 Arrival Date: 03/30/2022 Time: 08:25 Bed 13 Private MD: ED Physician Taylor Stark HPI: 03/30 08:45 This 36 yrs old Female presents to ER via Ambulatory with complaints of Back Pain. cp 08:45 The patient presents with pain that is acute, with no known mechanism of injury. The cp symptoms are located in the right subscapular area and right lateral lower chest area. 08:45 Onset: The symptoms/episode began/occurred 3 day(s) ago. The pain radiates to the right cp shoulder. 08:45 Associated signs and symptoms: Pertinent negatives: constipation, dysuria, fever, cp incontinence, numbness, weakness. The problem was sustained from unknown cause. Modifying factors: the patient symptoms are aggravated by deep inspiration. Severity of symptoms: in the emergency department the symptoms are unchanged, despite home interventions. [employer]: 08:34 LMP N/A - Irregular menses ss Historical: - Allergies: 08:34 bupropion HCl; ss 08:34 Levofloxacin; ss 08:34 Wellbutrin; ss - Home Meds: 09:06 Vistaril 25 mg Oral cap [Active]; Zoloft 100 mg Oral tab 1 tab once daily [Active]; jg9 - PMHx: 08:34 ADD/ADHD; Anxiety; Bipolar disorder; Depression; Endometrosis; Gastric Reflux; MRSA; ss osteomylitis; Ovarian cyst; UTI; - PSHx: 08:34 L BKA; ss - Immunization history:: Client reports receiving the 2nd dose of the Covid vaccine. - Social history:: Smoking status: Patient reports the use of cigarette tobacco products, smokes one-half pack cigarettes per day. ROS: 08:50 Constitutional: Negative for body aches, chills, fever, poor PO intake. cp 08:50 Eyes: Negative for injury, pain, redness, and discharge. cp 08:50 ENT: Negative for drainage from ear(s), ear pain, sore throat, difficulty swallowing, difficulty handling secretions. 08:50 Neck: Negative for pain with movement, pain at rest, stiffness. 08:50 Cardiovascular: Positive for chest pain, of the right lateral lower chest, Negative for edema, palpitations. 08:50 Respiratory: Negative for cough, shortness of breath, wheezing. 08:50 Abdomen/GI: Positive for abdominal pain, of the right lateral upper abdomen, Negative for vomiting, diarrhea, constipation, anorexia. 08:50 Back: Positive for pain at rest, pain with movement, of the right subscapular area. 08:50 : Negative for urinary symptoms. 08:50 Skin: Negative for rash. 08:50 Neuro: Negative for altered mental status, dizziness, headache, numbness, weakness. 08:50 All other systems are negative. Exam: 08:55 Constitutional: The patient appears in no acute distress, alert, awake, cp non-diaphoretic, non-toxic, well developed, well nourished, uncomfortable. 08:55 Head/Face: Normocephalic, atraumatic. cp 08:55 Eyes: Periorbital structures: appear normal, Conjunctiva: normal, no exudate, no injection, Sclera: no appreciated abnormality, Lids and lashes: appear normal, bilaterally. 08:55 ENT: External ear(s): are unremarkable, Nose: is normal, Mouth: Lips: moist, Oral mucosa: pink and intact, moist, Posterior pharynx: Airway: no evidence of obstruction, patent. 08:55 Neck: ROM/movement: is normal, is supple, without pain, no range of motions limitations. 08:55 Chest/axilla: Inspection: normal, Palpation: crepitus, is not appreciated, tenderness, that is moderate, of the right lower lateral chest, that partially reproduces the patient's complaints. 08:55 Cardiovascular: Rate: normal, Rhythm: regular, Edema: is not appreciated, JVD: is not appreciated. 08:55 Respiratory: the patient does not display signs of respiratory distress, Respirations: labored breathing, is not present, accessory muscle usage, is absent, intercostal retractions, are absent, shallow respirations, that is mild, Breath sounds: are clear throughout, no decreased breath sounds, no stridor, no wheezing. 08:55 Abdomen/GI: Inspection: abdomen appears normal, Bowel sounds: active, all quadrants, Palpation: soft, in all quadrants, mild abdominal tenderness, in the right upper quadrant, rebound tenderness, is not appreciated, involuntary guarding, is not appreciated. 08:55 Back: pain, that is moderate, of the right subscapular area, ROM is normal. 08:55 Skin: cellulitis, is not appreciated, no rash present. 08:55 Neuro: Orientation: to person, place \T\ time. Mentation: is normal, Motor: moves all fours, strength is normal, Sensation: is normal. 09:37 ECG was reviewed by the Attending Physician. cp Vital Signs: 08:33 BP 135 / 92; Pulse 81; Resp 14; Temp 97.4(TE); Pulse Ox 100% on R/A; Weight 72.57 kg; ss Height 5 ft. 8 in. (172.72 cm); Pain 8/10; 09:30 BP 119 / 77; Pulse 56; Resp 14 S; Pain 7/10; jg9 11:00 BP 113 / 75; Pulse 62; Resp 16 S; Pulse Ox 98% ; jg9 12:45 BP 111 / 89; Pulse 65; Resp 17 S; Pulse Ox 98% ; Pain 5/10; jg9 08:33 Body Mass Index 24.33 (72.57 kg, 172.72 cm) ss MDM: 08:35 Patient medically screened. cp 09:00 Differential diagnosis: Basilar Pneumonia Cholelithiasis Pyelonephritis cp Ureterolithiasis pneumothorax, pulmonary embolism. 12:36 Data reviewed: vital signs, nurses notes, lab test result(s), EKG, radiologic studies, cp CT scan, plain films. 12:36 Test interpretation: by ED physician or midlevel provider: ECG, plain radiologic cp studies. Counseling: I had a detailed discussion with the patient and/or guardian regarding: the historical points, exam findings, and any diagnostic results supporting the discharge/admit diagnosis, lab results, radiology results, to return to the emergency department if symptoms worsen or persist or if there are any questions or concerns that arise at home. Response to treatment: the patient's symptoms have markedly improved after treatment, and as a result, I will discharge patient. ED course: VSS. Pain improved with meds. Will discharge to home for continued monitoring. 03/30 08:36 Order name: Urine Microscopic Only; Complete Time: 10:16 cp 03/30 09:09 Order name: Basic Metabolic Panel; Complete Time: 10:16 cp 03/30 10:16 Interpretation: Normal except: NA 135; CRE 0.51. cp /10 09:09 Order name: CBC with Diff; Complete Time: 10:16 cp /10 10:17 Interpretation: Normal except: HCT 35.8; MPV 7.4. cp /10 09:09 Order name: D-Dimer; Complete Time: 10:16 cp /10 10:17 Interpretation: Abnormal: D-DIMER 1863. cp 10 09:09 Order name: LFT's; Complete Time: 10:16 cp 10 09:09 Order name: Magnesium; Complete Time: 10:16 cp 10 09:09 Order name: NT PRO-BNP; Complete Time: 10:16 cp 10 09:09 Order name: PT-INR; Complete Time: 10:16 cp 10 09:09 Order name: Troponin HS; Complete Time: 10:16 cp 10 09:09 Order name: XRAY Chest (1 view); Complete Time: 10:16 cp 03/30 09:09 Order name: Lipase; Complete Time: 10:16 cp 10 09:10 Order name: Urine Dipstick-Ancillary; Complete Time: 10:16 EDMS 03/30 09:15 Order name: Urine --Ancillary (enter results) bd 08 09:32 Order name: US Abdomen Limited: RUQ; Complete Time: 11:28 cp 10 11:29 Interpretation: Report reviewed. cp 03/30 08:36 Order name: Urine Dipstick-Ancillary (obtain specimen); Complete Time: 09:12 cp 03/30 08:36 Order name: Urine Test (obtain specimen); Complete Time: 09:15 cp 03/30 09:09 Order name: EKG; Complete Time: 09:10 cp 03/30 09:09 Order name: Cardiac monitoring; Complete Time: 09:35 cp 10 09:09 Order name: EKG - Nurse/Tech; Complete Time: 09:32 cp 03/30 09:09 Order name: IV Saline Lock; Complete Time: 09:35 cp 03/30 09:09 Order name: Labs collected and sent; Complete Time: 09:35 cp 03/30 09:09 Order name: O2 Sat Monitoring; Complete Time: 09:35 cp 10 10:28 Order name: CT Chest For PE Angio; Complete Time: 11:28 cp 03/30 10:34 Order name: CT Abd/Pelvis - IV Contrast Only; Complete Time: : cp EC: Rate is 55 beats/min. Rhythm is regular. WV interval is normal. QRS interval is normal. cp QT interval is normal. T waves are Inverted in lead aVR. Interpreted by me. Reviewed by me. Administered Medications: : Drug: Ketorolac 15 mg Route: IVP; Site: right forearm; jg9 10:30 Follow up: Response: No adverse reaction; Pain is decreased jg9 :25 Drug: NS 0.9% 1000 ml Route: IV; Rate: 500 ml/hr; Site: right forearm; jg9 11:00 Follow up: IV Status: Completed infusion; IV Intake: 1000ml jg9 11:18 Drug: SOLU-Medrol (methylPrednisoLONE) 125 mg Route: IVP; Site: right forearm; jg9 12:45 Follow up: Response: No adverse reaction; Marked relief of symptoms jg9 11:18 Drug: Benadryl (diphenhydrAMINE) 12.5 mg Route: IVP; Site: right forearm; jg9 12:45 Follow up: Response: No adverse reaction; Marked relief of symptoms jg9 Point of Care Testing: Urine : 10:00 hCG Reading: Negative; Control Reading: Positive; jg9 Disposition Summary: 03/30/22 12:37 Discharge Ordered Location: Home cp Condition: Stable cp Diagnosis - Intercostal pain, other cp Followup: cp - With: Private Physician - When: 2 - 3 days - Reason: Recheck today's complaints Discharge Instructions: - Discharge Summary Sheet cp - Chest Wall Pain cp - Musculoskeletal Pain cp Forms: - Medication Reconciliation Form cp - Thank You Letter cp - Antibiotic Education cp - Prescription Opioid Use cp Prescriptions: - Medrol (Mc) 4 mg Oral Tablets, Dose Pack - take 1 tablet by ORAL route as directed - follow package instructions; 1 cp packet; Refills: 0, Product Selection Permitted - orphenadrine citrate 100 mg Oral Tablet Sustained Release - take 1 tablet by ORAL route 2 times per day As needed; 20 tablet; Refills: 0, cp Product Selection Permitted - Lidoderm 5 % Topical adhesive patch,medicated - apply 1 patch by TOPICAL route once daily; 10 patch; Refills: 0, Product cp Selection Permitted Signatures: Dispatcher [employer] Fabiola Grey RN RN ss Ole Lassiter PA PA Mackenzie Snyder RN RN jg9 Corrections: (The following items were deleted from the chart) 09:39 09:09 Oxygen Per Protocol ordered. cp jg9 03/31 12:28 03/30 08:50 Abdomen/GI: Negative for vomiting, diarrhea, constipation, anorexia, cp cp
--- NOTE | 2022-03-30 12:38 | ER ---
Nurse's Notes [facility] Name: Natasha Spann Age: 36 yrs Sex: Female : 1985 Arrival Date: 03/30/2022 Time: 08:25 Bed 13 Private MD: Diagnosis: Intercostal pain, other Presentation: 03/30 08:34 Chief complaint: Patient states: Pain on R side of abd that began Monday. Pt reports ss that when she takes a deep breath, the pain shoots up to her R shoulder. Coronavirus screen: Client denies travel out of the [place] in the last 14 days. Ebola Screen: Patient denies exposure to infectious person. Patient denies travel to an Ebola-affected area in the 21 days before illness onset. Initial Sepsis Screen: Does the patient meet any 2 criteria? No. Patient's initial sepsis screen is negative. Does the patient have a suspected source of infection? No. Patient's initial sepsis screen is negative. Risk Assessment: Do you want to hurt yourself or someone else? Patient reports no desire to harm self or others. Onset of symptoms was March 27, 2022. 08:34 Method Of Arrival: Ambulatory ss 08:34 Acuity: EMILY 3 ss Triage Assessment: 09:05 General: Appears in no apparent distress. Behavior is calm, cooperative. jg9 Musculoskeletal: No deficits noted. 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 - Social history:: Smoking status: Patient reports the use of cigarette tobacco products, smokes one-half pack cigarettes per day. Screenin:05 Abuse screen: Denies threats or abuse. Denies injuries from another. Nutritional jg9 screening: No deficits noted. Tuberculosis screening: No symptoms or risk factors identified. Fall Risk None identified. Assessment: 09:04 Reassessment: No changes from previously documented assessment. Pain: Complains of pain jg9 in posterior aspect of right lateral abdomen, anterior aspect of right lateral abdomen, right upper quadrant and right lower quadrant Pain radiates to anterior aspect of right shoulder and chest. Neuro: Level of Consciousness is awake, alert, obeys commands, Oriented to person, place, time. 11:05 Reassessment: patient returned from CT, patient c/o itching/hives all over denied any jg9 allergies to IVP, patient denied any respiratory issues and does not appear to be in distress-provider notified and orders placed. 11:19 Reassessment: Patient symptoms improving-itching is starting to resolve-patient resting jg9 at this time no distress. 12:00 Reassessment: No changes from previously documented assessment. Patient and/or family jg9 updated on plan of care and expected duration. Pain level reassessed. Patient states feeling better. Patient states symptoms have improved. Vital Signs: 08:33 BP 135 / 92; Pulse 81; Resp 14; Temp 97.4(TE); Pulse Ox 100% on R/A; Weight 72.57 kg; Height 5 ft. 8 in. (172.72 cm); Pain 8/10; 09:30 BP 119 / 77; Pulse 56; Resp 14 S; Pain 7/10; jg9 11:00 BP 113 / 75; Pulse 62; Resp 16 S; Pulse Ox 98% ; jg9 12:45 BP 111 / 89; Pulse 65; Resp 17 S; Pulse Ox 98% ; Pain 5/10; jg9 08:33 Body Mass Index 24.33 (72.57 kg, 172.72 cm) ED Course: 08:25 Patient arrived in ED. rg4 08:34 Ole Lassiter PA is PHCP. cp 08:34 Taylor Stark MD is Attending Physician. cp 08:35 Triage completed. 09:03 Mackenzie Harris, JONY is Primary Nurse. jg9 09:05 Arm band placed on right wrist. jg9 09:05 Patient has correct armband on for positive identification. Bed in low position. Call jg9 light in reach. Side rails up X 1. 09:15 Urine collected: clean catch specimen, clear. jw7 09:20 Inserted saline lock: 22 gauge in right forearm, using aseptic technique. Blood jg9 collected. 09:42 XRAY Chest (1 view) In Process Unspecified. EDMS 10:39 US Abdomen Limited: RUQ In Process Unspecified. EDMS 11:06 CT Chest For PE Angio In Process Unspecified. EDMS 11:07 CT Abd/Pelvis - IV Contrast Only In Process Unspecified. EDMS 13:03 No provider procedures requiring assistance completed. jg9 13:03 IV discontinued. jg9 Administered Medications: 09:25 Drug: Ketorolac 15 mg Route: IVP; Site: right forearm; jg9 10:30 Follow up: Response: No adverse reaction; Pain is decreased jg9 09:25 Drug: NS 0.9% 1000 ml Route: IV; Rate: 500 ml/hr; Site: right forearm; jg9 11:00 Follow up: IV Status: Completed infusion; IV Intake: 1000ml jg9 11:18 Drug: SOLU-Medrol (methylPrednisoLONE) 125 mg Route: IVP; Site: right forearm; jg9 12:45 Follow up: Response: No adverse reaction; Marked relief of symptoms jg9 11:18 Drug: Benadryl (diphenhydrAMINE) 12.5 mg Route: IVP; Site: right forearm; jg9 12:45 Follow up: Response: No adverse reaction; Marked relief of symptoms jg9 Medication: 13:03 VIS not applicable for this client. jg9 Point of Care Testing: Urine : 10:00 hCG Reading: Negative; Control Reading: Positive; jg9 Intake: 11:00 IV: 1000ml; Total: 1000ml. jg9 Outcome: 12:37 Discharge ordered by . julieta 13:01 Patient left the ED. jg9 13:03 Discharged to home ambulatory. jg9 13:03 Condition: stable 13:03 Discharge instructions given to patient, Instructed on discharge instructions, follow up and referral plans. Demonstrated understanding of instructions, follow-up care, Prescriptions given X 3. Signatures: Dispatcher [employer] EDFabiola Miller RN RN Ole Denis PA PA cp Garcia, Rubi rg4 Mackenzie Harris RN RN jg9 Jacqueline Mao jw7 Corrections: (The following items were deleted from the chart) 11:20 11:05 Reassessment: patient returned from CT, patient c/o itching/hives all over denied jg9 any allergies to IVP-provider notified and orders placed. jg9
[2022-03-30 13:44] VITALS: TEMP 97.4
[2022-03-30 18:25] VITALS: O2SAT 98
[2022-03-30 18:26] VITALS: BP 111/89
--- NOTE | 2022-03-31 14:34 | EKG ---
Test Date: 2022-03-30 Test Time: 09:33:30 [employer] Systems Engineer: JADA MEASUREMENT RESULTS: Intervals: Rate: 55 NC: 154 QRSD: 86 QT: 420 QTc: 401 [place]: P: 46 NC: 154 QRS: 83 T: 67 INTERPRETIVE STATEMENTS: Sinus bradycardia Otherwise normal ECG Compared to ECG 07/31/2021 16:30:01 Sinus rhythm no longer present Sinus arrhythmia no longer present Electronically Signed On 03-31-22 14:32:36 CDT by Klever Stephens
== END 2022-03-30 13:01 | disposition home or self-care (01) ==
LOC: ER 08:23
DX: R07.82 Intercostal pain (principal); F31.9 Bipolar disorder, unspecified; F17.210 Nicotine dependence, cigarettes, uncomplicated; Z88.3 Allergy status to other anti-infective agents; Z88.8 Allergy status to other drugs, medicaments and biological substances
CPT/HCPCS: 36415; 71045; 71275; 74177; 76705; 80048; 80076; 81003; 81015; 81025; 83690; 83735; 83880; 84484; 85025; 85379; 85610; 93005; 96361; 96374; 96375; 99284; J1200; J2930; J7030; Q9967

== ENCOUNTER 2022-06-16 08:01 | Emergency (ER) | payer SELFPAY ==
--- OUTSIDE RECORDS SUMMARY | 2022-06-16 08:21 | XMS REPORT | Continuity of Care Document ---
:1985 Author Organization [facility] t Address [address] [place] [address] Care Team Providers Name Role Phone Kit Hayes PA-C Primary Care Physician PINO ALDANA Attending Clinician Unavailable Pino Murphy Attending Clinician KATELYN BAKER Attending Clinician Unavailable Katelyn Baker NP Attending Clinician Doctor Unassigned, Stevenson Attending Clinician Unavailable KATHERIN MAURER Attending Clinician Unavailable Katherin Florentino Attending Clinician Blayne Hairston MD Attending Clinician Basil Dove DO Attending Clinician Amaris Martinez Attending Clinician Ad Dodd Attending Clinician Vonda Plasencia Attending Clinician JOYCE FOLEY Attending Clinician Unavailable KATHERIN MAURER Admitting Clinician Unavailable PINO ALDANA Admitting Clinician Unavailable JOYCE FOLEY Admitting Clinician Unavailable Payers Payer Name Policy Type Policy Number Effective Date Expiration Date Steffany [place] [id number] 2019 WOMEN 00:00:00 MEDICAID SSI PENDING 2021 2021 PENDING 00:00:00 00:00:00 Problems Condition Condition Condition Status Onset Resolution Last Treating Co mments Source Name Details Category Date Date Treatment Clinician Date Migraine Migraine Disease Active Unive rs without without 5-25 ity of status status 00:00: [place] migrainosu migrainosu 00 Me dical s, not s, not Branch intractabl intractabl e, e, unspecifie unspecifie d migraine d migraine type type Gastroesop Gastroesop Disease Active U nivers hageal hageal 5-25 ity of reflux reflux 00:00: [place] disease, disease, 00 Medica l esophagiti esophagiti [...] alth Maternal grandmother Coronary artery [facility] Natural mother Coron[facility] Maternal aunt Coronary artery [facility] Social History Social Habit Start Date Stop Date Quantity Comments Source History of tobacco 1992-02-15 Cigarette Smoker [facility] use 00:00:00 [facility] History [facility] Frequency [facility] Std Drinks History [facility] Binge Exposure to Not sure [facility] SARS-CoV-2 (event) [facility] Alcohol intake 2017-04-09 2017-04-09 Current [facility] 00:00:00 00:00:00 non-drinker of Hospital alcohol (finding) History SDOH 2015-04-16 2015-04-16 last drink [facility] Comment 00:00:00 00:00:00 02/2015 Cigarettes smoked 2015-04-16 2015-04-16 [facility] current (pack per 00:00:00 00:00:00 day) - Reported Cigarette 2015-04-16 2015-04-16 [facility] pack-years 00:00:00 00:00:00 Tobacco use and 2015-04-16 2015-04-[address] [facility] alth exposure 00:00:00 00:00:00 tobacco non-user Sex Ass[birth year] [facility] 00:00:00 00:00:00 [facility] Smoking Status Start Date Stop Date Source Current every day smoker 2018-02-14 00:00:00 [facility] Never smoked tobacco [facility] Medications Ordered Filled Start Stop Current Ordering Indication Dosage Frequency Signature Comments Components Source Medication Medication Date Date Medication? Clinician (SIG) Name Name TAKE 2021-0 No 100 CAPSULE BY 9-02 MOUTH TWICE 00:00: DAILY FOR 14 DAYS TAKE 1 2021-0 No CAPSULE BY 9-02 MOUTH TWICE 00:00: DAILY FOR 14 DAYS TAKE 1 2021-0 No 800 TABLET 8-05 EVERY 8 00:00: HOURS 00 NEEDED. TAKE 1 2021-0 No 10 TABLET BY 8-05 MOUTH EVERY 00:00: 6 HOURS 00 NEEDED FOR PAIN (SCALE 4-6) TAKE 1 2021-0 No 10 TABLET BY 8-05 MOUTH TWICE 00:00: A DAY 00 NEEDED FOR MUSCLE SPASMS TAKE ONE 2021-0 No 500 (1) 8-05 TABLET(S) 00:00: BY MOUTH 00 EVERY TWELVE HOURS FOR 7 DAYS. TAKE 1 2022-0 No TABLET BY 8-05 MOUTH EVERY 00:00: 4 HOURS 00 NEEDED FOR PAIN (SCALE 4-6) Dose 2022-0 No 1 Unknown 8-05 00:00: 00 TAKE 1 2022-0 No 500 CAPSULE BY 8-05 MOUTH EVERY 00:00: 12 HOURS 00 FOR 10 DAYS FOR INFECTIOUS PROCESS TAKE 1 2022-0 No 10 TABLET BY 8-05 MOUTH EVERY 00:00: 6 HOURS 00 NEEDED FOR PAIN (SCALE 4-6) TAKE ONE 2022-0 No 500 (1) 8-05 TABLET(S) 00:00: BY MOUTH 00 EVERY TWELVE HOURS FOR 7 DAYS. TAKE 1 2022-0 No 800 TABLET 8-05 EVERY 8 00:00: HOURS 00 NEEDED. TAKE 1 2022-0 No 375 TABLET BY 8-05 MOUTH TWICE 00:00: A DAY FOR 7 00 DAYS TAKE 1 2022-0 No TABLET BY 8-05 MOUTH EVERY 00:00: 4 HOURS FOR 00 3 DAYS NEEDED FOR PAIN TAKE 1 2022-0 No 20 TABLET BY 8-05 MOUTH THREE 00:00: TIMES DAILY 00 TAKE 1 2022-0 No 500 CAPSULE BY 8-05 MOUTH EVERY 00:00: 12 HOURS 00 FOR 10 DAYS TAKE 1 2022-0 No 800 TABLET 8-05 EVERY 8 00:00: HOURS 00 NEEDED. TAKE 1 2022-0 No 10 TABLET BY 8-05 MOUTH EVERY 00:00: 6 HOURS 00 NEEDED FOR PAIN (SCALE 4-6) TAKE 1 2022-0 No 10 TABLET BY 8-05 MOUTH TWICE 00:00: A DAY 00 NEEDED FOR MUSCLE SPASMS TAKE ONE 2022-0 No 500 (1) 8-05 TABLET(S) 00:00: BY MOUTH 00 EVERY TWELVE HOURS FOR 7 DAYS. Dose 2022-0 No Unknown 8-05 00:00: 00 Dose 2022-0 No 1 Unknown 8-05 00:00: 00 TAKE 1 2022-0 No 500 CAPSULE BY 8-05 MOUTH EVERY 00:00: 12 HOURS 00 FOR 10 DAYS FOR INFECTIOUS PROCESS TAKE 1 2022-0 No 10 TABLET BY 8-05 MOUTH EVERY 00:00: 6 HOURS 00 NEEDED FOR PAIN (SCALE 4-6) TAKE ONE 2022-0 No 500 (1) 8-05 TABLET(S) 00:00: BY MOUTH 00 EVERY TWELVE HOURS FOR 7 DAYS. TAKE 1 2022-0 No 800 TABLET 8-05 EVERY 8 00:00: HOURS 00 NEEDED. TAKE 1 2022-0 No 375 TABLET BY 8-05 MOUTH TWICE 00:00: A DAY FOR 7 00 DAYS TAKE 1 2022-0 No TABLET BY 8-05 MOUTH EVERY 00:00: 4 HOURS FOR 00 3 DAYS NEEDED FOR PAIN TAKE 1 2022-0 No 20 TABLET BY 8-05 MOUTH THREE 00:00: TIMES DAILY 00 TAKE 1 2022-0 No 500 CAPSULE BY 8-05 MOUTH EVERY 00:00: 12 HOURS 00 FOR 10 DAYS TAKE 1 2022-0 No TABLET BY 8-02 MOUTH EVERY 00:00: 4 HOURS 00 NEEDED FOR PAIN (SCALE 4-6) TAKE ONE 2022-0 No 75 (1) 8-02 TABLET(S) 00:00: BY MOUTH 00 TWICE A DAY NEEDED. TAKE 1 2022-0 No 500 CAPSULE BY 8-02 MOUTH EVERY 00:00: 12 HOURS 00 FOR 10 DAYS TAKE 1 2022-0 No TABLET BY 8-02 MOUTH EVERY 00:00: 4 HOURS 00 NEEDED FOR PAIN (SCALE 4-6) TAKE ONE 2022-0 No 75 (1) 8-02 TABLET(S) 00:00: BY MOUTH 00 TWICE A DAY NEEDED. TAKE 1 2022-0 No 500 CAPSULE BY 8-02 MOUTH EVERY 00:00: 12 HOURS 00 FOR 10 DAYS TAKE 1 2022-0 No TABLET BY 8-02 MOUTH EVERY 00:00: 4 HOURS 00 NEEDED FOR PAIN (SCALE 4-6) TAKE ONE 2022-0 No 75 (1) 8-02 TABLET(S) 00:00: BY MOUTH 00 TWICE A DAY NEEDED. TAKE 1 2022-0 No 500 CAPSULE BY 8-02 MOUTH EVERY 00:00: 12 HOURS 00 FOR 10 DAYS Dose 2022-0 No 1 Unknown 02-23 00:00: 00 TAKE 1 2022-0 No 20 TABLET BY - MOUTH THREE 00:00: TIMES DAILY 00 TAKE 1 2022-0 No 500 CAPSULE BY 7- MOUTH EVERY 00:00: 12 HOURS 00 FOR 10 DAYS FOR INFECTIOUS PROCESS Dose 2022-0 No 1 Unknown 02-23 00:00: 00 TAKE 1 2022-0 No 20 TABLET BY - MOUTH THREE 00:00: TIMES DAILY 00 TAKE 1 2022-0 No 500 CAPSULE BY 7-06 MOUTH EVERY 00:00: 12 HOURS 00 FOR 10 DAYS FOR INFECTIOUS PROCESS Dose 2022-0 No 1 Unknown 7 00:00: 00 TAKE 1 2022-0 No 20 TABLET BY 7-06 MOUTH THREE 00:00: TIMES DAILY 00 TAKE 1 2022-0 No 500 CAPSULE BY 7-06 MOUTH EVERY 00:00: 12 HOURS 00 FOR 10 DAYS FOR INFECTIOUS PROCESS TAKE 1 2022-0 No 1 TABLET BY 7-05 MOUTH 3 00:00: (THREE) 00 TIMES DAILY FOR 5 DAYS. TAKE 1 2022-0 No 10 TABLET BY 7-05 MOUTH TWICE 00:00: A DAY 00 NEEDED FOR MUSCLE SPASMS Dose 2022-0 No Unknown 7-05 00:00: 00 TAKE 1 2022-0 No 1 TABLET BY 7-05 MOUTH 3 00:00: (THREE) 00 TIMES DAILY FOR 5 DAYS. TAKE 1 2022-0 No 10 TABLET BY 7-05 MOUTH TWICE 00:00: A DAY 00 NEEDED FOR MUSCLE SPASMS Dose 2022-0 No Unknown 02-22 00:00: 00 TAKE 1 2022-0 No 1 TABLET BY 7-05 MOUTH 3 00:00: (THREE) 00 TIMES DAILY FOR 5 DAYS. TAKE 1 2022-0 No 10 TABLET BY 7-05 MOUTH TWICE 00:00: A DAY 00 NEEDED FOR MUSCLE SPASMS Dose 2022-0 No Unknown -05 00:00: 00 methocarbam 2022-0 No 1mg ol 750 mg 6-13 tablet 00:00: 00 TAKE 1 2022-0 No TABLET BY 6-13 MOUTH TWICE 00:00: A DAY 00 NEEDED FOR MUSCLE SPASMS TAKE 1 2022-0 No TABLET BY 6-13 MOUTH EVERY 00:00: 4 HOURS 00 NEEDED FOR PAIN (SCALE 4-6) methocarbam 2022-0 No 1mg ol 750 mg 6-13 tablet 00:00: 00 TAKE 1 2022-0 No TABLET BY 6-13 MOUTH TWICE 00:00: A DAY 00 NEEDED FOR MUSCLE SPASMS TAKE 1 2022-0 No TABLET BY 6-13 MOUTH EVERY 00:00: 4 HOURS 00 NEEDED FOR PAIN (SCALE 4-6) methocarbam 2022-0 No 1mg ol 750 mg 6-13 tablet 00:00: 00 TAKE 1 2022-0 No TABLET BY 6-13 MOUTH TWICE 00:00: A DAY 00 NEEDED FOR MUSCLE SPASMS TAKE 1 2-0 No TABLET BY 6-13 MOUTH EVERY 00:00: 4 HOURS 00 NEEDED FOR PAIN (SCALE 4-6) chlorthalid 2022-0 No 1mg one 25 mg 5-10 tablet 00:00: 00 Dose 2022-0 No Unknown 5-10 00:00: 00 Dose 2022-0 No Unknown 5-10 00:00: 00 Dose 2022-0 No Unknown 5-10 00:00: 00 Dose 2022-0 No Unknown 5-10 00:00: 00 chlorthalid 2022-0 No 1mg one 25 mg 5-10 tablet 00:00: 00 Dose 2-0 No Unknown 5-10 00:00: 00 Dose 2-0 No Unknown 5-10 00:00: 00 Dose 2-0 No Unknown 5-10 00:00: 00 Dose 2022-0 No Unknown 5-10 00:00: 00 chlorthalid 2022-0 No 1mg one 25 mg 5-10 tablet 00:00: 00 Dose 2022-0 No Unknown 5-10 00:00: 00 Dose 2022-0 No Unknown 5-10 00:00: 00 Dose 2022-0 No Unknown 5-10 00:00: 00 Dose 2022-0 No Unknown 5-10 00:00: 00 metronidazo 2022-0 No 1mg le 500 mg 5-06 tablet 00:00: 00 metronidazo 2022-0 No 1mg le 500 mg 5-06 tablet 00:00: 00 metronidazo 2022-0 No 1mg le 500 mg 5-06 tablet [...] 2022-0 No Unknown 4-14 00:00: 00 Dose 2-0 No Unknown 4-14 00:00: 00 Dose 2-0 No Unknown 4-14 00:00: 00 Dose 2021-0 No Unknown 4-14 00:00: 00 Dose 2-0 No Unknown 4-14 00:00: 00 Dose 2-0 No Unknown 4-14 00:00: 00 Dose 2-0 No Unknown 4-14 00:00: 00 Dose 2021-0 [...] 2021-0 No Unknown 4-14 00:00: 00 ibuprofen 2021-0 2021- No 600mg 600 mg, Uni vers (IBU) 10-10-20 Oral, ity of tablet 600 18:30: 17:31 ONCE, 1 [place] mg 00 :00 dose, On Medical [place] 10/10/21 at 1230, PUSHPA butalbital- 2021- No 1{tbl} 1 tablet, Univers acetaminoph 10-10-20 Oral, ity of en-caff 18:30: 17:31 ONCE, 1 [place] (ESGIC) 00 :00 dose, On Medical 50-325-40 Sun Branch mg tablet 1 10/10/21 at tablet 1230, Routine diphenhydrA 2021- No 25mg 25 mg, Uni vers MINE 2-20 02-20 Oral, ity of (BENADRYL) 18:30: 17:31 ONCE, 1 [place] tablet 25 00 :00 dose, On Medica l mg [place] [facility] 10/10/21 at 1230, PUSHPA metoclopram 2021-0 2021- No 10mg 10 mg, Uni vers arianne HCl 2-20 02-20 Oral, ity of (REGLAN) 18:30: 17:30 ONCE, 1 [place] tablet 10 00 :00 dose, On Medica l mg [place] Branch 10/10/21 at 1230, Routine butalbital- 2021-0 Yes [id number] 1{tbl} Take 1 Univers acetaminoph 2-20 tablet by ity of en-caff 00:00: mouth [place] 50-325-40 00 every 6 Medical mg tablet (six) Branch hours as needed for Pain (scale 7-10). amoxicillin 2-0 No 1mg 875 2-17 mg-potassiu 00:00: m 00 clavulanate 125 mg tablet ibuprofen 2022-0 No 1mg 600 mg 2-17 tablet 00:00: 00 amoxicillin 2022-0 No 1mg 875 2-17 mg-potassiu 00:00: m 00 clavulanate 125 mg tablet ibuprofen 2022-0 No 1mg 600 mg 2-17 tablet 00:00: 00 amoxicillin 2022-0 No 1mg 875 2-17 mg-potassiu 00:00: m 00 clavulanate 125 mg tablet ibuprofen 2022-0 No 1mg 600 mg 2-17 tablet 00:00: 00 azithromyci 2022-0 No 2mg n 500 mg 1-31 tablet 00:00: 00 azithromyci 2022-0 No 2mg n 500 mg 1-31 tablet 00:00: 00 azithromyci 2022-0 No 2mg n 500 mg 1-31 tablet 00:00: 00 HYDROcodone 2-0 2022- No 1{tbl} 1 tablet, Univers -acetaminop 09-17 Oral, ity of hen (NORCO) 05:15: 04:19 ONCE, 1 [place] 10-325 mg 00 :00 dose, On Medica l tablet 1 [place] Branch tablet 09/16/21 at 2315, Routine acetaminoph 2022-0 Yes [id number] 1{tbl} Take 1 Un tracee [...] 09/15/21 at 1515, PUSHPA iopamidol 2021- No [id number] 100mL 100 mL, Univers (ISOVUE 09-15 Intravenou [...] 09/15/21 at 1345, PUSHPA doxycycline 2021- No [id number] 100mg Take 1 Univers monohydrate 09-1510 capsule by i ty of 100 mg 00:00: 05:59 mouth 2 [place] capsule 00 :00 (two) Medical times Branch daily for 14 days. metroNIDAZO 2021- No [id number] 500mg Take 1 Univers LE 500 mg 09-1510 tablet by ity of tablet 00:00: 05:59 mouth 2 [place] 00 :00 (two) Medical times Branch daily for 14 days. doxycycline 2021- No [id number] 100mg Take 1 Univers monohydrate 09-1510 capsule by i ty of 100 mg 00:00: 05:59 mouth 2 [place] capsule 00 :00 (two) Medical times Branch daily for 14 days. metroNIDAZO 2021- No [id number] 500mg Take 1 Univers LE 500 mg 09-15-10 tablet by ity of tablet 00:00: 05:59 mouth 2 [place] 00 :00 (two) Medical times Branch daily for 14 days. ketorolac 2021- No 30mg 30 mg, Unive rs (TORADOL) 08-22 Slow IV ity of injection 00:15: 23:13 Push, [place] 30 mg 00 :00 ONCE, 1 Medical dose, On Branch 08/21/21 at 1815, PUSHPA
[facility] [place] healthy member approving Restricted medication : KATHERIN MAURER diazePAM 2021- No 2mg 2 mg, Slow Un tracee (VALIUM) 08-21 IV Push, ity of injection 2 23:30: 22:52 ONCE, 1 [place] mg 00 :00 dose, On Medical 08/21/21 Branch at 1730, STAT diphenhydrA 2021- No 25mg 25 mg, Uni vers MINE 08-21 Slow IV ity of (BENADRYL) 23:30: 22:45 Push, [place] injection 00 :00 ONCE, 1 Medical 25 mg dose, On Branch 08/21/21 at 1730, STAT metoclopram 2021- No 10mg 10 mg, Uni vers arianne HCl 08-21 Slow IV ity of (REGLAN) 23:30: 22:49 Push, [place] injection 00 :00 ONCE, 1 Medical 10 mg dose, On Branch 08/21/21 at 1730, PUSHPA NaCl 0.9% 2021- No 1000mL at 999 Uni vers (NS) bolus 08-21 mL/hr, ity of infusion 23:30: 23:45 1,000 mL, [place] 1,000 mL 00 :00 IV Medical Infusion, Branch ONCE, 1 dose, On 08/21/21 at 1730, STAT ondansetron Yes [id number] 4mg Take 1 Univers (ZOFRAN 1-01 tablet by ity of ODT) 4 mg 00:00: mouth [place] disintegrat 00 every 8 Medic al ing tablet (eight) Branch hours as needed for Nausea and Vomiting (N/V). ketorolac Yes [id number] 10mg Take 1 U nivers 10 mg -01 tablet by ity of tablet 00:00: mouth [place] 00 every 6 Medical (six) Branch hours as needed for Pain (scale 4-6). methocarbam Yes [id number] 500mg Take 1 Univers oL 500 mg 1-01 tablet by ity o f tablet 00:00: mouth 4 [place] 00 (four) Medical times Branch daily as needed for Pain (scale 4-6). ondansetron 2022-0 Yes [id number] 4mg Take 1 Univers (ZOFRAN 1-01 tablet by ity of ODT) 4 mg 00:00: mouth [place] disintegrat 00 every 8 Medic al ing tablet (eight) Branch hours as needed for Nausea and Vomiting (N/V). ketorolac 2022-0 Yes [id number] 10mg Take 1 U nivers 10 mg 1-01 tablet by ity of tablet 00:00: mouth [place] 00 every 6 Medical (six) Branch hours as needed for Pain (scale 4-6). methocarbam 2022-0 Yes [id number] 500mg Take 1 Univers oL 500 mg 1-01 tablet by ity o f tablet 00:00: mouth 4 [place] 00 (four) Medical times Branch daily as needed for Pain (scale 4-6). ondansetron 2022-0 Yes [id number] 4mg Take 1 Univers (ZOFRAN 1-01 tablet by ity of ODT) 4 mg 00:00: mouth [place] disintegrat 00 every 8 Medic al ing tablet (eight) Branch hours as needed for Nausea and Vomiting (N/V). ketorolac 2022-0 Yes [id number] 10mg Take 1 U nivers 10 mg 1-01 tablet by ity of tablet 00:00: mouth [place] 00 every 6 Medical (six) Branch hours as needed for Pain (scale 4-6). methocarbam 2022-0 Yes [id number] 500mg Take 1 Univers oL 500 mg 1-01 tablet by ity o f tablet 00:00: mouth 4 [place] 00 (four) Medical times Branch daily as needed for Pain (scale 4-6). ondansetron 2022-0 Yes [id number] 4mg Take 1 Univers (ZOFRAN 1-01 tablet by ity of ODT) 4 mg 00:00: mouth [place] disintegrat 00 every 8 Medic al ing tablet (eight) Branch hours as needed for Nausea and Vomiting (N/V). ketorolac 2022-0 Yes [id number] 10mg Take 1 U nivers 10 mg 1-01 tablet by ity of tablet 00:00: mouth [place] 00 every 6 Medical (six) Branch hours as needed for Pain (scale 4-6). methocarbam 2022-0 Yes [id number] 500mg Take 1 Univers oL 500 mg 1-01 tablet by ity o f tablet 00:00: mouth 4 [place] 00 (four) Medical times Branch daily as needed for Pain (scale 4-6). ondansetron 2022-0 Yes [id number] 4mg Take 1 Univers (ZOFRAN 1-01 tablet by ity of ODT) 4 mg 00:00: mouth [place] disintegrat 00 every 8 Medic al ing tablet (eight) Branch hours as needed for Nausea and Vomiting (N/V). ketorolac 2022-0 Yes [id number] 10mg Take 1 U nivers 10 mg 1-01 tablet by ity of tablet 00:00: mouth [place] 00 every 6 Medical (six) Branch hours as needed for Pain (scale 4-6). methocarbam 2022-0 Yes [id number] 500mg Take 1 Univers oL 500 mg 1-01 tablet by ity o f tablet 00:00: mouth 4 [place] 00 (four) Medical times Branch daily as needed for Pain (scale 4-6). ondansetron 2-0 Yes [id number] 4mg Take 1 Univers (ZOFRAN 1-01 tablet by ity of ODT) 4 mg 00:00: mouth [place] disintegrat 00 every 8 Medic al ing tablet (eight) Branch hours as needed for Nausea and Vomiting (N/V). ketorolac 2022-0 Yes [id number] 10mg Take 1 U nivers 10 mg 1-01 tablet by ity of tablet 00:00: mouth [place] 00 every 6 Medical (six) Branch hours as needed for Pain (scale 4-6). methocarbam 2022-0 Yes [id number] 500mg Take 1 Univers oL 500 mg 1-01 tablet by ity o f tablet 00:00: mouth 4 [place] 00 (four) Medical times Branch daily as needed for Pain (scale 4-6). Latuda 40 2020-1 No 1mg mg tablet 2-14 00:00: 00 Zoloft 100 2020-1 No 51mg mg tablet 2-14 00:00: 00 Zoloft 100 2020-1 No 1mg mg tablet 2-14 00:00: 00 Vistaril 25 2020- No 1mg mg capsule 2-14 00:00: 00 Latuda 40 2020- No 1mg mg tablet 2-14 00:00: 00 Zoloft 2020- No 51mg mg tablet 2-14 00:00: 00 Zoloft 2020- No 1mg mg tablet 2-14 00:00: 00 Vistaril 25 2020- No 1mg mg capsule 2-14 00:00: 00 Latuda 40 2020- No 1mg mg tablet 2-14 00:00: 00 Zoloft 2020- No 51mg mg tablet 2-14 00:00: 00 Zoloft 2020- No 1mg mg tablet 2-14 00:00: 00 Vistaril 2020- No 1mg mg capsule 2-14 00:00: 00 Bromfed DM 2020-1 No 10mg/5 2 mg-30 2-01 mL mg-10 mg/5 00:00: mL oral 00 syrup Bromfed DM 2020-1 No 10mg/5 2 mg-30 2-01 mL mg-10 mg/5 00:00: mL oral 00 syrup Bromfed DM 2020-1 No 10mg/5 2 mg-30 2-01 mL mg-10 mg/5 00:00: mL oral 00 syrup Latuda 40 2020- No 1mg mg tablet 1-15 00:00: 00 Zoloft 2020- No 51mg mg tablet 1-15 00:00: 00 Vistaril 25 2020- No 1mg mg capsule 1-15 00:00: 00 Latuda 40 2020- No 1mg mg tablet 1-15 00:00: 00 Zoloft 2020- No 51mg mg tablet 1-15 00:00: 00 Vistaril 25 2020- No 1mg mg capsule 1-15 00:00: 00 Latuda 40 2020- No 1mg mg tablet 1-15 00:00: 00 Zoloft 2020- No 51mg mg tablet 1-15 00:00: 00 Vistaril 25 2020- No 1mg mg capsule 1-15 00:00: 00 Zoloft 2020- No 1mg mg tablet 0-18 00:00: 00 Latuda 40 2020-1 No 1mg mg tablet 0-18 00:00: 00 Vistaril 25 2020-1 No 1mg mg capsule 0-18 00:00: 00 Zoloft 100 2020-1 No 1mg mg tablet 0-18 00:00: 00 Latuda 40 2020-1 No 1mg mg tablet 0-18 00:00: 00 Vistaril 25 2020-1 No 1mg mg capsule 0-18 00:00: 00 Zoloft 100 2020-1 No 1mg mg tablet 0-18 00:00: 00 Latuda 40 2020-1 No 1mg mg tablet 0-18 00:00: 00 Vistaril 25 2020-1 No 1mg mg capsule 0-18 00:00: 00 Latuda 20 2020-1 No 1mg mg tablet 0-05 00:00: 00 Zoloft 100 2020-1 No 1mg mg tablet 0-05 00:00: 00 Latuda 40 2020-1 No 1mg mg tablet 0-05 00:00: 00 Vistaril 25 2020-1 No 1mg mg capsule 0-05 00:00: 00 Vistaril 25 2020-1 No 1mg mg capsule 0-05 00:00: 00 Latuda 20 2020-1 No 1mg mg tablet 0-05 00:00: 00 Zoloft 100 2020-1 No 1mg mg tablet 0-05 00:00: 00 Latuda 40 2020-1 No 1mg mg tablet 0-05 00:00: 00 Vistaril 25 2020-1 No 1mg mg capsule 0-05 00:00: 00 Vistaril 25 2020-1 No 1mg mg capsule 0-05 00:00: 00 Latuda 20 2020-1 No 1mg mg tablet 0-05 00:00: 00 Zoloft 100 2020-1 No 1mg mg tablet 0-05 00:00: 00 Latuda 40 2020-1 No 1mg mg tablet 0-05 00:00: 00 Vistaril 25 2020-1 No 1mg mg capsule 0-05 00:00: 00 Vistaril 25 2020-1 No 1mg mg capsule 0-05 00:00: 00 Flagyl 500 1-0 No 1mg mg tablet 9-20 00:00: 00 Flagyl 500 0 No 1mg mg tablet 05-10 00:00: 00 Flagyl 500 No 1mg mg tablet 05-10 00:00: 00 ketorolac 2020- No 30mg 30 mg, Unive rs (TORADOL) 04-26 Slow IV ity of injection 22:00: 20:57 Push, [place] 30 mg 00 :00 ONCE, 1 Medical dose, [facility] 04/26/21 at 1700, Routine
membership coordinator approving Restricted medication : BLAYNE HAIRSTON ketorolac 2020- No 30mg 30 mg, Unive rs (TORADOL) 04-26 Slow IV ity of injection 22:00: 20:57 Push, [place] 30 mg 00 :00 ONCE, 1 Medical dose, [facility] 04/26/21 at 1700, Routine
membership coordinator approving Restricted medication : BLAYNE HAIRSTON morpHINE 2020- No 4mg 4 mg, Slow Un tracee injection 4 04-26 IV Push, ity of mg 20:30: 19:28 ONCE, 1 [place] 00 :00 dose, [facility] Medical 04/26/21 at Branch 1530, STAT morpHINE 2020- No 4mg 4 mg, Slow Un tracee injection 4 04-26 IV Push, ity of mg 20:30: 19:28 ONCE, 1 [place] 00 :00 dose, [facility] Medical 04/26/21 at Branch 1530, STAT ondansetron [...] at 999 Uni vers (NS) bolus 04-26 09-06 mL/hr, ity of infusion 18:30: 20:00 1,000 mL, [place] as 1,000 mL 00 :00 IV Medical Infusion, Branch ONCE, 1 dose, 04/26/21 at 1330, STAT NaCl 0.9% 2020- No 1000mL at 999 Uni vers (NS) bolus 04-26 09-06 mL/hr, ity of infusion 18:30: 20:00 1,000 mL, [place] 1,000 mL 00 :00 IV Medical Infusion, Branch ONCE, 1 dose, 04/26/21 at 1330, STAT clonazePAM 2020- No [id number] 1mg Take 1 Univers (KLONOPIN) 04-17 tablet by ity of 1 mg tablet 00:00: 04:59 mouth 3 [place] 00 :00 (three) Medical times [place] daily for 5 days. clonazePAM 2020- No [id number] 1mg Take 1 Univers (KLONOPIN) 04-17 tablet by ity of 1 mg tablet 00:00: 04:59 mouth 3 [place] 00 :00 (three) Medical times [place] daily for 5 days. TOPIRAMATE 0 2020- No Take by Uni vers (TOPAMAX 04-12 mouth. ity of ORAL) 01:13: 00:00 [place] 52 :00 [facility] Branch ARIPIPRAZOL 2020-0 2020- No Take by Un tracee E (ABILIFY 04-12 mouth. ity of ORAL) 01:13: 00:00 [place] 52 :00 [facility] Branch FLUOXETINE 2020-0 2020- No Take by Uni vers HCL (PROZAC 04-12 mouth. ity o f ORAL) 01:13: 00:00 [place] 52 :00 [facility] Branch Macrobid 2020-0 No 1mg 100 mg 1-29 capsule 00:00: 00 Macrobid 2020-0 No 1mg 100 mg 1-29 capsule 00:00: 00 Macrobid 2020-0 No 1mg 100 mg 1-29 capsule 00:00: 00 clindamycin 2019-1 No 1mg HCl 300 mg 0-29 capsule 00:00: 00 clindamycin 2019-1 No 1mg HCl 300 mg 0-29 capsule 00:00: 00 clindamycin 2019- No 1mg HCl 300 mg 0-29 capsule 00:00: 00 traMADoL 2019- No 50mg 50 mg, Univer s (ULTRAM) 04-29 Oral, ONCE ity of tablet 50 19:30: 18:35 NOW, 1 [place] mg 00 :00 dose, [facility] Medical 04/29/20 at Branch 1430, Routine ketorolac 2019- No 15mg 15 mg, Unive rs (TORADOL) 04-29 Slow IV ity of injection 17:15: 16:31 Push, [place] 15 mg 00 :00 ONCE, 1 Medical dose, [facility] Branch 04/29/20 at 1215, PUSHPA
Fa [...] Indication s: acute pain clindamycin 2019- No [id number] 450mg Take 3 Univers 150 mg 04-29 capsules ity of capsule 00:00: 04:59 by mouth 3 [place] 00 :00 (three) Medical times Branch daily for 10 days. Bactrim DS 2020-0 No 1mg 800 mg-160 7-22 mg tablet 00:00: 00 clindamycin 2020-0 No 1mg HCl 300 mg 7-22 capsule 00:00: 00 Bactrim DS 2020-0 No 1mg 800 mg-160 7-22 mg tablet 00:00: 00 clindamycin 2020-0 No 1mg HCl 300 mg 7-22 capsule 00:00: 00 Bactrim DS 2020-0 No 1mg 800 mg-160 7-22 mg tablet 00:00: 00 clindamycin 2020-0 No 1mg HCl 300 mg 7-22 capsule 00:00: 00 clindamycin 2020-0 No 1mg HCl 300 mg 7-14 capsule 00:00: 00 clindamycin 2020-0 No 1mg HCl 300 mg 7-14 capsule 00:00: 00 clindamycin 2020-0 No 1mg HCl 300 mg 7-14 capsule 00:00: 00 mupirocin 2 2020-0 No 1% % topical 5-29 ointment 00:00: 00 ampicillin 2020-0 No 1mg 500 mg 5-29 capsule 00:00: 00 mupirocin 2 2020-0 No 1% % topical 5-29 ointment 00:00: 00 ampicillin 2020-0 No 1mg 500 mg 5-29 capsule 00:00: 00 mupirocin 2 2020-0 No 1% % topical 5-29 ointment 00:00: 00 ampicillin 2020-0 No 1mg 500 mg 5-29 capsule 00:00: 00 amoxicillin 2020-0 No 1mg 500 mg 4-03 tablet 00:00: 00 omeprazole 2020-0 No 1mg 40 mg 4-03 capsule,del 00:00: ayed 00 release amoxicillin 2020-0 No 1mg 500 mg 4-03 tablet 00:00: 00 omeprazole 2020-0 No 1mg 40 mg 4-03 capsule,del 00:00: ayed 00 release amoxicillin 2020-0 No 1mg 500 mg 4-03 tablet 00:00: 00 omeprazole 2020-0 No 1mg 40 mg 4-03 capsule,del 00:00: ayed 00 release metronidazo 2019-1 No 4mg le 500 mg 2-23 tablet 00:00: 00 metronidazo 2019-1 No 4mg le 500 mg 2-23 tablet 00:00: 00 metronidazo 2019-1 No 4mg le 500 mg 2-23 tablet 00:00: 00 azithromyci 2019-1 No 4mg n 250 mg 2-17 tablet 00:00: 00 azithromyci 2019-1 No 4mg n 250 mg 2-17 tablet 00:00: 00 azithromyci 2019-1 No 4mg n 250 mg 2-17 tablet 00:00: 00 metronidazo 2019-1 No 1mg le 500 mg 2-12 tablet 00:00: 00 metronidazo 2019-1 No 1mg le 500 mg 2-12 tablet 00:00: 00 metronidazo 2019-1 No 1mg le 500 mg 2-12 tablet 00:00: 00 ketorolac 2019- No 60mg 60 mg, Unive rs (TORADOL) 03-19 Intramuscu ity of injection 05:45: 04:35 [place], ONCE, [place] 60 mg 00 :00 1 dose, Medical Tue Branch 03/19/19 at 0045, PUSHPA
Fa culty member approving Restricted medication : Vonda AGUILA ibuprofen Yes [id number] 600mg Take 1 U nivers 600 mg 7-29 tablet by ity of tablet 00:00: mouth [place] 00 every 6 Medical (six) Branch hours as needed for Pain (scale 4-6). ibuprofen Yes [id number] 600mg Take 1 U nivers 600 mg 7-29 tablet by ity of tablet 00:00: mouth [place] 00 every 6 Medical (six) Branch hours as needed for Pain (scale 4-6). ibuprofen Yes [id number] 600mg Take 1 U nivers 600 mg 7-29 tablet by ity of tablet 00:00: mouth [place] 00 every 6 Medical (six) Branch hours as needed for Pain (scale 4-6). ibuprofen Yes [id number] 600mg Take 1 U nivers 600 mg 7-29 tablet by ity of tablet 00:00: mouth [place] 00 every 6 Medical (six) Branch hours as needed for Pain (scale 4-6). ibuprofen 2020- No [id number] 600mg Take 1 [facility] 600 mg 7-29 08-22 tablet by ity of tablet 00:00: 00:00 mouth [place] 00 :00 every 6 Medical (six) Branch hours as needed for Pain (scale 4-6). TRAZODONE Yes Take by Unive rs HCL 4-26 mouth. ity of (TRAZODONE 18:29: [place] ORAL) 35 Medical Branch PROPRANOLOL 2019-0 Yes Take by Uni vers HCL 4-26 mouth. ity of (PROPRANOLO 18:29: [place] L ORAL) 35 Medical Branch HYDROXYZINE 2018-0 Yes Take by Uni vers HCL ORAL 4-26 mouth. ity of 18:29: [place] 35 Medical Branch DULOXETINE 2019-0 Yes Take by Univ ers HCL 4-26 mouth. ity of (CYMBALTA 18:29: [place] ORAL) 35 Medical Branch ARIPIPRAZOL Yes Take by Uni vers E (ABILIFY 4-26 mouth. ity of ORAL) 18:29: [place] [address] Medical Branch TRAZODONE Yes Take by Unive rs HCL 4-26 mouth. ity of (TRAZODONE 18:29: [place] ORAL) Medical Branch PROPRANOLOL Yes Take by Uni vers HCL 4-26 mouth. ity of (PROPRANOLO 18:29: [place] L ORAL) Medical Branch HYDROXYZINE Yes Take by Uni vers HCL ORAL 4-26 mouth. ity of 18:29: [place] [address] Medical Branch DULOXETINE Yes Take by Univ ers HCL 4-26 mouth. ity of (CYMBALTA 18:29: [place] ORAL) Medical Branch ARIPIPRAZOL Yes Take by Uni vers E (ABILIFY 4-26 mouth. ity of ORAL) 18:29: [place] [address] Medical Branch TRAZODONE Yes Take by Unive rs HCL 4-26 mouth. ity of (TRAZODONE 18:29: [place] ORAL) Medical Branch PROPRANOLOL Yes Take by Uni vers HCL 4-26 mouth. ity of (PROPRANOLO 18:29: [place] L ORAL) Medical Branch HYDROXYZINE Yes Take by Uni vers HCL ORAL 4-26 mouth. ity of 18:29: [address] Branch DULOXETINE Yes Take by Univ ers HCL 4-26 mouth. ity of (CYMBALTA 18:29: [place] ORAL) Medical Branch ARIPIPRAZOL Yes Take by Uni vers E (ABILIFY 4-26 mouth. ity of ORAL) 18:29: [place] [address] Medical Branch TRAZODONE Yes Take by Unive rs HCL 4-26 mouth. ity of (TRAZODONE 18:29: [place] ORAL) Medical Branch PROPRANOLOL Yes Take by Uni vers HCL 4-26 mouth. ity of (PROPRANOLO 18:29: [place] L ORAL) Medical Branch HYDROXYZINE Yes Take by Uni vers HCL ORAL 4-26 mouth. ity of 18:29: [address] Branch DULOXETINE Yes Take by Univ ers HCL 4-26 mouth. ity of (CYMBALTA 18:29: [place] ORAL) 35 Medical Branch ARIPIPRAZOL Yes Take by Uni vers E (ABILIFY 4-26 mouth. ity of ORAL) 18:29: [place] 35 Medical Branch TRAZODONE Yes Take by Unive rs HCL 4-26 mouth. ity of (TRAZODONE 18:29: [place] ORAL) 35 Medical Branch PROPRANOLOL Yes Take by Uni vers HCL 4-26 mouth. ity of (PROPRANOLO 18:29: [place] L ORAL) 35 Medical Branch HYDROXYZINE Yes Take by Uni vers HCL ORAL 4-26 mouth. ity of 18:29: [place] [address] Medical Branch DULOXETINE Yes Take by Univ ers HCL 4-26 mouth. ity of (CYMBALTA 18:29: [place] ORAL) Medical Branch TRAZODONE Yes Take by Unive rs HCL 4-26 mouth. ity of (TRAZODONE 18:29: [place] ORAL) Medical Branch PROPRANOLOL Yes Take by Uni vers HCL 4-26 mouth. ity of (PROPRANOLO 18:29: [place] L ORAL) Medical Branch HYDROXYZINE Yes Take by Uni vers HCL ORAL 4-26 mouth. ity of 18:29: [place] [address] Medical Branch DULOXETINE Yes Take by Univ ers HCL 4-26 mouth. ity of (CYMBALTA 18:29: [place] ORAL) Medical Branch TRAZODONE Yes Take by Unive rs HCL 4-26 mouth. ity of (TRAZODONE 18:29: [place] ORAL) Medical Branch PROPRANOLOL Yes Take by Uni vers HCL 4-26 mouth. ity of (PROPRANOLO 18:29: [place] L ORAL) Medical Branch HYDROXYZINE Yes Take by Uni vers HCL ORAL 4-26 mouth. ity of 18:29: [place] [address] Medical Branch DULOXETINE Yes Take by Univ [...] HCL ORAL 4-26 mouth. ity of 18:29: [place] 35 Medical Branch DULOXETINE Yes Take by Univ ers HCL 4-26 mouth. ity of (CYMBALTA 18:29: [place] ORAL) 35 Medical Branch TRAZODONE Yes Take by Unive rs HCL 4-26 mouth. ity of (TRAZODONE 18:29: [place] ORAL) 35 Medical Branch PROPRANOLOL Yes Take by Uni vers HCL 4-26 mouth. ity of (PROPRANOLO 18:29: [place] L ORAL) 35 Medical Branch HYDROXYZINE Yes [...] HCL 4-26 mouth. ity of (PROPRANOLO 18:29: [place] L ORAL) 35 Medical Branch HYDROXYZINE Yes Take by Uni vers HCL ORAL 4-26 mouth. ity of 18:29: [place] 35 Medical Branch DULOXETINE Yes Take by Univ ers HCL 4-26 mouth. ity of (CYMBALTA 18:29: [place] ORAL) 35 Medical Branch TRAZODONE Yes Take by Unive rs HCL 4-26 mouth. ity of (TRAZODONE 13:29: [place] ORAL) 35 Medical Branch PROPRANOLOL Yes Take by Uni vers HCL 4-26 mouth. ity of (PROPRANOLO 13:29: [place] L ORAL) 35 Medical Branch HYDROXYZINE Yes Take by Uni vers HCL ORAL 4-26 mouth. ity of 13:29: [place] [address] Medical Branch DULOXETINE Yes Take by Univ [...] HCL ORAL 4-26 mouth. ity of 13:29: [place] [address] Medical Branch DULOXETINE Yes Take by Univ ers HCL 4-26 mouth. ity of (CYMBALTA 13:29: [place] ORAL) 35 Medical Branch TRAZODONE Yes Take by Unive rs HCL 4-26 mouth. ity of (TRAZODONE 13:29: [place] ORAL) 35 Medical Branch PROPRANOLOL Yes Take by Uni vers HCL 4-26 mouth. ity of (PROPRANOLO 13:29: [place] L ORAL) 35 Medical Branch HYDROXYZINE Yes Take by Uni vers HCL ORAL 4-26 mouth. ity of 13:29: [place] [address] Medical Branch DULOXETINE Yes Take by Univ ers HCL 4-26 mouth. ity of (CYMBALTA 13:29: [place] ORAL) 35 Medical Branch TRAZODONE Yes Take by Unive rs HCL 4-26 mouth. ity of (TRAZODONE 13:29: [place] ORAL) 35 Medical Branch PROPRANOLOL Yes Take by Uni vers HCL 4-26 mouth. ity of (PROPRANOLO 13:29: [place] L ORAL) 35 Medical Branch HYDROXYZINE Yes Take by Uni vers HCL ORAL 4-26 mouth. ity of 13:29: [place] [address] Medical Branch DULOXETINE Yes Take by Univ [...] HCL ORAL 4-26 mouth. ity of 13:29: [place] 35 Medical Branch DULOXETINE Yes Take by [...] HCL ORAL 4-26 mouth. ity of 13:29: [place] [address] Medical Branch DULOXETINE Yes Take by Univ ers HCL 4-26 mouth. ity of (CYMBALTA 13:29: [place] ORAL) 35 Medical Branch Miscellaneo Yes [id number] [facility] 12-14 9104 EXTREMITY ity of Supply Misc 00:00: PROSTHES [place] 00 NOS, Left Medical bka, needs Branch new prosthesis and supplies Miscellaneo Yes [id number] [facility] 12-14 9104 EXTREMITY ity of Supply Misc 00:00: [place]OSTHES [place] 00 NOS, Left Medical bka, needs Branch new prosthesis and supplies Miscellaneo 2019-0 [id number] [facility] 12-14 9104 EXTREMITY ity of Supply Misc 00:00: PROSTHES [place] 00 NOS, Left Medical bka, needs Branch new prosthesis and supplies Miscellaneo 2019-0 Yes [id number] [facility] 12-14 9104 EXTREMITY ity of Supply Misc 00:00: PROSTHES [place] 00 NOS, Left Medical bka, needs Branch new prosthesis and supplies Miscellaneo 2019-0 2021- No [id number] [facility] 12-14- 9104 EXTREMITY ity of Supply Misc 00:00: 00:00 PROSTHES [place] 00 :00 NOS, Left Medical bka, needs Branch new prosthesis and supplies TOPIRAMATE 2019-0 Yes Take by Univ ers (TOPAMAX 4-19 mouth. ity of ORAL) 01:22: [address] TOPIRAMATE 2019-0 Yes Take by Univ ers (TOPAMAX 4-19 mouth. ity of ORAL) 01:22: [address] TOPIRAMATE 2019-0 Yes Take by Univ ers (TOPAMAX 4-19 mouth. ity of ORAL) 01:22: [address] TOPIRAMATE 2019-0 Yes Take by Univ ers (TOPAMAX 4-19 mouth. ity of ORAL) 01:22: [address] acetaminoph 2019-0 Yes [id number] 1{tbl} Take 1 Univers en-codeine 4-18 tablet by ity of (TYLENOL-CO 00:00: mouth [place] DEINE #3) 00 every 4 Medical 300-30 mg (four) Branch tablet hours as needed for Pain (scale 7-10). cephALEXin 2019 Yes [id number] 250mg Take 1 Univers (KEFLEX) 4-18 capsule by ity o f 250 mg 00:00: mouth [place] capsule 00 every 6 Medical (six) Branch hours. acetaminoph 2019-0 Yes [id number] 1{tbl} Take 1 Univers en-codeine 4-18 tablet by ity of (TYLENOL-CO 00:00: mouth [place] DEINE #3) 00 every 4 Medical 300-30 mg (four) Branch tablet hours as needed for Pain (scale 7-10). cephALEXin Yes [id number] 250mg Take 1 Univers (KEFLEX) 4-18 capsule by ity o f 250 mg 00:00: mouth [place] capsule 00 every 6 Medical (six) Branch hours. acetaminoph Yes [id number] 1{tbl} Take 1 Univers en-codeine 4-18 tablet by ity of (TYLENOL-CO 00:00: mouth [place] DEINE #3) 00 every 4 Medical 300-30 mg (four) Branch tablet hours as needed for Pain (scale 7-10). cephALEXin Yes [id number] 250mg Take 1 Univers (KEFLEX) 4-18 capsule by ity o f 250 mg 00:00: mouth [place] capsule 00 every 6 Medical (six) Branch hours. acetaminoph Yes [id number] 1{tbl} Take 1 Univers en-codeine 4-18 tablet by ity of (TYLENOL-CO 00:00: mouth [place] DEINE #3) 00 every 4 Medical 300-30 mg (four) Branch tablet hours as needed for Pain (scale 7-10). cephALEXin Yes [id number] 250mg Take 1 Univers (KEFLEX) 4-18 capsule by ity o f 250 mg 00:00: mouth [place] capsule 00 every 6 Medical (six) Branch hours. acetaminoph 2020- No [id number] 1{tbl} Take 1 Univers en-codeine 4-18 08-22 tablet by ity of (TYLENOL-CO 00:00: 00:00 [place] DEINE #3) 00 :00 every 4 Medical 300-30 mg (four) Branch tablet hours as needed for Pain (scale 7-10). cephALEXin 2020- No [id number] 250mg Take 1 Univers (KEFLEX) 4-18 08-22 capsule by ity of 250 mg 00:00: 00:00 mouth [place] capsule 00 :00 every 6 Medical (six) Branch hours. ibuprofen 2019- No [id number] 600mg Take 1 Univers 600 mg 10-29- 3 tablet by ity of tablet 00:00: 00:00 mouth [place] 00 :00 every 6 Medical (six) Branch hours as needed for Pain (scale 4-6). sulfamethox 2018-0 Yes [id number] 1{tbl} Take 1 Univers azole-trime 2-12 tablet by ity of thoprim 00:00: mouth [place] 800-160 mg 00 every 12 Medic al per tablet (twelve) Branc h hours. sulfamethox 2019- Yes [id number] 1{tbl} Take 1 Univers azole-trime 2-12 tablet by ity of thoprim 00:00: mouth [place] 800-160 mg 00 every 12 Medic al per tablet (twelve) Branc h hours. sulfamethox 2019- Yes [id number] 1{tbl} Take 1 Univers azole-trime 2-12 tablet by ity of thoprim 00:00: mouth [place] 800-160 mg 00 every 12 Medic al per tablet (twelve) Branc h hours. sulfamethox 2019- Yes [id number] 1{tbl} Take 1 Univers azole-trime 2-12 tablet by ity of thoprim 00:00: mouth [place] 800-160 mg 00 every 12 Medic al per tablet (twelve) Branc h hours. sulfamethox 2019-1- No [id number] 1{tbl} Take 1 Univers azole-trime 2-12 - tablet by it y of thoprim 00:00: 00:00 mouth [place] 800-160 mg 00 :00 every 12 Medic al per tablet (twelve) Branc h hours. FLUOXETINE Yes Take by [facility] ers HCL (PROZAC 6-27 mouth. ity of ORAL) 17:12: [address] FLUOXETINE 2017- Yes Take by [facility] ers HCL (PROZAC 6-27 mouth. ity of ORAL) 17:12: [address] FLUOXETINE 2017- Yes Take by [facility] ers HCL (PROZAC 6-27 mouth. ity of ORAL) 17:12: [address] FLUOXETINE 2017- Yes Take by [facility] ers HCL (PROZAC 6-27 mouth. ity of ORAL) 17:12: [address] pantoprazol 2017- Yes [id number] 40mg Take 1 Univers e 6-27 tablet by ity of (PROTONIX) 00:00: mouth [place] 40 [place] EC 00 (two) Medical tablet times Branch daily. fluticasone 2017- Yes [id number] 2{spray Use 2 Univers 50 6-27 } Sprays in ity of mcg/actuati 00:00: each [place] on nasal 00 nostril Medical spray daily. Branch pantoprazol Yes [id number] 40mg Take 1 Univers e 6-27 tablet by ity of (PROTONIX) 00:00: mouth [place] 40 mg EC 00 (two) Medical tablet times Branch daily. fluticasone Yes [id number] 2{spray Use 2 Univers 50 6-27 } Sprays in ity of mcg/actuati 00:00: each [place] on nasal 00 nostril Medical spray daily. Branch pantoprazol Yes [id number] 40mg Take 1 Univers e 6-27 tablet by ity of (PROTONIX) 00:00: mouth [place] 40 mg EC 00 (two) Medical tablet times Branch daily. fluticasone Yes [id number] 2{spray Use 2 Univers 50 6-27 } Sprays in ity of mcg/actuati 00:00: each [place] on nasal 00 nostril Medical spray daily. Branch pantoprazol Yes [id number] 40mg Take 1 Univers e 6-27 tablet by ity of (PROTONIX) 00:00: mouth [place] 40 mg EC 00 (two) Medical tablet times Branch daily. fluticasone Yes [id number] 2{spray Use 2 Univers 50 6-27 } Sprays in ity of mcg/actuati 00:00: each [place] on nasal 00 nostril Medical spray daily. Branch pantoprazol 2020- No [id number] 40mg Take 1 Univers e 6-27 08-22 tablet by ity of (PROTONIX) 00:00: 00:00 mouth 2 [place] 40 mg EC 00 :00 (two) Medical tablet times Branch daily. fluticasone 2020- No [id number] 2{spray Use 2 Univers 50 6-27 08-22 [...] times Branch daily with meals. metoclopram Yes [id number] 1 tab U nivers arianne HCl 10 5-25 every 4hr ity of mg tablet 00:00: as needed [place] 00 for nausea Medical Branch metoclopram Yes [id number] 1 tab U nivers arianne HCl 10 5-25 every 4hr ity of mg tablet 00:00: as needed [place] 00 for nausea Medical Branch metoclopram Yes [id number] 1 tab U nivers arianne HCl 10 5-25 every 4hr ity of mg tablet 00:00: as needed [place] 00 for nausea Medical Branch metoclopram Yes [id number] 1 tab U nivers arianne HCl 10 5-25 every 4hr ity of mg tablet 00:00: as needed [place] 00 for nausea Medical Branch metoclopram 2020- No [id number] 1 tab Univers arianne HCl 10 5-25 08-22 every 4hr ity of mg tablet 00:00: 00:00 [place] 00 :00 for nausea Medical Branch phenazopyri Yes 200mg Take 1 Uni vers dine [...] Nausea and Vomiting (N/V). acetaminoph 2018-0 Yes [id number] 1{tbl} Take 1-2 Univers en-codeine 5-01 tablets by ity of 300-30 mg 00:00: mouth [place] tablet 00 every 6 Medical (six) Branch hours as needed for Pain (scale 4-6) or Pain (scale 7-10) (for breakthrou gh pain). acetaminoph Yes [id number] 1{tbl} Take 1-2 Univers en-codeine 5-01 tablets by ity of 300-30 mg 00:00: mouth [place] tablet 00 every 6 Medical (six) Branch hours as needed for Pain (scale 4-6) or Pain (scale 7-10) (for breakthrou gh pain). acetaminoph Yes [id number] 1{tbl} Take 1-2 Univers en-codeine 5-01 tablets by ity of 300-30 mg 00:00: mouth [place] tablet 00 every 6 Medical (six) Branch hours as needed for Pain (scale 4-6) or Pain (scale 7-10) (for breakthrou gh pain). acetaminoph Yes [id number] 1{tbl} Take 1-2 Univers en-codeine 5-01 tablets by ity of 300-30 mg 00:00: mouth [place] tablet 00 every 6 Medical (six) Branch hours as needed for Pain (scale 4-6) or Pain (scale 7-10) (for breakthrou gh pain). acetaminoph 2020- No [id number] 1{tbl} Take 1-2 Univers en-codeine 5-01 08-22 tablets by it y of 300-30 mg 00:00: 00:00 mouth [place] tablet 00 :00 every 6 Medical (six) Branch hours as needed for Pain (scale 4-6) or Pain (scale 7-10) (for breakthrou gh pain). meclizine Yes [id number] 25mg Take 1 U nivers 25 mg 3-30 tablet by ity of tablet 00:00: mouth 3 [place] 00 (three) Medical times Branch daily as needed for Dizziness. meclizine Yes [id number] 25mg Take 1 U nivers 25 mg 3-30 tablet by ity of tablet 00:00: mouth 3 [place] 00 (three) Medical times Branch daily as needed for Dizziness. meclizine Yes [id number] 25mg Take 1 U nivers 25 mg 3-30 tablet by ity of tablet 00:00: mouth 3 [place] 00 (three) Medical times Branch daily as needed for Dizziness. meclizine Yes [id number] 25mg Take 1 U nivers 25 mg 3-30 tablet by ity of tablet 00:00: mouth 3 [place] 00 (three) Medical times Branch daily as needed for Dizziness. meclizine 2020- No [id number] 25mg Take 1 Univers 25 mg 3-30 [...] No 1{bottl Use 1 Univers chlor-bicar 2-10 -22 e} Bottle in it y of b-squeez [...] needed for Nausea and Vomiting (N/V). ondansetron No 4mg Take 1 Uni vers (ZOFRAN 1-24 08-22 tablet by ity of ODT) 4 mg 00:00: 00:00 mouth [place] disintegrat 00 :00 every 8 Medic al ing tablet (eight) Branch hours as needed for Nausea and Vomiting (N/V). hydrOXYzine 2016-08 Yes anxiety 25mg Q.25D Take [...] MG 15:00: nightly. Medical tablet 29 Center DULoxetine 2016-08 Yes anxiety 30mg QD Take [...] MG 15:00: mouth Medical tablet 29 nightly. [place] ARIPiprazol 2016-08 Yes 15mg QD Take [address] [facility] (ABILIFY) 1-26 by mouth [facility] 15 MG 15:00: nightly. Medical tablet 29 Center DULoxetine 2016-08 Yes anxiety 30mg QD Take [...] MG 15:00: nightly. Medical tablet 29 Center DULoxetine 2016-08 Yes anxiety 30mg QD Take [...] MG 15:00: mouth Medical tablet 29 nightly. [place] ARIPiprazol 2016-08 Yes 15mg QD Take [address] [facility] (ABILIFY) - by mouth [facility] 15 MG 15:00: nightly. Medical tablet 29 [place] DULoxetine 2016-08 Yes anxiety 30mg QD Take [address] [facility] [address] (CYMBALTA) 1-26 with by mouth [facility] 30 MG 15:00: depression daily. [facility] mary ann capsule 29 [place] topiramate 2016-08 Yes 100mg Q.5D Take [address] (TOPAMAX) 1-26 mg by [facility] 100 MG 15:00: mouth 2 Medical tablet 29 (two) Center times daily. omeprazole 2016-08 Yes gastroesoph 40mg QD Take [address] [facility] (PRILOSEC) 1-26 ageal by mouth [facility] 40 MG 15:00: reflux daily. Medical capsule 29 disease Center metroNIDAZO 2016-08 Yes 500mg Take 1 [...] ity o f tablet 00:00: mouth 2 00 (two) Medical times Branch daily. metroNIDAZO [...] 00 :00 (two) Medical times Branch daily. Butalbital Yes 1{capsu Take 1 U nivers [...] capsule needed for Pain (scale 4-6). ibuprofen 2014-0 Yes Tooth 800mg Take 4 Anette is (MOTRIN) 8-31 infection tablets by Health 200 mg 00:00: mouth [place] 00 every 6 hours as needed for Pain. ibuprofen 2014-0 Yes Tooth 800mg Take 4 [facility] is (MOTRIN) 8-31 infection tablets by Health 200 mg 00:00: mouth [place] 00 every 6 hours as needed for Pain. ibuprofen 2014-0 Yes Tooth 800mg Take 4 [facility] is (MOTRIN) 8-31 infection tablets by Health 200 mg 00:00: mouth [place] 00 every 6 hours as needed for Pain. ibuprofen 2014-0 Yes Tooth 800mg Take 4 [place] is (MOTRIN) 8-31 infection tablets by Health 200 mg 00:00: mouth [place] 00 every 6 hours as needed for Pain. ARIPIPRAZOL 2014-0 Yes Take by Ebnjamín ris E (ABILIFY 8-27 mouth. Health OR) 13:48: 28 DULOXETINE 2014-0 Yes Take by Anette is HCL 8-27 mouth. Health (CYMBALTA 13:48: OR) 28 TOPIRAMATE 2014-0 Yes Take by Anette is (TOPAMAX 8-27 mouth. Health OR) 13:48: 28 TRAZODONE 2014-0 Yes Take by Harri s HCL 8-27 mouth. Health (TRAZODONE 13:48: OR) 28 PROPRANOLOL 2014-0 Yes Take by Benjamín ris HCL 8-27 mouth. Health (PROPRANOLO 13:48: L OR) 28 HYDROXYZINE 0 Yes Take by Benjamín ris HCL OR 8-27 mouth. Health 13:48: 28 ARIPIPRAZOL 2014-0 Yes Take by Benjamín ris E (ABILIFY 8-27 mouth. Health OR) 13:48: 28 DULOXETINE 2014-0 Yes Take by Anette is HCL 8-27 mouth. Health (CYMBALTA 13:48: OR) 28 TOPIRAMATE 2015-0 Yes Take by Anette is (TOPAMAX 8-27 mouth. Health OR) 13:48: 28 TRAZODONE 2015-0 Yes Take by Harri s HCL 8-27 mouth. Health (TRAZODONE 13:48: OR) 28 PROPRANOLOL 2014-0 Yes Take by Benjamín ris HCL 8-27 mouth. Health (PROPRANOLO 13:48: L OR) 28 HYDROXYZINE 2015-0 Yes Take by Benjamín ris HCL OR 8-27 mouth. Health 13:48: 28 ARIPIPRAZOL 2014-0 Yes Take by Benjamín ris E (ABILIFY 8-27 mouth. Health OR) 13:48: 28 DULOXETINE 2014-0 Yes Take by Anette is HCL 8-27 mouth. Health (CYMBALTA 13:48: OR) 28 TOPIRAMATE 2014-0 Yes Take by Anette is (TOPAMAX 8-27 mouth. Health OR) 13:48: 28 TRAZODONE 2015-0 Yes Take by Harri s HCL 8-27 mouth. Health (TRAZODONE 13:48: OR) 28 PROPRANOLOL 2014-0 Yes Take by Benjamín ris HCL 8-27 mouth. Health (PROPRANOLO 13:48: L OR) 28 HYDROXYZINE 2014-0 Yes Take by Benjamín ris HCL OR 8-27 mouth. Health 13:48: 28 ARIPIPRAZOL 2014-0 Yes Take by Benjamín ris E (ABILIFY 8-27 mouth. Health OR) 13:48: 28 DULOXETINE 2014-0 Yes Take by Anette is HCL 8-27 mouth. Health (CYMBALTA 13:48: OR) 28 TOPIRAMATE 2014-0 Yes Take by Anette is (TOPAMAX 8-27 mouth. Health OR) 13:48: 28 TRAZODONE 2014-0 Yes Take by Harri s HCL 8-27 mouth. Health (TRAZODONE 13:48: OR) 28 PROPRANOLOL 2014-0 Yes Take by Benjamín ris HCL 8-27 mouth. Health (PROPRANOLO 13:48: L OR) 28 HYDROXYZINE 2014-0 Yes Take by Benjamín ris HCL OR 8-27 mouth. Health 13:48: 28 budesonide- 2014-0 Yes Unspecified 2{puff} Q.5D Inhale 2 Krishnamurthy formoterol 04-16 chronic Puffs by He alth (SYMBICORT) 00:00: bronchitis mouth 2 80-4.5 00 times mcg/actuati daily on inhaler Rinse mouth after each use.. budesonide- 2014-0 Yes Unspecified 2{puff} Q.5D Inhale 2 Krishnamurthy formoterol 04-16 chronic Puffs by He alth (SYMBICORT) 00:00: bronchitis mouth 2 80-4.5 00 times mcg/actuati daily on inhaler Rinse mouth after each use.. budesonide- Yes Unspecified 2{puff} Q.5D Inhale 2 Krishnamurthy formoterol 8-27 chronic Puffs by He alth (SYMBICORT) 00:00: bronchitis mouth 2 80-4.5 00 times mcg/actuati daily on inhaler Rinse mouth after each use.. budesonide- 2014-0 Yes Unspecified 2{puff} Q.5D Inhale 2 Krishnamurthy formoterol 8-27 chronic Puffs by He alth (SYMBICORT) 00:00: bronchitis mouth 2 80-4.5 00 times mcg/actuati daily on inhaler Rinse mouth after each use.. Vital Signs Vital Name Observation Time Observation Value Comments Source Systolic blood 2021-10-10 17:08:00 136 mm[Hg] Univer sity [facility] Diastolic blood 2021-10-10 17:08:00 86 mm[Hg] Unive [facility] Heart rate 2021-10-10 17:08:00 78 /min [facility] Body temperature 2021-10-10 17:08:00 36.5 Michell [facility] Respiratory rate 2021-10-10 17:08:00 16 /min [facility] Body height 2021-10-10 17:08:00 172.7 cm [facility] Body weight 2021-10-10 17:08:00 83.915 kg [facility] BMI 2021-10-10 17:08:00 28.13 kg/m2 [facility] Oxygen saturation in 2021-10-10 17:08:00 99 /min [facility] Arterial blood by [facility] Pulse oximetry Branch Systolic blood 2021-10-01 03:09:00 144 mm[Hg] Univer sity [facility] Diastolic blood 2021-10-01 03:09:00 87 mm[facility]Hg[facility] 2021-10-01 03:09:00 87 /min [facility] Body temperature 2021-10-01 03:09:00 36.72 Michell [facility] Respiratory rate 2021-10-01 03:09:00 20 /min [facility] Body height 2021-10-01 03:09:00 172.7 cm [facility] [place] [facility] Body weight 2021-10-01 03:09:00 81.647 kg [facility] [place] [facility] BMI 2021-10-01 03:09:00 27.37 kg/m2 [facility] [place] [facility] Oxygen saturation in 2021-10-01 03:09:00 98 /min University of Arterial blood by [facility] mary ann Pulse oximetry Branch Systolic blood 2021-09-17 06:40:00 103 mm[Hg] Univer sity of pressure [place] [facility] Diastolic blood 2021-09-17 06:40:00 60 mm[Hg] Unive rsity of pressure [place] [facility] Heart rate 2021-09-17 06:40:00 64 /min [facility] [place] [facility] Oxygen saturation in 2021-09-17 06:40:00 97 /min University of Arterial blood by [facility] Pulse oximetry Branch Body temperature 2021-09-17 03:46:00 36.94 [facility]hell [facility] [place] [facility] Respiratory rate 2021-09-17 03:46:00 18 /min [facility] [place] [facility] Body height 2021-09-17 03:46:00 172.7 cm [facility] [place] [facility] Body weight 2021-09-17 03:46:00 84.823 kg [facility] [place] [facility] BMI 2021-09-17 03:46:00 28.43 kg/m2 [facility] [place] [facility] Systolic blood 2021-09-15 19:50:00 129 mm[Hg] Univer sity of pressure [place] [facility] Diastolic blood 2021-09-15 19:50:00 75 mm[Hg] Unive rsity of pressure [place] [facility] Heart rate 2021-09-15 19:50:00 80 /min [facility] [place] [facility] Oxygen saturation in 2021-09-15 19:50:00 99 /min University of Arterial blood by [facility] Pulse oximetry Branch Body temperature 2021-09-15 18:37:00 37.06 [facility] [place] [facility] Respiratory rate 2021-09-15 18:37:00 18 /min [facility] [place] [facility] Body height 2021-09-15 18:37:00 172.7 cm [facility] [place] [facility] Body weight 2021-09-15 18:37:00 84.823 kg Universi ty of [facility] BMI 2021-09-15 18:37:00 28.43 kg/m2 [facility] Systolic blood 2021-08-21 22:49:00 142 mm[Hg] [facility] Diastolic blood 2021-08-21 22:49:00 89 mm[Hg] [facility]ive rs[facility] Heart rate 2021-08-21 22:49:00 71 /min [facility] Oxygen saturation in 2021-08-21 22:49:00 99 /min [facility] blood by [place] [facility] Pulse oxim[facility] Body temperature 2021-08-21 21:55:00 36.61 Michell [facility] Respiratory rate 2021-08-21 21:55:00 18 /min [facility] Body weight 2021-08-21 21:55:00 81.647 kg [facility] BMI 2021-08-21 21:55:00 27.37 kg/m2 [facility] Systolic blood 2021-04-26 22:15:00 113 mm[Hg] [facility] Diastolic blood 2021-04-26 22:15:00 79 mm[Hg] [facility] Heart rate 2021-04-26 22:15:00 59 /min [facility] Respiratory rate 2021-04-26 22:15:00 13 /min [facility] Oxygen saturation in 2021-04-26 22:15:00 99 /min [facility] by [place] [facility] Body temperature 2021-04-26 17:03:00 36.72 Michell [facility] Body weight 2021-04-26 17:03:00 90.719 kg [facility] BMI 2021-04-26 17:03:00 30.41 kg/m2 [facility] Systolic blood 2021-04-17 23:53:00 130 mm[Hg] [facility] Diastolic blood 2021-04-17 23:53:00 75 mm[Hg] [facility] Heart rate 2021-04-17 23:53:00 78 /min [facility] Body temperature 2021-04-17 23:53:00 36.94 Michell [facility] Respiratory rate 2021-04-17 23:53:00 20 /min [facility] Body weight 2021-04-17 23:53:00 90.719 kg [facility] BMI 2021-04-17 23:53:00 30.41 kg/m2 [facility] Oxygen saturation in 2021-04-17 23:53:00 100 /min [facility] by [place] [facility] Systolic blood 2021-04-12 00:15:00 167 mm[Hg] [facility] Diastolic blood 2021-04-12 00:15:00 106 mm[Hg] [facility] Heart rate 2021-04-12 00:15:00 89 /min [facility] Body temperature 2021-04-12 00:15:00 37.22 Michell [facility] Respiratory rate 2021-04-12 00:15:00 18 /min [facility] Body weight 2021-04-12 00:15:00 86.183 kg [facility] BMI 2021-04-12 00:15:00 28.89 kg/m2 [facility] Oxygen saturation in 2021-04-12 00:15:00 98 /min [facility] Arterial blood by [facility] mary ann Pulse oxim[facility] Systolic blood 2020-04-29 19:15:00 124 mm[Hg] [facility] Diastolic blood 2020-04-29 19:15:00 86 mm[Hg] [facility] Heart rate 2020-04-29 19:15:00 59 /min [facility] Respiratory rate 2020-04-29 19:15:00 17 /min [facility] Oxygen saturation in 2020-04-29 19:15:00 99 /min [facility] Arterial blood by [facility] mary ann P[facility] Body temperature 2020-04-29 15:43:00 37.11 Michell [facility] Body height 2020-04-29 15:43:00 172.7 cm [facility] Body weight 2020-04-29 15:43:00 86.183 kg [facility] BMI 2020-04-29 15:43:00 28.89 kg/m2 [facility] Systolic blood 2020-04-29 19:15:00 124 mm[Hg] [facility] Diastolic blood 2020-04-29 19:15:00 86 mm[Hg] [facility] Heart rate 2020-04-29 19:15:00 59 /min [facility] Respiratory rate 2020-04-29 19:15:00 17 /min [facility] Oxygen saturation in 2020-04-29 19:15:00 99 /min [facility] blood by [place] [facility] Body temperature 2020-04-29 15:43:00 37.11 Michell [facility] Body height 2020-04-29 15:43:00 172.7 cm [facility] Body weight 2020-04-29 15:43:00 86.183 kg [facility] BMI 2020-04-29 15:43:00 28.89 kg/m2 [facility] Systolic blood 2019-04-14 22:23:00 146 mm[Hg] [facility] Diastolic blood 2019-04-14 22:23:00 82 mm[Hg] [facility] Heart rate 2019-04-14 22:23:00 82 /min [facility] Body temperature 2019-04-14 22:23:00 36.72 Michell [facility] Respiratory rate 2019-04-14 22:23:00 18 /min [facility] Body weight 2019-04-14 22:23:00 90.719 kg [facility] BMI 2019-04-14 22:23:00 30.41 kg/m2 [facility] Oxygen saturation in 2019-04-14 22:23:00 98 /min [facility] blood by [place] [facility] Systolic blood [...] 98 /min [facility] [place] [facility] Pulse oximetry Branch Systolic blood 2019-03-19 04:00:00 122 mm[Hg] [facility] Diastolic blood 2019-03-19 04:00:00 78 mm[Hg] [facility] Heart rate 2019-03-19 04:00:00 68 /min [facility] Respiratory rate 2019-03-19 04:00:00 18 /min [facility] Oxygen saturation in 2019-03-19 04:00:00 97 /min [facility] by [place] [facility] Pulse oximetry Branch Body temperature 2019-03-19 03:28:00 36.67 Michell [facility] Body weight 2019-03-19 03:28:00 90.719 [...] 97 /min [facility] Arterial blood by [facility] Pulse oximetry Branch Body temperature 2019-03-19 03:28:00 36.67 Michell [facility] Body weight 2019-03-19 03:28:00 90.719 kg [facility] BMI 2019-03-19 03:28:00 30.41 kg/m2 [facility] BP Systolic 2022-05-10 13:39:00 117 mm[Hg] BP Diastolic 2022-05-10 13:39:00 80 mm[Hg] Weight Measured 2022-05-10 13:39:00 163.60 pounds Height Measured 2022-05-10 13:39:00 68.00 inches Body Temperature 2022-05-10 13:39:00 98.20 degrees Heart Rate 2022-05-10 13:39:00 80.00 /min Respiratory Rate 2022-05-10 13:39:00 24.00 /min BP Systolic 2022-03-22 11:02:00 168 mm[Hg] BP [...] Performed POCT TEST 2021-10-10 17:30:00 Pino Aldana [facility] CONSENT/REFUSAL FOR 2021-10-10 16:56:51 Doctor Unassigned, No Un [facility] DIAGNOSIS AND TREATMENT Name [facility] POCT TEST 2021-10-01 03:23:00 Katelyn Baker [facility] URINALYSIS 2021-10-01 03:17:00 Katelyn Baker [facility] NOTICE OF PRIVACY 2021-10-01 03:03:14 Doctor Unassigned, No [facility] CONSENT/REFUSAL FOR 2021-10-01 03:00:51 [facility] US OVARY TORSION 2021-09-17 05:52:50 Katherin Maurer [facility] NOTICE OF PRIVACY 2021-09-17 03:47:38 Doctor Unassigned, No [facility] CONSENT/REFUSAL FOR 2021-09-17 03:41:04 [facility], [facility] CT ABDOMEN PELVIS W 2021-09-15 19:51:50 Pino Aldana [facility] CONTRAST [facility] POCT TEST 2021-09-15 19:00:00 Pino Aldana [facility] LIPASE 2021-09-15 18:56:00 Pino Aldana [facility] COMP. METABOLIC PANEL 2021-09-15 18:56:00 Pino Aldana [facility] ([id number]) [facility] CBC WITH DIFF 2021-09-15 18:56:00 Pino Aldana [facility] URINALYSIS 2021-09-15 18:56:00 Katya Pino B [facility] COVID-19 (ID NOW RAPID 2021-09-15 18:56:00 Pino Aldana [facility] TESTING) [facility] CONSENT/REFUSAL FOR 2021-09-15 18:28:32 Doctor Unassigned, No Un [facility] DIAGNOSIS AND TREATMENT [facility] CT HEAD WO CONTRAST 2021-08-21 22:46:54 Katherin Maurer [facility] POCT TEST 2021-08-21 22:39:00 Katherin Maurer [facility] COMP. METABOLIC PANEL 2021-08-21 22:32:00 Katherin Maurer [facility] ([id number]) Medical Branch CBC WITH DIFF 2021-08-21 22:32:00 Katherin Maurer [facility] RAPID INFLUENZA A/B 2021-08-21 22:32:00 Katherin Maurer [facility] COVID-19 (ID NOW RAPID 2021-08-21 22:32:00 Katherin Maurer [facility] TESTING) Medical Branch CONSENT/REFUSAL FOR 2021-08-21 21:45:27 Doctor Unassigned, No Un [facility] DIAGNOSIS AND TREATMENT Name Medical Branch FREE T4 2021-04-26 20:43:00 Yovanny Blayne [facility] CREATINE KINASE 2021-04-26 20:41:00 Blayne Hairston [facility] MAGNESIUM 2021-04-26 20:41:00 Yovanny Blayne [facility] TROPONIN I 2021-04-26 20:41:00 Blayne Hairston [facility] COMP. METABOLIC PANEL 2021-04-26 20:41:00 Blayne Hairston [facility] ([id number]) Medical Branch SEDIMENTATION RATE 2021-04-26 19:33:00 Blayne Hairston [facility] CT CERVICAL SPINE WO 2021-04-26 19:00:47 Blayne Hairston [facility] CONTRAST [facility] CT HEAD WO CONTRAST 2021-04-26 19:00:47 Blayne Hairston [facility] COVID-19 (ID NOW RAPID 2021-04-26 18:30:00 Blayne Hairston [facility] TESTING) Medical Branch THYROID STIMULATING 2021-04-26 18:25:00 Blayne Hairston [facility] HORMONE [facility] Branch CBC WITH DIFF 2021-04-26 18:25:00 Blayne Hairston [facility] N-TERMINAL PRO-BNP 2021-04-26 18:25:00 Blayne Hairston [facility] POCT TEST 2021-04-26 18:24:00 Blayne Hairston [facility] URINALYSIS 2021-04-26 18:23:00 Blayne Hairston [facility] URINE DRUG (IMMUNOASSAY) 2021-04-26 18:23:00 Blayne Hairston [facility] SCREEN W/O REFLEX CONSENT/REFUSAL FOR 2021-04-26 16:29:45 Doctor Unassigned, No [facility] [place] [facility]REAT[facility] Name Medical Branch ASSIGNMENT OF BENEFITS 2021-04-18 01:01:09 Doctor Unassigned, No [facility] CONSENT/REFUSAL FOR 2021-04-17 23:47:56 Doctor Unassigned, No [facility] [place] DIAGNOSIS AND TREATMENT Name [facility] POCT TEST 2021-04-12 00:20:00 John Hinkle [facility] URINALYSIS 2021-04-12 00:18:00 John Hinkle [facility] CONSENT/REFUSAL FOR 2021-04-12 00:10:24 Doctor Unassigned, No [facility] [place] [facility] AND TREATMENT [facility] XR KNEE 3 VW LEFT 2020-04-29 16:37:20 Amaris Stallings [facility] COMP. METABOLIC PANEL 2020-04-29 16:30:00 Amaris Stallings [facility] ([id number]) [facility] CBC WITH DIFF 2020-04-29 16:30:00 Amaris Stallings [facility] POCT TEST 2020-04-29 16:24:00 Amaris Stallings [facility] RAPID STREP SCREEN FOR 2020-04-29 16:11:00 Amaris Stallings [facility] A [facility] NOTICE OF PRIVACY 2020-04-29 15:31:17 [facility] FOR 2020-04-29 15:31:01 Doctor Unassigned, No [facility] [place] [facility]RE[facility] POCT TEST 2019-03-19 04:24:00 Vonda Aguila [facility] NOTICE OF PRIVACY 2019-03-19 03:19:57 Doctor Unassigned, No Univ [facility] CONSENT/REFUSAL FOR 2019-03-19 03:19:41 Doctor Unassigned, No [facility] [place] [facility]REATMENT Name Medical Branch Plan of Care Planned Activity Planned Date Details Comments Source Future Scheduled 2022-05-21 IMM Influenza Krishnamurthy [facility] Test 00:00:00 Seasonal (>/= 19 yrs) [code = IMM Influenza Seasonal (>/= 19 yrs)] Future Scheduled 2022-05-21 IMM Influenza [facility] Test 00:00:00 Seasonal (>/= 19 yrs) [code = IMM Influenza Seasonal (>/= 19 yrs)] Future Scheduled 2022-05-21 IMM Influenza Krishnamurthy [facility] lt Test 00:00:00 Seasonal (>/= 19 yrs) [code = IMM Influenza Seasonal (>/= 19 yrs)] Future Scheduled 2022-04-20 COVID-19 VACCINE [facility] Test 10:42:49 (#1) [code = COVID-19 VACCINE (#1)] Future Scheduled 2022-04-20 Scre[facility] for [facility] Test 10:42:49 malignant neoplasm of cervix (procedure) [code = 716264376] Future Scheduled 2022-04-20 INFLUENZA VACCINE Method [facility] Test 10:42:49 [code = INFLUENZA VACCINE] Future Scheduled 2022-04-20 [facility] 10:42:49 VACCINES (1 of 3 - 3-dose series) [code = HEPATITIS B VACCINES (1 of 3 - 3-dose series)] Future Scheduled 2022-04-[address] INFLUENZA VACC[address] [facility] Test 10:42:49 [code = INFLUENZA VACCINE] Future Scheduled 2022-04-20 [facility] 10:42:49 VACCINES (1 of 3 - 3-dose series) [code = HEPATITIS B VACCINES (1 of 3 - 3-dose series)] Future Scheduled 2022-04-20 COVID-19 [facility]ACCINE [facility] Test 10:42:49 (#1) [code = COVID-19 VACCINE (#1)] Future Scheduled 2022-04-20 [facility] Test 10:42:49 malignant neoplasm of cervix (procedure) [code = 278074894] Future Scheduled 2022-04-20 COVID-19 [facility]ACCINE [facility] Test 10:42:49 (#1) [code = COVID-19 VACCINE (#1)] Future Scheduled 2022-04-20 [facility] Test 10:42:49 malignant neoplasm of cervix (procedure) [code = 723243870] Future Scheduled 2022-04-20 [facility] 10:42:49 [code = INFLUENZA VACCINE] Future Scheduled 2022-04-20 [facility] 10:42:49 VACCINES (1 of 3 - 3-dose series) [code = HEPATITIS B VACCINES (1 of 3 - 3-dose series)] Future Scheduled 2021-05-21 IMM Influenza [facility]:00 Seasonal May to October (>/= 19 yrs) [code = IMM Influenza Seasonal May to October (>/= 19 yrs)] Future Scheduled 2020-04-20 [facility] 00:00:00 malignant neoplasm of cervix (procedure) [code = 606704182] Future Scheduled 2020-04-20 [facility] 00:00:00 malignant neoplasm of cervix (procedure) [code = 669295091] Future Scheduled 2020-04-20 [facility] 00:00:00 malignant neoplasm of cervix (procedure) [code = 445832799] Future Scheduled 2020-04-20 [facility] 00:00:00 malignant neoplasm of cervix (procedure) [code = 300230844] Future Scheduled 2015 [facility] 00:00:00 malignant neoplasm of cervix (procedure) [code = 909072680] Future Scheduled 2015 [facility] 00:00:00 malignant neoplasm of cervix (procedure) [code = 475735710] Future Scheduled 2015 [facility] 00:00:00 malignant neoplasm of cervix (procedure) [code = 041621008] Future Scheduled 2015 [facility] 00:00:00 malignant neoplasm of cervix (procedure) [code = 909687653] Future Scheduled 1997 COVID-19 Vaccine [facility] Test 00:00:00 (1) [code = COVID-19 Vaccine (1)] Future Scheduled 1985 COVID-19 Vaccine [facility] 00:00:00 (#1) [code = COVID-19 Vaccine (#1)] Future Scheduled 1985 COVID-19 Vaccine [facility] Test 00:00:00 (#1) [code = COVID-19 Vaccine (#1)] Future Scheduled 1985 COVID-19 Vaccine [facility] Test 00:00:00 (#1) [code = COVID-19 Vaccine (#1)] Future Scheduled 1985 Fluoride Varnish [facility] Test 00:00:00 [code = Fluoride Varnish] Future Scheduled 1985 Fluoride Varnish [facility] Test 00:00:00 [code = Fluoride Varnish] Future Scheduled COVID-[address] [facility] (1) [code = COVID-19 VACCINE (1)] Future Scheduled Scre[facility] for [facility] Test malignant neoplasm of cervix (procedure) [code = 061153876] Future Scheduled [facility]ZA [facility] [code = INFLUENZA VACCINE] Goal Plan of Care Note [code = 24320-2] Goal Plan of Care Note [code = 70320-7] Goal Plan of Care Note [code = 05522-1] Goal Plan of Care Note [code = 35824-3] Goal Plan of Care Note [code = 52290-3] Goal Plan of Care Note [code = 15144-0] Goal Plan of Care Note [code = 04422-0] Goal Plan of Care Note [code = 70862-8] Goal Plan of Care Note [code = 27012-5] Goal Plan of Care Note [code = 43180-9] Goal Plan of Care Note [code = 63633-3] Goal Plan of Care Note [code = 63023-0] Goal Plan of Care Note [code = 18030-3] Goal Plan of Care Note [code = 66274-5] Goal Plan of Care Note [code = 28675-5] Goal Plan of Care Note [code = 98519-3] Goal Plan of Care Note [code = 21295-7] Goal Plan of Care Note [code = 51113-0] Goal Plan of Care Note [code = 52569-7] Goal Plan of Care Note [code = 88168-2] Goal Plan of Care Note [code = 83246-2] Goal Plan of Care Note [code = 97876-7] Goal Plan of Care Note [code = 56334-4] Goal Plan of Care Note [code = 00375-2] Goal Plan of Care Note [code = 16700-5] Goal Plan of Care Note [code = 92881-3] Goal Plan of Care Note [code = 51970-2] Goal Plan of Care Note [code = 60775-8] Goal Plan of Care Note [code = 58414-6] Goal Plan of Care Note [code = 44156-8] Goal Plan of Care Note [code = 99677-5] Goal Plan of Care Note [code = 69214-9] Goal Plan of Care Note [code = 04670-3] Goal Plan of Care Note [code = 55524-6] Goal Plan of Care Note [code = 57580-9] Goal Plan of Care Note [code = 14490-5] Goal Plan of Care Note [code = 47293-9] Goal Plan of Care Note [code = 91048-8] Goal Plan of Care Note [code = 64503-6] Goal Plan of Care Note [code = 75017-2] Goal Plan of Care Note [code = 98406-1] Goal Plan of Care Note [code = 50231-1] Goal Plan of Care Note [code = 63014-8] Goal Plan of Care Note [code = 42374-3] Goal Plan of Care Note [code = 74563-4] Goal Plan of Care Note [code = 60919-8] Goal Plan of Care Note [code = 06649-6] Goal Plan of Care Note [code = 02717-8] Goal Plan of Care Note [code = 44874-4] Goal Plan of Care Note [code = 99192-5] Goal Plan of Care Note [code = 27250-0] Goal Plan of Care Note [code = 82019-6] Goal Plan of Care Note [code = 97253-1] Goal Plan of Care Note [code = 69300-8] Goal Plan of Care Note [code = 08081-6] Goal Plan of Care Note [code = 61150-6] Goal Plan of Care Note [code = 35816-2] Goal Plan of Care Note [code = 12506-7] Goal Plan of Care Note [code = 49755-1] Goal Plan of Care Note [code = 05430-1] Goal Plan of Care Note [code = 93050-9] Goal Plan of Care Note [code = 28641-6] Goal Plan of Care Note [code = 68286-7] Goal Plan of Care Note [code = 61778-4] Goal Plan of Care Note [code = 73041-5] Goal Plan of Care Note [code = 35259-3] Goal Plan of Care Note [code = 61544-9] Goal Plan of Care Note [code = 63703-0] Goal Plan of Care Note [code = 77186-9] Goal Plan of Care Note [code = 81089-3] Goal Plan of Care Note [code = 64185-4] Goal Plan of Care Note [code = 37677-2] Goal Plan of Care Note [code = 82116-2] Goal Plan of Care Note [code = 10575-1] Goal Plan of Care Note [code = 38639-7] Goal Plan of Care Note [code = 29077-5] Goal Plan of Care Note [code = 36442-9] Goal Plan of Care Note [code = 53220-3] Goal Plan of Care Note [code = 43213-7] Goal Plan of Care Note [code = 69473-4] Goal Plan of Care Note [code = 31723-1] Goal Plan of Care Note [code = 81528-8] Goal Plan of Care Note [code = 69174-7] Goal Plan of Care Note [code = 96826-6] Goal Plan of Care Note [code = 82294-6] Goal Plan of Care Note [code = 32307-1] Goal Plan of Care Note [code = 18476-1] Goal Plan of Care Note [code = 65713-6] Goal Plan of Care Note [code = 91421-1] Goal Plan of Care Note [code = 79754-3] Goal Plan of Care Note [code = 92984-2] Goal Plan of Care Note [code = 27948-0] Goal Plan of Care Note [code = 43453-1] Goal Plan of Care Note [code = 50566-2] Goal Plan of Care Note [code = 00911-1] Goal Plan of Care Note [code = 60559-9] Goal Plan of Care Note [code = 49939-1] Goal Plan of Care Note [code = 18110-8] Goal Plan of Care Note [code = 09910-9] Goal Plan of Care Note [code = 65082-9] Goal Plan of Care Note [code = 79481-2] Goal Plan of Care Note [code = 63702-4] Goal Plan of Care Note [code = 50795-2] Goal Plan of Care Note [code = 22868-0] Goal Plan of Care Note [code = 57638-7] Goal Plan of Care Note [code = 58639-9] Goal Plan of Care Note [code = 08087-6] Goal Plan of Care Note [code = 76925-5] Goal Plan of Care Note [code = 47940-8] Goal Plan of Care Note [code = 31528-9] Goal Plan of Care Note [code = 36622-0] Goal Plan of Care Note [code = 19927-4] Goal Plan of Care Note [code = 60168-9] Goal Plan of Care Note [code = 76269-4] Goal Plan of Care Note [code = 50393-7] Goal Plan of Care Note [code = 73756-3] Goal Plan of Care Note [code = 18256-0] Goal Plan of Care Note [code = 49533-6] Goal Plan of Care Note [code = 62604-1] Goal Plan of Care Note [code = 06797-4] Goal Plan of Care Note [code = 43339-9] Goal Plan of Care Note [code = 73800-2] Goal Plan of Care Note [code = 62926-8] Goal Plan of Care Note [code = 12607-4] Goal Plan of Care Note [code = 19231-2] Goal Plan of Care Note [code = 57385-1] Goal Plan of Care Note [code = 23083-8] Goal Plan of Care Note [code = 86202-0] Goal Plan of Care Note [code = 50040-0] Goal Plan of Care Note [code = 75980-8] Goal Plan of Care Note [code = 20247-4] Goal Plan of Care Note [code = 48296-2] Goal Plan of Care Note [code = 76484-0] Goal Plan of Care Note [code = 66262-0] Goal Plan of Care Note [code = 55687-6] Goal Plan of Care Note [code = 51192-2] Goal Plan of Care Note [code = 95708-4] Goal Plan of Care Note [code = 22729-0] Goal Plan of Care Note [code = 83974-1] Goal Plan of Care Note [code = 78534-6] Goal Plan of Care Note [code = 73064-0] Goal Plan of Care Note [code = 48746-2] Encounters Start End Encounter Admission Attending Care Care Encounter Source Date/Time Date/Time Type Type Clinicians Facility Department ID 2021-06-21 Emergency [facility] [id number] Univers 20:38:37 ity of [facility] 2021-06-21 Emergency [facility] [id number] Univers 18:47:54 ity [facility] 2021-06-21 Emergency [facility] [id number] Univers 17:14:45 ity of [facility] 2021-06-18 Emergency [facility] [id number] Univers 16:34:49 ity [facility] 2022-05-10 2022-05-10 Outpatient [id number] 00:00:00 00:00:00 Visit [id number] 2022-03-25 2022-03-25 Outpatient [id number] 00:00:00 00:00:00 Visit [id number] 2022-03-22 2022-03-22 Outpatient [id number] 00:00:00 00:00:00 Visit [id number] 2021-10-10 2021-10-10 Emergency X KATYA [facility] ERT [id number] Univers 11:13:00 11:56:00 PINO ity [facility] 2021-10-10 2021-10-10 [facility] [id number] Univers 11:13:00 11:56:00 Pino CARRANZA [id number] i ty of [place] [id number] [facility] [id number] [place] [address] Branch 2021-09-30 2021-09-30 Emergency [facility] [id number] Univers 21:14:00 22:04:00 [facility] [facility] 2021-09-30 2021-09-30 Emergency [facility] [id number] Univers 21:14:00 22:04:00 Katelyn CARRANZA [id number] ity of [place] 4.2.7.2.686 [facility] [id number] [address] 2021-09-30 2021-09-30 Orders Doctor ANTHONY 1.2.840.114 [id number] Univers 00:00:00 00:00:00 Only Unassigned, LINDA 350.1.13.10 ity of [facility] 4.2.7.2.686 Lius [id number] [address] 2021-09-16 2021-09-17 Emergency [facility] ERT [id number] Univers 21:51:00 00:42:00 KATHERIN ity [facility] 2021-09-16 2021-09-17 Emergency [facility] [id number] Univers 21:51:00 00:42:00 Katherin CARRANZA 350.1.13.10 i ty of [place] 4.2.7.2.6 [facility] [id number] [address] 2021-09-15 2021-09-15 Emergency X [facility] ERT [id number] Univers 12:41:00 15:07:00 PINO ity [facility] 2021-09-15 2021-09-15 Emergency [facility] 1.2.840.114 [id number] Univers 12:41:00 15:07:00 Pino BOWLESJEWEL 350.1.13.10 i ty of [place] 4.2.7.[address] [place] [address] [id number] 2021-08-21 2021-08-21 Emergency [facility] ERT [id number] Univers 15:57:00 17:52:00 KATHERIN ity [facility] 2021-08-21 2021-08-21 Emergency Maurer, [facility] [id number] Univers 15:57:00 17:52:00 Katherin CARRANZA [id number] i ty [facility] 4.2.7.2.686 [facility] [phone] [place] [address] [place] 2021-08-21 2021-08-21 Orders Doctor ANTHONY 1.2.840.114 [id number] Univers 00:00:00 00:00:00 Only Unassigned, LINDA 350.1.13.10 ity of [facility] 4.2.7.2.686 Luis as [phone] [place] [address] [address] 2021-04-26 2021-04-26 Emergency Hairston, [facility] [id number] Univers 12:05:00 17:42:00 Blayne Sarah [id number] i ty of [place] 4.2.7.2.686 [facility] [id number] [place] [address] [place] 2021-04-26 2021-04-26 Orders Doctor ANTHONY 1.2.840.114 [id number] Univers 00:00:00 00:00:00 Only Unassigned, LINDA [id number] ity of [facility] 4.2.7.2.686 Luis as [id number] [address] 2021-04-17 2021-04-17 Emergency , [facility] [id number] Univers 18:55:00 20:04:00 Basil Sarah [id number] i ty of [place] 4.2.7.2.686 [facility] [phone] [place] [address] [address] 2021-04-11 2021-04-11 Emergency Libertad, [facility] 1.2.226.400 [id number] Univers 19:20:00 20:53:00 Katherin Carranza 350.1.13.10 i ty of [place] 4.2.7.2.686 [facility] [phone] [place] [address] [address] 2020-04-29 2020-04-29 Emergency Lotus, [facility] [id number] Univers 10:44:00 14:30:00 Amaris Carranza 350.1.13.10 i ty of [place] 4.2.7.2.686 [facility] [id number] [address] 2020-04-29 2020-04-29 Emergency Lotus [facility] [id number] 10:44:00 14:30:00 [place]aris [place] 350.1.13.10 [place] 4.2.7.2.686 [place] [id number] [facility] 2020-04-29 2020-04-29 Orders Doctor CRUZ 1.2.840.114 [id number] Univers 00:00:00 00:00:00 Only Unassigned, LINDA 350.1.13.10 ity of [place] [facility] 4.2.7.2.686 [facility] [phone] [address] 2020-04-29 2020-04-29 Orders Doctor CRUZ 1.2.840.114 [id number] 00:00:00 00:00:00 Only Unassigned, LINDA 350.1.13.10 [place] [facility] 4.2.7.2.68 [id number] [facility] 2019-04-14 2019-04-14 Emergency [facility] 1.2.840.114 [id number] [facility] 17:25:25 17:58:00 Ad Carranza 350.1.13.10 i ty of [place] 4.2.7.2.686 [facility] [id number] [address] 2019-04-14 2019-04-14 Emergency [facility] 1.2.840.114 [id number] 17:25:25 17:58:00 Ad Carranza 350.1.13.10 [place] [address] [place] [address] [id number] [facility] 2019-03-18 2019-03-18 Emergency Vonda Aguila [facility] 1.2.840.114 [id number] [facility] 22:34:35 23:51:00 Maribel Carranza 350.1.13.10 i ty of [place] 4.2.7.[address] [place] [id number] 2019-03-18 2019-03-18 Emergency Vonda Aguila [facility] 1.2.840.114 [id number] 22:34:35 23:51:00 Maribel Carranza 350.1.13.10 [place] 4.2.7.2.686 [place] [id number] 084 2017-04-09 2017-04-09 Emergency [facility] [id number] Krishnamurthy 00:00:00 00:00:00 Health 2017-04-09 2017-04-09 Emergency [facility] [id number] Krishnamurthy 00:00:00 00:00:00 Health 2017-04-08 2017-04-08 Emergency [facility] [id number] Krishnamurthy 22:35:00 22:35:00 Health 2017-04-08 2017-04-08 Emergency [facility] [id number] Krishnamurthy 00:00:00 00:00:00 Health Results Test Description Test Time Test Comments Results Result Comments Source CULTURE, URINE 2022-05-12 SPECIMEN NUMBER: 11:51:28 [id number] CULTURE, URINE SPECIMEN NUMBER: [id number] SPECIMEN COMMENT: URINE SOURCE: URINE REPORT STATUS: FINAL FINAL REPORT: 05/12/2022 <10,000 CFU/ML UROGENITAL MISAEL PRESENT NO COMMON PATHOGENS VAGINAL PATHOGENS DNA PANEL 2022-05-11 16:13:10 Test Item Value Reference Range Interpretation Comme nts DEMIAN SPECIES (test code = NEGATIVE NEGATIVE ) G. VAGINALIS (test code = POSITIVE NEGATIVE A ) T. VAGINALIS (test code = NEGATIVE NEGATIVE U NLESS OTHERWISE INDICATED, ALL ) TESTING PERFORM ED ATCLINICAL PATHOLOGY [facility]. [address] [place] [address] LABORATORY DIRE CTOR: MARYLIN LIZ M.D. CLIA NUMBER [id number] [place]. [id number] CBC W/AUTO DIFF WITH [id number] 08:28:04 Test Item Value Reference Range Interpretation Comments WBC (test code = 11.4 K/UL 3.5-11.0 H 1001) RBC (test code = 4.01 M/UL 3.80-5.40 1002) HEMOGLOBIN (test code 12.3 G/DL 11.5-15.5 = 1003) HEMATOCRIT (test code 36.2 % 34.0-45.0 = 1004) MCV (test code = 90.3 fL 80.0-99.0 1005) MCH (test code = 30.7 PG 25.0-33.0 1006) MCHC (test code = 34.0 G/DL 31.0-36.0 1007) RDW (test code = 12.3 % 11.5-15.0 1038) NEUTROPHILS (test 67.7 % code = 1008) LYMPHOCYTES (test 25.7 % code = 1010) MONOCYTES (test code 4.6 % = 1011) EOSINOPHILS (test 1.1 % code = 1012) BASOPHILS (test code 0.5 % = 1013) IMMATURE GRANULOCYTES 0.4 % (test code = 1036) NUCLEATED RBCS (test 0.0 /100 WBC'S See_Comment [Aut omated code = 1065) message] The sy stem which generated this result transmitted reference range : 0.0. The refere nce range was not u sed to interpret th is result as normal/abnormal . PLATELET COUNT (test 443 K/UL 130-400 H code = 1015) ABSOLUTE NEUTROPHILS 7.72 K/UL 1.50-7.50 H (test code = 1066) ABSOLUTE LYMPHOCYTES 2.93 K/UL 1.00-4.00 (test code = 1067) ABSOLUTE MONOCYTES 0.53 K/UL 0.20-1.00 (test code = 1068) ABSOLUTE EOSINOPHILS 0.12 K/UL 0.00-0.50 (test code = 1040) ABSOLUTE BASOPHILS 0.06 K/UL 0.00-0.20 (test code = 1069) ABS IMMATURE 0.04 K/UL 0.00-0.10 GRANULOCYTES (test code = 1020) ABS NUCLEATED RBCS 0.00 K/UL 0.00-0.11 (test code = 71939) TSH, THIRD [id number] 06:43:39 Test Item Value Reference Range Interpretation Comments TSH, THIRD GENERATION (test code 0.359 UIU/ML 0.400-4.100 L = 2821) [id number] 06:43:39 Test Item Value Reference Range Interpretation [...] . PG/ML <138.0/<20.0 NO TE: TO DETERMINE PATRICIA L VS. SUBNORMAL ESTRA DIOL IN POSTMENOPAUSAL FEMALES, CONSIDER ULTRAS ENSITIVE ESTRADIOL (CPL ORDER CODE 5678). METHODOL OGY IS [employer] DIANA ELECTROCH EMILUMINESCENT IMMUNOASSAY WIT H A LIMIT OF DETECTION OF 17 PG/ML. FSH + LH [id number] 06:43:39 Test Item Value Reference Range Interpretation Comments FOLLICLE STIM HORMONE 12.1 IU/L SEE BELOW EXPECTED (test code = 2700) VALUES FO R FSH FOR FEMALES >17 YEA RS MALES FEMALES >=18 YEARS 1.5- 12.4 IU/L FOLLICULAR 3.5-12.5 IU/L M ID-CYCLE PEAK 4.7-21.5 I U/L LUTEAL PHASE 1. 7-7.7 IU/L POSTMENOPA USAL 25.8-134.8 IU/L LUTEINIZING HORMONE 5.2 IU/L SEE BELOW EXPECTED (test code = 2776) VALUES FO R LH FOR FEMALES >17 YEA RS MALES FEMALES >=18 YEARS 1.8- 8.6 IU/L FOLLICULAR 2.4- 12.6 IU/L MID-CYCLE PEAK 14.0-95.6 IU/L LUTEAL PHASE 1.0-11.4 IU/L POSTMENOPAUSAL 7.7-58.5 IU/L [id number] 06:43:39 Test Item Value Reference Range Interpretation Comments PROLACTIN (test 5.6 NG/ML 5.0-37.0 NOTE: Metho dology is Monique code = 2800) Diana Electroch emiluminescence Immunoassay (EC VERNON). Values obtained with d ifferent assays/manufact urers cannot be used interchang eably. Results should not be u sed as sole basis to establ ben the presence or abs ence of malignancy. UNL ESS OTHERWISE INDICATED, ALL TESTING PERFORMED [facility], [facility]. [address] [facility] [place] [address] LABORATORY DIRE CTOR: MARYLIN LIZ M.D. CLIA NUMBER [id number] [facility] [place]. [id number] CBC W/AUTO [id number] 00:00:00 Test Item Value Reference Range Interpretation Comments WBC (test code = 1001) 11.4 K/UL RBC (test code = 1002) 4.01 M/UL HEMOGLOBIN (test code = 1003) 12.3 G/DL HEMATOCRIT (test code = 1004) 36.2 % MCV (test code = 1005) 90.3 fL MCH (test code = 1006) 30.7 PG MCHC (test code = 1007) 34.0 G/DL RDW (test code = 1038) 12.3 % NEUTROPHILS (test code = 1008) 67.7 % LYMPHOCYTES (test code = 1010) 25.7 % MONOCYTES (test code = 1011) 4.6 % EOSINOPHILS (test code = 1012) 1.1 % BASOPHILS (test code = 1013) 0.5 % IMMATURE GRANULOCYTES (test 0.4 % code = 1036) NUCLEATED RBCS (test code = 0.0 /100WBC'S 1065) PLATELET COUNT (test code = 443 K/UL 1015) ABSOLUTE NEUTROPHILS (test code 7.72 K/UL = 1066) ABSOLUTE LYMPHOCYTES (test code 2.93 K/UL = 1067) ABSOLUTE MONOCYTES (test code = 0.53 K/UL 1068) ABSOLUTE EOSINOPHILS (test code 0.12 K/UL = 1040) ABSOLUTE BASOPHILS (test code = 0.06 K/UL 1069) ABS IMMATURE GRANULOCYTES (test 0.04 K/UL code = 1020) ABS NUCLEATED RBCS (test code = 0.00 K/UL 03949) CBC W/AUTO [id number] 00:00:00 Test Item Value Reference Range Interpretation Comments WBC (test code = 1001) 11.4 K/UL RBC (test code = 1002) 4.01 M/UL HEMOGLOBIN (test code = 1003) 12.3 G/DL HEMATOCRIT (test code = 1004) 36.2 % MCV (test code = 1005) 90.3 fL MCH (test code = 1006) 30.7 PG MCHC (test code = 1007) 34.0 G/DL RDW (test code = 1038) 12.3 % NEUTROPHILS (test code = 1008) 67.7 % LYMPHOCYTES (test code = 1010) 25.7 % MONOCYTES (test code = 1011) 4.6 % EOSINOPHILS (test code = 1012) 1.1 % BASOPHILS (test code = 1013) 0.5 % IMMATURE GRANULOCYTES (test 0.4 % code = 1036) NUCLEATED RBCS (test code = 0.0 /100WBC'S 1065) PLATELET COUNT (test code = 443 K/UL 1015) ABSOLUTE NEUTROPHILS (test code 7.72 K/UL = 1066) ABSOLUTE LYMPHOCYTES (test code 2.93 K/UL = 1067) ABSOLUTE MONOCYTES (test code = 0.53 K/UL 1068) ABSOLUTE EOSINOPHILS (test code 0.12 K/UL = 1040) ABSOLUTE BASOPHILS (test code = 0.06 K/UL 1069) ABS IMMATURE GRANULOCYTES (test 0.04 K/UL code = 1020) ABS NUCLEATED RBCS (test code = 0.00 K/UL 79101) CBC W/AUTO [id number] 00:00:00 Test Item Value Reference Range Interpretation Comments WBC (test code = 1001) 11.4 K/UL RBC (test code = 1002) 4.01 M/UL HEMOGLOBIN (test code = 1003) 12.3 G/DL HEMATOCRIT (test code = 1004) 36.2 % MCV (test code = 1005) 90.3 fL MCH (test code = 1006) 30.7 PG MCHC (test code = 1007) 34.0 G/DL RDW (test code = 1038) 12.3 % NEUTROPHILS (test code = 1008) 67.7 % LYMPHOCYTES (test code = 1010) 25.7 % MONOCYTES (test code = 1011) 4.6 % EOSINOPHILS (test code = 1012) 1.1 % BASOPHILS (test code = 1013) 0.5 % IMMATURE GRANULOCYTES (test 0.4 % code = 1036) NUCLEATED RBCS (test code = 0.0 /100WBC'S 1065) PLATELET COUNT (test code = 443 K/UL 1015) ABSOLUTE NEUTROPHILS (test code 7.72 K/UL = 1066) ABSOLUTE LYMPHOCYTES (test code 2.93 K/UL = 1067) ABSOLUTE MONOCYTES (test code = 0.53 K/UL 1068) ABSOLUTE EOSINOPHILS (test code 0.12 K/UL = 1040) ABSOLUTE BASOPHILS (test code = 0.06 K/UL 1069) ABS IMMATURE GRANULOCYTES (test 0.04 K/UL code = 1020) ABS NUCLEATED RBCS (test code = 0.00 K/UL 67014) [id number] 00:00:00 Test Item Value Reference Range Interpretation Comments TSH, THIRD GENERATION (test code 0.359 UIU/ML = 2821) [id number] 00:00:00 Test Item Value Reference Range Interpretation Comments TSH, THIRD GENERATION (test code 0.359 UIU/ML = 2821) [id number] 00:00:00 Test Item Value Reference Range Interpretation Comments TSH, THIRD GENERATION (test code 0.359 UIU/ML = 2821) [id number] 00:00:00 Test Item Value Reference Range Interpretation Comments ESTRADIOL (test code = 2505) 34.5 PG/ML [id number] 00:00:00 Test Item Value Reference Range Interpretation Comments ESTRADIOL (test code = 2505) 34.5 PG/ML [id number] 00:00:00 Test Item Value Reference Range Interpretation Comments ESTRADIOL (test code = 2505) 34.5 PG/ML FSH + LH [id number] 00:00:00 Test Item Value Reference Range Interpretation Comments FOLLICLE STIM HORMONE (test code = 12.1 IU/L 2700) LUTEINIZING HORMONE (test code = 5.2 IU/L 2776) FSH + LH [id number] 00:00:00 Test Item Value Reference Range Interpretation Comments FOLLICLE STIM HORMONE (test code = 12.1 IU/L 2700) LUTEINIZING HORMONE (test code = 5.2 IU/L 2776) [id number] 00:00:00 Test Item Value Reference Range Interpretation Comments PROLACTIN (test code = 2800) 5.6 NG/ML [id number] 00:00:00 Test Item Value Reference Range Interpretation Comments PROLACTIN (test code = 2800) 5.6 NG/ML CBC W/AUTO [id number] 00:00:00 Test Item Value Reference Range Interpretation Comments WBC (test code = 1001) 11.4 K/UL RBC (test code = 1002) 4.01 M/UL HEMOGLOBIN (test code = 1003) 12.3 G/DL HEMATOCRIT (test code = 1004) 36.2 % MCV (test code = 1005) 90.3 fL MCH (test code = 1006) 30.7 PG MCHC (test code = 1007) 34.0 G/DL RDW (test code = 1038) 12.3 % NEUTROPHILS (test code = 1008) 67.7 % LYMPHOCYTES (test code = 1010) 25.7 % MONOCYTES (test code = 1011) 4.6 % EOSINOPHILS (test code = 1012) 1.1 % BASOPHILS (test code = 1013) 0.5 % IMMATURE GRANULOCYTES (test 0.4 % code = 1036) NUCLEATED RBCS (test code = 0.0 /100WBC'S 1065) PLATELET COUNT (test code = 443 K/UL 1015) ABSOLUTE NEUTROPHILS (test code 7.72 K/UL = 1066) ABSOLUTE LYMPHOCYTES (test code 2.93 K/UL = 1067) ABSOLUTE MONOCYTES (test code = 0.53 K/UL 1068) ABSOLUTE EOSINOPHILS (test code 0.12 K/UL = 1040) ABSOLUTE BASOPHILS (test code = 0.06 K/UL 1069) ABS IMMATURE GRANULOCYTES (test 0.04 K/UL code = 1020) ABS NUCLEATED RBCS (test code = 0.00 K/UL 21980) CBC W/AUTO [id number] 00:00:00 Test Item Value Reference Range Interpretation Comments WBC (test code = 1001) 11.4 K/UL RBC (test code = 1002) 4.01 M/UL HEMOGLOBIN (test code = 1003) 12.3 G/DL HEMATOCRIT (test code = 1004) 36.2 % MCV (test code = 1005) 90.3 fL MCH (test code = 1006) 30.7 PG MCHC (test code = 1007) 34.0 G/DL RDW (test code = 1038) 12.3 % NEUTROPHILS (test code = 1008) 67.7 % LYMPHOCYTES (test code = 1010) 25.7 % MONOCYTES (test code = 1011) 4.6 % EOSINOPHILS (test code = 1012) 1.1 % BASOPHILS (test code = 1013) 0.5 % IMMATURE GRANULOCYTES (test 0.4 % code = 1036) NUCLEATED RBCS (test code = 0.0 /100WBC'S 1065) PLATELET COUNT (test code = 443 K/UL 1015) ABSOLUTE NEUTROPHILS (test code 7.72 K/UL = 1066) ABSOLUTE LYMPHOCYTES (test code 2.93 K/UL = 1067) ABSOLUTE MONOCYTES (test code = 0.53 K/UL 1068) ABSOLUTE EOSINOPHILS (test code 0.12 K/UL = 1040) ABSOLUTE BASOPHILS (test code = 0.06 K/UL 1069) ABS IMMATURE GRANULOCYTES (test 0.04 K/UL code = 1020) ABS NUCLEATED RBCS (test code = 0.00 K/UL 63331) CBC W/AUTO [id number] 00:00:00 Test Item Value Reference Range Interpretation Comments WBC (test code = 1001) 11.4 K/UL RBC (test code = 1002) 4.01 M/UL HEMOGLOBIN (test code = 1003) 12.3 G/DL HEMATOCRIT (test code = 1004) 36.2 % MCV (test code = 1005) 90.3 fL MCH (test code = 1006) 30.7 PG MCHC (test code = 1007) 34.0 G/DL RDW (test code = 1038) 12.3 % NEUTROPHILS (test code = 1008) 67.7 % LYMPHOCYTES (test code = 1010) 25.7 % MONOCYTES (test code = 1011) 4.6 % EOSINOPHILS (test code = 1012) 1.1 % BASOPHILS (test code = 1013) 0.5 % IMMATURE GRANULOCYTES (test 0.4 % code = 1036) NUCLEATED RBCS (test code = 0.0 /100WBC'S 1065) PLATELET COUNT (test code = 443 K/UL 1015) ABSOLUTE NEUTROPHILS (test code 7.72 K/UL = 1066) ABSOLUTE LYMPHOCYTES (test code 2.93 K/UL = 1067) ABSOLUTE MONOCYTES (test code = 0.53 K/UL 1068) ABSOLUTE EOSINOPHILS (test code 0.12 K/UL = 1040) ABSOLUTE BASOPHILS (test code = 0.06 K/UL 1069) ABS IMMATURE GRANULOCYTES (test 0.04 K/UL code = 1020) ABS NUCLEATED RBCS (test code = 0.00 K/UL 64598) [id number] 00:00:00 Test Item Value Reference Range Interpretation Comments TSH, THIRD GENERATION (test code 0.359 UIU/ML = 2821) [id number] 00:00:00 Test Item Value Reference Range Interpretation Comments TSH, THIRD GENERATION (test code 0.359 UIU/ML = 2821) [id number] 00:00:00 Test Item Value Reference Range Interpretation Comments TSH, THIRD GENERATION (test code 0.359 UIU/ML = 2821) [id number] 00:00:00 Test Item Value Reference Range Interpretation Comments ESTRADIOL (test code = 2505) 34.5 PG/ML [id number] 00:00:00 Test Item Value Reference Range Interpretation Comments ESTRADIOL (test code = 2505) 34.5 PG/ML [id number] 00:00:00 Test Item Value Reference Range Interpretation Comments ESTRADIOL (test code = 2505) 34.5 PG/ML FSH + LH [id number] 00:00:00 Test Item Value Reference Range Interpretation Comments FOLLICLE STIM HORMONE (test code = 12.1 IU/L 2700) LUTEINIZING HORMONE (test code = 5.2 IU/L 2776) FSH + LH [id number] 00:00:00 Test Item Value Reference Range Interpretation Comments FOLLICLE STIM HORMONE (test code = 12.1 IU/L 2700) LUTEINIZING HORMONE (test code = 5.2 IU/L 2776) [id number] 00:00:00 Test Item Value Reference Range Interpretation Comments PROLACTIN (test code = 2800) 5.6 NG/ML [id number] 00:00:00 Test Item Value Reference Range Interpretation Comments PROLACTIN (test code = 2800) 5.6 NG/ML VAGINAL PATHOGENS DNA [id number] 21:19:07 Test Item Value Reference Range Interpretation Comments DEMIAN SPECIES (test code = 50111) NEGATIVE NEGATIVE G. VAGINALIS (test code = 19273) POSITIVE NEGATIVE A T. VAGINALIS (test code = 39830) NEGATIVE NEGATIVE [id number] 04:51:55 Test Item Value Reference Range Interpretation Comments RPR RESULT (test code = NON-REACTIVE NON-REACTIVE 3501) RPR TITER (test code = 3500) NOT INDIC. TITER NOT INDIC. HIV 1/2 4TH GEN, RFLX [id number] 04:00:28 Test Item Value Reference Range Interpretation Comments HIV 1/2 4TH GEN, RFLX CONF (test NON-REACTIVE NON-REACTIVE code = 3514) HEPATITIS PANEL, [id number] 04:00:28 Test Item Value Reference Range Interpretation Comments HEPATITIS A IgM (test NON-REACTIVE NON-REACTIVE code = 73027) HEPATITIS B CORE IgM NON-REACTIVE NON-REACTIVE (test code = 4644) HEPATITIS B SURF AG NON-REACTIVE NON-REACTIVE (test code = 2739) HEPATITIS C ANTIBODY NON-REACTIVE NON-REACTIVE (test code = 4675) INTERPRETATION (NOTE) Hepatitis A HEPATITIS A: (test serology shows no code = 2552) evidence of acu te hepatitis A. INTERPRETATION (NOTE) Hepatitis B HEPATITIS B: (test serology shows no code = 41401) evidence of ac [place] hepatitis B and no indication of exposure to hepatitis B vir us in the previous si xto eight months. INTERPRETATION (NOTE) Hepatitis C HEPATITIS C: (test serology shows no code = 39258) evidence of ex posure to hepatitisC v irus at this time. I t can take up to 12 m onths after exposure tothe hepatitis C vir us for antibodies to become detectab le in the blood in ce rtain patients. UNLES S OTHERWISE INDIC ATED, ALL TESTING PERFORMED [facility], [facility]. [address] [place], [place] [address] [place] [address] DIRECTOR: Karen MONTERROSOIA NUMBER [id number] [facility] [place] [id number] VAGINAL PATHOGENS DNA PANEL [ADDED]2021-12-22 00:00:00 Test [...] HEPATITIS A IgM (test code = NON-REACTIVE 36799) HEPATITIS B CORE IgM (test code NON-REACTIVE = 4644) HEPATITIS B SURF AG (test code = NON-REACTIVE 2739) HEPATITIS C ANTIBODY (test code NON-REACTIVE = 4675) INTERPRETATION HEPATITIS A: (NOTE) (test code = 2552) INTERPRETATION HEPATITIS B: (NOTE) (test code = 64944) INTERPRETATION HEPATITIS C: (NOTE) (test code = 98075) VAGINAL PATHOGENS DNA PANEL [ADDED]2021-12-22 00:00:00 Test Item Value Reference Range Interpretation Comments DEMIAN SPECIES (test code = ) NEGATIVE G. VAGINALIS (test code = 95159) POSITIVE T. VAGINALIS (test code = 60205) NEGATIVE VAGINAL PATHOGENS DNA PANEL [ADDED]2021-12-22 00:00:00 Test Item Value Reference Range Interpretation Comments DEMIAN SPECIES (test code = ) NEGATIVE G. VAGINALIS (test code = ) POSITIVE T. VAGINALIS (test code = 75838) NEGATIVE HIV 1/2 4TH GEN, RFLX CONF [ADDED]2021-12-22 00:00:00 Test Item Value Reference Range Interpretation Comments HIV 1/2 4TH GEN, RFLX CONF (test NON-REACTIVE code = 3514) HIV 1/2 4TH GEN, RFLX CONF [ADDED]2021-12-22 [...] HEPATITIS A IgM (test code = NON-REACTIVE 57806) HEPATITIS B CORE IgM (test code NON-REACTIVE = 4644) HEPATITIS B SURF AG (test code = NON-REACTIVE 2739) HEPATITIS C ANTIBODY (test code NON-REACTIVE = 4675) INTERPRETATION HEPATITIS A: (NOTE) (test code = 2552) INTERPRETATION HEPATITIS B: (NOTE) (test code = 42930) INTERPRETATION HEPATITIS C: (NOTE) (test code = 68764) HEPATITIS PANEL, ACUTE [ADDED]2021-12-22 00:00:00 Test Item Value Reference Range Interpretation Comments HEPATITIS A IgM (test code = NON-REACTIVE 44323) HEPATITIS B CORE IgM (test code NON-REACTIVE = 4644) HEPATITIS B SURF AG (test code = NON-REACTIVE 2739) HEPATITIS C ANTIBODY (test code NON-REACTIVE = 4675) INTERPRETATION HEPATITIS A: (NOTE) (test code = 2552) INTERPRETATION HEPATITIS B: (NOTE) (test code = 93665) INTERPRETATION HEPATITIS C: (NOTE) (test code = 74574) VAGINAL PATHOGENS DNA PANEL [ADDED]2021-12-22 00:00:00 Test Item Value Reference Range Interpretation Comments DEMIAN SPECIES (test code = ) NEGATIVE G. VAGINALIS (test code = 85497) POSITIVE T. VAGINALIS (test code = 58637) NEGATIVE VAGINAL PATHOGENS DNA PANEL [ADDED]2021-12-22 00:00:00 Test Item Value Reference Range Interpretation Comments DEMIAN SPECIES (test code = ) NEGATIVE G. VAGINALIS (test code = 84257) POSITIVE T. VAGINALIS (test code = 53509) NEGATIVE HIV 1/2 4TH GEN, RFLX CONF [ADDED]2021-12-22 00:00:00 Test Item Value Reference Range Interpretation Comments HIV 1/2 4TH GEN, RFLX CONF (test NON-REACTIVE code = 3514) HIV 1/2 4TH GEN, RFLX CONF [ADDED]2021-12-22 [...] HEPATITIS A IgM (test code = NON-REACTIVE 64341) HEPATITIS B CORE IgM (test code NON-REACTIVE = 4644) HEPATITIS B SURF AG (test code = NON-REACTIVE 2739) HEPATITIS C ANTIBODY (test code NON-REACTIVE = 4675) INTERPRETATION HEPATITIS A: (NOTE) (test code = 2552) INTERPRETATION HEPATITIS B: (NOTE) (test code = 34218) INTERPRETATION HEPATITIS C: (NOTE) (test code = 07422) HEPATITIS PANEL, ACUTE [ADDED]2021-12-22 00:00:00 Test Item Value Reference Range Interpretation Comments HEPATITIS A IgM (test code = NON-REACTIVE 99409) HEPATITIS B CORE IgM (test code NON-REACTIVE = 4644) HEPATITIS B SURF AG (test code = NON-REACTIVE 2739) HEPATITIS C ANTIBODY (test code NON-REACTIVE = 4675) INTERPRETATION HEPATITIS A: (NOTE) (test code = 2552) INTERPRETATION HEPATITIS B: (NOTE) (test code = 28596) INTERPRETATION HEPATITIS C: (NOTE) (test code = 29738) POCT [id number] 17:30:00 Test Item Value Reference Range Interpretation Comments POCT PREG (test code = 1605) NEGATIVE On board controls acceptable with PRESENT C Line (test code = 3574) POCT PREG LOT # (test code = 3575) [id number] POCT PREG TEST DATE (test 10/18/2022 code = 3576) Lab Interpretation (test code = Normal 09533-9) [id number]23[facility]00 Test Item Value Reference Range Interpretation Comments POCT PREG (test code = 1605) negative On board controls acceptable with present C Line (test code = 3574) POCT PREG LOT # (test code = 3575) [id number] POCT PREG TEST DATE (test 2022-10-18 code = 3576) Lab Interpretation (test code = Normal 92212-4) [facility] WITH [id number] 20:17:20 Test Item Value Reference Range Interpretation Comments WBC (test code = See_Comment H [Automated 5490-2) message] The sy stem which generated this [...] RDW-SD (test code = 43.7 fL 39.0-49.9 55304-9) RDW-CV (test code = 13.0 % 12.0-15.5 788-0) PLT (test code = See_Comment H [Automated 777-3) message] The sy stem which generated this result transmitted reference range : 166 - 358 10*3/ ?L. The reference r dinora was not used to interpret this result as normal/abnormal . MPV (test code = 9.6 fL 9.5-12.9 48594-7) NRBC/100 WBC (test See_Comment [Automat ed code = 5497505311) message] The system which generated this result transmitted reference range : 0.0 - 10.0 /100 WBCs. The refer ence range was not u sed to interpret th is result as normal/abnormal . NRBC x10^3 (test code <0.01 See_Comment [Auto mated = 2323384413) message] The s ystem which generated this result transmitted reference range : 10*3/?L. The reference range was not used to interpret this result as normal/abnormal . GRAN MAT (NEUT) % 53.3 % (test code = 770-8) IMM GRAN % (test code 0.50 % = 6290175610) LYMPH % (test code = 39.2 % 736-9) MONO % (test code = 5.3 % 5905-5) EOS % (test code = 1.1 % 713-8) BASO % (test code = 0.6 % 706-2) GRAN MAT x10^3(ANC) 6.66 10*3/uL 1.88-7.09 (test code = 8063301526) IMM GRAN x10^3 (test 0.06 10*3/uL 0.00-0.06 code = 3059612580) LYMPH x10^3 (test code 4.91 10*3/uL 1.32-3.29 H = 731-0) MONO x10^3 (test code 0.66 10*3/uL 0.33-0.92 = 742-7) EOS x10^3 (test code = 0.14 10*3/uL 0.03-0.39 711-2) BASO x10^3 (test code 0.08 10*3/uL 0.01-0.07 H = 704-7) REACT LYMPHS (test Rare code = 6373760815) Lab Interpretation Abnormal (test code = 70531-4) [facility] ([id number][facility]2021-09-15 19:38:55 Test Item Value Reference Range Interpretation Comments NA (test code = 137 mmol/L 135-145 6961402218) K (test code = 4.2 mmol/L 3.5-5.0 5448327507) CL (test code = 108 mmol/L 98-108 6481224737) CO2 TOTAL (test code = 22 mmol/L 23-31 L 2957726299) AGAP (test code = 2-16 2647045640) BUN (test code = 8 mg/dL 7-23 7014937424) GLUCOSE (test code = 91 mg/dL 70-110 5008986216) CREATININE (test code = 0.54 mg/dL 0.50-1.04 2821293030) TOTAL BILI (test code = 0.5 mg/dL 0.1-1.0 5301408413) CALCIUM (test code = 9.3 mg/dL 8.6-10.6 5073703898) T PROTEIN (test code = 8.1 g/dL 6.3-8.2 6470725663) ALBUMIN (test code = 4.8 g/dL 3.5-5.0 7646818649) ALK PHOS (test code = 93 U/L 34-122 9102087539) ALTv (test code = 18 U/L 5-35 2-6) AST(SGOT) (test code = 26 U/L 13-40 0511775108) eGFR (test code = mL/min/1.73m2 2824746454) DIEGO (test code = DIEGO) Association of [...] tests). Lab Interpretation Abnormal (test code = 00648-9) [facility] 19:25:19 Test Item Value Reference Range Interpretation Comments LIPASE (test code = 5487050971) 108 U/L 0-220 Lab Interpretation (test code = Normal 34353-8) [facility] [id number] 19:00:00 Test Item Value Reference Range Interpretation Comments POCT PREG (test code = 1605) negative On board controls acceptable with present C Line (test code = 3574) POCT PREG LOT # (test code = 3575) [id number] POCT PREG TEST DATE (test code = 3576) Lab Interpretation (test code = Normal 05877-1) [facility] ([id number])2021-08-21 23:29:45 Test Item Value Reference Range Interpretation Comments NA (test code = 135 mmol/L 135-145 0363084206) K (test code = 4.2 mmol/L 3.5-5.0 5892296146) CL (test code = 103 mmol/L 98-108 3667068192) CO2 TOTAL (test code 24 mmol/L 23-31 = 1116625908) AGAP (test code = 2-16 7675014432) BUN (test code = 7 mg/dL 7-23 8844211123) GLUCOSE (test code = 102 mg/dL 70-110 3588346962) CREATININE (test code 0.52 mg/dL 0.50-1.04 = 0083791254) TOTAL BILI (test code 0.4 mg/dL 0.1-1.1 = 0874302357) CALCIUM (test code = 9.3 mg/dL 8.6-10.6 5190572857) T PROTEIN (test code 7.8 g/dL 6.3-8.2 = 5206494445) ALBUMIN (test code = 4.6 g/dL 3.5-5.0 6624971638) ALK PHOS (test code = 95 U/L 34-122 0672943180) ALTv (test code = 18 U/L 5-35 1742-6) AST(SGOT) (test code 27 U/L 13-40 = 4447078243) eGFR (test code = mL/min/1.73m2 1380365984) DIEGO (test code = DIEGO) Association of [...] or urine or abnormalities in imaging tests). [facility] WITH [id number] 23:07:05 Test Item Value Reference Range Interpretation Comments WBC (test code = See_Comment H [Automated 4020-2) message] The sy stem which generated this result transmitted reference range : 4.30 - 11.10 10*3/?L. The reference range was not used to interpret this result as normal/abnormal . RBC (test code = See_Comment [Automated 249-8) message] The sy stem which generated this [...] RDW-SD (test code = 44.0 fL 39.0-49.9 78364-1) RDW-CV (test code = 12.8 % 12.0-15.5 788-0) PLT (test code = See_Comment H [Automated 777-3) message] The sy stem which generated this result transmitted reference range : 166 - 358 10*3/ ?L. The reference r dinora was not used to interpret this result as normal/abnormal . MPV (test code = 9.8 fL 9.5-12.9 20700-8) NRBC/100 WBC (test See_Comment [Automat ed code = 2247066494) message] The system which generated this result transmitted reference range : 0.0 - 10.0 /100 WBCs. The refer ence range was not u sed to interpret th is result as normal/abnormal . NRBC x10^3 (test code <0.01 See_Comment [Auto mated = 5358171895) message] The s ystem which generated this result transmitted reference range : 10*3/?L. The reference range was not used to interpret this result as normal/abnormal . GRAN MAT (NEUT) % 58.5 % (test code = 770-8) IMM GRAN % (test code 0.50 % = 7017539272) LYMPH % (test code = 33.9 % 736-9) MONO % (test code = 5.1 % 5905-5) EOS % (test code = 1.2 % 713-8) BASO % (test code = 0.8 % 706-2) GRAN MAT x10^3(ANC) 6.69 10*3/uL 1.88-7.09 (test code = 2297669904) IMM GRAN x10^3 (test 0.06 10*3/uL 0.00-0.06 code = 7848303698) LYMPH x10^3 (test code 3.88 10*3/uL 1.32-3.29 H = 731-0) MONO x10^3 (test code 0.58 10*3/uL 0.33-0.92 = 742-7) EOS x10^3 (test code = 0.14 10*3/uL 0.03-0.39 711-2) BASO x10^3 (test code 0.09 10*3/uL 0.01-0.07 H = 704-7) Lab Interpretation Abnormal (test code = 66851-1) [facility] [id number] 22:39:00 Test Item Value Reference Range Interpretation Comments POCT PREG (test code = 1605) negative On board controls acceptable with present C Line (test code = 3574) POCT PREG LOT # (test code = 3575) [id number] POCT PREG TEST DATE (test 10/18/2022 code = 3576) Lab Interpretation (test code = Normal 43341-3) [facility]SH[facility]:00 Test Item Value Reference Range Interpretation Comments TSH, THIRD GENERATION (test code 0.964 UIU/ML = 2821) [id number] 00:00:00 Test Item Value Reference Range Interpretation Comments TSH, THIRD GENERATION (test code 0.964 UIU/ML = 2821) [id number] 00:00:00 Test Item Value Reference Range Interpretation Comments PROLACTIN (test code = 2800) 13.5 NG/ML GC AND CHLAMYDIA, AMPLIFIED, [id number] 00:00:00 Test Item Value Reference Range Interpretation Comments GONORRHEA, NAAT (test code = 87865) NEGATIVE CHLAMYDIA, NAAT (test code = 67979) NEGATIVE HIV AB/AG COMBO RFLX [id number] 00:00:00 Test Item Value Reference Range Interpretation Comments HIV 1/2 4TH GEN, RFLX CONF (test NON-REACTIVE code = 3514) [id number] 00:00:00 Test Item Value Reference Range Interpretation Comments RPR RESULT (test code = NON-REACTIVE 3501) RPR TITER (test code = 3500) NOT INDIC. TITER [id number] 00:00:00 Test Item Value Reference Range Interpretation Comments RPR RESULT (test code = NON-REACTIVE 3501) RPR TITER (test code = 3500) NOT INDIC. TITER [id number] 00:00:00 Test Item Value Reference Range Interpretation Comments TSH, THIRD GENERATION (test code 0.964 UIU/ML = 2821) [id number] 00:00:00 Test Item Value Reference Range Interpretation Comments TSH, THIRD GENERATION (test code 0.964 UIU/ML = 2821) [id number] 00:00:00 Test Item Value Reference Range Interpretation Comments TSH, THIRD GENERATION (test code 0.964 UIU/ML = 2821) [id number] 00:00:00 Test Item Value Reference Range Interpretation Comments PROLACTIN (test code = 2800) 13.5 NG/ML [id number] 00:00:00 Test Item Value Reference Range Interpretation Comments PROLACTIN (test code = 2800) 13.5 NG/ML GC AND CHLAMYDIA, AMPLIFIED, [id number] 00:00:00 Test Item Value Reference Range Interpretation Comments GONORRHEA, NAAT (test code = 79309) NEGATIVE CHLAMYDIA, NAAT (test code = 32794) NEGATIVE GC AND CHLAMYDIA, AMPLIFIED, [id number] 00:00:00 Test Item Value Reference Range Interpretation Comments GONORRHEA, NAAT (test code = 40139) NEGATIVE CHLAMYDIA, NAAT (test code = 93373) NEGATIVE HIV AB/AG COMBO RFLX [id number] 00:00:00 Test Item Value Reference Range Interpretation Comments HIV 1/2 4TH GEN, RFLX CONF (test NON-REACTIVE code = 3514) HIV AB/AG COMBO RFLX [id number] 00:00:00 Test Item Value Reference Range Interpretation Comments HIV 1/2 4TH GEN, RFLX CONF (test NON-REACTIVE code = 3514) [id number] 00:00:00 Test Item Value Reference Range Interpretation Comments RPR RESULT (test code = NON-REACTIVE 3501) RPR TITER (test code = 3500) NOT INDIC. TITER [id number] 00:00:00 Test Item Value Reference Range Interpretation Comments RPR RESULT (test code = NON-REACTIVE 3501) RPR TITER (test code = 3500) NOT INDIC. TITER [id number] 00:00:00 Test Item Value Reference Range Interpretation Comments RPR RESULT (test code = NON-REACTIVE 3501) RPR TITER (test code = 3500) NOT INDIC. TITER [id number] 00:00:00 Test Item Value Reference Range Interpretation Comments TSH, THIRD GENERATION (test code 0.964 UIU/ML = 2821) [id number] 00:00:00 Test Item Value Reference Range Interpretation Comments TSH, THIRD GENERATION (test code 0.964 UIU/ML = 2821) [id number] 00:00:00 Test Item Value Reference Range Interpretation Comments TSH, THIRD GENERATION (test code 0.964 UIU/ML = 2821) [id number] 00:00:00 Test Item Value Reference Range Interpretation Comments PROLACTIN (test code = 2800) 13.5 NG/ML [id number] 00:00:00 Test Item Value Reference Range Interpretation Comments PROLACTIN (test code = 2800) 13.5 NG/ML GC AND CHLAMYDIA, AMPLIFIED, [id number] 00:00:00 Test Item Value Reference Range Interpretation Comments GONORRHEA, NAAT (test code = 64503) NEGATIVE CHLAMYDIA, NAAT (test code = 50774) NEGATIVE GC AND CHLAMYDIA, AMPLIFIED, [id number] 00:00:00 Test Item Value Reference Range Interpretation Comments GONORRHEA, NAAT (test code = 26365) NEGATIVE CHLAMYDIA, NAAT (test code = 37274) NEGATIVE HIV AB/AG COMBO RFLX [id number] 00:00:00 Test Item Value Reference Range Interpretation Comments HIV 1/2 4TH GEN, RFLX CONF (test NON-REACTIVE code = 3514) HIV AB/AG COMBO RFLX [id number] 00:00:00 Test Item Value Reference Range Interpretation Comments HIV 1/2 4TH GEN, RFLX CONF (test NON-REACTIVE code = 3514) [id number] 00:00:00 Test Item Value Reference Range Interpretation Comments RPR RESULT (test code = NON-REACTIVE 3501) RPR TITER (test code = 3500) NOT INDIC. TITER [id number] 00:00:00 Test Item Value Reference Range Interpretation Comments RPR RESULT (test code = NON-REACTIVE 3501) RPR TITER (test code = 3500) NOT INDIC. TITER [id number] 00:00:00 Test Item Value Reference Range Interpretation Comments RPR RESULT (test code = NON-REACTIVE 3501) RPR TITER (test code = 3500) NOT INDIC. TITER GC AND CHLAMYDIA AMPLIFIED, [id number] 00:00:00 Test Item Value Reference Range Interpretation Comments GONORRHEA, TMA (test code = 11623) NEGATIVE CHLAMYDIA, TMA (test code = 54866) NEGATIVE PAP TEST, THINPREP, [id number] 00:00:00 Test Item Value Reference Range Interpretation Comments SOURCE: (test code = Endocervical 8001) SLIDES: (test code = 1 8011) LMP: (test code = 04/21/2021 8021) SPECIMEN ADEQUACY: (NOTE) (test code = 56748) INTERPRETATION: (test NILM/NO EPITH. code = 62920) ABNORMALITY;SEE BELOW OTHER COMMENTS: (test (NOTE) code = 8081) NAIL MAKER: BETTY (test code = 8101) COBY CRAIG(ASCP)IAC LOCATION: (test code (NOTE) = 40813) CPT: (test code = (NOTE) 8140) HPV HIGH RISK WITH GENOTYPE, [id number] 00:00:00 Test Item Value Reference Range Interpretation Comments HPV HIGH RISK INTERP (test code = NEGATIVE 88449) HPV 16 (test code = 19018) NEGATIVE HPV 18 (test code = 62129) NEGATIVE HPV, HR, OTHER GENOTYPES (test code NEGATIVE = 51273) GC AND CHLAMYDIA AMPLIFIED, [id number] 00:00:00 Test Item Value Reference Range Interpretation Comments GONORRHEA, TMA (test code = 91175) NEGATIVE CHLAMYDIA, TMA (test code = 10352) NEGATIVE GC AND CHLAMYDIA AMPLIFIED, [id number] 00:00:00 Test Item Value Reference Range Interpretation Comments GONORRHEA, TMA (test code = 42922) NEGATIVE CHLAMYDIA, TMA (test code = 90112) NEGATIVE PAP TEST, THINPREP, [id number] 00:00:00 Test Item Value Reference Range Interpretation Comments SOURCE: (test code = Endocervical 1) SLIDES: (test code = 1 8011) LMP: (test code = 04/21/2021 8021) SPECIMEN ADEQUACY: (NOTE) (test code = 31080) INTERPRETATION: (test NILM/NO EPITH. code = 95253) ABNORMALITY;SEE BELOW OTHER COMMENTS: (test (NOTE) code = 8081) NAIL MAKER: BETTY (test code = 8101) PARCHER,CT(ASCP)IAC LOCATION: (test code (NOTE) = 86844) CPT: (test code = (NOTE) 8140) PAP TEST, THINPREP, [id number] 00:00:00 Test Item Value Reference Range Interpretation Comments SOURCE: (test code = Endocervical 8001) SLIDES: (test code = 1 8011) LMP: (test code = 04/21/2021 8021) SPECIMEN ADEQUACY: (NOTE) (test code = 22711) INTERPRETATION: (test NILM/NO EPITH. code = 98683) ABNORMALITY;SEE BELOW OTHER COMMENTS: (test (NOTE) code = 8081) NAIL MAKER: BETTY (test code = 8101) KIARACT(ASCP)IAC LOCATION: (test code (NOTE) = 12030) CPT: (test code = (NOTE) 8140) HPV HIGH RISK WITH GENOTYPE, [id number] 00:00:00 Test Item Value Reference Range Interpretation Comments HPV HIGH RISK INTERP (test code = NEGATIVE 49615) HPV 16 (test code = 85972) NEGATIVE HPV 18 (test code = 06072) NEGATIVE HPV, HR, OTHER GENOTYPES (test code NEGATIVE = 67431) HPV HIGH RISK WITH GENOTYPE, [id number] 00:00:00 Test Item Value Reference Range Interpretation Comments HPV HIGH RISK INTERP (test code = NEGATIVE 63568) HPV 16 (test code = 33923) NEGATIVE HPV 18 (test code = 99763) NEGATIVE HPV, HR, OTHER GENOTYPES (test code NEGATIVE = 39352) GC AND CHLAMYDIA AMPLIFIED, [id number] 00:00:00 Test Item Value Reference Range Interpretation Comments GONORRHEA, TMA (test code = 77359) NEGATIVE CHLAMYDIA, TMA (test code = 41904) NEGATIVE GC AND CHLAMYDIA AMPLIFIED, [id number] 00:00:00 Test Item Value Reference Range Interpretation Comments GONORRHEA, TMA (test code = 87164) NEGATIVE CHLAMYDIA, TMA (test code = 29442) NEGATIVE PAP TEST, THINPREP, [id number] 00:00:00 Test Item Value Reference Range Interpretation Comments SOURCE: (test code = Endocervical 8001) SLIDES: (test code = 1 8011) LMP: (test code = 04/21/2021 8021) SPECIMEN ADEQUACY: (NOTE) (test code = 30808) INTERPRETATION: (test NILM/NO EPITH. code = 70645) ABNORMALITY;SEE BELOW OTHER COMMENTS: (test (NOTE) code = 8081) NAIL MAKER: BETTY (test code = 8101) COBY CRAIG(ASCP)IAC LOCATION: (test code (NOTE) = 86203) CPT: (test code = (NOTE) 8140) PAP TEST, THINPREP, [id number] 00:00:00 Test Item Value Reference Range Interpretation Comments SOURCE: (test code = Endocervical 8001) SLIDES: (test code = 1 8011) LMP: (test code = 04/21/2021 8021) SPECIMEN ADEQUACY: (NOTE) (test code = 99795) INTERPRETATION: (test NILM/NO EPITH. code = 88046) ABNORMALITY;SEE BELOW OTHER COMMENTS: (test (NOTE) code = 8081) NAIL MAKER: BETTY (test code = 8101) COBY CRAIG(ASCP)IAC LOCATION: (test code (NOTE) = 48411) CPT: (test code = (NOTE) 8140) HPV HIGH RISK WITH GENOTYPE, [id number] 00:00:00 Test Item Value Reference Range Interpretation Comments HPV HIGH RISK INTERP (test code = NEGATIVE 06584) HPV 16 (test code = 77109) NEGATIVE HPV 18 (test code = 69105) NEGATIVE HPV, HR, OTHER GENOTYPES (test code NEGATIVE = 68514) HPV HIGH RISK WITH GENOTYPE, [id number] 00:00:00 Test Item Value Reference Range Interpretation Comments HPV HIGH RISK INTERP (test code = NEGATIVE 43799) HPV 16 (test code = 99007) NEGATIVE HPV 18 (test code = 47966) NEGATIVE HPV, HR, OTHER GENOTYPES (test code NEGATIVE = 97042) VAGINAL PATHOGENS DNA [id number] 00:00:00 Test Item Value Reference Range Interpretation Comments DEMIAN SPECIES (test code = ) NEGATIVE G. VAGINALIS (test code = 42816) POSITIVE T. VAGINALIS (test code = 46198) NEGATIVE VAGINAL PATHOGENS DNA [id number] 00:00:00 Test Item Value Reference Range Interpretation Comments DEMIAN SPECIES (test code = 63692) NEGATIVE G. VAGINALIS (test code = 71222) POSITIVE T. VAGINALIS (test code = 69558) NEGATIVE VAGINAL PATHOGENS DNA [id number] 00:00:00 Test Item Value Reference Range Interpretation Comments DEMIAN SPECIES (test code = 44688) NEGATIVE G. VAGINALIS (test code = 72466) POSITIVE T. VAGINALIS (test code = 39195) NEGATIVE VAGINAL PATHOGENS DNA [id number] 00:00:00 Test Item Value Reference Range Interpretation Comments DEMIAN SPECIES (test code = 97379) NEGATIVE G. VAGINALIS (test code = 32805) POSITIVE T. VAGINALIS (test code = 76117) NEGATIVE VAGINAL PATHOGENS DNA [id number] 00:00:00 Test Item Value Reference Range Interpretation Comments DEMIAN SPECIES (test code = ) NEGATIVE G. VAGINALIS (test code = 38870) POSITIVE T. VAGINALIS (test code = 31062) NEGATIVE FREE [id number] 22:21:43 Test Item Value Reference Range Interpretation Comments FREE T4 (test code = See_Comment [Autom ated message] 2354036989) The system [employer] generated this result transmitted ref erence range: 0.78 - 2 .20 ng/dL:. The ref erence range was not u sed to interpret this result as normal/abnor mal. Lab Interpretation (test Normal code = 78396-0) [facility] [id number] 22:21:43 Test Item Value Reference Range Interpretation Comments FREE T4 (test code = See_Comment [Autom ated message] [id number]) The system [employer] generated this result transmitted ref erence range: 0.78 - 2 .20 ng/dL:. The ref erence range was not u sed to interpret this result as normal/abnor mal. Lab Interpretation (test Normal code = 15475-5) [facility] [id number] 21:24:56 Test Item Value Reference Interpretation Comments Range TROPONIN I (test <0.012 See_Comment [Automated code = 6190912395) message] The system which generated this result [...] biotin. Lab Interpretation Normal (test code = 01599-4) [id number] 21:24:56 Test Item Value Reference Interpretation Comments Range TROPONIN I (test <0.012 See_Comment [Automated code = 4007485963) message] The system which generated this result [...] biotin. Lab Interpretation Normal (test code = 51690-3) [facility] Test Item Value Reference Range Interpretation Comments MAGNESIUM (test code = 1065321926) 1.7 mg/dL 1.7-2.4 Lab Interpretation (test code = Normal 32891-3) [facility] Test Item Value Reference Range Interpretation Comments MAGNESIUM (test code = 8358193601) 1.7 mg/dL 1.7-2.4 Lab Interpretation (test code = Normal 63850-5) [facility] (12694[facility]2021-[facility]-26 21:14:18 Test Item Value Reference Range Interpretation Comments NA (test code = 139 mmol/L 135-145 7588044869) K (test code = 4.1 mmol/L 3.5-5.0 2700834425) CL (test code = 110 mmol/L 98-108 H 2762379109) CO2 TOTAL (test code = 25 mmol/L 23-31 8354444302) AGAP (test code = 2-16 4400793783) BUN (test code = 6 mg/dL 7-23 L 5815151253) GLUCOSE (test code = 96 mg/dL 70-110 9805089360) CREATININE (test code = 0.50 mg/dL 0.50-1.04 3977598814) TOTAL BILI (test code = 0.2 mg/dL 0.1-1.2 0378424198) CALCIUM (test code = 8.8 mg/dL 8.6-10.6 4407782528) T PROTEIN (test code = 6.9 g/dL 6.3-8.2 1874362877) ALBUMIN (test code = 4.0 g/dL 3.5-5.0 5746046161) ALK PHOS (test code = 73 U/L 34-122 8881972514) ALTv (test code = 15 U/L 5-35 1742-6) AST(SGOT) (test code = 20 U/L 13-40 7542284293) eGFR (test code = mL/min/1.73m2 7693285979) DIEGO (test code = DIEGO) Association of [...] tests). Lab Interpretation Abnormal (test code = 62925-7) [facility]. METABOLIC PANEL (18390)2021-04-26 21:14:18 Test Item Value Reference Range Interpretation Comments NA (test code = 139 mmol/L 135-145 1542323599) K (test code = 4.1 mmol/L 3.5-5.0 1256151552) CL (test code = 110 mmol/L 98-108 H 7561383783) CO2 TOTAL (test code = 25 mmol/L 23-31 8617223568) AGAP (test code = 2-16 1041977296) BUN (test code = 6 mg/dL 7-23 L 3023791203) GLUCOSE (test code = 96 mg/dL 70-110 8266802797) CREATININE (test code = 0.50 mg/dL 0.50-1.04 1212926709) TOTAL BILI (test code = 0.2 mg/dL 0.1-1.2 1367700448) CALCIUM (test code = 8.8 mg/dL 8.6-10.6 6335699609) T PROTEIN (test code = 6.9 g/dL 6.3-8.2 9841642263) ALBUMIN (test code = 4.0 g/dL 3.5-5.0 5987222816) ALK PHOS (test code = 73 U/L 34-122 2384304995) ALTv (test code = 15 U/L 5-35 2-6) AST(SGOT) (test code = 20 U/L 13-40 0338539870) eGFR (test code = mL/min/1.73m2 3413649221) DIEGO (test code = DIEGO) Association of [...] tests). Lab Interpretation Abnormal (test code = 75323-1) [facility] [id number] 21:14:17 Test Item Value Reference Range Interpretation Comments CK (test code = 7764737148) 35 U/L 33-194 Lab Interpretation (test code = Normal 72524-8) [facility] [id number] 21:14:17 Test Item Value Reference Range Interpretation Comments CK (test code = 1956576056) 35 U/L 33-194 Lab Interpretation (test code = Normal 37673-3) [facility] DRUG (IMMUNOASSAY) - COMPREHENSIVE DRUG SCREEN W/O [id number] 20:20:42 Test Item Value Reference Range Interpretation Comments AMPHET (test code = Negative Negative 0766879384) NASEEM U (test code = Negative Negative 6984150263) BENZO U (test code = Negative Negative 6729680291) Cocaine Metabolite (test Negative Negative code = 5849579242) METHADONE (test code = Negative Negative 5661986179) OPIATES (test code = Negative Negative 7911619138) PCP (test code = Negative Negative 2403753795) THC (test code = Presumptive Positive Negative A 8526147247) DIEGO (test code = DIEGO) Urine Drug [...] testing). Lab Interpretation (test Abnormal code = 13022-2) [facility] DRUG (IMMUNOASSAY) - COMPREHENSIVE DRUG SCREEN W/O [id number] 20:20:42 Test Item Value Reference Range Interpretation Comments AMPHET (test code = Negative Negative [id number]) NASEEM U (test code = Negative Negative 2206148568) BENZO U (test code = Negative Negative 0787003257) Cocaine Metabolite (test Negative Negative code = 8408664851) METHADONE (test code = Negative Negative 6799682973) OPIATES (test code = Negative Negative 5220724455) PCP (test code = Negative Negative 1288418162) THC (test code = Presumptive Positive Negative A 9696595998) DIEGO (test code = DIEGO) Urine Drug [...] testing). Lab Interpretation (test Abnormal code = 31462-5) [facility]2021-09-06 20:17:29 Test Item Value Reference Range Interpretation Comments ESR (test code = See_Comment [Automated message] [id number]) The system [employer] generated this result transmitted ref erence range: 0 - 20 m m/HR. The reference r dinora was not used to interpret this result as normal/abnor mal. Lab Interpretation (test Normal code = 22880-4) [facility] [place] 20:17:29 Test Item Value Reference Range Interpretation Comments ESR (test code = See_Comment [Automated message] [id number]) The system [employer] generated this result transmitted ref erence range: 0 - 20 m m/HR. The reference r dinora was not used to interpret this result as normal/abnor mal. Lab Interpretation (test Normal code = 31836-1) [facility] [id number] 20:14:11 Test Item Value Reference Range Interpretation Comments TSH (test code = See_Comment [Automated message] [id number]) The system [employer] generated this result transmitted ref erence range: 0.45 - 4 .70 mIU/L. The refe rence range was not u sed to interpret this result as normal/abnor mal. Lab Interpretation (test Normal code = 16026-5) [facility] [id number] 20:14:11 Test Item Value Reference Range Interpretation Comments TSH (test code = See_Comment [Automated message] [id number]) The system [employer] generated this result transmitted ref erence range: 0.45 - 4 .70 mIU/L. The refe rence range was not u sed to interpret this result as normal/abnor mal. Lab Interpretation (test Normal code = 24974-4) [facility] [id number] 20:03:34 Test Item Value Reference Range Interpretation Comments NT-proBNP (test code 42 pg/mL See_Comment [Autom ated = 7742560405) message] The system which generated this result transmitted reference range : <=125. The reference range was not used to interpret this result as normal/abnormal . DIEGO (test code = DIEGO) Biotin has been reported to cause a negative bias, interpret results relative to patient's use of biotin. Lab Interpretation Normal (test code = 86330-4) [facility] [id number] 20:03:34 Test Item Value Reference Range Interpretation Comments NT-proBNP (test code 42 pg/mL See_Comment [Autom ated = 0466359270) message] The system which generated this result transmitted reference range : <=125. The reference range was not used to interpret this result as normal/abnormal . DIEGO (test code = DIEGO) Biotin has been reported to cause a negative bias, interpret results relative to patient's use of biotin. Lab Interpretation Normal (test code = 65958-8) [facility] WITH [id number] 19:45:17 Test Item Value Reference Range Interpretation Comments WBC (test code = See_Comment H [Automated 8590-2) message] The sy stem which generated this result transmitted reference range : 4.30 - 11.10 10*3/?L. The reference range was not used to interpret this result as normal/abnormal . RBC (test code = See_Comment [Automated 592-8) message] The sy stem which generated this [...] RDW-SD (test code = 43.4 fL 39.0-49.9 35331-7) RDW-CV (test code = 12.5 % 12.0-15.5 788-0) PLT (test code = See_Comment H [Automated 777-3) message] The sy stem which generated this result transmitted reference range : 166 - 358 10*3/ ?L. The reference r dinora was not used to interpret this result as normal/abnormal . MPV (test code = 10.1 fL 9.5-12.9 00252-5) NRBC/100 WBC (test See_Comment [Automat ed code = 3998788326) message] The system which generated this result transmitted reference range : 0.0 - 10.0 /100 WBCs. The refer ence range was not u sed to interpret th is result as normal/abnormal . NRBC x10^3 (test code <0.01 See_Comment [Auto mated = 5084922421) message] The s ystem which generated this result transmitted reference range : 10*3/?L. The reference range was not used to interpret this result as normal/abnormal . GRAN MAT (NEUT) % 60.0 % (test code = 770-8) IMM GRAN % (test code 0.80 % = 8870984840) LYMPH % (test code = 31.1 % 736-9) MONO % (test code = 5.5 % 5905-5) EOS % (test code = 2.0 % 713-8) BASO % (test code = 0.6 % 706-2) GRAN MAT x10^3(ANC) 7.94 10*3/uL 1.88-7.09 H (test code = 3840133613) IMM GRAN x10^3 (test 0.11 10*3/uL 0.00-0.06 H code = 1118321491) LYMPH x10^3 (test code 4.13 10*3/uL 1.32-3.29 H = 731-0) MONO x10^3 (test code 0.73 10*3/uL 0.33-0.92 = 742-7) EOS x10^3 (test code = 0.27 10*3/uL 0.03-0.39 711-2) BASO x10^3 (test code 0.08 10*3/uL 0.01-0.07 H = 704-7) Lab Interpretation Abnormal (test code = 41094-1) [facility] WITH [id number] 19:45:17 Test Item Value Reference Range Interpretation [...] RDW-SD (test code = 43.4 fL 39.0-49.9 70909-2) RDW-CV (test code = 12.5 % 12.0-15.5 788-0) PLT (test code = See_Comment H [Automated 777-3) message] The sy stem which generated this result transmitted reference range : 166 - 358 10*3/ ?L. The reference r dinora was not used to interpret this result as normal/abnormal . MPV (test code = 10.1 fL 9.5-12.9 78943-2) NRBC/100 WBC (test See_Comment [Automat ed code = 8079882661) message] The system which generated this result transmitted reference range : 0.0 - 10.0 /100 WBCs. The refer ence range was not u sed to interpret th is result as normal/abnormal . NRBC x10^3 (test code <0.01 See_Comment [Auto mated = 3047168644) message] The s ystem which generated this result transmitted reference range : 10*3/?L. The reference range was not used to interpret this result as normal/abnormal . GRAN MAT (NEUT) % 60.0 % (test code = 770-8) IMM GRAN % (test code 0.80 % = 7085263998) LYMPH % (test code = 31.1 % 736-9) MONO % (test code = 5.5 % 5905-5) EOS % (test code = 2.0 % 713-8) BASO % (test code = 0.6 % 706-2) GRAN MAT x10^3(ANC) 7.94 10*3/uL 1.88-7.09 H (test code = 0289877118) IMM GRAN x10^3 (test 0.11 10*3/uL 0.00-0.06 H code = 6597955631) LYMPH x10^3 (test code 4.13 10*3/uL 1.32-3.29 H = 731-0) MONO x10^3 (test code 0.73 10*3/uL 0.33-0.92 = 742-7) EOS x10^3 (test code = 0.27 10*3/uL 0.03-0.39 711-2) BASO x10^3 (test code 0.08 10*3/uL 0.01-0.07 H = 704-7) Lab Interpretation Abnormal (test code = 92433-8) [facility] NOW RAPID TESTING)2021-04-26 19:33:11 Test Item Value Reference Range Interpretation Comments SARS-CoV-2 Rapid ID NOW Not Detected Not Detected (test code = 74771-7) DIEGO (test code = DIEGO) ID NOW COVID-19 Assay is an isothermal nucleic acid amplification test intended for the qualitative detection of nucleic acid from SARS-CoV-2 viral RNA in nasopharyngeal (UPHOLSTERY TECH) specimens. It is used under Emergency Use [...] indicated. Lab Interpretation Normal (test code = 64258-3) [facility] (ID NOW RAPID TESTING)2021-04-26 19:33:11 Test Item Value Reference Range Interpretation Comments SARS-CoV-2 Rapid ID NOW Not Detected Not Detected (test code = 00670-5) DIEGO (test code = DIEGO) ID NOW COVID-19 Assay is an isothermal nucleic acid amplification test intended for the qualitative detection of nucleic acid from SARS-CoV-2 viral RNA in nasopharyngeal (UPHOLSTERY TECH) specimens. It is used under Emergency Use [...] indicated. Lab Interpretation Normal (test code = 30619-5) [facility]CT [facility] [id number] 19:30:19 1. ?No acute intracranial abnormality. ? [...] alignment. The intervertebral disc spaces are preserved. [facility], Radiant Results Inft User - 04/26/2021 2:31 [...] reviewed this study and agree with the abovereport.[facility] SP[facility] WO [id number] 19:30:19 1. ?No acute intracranial abnormality. ? [...] reviewed this study and agree with the abovereport.[facility] [id number] 19:30:19 1. ?No acute intracranial abnormality. ? [...] reviewed this study and agree with the abovereport.[facility] CONTRAST 2021-04-26 19:30:19 1. [...] alignment. The intervertebral disc spaces are preserved. [facility], Radiant Results Inft User - 04/26/2021 2:31 [...] reviewed this study and agree with the abovereport.[facility]IS2021-09-06 19:29:14 Test Item Value Reference Range Interpretation Comments APPEARANCE (test code = Clear Clear 1601725858) COLOR (test code = Yellow Yellow 0165937328) PH (test code = 4.8-8.0 8195707636) SP GRAVITY (test code = 1.003-1.030 3647905810) GLU U QUAL (test code = Normal Normal 0507411012) BLOOD (test code = Negative Negative 8261392669) KETONES (test code = Negative Negative 6307625405) PROTEIN (test code = Negative Negative 2887-8) UROBILIN (test code = Normal Normal 6073653288) BILIRUBIN (test code = Negative Negative 4644365108) NITRITE (test code = Negative Negative 8688835080) LEUK DAKSHA (test code = Negative Negative 5894921113) RBC/HPF (test code = See_Comment [Autom ated message] 8829843504) The system [employer] generated this result transmitted ref erence range: 0 - 3 HP F. The reference range was not used to int erpret this result as normal/abnormal . WBC/HPF (test code = See_Comment [Autom ated message] 9490774341) The system [employer] generated this result transmitted ref erence range: 0 - 5 HP F. The reference range was not used to int erpret this result as normal/abnormal . BACTERIA (test code = Few Negative A 3701798196) SQ EPITH (test code = HPF 3359558921) Lab Interpretation (test Abnormal code = 16991-2) [facility] 19:29:14 Test Item Value Reference Range Interpretation Comments APPEARANCE (test code = Clear Clear 0503869239) COLOR (test code = Yellow Yellow 3522964742) PH (test code = 4.8-8.0 2731680175) SP GRAVITY (test code = 1.003-1.030 8572058438) GLU U QUAL (test code = Normal Normal 8816213612) BLOOD (test code = Negative Negative 9114586042) KETONES (test code = Negative Negative 8893665733) PROTEIN (test code = Negative Negative 2887-8) UROBILIN (test code = Normal Normal 7244853627) BILIRUBIN (test code = Negative Negative 0761856105) NITRITE (test code = Negative Negative 0692222420) LEUK DAKSHA (test code = Negative Negative 4289855854) RBC/HPF (test code = See_Comment [Autom ated message] 3926229504) The system [employer] generated this result transmitted ref erence range: 0 - 3 HP F. The reference range was not used to int erpret this result as normal/abnormal . WBC/HPF (test code = See_Comment [Autom ated message] 5842868138) The system [employer] generated this result transmitted ref erence range: 0 - 5 HP F. The reference range was not used to int erpret this result as normal/abnormal . BACTERIA (test code = Few Negative A 0434375413) SQ EPITH (test code = HPF 5956453484) Lab Interpretation (test Abnormal code = 76348-9) [facility] [id number] 18:24:00 Test Item Value Reference Range Interpretation Comments POCT PREG (test code = 1605) negative On board controls acceptable with present C Line (test code = 3574) POCT PREG LOT # (test code = 3575) [id number] POCT PREG TEST DATE (test 08/20/2022 code = 3576) Lab Interpretation (test code = Normal 74521-1) [facility] HospitalPOGA [id number] 18:24:00 Test Item Value Reference Range Interpretation Comments POCT PREG (test code = 1605) negative On board controls acceptable with present C Line (test code = 3574) POCT PREG LOT # (test code = 3575) [id number] POCT PREG TEST DATE (test 08/20/2022 code = 3576) Lab Interpretation (test code = Normal 40211-8) [facility]2021-[facility]-23 00:35:10 Test Item Value Reference Range Interpretation Comments APPEARANCE (test code = Clear Clear 2677206420) COLOR (test code = Yellow Yellow 4203715575) PH (test code = 4.8-8.0 1285864047) SP GRAVITY (test code = 1.003-1.030 2025361652) GLU U QUAL (test code = Normal Normal 6916125487) BLOOD (test code = 1+ Negative A 3349447498) KETONES (test code = Negative Negative 3921488489) PROTEIN (test code = Negative Negative 2887-8) UROBILIN (test code = Normal Normal 4266140608) BILIRUBIN (test code = Negative Negative 6444927069) NITRITE (test code = Negative Negative 8434837270) LEUK DAKSHA (test code = 75/uL Negative A 2782642273) RBC/HPF (test code = See_Comment H [Autom ated message] 1658147990) The system [employer] generated this result transmitted ref erence range: 0 - 3 HP F. The reference range was not used to int erpret this result as normal/abnormal . WBC/HPF (test code = See_Comment H [Autom ated message] 4819001969) The system [employer] generated this result transmitted ref erence range: 0 - 5 HP F. The reference range was not used to int erpret this result as normal/abnormal . BACTERIA (test code = Few Negative A 2040734100) SQ EPITH (test code = HPF 6409537010) Lab Interpretation (test Abnormal code = 34401-6) [facility]POCT [id number] 00:20:00 Test Item Value Reference Range Interpretation Comments POCT PREG (test code = 1605) negative On board controls acceptable with present C Line (test code = 3574) POCT PREG LOT # (test code = 3575) [id number] POCT PREG TEST DATE (test code = 3576) Lab Interpretation (test code = Normal 14629-5) [facility]HEMOGLOBIN [id number] 00:00:00 Test Item Value Reference Range Interpretation Comments HEMOGLOBIN A1c (test code = 87513) 5.3 % HEMOGLOBIN [id number] 00:00:00 Test Item Value Reference Range Interpretation Comments HEMOGLOBIN A1c (test code = 03651) 5.3 % LIPID [id number] 00:00:00 Test Item Value Reference Range Interpretation Comments CHOLESTEROL (test code = 2210) 205 MG/DL TRIGLYCERIDES (test code = 2232) 66 MG/DL HDL CHOLESTEROL (test code = 2220) 46 MG/DL CALC LDL CHOL (test code = 2237) 143 MG/DL RISK RATIO LDL/HDL (test code = 3.11 RATIO 2238) COMPREHENSIVE METABOLIC [id number] 00:00:00 Test Item Value Reference Range Interpretation Comments GLUCOSE (test code = 2217) 83 MG/DL BUN (test code = 2208) 6 MG/DL CREATININE (test code = 2214) 0.69 MG/DL eGFR AMER. (test code 131 ML/MIN/1.73 = 31495) eGFR NON- AMER. (test 113 ML/MIN/1.73 code = 82911) CALC BUN/CREAT (test code = 9 RATIO [...] CALC GLOBULIN (test code = 2.4 G/DL 2239) CALC A/G RATIO (test code = 2.0 RATIO 4) BILIRUBIN, TOTAL (test code = 0.2 MG/DL 2206) ALKALINE PHOSPHATASE (test 75 U/L code = 2204) AST (test code = 2218) 19 U/L ALT (test code = 2219) 18 U/L HEMOGLOBIN [id number] 00:00:00 Test Item Value Reference Range Interpretation Comments HEMOGLOBIN A1c (test code = 57166) 5.3 % HEMOGLOBIN [id number] 00:00:00 Test Item Value Reference Range Interpretation Comments HEMOGLOBIN A1c (test code = 18916) 5.3 % HEMOGLOBIN [id number] 00:00:00 Test Item Value Reference Range Interpretation Comments HEMOGLOBIN A1c (test code = 41985) 5.3 % LIPID [id number] 00:00:00 Test Item Value Reference Range Interpretation Comments CHOLESTEROL (test code = 2210) 205 MG/DL TRIGLYCERIDES (test code = 2232) 66 MG/DL HDL CHOLESTEROL (test code = 2220) 46 MG/DL CALC LDL CHOL (test code = 2237) 143 MG/DL RISK RATIO LDL/HDL (test code = 3.11 RATIO 2238) LIPID [id number] 00:00:00 Test Item Value Reference Range Interpretation Comments CHOLESTEROL (test code = 2210) 205 MG/DL TRIGLYCERIDES (test code = 2232) 66 MG/DL HDL CHOLESTEROL (test code = 2220) 46 MG/DL CALC LDL CHOL (test code = 2237) 143 MG/DL RISK RATIO LDL/HDL (test code = 3.11 RATIO 2238) COMPREHENSIVE METABOLIC [id number] 00:00:00 Test Item Value Reference Range Interpretation Comments GLUCOSE (test code = 2217) 83 MG/DL BUN (test code = 2208) 6 MG/DL CREATININE (test code = 2214) 0.69 MG/DL eGFR AMER. (test code 131 ML/MIN/1.73 = 51976) eGFR NON- AMER. (test 113 ML/MIN/1.73 code = 35954) CALC BUN/CREAT (test code = 9 RATIO [...] A/G RATIO (test code = 2.0 RATIO 2234) BILIRUBIN, TOTAL (test code = 0.2 MG/DL 2206) ALKALINE PHOSPHATASE (test 75 U/L code = 2204) AST (test code = 2218) 19 U/L ALT (test code = 2219) 18 U/L COMPREHENSIVE METABOLIC [id number] 00:00:00 Test Item Value Reference Range Interpretation Comments GLUCOSE (test code = 2217) 83 MG/DL BUN (test code = 2208) 6 MG/DL CREATININE (test code = 2214) 0.69 MG/DL eGFR AMER. (test code 131 ML/MIN/1.73 = 67541) eGFR NON- AMER. (test 113 ML/MIN/1.73 code = 58480) CALC BUN/CREAT (test code = 9 RATIO [...] CALC GLOBULIN (test code = 2.4 G/DL 2239) CALC A/G RATIO (test code = 2.0 RATIO 2233) BILIRUBIN, TOTAL (test code = 0.2 MG/DL 2206) ALKALINE PHOSPHATASE (test 75 U/L code = 2204) AST (test code = 2218) 19 U/L ALT (test code = 2219) 18 U/L HEMOGLOBIN [id number] 00:00:00 Test Item Value Reference Range Interpretation Comments HEMOGLOBIN A1c (test code = 32157) 5.3 % HEMOGLOBIN [id number] 00:00:00 Test Item Value Reference Range Interpretation Comments HEMOGLOBIN A1c (test code = 86937) 5.3 % HEMOGLOBIN [id number] 00:00:00 Test Item Value Reference Range Interpretation Comments HEMOGLOBIN A1c (test code = 69603) 5.3 % LIPID [id number] 00:00:00 Test Item Value Reference Range Interpretation Comments CHOLESTEROL (test code = 2210) 205 MG/DL TRIGLYCERIDES (test code = 2232) 66 MG/DL HDL CHOLESTEROL (test code = 2220) 46 MG/DL CALC LDL CHOL (test code = 2237) 143 MG/DL RISK RATIO LDL/HDL (test code = 3.11 RATIO 2238) LIPID [id number] 00:00:00 Test Item Value Reference Range Interpretation Comments CHOLESTEROL (test code = 2210) 205 MG/DL TRIGLYCERIDES (test code = 2232) 66 MG/DL HDL CHOLESTEROL (test code = 2220) 46 MG/DL CALC LDL CHOL (test code = 2237) 143 MG/DL RISK RATIO LDL/HDL (test code = 3.11 RATIO 2238) COMPREHENSIVE METABOLIC [id number] 00:00:00 Test Item Value Reference Range Interpretation Comments GLUCOSE (test code = 2217) 83 MG/DL BUN (test code = 2208) 6 MG/DL CREATININE (test code = 2214) 0.69 MG/DL eGFR AMER. (test code 131 ML/MIN/1.73 = 80627) eGFR NON- AMER. (test 113 ML/MIN/1.73 code = 18536) CALC BUN/CREAT (test code = 9 RATIO [...] CALC GLOBULIN (test code = 2.4 G/DL 2239) CALC A/G RATIO (test code = 2.0 RATIO 2234) BILIRUBIN, TOTAL (test code = 0.2 MG/DL 2206) ALKALINE PHOSPHATASE (test 75 U/L code = 2204) AST (test code = 2218) 19 U/L ALT (test code = 2219) 18 U/L COMPREHENSIVE METABOLIC [id number] 00:00:00 Test Item Value Reference Range Interpretation Comments GLUCOSE (test code = 2217) 83 MG/DL BUN (test code = 2208) 6 MG/DL CREATININE (test code = 2214) 0.69 MG/DL eGFR AMER. (test code 131 ML/MIN/1.73 = 26605) eGFR NON- AMER. (test 113 ML/MIN/1.73 code = 94323) CALC BUN/CREAT (test code = 9 RATIO 2235) SODIUM (test code = 2231) 137 MEQ/L POTASSIUM (test code = 2228) 4.5 MEQ/L CHLORIDE (test code = 2215) 104 MEQ/L CARBON DIOXIDE (test code = 24 MEQ/L 220) CALCIUM (test code = 2209) 9.9 MG/DL PROTEIN, TOTAL (test code = 7.2 G/DL 2228) ALBUMIN (test code = 2201) 4.8 G/DL CALC GLOBULIN (test code = 2.4 G/DL 2240) CALC A/G RATIO (test code = 2.0 RATIO 2234) BILIRUBIN, TOTAL (test code = 0.2 MG/DL 2206) ALKALINE PHOSPHATASE (test 75 U/L code = 2204) AST (test code = 2218) 19 U/L ALT (test code = 2219) 18 U/L CULTURE, [id number] 00:00:00 Test Item Value Reference Range Interpretation Comments CULTURE, ROUTINE (test SPECIMEN NUMBER: code = 09154) [id number] CULTURE, [id number] 00:00:00 Test Item Value Reference Range Interpretation Comments CULTURE, ROUTINE (test SPECIMEN NUMBER: code = 84962) [id number] CULTURE, [id number] 00:00:00 Test Item Value Reference Range Interpretation Comments CULTURE, ROUTINE (test SPECIMEN NUMBER: code = 42438) [id number] CULTURE, [id number] 00:00:00 Test Item Value Reference Range Interpretation Comments CULTURE, ROUTINE (test SPECIMEN NUMBER: code = 16067) [id number] CULTURE, [id number] 00:00:00 Test Item Value Reference Range Interpretation Comments CULTURE, ROUTINE (test SPECIMEN NUMBER: code = 92725) [id number] CULTURE, [id number] 00:00:00 Test Item Value Reference Range Interpretation Comments CULTURE, ROUTINE (test SPECIMEN NUMBER: code = 11084) [id number] CULTURE, [id number] 00:00:00 Test Item Value Reference Range Interpretation Comments CULTURE, ROUTINE (test SPECIMEN NUMBER: code = 45340) [id number] CULTURE, [id number] 00:00:00 Test Item Value Reference Range Interpretation Comments CULTURE, ROUTINE (test SPECIMEN NUMBER: code = 21476) [id number] RAPID STREP SCREEN FOR GROUP [id number] 17:29:00 Test Item Value Reference Range Interpretation Comments Streptococcus pyogenes (group A) Negative Negative antigen (test code = 04718-6) Lab Interpretation (test code = Normal 56437-8) [facility]. METABOLIC PANEL (59255)2020-04-29 17:27:00 Test Item Value Reference Range Interpretation Comments NA (test code = 137 mmol/L 135-145 8031436846) K (test code = 4.7 mmol/L 3.5-5 4512898546) CL (test code = 103 mmol/L 98-108 9880702496) CO2 TOTAL (test code = 23 mmol/L 23-31 6952596250) AGAP (test code = 2-16 0896864604) BUN (test code = 5 mg/dL 7-23 L 0324267358) GLUCOSE (test code = 93 mg/dL 70-110 3934621843) CREATININE (test code = 0.61 mg/dL 0.5-1.04 9745151378) TOTAL BILI (test code = 0.3 mg/dL 0.1-1.2 1230917376) CALCIUM (test code = 9.9 mg/dL 8.6-10.6 2266545303) T PROTEIN (test code = 7.5 g/dL 6.3-8.2 5477643340) ALBUMIN (test code = 4.3 g/dL 3.5-5 4822947710) ALK PHOS (test code = 82 U/L 34-122 8057455705) ALTv (test code = 23 U/L 5-35 1742-6) AST(SGOT) (test code = 36 U/L 13-40 1862368769) eGFR Calculation mL/min/1.73m2 (Non-) (test code = 7447893116) eGFR Calculation mL/min/1.73m2 () (test code = 3991230023) DIEGO (test code = DIEGO) Association of [...] tests). Lab Interpretation Abnormal (test code = 66114-0) [facility] [id number] 17:09:41 No radiographic evidence of osteomyelitis. Preliminary Report Dictated by Resident: Yousuf Robison MD., have reviewed this study and agree with becky report.XR KNEE 3 VW LEFTHISTORY: 35 years-old [...] erosion. Surgical clips at theamputation site visualized. [facility], Radiant ResultsInft User - 04/29/2020 12:10 PM [...] have reviewed this study and agree with t jessica report.[facility] WITH [id number] 17:07:00 Test Item Value Reference Range Interpretation [...] RDW-SD (test code = 44.5 fL 39-49.9 85622-0) RDW-CV (test code = 13.1 % 12-15.5 788-0) PLT (test code = See_Comment H [Automated 777-3) message] The sy stem which generated this result transmitted reference range : 166 - 358 10*3/ ?L. The reference r dinora was not used to interpret this result as normal/abnormal . MPV (test code = 9.6 fL 9.5-12.9 35956-2) NRBC/100 WBC (test See_Comment [Automat ed code = 0071049313) message] The system which generated this result transmitted reference range : 0.0 - 10.0 /100 WBCs. The refer ence range was not u sed to interpret th is result as normal/abnormal . NRBC x10^3 (test code <0.01 See_Comment [Auto mated = 4026497415) message] The s ystem which generated this result transmitted reference range : 10*3/?L. The reference range was not used to interpret this result as normal/abnormal . GRAN MAT (NEUT) % 59.4 % (test code = 770-8) IMM GRAN % (test code 0.70 % = 5885265187) LYMPH % (test code = 31.3 % 736-9) MONO % (test code = 5.8 % 5905-5) EOS % (test code = 2.0 % 713-8) BASO % (test code = 0.8 % 706-2) GRAN MAT x10^3(ANC) 7.54 10*3/uL 1.88-7.09 H (test code = 0328075176) IMM GRAN x10^3 (test 0.09 10*3/uL 0-0.06 H code = 4643125265) LYMPH x10^3 (test code 3.98 10*3/uL 1.32-3.29 H = 731-0) MONO x10^3 (test code 0.74 10*3/uL 0.33-0.92 = 742-7) EOS x10^3 (test code = 0.25 10*3/uL 0.03-0.39 711-2) BASO x10^3 (test code 0.10 10*3/uL 0.01-0.07 H = 704-7) Lab Interpretation Abnormal (test code = 99146-9) [facility] [id number] 16:24:00 Test Item Value Reference Range Interpretation Comments POCT PREG (test code = 1605) negative POCT PREG LOT # (test code = 3575) [id number] POCT PREG TEST DATE (test 03/20/2021 code = 3576) Lab Interpretation (test code = Normal 28806-9) [facility], [id number] 00:00:00 Test Item Value Reference Range Interpretation Comments CULTURE, ROUTINE (test SPECIMEN NUMBER: code = 99966) [id number] CULTURE, [id number] 00:00:00 Test Item Value Reference Range Interpretation Comments CULTURE, ROUTINE (test SPECIMEN NUMBER: code = 69123) [id number] CULTURE, [id number] 00:00:00 Test Item Value Reference Range Interpretation Comments CULTURE, ROUTINE (test SPECIMEN NUMBER: code = 02399) [id number] CULTURE, [id number] 00:00:00 Test Item Value Reference Range Interpretation Comments CULTURE, ROUTINE (test SPECIMEN NUMBER: code = 24760) [id number] CULTURE, [id number] 00:00:00 Test Item Value Reference Range Interpretation Comments CULTURE, ROUTINE (test SPECIMEN NUMBER: code = 72212) [id number] CULTURE, [id number] 00:00:00 Test Item Value Reference Range Interpretation Comments CULTURE, ROUTINE (test SPECIMEN NUMBER: code = 58677) [id number] CULTURE, [id number] 00:00:00 Test Item Value Reference Range Interpretation Comments CULTURE, ROUTINE (test SPECIMEN NUMBER: code = 09128) [id number] CULTURE, [id number] 00:00:00 Test Item Value Reference Range Interpretation Comments CULTURE, ROUTINE (test SPECIMEN NUMBER: code = 48839) [id number] TRICHOMONAS, URINE, [id number] 00:00:00 Test Item Value Reference Range Interpretation Comments TRICHOMONAS, URINE, AMP (test code = NEGATIVE 99808) TRICHOMONAS, URINE, [id number] 00:00:00 Test Item Value Reference Range Interpretation Comments TRICHOMONAS, URINE, AMP (test code = NEGATIVE 72713) TRICHOMONAS, URINE, [id number] 00:00:00 Test Item Value Reference Range Interpretation Comments TRICHOMONAS, URINE, AMP (test code = NEGATIVE 80176) TRICHOMONAS, URINE, [id number] 00:00:00 Test Item Value Reference Range Interpretation Comments TRICHOMONAS, URINE, AMP (test code = NEGATIVE 47345) TRICHOMONAS, URINE, [id number] 00:00:00 Test Item Value Reference Range Interpretation Comments TRICHOMONAS, URINE, AMP (test code = NEGATIVE 71608) HIV AB/AG COMBO RFLX [id number] 00:00:00 Test Item Value Reference Range Interpretation Comments HIV 1/2 4TH GEN, RFLX CONF (test NON-REACTIVE code = 3514) TRICHOMONAS, URINE, [id number] 00:00:00 Test Item Value Reference Range Interpretation Comments TRICHOMONAS, URINE, AMP (test code = POSITIVE 43224) ACUTE HEPATITIS [id number] 00:00:00 Test Item Value Reference Range Interpretation Comments HEPATITIS A IgM (test code = NON-REACTIVE 72389) HEPATITIS B CORE IgM (test code NON-REACTIVE = 4644) HEPATITIS B SURF AG (test code = NON-REACTIVE 2739) HEPATITIS C ANTIBODY (test code NON-REACTIVE = 4675) INTERPRETATION HEPATITIS A: (NOTE) (test code = 2552) INTERPRETATION HEPATITIS B: (NOTE) (test code = 19777) INTERPRETATION HEPATITIS C: (NOTE) (test code = 38906) [id number] 00:00:00 Test Item Value Reference Range Interpretation Comments RPR RESULT (test code = NON-REACTIVE 3501) RPR TITER (test code = 3500) NOT INDIC. TITER [id number] 00:00:00 Test Item Value Reference Range Interpretation Comments RPR RESULT (test code = NON-REACTIVE 3501) RPR TITER (test code = 3500) NOT INDIC. TITER TRICHOMONAS, URINE, [id number] 00:00:00 Test Item Value Reference Range Interpretation Comments TRICHOMONAS, URINE, AMP (test code = POSITIVE 63991) HIV AB/AG COMBO RFLX [id number] 00:00:00 Test Item Value Reference Range Interpretation Comments HIV 1/2 4TH GEN, RFLX CONF (test NON-REACTIVE code = 3514) TRICHOMONAS, URINE, [id number] 00:00:00 Test Item Value Reference Range Interpretation Comments TRICHOMONAS, URINE, AMP (test code = POSITIVE 57275) HIV AB/AG COMBO RFLX [id number] 00:00:00 Test Item Value Reference Range Interpretation Comments HIV 1/2 4TH GEN, RFLX CONF (test NON-REACTIVE code = 3514) ACUTE HEPATITIS [id number] 00:00:00 Test Item Value Reference Range Interpretation Comments HEPATITIS A IgM (test code = NON-REACTIVE 63190) HEPATITIS B CORE IgM (test code NON-REACTIVE = 4644) HEPATITIS B SURF AG (test code = NON-REACTIVE 2739) HEPATITIS C ANTIBODY (test code NON-REACTIVE = 4675) INTERPRETATION HEPATITIS A: (NOTE) (test code = 2552) INTERPRETATION HEPATITIS B: (NOTE) (test code = 04946) INTERPRETATION HEPATITIS C: (NOTE) (test code = 48291) ACUTE HEPATITIS [id number] 00:00:00 Test Item Value Reference Range Interpretation Comments HEPATITIS A IgM (test code = NON-REACTIVE 66126) HEPATITIS B CORE IgM (test code NON-REACTIVE = 4644) HEPATITIS B SURF AG (test code = NON-REACTIVE 2739) HEPATITIS C ANTIBODY (test code NON-REACTIVE = 4675) INTERPRETATION HEPATITIS A: (NOTE) (test code = 2552) INTERPRETATION HEPATITIS B: (NOTE) (test code = 47760) INTERPRETATION HEPATITIS C: (NOTE) (test code = 52583) [id number] 00:00:00 Test Item Value Reference Range Interpretation Comments RPR RESULT (test code = NON-REACTIVE 3501) RPR TITER (test code = 3500) NOT INDIC. TITER [id number] 00:00:00 Test Item Value Reference Range Interpretation Comments RPR RESULT (test code = NON-REACTIVE 3501) RPR TITER (test code = 3500) NOT INDIC. TITER [id number] 00:00:00 Test Item Value Reference Range Interpretation Comments RPR RESULT (test code = NON-REACTIVE 3501) RPR TITER (test code = 3500) NOT INDIC. TITER HIV AB/AG COMBO RFLX [id number] 00:00:00 Test Item Value Reference Range Interpretation Comments HIV 1/2 4TH GEN, RFLX CONF (test NON-REACTIVE code = 3514) TRICHOMONAS, URINE, [id number] 00:00:00 Test Item Value Reference Range Interpretation Comments TRICHOMONAS, URINE, AMP (test code = POSITIVE 19429) HIV AB/AG COMBO RFLX [id number] 00:00:00 Test Item Value Reference Range Interpretation Comments HIV 1/2 4TH GEN, RFLX CONF (test NON-REACTIVE code = 3514) TRICHOMONAS, URINE, [id number] 00:00:00 Test Item Value Reference Range Interpretation Comments TRICHOMONAS, URINE, AMP (test code = POSITIVE 56305) ACUTE HEPATITIS [id number] 00:00:00 Test Item Value Reference Range Interpretation Comments HEPATITIS A IgM (test code = NON-REACTIVE 00431) HEPATITIS B CORE IgM (test code NON-REACTIVE = 4644) HEPATITIS B SURF AG (test code = NON-REACTIVE 2739) HEPATITIS C ANTIBODY (test code NON-REACTIVE = 4675) INTERPRETATION HEPATITIS A: (NOTE) (test code = 2552) INTERPRETATION HEPATITIS B: (NOTE) (test code = 82549) INTERPRETATION HEPATITIS C: (NOTE) (test code = 50742) ACUTE HEPATITIS [id number] 00:00:00 Test Item Value Reference Range Interpretation Comments HEPATITIS A IgM (test code = NON-REACTIVE 34134) HEPATITIS B CORE IgM (test code NON-REACTIVE = 4644) HEPATITIS B SURF AG (test code = NON-REACTIVE 2739) HEPATITIS C ANTIBODY (test code NON-REACTIVE = 4657) INTERPRETATION HEPATITIS A: (NOTE) (test code = 2552) INTERPRETATION HEPATITIS B: (NOTE) (test code = 82120) INTERPRETATION HEPATITIS C: (NOTE) (test code = 97271) [id number] 00:00:00 Test Item Value Reference Range Interpretation Comments RPR RESULT (test code = NON-REACTIVE 3501) RPR TITER (test code = 3500) NOT INDIC. TITER [id number] 00:00:00 Test Item Value Reference Range Interpretation Comments RPR RESULT (test code = NON-REACTIVE 3501) RPR TITER (test code = 3500) NOT INDIC. TITER [id number] 00:00:00 Test Item Value Reference Range Interpretation Comments RPR RESULT (test code = NON-REACTIVE 3501) RPR TITER (test code = 3500) NOT INDIC. TITER GC AND CHLAMYDIA AMPLIFIED, [id number] 00:00:00 Test Item Value Reference Range Interpretation Comments GONORRHEA, TMA (test code = 85681) POSITIVE CHLAMYDIA, TMA (test code = 27700) NEGATIVE PAP TEST, THINPREP, [id number] 00:00:00 Test Item Value Reference Range Interpretation Comments SOURCE: (test code = Cervical/Endocervical 8001) SLIDES: (test code = 1 8011) LMP: (test code = 8021) 07/23/2019 SPECIMEN ADEQUACY: (test (NOTE) code = 25240) INTERPRETATION: (test NILM/NO EPITH. code = 65120) ABNORMALITY;SEE BELOW OTHER COMMENTS: (test (NOTE) code = 8081) NAIL MAKER: (test Eli code = 8101) COBY Reese(ASCP)IAC QC TECHNOLOGIST: (test COBY WOLF(ASCP) code = 8111) LOCATION: (test code = (NOTE) 39175) CPT: (test code = 8140) (NOTE) GC AND CHLAMYDIA AMPLIFIED, [id number] 00:00:00 Test Item Value Reference Range Interpretation Comments GONORRHEA, TMA (test code = 14306) POSITIVE CHLAMYDIA, TMA (test code = 09300) NEGATIVE GC AND CHLAMYDIA AMPLIFIED, [id number] 00:00:00 Test Item Value Reference Range Interpretation Comments GONORRHEA, TMA (test code = 33878) POSITIVE CHLAMYDIA, TMA (test code = 16559) NEGATIVE PAP TEST, THINPREP, [id number] 00:00:00 Test Item Value Reference Range Interpretation Comments SOURCE: (test code = Cervical/Endocervical 8001) SLIDES: (test code = 1 8011) LMP: (test code = 8021) 07/23/2019 SPECIMEN ADEQUACY: (test (NOTE) code = 01384) INTERPRETATION: (test NILM/NO EPITH. code = 12939) ABNORMALITY;SEE BELOW OTHER COMMENTS: (test (NOTE) code = 8081) NAIL MAKER: (test Eli code = 8101) COBY Reese(ASCP)IAC QC TECHNOLOGIST: (test PARK TALBOTCT(ASCP) code = 8111) LOCATION: (test code = (NOTE) 53228) CPT: (test code = 8140) (NOTE) PAP TEST, THINPREP, [id number] 00:00:00 Test Item Value Reference Range Interpretation Comments SOURCE: (test code = Cervical/Endocervical 8001) SLIDES: (test code = 1 8011) LMP: (test code = 8021) 07/23/2019 SPECIMEN ADEQUACY: (test (NOTE) code = 20456) INTERPRETATION: (test NILM/NO EPITH. code = 55743) ABNORMALITY;SEE BELOW OTHER COMMENTS: (test (NOTE) code = 8081) NAIL MAKER: (test Eli code = 8101) COBY Reese(ASCP)IAC QC TECHNOLOGIST: (test PARK TALBOTCT(ASCP) code = 8111) LOCATION: (test code = (NOTE) 64838) CPT: (test code = 8140) (NOTE) GC AND CHLAMYDIA AMPLIFIED, [id number] 00:00:00 Test Item Value Reference Range Interpretation Comments GONORRHEA, TMA (test code = 06197) POSITIVE CHLAMYDIA, TMA (test code = 08161) NEGATIVE GC AND CHLAMYDIA AMPLIFIED, [id number] 00:00:00 Test Item Value Reference Range Interpretation Comments GONORRHEA, TMA (test code = 52041) POSITIVE CHLAMYDIA, TMA (test code = 46637) NEGATIVE PAP TEST, THINPREP, [id number] 00:00:00 Test Item Value Reference Range Interpretation Comments SOURCE: (test code = Cervical/Endocervical 8001) SLIDES: (test code = 1 8011) LMP: (test code = 8021) 07/23/2019 SPECIMEN ADEQUACY: (test (NOTE) code = 61715) INTERPRETATION: (test NILM/NO EPITH. code = 62817) ABNORMALITY;SEE BELOW OTHER COMMENTS: (test (NOTE) code = 8081) NAIL MAKER: (test Eli code = 8101) COBY Reese(ASCP)IAC QC TECHNOLOGIST: (test PARK TALBOTCT(ASCP) code = 8111) LOCATION: (test code = (NOTE) 37981) CPT: (test code = 8140) (NOTE) PAP TEST, THINPREP, [id number] 00:00:00 Test Item Value Reference Range Interpretation Comments SOURCE: (test code = Cervical/Endocervical 8001) SLIDES: (test code = 1 8011) LMP: (test code = 8021) 07/23/2019 SPECIMEN ADEQUACY: (test (NOTE) code = 92049) INTERPRETATION: (test NILM/NO EPITH. code = 63152) ABNORMALITY;SEE BELOW OTHER COMMENTS: (test (NOTE) code = 8081) NAIL MAKER: (test Eli code = 8101) COBY Reese(ASCP)IAC QC TECHNOLOGIST: (test PARK TALBOTCT(ASCP) code = 8111) LOCATION: (test code = (NOTE) 73539) CPT: (test code = 8140) (NOTE) VAGINAL PATHOGENS DNA [id number] 00:00:00 Test Item Value Reference Range Interpretation Comments DEMIAN SPECIES (test code = ) NEGATIVE G. VAGINALIS (test code = ) POSITIVE T. VAGINALIS (test code = ) POSITIVE HPV HIGH RISK WITH GENOTYPE, [id number] 00:00:00 Test Item Value Reference Range Interpretation Comments HPV HIGH RISK INTERP (test code = POSITIVE 58866) HPV 16 (test code = 20402) NEGATIVE HPV 18 (test code = 11468) NEGATIVE HPV, HR, OTHER GENOTYPES (test code POSITIVE = 73027) VAGINAL PATHOGENS DNA [id number] 00:00:00 Test Item Value Reference Range Interpretation Comments DEMIAN SPECIES (test code = ) NEGATIVE G. VAGINALIS (test code = 75049) POSITIVE T. VAGINALIS (test code = ) POSITIVE VAGINAL PATHOGENS DNA [id number] 00:00:00 Test Item Value Reference Range Interpretation Comments DEMIAN SPECIES (test code = ) NEGATIVE G. VAGINALIS (test code = 34581) POSITIVE T. VAGINALIS (test code = ) POSITIVE HPV HIGH RISK WITH GENOTYPE, [id number] 00:00:00 Test Item Value Reference Range Interpretation Comments HPV HIGH RISK INTERP (test code = POSITIVE 42761) HPV 16 (test code = 06159) NEGATIVE HPV 18 (test code = 08636) NEGATIVE HPV, HR, OTHER GENOTYPES (test code POSITIVE = 40796) HPV HIGH RISK WITH GENOTYPE, [id number] 00:00:00 Test Item Value Reference Range Interpretation Comments HPV HIGH RISK INTERP (test code = POSITIVE 45900) HPV 16 (test code = 45887) NEGATIVE HPV 18 (test code = 72836) NEGATIVE HPV, HR, OTHER GENOTYPES (test code POSITIVE = 09049) VAGINAL PATHOGENS DNA [id number] 00:00:00 Test Item Value Reference Range Interpretation Comments DEMIAN SPECIES (test code = ) NEGATIVE G. VAGINALIS (test code = ) POSITIVE T. VAGINALIS (test code = ) POSITIVE VAGINAL PATHOGENS DNA [id number] 00:00:00 Test Item Value Reference Range Interpretation Comments DEMIAN SPECIES (test code = ) NEGATIVE G. VAGINALIS (test code = 88525) POSITIVE T. VAGINALIS (test code = ) POSITIVE HPV HIGH RISK WITH GENOTYPE, [id number] 00:00:00 Test Item Value Reference Range Interpretation Comments HPV HIGH RISK INTERP (test code = POSITIVE 64801) HPV 16 (test code = 67345) NEGATIVE HPV 18 (test code = 35784) NEGATIVE HPV, HR, OTHER GENOTYPES (test code POSITIVE = 07832) HPV HIGH RISK WITH GENOTYPE, [id number] 00:00:00 Test Item Value Reference Range Interpretation Comments HPV HIGH RISK INTERP (test code = POSITIVE 92690) HPV 16 (test code = 88770) NEGATIVE HPV 18 (test code = 91584) NEGATIVE HPV, HR, OTHER GENOTYPES (test code POSITIVE = 13134) POCT [id number] 04:24:00 Test Item Value Reference Range Interpretation Comments POCT PREG (test code = 1605) negative On board controls acceptable with yes C Line (test code = 3574) POCT PREG LOT # (test code = 3575) [id number] POCT PREG TEST DATE (test 08/20/2020 code = 3576) Lab Interpretation (test code = Normal 60539-6) [id number] 13:26:00 Test Item Value Reference Range Interpretation Comments HEMOGLOBIN A1C (BEAKER) (test code = 5.2 % 4.3-6.1 368) CBC W/PLT COUNT & AUTO [id number] 09:42:00 Test Item Value Reference Range Interpretation [...] MORPHOLOGY (BEAKER) (test code Normal = 762) [id number] 07:11:00 Test Item Value Reference Range Interpretation Comments MAGNESIUM (BEAKER) (test code = 1.5 mg/dL 1.6-2.6 L 627) BASIC METABOLIC [id number] 07:11:00 Test Item Value Reference Range Interpretation [...] NOT APPLICABLE FOR DIALYSIS PATIEN TS. LIPID [id number] 07:11:00 Test Item Value Reference Range Interpretation [...] acidosis, acute neurological disease, and persistent tachyarrhythmia.TROPONIN [id number] 23:58:00 Test Item Value Reference Range Interpretation [...]
[2022-06-16 08:34] LABS: Urine Blood Negative (Negative); Urine Glucose Negative (Negative); Urine Protein Negative (Negative); Urine Specific Gravity 1.015 (1.005-1.030)
[2022-06-16] MEDS ORDERED: Ringers Lactate 1,000 ML IV ONE (08:42)
[2022-06-16 08:47] LABS: Absolute Lymphocytes (CBC) 2.4 K/uL (0.7-4.9); Hematocrit 36.4 % (36.0-45.0); Lymphocytes % 23.8 % (15.3-44.8); MPV 7.4 fL (7.6-11.3); RBC Red Blood Cell Count 3.96 M/uL (3.86-4.86)
[2022-06-16 08:49] LABS: Protime INR 0.97
[2022-06-16 09:05] LABS: ALT/SGPT 19 U/L (12-78); AST/SGOT 8 U/L (15-37); Albumin 3.8 g/dL (3.4-5.0); Alkaline Phosphatase 68 U/L (45-117); BUN Blood Urea Nitrogen 9 mg/dL (7-18); Bicarbonate 25 mmol/L (21-32); Bilirubin Total 0.2 mg/dL (0.2-1.0); Glomerular Filtration Rate 118 ml/min (=/>90); Glucose Level 96 mg/dL (74-106); Magnesium 1.9 mg/dL (1.8-2.4); NT PRO-BNP 156 pg/mL (<125); Potassium 3.8 mmol/L (3.5-5.1); Protein, Total 7.4 g/dL (6.4-8.2); Sodium Level 140 mmol/L (136-145); Troponin High Sensitivity 3.5 pg/mL (<58.9)
--- NOTE | 2022-06-16 09:06 | RAD REPORT ---
EXAM DESCRIPTION: RAD - Chest Single View - 06/16/2022 8:40 am CLINICAL HISTORY: syncope COMPARISON: <Comparisons> FINDINGS: Lines: None. Lungs: No evidence of edema or pneumonia. Pleural: No significant pleural effusions or pneumothorax. Cardiac: The heart size is within normal limits. Mediastinum: Within normal limits. Bones: No acute fractures. Other: None IMPRESSION: No acute cardiopulmonary disease.
[2022-06-16 09:08] LABS: Bilirubin Direct < 0.1 mg/dL (0-0.2)
--- NOTE | 2022-06-16 09:51 | RAD REPORT ---
EXAM DESCRIPTION: CT - Head Brain Wo Cont - 06/16/2022 9:38 am CLINICAL HISTORY: syncope COMPARISON: Head Brain Wo Cont dated 03/30/2019; Head Brain Wo Cont dated 11/02/2017 TECHNIQUE: All CT scans are performed using dose optimization technique as appropriate and may inclu de automated exposure control or mA/KV adjustment according to patient size. FINDINGS: No intracranial hemorrhage, hydrocephalus or extra-axial fluid collection.No areas of brai n edema or evidence of midline shift. The paranasal sinuses and mastoids are clear. The calvarium is intact. IMPRESSION: No acute intracranial abnormality.
--- NOTE | 2022-06-16 10:31 | ER ---
Nurse's Notes [facility] Name: Natasha Spann Age: 37 yrs Sex: Female : 1985 Arrival Date: 06/16/2022 Time: 08:03 Bed 20 Private MD: Diagnosis: Syncope Near Presentation: 06/16 08:16 Chief complaint: Patient states: Dizziness, fatigue, weight loss, states, " I feel like ph my sugar is bottoming out or something." denies hx of DM, also states, " I had blood work done recently and they said my thyroid is off but they haven't done anything about it." Dizziness started on Monday. Coronavirus screen: Vaccine status: Patient reports receiving the 2nd dose of the covid vaccine. Ebola Screen: No symptoms or risks identified at this time. Initial Sepsis Screen: Does the patient meet any 2 criteria? No. Patient's initial sepsis screen is negative. Does the patient have a suspected source of infection? No. Patient's initial sepsis screen is negative. Risk Assessment: Do you want to hurt yourself or someone else? Patient reports no desire to harm self or others. Note Triage FSBG 89. Onset of symptoms was June 16, 2022. 08:16 Method Of Arrival: Ambulatory ph 08:16 Acuity: EMILY 3 ph Triage Assessment: 08:19 General: Appears in no apparent distress. Behavior is calm, cooperative, Denies fever. ph General: Reports fatigue for. Pain: Denies pain. Neuro: Level of Consciousness is awake, alert, obeys commands, Oriented to person, place, time, situation, Reports dizziness. Historical: - Allergies: 08:19 bupropion HCl; ph 08:19 Levofloxacin; ph 08:19 Wellbutrin; ph 08:19 Iodine; ph - PMHx: 08:19 ADD/ADHD; Anxiety; Bipolar disorder; Depression; Endometrosis; Gastric Reflux; MRSA; ph osteomylitis; Ovarian cyst; UTI; - PSHx: 08:19 L BKA; ph - Immunization history:: Adult Immunizations unknown. - Social history:: Smoking status: unknown. Screenin:29 Abuse screen: Denies threats or abuse. Denies injuries from another. Nutritional mb8 screening: No deficits noted. Tuberculosis screening: No symptoms or risk factors identified. Fall Risk None identified. 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 Full function Gait is steady, Speech is normal, Facial symmetry appears normal, Pupils are PERRLA, Pupil Size: 4 Intact Reports dizziness, a syncopal episode weakness Denies blurred vision paresthesias numbness photophobia diplopia. Cardiovascular: No deficits noted. Denies chest pain, shortness of breath, Respiratory: No deficits noted. Denies cough, shortness of breath. GI: Reports diarrhea, Patient currently denies nausea, vomiting. : Denies burning with urination, cramping incontinence, urinary frequency. 09:10 Reassessment: Patient and/or family updated on plan of care and expected duration. Pain mb8 level reassessed. Patient is alert, oriented x 3, equal unlabored respirations, skin warm/dry/pink. 09:31 Reassessment: Patient and/or family updated on plan of care and expected duration. Pain mb8 level reassessed. Patient is alert, oriented x 3, equal unlabored respirations, skin warm/dry/pink. 10:15 Reassessment: Patient and/or family updated on plan of care and expected duration. Pain mb8 level reassessed. Patient is alert, oriented x 3, equal unlabored respirations, skin warm/dry/pink. Vital Signs: 08:16 BP 148 / 88; Pulse 85; Resp 18; Temp 98.4; Pulse Ox 100% on R/A; Weight 77.11 kg; ph Height 5 ft. 8 in. (172.72 cm); 08:21 BP 128 / 78; Pulse 80; mb8 08:23 BP 125 / 79 Sitting; Pulse 87; mb8 08:25 BP 138 / 95 Standing; Pulse 94; mb8 09:00 BP 106 / 71; Pulse 58; Resp 14; Pulse Ox 99% ; mb8 10:10 BP 107 / 62; Pulse 61; Resp 16; Pulse Ox 99% ; mb8 08:16 Body Mass Index 25.85 (77.11 kg, 172.72 cm) ph Vitals: 09:00 Cardiac Rhythm Assessment Sinus mina. mb8 ED Course: 08:03 Patient arrived in ED. rg4 08:11 Jorge Cisse PA is PHCP. jmm 08:11 Ole Epstein MD is Attending Physician. jmm 08:16 Sylvia Wall, RN is Primary Nurse. ph 08:19 Triage completed. ph 08:19 Arm band placed on Patient placed in an exam room, on a stretcher. ph 08:26 Antoine Garcia, JONY is Primary Nurse. mb8 08:29 Patient has correct armband on for positive identification. Bed in low position. Call mb8 light in reach. Side rails up X2. Client placed on continuous cardiac and pulse oximetry monitoring. NIBP monitoring applied. monitoring specialist on. 08:29 No provider procedures requiring assistance completed. mb8 08:34 Urine collected: clean catch specimen, Amount Voided: 200mL. mb8 08:35 Inserted saline lock: 20 gauge in right antecubital area, using aseptic technique. mb8 Blood collected. 08:42 XRAY Chest (1 view) In Process Unspecified. EDMS 09:31 Patient requests rest room assistance. mb8 09:[address] via wheelchair. mb8 09:33 CT Head Brain wo Cont In Process Unspecified. mb8 09:40 Patient moved back from CT. mb8 09:40 CT Head Brain wo Cont Sent. mb8 10:30 Klever Stephens MD is Referral Physician. jmm 10:50 IV discontinued, intact, bleeding controlled, No redness/swelling at site. Pressure mb8 dressing applied. Administered Medications: 08:45 Drug: Lactated Ringers Solution 1000 ml Route: IV; Rate: 1000 bolus; Site: right mb8 antecubital; 09:45 Follow up: Response: No adverse reaction; IV Status: Completed infusion mb8 Medication: 08:29 VIS not applicable for this client. mb8 Outcome: 10:30 Discharge ordered by . jmm 10:56 Discharged to home ambulatory. mb8 10:56 Condition: stable 10:56 Discharge instructions given to patient, Instructed on discharge instructions, follow up and referral plans. Demonstrated understanding of instructions, follow-up care. 10:57 Patient left the ED. mb8 Signatures: Dispatcher [employer] EDMS Jorge Cisse PA PA jmm Hall, Patricia, JONY RN Giuliana Wilcox rg4 Antoine Garcia, RN RN mb8 Corrections: (The following items were deleted from the chart) 09:40 09:40 In radiology for Head Brain Wo Cont+CT.RAD.BRZ. EDMS mb8
--- NOTE | 2022-06-16 10:31 | EDPHYS ---
Physician Documentation [facility] Name: Natasha Spann Age: 37 yrs Sex: Female : 1985 Arrival Date: 06/16/2022 Time: 08:03 Bed 20 Private MD: ED Physician Ole Epstein HPI: 06/16 08:12 This 37 yrs old Female presents to ER via Ambulatory with complaints of Low Blood Sugar.jmm 08:12 Onset: The symptoms/episode began/occurred gradually. This is a 37 year old female with jmm a history of bipolar, depression, anxiety that presents to the ED with complaints of fatigue beginning this past Monday. Patient states having to leave work. States she felt sweaty, and nearly collapsed. . Historical: - Allergies: 08:19 bupropion HCl; ph 08:19 Levofloxacin; ph 08:19 Wellbutrin; ph 08:19 Iodine; ph - PMHx: 08:19 ADD/ADHD; Anxiety; Bipolar disorder; Depression; Endometrosis; Gastric Reflux; MRSA; ph osteomylitis; Ovarian cyst; UTI; - PSHx: 08:19 L BKA; ph - Immunization history:: Adult Immunizations unknown. - Social history:: Smoking status: unknown. ROS: 08:12 Cardiovascular: Negative for chest pain, palpitations, and edema, Respiratory: Negative jmm for shortness of breath, cough, wheezing, and pleuritic chest pain. 08:12 Constitutional: Positive for fatigue, malaise. 08:12 Neuro: Positive for near syncope, weakness. 08:12 Allergy/Immunology: 08:12 Endocrine: Positive for weight loss. 08:12 All other systems are negative. Exam: 08:12 Constitutional: This is a well developed, well nourished patient who is awake, alert, jmm and in no acute distress. Head/Face: atraumatic. Eyes: EOMI, no conjunctival erythema appreciated ENT: Moist Mucus Membranes Neck: Trachea midline, Supple Chest/axilla: Normal chest wall appearance and motion. Cardiovascular: Regular rate and rhythm. No edema appreciated Respiratory: Normal respirations, no respiratory distress appreciated Abdomen/GI: Non distended Back: Normal ROM Skin: General appearance color normal 08:12 Musculoskeletal/extremity: no edema noted to the right lower leg. 08:12 Skin: Appearance: Color: normal in color. 08:12 Neuro: Orientation: is normal, Mentation: is normal, Memory: is normal. 08:58 ECG was reviewed by the Attending Physician. [facility] Vital Signs: 08:16 BP 148 / 88; Pulse 85; Resp 18; Temp 98.4; Pulse Ox 100% on R/A; Weight 77.11 kg; ph Height 5 ft. 8 in. (172.72 cm); 08:21 BP 128 / 78; Pulse 80; mb8 08:23 BP 125 / 79 Sitting; Pulse 87; mb8 08:25 BP 138 / 95 Standing; Pulse 94; mb8 09:00 BP 106 / 71; Pulse 58; Resp 14; Pulse Ox 99% ; mb8 10:10 BP 107 / 62; Pulse 61; Resp 16; Pulse Ox 99% ; mb8 08:16 Body Mass Index 25.85 (77.11 kg, 172.72 cm) ph MDM: 08:12 Patient medically screened. [facility] 10:29 Data reviewed: vital signs, nurses notes. Counseling: I had a detailed discussion with fausto the patient and/or guardian regarding: the historical points, exam findings, and any diagnostic results supporting the discharge/admit diagnosis, lab results, radiology results, the need for outpatient follow up, to return to the emergency department if symptoms worsen or persist or if there are any questions or concerns that arise at home. 06/16 08:23 Order name: Basic Metabolic Panel; Complete Time: 09:16 [facility] 06/16 08:23 Order name: CBC with Diff; Complete Time: 08:50 [facility] 06/16 08:23 Order name: LFT's; Complete Time: 09:16 [facility] 06/16 08:23 Order name: Magnesium; Complete Time: 09:16 [facility] 06/16 08:23 Order name: NT PRO-BNP; Complete Time: 09:16 [facility] 06/16 08:23 Order name: PT-INR; Complete Time: 08:50 [facility] 06/16 08:23 Order name: Troponin HS; Complete Time: 09:16 [facility] 06/16 08:23 Order name: XRAY Chest (1 view); Complete Time: 09:16 [facility] 06/16 08:23 Order name: EKG; Complete Time: 08:24 [facility] 06/16 08:23 Order name: Cardiac monitoring; Complete Time: 08:40 [facility] 06/16 08:27 Order name: Glucose, Ancillary Testing; Complete Time: 08:35 EDMS 06/16 08:34 Order name: Urine Dipstick-Ancillary; Complete Time: 08:35 EDW[facility] 06/16 09:18 Order name: CT Head Brain wo Cont; Complete Time: 09:51 [facility] 06/16 08:23 Order name: EKG - Nurse/Tech; Complete Time: 09:08 [facility] 06/16 08:23 Order name: IV Saline Lock; Complete Time: 08:40 [facility] 06/16 08:23 Order name: Labs collected and sent; Complete Time: 08:40 [facility] 06/16 08:23 Order name: O2 Per Protocol; Complete Time: 08:40 [facility] 06/16 08:23 Order name: O2 Sat Monitoring; Complete Time: 08:40 [facility] 06/16 09:51 Order name: Orthostatic Blood Pressure; Complete Time: 10:10 jm EC:58 Rate is 52 beats/min. Rhythm is regular. QRS [place] is Normal. DE interval is normal. QRS jmm interval is normal. QT interval is normal. No Q waves. T waves are Normal. No ST changes noted. Reviewed by me. Administered Medications: 08:45 Drug: Lactated Ringers Solution 1000 ml Route: IV; Rate: 1000 bolus; Site: right 8 antecubital; 09:45 Follow up: Response: No adverse reaction; IV Status: Completed infusion [facility] Disposition Summary: 06/16/22 10:30 Discharge Ordered Location: Home [facility] Condition: Stable [facility] Diagnosis - Syncope Near [facility] Followup: [facility] - With: Private Physician - When: 2 - 3 days - Reason: Recheck today's complaints, Continuance of care, Re-evaluation by your physician Followup: [facility] - With: Klever Stephens MD - When: 2 - 3 days - Reason: Recheck today's complaints, Continuance of care, Re-evaluation by your physician Discharge Instructions: - Discharge Summary Sheet [facility] - Near-Syncope [facility] Forms: - Medication Reconciliation Form [facility] - Thank You Letter [facility] - Antibiotic Education [facility] - Work release form [facility] - Prescription Opioid Use [facility] Signatures: Dispatcher [employer] EDOle Lei MD MD cha Mickail, Joel, PA PA jmm Hall, Patricia, RN RN Antoine Garcia, RN RN mb8
[2022-06-16 11:07] VITALS: TEMP 98.4
[2022-06-16 11:37] VITALS: O2SAT 99
[2022-06-16 11:38] VITALS: BP 107/62
--- NOTE | 2022-06-17 14:44 | EKG ---
Test Date: 2022-06-16 Test Time: 08:55:12 Library Serials Assistant: MELQUIADES MEASUREMENT RESULTS: Intervals: Rate: 52 WI: 152 QRSD: 90 QT: 418 QTc: 388 [place]: P: 46 WI: 152 QRS: 85 T: 69 INTERPRETIVE STATEMENTS: Sinus bradycardia Otherwise normal ECG Compared to ECG 03/30/2022 09:33:30 No significant changes Electronically Signed On 06-17-22 14:43:17 CDT by Klever Stephens
== END 2022-06-16 10:57 | disposition home or self-care (01) ==
LOC: ER 08:01
DX: R55 Syncope and collapse (principal); R53.83 Other fatigue; R53.81 Other malaise
CPT/HCPCS: 36415; 70450; 71045; 80048; 80076; 81003; 82947; 83735; 83880; 84484; 85025; 85610; 93005; 96360; 99285; J7120

== ENCOUNTER 2022-06-25 08:05 | Emergency (ER) | payer SELFPAY ==
--- OUTSIDE RECORDS SUMMARY | 2022-06-25 08:20 | XMS REPORT | Continuity of Care Document ---
:1985 Author Organization [facility] t Address [address] [place] [address] Care Team Providers Name Role Phone Kit Hayes PA-C Primary Care Physician ANALI CORTEZ Attending Clinician Unavailable Anali Cortez MD Attending Clinician PINO ALDANA Attending Clinician Unavailable Pino Murphy Attending Clinician HALINA BAKER Attending Clinician Unavailable Halina Baker NP Attending Clinician Doctor Unassigned, [place] Attending Clinician Unavailable KATHERIN MAURER Attending Clinician Unavailable Katherin Florentino Attending Clinician Blayne Hairston MD Attending Clinician Basil Dove DO Attending Clinician Amaris Martinez Attending Clinician Ad Dodd Attending Clinician Vonda Plasencia Attending Clinician JOYCE FOLEY Attending Clinician Unavailable ANALI CORTEZ Admitting Clinician Unavailable KATHERIN MAURER Admitting Clinician Unavailable PINO ALDANA Admitting Clinician Unavailable JOYCE FOLEY Admitting Clinician Unavailable Payers Payer Name Policy Type Policy Number Effective Date Expiration Date S mary lou [employer] [place] [id number] 2019 WOMEN 00:00:00 MEDICAID SSI PENDING 2021 [...] 2016-[address] [facility] [place] [id number] Center Pelvic Pelvic Disease Active Krishnamurthy pain in pain in [facility] Health female [...] ents Source Name Type Date Date Clinician IODINATE Drug Active Hives 2021-08 Univers D Class 0-29 ity of CONTRAST 00:00: [place] MEDIA 00 Medical Branch Iodinate Propensi Active Hives 2021-08 Univer s d ty to 0-29 ity of Contrast adverse 00:00: [place] Media reaction 00 Medical s Branch [place] - Propensi Active Intraven ty to 6-13 ous adverse 00:00: reaction 00 to drug Wellbutr Propensi Active in - ty to 5-03 Oral adverse 00:00: reaction 00 to drug Levaquin Propensi Active - Oral ty to 4-14 adverse 00:00: reaction 00 to drug Levaquin Propensi Active ty to 1-29 adverse 00:00: reaction 00 to drug Levoflox [...] Active Swelling Anette is ine ty to 8 Health adverse 00:00: reaction 00 s to drug Levoflox Propensi Active Other Joint Krishnamurthy acin ty to 04-16 Pain Health adverse 00:00: reaction 00 s to drug Bupropio Propensi Active Other Gets Krishnamurthy n Hcl ty to 04-16 homicidal Health adverse 00:00: reaction 00 s to drug Family History Family Member Diagnosis Comments Start Date Stop Date Source Maternal grandmother Coronary artery [facility] Natural mother [facility] Maternal aunt Coronary artery [facility] Natural brother Diabetes Krishnamut[facility]hy [facility] alth Social History Social Habit Start Date Stop Date Quantity Comments Source History of tobacco 1992-02-15 Cigarette Smoker University of use 00:00:00 [facility] History SDOH Raghu Romero h Alcohol Frequency History [facility] Raghu Romero h Alcohol Std Drinks History [facility] Raghu Romero Alcohol Binge Exposure to 2022-06-08 2022-06-18 Not sure [facility] SARS-CoV-2 (event) 00:00:00 03:31:00 [facility] Alcohol intake 2021-12-19 2021-12-19 Current drinker Catherine Bishop 00:00:00 00:00:00 of alcohol (finding) History SDMS 2015-04-16 2015-04-16 [facility]:00 02/2015 Cigarettes smoked 2015-04-16 2015-04-16 [facility] current (pack per 00:00:00 00:00:00 day) - Reported Cigarette 2015-04-16 2015-04-16 [facility] pack-years 00:00:00 00:00:00 Tobacco use and 2015-04-16 2015-04-16 Smokeless [facility] alth exposure 00:00:00 00:00:00 tobacco non-user Sex [birth year] Krishnamurthy alth 00:00:00 00:00:00 Smoking Status Start Date Stop Date Source Smokes tobacco daily 2018-02-14 00:00:00 Univers ity of [facility] Never smoked tobacco [facility] Medications Ordered Filled Start Stop Current Ordering Indication Dosage Frequency Signature Comments Components Source Medication Medication Date Date Medication? Clinician (SIG) Name Name ketorolac 2021-08 60mg 60 mg, Unive rs (TORADOL) 06-18 Intramuscu ity of injection 09:45: 09:45 lar, ONCE, [place] 60 mg 00 :00 1 dose, On Medical Sat Branch 06/18/22 at 0445, PUSHPA ondansetron 2021-08- No 8mg 8 mg, Univ ers (ZOFRAN-ODT 0-29 06-18 Oral, ity of ) 09:45: 09:03 ONCE, 1 [place] disintegrat 00 :00 dose, On Medi mary ann ing tablet Sat Branch 8 mg 06/18/22 at 0445, Routine naproxen 2021-08 Yes [id number] 550mg Take 1 Un tracee sodium 550 0-29 tablet by ity of mg tablet 00:00: [place] 00 the Medical morning Branch and 1 tablet in the evening. Take with meals. TAKE 1 2021-0 No 100 CAPSULE BY 9-02 MOUTH TWICE 00:00: DAILY FOR 00 14 DAYS TAKE 1 2021-0 No CAPSULE BY 9-02 MOUTH TWICE 00:00: DAILY FOR 00 14 DAYS TAKE 1 2021-0 No 800 [...] TWELVE HOURS FOR 7 DAYS. TAKE 1 2021-0 No TABLET BY 8-05 MOUTH EVERY 00:00: 4 HOURS 00 NEEDED FOR PAIN (SCALE 4-6) Dose 2021-0 No 1 Unknown 8-05 00:00: 00 TAKE 1 2021-0 No 500 CAPSULE BY 8-05 MOUTH EVERY 00:00: 12 HOURS 00 FOR 10 DAYS FOR INFECTIOUS PROCESS TAKE 1 2021-0 No 10 TABLET BY 8-05 MOUTH EVERY 00:00: 6 HOURS 00 NEEDED FOR PAIN (SCALE 4-6) TAKE ONE 2021-0 No 500 (1) 8-05 TABLET(S) 00:00: BY MOUTH 00 EVERY TWELVE HOURS FOR 7 DAYS. TAKE 1 2021-0 No 800 TABLET 8-05 [...] NEEDED FOR PAIN (SCALE 4-6) TAKE ONE 2-0 No 500 (1) 8-05 TABLET(S) 00:00: BY [...] Dose 2022-0 No Unknown 7-05 00:00: 00 methocarbam 2022-0 No 1mg ol 750 mg 6-13 tablet 00:00: 00 TAKE 1 2-0 No TABLET BY 6-13 MOUTH TWICE 00:00: A DAY 00 NEEDED FOR MUSCLE SPASMS TAKE 1 2022-0 No TABLET BY 6-13 MOUTH EVERY 00:00: 4 HOURS 00 NEEDED FOR PAIN (SCALE 4-6) methocarbam 2022-0 No 1mg ol 750 mg 6-13 tablet 00:00: 00 TAKE 1 2-0 No TABLET BY 6-13 MOUTH TWICE 00:00: A DAY 00 NEEDED FOR MUSCLE SPASMS TAKE 1 2022-0 No TABLET BY 6-13 MOUTH EVERY 00:00: 4 HOURS 00 NEEDED FOR PAIN (SCALE 4-6) methocarbam 2022-0 No 1mg ol 750 mg 6-13 tablet 00:00: 00 TAKE 1 2-0 No TABLET BY 6-13 MOUTH TWICE 00:00: [...] 2021- No 1{tbl} 1 tablet, Univers acetaminoph 2-10 10-20 Oral, ity of en-caff 18:30: 17:31 ONCE, 1 [place] (ESGIC) 00 :00 dose, On Medical 50-325-40 [...] 10 mg, Uni vers arianne HCl 2-20 -20 Oral, ity of (REGLAN) 18:30: 17:30 ONCE, 1 [place] tablet 10 00 :00 dose, On Medica l mg Sun Branch 10/10/21 at 1230, Routine butalbital- Yes [id number] 1{tbl} Take 1 Univers acetaminoph 2-20 tablet by ity of en-caff 00:00: mouth [place] 50-325-40 00 every 6 Medical mg tablet (six) Branch hours as needed for Pain (scale 7-10). butalbital- 2-0 Yes [id number] 1{tbl} Take 1 Univers acetaminoph 2-20 tablet [...] 500 mg 1-31 tablet 00:00: 00 HYDROcodone 2022-0 2022- No 1{tbl} 1 tablet, Univers -acetaminop 1-28 - Oral, ity of hen (NORCO) 05:15: 04:19 [...] 09/15/21 at 1515, PUSHPA iopamidol 2021- No [id number] 100mL 100 mL, Univers (ISOVUE 09-15 Intravenou [...] 09/15/21 at 1345, PUSHPA doxycycline 2021- No [id number] 100mg Take 1 Univers monohydrate 09-1510 capsule by i ty of 100 mg 00:00: 05:59 mouth 2 [place] capsule 00 :00 (two) Medical times Branch daily for 14 days. metroNIDAZO 2021- No [id number] 500mg Take 1 Univers LE 500 mg 09-1510 tablet by ity of tablet 00:00: 05:59 mouth 2 [place] 00 :00 (two) Medical times Branch daily for 14 days. doxycycline 2021- No [id number] 100mg Take 1 Univers monohydrate 09-1510 capsule by i ty of 100 mg 00:00: 05:59 mouth 2 [place] capsule 00 :00 (two) Medical times Branch daily for 14 days. metroNIDAZO 2021- No [id number] 500mg Take 1 Univers LE 500 mg 09-1510 tablet by ity of tablet 00:00: 05:59 mouth 2 [place] 00 :00 (two) Medical times Branch daily for 14 days. ketorolac 2021- No 30mg 30 mg, Unive rs (TORADOL) 08-22 Slow IV ity of injection 00:15: 23:13 Push, [place] 30 mg 00 :00 ONCE, 1 Medical dose, On Branch 08/21/21 at 1815, PUSHPA
Fa novant healthy member approving Restricted medication : KATHERIN [...] On 08/21/21 at 1730, STAT ondansetron Yes [id number] 4mg Take 1 Univers (ZOFRAN 1-01 tablet by ity of ODT) 4 mg 00:00: mouth [place] disintegrat 00 every 8 Medic al ing tablet (eight) Branch hours as needed for Nausea and Vomiting (N/V). ketorolac 0 Yes [id number] 10mg Take 1 U nivers 10 mg 1-01 tablet by ity of tablet 00:00: mouth [place] 00 every 6 Medical (six) Branch hours as needed for Pain (scale 4-6). methocarbam 0 Yes [id number] 500mg Take 1 Univers oL 500 mg 1- tablet by ity o f tablet 00:00: mouth 4 [place] 00 (four) Medical times Branch daily as needed for Pain (scale 4-6). ondansetron 2022-0 Yes [id number] 4mg Take 1 Univers (ZOFRAN 1-01 tablet by ity of ODT) 4 mg 00:00: mouth [place] disintegrat 00 every 8 Medic al ing tablet (eight) Branch hours as needed for Nausea and Vomiting (N/V). ketorolac 2022-0 Yes [id number] 10mg Take 1 U nivers 10 mg 1-01 tablet by ity of tablet 00:00: mouth [place] 00 every 6 Medical (six) Branch hours as needed for Pain (scale 4-6). methocarbam 2022-0 Yes [id number] 500mg Take 1 Univers oL 500 mg 1-01 tablet by ity o f tablet 00:00: mouth 4 [place] 00 (four) Medical times Branch daily as needed for Pain (scale 4-6). ondansetron 2022-0 Yes [id number] 4mg Take 1 Univers (ZOFRAN 1-01 tablet by ity of ODT) 4 mg 00:00: mouth [place] disintegrat 00 every 8 Medic al ing tablet (eight) Branch hours as needed for Nausea and Vomiting (N/V). ketorolac 2022-0 Yes [id number] 10mg Take 1 U nivers 10 mg 1-01 tablet by ity of tablet 00:00: mouth [place] 00 every 6 Medical (six) Branch hours as needed for Pain (scale 4-6). methocarbam 2022-0 Yes [id number] 500mg Take 1 Univers oL 500 mg 1-01 tablet by ity o f tablet 00:00: mouth 4 [place] 00 (four) Medical times Branch daily as needed for Pain (scale 4-6). ondansetron 2022-0 Yes [id number] 4mg Take 1 Univers (ZOFRAN 1-01 tablet by ity of ODT) 4 mg 00:00: mouth [place] disintegrat 00 every 8 Medic al ing tablet (eight) Branch hours as needed for Nausea and Vomiting (N/V). ketorolac 2022-0 Yes [id number] 10mg Take 1 U nivers 10 mg 1-01 tablet by ity of tablet 00:00: mouth [place] 00 every 6 Medical (six) Branch hours as needed for Pain (scale 4-6). methocarbam 2022-0 Yes [id number] 500mg Take 1 Univers oL 500 mg 1-01 tablet by ity o f tablet 00:00: mouth 4 [place] 00 (four) Medical times Branch daily as needed for Pain (scale 4-6). ondansetron 2022-0 Yes [id number] 4mg Take 1 Univers (ZOFRAN 1-01 tablet by ity of ODT) 4 mg 00:00: mouth [place] disintegrat 00 every 8 Medic al ing tablet (eight) Branch hours as needed for Nausea and Vomiting (N/V). ketorolac 2022-0 Yes [id number] 10mg Take 1 U nivers 10 mg 1-01 tablet by ity of tablet 00:00: mouth [place] 00 every 6 Medical (six) Branch hours as needed for Pain (scale 4-6). methocarbam 2022-0 Yes [id number] 500mg Take 1 Univers oL 500 mg 1-01 tablet by ity o f tablet 00:00: mouth 4 [place] 00 (four) Medical times Branch daily as needed for Pain (scale 4-6). ondansetron 2022-0 Yes [id number] 4mg Take 1 Univers (ZOFRAN 1-01 tablet by ity of ODT) 4 mg 00:00: mouth [place] disintegrat 00 every 8 Medic al ing tablet (eight) Branch hours as needed for Nausea and Vomiting (N/V). ketorolac 2022-0 Yes [id number] 10mg Take 1 U nivers 10 mg 1-01 tablet by ity of tablet 00:00: mouth [place] 00 every 6 Medical (six) Branch hours as needed for Pain (scale 4-6). methocarbam 2022-0 Yes [id number] 500mg Take 1 Univers oL 500 mg 1-01 tablet by ity o f tablet 00:00: mouth 4 [place] 00 (four) Medical times Branch daily as needed for Pain (scale 4-6). ondansetron 2022-0 Yes [id number] 4mg Take 1 Univers (ZOFRAN 1-01 tablet by ity of ODT) 4 mg 00:00: mouth [place] disintegrat 00 every 8 Medic al ing tablet (eight) Branch hours as needed for Nausea and Vomiting (N/V). ketorolac 2022-0 Yes [id number] 10mg Take 1 U nivers 10 mg 1-01 tablet by ity of tablet 00:00: mouth 00 every 6 Medical (six) Branch hours as needed for Pain (scale 4-6). methocarbam 2021-0 Yes [id number] 500mg Take 1 Univers oL 500 mg 1-01 tablet by ity o f tablet 00:00: mouth 4 00 (four) Medical times Branch daily as needed for Pain (scale 4-6). Latuda 40 2020-08 No 1mg mg tablet 2-14 00:00: 00 Zoloft 100 2020-08 No 51mg mg tablet 2-14 00:00: 00 Zoloft 100 2020-08 No 1mg mg tablet 2-14 00:00: 00 Vistaril 25 2020-08 No 1mg mg capsule 2-14 00:00: 00 Latuda 40 2020-08 No 1mg mg tablet 2-14 00:00: 00 Zoloft 100 2020-08 No 51mg mg tablet 2-14 00:00: 00 Zoloft 2020-08 No 1mg mg tablet 2-14 00:00: 00 Vistaril 25 2020-08 No 1mg mg capsule 2-14 00:00: 00 Latuda 40 2020-08 No 1mg mg tablet 2-14 00:00: 00 Zoloft 2020-08 No 51mg mg tablet 2-14 00:00: 00 Zoloft 100 2020-08 No 1mg mg tablet 2-14 00:00: 00 Vistaril 25 2020-08 No 1mg mg capsule 2-14 00:00: 00 Bromfed DM 2020-08 No 10mg/5 2 mg-30 2-01 mL mg-10 mg/5 00:00: mL oral 00 syrup Bromfed DM 2020-08 No 10mg/5 2 mg-30 2-01 mL mg-10 mg/5 00:00: mL oral 00 syrup Bromfed DM 2020-08 No 10mg/5 2 mg-30 2-01 mL mg-10 mg/5 00:00: mL oral 00 syrup Latuda 40 2020-08 No 1mg mg tablet 1-15 00:00: 00 Zoloft 100 2020-08 No 51mg mg tablet 1-15 00:00: 00 Vistaril 25 2020-08 No 1mg mg capsule 1-15 00:00: 00 Latuda 40 2020-1 No 1mg mg tablet 1-15 00:00: 00 Zoloft 100 2020-1 No 51mg mg tablet 1-15 00:00: 00 Vistaril 25 2020-1 No 1mg mg capsule 1-15 00:00: 00 Latuda 40 2020- No 1mg mg tablet 1-15 00:00: 00 Zoloft 100 2020- No 51mg mg tablet 1-15 00:00: 00 Vistaril 25 2020-1 No 1mg mg capsule 1-15 00:00: 00 Zoloft 2020- No 1mg mg tablet 0-18 00:00: 00 Latuda 40 2020- No 1mg mg tablet 0-18 00:00: 00 Vistaril 25 2020-1 No 1mg mg capsule 0-18 00:00: 00 Zoloft 2020- No 1mg mg tablet 0-18 00:00: 00 Latuda 40 2020- No 1mg mg tablet 0-18 00:00: 00 Vistaril 25 2020- No 1mg mg capsule 0-18 00:00: 00 Zoloft 2020-1 No 1mg mg tablet 0-18 00:00: 00 Latuda 40 2020- No 1mg mg tablet 0-18 00:00: 00 Vistaril 25 2020- No 1mg mg capsule 0-18 00:00: 00 Latuda 20 2020-1 No 1mg mg tablet 0-05 00:00: 00 Zoloft 2020- No 1mg mg tablet 0-05 00:00: 00 Latuda 40 2020-1 No 1mg mg tablet 0-05 00:00: 00 Vistaril 25 2020-1 No 1mg mg capsule 0-05 00:00: 00 Vistaril 25 2020- No 1mg mg capsule 0-05 00:00: 00 Latuda 20 2020-1 No 1mg mg tablet 0-05 00:00: 00 Zoloft 100 2020- No 1mg mg tablet 0-05 00:00: 00 Latuda 40 2020- No 1mg mg tablet 0-05 00:00: 00 Vistaril 25 2020- No 1mg mg capsule 0-05 00:00: 00 Vistaril 25 2020-08 No 1mg mg capsule 0-05 00:00: 00 Latuda 20 1 No 1mg mg tablet 0-05 00:00: 00 Zoloft 100 2020- No 1mg mg tablet 0-05 00:00: 00 Latuda 40 2020-08 No 1mg mg tablet 0-05 00:00: 00 Vistaril 25 1 No 1mg mg capsule 0-05 00:00: 00 Vistaril 25 2020-08 No 1mg mg capsule 0-05 00:00: 00 Flagyl 500 0 No 1mg mg tablet 05-10 00:00: 00 Flagyl 500 0 No 1mg mg tablet 05-10 00:00: 00 Flagyl 500 0 No 1mg mg tablet 05-10 00:00: 00 ketorolac 2020- No 30mg 30 mg, Unive rs (TORADOL) 04-26 Slow IV ity of injection 22:00: 20:57 Push, [place] 30 mg 00 :00 ONCE, 1 Medical dose, [facility] 04/26/21 at 1700, Routine
[employer] membership advisors approving Restricted medication : BLAYNE HAIRSTON ketorolac 2020- No 30mg 30 mg, Unive rs (TORADOL) 04-26 Slow IV ity of injection 22:00: 20:57 Push, [place] 30 mg 00 :00 ONCE, 1 Medical dose, [place] [facility] 04/26/21 at 1700, Routine
[employer] membership advisors approving Restricted medication : BLAYNE HAIRSTON morpHINE 2020- No 4mg 4 mg, Slow Un tracee injection 4 04-26 IV Push, ity of mg 20:30: 19:28 ONCE, 1 [place] 00 :00 dose, [facility] 04/26/21 at Branch 1530, STAT morpHINE 2020-2020- No 4mg 4 mg, Slow Un tracee injection 4 04-26 IV Push, ity of mg 20:30: 19:28 ONCE, 1 [place] 00 :00 dose, [facility] 04/26/21 at Branch 1530, STAT ondansetron 2020- [...] 04/26/21 at 1330, STAT clonazePAM 2020- No [id number] 1mg Take 1 Univers (KLONOPIN) 04-17 tablet by ity of 1 mg tablet 00:00: 04:59 mouth 3 [place] 00 :00 (three) Medical times Branch daily for 5 days. clonazePAM 2020- No [id number] 1mg Take 1 Univers (KLONOPIN) 04-17 tablet by ity of 1 mg tablet 00:00: 04:59 mouth 3 [place] 00 :00 (three) Medical times Branch daily for 5 days. TOPIRAMATE 2020- No Take by Uni vers (TOPAMAX 04-12 mouth. ity of ORAL) 01:13: 00:00 [place] 52 :00 Medical Branch ARIPIPRAZOL 2020- No Take by Elmer Rutledge (ABILIFY 04-12 mouth. ity of ORAL) 01:13: 00:00 [place] 52 :00 Medical Branch FLUOXETINE 2020-0 2020- No Take by Uni vers HCL (PROZAC 04-12 mouth. ity o f ORAL) 01:13: 00:00 [place] 52 :00 Medical Branch Macrobid 2020-0 No 1mg 100 mg [...] 300 mg 0-29 capsule 00:00: 00 traMADoL 2019-2019- No 50mg 50 mg, Univer s (ULTRAM) 04-29 Oral, ONCE ity of tablet 50 19:30: 18:35 NOW, 1 [place] mg 00 :00 dose, [facility] 04/29/20 at Branch 1430, Routine ketorolac 2019- No 15mg 15 mg, Unive rs (TORADOL) 04-29 Slow IV ity of injection 17:15: 16:31 Push, [place] 15 mg 00 :00 ONCE, 1 Medical dose, [facility] 04/29/20 at 1215, PUSHPA
Fa culty member approving Restricted medication : AMARIS STALLINGS traMADoL 50 2019-0 Yes [id number] 50mg Take 1 Univ ers mg tablet 04-29 tablet by ity o f 00:00: mouth [place] 00 every 6 Medical (six) Branch hours as needed for Pain (scale 7-10). Indication s: acute pain traMADoL 50 2019-0 2020- No [id number] 50mg Take 1 Uni vers mg tablet 04-29 tablet by ity of 00:00: 00:00 mouth [place] 00 :00 every 6 Medical (six) Branch hours as needed for Pain (scale 7-10). Indication s: acute pain clindamycin 2019- 2020- No [id number] 450mg Take 3 Univers 150 mg 04-29 [...] 500 mg 2-23 tablet 00:00: 00 metronidazo 2018-08 No 4mg le 500 mg 2-23 tablet 00:00: 00 azithromyci 2018-08 No 4mg n 250 mg 2-17 tablet 00:00: 00 azithromyci 2018-08 No 4mg n 250 mg 2-17 tablet 00:00: 00 azithromyci 2018-08 No 4mg n 250 mg 2-17 tablet 00:00: 00 metronidazo 2018-08 No 1mg le 500 mg 2-12 tablet 00:00: 00 metronidazo 2018-08 No 1mg le 500 mg 2-12 tablet 00:00: 00 metronidazo 2018-08 No 1mg le 500 mg 2-12 tablet 00:00: 00 ketorolac 2018- No 60mg 60 mg, Unive rs (TORADOL) 03-19 Intramuscu ity of injection 05:45: 04:35 lar, ONCE, [place] 60 mg 00 :00 1 dose, Medical Tue Branch 03/19/19 at 0045, PUSHPA
Fa culty member approving Restricted medication : Vonda AGUILA ibuprofen Yes [id number] 600mg Take 1 U nivers 600 mg 7-29 tablet by ity of tablet 00:00: mouth [place] 00 every 6 Medical (six) Branch hours as needed for Pain (scale 4-6). ibuprofen Yes [id number] 600mg Take 1 U nivers 600 mg 7-29 tablet by ity of tablet 00:00: mouth [place] 00 every 6 Medical (six) Branch hours as needed for Pain (scale 4-6). ibuprofen Yes [id number] 600mg Take 1 U nivers 600 mg 7-29 tablet by ity of tablet 00:00: mouth [place] 00 every 6 Medical (six) Branch hours as needed for Pain (scale 4-6). ibuprofen Yes [id number] 600mg Take 1 U nivers 600 mg 7-29 tablet by ity of tablet 00:00: mouth [place] 00 every 6 Medical (six) Branch hours as needed for Pain (scale 4-6). ibuprofen 2020- No [id number] 600mg Take 1 Univers 600 mg 7-29 08- tablet by ity of tablet 00:00: 00:00 mouth [place] 00 :00 every 6 Medical (six) Branch hours as needed for Pain (scale 4-6). TRAZODONE [id number] Yes Take by Unive rs HCL 4-26 mouth. ity of (TRAZODONE 18:29: [place] ORAL) 35 Medical Branch PROPRANOLOL 0 Yes Take by Uni vers HCL 4-26 mouth. ity of (PROPRANOLO 18:29: [place] L ORAL) 35 Medical Branch HYDROXYZINE 0 Yes Take by Uni vers HCL ORAL 4-26 mouth. ity of 18:29: [place] [address] Medical Branch DULOXETINE 0 Yes Take by Univ ers HCL 4-26 mouth. ity of (CYMBALTA 18:29: [place] ORAL) Medical Branch ARIPIPRAZOL Yes Take by Uni vers E (ABILIFY 4-26 mouth. ity of ORAL) 18:29: [place] [address] Medical Branch TRAZODONE Yes Take by Unive rs HCL 4-26 mouth. ity of (TRAZODONE 18:29: [place] ORAL) Medical Branch PROPRANOLOL Yes Take by Uni vers HCL 4-26 mouth. ity of (PROPRANOLO 18:29: [place] L ORAL) Medical Branch HYDROXYZINE Yes Take by Uni vers HCL ORAL 4-26 mouth. ity of 18:29: [place] [address] Medical Branch DULOXETINE Yes Take by Univ ers HCL 4-26 mouth. ity of (CYMBALTA 18:29: [place] ORAL) Medical Branch ARIPIPRAZOL Yes Take by Uni vers E (ABILIFY 4-26 mouth. ity of ORAL) 18:29: [place] [address] Medical Branch TRAZODONE 0 Yes Take by Unive rs HCL 4-26 mouth. ity of (TRAZODONE 18:29: [place] ORAL) Medical Branch PROPRANOLOL 0 Yes Take by Uni vers HCL 4-26 mouth. ity of (PROPRANOLO 18:29: [place] L ORAL) Medical Branch HYDROXYZINE 0 Yes Take by Uni vers HCL ORAL 4-26 mouth. ity of 18:29: [place] [address] Medical Branch DULOXETINE 0 Yes Take by Univ ers HCL 4-26 mouth. ity of (CYMBALTA 18:29: [place] ORAL) Medical Branch ARIPIPRAZOL 0 Yes Take by Uni vers E (ABILIFY 4-26 mouth. ity of ORAL) 18:29: [place] 35 Medical Branch TRAZODONE Yes Take by Unive rs HCL 4-26 mouth. ity of (TRAZODONE 18:29: [place] ORAL) 35 Medical Branch PROPRANOLOL Yes Take by Uni vers HCL 4-26 mouth. ity of (PROPRANOLO 18:29: [place] L ORAL) 35 Medical Branch HYDROXYZINE Yes Take by Uni vers HCL ORAL 4-26 mouth. ity of 18:29: [place] [address] Medical Branch DULOXETINE Yes Take by Univ ers HCL 4-26 mouth. ity of (CYMBALTA 18:29: [place] ORAL) Medical Branch ARIPIPRAZOL Yes Take by Uni vers E (ABILIFY 4-26 mouth. ity of ORAL) 18:29: [place] [address] Medical Branch TRAZODONE Yes Take by Unive rs HCL 4-26 mouth. ity of (TRAZODONE 18:29: [place] ORAL) Medical Branch PROPRANOLOL Yes Take by Uni vers HCL 4-26 mouth. ity of (PROPRANOLO 18:29: [place] L ORAL) Medical Branch HYDROXYZINE Yes Take by Uni vers HCL ORAL 4-26 mouth. ity of 18:29: [place] [address] Medical Branch DULOXETINE Yes Take by Univ [...] HCL ORAL 4-26 mouth. ity of 18:29: [place] [address] Medical Branch DULOXETINE Yes Take by Univ [...] of 13:29: [place] 35 Medical Branch DULOXETINE 2019-0 Yes [...] Yes Take by Uni vers HCL ORAL - mouth. ity of 13:29: [place] 35 Medical Branch DULOXETINE Yes Take by Univ ers HCL - mouth. ity of (CYMBALTA 13:29: [place] ORAL) 35 Medical Branch TRAZODONE Yes Take by Unive rs HCL - mouth. ity of (TRAZODONE 13:29: [place] ORAL) 35 Medical Branch PROPRANOLOL Yes Take by Uni vers HCL -26 mouth. ity of (PROPRANOLO 13:29: [place] L ORAL) 35 Medical Branch HYDROXYZINE Yes Take by Uni vers HCL ORAL - mouth. ity of 13:29: [place] [address] Medical Branch DULOXETINE Yes Take by Univ ers HCL - mouth. ity of (CYMBALTA 13:29: [place] ORAL) 35 Medical Branch Miscellaneo Yes [id number] [facility] 12-14 9104 EXTREMITY ity of Supply Misc 00:00: PROSTHES [place] 00 NOS, Left Medical bka, needs Branch new prosthesis and supplies Miscellaneo 2019-0 Yes [id number] [facility] 12-14 9104 EXTREMITY ity of Supply Misc 00:00: PROSTHES [place] 00 NOS, Left Medical bka, needs Branch new prosthesis and supplies Miscellaneo 2019-0 Yes [id number] [facility] 12-14 9104 EXTREMITY ity of Supply Misc 00:00: PROSTHES [place] 00 NOS, Left Medical bka, needs Branch new prosthesis and supplies Miscellaneo 2019-0 Yes [id number] [facility] 12-14 9104 EXTREMITY ity of Supply Misc 00:00: PROSTHES [place] 00 NOS, Left Medical bka, needs Branch new prosthesis and supplies Miscellaneo 2019-0 2020- No [id number] [facility] 12-14 9104 EXTREMITY ity of Supply Misc 00:00: 00:00 PROSTHES [place] 00 :00 NOS, Left Medical bka, needs Branch new prosthesis and supplies TOPIRAMATE Yes Take by Univ ers (TOPAMAX 4-19 mouth. ity of ORAL) 01:22: [place] [address] Medical Branch TOPIRAMATE 2019 Yes Take by Univ ers (TOPAMAX 4-19 mouth. ity of ORAL) 01:22: [place] [address] Medical Branch TOPIRAMATE 2019-0 Yes Take by [facility] ers (TOPAMAX 4-19 mouth. ity of ORAL) 01:22: [place] [address] Medical Branch TOPIRAMATE 2019-0 Yes Take by [facility] ers (TOPAMAX 4-19 mouth. ity of ORAL) 01:22: [address] Branch acetaminoph 2018-0 Yes [id number] 1{tbl} Take 1 Univers en-codeine 4-18 tablet by ity of (TYLENOL-CO 00:00: mouth [place] DEINE #3) 00 every 4 Medical 300-30 mg (four) Branch tablet hours as needed for Pain (scale 7-10). cephALEXin Yes [id number] 250mg Take 1 Univers (KEFLEX) 4-18 capsule by ity o f 250 mg 00:00: mouth [place] capsule 00 every 6 Medical (six) Branch hours. acetaminoph Yes [id number] 1{tbl} Take 1 Univers en-codeine 4-18 tablet by ity of (TYLENOL-CO 00:00: mouth [place] DEINE #3) 00 every 4 Medical 300-30 mg (four) Branch tablet hours as needed for Pain (scale 7-10). cephALEXin Yes [id number] 250mg Take 1 Univers (KEFLEX) 4-18 capsule by ity o f 250 mg 00:00: mouth [place] capsule 00 every 6 Medical (six) Branch hours. acetaminoph Yes [id number] 1{tbl} Take 1 Univers en-codeine 4-18 tablet by ity of (TYLENOL-CO 00:00: mouth [place] DEINE #3) 00 every 4 Medical 300-30 mg (four) Branch tablet hours as needed for Pain (scale 7-10). cephALEXin 0 Yes [id number] 250mg Take 1 Univers (KEFLEX) 4-18 capsule by ity o f 250 mg 00:00: mouth [place] capsule 00 every 6 Medical (six) Branch hours. acetaminoph 0 Yes [id number] 1{tbl} Take 1 Univers en-codeine 4-18 tablet by ity of (TYLENOL-CO 00:00: mouth [place] DEINE #3) 00 every 4 Medical 300-30 mg (four) Branch tablet hours as needed for Pain (scale 7-10). cephALEXin Yes [id number] 250mg Take 1 Univers (KEFLEX) 4-18 capsule by ity o f 250 mg 00:00: mouth [place] capsule 00 every 6 Medical (six) Branch hours. acetaminoph 2020- No [id number] 1{tbl} Take 1 Univers en-codeine 4-18 08-22 tablet by ity of (TYLENOL-CO 00:00: 00:[place] DE[place] #3[place] 00 :00 every 4 Medical 300-30 mg (four) Branch tablet hours as needed for Pain (scale 7-10). cephALEXin 2020- No [id number] 250mg Take 1 Univers (KEFLEX) 4-18 08-22 capsule by ity of 250 mg 00:00: 00:00 mouth [place] capsule 00 :00 every 6 Medical (six) Branch hours. ibuprofen 2019- No [id number] 600mg Take 1 Univers 600 mg 3-06 27- 3 tablet by ity of tablet 00:00: 00:00 mouth [place] 00 :00 every 6 Medical (six) Branch hours as needed for Pain (scale 4-6). sulfamethox 2019- Yes [id number] 1{tbl} Take 1 Univers azole-trime 2-12 tablet by ity of thoprim 00:00: mouth [place] 800-160 mg 00 every 12 Medic al per tablet (twelve) Branc h hours. sulfamethox 2019- Yes [id number] 1{tbl} Take 1 Univers azole-trime 2-12 tablet by ity of thoprim 00:00: mouth [place] 800-160 mg 00 every 12 Medic al per tablet (twelve) Branc h hours. sulfamethox 2019- Yes [id number] 1{tbl} Take 1 Univers azole-trime 2-12 tablet by ity of thoprim 00:00: mouth [place] 800-160 mg 00 every 12 Medic al per tablet (twelve) Branc h hours. sulfamethox 2019- Yes [id number] 1{tbl} Take 1 Univers azole-trime 2-12 tablet by ity of thoprim 00:00: mouth [place] 800-160 mg 00 every 12 Medic al per tablet (twelve) Branc h hours. sulfamethox 2018- 2021- No [id number] 1{tbl} Take 1 Univers azole-trime 2-12 08-22 tablet by it y of thoprim 00:00: 00:00 mouth [place] 800-160 mg 00 :00 every 12 Medic al per tablet (twelve) Branc h hours. FLUOXETINE 2017- Yes Take by [facility] ers HCL (PROZAC 6-27 mouth. ity of ORAL) 17:12: [address] FLUOXETINE 2017-0 Yes Take by [facility] ers HCL (PROZAC 6-27 mouth. ity of ORAL) 17:12: [address] FLUOXETINE 2017- Yes Take by [facility] ers HCL (PROZAC 6-27 mouth. ity of ORAL) 17:12: [address] FLUOXETINE 2017- Yes Take by Univ ers HCL (PROZAC 6-27 mouth. ity of ORAL) 17:12: [address] pantoprazol Yes [id number] 40mg Take 1 Univers e 6-27 tablet by ity of (PROTONIX) 00:00: mouth [place] 40 [place] EC 00 (two) Medical tablet times Branch daily. fluticasone 2017- Yes [id number] 2{spray Use 2 Univers 50 6-27 } Sprays in ity of mcg/actuati 00:00: each [place] on nasal 00 nostril Medical spray daily. Branch pantoprazol Yes [id number] 40mg Take 1 Univers e 6-27 tablet by ity of (PROTONIX) 00:00: mouth [place] 40 mg EC 00 (two) Medical tablet times Branch daily. fluticasone 2017- Yes [id number] 2{spray Use 2 Univers 50 6-27 } Sprays in ity of mcg/actuati 00:00: each [place] on nasal 00 nostril Medical spray daily. Branch pantoprazol Yes [id number] 40mg Take 1 Univers e 6-27 tablet by ity of (PROTONIX) 00:00: mouth [place] 40 mg EC 00 (two) Medical tablet times Branch daily. fluticasone 2017- Yes [id number] 2{spray Use 2 Univers 50 6-27 } Sprays in ity of mcg/actuati 00:00: each [place] on nasal 00 nostril Medical spray daily. Branch pantoprazol Yes [id number] 40mg Take 1 Univers e 6-27 tablet by ity of (PROTONIX) 00:00: mouth [place] 40 mg EC 00 (two) Medical tablet times Branch daily. fluticasone Yes [id number] 2{spray Use 2 Univers 50 6-27 } Sprays in ity of mcg/actuati 00:00: each [place] on nasal 00 nostril Medical spray daily. Branch pantoprazol 2020- No [id number] 40mg Take 1 Univers e 6-27 08-22 tablet by ity of (PROTONIX) 00:00: 00:00 mouth 2 [place] 40 mg EC 00 :00 (two) Medical tablet times Branch daily. fluticasone 2020- No [id number] 2{spray Use 2 Univers 50 6-27 08-22 [...] times Branch daily with meals. metoclopram Yes [id number] 1 tab U nivers arianne HCl 10 5-25 every 4hr ity of mg tablet 00:00: as needed [place] as 00 for nausea Medical Branch metoclopram 2018-0 Yes [id number] 1 tab U nivers arianne HCl 10 5-25 every 4hr ity of mg tablet 00:00: as needed [place] 00 for nausea Medical Branch metoclopram 2018-0 Yes [id number] 1 tab U nivers arianne HCl 10 5-25 every 4hr ity of mg tablet 00:00: as needed [place] 00 for nausea Medical Branch metoclopram 2018-0 Yes [id number] 1 tab U nivers arianne HCl 10 5-25 every 4hr ity of mg tablet 00:00: as needed [place] 00 for nausea Medical Branch metoclopram 2018-0 2020- No [id number] 1 tab Univers arianne HCl 10 5-25 [...] 00 (three) Medical times Branch daily. ondansetron 2018- Yes 4mg Take 1 Univ [...] 4mg Take 1 Uni vers (ZOFRAN 5-10 - tablet by ity of ODT) 4 mg 00:00: 00:00 mouth [place] disintegrat 00 :00 every 8 Medic al ing tablet (eight) Branch hours as needed for Nausea and Vomiting (N/V). acetaminoph 2018- Yes [id number] 1{tbl} Take 1-2 Univers en-codeine 5-01 tablets by ity of 300-30 mg 00:00: mouth [place] tablet 00 every 6 Medical (six) Branch hours as needed for Pain (scale 4-6) or Pain (scale 7-10) (for breakthrou gh pain). acetaminoph 2018-0 Yes [id number] 1{tbl} Take 1-2 Univers en-codeine 5-01 tablets by ity of 300-30 mg 00:00: mouth [place] tablet 00 every 6 Medical (six) Branch hours as needed for Pain (scale 4-6) or Pain (scale 7-10) (for breakthrou gh pain). acetaminoph 2018-0 Yes [id number] 1{tbl} Take 1-2 Univers en-codeine 5-01 tablets by ity of 300-30 mg 00:00: mouth [place] tablet 00 every 6 Medical (six) Branch hours as needed for Pain (scale 4-6) or Pain (scale 7-10) (for breakthrou gh pain). acetaminoph Yes [id number] 1{tbl} Take 1-2 Univers en-codeine 5-01 tablets by ity of 300-30 mg 00:00: mouth [place] tablet 00 every 6 Medical (six) Branch hours as needed for Pain (scale 4-6) or Pain (scale 7-10) (for breakthrou gh pain). acetaminoph 2020- No [id number] 1{tbl} Take 1-2 Univers en-codeine 5-01 08-22 tablets by it y of 300-30 mg 00:00: 00:00 mouth [place] tablet 00 :00 every 6 Medical (six) Branch hours as needed for Pain (scale 4-6) or Pain (scale 7-10) (for breakthrou gh pain). meclizine Yes [id number] 25mg Take 1 U nivers 25 mg 3-30 tablet by ity of tablet 00:00: mouth 3 [place] 00 (three) Medical times Branch daily as needed for Dizziness. meclizine Yes [id number] 25mg Take 1 U nivers 25 mg 3-30 tablet by ity of tablet 00:00: mouth 3 [place] 00 (three) Medical times Branch daily as needed for Dizziness. meclizine Yes [id number] 25mg Take 1 U nivers 25 mg 3-30 tablet by ity of tablet 00:00: mouth 3 [place] 00 (three) Medical times Branch daily as needed for Dizziness. meclizine Yes [id number] 25mg Take 1 U nivers 25 mg 3-30 tablet by ity of tablet 00:00: mouth 3 [place] 00 (three) Medical times Branch daily as needed for Dizziness. meclizine 2020- No [id number] 25mg Take 1 Univers 25 mg 3-30 [...] hot shower 1 hour before bedtime promethazin 1- No 5mL Take 5 mL Univers e-codeine 2-10 08-22 by mouth 4 ity of 6.25-10 00:00: 00:00 (four) [place] mg/5 mL 00 :00 times Medical syrup daily as Branch needed for Cough. sod 2017-2020- No 1{bottl Use 1 Univers chlor-bicar 2-10 04-11 e} Bottle in it y of b-squeez [...] 4mg Take 1 Uni vers (ZOFRAN 1-24 04-11 tablet by ity of ODT) 4 mg [...] MG 15:00: mouth Medical tablet 29 nightly. [place] ARIPiprazol 2016-08 Yes 15mg QD Take [address] [facility] (ABILIFY) 1-26 by mouth [facility] 15 MG 15:00: nightly. Medical tablet 29 [place] DULoxetine 2016-08 Yes anxiety 30mg QD Take [address] [facility] (CYMBALTA) 1-26 with by mouth [facility] 30 MG 15:00: depression daily. [facility] mary ann capsule 29 [place] topiramate 2016-08 Yes 100mg Q.5D Take 100 [...] 15 MG 15:00: nightly. Medical tablet 29 [place] DULoxetine 2016-08 Yes anxiety 30mg QD Take [address] [facility] (CYMBALTA) 1-26 with by mouth [facility] 30 MG 15:00: depression daily. Medi mary ann capsule 29 [place] topiramate 2016-08 Yes 100mg Q.5D Take 100 [...] MG 15:00: mouth Medical tablet 29 nightly. [place] ARIPiprazol 2016-08 Yes 15mg QD Take [address] [facility] (ABILIFY) 1-26 by mouth [facility] 15 MG 15:00: nightly. Medical tablet 29 [place] DULoxetine 2016-08 Yes anxiety 30mg QD Take [...] MG 15:00: mouth Medical tablet 29 nightly. [place] ARIPiprazol 2016-08 Yes 15mg QD Take 15 [...] MG 15:00: mouth Medical tablet 29 nightly. [place] ARIPiprazol 2016-08 Yes 15mg QD Take [address] [facility] (ABILIFY) 1-26 by mouth [facility] 15 MG 15:00: nightly. Medical tablet 29 Center DULoxetine 2016-08 Yes anxiety 30mg QD Take [address] [facility] (CYMBALTA) -26 with by mouth [facility] 30 MG 15:00: depression daily. Medi mary ann capsule 29 Center topiramate 2016-08 Yes 100mg Q.5D Take [address] (TOPAMAX) 1-26 mg by [facility] 100 MG 15:00: mouth 2 Medical tablet 29 (two) Center times daily. omeprazole 2016-08 Yes gastroesoph 40mg QD Take [address] [facility] (PRILOSEC) -26 ageal by mouth [facility] 40 MG 15:00: reflux daily. Medical capsule 29 disease Center hydrOXYzine 2016-08 Yes anxiety 25mg Q.25D Take [address] [facility] (ATARAX) 25 -26 by mouth 4 Rosangela kes MG tablet 15:00: (four) Medica l 29 times Center daily. propranolol 2016-08 Yes 20mg Q.5D Take [address] [facility] (INDERAL) - by mouth 2 [place] [facility] 20 MG 15:00: (two) Medical tablet 29 times Center daily. traZODone 2016-08 Yes 150mg QD Take [address] [facility] (DESYREL) 1-26 mg by [facility] 150 MG 15:00: mouth Medical tablet 29 nightly. [place] ARIPiprazol 2016-08 Yes 15mg QD Take 15 [...] 2 (two) Medical times Branch daily. metroNIDAZO 2016-08- [...] as capsule needed for Pain (scale 4-6). Butalbital2020- No 1{capsu Take 1 Univers Acetaminoph 9-30 [...] 6 hours as needed for Pain. ibuprofen Yes Tooth 800mg Take 4 Anette [...] for Pain. ARIPIPRAZOL 2014-0 Yes Take by Benjamín ris [...] OR 8-27 mouth. Health 13:48: 28 ARIPIPRAZOL 2015-0 Yes Take by Benjamín ris [...] OR 8-27 mouth. Health 13:48: 28 ARIPIPRAZOL 2015-0 Yes Take by Benjamín ris E (ABILIFY 8-27 mouth. Health OR) 13:48: 28 DULOXETINE 2015-0 Yes Take by Anette is HCL 8-27 mouth. Health (CYMBALTA 13:48: OR) 28 TOPIRAMATE 2015-0 Yes Take by Anette is (TOPAMAX 8-27 mouth. Health OR) 13:48: 28 TRAZODONE 2015-0 Yes Take by Harri s HCL 8-27 mouth. Health (TRAZODONE 13:48: OR) 28 PROPRANOLOL 2015-0 Yes Take by Benjamín ris HCL 8-27 mouth. Health (PROPRANOLO 13:48: L OR) 28 HYDROXYZINE 2014-0 Yes Take by Benjamín ris HCL OR 8-27 mouth. Health 13:48: 28 ARIPIPRAZOL 2014-0 Yes Take by Benjamín ris E (ABILIFY 8-27 mouth. Health OR) 13:48: 28 DULOXETINE 2014-0 Yes Take by Anette is HCL 8-27 mouth. Health (CYMBALTA 13:48: OR) 28 TOPIRAMATE 2014- Yes Take by Anette is (TOPAMAX 8-27 mouth. Health OR) 13:48: 28 TRAZODONE 2014-0 Yes Take by Anettei s HCL 8-27 [...] inhaler Rinse mouth after each use.. budesonide- 2014- Yes Unspecified 2{puff} Q.5D Inhale 2 Krishnamurthy [...] inhaler Rinse mouth after each use.. budesonide- 2015-0 Yes Unspecified 2{puff} Q.5D Inhale 2 Krishnamurthy formoterol 8-27 chronic Puffs by He alth (SYMBICORT) 00:00: bronchitis mouth 2 80-4.5 00 times mcg/actuati daily on inhaler Rinse mouth after each use.. Vital Signs Vital Name Observation Time Observation Value Comments Source Heart rate 2022-06-18 10:00:00 54 /min [facility] Oxygen saturation in 2022-06-18 10:00:00 97 /min [facility] Arterial blood by [facility] Pulse oximetry Branch Systolic blood 2022-06-18 08:34:00 144 mm[Hg] Univer sity of [email or web address] Diastolic blood 2022-06-18 08:34:00 94 mm[facility]Hg[facility] 2022-06-18 08:34:00 36.72 Michell [facility] Respiratory rate 2022-06-18 08:34:00 20 /min [facility] Body height 2022-06-18 08:34:00 172.7 cm [facility] Body weight 2022-06-18 08:34:00 71 kg [facility] BMI 2022-06-18 08:34:00 23.80 kg/m2 [facility] Systolic blood 2021-10-10 17:08:00 136 mm[Hg] Univer sity of [facility] [[email or web address] Diastolic blood 2021-10-10 17:08:00 86 mm[Hg] Unive rsity [facility] Heart rate 2021-10-10 17:08:00 78 /min [facility] Body temperature 2021-10-10 17:08:00 36.5 [facility] 2021-10-10 17:08:00 16 /[facility] height 2021-10-10 17:08:00 172.7 cm [facility]i ty [facility] [place] [facility] Body weight 2021-10-10 17:08:00 83.915 kg [facility]i [facility] [place] [facility] BMI 2021-10-10 17:08:00 28.13 kg/m2 [facility]i ty [facility] [place] [facility] Oxygen saturation in 2021-10-10 17:08:00 99 /min University of Arterial blood by [facility] Pulse oximetry Branch Systolic blood 2021-10-01 03:09:00 144 mm[Hg] Univer sity of pressure [place] [facility] Diastolic blood 2021-10-01 03:09:00 87 mm[Hg] Unive rsity of pressure [place] [facility] Heart rate 2021-10-01 03:09:00 87 /min Universi [...] 98 /min University of Arterial blood by [facility] Pulse oximetry Branch Systolic blood 2021-09-17 06:40:00 103 mm[Hg] Univer sity of pressure [place] [facility] Diastolic blood 2021-09-17 06:40:00 60 mm[Hg] Unive rsity of pressure [place] [facility] Heart rate 2021-09-17 06:40:00 64 /min Universi ty of [place] [facility] Oxygen saturation in 2021-09-17 06:40:00 97 /min University of Arterial blood by [facility] mary ann Pulse oximetry Branch [...] mm[Hg] Unive rsity of pressure [place] [facility] [place] Heart rate 2021-09-15 19:50:00 80 /min Universi ty of [place] [facility] Oxygen saturation in 2021-09-15 19:50:00 99 /min University of Arterial blood by [place] [facility]ary ann Pulse oximetry Branch Body temperature 2021-09-15 18:37:00 37.06 Michell Univ ersity of [place] [facility] Respiratory rate 2021-09-15 18:37:00 18 /min Univ ersity of [place] [facility] [place] Body height 2021-09-15 18:37:00 172.7 cm Universi ty of [place] [facility] [place] Body weight 2021-09-15 18:37:00 84.823 kg Universi [...] /min University of Arterial blood by [place] [facility] mary ann Pulse oximetry Branch Body temperature [...] 22:15:00 79 mm[Hg] Unive rsity of pressure [place] [facility] Heart rate 2021-04-26 22:15:00 59 /min Universi ty [facility] [place] [facility] Respiratory rate 2021-04-26 22:15:00 13 /min Univ ersity of [place] [facility] Oxygen saturation in 2021-04-26 22:15:00 99 /min University of Arterial blood by [place] Medi mary ann Pulse oximetry Branch Body temperature 2021-04-26 17:03:00 36.72 Michell Univ ersity [facility] [place] [facility] Body weight 2021-04-26 17:03:00 90.719 kg Universi ty [facility] [place] [facility] BMI 2021-04-26 17:03:00 30.41 kg/m2 Universi ty [facility] [place] [facility] Systolic blood 2021-04-17 23:53:00 130 mm[Hg] Univer sity of pressure [place] [facility] Diastolic blood 2021-04-17 23:53:00 75 mm[Hg] Unive rsity of pressure [place] [facility] Heart rate 2021-04-17 23:53:00 78 [...] 100 /min University of Arterial blood by [facility] mary ann Pulse oximetry Branch Systolic blood 2021-04-12 00:15:00 167 mm[Hg] Univer sity of pressure [place] [facility] Diastolic blood 2021-04-12 00:15:00 106 mm[Hg] Unive rsity of pressure [place] [facility] Heart rate 2021-04-12 00:15:00 89 /min Universi ty [facility] [place] [facility] Body temperature 2021-04-12 00:15:00 37.22 Michell Univ ersity of [place] [facility] Respiratory rate 2021-04-12 00:15:00 18 /min Univ ersity of [place] [facility] Body weight 2021-04-12 00:15:00 86.183 kg Universi ty [facility] [place] [facility] BMI 2021-04-12 00:15:00 28.89 kg/m2 Universi ty [facility] [place] [facility] Oxygen saturation in 2021-04-12 00:15:00 98 /min University of Arterial blood by [place] [facility] mary ann Pulse oximetry Branch Systolic blood [...] /min University of Arterial blood by [place] [facility] mary ann Pulse oximetry Branch Body temperature [...] 99 /min University of Arterial blood by [facility] mary ann Pulse oximetry Branch Body temperature 2020-04-29 15:43:00 37.11 Michell Univ ersity of [place] [facility] Body height 2020-04-29 15:43:00 172.7 cm Universi ty [facility] [place] [facility] Body weight 2020-04-29 15:43:00 86.183 kg Universi ty [facility] [place] [facility] BMI 2020-04-29 15:43:00 28.89 kg/m2 [facility]i ty [facility] [place] [facility] Systolic blood 2019-04-14 22:23:00 146 [...] /min University of Arterial blood by [place] [facility] mary ann Pulse oximetry Branch Systolic blood [...] /min University of Arterial blood by [place] [facility]i mary ann Pulse oximetry Branch Systolic [...] 97 /min University of Arterial blood by [facility] mary ann Pulse oximetry Branch Body temperature 2019-03-19 03:28:00 36.67 Michell Univ ersity of [place] [facility] [place] Body weight 2019-03-19 03:28:00 90.719 kg Universi ty [facility] [place] [facility] [place] BMI 2019-03-19 03:28:00 30.41 kg/m2 Universi ty [facility] [place] [facility] Systolic blood 2019-03-19 04:00:00 122 mm[Hg] Univer sity of pressure [facility] Diastolic blood 2019-03-19 04:00:00 78 mm[Hg] Unive rsity of pressure [facility] Heart rate 2019-03-19 04:00:00 68 /min Universi ty [facility] [place] [facility] Respiratory rate 2019-03-19 04:00:00 18 /min Univ [facility] Oxygen saturation in 2019-03-19 04:00:00 97 /min University of Arterial blood by [facility] Pulse oximetry Branch Body temperature 2019-03-19 03:28:00 36.67 Michell [facility] ersity of [place] [facility] [place] Body weight 2019-03-19 03:28:00 90.719 kg Universi ty [facility] [place] [facility] BMI 2019-03-19 03:28:00 30.41 kg/m2 [facility] BP Systolic 2022-05-10 13:39:00 117 mm[Hg] [...] Date / Time Performing Clinician Source Performed US OVARY TORSION 2022-06-18 10:41:27 Anali Cortez [facility] POCT TEST 2022-06-18 08:45:00 Anali Cortez [facility] URINALYSIS 2022-06-18 08:44:00 Anali Cortez [facility] CONSENT/REFUSAL FOR 2022-06-18 08:26:53 Doctor Unassigned, No Un [facility]ity [facility] [place] [facility] Name [facility] POCT TEST 2021-10-10 17:30:00 Pino Aldana [facility] CONSENT/REFUSAL FOR 2021-10-10 16:56:51 Doctor Unassigned, No Un [facility]ity [facility] [place] [facility] TREAT[facility] POCT TEST 2021-10-01 03:23:00 Halina Baker [facility] URINALYSIS 2021-10-01 03:17:00 Halina Baker [facility] NOTICE OF PRIVACY 2021-10-01 03:03:14 Doctor Unassigned, No Univ ersity [facility] CONSENT/REFUSAL FOR 2021-10-01 03:00:51 Doctor Unassigned, No Un [facility]ity [facility] [place] [facility] Name [facility] US OVARY TORSION 2021-09-17 05:52:50 Katherin Maurer [facility] NOTICE OF PRIVACY 2021-09-17 03:47:38 Doctor Unassigned, No Univ ersity [facility] CONSENT/REFUSAL FOR 2021-09-17 03:41:04 Doctor Unassigned, No Un [facility] [place] [facility] CT ABDOMEN PELVIS W 2021-09-15 19:51:50 Pino Aldana [facility] CONTRAST [facility] POCT TEST 2021-09-15 19:00:00 Pino Aldana [facility] LIPASE 2021-09-15 18:56:00 Pino Aldana [facility] COMP. METABOLIC PANEL 2021-09-15 18:56:00 Pino Aldana [facility] ([id number]) Medical [place] CBC WITH DIFF 2021-09-15 18:56:00 Katya Pino B [facility] URINALYSIS 2021-09-15 18:56:00 Katya Pino B [facility] COVID-19 (ID NOW RAPID 2021-09-15 18:56:00 Pino Aldana [facility] TESTING) Medical Branch CONSENT/REFUSAL FOR 2021-09-15 18:28:32 Doctor Unassigned, No Un [facility] [place] [facility] CT HEAD WO CONTRAST 2021-08-21 22:46:54 Katherin Maurer [facility] POCT TEST 2021-08-21 22:39:00 Katherin Maurer [facility] COMP. METABOLIC PANEL 2021-08-21 22:32:00 Katherin Maurer [facility] ([id number]) Medical [place] CBC WITH DIFF 2021-08-21 22:32:00 Katherin Maurer [facility] RAPID INFLUENZA A/B 2021-08-21 22:32:00 Katherin Maurer [facility] COVID-19 (ID NOW RAPID 2021-08-21 22:32:00 MaurerKatherin singh [facility] TESTING) Medical Branch CONSENT/REFUSAL FOR 2021-08-21 21:45:27 Doctor Unassigned, [facility] FREE T4 2021-04-26 20:43:00 [facility]anny [facility] CREATINE KINASE 2021-04-26 20:41:00 [facility]anny [facility] MAGNESIUM 2021-04-26 20:41:00 Blayne Hairston [facility] TROPONIN I 2021-04-26 20:41:00 Blayne Hairston [facility] COMP. METABOLIC PANEL 2021-04-26 20:41:00 Blayne Hairston [facility] ([id number]) Medical [place] SEDIMENTATION RATE 2021-04-26 19:33:00 Blayne Hairston [facility] CT CERVICAL SPINE WO 2021-04-26 19:00:47 Blayne Hairston [facility] CONTRAST [facility] CT HEAD WO CONTRAST 2021-04-26 19:00:47 Blayne Hairston [facility] COVID-19 (ID NOW RAPID 2021-04-26 18:30:00 Blayne Hairston [facility] TESTING) Medical [place] THYROID STIMULATING 2021-04-26 18:25:00 Blayne Hairston [facility] HORMONE [facility] CBC WITH DIFF 2021-04-26 18:25:00 Blayne Hairston [facility] N-TERMINAL PRO-BNP 2021-04-26 18:25:00 Blayne Hairston [facility] POCT TEST 2021-04-26 18:24:00 Blayne Hairston [facility] URINALYSIS 2021-04-26 18:23:00 Blayne Hairston [facility] URINE DRUG (IMMUNOASSAY) 2021-04-26 18:23:00 Blayne Hairston [facility] DRUG Medical [facility] SCREEN W/O REFLEX CONSENT/REFUSAL FOR 2021-04-26 16:29:45 Doctor Unassigned, No [facility] Name Medical [place] ASSIGNMENT OF BENEFITS 2021-04-18 01:01:09 Doctor Unassigned, No [facility] Name Medical Branch CONSENT/REFUSAL FOR 2021-04-17 23:47:56 Doctor Unassigned, No [facility] Name [facility] POCT TEST 2021-04-12 00:20:00 John Hinkle [facility] URINALYSIS 2021-04-12 00:18:00 John Hinkle [facility] CONSENT/REFUSAL FOR 2021-04-12 00:10:24 Doctor Unassigned, No [facility] [place] [facility]AGNOSIS [facility] TREATMENT Name [facility] Branch XR KNEE 3 VW LEFT 2020-04-29 16:37:20 Amaris Stallings [facility] COMP. METABOLIC PANEL 2020-04-29 16:30:00 Amaris Stallings [facility] ([id number]) Medical Branch CBC WITH DIFF 2020-04-29 16:30:00 Amaris Stallings [place] [facility] POCT TEST 2020-04-29 16:24:00 Amaris Stallings [facility] RAPID STREP SCREEN FOR 2020-04-29 16:11:00 Amaris Stallings [facility] GROUP A [facility] NOTICE OF PRIVACY 2020-04-29 15:31:17 [facility], [facility] FOR 2020-04-29 15:31:01 Doctor Unassigned, No [facility] [place] DIAGNOSIS AND TREATMENT Name [facility] POCT TEST 2019-03-19 04:24:00 Vonda Aguila [facility] NOTICE OF PRIVACY 2019-03-19 03:19:57 Doctor Unassigned, No Univ ersity [facility] CONSENT/REFUSAL FOR 2019-03-19 03:19:41 Doctor Unassigned, No [facility] [place] [facility] Plan of Care Planned Activity Planned Date Details Comments Source Future Scheduled 2022-06-23 [facility]ACCINE [facility] 20:25:58 [code = INFLUENZA VACCINE] Future Scheduled 2022-06-23 [facility] 20:25:58 VACCINES (1 of 3 - 3-dose series) [code = HEPATITIS B VACCINES (1 of 3 - 3-dose series)] Future Scheduled 2022-06-23 COVID-[address] [facility] Test 20:25:58 (#1) [code = COVID-19 VACCINE (#1)] Future Scheduled 2022-06-23 [facility] 20:25:58 malignant neoplasm of cervix (procedure) [code = 164841211] Future Scheduled 2022-06-20 [facility] 14:00:06 VACCINES (1 of 3 - 3-dose series) [code = HEPATITIS B VACCINES (1 of 3 - 3-dose series)] Future Scheduled 2022-06-20 COVID-19 [facility]ACCINE [facility] 14:00:06 (#1) [code = COVID-19 VACCINE (#1)] Future Scheduled 2022-06-20 [facility] 14:00:06 malignant neoplasm of cervix (procedure) [code = 905443771] Future Scheduled 2022-06-20 [facility]ACCINE [facility] 14:00:06 [code = INFLUENZA VACCINE] Future Scheduled 2022-05-21 [facility] 00:00:00 Seasonal (>/= 19 yrs) [code = IMM Influenza Seasonal (>/= 19 yrs)] Future Scheduled 2022-05-21 [facility] 00:00:00 Seasonal (>/= 19 yrs) [code = IMM Influenza Seasonal (>/= 19 yrs)] Future Scheduled 2022-05-21 [facility]MM [facility] 00:00:00 Seasonal (>/= 19 yrs) [code = IMM Influenza Seasonal (>/= 19 yrs)] Future Scheduled 2022-05-21 [facility]MM [facility] 00:00:00 Seasonal (>/= 19 yrs) [code = IMM Influenza Seasonal (>/= 19 yrs)] Future Scheduled 2022-05-21 [facility]MM [facility] 00:00:00 Seasonal (>/= 19 yrs) [code = IMM Influenza Seasonal (>/= 19 yrs)] Future Scheduled 2022-04-20 [facility] 10:42:49 malignant neoplasm of cervix (procedure) [code = 393583127] Future Scheduled 2022-04-20 [facility]UENZA VACCINE [facility] 10:42:49 [code = INFLUENZA VACCINE] Future Scheduled 2022-04-20 [facility] 10:42:49 VACCINES (1 of 3 - 3-dose series) [code = HEPATITIS B VACCINES (1 of 3 - 3-dose series)] Future Scheduled 2022-04-20 [facility] 10:42:49 (#1) [code = COVID-19 VACCINE (#1)] Future Scheduled 2022-04-20 [facility] 10:42:49 malignant neoplasm of cervix (procedure) [code = 357862382] Future Scheduled 2022-04-20 INFLUENZA VACCINE [facility] 10:42:49 [code = INFLUENZA VACCINE] Future Scheduled 2022-04-20 [facility] 10:42:49 VACCINES (1 of 3 - 3-dose series) [code = HEPATITIS B VACCINES (1 of 3 - 3-dose series)] Future Scheduled 2022-04-20 COVID-19 VACCINE Methodi [facility] Test 10:42:49 (#1) [code = COVID-19 VACCINE (#1)] Future Scheduled 2022-04-20 [facility] 10:42:49 malignant neoplasm of cervix (procedure) [code = 313573708] Future Scheduled 2022-04-20 INFLUENZA VACCINE Method [facility] Test 10:42:49 [code = INFLUENZA VACCINE] Future Scheduled 2022-04-20 [facility] 10:42:49 VACCINES (1 of 3 - 3-dose series) [code = HEPATITIS B VACCINES (1 of 3 - 3-dose series)] Future Scheduled 2022-04-20 COVID-19 VACCINE Methodi [facility] Test 10:42:49 (#1) [code = COVID-19 VACCINE (#1)] Future Scheduled 2021-05-21 IMM [facility] 00:00:00 Seasonal May to October (>/= 19 yrs) [code = IMM Influenza Seasonal May to October (>/= 19 yrs)] Future Scheduled 2020-04-20 [facility] 00:00:00 malignant neoplasm of cervix (procedure) [code = 116973293] Future Scheduled 2020-04-20 [facility] 00:00:00 malignant neoplasm of cervix (procedure) [code = 137412809] Future Scheduled 2020-04-20 [facility] 00:00:00 malignant neoplasm of cervix (procedure) [code = 704267161] Future Scheduled 2020-04-20 [facility] 00:00:00 malignant neoplasm of cervix (procedure) [code = 199307881] Future Scheduled 2020-04-20 [facility] 00:00:00 malignant neoplasm of cervix (procedure) [code = 455511697] Future Scheduled 2020-04-20 [facility] 00:00:00 malignant neoplasm of cervix (procedure) [code = 554370039] Future Scheduled 2015 [facility] 00:00:00 malignant neoplasm of cervix (procedure) [code = 464877942] Future Scheduled 2015 [facility] 00:00:00 malignant neoplasm of cervix (procedure) [code = 683640205] Future Scheduled 2015 [facility] 00:00:00 malignant neoplasm of cervix (procedure) [code = 089713111] Future Scheduled 2015 [facility] 00:00:00 malignant neoplasm of cervix (procedure) [code = 337567829] Future Scheduled 2015 [facility] 00:00:00 malignant neoplasm of cervix (procedure) [code = 664047107] Future Scheduled 2015 [facility] 00:00:00 malignant neoplasm of cervix (procedure) [code = 566676387] Future Scheduled 1997 COVID-19 [facility]ine [facility] [...] COVID-19 VACCINE (1)] Future Scheduled [facility] malignant neoplasm of cervix (procedure) [code = 710817300] Future Scheduled INFLUENZA VACCINE [facility] [code = INFLUENZA VACCINE] Goal Plan of Care Note [code = 61167-3] Goal Plan of Care Note [code = 83610-2] Goal Plan of Care Note [code = 91381-0] Goal Plan of Care Note [code = 18413-8] Goal Plan of Care Note [code = 41789-8] Goal Plan of Care Note [code = 02339-4] Goal Plan of Care Note [code = 55502-2] Goal Plan of Care Note [code = 57060-9] Goal Plan of Care Note [code = 96545-5] Goal Plan of Care Note [code = 98194-3] Goal Plan of Care Note [code = 08055-6] Goal Plan of Care Note [code = 69931-7] Goal Plan of Care Note [code = 78352-5] Goal Plan of Care Note [code = 70570-6] Goal Plan of Care Note [code = 20470-1] Goal Plan of Care Note [code = 14258-5] Goal Plan of Care Note [code = 19066-7] Goal Plan of Care Note [code = 55832-9] Goal Plan of Care Note [code = 58484-2] Goal Plan of Care Note [code = 62513-4] Goal Plan of Care Note [code = 58907-5] Goal Plan of Care Note [code = 98805-2] Goal Plan of Care Note [code = 07898-4] Goal Plan of Care Note [code = 73615-4] Goal Plan of Care Note [code = 59131-2] Goal Plan of Care Note [code = 95715-8] Goal Plan of Care Note [code = 95400-9] Goal Plan of Care Note [code = 12182-8] Goal Plan of Care Note [code = 55908-2] Goal Plan of Care Note [code = 61535-9] Goal Plan of Care Note [code = 77133-0] Goal Plan of Care Note [code = 06609-8] Goal Plan of Care Note [code = 05214-0] Goal Plan of Care Note [code = 56421-9] Goal Plan of Care Note [code = 40770-0] Goal Plan of Care Note [code = 26885-7] Goal Plan of Care Note [code = 76007-9] Goal Plan of Care Note [code = 40949-7] Goal Plan of Care Note [code = 01016-6] Goal Plan of Care Note [code = 63121-4] Goal Plan of Care Note [code = 71800-5] Goal Plan of Care Note [code = 15485-3] Goal Plan of Care Note [code = 47334-7] Goal Plan of Care Note [code = 14136-2] Goal Plan of Care Note [code = 28780-3] Goal Plan of Care Note [code = 78877-4] Goal Plan of Care Note [code = 19947-2] Goal Plan of Care Note [code = 28795-4] Goal Plan of Care Note [code = 12451-5] Goal Plan of Care Note [code = 51765-0] Goal Plan of Care Note [code = 69450-6] Goal Plan of Care Note [code = 84734-0] Goal Plan of Care Note [code = 51577-2] Goal Plan of Care Note [code = 50065-9] Goal Plan of Care Note [code = 47696-5] Goal Plan of Care Note [code = 75916-5] Goal Plan of Care Note [code = 46450-0] Goal Plan of Care Note [code = 85044-2] Goal Plan of Care Note [code = 14532-8] Goal Plan of Care Note [code = 57999-0] Goal Plan of Care Note [code = 04508-2] Goal Plan of Care Note [code = 26526-5] Goal Plan of Care Note [code = 73691-5] Goal Plan of Care Note [code = 96731-9] Goal Plan of Care Note [code = 48424-7] Goal Plan of Care Note [code = 12246-7] Goal Plan of Care Note [code = 95220-8] Goal Plan of Care Note [code = 08499-0] Goal Plan of Care Note [code = 36930-7] Goal Plan of Care Note [code = 57416-8] Goal Plan of Care Note [code = 89530-6] Goal Plan of Care Note [code = 27766-0] Goal Plan of Care Note [code = 19609-5] Goal Plan of Care Note [code = 30795-9] Goal Plan of Care Note [code = 51489-0] Goal Plan of Care Note [code = 38180-6] Goal Plan of Care Note [code = 01081-0] Goal Plan of Care Note [code = 13873-2] Goal Plan of Care Note [code = 42540-2] Goal Plan of Care Note [code = 68953-1] Goal Plan of Care Note [code = 06757-3] Goal Plan of Care Note [code = 46873-4] Goal Plan of Care Note [code = 81962-9] Goal Plan of Care Note [code = 82425-6] Goal Plan of Care Note [code = 65385-2] Goal Plan of Care Note [code = 06086-1] Goal Plan of Care Note [code = 57609-5] Goal Plan of Care Note [code = 35034-5] Goal Plan of Care Note [code = 05559-1] Goal Plan of Care Note [code = 17048-6] Goal Plan of Care Note [code = 28006-3] Goal Plan of Care Note [code = 83949-5] Goal Plan of Care Note [code = 90864-4] Goal Plan of Care Note [code = 34013-6] Goal Plan of Care Note [code = 62374-6] Goal Plan of Care Note [code = 12012-5] Goal Plan of Care Note [code = 37516-2] Goal Plan of Care Note [code = 85796-1] Goal Plan of Care Note [code = 18611-0] Goal Plan of Care Note [code = 92001-8] Goal Plan of Care Note [code = 70047-8] Goal Plan of Care Note [code = 01757-2] Goal Plan of Care Note [code = 10697-0] Goal Plan of Care Note [code = 96481-9] Goal Plan of Care Note [code = 97890-4] Goal Plan of Care Note [code = 72102-8] Goal Plan of Care Note [code = 14519-8] Goal Plan of Care Note [code = 96699-3] Goal Plan of Care Note [code = 98960-6] Goal Plan of Care Note [code = 61736-4] Goal Plan of Care Note [code = 43482-8] Goal Plan of Care Note [code = 04938-6] Goal Plan of Care Note [code = 82194-4] Goal Plan of Care Note [code = 71180-0] Goal Plan of Care Note [code = 71969-8] Goal Plan of Care Note [code = 62660-0] Goal Plan of Care Note [code = 54156-1] Goal Plan of Care Note [code = 33809-7] Goal Plan of Care Note [code = 43058-7] Goal Plan of Care Note [code = 29564-7] Goal Plan of Care Note [code = 33321-6] Goal Plan of Care Note [code = 37596-3] Goal Plan of Care Note [code = 14536-8] Goal Plan of Care Note [code = 86023-1] Goal Plan of Care Note [code = 23485-3] Goal Plan of Care Note [code = 80228-5] Goal Plan of Care Note [code = 37205-6] Goal Plan of Care Note [code = 75270-6] Goal Plan of Care Note [code = 58115-1] Goal Plan of Care Note [code = 37847-7] Goal Plan of Care Note [code = 13487-2] Goal Plan of Care Note [code = 95466-5] Goal Plan of Care Note [code = 07844-6] Goal Plan of Care Note [code = 91112-4] Goal Plan of Care Note [code = 92273-8] Goal Plan of Care Note [code = 13527-7] Goal Plan of Care Note [code = 89216-9] Goal Plan of Care Note [code = 77178-1] Goal Plan of Care Note [code = 70956-2] Goal Plan of Care Note [code = 52037-5] Goal Plan of Care Note [code = 72301-1] Goal Plan of Care Note [code = 53622-3] Encounters Start End Encounter Admission Attending Care Care Encounter Source Date/Time Date/Time Type Type Clinicians Facility Department ID 2021-06-21 Emergency [facility] [id number] Univers 20:38:37 [facility] 2021-06-21 Emergency [facility] [id number] Univers 18:47:54 [facility] 2021-06-21 Emergency [facility] [id number] Univers 17:14:45 ity of [facility] 2021-06-18 Emergency [facility] [id number] Univers 16:34:49 ity [facility] 2022-06-20 2022-06-20 Outpatient SFA SFA [id number] Shawn 13:59:58 13:59:58 1031 F Kit 2022-06-18 2022-06-18 Emergency [facility] [id number] Univers 03:39:00 06:21:00 WAKILI ity [facility] 2022-06-18 2022-06-18 Emergency [facility] [id number] [id number] Univers 03:39:00 06:21:00 Anali Jeter [place] 350.1.13.10 ity [facility] 4.2.7.2.686 [facility] [id number] [address] 2022-05-10 2022-05-10 Outpatient [id number]- [id number] 6q9p14-3 00:00:00 00:00:00 Visit 6faf-4aa9 faf-4aa9-a -n989-mxu 252-syp318 902jo0j74 fd9c83 2022-03-25 2022-03-25 Outpatient 2dgk92i1- [id number] 3b er60q8-5 00:00:00 00:00:00 Visit 7426-0507 526-4361-b -g124-2d6 748-0f33f8 6n296623x 66313u 2022-03-22 2022-03-22 Outpatient [id number]- [id number] 5s58tp-a 00:00:00 00:00:00 Visit j66u-0446 49f-4209-9 -64j0-z45 4n1-m747li 8rkpf551x ts031p 2021-10-10 2021-10-10 Emergency [facility] [id number] Univers 11:13:00 11:56:00 PINO ity [facility] 2021-10-10 2021-10-10 Emergency [facility] 1.2.840.114 [id number] Univers 11:13:00 11:56:00 Pino B [place] 350.1.13.10 i ty of [place] 4.2.7.2.686 [facility] [id number] [address] 2021-09-30 2021-09-30 Emergency [facility] [id number] Univers 21:14:00 22:04:00 HALINA ity [facility] 2021-09-30 2021-09-30 Emergency [facility] 1.2.720.920 [id number] Univers 21:14:00 22:04:00 Halina Mathews [place] 350.1.13.10 ity of [place] 4.2.7.2.686 [facility] [id number] [address] 2021-09-30 2021-09-30 Orders Doctor ANTHONY 1.2.840.114 [id number] Univers 00:00:00 00:00:00 Only Unassigned, LINDA 350.1.13.10 ity of [facility] 4.2.7.2.686 Luis as [id number] [place] [address] [address] 2021-09-16 2021-09-17 [facility] [id number] Univers 21:51:00 00:42:00 KATHERIN ity [facility] 2021-09-16 2021-09-17 Emergency [facility] 1.2.146.500 [id number] Univers 21:51:00 00:42:00 Katherin Jeter [place] 350.1.13.10 i ty of [place] 4.2.7.2.686 [facility] [id number] [address] 2021-09-15 2021-09-15 Emergency X [facility] ERT [id number] Univers 12:41:00 15:07:00 PINO ity [facility] 2021-09-15 2021-09-15 Emergency [facility] 1.2.840.114 [id number] Univers 12:41:00 15:07:00 Pino B [place] 350.1.13.10 i ty of [place] 4.2.7.2.686 [facility] [id number] [place] [address] [place] 2021-08-21 2021-08-21 Emergency X ZEINA [facility] ERT [id number] Univers 15:57:00 17:52:00 KATHERIN ity of [facility] 2021-08-21 2021-08-21 Emergency [facility] 1.2.871.427 [id number] Univers 15:57:00 17:52:00 Katherin S [place] 350.1.13.10 i ty [facility] 4.2.7.2.686 [facility] [id number] [place] [address] Branch 2021-08-21 2021-08-21 Orders Doctor CRUZ 1.2.840.114 [id number] Univers 00:00:00 00:00:00 Only Unassigned, LINDA 350.1.13.10 ity of [place] 4.2.7.2.686 Luis as [id number] [place] [address] [place] 2021-04-26 2021-04-26 Emergency [facility] 1.2.863.164 [id number] Univers 12:05:00 17:42:00 Blayne Smith 350.1.13.10 i ty of [place] 4.2.7.2.686 [facility] [id number] [place] [address] Branch 2021-04-26 2021-04-26 Orders Doctor CRUZ 1.2.840.114 [id number] Univers 00:00:00 00:00:00 Only Unassigned, LINDA 350.1.13.10 ity of [place] 4.2.7.2.686 Luis as [id number] [place] [address] [address] 2021-04-17 2021-04-17 Emergency [facility] 1.2.103.972 [id number] Univers 18:55:00 20:04:00 Basil Smith 350.1.13.10 i ty of [place] 4.2.7.2.686 [facility] [id number] [place] [address] Branch 2021-04-11 2021-04-11 Emergency [facility] 1.2.474.327 [id number] Univers 19:20:00 20:53:00 Katherin S [place] 350.1.13.10 i ty of [place] 4.2.7.2.686 [facility] [id number] [address] 2020-04-29 2020-04-29 [facility] 1.2.247.478 [id number] [facility] 10:44:00 14:30:00 Amaris R [place] 350.1.13.10 i ty of [place] 4.2.7.2.686 [facility] [id number] [address] 2020-04-29 2020-04-29 [facility] 1.2.419.924 [id number] 10:44:00 14:30:00 Amaris R [place] 350.1.13.10 [place] 4.2.7.2.686 [place] [id number] [facility] 2020-04-29 2020-04-29 Orders Doctor CRUZ 1.2.840.114 [id number] Univers 00:00:00 00:00:00 Only Unassigned, LINDA 350.1.13.10 ity of [place] [facility] 4.2.7.2.686 Luis [id number] [address] 2020-04-29 2020-04-29 Orders Doctor CRUZ 1.2.840.114 [id number] 00:00:00 00:00:00 Only Unassigned, LINDA 350.1.13.10 [facility] 4.2.7.2.686 [id number] [facility] 2019-04-14 2019-04-14 [facility] 1.2.840.114 [id number] [facility] 17:25:25 17:58:00 Ad [place] 350.1.13.10 i ty of [place] 4.2.7.2.686 [facility] [id number] [address] 2019-04-14 2019-04-14 [facility] 1.2.840.114 [id number] 17:25:25 17:58:00 Ad [place] 350.1.13.10 [place] 4.2.7.2.686 [place] [id number] 084 2019-03-18 2019-03-18 Emergency Vonda Aguila [facility] 1.2.840.114 [id number] [facility] 22:34:35 23:51:00 Maribel [place] 350.1.13.10 i ty of [place] 4.2.7.2.686 [facility] [id number] [place] [address]44 [place] 2019-03-18 2019-03-18 Emergency Vonda Aguila [facility] 1.2.840.114 [id number] 22:34:35 23:51:00 Maribelamy [place] 350.1.13.10 [place] 4.2.7.2.686 [place] [id number] [facility] 2017-04-09 2017-04-09 [facility] [id number] Krishnamurthy 00:00:00 00:00:00 [facility] 2017-04-09 2017-04-09 [facility] [id number] Krishnamurthy 00:00:00 00:00:00 [facility] 2017-04-08 2017-04-08 [facility] [id number] Krishnamurthy 22:35:00 22:35:00 [facility] 2017-04-08 2017-04-08 [facility] [id number] Krishnamurthy 00:00:00 00:00:00 Health Results Test Description Test Time Test Comments Results Result Comments Source POCT TEST 2022-06-18 08:45:00 Test Item Value Reference Range Interpretation Comme nts POCT PREG (test code = 1605) negative On board controls acceptable with C Line (test code = 3574) positiv e POCT PREG LOT # (test code = 3575) [id number] POCT PREG TEST DATE (test code = 3576) 10/19/2023 Lab Interpretation (test code = 59517-2) [facility] [id number] 11:51:28SPECIMEN NUMBER: [id number] CULTURE, URINE SPECIMEN NUMBER: [id number] SPECIMEN COMMENT: URINE SOURCE: URINE REPORT STATUS: FINAL FINAL REPORT: 05/12/2022 <10,000 CFU/ML UROGENITAL MISAEL PRESENT NO COMMON PATHOGENSVAGINAL PATHOGENS DNA PANEL 2022-05-11 16:13:10 Test Item Value Reference Range Interpretation Comments DEMIAN SPECIES (test NEGATIVE NEGATIVE code = 54656) G. VAGINALIS (test POSITIVE NEGATIVE A code = ) T. VAGINALIS (test NEGATIVE NEGATIVE UNLESS O THERWISE code = ) INDICATED, ALL TESTING PERFORMED [facility], [facility]ATED [facility]IN [facility], [facility]. [address] [place] [address] 4 LABORATORY DIRE CTOR: MARYLIN ESQUIVEL M.D. CLIA NUMBER [id number] [place]. [id number] CBC W/AUTO DIFF WITH [id number] 08:28:04 Test Item Value Reference Range Interpretation [...] RBCS 0.00 K/UL 0.00-0.11 (test code = 10700) FSH + LH [id number] 06:43:39 Test Item Value Reference Range Interpretation Comments FOLLICLE STIM HORMONE 12.1 IU/L SEE BELOW EXPECTED (test code = 2700) VALUES FO R FSH FOR FEMALES >17 YEA RS MALES F EMALES >=18 YEARS 1.5- 12.4 IU/L FOLLICULAR 3.5-12.5 [...] LUTEAL PHASE 1.0-11.4 IU/L POSTMENOPAUSAL 7.7-58.5 IU/L [id number] 06:43:39 Test Item Value Reference Range Interpretation Comments PROLACTIN (test 5.6 NG/ML 5.0-37.0 NOTE: Meth odology is Luz code = 2800) Jeanna Electroch emiluminescence Immunoassay (EC VERNON). Values obtained with d ifferent assays/manufact urers cannot be used interchang eably. Results should not be u sed as sole basis to establ ben the presence or abs ence of malignancy. UNL ESS OTHERWISE INDICATED, ALL TESTING PERFORMED [facility], [place] [address] [place] [address] 6921 TOWER FOREMAN: Karen MONTERROSO [id number] [place]. [id number] TSH, THIRD [id number] 06:43:39 Test Item Value Reference Range Interpretation Comments TSH, THIRD GENERATION (test code 0.359 UIU/ML 0.400-4.100 L = 2821) [id number] 06:43:39 Test Item Value Reference Range Interpretation [...] POST MENOPAUSAL SUPPLEMENTED/NO N-SUPP . PG/ML <138.0/<20.0 N OTE: TO DETERMINE PATRICIA L VS. SUBNORMAL ESTRA DIOL IN POSTMENOPAUSAL FEMALES, CONSIDER ULTRAS ENSITIVE ESTRADIOL ([facility] ORDER CODE 5678). METHODOL OGY IS LUZ JEANNA ELECTROCH EMILUMINESCENT IMMUNOASSAY WIT H A LIMIT OF DETECTION OF 17 PG/ML. CBC W/AUTO [id number] 00:00:00 Test Item Value Reference Range Interpretation [...] NUCLEATED RBCS (test code = 0.00 K/UL 09098) CBC W/AUTO [id number] 00:00:00 Test Item Value Reference Range Interpretation [...] NUCLEATED RBCS (test code = 0.00 K/UL 36748) CBC W/AUTO [id number] 00:00:00 Test Item Value Reference Range Interpretation [...] NUCLEATED RBCS (test code = 0.00 K/UL 84745) [id number] 00:00:00 Test Item Value Reference Range Interpretation Comments TSH, THIRD GENERATION (test code 0.359 UIU/ML = 2821) [id number] 00:00:00 Test Item Value Reference Range Interpretation Comments TSH, THIRD GENERATION (test code 0.359 UIU/ML = 2821) [id number] 00:00:00 Test Item Value Reference Range Interpretation Comments TSH, THIRD GENERATION (test code 0.359 UIU/ML = 2821) [id number] 00:00:00 Test Item Value Reference Range Interpretation Comments ESTRADIOL (test code = 2505) 34.5 PG/ML [id number] 00:00:00 Test Item Value Reference Range Interpretation Comments ESTRADIOL (test code = 2505) 34.5 PG/ML [id number] 00:00:00 Test Item Value Reference Range Interpretation Comments ESTRADIOL (test code = 2505) 34.5 PG/ML [facility] + LH [id number] 00:00:00 Test Item Value Reference Range Interpretation Comments FOLLICLE STIM HORMONE (test code = 12.1 IU/L 2700) LUTEINIZING HORMONE (test code = 5.2 IU/L 2776) FSH + LH [id number] 00:00:00 Test Item Value Reference Range Interpretation Comments FOLLICLE STIM HORMONE (test code = 12.1 IU/L 2700) LUTEINIZING HORMONE (test code = 5.2 IU/L 2776) [id number] 00:00:00 Test Item Value Reference Range Interpretation Comments PROLACTIN (test code = 2800) 5.6 NG/ML [id number] 00:00:00 Test Item Value Reference Range Interpretation Comments PROLACTIN (test code = 2800) 5.6 NG/ML CBC W/AUTO [id number] 00:00:00 Test Item Value Reference Range Interpretation [...] NUCLEATED RBCS (test code = 0.00 K/UL 83928) CBC W/AUTO [id number] 00:00:00 Test Item Value Reference Range Interpretation [...] NUCLEATED RBCS (test code = 0.00 K/UL 59943) CBC W/AUTO [id number] 00:00:00 Test Item Value Reference Range Interpretation [...] NUCLEATED RBCS (test code = 0.00 K/UL 91324) [id number] 00:00:00 Test Item Value Reference Range Interpretation Comments TSH, THIRD GENERATION (test code 0.359 UIU/ML = 2821) [id number] 00:00:00 Test Item Value Reference Range Interpretation Comments TSH, THIRD GENERATION (test code 0.359 UIU/ML = 2821) [id number] 00:00:00 Test Item Value Reference Range Interpretation Comments TSH, THIRD GENERATION (test code 0.359 UIU/ML = 2821) [id number] 00:00:00 Test Item Value Reference Range Interpretation Comments ESTRADIOL (test code = 2505) 34.5 PG/ML [id number] 00:00:00 Test Item Value Reference Range Interpretation Comments ESTRADIOL (test code = 2505) 34.5 PG/ML [id number] 00:00:00 Test Item Value Reference Range Interpretation Comments ESTRADIOL (test code = 2505) 34.5 PG/ML FSH + LH [id number] 00:00:00 Test Item Value Reference Range Interpretation Comments FOLLICLE STIM HORMONE (test code = 12.1 IU/L 2700) LUTEINIZING HORMONE (test code = 5.2 IU/L 2776) FSH + LH [id number] 00:00:00 Test Item Value Reference Range Interpretation Comments FOLLICLE STIM HORMONE (test code = 12.1 IU/L 2700) LUTEINIZING HORMONE (test code = 5.2 IU/L 2776) [id number] 00:00:00 Test Item Value Reference Range Interpretation Comments PROLACTIN (test code = 2800) 5.6 NG/ML [id number] 00:00:00 Test Item Value Reference Range Interpretation Comments PROLACTIN (test code = 2800) 5.6 NG/ML VAGINAL PATHOGENS DNA [id number] 21:19:07 Test Item Value Reference Range Interpretation Comments DEMIAN SPECIES (test code = 42061) NEGATIVE NEGATIVE G. VAGINALIS (test code = 07210) POSITIVE NEGATIVE A T. VAGINALIS (test code = 94953) NEGATIVE NEGATIVE [id number] 04:51:55 Test Item Value Reference Range Interpretation Comments RPR RESULT (test code = NON-REACTIVE NON-REACTIVE 3501) RPR TITER (test code = 3500) NOT INDIC. TITER NOT INDIC. HIV 1/2 4TH GEN, RFLX [id number] 04:00:28 Test Item Value Reference Range Interpretation Comments HIV 1/2 4TH GEN, RFLX CONF (test NON-REACTIVE NON-REACTIVE code = 3514) HEPATITIS PANEL, [id number] 04:00:28 Test Item Value Reference Range Interpretation Comments HEPATITIS A IgM (test NON-REACTIVE NON-REACTIVE code = 04511) HEPATITIS B CORE IgM NON-REACTIVE NON-REACTIVE (test code = 4644) HEPATITIS B SURF AG NON-REACTIVE NON-REACTIVE (test code = 2739) HEPATITIS C ANTIBODY NON-REACTIVE NON-REACTIVE (test code = 4675) INTERPRETATION (NOTE) Hepatitis A HEPATITIS A: (test serology shows no code = 2552) evidence of acu te hepatitis A. INTERPRETATION (NOTE) Hepatitis B HEPATITIS B: (test serology shows no code = 77602) evidence of ac [place] hepatitis B and no indication of exposure to hepatitis B vir us in the previous si xto eight months. INTERPRETATION (NOTE) Hepatitis C HEPATITIS C: (test serology shows no code = 36982) evidence of ex posure to hepatitisC v irus at this time. I t can take up to 12 m onths after exposure tothe hepatitis C vir us for antibodies to become detectab le in the blood in ce rtain patients. UNLES S OTHERWISE INDIC ATED, ALL TESTING PERFORMED [facility], [place] [place] [address] [facility] DIRECTOR: Karen MONTERROSOIA NUMBER [id number] [place] [id number] VAGINAL PATHOGENS DNA PANEL [ADDED]2021-12-22 00:00:00 Test Item Value Reference Range Interpretation Comments DEMIAN SPECIES (test code = ) NEGATIVE G. VAGINALIS (test code = 38695) POSITIVE T. VAGINALIS (test code = 98907) NEGATIVE HIV 1/2 4TH GEN, RFLX CONF [...] HEPATITIS A IgM (test code = NON-REACTIVE 87823) HEPATITIS B CORE IgM (test code NON-REACTIVE = 4644) HEPATITIS B SURF AG (test code = NON-REACTIVE 2739) HEPATITIS C ANTIBODY (test code NON-REACTIVE = 4675) INTERPRETATION HEPATITIS A: (NOTE) (test code = 2552) INTERPRETATION HEPATITIS B: (NOTE) (test code = 03673) INTERPRETATION HEPATITIS C: (NOTE) (test code = 89412) VAGINAL PATHOGENS DNA PANEL [ADDED]2021-12-22 00:00:00 Test Item Value Reference Range Interpretation Comments DEMIAN SPECIES (test code = ) NEGATIVE G. VAGINALIS (test code = 55311) POSITIVE T. VAGINALIS (test code = 32239) NEGATIVE VAGINAL PATHOGENS DNA PANEL [ADDED]2021-12-22 00:00:00 Test Item Value Reference Range Interpretation Comments DEMIAN SPECIES (test code = 00080) NEGATIVE G. VAGINALIS (test code = 07652) POSITIVE T. VAGINALIS (test code = 49493) NEGATIVE HIV 1/2 4TH GEN, RFLX CONF [...] HEPATITIS A IgM (test code = NON-REACTIVE 28299) HEPATITIS B CORE IgM (test code NON-REACTIVE = 4644) HEPATITIS B SURF AG (test code = NON-REACTIVE 2739) HEPATITIS C ANTIBODY (test code NON-REACTIVE = 4675) INTERPRETATION HEPATITIS A: (NOTE) (test code = 2552) INTERPRETATION HEPATITIS B: (NOTE) (test code = 05285) INTERPRETATION HEPATITIS C: (NOTE) (test code = 61867) HEPATITIS PANEL, ACUTE [ADDED]2021-12-22 00:00:00 Test Item Value Reference Range Interpretation Comments HEPATITIS A IgM (test code = NON-REACTIVE 42465) HEPATITIS B CORE IgM (test code NON-REACTIVE = 4644) HEPATITIS B SURF AG (test code = NON-REACTIVE 2739) HEPATITIS C ANTIBODY (test code NON-REACTIVE = 4675) INTERPRETATION HEPATITIS A: (NOTE) (test code = 2552) INTERPRETATION HEPATITIS B: (NOTE) (test code = 49263) INTERPRETATION HEPATITIS C: (NOTE) (test code = 19766) VAGINAL PATHOGENS DNA PANEL [ADDED]2021-12-22 00:00:00 Test Item Value Reference Range Interpretation Comments DEMIAN SPECIES (test code = ) NEGATIVE G. VAGINALIS (test code = ) POSITIVE T. VAGINALIS (test code = ) NEGATIVE VAGINAL PATHOGENS DNA PANEL [ADDED]2021-12-22 00:00:00 [...] HEPATITIS A IgM (test code = NON-REACTIVE 16255) HEPATITIS B CORE IgM (test code NON-REACTIVE = 4644) HEPATITIS B SURF AG (test code = NON-REACTIVE 2739) HEPATITIS C ANTIBODY (test code NON-REACTIVE = 4675) INTERPRETATION HEPATITIS A: (NOTE) (test code = 2552) INTERPRETATION HEPATITIS B: (NOTE) (test code = 57181) INTERPRETATION HEPATITIS C: (NOTE) (test code = 19060) HEPATITIS PANEL, ACUTE [ADDED]2021-12-22 00:00:00 Test Item Value Reference Range Interpretation Comments HEPATITIS A IgM (test code = NON-REACTIVE 91828) HEPATITIS B CORE IgM (test code NON-REACTIVE = 4644) HEPATITIS B SURF AG (test code = NON-REACTIVE 2739) HEPATITIS C ANTIBODY (test code NON-REACTIVE = 4675) INTERPRETATION HEPATITIS A: (NOTE) (test code = 2552) INTERPRETATION HEPATITIS B: (NOTE) (test code = 82972) INTERPRETATION HEPATITIS C: (NOTE) (test code = 58712) POCT [id number] 17:30:00 Test Item Value Reference Range Interpretation Comments POCT PREG (test code = 1605) NEGATIVE On board controls acceptable with PRESENT C Line (test code = 3574) POCT PREG LOT # (test code = 3575) [id number] POCT PREG TEST DATE (test 10/18/2022 code = 3576) Lab Interpretation (test code = Normal 01061-3) [id number] 03:23:00 Test Item Value Reference Range Interpretation Comments POCT PREG (test code = 1605) negative On board controls acceptable with present C Line (test code = 3574) POCT PREG LOT # (test code = 3575) [id number] POCT PREG TEST DATE (test 2022-10-18 code = 3576) Lab Interpretation (test code = Normal 52360-0) [facility] [id number] 20:17:20 Test Item Value Reference Range Interpretation Comments WBC (test code = See_Comment H [Automated 1831-2) message] The sy stem which generated this result transmitted reference range : 4.30 - 11.10 10*3/?L. The reference range was not used to interpret this result as normal/abnormal . RBC (test code = See_Comment [Automated 476-8) message] The sy stem which generated this [...] RDW-SD (test code = 43.7 fL 39.0-49.9 18871-4) RDW-CV (test code = 13.0 % 12.0-15.5 788-0) PLT (test code = See_Comment H [Automated 777-3) message] The sy stem which generated this result transmitted reference range : 166 - 358 10*3/ ?L. The reference r dinora was not used to interpret this result as normal/abnormal . MPV (test code = 9.6 fL 9.5-12.9 16952-4) NRBC/100 WBC (test See_Comment [Automat ed code = 6523592830) message] The system which generated this result transmitted reference range : 0.0 - 10.0 /100 WBCs. The refer ence range was not u sed to interpret th is result as normal/abnormal . NRBC x10^3 (test code <0.01 See_Comment [Auto mated = 6453909190) message] The s ystem which generated this result transmitted reference range : 10*3/?L. The reference range was not used to interpret this result as normal/abnormal . GRAN MAT (NEUT) % 53.3 % (test code = 770-8) IMM GRAN % (test code 0.50 % = 9426501949) LYMPH % (test code = 39.2 % 736-9) MONO % (test code = 5.3 % 5905-5) EOS % (test code = 1.1 % 713-8) BASO % (test code = 0.6 % 706-2) GRAN MAT x10^3(ANC) 6.66 10*3/uL 1.88-7.09 (test code = 2111975086) IMM GRAN x10^3 (test 0.06 10*3/uL 0.00-0.06 code = 7576078142) LYMPH x10^3 (test code 4.91 10*3/uL 1.32-3.29 H = 731-0) MONO x10^3 (test code 0.66 10*3/uL 0.33-0.92 = 742-7) EOS x10^3 (test code = 0.14 10*3/uL 0.03-0.39 711-2) BASO x10^3 (test code 0.08 10*3/uL 0.01-0.07 H = 704-7) REACT LYMPHS (test Rare code = 3323972044) Lab Interpretation Abnormal (test code = 00994-8) [facility]. METABOLIC PANEL (21396)2021-09-15 19:38:55 Test Item Value Reference Range Interpretation Comments NA (test code = 137 mmol/L 135-145 5388602891) K (test code = 4.2 mmol/L 3.5-5.0 6376024492) CL (test code = 108 mmol/L 98-108 3341573182) CO2 TOTAL (test code = 22 mmol/L 23-31 L 7672261127) AGAP (test code = 2-16 8781176681) BUN (test code = 8 mg/dL 7-23 2420405344) GLUCOSE (test code = 91 mg/dL 70-110 0987097608) CREATININE (test code = 0.54 mg/dL 0.50-1.04 7807640598) TOTAL BILI (test code = 0.5 mg/dL 0.1-1.0 1744253792) CALCIUM (test code = 9.3 mg/dL 8.6-10.6 7559530867) T PROTEIN (test code = 8.1 g/dL 6.3-8.2 7391369902) ALBUMIN (test code = 4.8 g/dL 3.5-5.0 7391451348) ALK PHOS (test code = 93 U/L 34-122 6312925815) ALTv (test code = 18 U/L 5-35 1742-6) AST(SGOT) (test code = 26 U/L 13-40 2029033610) eGFR (test code = mL/min/1.73m2 4739631508) DIEGO (test code = DIEGO) Association of [...] tests). Lab Interpretation Abnormal (test code = 74510-5) [facility]:25[facility]19 Test Item Value Reference Range Interpretation Comments LIPASE (test code = 6166499008) 108 U/L 0-220 Lab Interpretation (test code = Normal 94435-2) [facility] [id number] 19:00:00 Test Item Value Reference Range Interpretation Comments POCT PREG (test code = 1605) negative On board controls acceptable with present C Line (test code = 3574) POCT PREG LOT # (test code = 3575) [id number] POCT PREG TEST DATE (test code = 3576) Lab Interpretation (test code = Normal 46628-0) [facility] (10867)2021-08-21 23:29:45 Test Item Value Reference Range Interpretation Comments NA (test code = 135 mmol/L 135-145 7513331573) K (test code = 4.2 mmol/L 3.5-5.0 2269580240) CL (test code = 103 mmol/L 98-108 0806393807) CO2 TOTAL (test code 24 mmol/L 23-31 = 1979706232) AGAP (test code = 2-16 4234229550) BUN (test code = 7 mg/dL 7-23 8755323373) GLUCOSE (test code = 102 mg/dL 70-110 2482565634) CREATININE (test code 0.52 mg/dL 0.50-1.04 = 6505980998) TOTAL BILI (test code 0.4 mg/dL 0.1-1.1 = 7419028246) CALCIUM (test code = 9.3 mg/dL 8.6-10.6 0476998592) T PROTEIN (test code 7.8 g/dL 6.3-8.2 = 7269413671) ALBUMIN (test code = 4.6 g/dL 3.5-5.0 2761427353) ALK PHOS (test code = 95 U/L 34-122 2387061840) ALTv (test code = 18 U/L 5-35 1742-6) AST(SGOT) (test code 27 U/L 13-40 = 1118374619) eGFR (test code = mL/min/1.73m2 0089328577) DIEGO (test code = DIEGO) Association of [...] or urine or abnormalities in imaging tests). [facility] WITH [id number] 23:07:05 Test Item Value Reference Range Interpretation [...] RDW-SD (test code = 44.0 fL 39.0-49.9 56219-2) RDW-CV (test code = 12.8 % 12.0-15.5 788-0) PLT (test code = See_Comment H [Automated 777-3) message] The sy stem which generated this result transmitted reference range : 166 - 358 10*3/ ?L. The reference r dinora was not used to interpret this result as normal/abnormal . MPV (test code = 9.8 fL 9.5-12.9 18830-3) NRBC/100 WBC (test See_Comment [Automat ed code = 9561143798) message] The system which generated this result transmitted reference range : 0.0 - 10.0 /100 WBCs. The refer ence range was not u sed to interpret th is result as normal/abnormal . NRBC x10^3 (test code <0.01 See_Comment [Auto mated = 0975282073) message] The s ystem which generated this result transmitted reference range : 10*3/?L. The reference range was not used to interpret this result as normal/abnormal . GRAN MAT (NEUT) % 58.5 % (test code = 770-8) IMM GRAN % (test code 0.50 % = 4150306581) LYMPH % (test code = 33.9 % 736-9) MONO % (test code = 5.1 % 5905-5) EOS % (test code = 1.2 % 713-8) BASO % (test code = 0.8 % 706-2) GRAN MAT x10^3(ANC) 6.69 10*3/uL 1.88-7.09 (test code = 9786388251) IMM GRAN x10^3 (test 0.06 10*3/uL 0.00-0.06 code = 1485924922) LYMPH x10^3 (test code 3.88 10*3/uL 1.32-3.29 H = 731-0) MONO x10^3 (test code 0.58 10*3/uL 0.33-0.92 = 742-7) EOS x10^3 (test code = 0.14 10*3/uL 0.03-0.39 711-2) BASO x10^3 (test code 0.09 10*3/uL 0.01-0.07 H = 704-7) Lab Interpretation Abnormal (test code = 12308-0) [facility] [id number] 22:39:00 Test Item Value Reference Range Interpretation Comments POCT PREG (test code = 1605) negative On board controls acceptable with present C Line (test code = 3574) POCT PREG LOT # (test code = 3575) [id number] POCT PREG TEST DATE (test 10/18/2022 code = 3576) Lab Interpretation (test code = Normal 79734-7) [facility]00 Test Item Value Reference Range Interpretation Comments TSH, THIRD GENERATION (test code 0.964 UIU/ML = 2821) [id number] 00:00:00 Test Item Value Reference Range Interpretation Comments TSH, THIRD GENERATION (test code 0.964 UIU/ML = 2821) [id number] 00:00:00 Test Item Value Reference Range Interpretation Comments PROLACTIN (test code = 2800) 13.5 NG/ML GC AND CHLAMYDIA, AMPLIFIED, [id number] 00:00:00 Test Item Value Reference Range Interpretation Comments GONORRHEA, NAAT (test code = 97203) NEGATIVE CHLAMYDIA, NAAT (test code = 10115) NEGATIVE HIV AB/AG COMBO RFLX [id number] 00:00:00 Test Item Value Reference Range Interpretation Comments HIV 1/2 4TH GEN, RFLX CONF (test NON-REACTIVE code = 3514) [id number] 00:00:00 Test Item Value Reference Range Interpretation Comments RPR RESULT (test code = NON-REACTIVE 3501) RPR TITER (test code = 3500) NOT INDIC. TITER [id number] 00:00:00 Test Item Value Reference Range Interpretation Comments RPR RESULT (test code = NON-REACTIVE 3501) RPR TITER (test code = 3500) NOT INDIC. TITER [id number] 00:00:00 Test Item Value Reference Range Interpretation Comments TSH, THIRD GENERATION (test code 0.964 UIU/ML = 2821) [id number] 00:00:00 Test Item Value Reference Range Interpretation Comments TSH, THIRD GENERATION (test code 0.964 UIU/ML = 2821) [id number] 00:00:00 Test Item Value Reference Range Interpretation Comments TSH, THIRD GENERATION (test code 0.964 UIU/ML = 2821) [id number] 00:00:00 Test Item Value Reference Range Interpretation Comments PROLACTIN (test code = 2800) 13.5 NG/ML [id number] 00:00:00 Test Item Value Reference Range Interpretation Comments PROLACTIN (test code = 2800) 13.5 NG/ML GC AND CHLAMYDIA, AMPLIFIED, [id number] 00:00:00 Test Item Value Reference Range Interpretation Comments GONORRHEA, NAAT (test code = 63342) NEGATIVE CHLAMYDIA, NAAT (test code = 10889) NEGATIVE GC AND CHLAMYDIA, AMPLIFIED, [id number] 00:00:00 Test Item Value Reference Range Interpretation Comments GONORRHEA, NAAT (test code = 62823) NEGATIVE CHLAMYDIA, NAAT (test code = 91397) NEGATIVE HIV AB/AG COMBO RFLX [id number] 00:00:00 Test Item Value Reference Range Interpretation Comments HIV 1/2 4TH GEN, RFLX CONF (test NON-REACTIVE code = 3514) HIV AB/AG COMBO RFLX [id number] 00:00:00 Test Item Value Reference Range Interpretation Comments HIV 1/2 4TH GEN, RFLX CONF (test NON-REACTIVE code = 3514) [id number] 00:00:00 Test Item Value Reference Range Interpretation Comments RPR RESULT (test code = NON-REACTIVE 3501) RPR TITER (test code = 3500) NOT INDIC. TITER [id number] 00:00:00 Test Item Value Reference Range Interpretation Comments RPR RESULT (test code = NON-REACTIVE 3501) RPR TITER (test code = 3500) NOT INDIC. TITER [id number] 00:00:00 Test Item Value Reference Range Interpretation Comments RPR RESULT (test code = NON-REACTIVE 3501) RPR TITER (test code = 3500) NOT INDIC. TITER [id number] 00:00:00 Test Item Value Reference Range Interpretation Comments TSH, THIRD GENERATION (test code 0.964 UIU/ML = 2821) [id number] 00:00:00 Test Item Value Reference Range Interpretation Comments TSH, THIRD GENERATION (test code 0.964 UIU/ML = 2821) [id number] 00:00:00 Test Item Value Reference Range Interpretation Comments TSH, THIRD GENERATION (test code 0.964 UIU/ML = 2821) [id number] 00:00:00 Test Item Value Reference Range Interpretation Comments PROLACTIN (test code = 2800) 13.5 NG/ML [id number] 00:00:00 Test Item Value Reference Range Interpretation Comments PROLACTIN (test code = 2800) 13.5 NG/ML GC AND CHLAMYDIA, AMPLIFIED, [id number] 00:00:00 Test Item Value Reference Range Interpretation Comments GONORRHEA, NAAT (test code = 20672) NEGATIVE CHLAMYDIA, NAAT (test code = 14586) NEGATIVE GC AND CHLAMYDIA, AMPLIFIED, [id number] 00:00:00 Test Item Value Reference Range Interpretation Comments GONORRHEA, NAAT (test code = 24786) NEGATIVE CHLAMYDIA, NAAT (test code = 40804) NEGATIVE HIV AB/AG COMBO RFLX [id number] 00:00:00 Test Item Value Reference Range Interpretation Comments HIV 1/2 4TH GEN, RFLX CONF (test NON-REACTIVE code = 3514) HIV AB/AG COMBO RFLX [id number] 00:00:00 Test Item Value Reference Range Interpretation Comments HIV 1/2 4TH GEN, RFLX CONF (test NON-REACTIVE code = 3514) [id number] 00:00:00 Test Item Value Reference Range Interpretation Comments RPR RESULT (test code = NON-REACTIVE 3501) RPR TITER (test code = 3500) NOT INDIC. TITER [id number] 00:00:00 Test Item Value Reference Range Interpretation Comments RPR RESULT (test code = NON-REACTIVE 3501) RPR TITER (test code = 3500) NOT INDIC. TITER [id number] 00:00:00 Test Item Value Reference Range Interpretation Comments RPR RESULT (test code = NON-REACTIVE 3501) RPR TITER (test code = 3500) NOT INDIC. TITER GC AND CHLAMYDIA AMPLIFIED, [id number] 00:00:00 Test Item Value Reference Range Interpretation Comments GONORRHEA, TMA (test code = 09398) NEGATIVE CHLAMYDIA, TMA (test code = 52029) NEGATIVE PAP TEST, THINPREP, [id number] 00:00:00 Test Item Value Reference Range Interpretation Comments SOURCE: (test code = Endocervical 8001) SLIDES: (test code = 1 8011) LMP: (test code = 04/21/2021 8021) SPECIMEN ADEQUACY: (NOTE) (test code = 70330) INTERPRETATION: (test NILM/NO EPITH. code = 27846) ABNORMALITY;SEE BELOW OTHER COMMENTS: (test (NOTE) code = 8081) [employer] SPRINKL[employer] SERVICE TECHNICIAN: BETTY (test code = 8101) COBY CRAIG(ASCP)IAC LOCATION: (test code (NOTE) = 73901) CPT: (test code = (NOTE) 8140) HPV HIGH RISK WITH GENOTYPE, [id number] 00:00:00 Test Item Value Reference Range Interpretation Comments HPV HIGH RISK INTERP (test code = NEGATIVE 11525) HPV 16 (test code = 01570) NEGATIVE HPV 18 (test code = 89986) NEGATIVE HPV, HR, OTHER GENOTYPES (test code NEGATIVE = 31195) GC AND CHLAMYDIA AMPLIFIED, [id number] 00:00:00 Test Item Value Reference Range Interpretation Comments GONORRHEA, TMA (test code = 84158) NEGATIVE CHLAMYDIA, TMA (test code = 93420) NEGATIVE GC AND CHLAMYDIA AMPLIFIED, [id number] 00:00:00 Test Item Value Reference Range Interpretation Comments GONORRHEA, TMA (test code = 00676) NEGATIVE CHLAMYDIA, TMA (test code = 23806) NEGATIVE PAP TEST, THINPREP, [id number] 00:00:00 Test Item Value Reference Range Interpretation Comments SOURCE: (test code = Endocervical 8001) SLIDES: (test code = 1 8011) LMP: (test code = 04/21/2021 8021) SPECIMEN ADEQUACY: (NOTE) (test code = 57009) INTERPRETATION: (test NILM/NO EPITH. code = 25817) ABNORMALITY;SEE BELOW OTHER COMMENTS: (test (NOTE) code = 8081) [employer] SPRINKL[employer] SERVICE TECHNICIAN: BETTY (test code = 8101) COBY CRAIG(ASCP)IAC LOCATION: (test code (NOTE) = 16455) CPT: (test code = (NOTE) 8140) PAP TEST, THINPREP, [id number] 00:00:00 Test Item Value Reference Range Interpretation Comments SOURCE: (test code = Endocervical 8001) SLIDES: (test code = 1 8011) LMP: (test code = 04/21/2021 8021) SPECIMEN ADEQUACY: (NOTE) (test code = 08833) INTERPRETATION: (test NILM/NO EPITH. code = 70694) ABNORMALITY;SEE BELOW OTHER COMMENTS: (test (NOTE) code = 8081) FI[employer] SPRINKLER SERVICE TECHNICIAN: BETTY (test code = 8101) COBY CRAIG(ASCP)IAC LOCATION: (test code (NOTE) = 14250) CPT: (test code = (NOTE) 8140) HPV HIGH RISK WITH GENOTYPE, [id number] 00:00:00 Test Item Value Reference Range Interpretation Comments HPV HIGH RISK INTERP (test code = NEGATIVE 14846) HPV 16 (test code = 14778) NEGATIVE HPV 18 (test code = 39140) NEGATIVE HPV, HR, OTHER GENOTYPES (test code NEGATIVE = 57966) HPV HIGH RISK WITH GENOTYPE, [id number] 00:00:00 Test Item Value Reference Range Interpretation Comments HPV HIGH RISK INTERP (test code = NEGATIVE 80632) HPV 16 (test code = 58012) NEGATIVE HPV 18 (test code = 01597) NEGATIVE HPV, HR, OTHER GENOTYPES (test code NEGATIVE = 89311) GC AND CHLAMYDIA AMPLIFIED, [id number] 00:00:00 Test Item Value Reference Range Interpretation Comments GONORRHEA, TMA (test code = 79225) NEGATIVE CHLAMYDIA, TMA (test code = 99517) NEGATIVE GC AND CHLAMYDIA AMPLIFIED, [id number] 00:00:00 Test Item Value Reference Range Interpretation Comments GONORRHEA, TMA (test code = 61020) NEGATIVE CHLAMYDIA, TMA (test code = 90983) NEGATIVE PAP TEST, THINPREP, [id number] 00:00:00 Test Item Value Reference Range Interpretation Comments SOURCE: (test code = Endocervical 800) SLIDES: (test code = 1 8011) LMP: (test code = 04/21/2021 8021) SPECIMEN ADEQUACY: (NOTE) (test code = 99954) INTERPRETATION: (test NILM/NO EPITH. code = 33701) ABNORMALITY;SEE BELOW OTHER COMMENTS: (test (NOTE) code = 8081) FIRE SPRINKLER SERVICE TECHNICIAN: BETTY (test code = 8101) COBY CRAIG(ASCP)IAC LOCATION: (test code (NOTE) = 40443) CPT: (test code = (NOTE) 8140) PAP TEST, THINPREP, [id number] 00:00:00 Test Item Value Reference Range Interpretation Comments SOURCE: (test code = Endocervical 8001) SLIDES: (test code = 1 8011) LMP: (test code = 04/21/2021 8021) SPECIMEN ADEQUACY: (NOTE) (test code = 93946) INTERPRETATION: (test NILM/NO EPITH. code = 94352) ABNORMALITY;SEE BELOW OTHER COMMENTS: (test (NOTE) code = 8081) FIRE SPRINKLER SERVICE TECHNICIAN: BETTY (test code = 8101) COBY CRAIG(ASCP)IAC LOCATION: (test code (NOTE) = 56039) CPT: (test code = (NOTE) 8140) HPV HIGH RISK WITH GENOTYPE, [id number] 00:00:00 Test Item Value Reference Range Interpretation Comments HPV HIGH RISK INTERP (test code = NEGATIVE 04188) HPV 16 (test code = 33418) NEGATIVE HPV 18 (test code = 05060) NEGATIVE HPV, HR, OTHER GENOTYPES (test code NEGATIVE = 62254) HPV HIGH RISK WITH GENOTYPE, [id number] 00:00:00 Test Item Value Reference Range Interpretation Comments HPV HIGH RISK INTERP (test code = NEGATIVE 65975) HPV 16 (test code = 77445) NEGATIVE HPV 18 (test code = 81879) NEGATIVE HPV, HR, OTHER GENOTYPES (test code NEGATIVE = 88912) VAGINAL PATHOGENS DNA [id number] 00:00:00 Test Item Value Reference Range Interpretation Comments DEMIAN SPECIES (test code = 71040) NEGATIVE G. VAGINALIS (test code = 67937) POSITIVE T. VAGINALIS (test code = 58394) NEGATIVE VAGINAL PATHOGENS DNA [id number] 00:00:00 Test Item Value Reference Range Interpretation Comments DEMIAN SPECIES (test code = 39540) NEGATIVE G. VAGINALIS (test code = 62329) POSITIVE T. VAGINALIS (test code = 03440) NEGATIVE VAGINAL PATHOGENS DNA [id number] 00:00:00 Test Item Value Reference Range Interpretation Comments DEMIAN SPECIES (test code = 64593) NEGATIVE G. VAGINALIS (test code = 83723) POSITIVE T. VAGINALIS (test code = 25847) NEGATIVE VAGINAL PATHOGENS DNA [id number] 00:00:00 Test Item Value Reference Range Interpretation Comments DEMIAN SPECIES (test code = 84863) NEGATIVE G. VAGINALIS (test code = 37730) POSITIVE T. VAGINALIS (test code = 06066) NEGATIVE VAGINAL PATHOGENS DNA [id number] 00:00:00 Test Item Value Reference Range Interpretation Comments DEMIAN SPECIES (test code = 31989) NEGATIVE G. VAGINALIS (test code = 84970) POSITIVE T. VAGINALIS (test code = 14284) NEGATIVE FREE [id number] 22:21:43 Test Item Value Reference Range Interpretation Comments FREE T4 (test code = See_Comment [Autom ated message] [id number]) The system [employer] generated this result transmitted ref erence range: 0.78 - 2 .20 ng/dL:. The ref erence range was not u sed to interpret this result as normal/abnor mal. Lab Interpretation (test Normal code = 12027-0) [facility] [id number] 22:21:43 Test Item Value Reference Range Interpretation Comments FREE T4 (test code = See_Comment [Autom ated message] 6092216494) The system [employer] generated this result transmitted ref erence range: 0.78 - 2 .20 ng/dL:. The ref erence range was not u sed to interpret this result as normal/abnor mal. Lab Interpretation (test Normal code = 23340-6) [facility] [id number] 21:24:56 Test Item Value Reference Interpretation Comments Range TROPONIN I (test <0.012 See_Comment [Automated code = 0024607648) message] The system which generated this result [...] biotin. Lab Interpretation Normal (test code = 16945-0) [facility] [id number] 21:24:56 Test Item Value Reference Interpretation Comments Range TROPONIN I (test <0.012 See_Comment [Automated code = 4181040968) message] The system which generated this result [...] biotin. Lab Interpretation Normal (test code = 48567-4) [facility] Test Item Value Reference Range Interpretation Comments MAGNESIUM (test code = 1368686902) 1.7 mg/dL 1.7-2.4 Lab Interpretation (test code = Normal 31697-5) [facility] 21:14:38 Test Item Value Reference Range Interpretation Comments MAGNESIUM (test code = 7817813220) 1.7 mg/dL 1.7-2.4 Lab Interpretation (test code = Normal 85663-9) [facility] (69485)2021-04-26 21:14:18 Test Item Value Reference Range Interpretation Comments NA (test code = 139 mmol/L 135-145 7745766702) K (test code = 4.1 mmol/L 3.5-5.0 7651331418) CL (test code = 110 mmol/L 98-108 H 8794741334) CO2 TOTAL (test code = 25 mmol/L 23-31 7380228594) AGAP (test code = 2-16 6668138248) BUN (test code = 6 mg/dL 7-23 L 2082945742) GLUCOSE (test code = 96 mg/dL 70-110 0179699067) CREATININE (test code = 0.50 mg/dL 0.50-1.04 4164570876) TOTAL BILI (test code = 0.2 mg/dL 0.1-1.0 9993691072) CALCIUM (test code = 8.8 mg/dL 8.6-10.6 4012922455) T PROTEIN (test code = 6.9 g/dL 6.3-8.2 3610133560) ALBUMIN (test code = 4.0 g/dL 3.5-5.0 5490065859) ALK PHOS (test code = 73 U/L 34-122 3812174894) ALTv (test code = 15 U/L 5-35 1742-6) AST(SGOT) (test code = 20 U/L 13-40 7273545813) eGFR (test code = mL/min/1.73m2 8184333430) DIEGO (test code = DIEGO) Association of [...] tests). Lab Interpretation Abnormal (test code = 55923-3) [facility]. METABOLIC PANEL (87562)2021-04-26 21:14:18 Test Item Value Reference Range Interpretation Comments NA (test code = 139 mmol/L 135-145 2939435876) K (test code = 4.1 mmol/L 3.5-5.0 4631721982) CL (test code = 110 mmol/L 98-108 H 4997515853) CO2 TOTAL (test code = 25 mmol/L 23-31 8814585883) AGAP (test code = 2-16 5422704216) BUN (test code = 6 mg/dL 7-23 L 8252148137) GLUCOSE (test code = 96 mg/dL 70-110 8886170455) CREATININE (test code = 0.50 mg/dL 0.50-1.04 0112034753) TOTAL BILI (test code = 0.2 mg/dL 0.1-1.8 8415666409) CALCIUM (test code = 8.8 mg/dL 8.6-10.6 0937588738) T PROTEIN (test code = 6.9 g/dL 6.3-8.2 2982748945) ALBUMIN (test code = 4.0 g/dL 3.5-5.0 5696907222) ALK PHOS (test code = 73 U/L 34-122 2298568457) ALTv (test code = 15 U/L 5-35 1742-6) AST(SGOT) (test code = 20 U/L 13-40 4403116566) eGFR (test code = mL/min/1.73m2 0458789049) DIEGO (test code = DIEGO) Association of [...] tests). Lab Interpretation Abnormal (test code = 87164-1) [facility] [id number] 21:14:17 Test Item Value Reference Range Interpretation Comments CK (test code = 7406989330) 35 U/L 33-194 Lab Interpretation (test code = Normal 13704-4) [facility] [id number] 21:14:17 Test Item Value Reference Range Interpretation Comments CK (test code = 2091116026) 35 U/L 33-194 Lab Interpretation (test code = Normal 34561-0) [facility] - COMPREHENSIVE DRUG SCREEN W/O [id number] 20:20:42 Test Item Value Reference Range Interpretation Comments AMPHET (test code = Negative Negative 8455090386) NASEEM U (test code = Negative Negative 2423353040) BENZO U (test code = Negative Negative 7211864571) Cocaine Metabolite (test Negative Negative code = 8353579943) METHADONE (test code = Negative Negative 9922383986) OPIATES (test code = Negative Negative 1867051899) PCP (test code = Negative Negative 4651989944) THC (test code = Presumptive Positive Negative A 9622799981) DIEGO (test code = DIEGO) Urine Drug [...] testing). Lab Interpretation (test Abnormal code = 81690-9) [facility] - COMPREHENSIVE DRUG SCREEN W/O [id number] 20:20:42 Test Item Value Reference Range Interpretation Comments AMPHET (test code = Negative Negative 9157981117) NASEEM U (test code = Negative Negative 1800216466) BENZO U (test code = Negative Negative 3992491254) Cocaine Metabolite (test Negative Negative code = 4606346503) METHADONE (test code = Negative Negative 4642323794) OPIATES (test code = Negative Negative 8187517955) PCP (test code = Negative Negative 2649140191) THC (test code = Presumptive Positive Negative A 8033238515) DIEGO (test code = DIEGO) Urine Drug [...] testing). Lab Interpretation (test Abnormal code = 72484-0) [facility] [id number] 20:17:29 Test Item Value Reference Range Interpretation Comments ESR (test code = See_Comment [Automated message] 5313387143) The system [employer] generated this result transmitted ref erence range: 0 - 20 m m/HR. The reference r dinora was not used to interpret this result as normal/abnor mal. Lab Interpretation (test Normal code = 32959-1) [facility] [id number] 20:17:29 Test Item Value Reference Range Interpretation Comments ESR (test code = See_Comment [Automated message] 4511507219) The system [employer] generated this result transmitted ref erence range: 0 - 20 m m/HR. The reference r dinora was not used to interpret this result as normal/abnor mal. Lab Interpretation (test Normal code = 74771-8) [facility] [id number] 20:14:11 Test Item Value Reference Range Interpretation Comments TSH (test code = See_Comment [Automated message] 7509080403) The system [employer] generated this result transmitted ref erence range: 0.45 - 4 .70 mIU/L. The refe rence range was not u sed to interpret this result as normal/abnor mal. Lab Interpretation (test Normal code = 01062-1) [facility] [id number] 20:14:11 Test Item Value Reference Range Interpretation Comments TSH (test code = See_Comment [Automated message] 5801056817) The system [employer] generated this result transmitted ref erence range: 0.45 - 4 .70 mIU/L. The refe rence range was not u sed to interpret this result as normal/abnor mal. Lab Interpretation (test Normal code = 95803-9) [facility] [id number] 20:03:34 Test Item Value Reference Range Interpretation Comments NT-proBNP (test code 42 pg/mL See_Comment [Autom ated = 8299890108) message] The system which generated this result transmitted reference range : <=125. The reference range was not used to interpret this result as normal/abnormal . DIEGO (test code = DIEGO) Biotin has been reported to cause a negative bias, interpret results relative to patient's use of biotin. Lab Interpretation Normal (test code = 58510-2) [facility] [id number] 20:03:34 Test Item Value Reference Range Interpretation Comments NT-proBNP (test code 42 pg/mL See_Comment [Autom ated = 7313946282) message] The system which generated this result transmitted reference range : <=125. The reference range was not used to interpret this result as normal/abnormal . DIEGO (test code = DIEGO) Biotin has been reported to cause a negative bias, interpret results relative to patient's use of biotin. Lab Interpretation Normal (test code = 07723-0) [facility] WITH [id number] 19:45:17 Test Item Value Reference Range Interpretation [...] RDW-SD (test code = 43.4 fL 39.0-49.9 08366-0) RDW-CV (test code = 12.5 % 12.0-15.5 788-0) PLT (test code = See_Comment H [Automated 777-3) message] The sy stem which generated this result transmitted reference range : 166 - 358 10*3/ ?L. The reference r dinora was not used to interpret this result as normal/abnormal . MPV (test code = 10.1 fL 9.5-12.9 82653-9) NRBC/100 WBC (test See_Comment [Automat ed code = 7984397700) message] The system which generated this result transmitted reference range : 0.0 - 10.0 /100 WBCs. The refer ence range was not u sed to interpret th is result as normal/abnormal . NRBC x10^3 (test code <0.01 See_Comment [Auto mated = 7136327586) message] The s ystem which generated this result transmitted reference range : 10*3/?L. The reference range was not used to interpret this result as normal/abnormal . GRAN MAT (NEUT) % 60.0 % (test code = 770-8) IMM GRAN % (test code 0.80 % = 0740191250) LYMPH % (test code = 31.1 % 736-9) MONO % (test code = 5.5 % 5905-5) EOS % (test code = 2.0 % 713-8) BASO % (test code = 0.6 % 706-2) GRAN MAT x10^3(ANC) 7.94 10*3/uL 1.88-7.09 H (test code = 1258322440) IMM GRAN x10^3 (test 0.11 10*3/uL 0.00-0.06 H code = 6913510286) LYMPH x10^3 (test code 4.13 10*3/uL 1.32-3.29 H = 731-0) MONO x10^3 (test code 0.73 10*3/uL 0.33-0.92 = 742-7) EOS x10^3 (test code = 0.27 10*3/uL 0.03-0.39 711-2) BASO x10^3 (test code 0.08 10*3/uL 0.01-0.07 H = 704-7) Lab Interpretation Abnormal (test code = 44264-7) [facility] WITH [id number] 19:45:17 Test Item Value Reference Range Interpretation Comments WBC (test code = See_Comment H [Automated 5890-2) message] The sy stem which generated this result transmitted reference range : 4.30 - 11.10 10*3/?L. The reference range was not used to interpret this result as normal/abnormal . RBC (test code = See_Comment [Automated 299-8) message] The sy stem which generated this [...] RDW-SD (test code = 43.4 fL 39.0-49.9 44702-2) RDW-CV (test code = 12.5 % 12.0-15.5 788-0) PLT (test code = See_Comment H [Automated 777-3) message] The sy stem which generated this result transmitted reference range : 166 - 358 10*3/ ?L. The reference r dinora was not used to interpret this result as normal/abnormal . MPV (test code = 10.1 fL 9.5-12.9 81614-8) NRBC/100 WBC (test See_Comment [Automat ed code = 6598157814) message] The system which generated this result transmitted reference range : 0.0 - 10.0 /100 WBCs. The refer ence range was not u sed to interpret th is result as normal/abnormal . NRBC x10^3 (test code <0.01 See_Comment [Auto mated = 8373820739) message] The s ystem which generated this result transmitted reference range : 10*3/?L. The reference range was not used to interpret this result as normal/abnormal . GRAN MAT (NEUT) % 60.0 % (test code = 770-8) IMM GRAN % (test code 0.80 % = 4807430518) LYMPH % (test code = 31.1 % 736-9) MONO % (test code = 5.5 % 5905-5) EOS % (test code = 2.0 % 713-8) BASO % (test code = 0.6 % 706-2) GRAN MAT x10^3(ANC) 7.94 10*3/uL 1.88-7.09 H (test code = 2243179094) IMM GRAN x10^3 (test 0.11 10*3/uL 0.00-0.06 H code = 0973473789) LYMPH x10^3 (test code 4.13 10*3/uL 1.32-3.29 H = 731-0) MONO x10^3 (test code 0.73 10*3/uL 0.33-0.92 = 742-7) EOS x10^3 (test code = 0.27 10*3/uL 0.03-0.39 711-2) NISSAO x10^3 (test code 0.08 10*3/uL 0.01-0.07 H = 704-7) Lab Interpretation Abnormal (test code = 04670-5) [facility]2021-[facility]-26 19:33:11 Test Item Value Reference Range Interpretation Comments SARS-CoV-2 Rapid ID NOW Not Detected Not Detected (test code = 92249-9) DIEGO (test code = DIEGO) ID NOW COVID-19 Assay is an isothermal nucleic acid amplification test intended for the qualitative detection of nucleic acid from SARS-CoV-2 viral RNA in nasopharyngeal ([employer]) specimens. It is used under Emergency [...] indicated. Lab Interpretation Normal (test code = 27783-2) [facility]2021-04-26 19:33:11 Test Item Value Reference Range Interpretation Comments SARS-CoV-2 Rapid ID NOW Not Detected Not Detected (test code = 76817-8) DIEGO (test code = DIEGO) ID NOW COVID-19 Assay is an isothermal nucleic acid amplification test intended for the qualitative detection of nucleic acid from SARS-CoV-2 viral RNA in nasopharyngeal ([employer]) specimens. It is used under Emergency [...] indicated. Lab Interpretation Normal (test code = 91976-3) [facility] [id number] 19:30:19 1. ?No acute intracranial abnormality. ? [...] reviewed this study and agree with the abovereport.[facility] SP[facility] [id number] 19:30:19 1. ?No acute intracranial abnormality. ? [...] reviewed this study and agree with the abovereport.[facility] [id number] 19:30:19 1. ?No acute intracranial abnormality. ? [...] alignment. The intervertebral disc spaces are preserved. [facility], Radiant Results Inft User - 04/26/2021 [...] reviewed this study and agree with the abovereport.[facility] CONTRAST 2021-04-26 19:30:19 [...] reviewed this study and agree with the abovereport.[facility] 19:29:14 Test Item Value Reference Range Interpretation Comments APPEARANCE (test code = Clear Clear 1699201721) COLOR (test code = Yellow Yellow 4718938409) PH (test code = 4.8-8.0 4953554307) SP GRAVITY (test code = 1.003-1.030 5942064039) GLU U QUAL (test code = Normal Normal 0984918776) BLOOD (test code = Negative Negative 0247741026) KETONES (test code = Negative Negative 0315413734) PROTEIN (test code = Negative Negative 2887-8) UROBILIN (test code = Normal Normal 3762468615) BILIRUBIN (test code = Negative Negative 7102453313) NITRITE (test code = Negative Negative 9352483923) LEUK DAKSHA (test code = Negative Negative 4546274183) RBC/HPF (test code = See_Comment [Autom ated message] 3463054946) The system [employer] generated this result transmitted ref erence range: 0 - 3 HP F. The reference range was not used to int erpret this result as normal/abnormal . WBC/HPF (test code = See_Comment [Autom ated message] 2903739588) The system [employer] generated this result transmitted ref erence range: 0 - 5 HP F. The reference range was not used to int erpret this result as normal/abnormal . BACTERIA (test code = Few Negative A 4619196904) SQ EPITH (test code = HPF 5604317122) Lab Interpretation (test Abnormal code = 61547-9) [facility] 19:29:14 Test Item Value Reference Range Interpretation Comments APPEARANCE (test code = Clear Clear 0468860095) COLOR (test code = Yellow Yellow 8075654299) PH (test code = 4.8-8.0 2410442312) SP GRAVITY (test code = 1.003-1.030 6483472761) GLU U QUAL (test code = Normal Normal 3448058406) BLOOD (test code = Negative Negative 8069724135) KETONES (test code = Negative Negative 8631301888) PROTEIN (test code = Negative Negative 2887-8) UROBILIN (test code = Normal Normal 5806220791) BILIRUBIN (test code = Negative Negative 1495632542) NITRITE (test code = Negative Negative 9474141149) LEUK DAKSHA (test code = Negative Negative 4943784250) RBC/HPF (test code = See_Comment [Autom ated message] 5835185513) The system [employer] generated this result transmitted ref erence range: 0 - 3 HP F. The reference range was not used to int erpret this result as normal/abnormal . WBC/HPF (test code = See_Comment [Autom ated message] 0388390207) The system [employer] generated this result transmitted ref erence range: 0 - 5 HP F. The reference range was not used to int erpret this result as normal/abnormal . BACTERIA (test code = Few Negative A 6577602840) SQ EPITH (test code = HPF 8772660083) Lab Interpretation (test Abnormal code = 60757-8) [facility] [id number] 18:24:00 Test Item Value Reference Range Interpretation Comments POCT PREG (test code = 1605) negative On board controls acceptable with present C Line (test code = 3574) POCT PREG LOT # (test code = 3575) [id number] POCT PREG TEST DATE (test 08/20/2022 code = 3576) Lab Interpretation (test code = Normal 34031-8) [facility] [id number] 18:24:00 Test Item Value Reference Range Interpretation Comments POCT PREG (test code = 1605) negative On board controls acceptable with present C Line (test code = 3574) POCT PREG LOT # (test code = 3575) [id number] POCT PREG TEST DATE (test 08/20/2022 code = 3576) Lab Interpretation (test code = Normal 10356-2) [facility]21[facility] 00:35:10 Test Item Value Reference Range Interpretation Comments APPEARANCE (test code = Clear Clear 2512820738) COLOR (test code = Yellow Yellow 3878466572) PH (test code = 4.8-8.0 3993888597) SP GRAVITY (test code = 1.003-1.030 4999531362) GLU U QUAL (test code = Normal Normal 7636625803) BLOOD (test code = 1+ Negative A 7351554131) KETONES (test code = Negative Negative 7654629419) PROTEIN (test code = Negative Negative 2887-8) UROBILIN (test code = Normal Normal 2864128328) BILIRUBIN (test code = Negative Negative 3183380612) NITRITE (test code = Negative Negative 3682795947) LEUK DAKSHA (test code = 75/uL Negative A 7012650821) RBC/HPF (test code = See_Comment H [Autom ated message] 8712711820) The system [employer] generated this result transmitted ref erence range: 0 - 3 HP F. The reference range was not used to int erpret this result as normal/abnormal . WBC/HPF (test code = See_Comment H [Autom ated message] 9145449406) The system [employer] generated this result transmitted ref erence range: 0 - 5 HP F. The reference range was not used to int erpret this result as normal/abnormal . BACTERIA (test code = Few Negative A 5278639845) SQ EPITH (test code = HPF 9065543035) Lab Interpretation (test Abnormal code = 67056-4) [facility] [id number] 00:20:00 Test Item Value Reference Range Interpretation Comments POCT PREG (test code = 1605) negative On board controls acceptable with present C Line (test code = 3574) POCT PREG LOT # (test code = 3575) [id number] POCT PREG TEST DATE (test code = 3576) Lab Interpretation (test code = Normal 84475-4) [facility]HEMO[facility] [id number] 00:00:00 Test Item Value Reference Range Interpretation Comments HEMOGLOBIN A1c (test code = 52282) 5.3 % HEMOGLOBIN [id number] 00:00:00 Test Item Value Reference Range Interpretation Comments HEMOGLOBIN A1c (test code = 84793) 5.3 % LIPID [id number] 00:00:00 Test Item Value Reference Range Interpretation Comments CHOLESTEROL (test code = 2210) 205 MG/DL TRIGLYCERIDES (test code = 2232) 66 MG/DL HDL CHOLESTEROL (test code = 2220) 46 MG/DL CALC LDL CHOL (test code = 2237) 143 MG/DL RISK RATIO LDL/HDL (test code = 3.11 RATIO 2238) COMPREHENSIVE METABOLIC [id number] 00:00:00 Test Item Value Reference Range Interpretation Comments GLUCOSE (test code = 2217) 83 MG/DL BUN (test code = 2208) 6 MG/DL CREATININE (test code = 2214) 0.69 MG/DL eGFR AMER. (test code 131 ML/MIN/1.73 = 47878) eGFR NON- AMER. (test 113 ML/MIN/1.73 code = 02501) CALC BUN/CREAT (test code = 9 RATIO [...] (test code = 2219) 18 U/L HEMOGLOBIN [id number] 00:00:00 Test Item Value Reference Range Interpretation Comments HEMOGLOBIN A1c (test code = 31332) 5.3 % HEMOGLOBIN [id number] 00:00:00 Test Item Value Reference Range Interpretation Comments HEMOGLOBIN A1c (test code = 95043) 5.3 % HEMOGLOBIN [id number] 00:00:00 Test Item Value Reference Range Interpretation Comments HEMOGLOBIN A1c (test code = 48463) 5.3 % LIPID [id number] 00:00:00 Test Item Value Reference Range Interpretation Comments CHOLESTEROL (test code = 2210) 205 MG/DL TRIGLYCERIDES (test code = 2232) 66 MG/DL HDL CHOLESTEROL (test code = 2220) 46 MG/DL CALC LDL CHOL (test code = 2237) 143 MG/DL RISK RATIO LDL/HDL (test code = 3.11 RATIO 2238) LIPID [id number] 00:00:00 Test Item Value Reference Range Interpretation Comments CHOLESTEROL (test code = 2210) 205 MG/DL TRIGLYCERIDES (test code = 2232) 66 MG/DL HDL CHOLESTEROL (test code = 2220) 46 MG/DL CALC LDL CHOL (test code = 2237) 143 MG/DL RISK RATIO LDL/HDL (test code = 3.11 RATIO 2238) COMPREHENSIVE METABOLIC [id number] 00:00:00 Test Item Value Reference Range Interpretation Comments GLUCOSE (test code = 2217) 83 MG/DL BUN (test code = 2208) 6 MG/DL CREATININE (test code = 2214) 0.69 MG/DL eGFR AMER. (test code 131 ML/MIN/1.73 = 21255) eGFR NON- AMER. (test 113 ML/MIN/1.73 code = 67034) CALC BUN/CREAT (test code = 9 RATIO 2235) SODIUM (test code = 2231) 137 MEQ/L POTASSIUM (test code = 2228) 4.5 MEQ/L CHLORIDE (test code = 2215) 104 MEQ/L CARBON DIOXIDE (test code = 24 MEQ/L 2206) CALCIUM (test code = 2209) 9.9 MG/DL PROTEIN, TOTAL (test code = 7.2 G/DL 222) ALBUMIN (test code = 2201) 4.8 G/DL CALC GLOBULIN (test code = 2.4 G/DL 2240) CALC A/G RATIO (test code = 2.0 RATIO 2234) BILIRUBIN, TOTAL (test code = 0.2 MG/DL 2207) ALKALINE PHOSPHATASE (test 75 U/L code = 2204) AST (test code = 2218) 19 U/L ALT (test code = 2219) 18 U/L COMPREHENSIVE METABOLIC [id number] 00:00:00 Test Item Value Reference Range Interpretation Comments GLUCOSE (test code = 2217) 83 MG/DL BUN (test code = 2208) 6 MG/DL CREATININE (test code = 2214) 0.69 MG/DL eGFR AMER. (test code 131 ML/MIN/1.73 = 92344) eGFR NON- AMER. (test 113 ML/MIN/1.73 code = 37226) CALC BUN/CREAT (test code = 9 RATIO [...] BILIRUBIN, TOTAL (test code = 0.2 MG/DL 7) ALKALINE PHOSPHATASE (test 75 U/L code = 2204) AST (test code = 2218) 19 U/L ALT (test code = 2219) 18 U/L HEMOGLOBIN [id number] 00:00:00 Test Item Value Reference Range Interpretation Comments HEMOGLOBIN A1c (test code = 30269) 5.3 % HEMOGLOBIN [id number] 00:00:00 Test Item Value Reference Range Interpretation Comments HEMOGLOBIN A1c (test code = 67237) 5.3 % HEMOGLOBIN [id number] 00:00:00 Test Item Value Reference Range Interpretation Comments HEMOGLOBIN A1c (test code = 36770) 5.3 % LIPID [id number] 00:00:00 Test Item Value Reference Range Interpretation Comments CHOLESTEROL (test code = 2210) 205 MG/DL TRIGLYCERIDES (test code = 2232) 66 MG/DL HDL CHOLESTEROL (test code = 2220) 46 MG/DL CALC LDL CHOL (test code = 2237) 143 MG/DL RISK RATIO LDL/HDL (test code = 3.11 RATIO 2238) LIPID [id number] 00:00:00 Test Item Value Reference Range Interpretation Comments CHOLESTEROL (test code = 2210) 205 MG/DL TRIGLYCERIDES (test code = 2232) 66 MG/DL HDL CHOLESTEROL (test code = 2220) 46 MG/DL CALC LDL CHOL (test code = 2237) 143 MG/DL RISK RATIO LDL/HDL (test code = 3.11 RATIO 2238) COMPREHENSIVE METABOLIC [id number] 00:00:00 Test Item Value Reference Range Interpretation Comments GLUCOSE (test code = 2217) 83 MG/DL BUN (test code = 2208) 6 MG/DL CREATININE (test code = 2214) 0.69 MG/DL eGFR AMER. (test code 131 ML/MIN/1.73 = 00784) eGFR NON- AMER. (test 113 ML/MIN/1.73 code = 04268) CALC BUN/CREAT (test code = 9 RATIO [...] code = 2219) 18 U/L COMPREHENSIVE METABOLIC [id number] 00:00:00 Test Item Value Reference Range Interpretation Comments GLUCOSE (test code = 2217) 83 MG/DL BUN (test code = 2208) 6 MG/DL CREATININE (test code = 2214) 0.69 MG/DL eGFR AMER. (test code 131 ML/MIN/1.73 = 25281) eGFR NON- AMER. (test 113 ML/MIN/1.73 code = 36373) CALC BUN/CREAT (test code = 9 RATIO [...] (test code = 2219) 18 U/L CULTURE, [id number] 00:00:00 Test Item Value Reference Range Interpretation Comments CULTURE, ROUTINE (test SPECIMEN NUMBER: code = 62069) [id number] CULTURE, [id number] 00:00:00 Test Item Value Reference Range Interpretation Comments CULTURE, ROUTINE (test SPECIMEN NUMBER: code = 77845) [id number] CULTURE, [id number] 00:00:00 Test Item Value Reference Range Interpretation Comments CULTURE, ROUTINE (test SPECIMEN NUMBER: code = 48677) [id number] CULTURE, [id number] 00:00:00 Test Item Value Reference Range Interpretation Comments CULTURE, ROUTINE (test SPECIMEN NUMBER: code = 38658) [id number] CULTURE, [id number] 00:00:00 Test Item Value Reference Range Interpretation Comments CULTURE, ROUTINE (test SPECIMEN NUMBER: code = 24425) [id number] CULTURE, [id number] 00:00:00 Test Item Value Reference Range Interpretation Comments CULTURE, ROUTINE (test SPECIMEN NUMBER: code = 09135) [id number] CULTURE, [id number] 00:00:00 Test Item Value Reference Range Interpretation Comments CULTURE, ROUTINE (test SPECIMEN NUMBER: code = 22252) [id number] CULTURE, [id number] 00:00:00 Test Item Value Reference Range Interpretation Comments CULTURE, ROUTINE (test SPECIMEN NUMBER: code = 00281) [id number] RAPID STREP SCREEN FOR GROUP [id number] 17:29:00 Test Item Value Reference Range Interpretation Comments Streptococcus pyogenes (group A) Negative Negative antigen (test code = 47977-5) Lab Interpretation (test code = Normal 41123-3) [facility]. METABOLIC PANEL (03072)2020-04-29 17:27:00 Test Item Value Reference Range Interpretation Comments NA (test code = 137 mmol/L 135-145 3959054588) K (test code = 4.7 mmol/L 3.5-5 9377215858) CL (test code = 103 mmol/L 98-108 9431884336) CO2 TOTAL (test code = 23 mmol/L 23-31 6394945829) AGAP (test code = 2-16 0607300546) BUN (test code = 5 mg/dL 7-23 L 2423844749) GLUCOSE (test code = 93 mg/dL 70-110 0774965869) CREATININE (test code = 0.61 mg/dL 0.5-1.04 5506849040) TOTAL BILI (test code = 0.3 mg/dL 0.1-1.0 2849376946) CALCIUM (test code = 9.9 mg/dL 8.6-10.6 5955821219) T PROTEIN (test code = 7.5 g/dL 6.3-8.2 6608489478) ALBUMIN (test code = 4.3 g/dL 3.5-5 8262671451) ALK PHOS (test code = 82 U/L 34-122 9707434103) ALTv (test code = 23 U/L 5-35 1742-6) AST(SGOT) (test code = 36 U/L 13-40 5352074583) eGFR Calculation mL/min/1.73m2 (Non-) (test code = 0857387755) eGFR Calculation mL/min/1.73m2 () (test code = 6728508332) DIEGO (test code = DIEGO) Association of [...] tests). Lab Interpretation Abnormal (test code = 35355-8) [facility] [id number] 17:09:41 No radiographic evidence of osteomyelitis. Preliminary [...] erosion. Surgical clips at theamputation site visualized. [facility], Radiant ResultsInft User - 04/29/2020 12:10 PM [...] this study and agree with darlene lopez report.[facility] WITH [id number] 17:07:00 Test Item Value Reference Range Interpretation Comments WBC (test code = See_Comment H [Automated 6990-2) message] The sy stem which generated this result transmitted reference range : 4.30 - 11.10 10*3/?L. The reference range was not used to interpret this result as normal/abnormal . RBC (test code = See_Comment [Automated 799-8) message] The sy stem which generated this [...] RDW-SD (test code = 44.5 fL 39-49.9 44270-6) RDW-CV (test code = 13.1 % 12-15.5 788-0) PLT (test code = See_Comment H [Automated 777-3) message] The sy stem which generated this result transmitted reference range : 166 - 358 10*3/ ?L. The reference r dinora was not used to interpret this result as normal/abnormal . MPV (test code = 9.6 fL 9.5-12.9 68267-3) NRBC/100 WBC (test See_Comment [Automat ed code = 5692520802) message] The system which generated this result transmitted reference range : 0.0 - 10.0 /100 WBCs. The refer ence range was not u sed to interpret th is result as normal/abnormal . NRBC x10^3 (test code <0.01 See_Comment [Auto mated = [id number]) message] The s ystem which generated this result transmitted reference range : 10*3/?L. The reference range was not used to interpret this result as normal/abnormal . GRAN MAT (NEUT) % 59.4 % (test code = 770-8) IMM GRAN % (test code 0.70 % = 3744245842) LYMPH % (test code = 31.3 % 736-9) MONO % (test code = 5.8 % 5905-5) EOS % (test code = 2.0 % 713-8) BASO % (test code = 0.8 % 706-2) GRAN MAT x10^3(ANC) 7.54 10*3/uL 1.88-7.09 H (test code = 2157883654) IMM GRAN x10^3 (test 0.09 10*3/uL 0-0.06 H code = 4980477875) LYMPH x10^3 (test code 3.98 10*3/uL 1.32-3.29 H = 731-0) MONO x10^3 (test code 0.74 10*3/uL 0.33-0.92 = 742-7) EOS x10^3 (test code = 0.25 10*3/uL 0.03-0.39 711-2) BASO x10^3 (test code 0.10 10*3/uL 0.01-0.07 H = 704-7) Lab Interpretation Abnormal (test code = 42646-6) [facility] [id number] 16:24:00 Test Item Value Reference Range Interpretation Comments POCT PREG (test code = 1605) negative POCT PREG LOT # (test code = 3575) [id number] POCT PREG TEST DATE (test 03/20/2021 code = 3576) Lab Interpretation (test code = Normal 39648-8) [facility], [id number] 00:00:00 Test Item Value Reference Range Interpretation Comments CULTURE, ROUTINE (test SPECIMEN NUMBER: code = 56695) [id number] CULTURE, [id number] 00:00:00 Test Item Value Reference Range Interpretation Comments CULTURE, ROUTINE (test SPECIMEN NUMBER: code = 15960) [id number] CULTURE, [id number] 00:00:00 Test Item Value Reference Range Interpretation Comments CULTURE, ROUTINE (test SPECIMEN NUMBER: code = 90183) [id number] CULTURE, [id number] 00:00:00 Test Item Value Reference Range Interpretation Comments CULTURE, ROUTINE (test SPECIMEN NUMBER: code = 35488) [id number] CULTURE, [id number] 00:00:00 Test Item Value Reference Range Interpretation Comments CULTURE, ROUTINE (test SPECIMEN NUMBER: code = 85601) [id number] CULTURE, [id number] 00:00:00 Test Item Value Reference Range Interpretation Comments CULTURE, ROUTINE (test SPECIMEN NUMBER: code = 17385) [id number] CULTURE, [id number] 00:00:00 Test Item Value Reference Range Interpretation Comments CULTURE, ROUTINE (test SPECIMEN NUMBER: code = 73552) [id number] CULTURE, [id number] 00:00:00 Test Item Value Reference Range Interpretation Comments CULTURE, ROUTINE (test SPECIMEN NUMBER: code = 01691) [id number] TRICHOMONAS, URINE, [id number] 00:00:00 Test Item Value Reference Range Interpretation Comments TRICHOMONAS, URINE, AMP (test code = NEGATIVE 66996) TRICHOMONAS, URINE, [id number] 00:00:00 Test Item Value Reference Range Interpretation Comments TRICHOMONAS, URINE, AMP (test code = NEGATIVE 57503) TRICHOMONAS, URINE, [id number] 00:00:00 Test Item Value Reference Range Interpretation Comments TRICHOMONAS, URINE, AMP (test code = NEGATIVE 33455) TRICHOMONAS, URINE, [id number] 00:00:00 Test Item Value Reference Range Interpretation Comments TRICHOMONAS, URINE, AMP (test code = NEGATIVE 93976) TRICHOMONAS, URINE, [id number] 00:00:00 Test Item Value Reference Range Interpretation Comments TRICHOMONAS, URINE, AMP (test code = NEGATIVE 86759) HIV AB/AG COMBO RFLX [id number] 00:00:00 Test Item Value Reference Range Interpretation Comments HIV 1/2 4TH GEN, RFLX CONF (test NON-REACTIVE code = 3514) TRICHOMONAS, URINE, [id number] 00:00:00 Test Item Value Reference Range Interpretation Comments TRICHOMONAS, URINE, AMP (test code = POSITIVE 71032) ACUTE HEPATITIS [id number] 00:00:00 Test Item Value Reference Range Interpretation Comments HEPATITIS A IgM (test code = NON-REACTIVE 73550) HEPATITIS B CORE IgM (test code NON-REACTIVE = 4644) HEPATITIS B SURF AG (test code = NON-REACTIVE 2739) HEPATITIS C ANTIBODY (test code NON-REACTIVE = 4675) INTERPRETATION HEPATITIS A: (NOTE) (test code = 2552) INTERPRETATION HEPATITIS B: (NOTE) (test code = 33588) INTERPRETATION HEPATITIS C: (NOTE) (test code = 21297) [id number] 00:00:00 Test Item Value Reference Range Interpretation Comments RPR RESULT (test code = NON-REACTIVE 3501) RPR TITER (test code = 3500) NOT INDIC. TITER [id number] 00:00:00 Test Item Value Reference Range Interpretation Comments RPR RESULT (test code = NON-REACTIVE 3501) RPR TITER (test code = 3500) NOT INDIC. TITER TRICHOMONAS, URINE, [id number] 00:00:00 Test Item Value Reference Range Interpretation Comments TRICHOMONAS, URINE, AMP (test code = POSITIVE 37194) HIV AB/AG COMBO RFLX [id number] 00:00:00 Test Item Value Reference Range Interpretation Comments HIV 1/2 4TH GEN, RFLX CONF (test NON-REACTIVE code = 3514) TRICHOMONAS, URINE, [id number] 00:00:00 Test Item Value Reference Range Interpretation Comments TRICHOMONAS, URINE, AMP (test code = POSITIVE 73389) HIV AB/AG COMBO RFLX [id number] 00:00:00 Test Item Value Reference Range Interpretation Comments HIV 1/2 4TH GEN, RFLX CONF (test NON-REACTIVE code = 3514) ACUTE HEPATITIS [id number] 00:00:00 Test Item Value Reference Range Interpretation Comments HEPATITIS A IgM (test code = NON-REACTIVE 68622) HEPATITIS B CORE IgM (test code NON-REACTIVE = 4644) HEPATITIS B SURF AG (test code = NON-REACTIVE 2739) HEPATITIS C ANTIBODY (test code NON-REACTIVE = 4675) INTERPRETATION HEPATITIS A: (NOTE) (test code = 2552) INTERPRETATION HEPATITIS B: (NOTE) (test code = 59982) INTERPRETATION HEPATITIS C: (NOTE) (test code = 29321) ACUTE HEPATITIS [id number] 00:00:00 Test Item Value Reference Range Interpretation Comments HEPATITIS A IgM (test code = NON-REACTIVE 14897) HEPATITIS B CORE IgM (test code NON-REACTIVE = 4644) HEPATITIS B SURF AG (test code = NON-REACTIVE 2739) HEPATITIS C ANTIBODY (test code NON-REACTIVE = 4675) INTERPRETATION HEPATITIS A: (NOTE) (test code = 2552) INTERPRETATION HEPATITIS B: (NOTE) (test code = 15026) INTERPRETATION HEPATITIS C: (NOTE) (test code = 81421) [id number] 00:00:00 Test Item Value Reference Range Interpretation Comments RPR RESULT (test code = NON-REACTIVE 3501) RPR TITER (test code = 3500) NOT INDIC. TITER [id number] 00:00:00 Test Item Value Reference Range Interpretation Comments RPR RESULT (test code = NON-REACTIVE 3501) RPR TITER (test code = 3500) NOT INDIC. TITER [id number] 00:00:00 Test Item Value Reference Range Interpretation Comments RPR RESULT (test code = NON-REACTIVE 3501) RPR TITER (test code = 3500) NOT INDIC. TITER HIV AB/AG COMBO RFLX [id number] 00:00:00 Test Item Value Reference Range Interpretation Comments HIV 1/2 4TH GEN, RFLX CONF (test NON-REACTIVE code = 3514) TRICHOMONAS, URINE, [id number] 00:00:00 Test Item Value Reference Range Interpretation Comments TRICHOMONAS, URINE, AMP (test code = POSITIVE 16479) HIV AB/AG COMBO RFLX [id number] 00:00:00 Test Item Value Reference Range Interpretation Comments HIV 1/2 4TH GEN, RFLX CONF (test NON-REACTIVE code = 3514) TRICHOMONAS, URINE, [id number] 00:00:00 Test Item Value Reference Range Interpretation Comments TRICHOMONAS, URINE, AMP (test code = POSITIVE 16691) ACUTE HEPATITIS [id number] 00:00:00 Test Item Value Reference Range Interpretation Comments HEPATITIS A IgM (test code = NON-REACTIVE 23297) HEPATITIS B CORE IgM (test code NON-REACTIVE = 4644) HEPATITIS B SURF AG (test code = NON-REACTIVE 2739) HEPATITIS C ANTIBODY (test code NON-REACTIVE = 4675) INTERPRETATION HEPATITIS A: (NOTE) (test code = 2552) INTERPRETATION HEPATITIS B: (NOTE) (test code = 51477) INTERPRETATION HEPATITIS C: (NOTE) (test code = 64933) ACUTE HEPATITIS [id number] 00:00:00 Test Item Value Reference Range Interpretation Comments HEPATITIS A IgM (test code = NON-REACTIVE 86330) HEPATITIS B CORE IgM (test code NON-REACTIVE = 4644) HEPATITIS B SURF AG (test code = NON-REACTIVE 2739) HEPATITIS C ANTIBODY (test code NON-REACTIVE = 4675) INTERPRETATION HEPATITIS A: (NOTE) (test code = 2552) INTERPRETATION HEPATITIS B: (NOTE) (test code = 22003) INTERPRETATION HEPATITIS C: (NOTE) (test code = 67459) [id number] 00:00:00 Test Item Value Reference Range Interpretation Comments RPR RESULT (test code = NON-REACTIVE 3501) RPR TITER (test code = 3500) NOT INDIC. TITER [id number] 00:00:00 Test Item Value Reference Range Interpretation Comments RPR RESULT (test code = NON-REACTIVE 3501) RPR TITER (test code = 3500) NOT INDIC. TITER [id number] 00:00:00 Test Item Value Reference Range Interpretation Comments RPR RESULT (test code = NON-REACTIVE 3501) RPR TITER (test code = 3500) NOT INDIC. TITER GC AND CHLAMYDIA AMPLIFIED, [id number] 00:00:00 Test Item Value Reference Range Interpretation Comments GONORRHEA, TMA (test code = 99126) POSITIVE CHLAMYDIA, TMA (test code = 50266) NEGATIVE PAP TEST, THINPREP, [id number] 00:00:00 Test Item Value Reference Range Interpretation Comments SOURCE: (test code = Cervical/Endocervical 8001) SLIDES: (test code = 1 8011) LMP: (test code = 8021) 07/23/2019 SPECIMEN ADEQUACY: (test (NOTE) code = 67625) INTERPRETATION: (test NILM/NO EPITH. code = 61735) ABNORMALITY;SEE BELOW OTHER COMMENTS: (test (NOTE) code = 8081) FIRE SPRINKLER SERVICE TECHNICIAN: (test Eli code = 8101) COBY Reese(ASCP)IAC QC TECHNOLOGIST: (test PARK Virgen LY,CT(ASCP) code = 8111) LOCATION: (test code = (NOTE) 58668) CPT: (test code = 8140) (NOTE) GC AND CHLAMYDIA AMPLIFIED, [id number] 00:00:00 Test Item Value Reference Range Interpretation Comments GONORRHEA, TMA (test code = 63119) POSITIVE CHLAMYDIA, TMA (test code = 43109) NEGATIVE GC AND CHLAMYDIA AMPLIFIED, [id number] 00:00:00 Test Item Value Reference Range Interpretation Comments GONORRHEA, TMA (test code = 86261) POSITIVE CHLAMYDIA, TMA (test code = 93414) NEGATIVE PAP TEST, THINPREP, [id number] 00:00:00 Test Item Value Reference Range Interpretation Comments SOURCE: (test code = Cervical/Endocervical 8001) SLIDES: (test code = 1 8011) LMP: (test code = 8021) 07/23/2019 SPECIMEN ADEQUACY: (test (NOTE) code = 86800) INTERPRETATION: (test NILM/NO EPITH. code = 78031) ABNORMALITY;SEE BELOW OTHER COMMENTS: (test (NOTE) code = 8081) FIRE SPRINKLER SERVICE TECHNICIAN: (test Eli code = 8101) COBY Reese(ASCP)IAC QC TECHNOLOGIST: (test PARK AAlesha LY,CT(ASCP) code = 8111) LOCATION: (test code = (NOTE) 91159) CPT: (test code = 8140) (NOTE) PAP TEST, THINPREP, [id number] 00:00:00 Test Item Value Reference Range Interpretation Comments SOURCE: (test code = Cervical/Endocervical 8001) SLIDES: (test code = 1 8011) LMP: (test code = 8021) 07/23/2019 SPECIMEN ADEQUACY: (test (NOTE) code = 16724) INTERPRETATION: (test NILM/NO EPITH. code = 07073) ABNORMALITY;SEE BELOW OTHER COMMENTS: (test (NOTE) code = 8081) FIRE SPRINKLER SERVICE TECHNICIAN: (test Eli code = 8101) COBY Reese(ASCP)IAC QC TECHNOLOGIST: (test PARK A. LY,CT(ASCP) code = 8111) LOCATION: (test code = (NOTE) 52499) CPT: (test code = 8140) (NOTE) GC AND CHLAMYDIA AMPLIFIED, [id number] 00:00:00 Test Item Value Reference Range Interpretation Comments GONORRHEA, TMA (test code = 45367) POSITIVE CHLAMYDIA, TMA (test code = 97863) NEGATIVE GC AND CHLAMYDIA AMPLIFIED, [id number] 00:00:00 Test Item Value Reference Range Interpretation Comments GONORRHEA, TMA (test code = 39274) POSITIVE CHLAMYDIA, TMA (test code = 23341) NEGATIVE PAP TEST, THINPREP, [id number] 00:00:00 Test Item Value Reference Range Interpretation Comments SOURCE: (test code = Cervical/Endocervical 8001) SLIDES: (test code = 1 8011) LMP: (test code = 8021) 07/23/2019 SPECIMEN ADEQUACY: (test (NOTE) code = 77575) INTERPRETATION: (test NILM/NO EPITH. code = 39845) ABNORMALITY;SEE BELOW OTHER COMMENTS: (test (NOTE) code = 8081) FIRE SPRINKLER SERVICE TECHNICIAN: (test Eli code = 8101) COBY Reese(ASCP)IAC QC TECHNOLOGIST: (test PARK AAlesha LY,CT(ASCP) code = 8111) LOCATION: (test code = (NOTE) 94320) CPT: (test code = 8140) (NOTE) PAP TEST, THINPREP, [id number] 00:00:00 Test Item Value Reference Range Interpretation Comments SOURCE: (test code = Cervical/Endocervical 8001) SLIDES: (test code = 1 8011) LMP: (test code = 8021) 07/23/2019 SPECIMEN ADEQUACY: (test (NOTE) code = 77595) INTERPRETATION: (test NILM/NO EPITH. code = 86771) ABNORMALITY;SEE BELOW OTHER COMMENTS: (test (NOTE) code = 8081) FIRE SPRINKLER SERVICE TECHNICIAN: (test Eli code = 8101) COBY Reese(ASCP)IAC QC TECHNOLOGIST: (test COBY WOLF(ASCP) code = 8111) LOCATION: (test code = (NOTE) 06976) CPT: (test code = 8140) (NOTE) VAGINAL PATHOGENS DNA [id number] 00:00:00 Test Item Value Reference Range Interpretation Comments DEMIAN SPECIES (test code = ) NEGATIVE G. VAGINALIS (test code = 37757) POSITIVE T. VAGINALIS (test code = 08591) POSITIVE HPV HIGH RISK WITH GENOTYPE, [id number] 00:00:00 Test Item Value Reference Range Interpretation Comments HPV HIGH RISK INTERP (test code = POSITIVE 55222) HPV 16 (test code = 89372) NEGATIVE HPV 18 (test code = 84323) NEGATIVE HPV, HR, OTHER GENOTYPES (test code POSITIVE = 94511) VAGINAL PATHOGENS DNA [id number] 00:00:00 Test Item Value Reference Range Interpretation Comments DEMIAN SPECIES (test code = 51196) NEGATIVE G. VAGINALIS (test code = 29619) POSITIVE T. VAGINALIS (test code = 36119) POSITIVE VAGINAL PATHOGENS DNA [id number] 00:00:00 Test Item Value Reference Range Interpretation Comments DEMIAN SPECIES (test code = 95917) NEGATIVE G. VAGINALIS (test code = 03156) POSITIVE T. VAGINALIS (test code = 00815) POSITIVE HPV HIGH RISK WITH GENOTYPE, [id number] 00:00:00 Test Item Value Reference Range Interpretation Comments HPV HIGH RISK INTERP (test code = POSITIVE 48178) HPV 16 (test code = 53133) NEGATIVE HPV 18 (test code = 56611) NEGATIVE HPV, HR, OTHER GENOTYPES (test code POSITIVE = 23421) HPV HIGH RISK WITH GENOTYPE, [id number] 00:00:00 Test Item Value Reference Range Interpretation Comments HPV HIGH RISK INTERP (test code = POSITIVE 77456) HPV 16 (test code = 05571) NEGATIVE HPV 18 (test code = 83112) NEGATIVE HPV, HR, OTHER GENOTYPES (test code POSITIVE = 57570) VAGINAL PATHOGENS DNA [id number] 00:00:00 Test Item Value Reference Range Interpretation Comments DEMIAN SPECIES (test code = ) NEGATIVE G. VAGINALIS (test code = ) POSITIVE T. VAGINALIS (test code = ) POSITIVE VAGINAL PATHOGENS DNA [id number] 00:00:00 Test Item Value Reference Range Interpretation Comments DEMIAN SPECIES (test code = ) NEGATIVE G. VAGINALIS (test code = 76352) POSITIVE T. VAGINALIS (test code = ) POSITIVE HPV HIGH RISK WITH GENOTYPE, [id number] 00:00:00 Test Item Value Reference Range Interpretation Comments HPV HIGH RISK INTERP (test code = POSITIVE 99789) HPV 16 (test code = 75424) NEGATIVE HPV 18 (test code = 76253) NEGATIVE HPV, HR, OTHER GENOTYPES (test code POSITIVE = 47918) HPV HIGH RISK WITH GENOTYPE, [id number] 00:00:00 Test Item Value Reference Range Interpretation Comments HPV HIGH RISK INTERP (test code = POSITIVE 74036) HPV 16 (test code = 08468) NEGATIVE HPV 18 (test code = 20146) NEGATIVE HPV, HR, OTHER GENOTYPES (test code POSITIVE = 67017) POCT [id number] 04:24:00 Test Item Value Reference Range Interpretation Comments POCT PREG (test code = 1605) negative On board controls acceptable with yes C Line (test code = 3574) POCT PREG LOT # (test code = 3575) [id number] POCT PREG TEST DATE (test 08/20/2020 code = 3576) Lab Interpretation (test code = Normal 36726-0) [id number] 13:26:00 Test Item Value Reference Range Interpretation Comments HEMOGLOBIN A1C (BEAKER) (test code = 5.2 % 4.3-6.1 368) CBC W/PLT COUNT & AUTO [id number] 09:42:00 Test Item Value Reference Range Interpretation [...] MORPHOLOGY (BEAKER) (test code Normal = 762) [id number] 07:11:00 Test Item Value Reference Range Interpretation Comments MAGNESIUM (BEAKER) (test code = 1.5 mg/dL 1.6-2.6 L 627) BASIC METABOLIC [id number] 07:11:00 Test Item Value Reference Range Interpretation [...] NOT APPLICABLE FOR DIALYSIS PATIEN TS. LIPID [id number] 07:11:00 Test Item Value Reference Range Interpretation [...] acidosis, acute neurological disease, and persistent tachyarrhythmia.TROPONIN [id number] 23:58:00 Test Item Value Reference Range Interpretation [...]
[2022-06-25 09:05] LABS: Absolute Lymphocytes (CBC) 3.1 K/uL (0.7-4.9); Hematocrit 39.7 % (36.0-45.0); Lymphocytes % 29.4 % (15.3-44.8); MCV 92.3 fL (80-100); MPV 7.4 fL (7.6-11.3)
[2022-06-25 09:06] LABS: Urine Blood Trace-intact (Negative); Urine Glucose Negative (Negative); Urine Protein Negative (Negative); Urine Specific Gravity 1.015 (1.005-1.030); Urine pH 7.5 (5.0-7.0)
[2022-06-25 09:11] LABS: Protime INR 0.94
[2022-06-25 09:19] LABS: Barbiturates NEGATIVE (NEGATIVE); Benzodiazepines NEGATIVE (NEGATIVE); Cocaine NEGATIVE (NEGATIVE); METHAMPHETAM NEGATIVE (NEGATIVE); Methadone NEGATIVE (NEGATIVE); Opiates NEGATIVE (NEGATIVE); Phencyclidine NEGATIVE (NEGATIVE); THC Cannibis NEGATIVE (NEGATIVE)
[2022-06-25] MEDS ORDERED: PROMETHAZINE INJ 25 MG/ML AMP ONE (09:27)
[2022-06-25 09:28] LABS: Urine Specific Gravity/Preg 1.015 (1.005-1.030)
[2022-06-25 09:29] LABS: AST/SGOT 11 U/L (15-37); Albumin 4.4 g/dL (3.4-5.0); Alkaline Phosphatase 75 U/L (45-117); BUN Blood Urea Nitrogen 8 mg/dL (7-18); Bicarbonate 26 mmol/L (21-32); Bilirubin Total 0.2 mg/dL (0.2-1.0); Glomerular Filtration Rate 116 ml/min (=/>90); Glucose Level 88 mg/dL (74-106); Potassium 3.9 mmol/L (3.5-5.1); Protein, Total 8.3 g/dL (6.4-8.2); Sodium Level 137 mmol/L (136-145)
[2022-06-25 09:36] LABS: ALT/SGPT 28 U/L (12-78)
[2022-06-25] MEDS ORDERED: DIPHENHYDRAMINE 50 MG/ML VIAL ONE (09:45)
--- NOTE | 2022-06-25 09:50 | RAD REPORT ---
EXAM DESCRIPTION: CTAbdomen Pelvis W Contrast - 06/25/2022 9:39 am CLINICAL HISTORY: Abdominal pain, acute, nonlocalized COMPARISON: Abdomen Pelvis W Contrast dated 03/30/2022; Abdomen Pelvis W Contrast dated 02/26/2022; Abdomen Pelvis W Contrast dated 02/23/2022; Abdomen Pelvis W Contrast dated 10/08/2021; Abdomen P shara W Contrast dated 08/12/2016 TECHNIQUE: CT of the abdomen and pelvis was performed with IV contrast. All CT scans are performed using dose optimization technique as appropriate and may include automated exposure control or mA/KV adjustment according to patient size. FINDINGS: Lower chest: No acute abnormality. Mild circumferential thickened distal esophagus may ref lect esophagitis. Liver: Too small to characterize liver lesions which are likely benign. Biliary: No biliary ductal dilatation. Stomach: No significant focal abnormality. Duodenum: No significant focal abnormality. Pancreas: No significant abnormality. Spleen: No significant abnormality. Adrenal: No suspicious lesions. Kidney/ureter: No hydronephrosis. No renal calculi. Retroperitoneum: No retroperitoneal adenopathy. Vascular: No aneurysm. Bowel: No significant focal abnormality. Normal appendix. Peritoneum: No ascites or free air. Bladder: Grossly unremarkable. Reproductive: Bilateral adnexal cysts which are likely physiologic. Bones: No acute fracture. Other: n/a IMPRESSION: No acute intra-abdominal or pelvic finding. Normal appendix.
[2022-06-25] MEDS ORDERED: LORazepam 2 MG/ML VIAL ONE (10:08)
--- NOTE | 2022-06-25 10:20 | ER ---
Nurse's Notes [facility] Name: Natasha Spann Age: 37 yrs Sex: Female : 1985 Arrival Date: 06/25/2022 Time: 08:07 Bed 20 Private MD: Diagnosis: Abdominal pain, unspecified Presentation: 06/25 08:36 Chief complaint: Patient states: "I was diagnosed with BV and then they said I had PID, ss but nobody gave me anything. I've been having pelvic pain and irregular periods for like a year now.". Coronavirus screen: Client denies travel out of the [place] in the last 14 days. Ebola Screen: Patient denies exposure to infectious person. Patient denies travel to an Ebola-affected area in the 21 days before illness onset. Initial Sepsis Screen: Does the patient meet any 2 criteria? No. Patient's initial sepsis screen is negative. Does the patient have a suspected source of infection? No. Patient's initial sepsis screen is negative. Risk Assessment: Do you want to hurt yourself or someone else? Patient reports no desire to harm self or others. Onset of symptoms is unknown. 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 - Social history:: Smoking status: Patient denies any tobacco usage or history of. Screenin:33 Abuse screen: Denies threats or abuse. Denies injuries from another. Nutritional db screening: No deficits noted. Tuberculosis screening: No symptoms or risk factors identified. Fall Risk None identified. No fall in past 12 months (0 pts). No secondary diagnosis (0 pts). IV access (20 points). Ambulatory Aid- None/Bed Rest/Nurse Assist (0 pts). Gait- Normal/Bed Rest/Wheelchair (0 pts) Mental Status- Oriented to own ability (0 pts). Total Steve Fall Scale indicates No Risk (0-24 pts). Assessment: 09:35 Reassessment: Patient appears in no apparent distress at this time. patient states felt db weak x 1 month that increased today. General: Appears in no apparent distress. comfortable, Behavior is calm, cooperative. Pain: Complains of pain in pelvis. Neuro: No deficits noted. Level of Consciousness is awake, alert, obeys commands, Oriented to person, place, time, situation, Appropriate for age. Cardiovascular: No deficits noted. Respiratory: No deficits noted. GI: No deficits noted. No signs and/or symptoms were reported involving the gastrointestinal system. : Reports reports pelvic pain and tenderness. 10:15 Reassessment: patient reports itching and redness. Noted redness all over patient's db body. Provider notified and Benadryl was administered. Patient appears anxious. Derm: Rash noted that is red, on all over patients torso and arms. 10:58 Reassessment: Patient appears in no apparent distress at this time. Patient is alert, db oriented x 3, equal unlabored respirations, skin warm/dry/pink. Patient states feeling better. Patient states symptoms have improved. Vital Signs: 08:36 BP 134 / 109; Pulse 72; Resp 20; Temp 98.3(O); Pulse Ox 100% on R/A; Weight 68.04 kg; ss Height 5 ft. 8 in. (172.72 cm); Pain 4/10; 09:00 BP 106 / 066; Pulse 63; Resp 16; Pulse Ox 100% on R/A; db 10:00 BP 109 / 66; Pulse 93; Resp 18; Pulse Ox 99% on R/A; db 08:36 Body Mass Index 22.81 (68.04 kg, 172.72 cm) ED Course: 08:07 Patient arrived in ED. rg4 08:08 Mar[facility]C [facility]. snw 08:08 Taylor Stark MD is Attending Physician. snw 08:26 Morena Riley, JONY is Primary Nurse. db 08:37 Triage completed. ss 08:37 Arm band placed on right wrist. ss 08:40 First set of blood cultures drawn. Inserted saline lock: 20 gauge in right antecubital db area, using aseptic technique. Blood collected. 08:50 Second set of blood cultures drawn by me. db 09:40 CT Abd/Pelvis - IV Contrast Only In Process Unspecified. EDMS 10:15 Pulse ox on. NIBP on. db 10:58 Patient has correct armband on for positive identification. Bed in low position. Call db light in reach. Side rails up X 1. 10:58 No provider procedures requiring assistance completed. IV discontinued, intact, db bleeding controlled, No redness/swelling at site. Administered Medications: 09:27 Drug: Phenergan (promethazine) 25 mg Route: IM; Site: left deltoid; db 09:57 Follow up: Response: No adverse reaction db 09:46 Drug: Benadryl (diphenhydrAMINE) 12.5 mg Route: IVP; Site: left antecubital; ss 11:00 Follow up: Response: No adverse reaction db 09:47 CANCELLED (Duplicate Order): Benadryl (diphenhydrAMINE) 12.5 mg IVP once snw 10:08 Drug: Ativan (LORazepam) 1 mg Route: IVP; Site: right antecubital; db 11:00 Follow up: Response: No adverse reaction db Medication: 10:14 VIS not applicable for this client. db Outcome: 10:19 Discharge ordered by . snw 10:58 Discharged to home ambulatory. db 10:58 Condition: stable 10:58 Discharge instructions given to patient, Instructed on discharge instructions, follow up and referral plans. Prescriptions given X 1. 11:00 Patient left the ED. db Signatures: Dispatcher [employer] EDMarley Loyola, MOISES-C DIGITAL COMMUNICATIONS MANAGER-Fabiola Gomez, RN RN ss Giuliana Wilcox4 Morena Riley, JONY RN db Corrections: (The following items were deleted from the chart) 09:46 09:46 Ativan (LORazepam) 1 mg IVP in left antecubital ss
--- NOTE | 2022-06-25 10:20 | EDPHYS ---
Physician Documentation [facility] Name: Natasha Spann Age: 37 yrs Sex: Female : 1985 Arrival Date: 06/25/2022 Time: 08:07 Bed 20 Private MD: ED Physician Taylor Stark HPI: 06/25 08:40 This 37 yrs old Female presents to ER via Ambulatory with complaints of Pelvic Pain. snw 08:40 The patient presents to the emergency department with weakness of the difficult snw walking, the patient is generally weak. Onset: The symptoms/episode began/occurred 2 week(s) ago, and became worse yesterday, and became persistent. Associated signs and symptoms: Pertinent positives: dizziness, near-syncope. Severity of symptoms: At their worst the symptoms were moderate. Current symptoms: somnolent. The patient has experienced similar episodes in the past, chronically. multiple ERs. 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 - Social history:: Smoking status: Patient denies any tobacco usage or history of. ROS: 08:39 Eyes: Negative for injury, pain, redness, and discharge, ENT: Negative for injury, snw pain, and discharge, Neck: Negative for injury, pain, and swelling, Cardiovascular: Negative for chest pain, palpitations, and edema, Respiratory: Negative for shortness of breath, cough, wheezing, and pleuritic chest pain. 08:39 Back: Negative for injury and pain. 08:39 MS/Extremity: Negative for injury and deformity, Skin: Negative for injury, rash, and discoloration. 08:39 Constitutional: Positive for body aches, fatigue, malaise, poor PO intake. 08:39 Abdomen/GI: Positive for abdominal pain. 08:39 : Positive for pelvic pain. 08:39 Neuro: Positive for dizziness. Exam: 08:35 Head/Face: Normocephalic, atraumatic. Eyes: Pupils equal round and reactive to light, snw extra-ocular motions intact. Lids and lashes normal. Conjunctiva and sclera are non-icteric and not injected. Cornea within normal limits. Periorbital areas with no swelling, redness, or edema. ENT: Nares patent. No nasal discharge, no septal abnormalities noted. Tympanic membranes are normal and external auditory canals are clear. Oropharynx with no redness, swelling, or masses, exudates, or evidence of obstruction, uvula midline. Mucous membranes moist. Neck: Trachea midline, no thyromegaly or masses palpated, and no cervical lymphadenopathy. Supple, full range of motion without nuchal rigidity, or vertebral point tenderness. No Meningismus. Chest/axilla: Normal chest wall appearance and motion. Nontender with no deformity. No lesions are appreciated. Cardiovascular: Regular rate and rhythm with a normal S1 and S2. No gallops, murmurs, or rubs. Normal PMI, no JVD. No pulse deficits. Respiratory: Lungs have equal breath sounds bilaterally, clear to auscultation and percussion. No rales, rhonchi or wheezes noted. No increased work of breathing, no retractions or nasal flaring. Abdomen/GI: Soft, non-tender, with normal bowel sounds. No distension or tympany. No guarding or rebound. No evidence of tenderness throughout. Back: No spinal tenderness. No costovertebral tenderness. Full range of motion. Skin: Warm, dry with normal turgor. Normal color with no rashes, no lesions, and no evidence of cellulitis. MS/ Extremity: Pulses equal, no cyanosis. Neurovascular intact. Full, normal range of motion. partial amputee 08:35 Constitutional: The patient appears listless, uncomfortable. 08:35 Neuro: Orientation: is normal, Mentation: is normal, Motor: is normal. 08:35 Psych: Behavior/mood is somnolent. Affect is flat. Vital Signs: 08:36 BP 134 / 109; Pulse 72; Resp 20; Temp 98.3(O); Pulse Ox 100% on R/A; Weight 68.04 kg; ss Height 5 ft. 8 in. (172.72 cm); Pain 4/10; 09:00 BP 106 / 066; Pulse 63; Resp 16; Pulse Ox 100% on R/A; db 10:00 BP 109 / 66; Pulse 93; Resp 18; Pulse Ox 99% on R/A; db 08:36 Body Mass Index 22.81 (68.04 kg, 172.72 cm) ss MDM: 08:20 Patient medically screened. snw 10:16 Data reviewed: vital signs, nurses notes. Data interpreted: Pulse oximetry: on room air snw is 99 %. Interpretation: normal. Counseling: I had a detailed discussion with the patient and/or guardian regarding: the historical points, exam findings, and any diagnostic results supporting the discharge/admit diagnosis, lab results, radiology results, the need for outpatient follow up. Special discussion: Based on the history and exam findings, there is no indication for further emergent testing or inpatient evaluation. I discussed with the patient/guardian the need to see the offender employment specialist for further evaluation of the symptoms. I discussed with the patient/guardian the need to see the OB Gyne specialist for further evaluation of the symptoms. I discussed with the patient/guardian the need to see the primary care provider for further evaluation of the symptoms. 06/25 08:20 Order name: Acetaminophen; Complete Time: 09:36 snw 06/25 08:20 Order name: CBC with Diff; Complete Time: 10: snw 06/25 08:20 Order name: ETOH Level; Complete Time: : snw 06/25 08:20 Order name: PT-INR; Complete Time: : snw 06/25 08:20 Order name: Ptt, Activated; Complete Time: : snw 06/25 08:20 Order name: Salicylate; Complete Time: :32 snw 06/25 08:20 Order name: Urine Drug Screen; Complete Time: :32 snw 06/25 08:20 Order name: CMP; Complete Time: 09:36 snw 06/25 08:20 Order name: Test, Serum; Complete Time: :32 snw 06/25 08:20 Order name: Sed Rate; Complete Time: 10:10 snw 06/25 08:20 Order name: Blood Culture Adult (2) snw 06/25 08:20 Order name: Lactate; Complete Time: 09:40 snw 06/25 08:42 Order name: Flu; Complete Time: 10:44 snw 06/25 08:42 Order name: SARS RAPID; Complete Time: 10:32 snw 06/25 08:20 Order name: EKG; Complete Time: 08:23 snw 06/25 08:20 Order name: IV Saline Lock; Complete Time: 09:31 snw 06/25 08:20 Order name: Labs collected and sent; Complete Time: 09:31 snw 06/25 08:20 Order name: Urine Dipstick-Ancillary (obtain specimen); Complete Time: 09:31 snw 06/25 08:20 Order name: CT Abd/Pelvis - IV Contrast Only; Complete Time: 09:53 snw 06/25 09:06 Order name: Urine Dipstick-Ancillary; Complete Time: 09:09 EDMS 06/25 09:06 Order name: Urine --Ancillary (enter results); Complete Time: 09:32 eb Administered Medications: 09:27 Drug: Phenergan (promethazine) 25 mg Route: IM; Site: left deltoid; db 09:57 Follow up: Response: No adverse reaction db 09:46 Drug: Benadryl (diphenhydrAMINE) 12.5 mg Route: IVP; Site: left antecubital; ss 11:00 Follow up: Response: No adverse reaction db 09:47 CANCELLED (Duplicate Order): Benadryl (diphenhydrAMINE) 12.5 mg IVP once snw 10:08 Drug: Ativan (LORazepam) 1 mg Route: IVP; Site: right antecubital; db 11:00 Follow up: Response: No adverse reaction db Disposition Summary: 06/25/22 10:19 Discharge Ordered Location: Home snw Condition: Stable snw Diagnosis - Abdominal pain, unspecified snw Followup: snw - With: Emergency Department - When: As needed - Reason: Worsening of condition Followup: snw - With: Private Physician - When: 1 - 2 days - Reason: Recheck today's complaints, Continuance of care, Re-evaluation by your physician Discharge Instructions: - Discharge Summary Sheet snw - Abdominal Pain, Adult snw - Pain Without a Known Cause snw - Gas and Gas Pains, Pediatric snw Forms: - Medication Reconciliation Form snw - Thank You Letter snw - Antibiotic Education snw - Prescription Opioid Use snw - Work release form eb Prescriptions: - dicyclomine 20 mg Oral Tablet - take 1 tablet by ORAL route 3 times per day; 21 tablet; Refills: 0, Product snw Selection Permitted Signatures: Dispatcher [employer] EDMS Marley Mary, [facility] ATTENDING RADIOLOGIST-Csnw Fabiola Maxwell RN RN ss Benton, Danielle, RN RN db Corrections: (The following items were deleted from the chart) 08:39 08:35 Head/Face: Normocephalic, atraumatic. Eyes: Pupils equal round and reactive to snw light, extra-ocular motions intact. Lids and lashes normal. Conjunctiva and sclera are non-icteric and not injected. Cornea within normal limits. Periorbital areas with no swelling, redness, or edema. ENT: Nares patent. No nasal discharge, no septal abnormalities noted. Tympanic membranes are normal and external auditory canals are clear. Oropharynx with no redness, swelling, or masses, exudates, or evidence of obstruction, uvula midline. Mucous membranes moist. Neck: Trachea midline, no thyromegaly or masses palpated, and no cervical lymphadenopathy. Supple, full range of motion without nuchal rigidity, or vertebral point tenderness. No Meningismus. Chest/axilla: Normal chest wall appearance and motion. Nontender with no deformity. No lesions are appreciated. Cardiovascular: Regular rate and rhythm with a normal S1 and S2. No gallops, murmurs, or rubs. Normal PMI, no JVD. No pulse deficits. Respiratory: Lungs have equal breath sounds bilaterally, clear to auscultation and percussion. No rales, rhonchi or wheezes noted. No increased work of breathing, no retractions or nasal flaring. Abdomen/GI: Soft, non-tender, with normal bowel sounds. No distension or tympany. No guarding or rebound. No evidence of tenderness throughout. Back: No spinal tenderness. No costovertebral tenderness. Full range of motion. Skin: Warm, dry with normal turgor. Normal color with no rashes, no lesions, and no evidence of cellulitis. MS/ Extremity: Pulses equal, no cyanosis. Neurovascular intact. Full, normal range of motion. snw 09:47 09:46 Benadryl (diphenhydrAMINE) 12.5 mg IVP once ordered. snw sn 10:51 08:20 EKG - Nurse/Tech ordered. [facility] sn
[2022-06-25 10:32] LABS: SARS-CoV-2 Antigen Rapid Res Negative (Negative)
[2022-06-25 11:18] VITALS: TEMP 98.3
[2022-06-25 11:21] VITALS: BP 109/66; O2SAT 99
== END 2022-06-25 11:00 | disposition home or self-care (01) ==
LOC: ER 08:05
DX: R10.2 Pelvic and perineal pain (principal)
CPT/HCPCS: 36415; 74177; 80053; 80307; 80320; 80329; 81003; 81025; 82565; 83605; 84703; 85025; 85610; 85652; 85730; 87040; 87804; 87811; 96372; 99284; J1200; J2550; Q9967

== ENCOUNTER 2022-08-04 18:56 | Emergency (ER) | payer OTHER ==
--- OUTSIDE RECORDS SUMMARY | 2022-08-04 19:08 | XMS REPORT | Continuity of Care Document ---
:1985 Author Organization [facility] t Address [address] [place] [address] Care Team Providers Name Role Phone Diane ARRIETA, [facility] Primary Care Physician [phone] Problems This patient has no known problems. Allergies, Adverse Reactions, Alerts Allergy Allergy Status Severity Reaction(s) Onset Inactive Treating Comm ents Source Name Type Date Date Clinician Mesna - Propensi Active 2021-0 Intraven ty to 6-13 ous adverse 00:00: reaction 00 to drug Wellbutr Propensi Active 2021-0 in - ty to 5-03 Oral adverse 00:00: reaction 00 to drug Levaquin Propensi Active 2021-0 - Oral ty to 4-14 adverse 00:00: reaction 00 to drug Levaquin Propensi Active 2021-0 ty to 1-29 adverse 00:00: reaction 00 to drug Medications Ordered Filled Start Stop Current Ordering Indication Dosage Frequency Signature Comments Components Source Medication Medication Date Date Medication? Clinician (SIG) Name Name TAKE 1 2021-0 No CAPSULE BY 9-02 MOUTH TWICE 00:00: DAILY FOR 00 14 DAYS TAKE 1 2021-0 No 100 CAPSULE BY [...] TAKE 1 2022-0 No 20 TABLET BY 7- MOUTH THREE [...] INFECTIOUS PROCESS Dose 2022-0 No 1 Unknown 7-06 00:00: 00 TAKE 1 2022-0 No 20 [...] Dose 2022-0 No Unknown 4-14 00:00: 00 amoxicillin 2022-0 No 1mg 875 [...] n 500 mg 1-31 tablet 00:00: 00 Latuda 40 2020-1 No 1mg mg tablet 2-14 00:00: 00 Zoloft 100 2020-1 No 51mg mg tablet 2-14 00:00: 00 Zoloft 100 2020-1 No 1mg mg tablet 2-14 00:00: 00 Vistaril 25 2020-1 No 1mg mg capsule 2-14 00:00: 00 Latuda 40 2020-1 No 1mg mg tablet 2-14 00:00: 00 Zoloft 100 2020-1 No 51mg mg tablet 2-14 00:00: 00 Zoloft 100 2020-1 No 1mg mg tablet 2-14 00:00: 00 Vistaril 25 2020-1 No 1mg mg capsule 2-14 00:00: 00 Latuda 40 2020-1 No 1mg mg tablet 2-14 00:00: 00 Zoloft 100 2020-1 No 51mg mg tablet 2-14 00:00: 00 Zoloft 100 2020-1 No 1mg mg tablet 2-14 00:00: 00 Vistaril 25 2020-1 No 1mg mg capsule 2-14 00:00: 00 Latuda 40 2020-1 No 1mg mg tablet 2-14 00:00: 00 Zoloft 2020- No 51mg mg tablet 2-14 00:00: 00 Zoloft 2020-08 No 1mg mg tablet 2-14 00:00: 00 Vistaril 25 2020-08 No 1mg mg capsule 2-14 00:00: 00 Bromfed DM 2020- No 10mg/5 2 mg-30 2-01 mL mg-10 mg/5 00:00: mL oral 00 syrup Bromfed DM 2020-1 No 10mg/5 2 mg-30 2-01 mL mg-10 mg/5 00:00: mL oral 00 syrup Bromfed DM 2020- No 10mg/5 2 mg-30 2-01 mL mg-10 mg/5 00:00: mL oral 00 syrup Bromfed DM 2020- No 10mg/5 2 mg-30 2-01 mL mg-10 mg/5 00:00: mL oral 00 syrup Latuda 40 2020-08 No 1mg mg tablet 1-15 00:00: 00 Zoloft 2020-08 No 51mg mg tablet 1-15 00:00: 00 Vistaril 2020- No 1mg mg capsule 1-15 00:00: 00 Latuda 40 2020- No 1mg mg tablet 1-15 00:00: 00 Zoloft 2020- No 51mg mg tablet 1-15 00:00: 00 Vistaril 2020- No 1mg mg capsule 1-15 00:00: 00 Latuda 40 2020- No 1mg mg tablet 1-15 00:00: 00 Zoloft 2020-1 No 51mg mg tablet 1-15 00:00: [...] mg capsule 0-05 00:00: 00 Vistaril 25 1-1 No 1mg mg capsule 0-05 00:00: 00 Latuda 20 1-1 No 1mg mg tablet 0-05 00:00: 00 Zoloft 100 1-1 No 1mg mg tablet 0-05 00:00: 00 Latuda 40 1-1 No 1mg mg tablet 0-05 00:00: 00 Vistaril 25 1-1 No 1mg mg capsule 0-05 00:00: 00 Vistaril 25 2020-1 No 1mg mg capsule 0-05 00:00: 00 Flagyl 500 1-0 No 1mg mg tablet 9-20 00:00: 00 Flagyl 500 1-0 No 1mg mg tablet 9-20 00:00: 00 Flagyl 500 1-0 No 1mg mg tablet 9- 00:00: 00 Flagyl 500 1-0 No 1mg mg tablet 9- 00:00: 00 Macrobid 2021-0 No 1mg 100 mg 1-29 capsule 00:00: 00 Macrobid 2021-0 No 1mg 100 mg 1-29 capsule 00:00: 00 Macrobid 2021-0 No 1mg 100 mg 1-29 capsule 00:00: 00 Macrobid 2021-0 No 1mg 100 mg 1-29 capsule 00:00: 00 clindamycin 2020-1 No 1mg HCl 300 mg 0-29 capsule 00:00: 00 clindamycin 2020-1 No 1mg HCl 300 mg 0-29 capsule 00:00: 00 clindamycin 2020-1 No 1mg HCl 300 mg 0-29 capsule 00:00: 00 clindamycin 2020-1 No 1mg HCl 300 mg 0-29 capsule 00:00: 00 Bactrim DS 2020-0 No [...] 1mg 500 mg 4-03 tablet 00:00: 00 amoxicillin 2020-0 No 1mg 500 mg 4-03 tablet 00:00: 00 omeprazole 2020-0 No 1mg 40 mg 4-03 capsule,del 00:00: ayed 00 release omeprazole 2020-0 No 1mg 40 mg 4-03 [...] 250 mg 2-17 tablet 00:00: 00 azithromyci 2018- No 4mg n 250 mg 2-17 tablet 00:00: 00 azithromyci 2018- No 4mg n 250 mg 2-17 tablet 00:00: 00 azithromyci 2018-08 No 4mg n 250 mg 2-17 tablet 00:00: 00 metronidazo 2018- No 1mg le 500 mg 2-12 tablet 00:00: 00 metronidazo 2018-08 No 1mg le 500 mg 2-12 tablet 00:00: 00 metronidazo 2018-08 No 1mg le 500 mg 2-12 tablet 00:00: 00 metronidazo 2018-08 No 1mg le 500 mg 2-12 tablet 00:00: 00 Vital Signs Vital Name Observation Time Observation Value Comments Source BP Systolic 2022-07-06 09:16:00 152 mm[Hg] BP Diastolic 2022-07-06 09:16:00 91 mm[Hg] Weight Measured 2022-07-06 09:16:00 151.20 pounds Height Measured 2022-07-06 09:16:00 68.00 inches Body Temperature 2022-07-06 09:16:00 98.30 degrees Heart Rate 2022-07-06 09:16:00 88.00 /min Respiratory Rate 2022-07-06 09:16:00 18.00 /min BP Systolic 2022-05-10 13:39:00 117 mm[Hg] BP [...] 2021-07-21 13:43:00 Respiratory Rate 2021-07-21 13:43:00 Procedures This patient has no known procedures. Plan of Care Planned Activity Planned Date Details Comments Source Goal Plan of Care Note [code = 96725-3] Goal Plan of Care Note [code = 95595-8] Goal Plan of Care Note [code = 90053-5] Goal Plan of Care Note [code = 53235-8] Goal Plan of Care Note [code = 83710-8] Goal Plan of Care Note [code = 05052-4] Goal Plan of Care Note [code = 56352-7] Goal Plan of Care Note [code = 67698-3] Goal Plan of Care Note [code = 36598-9] Goal Plan of Care Note [code = 96779-7] Goal Plan of Care Note [code = 29149-4] Goal Plan of Care Note [code = 38274-7] Goal Plan of Care Note [code = 83553-1] Goal Plan of Care Note [code = 09032-0] Goal Plan of Care Note [code = 91929-5] Goal Plan of Care Note [code = 40846-7] Goal Plan of Care Note [code = 41822-3] Goal Plan of Care Note [code = 85878-5] Goal Plan of Care Note [code = 45634-2] Goal Plan of Care Note [code = 87322-3] Goal Plan of Care Note [code = 76814-3] Goal Plan of Care Note [code = 44637-0] Goal Plan of Care Note [code = 20126-9] Goal Plan of Care Note [code = 82809-2] Goal Plan of Care Note [code = 71393-1] Goal Plan of Care Note [code = 76372-0] Goal Plan of Care Note [code = 84205-8] Goal Plan of Care Note [code = 74801-3] Goal Plan of Care Note [code = 30907-9] Goal Plan of Care Note [code = 20567-4] Goal Plan of Care Note [code = 18973-4] Goal Plan of Care Note [code = 81440-0] Goal Plan of Care Note [code = 97624-3] Goal Plan of Care Note [code = 56896-7] Goal Plan of Care Note [code = 73896-4] Goal Plan of Care Note [code = 30036-8] Goal Plan of Care Note [code = 62472-7] Goal Plan of Care Note [code = 11553-2] Goal Plan of Care Note [code = 79323-8] Goal Plan of Care Note [code = 13651-2] Goal Plan of Care Note [code = 76833-3] Goal Plan of Care Note [code = 46476-8] Goal Plan of Care Note [code = 83831-8] Goal Plan of Care Note [code = 19292-5] Goal Plan of Care Note [code = 53244-3] Goal Plan of Care Note [code = 42252-7] Goal Plan of Care Note [code = 84961-3] Goal Plan of Care Note [code = 63696-6] Goal Plan of Care Note [code = 38791-1] Goal Plan of Care Note [code = 12135-8] Goal Plan of Care Note [code = 53681-8] Goal Plan of Care Note [code = 59106-0] Goal Plan of Care Note [code = 16246-8] Goal Plan of Care Note [code = 32967-4] Goal Plan of Care Note [code = 59793-5] Goal Plan of Care Note [code = 62907-0] Goal Plan of Care Note [code = 31941-3] Goal Plan of Care Note [code = 23676-9] Goal Plan of Care Note [code = 47873-2] Goal Plan of Care Note [code = 36653-8] Goal Plan of Care Note [code = 41797-0] Goal Plan of Care Note [code = 81921-9] Goal Plan of Care Note [code = 98014-2] Goal Plan of Care Note [code = 52352-7] Goal Plan of Care Note [code = 54986-5] Goal Plan of Care Note [code = 00572-6] Goal Plan of Care Note [code = 12920-2] Goal Plan of Care Note [code = 98376-7] Goal Plan of Care Note [code = 40389-7] Goal Plan of Care Note [code = 84668-3] Goal Plan of Care Note [code = 77222-2] Goal Plan of Care Note [code = 20827-8] Goal Plan of Care Note [code = 60502-1] Goal Plan of Care Note [code = 71782-3] Goal Plan of Care Note [code = 34147-5] Goal Plan of Care Note [code = 31886-3] Goal Plan of Care Note [code = 50767-7] Goal Plan of Care Note [code = 52142-9] Goal Plan of Care Note [code = 53585-6] Goal Plan of Care Note [code = 51227-2] Goal Plan of Care Note [code = 44280-5] Goal Plan of Care Note [code = 98868-7] Goal Plan of Care Note [code = 39550-2] Goal Plan of Care Note [code = 29976-1] Goal Plan of Care Note [code = 62422-1] Goal Plan of Care Note [code = 60331-4] Goal Plan of Care Note [code = 30195-2] Goal Plan of Care Note [code = 66810-2] Goal Plan of Care Note [code = 05903-9] Goal Plan of Care Note [code = 15365-7] Goal Plan of Care Note [code = 25319-1] Goal Plan of Care Note [code = 71855-8] Goal Plan of Care Note [code = 27719-3] Goal Plan of Care Note [code = 87068-4] Goal Plan of Care Note [code = 89285-2] Goal Plan of Care Note [code = 90888-7] Goal Plan of Care Note [code = 60609-5] Goal Plan of Care Note [code = 69298-4] Goal Plan of Care Note [code = 76021-1] Goal Plan of Care Note [code = 95421-4] Goal Plan of Care Note [code = 67133-7] Goal Plan of Care Note [code = 52718-0] Goal Plan of Care Note [code = 45189-7] Goal Plan of Care Note [code = 65089-9] Goal Plan of Care Note [code = 27838-0] Goal Plan of Care Note [code = 96551-0] Goal Plan of Care Note [code = 89040-7] Goal Plan of Care Note [code = 29380-4] Goal Plan of Care Note [code = 37092-7] Goal Plan of Care Note [code = 22331-5] Goal Plan of Care Note [code = 30278-8] Goal Plan of Care Note [code = 82670-5] Goal Plan of Care Note [code = 29659-9] Goal Plan of Care Note [code = 56410-3] Goal Plan of Care Note [code = 36998-4] Goal Plan of Care Note [code = 41418-9] Goal Plan of Care Note [code = 60562-3] Goal Plan of Care Note [code = 14841-5] Goal Plan of Care Note [code = 43971-9] Goal Plan of Care Note [code = 72601-0] Goal Plan of Care Note [code = 01852-0] Goal Plan of Care Note [code = 89284-4] Goal Plan of Care Note [code = 34724-8] Goal Plan of Care Note [code = 38321-7] Goal Plan of Care Note [code = 36311-8] Goal Plan of Care Note [code = 94243-2] Goal Plan of Care Note [code = 39941-6] Goal Plan of Care Note [code = 50004-9] Goal Plan of Care Note [code = 69262-7] Goal Plan of Care Note [code = 57023-9] Goal Plan of Care Note [code = 76850-9] Goal Plan of Care Note [code = 11943-3] Goal Plan of Care Note [code = 46696-5] Goal Plan of Care Note [code = 42856-2] Goal Plan of Care Note [code = 43965-5] Goal Plan of Care Note [code = 61023-6] Goal Plan of Care Note [code = 00326-1] Goal Plan of Care Note [code = 15584-8] Goal Plan of Care Note [code = 18514-6] Goal Plan of Care Note [code = 49533-4] Goal Plan of Care Note [code = 14962-2] Goal Plan of Care Note [code = 10119-6] Goal Plan of Care Note [code = 18593-0] Goal Plan of Care Note [code = 92008-1] Goal Plan of Care Note [code = 76360-6] Goal Plan of Care Note [code = 35133-0] Goal Plan of Care Note [code = 13722-4] Goal Plan of Care Note [code = 37807-4] Goal Plan of Care Note [code = 04630-3] Goal Plan of Care Note [code = 79696-2] Goal Plan of Care Note [code = 95625-1] Goal Plan of Care Note [code = 15467-4] Goal Plan of Care Note [code = 67807-2] Goal Plan of Care Note [code = 78542-4] Goal Plan of Care Note [code = 68721-7] Goal Plan of Care Note [code = 32678-9] Goal Plan of Care Note [code = 86668-9] Goal Plan of Care Note [code = 23622-9] Goal Plan of Care Note [code = 65885-7] Goal Plan of Care Note [code = 32060-3] Goal Plan of Care Note [code = 07689-6] Goal Plan of Care Note [code = 31048-5] Goal Plan of Care Note [code = 40659-7] Goal Plan of Care Note [code = 50298-3] Goal Plan of Care Note [code = 92603-5] Goal Plan of Care Note [code = 48183-8] Goal Plan of Care Note [code = 51290-9] Goal Plan of Care Note [code = 76281-4] Goal Plan of Care Note [code = 86544-6] Goal Plan of Care Note [code = 75435-6] Goal Plan of Care Note [code = 09008-2] Goal Plan of Care Note [code = 73912-9] Goal Plan of Care Note [code = 08523-0] Goal Plan of Care Note [code = 06312-9] Goal Plan of Care Note [code = 27395-7] Goal Plan of Care Note [code = 32953-4] Goal Plan of Care Note [code = 36069-1] Goal Plan of Care Note [code = 06823-0] Goal Plan of Care Note [code = 44618-8] Goal Plan of Care Note [code = 63282-2] Goal Plan of Care Note [code = 64108-8] Goal Plan of Care Note [code = 36667-6] Goal Plan of Care Note [code = 50364-9] Goal Plan of Care Note [code = 93017-3] Goal Plan of Care Note [code = 84489-9] Goal Plan of Care Note [code = 65998-6] Goal Plan of Care Note [code = 44930-6] Goal Plan of Care Note [code = 96572-8] Goal Plan of Care Note [code = 45356-9] Goal Plan of Care Note [code = 80945-9] Goal Plan of Care Note [code = 51195-8] Goal Plan of Care Note [code = 31222-8] Goal Plan of Care Note [code = 67521-3] Goal Plan of Care Note [code = 49158-6] Encounters Start End Encounter Admission Attending Care Care Encounter Source Date/Time Date/Time Type Type Clinicians Facility Department ID 2022-07-27 2022-07-27 Outpatient [facility] [id number] Shawn 10:55:44 10:55:44 1207 F Kit 2022-07-06 2022-07-06 Outpatient [facility] [id number] 022 Shawn 09:02:38 09:02:38 1116 F Kit 2022-07-06 2022-07-06 Outpatient [id number] 00:00:00 00:00:00 Visit yy3i-4o46 m7r-3n71-4 -6n79-z98 p93-j6424b 18m098jkf 717eef 2022-06-20 2022-06-20 Outpatient [facility] [id number] 022 Shawn 13:59:58 13:59:58 1031 F Kit 2022-05-10 2022-05-10 Outpatient [id number] [id number] 00:00:00 00:00:00 Visit 6faf-4aa9 faf-4aa9-a -z244-bsl 252-uzg190 966yj2i00 fd9c83 2022-03-25 2022-03-25 Outpatient 9ojv57j4- [id number] kx34o6-2 00:00:00 00:00:00 Visit 8331-1684 526-4361-b -k281-8m4 748-0f33f8 0o880522p 11214f 2022-03-22 2022-03-22 Outpatient [id number]- [id number] 0k58tt-u 00:00:00 00:00:00 Visit b87p-0162 49f-4209-9 -22x4-e88 9o4-i653bx 4xtil090q sl241l Results Test Description Test Time Test Comments Results Result Comments Source CULTURE, URINE 2022-05-12 00:00:00 Test Item Value Reference Range Interpretation Comme nts CULTURE, URINE (test code = 61193) SPECIMEN NUMBER: [id number] CULTURE, [id number] 00:00:00 Test Item Value Reference Range Interpretation Comments CULTURE, URINE (test SPECIMEN NUMBER: code = 29158) [id number] VAGINAL PATHOGENS DNA [id number] 00:00:00 Test Item Value Reference Range Interpretation Comments DEMIAN SPECIES (test code = ) NEGATIVE G. VAGINALIS (test code = ) POSITIVE T. VAGINALIS (test code = ) NEGATIVE VAGINAL PATHOGENS DNA [id number] 00:00:00 Test Item Value Reference Range Interpretation Comments DEMIAN SPECIES (test code = ) NEGATIVE G. VAGINALIS (test code = ) POSITIVE T. VAGINALIS (test code = ) NEGATIVE CBC W/AUTO DIFF WITH [id number] 08:28:04 Test Item Value Reference Range Interpretation [...] RBCS 0.00 K/UL 0.00-0.11 (test code = 62672) TSH, THIRD [id number] 06:43:39 Test Item Value Reference Range Interpretation Comments TSH, THIRD GENERATION (test code 0.359 UIU/ML 0.400-4.100 L = 2821) [id number] 06:43:39 Test Item Value Reference Range Interpretation [...] IN POSTMENOPAUSAL FEMALES, CONSIDER ULTRAS ENSITIVE ESTRADIOL ([facility] ORDER CODE 5678). METHODOL OGY IS LUZ DIANA ELECTROCH EMILUMINESCENT IMMUNOASSAY WIT H A LIMIT OF DETECTION OF 17 PG/ML. FSH + LH [id number] 06:43:39 Test Item Value Reference Range Interpretation Comments FOLLICLE STIM HORMONE 12.1 IU/L SEE BELOW EXPECTED (test code = 2700) VALUES FO R FSH FOR FEMALES >17 YEA RS MALES FEMALES >=18 YEARS 1.5- 12.4 IU/L FOLLICULAR 3.5-12.5 IU/L M ID-CYCLE PEAK 4.7-21.5 IU/L LUTEAL PHASE 1. 7-7.7 IU/L POSTMENOPA USAL 25.8-134.8 IU/L LUTEINIZING HORMONE 5.2 IU/L SEE BELOW EXPECTED (test code = 2776) VALUES FO R LH FOR FEMALES >17 YEA RS MALES FEMALES >=18 YEARS 1.8- 8.6 IU/L FOLLICULAR 2.4- 12.6 IU/L MID-CYCLE PEAK 14.0-95.6 IU/L LUTEAL PHASE 1.0-11.4 IU/L POSTMENOPAUSAL 7.7-58.5 IU/L [id number] 06:43:39 Test Item Value Reference Range Interpretation [...] UNL ESS OTHERWISE INDICATED, ALL TESTING PERFORMED [facility], [place] [address] 7216 SKIN CARE INSTRUCTOR: MARYLIN LIZ M.D. FRANCK Chung [id number] [place] [id number] CBC W/AUTO [id number] 00:00:00 Test Item Value Reference Range Interpretation [...] NUCLEATED RBCS (test code = 0.00 K/UL 14428) CBC W/AUTO [id number] 00:00:00 Test Item Value Reference Range Interpretation [...] NUCLEATED RBCS (test code = 0.00 K/UL 62348) CBC W/AUTO [id number] 00:00:00 Test Item Value Reference Range Interpretation [...] NUCLEATED RBCS (test code = 0.00 K/UL 67056) [id number] 00:00:00 Test Item Value Reference Range Interpretation Comments TSH, THIRD GENERATION (test code 0.359 UIU/ML = 2821) [id number] 00:00:00 Test Item Value Reference Range Interpretation Comments TSH, THIRD GENERATION (test code 0.359 UIU/ML = 2821) [id number] 00:00:00 Test Item Value Reference Range Interpretation Comments TSH, THIRD GENERATION (test code 0.359 UIU/ML = 2821) [id number] 00:00:00 Test Item Value Reference Range Interpretation Comments ESTRADIOL (test code = 2505) 34.5 PG/ML [id number] 00:00:00 Test Item Value Reference Range Interpretation Comments ESTRADIOL (test code = 2505) 34.5 PG/ML [id number] 00:00:00 Test Item Value Reference Range Interpretation Comments ESTRADIOL (test code = 2505) 34.5 PG/ML FSH + LH [id number] 00:00:00 Test Item Value Reference Range Interpretation Comments FOLLICLE STIM HORMONE (test code = 12.1 IU/L 2700) LUTEINIZING HORMONE (test code = 5.2 IU/L 2776) FSH + LH [id number] 00:00:00 Test Item Value Reference Range Interpretation Comments FOLLICLE STIM HORMONE (test code = 12.1 IU/L 2700) LUTEINIZING HORMONE (test code = 5.2 IU/L 2776) [id number] 00:00:00 Test Item Value Reference Range Interpretation Comments PROLACTIN (test code = 2800) 5.6 NG/ML [id number] 00:00:00 Test Item Value Reference Range Interpretation Comments PROLACTIN (test code = 2800) 5.6 NG/ML CBC W/AUTO [id number] 00:00:00 Test Item Value Reference Range Interpretation [...] NUCLEATED RBCS (test code = 0.00 K/UL 62140) CBC W/AUTO [id number] 00:00:00 Test Item Value Reference Range Interpretation [...] NUCLEATED RBCS (test code = 0.00 K/UL 00434) CBC W/AUTO [id number] 00:00:00 Test Item Value Reference Range Interpretation [...] NUCLEATED RBCS (test code = 0.00 K/UL 51422) [id number] 00:00:00 Test Item Value Reference Range Interpretation Comments TSH, THIRD GENERATION (test code 0.359 UIU/ML = 2821) [id number] 00:00:00 Test Item Value Reference Range Interpretation Comments TSH, THIRD GENERATION (test code 0.359 UIU/ML = 2821) [id number] 00:00:00 Test Item Value Reference Range Interpretation Comments TSH, THIRD GENERATION (test code 0.359 UIU/ML = 2821) [id number] 00:00:00 Test Item Value Reference Range Interpretation Comments ESTRADIOL (test code = 2505) 34.5 PG/ML [id number] 00:00:00 Test Item Value Reference Range Interpretation Comments ESTRADIOL (test code = 2505) 34.5 PG/ML [id number] 00:00:00 Test Item Value Reference Range Interpretation Comments ESTRADIOL (test code = 2505) 34.5 PG/ML FSH + LH [id number] 00:00:00 Test Item Value Reference Range Interpretation Comments FOLLICLE STIM HORMONE (test code = 12.1 IU/L 2700) LUTEINIZING HORMONE (test code = 5.2 IU/L 2776) FSH + LH [id number] 00:00:00 Test Item Value Reference Range Interpretation Comments FOLLICLE STIM HORMONE (test code = 12.1 IU/L 2700) LUTEINIZING HORMONE (test code = 5.2 IU/L 2776) [id number] 00:00:00 Test Item Value Reference Range Interpretation Comments PROLACTIN (test code = 2800) 5.6 NG/ML [id number] 00:00:00 Test Item Value Reference Range Interpretation Comments PROLACTIN (test code = 2800) 5.6 NG/ML CBC W/AUTO [id number] 00:00:00 Test Item Value Reference Range Interpretation [...] NUCLEATED RBCS (test code = 0.00 K/UL 77170) CBC W/AUTO [id number] 00:00:00 Test Item Value Reference Range Interpretation [...] NUCLEATED RBCS (test code = 0.00 K/UL 85292) CBC W/AUTO [id number] 00:00:00 Test Item Value Reference Range Interpretation [...] NUCLEATED RBCS (test code = 0.00 K/UL 15646) [id number] 00:00:00 Test Item Value Reference Range Interpretation Comments TSH, THIRD GENERATION (test code 0.359 UIU/ML = 2821) [id number] 00:00:00 Test Item Value Reference Range Interpretation Comments TSH, THIRD GENERATION (test code 0.359 UIU/ML = 2821) [id number] 00:00:00 Test Item Value Reference Range Interpretation Comments TSH, THIRD GENERATION (test code 0.359 UIU/ML = 2821) [id number] 00:00:00 Test Item Value Reference Range Interpretation Comments ESTRADIOL (test code = 2505) 34.5 PG/ML [id number] 00:00:00 Test Item Value Reference Range Interpretation Comments ESTRADIOL (test code = 2505) 34.5 PG/ML [id number] 00:00:00 Test Item Value Reference Range Interpretation Comments ESTRADIOL (test code = 2505) 34.5 PG/ML FSH + LH [id number] 00:00:00 Test Item Value Reference Range Interpretation Comments FOLLICLE STIM HORMONE (test code = 12.1 IU/L 2700) LUTEINIZING HORMONE (test code = 5.2 IU/L 2776) FSH + LH [id number] 00:00:00 Test Item Value Reference Range Interpretation Comments FOLLICLE STIM HORMONE (test code = 12.1 IU/L 2700) LUTEINIZING HORMONE (test code = 5.2 IU/L 2776) [id number] 00:00:00 Test Item Value Reference Range Interpretation Comments PROLACTIN (test code = 2800) 5.6 NG/ML [id number] 00:00:00 Test Item Value Reference Range Interpretation Comments PROLACTIN (test code = 2800) 5.6 NG/ML VAGINAL PATHOGENS DNA PANEL [ADDED]2021-12-22 00:00:00 Test Item Value Reference Range Interpretation Comments DEMIAN SPECIES (test code = ) NEGATIVE G. VAGINALIS (test code = 01666) POSITIVE T. VAGINALIS (test code = 44694) NEGATIVE VAGINAL PATHOGENS DNA PANEL [ADDED]2021-12-22 00:00:00 Test Item Value Reference Range Interpretation Comments DEMIAN SPECIES (test code = ) NEGATIVE G. VAGINALIS (test code = 33770) POSITIVE T. VAGINALIS (test code = 88348) NEGATIVE HIV 1/2 4TH GEN, RFLX CONF [...] HEPATITIS A IgM (test code = NON-REACTIVE 98798) HEPATITIS B CORE IgM (test code NON-REACTIVE = 4644) HEPATITIS B SURF AG (test code = NON-REACTIVE 2739) HEPATITIS C ANTIBODY (test code NON-REACTIVE = 4675) INTERPRETATION HEPATITIS A: (NOTE) (test code = 2552) INTERPRETATION HEPATITIS B: (NOTE) (test code = 67706) INTERPRETATION HEPATITIS C: (NOTE) (test code = 70696) HEPATITIS PANEL, ACUTE [ADDED]2021-12-22 00:00:00 Test Item Value Reference Range Interpretation Comments HEPATITIS A IgM (test code = NON-REACTIVE 57409) HEPATITIS B CORE IgM (test code NON-REACTIVE = 4644) HEPATITIS B SURF AG (test code = NON-REACTIVE 2739) HEPATITIS C ANTIBODY (test code NON-REACTIVE = 4675) INTERPRETATION HEPATITIS A: (NOTE) (test code = 2552) INTERPRETATION HEPATITIS B: (NOTE) (test code = 96608) INTERPRETATION HEPATITIS C: (NOTE) (test code = 70925) VAGINAL PATHOGENS DNA PANEL [ADDED]2021-12-22 00:00:00 Test Item Value Reference Range Interpretation Comments DEMIAN SPECIES (test code = 27978) NEGATIVE G. VAGINALIS (test code = 49682) POSITIVE T. VAGINALIS (test code = 85544) NEGATIVE HIV 1/2 4TH GEN, RFLX CONF [...] HEPATITIS A IgM (test code = NON-REACTIVE 65062) HEPATITIS B CORE IgM (test code NON-REACTIVE = 4644) HEPATITIS B SURF AG (test code = NON-REACTIVE 2739) HEPATITIS C ANTIBODY (test code NON-REACTIVE = 4675) INTERPRETATION HEPATITIS A: (NOTE) (test code = 2552) INTERPRETATION HEPATITIS B: (NOTE) (test code = 44286) INTERPRETATION HEPATITIS C: (NOTE) (test code = 34350) VAGINAL PATHOGENS DNA PANEL [ADDED]2021-12-22 00:00:00 Test Item Value Reference Range Interpretation Comments DEMIAN SPECIES (test code = ) NEGATIVE G. VAGINALIS (test code = 45416) POSITIVE T. VAGINALIS (test code = 57351) NEGATIVE VAGINAL PATHOGENS DNA PANEL [ADDED]2021-12-22 00:00:00 Test Item Value Reference Range Interpretation Comments DEMIAN SPECIES (test code = ) NEGATIVE G. VAGINALIS (test code = 19949) POSITIVE T. VAGINALIS (test code = 00705) NEGATIVE HIV 1/2 4TH GEN, RFLX CONF [...] HEPATITIS A IgM (test code = NON-REACTIVE 84149) HEPATITIS B CORE IgM (test code NON-REACTIVE = 4644) HEPATITIS B SURF AG (test code = NON-REACTIVE 2739) HEPATITIS C ANTIBODY (test code NON-REACTIVE = 4675) INTERPRETATION HEPATITIS A: (NOTE) (test code = 2552) INTERPRETATION HEPATITIS B: (NOTE) (test code = 87265) INTERPRETATION HEPATITIS C: (NOTE) (test code = 87976) HEPATITIS PANEL, ACUTE [ADDED]2021-12-22 00:00:00 Test Item Value Reference Range Interpretation Comments HEPATITIS A IgM (test code = NON-REACTIVE 73405) HEPATITIS B CORE IgM (test code NON-REACTIVE = 4644) HEPATITIS B SURF AG (test code = NON-REACTIVE 2739) HEPATITIS C ANTIBODY (test code NON-REACTIVE = 4675) INTERPRETATION HEPATITIS A: (NOTE) (test code = 2552) INTERPRETATION HEPATITIS B: (NOTE) (test code = 73416) INTERPRETATION HEPATITIS C: (NOTE) (test code = 09705) VAGINAL PATHOGENS DNA PANEL [ADDED]2021-12-22 00:00:00 Test Item Value Reference Range Interpretation Comments DEMIAN SPECIES (test code = ) NEGATIVE G. VAGINALIS (test code = 98568) POSITIVE T. VAGINALIS (test code = 67500) NEGATIVE VAGINAL PATHOGENS DNA PANEL [ADDED]2021-12-22 00:00:00 Test Item Value Reference Range Interpretation Comments DEMIAN SPECIES (test code = 40764) NEGATIVE G. VAGINALIS (test code = 03315) POSITIVE T. VAGINALIS (test code = 64476) NEGATIVE HIV 1/2 4TH GEN, RFLX CONF [...] HEPATITIS A IgM (test code = NON-REACTIVE 62865) HEPATITIS B CORE IgM (test code NON-REACTIVE = 4644) HEPATITIS B SURF AG (test code = NON-REACTIVE 2739) HEPATITIS C ANTIBODY (test code NON-REACTIVE = 4675) INTERPRETATION HEPATITIS A: (NOTE) (test code = 2552) INTERPRETATION HEPATITIS B: (NOTE) (test code = 90111) INTERPRETATION HEPATITIS C: (NOTE) (test code = 51889) HEPATITIS PANEL, ACUTE [ADDED]2021-12-22 00:00:00 Test Item Value Reference Range Interpretation Comments HEPATITIS A IgM (test code = NON-REACTIVE 31996) HEPATITIS B CORE IgM (test code NON-REACTIVE = 4644) HEPATITIS B SURF AG (test code = NON-REACTIVE 2739) HEPATITIS C ANTIBODY (test code NON-REACTIVE = 4675) INTERPRETATION HEPATITIS A: (NOTE) (test code = 2552) INTERPRETATION HEPATITIS B: (NOTE) (test code = 54164) INTERPRETATION HEPATITIS C: (NOTE) (test code = 07131) [id number] 00:00:00 Test Item Value Reference Range Interpretation Comments TSH, THIRD GENERATION (test code 0.964 UIU/ML = 2821) [id number] 00:00:00 Test Item Value Reference Range Interpretation Comments TSH, THIRD GENERATION (test code 0.964 UIU/ML = 2821) [id number] 00:00:00 Test Item Value Reference Range Interpretation Comments TSH, THIRD GENERATION (test code 0.964 UIU/ML = 2821) [id number] 00:00:00 Test Item Value Reference Range Interpretation Comments PROLACTIN (test code = 2800) 13.5 NG/ML [id number] 00:00:00 Test Item Value Reference Range Interpretation Comments PROLACTIN (test code = 2800) 13.5 NG/ML GC AND CHLAMYDIA, AMPLIFIED, [id number] 00:00:00 Test Item Value Reference Range Interpretation Comments GONORRHEA, NAAT (test code = 24910) NEGATIVE CHLAMYDIA, NAAT (test code = 13546) NEGATIVE GC AND CHLAMYDIA, AMPLIFIED, [id number] 00:00:00 Test Item Value Reference Range Interpretation Comments GONORRHEA, NAAT (test code = 55166) NEGATIVE CHLAMYDIA, NAAT (test code = 79552) NEGATIVE HIV AB/AG COMBO RFLX [id number] 00:00:00 Test Item Value Reference Range Interpretation Comments HIV 1/2 4TH GEN, RFLX CONF (test NON-REACTIVE code = 3514) HIV AB/AG COMBO RFLX [id number] 00:00:00 Test Item Value Reference Range Interpretation Comments HIV 1/2 4TH GEN, RFLX CONF (test NON-REACTIVE code = 3514) [id number] 00:00:00 Test Item Value Reference Range Interpretation Comments RPR RESULT (test code = NON-REACTIVE 3501) RPR TITER (test code = 3500) NOT INDIC. TITER [id number] 00:00:00 Test Item Value Reference Range Interpretation Comments RPR RESULT (test code = NON-REACTIVE 3501) RPR TITER (test code = 3500) NOT INDIC. TITER [id number] 00:00:00 Test Item Value Reference Range Interpretation Comments RPR RESULT (test code = NON-REACTIVE 3501) RPR TITER (test code = 3500) NOT INDIC. TITER [id number] 00:00:00 Test Item Value Reference Range Interpretation Comments TSH, THIRD GENERATION (test code 0.964 UIU/ML = 2821) [id number] 00:00:00 Test Item Value Reference Range Interpretation Comments TSH, THIRD GENERATION (test code 0.964 UIU/ML = 2821) [id number] 00:00:00 Test Item Value Reference Range Interpretation Comments PROLACTIN (test code = 2800) 13.5 NG/ML GC AND CHLAMYDIA, AMPLIFIED, [id number] 00:00:00 Test Item Value Reference Range Interpretation Comments GONORRHEA, NAAT (test code = 56326) NEGATIVE CHLAMYDIA, NAAT (test code = 10944) NEGATIVE HIV AB/AG COMBO RFLX [id number] 00:00:00 Test Item Value Reference Range Interpretation Comments HIV 1/2 4TH GEN, RFLX CONF (test NON-REACTIVE code = 3514) [id number] 00:00:00 Test Item Value Reference Range Interpretation Comments RPR RESULT (test code = NON-REACTIVE 3501) RPR TITER (test code = 3500) NOT INDIC. TITER [id number] 00:00:00 Test Item Value Reference Range Interpretation Comments RPR RESULT (test code = NON-REACTIVE 3501) RPR TITER (test code = 3500) NOT INDIC. TITER [id number] 00:00:00 Test Item Value Reference Range Interpretation Comments TSH, THIRD GENERATION (test code 0.964 UIU/ML = 2821) [id number] 00:00:00 Test Item Value Reference Range Interpretation Comments TSH, THIRD GENERATION (test code 0.964 UIU/ML = 2821) [id number] 00:00:00 Test Item Value Reference Range Interpretation Comments TSH, THIRD GENERATION (test code 0.964 UIU/ML = 2821) [id number] 00:00:00 Test Item Value Reference Range Interpretation Comments PROLACTIN (test code = 2800) 13.5 NG/ML [id number] 00:00:00 Test Item Value Reference Range Interpretation Comments PROLACTIN (test code = 2800) 13.5 NG/ML GC AND CHLAMYDIA, AMPLIFIED, [id number] 00:00:00 Test Item Value Reference Range Interpretation Comments GONORRHEA, NAAT (test code = 46096) NEGATIVE CHLAMYDIA, NAAT (test code = 94905) NEGATIVE GC AND CHLAMYDIA, AMPLIFIED, [id number] 00:00:00 Test Item Value Reference Range Interpretation Comments GONORRHEA, NAAT (test code = 81012) NEGATIVE CHLAMYDIA, NAAT (test code = 07430) NEGATIVE HIV AB/AG COMBO RFLX [id number] 00:00:00 Test Item Value Reference Range Interpretation Comments HIV 1/2 4TH GEN, RFLX CONF (test NON-REACTIVE code = 3514) HIV AB/AG COMBO RFLX [id number] 00:00:00 Test Item Value Reference Range Interpretation Comments HIV 1/2 4TH GEN, RFLX CONF (test NON-REACTIVE code = 3514) [id number] 00:00:00 Test Item Value Reference Range Interpretation Comments RPR RESULT (test code = NON-REACTIVE 3501) RPR TITER (test code = 3500) NOT INDIC. TITER [id number] 00:00:00 Test Item Value Reference Range Interpretation Comments RPR RESULT (test code = NON-REACTIVE 3501) RPR TITER (test code = 3500) NOT INDIC. TITER [id number] 00:00:00 Test Item Value Reference Range Interpretation Comments RPR RESULT (test code = NON-REACTIVE 3501) RPR TITER (test code = 3500) NOT INDIC. TITER [id number] 00:00:00 Test Item Value Reference Range Interpretation Comments TSH, THIRD GENERATION (test code 0.964 UIU/ML = 2821) [id number] 00:00:00 Test Item Value Reference Range Interpretation Comments TSH, THIRD GENERATION (test code 0.964 UIU/ML = 2821) [id number] 00:00:00 Test Item Value Reference Range Interpretation Comments TSH, THIRD GENERATION (test code 0.964 UIU/ML = 2821) [id number] 00:00:00 Test Item Value Reference Range Interpretation Comments PROLACTIN (test code = 2800) 13.5 NG/ML [id number] 00:00:00 Test Item Value Reference Range Interpretation Comments PROLACTIN (test code = 2800) 13.5 NG/ML GC AND CHLAMYDIA, AMPLIFIED, [id number] 00:00:00 Test Item Value Reference Range Interpretation Comments GONORRHEA, NAAT (test code = 22098) NEGATIVE CHLAMYDIA, NAAT (test code = 78862) NEGATIVE GC AND CHLAMYDIA, AMPLIFIED, [id number] 00:00:00 Test Item Value Reference Range Interpretation Comments GONORRHEA, NAAT (test code = 43683) NEGATIVE CHLAMYDIA, NAAT (test code = 70366) NEGATIVE HIV AB/AG COMBO RFLX [id number] 00:00:00 Test Item Value Reference Range Interpretation Comments HIV 1/2 4TH GEN, RFLX CONF (test NON-REACTIVE code = 3514) HIV AB/AG COMBO RFLX [id number] 00:00:00 Test Item Value Reference Range Interpretation Comments HIV 1/2 4TH GEN, RFLX CONF (test NON-REACTIVE code = 3514) [id number] 00:00:00 Test Item Value Reference Range Interpretation Comments RPR RESULT (test code = NON-REACTIVE 3501) RPR TITER (test code = 3500) NOT INDIC. TITER [id number] 00:00:00 Test Item Value Reference Range Interpretation Comments RPR RESULT (test code = NON-REACTIVE 3501) RPR TITER (test code = 3500) NOT INDIC. TITER [id number] 00:00:00 Test Item Value Reference Range Interpretation Comments RPR RESULT (test code = NON-REACTIVE 3501) RPR TITER (test code = 3500) NOT INDIC. TITER GC AND CHLAMYDIA AMPLIFIED, [id number] 00:00:00 Test Item Value Reference Range Interpretation Comments GONORRHEA, TMA (test code = 06778) NEGATIVE CHLAMYDIA, TMA (test code = 04682) NEGATIVE GC AND CHLAMYDIA AMPLIFIED, [id number] 00:00:00 Test Item Value Reference Range Interpretation Comments GONORRHEA, TMA (test code = 41724) NEGATIVE CHLAMYDIA, TMA (test code = 48120) NEGATIVE PAP TEST, THINPREP, [id number] 00:00:00 Test Item Value Reference Range Interpretation Comments SOURCE: (test code = Endocervical 8001) SLIDES: (test code = 1 8011) LMP: (test code = 04/21/2021 8021) SPECIMEN ADEQUACY: (NOTE) (test code = 83003) INTERPRETATION: (test NILM/NO EPITH. code = 22971) ABNORMALITY;SEE BELOW OTHER COMMENTS: (test (NOTE) code = 8081) PASSENGER TRAIN BRAKER: BETTY (test code = 8101) COBY CRAIG(ASCP)IAC LOCATION: (test code (NOTE) = 69218) CPT: (test code = (NOTE) 8140) PAP TEST, THINPREP, [id number] 00:00:00 Test Item Value Reference Range Interpretation Comments SOURCE: (test code = Endocervical 8000) SLIDES: (test code = 1 8011) LMP: (test code = 04/21/2021 8021) SPECIMEN ADEQUACY: (NOTE) (test code = 35147) INTERPRETATION: (test NILM/NO EPITH. code = 03956) ABNORMALITY;SEE BELOW OTHER COMMENTS: (test (NOTE) code = 8081) PASSENGER TRAIN BRAKER: BETTY (test code = 8101) CBOY CRAIG(ASCP)IAC LOCATION: (test code (NOTE) = 51419) CPT: (test code = (NOTE) 8140) HPV HIGH RISK WITH GENOTYPE, [id number] 00:00:00 Test Item Value Reference Range Interpretation Comments HPV HIGH RISK INTERP (test code = NEGATIVE 40773) HPV 16 (test code = 32291) NEGATIVE HPV 18 (test code = 30926) NEGATIVE HPV, HR, OTHER GENOTYPES (test code NEGATIVE = 63811) HPV HIGH RISK WITH GENOTYPE, [id number] 00:00:00 Test Item Value Reference Range Interpretation Comments HPV HIGH RISK INTERP (test code = NEGATIVE 31922) HPV 16 (test code = 27483) NEGATIVE HPV 18 (test code = 22271) NEGATIVE HPV, HR, OTHER GENOTYPES (test code NEGATIVE = 69494) GC AND CHLAMYDIA AMPLIFIED, [id number] 00:00:00 Test Item Value Reference Range Interpretation Comments GONORRHEA, TMA (test code = 76672) NEGATIVE CHLAMYDIA, TMA (test code = 70724) NEGATIVE PAP TEST, THINPREP, [id number] 00:00:00 Test Item Value Reference Range Interpretation Comments SOURCE: (test code = Endocervical 8000) SLIDES: (test code = 1 8011) LMP: (test code = 04/21/2021 8021) SPECIMEN ADEQUACY: (NOTE) (test code = 78262) INTERPRETATION: (test NILM/NO EPITH. code = 88448) ABNORMALITY;SEE BELOW OTHER COMMENTS: (test (NOTE) code = 8081) PASSENGER TRAIN BRAKER: BETTY (test code = 8101) COBY CRAIG(ASCP)IAC LOCATION: (test code (NOTE) = 56483) CPT: (test code = (NOTE) 8140) HPV HIGH RISK WITH GENOTYPE, [id number] 00:00:00 Test Item Value Reference Range Interpretation Comments HPV HIGH RISK INTERP (test code = NEGATIVE 77423) HPV 16 (test code = 04399) NEGATIVE HPV 18 (test code = 20043) NEGATIVE HPV, HR, OTHER GENOTYPES (test code NEGATIVE = 95446) GC AND CHLAMYDIA AMPLIFIED, [id number] 00:00:00 Test Item Value Reference Range Interpretation Comments GONORRHEA, TMA (test code = 69113) NEGATIVE CHLAMYDIA, TMA (test code = 86341) NEGATIVE GC AND CHLAMYDIA AMPLIFIED, [id number] 00:00:00 Test Item Value Reference Range Interpretation Comments GONORRHEA, TMA (test code = 99683) NEGATIVE CHLAMYDIA, TMA (test code = 36842) NEGATIVE PAP TEST, THINPREP, [id number] 00:00:00 Test Item Value Reference Range Interpretation Comments SOURCE: (test code = Endocervical 8001) SLIDES: (test code = 1 8011) LMP: (test code = 04/21/2021 8021) SPECIMEN ADEQUACY: (NOTE) (test code = 81467) INTERPRETATION: (test NILM/NO EPITH. code = 98138) ABNORMALITY;SEE BELOW OTHER COMMENTS: (test (NOTE) code = 8081) PASSENGER TRAIN BRAKER: BETTY (test code = 8101) COBY CRAIG(ASCP)IAC LOCATION: (test code (NOTE) = 75102) CPT: (test code = (NOTE) 8140) PAP TEST, THINPREP, [id number] 00:00:00 Test Item Value Reference Range Interpretation Comments SOURCE: (test code = Endocervical 8001) SLIDES: (test code = 1 8011) LMP: (test code = 04/21/2021 8021) SPECIMEN ADEQUACY: (NOTE) (test code = 39607) INTERPRETATION: (test NILM/NO EPITH. code = 53931) ABNORMALITY;SEE BELOW OTHER COMMENTS: (test (NOTE) code = 8081) PASSENGER TRAIN BRAKER: BETTY (test code = 8101) OCBY CRAIG(ASCP)IAC LOCATION: (test code (NOTE) = 90492) CPT: (test code = (NOTE) 8140) HPV HIGH RISK WITH GENOTYPE, [id number] 00:00:00 Test Item Value Reference Range Interpretation Comments HPV HIGH RISK INTERP (test code = NEGATIVE 00098) HPV 16 (test code = 87722) NEGATIVE HPV 18 (test code = 75734) NEGATIVE HPV, HR, OTHER GENOTYPES (test code NEGATIVE = 95421) HPV HIGH RISK WITH GENOTYPE, [id number] 00:00:00 Test Item Value Reference Range Interpretation Comments HPV HIGH RISK INTERP (test code = NEGATIVE 56472) HPV 16 (test code = 72828) NEGATIVE HPV 18 (test code = 15875) NEGATIVE HPV, HR, OTHER GENOTYPES (test code NEGATIVE = 57218) GC AND CHLAMYDIA AMPLIFIED, [id number] 00:00:00 Test Item Value Reference Range Interpretation Comments GONORRHEA, TMA (test code = 76393) NEGATIVE CHLAMYDIA, TMA (test code = 83317) NEGATIVE GC AND CHLAMYDIA AMPLIFIED, [id number] 00:00:00 Test Item Value Reference Range Interpretation Comments GONORRHEA, TMA (test code = 96449) NEGATIVE CHLAMYDIA, TMA (test code = 87534) NEGATIVE PAP TEST, THINPREP, [id number] 00:00:00 Test Item Value Reference Range Interpretation Comments SOURCE: (test code = Endocervical 8000) SLIDES: (test code = 1 8011) LMP: (test code = 04/21/2021 8021) SPECIMEN ADEQUACY: (NOTE) (test code = 06302) INTERPRETATION: (test NILM/NO EPITH. code = 69431) ABNORMALITY;SEE BELOW OTHER COMMENTS: (test (NOTE) code = 8081) PASSENGER TRAIN BRAKER: BETTY (test code = 8101) COBY CRAIG(ASCP)IAC LOCATION: (test code (NOTE) = 35508) CPT: (test code = (NOTE) 8140) PAP TEST, THINPREP, [id number] 00:00:00 Test Item Value Reference Range Interpretation Comments SOURCE: (test code = Endocervical 800) SLIDES: (test code = 1 8011) LMP: (test code = 04/21/2021 8021) SPECIMEN ADEQUACY: (NOTE) (test code = 83294) INTERPRETATION: (test NILM/NO EPITH. code = 84945) ABNORMALITY;SEE BELOW OTHER COMMENTS: (test (NOTE) code = 8081) PASSENGER TRAIN BRAKER: BETTY (test code = 8101) COBY CRAIG(ASCP)IAC LOCATION: (test code (NOTE) = 53576) CPT: (test code = (NOTE) 8140) HPV HIGH RISK WITH GENOTYPE, [id number] 00:00:00 Test Item Value Reference Range Interpretation Comments HPV HIGH RISK INTERP (test code = NEGATIVE 78209) HPV 16 (test code = 51280) NEGATIVE HPV 18 (test code = 50617) NEGATIVE HPV, HR, OTHER GENOTYPES (test code NEGATIVE = 39292) HPV HIGH RISK WITH GENOTYPE, [id number] 00:00:00 Test Item Value Reference Range Interpretation Comments HPV HIGH RISK INTERP (test code = NEGATIVE 12900) HPV 16 (test code = 73894) NEGATIVE HPV 18 (test code = 11197) NEGATIVE HPV, HR, OTHER GENOTYPES (test code NEGATIVE = 42852) VAGINAL PATHOGENS DNA [id number] 00:00:00 Test Item Value Reference Range Interpretation Comments DEMIAN SPECIES (test code = 32884) NEGATIVE G. VAGINALIS (test code = 11058) POSITIVE T. VAGINALIS (test code = 79957) NEGATIVE VAGINAL PATHOGENS DNA [id number] 00:00:00 Test Item Value Reference Range Interpretation Comments DEMIAN SPECIES (test code = 97622) NEGATIVE G. VAGINALIS (test code = 95078) POSITIVE T. VAGINALIS (test code = 21851) NEGATIVE VAGINAL PATHOGENS DNA [id number] 00:00:00 Test Item Value Reference Range Interpretation Comments DEMIAN SPECIES (test code = 35295) NEGATIVE G. VAGINALIS (test code = 98128) POSITIVE T. VAGINALIS (test code = 08807) NEGATIVE VAGINAL PATHOGENS DNA [id number] 00:00:00 Test Item Value Reference Range Interpretation Comments DEMIAN SPECIES (test code = 32477) NEGATIVE G. VAGINALIS (test code = 12795) POSITIVE T. VAGINALIS (test code = 46918) NEGATIVE VAGINAL PATHOGENS DNA [id number] 00:00:00 Test Item Value Reference Range Interpretation Comments DEMIAN SPECIES (test code = 61123) NEGATIVE G. VAGINALIS (test code = 40684) POSITIVE T. VAGINALIS (test code = 45045) NEGATIVE VAGINAL PATHOGENS DNA [id number] 00:00:00 Test Item Value Reference Range Interpretation Comments DEMIAN SPECIES (test code = ) NEGATIVE G. VAGINALIS (test code = 85884) POSITIVE T. VAGINALIS (test code = 70705) NEGATIVE VAGINAL PATHOGENS DNA [id number] 00:00:00 Test Item Value Reference Range Interpretation Comments DEMIAN SPECIES (test code = ) NEGATIVE G. VAGINALIS (test code = 60164) POSITIVE T. VAGINALIS (test code = 82004) NEGATIVE HEMOGLOBIN [id number] 00:00:00 Test Item Value Reference Range Interpretation Comments HEMOGLOBIN A1c (test code = 72829) 5.3 % HEMOGLOBIN [id number] 00:00:00 Test Item Value Reference Range Interpretation Comments HEMOGLOBIN A1c (test code = 57825) 5.3 % HEMOGLOBIN [id number] 00:00:00 Test Item Value Reference Range Interpretation Comments HEMOGLOBIN A1c (test code = 22250) 5.3 % LIPID [id number] 00:00:00 Test Item Value Reference Range Interpretation Comments CHOLESTEROL (test code = 2210) 205 MG/DL TRIGLYCERIDES (test code = 2232) 66 MG/DL HDL CHOLESTEROL (test code = 2220) 46 MG/DL CALC LDL CHOL (test code = 2237) 143 MG/DL RISK RATIO LDL/HDL (test code = 3.11 RATIO 2238) LIPID [id number] 00:00:00 Test Item Value Reference Range Interpretation Comments CHOLESTEROL (test code = 2210) 205 MG/DL TRIGLYCERIDES (test code = 2232) 66 MG/DL HDL CHOLESTEROL (test code = 2220) 46 MG/DL CALC LDL CHOL (test code = 2237) 143 MG/DL RISK RATIO LDL/HDL (test code = 3.11 RATIO 2238) COMPREHENSIVE METABOLIC [id number] 00:00:00 Test Item Value Reference Range Interpretation Comments GLUCOSE (test code = 2217) 83 MG/DL BUN (test code = 2208) 6 MG/DL CREATININE (test code = 2214) 0.69 MG/DL eGFR AMER. (test code 131 ML/MIN/1.73 = 27202) eGFR NON- AMER. (test 113 ML/MIN/1.73 code = 70554) CALC BUN/CREAT (test code = 9 RATIO [...] ALKALINE PHOSPHATASE (test 75 U/L code = 220) AST (test code = 2218) 19 U/L ALT (test code = 2219) 18 U/L COMPREHENSIVE METABOLIC [id number] 00:00:00 Test Item Value Reference Range Interpretation Comments GLUCOSE (test code = 2217) 83 MG/DL BUN (test code = 2208) 6 MG/DL CREATININE (test code = 2214) 0.69 MG/DL eGFR AMER. (test code 131 ML/MIN/1.73 = 89054) eGFR NON- AMER. (test 113 ML/MIN/1.73 code = 04028) CALC BUN/CREAT (test code = 9 RATIO 223) SODIUM (test code = 2231) 137 MEQ/L [...] (test code = 2219) 18 U/L HEMOGLOBIN [id number] 00:00:00 Test Item Value Reference Range Interpretation Comments HEMOGLOBIN A1c (test code = 06515) 5.3 % HEMOGLOBIN [id number] 00:00:00 Test Item Value Reference Range Interpretation Comments HEMOGLOBIN A1c (test code = 53298) 5.3 % LIPID [id number] 00:00:00 Test Item Value Reference Range Interpretation Comments CHOLESTEROL (test code = 2210) 205 MG/DL TRIGLYCERIDES (test code = 2232) 66 MG/DL HDL CHOLESTEROL (test code = 2220) 46 MG/DL CALC LDL CHOL (test code = 2237) 143 MG/DL RISK RATIO LDL/HDL (test code = 3.11 RATIO 2238) COMPREHENSIVE METABOLIC [id number] 00:00:00 Test Item Value Reference Range Interpretation Comments GLUCOSE (test code = 2217) 83 MG/DL BUN (test code = 2208) 6 MG/DL CREATININE (test code = 2214) 0.69 MG/DL eGFR AMER. (test code 131 ML/MIN/1.73 = 12534) eGFR NON- AMER. (test 113 ML/MIN/1.73 code = 15496) CALC BUN/CREAT (test code = 9 RATIO [...] (test code = 2219) 18 U/L HEMOGLOBIN [id number] 00:00:00 Test Item Value Reference Range Interpretation Comments HEMOGLOBIN A1c (test code = 86120) 5.3 % HEMOGLOBIN [id number] 00:00:00 Test Item Value Reference Range Interpretation Comments HEMOGLOBIN A1c (test code = 58697) 5.3 % HEMOGLOBIN [id number] 00:00:00 Test Item Value Reference Range Interpretation Comments HEMOGLOBIN A1c (test code = 59339) 5.3 % LIPID [id number] 00:00:00 Test Item Value Reference Range Interpretation Comments CHOLESTEROL (test code = 2210) 205 MG/DL TRIGLYCERIDES (test code = 2232) 66 MG/DL HDL CHOLESTEROL (test code = 2220) 46 MG/DL CALC LDL CHOL (test code = 2237) 143 MG/DL RISK RATIO LDL/HDL (test code = 3.11 RATIO 2238) LIPID [id number] 00:00:00 Test Item Value Reference Range Interpretation Comments CHOLESTEROL (test code = 2210) 205 MG/DL TRIGLYCERIDES (test code = 2232) 66 MG/DL HDL CHOLESTEROL (test code = 2220) 46 MG/DL CALC LDL CHOL (test code = 2237) 143 MG/DL RISK RATIO LDL/HDL (test code = 3.11 RATIO 2238) COMPREHENSIVE METABOLIC [id number] 00:00:00 Test Item Value Reference Range Interpretation Comments GLUCOSE (test code = 2217) 83 MG/DL BUN (test code = 2208) 6 MG/DL CREATININE (test code = 2214) 0.69 MG/DL eGFR AMER. (test code 131 ML/MIN/1.73 = 38169) eGFR NON- AMER. (test 113 ML/MIN/1.73 code = 81465) CALC BUN/CREAT (test code = 9 RATIO [...] code = 2219) 18 U/L COMPREHENSIVE METABOLIC [id number] 00:00:00 Test Item Value Reference Range Interpretation Comments GLUCOSE (test code = 2217) 83 MG/DL BUN (test code = 2208) 6 MG/DL CREATININE (test code = 2214) 0.69 MG/DL eGFR AMER. (test code 131 ML/MIN/1.73 = 50745) eGFR NON- AMER. (test 113 ML/MIN/1.73 code = 92114) CALC BUN/CREAT (test code = 9 RATIO 2235) SODIUM (test code = 2231) 137 MEQ/L POTASSIUM (test code = 2228) 4.5 MEQ/L CHLORIDE (test code = 2215) 104 MEQ/L CARBON DIOXIDE (test code = 24 MEQ/L 2205) CALCIUM (test code = 2209) 9.9 MG/DL PROTEIN, TOTAL (test code = 7.2 G/DL 2228) ALBUMIN (test code = 220) 4.8 G/DL CALC GLOBULIN (test code = 2.4 G/DL 2239) CALC A/G RATIO (test code = 2.0 RATIO 2233) BILIRUBIN, TOTAL (test code = 0.2 MG/DL 2206) ALKALINE PHOSPHATASE (test 75 U/L code = 2204) AST (test code = 2218) 19 U/L ALT (test code = 2219) 18 U/L HEMOGLOBIN [id number] 00:00:00 Test Item Value Reference Range Interpretation Comments HEMOGLOBIN A1c (test code = 46774) 5.3 % HEMOGLOBIN [id number] 00:00:00 Test Item Value Reference Range Interpretation Comments HEMOGLOBIN A1c (test code = 38972) 5.3 % HEMOGLOBIN [id number] 00:00:00 Test Item Value Reference Range Interpretation Comments HEMOGLOBIN A1c (test code = 20836) 5.3 % LIPID [id number] 00:00:00 Test Item Value Reference Range Interpretation Comments CHOLESTEROL (test code = 2210) 205 MG/DL TRIGLYCERIDES (test code = 2232) 66 MG/DL HDL CHOLESTEROL (test code = 2220) 46 MG/DL CALC LDL CHOL (test code = 2237) 143 MG/DL RISK RATIO LDL/HDL (test code = 3.11 RATIO 2238) LIPID [id number] 00:00:00 Test Item Value Reference Range Interpretation Comments CHOLESTEROL (test code = 2210) 205 MG/DL TRIGLYCERIDES (test code = 2232) 66 MG/DL HDL CHOLESTEROL (test code = 2220) 46 MG/DL CALC LDL CHOL (test code = 2237) 143 MG/DL RISK RATIO LDL/HDL (test code = 3.11 RATIO 2238) COMPREHENSIVE METABOLIC [id number] 00:00:00 Test Item Value Reference Range Interpretation Comments GLUCOSE (test code = 2217) 83 MG/DL BUN (test code = 2208) 6 MG/DL CREATININE (test code = 2214) 0.69 MG/DL eGFR AMER. (test code 131 ML/MIN/1.73 = 94658) eGFR NON- AMER. (test 113 ML/MIN/1.73 code = 35078) CALC BUN/CREAT (test code = 9 RATIO [...] code = 2219) 18 U/L COMPREHENSIVE METABOLIC [id number] 00:00:00 Test Item Value Reference Range Interpretation Comments GLUCOSE (test code = 2217) 83 MG/DL BUN (test code = 2208) 6 MG/DL CREATININE (test code = 2214) 0.69 MG/DL eGFR AMER. (test code 131 ML/MIN/1.73 = 95196) eGFR NON- AMER. (test 113 ML/MIN/1.73 code = 82486) CALC BUN/CREAT (test code = 9 RATIO [...] CALC GLOBULIN (test code = 2.4 G/DL 0) CALC A/G RATIO (test code = 2.0 RATIO 2233) BILIRUBIN, TOTAL (test code = 0.2 MG/DL 2206) ALKALINE PHOSPHATASE (test 75 U/L code = 2204) AST (test code = 2218) 19 U/L ALT (test code = 2219) 18 U/L CULTURE, [id number] 00:00:00 Test Item Value Reference Range Interpretation Comments CULTURE, ROUTINE (test SPECIMEN NUMBER: code = 07972) [id number] CULTURE, [id number] 00:00:00 Test Item Value Reference Range Interpretation Comments CULTURE, ROUTINE (test SPECIMEN NUMBER: code = 81167) [id number] CULTURE, [id number] 00:00:00 Test Item Value Reference Range Interpretation Comments CULTURE, ROUTINE (test SPECIMEN NUMBER: code = 63981) [id number] CULTURE, [id number] 00:00:00 Test Item Value Reference Range Interpretation Comments CULTURE, ROUTINE (test SPECIMEN NUMBER: code = 05962) [id number] CULTURE, [id number] 00:00:00 Test Item Value Reference Range Interpretation Comments CULTURE, ROUTINE (test SPECIMEN NUMBER: code = 16918) [id number] CULTURE, [id number] 00:00:00 Test Item Value Reference Range Interpretation Comments CULTURE, ROUTINE (test SPECIMEN NUMBER: code = 35146) [id number] CULTURE, [id number] 00:00:00 Test Item Value Reference Range Interpretation Comments CULTURE, ROUTINE (test SPECIMEN NUMBER: code = 92643) [id number] CULTURE, [id number] 00:00:00 Test Item Value Reference Range Interpretation Comments CULTURE, ROUTINE (test SPECIMEN NUMBER: code = 23498) [id number] CULTURE, [id number] 00:00:00 Test Item Value Reference Range Interpretation Comments CULTURE, ROUTINE (test SPECIMEN NUMBER: code = 35141) [id number] CULTURE, [id number] 00:00:00 Test Item Value Reference Range Interpretation Comments CULTURE, ROUTINE (test SPECIMEN NUMBER: code = 11574) [id number] CULTURE, [id number] 00:00:00 Test Item Value Reference Range Interpretation Comments CULTURE, ROUTINE (test SPECIMEN NUMBER: code = 24873) [id number] CULTURE, [id number] 00:00:00 Test Item Value Reference Range Interpretation Comments CULTURE, ROUTINE (test SPECIMEN NUMBER: code = 00109) [id number] CULTURE, [id number] 00:00:00 Test Item Value Reference Range Interpretation Comments CULTURE, ROUTINE (test SPECIMEN NUMBER: code = 36761) [id number] CULTURE, [id number] 00:00:00 Test Item Value Reference Range Interpretation Comments CULTURE, ROUTINE (test SPECIMEN NUMBER: code = 78751) [id number] CULTURE, [id number] 00:00:00 Test Item Value Reference Range Interpretation Comments CULTURE, ROUTINE (test SPECIMEN NUMBER: code = 83272) [id number] CULTURE, [id number] 00:00:00 Test Item Value Reference Range Interpretation Comments CULTURE, ROUTINE (test SPECIMEN NUMBER: code = 84176) [id number] CULTURE, [id number] 00:00:00 Test Item Value Reference Range Interpretation Comments CULTURE, ROUTINE (test SPECIMEN NUMBER: code = 32290) [id number] CULTURE, [id number] 00:00:00 Test Item Value Reference Range Interpretation Comments CULTURE, ROUTINE (test SPECIMEN NUMBER: code = 27757) [id number] CULTURE, [id number] 00:00:00 Test Item Value Reference Range Interpretation Comments CULTURE, ROUTINE (test SPECIMEN NUMBER: code = 26889) [id number] CULTURE, [id number] 00:00:00 Test Item Value Reference Range Interpretation Comments CULTURE, ROUTINE (test SPECIMEN NUMBER: code = 51673) [id number] CULTURE, [id number] 00:00:00 Test Item Value Reference Range Interpretation Comments CULTURE, ROUTINE (test SPECIMEN NUMBER: code = 66135) [id number] CULTURE, [id number] 00:00:00 Test Item Value Reference Range Interpretation Comments CULTURE, ROUTINE (test SPECIMEN NUMBER: code = 69534) [id number] TRICHOMONAS, URINE, [id number] 00:00:00 Test Item Value Reference Range Interpretation Comments TRICHOMONAS, URINE, AMP (test code = NEGATIVE 77290) TRICHOMONAS, URINE, [id number] 00:00:00 Test Item Value Reference Range Interpretation Comments TRICHOMONAS, URINE, AMP (test code = NEGATIVE 34526) TRICHOMONAS, URINE, [id number] 00:00:00 Test Item Value Reference Range Interpretation Comments TRICHOMONAS, URINE, AMP (test code = NEGATIVE 63667) TRICHOMONAS, URINE, [id number] 00:00:00 Test Item Value Reference Range Interpretation Comments TRICHOMONAS, URINE, AMP (test code = NEGATIVE 82321) TRICHOMONAS, URINE, [id number] 00:00:00 Test Item Value Reference Range Interpretation Comments TRICHOMONAS, URINE, AMP (test code = NEGATIVE 84133) TRICHOMONAS, URINE, [id number] 00:00:00 Test Item Value Reference Range Interpretation Comments TRICHOMONAS, URINE, AMP (test code = NEGATIVE 28161) TRICHOMONAS, URINE, [id number] 00:00:00 Test Item Value Reference Range Interpretation Comments TRICHOMONAS, URINE, AMP (test code = NEGATIVE 52586) HIV AB/AG COMBO RFLX [id number] 00:00:00 Test Item Value Reference Range Interpretation Comments HIV 1/2 4TH GEN, RFLX CONF (test NON-REACTIVE code = 3514) TRICHOMONAS, URINE, [id number] 00:00:00 Test Item Value Reference Range Interpretation Comments TRICHOMONAS, URINE, AMP (test code = POSITIVE 55363) TRICHOMONAS, URINE, [id number] 00:00:00 Test Item Value Reference Range Interpretation Comments TRICHOMONAS, URINE, AMP (test code = POSITIVE 85763) HIV AB/AG COMBO RFLX [id number] 00:00:00 Test Item Value Reference Range Interpretation Comments HIV 1/2 4TH GEN, RFLX CONF (test NON-REACTIVE code = 3514) ACUTE HEPATITIS [id number] 00:00:00 Test Item Value Reference Range Interpretation Comments HEPATITIS A IgM (test code = NON-REACTIVE 22593) HEPATITIS B CORE IgM (test code NON-REACTIVE = 4644) HEPATITIS B SURF AG (test code = NON-REACTIVE 2739) HEPATITIS C ANTIBODY (test code NON-REACTIVE = 4675) INTERPRETATION HEPATITIS A: (NOTE) (test code = 2552) INTERPRETATION HEPATITIS B: (NOTE) (test code = 03183) INTERPRETATION HEPATITIS C: (NOTE) (test code = 64941) ACUTE HEPATITIS [id number] 00:00:00 Test Item Value Reference Range Interpretation Comments HEPATITIS A IgM (test code = NON-REACTIVE 69497) HEPATITIS B CORE IgM (test code NON-REACTIVE = 4644) HEPATITIS B SURF AG (test code = NON-REACTIVE 2739) HEPATITIS C ANTIBODY (test code NON-REACTIVE = 4675) INTERPRETATION HEPATITIS A: (NOTE) (test code = 2552) INTERPRETATION HEPATITIS B: (NOTE) (test code = 39373) INTERPRETATION HEPATITIS C: (NOTE) (test code = 22970) [id number] 00:00:00 Test Item Value Reference Range Interpretation Comments RPR RESULT (test code = NON-REACTIVE 3501) RPR TITER (test code = 3500) NOT INDIC. TITER [id number] 00:00:00 Test Item Value Reference Range Interpretation Comments RPR RESULT (test code = NON-REACTIVE 3501) RPR TITER (test code = 3500) NOT INDIC. TITER [id number] 00:00:00 Test Item Value Reference Range Interpretation Comments RPR RESULT (test code = NON-REACTIVE 3501) RPR TITER (test code = 3500) NOT INDIC. TITER HIV AB/AG COMBO RFLX [id number] 00:00:00 Test Item Value Reference Range Interpretation Comments HIV 1/2 4TH GEN, RFLX CONF (test NON-REACTIVE code = 3514) TRICHOMONAS, URINE, [id number] 00:00:00 Test Item Value Reference Range Interpretation Comments TRICHOMONAS, URINE, AMP (test code = POSITIVE 08788) ACUTE HEPATITIS [id number] 00:00:00 Test Item Value Reference Range Interpretation Comments HEPATITIS A IgM (test code = NON-REACTIVE 21800) HEPATITIS B CORE IgM (test code NON-REACTIVE = 4644) HEPATITIS B SURF AG (test code = NON-REACTIVE 2739) HEPATITIS C ANTIBODY (test code NON-REACTIVE = 4675) INTERPRETATION HEPATITIS A: (NOTE) (test code = 2552) INTERPRETATION HEPATITIS B: (NOTE) (test code = 83770) INTERPRETATION HEPATITIS C: (NOTE) (test code = 17976) [id number] 00:00:00 Test Item Value Reference Range Interpretation Comments RPR RESULT (test code = NON-REACTIVE 3501) RPR TITER (test code = 3500) NOT INDIC. TITER [id number] 00:00:00 Test Item Value Reference Range Interpretation Comments RPR RESULT (test code = NON-REACTIVE 3501) RPR TITER (test code = 3500) NOT INDIC. TITER TRICHOMONAS, URINE, [id number] 00:00:00 Test Item Value Reference Range Interpretation Comments TRICHOMONAS, URINE, AMP (test code = POSITIVE 24836) HIV AB/AG COMBO RFLX [id number] 00:00:00 Test Item Value Reference Range Interpretation Comments HIV 1/2 4TH GEN, RFLX CONF (test NON-REACTIVE code = 3514) TRICHOMONAS, URINE, [id number] 00:00:00 Test Item Value Reference Range Interpretation Comments TRICHOMONAS, URINE, AMP (test code = POSITIVE 88544) HIV AB/AG COMBO RFLX [id number] 00:00:00 Test Item Value Reference Range Interpretation Comments HIV 1/2 4TH GEN, RFLX CONF (test NON-REACTIVE code = 3514) ACUTE HEPATITIS [id number] 00:00:00 Test Item Value Reference Range Interpretation Comments HEPATITIS A IgM (test code = NON-REACTIVE 34039) HEPATITIS B CORE IgM (test code NON-REACTIVE = 4644) HEPATITIS B SURF AG (test code = NON-REACTIVE 2739) HEPATITIS C ANTIBODY (test code NON-REACTIVE = 4675) INTERPRETATION HEPATITIS A: (NOTE) (test code = 2552) INTERPRETATION HEPATITIS B: (NOTE) (test code = 06398) INTERPRETATION HEPATITIS C: (NOTE) (test code = 17836) ACUTE HEPATITIS [id number] 00:00:00 Test Item Value Reference Range Interpretation Comments HEPATITIS A IgM (test code = NON-REACTIVE 77201) HEPATITIS B CORE IgM (test code NON-REACTIVE = 4644) HEPATITIS B SURF AG (test code = NON-REACTIVE 2739) HEPATITIS C ANTIBODY (test code NON-REACTIVE = 4675) INTERPRETATION HEPATITIS A: (NOTE) (test code = 2552) INTERPRETATION HEPATITIS B: (NOTE) (test code = 76574) INTERPRETATION HEPATITIS C: (NOTE) (test code = 10462) [id number] 00:00:00 Test Item Value Reference Range Interpretation Comments RPR RESULT (test code = NON-REACTIVE 3501) RPR TITER (test code = 3500) NOT INDIC. TITER [id number] 00:00:00 Test Item Value Reference Range Interpretation Comments RPR RESULT (test code = NON-REACTIVE 3501) RPR TITER (test code = 3500) NOT INDIC. TITER [id number] 00:00:00 Test Item Value Reference Range Interpretation Comments RPR RESULT (test code = NON-REACTIVE 3501) RPR TITER (test code = 3500) NOT INDIC. TITER HIV AB/AG COMBO RFLX [id number] 00:00:00 Test Item Value Reference Range Interpretation Comments HIV 1/2 4TH GEN, RFLX CONF (test NON-REACTIVE code = 3514) TRICHOMONAS, URINE, [id number] 00:00:00 Test Item Value Reference Range Interpretation Comments TRICHOMONAS, URINE, AMP (test code = POSITIVE 28290) HIV AB/AG COMBO RFLX [id number] 00:00:00 Test Item Value Reference Range Interpretation Comments HIV 1/2 4TH GEN, RFLX CONF (test NON-REACTIVE code = 3514) TRICHOMONAS, URINE, [id number] 00:00:00 Test Item Value Reference Range Interpretation Comments TRICHOMONAS, URINE, AMP (test code = POSITIVE 04679) ACUTE HEPATITIS [id number] 00:00:00 Test Item Value Reference Range Interpretation Comments HEPATITIS A IgM (test code = NON-REACTIVE 80991) HEPATITIS B CORE IgM (test code NON-REACTIVE = 4644) HEPATITIS B SURF AG (test code = NON-REACTIVE 2739) HEPATITIS C ANTIBODY (test code NON-REACTIVE = 4675) INTERPRETATION HEPATITIS A: (NOTE) (test code = 2552) INTERPRETATION HEPATITIS B: (NOTE) (test code = 21258) INTERPRETATION HEPATITIS C: (NOTE) (test code = 70827) ACUTE HEPATITIS [id number] 00:00:00 Test Item Value Reference Range Interpretation Comments HEPATITIS A IgM (test code = NON-REACTIVE 67918) HEPATITIS B CORE IgM (test code NON-REACTIVE = 4644) HEPATITIS B SURF AG (test code = NON-REACTIVE 2739) HEPATITIS C ANTIBODY (test code NON-REACTIVE = 4675) INTERPRETATION HEPATITIS A: (NOTE) (test code = 2552) INTERPRETATION HEPATITIS B: (NOTE) (test code = 98857) INTERPRETATION HEPATITIS C: (NOTE) (test code = 71195) [id number] 00:00:00 Test Item Value Reference Range Interpretation Comments RPR RESULT (test code = NON-REACTIVE 3501) RPR TITER (test code = 3500) NOT INDIC. TITER [id number] 00:00:00 Test Item Value Reference Range Interpretation Comments RPR RESULT (test code = NON-REACTIVE 3501) RPR TITER (test code = 3500) NOT INDIC. TITER [id number] 00:00:00 Test Item Value Reference Range Interpretation Comments RPR RESULT (test code = NON-REACTIVE 3501) RPR TITER (test code = 3500) NOT INDIC. TITER GC AND CHLAMYDIA AMPLIFIED, [id number] 00:00:00 Test Item Value Reference Range Interpretation Comments GONORRHEA, TMA (test code = 14388) POSITIVE CHLAMYDIA, TMA (test code = 25012) NEGATIVE GC AND CHLAMYDIA AMPLIFIED, [id number] 00:00:00 Test Item Value Reference Range Interpretation Comments GONORRHEA, TMA (test code = 79346) POSITIVE CHLAMYDIA, TMA (test code = 55235) NEGATIVE PAP TEST, THINPREP, [id number] 00:00:00 Test Item Value Reference Range Interpretation Comments SOURCE: (test code = Cervical/Endocervical 8001) SLIDES: (test code = 1 8011) LMP: (test code = 8021) 07/23/2019 SPECIMEN ADEQUACY: (test (NOTE) code = 89136) INTERPRETATION: (test NILM/NO EPITH. code = 09700) ABNORMALITY;SEE BELOW OTHER COMMENTS: (test (NOTE) code = 8081) PASSENGER TRAIN BRAKER: (test Eli code = 8101) COBY Reese(ASCP)[facility] QC TECHNOLOGIST: (test COBY WOLF(ASCP) code = 8111) LOCATION: (test code = (NOTE) 49660) CPT: (test code = 8140) (NOTE) PAP TEST, THINPREP, [id number] 00:00:00 Test Item Value Reference Range Interpretation Comments SOURCE: (test code = Cervical/Endocervical 8001) SLIDES: (test code = 1 8011) LMP: (test code = 8021) 07/23/2019 SPECIMEN ADEQUACY: (test (NOTE) code = 47184) INTERPRETATION: (test NILM/NO EPITH. code = 19537) ABNORMALITY;SEE BELOW OTHER COMMENTS: (test (NOTE) code = 8081) PASSENGER TRAIN BRAKER: (test Eli code = 8101) COBY Reese(ASCP)[facility] QC TECHNOLOGIST: (test PARK AAlesha LY,CT(ASCP) code = 8111) LOCATION: (test code = (NOTE) 91802) CPT: (test code = 8140) (NOTE) GC AND CHLAMYDIA AMPLIFIED, [id number] 00:00:00 Test Item Value Reference Range Interpretation Comments GONORRHEA, TMA (test code = 02650) POSITIVE CHLAMYDIA, TMA (test code = 72143) NEGATIVE PAP TEST, THINPREP, [id number] 00:00:00 Test Item Value Reference Range Interpretation Comments SOURCE: (test code = Cervical/Endocervical 8001) SLIDES: (test code = 1 8011) LMP: (test code = 8021) 07/23/2019 SPECIMEN ADEQUACY: (test (NOTE) code = 63981) INTERPRETATION: (test NILM/NO EPITH. code = 84604) ABNORMALITY;SEE BELOW OTHER COMMENTS: (test (NOTE) code = 8081) PASSENGER TRAIN BRAKER: (test Eli code = 8101) COBY Reese(ASCP)[facility] QC TECHNOLOGIST: (test PARK TALBOT,CT(ASCP) code = 8111) LOCATION: (test code = (NOTE) 70464) CPT: (test code = 8140) (NOTE) GC AND CHLAMYDIA AMPLIFIED, [id number] 00:00:00 Test Item Value Reference Range Interpretation Comments GONORRHEA, TMA (test code = 75823) POSITIVE CHLAMYDIA, TMA (test code = 99801) NEGATIVE GC AND CHLAMYDIA AMPLIFIED, [id number] 00:00:00 Test Item Value Reference Range Interpretation Comments GONORRHEA, TMA (test code = 44489) POSITIVE CHLAMYDIA, TMA (test code = 44877) NEGATIVE PAP TEST, THINPREP, [id number] 00:00:00 Test Item Value Reference Range Interpretation Comments SOURCE: (test code = Cervical/Endocervical 8001) SLIDES: (test code = 1 8011) LMP: (test code = 8021) 07/23/2019 SPECIMEN ADEQUACY: (test (NOTE) code = 32113) INTERPRETATION: (test NILM/NO EPITH. code = 38510) ABNORMALITY;SEE BELOW OTHER COMMENTS: (test (NOTE) code = 8081) PASSENGER TRAIN BRAKER: (test Eli code = 8101) COBY Reese(ASCP)[facility] QC TECHNOLOGIST: (test PARK TALBOTCT(ASCP) code = 8111) LOCATION: (test code = (NOTE) 64231) CPT: (test code = 8140) (NOTE) PAP TEST, THINPREP, [id number] 00:00:00 Test Item Value Reference Range Interpretation Comments SOURCE: (test code = Cervical/Endocervical 8001) SLIDES: (test code = 1 8011) LMP: (test code = 8021) 07/23/2019 SPECIMEN ADEQUACY: (test (NOTE) code = 21490) INTERPRETATION: (test NILM/NO EPITH. code = 55686) ABNORMALITY;SEE BELOW OTHER COMMENTS: (test (NOTE) code = 8081) PASSENGER TRAIN BRAKER: (test Eli code = 8101) COBY Reese(ASCP)[facility] QC TECHNOLOGIST: (test PARK TALBOTCT(ASCP) code = 8111) LOCATION: (test code = (NOTE) 10751) CPT: (test code = 8140) (NOTE) GC AND CHLAMYDIA AMPLIFIED, [id number] 00:00:00 Test Item Value Reference Range Interpretation Comments GONORRHEA, TMA (test code = 67876) POSITIVE CHLAMYDIA, TMA (test code = 73217) NEGATIVE GC AND CHLAMYDIA AMPLIFIED, [id number] 00:00:00 Test Item Value Reference Range Interpretation Comments GONORRHEA, TMA (test code = 87516) POSITIVE CHLAMYDIA, TMA (test code = 91106) NEGATIVE PAP TEST, THINPREP, [id number] 00:00:00 Test Item Value Reference Range Interpretation Comments SOURCE: (test code = Cervical/Endocervical 8001) SLIDES: (test code = 1 8011) LMP: (test code = 8021) 07/23/2019 SPECIMEN ADEQUACY: (test (NOTE) code = 82577) INTERPRETATION: (test NILM/NO EPITH. code = 35953) ABNORMALITY;SEE BELOW OTHER COMMENTS: (test (NOTE) code = 8081) PASSENGER TRAIN BRAKER: (test Eli code = 8101) COBY Reese(ASCP)[facility] QC TECHNOLOGIST: (test PARK Ram. LY,CT(ASCP) code = 8111) LOCATION: (test code = (NOTE) 86774) CPT: (test code = 8140) (NOTE) PAP TEST, THINPREP, [id number] 00:00:00 Test Item Value Reference Range Interpretation Comments SOURCE: (test code = Cervical/Endocervical 8001) SLIDES: (test code = 1 8011) LMP: (test code = 8021) 07/23/2019 SPECIMEN ADEQUACY: (test (NOTE) code = 88113) INTERPRETATION: (test NILM/NO EPITH. code = 14899) ABNORMALITY;SEE BELOW OTHER COMMENTS: (test (NOTE) code = 8081) PASSENGER TRAIN BRAKER: (test Eli code = 8101) COBY Reese(ASCP)[facility] QC TECHNOLOGIST: (test PARK A. LY,CT(ASCP) code = 8111) LOCATION: (test code = (NOTE) 78289) CPT: (test code = 8140) (NOTE) VAGINAL PATHOGENS DNA [id number] 00:00:00 Test Item Value Reference Range Interpretation Comments DEMIAN SPECIES (test code = ) NEGATIVE G. VAGINALIS (test code = 65084) POSITIVE T. VAGINALIS (test code = 08683) POSITIVE VAGINAL PATHOGENS DNA [id number] 00:00:00 Test Item Value Reference Range Interpretation Comments DEMIAN SPECIES (test code = 68149) NEGATIVE G. VAGINALIS (test code = 35201) POSITIVE T. VAGINALIS (test code = 05546) POSITIVE HPV HIGH RISK WITH GENOTYPE, [id number] 00:00:00 Test Item Value Reference Range Interpretation Comments HPV HIGH RISK INTERP (test code = POSITIVE 21236) HPV 16 (test code = 80783) NEGATIVE HPV 18 (test code = 95445) NEGATIVE HPV, HR, OTHER GENOTYPES (test code POSITIVE = 53076) HPV HIGH RISK WITH GENOTYPE, [id number] 00:00:00 Test Item Value Reference Range Interpretation Comments HPV HIGH RISK INTERP (test code = POSITIVE 90924) HPV 16 (test code = 94861) NEGATIVE HPV 18 (test code = 44473) NEGATIVE HPV, HR, OTHER GENOTYPES (test code POSITIVE = 57620) VAGINAL PATHOGENS DNA [id number] 00:00:00 Test Item Value Reference Range Interpretation Comments DEMIAN SPECIES (test code = ) NEGATIVE G. VAGINALIS (test code = 30656) POSITIVE T. VAGINALIS (test code = 94583) POSITIVE HPV HIGH RISK WITH GENOTYPE, [id number] 00:00:00 Test Item Value Reference Range Interpretation Comments HPV HIGH RISK INTERP (test code = POSITIVE 83004) HPV 16 (test code = 92595) NEGATIVE HPV 18 (test code = 43545) NEGATIVE HPV, HR, OTHER GENOTYPES (test code POSITIVE = 86332) VAGINAL PATHOGENS DNA [id number] 00:00:00 Test Item Value Reference Range Interpretation Comments DEMIAN SPECIES (test code = ) NEGATIVE G. VAGINALIS (test code = 34904) POSITIVE T. VAGINALIS (test code = 36685) POSITIVE VAGINAL PATHOGENS DNA [id number] 00:00:00 Test Item Value Reference Range Interpretation Comments DEMIAN SPECIES (test code = ) NEGATIVE G. VAGINALIS (test code = 83546) POSITIVE T. VAGINALIS (test code = 66588) POSITIVE HPV HIGH RISK WITH GENOTYPE, [id number] 00:00:00 Test Item Value Reference Range Interpretation Comments HPV HIGH RISK INTERP (test code = POSITIVE 66416) HPV 16 (test code = 39818) NEGATIVE HPV 18 (test code = 21297) NEGATIVE HPV, HR, OTHER GENOTYPES (test code POSITIVE = 76125) HPV HIGH RISK WITH GENOTYPE, [id number] 00:00:00 Test Item Value Reference Range Interpretation Comments HPV HIGH RISK INTERP (test code = POSITIVE 54449) HPV 16 (test code = 60368) NEGATIVE HPV 18 (test code = 94646) NEGATIVE HPV, HR, OTHER GENOTYPES (test code POSITIVE = 10085) VAGINAL PATHOGENS DNA [id number] 00:00:00 Test Item Value Reference Range Interpretation Comments DEMIAN SPECIES (test code = ) NEGATIVE G. VAGINALIS (test code = 09880) POSITIVE T. VAGINALIS (test code = 58541) POSITIVE VAGINAL PATHOGENS DNA [id number] 00:00:00 Test Item Value Reference Range Interpretation Comments DEMIAN SPECIES (test code = 69175) NEGATIVE G. VAGINALIS (test code = ) POSITIVE T. VAGINALIS (test code = ) POSITIVE HPV HIGH RISK WITH GENOTYPE, [id number] 00:00:00 Test Item Value Reference Range Interpretation Comments HPV HIGH RISK INTERP (test code = POSITIVE 34457) HPV 16 (test code = 22805) NEGATIVE HPV 18 (test code = 41796) NEGATIVE HPV, HR, OTHER GENOTYPES (test code POSITIVE = 71441) HPV HIGH RISK WITH GENOTYPE, [id number] 00:00:00 Test Item Value Reference Range Interpretation Comments HPV HIGH RISK INTERP (test code = POSITIVE 58971) HPV 16 (test code = 46750) NEGATIVE HPV 18 (test code = 26160) NEGATIVE HPV, HR, OTHER GENOTYPES (test code POSITIVE = 50048)
[2022-08-04] MEDS ORDERED: KETOROLAC 30 MG/ML INJ ONE (19:46)
[2022-08-04] MEDS ORDERED: dexAMETHasone 10 MG/ML VIAL ONE (19:46)
[2022-08-04] MEDS ORDERED: MORPHINE 4 MG/ML SYR ONE (19:46)
[2022-08-04 19:52] LABS: Urine Blood 2+ (Negative); Urine Glucose Negative (Negative); Urine Protein 1+ (Negative); Urine Specific Gravity 1.025 (1.005-1.030); Urine pH 5.5 (5.0-7.0)
[2022-08-04 20:36] LABS: Urine Specific Gravity/Preg 1.025 (1.005-1.030)
--- NOTE | 2022-08-04 20:55 | RAD REPORT ---
EXAM DESCRIPTION: RAD - Hip Right 2 View - 08/04/2022 8:42 pm CLINICAL HISTORY: PAIN COMPARISON: No comparisons FINDINGS: No acute fracture. No malalignment. No significant focal degenerative changes. IMPRESSION: No acute osseous abnormality involving the right hip.
--- NOTE | 2022-08-04 21:11 | ER ---
Nurse's Notes [facility] Name: Natasha Spann Age: 37 yrs Sex: Female : 1985 Arrival Date: 08/04/2022 Time: 18:57 Bed 5 Private MD: Diagnosis: UTI/ Urinary tract infection, site not specified;Sciatica, right side Presentation: 08/04 19:18 Chief complaint: Patient states: My right hip has been acting up for about a week now. kd3 It hurts from my right hip down to my foot. It is a sharp pain and my toes are tingling. Coronavirus screen: Vaccine status: Patient reports being unvaccinated. Ebola Screen: No symptoms or risks identified at this time. Initial Sepsis Screen: Does the patient meet any 2 criteria? No. Patient's initial sepsis screen is negative. Does the patient have a suspected source of infection? No. Patient's initial sepsis screen is negative. Risk Assessment: Do you want to hurt yourself or someone else? Patient reports no desire to harm self or others. Onset of symptoms was August 04, 2022. 19:18 Method Of Arrival: Ambulatory kd3 19:18 Acuity: EMILY 3 kd3 Triage Assessment: 19:20 General: Appears uncomfortable, Behavior is calm, cooperative. Pain: Complains of pain kd3 in right hip Pain radiates to right leg. Neuro: Level of Consciousness is awake, alert, obeys commands, Oriented to person, place, time, situation. Cardiovascular: Patient's skin is warm and dry. Respiratory: Airway is patent Trachea midline Respiratory effort is even, unlabored, Respiratory pattern is regular, symmetrical. 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 - Social history:: Smoking status: Patient reports the use of cigarette tobacco products, smokes one-half pack cigarettes per day. Screenin:22 Abuse screen: Denies threats or abuse. Denies injuries from another. Nutritional as6 screening: No deficits noted. Tuberculosis screening: No symptoms or risk factors identified. Fall Risk No fall in past 12 months (0 pts). 21:33 [facility] ED Fall Risk Assessment (Adult) Score/Fall Risk Level 0 - 2 = Low Risk. Humpty as6 Dumpty Scale Fall Assessment Tool (age< 18yrs) Fall Risk Score/ Level Low Fall Risk: </= 11 points. Assessment: 19:45 General: Appears uncomfortable, Behavior is calm, cooperative. Pain: Complains of pain as6 in right leg and pelvis and right hip Pain radiates to right leg Quality of pain is described as shooting. Neuro: Level of Consciousness is awake, alert, obeys commands, Oriented to person, place, time, situation. Cardiovascular: Capillary refill < 3 seconds Patient's skin is warm and dry. 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 Vital Signs: 19:18 BP 149 / 92; Pulse 97; Resp 18; Temp 98.8(O); Pulse Ox 100% ; Weight 68.04 kg; Height 5 kd3 ft. 8 in. (172.72 cm); Pain 10/10; 20:32 BP 105 / 61; Pulse 73; Resp 16 S; Pulse Ox 98% on R/A; as6 21:32 BP 107 / 66; Pulse 73; Resp 20 S; Pulse Ox 97% on R/A; as6 19:18 Body Mass Index 22.81 (68.04 kg, 172.72 cm) kd3 ED Course: 18:57 Patient arrived in ED. as 19:20 Triage completed. kd3 19:20 Arm band placed on right wrist. kd3 19:22 Ole Lassiter PA is PHCP. cp 19:22 Ole Epstein MD is Attending Physician. cp 19:23 Sheri Kinsey, JONY is Primary Nurse. kr3 20:43 XRAY Hip RIGHT 2 view In Process Unspecified. EDMS 21:32 Placed in gown. Bed in low position. Call light in reach. Side rails up X 1. as6 21:32 No provider procedures requiring assistance completed. Patient did not have IV access as6 during this emergency room visit. Administered Medications: 19:51 Drug: Ketorolac 60 mg Route: IM; Site: right ventrogluteal; as6 21:29 Follow up: Response: No adverse reaction as6 19:51 Drug: Decadron (dexamethasone) 10 mg Route: IM; Site: right ventrogluteal; as6 21:29 Follow up: Response: No adverse reaction as6 19:51 Drug: morphine 4 mg Route: IM; Site: right ventrogluteal; as6 21:29 Follow up: Response: No adverse reaction as6 21:29 Drug: Lidoderm Patch 5 % (700 mg/patch) 1 patches Route: Topical; Site: affected area; as6 21:29 Follow up: Response: No adverse reaction as6 Medication: 21:33 VIS not applicable for this client. as6 Outcome: 21:10 Discharge ordered by MD. julieta 21:32 Discharged to home ambulatory. as6 21:32 Condition: stable 21:32 Discharge instructions given to patient, Instructed on discharge instructions, follow up and referral plans. medication usage, Demonstrated understanding of instructions, follow-up care, medications, Prescriptions given X 3. 21:33 Patient left the ED. as6 Signatures: Dispatcher [employer] Hailey Raines Corey, PA PA cp Slawson, Ashby, RN RN as6 Daysi Soni, RN RN kd3 Sheri Kinsey RN RN kr3
--- NOTE | 2022-08-04 21:11 | EDPHYS ---
Physician Documentation [facility] Name: Natasha Spann Age: 37 yrs Sex: Female : 1985 Arrival Date: 08/04/2022 Time: 18:57 Bed 5 Private MD: ED Physician Ole Epstein HPI: 08/04 19:45 This 37 yrs old Female presents to ER via Ambulatory with complaints of Hip Pain, cp Numbness. 19:45 The patient or guardian reports pain. The patient is able to self ambulate. The patient cp is able to bear their full body weight. The patient's discomfort radiates to the down back of right leg. The complaints affect the right hip. Onset: The symptoms/episode began/occurred 1 week(s) ago. 19:45 Associated signs and symptoms: Pertinent positives: dysuria, right low back and right cp buttock pain, Pertinent negatives: abdominal pain, fever, incontinence, weakness, numbness. 19:45 Severity of symptoms: in the emergency department the symptoms are unchanged, despite cp home interventions. 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 - Social history:: Smoking status: Patient reports the use of cigarette tobacco products, smokes one-half pack cigarettes per day. ROS: 19:50 Constitutional: Negative for body aches, chills, fever, poor PO intake. cp 19:50 Eyes: Negative for injury, pain, redness, and discharge. cp 19:50 Neck: Negative for pain with movement, pain at rest, stiffness. 19:50 Cardiovascular: Negative for chest pain, palpitations. 19:50 Respiratory: Negative for cough, shortness of breath, wheezing. 19:50 Abdomen/GI: Negative for abdominal pain, nausea, vomiting, and diarrhea. 19:50 Back: Positive for pain at rest, pain with movement, of the right low back and right buttock, Negative for injury or acute deformity, decreased range of motion. 19:50 : Positive for urinary symptoms, Negative for difficulty urinating, bladder incontinence. 19:50 MS/extremity: Positive for right hip pain, Negative for injury or acute deformity, decreased range of motion. 19:50 Neuro: Negative for altered mental status, headache, numbness, tingling, weakness. 19:50 All other systems are negative. Exam: 19:55 Constitutional: The patient appears in no acute distress, alert, awake, non-toxic, well cp developed, well nourished, uncomfortable. 19:55 Head/Face: Normocephalic, atraumatic. cp 19:55 Eyes: Periorbital structures: appear normal, Conjunctiva: normal, no exudate, no injection, Sclera: no appreciated abnormality, Lids and lashes: appear normal, bilaterally. 19:55 ENT: External ear(s): are unremarkable, Nose: is normal, Mouth: Lips: moist, Oral mucosa: moist, Posterior pharynx: Airway: no evidence of obstruction, patent. 19:55 Neck: ROM/movement: is normal, is supple, without pain, no range of motions limitations. 19:55 Chest/axilla: Inspection: normal. 19:55 Cardiovascular: Rate: normal. 19:55 Respiratory: the patient does not display signs of respiratory distress, Respirations: normal, no use of accessory muscles, no retractions, labored breathing, is not present. 19:55 Abdomen/GI: Inspection: abdomen appears normal, Palpation: abdomen is soft and non-tender, in all quadrants. 19:55 Back: pain, that is moderate, of the right low back and right buttock, ROM is painful, with all movement. 19:55 Musculoskeletal/extremity: ROM: limited passive range of motion due to pain, in the right hip, Pulses: noted to be 2+ in the right dorsalis pedis artery, the right leg Sensation intact. left above the knee amputation. 19:55 Skin: no rash present. 19:55 Neuro: Orientation: to person, place \T\ time. Mentation: is normal, Gait: is steady. Vital Signs: 19:18 BP 149 / 92; Pulse 97; Resp 18; Temp 98.8(O); Pulse Ox 100% ; Weight 68.04 kg; Height 5 kd3 ft. 8 in. (172.72 cm); Pain 10/10; 20:32 BP 105 / 61; Pulse 73; Resp 16 S; Pulse Ox 98% on R/A; as6 21:32 BP 107 / 66; Pulse 73; Resp 20 S; Pulse Ox 97% on R/A; as6 19:18 Body Mass Index 22.81 (68.04 kg, 172.72 cm) kd3 MDM: 19:27 Patient medically screened. 21:10 Data reviewed: vital signs, nurses notes, lab test result(s), radiologic studies, plain cp films, and as a result, I will discharge patient. 21:10 Counseling: I had a detailed discussion with the patient and/or guardian regarding: the cp historical points, exam findings, and any diagnostic results supporting the discharge/admit diagnosis, lab results, radiology results, to return to the emergency department if symptoms worsen or persist or if there are any questions or concerns that arise at home. Response to treatment: the patient's symptoms have markedly improved after treatment, and as a result, I will discharge patient. 08/04 19:52 Order name: Urine Dipstick-Ancillary; Complete Time: 20:57 EDNE 08/04 20:57 Interpretation: Normal except: UBLD 2+; UPROT 1+; UESTR 1+. 08/04 19:56 Order name: Urine --Ancillary (enter results); Complete Time: 21:14 08/04 21:14 Interpretation: Reviewed. 08/04 19:37 Order name: XRAY Hip RIGHT 2 view; Complete Time: 20:57 08/04 20:57 Interpretation: Report reviewed. 08/04 19:37 Order name: Urine Dipstick-Ancillary (obtain specimen); Complete Time: 19:52 08/04 19:37 Order name: Urine Test (obtain specimen); Complete Time: 19:52 cp Administered Medications: 19:51 Drug: Ketorolac 60 mg Route: IM; Site: right ventrogluteal; as6 21:29 Follow up: Response: No adverse reaction as6 19:51 Drug: Decadron (dexamethasone) 10 mg Route: IM; Site: right ventrogluteal; as6 21:29 Follow up: Response: No adverse reaction as6 19:51 Drug: morphine 4 mg Route: IM; Site: right ventrogluteal; as6 21:29 Follow up: Response: No adverse reaction as6 21:29 Drug: Lidoderm Patch 5 % (700 mg/patch) 1 patches Route: Topical; Site: affected area; as6 21:29 Follow up: Response: No adverse reaction as6 Disposition Summary: 08/04/22 21:10 Discharge Ordered Location: Home cp Problem: new cp Symptoms: have improved cp Condition: Stable cp Diagnosis - UTI/ Urinary tract infection, site not specified cp - Sciatica, right side cp Followup: cp - With: Private Physician - When: 2 - 3 days - Reason: Worsening of condition Discharge Instructions: - Discharge Summary Sheet cp - Sciatica cp - Urinary Tract Infection, Adult cp - Back Exercises cp Forms: - Medication Reconciliation Form cp - Thank You Letter cp - Antibiotic Education cp - Prescription Opioid Use cp - Work release form as6 Prescriptions: - Lidoderm 5 % Topical adhesive patch,medicated - apply 1 patch by TOPICAL route once daily As needed; 10 patch; Refills: 0, cp Product Selection Permitted - Medrol (Mc) 4 mg Oral Tablets, Dose Pack - take 1 tablet by ORAL route as directed - follow package instructions; 1 cp packet; Refills: 0, Product Selection Permitted - Macrobid 100 mg Oral Capsule - take 1 capsule by ORAL route every 12 hours for 7 days; 14 capsule; Refills: 0, cp Product Selection Permitted - methocarbamol 500 mg Oral Tablet - take 1 tablet by ORAL route 3 times per day As needed; 30 tablet; Refills: 0, cp Product Selection Permitted Signatures: Dispatcher [employer] Ole Rogers PA PA cp Slawson, Ashby RN RN as6 Daysi Soni RN RN kd3
[2022-08-04] MEDS ORDERED: LIDOCAINE 4% PATCH ONE (21:27)
[2022-08-04 21:37] VITALS: TEMP 98.8
[2022-08-04 21:40] VITALS: BP 107/66; O2SAT 97
== END 2022-08-04 21:33 | disposition home or self-care (01) ==
LOC: ER 18:56
DX: M54.31 Sciatica, right side (principal); N39.0 Urinary tract infection, site not specified; F17.210 Nicotine dependence, cigarettes, uncomplicated; Z88.1 Allergy status to other antibiotic agents; Z88.8 Allergy status to other drugs, medicaments and biological substances; Z91.048 Other nonmedicinal substance allergy status
CPT/HCPCS: 81025; 81003; 73502; 96372; 99283; J2001; J1100

== ENCOUNTER 2024-08-18 08:04 | Emergency (ER) | payer OTHER ==
[2024-08-18] MEDS ORDERED: KETOROLAC 30 MG/ML INJ ONE (08:28)
[2024-08-18] MEDS ORDERED: GABAPENTIN 300 MG CAP ONE (08:28)
[2024-08-18 09:39] LABS: Sqamous Epithelial <5 /HPF (None Seen); Urine Bacteria None Seen /HPF (<20); Urine Bilirubin NEGATIVE (Negative); Urine Blood Negative (Negative); Urine Clarity Clear (Clear); Urine Color Light-Yellow (Yellow); Urine Culture Reflex Order NOT NEEDED; Urine Glucose NEGATIVE (Negative); Urine Ketones NEGATIVE (Negative); Urine Microscopic Reflex YN ORDER UMIC; Urine Nitrite NEGATIVE (Negative); Urine Protein NEGATIVE (Negative); Urine RBC <5 /HPF (None Seen); Urine Urobilinogen Normal (Normal); Urine WBC <5 /HPF (<5)
--- NOTE | 2024-08-18 09:58 | RAD REPORT ---
EXAMINATION: CT LUMBAR SPINE WITHOUT CONTRAST CLINICAL INDICATION: Female, 39 years old. PAIN TECHNIQUE: Axial CT images were obtained through the lumbar spine in soft tissue and bone windows wit hout intravenous contrast. Coronal and Sagittal reformatted images were created from the data set. One or more of the following dose reduction techniques were used: Automated exposure control, adjustm ent of the mA and/ or kV according to patient size, and/or iterative reconstruction. Unless otherwise specified, incidental findings do not require dedicated imaging follow-up. ND1103. COMPARISON: No prior exam. FINDINGS: For purposes of this dictation, it is assumed that there are 5 non rib-bearing lumbar type vertebrae, and the most caudal fully segmented lumbar vertebra is labeled L5. ALIGNMENT: The lumbar spine demonstrates normal alignment without scoliosis or spondylolisthesis. BONES: No significant soft tissue abnormalities. No aggressive osseous lesions. DISCS: Intervertebral disc space heights are maintained. LEVELS: No significant spinal canal or neural foraminal stenosis. No visualized abnormality within th e spinal canal. SOFT TISSUE: No soft tissue abnormalities. IMPRESSION: No acute lumbar spine abnormalities.
--- NOTE | 2024-08-18 10:19 | ER ---
Nurse's Notes [facility] Name: Natasha Spann Age: 39 yrs Sex: Female : 1985 Arrival Date: 08/18/2024 Time: 08:04 Bed 11 Private MD: Diagnosis: Low back pain;Other injury of muscle, fascia and tendon of lower back Presentation: 08/18 08:11 Chief complaint: Patient states: R low back/ hip pain that began 2 weeks ago. ss Coronavirus screen: Client denies travel out of the [place] in the last 14 days. Ebola Screen: Patient denies exposure to infectious person. Patient denies travel to an Ebola-affected area in the 21 days before illness onset. Initial Sepsis Screen: Does the patient have a suspected source of infection? No. Patient's initial sepsis screen is negative. 08:11 Method Of Arrival: Ambulatory ss 08:18 Initial Sepsis Screen: Does the patient meet any 2 criteria? No. Patient's initial ss sepsis screen is negative. Risk Assessment: Do you want to hurt yourself or someone else? Patient reports no desire to harm self or others. Onset of symptoms is unknown. 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 - Social history:: Smoking status: Reported history of juuling and/or vaping. - Family history:: not pertinent. - Hospitalizations: : No recent hospitalization is reported. Screenin:49 Abuse screen: Denies threats or abuse. Denies injuries from another. Nutritional ss screening: No deficits noted. Tuberculosis screening: Never had TB. Assessment: 08:11 General: Appears in no apparent distress. Behavior is calm, cooperative. Pain: ss Complains of pain in R hip Pain currently is 7 out of 10 on a pain scale. Quality of pain is described as aching, tender, Is continuous. 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 Cardiovascular: Chest pain is denied. Respiratory: Airway is patent Respiratory effort is even, unlabored, Respiratory pattern is regular, symmetrical. GI: Patient currently denies diarrhea, nausea, vomiting. : Denies burning with urination, urinary frequency. Derm: Skin is pink, warm \T\ dry. normal. Musculoskeletal: L BKA noted. 09:00 Reassessment: NAD at this time. ss 10:03 Reassessment: Dr. Santo at bedside discussing results and plan of care with patient. ss Vital Signs: 08:11 BP 167 / 116; Pulse 82; Resp 16; Temp 98.1(TE); Pulse Ox 100% ; ss ED Course: 08:06 Patient arrived in ED. mr 08:07 Gregor Santo MD is Attending Physician. rn 08:12 Arm band placed on right wrist. ss 08:18 Triage completed. ss 08:52 Radiology exam delayed due to test not completed at this time. sm9 09:24 Urinalysis w/ reflexes Sent. cc6 09:24 PREGU Sent. cc6 09:51 CT Lumbar Spine Wo Con In Process Unspecified. EDMS 10:02 Fabiola Carreon, RN is Primary Nurse. ss 10:49 Patient has correct armband on for positive identification. Bed in low position. ss 10:49 No provider procedures requiring assistance completed. Patient did not have IV access ss during this emergency room visit. Administered Medications: 08:33 Drug: Gabapentin PO 300 mg PO once Route: PO; ss 10:50 Follow up: Response: No adverse reaction ss 08:33 Drug: Ketorolac IM 30 mg IM once {Note: Pt requested R gluteus as preferred location ss for injection.} Route: IM; Site: right gluteus; 10:50 Follow up: Response: No adverse reaction ss Medication: 08:11 VIS not applicable for this client. ss Outcome: 10:19 Discharge ordered by MD. rn 10:49 Discharged to home ambulatory, ss 10:49 Condition: good 10:49 Discharge instructions given to patient, Instructed on discharge instructions, follow up and referral plans. medication usage, Demonstrated understanding of instructions, follow-up care, medications, Prescriptions given X 2, 10:51 Patient left the ED. ss Signatures: Dispatcher [employer] EDMS Belinda Justice, Gregor Nazario MD MD rn Blanchard, Shelby, RN RN ss McGilbery, Sarah sm9 Sunita Jusitce cc6
--- NOTE | 2024-08-18 10:19 | EDPHYS ---
Physician Documentation [facility] Name: Natasha Spann Age: 39 yrs Sex: Female : 1985 Arrival Date: 08/18/2024 Time: 08:04 Bed 11 Private MD: ED Physician Gregor Santo HPI: 08/18 08:56 This 39 yrs old Female presents to ER via Ambulatory with complaints of Hip Pain. rn 08:56 The patient or guardian reports pain. The complaints affect the buttocks and right leg. rn Onset: The symptoms/episode began/occurred 1 week(s) ago. Modifying factors: The symptoms are alleviated by nothing, the symptoms are aggravated by any movement. Severity of symptoms: At their worst the symptoms were moderate, in the emergency department the symptoms are unchanged. The patient has experienced similar episodes in the past. Patient reports chronic sciatic pain on right side, fell 1 to 2 weeks ago and thinks aggravated her back pain. Reports right lower back pain that radiates to the buttocks but not down the leg. Patient reports struck right knee directly during fall but started having back pain immediately. Was not seen for this fall. Denies midline back pain. No bowel or bladder issues. Patient has chronic back pain.. 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 - Social history:: Smoking status: Reported history of juuling and/or vaping. - Family history:: not pertinent. - Hospitalizations: : No recent hospitalization is reported. ROS: 08:56 Constitutional: Negative for fever, chills, and weight loss, Cardiovascular: Negative rn for chest pain, palpitations, and edema, Respiratory: Negative for shortness of breath, cough, wheezing, and pleuritic chest pain, Abdomen/GI: Negative for abdominal pain, nausea, vomiting, diarrhea, and constipation, Back: Positive for low back pain MS/Extremity: Negative for injury and deformity, Skin: Negative for injury, rash, and discoloration, Neuro: Negative for headache, weakness, numbness, tingling, and seizure, Exam: 08:56 Constitutional: This is a well developed, well nourished patient who is awake, alert, rn and in no acute distress. Ambulatory to triage. Abdomen/GI: Soft, nontender Back: No spinal tenderness. Mild muscular tenderness right above right buttocks MS/ Extremity: Pulses equal, no cyanosis. Neurovascular intact. Full, normal range of motion. Equal circumference. Neuro: Awake and alert, GCS 15, oriented to person, place, time, and situation. Motor strength 5/5 in all extremities. Sensory grossly intact. Cerebellar exam normal. Normal gait. Vital Signs: 08:11 BP 167 / 116; Pulse 82; Resp 16; Temp 98.1(TE); Pulse Ox 100% ; ss MDM: 08:07 Medical Screening Exam initiated rn 10:17 Differential diagnosis: bursitis, arthritis, strain. Data reviewed: vital signs, nurses rn notes, radiologic studies, CT scan, and as a result, I will discharge patient. Counseling: I had a detailed discussion with the patient and/or guardian regarding the historical points, exam findings, and any diagnostic results supporting the discharge/admit diagnosis, radiology results, the need for outpatient follow up, to return to the emergency department if symptoms worsen or persist or if there are any questions or concerns that arise at home. Response to treatment: the patient's symptoms have mildly improved after treatment, and as a result, I will discharge patient. Special discussion: I discussed with the patient/guardian in detail that at this point there is no indication for admission to the hospital. It is understood, however, that if the symptoms persist or worsen the patient needs to return immediately for re-evaluation. 08/18 08:26 Order name: Urinalysis w/ reflexes; Complete Time: 10: eb 08/18 08:26 Order name: PREGU; Complete Time: 10: eb 08/18 08:20 Order name: CT Lumbar Spine Wo Con; Complete Time: 10:01 ss Administered Medications: 08:33 Drug: Gabapentin PO 300 mg PO once Route: PO; ss 10:50 Follow up: Response: No adverse reaction ss 08:33 Drug: Ketorolac IM 30 mg IM once {Note: Pt requested R gluteus as preferred location ss for injection.} Route: IM; Site: right gluteus; 10:50 Follow up: Response: No adverse reaction ss Disposition Summary: 08/18/24 10:19 Discharge Ordered Notes: Location: Home rn Problem: new rn Symptoms: have improved rn Condition: Stable rn Diagnosis - Low back pain rn - Other injury of muscle, fascia and tendon of lower back rn Followup: rn - With: Private Physician - When: As needed - Reason: Recheck today's complaints, Re-evaluation by your physician Discharge Instructions: - Discharge Summary Sheet rn - Acute Back Pain, Adult rn - Musculoskeletal Pain rn Forms: - Medication Reconciliation Form rn - Antibiotic 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
[2024-08-18 11:00] VITALS: BP 167/116; TEMP 98.1; O2SAT 100
== END 2024-08-18 10:51 | disposition home or self-care (01) ==
LOC: ER 08:04
DX: S39.092A Other injury of muscle, fascia and tendon of lower back, initial encounter (principal); Z89.512 Acquired absence of left leg below knee
CPT/HCPCS: 72131; 81001; 81025; 96372; 99284

== ENCOUNTER 2024-10-19 11:35 | Emergency (ER) | payer OTHER ==
--- NOTE | 2024-10-19 12:39 | RAD REPORT ---
EXAM: Knee Left 3 View INDICATION: eval R knee/amputation site COMPARISON: 03/16/2024 FINDINGS: Status post [id number] amputation. No fracture. No evidence of osteomyelitis. Similar sclerosis a t the lateral tibial condyle. Other: n/a IMPRESSION: No fracture. No evidence of osteomyelitis. Status post below the knee amputation.
--- NOTE | 2024-10-19 12:42 | ER ---
Nurse's Notes [facility] Name: Natasha Spann Age: 39 yrs Sex: Female : 1985 Arrival Date: 10/19/2024 Time: 11:35 Bed 7 Private MD: Diagnosis: Pain in left leg Presentation: 10/19 11:46 Chief complaint: Patient states: Pain to LLE stump that began 2-3 weeks ago. redness ss noted to area. Coronavirus screen: Client denies travel out of the [place] in the last 14 days. Ebola Screen: Patient denies exposure to infectious person. Patient denies travel to an Ebola-affected area in the 21 days before illness onset. Initial Sepsis Screen: Does the patient meet any 2 criteria? No. Patient's initial sepsis screen is negative. Does the patient have a suspected source of infection? No. Patient's initial sepsis screen is negative. Risk Assessment: Do you want to hurt yourself or someone else? Patient reports no desire to harm self or others. Onset of symptoms was October 02, 2024. 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 - Infectious Disease History:: Denies. - Social history:: Smoking status: Reported history of juuling and/or vaping. Screenin:55 [facility] ED Fall Risk Assessment (Adult) History of falling in the last 3 months, aa5 including since admission No falls in past 3 months (0 pts) Confusion or Disorientation No (0 pts) Intoxicated or Sedated No (0 pts) Impaired Gait Yes (1 pt) Mobility Assist Device Used Yes (1 pt) Altered Elimination No (0 pt) Score/Fall Risk Level 0 - 2 = Low Risk Oriented to surroundings, Maintained a safe environment, Educated pt \T\ family on fall prevention, incl call for assistance when getting out of bed, Assessed \T\ reinforced patient's understanding of fall precautions. Abuse screen: Denies threats or abuse. Nutritional screening: No deficits noted. Tuberculosis screening: No symptoms or risk factors identified. Assessment: 11:55 General: Appears comfortable, Behavior is calm, cooperative. Pain: Complains of pain in aa5 Left BKA Pain currently is 6 out of 10 on a pain scale. Neuro: Level of Consciousness is awake, alert, obeys commands, Oriented to person, place, time, situation. Cardiovascular: Patient's skin is warm and dry. Respiratory: Airway is patent Respiratory effort is even, unlabored, Respiratory pattern is regular, symmetrical. GI: No signs and/or symptoms were reported involving the gastrointestinal system. : No signs and/or symptoms were reported regarding the genitourinary system. EENT: No signs and/or symptoms were reported regarding the EENT system. Derm: Skin is pink, warm \T\ dry. Musculoskeletal: Left BK. Growth that is approximately quater sized noted to left stump. 13:10 Reassessment: Patient appears in no apparent distress at this time. Patient and/or iw family updated on plan of care and expected duration. Pain level reassessed. Patient is alert, oriented x 3, equal unlabored respirations, skin warm/dry/pink. Vital Signs: 11:46 BP 130 / 75; Pulse 78; Resp 14; Temp 97.9(O); Pulse Ox 100% on R/A; Height 5 ft. 7 in. ss ; Pain 6/10; 11:46 Pain Scale: Adult ss ED Course: 11:37 Patient arrived in ED. sj2 11:38 Vernon Gallego MD is Attending Physician. ec2 11:41 Meghan Quinteros, JONY is Primary Nurse. aa5 11:48 Triage completed. ss 11:48 Arm band placed on right wrist. ss 11:55 Patient has correct armband on for positive identification. Bed in low position. Call aa5 light in reach. Side rails up X 1. Adult w/ patient. 12:21 Knee Left 3 View In Process Unspecified. EDMS 12:49 No provider procedures requiring assistance completed. aa5 13:10 Patient did not have IV access during this emergency room visit. iw Administered Medications: 13:05 Drug: Trimethoprim-Sulfamethoxazole PO (160 mg-800 mg (DS) 1 tablet PO once Route: PO; iw 13:06 Drug: Ketorolac IM 15 mg IM once Route: IM; Site: right ventrogluteal; iw Medication: 11:55 VIS not applicable for this client. aa5 Outcome: 12:41 Discharge ordered by . patricia 13:18 Discharged to home ambulatory, with family, iw 13:18 Condition: good 13:18 Discharge instructions given to patient, Instructed on discharge instructions, follow up and referral plans. medication usage, Demonstrated understanding of instructions, follow-up care, medications, Prescriptions given X 2, 13:19 Patient left the ED. iw Signatures: Dispatcher [employer] Anastasia Pablo RN RN Meghan Quinteros RN RN aa5 Fabiola Carreon RN RN Vernon Gallego MD MD ec2 Alicia Love sj2 Corrections: (The following items were deleted from the chart) 11:49 11:48 Social history: Smoking status: Patient denies any tobacco usage or history of. ssss
--- NOTE | 2024-10-19 12:42 | EDPHYS ---
Physician Documentation [facility] Name: Natasha Spann Age: 39 yrs Sex: Female : 1985 Arrival Date: 10/19/2024 Time: 11:35 Bed 7 Private MD: ED Physician Vernon Gallego HPI: 10/19 11:54 This 39 yrs old Female presents to ER via Ambulatory with complaints of Leg ec2 Pain. 11:54 Patient arrives today d/t concern for LLE pain. hx of BKA / reported osteo, ec2 complaining of increased pain. also reports a soft tissue swelling. no fevers or chills. 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 - Infectious Disease History:: Denies. - Social history:: Smoking status: Reported history of juuling and/or vaping. ROS: 11:56 Constitutional: as per hpi ec2 Exam: 11:56 Constitutional: GEN: NAD Head: atraumatic Eyes: EOMI Ears: External ears are ec2 normal. CV: regular rate LUNGS: no respiratory distress ABD: non-distended SKIN: no evidence of rashes MSK: no evidence of trauma, left lower extremity with BKA, soft tissue swelling appreciated with dried crusting overlying, no erythema, no warmth, no discharge noted. No fluctuance noted. Vital Signs: 11:46 BP 130 / 75; Pulse 78; Resp 14; Temp 97.9(O); Pulse Ox 100% on R/A; Height 5 ft. 7 in. ss ; Pain 6/10; 11:46 Pain Scale: Adult ss MDM: 11:43 Medical Screening Exam initiated ec2 11:57 Data reviewed: vital signs, nurses notes. ED course: Patient arrives today for right ec2 lower extremity complaints. Examination yields skin findings as above. Will obtain radiograph, suspect irritation secondary to the patient's prosthetic. Low suspicion for osteomyelitis or abscess given appearance, doubt septic joint. Will obtain radiograph to evaluate for bony pathology.. 12:41 ED course: X-ray negative for any acute pathology. Will prescribe the patient ec2 antibiotics given the dry crusting of overlying the soft tissue swelling as well as her history of osteomyelitis. Will discharge home per return precautions given.. 10/19 12:21 Order name: Knee Left 3 View; Complete Time: 12:40 EDMS Administered Medications: 13:05 Drug: Trimethoprim-Sulfamethoxazole PO (160 mg-800 mg (DS) 1 tablet PO once Route: PO; iw 13:06 Drug: Ketorolac IM 15 mg IM once Route: IM; Site: right ventrogluteal; iw Disposition Summary: 10/19/24 12:41 Discharge Ordered Notes: Location: Home ec2 Condition: Stable ec2 Diagnosis - Pain in left leg ec2 Followup: ec2 - With: Private Physician - When: - Reason: Re-evaluation by your physician Discharge Instructions: - Discharge Summary Sheet ec2 Forms: - Medication Reconciliation Form ec2 - Antibiotic Education ec2 - Prescription Opioid Use ec2 - Patient Portal Instructions ec2 - Leadership Thank You Letter ec2 Prescriptions: - Bactrim DS 800-160 mg Oral tablet - take 1 tablet ORAL route every 12 hours for 5 days; 10 tablet; Refills: 0, ec2 Product Selection Permitted - methocarbamol 500 mg Oral tablet - take 1 tablet ORAL route 4 times per day; 15 tablet; Refills: 0, Product ec2 Selection Permitted Signatures: Dispatcher [employer] Anastasia Pablo RN RN Fabiola Carreon RN RN Vernon Gallego MD MD ec2 Corrections: (The following items were deleted from the chart) 11:49 11:48 Social history: Smoking status: Patient denies any tobacco usage or history of. ssss 12:20 11:49 Knee Right 3 View+RAD.RAD.BRZ ordered. EDMT EDMS 12:23 11:54 Patient arrives today d/t concern for RLE pain. hx of BKA 2/2 reported osteo, ec2 complaining of increased pain. also reports a soft tissue swelling. no fevers or chills. ec2 12:23 11:56 Constitutional: GEN: NAD Head: atraumatic Eyes: EOMI Ears: External ears are ec2 normal. CV: regular rate LUNGS: no respiratory distress ABD: non-distended SKIN: no evidence of rashes MSK: no evidence of trauma, right lower extremity with BKA, soft tissue swelling appreciated with dried crusting overlying, no erythema, no warmth, no discharge noted. No fluctuance noted. ec2
[2024-10-19] MEDS ORDERED: SMZ./TMP. 800/160 MG TABLET ONE (12:53)
[2024-10-19] MEDS ORDERED: KETOROLAC 30 MG/ML INJ ONE (12:54)
[2024-10-19 13:24] VITALS: BP 130/75; TEMP 97.9; O2SAT 100
== END 2024-10-19 13:19 | disposition home or self-care (01) ==
LOC: ER 11:35
DX: M79.605 Pain in left leg (principal); Z89.512 Acquired absence of left leg below knee; F17.290 Nicotine dependence, other tobacco product, uncomplicated; Z88.8 Allergy status to other drugs, medicaments and biological substances

== ENCOUNTER 2024-12-30 15:56 | Emergency (ER) | payer OTHER ==
[2024-12-30 16:57] LABS: Specific Gravity 1.008 (1.005-1.030); Sqamous Epithelial <5 /HPF (None Seen); Urine Bacteria None Seen /HPF (<20); Urine Bilirubin NEGATIVE (Negative); Urine Blood Negative (Negative); Urine Clarity Turbid (Clear); Urine Color Colorless (Yellow); Urine Crystals Unidentified Few /HPF (None Seen); Urine Culture Reflex Order NOT NEEDED; Urine Glucose NEGATIVE (Negative); Urine Ketones NEGATIVE (Negative); Urine Microscopic Reflex YN ORDER UMIC; Urine Mucus Slight /HPF (None Seen); Urine Nitrite NEGATIVE (Negative); Urine Protein NEGATIVE (Negative); Urine RBC <5 /HPF (None Seen); Urine Urobilinogen Normal (Normal); Urine WBC <5 /HPF (<5)
[2024-12-30 17:44] LABS: Absolute Lymphocytes (CBC) 0.8 K/uL (0.7-4.9); Absolute Monocytes 0.2 K/uL (0.1-1.3); Absolute Neutrophil 5.7 K/uL (1.8-8.0); Basophils % 0.2 % (0-1.3); Eosinophils % 0.3 % (0-4.4); Hematocrit 39.8 % (36.0-45.0); Hemoglobin 13.8 g/dL (12.0-15.0); Lymphocytes % 11.8 % (15.3-44.8); MCHC 34.6 g/dL (32.0-36.0); MCV 92.3 fL (80-100); MPV 7.2 fL (7.6-11.3); Monocytes % 3.5 % (3.3-12.3); Neutrophils % 84.2 % (41.7-73.7); Platelets 257 thou/uL (152-406); RBC Red Blood Cell Count 4.31 M/uL (3.86-4.86); Red Cell Distribution Width 12.8 % (12.1-15.2)
[2024-12-30 18:03] LABS: Albumin 4.1 g/dL (3.4-5.0); Albumin/Globulin Ratio 1.1 (1.1-1.8); Anion Gap 8.7 mEq/L (5.0-15.0); Bilirubin Total 0.4 mg/dL (0.2-1.0); Globulin 3.7 g/dL (2.3-3.5); Potassium 3.7 mEq/L (3.5-5.1); Protein, Total 7.8 g/dL (6.4-8.2)
--- NOTE | 2024-12-30 18:07 | RAD REPORT ---
EXAMINATION: CT ABDOMEN AND PELVIS WITHOUT CONTRAST CLINICAL INDICATION: Abdominal pain TECHNIQUE: CT abdomen and pelvis was performed, as per department protocol. IV contrast and oral was not administered.Axial, sagittal and coronal reconstructions were obtained. One or more of the following dose reduction techniques were used: Automated exposure control, adjustment of the mA and/o r kV according to the patient size, and/or iterative reconstruction. Unless otherwise specified, incidental findings do not require dedicated imaging follow-up. [id number]. COMPARISON: 2021 FINDINGS: The lack of intravenous and oral contrast limits evaluation of solid organs, vessels and bowel. The liver, spleen, pancreas, adrenals and kidneys appear grossly normal No evidence of diverticulitis Normal appendix. No adnexal mass. Trace amount of free fluid may be physiologic IMPRESSION: No acute abnormality displayed
[2024-12-30] MEDS ORDERED: MORPHINE 2 MG/ML SYR ONE (18:48)
[2024-12-30] MEDS ORDERED: ONDANSETRON 4 MG/2 ML VIAL ONE (18:49)
--- NOTE | 2024-12-30 18:56 | EDPHYS ---
Physician Documentation [facility] Name: Natasha Spann Age: 39 yrs Sex: Female : 1985 Arrival Date: 12/30/2024 Time: 15:56 Bed 13 Private MD: ED Physician Taylor Stark HPI: 12/30 16:00 This 39 yrs old Female presents to ER via Unassigned with complaints of Abdominal Pain, kb Hip Pain. 16:00 Pt is a 39 year old female who presents for right hip pain that has been ongoing for kb some time, recently prescribed mobic. States she woke up with abd bloating, nausea and "cold sweats" today. Denies injury or trauma to hip. Denies diarrhea. 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 - Infectious Disease History:: Denies. - Social history:: Smoking status: unknown. ROS: 16:00 Constitutional: As per HPI kb Exam: 16:00 Constitutional: This is a well developed, well nourished patient who is awake, alert, kb and in no acute distress. Head/Face: Normocephalic, atraumatic. ENT: Moist Mucous membranes Cardiovascular: Regular rate Respiratory: Respirations even and unlabored. No increased work of breathing. Talking in full sentences Skin: Warm, dry with normal turgor. Normal color. Neuro: Awake and alert, GCS 15, oriented to person, place, time, and situation. 16:00 Abdomen/GI: Inspection: abdomen appears normal, Bowel sounds: normal, Palpation: soft, in all quadrants, mild abdominal tenderness, in all quadrants, Vital Signs: 16:17 BP 132 / 85; Pulse 99; Resp 16; Temp 98.5(O); Pulse Ox 100% on R/A; Weight 70.31 kg; hb Height 5 ft. 7 in. ; Pain 8/10; 18:55 BP 125 / 74; Pulse 71; Resp 16; Pulse Ox 100% on R/A; Pain 8/10; cm10 16:17 Body Mass Index 24.28 (70.31 kg, 170.18 cm) hb 16:17 Pain Scale: Adult hb 18:55 Pain Scale: Adult cm10 MDM: 15:59 Medical Screening Exam initiated kb 18:55 Differential diagnosis: diverticulitis, gastritis, gastroesophageal reflux disease, kb non-specific abd pain, gastroenteritis, hip strain, arthritis. Data reviewed: vital signs, nurses notes. Historians other than the Patient: Friend: friend. Counseling: I had a detailed discussion with the patient and/or guardian regarding the historical points, exam findings, and any diagnostic results supporting the discharge/admit diagnosis, lab results, radiology results, the need for outpatient follow up, a family practitioner, to return to the emergency department if symptoms worsen or persist or if there are any questions or concerns that arise at home. 12/30 16:04 Order name: CBC with Diff; Complete Time: 18:05 kb 12/30 16:04 Order name: CMP; Complete Time: 18:05 kb 12/30 16:04 Order name: Lipase; Complete Time: 18:05 kb 12/30 16:07 Order name: UA Rfx Gaurav Cult if indicated; Complete Time: 16:59 kb 12/30 16:07 Order name: Test, Urine; Complete Time: 16:59 kb 12/30 16:04 Order name: CT Abd/Pelvis - Without Contrast; Complete Time: 18:08 kb 12/30 16:04 Order name: IV Saline Lock; Complete Time: 17:40 kb 12/30 16:04 Order name: Labs collected and sent; Complete Time: 17:40 kb Administered Medications: 18:55 Drug: Ondansetron IVP 4 mg IVP once; over 2 minutes Route: IVP; Site: right antecubital;cm10 19:26 Follow up: Response: No adverse reaction cm10 18:55 Drug: morphine IVP or IV 2 mg IVP once over 4 mins Route: IVP; Infused Over: 4 mins; cm10 Site: right antecubital; 19:26 Follow up: Response: No adverse reaction cm10 18:55 Not Given (Physician Discretion): ns 0.9% 1000 ml IV at 1 bolus Per protocol; to be cm10 given as a bolus over 60 minutes Disposition Summary: 12/30/24 18:56 Discharge Ordered Notes: Location: Home kb Condition: Stable kb Diagnosis - Nausea kb - Abdominal pain, unspecified kb - Pain in right hip kb Followup: kb - With: Emergency Department - When: As needed - Reason: Worsening of condition Followup: kb - With: Private Physician - When: 2 - 3 days - Reason: Recheck today's complaints, Continuance of care, Re-evaluation by your physician Discharge Instructions: - Discharge Summary Sheet kb - Musculoskeletal Pain kb - Abdominal Pain, Adult, [id number] kb - Nausea, Adult, [id number] kb Forms: - Medication Reconciliation Form kb - Antibiotic Education kb - Prescription Opioid Use kb - Patient Portal Instructions kb - Leadership Thank You Letter kb Prescriptions: - Zofran 4 mg Oral tablet - take 1 tablet ORAL route every 6 hours As needed; 12 tablet; Refills: 0, kb Product Selection Permitted Signatures: Dispatcher [employer] EDReva Cuenca, MOISES-C SENIOR MECHANICAL DEVELOPMENT ENGINEER-Kirkb Vania Kilgore, RN RN Jaja Yadav, RN RN cm10 Corrections: (The following items were deleted from the chart) 16:07 16:07 UA Rfx Gaurav Cult if indicated+U.LAB.BRZ ordered. EDMS EDMS 16:07 16:07 Test, Urine+UC.LAB.BRZ ordered. EDMS EDMS
--- NOTE | 2024-12-30 18:56 | ER ---
Nurse's Notes [facility] Name: Natasha Spann Age: 39 yrs Sex: Female : 1985 Arrival Date: 12/30/2024 Time: 15:56 Bed 13 Private MD: Diagnosis: Nausea;Abdominal pain, unspecified;Pain in right hip Presentation: 12/30 16:17 Chief complaint: Worsening right hip pain x months, abdominal bloating and nausea since hb this morning. Coronavirus screen: At this time, the client does not indicate any symptoms associated with coronavirus-19. Ebola Screen: No symptoms or risks identified at this time. Initial Sepsis Screen: Does the patient meet any 2 criteria? No. Patient's initial sepsis screen is negative. Does the patient have a suspected source of infection? No. Patient's initial sepsis screen is negative. Risk Assessment: Do you want to hurt yourself or someone else? Patient reports no desire to harm self or others. Onset of symptoms was December 30, 2024. 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 - Infectious Disease History:: Denies. - Social history:: Smoking status: unknown. Screenin:56 [facility] ED Fall Risk Assessment (Adult) History of falling in the last 3 months, cm10 including since admission No falls in past 3 months (0 pts) Confusion or Disorientation No (0 pts) Intoxicated or Sedated No (0 pts) Impaired Gait No (0 pts) Mobility Assist Device Used No (0 pt) Altered Elimination No (0 pt) Score/Fall Risk Level 0 - 2 = Low Risk Oriented to surroundings, Maintained a safe environment, Hourly rounding (assess needs \T\ fall precautionary measures) done. Abuse screen: Denies threats or abuse. Denies injuries from another. Nutritional screening: No deficits noted. Tuberculosis screening: No symptoms or risk factors identified. Assessment: 18:55 General: Appears in no apparent distress. comfortable, Behavior is calm, cooperative. cm10 Pain: Complains of pain in abdomen Pain currently is 8 out of 10 on a pain scale. Neuro: No deficits noted. Level of Consciousness is awake, alert, obeys commands, Oriented to person, place, time, situation, Appropriate for age. Respiratory: No deficits noted. Airway is patent Respiratory effort is even, unlabored, Respiratory pattern is regular, symmetrical. GI: Reports lower abdominal pain. Vital Signs: 16:17 BP 132 / 85; Pulse 99; Resp 16; Temp 98.5(O); Pulse Ox 100% on R/A; Weight 70.31 kg; hb Height 5 ft. 7 in. ; Pain 8/10; 18:55 BP 125 / 74; Pulse 71; Resp 16; Pulse Ox 100% on R/A; Pain 8/10; cm10 16:17 Body Mass Index 24.28 (70.31 kg, 170.18 cm) hb 16:17 Pain Scale: Adult hb 18:55 Pain Scale: Adult cm10 ED Course: 15:59 Patient arrived in ED. al6 15:59 Reva Morales FNP-C [facility]. kb 15:59 Taylor Stark MD is Attending Physician. kb 16:19 Triage completed. hb 16:19 Arm band placed on. hb 16:39 Test, Urine Sent. zm 16:39 UA Rfx Gaurav Cult if indicated Sent. zm 16:55 Radiology exam delayed due to test not completed at this time. ls3 17:11 CT Abd/Pelvis - Without Contrast In Process Unspecified. EDMS 17:39 Inserted saline lock: 22 gauge in right antecubital area, using aseptic technique. nh2 Blood collected. Flushed with 10 mL NS. 17:40 CBC with Diff Sent. nh2 17:40 CMP Sent. nh2 17:40 Lipase Sent. nh2 18:55 Jaja Yadav, RN is Primary Nurse. cm10 18:56 Patient has correct armband on for positive identification. Bed in low position. Call cm10 light in reach. Side rails up X 1. Pulse ox on. NIBP on. 19:26 No provider procedures requiring assistance completed. IV discontinued, intact, cm10 bleeding controlled, No redness/swelling at site. Pressure dressing applied. Administered Medications: 18:55 Drug: Ondansetron IVP 4 mg IVP once; over 2 minutes Route: IVP; Site: right antecubital;cm10 19:26 Follow up: Response: No adverse reaction cm10 18:55 Drug: morphine IVP or IV 2 mg IVP once over 4 mins Route: IVP; Infused Over: 4 mins; cm10 Site: right antecubital; 19:26 Follow up: Response: No adverse reaction cm10 18:55 Not Given (Physician Discretion): ns 0.9% 1000 ml IV at 1 bolus Per protocol; to be cm10 given as a bolus over 60 minutes Medication: 18:56 VIS not applicable for this client. cm10 Outcome: 18:56 Discharge ordered by MD. jackson 19:26 Discharged to home ambulatory, with family, cm10 19:26 Condition: good 19:26 Discharge instructions given to patient, Instructed on discharge instructions, follow up and referral plans. medication usage, Demonstrated understanding of instructions, follow-up care, medications, Prescriptions given X 1, 19:27 Patient left the ED. cm10 Signatures: Dispatcher [employer] EDMS Reva Morales, CURRICULUM WRITER-C CURRICULUM WRITER-Ckb Vania Kilgore, Shey Multani RN 3 Eri Yadav Clarissa, RN RN cm10 Daniel Leroy, Negin Velasco6
[2024-12-30 20:23] VITALS: TEMP 98.5; O2SAT 100
[2024-12-30 20:24] VITALS: BP 125/74
== END 2024-12-30 19:27 | disposition home or self-care (01) ==
LOC: ER 15:56
DX: R11.0 Nausea (principal); R10.84 Generalized abdominal pain; M25.551 Pain in right hip
CPT/HCPCS: 85025; 81001; 36415; 81025; 83690; 80053; 74176; 96375; 96374; 99284; J2270; J2405